=== PATIENT | female | born 1955 | race Caucasian/White ===

== ENCOUNTER → 2018-03-08 09:46 | Outpatient (CLI) | payer BC, SELFPAY ==
--- NOTE | 2018-03-08 09:50 | MM_ITS ---
MM Dig screening mamm BI w/CAD ORDERING PHYSICIAN : Heidi Rivers PATIENT AGE: 62 years GENDER: Female COMPARISON: October 2012, December 2014 INDICATION: ITS.REASON: SCREENING. 62-year-old. No hormones no new complaints noncontributory family history TECHNIQUE: Standard CC and MLO images were obtained. R2 CAD reviewed. FINDINGS: Fairly low-density breast bilaterally with no dominant mass nor suspicious calcifications in either breast. Mild asymmetry. Area of minimal fibroglandular density upper-outer quadrant left breast appear similar and stable. RIGHT BREAST: No new findings. Minimal density upper-outer quadrant right LEFT BREAST: Stable area upper outer quadrant left breast. No change since 2012 IMPRESSION: Stable bilateral mammogram. No significant new areas concern. Bilateral follow-up one year recommended BI-RADS Category: 2 Benign Finding(s) RECOMMENDED FOLLOW-UP: 1YR 1 YEAR FOLLOW-UP (A letter has been sent to the patient regarding results of the study.)
== END ==
PROVIDERS: PCP Nurse Practitioner Family; Visit Provider Nurse Practitioner Family
DX: Z12.31 Encounter for screening mammogram for malignant neoplasm of breast (principal)
CPT/HCPCS: 77067

== ENCOUNTER → 2019-05-08 11:20 | Outpatient (CLI) | payer BC, SELFPAY ==
[2019-05-08 12:40] VITALS: PULSE 82; PULSE 84
== END ==
PROVIDERS: PCP Internal Medicine Adolescent Medicine; Visit Provider Internal Medicine Adolescent Medicine
DX: J44.9 Chronic obstructive pulmonary disease, unspecified (principal)
CPT/HCPCS: 94060; 94640; 94726; 94729

== ENCOUNTER → 2019-06-19 14:03 | Outpatient (CLI) | payer BC, SELFPAY ==
--- NOTE | 2019-06-19 14:06 | CT_ITS ---
PROCEDURE: CT LUNG SCREENING CLINICAL INDICATION: CURRENT TOBACCO USE Forty pack-year smoking history, asymptomatic COMPARISON: CXR CHEST(2 VIEWS-NOT PORTABLE) from 10/31/2015 TECHNIQUE: The exam was performed on a GE Light Speed [address] scanner using for lung cancer mGy CTDI. A low dose helical CT CHEST was performed on a multi-detector scanner. All CT scans at the facility use one or more dose reduction, viz: automated exposure control, ma/kV adjustment per patient size (including targeted exams where dose is matched to indication, i.e. head), or iterative reconstruction technique. The LDCT was performed in a facility that meets the criteria for the screening program. Data regarding this exam was submitted to ACR which is an approved registry. The order for this exam indicates that it came as a result of a lung cancer screening counseling shard decision-making visit that included all the elements required of such a visit including smoking cessation. The radiologist interpreting this exam meets the CMS criteria for the LDCT lung cancer screening program. The exam is reported using the Lung-RADS classification scale and reported to the ACR registry. NOTE: This study was performed for the specific purposes of lung cancer screening and is not an alternative to diagnostic chest CT. RADIATION DOSE: CTDI vol(CT dose Index-volume) = 2.90mG DLP (Dose Length Product) = 107.33 mGcm FINDINGS: COPD. There is a 1.8 by 1.8 by 1.5 cm spiculated nodule within the peripheral aspect of the left upper lobe posterior laterally. There are few spiculations extending to the pleural surface. This is suspicious for neoplasm.. This is in the apical posterior segment of the left upper lobe. No other lesions are evident. Other findings include coronary artery calcifications. There are few small mediastinal lymph nodes. No dominant adenopathy in the mediastinum or hilum. No acute bony findings. Upper abdominal images are unremarkable. IMPRESSION: Lung rads category 4 X, suspicious for malignancy Suggest PET-CT or tissue sampling for further evaluation. A small bronchus is noted to lead to this lesion and may be accessible for biopsy by bronchoscopy. Coronary artery disease Dictated by: Giancarlo Sadler MD 06/26/2019 10:38 Electronically signed by Giancarlo Sadler MD in [place] 06/26/2019 10:38
== END ==
PROVIDERS: PCP Internal Medicine Adolescent Medicine; Visit Provider Internal Medicine Adolescent Medicine
DX: Z87.891 Personal history of nicotine dependence (principal); Z12.2 Encounter for screening for malignant neoplasm of respiratory organs

== ENCOUNTER → 2019-06-26 14:32 | Outpatient (POV) | payer BC, SELFPAY | PROVIDERS: Visit Provider Specialist | DX: R20.2 Paresthesia of skin (principal); R20.0 Anesthesia of skin; M79.641 Pain in right hand | CPT/HCPCS: 95886; 95908 ==

== ENCOUNTER → 2019-11-16 13:24 | Outpatient (POV) | payer BC, SELFPAY ==
[2019-11-16 13:36] VITALS: BP 155/80; PULSE 97; RESP 18; O2SAT 98; BMI 30.2
--- NOTE | 2019-11-16 14:39 | HMH.PMCON ---
Assessment and Plan (1) Low back pain Current visit: Yes Status: Chronic Category: Medical Code(s): M54.5 - Low back pain (2) Lumbar radiculopathy Current visit: Yes Status: Chronic Category: Medical Code(s): M54.16 - Radiculopathy, lumbar region - Assessment and plan all Dx Assessment and Plan for all problems:: The patient has had this pain for quite some time. She has tried conservative therapies and failed. She has undergone physical therapy for greater than 6 weeks most notably within the last month. She continues with home stretching and chiropractic therapy. She uses ice and heat therapies and wxro-mep-zyiijrv anti-inflammatories. At this point I do think the patient would benefit from an MRI patient would like to proceed with imaging of her lumbar spine before proceeding with any type of injective therapy. We will schedule her for an MRI of her lumbar spine and see her back in the clinic afterwards to reassess her symptoms. Patient does not want to proceed with any type of injective therapy until she undergoes an MRI to determine the cause of her pain. We will see her back in the clinic afterwards to reassess her symptoms. She has been instructed to contact the clinic if she has any concerns before her next appointment. The patient and I specifically discussed risk factors for COVID19. These risks include, but are not limited to age greater than 60, heart or lung disease, diabetes, immunosuppression, and travel. We also discussed NSAIDs may worsen COVID19 infection or symptoms. Patient should not use NSAIDs to treat COVID19 signs or symptoms. Patient was also informed that any type of corticosteroid of any form (oral or injection) will decrease the patient's immune system response and may increase the likelihood of COVID19 infection [address] symptoms[address] Mckinley has reviewed this note and agrees with this plan of care. This note was dictated using voice recognition software and make contain errors or omissions. HPI - Data of Consult Patient: new to practice Consult date: 11/16/19 Requesting Physician: Priyanka Tadeo APRN Primary Care Provider: Jordy Akers MD - Consult Narrative Reason for consult: Back pain, intermittent leg pain History of present illness: Ms. Yeh is a 63 year old female who presents today for consultation for bilateral low back pain with intermittent radiation into her left leg. Patient says she has had this pain for greater than 30 years. Her pain is worse with standing and walking and sitting and laying down. Patient says that she was told by her primary care provider that it is SI joint related. Patient says that she does not feel that that is contributing to her pain. She has had chronic low back pain that has progressively worsened. She was told in the past that she has degenerative disc disease of her lumbar spine, however, she has not had any recent imaging. She is tried to get an MRI in the past and has been denied by her insurance. She says that the pain does intermittently radiate into her left leg causing worsening pain. Patient has had physical therapy over the last 6 weeks and has not gotten relief. She does use ice and heat therapies. She is also tried anti-inflammatories with no relief. Patient is currently seeing a chiropractor and performs home stretching programs. She rates her pain a 7 out of 10 today. CC: Priyanka Tadeo APRN [facility] History I have reviewed the patient's past medical history: Yes Medical History: Reports:: Coronary Artery Disease, Diabetes Mellitus Type 2, Gastroesophageal Reflux Disease(GERD), Hyperlipidemia, Hypertension, Lung Disease, Myocardial Infarction, Transient Ischemic Attacks (TIA) Denies:: Cancer, Diabetes Mellitus Type 1, Internal Pacemaker, MRSA, Seizures *Have you ever received a pneumonia vaccine?: Yes *Have you received a flu vaccine this season?: Yes Other Medical History: Reports: Arthritis Other Surgeries: Yes: Angioplast
== END ==
PROVIDERS: PCP Internal Medicine Adolescent Medicine; Visit Provider Clinical Nurse Specialist Family Health
DX: M54.5 Low back pain (principal); M54.16 Radiculopathy, lumbar region
CPT/HCPCS: 99202

== ENCOUNTER → 2019-12-06 10:45 | Outpatient (CLI) | payer BC, SELFPAY ==
--- NOTE | 2019-12-06 10:59 | MR_ITS ---
PROCEDURE: MR LUMBAR SPINE WO CON CLINICAL INDICATION: BACK PAIN LBP XYRS. INTERMITTENT LT LEG PAIN, NUMBNESS, AND TINGLING. NO PRIOR. COMPARISON: No exams were available for comparison TECHNIQUE: Standard multiplanar multiecho sequences are performed without contrast. 3-D MIP and myelographic images are also rendered and reviewed FINDINGS: The spinal cord ends at the L1 level. L1-L2: Unremarkable. L2-L3: Unremarkable. L3-L4: Mild facet and ligamentum hypertrophy with mild bilateral lateral recess and foraminal narrowing. L4-5: Unremarkable. L5-S1: There is degenerative disc disease with grade 1 spondylolisthesis of L5 on S1 with anterior listhesis of L5 of 7 mm. There is prominent facet hypertrophic changes. There is moderate to severe bilateral foraminal narrowing from the spondylolisthesis and facet hypertrophy. No extruded herniated disc or bony canal stenosis. There are small right renal cortical cyst noted. IMPRESSION: 1. There is degenerative disc disease at L5-S1 with grade 1 spondylolisthesis of L5 on S1 with anterior listhesis of L5 of 7 mm. There is prominent facet hypertrophic changes with moderate to severe bilateral foraminal narrowing from the spondylolisthesis and facet hypertrophy. 2. No extruded herniated disc or canal stenosis Dictated by: Giancarlo Sadler MD 12/07/2019 11:34 Electronically signed by Giancarlo Sadler MD in [place] 12/07/2019 11:34
== END ==
PROVIDERS: PCP Internal Medicine Adolescent Medicine; Visit Provider Clinical Nurse Specialist Family Health
DX: M54.5 Low back pain (principal)
CPT/HCPCS: 72148; 76376

== ENCOUNTER → 2019-12-14 10:40 | Outpatient (POV) | payer BC, SELFPAY ==
[2019-12-14 11:26] VITALS: BP 138/75; PULSE 95; RESP 18; TEMP 36.8; O2SAT 98; BMI 30.2
--- NOTE | 2019-12-14 11:49 | HMH.PAINSOAP ---
[facility] Pain Management SOAP Note Subjective:: Patient is a pleasant 64-year-old white female who presents today for follow-up after an MRI of her lumbar spine. She has been treated for low back pain with lumbar radiculopathy symptoms. Patient says she is tried and failed conservative therapies of physical therapy greater than 6 weeks along with a continued home stretching program and currently chiropractic therapy. Patient's pain is primarily in her low back with intermittent radiation into her left leg. This pain has been going on for greater than 30 years. Her pain is worse with standing and walking and sitting and laying down. She does say that she was told by her primary care provider that it is SI joint related, however, the patient is unsure that this is what is going on. She did request an MRI. We did perform the MRI. Patient I had a long discussion reviewing the MRI, patient says the only time she gets relief is if she leans forward. She does have spondylolisthesis and facet issues noted in her MRI, however, the patient says that she gets relief rather than pain with flexion and extension at her waist. Patient also is noted to have some foraminal narrowing on her MRI at L5-S1. Patient would like to try an epidural to see if this gives her relief. She does report that she did see the information regarding a mild procedure and would like to discuss a possible epidurogram at that time as well for determination of any spinal stenosis that may be treated Dr. mack. Does rate her pain a 10 out of 10 today. Review of Systems General: No recent weight changes, no fever, no sleep disturbances Respiratory: No cough, no shortness of air, no recurring pulmonary infections Cardiovascular/peripheral vascular: No chest pain, no palpitations, no edema, no shortness of breath Gastrointestinal: No new onset incontinence, normal bowel movements reported Genitourinary: No new onset incontinence Musculoskeletal: Low back pain, intermittent left leg pain Psychiatric: Normal mood/affect Neurological: [Denies weakness in extremities], [denies balance issues] Objective:: Physical exam General: Alert and oriented x3, no acute distress, pleasant and cooperative, [on room air] Lungs: Respirations even and unlabored, symmetrical chest expansion Eyes: PERRL Musculoskeletal: Flexion and extension of bar spine somewhat guarded secondary to pain, deep tendon reflexes normal, strength in upper and lower extremities [5/5], [abnormal gait noted] Neurological: Speech clear, road tester equal, no gross sensory deficit Assessment:: Degenerative disc disease lumbar spine with lumbar radiculopathy symptoms, lumbar spondylolisthesis, facet arthropathy Plan:: We will schedule the patient for a lumbar epidural steroid injection at L5-S1 with an epidurogram. She does take an aspirin 325 mg tablet p.o. daily. Otherwise, she is not on any anticoagulation therapy. We will see her back in the clinic after her injection to reassess her symptoms. She has been instructed to contact clinic if she has any concerns for next appointment. The patient and I specifically discussed risk factors for COVID19. These risks include, but are not limited to age greater than 60, heart or lung disease, diabetes, immunosuppression, and travel. We also discussed NSAIDs may worsen COVID19 infection or symptoms. Patient should not use NSAIDs to treat COVID19 signs or symptoms. Patient was also informed that any type of corticosteroid of any form (oral or injection) will decrease the patient's immune system response and may increase the likelihood of COVID19 [address] symptoms[address] Mckinley has reviewed this note and agrees with this plan of care. This note was dictated using voice recognition software and make contain errors or omissions. [facility] History I have reviewed the patient's past medical history: Yes Medical History: Reports:: Coronary Artery Disease, Diabetes Mellitus Type 2, Gas
== END ==
PROVIDERS: PCP Family Medicine; Visit Provider Clinical Nurse Specialist Family Health
DX: M51.16 Intervertebral disc disorders with radiculopathy, lumbar region (principal); M47.896 Other spondylosis, lumbar region; M12.88 Other specific arthropathies, not elsewhere classified, other specified site
CPT/HCPCS: 99212

== ENCOUNTER 2019-12-22 13:50 | Day surgery (SDC) | payer BC, SELFPAY ==
[2019-12-22 14:13] VITALS: BP 127/76; PULSE 94; RESP 18; TEMP 36.1; O2SAT 96; BMI 30.2
[2019-12-22 14:33] VITALS: BP 142/87; PULSE 89; RESP 18
[2019-12-22 14:36] VITALS: BP 142/88; PULSE 85; RESP 18; O2SAT 98
--- NOTE | 2019-12-22 14:42 | HMH.PMPROC ---
- Procedure Date: 12/22/19 Time: 14:42 Anesthesiologist:: Serafin Mckinley MD Complications:: None Pre-procedure Diagnosis:: Degenerative disc disease of lumbar spine with lumbar radiculopathy symptoms and spinal stenosis with neurogenic claudication symptoms Post-procedure Diagnosis:: Same Indications for Procedure:: This patient is a pleasant 64-year-old white female who we are treating for low back pain with lumbar radiculopathy symptoms. Based on MRI she does have significant spinal stenosis with ligamentum flavum hypertrophy. We will do a lumbar pleural steroid injection with epidurogram to assess levels of stenosis and help her with her pain symptoms. Procedure Details:: Lumbar epidural steroid injection under fluoroscopy Informed consent was obtained and the risk and benefits of the procedure was explained to the patient. The patient was taken to the procedure room. The patient was placed prone on the procedure table. The patient was prepped and draped in sterile fashion. C-arm fluoroscopy was used to view the lumbar spine. Skin and subcutaneous tissues were anesthetized using lidocaine. I placed an 18-gauge epidural needle and advanced into the L4-L5 interspace using fluoroscopic guidance and [id number] to air. After confirmation of needle placement in the epidural space with dye I injected 2 mL of lidocaine 1.5% with Depo-Medrol 80 mg. Patient tolerated the procedure well with no complications. Plan and Disposition:: Based on epidurogram she does have significant stenosis at L3-L4 and L4-L5. It is worst at L3-L4. We will seek approval and plan on minimally invasive lumbar decompression of L3-L4 and L4-L5. We will give her information on this today.
[2019-12-22 14:56] VITALS: BP 136/73; PULSE 87; RESP 20; O2SAT 96
== END 2019-12-22 14:57 | disposition home or self-care (01) ==
LOC: SC.PAINP 13:50
PROVIDERS: PCP Family Medicine; Visit Provider Anesthesiology
DX: M51.16 Intervertebral disc disorders with radiculopathy, lumbar region (principal); M48.062 Spinal stenosis, lumbar region with neurogenic claudication; I10 Essential (primary) hypertension; J44.9 Chronic obstructive pulmonary disease, unspecified; G43.909 Migraine, unspecified, not intractable, without status migrainosus; Z90.49 Acquired absence of other specified parts of digestive tract; Z85.118 Personal history of other malignant neoplasm of bronchus and lung; Z90.2 Acquired absence of lung [part of]; Z86.79 Personal history of other diseases of the circulatory system; Z88.6 Allergy status to analgesic agent; Z88.1 Allergy status to other antibiotic agents; Z88.8 Allergy status to other drugs, medicaments and biological substances; Z88.5 Allergy status to narcotic agent
CPT/HCPCS: 62323; J1040; Q9966

== ENCOUNTER → 2020-02-02 16:34 | Outpatient (CLI) | payer BC, SELFPAY ==
--- NOTE | 2020-02-02 16:43 | CT_ITS ---
PROCEDURE: CT ABDOMEN PELVIS WO/W CON Referring Doctor: Jordy Akers Patient Age:64Y CLINICAL INDICATION: LLQ PAIN 1 week 1 History of lung cancer diagnosed on May [address] chest COMPARISON: CR CXR CHEST(2 VIEWS-NOT PORTABLE) from 10/31/[address] LUNG SCREENING from 06/19/2019 MR MR LUMBAR SPINE WO CON from 12/06/2019 TECHNIQUE: Pre and post IV contrast imaging performed IV Contrast: 75ML OPTIRAY 350 Oral Contrast 20ml Gastroview Helical axial images obtained with sagittal and coronal reformats. All CT scans at the facility use one or more dose reduction, viz: automated exposure control, ma/kV adjustment per patient size (including targeted exams where dose is matched to indication, i.e. head), or iterative reconstruction technique. FINDINGS: Lower thorax: Linear density at the medial left base which likely reflects a combination of pleural and parenchymal scarring with atelectasis. If the patient has had a lobectomy I suspect is related the postsurgical changes left chest Heart normal size ABDOMEN: Liver: No masses or biliary dilatation. Gallbladder: Nondistended. No radio opaque stones. Common duct unremarkable Pancreas: No masses or peripancreatic fluid collections. Spleen: unremarkable Adrenals: Suspect small subtle 14.5 x 9 mm left adrenal nodule appears to be developing at the superior medial limb of left adrenal. (Axial images 28 postcontrast, 24 pre contrast). Right adrenal unremarkable and stable Kidneys/ureters: . No renal calculi/no urinary tract obstruction. Small low-density areas at both kidneys are most compatible with small cysts: . Right kidney: Small cysts on right-most evident is a 11 mm cyst mid to lower right kidney; tiny less than 6 mm cyst posterior lower pole. Tiny 5 mm cyst anterior upper pole Left kidney. Small cysts, most notable 11 mm cyst posterior cortex upper portion but tiny less than 5 mm cyst posterior midportion. Generous extra renal pelvis bilaterally. Ureters unremarkable PELVIS:. Uterus normal size. No adnexal masses left ovary normal size in visualized 2.5 cm. Slightly generous pelvic veins but nonspecific. Bladder: Nondistended. No obvious stones or masses. . GI tract. ------- Fairly rapid passage of enteric contrast, to the level of the proximal sigmoid colon Stomach and small bowel unremarkable. Terminal ileum appears normal. Appendix is been removed Large bowel:. Colonic diverticulosis most evident at sigmoid colon followed by descending colon. No good acute diverticulitis. Of there are some large more prominent diverticulum along posterior aspect the descending colon with vessels and structures yielding appearance of upper normal stranding here posteriorly-of but favor normal with no good evidence of diverticulitis. -- Peritoneum: No abnormal fluid collections. No obvious inflammatory changes. No free air. Lymph nodes: No enlarged lymph nodes apparent.. Scattered tiny retroperitoneal and pelvic nodes but but no enlarged nodes Vasculature: No evidence of abdominal aortic aneurysm. Diffuse the atherosclerotic calcification aorta and iliac vessels;. Also notable atherosclerotic calcification at origin of left renal artery more so than right but a calcification throughout the splenic artery also noted. Coronary artery calcifications of also noted Bones: No acute fracture.. No osseous lesions identified bilateral spondylolysis with generous grade 1 spondylolisthesis L5 on S1. Degenerative disc and facet changes at this level SOFT TISSUES: Within the subcutaneous fat left lower quadrant, located just anterior to the left inguinal region is a nodule with associated surrounding stranding and inflammation. This u
[2020-02-02 16:52] LABS: Blood Urea Nitrogen 24 mg/dl (7-17); Estimated Glomerular Filt Rate 63 ml/min (>60); GFR (African American) 76 ML/MIN (>60)
== END ==
PROVIDERS: Visit Provider Internal Medicine Adolescent Medicine
DX: R10.32 Left lower quadrant pain (principal)
CPT/HCPCS: 36415; 74178; 82565; 84520; Q9967

== ENCOUNTER → 2020-02-07 13:23 | Outpatient (CLI) | payer BC, SELFPAY ==
[2020-02-07 13:52] LABS: Basophils # 0.1 K/mm3 (0-0.2); Basophils % 0.8 % (0.1-2.0); Eosinophils # 0.2 K/mm3 (0.0-0.4); Eosinophils % 1.8 % (0.1-12.0); Hematocrit 33.7 % (37.0-47.0); Lymphocytes # 2.4 K/mm3 (0.7-4.5); Lymphocytes % 23.8 % (10-50); Mean Corpuscular HGB Conc 32.8 g/dL (31.8-35.4); Mean Corpuscular Hemoglobin 26.8 pg (27.0-31.2); Mean Corpuscular Volume 81.8 fl (81-99); Mean Platelet Volume 8.1 fl (7.4-10.4); Monocytes # 0.6 K/mm3 (0.1-1.0); Monocytes % 5.6 % (1.7-9.3); Neutrophils # 6.8 K/mm3 (1.8-7.8); Neutrophils % 68.1 % (37.0-80.0); Platelet Count 297 K/mm3 (142-424); Red Blood Count 4.12 M/mm3 (4.20-5.40); Red Cell Distribution Width 16.2 % (11.5-17.5)
[2020-02-07 14:55] LABS: Chloride 103 mmol/L (98-107); Sodium 140 mmol/L (136-145)
[2020-02-07 14:59] LABS: Blood Urea Nitrogen 22 mg/dl (7-17); Calcium 9.6 mg/dl (8.4-10.2); Carbon Dioxide 28 mmol/L (22.0-30.0); Estimated Glomerular Filt Rate 56 ml/min (>60); GFR (African American) 68 ML/MIN (>60); Glucose 115 mg/dl (74-100)
[2020-02-07 17:44] LABS: Coronavirus 19 IgG Antibody Negative (Negative); Coronavirus 19 IgM Antibody Negative (Negative)
== END ==
PROVIDERS: Visit Provider Surgery
DX: R19.00 Intra-abdominal and pelvic swelling, mass and lump, unspecified site (principal); R22.2 Localized swelling, mass and lump, trunk
CPT/HCPCS: 36415; 80048; 85025; 86328

== ENCOUNTER 2020-02-09 09:41 | Day surgery (SDC) | payer BC, SELFPAY ==
[2020-02-08 13:08] VITALS: BMI 31.1
[2020-02-09] VITALS (12 sets, daily range): BP systolic 103–139; BP diastolic 52–78; PULSE 75–91; RESP 16–21; TEMP 36.4–36.8; O2SAT 92–96
[2020-02-09 10:19] LABS: POC Glucose,Bedside 118 (70-110)
--- NOTE | 2020-02-09 12:22 | P.OP_ITS ---
Date of procedure: 02/09/20 Pre-op Diagnosis:: Left lower abdominal wall mass (1.8 cm) Post-op Diagnosis:: Same Procedure performed:: Excision of 1.8 cm left lower abdominal wall mass Surgeon:: Bello Oseguera MD CERTIFIED DRIVER EXAMINER:: Robin Alexander Anesthesia: LMA Estimated blood loss (mL): 5 Operative findings:: Somewhat irregular firm mass in subcutaneous adipose tissue on the left lower abdominal wall Operative note:: After informed consent was obtained the patient was taken to the operating room and placed in the supine position. General anesthesia was induced and her abdomen was prepped and draped in a sterile fashion. After infiltration of local anesthetic an incision was made over the lesion. A combination of sharp dissection, electrocautery, and blunt dissection was utilized to dissect through the deeper subcutaneous adipose tissue. A somewhat irregular firm mass was excised from surrounding tissue and passed off for pathologic evaluation. Electrocautery was utilized to achieve hemostasis. The wound was thoroughly irrigated. The skin was then reapproximated utilizing 4-0 Monocryl in a running subcuticular fashion. Steri-Strips followed by a sterile compression dressing was applied. She was then transferred to recovery in stable condition after removal of her laryngeal mask airway. Condition: stable Disposition: PACU Specimens:: Left lower abdominal wall mass Complications:: No immediate
--- NOTE | 2020-02-09 12:28 | HMH.ANESCL ---
[facility] Anesthesia Checklist - Patient Identification Patient Identification: Arm Band, Verbal (Name & ) - Structural Data Admitted From: Home Planned Operative Procedure/s: ex ab wall mass Consent for Planned Operative Procedure(s) Verified: Yes Verified Documents: History and Physical - NPO Status Verified Time NPO: 00:00 - Chart Verification Results Verified: CBC, BMP - Additional verifications Patient : No Anesthesia Reactions: No Hx Blood Transfusions: No Blood Transfusion Reaction: No Cephalosporin Allergy: No Previous Colonoscopy: Yes - Cardiovascular Assessment Heart Sounds: S1 & S2 Pulse Strength: Baseline Pulse Rhythm: Regular Peripheral Edema: No - Airway Assessment C-Spine Mobility Assessed: Yes TMJ Mobility Assessed: Yes Dentition: Good Dentition - Neurological Assessment Level of Consciousness: Awake, Alert, Appropriate Hx Seizures: No Numbness or tingling in extremities: No - Anesthesia Plan Anesthesia Risk discussed: Yes Anesthesia Plan: Verified ASA Class: III Anesthesia Type: General [facility] History I have reviewed the patient's past medical history: Yes Medical History: Reports:: Cancer (adenocarcinoma lung), Coronary Artery Disease, Diabetes Mellitus Type 2, Gastroesophageal Reflux Disease(GERD), Hyperlipidemia, Hypertension, Lung Disease, Myocardial Infarction, Transient Ischemic Attacks (TIA) Denies:: Diabetes Mellitus Type 1, Internal Pacemaker, MRSA, Seizures *Have you ever received a pneumonia vaccine?: No *Have you received a flu vaccine this season?: No Other Medical History: Reports: Arthritis. Denies: Blood Transfusion Reaction Anesthesia experience/problems:: none Other Surgeries: Yes: Angioplasty, Appendectomy, Cardiac Catheterization, Colonoscopy. No: Pacemaker Amputation: No Fractures: No - *Social History Last grade of school completed: High school graduate Smoking Status: Former smoker Tobacco Type: cigarettes # Packs/Day (cigarettes): 1 Smoking End Date: 07/23/2019 Alcohol Intake: never Substance Use Type: other *Occupational Status:: retired Housing: house Household Members: spouse *Travel in the last 8 weeks: None Family Hx:: Unable to obtain
--- NOTE | 2020-02-09 12:29 | P.PN_ITS ---
[facility] Anesthesia Record Part I Intake, IV Amount: 400 Estimated blood loss (mL): 5 Urine output (mL): 0 Blood Products used (#): none Blood Pressure: 105/66 SaO2: 92 Pulse Rate: 83 Respiratory Rate: 20 Temperature: 97.8 F Patient is:: Drowsy, Nasal O2 Stable to PACU at:: 12:25
--- NOTE | 2020-02-09 13:24 | HMH.ANESII ---
[facility] Anesthesia Record Part II Discharge Time: 12:55 Destination: Surgical Day Care (OP Surgery) PACU nurse assessment reviewed?: Yes Patient Condition:: Good Anesthesia Complications:: None Swallowing reflex intact?: Yes Cyanosis?: No Blood Pressure: 113/68 Pulse Rate: 75 Temperature: 98.3 F Mental Status: Alert & Oriented Pain level:: 3 Nausea and/or vomitting:: None Intake, IV Amount: 25
== END 2020-02-09 13:45 | disposition home or self-care (01) ==
LOC: OR 09:43
PROVIDERS: PCP Internal Medicine Adolescent Medicine; Visit Provider Surgery
PROC: (CPT 22902; principal; 2020-02-09 11:00)
DX: C79.2 Secondary malignant neoplasm of skin (principal); C34.90 Malignant neoplasm of unspecified part of unspecified bronchus or lung; E11.9 Type 2 diabetes mellitus without complications; I25.10 Atherosclerotic heart disease of native coronary artery without angina pectoris; K21.9 Gastro-esophageal reflux disease without esophagitis; E78.5 Hyperlipidemia, unspecified; I10 Essential (primary) hypertension; I25.2 Old myocardial infarction; Z86.73 Personal history of transient ischemic attack (TIA), and cerebral infarction without residual deficits; M19.90 Unspecified osteoarthritis, unspecified site; Z90.49 Acquired absence of other specified parts of digestive tract; Z87.891 Personal history of nicotine dependence
CPT/HCPCS: 22902; 82962; 96374; J0131; J2405

== ENCOUNTER → 2020-06-26 09:10 | Outpatient (CLI) | payer BC, SELFPAY ==
[2020-06-26 10:14] LABS: Chloride 101 mmol/L (98-107); Sodium 139 mmol/L (136-145)
[2020-06-26 10:15] LABS: Potassium 4.4 mmoL/L (3.5-5.1)
[2020-06-26 10:17] LABS: Blood Urea Nitrogen 21 mg/dl (7-17); Estimated Glomerular Filt Rate 56 ml/min (>60); GFR (African American) 68 ML/MIN (>60)
[2020-06-26 10:18] LABS: Anion Gap 13.4 mEq/L (5-15); Calcium 10.2 mg/dl (8.4-10.2); Carbon Dioxide 29 mmol/L (22.0-30.0); Glucose 126 mg/dl (74-100)
[2020-06-26 10:35] LABS: Coronavirus 19 IgG Antibody Positive (Negative); Coronavirus 19 IgM Antibody Negative (Negative)
[2020-06-26 11:52] LABS: Basophils # 0.1 K/mm3 (0-0.2); Basophils % 0.8 % (0.1-2.0); Eosinophils # 0.2 K/mm3 (0.0-0.4); Eosinophils % 2.7 % (0.1-12.0); Hemoglobin 11.5 g/dL (12.2-16.2); Lymphocytes # 1.9 K/mm3 (0.7-4.5); Lymphocytes % 25.3 % (10-50); Mean Corpuscular HGB Conc 30.2 g/dL (31.8-35.4); Mean Corpuscular Hemoglobin 25.9 pg (27.0-31.2); Mean Corpuscular Volume 85.7 fl (81-99); Mean Platelet Volume 9.2 fl (7.4-10.4); Monocytes # 0.5 K/mm3 (0.1-1.0); Monocytes % 6.2 % (1.7-9.3); Neutrophils % 64.9 % (37.0-80.0); Platelet Count 344 K/mm3 (142-424); Red Blood Count 4.43 M/mm3 (4.20-5.40); Red Cell Distribution Width 16.1 % (11.5-17.5); White Blood Count 7.6 K/mm3 (4.8-10.8)
== END ==
PROVIDERS: Visit Provider Surgery
DX: Z01.812 Encounter for preprocedural laboratory examination (principal); C79.89 Secondary malignant neoplasm of other specified sites; Z20.822 Contact with and (suspected) exposure to COVID-19; Z86.16 Personal history of COVID-19
CPT/HCPCS: 36415; 80048; 85025; 86328

== ENCOUNTER 2020-06-28 10:32 | Day surgery (SDC) | payer BC, SELFPAY ==
[2020-06-25 09:49] VITALS: BMI 32.1
[2020-06-28] VITALS (11 sets, daily range): BP systolic 102–126; BP diastolic 67–75; PULSE 93–114; RESP 15–20; TEMP 36.6–37; O2SAT 92–98
[2020-06-28 11:12] LABS: POC Glucose,Bedside 110 (70-110)
--- NOTE | 2020-06-28 12:19 | HMH.OPNOTE ---
Date of procedure: 06/28/20 Pre-op Diagnosis:: Metastatic lung cancer Abdominal wall mass Post-op Diagnosis:: Same Procedure performed:: Excision of left lower abdominal wall mass (greater than 4 cm) Surgeon:: Bello Oseguera MD Anesthesia: LMA Estimated blood loss (mL): 10 Operative findings:: Lesion excised in toto Operative note:: After informed consent was obtained the patient was taken to the operating room and placed in the supine position. General anesthesia with laryngeal mask airway was achieved. Her lower abdomen was prepped and draped in a sterile fashion. After infiltration local anesthetic an elliptical incision was made around the palpable lesion. A combination of scalpel and electrocautery was utilized to transect around the lesion. It was excised in toto and passed off for pathologic evaluation. Electrocautery was utilized to achieve hemostasis. Skin was reapproximated with 4-0 nylon. Dressings were applied and the patient was transferred to recovery in stable condition. Condition: stable Disposition: PACU Specimens:: Left lower abdominal wall mass Complications:: No immediate
--- NOTE | 2020-06-28 12:25 | HMH.ANESCL ---
[facility] Anesthesia Checklist - Patient Identification Patient Identification: Arm Band - Structural Data Admitted From: Home Planned Operative Procedure/s: exc of abdominal lesion Consent for Planned Operative Procedure(s) Verified: Yes - Chart Verification Results Verified: None - Additional verifications Anesthesia Reactions: No Hx Blood Transfusions: No Blood Transfusion Reaction: No - Airway Assessment C-Spine Mobility Assessed: Yes - Anesthesia Plan Anesthesia Risk discussed: Yes Anesthesia Plan: Verified ASA Class: III Anesthesia Type: General [facility] History I have reviewed the patient's past medical history: Yes Medical History: Reports:: Cancer (LUNG), Coronary Artery Disease, Diabetes Mellitus Type 2, Gastroesophageal Reflux Disease(GERD), Hyperlipidemia, Hypertension, Lung Disease, Myocardial Infarction, Transient Ischemic Attacks (TIA) Denies:: Diabetes Mellitus Type 1, Internal Pacemaker, MRSA, Seizures *Have you ever received a pneumonia vaccine?: No *Have you received a flu vaccine this season?: Yes Other Medical History: Reports: Arthritis. Denies: Blood Transfusion Reaction Anesthesia experience/problems:: none Other Surgeries: Yes: Angioplasty, Appendectomy, Cardiac Catheterization, Colonoscopy. No: Pacemaker Amputation: No Fractures: No - *Social History Last grade of school completed: High school graduate Smoking Status: Former smoker Tobacco Type: cigarettes # Packs/Day (cigarettes): 1 Alcohol Intake: never Substance Use Type: denies use, other *Occupational Status:: retired Housing: house Household Members: spouse *Travel in the last 8 weeks: None Family Hx:: Unable to obtain
--- NOTE | 2020-06-28 12:27 | P.PN_ITS ---
[facility] Anesthesia Record Part I Intake, IV Amount: 750 Estimated blood loss (mL): 10 Urine output (mL): 0 Blood Products used (#): none Blood Pressure: 126/72 SaO2: 97 Pulse Rate: 100 Respiratory Rate: 20 Temperature: 98.5 F Patient is:: Drowsy Stable to PACU at:: 12:28
--- NOTE | 2020-06-28 13:14 | PC.NURSE ---
encouraged cough and deep breathe
--- NOTE | 2020-06-28 15:14 | P.PN_ITS ---
[facility] [place] Anesthesia Record Part II Discharge Time: 12:54 Destination: Surgical Day Care (OP Surgery) PACU nurse assessment reviewed?: Yes Patient Condition:: Good Anesthesia Complications:: None Swallowing reflex intact?: Yes Cyanosis?: No Blood Pressure: 113/70 Pulse Rate: 94 Temperature: 97.8 F Mental Status: Alert & Oriented Pain level:: 3 Nausea and/or vomitting:: None Intake, IV Amount: 0
== END 2020-06-28 13:40 | disposition home or self-care (01) ==
LOC: OR 10:33
PROVIDERS: PCP Internal Medicine Adolescent Medicine; Visit Provider Surgery
PROC: (CPT 11606; principal; 2020-06-28 12:00)
DX: C79.2 Secondary malignant neoplasm of skin (principal); C34.90 Malignant neoplasm of unspecified part of unspecified bronchus or lung; I25.10 Atherosclerotic heart disease of native coronary artery without angina pectoris; E11.9 Type 2 diabetes mellitus without complications; K21.9 Gastro-esophageal reflux disease without esophagitis; E78.5 Hyperlipidemia, unspecified; I10 Essential (primary) hypertension; I25.2 Old myocardial infarction; Z86.73 Personal history of transient ischemic attack (TIA), and cerebral infarction without residual deficits; Z87.891 Personal history of nicotine dependence; Z88.6 Allergy status to analgesic agent; Z88.1 Allergy status to other antibiotic agents; Z88.8 Allergy status to other drugs, medicaments and biological substances
CPT/HCPCS: 11606; 82962; 96374; J2405

== ENCOUNTER → 2020-07-31 11:05 | Outpatient (CLI) | payer BC, SELFPAY ==
[2020-07-31 11:31] LABS: Blood Urea Nitrogen 38 mg/dl (7-17); Estimated Glomerular Filt Rate 45 ml/min (>60); GFR (African American) 55 ML/MIN (>60)
== END ==
PROVIDERS: PCP Internal Medicine Adolescent Medicine; Visit Provider Internal Medicine Hematology & Oncology
DX: Z01.818 Encounter for other preprocedural examination (principal); C34.12 Malignant neoplasm of upper lobe, left bronchus or lung; C79.72 Secondary malignant neoplasm of left adrenal gland
CPT/HCPCS: 36415; 82565; 84520

== ENCOUNTER → 2020-08-01 09:39 | Outpatient (CLI) | payer BC, SELFPAY ==
--- NOTE | 2020-08-01 09:43 | MR_ITS ---
PROCEDURE: MR HEAD/BRAIN WO/W CON CLINICAL INDICATION: HX OF LUNG AND ADRENAL CA Evaluate for metastatic disease COMPARISON: CT CT ABDOMEN PELVIS WO/W CON from 02/02/2020 TECHNIQUE: Routine multiplanar multi echo sequences are performed without gadolinium enhancement. FINDINGS: No midline shift, mass effect, intracranial hemorrhage, or hydrocephalus is evident. There is a small enhancing nodule in the superior vermian region the cerebellum just to the left of midline which measures approximately 6 mm. There is some minimal edema at this area. Nonspecific periventricular and subcortical T2 white matter hyperintensities noted. The cerebellopontine angle, cerebellum, and brainstem have an unremarkable appearance. The pituitary, optic chiasm, corpus callosum, and craniocervical junction are unremarkable. There is a partial empty sella as a normal variant. There is a right mastoid effusion. Mild mucosal thickening involves the maxillary sinus on the right. IMPRESSION: 6 mm enhancing nodule within the left superior cerebellar vermis with a mild amount of edema but no midline shift. A metastatic focus would be included in the differential diagnosis. Dictated by: Giancarlo Sadler MD 08/02/2020 09:56 Giancarlo Sadler MD in [place] 08/02/2020 09:56
== END ==
PROVIDERS: PCP Internal Medicine Adolescent Medicine; Visit Provider Internal Medicine Hematology & Oncology
DX: C34.12 Malignant neoplasm of upper lobe, left bronchus or lung (principal); C79.72 Secondary malignant neoplasm of left adrenal gland
CPT/HCPCS: 70553; A9576

== ENCOUNTER 2020-12-01 11:34 | Inpatient (IN) | payer MEDICARE, SELFPAY ==
[2020-12-01] VITALS (29 sets, daily range): BP systolic 96–163; BP diastolic 60–98; PULSE 66–106; RESP 15–26; TEMP 36.9–37.7; O2SAT 40–100; BMI 32.1; BMI 34.4
--- NOTE | 2020-12-01 11:53 | CT_ITS ---
PROCEDURE INFORMATION: Exam: CT Head Without Contrast Exam date and time: 12/01/2020 11:53 AM Age: 64 years old Clinical indication: Pain; Altered mental status/memory loss; Headache; Additional info: Brain mets, AMS TECHNIQUE: Imaging protocol: Computed tomography of the head without contrast. 3D rendering (Not supervised by radiologist): MIP and/or 3D reconstructed images were created by the technologist. Radiation optimization: All CT scans at this facility use at least one of these dose optimization techniques: automated exposure control; mA and/or kV adjustment per patient size (includes targeted exams where dose is matched to clinical indication); or iterative reconstruction. COMPARISON: MR HEAD/BRAIN WO/W CON 08/01/2020 10:00 AM FINDINGS: Brain: No acute intracranial hemorrhage.. There is mild diffuse heterogeneity of the white matter attenuation, consistent with chronic white matter ischemic changes. Mild cerebral atrophy The nodule in the left superior cerebellar vermis is not demonstrated well on this noncontrast CT of the head Cerebral ventricles: No ventriculomegaly. Paranasal sinuses: Mucosal thickening in the right maxillary sinus may represent sinusitis Mastoid air cells: Visualized mastoid air cells are well aerated. Bones/joints: Unremarkable. No acute fracture. Soft tissues: Unremarkable. IMPRESSION: No acute intracranial hemorrhage.. The nodule in the left superior cerebellar vermis is not demonstrated well on this noncontrast CT of the head
--- NOTE | 2020-12-01 11:54 | HMH.EDGENADL ---
ED Disposition Clinical Impression: Hypercarbia, Difficult intubation Acute and chronic respiratory failure Qualifiers: Respiratory failure complication: hypercapnia Qualified Code(s): J96.22 - Acute and chronic respiratory failure with hypercapnia Disposition: Admitted As Inpatient Condition on Discharge: Serious Referrals: Jordy Akers MD [Primary Care Provider] - - Critical Care Critical Care Time: Yes Attestation: On , the high probability of a clinically significant, sudden or life threatening deterioration of the following system(s) required my full and direct attention, intervention and personal management. The time I documented below is in addition to time spent performing reported procedures but includes the following listed in this critical care notation. Total Critical Care Time: 45 Vital system(s) involved:: Respiratory Failure My critical care processes included: Assessment & monitoring of V/S, Initial and Re-exams, Data Review/Interpretation, Coordinating Care, Medication Orders and management, Documentation Comment: Patient was altered upon arrival, had an episode of hypoxia to 65%. Initial VBG demonstrated a PCO2 of 85 with a pH of 7.2. Patient was started on BiPAP. Repeat VBG 1 hour later did not demonstrate improvement. Discussed with the the importance of intubation as a method to remove CO2. Patient was intubated with vent settings of 6 mg/kg tidal volume, PEEP 5, FiO2 40%, RR 20. ABG after 1 hour of intubation demonstrated worsening PCO2 of 95 and pH of 7.1. At this time, vent settings were adjusted for a PEEP of 10, respiratory rate of 26. Using the settings, patient's end-tidal CO2 improved from 92 to 48. Patient remained sedated on propofol and Dilaudid. [facility] was called for transfer. Medical Decision Making - Medical Records Medical records reviewed: Yes: I reviewed the patient's medical records. - Adryan Inquiry Pt receiving controlled substance: Yes Adryan was queried for this patient: Yes Risks and benefits of using a controlled substance: were discussed with pt by me Vital Signs: 12/01/20 11:34 12/01/20 13:20 12/01/20 13:24 Temperature 98.4 F Temperature Source Oral Pulse Rate 87 106 H Pulse Rate [Right] 95 H Respiratory Rate 18 18 Blood Pressure 163/91 H 143/76 H Blood Pressure [Right Arm] 145/90 H Blood Pressure Mean Blood Pressure Mean [Right Arm] 108 Blood Pressure Source Automatic Cuff Blood Pressure Position Sitting 02 Sat by Pulse Oximetry 98 97 98 Oxygen Delivery Method Room Air BiPAP BiPAP 12/01/20 15:00 12/01/20 15:29 12/01/20 16:15 Temperature Temperature Source Pulse Rate 95 H 92 H Pulse Rate [Right] Respiratory Rate 18 18 Blood Pressure 153/81 H 153/79 H Blood Pressure [Right Arm] Blood Pressure Mean Blood Pressure Mean [Right Arm] Blood Pressure Source Blood Pressure Position 02 Sat by Pulse Oximetry 97 100 94 L Oxygen Delivery Method BiPAP 12/01/20 16:20 12/01/20 16:30 12/01/20 16:40 Temperature Temperature Source Pulse Rate 100 H 100 H Pulse Rate [Right] Respiratory Rate 18 15 18 Blood Pressure 131/75 133/79 122/74 Blood Pressure [Right Arm] Blood Pressure Mean Blood Pressure Mean [Right Arm] Blood Pressure Source Blood Pressure Position 02 Sat by Pulse Oximetry 94 L 94 L Oxygen Delivery Method Mechanical Ventilation 12/01/20 16:50 12/01/20 17:00 12/01/20 17:10 Temperature Temperature Source Pulse Rate 95 H 95 H 91 H Pulse Rate [Right] Respiratory Rate 18 18 19 Blood Pressure 118/69 112/72 107/64 L Blood Pressure [Right Arm] Blood Pressure Mean Blood Pressure Mean [Right Arm] Blood Pressure Source Blood Pressure Position 02 Sat by Pulse Oximetry 99 97 99 Oxygen Delivery Method 12/01/20 17:20 12/01/20 17:30 12/01/20 17:40 Temperature Temperature Source Pulse Rate 88 90 93 H Pulse Rate [Right]
[2020-12-01 11:59] LABS: Basophils % 0.3 % (0.1-2.0); Hematocrit 34.5 % (37.0-47.0); Hemoglobin 10.8 g/dL (12.2-16.2); Lymphocytes # 2.4 K/mm3 (0.7-4.5); Mean Corpuscular HGB Conc 31.4 g/dL (31.8-35.4); Mean Corpuscular Hemoglobin 25.5 pg (27.0-31.2); Mean Corpuscular Volume 81.3 fl (81-99); Mean Platelet Volume 7.8 fl (7.4-10.4); Monocytes # 0.3 K/mm3 (0.1-1.0); Monocytes % 2.7 % (1.7-9.3); Neutrophils # 6.9 K/mm3 (1.8-7.8); Neutrophils % 71.9 % (37.0-80.0); Platelet Count 427 K/mm3 (142-424); Red Blood Count 4.25 M/mm3 (4.20-5.40); Red Cell Distribution Width 22.2 % (11.5-17.5); White Blood Count 9.5 K/mm3 (4.8-10.8)
[2020-12-01 12:01] LABS: Chloride 94 mmol/L (98-107); Potassium 4.4 mmoL/L (3.5-5.1); Sodium 141 mmol/L (136-145)
[2020-12-01 12:04] LABS: Alanine Aminotransferase 87 U/L (12-78); Albumin Level 4.3 g/dl (3.5-5.0); Albumin/Globulin Ratio 1.4 (1.1-1.8); Alkaline Phosphatase 93 U/L (38-126); Aspartate Amino Transferase 49 U/L (14-36); Bilirubin,Total 0.4 mg/dl (0.2-1.3); Blood Urea Nitrogen 38 mg/dl (7-17); Calcium 8.8 mg/dl (8.4-10.2); Creatinine Clearance Estimated 69 mL/min (50-200); Estimated Glomerular Filt Rate 56 ml/min (>60); GFR (African American) 68 ML/MIN (>60); Globulin 3.1 g/dL (1.3-3.2); Glucose 103 mg/dl (74-100); Lipase 84 U/L (23-300); Total Protein,Serum 7.4 g/dl (6.3-8.2)
[2020-12-01 12:15] LABS: Anion Gap 9.4 mEq/L (5-15)
[2020-12-01 12:17] LABS: Carbon Dioxide 42 mmol/L (22.0-30.0)
--- NOTE | 2020-12-01 12:54 | XR_ITS ---
PROCEDURE INFORMATION: Exam: XR Chest Exam date and time: 12/01/2020 12:54 PM Age: 64 years old Clinical indication: Other: Hypercarbia; Patient HX: PT has lung adenocarcinoma with abdominal metastases as well as brain metastases; Additional info: AMS, hypercarbia TECHNIQUE: Imaging protocol: XR of the chest. Views: 1 view. COMPARISON: CT ANGIO CHEST PE PROTOCOL 12/01/2020 1:57 PM FINDINGS: Lungs: The lung cancer is not demonstrated well on the chest x-ray. It may contained within the mild opacity in the medial left base.. Pleural spaces: Unremarkable. No pleural effusion. No pneumothorax. Heart/Mediastinum: Unremarkable. No cardiomegaly. Bones/joints: Left rib fractures of unknown age IMPRESSION: The lung cancer is not demonstrated well on the chest x-ray. It may contained within the mild opacity in the medial left base..
--- NOTE | 2020-12-01 13:02 | CT_ITS ---
PROCEDURE INFORMATION: Exam: CTA Chest With Contrast Exam date and time: 12/01/2020 1:02 PM Age: 64 years old Clinical indication: Patient HX: Hypoxia, patients spouse stated patient has lung adenocarcinoma with abdominal metastases as well as brain metastases TECHNIQUE: Imaging protocol: Computed tomographic angiography of the chest with contrast. 3D rendering (Not supervised by radiologist): MIP and/or 3D reconstructed images were created by the technologist. Radiation optimization: All CT scans at this facility use at least one of these dose optimization techniques: automated exposure control; mA and/or kV adjustment per patient size (includes targeted exams where dose is matched to clinical indication); or iterative reconstruction. Contrast material: ISOVUE 370; Contrast volume: 70 ml; Contrast route: INTRAVENOUS (IV); COMPARISON: CT LUNG SCREENING 06/19/2019 2:09 PM FINDINGS: Pulmonary arteries: No evidence of pulmonary embolus to the segmental level. Aorta: No aneurysm of the aorta. No dissection of the aorta. Lungs: 8 x 3 x 5 cm mass in the medial aspect the lingula and left lower lobe measures 28 Hounsfield units. Twenty-eight Hounsfield units. Series 601, image 50. Series 602, image 57. This may reflect the lung cancer described in the history. Pleural spaces: Unremarkable. No pneumothorax. No pleural effusion. Heart: Unremarkable. No cardiomegaly. No pericardial effusion. Lymph nodes: Pathologic node anterior to the trachea 13 x 12 mm. Bones/joints: Healed left rib fractures Soft tissues: Unremarkable. IMPRESSION: 1. 8 x 3 x 5 cm mass in the medial aspect the lingula and left lower lobe measures 28 Hounsfield units. Twenty-eight Hounsfield units. Series 601, image 50. Series 602, image 57. This may reflect the lung cancer described in the history. 2. No evidence of pulmonary embolus to the segmental level. 3. No aneurysm of the aorta. 4. No dissection of the aorta.
[2020-12-01 13:11] LABS: VBG HCO3 36.4 mmol/L (23-30); VBG Oxygen Saturation 82.8 % (50-70); VBG PH 7.24 mmol/L (7.31-7.41); VBG PO2 52.9 mmol/L (28-40)
--- NOTE | 2020-12-01 13:20 | PC.NURSE ---
rt at bedside
[2020-12-01 13:29] LABS: Troponin I 0.12 ng/ml (0.00-0.034)
[2020-12-01 13:43] LABS: VBG PCO2 86.8 mmol/L (35-51)
[2020-12-01 14:58] LABS: Coronavirus 19, PCR Not Detected (NotDetected); Influenza A, PCR Not Detected (NotDetected); Influenza B, PCR Not Detected (NotDetected)
[2020-12-01 15:09] LABS: VBG PH 7.21 mmol/L (7.31-7.41); VBG PO2 58.4 mmol/L (28-40); VBG Total CO2 36.7 mmol/L (23-27)
[2020-12-01 15:10] LABS: VBG PCO2 87.7 mmol/L (35-51)
--- NOTE | 2020-12-01 15:33 | PC.NURSE ---
moving patient to ROOM 2 in ED to perforcm intubation. Patien'ts agreeable
--- NOTE | 2020-12-01 16:07 | XR_ITS ---
PROCEDURE INFORMATION: Exam: XR Chest Exam date and time: 12/01/2020 4:07 PM Age: 64 years old Clinical indication: Device placement; Ett placement (vent status); Additional info: S/P intubation TECHNIQUE: Imaging protocol: XR of the chest. Views: 1 view. COMPARISON: CR XR CHEST PORTABLE 12/01/2020 2:09 PM FINDINGS: Tubes, catheters and devices: Endotracheal tube terminates 2.5 cm above the leeann. Enteric tube is seen within the stomach.. Lungs: Mass in the medial lingula and left lower lobe not well demonstrated on this study.. Pleural spaces: Unremarkable. No pleural effusion. No pneumothorax. Heart/Mediastinum: Unremarkable. No cardiomegaly. Bones/joints: Unremarkable. IMPRESSION: 1. Endotracheal tube terminates 2.5 cm above the leeann. 2. Enteric tube is seen within the stomach.. 3. Mass in the medial lingula and left lower lobe not well demonstrated on this study..
--- NOTE | 2020-12-01 16:20 | PC.NURSE ---
Calling [facility] at this time
--- NOTE | 2020-12-01 16:30 | PC.NURSE ---
PROPOFOL TITRATED TO 20MCG/KG/MIN TO MAINTAIN A RASS SCORE OF -1
--- NOTE | 2020-12-01 16:43 | PC.NURSE ---
PROPOFOL TIRATED TO 15MCG/KG/MIN
[2020-12-01 16:53] LABS: Appearance,Urine CLEAR (Clear); Bilirubin,Urine Negative (Negative); Blood, Urine TRACE-L (Negative); Color,Urine YELLOW (Yellow); Glucose,Urine (UA) Negative (Negative); Ketones,Urine Negative (Negative); Leukocyte Esterase,Urine Negative (Negative); Microscopic, Urine URINE MICROSCOPIC (MICROSCOPIC); Nitrate,Urine Negative (Negative); Protein,Urine Negative (Negative); Specific Gravity, Urine 1.015 (1.005-1.030); Urobilinogen,Urine 0.2 EU/dl (0.2)
--- NOTE | 2020-12-01 17:04 | PC.NURSE ---
PROPOFOL TITRATED TO 25MCG/KG/MIN AT THIS TIME TO MAINTAIN A RASS OF -1
[2020-12-01 17:10] LABS: ABG Base Excess 7.8 mmol/L (-2.4-2.3); ABG Oxygen Saturation 93 % (90-100); ABG PO2 77.5 mmhg (80-100); ABG TCO2 38.9 mmhg (23-27)
--- NOTE | 2020-12-01 17:10 | PC.NURSE ---
ELAYNE ESCALANTE speaking with [facility] at this time, Dr. Sotelo
--- NOTE | 2020-12-01 17:20 | PC.NURSE ---
Dr Sotelo accepted pt, [facility] staff will call back when there is a bed assigned
--- NOTE | 2020-12-01 17:28 | PC.NURSE ---
PROPOFOL TITRATED TO 30MCG/KG/MIN TO MAINTAIN A RASS OF -1
[2020-12-01 17:39] LABS: Allen's Test Y; Oxygen 40 %; PEEP 5; Source R/R; Tidal Volume 330; Vent Rate 18
[2020-12-01 17:40] LABS: ABG PCO2 95.2 mmhg (35.0-45.0)
--- NOTE | 2020-12-01 17:41 | PC.NURSE ---
Titrated Propfolol to 25mcg/kg/min
--- NOTE | 2020-12-01 18:26 | PC.NURSE ---
TITRATED PROPOFOL TO 40MCG/KG/MIN AT THIS TIME TO MAINTAIN A RASS OF -1
--- NOTE | 2020-12-01 19:10 | PC.NURSE ---
Gave report to Cristian RAMIREZ at this time
--- NOTE | 2020-12-01 19:30 | PC.NURSE ---
Pt turned over to dc from AM shift, pt is intubated and sedated from respiratory failure. Pt sedated on 40 MCG/KG/MIN of Propofol. PERRL 2mm sluggish. Pt responds to stimulation, ut excepting the vent at this time. S1, S2 decreased Peripheral pulses palpable but weak. Cap refill WNL. 18 Osei PIV in left AC and 20 Osei PIV to right AC. Lungs are course throughout bilateral, 7.5 ETT 24 cm @ lip Vent is rate of 20 TV 330 PEEP 10 FIO2 40% ETCIO2@ 52. Bowel sounds Hypoactive in all 4 quads. 16 fr Scott with clear yellow urine out. ABD soft. no peripheral edema noted.
[2020-12-01 19:41] LABS: ABG Oxygen Saturation 98 % (90-100); ABG PH 7.38 mmol/L (7.35-7.45); ABG PO2 124.2 mmhg (80-100); ABG TCO2 34.8 mmhg (23-27)
[2020-12-01 19:42] LABS: ABG PCO2 56.6 mmhg (35.0-45.0); Allen's Test Y; Oxygen 40 %; PEEP 10; Source R/R; Tidal Volume 330; Vent Rate 20
--- NOTE | 2020-12-01 20:32 | PC.NURSE ---
AT THIS TIME CPOT SCORE 1 FENTANYL GTT 25 MCG/HR PROPOFOL GTT 40 MCG/HR
--- NOTE | 2020-12-01 20:35 | PC.NURSE ---
Bedside report given to Rosalinda RAMIREZ.
--- NOTE | 2020-12-01 20:57 | PC.NURSE ---
RHONCHI TO BILAT LUNG LOBES. SKIN C/D/I NO EDEMA NOTED TO BLE FC IN PLACE; DRAINING CLEAR, PALE URINE
--- NOTE | 2020-12-01 21:33 | PC.NURSE ---
patient up to floor at 21:22
[2020-12-01 23:01] LABS: POC Glucose,Bedside 102 (70-110)
[2020-12-02] VITALS (34 sets, daily range): BP systolic 95–155; BP diastolic 55–77; PULSE 50–73; RESP 20; TEMP 36.6–37.3; O2SAT 91–100; BMI 34.3
--- NOTE | 2020-12-02 01:21 | PC.NURSE ---
2340- FENTANYL INCREASED TO 37.5 AFTER BOLUSING PER PROTOCOL
--- NOTE | 2020-12-02 01:23 | PC.NURSE ---
0015- FENTANYL INCREASED TO 50 MCG/MIN AFTER RECEIVING BOLUSES PER PROTOCOL
--- NOTE | 2020-12-02 01:34 | PC.NURSE ---
TITRATED PROPOFOL GTT TO 30 MCG/KG/HR D/T PT. FLAILING IN BED, EYES OPENING, BITING TUBE, COUGHING AGAINST VENT AND PEAK PRESSURES SUSTAINING 60'S. ATTEMPTED REPOSITIONING UNSUCCESSFULLY.
--- NOTE | 2020-12-02 05:50 | PC.NURSE ---
TITRATED PROPOFOL GTT TO 40 MCG/KG/MIN D/T PT. FLAILING IN BED, EYES OPENING, BITING TUBE, COUGHING AGAINST VENT AND PEAK PRESSURES SUSTAINING 60'S.
[2020-12-02 06:22] LABS: ABG Base Excess 5.8 mmol/L (-2.4-2.3); ABG HCO3 29.1 mmhg (22.0-26.0); ABG Oxygen Saturation 95 % (90-100); ABG PCO2 38.8 mmhg (35.0-45.0); ABG PH 7.49 mmol/L (7.35-7.45); ABG TCO2 30.3 mmhg (23-27)
[2020-12-02 06:23] LABS: Oxygen 40 %; PEEP 5; Source Right Radial; Tidal Volume 400; Vent Rate 20
[2020-12-02 06:30] LABS: POC Glucose,Bedside 137 (70-110)
--- NOTE | 2020-12-02 07:00 | XR_ITS ---
PROCEDURE: XR CHEST PORTABLE CLINICAL HISTORY: mechanical ventilation Respiratory failure COMPARISON: CR CXR CHEST(2 VIEWS-NOT PORTABLE) from 10/31/[address] LUNG SCREENING from 06/19/2019 CR XR CHEST PORTABLE from 12/01/[address] ANGIO CHEST PE PROTOCOL from 12/01/2020 CR XR CHEST PORTABLE from 12/01/2020 FINDINGS: 7:13 a.m.. Endotracheal tube tip is 2.6 cm above the leeann. Nasogastric tube tip is in the region of the body of stomach. There is increased density in the retrocardiac region on the left. This may be due to loculated effusion versus pulmonary mass. No acute bony abnormalities. IMPRESSION: Endotracheal tube and nasogastric tube in good position. Opacity in the retrocardiac region which may be due to loculated effusion versus pulmonary mass. Dictated by: Giancarlo Sadler MD 12/02/2020 07:44 Giancarlo Sadler MD in [place] 12/02/2020 07:44
--- NOTE | 2020-12-02 08:39 | HMH.HP ---
*Admission Date: 12/01/20 *Chief complaint: Respiratory failure *History of present illness: Patient is a 64-year-old female with a history of lung adenocarcinoma with abdominal metastases as well as brain metastases. at bedside provides history. He states that the patient has been having intractable headache for several weeks, but today she became altered and more somnolent this morning. He states that the patient is only been taking ibuprofen for headache without relief in symptoms. He further states that she has been nausea without any episodes of emesis. Patient appears uncomfortable. states that the patient has had prior cerebral swelling and is currently on steroids. He states that she is currently on 30 mg of prednisone. Patient received chemotherapy 3 days prior to presentation. Otherwise not any fevers, chills, chest pain, but has some diffuse abdominal pain. Upon presentation, patient is hemodynamically stable and nontoxic, but uncomfortable appearing. Patient presents with headache and altered mental status in the setting of known brain metastases. Differential diagnosis includes but not limited to cerebral edema secondary to brain metastases, intracranial hemorrhage, Procardia, UTI leading to AMS and abdominal pain. Labs including CBC, CMP were obtained along with a CT head and a UA. Patient was given 1 mg IV Dilaudid and 12.5 mg IV Phenergan for symptomatic management along with a 1 L IV bolus. Reviewed patient's labs demonstrate normal white blood cell count, CMP demonstrate an elevated CO2. At this time, patient was found to be hypoxic with appropriate Plath. Patient was satting at approximately 65%. She was placed on 15 L nonrebreather. VBG and chest x-ray were obtained. After nonrebreather, patient's oxygen improved to 90. VBG demonstrated a pH of 7.2 with a PCO2 of 86.8. Patient was placed on BiPAP. Given patient's history of cancer, new hypoxia, tachycardia, concern for pulmonary embolus. As such, CT PE was also ordered. CT PE did not mention any signs of pulmonary embolus, but did demonstrate a left upper lobe mass. Patient's states that that worries where the cancer originated and that she should be status post left upper lobectomy. After 1 hour on BiPAP, repeat VBG was obtained which did not demonstrate significant improvement. As such, decision was made to intubate the patient. After intubation, [facility] was consulted for possible transfer given the patient's oncologist is at this outside hospital. However, unable to transfer at this time. Patient remained ventilated and sedated on propofol, however became more arousable and agitated, required Dilaudid. 2-hour ABG demonstrated improvement with a new pH of 7.3 and a PCO2 of 54. Given that the patient cannot be transferred at this time, she was admitted for further management. Above 2 paragraphs per ER physician. The patient did well after intubation from a respiratory standpoint. Has had some problems with breakthrough restlessness on sedation. Is resting comfortably at this point. is at bedside. Plan remains the same as noted above. [facility] History I have reviewed the patient's past medical history: Yes Medical History: Reports:: Cancer, Coronary Artery Disease, Diabetes Mellitus Type 2, Gastroesophageal Reflux Disease(GERD), Hyperlipidemia, Hypertension, Lung Disease, Myocardial Infarction, Transient Ischemic Attacks (TIA) Denies:: Diabetes Mellitus Type 1, Internal Pacemaker, MRSA, Seizures *Have you ever received a pneumonia vaccine?: Yes *Have you received a flu vaccine this season?: Yes Other Medical History: Reports: Arthritis. Denies: Blood Transfusion Reaction Other Surgeries: Yes: Angioplasty, Appendectomy, Cardiac Catheterization, Colonoscopy, Tubal Ligation, Other (BACK SX, ABD MASS). No: Pacemaker Amputation: No Fractures: No - *Social History Smoking Status: Former smoker Tobacco Type: cigarettes # Packs/Day (ciga
--- NOTE | 2020-12-02 08:59 | PC.NURSE ---
[facility] called at this time stating they currently did not have any beds, would call back later for another update on patient
--- NOTE | 2020-12-02 09:25 | HMH.PHAVTE ---
[facility] Pharmacy VTE Monitoring - Patient Demographics Admission date: 12/02/20 Report Date: 12/02/20 Time: 09:25 Allergies/Adverse Reactions: Patient Allergies diltiazem [DILTIAZEM] Allergy (Unknown, Verified 07/17/20 14:01) UNKNOWN levofloxacin [From LEVAQUIN] Allergy (Unknown, Verified 07/17/20 14:01) NA-NAUSEA/VOMITING nadolol [From CORGARD] Allergy (Unknown, Verified 07/17/20 14:01) UNKNOWN oxycodone [From ROXICET] Allergy (Unknown, Verified 07/17/20 14:01) UNKNOWN umeclidinium [From Anoro Ellipta] Adverse Reaction (Intermediate, Verified 07/17/20 14:01) Chest Pain vilanterol [From Anoro Ellipta] Adverse Reaction (Intermediate, Verified 07/17/20 14:01) Chest Pain olodaterol [From Stiolto Respimat] Adverse Reaction (Verified 12/01/20 21:46) tiotropium [From Stiolto Respimat] Adverse Reaction (Verified 12/01/20 21:46) Height: 1.55 m Weight: 82.5 kg Patient Problems: Current Active Problems Acute and chronic respiratory failure (Acute) Hypercarbia (Acute) Difficult intubation (Acute) Lung mass (Acute) - VTE Risk Labs: VTE Related Lab Results Hgb 10.8 g/dL (12.2-16.2) L 12/01/20 11:36 Hct 34.5 % (37.0-47.0) L 12/01/20 11:36 Plt Count 427 K/mm3 (142-424) H 12/01/20 11:36 BUN 38 mg/dl (7-17) H 12/01/20 11:36 Creatinine 1.00 mg/dl (0.52-1.04) 12/01/20 11:36 Estimated Creat Clear 69 mL/min (50-200) 12/01/20 11:36 Was VTE Risk Assessment Performed: Yes VTE Score: 6 VTE Risk Level: Moderate Risk Clinical Trial Participant: No - Prophylaxis VTE Prophylaxis Ordered?: Yes Types of VTE Prophylaxis: IPCS Knee High, Pharmacological Location of Applied Device: Bilateral Lower Extremeties Pharmacologic Type: Enoxaparin
[2020-12-02 10:23] LABS: Chloride 101 mmol/L (98-107)
[2020-12-02 10:24] LABS: Potassium 4.8 mmoL/L (3.5-5.1); Sodium 137 mmol/L (136-145)
[2020-12-02 10:26] LABS: Alanine Aminotransferase 62 U/L (12-78); Alkaline Phosphatase 81 U/L (38-126); Anion Gap 11.8 mEq/L (5-15); Aspartate Amino Transferase 49 U/L (14-36); Bilirubin,Total 0.6 mg/dl (0.2-1.3); Blood Urea Nitrogen 29 mg/dl (7-17); Carbon Dioxide 29 mmol/L (22.0-30.0); Creatinine Clearance Estimated 74 mL/min (50-200); Estimated Glomerular Filt Rate 84 ml/min (>60); GFR (African American) 102 ML/MIN (>60)
[2020-12-02 10:27] LABS: Albumin Level 3.5 g/dl (3.5-5.0); Albumin/Globulin Ratio 1.3 (1.1-1.8); Calcium 8.2 mg/dl (8.4-10.2); Globulin 2.8 g/dL (1.3-3.2); Glucose 115 mg/dl (74-100); Total Protein,Serum 6.3 g/dl (6.3-8.2)
[2020-12-02 11:20] LABS: Hemoglobin 9.3 g/dL (12.2-16.2); Red Blood Count 3.58 M/mm3 (4.20-5.40)
[2020-12-02 11:21] LABS: Hematocrit 28.4 % (37.0-47.0); Mean Corpuscular HGB Conc 32.7 g/dL (31.8-35.4); Mean Corpuscular Volume 79.5 fl (81-99); Mean Platelet Volume 9.5 fl (7.4-10.4); Platelet Count 279 K/mm3 (142-424); Red Cell Distribution Width 22.6 % (11.5-17.5)
[2020-12-02 11:22] LABS: Basophils % 0.2 % (0.1-2.0); Eosinophils % 0.3 % (0.1-12.0); Lymphocytes # 1.5 K/mm3 (0.7-4.5); Lymphocytes % 16.7 % (10-50); Monocytes # 0.3 K/mm3 (0.1-1.0); Neutrophils # 7.2 K/mm3 (1.8-7.8); Neutrophils % 79.8 % (37.0-80.0)
--- NOTE | 2020-12-02 14:41 | PC.NURSE ---
patient remains on ventilator and sedated. she has been provided oral care, suctioning and turning [id number] as tolerated. noted to get slightly agitated when staff is providing any physical care but quickly calms back down after. has not required any fentanyl pushes at this time. current propafol drip going at 45mcg.kg.min. with turns and care drip must be turned up to 50mcg.kg.min temporarily but is able to be turned back down. has remained harlan on the monitor. with a heart rate in the 50s. scant mucus with suctioning. lungs seem clear throughout. bp has maintained well. has been in and out of room and educated on care as needed. ng tube became dislodged and was placed back in, at 57 at the nostril, verified placement by listening. vitals stable. continues to not breathe over vent notified md that patient fsbs had dropped to 89. stated at home she has not used her metformin in about a year, but they still have it incase she is placed on steroids which raises her fsbs. md stated to order d5ns at 100ml/hr, and start sliding scale low intensity insulin. no changes to vent settings at this time.
--- NOTE | 2020-12-02 15:53 | PC.NURSE ---
[facility] called stating still no beds. possibly next shift, but they are not sure. our md stated if she does get a bed then she needs to go by air
[2020-12-02 16:03] LABS: POC Glucose,Bedside 89 (70-110)
[2020-12-02 16:45] LABS: POC Glucose,Bedside 97 (70-110)
--- NOTE | 2020-12-02 18:23 | PC.NURSE ---
[facility] called for update on pt and to let us know there is still no available beds.
--- NOTE | 2020-12-02 20:31 | PC.NURSE ---
1999- SPOKE WITH JAKY IN [facility]. NO AVAILABLE BEDS AT THIS TIME.
--- NOTE | 2020-12-02 20:57 | PC.NURSE ---
Pt turned and trash pulled at this time
[2020-12-02 21:03] LABS: POC Glucose,Bedside 137 (70-110)
[2020-12-03] VITALS (33 sets, daily range): BP systolic 90–150; BP diastolic 49–79; PULSE 50–105; RESP 20; TEMP 36.4–38.2; O2SAT 40–100; BMI 35.2
[2020-12-03 05:42] LABS: POC Glucose,Bedside 97 (70-110)
--- NOTE | 2020-12-03 05:49 | PC.NURSE ---
2121- [facility] SPOKE TO THIS RN STATING THEIR ARE NO BEDS AVAILABLE AT THIS TIME 2134- TITRATED PROPOFOL GTT TO 40 MCG/KG/MIN 138- [facility] SPOKE TO THIS RN STATING THEIR ARE NO BEDS AVAILABLE AND REQUESTING PT. UPDATE 0248- TITRATED PROPOFOL GTT TO 45 MCG/KG/MIN D/T PT. BITING TUBE, COUGHING, PEAK PRESSURES SUSTAINING MID 50S, FLAILING IN BED 0540- [facility] SPOKE TO THIS RN STATING THEIR ARE STILL NO BEDS AVAILABLE. POSSIBLE BED AVAILABLE IN LATE MORNING
[2020-12-03 06:11] LABS: ABG Base Excess 3.3 mmol/L (-2.4-2.3); ABG HCO3 27.6 mmhg (22.0-26.0); ABG Oxygen Saturation 97 % (90-100); ABG PCO2 42.7 mmhg (35.0-45.0); ABG PH 7.43 mmol/L (7.35-7.45); ABG PO2 119.8 mmhg (80-100)
[2020-12-03 06:16] LABS: Allen's Test Acceptable; Oxygen 40 %; PEEP 5; Source Right Radial; Tidal Volume 400; Vent Rate 20
--- NOTE | 2020-12-03 07:00 | XR_ITS ---
PROCEDURE INFORMATION: Exam: XR Chest Exam date and time: 12/03/2020 7:00 AM Age: 65 years old Clinical indication: Device placement; Ett placement (vent status); Patient HX: HX lung cancer PT ventilated; Additional info: Mechanically ventilated TECHNIQUE: Imaging protocol: XR of the chest. Views: 1 view. COMPARISON: CR XR CHEST PORTABLE 12/02/2020 7:13 AM FINDINGS: Tubes, catheters and devices: Endotracheal tube and nasogastric tube in appropriate position. Lungs: Stable retrocardiac consolidation. Pleural spaces: Unremarkable. No pleural effusion. No pneumothorax. Heart/Mediastinum: Multiple clips in the left-sided mediastinum. No cardiomegaly Bones/joints: Unremarkable. There is no acute fracture present. IMPRESSION: 1. Stable retrocardiac consolidation. 2. Endotracheal tube and nasogastric tube in appropriate position. 3. Multiple clips in the left-sided mediastinum.
--- NOTE | 2020-12-03 07:21 | PC.NURSE ---
0645- TITRATED PROPOFOL GTT TO 40 MCG/KG/MIN
--- NOTE | 2020-12-03 07:46 | PC.NURSE ---
0700 - Notified respiratory that Dr Akers would like patient switched to pressure support mode and to do a spontaneous breathing trial; possible extubation at 0900
--- NOTE | 2020-12-03 09:36 | PC.NURSE ---
Sedation weaned as follows: 0715: Fentanyl 40/mcg/hr, propofol 30/mcg/kg/min 0730: Fentanyl 30 mcg/hr, propofol 20 mcg/kg/min 0745: Fentanyl 20 mcg/hr, propofol 10 mcg/kg/min 0800: both off 0805: respiratory at bedside, vent switched to pressure support 0815: VS 169/96, hr 115, O2 97% 0830: VS 176/104, hr 146, O2 95% 0835: Pt HR sustaining 150's, BP elevated so patient placed back on assist control; Fentanyl started @ 10mcg/hr, propofol @ 5 mcg/kg/min 0840: VS 208/102, HR 123, O2 99% 0845: VS 203/88, hr 141, O2 98 0850: VS 183/86, HR 118 O2 99%
--- NOTE | 2020-12-03 11:03 | PC.NURSE ---
Received a call from Becki from [facility] stating they do not have a bed available as of yet but may have one later.
[2020-12-03 11:07] LABS: Basophils % 0.2 % (0.1-2.0); Eosinophils # 0.1 K/mm3 (0.0-0.4); Hemoglobin 8.9 g/dL (12.2-16.2); Lymphocytes # 1.4 K/mm3 (0.7-4.5); Monocytes # 0.1 K/mm3 (0.1-1.0)
[2020-12-03 11:12] LABS: Eosinophils % 0.8 % (0.1-12.0); Lymphocytes % 16.9 % (10-50); Mean Corpuscular HGB Conc 33.8 g/dL (31.8-35.4); Mean Corpuscular Hemoglobin 26.2 pg (27.0-31.2); Mean Corpuscular Volume 77.5 fl (81-99); Mean Platelet Volume 8.2 fl (7.4-10.4); Monocytes % 0.9 % (1.7-9.3); Neutrophils # 6.9 K/mm3 (1.8-7.8); Neutrophils % 81.3 % (37.0-80.0); Platelet Count 241 K/mm3 (142-424); Red Blood Count 3.41 M/mm3 (4.20-5.40); Red Cell Distribution Width 22.8 % (11.5-17.5); White Blood Count 8.5 K/mm3 (4.8-10.8)
[2020-12-03 11:14] LABS: Hematocrit 26.4 % (37.0-47.0)
[2020-12-03 11:32] LABS: POC Glucose,Bedside 97 (70-110)
--- NOTE | 2020-12-03 11:40 | PC.NURSE ---
Notified Dr Akers that patient has a new temp of 100.8 rectally and updated him on patients status.
[2020-12-03 11:47] LABS: Chloride 101 mmol/L (98-107); Potassium 3.3 mmoL/L (3.5-5.1); Sodium 137 mmol/L (136-145)
[2020-12-03 11:49] LABS: Alanine Aminotransferase 47 U/L (12-78); Aspartate Amino Transferase 30 U/L (14-36); Blood Urea Nitrogen 22 mg/dl (7-17); Creatinine Clearance Estimated 75 mL/min (50-200); Estimated Glomerular Filt Rate 84 ml/min (>60); GFR (African American) 102 ML/MIN (>60)
[2020-12-03 11:50] LABS: Albumin Level 3.2 g/dl (3.5-5.0); Albumin/Globulin Ratio 1.2 (1.1-1.8); Alkaline Phosphatase 80 U/L (38-126); Anion Gap 10.3 mEq/L (5-15); Bilirubin,Total 0.5 mg/dl (0.2-1.3); Calcium 8.1 mg/dl (8.4-10.2); Carbon Dioxide 29 mmol/L (22.0-30.0); Globulin 2.7 g/dL (1.3-3.2); Glucose 107 mg/dl (74-100); Total Protein,Serum 5.9 g/dl (6.3-8.2)
--- NOTE | 2020-12-03 13:45 | HMH.ACPN2 ---
Internal Medicine - PN: Subj *Date: 12/03/20 *Time: 20:49 Interval history: Ms. Yeh had some agitation overnight requiring increased sedation. As tolerated minimal vent settings on assist control with a rate of 20, PEEP of 5, volume 400, FiO2 40%. Blood gas obtained this morning showing normal pH, CO2 at an appropriate level, and oxygen greater than 100. at bedside this morning. Remained afebrile overnight. Overall stable at this time. Numerous communications with [facility] overnight, no bed available at this time Exam Vital signs and Labs for Last 24 Hours: Temp Pulse Resp BP Pulse Ox 100.8 F H 66 20 114/58 L 100 12/03/20 11:00 12/03/20 13:00 12/03/20 13:00 12/03/20 13:00 12/03/20 13:00 Laboratory Results - last 24 hr 12/02/20 12:16: POC Glucose 89 12/02/20 16:37: POC Glucose 97 12/02/20 20:56: POC Glucose 137 H 12/03/20 05:35: POC Glucose 97 12/03/20 07:00: Specimen Source Right radial, O2 % 40, ABG pH 7.43, ABG pCO2 42.7, ABG pO2 119.8 H, ABG HCO3 27.6 H, ABG Total CO2 29.0 H, ABG O2 Saturation 97, ABG Base Excess 3.3 H, Giancarlo Test Acceptable, Vent Rate 20, Tidal Volume 400, PEEP 5 12/03/20 11:00: WBC 8.5, RBC 3.41 L, Hgb 8.9 L, Hct 26.4 L, MCV 77.5 L, MCH 26.2 L, MCHC 33.8, RDW 22.8 H, Plt Count 241, MPV 8.2, Neut % (Auto) 81.3 H, Lymph % (Auto) 16.9, [place] % (Auto) 0.9 L, Eos % (Auto) 0.8, Baso % (Auto) 0.2, Neut # (Auto) 6.9, Lymph # (Auto) 1.4, [place] # (Auto) 0.1, Eos # (Auto) 0.1, Baso # (Auto) 0.0 12/03/20 11:00: Sodium 137, Potassium 3.3 L D, Chloride 101, Carbon Dioxide 29, Anion Gap 10.3, BUN 22 H, Creatinine 0.70, Estimated Creat Clear 75, Estimated GFR 84, Est GFR ( Amer) 102, Glucose 107 H, Calcium 8.1 L, Total Bilirubin 0.5, AST 30 D, ALT 47, Alkaline Phosphatase 80, Total Protein 5.9 L, Albumin 3.2 L, Globulin 2.7, Albumin/Globulin Ratio 1.2 12/03/20 11:01: POC Glucose 97 I & O for Last 24 hours: Intake & Output 11/30/20 12/01/20 12/02/20 12/03/20 23:59 23:59 23:59 23:59 Intake Total 3297 / 3417 2988 / 3104 1613 / 1613 Output Total 1250 / 1310 1824 / 1949 1540 / 1540 Balance 204 / 2107 1164 / 1155 73 / 73 Weight 82.696 kg 82.5 kg 84.453 kg Microbiology Reports for the Last 24 Hours: Microbiology 12/01/20 16:15 Sputum - Endotracheal Tube Aspirate Gram Stain - Final 12/01/20 16:15 Sputum - Endotracheal Tube Aspirate Sputum Culture - Preliminary Narrative: - Constitutional Comments: Intubated. Sedated. Opens eyes to physical stimuli - *Routine HEENT Exam Head: Present: normocephalic, cushingoid faces Eye: Present: PERRL ENT: Present: mucous membranes moist ET tube in place 24 cm, NG in right nare. - *Routine Neck Exam Present: supple. Absent: lymphadenopathy - *Routine Respiratory Exam Present: patient mechanically ventilated, good air movement bilaterally - *Routine Cardiovascular Exam Present: RRR - *Routine Abdominal Exam Present: soft, normoactive bowel sounds. Absent: tenderness - *Routine Extremities Exam Absent: cyanosis, clubbing, edema - *Routine Skin Exam Present: warm. Absent: rash - *Routine Neurological Exam Present: sedated Assessment and Plan (1) Acute and chronic respiratory failure Status: Acute Qualifiers: Respiratory failure complication: hypercapnia Qualified Code(s): J96.22 - Acute and chronic respiratory failure with hypercapnia Category: Medical Code(s): J96.20 - Acute and chronic respiratory failure, unspecified whether with hypoxia or hypercapnia (2) Hypercarbia Status: Acute Category: Medical Code(s): R06.89 - Other abnormalities of breathing (3) Lung mass Status: Acute Category: Medical Code(s): R91.8 - Other nonspecific abnormal finding of lung field (4) Metastatic lung cancer (metastasis from lung to other site) Status: Chronic Qualifiers: Laterality: left Qualified Code(s): C34.92 - Malignant neoplasm of unspecified part of left bronchus or lung
--- NOTE | 2020-12-03 14:41 | PC.NURSE ---
Pt failed spontaneous breathing trial this am due to elevated HR and BP. Pt also became very anxious and agitated and was unable to tolerate. She was placed back on assist control and sedation was turned back on. She has been turned and oral care provided q2hrs as tolerated. Her sargent is to bedside draining light colored urine. NG to right nare is at 57cm attached to continuous low wall suction. It is draining brownish/yellow fluid. Vent settings as documented in the intervention. Fentanyl is currently infusing @ 50 mcg/hr and propofol is infusing at 40 mcg/kg/min. She rests comfortably until you try to turn her, provide oral care, suction, or manipulate her in any way. She had a low grade of 100.8 rectally which has since decreased to 99.4 on the last check. Glucose has been WNL. has been at bedside and is supportive.
[2020-12-03 16:22] LABS: POC Glucose,Bedside 81 (70-110)
--- NOTE | 2020-12-03 17:22 | PC.NURSE ---
Per Dr Akers: Tomorrow morning (12/04) Start weaning sedation at 0600, give prn xanax through ng tube before weaning starts. Switch patient to pressure support @ 0700 in preparation to extubate patient when MD rounds in AM.
[2020-12-03 21:54] LABS: POC Glucose,Bedside 106 (70-110)
--- NOTE | 2020-12-03 22:54 | HMH.DCSUM ---
General - General Admission date:: 12/01/20 Discharge date: 12/03/20 HPI HPI: Patient is a 64-year-old female with a history of lung adenocarcinoma with abdominal metastases as well as brain metastases. at bedside provides history. He states that the patient has been having intractable headache for several weeks, but today she became altered and more somnolent this morning. He states that the patient is only been taking ibuprofen for headache without relief in symptoms. He further states that she has been nausea without any episodes of emesis. Patient appears uncomfortable. states that the patient has had prior cerebral swelling and is currently on steroids. He states that she is currently on 30 mg of prednisone. Patient received chemotherapy 3 days prior to presentation. Otherwise not any fevers, chills, chest pain, but has some diffuse abdominal pain. Upon presentation, patient is hemodynamically stable and nontoxic, but uncomfortable appearing. Patient presents with headache and altered mental status in the setting of known brain metastases. Differential diagnosis includes but not limited to cerebral edema secondary to brain metastases, intracranial hemorrhage, Procardia, UTI leading to AMS and abdominal pain. Labs including CBC, CMP were obtained along with a CT head and a UA. Patient was given 1 mg IV Dilaudid and 12.5 mg IV Phenergan for symptomatic management along with a 1 L IV bolus. Reviewed patient's labs demonstrate normal white blood cell count, CMP demonstrate an elevated CO2. At this time, patient was found to be hypoxic with appropriate Plath. Patient was satting at approximately 65%. She was placed on 15 L nonrebreather. VBG and chest x-ray were obtained. After nonrebreather, patient's oxygen improved to 90. VBG demonstrated a pH of 7.2 with a PCO2 of 86.8. Patient was placed on BiPAP. Given patient's history of cancer, new hypoxia, tachycardia, concern for pulmonary embolus. As such, CT PE was also ordered. CT PE did not mention any signs of pulmonary embolus, but did demonstrate a left upper lobe mass. Patient's states that that worries where the cancer originated and that she should be status post left upper lobectomy. After 1 hour on BiPAP, repeat VBG was obtained which did not demonstrate significant improvement. As such, decision was made to intubate the patient. After intubation, [facility] was consulted for possible transfer given the patient's oncologist is at this outside hospital. However, unable to transfer at this time. Patient remained ventilated and sedated on propofol, however became more arousable and agitated, required Dilaudid. 2-hour ABG demonstrated improvement with a new pH of 7.3 and a PCO2 of 54. Given that the patient cannot be transferred at this time, she was admitted for further management. Above 2 paragraphs per ER physician. The patient did well after intubation from a respiratory standpoint. Has had some problems with breakthrough restlessness on sedation. Is resting comfortably at this point. is at bedside. Plan remains the same as noted above. Hospital Course Hospital Course: pt is on vent with iv sedation atient is a 64-year-old female with a history of lung adenocarcinoma with abdominal metastases as well as brain metastases. at bedside provides history. He states that the patient has been having intractable headache for several weeks, but today she became altered and more somnolent this morning. He states that the patient is only been taking ibuprofen for headache without relief in symptoms. He further states that she has been nausea without any episodes of emesis. Patient appears uncomfortable. states that the patient has had prior cerebral swelling and is currently on steroids. He states that she is currently on 30 mg of prednisone. Patient received chemotherapy 3 days prior to presentation. Otherwise not any fev
--- NOTE | 2020-12-03 23:04 | PC.NURSE ---
s/w Ashley with [facility] and they did accept pt, they have a 12 min flight time and she will call back when they lift off. Kaylyn RAMIREZ notified of the update on [facility]
--- NOTE | 2020-12-03 23:58 | PC.NURSE ---
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 pt was arousable to light stimulation and opening eyes. vent settings transferred over to portable. vss. urine outpt for this shift was 700
--- NOTE | 2020-12-04 00:09 | PC.NURSE ---
wasted 70 ml fentanyl with kyra ramirez into appropriate receptacle extra bag of fentanyl placed in omni fridge
== END 2020-12-03 11:50 | disposition short-term general hospital (02) | DRG 208 ==
LOC: ER 20:46 → 2ND 20:50
PROVIDERS: Admitting Provider Internal Medicine Adolescent Medicine; Emergency Provider Emergency Medicine; PCP Internal Medicine Adolescent Medicine; Visit Provider Internal Medicine Adolescent Medicine
DX: J96.22 Acute and chronic respiratory failure with hypercapnia (principal); C79.31 Secondary malignant neoplasm of brain; C79.89 Secondary malignant neoplasm of other specified sites; C34.32 Malignant neoplasm of lower lobe, left bronchus or lung; Z87.891 Personal history of nicotine dependence; I25.10 Atherosclerotic heart disease of native coronary artery without angina pectoris; E11.9 Type 2 diabetes mellitus without complications; K21.9 Gastro-esophageal reflux disease without esophagitis; E78.5 Hyperlipidemia, unspecified; I10 Essential (primary) hypertension; Z86.73 Personal history of transient ischemic attack (TIA), and cerebral infarction without residual deficits; I25.2 Old myocardial infarction; M19.90 Unspecified osteoarthritis, unspecified site; D63.0 Anemia in neoplastic disease; E87.6 Hypokalemia; F41.9 Anxiety disorder, unspecified; Z79.84 Long term (current) use of oral hypoglycemic drugs
CPT/HCPCS: 31500; 94002; 36415; 70450; 71045; 71275; 80053; 81001; 82803; 82962; 83690; 84484; 85025; 87070; 87205; 94003; 96365; 96366; 96367; 96375; 96376; 99285; 99291; J0330; J2704; Q9967; U0003

== ENCOUNTER → 2021-01-13 12:52 | Outpatient (POV) | payer MEDICARE, SELFPAY ==
[2021-01-13 13:19] VITALS: BP 148/83; PULSE 84; RESP 18; O2SAT 93; BMI 32.3
--- NOTE | 2021-01-13 15:36 | HMH.PAINSOAP ---
[facility] Pain Management SOAP Note Subjective:: Patient is a very pleasant 65-year-old white female who presents today for follow-up. Patient has been seen in our clinic in the past for degenerative disc disease lumbar spine with lumbar radicular symptoms. Patient reports that she was hospitalized on December 01 for hypoxia. At that time, she was placed on a ventilator. While on the ventilator she did go an MRI and was noted to have a cerebellar lesion. Patient does have a history of lung cancer. Patient was seen Dr. Sharma, who did refer the patient to Dr. Bergman oncology. Following the MRI results, Dr. Bergman did send the patient to Dr. Mendez for evaluation. The patient was noted to have a 6 mm lesion in the left superior cerebellar vermis per her MRI report. Dr. Mendez did not recommend resection of the lesion given the size and location. Instead, CyberKnife treatment was performed at [facility]. 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 Patient started her first cycle of chemotherapy on 11/05/2020. Patient has been having significant nausea and vomiting following her chemotherapy treatments. She is now having worsening pain to her low back area. Dr. Mendez did discuss with the patient undergoing medial branch last facet joint injections. She does have a history of lumbar spondylosis and lumbar facet arthropathy. A long discussion was had with both Dr. Bergman and Dr. Mendez. They did recommend the patient undergo injective therapy a week before or the week immediately after chemotherapy treatment due to her platelet levels. Patient's pain is worse when she stands and walks and leans forward. She has had a spinal fusion at L5-S1 on May 22 2020. She has had a lumbar epidural steroid injection in our clinic with no significant relief. Patient's next chemotherapy treatment is scheduled for January 30. She has tried physical therapy in the past with no significant relief. She is also tried oral medications and home stretching with no relief. The lumbar epidural steroid injection did not give her relief. Dr. Mendez did discuss medial branch block/facet joint injections along with RFA treatment. She is here today to proceed with injective therapy. Patient is not on anticoagulation therapy. Review of Systems General: No recent weight changes, no fever, no sleep disturbances Respiratory: No cough, no shortness of air, no recurring pulmonary infections Cardiovascular/peripheral vascular: No chest pain, no palpitations, no edema, no shortness of breath Gastrointestinal: No new onset incontinence, normal bowel movements reported Genitourinary: No new onset incontinence Musculoskeletal: Low back pain worse with standing, walking, and bending forward Psychiatric: [Normal mood/affect] Neurological: [Denies weakness in extremities], [denies balance issues]. 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 Patient does not feel comfortable taking the medication. She does not feel it gives much relief. We discussed changing her medication regimen, as she does have an active cancer diagnosis. Patient does not want to proceed with oral or topical medications at this time. She feels more comfortable with injective therapy. Patient says that she feels the injections may give her more relief. She does have a positive Kemps test. We will schedule her for medial branch block/face
== END ==
PROVIDERS: Visit Provider Clinical Nurse Specialist Family Health
DX: M51.36 Other intervertebral disc degeneration, lumbar region (principal); M54.06 Panniculitis affecting regions of neck and back, lumbar region; M47.816 Spondylosis without myelopathy or radiculopathy, lumbar region
CPT/HCPCS: 99202; G0463

== ENCOUNTER 2021-01-31 08:22 | Day surgery (SDC) | payer MEDICARE, SELFPAY ==
[2021-01-31 08:35] VITALS: BP 133/64; PULSE 117; RESP 20; TEMP 36.6; O2SAT 93; BMI 32.5
[2021-01-31 09:12] VITALS: BP 140/77; PULSE 114; RESP 18; O2SAT 95
[2021-01-31 09:14] VITALS: BP 121/78; PULSE 112; RESP 18; O2SAT 92
[2021-01-31 09:27] VITALS: BP 125/66; PULSE 112; RESP 20; O2SAT 93
--- NOTE | 2021-01-31 09:46 | HMH.PMPROC ---
- Procedure Date: 01/31/21 Time: 09:47 Anesthesiologist:: Serafin Mckinley MD Complications:: None Pre-procedure Diagnosis:: Degenerative disc disease of lumbar spine with lumbar spondylosis and lumbar facet arthropathy Post-procedure Diagnosis:: Same Indications for Procedure:: This patient is a pleasant 65-year-old white female who we are treating for lumbar spondylosis and lumbar facet arthropathy. She is currently undergoing chemotherapy for her cancer treatment. She has had a previous fusion done by Dr. Mendez at L5-S1. We will plan on bilateral lumbar medial branch block/facet joint injections of L3-L4 L4-L5 today. Her platelet count is within normal limits. Procedure Details:: Lumbar medial branch block Informed consent was obtained and the risks and benefits of the procedure was explained to the patient. The back was prepped using ChloraPrep. The skin and subcutaneous tissues were anesthetized using lidocaine. I placed 22-gauge spinal needles into the facet joint/medial branches of L3-L4, L4-L5 bilaterally. Needle placement was confirmed with dye. After this we injected 3 mL bupivacaine 0.25% and Depo-Medrol 20 mg into each facet joint/medial branch of L3-L4,L4-L5 bilaterally. We used a total of 80 mg Depo-Medrol for both levels bilaterally. The patient tolerated the procedure well with no complications. Plan and Disposition:: We will follow-up with her in 2 weeks. Will reevaluate symptoms at that time. If these are successful we will plan on RF ablation to the facet joint/medial branches of L3-4 and L4-L5 bilaterally. We will also coordinate our schedule to check her platelet count and coags and plan on injections the week prior to her chemotherapy infusions.
== END 2021-01-31 09:28 | disposition home or self-care (01) ==
LOC: SC.PAINP 08:24
PROVIDERS: PCP Internal Medicine Adolescent Medicine; Visit Provider Anesthesiology
DX: M51.36 Other intervertebral disc degeneration, lumbar region (principal); M47.816 Spondylosis without myelopathy or radiculopathy, lumbar region; M54.06 Panniculitis affecting regions of neck and back, lumbar region; E78.5 Hyperlipidemia, unspecified; I10 Essential (primary) hypertension; I25.10 Atherosclerotic heart disease of native coronary artery without angina pectoris; K21.9 Gastro-esophageal reflux disease without esophagitis; M19.90 Unspecified osteoarthritis, unspecified site; E11.9 Type 2 diabetes mellitus without complications; I25.2 Old myocardial infarction; Z86.73 Personal history of transient ischemic attack (TIA), and cerebral infarction without residual deficits
CPT/HCPCS: 64493; 64494; J1030; Q9966

== ENCOUNTER 2021-02-18 14:57 | Emergency (ER) | payer MEDICARE, SELFPAY ==
[2021-02-18 15:11] VITALS: BP 126/89; PULSE 98; RESP 18; TEMP 36.6; O2SAT 98; BMI 13.6
[2021-02-18 15:30] LABS: UTC Strep Screen (Rapid) Negative (Negative)
--- NOTE | 2021-02-18 15:47 | HMH.EDUTC ---
[facility] Disposition Condition on Discharge: Fair Time of Disposition: 16:10 <Maddison Chambers - Last Filed: 02/18/21 18:09> Condition on Discharge: Good <Jessie Oliva - Last Filed: 02/18/21 23:01> Clinical Impression: Dysphagia Qualifiers: Dysphagia type: unspecified Qualified Code(s): R13.10 - Dysphagia, unspecified Disposition: Home, Self-Care Instructions: DI for Esophageal Dysphagia, DI for Oropharyngeal Dysphagia Additional Instructions: You have been evaluated for difficulty swallowing, dysphagia. Please thicken all liquids to avoid aspiration. Please follow-up with your oncology team as soon as available, within 24 to 48 hours. Return to the emergency department at once for any new or worsening symptoms Referrals: Jordy Akers MD [Primary Care Provider] - Medical Decision Making - Lab Data Result diagrams: 02/18/21 16:55 02/18/21 16:55 <Maddison Chambers - Last Filed: 02/18/21 18:09> - Adryan Inquiry Pt receiving controlled substance: No Adryan was queried for this patient: No - Lab Data Result diagrams: 02/18/21 16:55 02/18/21 16:55 <Jessie Oliva E - Last Filed: 02/18/21 23:01> Vital Signs: 02/18/21 15:11 02/18/21 16:09 02/18/21 19:42 Temperature 97.8 F 98 F 98 F Temperature Source Oral Oral Oral Pulse Rate 78 Pulse Rate [Left] 98 H 78 Respiratory Rate 18 20 20 Blood Pressure 120/74 Blood Pressure [Right Arm] 126/89 123/74 Blood Pressure Mean [Right Arm] 101 90 Blood Pressure Position [Right Arm] Sitting 02 Sat by Pulse Oximetry 98 98 Oxygen Delivery Method Room Air - Lab Data Lab Results 02/18/21 15:20: Strep Scn Rapid Clinic Negative 02/18/21 16:55: WBC 4.2 L, RBC 2.91 L, Hgb 9.4 L, Hct 31.4 L, MCV 107.8 H, MCH 32.1 H, MCHC 29.8 L, RDW 24.5 H, Plt Count 242, MPV 9.3, Neut % (Auto) 45.7, Lymph % (Auto) 38.9, [place] % (Auto) 14.4 H, Eos % (Auto) 0.3, Baso % (Auto) 0.7, Neut # (Auto) 1.9, Lymph # (Auto) 1.6, [place] # (Auto) 0.6, Eos # (Auto) 0.0, Baso # (Auto) 0.0 02/18/21 16:55: Sodium 145, Potassium 4.3, Chloride 104, Carbon Dioxide 30, Anion Gap 15.3 H, BUN 23 H, Creatinine 1.10 H, Estimated Creat Clear 63, Estimated GFR 50 L, Est GFR ( Amer) 60, Glucose 135 H, Calcium 9.9, Total Bilirubin 0.4, AST 38 H, ALT 41, Alkaline Phosphatase 110, Total Protein 8.2 D, Albumin 4.5, Globulin 3.7 H, Albumin/Globulin Ratio 1.2 Orders (Tests/Meds): ED MEDICATIONS Discontinued Medications Generic Name Dose Route Start Last Admin Trade Name Neilq PRN Reason Stop Dose Admin Dexamethasone Sodium Phosphate 10 mg 02/18/21 18:59 02/18/21 19:20 Dexamethasone 4mg/Ml 5ml Mdv PO 02/18/21 19:00 10 mg ONCE ONE Administration Iopamidol 75 ml 02/18/21 17:57 02/18/21 17:58 Iopamidol-370 (76%);100ml Bottle IV 02/18/21 17:58 75 ml ONCE ONE Administration Sodium Chloride 10 ml 02/18/21 17:57 02/18/21 17:59 Sodium Chloride 0.9% 10ml Syr (Rad Only) IV 02/18/21 17:58 10 ml ONCE ONE Administration ORDERS Category Date Time Status Strep Screen Confirmation Stat Micro 02/18/21 15:20 Received Medical Decision Narrative: Strep test neg disc (Jessie Oliva) [facility] HPI <Maddison Chambers - Last Filed: 02/18/21 18:09> - General Mode of Arrival: Ambulatory Source of Information: Patient Limitations: No Limitations Description of Symptoms (Recalled from Triage Doc. by RN): pt c/o difficulty swallowing and SOA. pt states whenever she tries to drink she is getting choked up. pt is able to eat. HEENT Symptoms (Recalled from RN notes): Yes (sore throat and difficulty swallowing) Resp Symptoms (Recalled from RN notes): No (soa) Skin Symptoms (Recalled from RN notes): No MS Symptoms (Recalled from RN notes): No Functional Status (Recalled from RN notes): na - History of Present Illness Provider Complaint: Patient state that yesterday she noticed she felt a little funny in her throat States that she was able to eat food but everytime she would try to drink so
--- NOTE | 2021-02-18 15:50 | CT_ITS ---
PROCEDURE INFORMATION: Exam: CT Neck With Contrast Exam date and time: 02/18/2021 3:50 PM Age: 65 years old Clinical indication: Dysphagia / difficulty swallowing; Patient HX: Patient was intubated in November of 2020. HX of stage 4 lung cancer. Dysphagia. ; Additional info: Dysphagia, cancer. History of brain Mets. TECHNIQUE: Imaging protocol: Computed tomography images of the neck with contrast. Radiation optimization: All CT scans at this facility use at least one of these dose optimization techniques: automated exposure control; mA and/or kV adjustment per patient size (includes targeted exams where dose is matched to clinical indication); or iterative reconstruction. 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 Mastoid air cells: Multiple right mastoid air cell opacities, possible mastoiditis. Left mastoid is unremarkable. Paranasal sinuses: Thick secretions pooling in the posterior right maxillary sinus suspicious for sinusitis. Minimal bilateral ethmoid mucosal thickening. No significant sinus opacification, as visualized. Nasopharynx: No acute findings in the nasopharynx. Dental: Chronic dental disease with missing teeth and metallic artifacts. Oropharynx: No acute findings in the oropharynx. No significant tonsillar enlargement. Minimal right tonsillar calcification series 3, image 33, likely sequela of old healed infection. Floor of mouth is unremarkable as visualized, but is partially obscured by metallic dental artifacts. Hypopharynx: Hypopharynx is unremarkable. Larynx: Larynx is unremarkable. Vocal cords and epiglottis appear normal. Retropharyngeal space: No retropharyngeal swelling, mass or fluid collection. Submandibular/Parotid glands: Parotid and submandibular glands are unremarkable. Thyroid: Slightly heterogeneous thyroid gland with tiny hypoattenuating nodules of up to 4 mm, coronal series 601, image 27. No significantly enlarged or calcified nodules requiring follow-up. Lymph nodes: No significantly enlarged lymph nodes by short axis criteria. Trachea: Trachea is unremarkable, with no significant stenosis or endotracheal mass. Lungs: Slight emphysematous changes in the visualized upper lungs. No consolidation or mass. Bones/joints: Spinal degenerative changes. No acute fracture or high-grade listhesis, as visualized. Vasculature: Atherosclerotic calcified plaques in the cervical carotid arteries. No acute findings. Soft tissues: There are no soft tissue masses or fluid collections. Other findings: Left hilar/mediastinal surgical clips noted in the chest. IMPRESSION: 1. No evidence of airway obstruction or tracheal stenosis. 2. Partial opacification of right mastoid, correlate for mastoiditis. 3. Thick secretions layering in the right maxillary sinus, possible acute sinusitis. 4. No acute findings in the soft tissues of the neck. 5. Tiny thyroid nodules up to 4 mm, no follow-up indicated per ACR guidelines. 6. Additional nonemergency and chronic findings as above. COMMENTS: Consistent with the [employer]'s Incidental Findings Committee white paper (J Am Chandni Radiol 2015): In patients aged 35 years and older with an incidental thyroid nodule equal to or greater than 1.[address], MRI or extrathyroidal US, further evaluation with dedicated thyroid US is recommended for patients with normal life expectancy and without comorbidities. For smaller nodules without suspicious features, no furth
--- NOTE | 2021-02-18 15:50 | HMH.EDGENADL ---
ED Disposition Clinical Impression: Dysphagia Qualifiers: Dysphagia type: unspecified Qualified Code(s): R13.10 - Dysphagia, unspecified Disposition: Home, Self-Care Condition on Discharge: Fair Instructions: DI for Esophageal Dysphagia, DI for Oropharyngeal Dysphagia Additional Instructions: You have been evaluated for difficulty swallowing, dysphagia. Please thicken all liquids to avoid aspiration. Please follow-up with your oncology team as soon as available, within 24 to 48 hours. Return to the emergency department at once for any new or worsening symptoms Referrals: Jordy Akers MD [Primary Care Provider] - Time of Disposition: 18:57 - Critical Care Critical Care Time: No Attestation: On 02/18/21, the high probability of a clinically significant, sudden or life threatening deterioration of the following system(s) required my full and direct attention, intervention and personal management. The time I documented below is in addition to time spent performing reported procedures but includes the following listed in this critical care notation. Medical Decision Making - Medical Records Medical records reviewed: Yes: I reviewed the patient's medical records. - Adryan Inquiry Pt receiving controlled substance: No Vital Signs: 02/18/21 15:11 02/18/21 16:09 Temperature 97.8 F 98 F Temperature Source Oral Oral Pulse Rate [Left] 98 H 78 Respiratory Rate 18 20 Blood Pressure [Right Arm] 126/89 123/74 Blood Pressure Mean [Right Arm] 101 90 Blood Pressure Position [Right Arm] Sitting 02 Sat by Pulse Oximetry 98 98 Oxygen Delivery Method Room Air - Lab Data Lab Results 02/18/21 15:20: Strep Scn Rapid Clinic Negative 02/18/21 16:55: WBC 4.2 L, RBC 2.91 L, Hgb 9.4 L, Hct 31.4 L, MCV 107.8 H, MCH 32.1 H, MCHC 29.8 L, RDW 24.5 H, Plt Count 242, MPV 9.3, Neut % (Auto) 45.7, Lymph % (Auto) 38.9, Arroyo % (Auto) 14.4 H, Eos % (Auto) 0.3, Baso % (Auto) 0.7, Neut # (Auto) 1.9, Lymph # (Auto) 1.6, Arroyo # (Auto) 0.6, Eos # (Auto) 0.0, Baso # (Auto) 0.0 02/18/21 16:55: Sodium 145, Potassium 4.3, Chloride 104, Carbon Dioxide 30, Anion Gap 15.3 H, BUN 23 H, Creatinine 1.10 H, Estimated Creat Clear 63, Estimated GFR 50 L, Est GFR ( Amer) 60, Glucose 135 H, Calcium 9.9, Total Bilirubin 0.4, AST 38 H, ALT 41, Alkaline Phosphatase 110, Total Protein 8.2 D, Albumin 4.5, Globulin 3.7 H, Albumin/Globulin Ratio 1.2 Result diagrams: 02/18/21 16:55 02/18/21 16:55 Orders (Tests/Meds): ED MEDICATIONS Discontinued Medications Generic Name Dose Route Start Last Admin Trade Name Freq PRN Reason Stop Dose Admin Dexamethasone Sodium Phosphate 10 mg 02/18/21 18:59 02/18/21 19:20 Dexamethasone 4mg/Ml 5ml Mdv PO 02/18/21 19:00 10 mg ONCE ONE Administration Iopamidol 75 ml 02/18/21 17:57 02/18/21 17:58 Iopamidol-370 (76%);100ml Bottle IV 02/18/21 17:58 75 ml ONCE ONE Administration Sodium Chloride 10 ml 02/18/21 17:57 02/18/21 17:59 Sodium Chloride 0.9% 10ml Syr (Rad Only) IV 02/18/21 17:58 10 ml ONCE ONE Administration ORDERS Category Date Time Status Strep Screen Confirmation Stat Micro 02/18/21 15:20 Received - CT Data CT Scan: Other Time Received: 18:[address] Reviewed: Yes: I have reviewed the patient's CT results, I have viewed the radiologist's interpretation Preliminary Findings: Normal/NAD Findings Narrative: IMPRESSION: 1. No evidence of airway obstruction or tracheal stenosis. 2. Partial opacification of right mastoid, correlate for mastoiditis. 3. Thick secretions layering in the right maxillary sinus, possible acute sinusitis. 4. No acute findings in the soft tissues of the neck. 5. Tiny thyroid nodules up to 4 mm, no follow-up indicated per ACR guidelines. 6. Additional nonemergency and chronic findings as above Medical Decision Narrative: In summary this is a 65-year-old female with history of stage IV lung cancer presenting to the emergency
--- NOTE | 2021-02-18 15:51 | XR_ITS ---
PROCEDURE: XR CHEST PORTABLE CLINICAL HISTORY: dysphagia COMPARISON: CT CT ANGIO CHEST PE PROTOCOL from 12/01/2020 CR XR CHEST PORTABLE from 12/01/2020 CR XR CHEST PORTABLE from 12/02/2020 CR XR CHEST PORTABLE from 12/03/2020 FINDINGS: The cardiomediastinal silhouette and pulmonary vascularity are within normal limits. There are surgical clips in the left hilum. Left hemidiaphragm is slightly elevated. Lungs are clear of acute infiltrate. Old left-sided rib fractures. IMPRESSION: No change with no acute finding Dictated by: Giancarlo Sadler MD 02/18/2021 16:27 Giancarlo Sadler MD in [place] 02/18/2021 16:27
[2021-02-18 16:09] VITALS: BP 123/74; PULSE 78; RESP 20; TEMP 36.6; O2SAT 98; BMI 32.5
[2021-02-18 17:20] LABS: Basophils % 0.7 % (0.1-2.0); Eosinophils % 0.3 % (0.1-12.0); Hematocrit 31.4 % (37.0-47.0); Hemoglobin 9.4 g/dL (12.2-16.2); Lymphocytes # 1.6 K/mm3 (0.7-4.5); Lymphocytes % 38.9 % (10-50); Mean Corpuscular HGB Conc 29.8 g/dL (31.8-35.4); Mean Corpuscular Hemoglobin 32.1 pg (27.0-31.2); Mean Corpuscular Volume 107.8 fl (81-99); Mean Platelet Volume 9.3 fl (7.4-10.4); Monocytes # 0.6 K/mm3 (0.1-1.0); Monocytes % 14.4 % (1.7-9.3); Neutrophils # 1.9 K/mm3 (1.8-7.8); Neutrophils % 45.7 % (37.0-80.0); Platelet Count 242 K/mm3 (142-424); Red Blood Count 2.91 M/mm3 (4.20-5.40); Red Cell Distribution Width 24.5 % (11.5-17.5); White Blood Count 4.2 K/mm3 (4.8-10.8)
[2021-02-18 17:29] LABS: Chloride 104 mmol/L (98-107); Sodium 145 mmol/L (136-145)
[2021-02-18 17:30] LABS: Potassium 4.3 mmoL/L (3.5-5.1)
[2021-02-18 17:32] LABS: Alanine Aminotransferase 41 U/L (12-78); Albumin Level 4.5 g/dl (3.5-5.0); Albumin/Globulin Ratio 1.2 (1.1-1.8); Alkaline Phosphatase 110 U/L (38-126); Anion Gap 15.3 mEq/L (5-15); Aspartate Amino Transferase 38 U/L (14-36); Bilirubin,Total 0.4 mg/dl (0.2-1.3); Blood Urea Nitrogen 23 mg/dl (7-17); Carbon Dioxide 30 mmol/L (22.0-30.0); Creatinine Clearance Estimated 63 mL/min (50-200); Estimated Glomerular Filt Rate 50 ml/min (>60); GFR (African American) 60 ML/MIN (>60); Globulin 3.7 g/dL (1.3-3.2); Total Protein,Serum 8.2 g/dl (6.3-8.2)
[2021-02-18 17:33] LABS: Calcium 9.9 mg/dl (8.4-10.2); Glucose 135 mg/dl (74-100)
--- NOTE | 2021-02-18 19:01 | PC.NURSE ---
pt and family update on plan of care
[2021-02-18 19:42] VITALS: BP 120/74; PULSE 78; RESP 20; TEMP 36.6; O2SAT 98
== END 2021-02-18 19:44 | disposition home or self-care (01) ==
LOC: UTC 15:00 → ER 15:46
PROVIDERS: Nurse Practitioner; Emergency Provider Emergency Medicine; PCP Internal Medicine Adolescent Medicine
DX: R13.10 Dysphagia, unspecified (principal); C34.90 Malignant neoplasm of unspecified part of unspecified bronchus or lung; I25.10 Atherosclerotic heart disease of native coronary artery without angina pectoris; I10 Essential (primary) hypertension; E78.5 Hyperlipidemia, unspecified; K21.9 Gastro-esophageal reflux disease without esophagitis; E11.9 Type 2 diabetes mellitus without complications
CPT/HCPCS: 70491; 71045; 80053; 85025; 87880; 96365; 99282; Q9967

== ENCOUNTER → 2021-02-24 10:39 | Outpatient (POV) | payer MEDICARE, SELFPAY ==
[2021-02-24 10:48] VITALS: BP 145/88; PULSE 107; RESP 18; O2SAT 94; BMI 32.8
--- NOTE | 2021-02-24 11:57 | HMH.PAINSOAP ---
[facility] Pain Management SOAP Note Subjective:: Patient is a pleasant 65-year-old white female who presents today for follow-up after medial branch block/facet joint injections at L3-L4 L4-L5. She reports to have not gotten any relief. Patient has pain in her low back area with standing. The pain is a 10 out of 10 with standing. She has had a lumbar epidural steroid injection as well as medial branch blocks with no significant relief. She is not tender to palpation to the area. She has had 6 rounds of chemotherapy since last week and says that she does have a follow-up with Dr. Bergman on the . The patient has not gotten any significant relief with injective therapy in our clinic. She is here today to discuss options. Review of Systems General: No recent weight changes, no fever, no sleep disturbances Respiratory: No cough, no shortness of air, no recurring pulmonary infections Cardiovascular/peripheral vascular: No chest pain, no palpitations, no edema, no shortness of breath Gastrointestinal: No new onset incontinence, normal bowel movements reported Genitourinary: No new onset incontinence Musculoskeletal: Low back pain with standing?nonradicular Psychiatric: [Normal mood/affect] Neurological: [Denies weakness in extremities], [denies balance issues] Objective:: Physical exam General: Alert and oriented x3, no acute distress, pleasant and cooperative, [on room air] Lungs: Respirations even and unlabored, symmetrical chest expansion Eyes: PERRL Musculoskeletal: Flexion and extension of lumbar [spine] somewhat guarded secondary to pain, strength in upper and lower extremities [5/5], [antalgic gait noted] Neurological: Speech clear, [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 Mckinley today. Patient is currently stage IV lung cancer. Patient symptoms are primarily in her low back with radicular pain into the left leg intermittently. Patient has not had a recent MRI since 12/11/2019. Given her history and current treatment, there is concern for metastasis versus fracture. She does take chronic steroids. We will schedule the patient for an MRI of her lumbar spine. She is not having any changes in bowel or bladder, but is having radicular pain into the left lower extremity. We will plan to follow-up with her after that MRI to discuss a further plan of care. She was given spinal cord stimulator information today and we did discuss the intrathecal pain pump as well. These may be options for her in the future, as injective therapy has not been beneficial for the patient at this point. The patient was referred to us by Dr. Mendez due to the patient having surgery in April 2020 and continued to have significant pain. He did not feel there was any other surgical options for the patient from a neurosurgical standpoint at that time. We will see the patient back in the clinic after her MRI for discussion. Patient has been instructed to contact the clinic with any concerns before the next appointment. Dr. Mckinley has reviewed this note and agrees with this plan of care. This note was dictated using voice recognition software and make contain errors or omissions. [facility] History I have reviewed the patient's past medical history: Yes Medical History: Reports:: Cancer, Coronary Artery Disease, Diabetes Mellitus Type 2, Gastroesophageal Reflux Disease(GERD), Hyperlipidemia, Hypertension, Lung Disease, Myocardial Infarction, Transient Ischemic Attacks (TIA) Denies:: Diabetes Mellitus Type 1, Internal Pacemaker, MRSA, Seizures *Have you ever received a pneumonia vaccine?: Yes *Have you received a flu vaccine this season?: No Other Medical History: Reports: Arthritis. Denies: Blood Transfusion Reaction Other Surgeries: Yes: Angioplasty, Appendectomy, Cardiac Catheterization, Colonoscopy, Tubal Ligation, Other (BA
== END ==
PROVIDERS: Visit Provider Clinical Nurse Specialist Family Health
DX: M51.16 Intervertebral disc disorders with radiculopathy, lumbar region (principal)
CPT/HCPCS: 99212; G0463

== ENCOUNTER → 2021-02-25 10:50 | Outpatient (CLI) | payer MEDICARE, SELFPAY ==
--- NOTE | 2021-02-25 10:53 | FL_ITS ---
PROCEDURE: FL BARIUM SWALLOW MODIFIED CLINICAL INDICATION: DYSPHAGIA COMPARISON: No exams were available for comparison TECHNIQUE: Patient administered varying consistencies of barium contrast, while viewed in lateral position under real-time fluoroscopy with cine recording. FLUOROSCOPY TIME:1.59 minutes The study was performed in conjunction with speech pathologist. Please see that report & recommendations. FINDINGS: Patient was given varying consistencies of barium. No aspiration or penetration. No impairment identify.. IMPRESSION: Unremarkable modified barium swallow. Please see speech pathologist report and recommendations. Dictated by: Giancarlo Sadler MD 03/10/2021 08:57 Giancarlo Sdaler MD in [place] 03/10/2021 08:57
--- NOTE | 2021-02-25 11:37 | HMH.SLMBS2 ---
Speech & Language Evaluation Speech/Language Mod Barium Swallow Start: 02/25/21 11:31 Freq: once Status: Complete Protocol: Document 02/25/21 11:31 SANDIP (Rec: 02/25/21 11:36 SANDIP [id number]) General Information General Current Food Consistancy Regular,Thin Liquids Dentition Good Dentition Oxygen Status Room Air Facial Symmetry Symmetrical Patient Orientation Person,Place,Time,Situation Ability to Follow Directions Excellent Communication Ability No Impairment MBS Recommendations Diet Dietary Recommendations Regular,Thin Liquids Treatment/Strategies Strategy/Precaution Recommend Sitting Upright (90 deg),Small Bites and Sips,Alternate Liquids/Solids Referrals/Other Recommended Referrals ENT Consult Other Recommendations Speech therapy evaluation for voice once cleared from ENT. Mod Barium Swallow Impressions Summary and Impressions Oral Phase Impression No Impairment (WFL) Oral Phase Summary Ms. Yeh was given the following consistencies: thins via straw and open cup, pudding, pureed, mechancial soft, regular, and pill with thin wash. No oral phase impairments were noted during evaluation. Pharyngeal Phase Impression No Impairment (WFL) Pharyngeal Phase Summary No signs or symptoms of aspiration or other pharyngeal phase impairments noted during evaluation. Speech/Language MBS Assessment/Goals/Plan Assessment Date of Evaluation: 02/25/21 Evaluation Type Initial Certification Assessment/Problems Dysphagia Does Patient Qualify for Service No Qualify/Failure Comment No signs of dysphagia were noted during the evaluation Plan Pt/Guardian verbally ack understanding Yes of dx/prognosis/goals G -code Required No Mod Barium Swallow Setup Exam Setup Radiologist Giancarlo Sadler Level of Consciousness Awake,Alert,Appropriate, Follows Commands Position (degrees) 90 Mod Barium Swallow-Lat View Textures Lateral View Food Presentation Thin Liquid via Cup,Thin Liquid via Straw,Pureed Food- Thick,Mech. Soft Food- Regular ,Barium Tablet,Regular Food, Pudding Oral Phase Labial Closure No Impairment (WFL)
== END ==
PROVIDERS: PCP Internal Medicine Adolescent Medicine; Visit Provider Nurse Practitioner Family
DX: R13.10 Dysphagia, unspecified (principal)
CPT/HCPCS: 70371; 92611

== ENCOUNTER → 2021-03-04 08:29 | Outpatient (CLI) | payer MEDICARE, SELFPAY ==
--- NOTE | 2021-03-04 08:36 | MR_ITS ---
PROCEDURE: MR LUMBAR SPINE WO CON CLINICAL INDICATION: BACK PAIN Low back pain COMPARISON: MR MR LUMBAR SPINE WO CON from 12/06/2019 MR MR HEAD/BRAIN WO/W CON from 08/01/2020 TECHNIQUE: Standard multiplanar multiecho sequences are performed without contrast. 3-D MIP and myelographic images are also rendered and reviewed FINDINGS: There has been interval lumbar surgery with inter pedicular screws at L5 and S1. Spinal cord ends at the L1 level. T11-T12, T12-L1, L1-L2, and L2-L3 have an unremarkable appearance. L3-L4: No change mild facet and ligamentum hypertrophy with mild bilateral lateral recess and foraminal narrowing. L4-5: Unremarkable. L5-S1: 8 mm anterolisthesis of L5 on S1 with degenerative disc disease at that level and postsurgical changes with inter pedicular screws. Mild bulging disc. There is mild facet hypertrophic change on the mild left-sided recess narrowing. The transverse narrowing of the canal may be slightly improved from the previous exam. There remains bilateral foraminal narrowing. No bony destructive process is evident with no evidence of metastatic disease. No extruded herniated disc is evident. IMPRESSION: 1. No evidence of metastatic disease. No extruded herniated disc. 2. L3-L4: No change mild facet and ligamentum hypertrophy with mild bilateral lateral recess and foraminal narrowing. 3. L5-S1: 8 mm anterolisthesis of L5 on S1 with degenerative disc disease at that level and postsurgical changes with inter pedicular screws. Mild bulging disc. There is mild facet hypertrophic change on the mild left-sided recess narrowing. The transverse narrowing of the canal may be slightly improved from the previous exam. There remains bilateral foraminal narrowing Dictated by: Giancarlo Sadler MD 03/05/2021 12:44 Giancarlo Sadler MD in [place] 03/05/2021 12:44
== END ==
PROVIDERS: PCP Internal Medicine Adolescent Medicine; Visit Provider Clinical Nurse Specialist Family Health
DX: M54.59 Other low back pain (principal); M54.16 Radiculopathy, lumbar region
CPT/HCPCS: 72148; 76376

== ENCOUNTER → 2021-03-06 09:24 | Outpatient (POV) | payer MEDICARE, SELFPAY ==
[2021-03-06 09:32] VITALS: BP 100/60; PULSE 110; RESP 18; O2SAT 95; BMI 32.8
--- NOTE | 2021-03-06 10:50 | HMH.PAINSOAP ---
[facility] Pain Management SOAP Note Subjective:: Patient is a 65-year-old white female who presents today for follow-up. The patient is being treated in the clinic for chronic low back pain with radiation into lower extremities. Patient is also being treated routinely for stage IV lung cancer. She does undergo chemotherapy treatments. She has had medial branch blocks at L3-L4 L4-L5 with minimal relief. She is also had lumbar epidural steroid injections. She got minimal relief from the epidural steroid injection. She is having pain in her low back area with radiation into bilateral buttock hips and legs. She says raising legs and sitting give her significant relief. She is tender to palpation to the area. She does rate her pain a 10 out of 10 with standing walking and with palpation to the area. The patient is scheduled to undergo a Port-A-Cath implant. She does not want to do any further injective therapy until insertion of the port. Patient I have discussed in the past possible spinal cord stimulation versus intrathecal therapy as long-term pain relief. At this time she does not want to proceed with any implanted devices while undergoing chemotherapy treatment. She is not interested in oral medication management at this time. Patient has taken tramadol in the past and says it does not help. She has taken [place] which she says caused her to feel oversedated. Review of Systems General: No recent weight changes, no fever, no sleep disturbances Respiratory: No cough, no shortness of air, no recurring pulmonary infections Cardiovascular/peripheral vascular: No chest pain, no palpitations, no edema, no shortness of breath Gastrointestinal: No new onset incontinence, normal bowel movements reported Genitourinary: No new onset incontinence Musculoskeletal: Low back pain with radiation into bilateral buttock, hips, and legs worse with standing and walking, improved with sitting and elevation of legs Psychiatric: [Normal mood/affect] Neurological: Weakness bilateral lower extremities Objective:: Physical exam General: Alert and oriented x3, no acute distress, pleasant and cooperative Lungs: Respirations even and unlabored, symmetrical chest expansion Eyes: PERRL Musculoskeletal: Flexion and extension of lumbar [spine] somewhat guarded secondary to pain, [antalgic gait noted], positive Jose Cruz's test, positive compression test, positive distraction test, positive Bhakti's test Neurological: Speech clear, no gross sensory deficit Assessment:: Sacroiliitis, low back pain Plan:: Patient I did review her CT scan which does not show any changes and was negative for metastasis cancer or herniated disc. We did discuss possible SI joint injections. She has tried lumbar epidural steroid injections as well as medial branch blocks with minimal relief. She has had physical therapy in the past with minimal relief. She is limited with mobility and limited with home stretching due to pain. She is continue with chemotherapy treatment. She is scheduled to undergo port implant for chemotherapy treatments. She would like to postpone further injective therapy until she is healed from her port implant. We will schedule the patient for bilateral SI joint injections following implant of Port-A-Cath. She will contact the clinic for scheduling of these injections. She does have a positive Jose Cruz's, compression, distraction test today. She is tender to palpation to bilateral SI joints. Patient has had to routinely undergo lab work prior to injections for platelet count due to chemotherapy treatment. She does report to be taking a chemotherapy medication that does increase her risk for bleeding. Possible side effects of corticosteroids have been discussed with the patient. Risks and benefits of the procedure have been explained to the patient. Patient would like to proceed with the procedure. Patient has been instructed to contact the clinic with any
== END ==
PROVIDERS: Visit Provider Clinical Nurse Specialist Family Health
DX: M46.1 Sacroiliitis, not elsewhere classified (principal); M54.50 Low back pain, unspecified
CPT/HCPCS: 99212; G0463

== ENCOUNTER → 2021-03-17 13:55 | Outpatient (CLI) | payer MEDICARE, SELFPAY | PROVIDERS: Visit Provider Internal Medicine Adolescent Medicine | DX: Z20.822 Contact with and (suspected) exposure to COVID-19 (principal) | CPT/HCPCS: C9803; U0003; U0005 ==

== ENCOUNTER → 2021-05-02 09:23 | Outpatient (POV) | payer MEDICARE, SELFPAY ==
[2021-05-02 09:29] VITALS: BP 144/119; PULSE 100; RESP 18; TEMP 36.2; O2SAT 96; BMI 32.8
--- NOTE | 2021-05-02 10:20 | HMH.PAINSOAP ---
[facility] Pain Management SOAP Note Subjective:: This patient is a pleasant 56-year-old white female who we are treating for low back pain and bilateral hip pain with lumbar radiculopathy symptoms. She is currently undergoing chemotherapy for stage IV lung cancer. She has had lumbar pleural steroid injections and medial branch blocks with minimal relief of her symptoms. She is tender over the SI joints. I do believe she would benefit from bilateral SI joint injections. She does have a positive Jose Cruz's test bilaterally. She is positive Charlee test bilaterally. She is positive SI joint compression test bilaterally. She is positive distraction test bilaterally. We will seek approval for bilateral SI joint injections under fluoroscopy to see if this helps with her pain symptoms. Objective:: Alert and oriented x3 no acute distress. Patient does have an antalgic gait. Motor strength of the lower extremities is 5/5. There is no gross sensory deficit. She is tender over both SI joints. Positive Jose Cruz's test bilaterally. Positive Charlee test bilaterally. Positive SI joint compression test bilaterally. Positive distraction test bilaterally. Assessment:: Sacroiliitis Plan:: We will seek approval for bilateral SI joint injections under fluoroscopy to see if this helps with her pain symptoms. [facility] History Medical History: Reports:: Cancer, Coronary Artery Disease, Diabetes Mellitus Type 2, Gastroesophageal Reflux Disease(GERD), Hyperlipidemia, Hypertension, Lung Disease, Myocardial Infarction, Transient Ischemic Attacks (TIA) Denies:: Diabetes Mellitus Type 1, Internal Pacemaker, MRSA, Seizures *Have you ever received a pneumonia vaccine?: Yes *Have you received a flu vaccine this season?: Yes Other Medical History: Reports: Arthritis. Denies: Blood Transfusion Reaction Other Surgeries: Yes: Angioplasty, Appendectomy, Cardiac Catheterization, Colonoscopy, Tubal Ligation, Other (BACK SX, ABD MASS). No: Pacemaker Amputation: No Fractures: No - *Social History Smoking Status: Former smoker Tobacco Type: cigarettes # Packs/Day (cigarettes): 1 Alcohol Intake: never Substance Use Type: denies use, other *Occupational Status:: disabled Housing: house Household Members: spouse *Travel in the last 8 weeks: None Family Hx:: Cancer, Heart Attack
== END ==
PROVIDERS: PCP Internal Medicine Adolescent Medicine; Visit Provider Anesthesiology
DX: M46.1 Sacroiliitis, not elsewhere classified (principal)
CPT/HCPCS: 99212; G0463

== ENCOUNTER 2021-05-14 10:45 | Day surgery (SDC) | payer MEDICARE, SELFPAY ==
[2021-05-14 10:56] VITALS: BP 132/77; PULSE 108; RESP 20; TEMP 35.9; O2SAT 95; BMI 32.8
[2021-05-14 11:17] VITALS: BP 144/86; PULSE 109; RESP 18; O2SAT 95
[2021-05-14 11:18] VITALS: PULSE 108; RESP 18; O2SAT 95
--- NOTE | 2021-05-14 11:19 | HMH.PMPROC ---
- Procedure Date: 05/14/21 Time: 11:19 Anesthesiologist:: Serafin Mckinley MD Complications:: None Pre-procedure Diagnosis:: Sacroiliitis Post-procedure Diagnosis:: Same Indications for Procedure:: This patient is a pleasant 65-year-old white female who we have been treating for low back pain, bilateral hip pain and lumbar radiculopathy symptoms. She does have a positive Jose Cruz's test bilaterally. She is positive Charlee test bilaterally. Is positive SI joint compression test bilaterally. She has a positive distraction test bilaterally. We will plan on bilateral SI joint injections under fluoroscopy today to see if this helps with her pain symptoms. Procedure Details:: B/L SI joint injection under fluoroscopy Informed consent was obtained and the risks and benefits of the procedure was explained to the patient. The patient was taken to the procedure room and placed prone on the procedure table. The patient was prepped using ChloraPrep. The skin and subcutaneous tissues overlying the SI joints were anesthetized using lidocaine. I placed a 22-gauge needle first in the left SI joint and second in the right SI joint. Needle placement was confirmed with dye. After this we injected 5 mL bupivacaine 0.25% and Depo-Medrol 40 mg into each SI joint. Patient tolerated the procedure well with no complication. Plan and Disposition:: We will follow-up with her in 2 weeks. Will reevaluate symptoms at that time.
[2021-05-14 11:27] VITALS: BP 132/86; PULSE 108; RESP 20; O2SAT 94
== END 2021-05-14 11:28 | disposition home or self-care (01) ==
LOC: SC.PAINP 10:47
PROVIDERS: PCP Internal Medicine Adolescent Medicine; Visit Provider Anesthesiology
DX: M46.1 Sacroiliitis, not elsewhere classified (principal); I10 Essential (primary) hypertension; K21.9 Gastro-esophageal reflux disease without esophagitis; F41.9 Anxiety disorder, unspecified; J44.9 Chronic obstructive pulmonary disease, unspecified; M19.90 Unspecified osteoarthritis, unspecified site; Z99.81 Dependence on supplemental oxygen; Z85.118 Personal history of other malignant neoplasm of bronchus and lung; Z88.1 Allergy status to other antibiotic agents; Z88.8 Allergy status to other drugs, medicaments and biological substances
CPT/HCPCS: 27096; G0260; J1040; Q9966

== ENCOUNTER → 2021-06-12 13:52 | Outpatient (POV) | payer MEDICARE, SELFPAY ==
[2021-06-12 14:16] VITALS: BP 128/77; PULSE 85; RESP 20; TEMP 36.3; O2SAT 94; BMI 32.8
--- NOTE | 2021-06-12 14:51 | P.CONS_ITS ---
[facility] Pain Management SOAP Note Subjective:: Patient is a 65-year-old white female who presents today for follow-up. She recently had an SI injection. Unfortunately, the patient got no relief. She continues to have significant pain in her low back and bilateral buttock area. We have tried multiple injections with minimal relief. She does have sensitivity to many oral medications. She currently has cancer and is undergoing treatment with Dr. Bergman at [facility] oncology. The patient and I have discussed intrathecal therapy on numerous occasions. She is interested in discussing the device once again. She does rate her pain a 9 out of 10 today. Review of Systems General: No recent weight changes, no fever, no sleep disturbances Respiratory: No cough, no shortness of air, no recurring pulmonary infections Cardiovascular/peripheral vascular: No chest pain, no palpitations, no edema, no shortness of breath Gastrointestinal: No new onset incontinence, normal bowel movements reported Genitourinary: No new onset incontinence Musculoskeletal: Low back pain bilateral with radiation into bilateral buttock Psychiatric: [Normal mood/affect] Neurological: [Denies weakness in extremities], [denies balance issues] Objective:: Physical exam General: Alert and oriented x3, no acute distress, pleasant and cooperative Lungs: Respirations even and unlabored, symmetrical chest expansion Eyes: PERRL Musculoskeletal: Flexion and extension of lumbar [spine] somewhat guarded secondary to pain, [antalgic gait noted] Neurological: Speech clear, no gross sensory deficit Assessment:: Degenerative disc disease lumbar spine with lumbar radiculopathy symptoms, stage IV lung cancer Plan:: Patient has had PET scans that are negative for any metastasis cancer. At this time. She has had multiple injections with minimal relief. She is sensitive to oral medications. She is in consideration of moving forward with intrathecal therapy. Patient does have concerns with opiates. She may benefit from bupivacaine trial. She will discuss the device with Dr. Bergman, her oncologist and return to the clinic in 3 weeks to discuss a further plan of care. She has been advised to contact the clinic if she has any concerns before that next appointment. ORT is minimal risk. Patient has signed and completed a pain management agreement/contract today. [facility] History I have reviewed the patient's past medical history: Yes Medical History: Reports:: Coronary Artery Disease, Diabetes Mellitus Type 2, Gastroesophageal Reflux Disease(GERD), Hyperlipidemia, Hypertension, Lung Disease, Myocardial Infarction, Transient Ischemic Attacks (TIA) Denies:: Cancer, Diabetes Mellitus Type 1, Internal Pacemaker, MRSA, Seizures *Have you ever received a pneumonia vaccine?: Yes *Have you received a flu vaccine this season?: Yes Other Medical History: Reports: Arthritis. Denies: Blood Transfusion Reaction Other Surgeries: Yes: Angioplasty, Appendectomy, Cardiac Catheterization, Colonoscopy, Tubal Ligation, Other (BACK SX, ABD MASS). No: Pacemaker Amputation: No Fractures: No - *Social History Smoking Status: Former smoker Tobacco Type: cigarettes # Packs/Day (cigarettes): 1 Alcohol Intake: never Substance Use Type: denies use, other *Occupational Status:: retired Housing: house Household Members: spouse *Travel in the last 8 weeks: None Family Hx:: Cancer, Heart Attack
== END ==
PROVIDERS: Visit Provider Clinical Nurse Specialist Family Health
DX: M51.16 Intervertebral disc disorders with radiculopathy, lumbar region (principal); C34.90 Malignant neoplasm of unspecified part of unspecified bronchus or lung
CPT/HCPCS: 99212; G0463

== ENCOUNTER → 2021-07-03 13:40 | Outpatient (POV) | payer MEDICARE, SELFPAY ==
[2021-07-03 13:53] VITALS: BP 147/66; PULSE 109; RESP 18; O2SAT 97; BMI 32.8
--- NOTE | 2021-07-07 15:33 | HMH.PAINSOAP ---
[facility] Pain Management SOAP Note Subjective:: Patient is a 65-year-old white female who presents today for follow-up. The patient has had injective therapy in our clinic in did not get much relief. She is here today to discuss her options. She does have cancer and is undergoing treatment with Dr. Bergman at [facility] oncology. She is accompanied by her today. The patient has had SI injections as well as other invasive injections with minimal relief. She is interested in intrathecal therapy bupivacaine only. She does not want opiates in an intrathecal pump. The patient says that she did discuss the device with Dr. Bergman and he has cleared the patient to proceed with implant. The patient does have a a specific window of time for which she can undergo implant, as she is currently undergoing chemotherapy treatment. The chemotherapy does affect her platelet count. She was advised in the past that she does not require a trial, but would prefer to undergo the trial to determine if the device would give her relief. Review of Systems General: No recent weight changes, no fever, no sleep disturbances Respiratory: No cough, no shortness of air, no recurring pulmonary infections Cardiovascular/peripheral vascular: No chest pain, no palpitations, no edema, no shortness of breath Gastrointestinal: No new onset incontinence, normal bowel movements reported Genitourinary: No new onset incontinence Musculoskeletal: Chronic low back pain with radiation into bilateral buttock Psychiatric: [Normal mood/affect] Neurological: [Denies weakness in extremities], [denies balance issues] Objective:: Physical exam General: Alert and oriented x3, no acute distress, pleasant and cooperative Lungs: Respirations even and unlabored, symmetrical chest expansion Eyes: PERRL Musculoskeletal: Flexion and extension of lumbar [spine] somewhat guarded secondary to pain, [antalgic gait noted] Neurological: Speech clear, no gross sensory deficit Assessment:: Degenerative disc disease lumbar spine with lumbar radiculopathy symptoms, stage IV lung cancer Plan:: Patient would like to proceed with an intrathecal pain pump trial with bupivacaine only. She does have sensitivity to oral medications. She has discussed the device with her oncologist Dr. Bergman who has cleared the patient to proceed with the implant. Patient does have specific timeframe for which she can undergo trial and implant due to chemotherapy treatment. We will schedule her for the trial and plan to see her back in the clinic afterwards for further evaluation. She is not on anticoagulation therapy, however, does receive chemotherapy treatment which does affect her platelets. Risks and benefits of the procedure have been explained to the patient. Patient would like to proceed with the procedure. Patient has been instructed to contact the clinic with any concerns before the next appointment. Dr. Mckinley has reviewed this note and agrees with this plan of care. This note was dictated using voice recognition software and make contain errors or omissions. [facility] History I have reviewed the patient's past medical history: Yes Medical History: Reports:: Coronary Artery Disease, Diabetes Mellitus Type 2, Gastroesophageal Reflux Disease(GERD), Hyperlipidemia, Hypertension, Lung Disease, Myocardial Infarction, Transient Ischemic Attacks (TIA) Denies:: Cancer, Diabetes Mellitus Type 1, Internal Pacemaker, MRSA, Seizures *Have you ever received a pneumonia vaccine?: Yes *Have you received a flu vaccine this season?: Yes Other Medical History: Reports: Arthritis. Denies: Blood Transfusion Reaction Other Surgeries: Yes: Angioplasty, Appendectomy, Cardiac Catheterization, Colonoscopy, Tubal Ligation, Other (BACK SX, ABD MASS). No: Pacemaker Amputation: No Fractures: No - *Social History Smoking Status: Former smoker Tobacco Type: cigarettes # Packs/Day (cigarettes): 1 Alcohol Intake
== END ==
PROVIDERS: Visit Provider Clinical Nurse Specialist Family Health
DX: M51.16 Intervertebral disc disorders with radiculopathy, lumbar region (principal)
CPT/HCPCS: 99212; G0463

== ENCOUNTER → 2021-10-23 14:09 | Outpatient (CLI) | payer MEDICARE, SELFPAY | PROVIDERS: PCP Nurse Practitioner Family; Visit Provider Internal Medicine Hematology & Oncology | DX: C34.90 Malignant neoplasm of unspecified part of unspecified bronchus or lung (principal); Z45.2 Encounter for adjustment and management of vascular access device | CPT/HCPCS: 96523; J1642 ==

== ENCOUNTER 2021-11-17 12:45 | Outpatient (CLI) | payer MEDICARE, SELFPAY | END 2021-11-17 13:29 | disposition home or self-care (01) | LOC: INF 12:46 | PROVIDERS: PCP Nurse Practitioner Family; Visit Provider Internal Medicine Hematology & Oncology | DX: C34.90 Malignant neoplasm of unspecified part of unspecified bronchus or lung (principal); Z45.2 Encounter for adjustment and management of vascular access device | CPT/HCPCS: 96523; J1642 ==

== ENCOUNTER 2021-12-11 12:23 | Outpatient (CLI) | payer MEDICARE, SELFPAY | END 2021-12-11 12:48 | disposition home or self-care (01) | LOC: INF 12:24 | PROVIDERS: PCP Nurse Practitioner Family; Visit Provider Internal Medicine Hematology & Oncology | DX: Z45.2 Encounter for adjustment and management of vascular access device (principal); C34.90 Malignant neoplasm of unspecified part of unspecified bronchus or lung | CPT/HCPCS: 96523; J1642 ==

== ENCOUNTER 2022-02-04 11:18 | Outpatient (CLI) | payer MEDICARE, SELFPAY | END 2022-02-04 11:40 | disposition home or self-care (01) | LOC: INF 11:20 | PROVIDERS: PCP Nurse Practitioner Family; Visit Provider Internal Medicine Hematology & Oncology | DX: C34.90 Malignant neoplasm of unspecified part of unspecified bronchus or lung (principal); Z45.2 Encounter for adjustment and management of vascular access device | CPT/HCPCS: 96523; J1642 ==

== ENCOUNTER 2022-03-13 12:12 | Outpatient (CLI) | payer MEDICARE, SELFPAY | END 2022-03-13 12:35 | disposition home or self-care (01) | LOC: INF 12:14 | PROVIDERS: PCP Nurse Practitioner Family; Visit Provider Internal Medicine Hematology & Oncology | DX: Z45.2 Encounter for adjustment and management of vascular access device (principal); C34.90 Malignant neoplasm of unspecified part of unspecified bronchus or lung | CPT/HCPCS: 96523; J1642 ==

== ENCOUNTER 2022-04-09 03:45 | Emergency (ER) | payer MEDICARE, SELFPAY ==
[2022-04-09] VITALS (8 sets, daily range): BP systolic 112–156; BP diastolic 63–80; PULSE 81–105; RESP 20; TEMP 37; O2SAT 84–97; BMI 28.3
--- NOTE | 2022-04-09 03:54 | ECG_ITS ---
APPROVED REPORT Exam: Resting ECG HR:98 bpm ECG Measurements Heart Rate 98 AXES WY 152 P 73 QRSd 154 QRS 122 QT 373 T 54 QTc 428 Conclusion SINUS RHYTHM INDETERMINATE AXIS RIGHT BUNDLE BRANCH BLOCK [120+ ms QRS DURATION, UPRIGHT V1, 40+ ms S IN I/aVL/V4/V5/V6] LEFT POSTERIOR FASCICULAR BLOCK [QRS AXIS > 109, INFERIOR Q] ABNORMAL ECG UNCONFIRMED REPORT Electronically signed by : Marcell Uriostegui MD 04/09/2022 21:15:52
--- NOTE | 2022-04-09 03:59 | XR_ITS ---
PROCEDURE INFORMATION: Exam: XR Chest Exam date and time: 04/09/2022 4:24 AM Age: 66 years old Clinical indication: Shortness of breath; Prior surgery; Surgery type: Port x1 year; Additional info: SOA TECHNIQUE: Imaging protocol: Radiologic exam of the chest. Views: 1 view. COMPARISON: CR XR CHEST PORTABLE 02/18/2021 4:16 PM FINDINGS: Tubes, catheters and devices: Right IJ Port-A-Cath terminates just above the cavoatrial junction. Lungs: Surgical changes left hilum again noted. Pleural spaces: Unremarkable. No pleural effusion. No pneumothorax. Heart/Mediastinum: Unremarkable. No cardiomegaly. Diaphragm: The left hemidiaphragm is elevated. Bones/joints: Chronic left rib deformities again noted. Degenerative changes of the spine. IMPRESSION: No acute findings.
[2022-04-09 04:07] LABS: Coronavirus 19, PCR Not Detected (NotDetected); Influenza A, PCR Not Detected (NotDetected); Influenza B, PCR Not Detected (NotDetected)
[2022-04-09 04:31] LABS: Basophils # 0.1 K/mm3 (0-0.2); Basophils % 1.6 % (0.1-2.0); Eosinophils # 0.1 K/mm3 (0.0-0.4); Eosinophils % 1.6 % (0.1-12.0); Hematocrit 38.2 % (37.0-47.0); Hemoglobin 11.8 g/dL (12.2-16.2); Lymphocytes # 2.2 K/mm3 (0.7-4.5); Mean Corpuscular HGB Conc 30.9 g/dL (31.8-35.4); Mean Corpuscular Hemoglobin 30.4 pg (27.0-31.2); Mean Corpuscular Volume 98.2 fl (81-99); Mean Platelet Volume 8.9 fl (7.4-10.4); Monocytes # 0.5 K/mm3 (0.1-1.0); Monocytes % 8.1 % (1.7-9.3); Neutrophils # 3.2 K/mm3 (1.8-7.8); Neutrophils % 52.8 % (37.0-80.0); Platelet Count 153 K/mm3 (142-424); Red Blood Count 3.89 M/mm3 (4.20-5.40); Red Cell Distribution Width 17.9 % (11.5-17.5); White Blood Count 6.1 K/mm3 (4.8-10.8)
[2022-04-09 04:38] LABS: Chloride 101 mmol/L (98-107); Potassium 3.6 mmoL/L (3.5-5.1); Sodium 142 mmol/L (136-145)
[2022-04-09 04:41] LABS: Alanine Aminotransferase 21 U/L (12-78); Albumin Level 4.3 g/dl (3.5-5.0); Albumin/Globulin Ratio 1.3 (1.1-1.8); Alkaline Phosphatase 117 U/L (38-126); Anion Gap 12.6 mEq/L (5-15); Aspartate Amino Transferase 25 U/L (14-36); Bilirubin,Total 0.2 mg/dl (0.2-1.3); Blood Urea Nitrogen 32 mg/dl (7-17); Carbon Dioxide 32 mmol/L (22.0-30.0); Creatinine Clearance Estimated 42 mL/min (50-200); Estimated Glomerular Filt Rate 38 ml/min (>60); GFR (African American) 46 ML/MIN (>60); Globulin 3.4 g/dL (1.3-3.2); Total Protein,Serum 7.7 g/dl (6.3-8.2)
[2022-04-09 04:42] LABS: Calcium 9.3 mg/dl (8.4-10.2); Glucose 93 mg/dl (74-100); Lactic Acid 0.9 mmol/L (0.7-2.1)
[2022-04-09 04:47] LABS: C-Reactive Protein 6.9 mg/L (0-4)
[2022-04-09 04:56] LABS: Troponin I < 0.01 ng/ml (0.00-0.034)
[2022-04-09 05:20] LABS: Erythrocyte Sedimentation Rate 47 mm/hr (0-30)
--- NOTE | 2022-04-09 05:45 | CT_ITS ---
PROCEDURE INFORMATION: Exam: CTA Chest With Contrast Exam date and time: 04/09/2022 6:49 AM Age: 66 years old Clinical indication: Shortness of breath; Prior surgery; Surgery type: Port; Additional info: SOA TECHNIQUE: Imaging protocol: Computed tomographic angiography of the chest with contrast. 3D rendering (Not supervised by radiologist): MIP and/or 3D reconstructed images were created by the technologist. Radiation optimization: All CT scans at this facility use at least one of these dose optimization techniques: automated exposure control; mA and/or kV adjustment per patient size (includes targeted exams where dose is matched to clinical indication); or iterative reconstruction. Contrast material: ISOVUE; Contrast volume: 70 ml; Contrast route: INTRAVENOUS (IV); COMPARISON: CT ANGIO CHEST PE PROTOCOL 12/01/2020 1:57 PM FINDINGS: Tubes, catheters and devices: Right Port-A-Cath terminates in the SVC. Pulmonary arteries: Normal. No pulmonary emboli. Aorta: Atherosclerotic changes of the aorta and branch vessels. Lungs: Scarring at the left lung base. Soft tissue mass medial aspect of the left lower lung is decreased in size, previously 8 x 3 x 5 cm, now measuring 6.5 x 4.8 x 2 cm. Pleural spaces: Unremarkable. No pneumothorax. No pleural effusion. Heart: Normal cardiac size, no pericardial effusion, coronary artery calcifications are present. Lymph nodes: Stable 1.6 cm right hilar node. Stable prominent mediastinal lymph nodes. Liver: Focal fatty infiltrate at the falciform ligament. Adrenal glands: The left adrenal gland is not identified, the right adrenal gland is mildly thickened. Kidneys and ureters: Stable simple cyst left kidney, no imaging follow up recommended. There is nonspecific bilateral perinephric stranding. Bones/joints: Unremarkable. No acute fracture. Soft tissues: Surgical changes left hilum. IMPRESSION: 1. No pulmonary emboli. 2. Soft tissue mass medial aspect of the left lower lung is decreased in size, previously 8 x 3 x 5 cm, now measuring 6.5 x 4.8 x 2 cm. Surgical changes left hilum. 3. Stable right hilar lymphadenopathy which may be metastatic.
--- NOTE | 2022-04-09 06:46 | HMH.EDSOB ---
Discharge Plan Disposition Patient Disposition: Home, Self-Care Prescriptions Prescriptions: New azithromycin [azithromycin] 250 mg tablet 250 mg PO DIRECTED Qty: 6 0RF Rx Instructions: Take two (2) tablets on day #1, then one (1) tablet day #2 thru #5 prednisone [prednisone] 20 mg tablet 20 mg PO BID Qty: 10 0RF No Action lisinopril-hydrochlorothiazide 20-25 mg tablet 1 tab PO DAILY Rx Instructions: 20/25MG omeprazole 20 mg capsule,delayed release(DR/EC) 20 mg PO DAILY Advair Diskus 250-50 mcg/dose blister with device 1 inh INHALATION BID atorvastatin 40 mg tablet 40 mg PO DAILY sodium,potassium,mag sulfates [Suprep Bowel Prep Kit] 17.5-3.13-1.6 gram recon soln See Rx Instructions PO .COMPLEX Qty: 354 0RF Rx Instructions: DILUTE; drink full amount early evening before AND next morning at least 2 hr before procedure; follow w 960 mL water PO alprazolam 0.25 MG tablet 0.5 mg PO BIDP PRN (Reason: sleep/anxiety) ondansetron HCl 8 MG tablet 8 mg PO Q8HP PRN (Reason: Nausea) tramadol 50 MG tablet 50 mg PO Q4HP PRN (Reason: Pain) promethazine 25 MG tablet 25 mg PO Q4HP PRN (Reason: Nausea And Vomiting) metformin 500 MG tablet 500 mg PO DAILY aspirin 325 MG tablet 325 mg PO DAILY Referrals Follow up/Referrals: Heidi Rivers APRN [Primary Care Provider] - See instructions Clinical Impressions Clinical Impression: Acute exacerbation of chronic obstructive airways disease Instructions Patient Instructions: DI for Chronic Obstructive Pulmonary Disease Discharge ED Provider: Mark Bran Resp/SOB HPI General Chief Complaint: Shortness of Breath/Dyspnea Stated Complaint: Difficulty breathing Time Seen by Provider: 04/09/22 05:30 Mode of Arrival: Wheelchair Source of Information: Patient and Spouse Limitations: No Limitations Description of Symptoms (Recalled from ER Triage Doc. by RN): pt c/o cough, congestion, body aches, fever, SOA since wednesday. History of Present Illness cough and sob with fever - hx of lung cancer Complaint: shortness of breath and cough Onset (ago): day(s) Severity: moderate Consistency/Duration: intermittent Known history of: other (hx of lung cancer ) Treatment prior to arrival: bronchodilator Related Data Home oxygen amount: 2 liters Home Medications Medication Instructions Recorded Confirmed atorvastatin 40 mg tablet 40 mg PO DAILY Cholesterol 09/21/18 03/24/21 fluticasone 250 mcg-salmeterol 50 1 inh inhalation BID Allergy 09/21/18 03/24/21 mcg/dose blistr powdr for symptoms inhalation (Advair Diskus) lisinopril 20 1 tab PO DAILY blood pressure 09/21/18 03/24/21 mg-hydrochlorothiazide 25 mg tablet omeprazole 20 mg capsule,delayed 20 mg PO DAILY acid reflux 09/21/18 03/24/21 release alprazolam 0.25 mg tablet 0.5 mg PO BIDP PRN sleep/anxiety 06/25/20 03/24/21 ondansetron HCl 8 mg tablet 8 mg PO Q8HP PRN Nausea 12/01/20 03/24/21 promethazine 25 mg tablet 25 mg PO Q4HP PRN Nausea And 12/01/20 03/24/21 Vomiting tramadol 50 mg tablet 50 mg PO Q4HP PRN Pain 12/01/20 03/24/21 aspirin 325 mg tablet,delayed 325 mg PO DAILY heart health 12/02/20 03/24/21 release metformin 500 mg tablet 500 mg PO DAILY Diabetes 12/02/20 03/24/21 Previous Rx's Medication Instructions Recorded sodium,potassium,mag sulfates 17.5 See Rx Instructions PO .COMPLEX 03/25/22 gram-3.13 gram-1.6 gram oral soln #354 mL (Suprep Bowel Prep Kit) azithromycin 250 mg tablet 250 mg PO DIRECTED #6 tabs 04/09/22 prednisone 20 mg tablet 20 mg PO BID #10 tabs 04/09/22 Allergies Allergy/AdvReac Type Severity Reaction Status Date / Time diltiazem [DILTIAZEM] Allergy Unknown UNKNOWN Verified 05/14/21 10:59 levofloxacin [From LEVAQUIN] Allergy Unknown NA-NAUSEA/V Verified 05/14/21 10:59 OMITING nadolol [From CORGARD] Allergy Unknown UNKNOWN Verified 05/14/21 10:59 oxycodone [From
== END 2022-04-09 07:50 | disposition home or self-care (01) ==
PROVIDERS: Emergency Provider Emergency Medicine; PCP Nurse Practitioner Family
DX: J44.1 Chronic obstructive pulmonary disease with (acute) exacerbation (principal); Z85.118 Personal history of other malignant neoplasm of bronchus and lung; Z79.85 Long-term (current) use of injectable non-insulin antidiabetic drugs; Z79.899 Other long term (current) drug therapy; Z88.1 Allergy status to other antibiotic agents; Z88.8 Allergy status to other drugs, medicaments and biological substances; Z87.891 Personal history of nicotine dependence; D64.9 Anemia, unspecified
CPT/HCPCS: 71045; 71275; 80053; 83605; 84484; 85025; 85651; 86140; 87040; 93005; 96365; 96375; 99285; C9803; J0696; Q9967; U0003; U0005

== ENCOUNTER 2022-04-28 08:26 | Day surgery (SDC) | payer MEDICARE, SELFPAY ==
[2022-04-24 13:26] VITALS: BMI 28.3
[2022-04-28] VITALS (7 sets, daily range): BP systolic 78–114; BP diastolic 47–77; PULSE 63–101; RESP 16–18; TEMP 36.2–36.4; O2SAT 92–99
--- NOTE | 2022-04-28 08:41 | P.PCN_ITS ---
Procedure: Date: 04/28/22 Patient Date of :: 1955 Procedure Performed:: Colonoscopy Indications:: History of colon polyps Note: The patient has a history of multiple adenomatous polyps noted on multiple occasions. Most recently, she underwent a colonoscopy in October 2018 at which time short-term repeat evaluation was recommended. Repeat colonoscopy was delayed secondary to her undergoing treatment for metastatic lung cancer. Performing Provider:: Bello Oseguera MD Referring Provider:: . Sedation:: Monitored anesthesia care Procedure:: After informed consent was obtained the patient was taken to the endoscopy suite. Sedation ensued after the patient was transferred to the left lateral decubitus position. Pulse, blood pressure, and oxygen saturation were monitored throughout the procedure. Digital rectal exam revealed no significant abnormality. The colonoscope was placed in position. The entire colon was evaluated. The colonoscope was carefully removed and the patient was transferr ed to recovery in stable condition. Please see findings and specimens below for detail. Findings:: Bowel preparation moderate Profound lack of relaxation Significant tortuosity Unchanged sigmoid diverticulosis Scattered hyperplastic-appearing polyps 7 mm sessile right colon polyp 8 mm sessile polyp at 7 cm Specimens:: Proximal right colon polyp (cold snare) Polyp at 7 cm (cold snare) Recommendations:: Timing of repeat colonoscopy is pending pathology but likely be between 2-3 years secondary to history of significant polyps and limitations in visualization Complications:: No immediate Estimated blood obtained (mL): 1
[2022-04-29 07:11] LABS: POC Glucose,Bedside 130 (70-110)
== END 2022-04-28 10:31 | disposition home or self-care (01) ==
PROVIDERS: PCP Nurse Practitioner Family; Visit Provider Surgery
PROC: 0DJD8ZZ Inspection of Lower Intestinal Tract, Via Natural or Artificial Opening Endoscopic (ICD-10-PCS; principal; 2022-04-28 09:30)
DX: Z12.11 Encounter for screening for malignant neoplasm of colon (principal); D12.6 Benign neoplasm of colon, unspecified; E11.9 Type 2 diabetes mellitus without complications; Z86.010 Personal history of colon polyps
CPT/HCPCS: 45385; 82962; 88305; J1642

== ENCOUNTER → 2022-05-20 12:47 | Outpatient (CLI) | payer MEDICARE, SELFPAY ==
--- NOTE | 2022-05-20 12:51 | MM_ITS ---
PROCEDURE INFORMATION: Exam: MG Bilateral Screening 3D Mammography Exam date and time: 05/20/2022 12:47 PM Age: 66 years old Clinical indication: Screening/high risk TECHNIQUE: Imaging protocol: Bilateral Screening tomosynthesis and 2D mammography including computer-aided detection (CAD) when performed. COMPARISON: 1. MG SCBI MM Dig screening mamm BI w/CAD 03/08/2018 10:01 AM 2. MG DMSB DIG MAMM-SCREEN YOSHI 01/21/2015 3:52 PM FINDINGS: MAMMOGRAPHY: Breast composition: There are scattered areas of fibroglandular density. Mass: None. Architectural distortion: None. Calcifications: No suspicious calcifications. Asymmetric density: None. Skin thickening: None. Axillary adenopathy: None. IMPRESSION: No mammographic evidence of malignancy. Annual screening is recommended unless otherwise clinically indicated. ASSESSMENT: BI-RADS Category 1: Negative
== END ==
PROVIDERS: PCP Nurse Practitioner Family; Visit Provider Nurse Practitioner Family
DX: Z12.31 Encounter for screening mammogram for malignant neoplasm of breast (principal)
CPT/HCPCS: 77063; 77067

== ENCOUNTER 2022-05-20 13:27 | Outpatient (CLI) | payer MEDICARE, SELFPAY | END 2022-05-20 13:53 | disposition home or self-care (01) | LOC: INF 13:28 | PROVIDERS: PCP Nurse Practitioner Family; Visit Provider Internal Medicine Hematology & Oncology | DX: Z45.2 Encounter for adjustment and management of vascular access device (principal); C34.90 Malignant neoplasm of unspecified part of unspecified bronchus or lung; Z12.31 Encounter for screening mammogram for malignant neoplasm of breast | CPT/HCPCS: 36591; 77063; 77067; J1642 ==

== ENCOUNTER 2022-07-01 12:53 | Outpatient (CLI) | payer MEDICARE, SELFPAY | END 2022-07-01 13:30 | disposition home or self-care (01) | LOC: INF 12:54 | PROVIDERS: PCP Nurse Practitioner Family; Visit Provider Internal Medicine Hematology & Oncology | DX: Z45.2 Encounter for adjustment and management of vascular access device (principal); C34.90 Malignant neoplasm of unspecified part of unspecified bronchus or lung | CPT/HCPCS: 96523; J1642 ==

== ENCOUNTER → 2022-07-23 14:34 | Outpatient (CLI) | payer MEDICARE, SELFPAY ==
[2022-07-23 15:40] LABS: Estimated Glomerular Filt Rate 41 ml/min (>60); GFR (African American) 50 ML/MIN (>60)
== END ==
PROVIDERS: PCP Nurse Practitioner Family; Visit Provider Internal Medicine Hematology & Oncology
DX: R79.89 Other specified abnormal findings of blood chemistry (principal)
CPT/HCPCS: 36415; 82565

== ENCOUNTER 2022-08-21 17:13 | Inpatient (IN) | payer MEDICARE, SELFPAY ==
[2022-08-21] VITALS (8 sets, daily range): BP systolic 100–150; BP diastolic 58–80; PULSE 61–111; RESP 21–30; TEMP 36.8–37.2; O2SAT 94–100; BMI 27.9
--- NOTE | 2022-08-21 17:20 | ECG_ITS ---
APPROVED REPORT Exam: Resting ECG HR:108 bpm ECG Measurements Heart Rate 108 AXES VT 154 P -88 QRSd 127 QRS 76 QT 342 T 15 QTc 405 Conclusion ECTOPIC ATRIAL TACHYCARDIA RIGHT BUNDLE BRANCH BLOCK [120+ ms QRS DURATION, UPRIGHT V1, 40+ ms S IN I/aVL/V4/V5/V6] ABNORMAL ECG UNCONFIRMED REPORT Electronically signed by : Marcell Uriostegui MD 08/24/2022 19:52:54
--- NOTE | 2022-08-21 17:35 | HMH.EDGENADL ---
Discharge Plan Disposition Patient Disposition: Admitted As Inpatient Prescriptions Prescriptions: No Action lisinopril-hydrochlorothiazide 20-25 mg tablet 1 tab PO DAILY Rx Instructions: 20/25MG omeprazole 20 mg capsule,delayed release(DR/EC) 20 mg PO DAILY atorvastatin 40 mg tablet 40 mg PO DAILY alprazolam 0.25 MG tablet 0.5 mg PO BIDP PRN (Reason: sleep/anxiety) prednisone 20 mg tablet 2.5 mg PO DAILY fluticasone propion-salmeterol 250-50 mcg/dose blister with device 1 inh INHALATION BID aspirin 325 MG tablet 325 mg PO DAILY Referrals Follow up/Referrals: Heidi Rivers APRN [Primary Care Provider] - See instructions Clinical Impressions Clinical Impression: Acute exacerbation of chronic obstructive pulmonary disease, Inspiratory stridor Discharge ED Provider: Alla Daigle General Adult HPI General Chief complaint: Shortness of Breath/Dyspnea Stated complaint: sob Time Seen by Provider: 08/21/22 17:35 Mode of Arrival: Wheelchair Limitations: No Limitations Description of Symptoms (Recalled from ER Triage Doc. by RN): PT REPORTS INCREASED SHORTNESS OF BREATH SINCE ABOUT 0400, WEARS HOME O2 AT NIGHT. HX OF STAGE 4 LUNG CANCER IN REMISSION. WEARING 02 AT 4L/NC History of Present Illness HPI narrative: Patient is a 66-year-old female with a history of known metastatic lung cancer who status post lobectomy, chemo, immunotherapy, in remission, who states that she has had several days of increasing shortness of breath wheezing and productive sputum. No history of heart failure however she does have a history of coronary artery disease, there is no chest pain associated with today's presentation. No fevers chills. She states she is never had an exacerbation of her COPD that is severe. She has tried some breathing treatments at home without significant improvement and states that she is having a difficult time taking a breath in. She did states she was intubated 1 year ago however for COPD exacerbation and states that she has had some difficulty with inspiration since that time but does not carry a diagnosis of subglottic stenosis or something similar. Related Data Home Medications Medication Instructions Recorded Confirmed atorvastatin 40 mg tablet 40 mg PO DAILY Cholesterol 09/21/18 08/21/22 lisinopril 20 1 tab PO DAILY blood pressure 09/21/18 08/21/22 mg-hydrochlorothiazide 25 mg tablet omeprazole 20 mg capsule,delayed 20 mg PO DAILY acid reflux 09/21/18 08/21/22 release alprazolam 0.25 mg tablet 0.5 mg PO BIDP PRN sleep/anxiety 06/25/20 08/21/22 aspirin 325 mg tablet,delayed 325 mg PO DAILY heart health 12/02/20 08/21/22 release prednisone 20 mg tablet 2.5 mg PO DAILY * 04/24/22 08/21/22 fluticasone 250 mcg-salmeterol 50 1 inh inhalation BID Breathing 08/21/22 08/21/22 mcg/dose blistr powdr for problems inhalation Allergies Allergy/AdvReac Type Severity Reaction Status Date / Time diltiazem [DILTIAZEM] Allergy Unknown UNKNOWN Verified 05/06/22 14:15 levofloxacin [From LEVAQUIN] Allergy Unknown NA-NAUSEA/V Verified 05/06/22 14:15 OMITING nadolol [From CORGARD] Allergy Unknown UNKNOWN Verified 05/06/22 14:15 oxycodone [From ROXICET] Allergy Unknown UNKNOWN Verified 05/06/22 14:15 umeclidinium AdvReac Intermediate Chest Pain Verified 05/06/22 14:15 [From Anoro Ellipta] vilanterol AdvReac Intermediate Chest Pain Verified 05/06/22 14:15 [From Anoro Ellipta] olodaterol AdvReac Verified 05/06/22 14:15 [From Stiolto Respimat] tiotropium AdvReac Verified 05/06/22 14:15 [From Stiolto Respimat] [facility] Disclaimer: The information contained in this section may have been updated after the patient was seen, as this information can be updated by other users. Medical History (Updated 08/21/22 @ 19:08 by Alla Daigle MD) History of heart attack History of transient ischemic attack (TIA) Lung cancer Surgical
--- NOTE | 2022-08-21 17:45 | PC.NURSE ---
DR GASPAR AT BEDSIDE
--- NOTE | 2022-08-21 17:54 | XR_ITS ---
PROCEDURE INFORMATION: Exam: XR Chest Exam date and time: 08/21/2022 6:17 PM Age: 66 years old Clinical indication: Dyspnea TECHNIQUE: Imaging protocol: Radiologic exam of the chest. Views: 1 view. COMPARISON: CR XR CHEST PORTABLE 04/09/2022 4:24 AM FINDINGS: Tubes, catheters and devices: Right IJ MediPort overlies the SVC. Lungs: No acute cardiopulmonary findings. Pleural spaces: Unremarkable. No pleural effusion. No pneumothorax. Heart/Mediastinum: Unremarkable. No cardiomegaly. Diaphragm: Elevated left hemidiaphragm. Bones/joints: Healed rib fractures left dorsal 5th and 6th ribs. IMPRESSION: No acute cardiopulmonary findings.
--- NOTE | 2022-08-21 18:04 | PC.NURSE ---
LAB AT BEDSIDE
--- NOTE | 2022-08-21 18:07 | PC.NURSE ---
XR AT BEDSIDE
[2022-08-21 18:23] LABS: Coronavirus 19, PCR Not Detected (NotDetected); Influenza A, PCR Not Detected (NotDetected); Influenza B, PCR Not Detected (NotDetected)
[2022-08-21 18:40] LABS: Basophils # 0.1 K/mm3 (0-0.2); Basophils % 0.5 % (0.1-2.0); Eosinophils # 0.2 K/mm3 (0.0-0.4); Hematocrit 40.9 % (37.0-47.0); Hemoglobin 12.4 g/dL (12.2-16.2); Lymphocytes # 2.9 K/mm3 (0.7-4.5); Lymphocytes % 15.8 % (10-50); Mean Corpuscular HGB Conc 30.3 g/dL (31.8-35.4); Mean Corpuscular Volume 95.8 fl (81-99); Mean Platelet Volume 8.5 fl (7.4-10.4); Monocytes # 1.3 K/mm3 (0.1-1.0); Monocytes % 6.8 % (1.7-9.3); Neutrophils % 75.9 % (37.0-80.0); Platelet Count 206 K/mm3 (142-424); Red Blood Count 4.27 M/mm3 (4.20-5.40); Red Cell Distribution Width 15.5 % (11.5-17.5); White Blood Count 18.5 K/mm3 (4.8-10.8)
--- NOTE | 2022-08-21 18:41 | PC.NURSE ---
ROUNDED ON PT, NO NEEDS AT THIS TIME. CALL LIGHT WITHIN REACH
[2022-08-21 18:47] LABS: VBG Base Excess 0.4 mmol/L (-2.4-2.3); VBG HCO3 26.4 mmol/L (23-30); VBG PH 7.33 mmol/L (7.31-7.41); VBG PO2 208.5 mmol/L (28-40)
[2022-08-21 18:49] LABS: VBG PCO2 51.8 mmol/L (35-51)
[2022-08-21 18:50] LABS: Alanine Aminotransferase 16 U/L (12-78); Albumin Level 4.6 g/dl (3.5-5.0); Albumin/Globulin Ratio 1.3 (1.1-1.8); Alkaline Phosphatase 128 U/L (38-126); Anion Gap 11.5 mEq/L (5-15); Aspartate Amino Transferase 24 U/L (14-36); Bilirubin,Total 0.7 mg/dl (0.2-1.3); Calcium 9.6 mg/dl (8.4-10.2); Carbon Dioxide 35 mmol/L (22.0-30.0); Chloride 97 mmol/L (98-107); Globulin 3.5 g/dL (1.3-3.2); Glucose 114 mg/dl (74-100); Potassium 4.5 mmoL/L (3.5-5.1); Sodium 139 mmol/L (136-145); Total Protein,Serum 8.1 g/dl (6.3-8.2)
[2022-08-21 18:50] LABS: MANUAL DIFFERENTIAL MANUAL DIFFERENTIAL (MANUAL DIFF)
--- NOTE | 2022-08-21 18:52 | PC.NURSE ---
critical vbg result given to ELAYNE ESCALANTE
--- NOTE | 2022-08-21 18:54 | PC.NURSE ---
notified RT of neb order per verbal order per ER MD
[2022-08-21 18:55] LABS: Blood Urea Nitrogen 25 mg/dl (7-17); Creatinine Clearance Estimated 49 mL/min (50-200); Estimated Glomerular Filt Rate 45 ml/min (>60); GFR (African American) 54 ML/MIN (>60)
--- NOTE | 2022-08-21 19:03 | PC.NURSE ---
RT at BS
--- NOTE | 2022-08-21 19:03 | PC.NURSE ---
ELAYNE ESCALANTE at discussing POC with pt and .
--- NOTE | 2022-08-21 19:06 | PC.NURSE ---
ELAYNE ESCALANTE speaking with Dr. Bradly Noonan
[2022-08-21 19:07] LABS: Lymphocytes % 20 % (10-50); Neutrophils % 80 % (42-76); Platelet Estimate Normal; Total Cells Counted 100
[2022-08-21 19:09] LABS: Stomatocytes 1+
[2022-08-21 19:11] LABS: Troponin I < 0.01 ng/ml (0.00-0.034)
--- NOTE | 2022-08-21 19:36 | PC.NURSE ---
House notified of need for bed
--- NOTE | 2022-08-21 19:36 | EXP.HP ---
History of Present Illness *Admission Date: 08/21/22 *Reason for visit:: Shortness of air, Wheezing *History of present illness: Ms. Yeh is a 66-year-old female with a history of Stage 4 Lung cancer, diagnosed in 2019 s/p Lobectomy, chemotherapy and immunotherapy, COPD oxygen dependent at 3L at nights and on chronic prednisone therapy, HTN, HL, Anxiety Disoder. She presents to [facility] through the ER due to shortness of air outside her normal with associated wheezing and slighly productive cough that has been going on for 4-days duration, but has worsened over the last day. In the ER she was noted to have some stridor on presentation. She received Racemic Epinephrine, Methylprednisolone, Magnesium and Doxycycline with improvement. Work-up in the ER included: Covid and Flu testing that were negative. Cxray shows no acute cardiopulmonary findings. CBC had an elevated WBC, but the patient is on chronic steroids. CMP showed a slightly elevated creatinine at 1.20, but appears better than patient's most recent baseline. The patient will be admitted with diagnosis of COPD exacerbation. She will be kept on Doxycycline, continued on steroids and given Duonebs overnight. The ER Physician spoke with the local Assistant Project Manager if she does well overnight she can be discharged to home with follow-up outpatient with pulmonary. The plan of care was discussed with the patient on admission. She verbalized understanding and agreement with the plan of care. [facility] Disclaimer: The information contained in this section may have been updated after the patient was seen, as this information can be updated by other users. Medical History History of heart attack History of transient ischemic attack (TIA) Lung cancer Surgical History History of abdominal surgery History of adrenal surgery History of appendectomy History of brain surgery History of colonoscopy History of lung surgery Family History Other Family history of cancer Family history of myocardial infarction Social History Smoking Status: Former smoker alcohol intake: current substance use type: denies use and other current occupational status: unemployed Travel in the last 8 weeks: None household members: spouse housing: house current occupational exposures/hazards: No caffeine: Yes Review of Systems Review of Systems Review of systems:: pertinent systems reviewed and negative unless documented below Constitutional Constitutional: Reports system reviewed and no additional complaints, except as documented Eyes Eyes: Reports system reviewed and no additional complaints, except as documented ENT Ears, Nose, Mouth, and Throat: Reports system reviewed and no additional complaints, except as documented *Cardiovascular Cardiovascular: Reports system reviewed and no additional complaints, except as documented and Reports dyspnea *Respiratory Respiratory: Reports cough, Reports dyspnea, Reports excessive phlegm production and Reports wheezing *Gastrointestinal Gastrointestinal: Reports system reviewed and no additional complaints, except as documented *Genitourinary Genitourinary: Reports system reviewed and no additional complaints, except as documented *Musculoskeletal Musculoskeletal: Reports system reviewed and no additional complaints, except as documented Integumentary/Breasts Skin/Breast: Reports system reviewed and no additional complaints, except as documented *Neurologic Neurologic: Reports system reviewed and no additional complaints, except as documented Psychiatric Psychiatric: Reports system reviewed and no additional complaints, except as documented Endocrine Endocrine: Reports system reviewed and no additional complaints, excep
[2022-08-21 19:40] LABS: Adenovirus,PCR Not Detected (NotDetected); Bordetella Pertussis Not Detected (NotDetected); Chlamydophila Pneumoniae, PCR Not Detected (NotDetected); Coronavirus 19, PCR Not Detected (NotDetected); Coronavirus 229E Not Detected (NotDetected); Coronavirus NL63 Not Detected (NotDetected); Coronavirus OC43 Not Detected (NotDetected); Coronovirus HKU1,PCR Not Detected (NotDetected); Human Metapneumovirus Not Detected (NotDetected); Influenza A, PCR Not Detected (NotDetected); Influenza AH1, 2009 Not Detected (NotDetected); Influenza AH1, PCR Not Detected (NotDetected); Influenza AH3,PCR Not Detected (NotDetected); Influenza B, PCR Not Detected (NotDetected); Mycoplasma Pneumoniae, PCR Not Detected (NotDetected); Parainfluenza 1, PCR Not Detected (NotDetected); Parainfluenza 2, PCR Not Detected (NotDetected); Parainfluenza 3, PCR Not Detected (NotDetected); Parainfluenza 4, PCR Not Detected (NotDetected); Respiratory Syncytial Virus Not Detected (NotDetected); Rhinovirus/Enterovirus Not Detected (NotDetected)
--- NOTE | 2022-08-21 20:46 | PC.NURSE ---
Pt arrived to floor via wheelchair @ 2044
[2022-08-21 22:06] LABS: Troponin I < 0.01 ng/ml (0.00-0.034)
[2022-08-22] VITALS (11 sets, daily range): BP systolic 94–108; BP diastolic 52–59; PULSE 81–95; RESP 18–22; TEMP 36.8–37.1; O2SAT 93–97; BMI 28.1
[2022-08-22 00:48] LABS: Troponin I < 0.01 ng/ml (0.00-0.034)
--- NOTE | 2022-08-22 01:00 | PC.NURSE ---
Patient received a breathing tx per rt
--- NOTE | 2022-08-22 06:22 | PC.NURSE ---
patient was new admit on the floor, a&ox4. 3LNC baseline. pt had audible stridor upon coming to the floor. received breathing tx and steroids. pt had complaints of headache, prn med gave for pain and sleep/anxiety.
--- NOTE | 2022-08-22 09:56 | PC.NURSE ---
courtesy tech note; Rounded on pt, pt denied the need to use the restroom and denied the need for a drink. no further requests at this time. call light within reach. WU Mack
--- NOTE | 2022-08-22 10:12 | CT_ITS ---
PROCEDURE INFORMATION: Exam: CT Neck Without Contrast Exam date and time: 08/22/2022 10:55 AM Age: 66 years old Clinical indication: Dysphagia / difficulty swallowing; Additional info: Stridor TECHNIQUE: Imaging protocol: Computed tomography of the neck without contrast. Radiation optimization: All CT scans at this facility use at least one of these dose optimization techniques: automated exposure control; mA and/or kV adjustment per patient size (includes targeted exams where dose is matched to clinical indication); or iterative reconstruction. REPORTING DATA: Count of CT and Cardiac NM exams in prior 12 months: This patient has received [address] and 0 known cardiac nuclear medicine studies in the 12 months prior to the current study. COMPARISON: CT SOFT TISSUE NECK W CON 02/18/2021 5:46 PM FINDINGS: Limitations: The absence of intravenous contrast limits the assessment of vascular structures, lesions and lymphadenopathy. Tubes, catheters and devices: There is a right tunneled catheter with its tip in the cavoatrial junction. Mastoid air cells: Trace opacification bilateral mastoid air cells Paranasal sinuses: Scattered mucosal thickening throughout the paranasal sinuses. Pharynx: Unremarkable. No significant tonsillar enlargement. Larynx: Unremarkable. Epiglottis is normal. Prevertebral and retropharyngeal spaces: Unremarkable. Salivary glands: Normal. Glands are normal in size. Thyroid: Normal. No enlarged or calcified nodules. Lymph nodes: Unremarkable. No lymphadenopathy. Trachea: Visualized trachea is unremarkable. Lungs: Unremarkable as visualized. Bones/joints: Congenital non-fusion of the posterior arch of C1. Soft tissues: Longus coli muscles are unremarkable. No prevertebral edema. IMPRESSION: No evidence of airway narrowing. No acute abnormality
[2022-08-22 11:26] LABS: Basophils % 0.2 % (0.1-2.0); Eosinophils # 0.2 K/mm3 (0.0-0.4); Eosinophils % 1.2 % (0.1-12.0); Hematocrit 36.8 % (37.0-47.0); Hemoglobin 11.2 g/dL (12.2-16.2); Lymphocytes # 0.8 K/mm3 (0.7-4.5); Lymphocytes % 4.5 % (10-50); Mean Corpuscular HGB Conc 30.3 g/dL (31.8-35.4); Mean Corpuscular Hemoglobin 29.4 pg (27.0-31.2); Mean Corpuscular Volume 96.9 fl (81-99); Mean Platelet Volume 8.8 fl (7.4-10.4); Monocytes # 0.4 K/mm3 (0.1-1.0); Monocytes % 2.4 % (1.7-9.3); Neutrophils # 15.4 K/mm3 (1.8-7.8); Neutrophils % 91.7 % (37.0-80.0); Platelet Count 199 K/mm3 (142-424); Red Cell Distribution Width 15.5 % (11.5-17.5); White Blood Count 16.8 K/mm3 (4.8-10.8)
[2022-08-22 11:29] LABS: MANUAL DIFFERENTIAL MANUAL DIFFERENTIAL (MANUAL DIFF)
[2022-08-22 11:48] LABS: Chloride 98 mmol/L (98-107); Potassium 4.4 mmoL/L (3.5-5.1); Sodium 138 mmol/L (136-145)
[2022-08-22 11:50] LABS: Alanine Aminotransferase 20 U/L (12-78); Blood Urea Nitrogen 35 mg/dl (7-17); Creatinine Clearance Estimated 42 mL/min (50-200); Estimated Glomerular Filt Rate 38 ml/min (>60); GFR (African American) 46 ML/MIN (>60)
[2022-08-22 11:51] LABS: Albumin Level 4.4 g/dl (3.5-5.0); Albumin/Globulin Ratio 1.3 (1.1-1.8); Alkaline Phosphatase 98 U/L (38-126); Anion Gap 12.4 mEq/L (5-15); Aspartate Amino Transferase 26 U/L (14-36); Bilirubin,Total 0.5 mg/dl (0.2-1.3); Calcium 9.4 mg/dl (8.4-10.2); Carbon Dioxide 32 mmol/L (22.0-30.0); Globulin 3.5 g/dL (1.3-3.2); Glucose 172 mg/dl (74-100); Total Protein,Serum 7.9 g/dl (6.3-8.2)
[2022-08-22 13:39] LABS: Lymphocytes % 8 % (10-50); Monocytes % 2 % (2-9); Neutrophils % 90 % (42-76); Platelet Estimate Normal; RBC Morphology Normal; Total Cells Counted 100
--- NOTE | 2022-08-22 14:17 | EXP.ACUTE.PN ---
Subjective *Date: 08/22/22 *Time: 14:18 Interval history: Minimal distress this morning. Tolerated weaning of oxygen to 2 L. Oxygen drops however when turned off. Room air sats were 86%. Has prominent stridor this morning. No adventitious lung sounds however. Denies any nausea, vomiting, chest pain. States her stridulous sounds have been present since she was intubated 2 years ago. Got worse over the past couple days to week. Medical Exam Vital signs and Labs for Last 24 Hours: Vital Signs Temp Pulse Pulse Resp BP BP Pulse Ox 08/22/22 12:11 84 08/22/22 12:11 94 H 08/22/22 12:11 96 08/22/22 10:24 95 H 08/22/22 10:24 95 H 08/22/22 10:24 93 L 08/22/22 07:49 98.7 F 81 18 101/56 L 94 L 08/22/22 06:40 84 08/22/22 06:40 84 08/22/22 06:40 96 08/22/22 04:35 98.2 F 88 20 104/59 L 97 08/21/22 19:31 98.9 F 90 21 127/67 94 L 08/21/22 20:07 98.3 F 61 22 100/80 L 08/21/22 19:11 93 H 08/21/22 19:11 100 H 08/21/22 19:00 98 H 105/59 L 100 08/21/22 18:31 100 H 22 122/59 L 100 08/21/22 18:00 94 H 22 121/62 100 08/21/22 17:31 107 H 24 117/58 L 100 08/21/22 17:21 98.3 F 111 H 30 H 150/76 H 100 Intake and Output 08/21/22 08/22/22 08/22/22 23:59 07:59 15:59 Intake Total 100 / 700 600 / 700 Output Total 200 / 200 200 / 200 0 / 200 Balance -200 / -100 -100 / 500 600 / 500 Intake: Intake, Oral Amount 100 / 700 600 / 700 Output: Output, Urine Amount 200 / 200 200 / 200 0 / 200 Other: Number of Unmeasured Voids 1 1 1 Weight 67.132 kg 67.631 kg Patient Weight 08/22/22 23:59 Weight 67.631 kg Laboratory Results - last 24 hr 08/21/22 17:56: VBG pH 7.33, VBG pCO2 51.8 H, VBG pO2 208.5 H, VBG HCO3 26.4, VBG Total CO2 28.0 H, VBG O2 Saturation 99.0 H, VBG Base Excess 0.4 08/21/22 18:18: WBC 18.5 H, RBC 4.27, Hgb 12.4, Hct 40.9, MCV 95.8, MCH 29.0, MCHC 30.3 L, RDW 15.5, Plt Count 206, MPV 8.5, Neut % (Auto) 75.9, Lymph % (Auto) 15.8, [place] % (Auto) 6.8, Eos % (Auto) 1.0, Baso % (Auto) 0.5, Neut # (Auto) 14.0 H, Lymph # (Auto) 2.9, [place] # (Auto) 1.3 H, Eos # (Auto) 0.2, Baso # (Auto) 0.1, Total Counted 100, Neutrophils % (Manual) 80 H, Lymphocytes % (Manual) 20, Platelet Estimate Normal, Stomatocytes 1+ 08/21/22 18:18: Lactate 2.0 08/21/22 18:20: SARS-CoV-2 (PCR) Not detected, Influenza A Untype (PCR) Not detected, Influenza Type B (PCR) Not detected 08/21/22 18:20: Chlamy pneumoniae PCR Not detected, Adenovirus (PCR) Not detected, B. pertussis DNA (PCR) Not detected, Coronavirus OC43 (PCR) Not detected, Coronavirus HKU1 (PCR) Not detected, Coronavirus 229E (PCR) Not detected, SARS-CoV-2 (PCR) Not detected, Coronavirus NL63 (PCR) Not detected, Human Metapneumovir PCR Not detected, Influenza A (H1) PCR Not detected, Influ A (H1N1/09) PCR Not detected, Influenza A (H3) PCR Not detected, Influenza Type A (PCR) Not detected, Influenza Type B (PCR) Not detected, M. pneumoniae (PCR) Not detected, Parainfluenza 1 (PCR) Not detected, Parainfluenza 2 (PCR) Not detected, Parainfluenza 3 (PCR) Not detected, Parainfluenza 4 (PCR) Not detected, RSV (PCR) Not detected, Entero/Rhino (PCR) Not detected 08/21/22 18:28: Sodium 139, Potassium 4.5, Chloride 97 L, Carbon Dioxide 35 H, Anion Gap 11.5, BUN 25 H, Creatinine 1.20 H, Estimated Creat Clear 49, Estimated GFR 45 L, Est GFR ( Amer) 54 L, Glucose 114 H, Calcium 9.6, Total Bilirubin 0.7, AST 24, ALT 16, Alkaline Phosphatase 128 H, Troponin I < 0.01, Total Protein 8.1, Albumin 4.6, Globulin 3.5 H, Albumin/Globulin Ratio 1.3 08/21/22 21:35: Troponin I < 0.01 08/22/22 00:10: Troponin I < 0.01 08/22/22 11:15: WBC 16.8 H, RBC 3.80 L, Hgb 11.2 L, Hct 36.8 L, MCV 96.9, MCH 29.4, MCHC 30.3 L, RDW 15.5, Plt Count 199, MPV 8.8, Neut % (Auto) 91.7 H, Lymph % (Auto) 4.5 L, [place] % (Auto) 2.4, Eos % (Auto) 1.2, Baso % (Auto) 0.2, Neut # (Auto) 15.4 H, Lymph #
--- NOTE | 2022-08-22 16:58 | PC.NURSE ---
PT IS RESTING IN BED WITH FAMILY AT BEDSIDE. ALERT AND ORIENTED X4. O2 SATURATION HAS MAINTAINED 92-96% ON 2 L NC. AMBULATES TO THE BATHROOM WITH ASSISTANCE. LUNG SOUNDS DIMINISHED. ABDOMEN SOFT/NON TENDER WITH ACTIVE BOWEL SOUNDS. NO SWELLING NOTED TO BLE. WILL CONTINUE TO MONITOR.
[2022-08-23] VITALS (9 sets, daily range): BP systolic 99–125; BP diastolic 62–72; PULSE 69–100; RESP 17–22; TEMP 36.6–37; O2SAT 93–98; BMI 28.5
--- NOTE | 2022-08-23 01:05 | PC.NURSE ---
C/O ACHING AND CRAMPING IN BLEs, REQUESTED AND RECEIVED MOTRIN 800 MG PO FOR PAIN AND ATIVAN 0.5MG PO FOR NERVES.
--- NOTE | 2022-08-23 04:48 | PC.NURSE ---
HAS RESTED WELL SINCE MEDICATED WITH MOTRIN and ativan at 0055. No further complaints voiced. 02 at 2lnc.sats 93-94 % on 02 2lnc. portacath to right upper chest wall accessed and saline locked at this time. Independent to bathroom.
[2022-08-23 08:23] LABS: Basophils # 0.1 K/mm3 (0-0.2); Basophils % 0.2 % (0.1-2.0); Eosinophils # 0.1 K/mm3 (0.0-0.4); Eosinophils % 0.4 % (0.1-12.0); Hematocrit 38.9 % (37.0-47.0); Hemoglobin 11.4 g/dL (12.2-16.2); Lymphocytes # 2.3 K/mm3 (0.7-4.5); Lymphocytes % 10.1 % (10-50); Mean Corpuscular HGB Conc 29.3 g/dL (31.8-35.4); Mean Corpuscular Volume 99.1 fl (81-99); Mean Platelet Volume 9.2 fl (7.4-10.4); Monocytes % 4.3 % (1.7-9.3); Neutrophils # 19.1 K/mm3 (1.8-7.8); Neutrophils % 84.9 % (37.0-80.0); Platelet Count 227 K/mm3 (142-424); Red Blood Count 3.93 M/mm3 (4.20-5.40); Red Cell Distribution Width 15.7 % (11.5-17.5); White Blood Count 22.4 K/mm3 (4.8-10.8)
[2022-08-23 08:55] LABS: MANUAL DIFFERENTIAL MANUAL DIFFERENTIAL (MANUAL DIFF)
[2022-08-23 08:56] LABS: Chloride 102 mmol/L (98-107); Potassium 4.6 mmoL/L (3.5-5.1); Sodium 142 mmol/L (136-145)
[2022-08-23 08:58] LABS: Alanine Aminotransferase 16 U/L (12-78); Aspartate Amino Transferase 25 U/L (14-36); Blood Urea Nitrogen 52 mg/dl (7-17); Creatinine Clearance Estimated 40 mL/min (50-200); Estimated Glomerular Filt Rate 35 ml/min (>60); GFR (African American) 42 ML/MIN (>60)
[2022-08-23 08:59] LABS: Albumin Level 4.3 g/dl (3.5-5.0); Albumin/Globulin Ratio 1.3 (1.1-1.8); Alkaline Phosphatase 99 U/L (38-126); Anion Gap 10.6 mEq/L (5-15); Bilirubin,Total 0.3 mg/dl (0.2-1.3); Calcium 9.9 mg/dl (8.4-10.2); Carbon Dioxide 34 mmol/L (22.0-30.0); Globulin 3.4 g/dL (1.3-3.2); Glucose 98 mg/dl (74-100); Magnesium 2.3 mg/dl (1.6-2.3); Total Protein,Serum 7.7 g/dl (6.3-8.2)
--- NOTE | 2022-08-23 10:46 | EXP.ACUTE.PN ---
Subjective *Date: 08/23/22 *Time: 11:51 Interval history: Patient doing better this morning. Decreased stridor on exam. Oxygen requirement 2 L. No chest pain, nausea, vomiting. Alert and oriented x3. Medical Exam Vital signs and Labs for Last 24 Hours: Vital Signs Temp Pulse Pulse Resp BP Pulse Ox FiO2 08/23/22 10:00 88 08/23/22 10:00 87 08/23/22 10:00 96 08/23/22 07:32 98.5 F 100 H 19 125/70 97 08/23/22 06:05 93 H 08/23/22 06:05 96 H 08/23/22 06:05 98 08/23/22 04:00 97.8 F 95 H 22 104/62 L 93 L 08/23/22 00:00 94 L 08/22/22 23:14 81 08/22/22 23:13 84 08/22/22 19:59 98.7 F 91 H 22 108/52 L 94 L 08/22/22 19:56 95 08/22/22 18:41 28 08/22/22 18:40 87 08/22/22 18:40 81 08/22/22 15:01 98.3 F 93 H 18 94/52 L 96 08/22/22 12:11 84 08/22/22 12:11 94 H 08/22/22 12:11 96 Intake and Output 08/22/22 08/23/22 08/23/22 23:59 07:59 15:59 Intake Total 490 / 1430 480 / 480 Output Total 0 / 200 0 / 0 Balance 490 / 1230 480 / 480 Intake: Intake, Oral Amount 240 / 1180 480 / 480 Intake, Total IV Amount 250 / 250 Doxycycline Hyclate 100 mg In 0 250 / 250 .9 % Sodium Chloride 250 ml @ 166.667 mls/hr IV Q12H [facility] Rx#: [id number] Output: Output, Urine Amount 0 / 200 0 / 0 Other: Weight 68.402 kg Patient Weight 08/23/22 23:59 Weight 68.402 kg Laboratory Results - last 24 hr 08/22/22 11:15: WBC 16.8 H, RBC 3.80 L, Hgb 11.2 L, Hct 36.8 L, MCV 96.9, MCH 29.4, MCHC 30.3 L, RDW 15.5, Plt Count 199, MPV 8.8, Neut % (Auto) 91.7 H, Lymph % (Auto) 4.5 L, [place] % (Auto) 2.4, Eos % (Auto) 1.2, Baso % (Auto) 0.2, Neut # (Auto) 15.4 H, Lymph # (Auto) 0.8, [place] # (Auto) 0.4, Eos # (Auto) 0.2, Baso # (Auto) 0.0, Total Counted 100, Neutrophils % (Manual) 90 H, Lymphocytes % (Manual) 8 L, Monocytes % (Manual) 2, Platelet Estimate Normal, RBC Morphology Normal 08/22/22 11:15: Sodium 138, Potassium 4.4, Chloride 98, Carbon Dioxide 32 H, Anion Gap 12.4, BUN 35 H D, Creatinine 1.40 H, Estimated Creat Clear 42, Estimated GFR 38 L, Est GFR ( Amer) 46 L, Glucose 172 H D, Calcium 9.4, Total Bilirubin 0.5, AST 26, ALT 20, Alkaline Phosphatase 98, Total Protein 7.9, Albumin 4.4, Globulin 3.5 H, Albumin/Globulin Ratio 1.3 08/23/22 07:30: WBC 22.4 H* D, RBC 3.93 L, Hgb 11.4 L, Hct 38.9, MCV 99.1 H, MCH 29.0, MCHC 29.3 L, RDW 15.7, Plt Count 227, MPV 9.2, Neut % (Auto) 84.9 H, Lymph % (Auto) 10.1, [place] % (Auto) 4.3, Eos % (Auto) 0.4, Baso % (Auto) 0.2, Neut # (Auto) 19.1 H, Lymph # (Auto) 2.3, [place] # (Auto) 1.0, Eos # (Auto) 0.1, Baso # (Auto) 0.1 08/23/22 07:30: Sodium 142, Potassium 4.6, Chloride 102, Carbon Dioxide 34 H, Anion Gap 10.6, BUN 52 H D, Creatinine 1.50 H, Estimated Creat Clear 40, Estimated GFR 35 L, Est GFR ( Amer) 42 L, Glucose 98 D, Calcium 9.9, Magnesium 2.3, Total Bilirubin 0.3, AST 25, ALT 16, Alkaline Phosphatase 99, Total Protein 7.7, Albumin 4.3, Globulin 3.4 H, Albumin/Globulin Ratio 1.3 I & O for Labs for Last 24 Hours: Intake & Output 08/20/22 08/21/22 08/22/22 08/23/22 23:59 23:59 23:59 23:59 Intake Total 1190 / 1430 480 / 480 Output Total 200 / 200 200 / 200 0 / 0 Balance -200 / -100 990 / 1230 480 / 480 Weight 67.132 kg 67.631 kg 68.402 kg Constitutional: Present no acute distress, average body habitus and chronically ill appearing Head: Present atraumatic and normocephalic ENT: Present normal exam Neck: Present normal inspection Respiratory: Present stridor (Interval improved) and normal respiratory effort; Absent accessory muscle use, rhonchi, wheezes or crackles Cardiac: Present Reg Rate and Rhythm GI: Present soft, distention and normal bowel sounds; Absent tenderness Extremities: Present normal inspection and full ROM Skin: Present intact; Absent erythema Neuro: Present Grossly Intact, alert, awake, orie
[2022-08-23 11:20] LABS: Lymphocytes % 21 % (10-50); Monocytes % 6 % (2-9); Neutrophils % 73 % (42-76); Platelet Estimate Normal; RBC Morphology Normal; Total Cells Counted 100
--- NOTE | 2022-08-23 17:30 | PC.NURSE ---
pt has done well this shift, pt states she feels better but voiced concerns of a yeast infection due to abx use, notified aura rhoades ordered. lungs cta, 2l o2 via nc, o2 drops down to 86% on RA. pt took a shower. no questions or concerns at this time. at bedside.
[2022-08-24] VITALS (7 sets, daily range): BP systolic 107–134; BP diastolic 60–73; PULSE 69–87; RESP 17–22; TEMP 36.7–37.3; O2SAT 89–100; BMI 28.6
--- NOTE | 2022-08-24 05:12 | PC.NURSE ---
Pt. on o2 2l nc, lung sounds clear, R access to chest flushes with no issues, pulmonary consult today and may be going home, up ad ernestina to the restroom, aox4, no issues noted.
[2022-08-24 07:05] LABS: Chloride 104 mmol/L (98-107)
[2022-08-24 07:06] LABS: Potassium 5.1 mmoL/L (3.5-5.1)
[2022-08-24 07:08] LABS: Alanine Aminotransferase 15 U/L (12-78); Aspartate Amino Transferase 19 U/L (14-36); Blood Urea Nitrogen 40 mg/dl (7-17); Creatinine Clearance Estimated 55 mL/min (50-200); Estimated Glomerular Filt Rate 50 ml/min (>60); GFR (African American) 60 ML/MIN (>60)
[2022-08-24 07:09] LABS: Albumin Level 3.7 g/dl (3.5-5.0); Albumin/Globulin Ratio 1.4 (1.1-1.8); Alkaline Phosphatase 71 U/L (38-126); Bilirubin,Total 0.3 mg/dl (0.2-1.3); Calcium 9.2 mg/dl (8.4-10.2); Carbon Dioxide 33 mmol/L (22.0-30.0); Globulin 2.7 g/dL (1.3-3.2); Glucose 93 mg/dl (74-100); Total Protein,Serum 6.4 g/dl (6.3-8.2)
[2022-08-24 07:14] LABS: Anion Gap 8.1 mEq/L (5-15); Sodium 140 mmol/L (136-145)
[2022-08-24 07:21] LABS: Basophils % 0.3 % (0.1-2.0); Eosinophils # 0.1 K/mm3 (0.0-0.4); Eosinophils % 0.8 % (0.1-12.0); Hematocrit 36.3 % (37.0-47.0); Hemoglobin 10.6 g/dL (12.2-16.2); Lymphocytes # 2.8 K/mm3 (0.7-4.5); Lymphocytes % 20.2 % (10-50); Mean Corpuscular HGB Conc 29.2 g/dL (31.8-35.4); Mean Corpuscular Hemoglobin 28.4 pg (27.0-31.2); Mean Corpuscular Volume 97.3 fl (81-99); Mean Platelet Volume 9.4 fl (7.4-10.4); Monocytes # 0.6 K/mm3 (0.1-1.0); Monocytes % 4.6 % (1.7-9.3); Neutrophils # 10.4 K/mm3 (1.8-7.8); Neutrophils % 74.2 % (37.0-80.0); Platelet Count 204 K/mm3 (142-424); Red Blood Count 3.73 M/mm3 (4.20-5.40); Red Cell Distribution Width 15.8 % (11.5-17.5)
--- NOTE | 2022-08-24 09:40 | EXP.PULM.CON ---
History of Present Illness History of present illness: Ms. Yeh is a 66-year-old female history of stage IV lung cancer with brain mets status post lobectomy chemoimmunotherapy,, hypertension to the brain, COPD on Advair discus at home, nocturnal oxygen therapy, presented to the hospital with worsening respiratory distress and also concerning for progressively worsening stridor and was eventually admitted to the hospital for observation and pulmonary was consulted for further evaluation. [facility] Disclaimer: The information contained in this section may have been updated after the patient was seen, as this information can be updated by other users. Medical History (Updated 08/24/22 @ 11:44 by Liya Moreira MD) Acute respiratory failure with hypoxia History of heart attack History of transient ischemic attack (TIA) Lung cancer Surgical History History of abdominal surgery History of adrenal surgery History of appendectomy History of brain surgery History of colonoscopy History of lung surgery Family History Other Family history of cancer Family history of myocardial infarction Social History Smoking Status: Former smoker alcohol intake: current substance use type: denies use and other current occupational status: unemployed Travel in the last 8 weeks: None household members: spouse housing: house current occupational exposures/hazards: No caffeine: Yes Review of Systems Constitutional Constitutional: Reports anorexia, Reports body ache(s) and Reports fatigue Eyes Eyes: Denies eye discharge, Denies dry eyes, Denies irritation and Denies itchy eyes ENT Ears, Nose, Mouth, and Throat: Denies epistaxis, Denies facial pain, Denies lip swelling, Reports sore throat and Reports throat swelling *Cardiovascular Cardiovascular: Reports dyspnea and Reports dyspnea on exertion *Respiratory Respiratory: Reports chest congestion, Reports cough, Reports dyspnea, Reports dyspnea on exertion, Reports excessive phlegm production, Denies hemoptysis, Denies pain on inspiration and Denies wheezing *Gastrointestinal Gastrointestinal: Denies abdominal pain, Denies belching and Denies cramping *Musculoskeletal Musculoskeletal: Reports back pain, Reports myalgias and Reports other (No small joint swelling or Pain) *Neurologic Neurologic: Reports system reviewed and no additional complaints, except as documented Psychiatric Psychiatric: Denies homicidal ideation and Denies suicidal ideation Endocrine Endocrine: Reports fatigue and Denies heat intolerance Hematologic/Lymphatic Hematologic/Lymphatic: Denies easy bleeding and Denies lymphadenopathy Allergic/Immunologic Allergic/Immunologic: Denies itchy eyes, Denies lip swelling, Reports throat swelling and Denies wheezing Pulmonology Exam Inpatient Vital signs and Labs for Last 24 Hours: Temp Pulse Resp BP Pulse Ox FiO2 98.5 F 69 18 127/67 94 L 28 08/24/22 07:26 08/24/22 07:26 08/24/22 07:26 08/24/22 07:26 08/24/22 07:26 08/22/22 18:41 Laboratory Results - last 24 hr 08/23/22 07:30: Total Counted 100, Neutrophils % (Manual) 73, Lymphocytes % (Manual) 21, Monocytes % (Manual) 6, Platelet Estimate Normal, RBC Morphology Normal 08/24/22 06:28: Sodium 140, Potassium 5.1, Chloride 104, Carbon Dioxide 33 H, Anion Gap 8.1, BUN 40 H, Creatinine 1.10 H D, Estimated Creat Clear 55, Estimated GFR 50 L, Est GFR ( Amer) 60 D, Glucose 93, Calcium 9.2, Total Bilirubin 0.3, AST 19, ALT 15, Alkaline Phosphatase 71, Total Protein 6.4, Albumin 3.7 D, Globulin 2.7, Albumin/Globulin Ratio 1.4 08/24/22 06:28: WBC 14.0 H D, RBC 3.73 L, Hgb 10.6 L, Hct 36.3 L, MCV 97.3, MCH 28.4, MCHC 29.2 L, RDW 15.8, Plt Count 204, MPV 9.4, Neut % (Auto) 74.2, Lymph % (Auto) 20.2, [place] % (Auto) 4.6, Eos % (Auto) 0.8, Baso % (A
--- NOTE | 2022-08-24 11:13 | EXP.ACUTE.PN ---
Subjective *Date: 08/24/22 *Time: 11:13 Interval history: Patient doing better this morning. Improvement in stridor. Pulmonology seeing patient this morning. Stable on 2 L nasal cannula oxygen. Tolerating p.o. intake. No acute events overnight. Medical Exam Vital signs and Labs for Last 24 Hours: Vital Signs Temp Pulse Pulse Resp BP Pulse Ox 08/24/22 10:42 89 L 08/24/22 07:26 98.5 F 69 18 127/67 94 L 08/24/22 06:15 85 08/24/22 06:15 87 08/24/22 04:00 98.1 F 72 17 110/71 100 08/23/22 20:00 97 08/23/22 20:00 97.9 F 69 18 114/72 97 08/23/22 19:42 79 08/23/22 19:42 88 08/23/22 19:42 98 08/23/22 15:30 98.6 F 84 17 99/64 L 96 08/23/22 14:03 95 H 08/23/22 14:03 98 H 08/23/22 14:03 93 L Intake and Output 08/23/22 08/24/22 08/24/22 23:59 07:59 15:59 Intake Total 360 / 360 Output Total 0 / 0 0 / 0 0 / 0 Balance 0 / 840 360 / 360 0 / 360 Intake: Intake, Oral Amount 360 / 360 Output: Output, Urine Amount 0 / 0 0 / 0 0 / 0 Other: Number of Unmeasured Voids 1 3 1 Weight 68.402 kg 68.855 kg Patient Weight 08/24/22 23:59 Weight 68.855 kg Laboratory Results - last 24 hr 08/23/22 07:30: Total Counted 100, Neutrophils % (Manual) 73, Lymphocytes % (Manual) 21, Monocytes % (Manual) 6, Platelet Estimate Normal, RBC Morphology Normal 08/24/22 06:28: Sodium 140, Potassium 5.1, Chloride 104, Carbon Dioxide 33 H, Anion Gap 8.1, BUN 40 H, Creatinine 1.10 H D, Estimated Creat Clear 55, Estimated GFR 50 L, Est GFR ( Amer) 60 D, Glucose 93, Calcium 9.2, Total Bilirubin 0.3, AST 19, ALT 15, Alkaline Phosphatase 71, Total Protein 6.4, Albumin 3.7 D, Globulin 2.7, Albumin/Globulin Ratio 1.4 08/24/22 06:28: WBC 14.0 H D, RBC 3.73 L, Hgb 10.6 L, Hct 36.3 L, MCV 97.3, MCH 28.4, MCHC 29.2 L, RDW 15.8, Plt Count 204, MPV 9.4, Neut % (Auto) 74.2, Lymph % (Auto) 20.2, [place] % (Auto) 4.6, Eos % (Auto) 0.8, Baso % (Auto) 0.3, Neut # (Auto) 10.4 H, Lymph # (Auto) 2.8, [place] # (Auto) 0.6, Eos # (Auto) 0.1, Baso # (Auto) 0.0 I & O for Labs for Last 24 Hours: Intake & Output 08/21/22 08/22/22 08/23/22 08/24/22 23:59 23:59 23:59 23:59 Intake Total 1190 / 1430 840 / 840 360 / 360 Output Total 200 / 200 200 / 200 0 / 0 0 / 0 Balance -200 / -100 990 / 1230 840 / 840 360 / 360 Weight 67.132 kg 67.631 kg 68.402 kg 68.855 kg Microbiology Reports for the Last 24 Hours: Microbiology 08/21/22 18:28 Blood Blood Culture - Preliminary NO GROWTH AFTER 48 HOURS 08/21/22 18:18 Blood Blood Culture - Preliminary NO GROWTH AFTER 48 HOURS 08/23/22 15:10 Sputum - Expectorated Sputum Gram Stain - Final Constitutional: Present no acute distress, average body habitus and chronically ill appearing Head: Present atraumatic and normocephalic ENT: Present normal exam Neck: Present normal inspection Respiratory: Present stridor (Interval improvement, minimal today) and normal respiratory effort; Absent accessory muscle use, rhonchi, wheezes or crackles Cardiac: Present Reg Rate and Rhythm GI: Present soft, distention and normal bowel sounds; Absent tenderness Extremities: Present normal inspection and full ROM Skin: Present intact; Absent erythema Neuro: Present Grossly Intact, alert, awake, oriented x 3 and moves all extremities Assessment and Plan *Assessment and plan (1) Stridor: Status: Acute Category: Medical Code(s): R06.1 - Stridor (2) COPD exacerbation: Status: Acute Category: Medical Code(s): J44.1 - Chronic obstructive pulmonary disease with (acute) exacerbation (3) Stage 4 lung cancer: Status: Acute Category: Medical Code(s): C34.90 - Malignant neoplasm of unspecified part of unspecified bronchus or lung (4) Anxiety disorder: Status: Acute Category: Medical Code(s): F41.9 - Anxie
[2022-08-24 11:34] LABS: Strep Scrn Group A (Rapid) Negative (Negative)
--- NOTE | 2022-08-24 11:49 | XR_ITS ---
FINAL REPORT CLINICAL HISTORY: PNM COMPARISON: 08/21/2022 FINDINGS: PORTABLE CHEST A right IJ chest port is present with its tip in the SVC. The heart is normal in size. The mediastinum is unremarkable. There is a little bit of scarring in the left lung base. The lungs are otherwise clear. There is no pneumothorax. IMPRESSION: No acute process. Reviewed, Interpreted and Dictated by Lorenzo Buck MD Transcribed by Adamaris Yeboah Authenticated and . [facility]
--- NOTE | 2022-08-24 16:10 | PC.NURSE ---
Addendum entered by Izzy Khan RN 08/24/22 16:10: Patient ambulated in room, to bathroom and back to bed without obvious issue. Original Note: Patient arrived to the floor.
--- NOTE | 2022-08-25 01:01 | P.PN_ITS ---
Subjective *Date: 08/25/22 *Time: 01:01 Exam Data for Last 24 hours Vital signs and Labs for Last 24 Hours: Temp Pulse Resp BP Pulse Ox FiO2 99.1 F 85 22 134/73 99 28 08/24/22 20:00 08/24/22 20:00 08/24/22 20:00 08/24/22 20:00 08/24/22 20:00 08/22/22 18:41 Laboratory Results - last 24 hr 08/24/22 06:28: Sodium 140, Potassium 5.1, Chloride 104, Carbon Dioxide 33 H, Anion Gap 8.1, BUN 40 H, Creatinine 1.10 H D, Estimated Creat Clear 55, Estimated GFR 50 L, Est GFR ( Amer) 60 D, Glucose 93, Calcium 9.2, Total Bilirubin 0.3, AST 19, ALT 15, Alkaline Phosphatase 71, Total Protein 6.4, Albumin 3.7 D, Globulin 2.7, Albumin/Globulin Ratio 1.4 08/24/22 06:28: WBC 14.0 H D, RBC 3.73 L, Hgb 10.6 L, Hct 36.3 L, MCV 97.3, MCH 28.4, MCHC 29.2 L, RDW 15.8, Plt Count 204, MPV 9.4, Neut % (Auto) 74.2, Lymph % (Auto) 20.2, [place] % (Auto) 4.6, Eos % (Auto) 0.8, Baso % (Auto) 0.3, Neut # (Auto) 10.4 H, Lymph # (Auto) 2.8, [place] # (Auto) 0.6, Eos # (Auto) 0.1, Baso # (Auto) 0.0 08/24/22 11:20: Group A Strep Rapid Negative I & O for Last 24 hours: Intake & Output 08/22/22 08/23/22 08/24/22 08/25/22 23:59 23:59 23:59 23:59 Intake Total 1190 / 1430 840 / 840 1450 / 1450 Output Total 200 / 200 0 / 0 0 / 0 Balance 990 / 1230 840 / 840 1450 / 1450 Weight 67.631 kg 68.402 kg 68.855 kg Assessment and Plan *Assessment and plan Plan Ms. Yeh is a 66 year old female with a past medical history of stage 4 lung cancer with metastasis to the brain (diagnosed in 2019 s/p lobectomy, chemotherapy and immunotherapy), COPD (oxygen dependent at 3L QH and chronic prednisone therapy), HTN, HLD and anxiety disorder. She presented on 08/21 with 4 days of stridor and worsening shortness of breath and was admitted with COPD exacerbation. COVID and flu tests were negative. CXR did not reveal any acute cardiopulmonary findings. CBC had an elevated WBC but the patient is on chronic steroids. CMP showed a slightly elevated creatinine level of 1.2 but appeared to be better than her recent baseline. She respondwas started on treatments of doxycycline, duonebs and steroids. She also received racemic epinephrine for stridor. CT neck with no evidence of tracheal stenosis. #acute on chronic hypoxic respiratory failure #COPD exacerbation #stridor Yesterday epinephrine, doxycycline and dexamethasone were discontinued. Rapid strep swab was recommended and the patient was started on prednisone, advair and cefdinir. sputum culture is pending. continuing duonebs q6h, supplemental oxygen with goal saturations greater than 90%. yesterday was on 2L. D/C with epipen? per pulm, if any signs of worsening stridor the plan for bronchoscopy DVT ppx: heparin subcu Regular diet Full diet
[2022-08-25 04:00] VITALS: BP 121/76; PULSE 71; RESP 20; TEMP 36.5; O2SAT 98; BMI 28.7
--- NOTE | 2022-08-25 04:24 | PC.NURSE ---
No issues noted throughout the night. Pt. to be discharged today.
[2022-08-25 05:44] VITALS: PULSE 72; PULSE 74; O2SAT 98
[2022-08-25 06:28] LABS: Basophils % 0.3 % (0.1-2.0); Eosinophils # 0.1 K/mm3 (0.0-0.4); Eosinophils % 0.6 % (0.1-12.0); Lymphocytes # 2.7 K/mm3 (0.7-4.5); Lymphocytes % 26.1 % (10-50); Mean Corpuscular Hemoglobin 28.3 pg (27.0-31.2); Mean Corpuscular Volume 97.6 fl (81-99); Mean Platelet Volume 7.8 fl (7.4-10.4); Monocytes # 0.6 K/mm3 (0.1-1.0); Monocytes % 5.5 % (1.7-9.3); Neutrophils % 67.4 % (37.0-80.0); Platelet Count 186 K/mm3 (142-424); Red Blood Count 3.89 M/mm3 (4.20-5.40); Red Cell Distribution Width 15.4 % (11.5-17.5); White Blood Count 10.3 K/mm3 (4.8-10.8)
[2022-08-25 06:39] LABS: Chloride 102 mmol/L (98-107); Potassium 4.7 mmoL/L (3.5-5.1); Sodium 140 mmol/L (136-145)
[2022-08-25 06:41] LABS: Alanine Aminotransferase 16 U/L (12-78); Aspartate Amino Transferase 23 U/L (14-36); Blood Urea Nitrogen 43 mg/dl (7-17); Creatinine Clearance Estimated 50 mL/min (50-200); Estimated Glomerular Filt Rate 45 ml/min (>60); GFR (African American) 54 ML/MIN (>60)
[2022-08-25 06:42] LABS: Albumin Level 3.8 g/dl (3.5-5.0); Albumin/Globulin Ratio 1.3 (1.1-1.8); Alkaline Phosphatase 78 U/L (38-126); Anion Gap 7.7 mEq/L (5-15); Bilirubin,Total 0.3 mg/dl (0.2-1.3); Calcium 9.3 mg/dl (8.4-10.2); Carbon Dioxide 35 mmol/L (22.0-30.0); Glucose 100 mg/dl (74-100); Total Protein,Serum 6.8 g/dl (6.3-8.2)
[2022-08-25 08:00] VITALS: BP 120/53; PULSE 69; RESP 19; TEMP 37.3; O2SAT 90; O2SAT 95
--- NOTE | 2022-08-25 09:37 | EXP.PULM.PN ---
Subjective *Date: 08/25/22 *Time: 10:06 Interval history: No acute respiratory vents overnight. Continue improvement in her respiratory symptoms Pulmonology Exam Inpatient Vital signs and Labs for Last 24 Hours: Temp Pulse Resp BP Pulse Ox FiO2 99.2 F 69 19 120/53 L 90 L 28 08/25/22 08:00 08/25/22 08:00 08/25/22 08:00 08/25/22 08:00 08/25/22 08:00 08/22/22 18:41 Laboratory Results - last 24 hr 08/24/22 11:20: Group A Strep Rapid Negative 08/25/22 06:05: Sodium 140, Potassium 4.7, Chloride 102, Carbon Dioxide 35 H, Anion Gap 7.7, BUN 43 H, Creatinine 1.20 H, Estimated Creat Clear 50, Estimated GFR 45 L, Est GFR ( Amer) 54 L, Glucose 100, Calcium 9.3, Total Bilirubin 0.3, AST 23, ALT 16, Alkaline Phosphatase 78, Total Protein 6.8, Albumin 3.8, Globulin 3.0, Albumin/Globulin Ratio 1.3 08/25/22 06:05: WBC 10.3 D, RBC 3.89 L, Hgb 11.0 L, Hct 38.0, MCV 97.6, MCH 28.3, MCHC 29.0 L, RDW 15.4, Plt Count 186, MPV 7.8, Neut % (Auto) 67.4, Lymph % (Auto) 26.1, [place] % (Auto) 5.5, Eos % (Auto) 0.6, Baso % (Auto) 0.3, Neut # (Auto) 7.0, Lymph # (Auto) 2.7, [place] # (Auto) 0.6, Eos # (Auto) 0.1, Baso # (Auto) 0.0 I & O for Labs for Last 24 Hours: Intake & Output 08/22/22 08/23/22 08/24/22 08/25/22 23:59 23:59 23:59 23:59 Intake Total 1190 / 1430 840 / 840 1450 / 1450 480 / 480 Output Total 200 / 200 0 / 0 0 / 0 0 / 0 Balance 990 / 1230 840 / 840 1450 / 1450 480 / 480 Weight 149 lb 1.6 oz 150 lb 12.809 oz 151 lb 12.8 oz 152 lb 1.6 oz Microbiology Reports for the Last 24 Hours: Microbiology 08/23/22 15:10 Sputum - Expectorated Sputum Gram Stain - Final 08/23/22 15:10 Sputum - Expectorated Sputum Sputum Culture - Preliminary Constitutional: Present moderate distress Head: Present normocephalic and atraumatic ENT: Present normal exam, normal oropharynx and mucous membranes moist Comment:: No stridor Neck: Present normal inspection and full ROM Respiratory: Present respiratory distress, diminished air movement and able to speak in complete sentences; Absent wheezes or crackles Cardiac: Present S1/S2, Tachycardia and radial pulses present GI: Present soft and distention; Absent tenderness or guarding Rectal (female): Present deferred (female): Present deferred Skin: Present intact; Absent cyanosis or jaundice Neuro: Present alert, awake and oriented x 3 Extremities: Present normal inspection; Absent clubbing or cyanosis Psychiatric: Present normal affect and cooperative Assessment and Plan *Assessment and plan (1) Stridor: Status: Acute Category: Medical Code(s): R06.1 - Stridor (2) Acute exacerbation of chronic obstructive pulmonary disease: Status: Acute Category: Medical Code(s): J44.1 - Chronic obstructive pulmonary disease with (acute) exacerbation (3) Acute respiratory failure with hypoxia: Status: Acute Category: Medical Code(s): J96.01 - Acute respiratory failure with hypoxia Plan Ms. Yeh is a 66-year-old female history of stage IV lung cancer with brain mets status post lobectomy chemoimmunotherapy,, hypertension to the brain, COPD on Advair discus at home, nocturnal oxygen therapy, presented to the hospital with worsening respiratory distress and also concerning for progressively worsening stridor and was eventually admitted to the hospital for observation and evaluation. Patient also had racemic epinephrine along with DuoNebs magnesium in the ER. Chest x-ray upon admission personally reviewed no dense consolidation. Labs on admission personally reviewed, Leukocytosis improving. Comprehensive respiratory viral PCR negative. ABG from admission no evidence of hypoxic respiratory failure, mild hypercarbic respiratory failure. Patient is eceiving doxycycline along with dexamethasone 6 mg IV daily along with scheduled racemic epinephrine. Patient admits difficulty breathing that has been significantly improved since admission but she has bee
--- NOTE | 2022-08-25 11:20 | EXP.DC.SUM ---
General Admission date:: 08/21/22 Discharge date: 08/25/22 Hospital Course Hospital Course Hospital Course: Ms. Yeh is a 66 year old female with a past medical history of stage 4 lung cancer with metastasis to the brain (diagnosed in 2019 s/p lobectomy, chemotherapy and immunotherapy), COPD (oxygen dependent at 3L QH and chronic prednisone therapy), HTN, HLD and anxiety disorder. She presented on 08/21 with 4 days of stridor and worsening shortness of breath and was admitted with COPD exacerbation. COVID and flu tests were negative. CXR did not reveal any acute cardiopulmonary findings. CBC had an elevated WBC but the patient is on chronic steroids. CMP showed a slightly elevated creatinine level of 1.2 but appeared to be better than her recent baseline. She was started on treatments of doxycycline, DuoNebs and dexamethasone. She also received racemic epinephrine for stridor. CT neck with no evidence of tracheal stenosis. Rapid strep test was negative. CXR was without acute airspace disease. Per Pulmonology, etiology of stridor is unclear; differential diagnosis includes vocal cord weakness/paralysis along with with airway edema. She had complained of muffled voice and hoarseness since completion of chemoimmunotherapy. She denies any prior choking episodes. She has a history of being intubated for 4-5 days in 2020 but no mention of a difficult airway during that hospitalization. #acute on chronic hypoxic respiratory failure #COPD exacerbation #stridor Exam Data for Last 24 hours Vital signs and Labs for Last 24 Hours: Temp Pulse Resp BP Pulse Ox FiO2 99.2 F 69 19 120/53 L 90 L 28 08/25/22 08:00 08/25/22 08:00 08/25/22 08:00 08/25/22 08:00 08/25/22 08:00 08/22/22 18:41 Laboratory Results - last 24 hr 08/24/22 11:20: Group A Strep Rapid Negative 08/25/22 06:05: Sodium 140, Potassium 4.7, Chloride 102, Carbon Dioxide 35 H, Anion Gap 7.7, BUN 43 H, Creatinine 1.20 H, Estimated Creat Clear 50, Estimated GFR 45 L, Est GFR ( Amer) 54 L, Glucose 100, Calcium 9.3, Total Bilirubin 0.3, AST 23, ALT 16, Alkaline Phosphatase 78, Total Protein 6.8, Albumin 3.8, Globulin 3.0, Albumin/Globulin Ratio 1.3 08/25/22 06:05: WBC 10.3 D, RBC 3.89 L, Hgb 11.0 L, Hct 38.0, MCV 97.6, MCH 28.3, MCHC 29.0 L, RDW 15.4, Plt Count 186, MPV 7.8, Neut % (Auto) 67.4, Lymph % (Auto) 26.1, [place] % (Auto) 5.5, Eos % (Auto) 0.6, Baso % (Auto) 0.3, Neut # (Auto) 7.0, Lymph # (Auto) 2.7, [place] # (Auto) 0.6, Eos # (Auto) 0.1, Baso # (Auto) 0.0 I & O for Last 24 hours: Intake & Output 08/22/22 08/23/22 08/24/22 08/25/22 23:59 23:59 23:59 23:59 Intake Total 1190 / 1430 840 / 840 1450 / 1450 480 / 480 Output Total 200 / 200 0 / 0 0 / 0 0 / 0 Balance 990 / 1230 840 / 840 1450 / 1450 480 / 480 Weight 67.631 kg 68.402 kg 68.855 kg 68.991 kg Microbiology Reports for the Last 24 Hours: Microbiology 08/23/22 15:10 Sputum - Expectorated Sputum Gram Stain - Final 08/23/22 15:10 Sputum - Expectorated Sputum Sputum Culture - Preliminary Constitutional Constitutional: no acute distress *Routine HEENT Exam Head: Present normocephalic Eye: Present EOMI and PERRL ENT: Present mucous membranes moist *Routine Neck Exam Neck: Present supple; Absent lymphadenopathy *Routine Respiratory Exam Respiratory: Present accessory muscle use, CTA bilaterally and able to speak in complete sentences *Routine Cardiovascular Exam Cardiovascular: Present RRR *Routine Abdominal Exam Abdominal: Present soft and normoactive bowel sounds; Absent tenderness *Routine Extremities Exam Extremities: Absent cyanosis, clubbing or edema *Routine Skin Exam Skin: Present warm; Absent rash *Routine Neurological Exam Neurological: Present alert and oriented X3 Results Data Completed and Pending Labs on day of discharge: Labs from last 24 hours 08/25/22 08/25/22 08/24/22 06:05 06:05 11:20 WBC 10.3 D RBC 3.89 L Hgb 11.0 L Hct 38.0 MCV 97.6
--- NOTE | 2022-08-25 11:45 | PC.NURSE ---
Patient asked to be sent home with a script for Fluconazole for yeast infection prevention. Called talia Collins to be sent to the pharmacy of choice.
--- NOTE | 2022-08-25 13:42 | HMH.PHAINT1 ---
Pharmacy Intervention Comments: Counseled patient on 5 new medications to START upon discharge. Patient expressed understanding of medications' dose, route, frequency, indication, and potential side effects.
--- NOTE | 2022-08-25 14:45 | PC.NURSE ---
Patient called back, the [facility] did not receive the prescriptions, spoke to a pharmacist, prescripts read/given over the telephone.
--- NOTE | 2022-08-26 14:49 | CARE MANAGER ---
Contacted patient related to hospital discharge. Patient states that she is doing better. She is aware of her follow up appointments and denies any questions or concerns. ASHLEY Lim
== END 2022-08-25 13:51 | disposition home or self-care (01) | DRG 189 ==
LOC: ER 19:08 → 2ND 19:59
PROVIDERS: Internal Medicine Adolescent Medicine; Nurse Practitioner Family; Admitting Provider Student in an Organized Health Care Education/Training Program; Emergency Provider Student in an Organized Health Care Education/Training Program; PCP Nurse Practitioner Family; Visit Provider Student in an Organized Health Care Education/Training Program
DX: J96.01 Acute respiratory failure with hypoxia (principal); J44.1 Chronic obstructive pulmonary disease with (acute) exacerbation; C34.92 Malignant neoplasm of unspecified part of left bronchus or lung; C79.31 Secondary malignant neoplasm of brain; Z99.81 Dependence on supplemental oxygen; I10 Essential (primary) hypertension; E78.5 Hyperlipidemia, unspecified; Z79.899 Other long term (current) drug therapy; F41.9 Anxiety disorder, unspecified; Z20.822 Contact with and (suspected) exposure to COVID-19; I25.10 Atherosclerotic heart disease of native coronary artery without angina pectoris; Z87.891 Personal history of nicotine dependence; Z85.118 Personal history of other malignant neoplasm of bronchus and lung; J38.00 Paralysis of vocal cords and larynx, unspecified; R60.9 Edema, unspecified
CPT/HCPCS: 36415; 70490; 71045; 80053; 82803; 83605; 83735; 84484; 85007; 85025; 87040; 87070; 87205; 87430; 87581; 87632; 87798; 93005; 94640; 94761; 99291; C9803; G0378; J1642; J3475; U0003; U0005

== ENCOUNTER 2022-10-08 12:51 | Outpatient (CLI) | payer MEDICARE, SELFPAY | END 2022-10-08 13:10 | disposition home or self-care (01) | LOC: INF 12:51 | PROVIDERS: PCP Nurse Practitioner Family; Visit Provider Internal Medicine Hematology & Oncology | DX: Z45.2 Encounter for adjustment and management of vascular access device (principal) | CPT/HCPCS: 96523; J1642 ==

== ENCOUNTER → 2022-11-03 09:51 | Outpatient (CLI) | payer MEDICARE, SELFPAY ==
[2022-11-03 10:40] VITALS: PULSE 83; PULSE 87
== END ==
PROVIDERS: PCP Nurse Practitioner Family; Visit Provider Internal Medicine Pulmonary Disease
DX: R06.02 Shortness of breath (principal)
CPT/HCPCS: 94060; 94640

== ENCOUNTER → 2022-11-06 13:52 | Outpatient (CLI) | payer MEDICARE, SELFPAY | PROVIDERS: PCP Nurse Practitioner Family; Visit Provider Internal Medicine Pulmonary Disease | DX: R06.02 Shortness of breath (principal) | CPT/HCPCS: 94762 ==

== ENCOUNTER 2022-12-02 13:19 | Outpatient (CLI) | payer MEDICARE, SELFPAY | END 2022-12-02 13:40 | disposition home or self-care (01) | LOC: INF 13:21 | PROVIDERS: PCP Nurse Practitioner Family; Visit Provider Internal Medicine Hematology & Oncology | DX: Z45.2 Encounter for adjustment and management of vascular access device (principal); C34.90 Malignant neoplasm of unspecified part of unspecified bronchus or lung | CPT/HCPCS: 96523; J1642 ==

== ENCOUNTER 2023-01-08 13:00 | Outpatient (CLI) | payer MEDICARE, SELFPAY | END 2023-01-08 13:16 | disposition home or self-care (01) | LOC: INF 13:01 | PROVIDERS: PCP Nurse Practitioner Family; Visit Provider Internal Medicine Hematology & Oncology | DX: Z45.2 Encounter for adjustment and management of vascular access device (principal) | CPT/HCPCS: 96523; J1642 ==

== ENCOUNTER 2023-02-18 13:15 | Outpatient (CLI) | payer MEDICARE, SELFPAY | END 2023-02-18 13:30 | disposition home or self-care (01) | LOC: INF 13:16 | PROVIDERS: PCP Nurse Practitioner Family; Visit Provider Internal Medicine Hematology & Oncology | DX: C34.90 Malignant neoplasm of unspecified part of unspecified bronchus or lung (principal); Z45.2 Encounter for adjustment and management of vascular access device | CPT/HCPCS: 96523; J1642 ==

== ENCOUNTER 2023-03-31 13:44 | Outpatient (CLI) | payer MEDICARE, SELFPAY | END 2023-03-31 14:17 | disposition home or self-care (01) | LOC: INF 13:45 | PROVIDERS: PCP Nurse Practitioner Family; Visit Provider Internal Medicine Hematology & Oncology | DX: Z45.2 Encounter for adjustment and management of vascular access device (principal); C34.90 Malignant neoplasm of unspecified part of unspecified bronchus or lung | CPT/HCPCS: 96523; J1642 ==

== ENCOUNTER 2023-05-13 13:54 | Outpatient (CLI) | payer MEDICARE, SELFPAY ==
[2023-05-13] MEDS: SODIUM CHLORIDE 0.9% 10ML FLUSH SYRINGE 20 ML IV (14:08)
== END 2023-05-13 14:10 | disposition home or self-care (01) ==
LOC: INF 13:55
PROVIDERS: PCP Nurse Practitioner Family; Visit Provider Nurse Practitioner Family
DX: C34.90 Malignant neoplasm of unspecified part of unspecified bronchus or lung (principal); Z45.2 Encounter for adjustment and management of vascular access device
CPT/HCPCS: 96523; J1642

== ENCOUNTER 2023-06-22 10:35 | Outpatient (CLI) | payer MEDICARE, SELFPAY ==
[2023-06-22] MEDS: SODIUM CHLORIDE 0.9% 10ML FLUSH SYRINGE 20 ML IV (11:05)
== END 2023-06-22 11:15 | disposition home or self-care (01) ==
LOC: INF 10:36
PROVIDERS: PCP Nurse Practitioner Family; Visit Provider Internal Medicine Hematology & Oncology
DX: Z45.2 Encounter for adjustment and management of vascular access device (principal); C34.90 Malignant neoplasm of unspecified part of unspecified bronchus or lung
CPT/HCPCS: 96523; J1642

== ENCOUNTER 2023-09-15 13:45 | Outpatient (CLI) | payer MEDICARE, SELFPAY ==
[2023-09-15] MEDS: SODIUM CHLORIDE 0.9% 10ML FLUSH SYRINGE 10 ML IV ×2 (14:19)
== END 2023-09-15 14:15 | disposition home or self-care (01) ==
LOC: INF 13:46
PROVIDERS: PCP Nurse Practitioner Family; Visit Provider Nurse Practitioner Family
DX: C34.90 Malignant neoplasm of unspecified part of unspecified bronchus or lung (principal); Z45.2 Encounter for adjustment and management of vascular access device
CPT/HCPCS: 96523; J1642

== ENCOUNTER 2023-10-22 13:08 | Outpatient (CLI) | payer MEDICARE, SELFPAY ==
[2023-10-22] MEDS: SODIUM CHLORIDE 0.9% 10ML FLUSH SYRINGE 10 ML IV ×2 (13:15)
== END 2023-10-22 13:15 | disposition home or self-care (01) ==
LOC: INF 13:08
PROVIDERS: PCP Nurse Practitioner Family; Visit Provider Internal Medicine Hematology & Oncology
DX: Z45.2 Encounter for adjustment and management of vascular access device (principal); C34.90 Malignant neoplasm of unspecified part of unspecified bronchus or lung
CPT/HCPCS: 96523; J1642

== ENCOUNTER 2024-03-14 13:29 | Outpatient (CLI) | payer MEDICARE, SELFPAY ==
[2024-03-14] MEDS: SODIUM CHLORIDE 0.9% 10ML FLUSH SYRINGE 20 ML IV (14:32)
== END 2024-03-14 13:45 | disposition home or self-care (01) ==
LOC: INF 13:29
PROVIDERS: PCP Nurse Practitioner Family; Visit Provider Internal Medicine Hematology & Oncology
DX: C34.90 Malignant neoplasm of unspecified part of unspecified bronchus or lung (principal)
CPT/HCPCS: 96523; J1642

== ENCOUNTER 2024-08-15 07:45 | Day surgery (SDC) | payer MEDICARE, SELFPAY ==
[2024-08-11 12:04] VITALS: BMI 28.3
[2024-08-15 08:02] VITALS: BP 150/74; PULSE 72; RESP 16; TEMP 36.6; O2SAT 91
[2024-08-15] MEDS: TETRACAINE 0.5% OPTH SOL 15ML OP ×3 (08:07)
[2024-08-15] MEDS: CYCLOPENTOLATE 2% OPHTH SOLN 2ML BOTTLE OP ×3 (08:08→08:09)
[2024-08-15] MEDS: PHENYLEPHRINE 2.5% OPHTH SOLN 2ML OP ×3 (08:08)
[2024-08-15 09:23] VITALS: BP 153/70; PULSE 81; RESP 18; TEMP 36.6; O2SAT 93
[2024-08-15] MEDS: SODIUM CHLORIDE 0.9% 10ML FLUSH SYRINGE 10 ML IV ×2 (09:23→10:35)
[2024-08-15] MEDS: MIDAZOLAM 2MG/2ML VIAL 1 MG IV (09:23)
[2024-08-15 09:28] VITALS: BP 131/68; PULSE 82; RESP 18; TEMP 36.6; O2SAT 92
[2024-08-15 09:33] VITALS: BP 131/68; PULSE 83; RESP 18; TEMP 36.6; O2SAT 94
[2024-08-15] MEDS: TIMOLOL 0.5% OPTH SOLN 5ML OP (09:33)
[2024-08-15] MEDS: TOBRAMYCIN/DEX OPTH SUSP 2.5ML OP (09:33)
[2024-08-15] MEDS: LIDOCAINE 1% PF 2ML AMPULE 2 ML IJ (09:34)
[2024-08-15 09:38] VITALS: BP 134/72; PULSE 79; RESP 18; TEMP 36.6; O2SAT 95
[2024-08-15 09:43] VITALS: BP 130/71; PULSE 90; RESP 17; TEMP 36.6; O2SAT 92
--- NOTE | 2024-08-15 11:39 | HMH.PROCNOTE ---
[facility] Procedure Note Date: 08/15/24 Time: 11:39 Procedure Note:: Preoperative Diagnosis: Cataract combined NS Cortical Complex [Right] Eye Postop diagnosis: same Operation: Microscopic phacoemulsification with intraocular lens implant [Right] Eye Specimen: None Blood Loss: None The patient was examined in the office with a complaint of poor vision in the [right] eye. The patient reports that this interferes with ADLs such as reading, watching TV and/or driving or the vision is like looking through a foggy haze and is very troubling. The patient was examined and found to have a visually significant cataract with best corrected vision of [20/400] by refraction and/or glare testing. Treatment options, risks and benefits were explained and the patient elected to have cataract surgery in an attempt to improve their vision. The patient had the eye anesthetized with topical tetracaine, the eye ways prepped and draped in the usual fashion for cataract surgery. A paracentesis and a temporal keratotomy were made. 0.2cc of 1% lidocaine PF was placed into the anterior chamber. And aqueous/viscoelastic exchange was done and a 360 degree capsulorexis was performed. Through hydrodissection and delineation with BSS on a cannula was done. The lens nucleus was phecoemulsified with CDE of [6.28]. Residual cortical material was removed using automated I&A The capsular bag was deepened with viscoelastica and a PCIOL was placed in the capsular bag with good centration and stability. Residual viscoelastic was removed using automated I&A. The keratotomy incision was hydrated with BSS on a cannula. The wound were checked and found to be water tight. IOP was checked digitally and adjusted as needed so as not to be too high. 1 drop of timolol 0.5%, ofloxacin, prednisolone acetate and ketorolac was instilled and eye shield taped over the eye. The patient was taken to recovery in good condition and will be seen postoperatively.
== END 2024-08-15 09:50 | disposition home or self-care (01) ==
PROVIDERS: PCP Nurse Practitioner Family; Visit Provider Ophthalmology
PROC: (CPT 66984; principal; 2024-08-15 09:30)
DX: H25.011 Cortical age-related cataract, right eye (principal)
CPT/HCPCS: 66984; 96523; J1642; J2250; V2632

== ENCOUNTER 2024-08-29 07:04 | Day surgery (SDC) | payer MEDICARE, SELFPAY ==
[2024-08-23 11:08] VITALS: BMI 27.0
[2024-08-29] VITALS (7 sets, daily range): BP systolic 113–128; BP diastolic 63–72; PULSE 79–89; RESP 16–20; TEMP 36.3–36.5; O2SAT 94–98
[2024-08-29] MEDS: TETRACAINE 0.5% OPTH SOL 15ML OP ×3 (07:22→07:32)
[2024-08-29] MEDS: PHENYLEPHRINE 2.5% OPHTH SOLN 2ML OP ×3 (07:22→07:32)
[2024-08-29] MEDS: CYCLOPENTOLATE 2% OPHTH SOLN 2ML BOTTLE OP ×3 (07:22→07:32)
[2024-08-29 07:35] LABS: POC Glucose,Bedside 103 (70-110)
[2024-08-29] MEDS: MIDAZOLAM 2MG/2ML VIAL 2 MG (08:05)
[2024-08-29] MEDS: SODIUM CHLORIDE 0.9% 10ML FLUSH SYRINGE 10 ML IV (08:12)
[2024-08-29] MEDS: TOBRAMYCIN/DEX OPTH SUSP 2.5ML OP (08:12)
[2024-08-29] MEDS: LIDOCAINE 1% PF 2ML AMPULE 2 ML IJ (08:13)
--- NOTE | 2024-08-29 09:18 | HMH.PROCNOTE ---
[facility] Procedure Note Date: 08/29/24 Time: 09:18 Procedure Note:: Preoperative Diagnosis: Cataract combined NS Cortical Complex [Left] Eye Postop diagnosis: same Operation: Microscopic phacoemulsification with intraocular lens implant [Left] Eye Specimen: None Blood Loss: None The patient was examined in the office with a complaint of poor vision in the [left] eye. The patient reports that this interferes with ADLs such as reading, watching TV and/or driving or the vision is like looking through a foggy haze and is very troubling. The patient was examined and found to have a visually significant cataract with best corrected vision of [20/400] by refraction and/or glare testing. Treatment options, risks and benefits were explained and the patient elected to have cataract surgery in an attempt to improve their vision. The patient had the eye anesthetized with topical tetracaine, the eye ways prepped and draped in the usual fashion for cataract surgery. A paracentesis and a temporal keratotomy were made. 0.2cc of 1% lidocaine PF was placed into the anterior chamber. And aqueous/viscoelastic exchange was done and a 360 degree capsulorexis was performed. Through hydrodissection and delineation with BSS on a cannula was done. The lens nucleus was phecoemulsified with CDE of [6.94]. Residual cortical material was removed using automated I&A The capsular bag was deepened with viscoelastica and a PCIOL was placed in the capsular bag with good centration and stability. Residual viscoelastic was removed using automated I&A. The keratotomy incision was hydrated with BSS on a cannula. The wound were checked and found to be water tight. IOP was checked digitally and adjusted as needed so as not to be too high. 1 drop of timolol 0.5%, ofloxacin, prednisolone acetate and ketorolac was instilled and eye shield taped over the eye. The patient was taken to recovery in good condition and will be seen postoperatively.
== END 2024-08-29 08:35 | disposition home or self-care (01) ==
PROVIDERS: PCP Nurse Practitioner Family; Visit Provider Ophthalmology
PROC: (CPT 66984; principal; 2024-08-29 08:00)
DX: H25.012 Cortical age-related cataract, left eye (principal)
CPT/HCPCS: 66984; 82962; J2250; V2632

== ENCOUNTER 2025-04-02 13:49 | Outpatient (CLI) | payer MEDICARE, SELFPAY ==
--- NOTE | 2025-04-02 13:51 | MM_ITS ---
PROCEDURE INFORMATION: Exam: MG Bilateral Screening 3D Mammography Exam date and time: 04/02/2025 2:02 PM Age: 69 years old Clinical indication: Screening examination TECHNIQUE: Imaging protocol: Bilateral Screening tomosynthesis and 2D mammography including computer-aided detection (CAD) when performed. COMPARISON: 1. MG MM DIG SCREENING MAMM BI W/CAD 05/20/2022 12:47 PM 2. MG SCBI MM Dig screening mamm BI w/CAD 03/08/2018 10:01 AM FINDINGS: MAMMOGRAPHY: Breast composition: There are scattered areas of fibroglandular density. Mass: No suspicious masses. Architectural distortion: None. Calcifications: No suspicious calcifications. Asymmetric density: None. Skin thickening: None. Axillary adenopathy: None. IMPRESSION: No mammographic evidence of malignancy. Annual screening is recommended unless otherwise clinically indicated. ASSESSMENT: BI-RADS Category 1: Negative.
--- OUTSIDE RECORDS SUMMARY | 2025-04-02 13:58 | XMS_ITS | Encounter Summary ---
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 Name Role Phone Jordy Akers MD Primary Care Provider [phone] Encounter Details Date Type Department Care Team (Late st Contact Info) Description 12/17/2020 Telephone [facility] [address] [place] [id number] Tonya Garcia RegSched Rep Social History Tobacco Use Types Packs/Day Years Used Date Smoking Tobacco: Former Cigarettes Smokeless Tobacco: Never Comments Unknown Sex and Gender Information Value Date Recorded Sex Assigned at Not on file Legal Sex Female 1:19 PM EDT Gender Identity Not on file Sexual Orientation Not on file documented as of this encounter Plan of Treatment Not on file documented as of this encounter Visit Diagnoses Not on filedocumented in this encounter Care Teams Portable Grinding Machine Operator Relationship Specialty Start Date End Date Jordy Akers MD [address] [place] [id number] PCP - General Internal Medicine 08/07/20 documented as of this encounter
--- OUTSIDE RECORDS SUMMARY | 2025-04-02 13:58 | XMS_ITS | Data Portability ---
Author Organization SHAI PATRIC [facility] Address [address] [place] [address] Care Team Providers Care Food Demonstrator Name Role Phone CARLITOS SOTO Primary Care Provider [phone] Assessment Encounter Date Assessment Date Assessment LastModified by Organization Details LastModified Time 12/16/2020 12/16/2020 Mrs. Yeh is a 65-year-old female with metastatic lung cancer. Her MRI brain with and without today looks stable. In fact the radiology report describes no findings, and I agree with this finding. I plan to see her back in 3-4 months with repeat x-rays of the brain with and without contrast. That will be performed at [facility]. I'm going to prescribe her some Fioricet for headaches, as she states it worked in the past. Not available 12/16/2020 15:12:15 03/31/2021 03/31/2021 65-year-old female with history of metastatic lung cancer treated area the left cerebellar vermis with CyberKnife and ongoing low back pain status post a L5-S1 fusion here for follow-up. Brain MRI reviewed with Dr. Mendez, there is no areas of abnormal enhancement. This is stable compared to previous exam. Lumbar MRI reviewed with Dr. Mendez shows postoperative changes from an L5-S1 fusion. There is no development of adjacent level stenosis, neural impingement, Malalignment,fra cture or abnormal enhancement. This time Dr. Aquino to recommending any surgical intervention for her low back pain. We do think his Percocet that we order a lumbar CT scan to rule out pseudoarthrosis. Should there be done in the distant pseudoarthrosis, we would recommend continuing to follow up with Dr. Mckinley for any needed and recommended interventions. I'll have patient follow-up in 6 months with another brain MRI with and without contrast for routine surveillance. pt seen by myself and dr jie miner Not available 03/31/2021 15:55:12 09/29/2021 09/29/2021 Mrs. Yeh is a 65-year-old female status post CyberKnife radio surgery to a small metastatic lesion at the midline near her vermis. I have reviewed her noncontrasted MRI and I have a low suspicion for any progression or new lesions. Specifically, on the FLAIR imaging there is no new signal change to suggest new lesions. The plan is to reimage her again in April with an MRI of the brain with and without contrast. She understands call us sooner if anything changes. We discussed her low back again. I'm comfortable with what ever Dr. Mckinley thinks can improve her quality of life. Not available 09/29/2021 15:58:25 Plan of Treatment Reminders Order Date Submit Date Provider Last Modified By Organization Details Last Modified Time Details Appointments None record ed. Lab None record ed. Referral None record ed. Procedures None record ed. Surgeries None record ed. Imaging None record ed. Medication Orders None record ed. Patient TargetsNo targets recorded. Patient Instructions Encounter Date Encounter Id Patient Instructions Last Modified By Organization Details Last Modified Time 09/05/2020 [id number] back care and preventing injuries: care instructions [email or web address] Not available 09/05/2020 12:44:19 getting back to normal after low back pain: care instructions remaons Not available 09/05/2020 12:44:20 learning about relief for back pain [email or web address] Not available 09/05/2020 12:44:20 Reason for Referral None Reported. Results Created Date Observation Date Name Description Value Unit Range Abnormal Flag Note LastModifiedBy Organization Detail LastModifiedTime 09/04/1909/03/2020 creat inine , serum or plasm a creatinine 0.96 mg/dL 0.50-0 .90 high Not Available [facility] [address], [place], [address], 09/03/2020 15:34:05 09/30/19 22 09/29/2021 CREAT ININE creatinine 1.56 mg/dL 0.50-0 .95 high Not Available [facility] [address] [facility], [place], [address], 09/29/2021 13:12:28 08/13/19 21 08/10/2020 MRI, brain , w/wo contr ast No observ ation record ed. [email or web address] [facility] [address] , [place], [address], 08/16/2020 11:24:09 09/04/19 21 09/03/2020 MRI, lumba r spine , w/wo contr ast [facility] [address] [place] [address] Edouard kruger Name: ALEJANDRINA kruger : [address] Orderi ng Provid er: MIGUEL MENDEZ EXAM DATE: 2020 EXAM: MR LUMBAR SPINE W/WO CONTRA ST HISTOR Y: 64-yea r-old female with low back pain. The patien t has had prior lumbar surger y. COMPAR PARRIS: Radiog raph of the same date The patien t did not requir e sedati on for this exam. FINDIN GS: The patien t is status post discec rajni, interb trung graft and nurse midwife/clinical instructor ior fusion at L5-S1. There is parama gnetic artifa ct from the pedicl e screws and nurse midwife/clinical instructor ior fusion hardwa re. There is grade 1 anteri or listhe sis of L5 on S1. There is no fractu re. There is mild anteri or margin al osteop hytic spurri ng. No pathol ogic lesion is identi fied in the lumbar spine. The conus medull luiz is normal in appear ance at the L1 level. T11-T1 2 and T12-L1 : These interv ertebr al discs are essent ially normal in appear ance. L1-L2: There is a minima l disc bulge. There is no centra l canal stenos is. There is no neural forami nal stenos is. L2-L3: There is a broad- based disc bulge/ protru ashlee with promin ence in the right neural forame n, mild endpla te spurri ng and mild facet arthro wiley. There is no centra l canal stenos is. There is mild bilate ral neural forami nal stenos is. L3-L4: There is a broad- based disc bulge/ protru ashlee, mild endpla te spurri ng and mild facet arthro wiley. There is no centra l canal stenos is. There is modera te bilate ral neural forami nal stenos is. L4-L5: There is a broad- based disc bulge, mild endpla te spurri ng and mild facet arthro wiley. There is no centra l canal stenos is. There is mild/m oderat e bilate ral neural forami nal stenos is. L5-S1: There is prior fusion at this level. There is soft tissue promin ence along the disc space and endpla te spurri ng. There is no centra l canal stenos is. There is severe bilate ral neural forami nal stenos is. After intrav enous admini strati on of 7.[address] ([facility] [id number] 1), there is no abnorm al enhanc ement in the lumbar spine. The parasp inous muscul ature is symmet jacob and mildly atroph ic. IMPRES ASHLEE: 1. The patien t is status post PLIF at L5-S1. There is severe bilate ral neural forami nal narrow ing at this level. 2. There is mild to modera te neural forami nal narrow ing from L2-L3 throug h L4-L5. Interp reted By: Anton funes MD Electr onical ly Signed By: Anton funes MD on 021 4:16 PM [facility] [address], [address], 09/05/2020 09:14:39 09/05/19 21 09/03/2020 XR, lumbo sacra l spine , 2 or [address] [address] Edouard kruger Name: ALEJANDRINA kruger : [address] k[address]ger 35 Orderi ng Provid er: MIGUEL MENDEZ EXAM DATE: 2020 EXAM: XR LUMBAR AP/LAT CLINIC AL INFORM ATION: Postop erativ e. IMAGES PROVID ED: AP, latera l, and coned- down views of the lumbar spine. COMPAR PARRIS: None. FINDIN GS AND IMPRES ASHLEE: Spinal fusion is noted at L5-S1 level with pedicu lar screws and connec ting rods. Surgic al hardwa re is satisf actori ly placed . No eviden ce of loosen ing or infect ion is seen. Tiny osteop hytes are seen at other levels . Interp reted By: Demetrio Lee MD Electr onical ly Signed By: Dmeetrio Lee MD on 021 9:35 AM [facility] [address], [address], 09/18/2020 15:44:42 12/17/19 21 12/16/2020 XR, lumbo sacra l spine , 2 or [address] [place] [address] Edouard kruger Name: ALEJANDRINA kruger : [address] k[address] 35 Orderi ng Provid er: MIGUEL Fox JIE EXAM DATE: 2020 EXAM: XR LUMBAR AP/LAT CLINIC AL INFORM ATION: Postop erativ e. IMAGES PROVID ED: AP, latera l, and coned- down views of the lumbar spine. COMPAR PARRSI: None. FINDIN GS AND IMPRES ASHLEE: Spinal fusion is noted at L5-S1 level with pedicu lar screws and connec ting rods. Surgic al hardwa re is satisf actori ly placed . No eviden ce of loosen ing or infect ion is seen. Other levels are normal . Interp reted By: Demetrio Lee MD Electr onical ly Signed By: Demetrio Lee MD on 7/26/2 021 3:00 PM [email or web address] [facility] [address] [facility], [place], [address], 12/30/2020 09:33:48 03/31/20 21 03/31/2021 MRI, brain , w/wo contr ast No observ ation record ed. [email or web address] Neurosurgery [facility] [address], [place], [address], 04/18/2021 09:31:41 04/01/20 21 03/04/2021 MRI, lumba r spine , w/o contr ast No observ ation record ed. BARCODE Not Available 2020 08:50:14 04/02/20 21 04/02/2021 CT, lumba r spine , w/o contr ast No observ ation record ed. [email or web address] [facility] Central Scheduling [address] [facility] [address] [facility] , [place], [address], 04/07/2021 06:29:09 09/30/19 22 09/29/2021 MRI, brain , w/o contr ast [facility] [address] [place] [address] Edouard slick Name: ALEJANDRINA kruger : [address] Orderi ng Provid er: FLORENCE Bobo EXAM DATE: 2021 EXAM: MR BRAIN W/O CONTRA ST HISTOR Y: 65-yea r-old female with possib le metast atic diseas e. COMPAR PARRIS: None. FINDIN GS: The ventri cles are symmet jacob, and mildly enlarg ed. There is no mass, mass effect , or midlin e shift. There is no abnorm al extra- axial fluid, intrac ranial hemorr sara, or infarc tion. The diffus ion weight ed sequen ishan are normal . There are modera te perive ntricu lar white matter change s. There are multip le perive ntricu lar white matter lesion s. The international account manager al caroti d and basila r flow-v oids are normal . There is modera te modera te mucosa l thicke olamide in the parana sylvain sinuse s. There is fluid throug hout the mastoi d air cells which is more promin ent on the right. IMPRES ASHLEE: 1. No mass is identi fied in the brain. 2. There is mild diffus e cerebr al atroph y and extens susan white matter change s in the brain. 3. There is fluid in the mastoi d air cells which is more severe on the right. 4. Intrav enous contra st was withhe ld becaus e of the patien t's renal functi on. Interp reted By: Anton funes MD Electr onical ly Signed By: Anton funes MD on 09/30/19 22 1:34 PM [email or web address] [facility] [address], [address], 10/06/2021 10:27:22 Result Notes Documentation Provider Name and Address Organization Details Recorded Time Mri, Lumbar Spine, W/wo Contrast : [address] [address] Patient Name: ALEJANDRINA YEH Patient : 1955 Patient Ordering Provider: HEIDY MENDEZ EXAM DATE: 09/03/2020 EXAM: MR LUMBAR SPINE W/WO CONTRAST HISTORY: 64-year-old female with low back pain. The patient has had prior lumbar surgery. COMPARISON: Radiograph of the same date The patient did not require sedation for this exam. FINDINGS: The patient is status post discectomy, interbody graft and posterior fusion at L5-S1. There is paramagnetic artifact from the pedicle screws and posterior fusion hardware. There is grade 1 anterior listhesis of L5 on S1. There is no fracture. There is mild anterior marginal osteophytic spurring. No pathologic lesion is identified in the lumbar spine. The conus medullaris is normal in appearance at the L1 level. T11-T12 and T12-L1: These intervertebral discs are essentially normal in appearance. L1-L2: There is a minimal disc bulge. There is no central canal stenosis. There is no neural foraminal stenosis. L2-L3: There is a broad-based disc bulge/protrusion with prominence in the right neural foramen, mild endplate spurring and mild facet arthropathy. There is no central canal stenosis. There is mild bilateral neural foraminal stenosis. L3-L4: There is a broad-based disc bulge/protrusion, mild endplate spurring and mild facet arthropathy. There is no central canal stenosis. There is moderate bilateral neural foraminal stenosis. L4-L5: There is a broad-based disc bulge, mild endplate spurring and mild facet arthropathy. There is no central canal stenosis. There is mild/moderate bilateral neural foraminal stenosis. L5-S1: There is prior fusion at this level. There is soft tissue prominence along the disc space and endplate spurring. There is no central canal stenosis. There is severe bilateral neural foraminal stenosis. After intravenous administration of 7.5 mL Gadavist ([facility] [address]-44), there is no abnormal enhancement in the lumbar spine. The paraspinous musculature is symmetric and mildly atrophic. IMPRESSION: 1. The patient is status post PLIF at L5-S1. There is severe bilateral neural foraminal narrowing at this level. 2. There is mild to moderate neural foraminal narrowing from L2-L3 through L4-L5. Interpreted By: Darryl Haley MD ENCE SHEPHERD PA-C [address] [place] [address], [address], [facility] 09/05/2020 09:14:39 Xr, Lumbosacral Spine, 2 Or 3 View : [place] [address] Patient Name: ALEJANDRINA YEH Patient : 1955 Patient Ordering Provider: HEIDY MENDEZ EXAM DATE: 09/03/2020 EXAM: XR LUMBAR AP/LAT CLINICAL INFORMATION: Postoperative. IMAGES PROVIDED: AP, lateral, and coned-down views of the lumbar spine. COMPARISON: None. FINDINGS AND IMPRESSION: Spinal fusion is noted at L5-S1 level with pedicular screws and connecting rods. Surgical hardware is satisfactorily placed. No evidence of loosening or infection is seen. Tiny osteophytes are seen at other levels. Interpreted By: Pedro Pablo Lee MD Brooke Alexander [facility] 09/18/2020 15:44:42 Xr, Lumbosacral Spine, 2 Or 3 View : [place] [address] Patient Name: ALEJANDRINA YEH Patient : 1955 Patient Ordering Provider: HEIDY MENDEZ EXAM DATE: 12/16/2020 EXAM: XR LUMBAR AP/LAT CLINICAL INFORMATION: Postoperative. IMAGES PROVIDED: AP, lateral, and coned-down views of the lumbar spine. COMPARISON: None. FINDINGS AND IMPRESSION: Spinal fusion is noted at L5-S1 level with pedicular screws and connecting rods. Surgical hardware is satisfactorily placed. No evidence of loosening or infection is seen. Other levels are normal. Interpreted By: Pedro Pablo Lee MD Jin Mccullough [facility] 12/30/2020 09:33:49 Mri, Brain, W/o Contrast : [place] [address] Patient Name: ALEJANDRINA YEH Patient : 1955 Patient Ordering Provider: FLORENCE SHEPHERD EXAM DATE: 09/29/2021 EXAM: MR BRAIN W/O CONTRAST HISTORY: 65-year-old female with possible metastatic disease. COMPARISON: None. FINDINGS: The ventricles are symmetric, and mildly enlarged. There is no mass, mass effect, or midline shift. There is no abnormal extra-axial fluid, intracranial hemorrhage, or infarction. The diffusion weighted sequences are normal. There are moderate periventricular white matter changes. There are multiple periventricular white matter lesions. The internal carotid and basilar flow-voids are normal. There is moderate moderate mucosal thickening in the paranasal sinuses. There is fluid throughout the mastoid air cells which is more prominent on the right. IMPRESSION: 1. No mass is identified in the brain. 2. There is mild diffuse cerebral atrophy and extensive white matter changes in the brain. 3. There is fluid in the mastoid air cells which is more severe on the right. 4. Intravenous contrast was withheld because of the patient's renal function. Interpreted By: Darryl Haley MD ENCE SHEPHERD PA-C [address] [place], [address], [facility] 10/06/2021 10:27:22 Problems Name Problem SNOMED Code Status Onset Date Resolution Date Notes Provider Name and Address Organization Details Recorded Time Metastatic malignant neoplasm to brain 19934028 Active 2020 FLORENCE SHEPHERD PA-C [address] [place], [address], [facility] 15:50:19 History of lumbar fusion 9842447929919 6 Active 2020 FLORENCE SHEPHERD PA-C [address] [place], [address], [facility] 14:57:58 Low back pain 155423545 Active 2020 FLORENCE SHEPHERD PA-C [address] [place], [address], [facility] 15:53:08 Problem Notes None recorded. Procedures Surgical History Date Name Laterality Status Provider Name and Address Organization Details Recorded Time 05/22/20 20 TRANSFORAMINAL INTERBODY LUMBAR FUSION, LEVEL SPECIFIED, WITH HARDWARE (SURG) completed Alexsandra Hernandez [facility] 05/23/2020 13:55:55 03/28/20 20 ADRENALECTOMY, LAPAROSCOPIC (SURG) completed Raymond Ellison [facility] 03/29/2020 14:24:58 Angioplasty completed [facility] 03/21/2020 09:50:08 colonoscopy completed Lidia Stallworth [facility] 03/21/2020 09:50:16 lobectomy of lung completed Lidiagail Stallworth [facility] 03/21/2020 09:50:25 Imaging Results None recorded. Procedure Notes None recorded. Medical Equipment None Reported. Allergies Allergen ID Allergen Name Allergen Category Reaction Reaction Severity Criticality Documentation Date Start Date Code Code System Note Provider Name and Address Organization Details Recorded Time 376680 Levaquin medicatio n Not available Not available Not available 03/06/2020 17326 2 RxNorm Renée Sanz [facility] 0 16:11:48 849364 Corgard medicatio n Not available Not available Not available 03/06/2020 25715 9 RxNorm Renée Sanz [facility] 0 16:11:55 147672 diltiazem Not available Not available Not available Not available 03/06/2020 3443 RxNorm Renée Sanz [facility] 0 16:12:06 113619 Anoro medicatio n Not available Not available Not available 03/06/2020 21942 20 RxNorm Renée Sanz [facility] 0 16:12:13 820529 Stiolto medicatio n Not available Not available Not available 03/06/2020 69639 67 RxNorm Renée Sanz [facility] 0 16:12:23 360820 Roxicet medicatio n Not available Not available Not available 03/06/2020 45534 9 RxNorm Renée Sanz [facility] 0 16:12:35 Medications Name Sig Start Date Stop Date Status Note LastModified by Organization Details LastModified Time cyclobenzapr ine 10 mg tablet Take 1 tablet 3 times a day by oral route as needed. active Not Available Not Available No t Available amoxicillin 500 mg capsule active Not Available Not Available Not Available fluconazole 100 mg tablet active Not Available Not Available Not Available atorvastatin 40 mg tablet Take 1 tablet every day by oral route. active Not Available Not Available No t Available metformin 500 mg tablet active Not Available Not Available Not Available promethazine -DM 6.25 mg-15 mg/5 mL oral syrup active Not Available Not Available Not Available fluticasone 250 mcg-salmeter ol 50 mcg/dose blistr powdr for inhalation Inhale 1 puff twice a day by inhalation route. active Not Available Not Available No t Available prednisone 10 mg tablet active Not Available Not Available Not Available ipratropium 0.5 mg-albuterol 3 mg (2.5 mg base)/3 mL nebulization soln active Not Available Not Available Not Available aspirin 325 mg tablet Take 1 tablet every day by oral route. active Not Available Not Available No t Available tizanidine 4 mg tablet active Not Available Not Available No t Available fluconazole 150 mg tablet active Not Available Not Available Not Available hydrocodone 5 mg-acetamino phen 325 mg tablet active Not Available Not Available Not Available ondansetron HCl 8 mg tablet active Not Available Not Available Not Available fluconazole 200 mg tablet TAKE ONE TABLET BY MOUTH ONCE DAILY active Not Available Not Available No t Available meloxicam 15 mg tablet active Not Available Not Available No t Available promethazine 12.5 mg tablet active Not Available Not Available Not Available prednisone 5 mg tablet take ONE-HALF tablet BY MOUTH DAILY active Not Available Not Available Not Available clindamycin HCl 150 mg capsule active Not Available Not Available Not Available Accu-Chek Softclix Lancets active Not Available Not Available Not Available sulfamethoxa zole 800 mg-trimethop rim 160 mg tablet TAKE ONE TABLET BY MOUTH TWICE DAILY BEGIN 11/12 active Not Available Not Available No t Available hydrocodone 10 mg-acetamino phen 325 mg tablet Take 1 tablet every 4 hours by oral route as needed. active Not Available Not Available N ot Available tramadol 50 mg tablet TAKE ONE TABLET BY MOUTH EVERY FOUR hours NEEDED FOR pain active Not Available Not Available No t Available butalbital-a cetaminophen -caffeine 50 mg-325 mg-40 mg tablet active Not Available Not Available No t Available ondansetron 8 mg disintegrati ng tablet Dissolve one tablet in mouth three times daily as needed for nausea active Not Available Not Available No t Available lidocaine-pr ilocaine 2.5 %-2.5 % topical cream active Not Available Not Available Not Available oxycodone-ac etaminophen 5 mg-325 mg tablet active Not Available Not Available Not Available alprazolam 0.5 mg tablet active Not Available Not Available Not Available alprazolam 0.25 mg tablet Take 1 tablet 3 times a day by oral route. active Not Available Not Available No t Available hydrocodone 7.5 mg-acetamino phen 325 mg tablet Take 1 tablet every 6 hours by oral route as needed. active Not Available Not Available N ot Available promethazine 25 mg tablet TAKE ONE TABLET BY MOUTH EVERY 4 HOURS NEEDED FOR NAUSEA AND VOMITING active Not Available Not Available No t Available nicotine 21 mg/24 hr daily transdermal patch active Not Available Not Available Not Available gabapentin 300 mg capsule Take 1 capsule 3 times a day by oral route. active Not Available Not Available No t Available omeprazole 20 mg capsule,luanne yed release Take 1 capsule every day by oral route. active Not Available Not Available No t Available lisinopril 20 mg-hydrochlo rothiazide 25 mg tablet Take 1 tablet every day by oral route. active Not Available Not Available No t Available diclofenac sodium 75 mg tablet,delay ed release Take 1 tablet twice a day by oral route as needed. active Not Available Not Available No t Available folic acid 1 mg tablet TAKE ONE TABLET BY MOUTH DAILY active Not Available Not Available Not Available methylpredni solone 4 mg tablets in a dose pack Take 1 dose pk by oral route as directed. active Not Available Not Available No t Available albuterol sulfate HFA 90 mcg/actuatio n aerosol inhaler active Not Available Not Available Not Available fluticasone propionate 50 mcg/actuatio n nasal spray,suspen ashlee [place] 1 spray every day by intranasal route. active Not Available Not Available No t Available amoxicillin 875 mg-potassium clavulanate 125 mg tablet active Not Available Not Available Not Available albuterol sulfate active Not Available Not Available Not Available Fioricet 50 mg-300 mg-40 mg capsule Take 1 capsule every 6 hours by oral route as needed for 30 days. 2021 active Not Available Not Available Not Avai lable Accu-Chek Guide test strips active Not Available Not Available Not Available Shingrix (PF) 50 mcg/0.5 mL intramuscula r suspension, kit active Not Available Not Available Not Available Afluria Qd 2019- (36 mos up)(PF)60 mcg (15 mcg x4)/0.5 mL IM syringe active Not Available Not Available N ot Available Vitals Date Recorded Body height Systolic And Diastolic Provider Name and Address Organization Details Last Updated DateTime 09/05/2020 157.48 cm 130/80 mm[Hg] [facility] 09/05/2020 12:08:51 Date Recorded Body height Systolic And Diastolic Provider Name and Address Organization Details Last Updated DateTime 09/29/2021 157.48 cm 130/82 mm[Hg] [facility] 09/29/2021 15:34:06 Date Recorded Body height Systolic And Diastolic Provider Name and Address Organization Details Last Updated DateTime 12/16/2020 157.48 cm 128/82 mm[Hg] Lidia Stallworth [facility] 12/16/2020 14:46:13 Date Recorded Body height Heart rate Systolic And Diastolic Provider Name and Address Organization Details Last Updated DateTime 03/31/2021 157.48 cm 106 /min 126/65 mm[Hg] Hazel Alexander [facility] 03/31/2021 14:27:34 Social History Question Answer Notes LastModified by Organizat ion Details LastModified Time Tobacco Smoking Status [facility]06/2020 16:19:52 How Much Tobacco Do You Chew? None Information not available 03/06/2020 Marital Status [email or web address] Informatio n not available 03/06/2020 Sex: Unknown Functional Status Question Answer Note LastModified by Organization D etails LastModified Time What is your level of alcohol consumption? None Information not available 03/06/2020 What is your occupation? retired Information not available 03/06/2020 Mental Status None recorded. Family History Relationship Description Onset Age of this Age Resolved Age Notes LastModified by Organization Details LastModified Time Mother Family history of malignant neoplasm Not available 2019 16:19:12 Brother Family history of malignant neoplasm [email or web address] Not available 2019 16:19:18 Unspecified Relation Hypertensive disorder [email or web address] Not available 03/21 09:49:42 Unspecified Relation Myocardial infarction [email or web address] Not available 02/22 09:49:48 Unspecified Relation Aneurysm [email or web address] Not available 03/21 09:49:55 Medical History Condition Response Diabetes Y Allergies/Hayfever Y Arthritis Y Chronic Obstructive Pulmonary Disease Y Sleep Apnea Y High Cholesterol Y Acid Reflux (GERD) Y Heart Attack (AK) Y Hypertension Y Asthma Y Gynecological HistoryNo gynecological history recorded. Obstetrics History GPAL:G 0 P 0 0 0 0 Past Encounters Encounter ID Performer Location Encounter Start Date Encounter Closed Date Diagnosis/Indication Diagnosis SNOMED-CT Code Diagnosis ICD10 Code Diagnosis IMO Codes Diagnosis Note [id number] DARRYL ROMANO MD [facility] [address] [place] [address] 03/06/2020 15:15:36 03/08/2020 13:17:24 Urinary tract infectious disease 18010929 N39.0 Mass of le ft adrenal gland [id number] 1021116 E27.8 we will arrange for robotic-as sisted laparoscop ic left adrenalect radha [facility] [id number] HEIDY MENDEZ MD [facility] [address] [place] [address] 03/21/2020 09:17:13 03/27/2020 09:36:37 Lumbar spondylolisthesis [id number] 73752 M43.16 Time spent reviewing images, discussing the diagnosis and coordinati ng care: 30min [id number] DARRYL ROMANO MD [facility] [address] [place] [address] 04/15/2020 14:04:04 04/15/2020 14:59:43 Mass of left adrenal gland [id number] 1625313 E27.8 Doing well status post left adrenalect radha follow-up 3 months [id number] HEIDY MENDEZ MD SURGERY SCHEDULE [address] [place] [address] 05/23/2020 12:52:13 05/23/2020 16:16:39 [id number] FLORENCE SHEPHERD PA-C [facility] [address] [place] [address] 06/10/2020 10:51:38 06/11/2020 11:24:06 [id number] HEIDY MENDEZ MD [facility] [address] [place] [address] 06/24/2020 10:33:39 06/24/2020 15:08:06 Postoperative care [id number] Z48.89 [id number] FLORENCE SHEPHERD PA-C [facility] [address] [place] [address] 08/05/2020 15:41:00 08/06/2020 14:38:56 Metastatic malignant neoplasm to brain [id number] C79.31 64-year-ol d female with history of lung cancer followed by Dr. Bergman who is also status post a L5-S1 decompress ion and fusion by Dr. Mendez April 2020 with no relief found cerebellar lesion. Rate and MRI reviewed with Dr. Mendez there is a 6 mm lesion in the left superior cerebellar vermis. There is small amount of surroundin g edema. There is no significan t mass effect. Dr. Mendez is not recommendi ng resection of this lesion given its size and location. We are recommendi ng CyberKnife treatment. We will make a referral for this to be arranged as soon as possible. We will also place the order for a brain MRI for CyberKnife protocol to be performed at [facility]. Right now we will focus our energy on her newly found brain lesion and will further discuss her lower back issues at her scheduled follow-up. The patient is happy with this plan. pt seen by myself and dr mendez who agrees with above [id number] FLORENCE SHEPHERD PA-C [facility] [address] [place] [address] 09/05/2020 10:45:23 09/06/2020 16:14:15 Low back pain [id number] M54.5 64-year-ol d female with history of metastatic lung cancer and L5-S1 minimally invasive TLIF performed May [address] mendez. MRI and x-rays reviewed show stable placement of the hardware without evidence of loosening. There does not appear to be any evidence of metastatic disease, acute fracture or acute neural impingemen t on the MRI. Dr. Mendez is not recommendi ng any surgery. Overall her imaging is stable. Suspect that her ongoing lower back pain is due to the chronic degenerati ve changes that are seen. We will prescribe diclofenac and Flexeril. We will also provide a prescripti on for a topical compounded pain gel. We'll provide a prescripti on for a transport wheelchair as this significan tly helps the patient navigate her multiple doctors appointmen ts given her significan t comorbidit ies. She does have a scheduled appointmen t in November for follow-up of her CyberKnife treatment. We will have her get lumbar x-rays at that appointmen t in November. Recommende d that she tried to mobilize as best she can. If she is still having significan t issues despite these medication s and self-guide d exercise we will refer her to physical therapy and also pain management for evaluation of facet injections . pt was seen by myself and dr mendez [id number] HEIDY MENDEZ MD SURGERY SCHEDULE [address] [place] [address] 09/13/2020 10:57:16 09/13/2020 11:36:41 [id number] HEIDY MENDEZ MD [facility] [address] [place] [address] 12/16/2020 14:14:03 12/17/2020 08:41:20 Metastatic malignant neoplasm to brain [id number] C79.31 [id number] FLORENCE SHEPHERD PA-C [facility] [address] [place] [address] 03/31/2021 14:15:35 04/01/2021 08:35:28 Metastatic malignant neoplasm to brain 20847405 C79.31 Low back pain 917954330 M54.50 History of lumbar fusion [id number] 9106 Z98.1 [id number] HEIDY MENDEZ MD [facility] [address] [place] [address] 09/29/2021 14:44:59 10/05/2021 09:02:44 Metastatic malignant neoplasm to brain 70614823 C79.31 Time spent reviewing images, discussing the diagnosis and coordinati ng care: 20min Health Concerns Section Related Observation LastModified by Organization Detai ls LastModified Time None Recorded Concern Status LastModified by Organization Details LastModified Time None Recorded Advance Directives Directive None Recorded Payers Insurance Date Sequence Insurance Name Policy Number Policy Brown Covered Member ID Brown Member ID Guarantor Name 12/16/2020 1 [place] [id number] Alejandrina Yeh [id number] Alejandrina Yeh 2022 1 [employer] (MEDICARE REPLACEMENT/A DVANTAGE - PPO) Alejandrina Yeh [id number] Alejandrina Yeh Notes Date Note Type Note Provider Name and Address Organization Details Recorded Time 09/05/2020 text/html ROS as noted in the HPI 64-year-old female with history of non-small cell lung cancer with a left superior cervical vermis lesion recently treated with CyberKnife also a minimally invasive L5-S1 T LIF on 05/22/[address] Monsalve here for postoperative follow-up of her lumbar surgery. Patient states that she's been having worsening lower back pain that radiates belt line. She feels that this is similar to her low back pain that she has dealt with for over 30 years. Her preoperative leg pain is significantly better. She had an MRI of the lumbar spine a few days ago. She had x-rays performed as well. She states that she's having significant difficulty walking and needs the use of a Transport wheelchair When going to her multiple appointments. The patient is currently taking Kaytruda. FLORENCE SHEPHERD PA-C [address] [place] [address], [phone], [facility] 09/05/2020 12:44:32 12/16/2020 text/html ROS as noted in the HPI Mrs. Yeh is a 65-year-old female status post CyberKnife radiosurgery to the superior aspect of the left vermis, I suspected metastatic lesion to the brain as she has a history of lung cancer. She continues to have significant back pain, despite an L5-S1 fusion. She also complains of headaches since being started on Keytruda. She denies any new neurologic symptoms. She presents today for 3 month follow-up with an MRI of the brain with and without contrast. The MRI was performed at [facility] on December 08, ordered by Dr. Neptali Bergman. HEIDY MENDEZ MD [address] [place] [address], [phone], [facility] 12/16/2020 16:04:40 03/31/2021 text/html ROS as noted in the HPI 65-year-old female with history of metastatic lung cancer With known metastasis to the left cerebellum status post CyberKnife, followed by Dr. Bergman, L5/S1 MIS tibial IF May 22, [address] Mendez Here for imaging follow-up. The patient is here for a 3 month routine follow-up brain MRI for surveillance. The patient states that she is still currently undergoing chemotherapy and radiation. She has a PET scan scheduled for tomorrow. She's also had ongoing lower back pain that has been persistent since her fusion last year. Patient denies having any ongoing headaches, vision issues, speech difficulties or weakness. She states that her preoperative leg symptoms from her lumbar surgery seemed to have resolved, however she still has significant lower back pain. She is unable to walk long distances without the help of a walker or wheelchair. She is able to walk short distances with a walker. I denies any numbness tingling lower me pain. Pain in low back is in the lower lumbar spine, it radiates L line. Pain can be quite severe at times. It is better if she sits down. She brings with her a updated lumbar [facility]. She is followed by Dr. mckinley. She has had 2 injections one was an epidural, the second she is unclear of that describes it as a series of 4 injections. She states that she has not had an injection in her facet joint to yet. She states that she has an appointment to have this performed. They had also discussed about a placement of a intrathecal pain pump, which she is less interested in. FLORENCE SHEPHERD PA-C [address] [place] [address], [phone], [facility] 03/31/2021 15:55:21 09/29/2021 text/html ROS as noted in the HPI Mrs. Yeh is a 65-year-old female that underwent a minimally invasive L5-S1 fusion by myself and later had a small lung cancer metastasis to the brain CyberKnife by myself. Unfortunately, she responded poorly to the lumbar surgery. We've worked this up a couple times without any obvious issues on multiple repeat lumbar MRIs. She is seen Dr. Mckinley with pain management, who has been quite helpful.She presents today with an updated MRI of the brain ordered with and without contrast. Unfortunately, they were unable to give her contrast due to her creatinine level this morning. She denies any new symptoms. HEIDY MENDEZ [place] [facility] [place], [phone], [facility] 09/29/2021 15:59:44 OBGyn Episode No OBEpisode recorded.
--- OUTSIDE RECORDS SUMMARY | 2025-04-02 13:58 | XMS_ITS | Clinical Summary ---
Author Organization [facility] Address [address] [place] [address] Care Team Providers Care Terrazzo Mechanic Helper Name Role Phone Jordy Akers MD Primary Care Provider [phone] Allergies Active Allergy Reactions Criticality Noted Date Comments Diltiazem Unknown - High Severity 08/07/2020 Levofloxacin GI Intolerance 08/07/2020 Nadolol Unknown - High Severity 08/07/2020 Sulfa Antibiotics Unknown - High Severity 08/07 Tiotropium Kasbeer-Olodaterol Unknown - High Severity 08/07/2020 Umeclidinium-Vilanterol Unknown - High Severity 08/07/2020 Medications lisinopril-hydr ochlorothiazide (PRINZIDE,ZESTO RETIC) 10-12.5 MG per tablet Take 1 tablet by mouth Daily. Active omeprazole (priLOSEC) 20 MG capsule Take 20 mg by mouth Daily. Active aspirin (ASPIR) 81 MG EC tablet Take 81 mg by mouth Daily. Active atorvastatin (LIPITOR) 10 MG tablet Take 10 mg by mouth Daily. Active fluticasone-sylvain meterol (ADVAIR) 100-50 MCG/DOSE DISKUS Inhale 2 (Two) Times a Day. Active fluticasone (VERAMYST) 27.5 MCG/SPRAY nasal spray 2 sprays into the nostril(s) as directed by provider Daily. Active ALPRAZolam (XANAX) 0.25 MG tablet Take 0.25 mg by mouth 2 (Two) Times a Day As Needed for Anxiety. Active Active Problems Problem Noted Date Diagnosed Date Brain metastasis 08/07/2020 Overview (08/24/2022): 08/22/2022 DX Regulatory Update Lung cancer 08/07/2020 Family History Medical History Relation Name Comments Melanoma Brother Heart attack Father Lung cancer Mother Relation Name Status Comments Brother Father Mother Social History Tobacco Use Types Packs/Day Years Used Date Smoking Tobacco: Former Cigarettes Smokeless Tobacco: Never Abuse Screen Answer Date Recorded Unsafe at Home or Work/School Not on file Feels Threatened by Someone? Not on file 01/2023 Does Anyone Keep You from Co ntacting Others or Doint Things Outside the Home? Not on file 03/01/2023 Physical Sign of Abuse Present Not on file 1 Housing Stability Answer Date Recorded Current Living Arrangements Not on file 01/2023 Potentially Unsafe Housing Conditions Not on misty e 03/01/2023 Family and Community Support Answer Archie e Recorded Help with Day-to-Day Activities Not on file 03/01/2023 Lonely or Isolated Not on file 03/01/2023 Employment Answer Date Recorded Do you want help finding or keeping work or a eugene b? Not on file 03/01/2023 Disabilities Answer Date Recorded Concentrating, Remembering, or Making Decisions Difficulty Not on file 03/01/2023 Doing Errands Independently Difficulty Not on fi le 03/01/2023 Education Answer Date Recorded Help with school or training? Not on file Preferred Language Not on file 03/01/2023 Comments Unknown Sex and Gender Information Value Date Recorded Sex Assigned at Not on file Legal Sex Female 1:19 PM EDT Gender Identity Not on file Sexual Orientation Not on file Last Filed Vital Signs Vital Sign Reading Time Taken Comments Blood Pressure 131/59 08/07/2020 2:13 PM EDT Pulse 110 08/07/2020 2:13 PM EDT Temperature 36.7 C (98 F) 08/07/2020 2:13 PM EDT Respiratory Rate 18 08/07/2020 2:13 PM EDT Oxygen Saturation 92% 08/07/2020 2:13 PM EDT RA Inhaled Oxygen Concentration - - Weight 76.3 kg (168 lb 4.8 oz) 08/07/2020 2:13 P M EDT Height 154.9 cm (5' 1 ) 08/07/2020 2:13 PM EDT Body Mass Index 31.8 08/07/2020 2:13 PM EDT Plan of Treatment Health Maintenance Due Date Last Done Comments DXA SCAN 1955 MAMMOGRAM 1995 COLOGUARD 12/03/2000 COLON CANCER SCREENING 5 YEA R SIGMOIDOSCOPY 12/03/2000 COLONOSCOPY 12/03/2000 COLORECTAL CANCER SCREENING 12/03/2000 CT COLONOGRAPHY 12/03/2000 FECAL OCCULT BLOOD TEST 12/03/2000 FIT Testing (1 year) 12/03/2000 Pneumococcal Vaccine 50+ (1 of 1 - PCV) 12/03/2005 TDAP/TD VACCINES (2 - Tdap) 08/01/2006 08/01/1996 ANNUAL PHYSICAL 08/07/2020 HEPATITIS C SCREENING 08/07/2020 INFLUENZA VACCINE 12/22/2024 COVID-19 Vaccine (2 - season) 01/22/202502/2021 ZOSTER VACCINE Completed 10/18/2019, 05/02/2019 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
--- OUTSIDE RECORDS SUMMARY | 2025-04-02 13:58 | XMS_ITS | Clinical Summary ---
Author Organization [facility] Address [address] [place] [address] Care Team Providers Care Director Of Graduate Medical Education Name Role Phone Heidi Rivers ROMERO Primary Care Provider [phone] Allergies Active Allergy Reactions Criticality Noted Date Comments Clindamycin Unknown - Patient states they do not know rxn details Low 02/03/2022 Diltiazem Unknown - Patient states they do not know rxn details Low 08/07/2020 Levofloxacin Diarrhea Low 08/07/2020 Morphine Other - please document in the comment field Low 12/09/2022 Goes crazy Nadolol Unknown - Patient states they do not know rxn details Low 08/07/2020 Sulfa Drugs Unknown - Patient states they do not know rxn details Low 08/07/2020 Tiotropium Hyrum-Olodaterol Unknown - Patient states they do not know rxn details Low 08/07/2020 Umeclidinium-Vilanterol Unknown - Patien t states they do not know rxn details Low 08/07/2020 Medications aspirin 325 MG tablet Take 1 tablet (325 mg) by mouth 1 (one) time. Active atorvastatin (Lipitor) 40 MG tablet Take 1 tablet every day by oral route. Active ALPRAZolam (Xanax) 0.5 MG tablet Take 1 tablet (0.5 mg) by mouth every night. 3 Active fluticasone (Flonase) 50 MCG/ACT nasal spray [place] 1 spray every day by intranasal route. 3 Active fluticasone-sylvain meterol (Advair Diskus) 250-50 MCG/ACT diskus inhaler Inhale 2 (two) times a day. Active lisinopril-hydr oCHLOROthiazide 20-25 MG tablet Take 1 tablet every day by oral route. Active omeprazole (PriLOSEC) [address] capsule Take 1 capsule every day by oral route. 2 Active predniSONE (Deltasone) 2.5 MG tablet Take 1 tablet (2.5 mg) by mouth 1 (one) time each day. 3 Active Active Problems Problem Noted Date Diagnosed Date Stenosis of larynx 12/09/2022 Dysphagia 12/09/2022 Family History Medical History Relation Name Comments Anesthesia problems Neg Hx Malig Hyperthermia Neg Hx Social History Tobacco Use Types Packs/Day Years Used Date Smoking Tobacco: Former Cigarettes 1 40 1 - 2020 Smokeless Tobacco: Never Tobacco Cessation:Counseling Given: Not Answered Alcohol Use Standard Drinks/Week Comments Never 0 (1 standard drink = 0.6 oz pur e alcohol) Comments No Sex and Gender Information Value Date Recorded Sex Assigned at Female 11/09/2022 10:59 PM EDT Legal Sex Female 2:32 PM EDT Gender Identity Female 11/09/2022 10:59 PM EDT Sexual Orientation Straight 11/09/2022 10 :59 PM EDT Last Filed Vital Signs Vital Sign Reading Time Taken Comments Blood Pressure 92/60 03/25/2023 2:13 PM EDT Pulse 96 03/25/2023 2:13 PM EDT Temperature 37 C (98.6 F) 12/16/2022 8:45 PM EDT Respiratory Rate 16 12/16/2022 8:45 PM EDT Oxygen Saturation 96% 12/16/2022 8:45 PM EDT Inhaled Oxygen Concentration - - Weight 65.8 kg (145 lb) 03/25/2023 2:13 PM EDT Height 154.9 cm (5' 1 ) 03/25/2023 2:13 PM EDT Body Mass Index 27.4 03/25/2023 2:13 PM EDT Plan of Treatment Health Maintenance Due Date Last Done Comments [facility]-Bone Density Scan 1955 [facility]-Depression Screening 1955 [facility]-Hepatitis C Screening 1955 [facility]-Medicare Annual Wellness (AWV) 1955 [facility]-Infant/Child/Adol SDOH Screenings 1955 [facility]- SDOH Screenings 12/03/1973 [facility]-Adult SDOH Screenings 12/03/1973 [facility]-DTaP,Tdap,and Td Vaccines (1 - Tdap) 08/02/1996 08/01/1996 CT Colonography 12/03/2000 Colonoscopy 12/03/2000 FIT-DNA 12/03/2000 FIT 12/03/2000 FOBT 12/03/2000 Sigmoidoscopy 12/03/2000 [facility]-Colorectal Cancer Screening 12/03/2000 [facility]-Breast Cancer Screening 12/03/2005 [facility]-Lung Cancer Screening 12/03/2005 [facility]-RSV Vaccine: 60+ Years or (1 - Risk 60-74 years 1-dose series) 2015 DPN-[id number]-13 Vaccine ( season) 2025 05/06/2022, 05/02/2021, 07/31/2020 [facility]-Influenza Vaccine (#1) 01/22/202503/22, 04/24/2022, 03/04/2021, Additional history exists [facility]-Zoster Vaccines Completed 10/18/2019, 9 [facility]-Pneumococcal Vaccine: 50+ Years Completed 04/24/2022, 03/04/2021 [facility]-Obesity Intervention Completed 023, 01/08/2023, 11/30/2022 HPV Vaccines Aged Out No longer eligi ble based on patient's age to complete this topic [facility]-HIB Vaccines Aged Out No longer e ligible based on patient's age to complete this topic [facility]-Hepatitis A Vaccines Aged Out No longer eligible based on patient's age to complete this topic [facility]-IPV Vaccines Aged Out No longer e ligible based on patient's age to complete this topic [facility]-Rotavirus Vaccines Aged Out No lo nger eligible based on patient's age to complete this topic Insurance [employer] MEDICARE Care Teams Director Of Graduate Medical Education Relationship Specialty Start Date End Date Heidi Rivers APRN [facility] [address] [place] [address] PCP - General 11/03/22
== END 2025-04-02 23:59 | disposition home or self-care (01) ==
LOC: RAD 13:49
PROVIDERS: PCP Nurse Practitioner Family; Visit Provider Nurse Practitioner Family
DX: Z12.31 Encounter for screening mammogram for malignant neoplasm of breast (principal); R92.323 Mammographic fibroglandular density, bilateral breasts
CPT/HCPCS: 77063; 77067

== ENCOUNTER 2025-04-10 06:25 | Day surgery (SDC) | payer MEDICARE, SELFPAY ==
[2025-04-06 13:47] VITALS: BMI 27.3
[2025-04-10] VITALS (8 sets, daily range): BP systolic 120–153; BP diastolic 58–85; PULSE 90–107; RESP 15–18; TEMP 36.2–36.6; O2SAT 90–99
--- NOTE | 2025-04-10 07:00 | P.PNANES_ITS ---
[facility] Disclaimer: The information contained in this section may have been updated after the patient was seen, as this information can be updated by other users. Medical History History of colon polyps Allergic rhinitis Laryngeal stenosis Vocal cord paralysis Dysphagia Dyspnea on exertion COPD mixed type History of lung or bronchial cancer Smoking greater than 30 pack years Hoarseness of voice Acute respiratory failure with hypoxia History of transient ischemic attack (TIA) History of heart attack Lung cancer Surgical History (Updated 04/06/25 @ 13:43 by Concha Chavez, RN) H/O cataract removal with insertion of prosthetic lens History of colonoscopy History of adrenal surgery History of brain surgery History of abdominal surgery History of appendectomy History of lung surgery Family History Other Family history of cancer Family history of myocardial infarction Social History Smoking Status: Current some day smoker tobacco type: cigarettes packs per day: 1 alcohol intake: current substance use type: denies use and other current occupational status: unemployed Travel in the last 8 weeks?: None household members: spouse housing: house current occupational exposures/hazards: No caffeine: Yes Have you lived/traveled outside US in past 30 days?: No Contact w/someone who lives/traveled outside US past 30 days?: No Exposure to someone with infectious disease in past 14 days?: No Do you have a fever (greater than 100.4 F or 38 C)?: No Have you tested positive for COVID-19?: No Exposed to someone with COVID-19 in past 14 days?: No Do you have a sore throat?: No Do you have a cough?: No Do you have any weakness?: No Do you have any diarrhea?: No Are you experiencing any unusual bleeding?: No Do you have any muscle aches/pain?: No Do you have any abdominal pain?: No Are you experiencing loss of taste or smell?: No [facility] Anesthesia Checklist Patient Identification Patient Identification: Arm Band and Verbal (Name & ) Structural Data Admitted From: Home Planned Operative Procedure/s: Colonoscopy Consent for Planned Operative Procedure(s) Verified: Yes Verified Documents: Surgical Consent NPO Status Verified Time NPO: 00:00 Chart Verification Results Verified: None Additional verifications Anesthesia Reactions: No Hx Blood Transfusions: No Blood Transfusion Reaction: No Airway Assessment Mallampati Score:: Class II C-Spine Mobility Assessed: Yes TMJ Mobility Assessed: Yes Dentition: Dentures-good fit Neurological Assessment Level of Consciousness: Awake, Alert and Appropriate Hx Seizures: No Numbness or tingling in extremities: No Anesthesia Plan Anesthesia Risk discussed: Yes Anesthesia Plan: Verified ASA Class: III Anesthesia Type: MAC
--- NOTE | 2025-04-10 07:07 | EXP.GEN.HP ---
HPI HPI HPI: This is a 69-year-old female who presents for colonoscopy. She has had multiple adenomatous polyps noted on multiple occasions. Her most recent colonoscopy April 2022 was somewhat complicated by moderate bowel preparation, fairly profound lack of relaxation, and significant tortuosity. Sigmoid diverticulosis (stable) confirmed. A tubular adenoma of the right colon was excised. [facility] Disclaimer: The information contained in this section may have been updated after the patient was seen, as this information can be updated by other users. Medical History (Updated 04/10/25 @ 07:09 by Bello Oseguera MD) History of colon polyps Allergic rhinitis Laryngeal stenosis Vocal cord paralysis Dysphagia Dyspnea on exertion COPD mixed type History of lung or bronchial cancer Smoking greater than 30 pack years Hoarseness of voice Acute respiratory failure with hypoxia History of transient ischemic attack (TIA) History of heart attack Lung cancer Surgical History (Updated 04/06/25 @ 13:43 by Concha Chavez, RN) H/O cataract removal with insertion of prosthetic lens History of colonoscopy History of adrenal surgery History of brain surgery History of abdominal surgery History of appendectomy History of lung surgery Family History Other Family history of cancer Family history of myocardial infarction Social History Smoking Status: Current some day smoker tobacco type: cigarettes packs per day: 1 alcohol intake: current substance use type: denies use and other current occupational status: unemployed Travel in the last 8 weeks?: None household members: spouse housing: house current occupational exposures/hazards: No caffeine: Yes Have you lived/traveled outside US in past 30 days?: No Contact w/someone who lives/traveled outside US past 30 days?: No Exposure to someone with infectious disease in past 14 days?: No Do you have a fever (greater than 100.4 F or 38 C)?: No Have you tested positive for COVID-19?: No Exposed to someone with COVID-19 in past 14 days?: No Do you have a sore throat?: No Do you have a cough?: No Do you have any weakness?: No Do you have any diarrhea?: No Are you experiencing any unusual bleeding?: No Do you have any muscle aches/pain?: No Do you have any abdominal pain?: No Are you experiencing loss of taste or smell?: No Other Medical History Have you received the Flu Vaccine for this season: No Have you received the Pneumonia Vaccine: Yes Review of Systems Review of Systems Review of systems:: pertinent systems reviewed and negative unless documented below Meds Home Medications and Allergies Home Medications ?Medication ?Instructions ?Recorded ?Confirmed ?Type atorvastatin 40 mg tablet 40 mg PO DAILY Cholesterol 09/21/18 04/06/25 History lisinopril 20 1 tab PO DAILY Hypertension 09/21/18 04/06/25 History mg-hydrochlorothiazide 25 mg tablet (Zestoretic) omeprazole 20 mg capsule,delayed 20 mg PO DAILY acid reflux 09/21/18 04/06/25 History release aspirin 325 mg tablet,delayed 325 mg PO DAILY heart health 12/02/20 04/06/25 History release alprazolam 0.5 mg tablet (Xanax) 0.5 mg PO HS PRN Sleep 09/22/22 04/06/25 History prednisone 20 mg tablet 2.5 mg PO DAILY 04/27/23 04/06/25 History azelastine 205.5 mcg (0.15 %) 2 spray intranasal HS 90 days #30 10/27/23 04/06/25 Rx nasal spray (Astepro Allergy) mL fluticasone propionate 50 2 spray intranasal DAILY 90 days 10/27/23 04/06/25 Rx mcg/actuation nasal #16 grams spray,suspension (Flonase Allergy Relief) fluticasone fur. 100 mcg-umeclid See Rx Instructions .Route 09/04/24 04/06/25 Rx 62.5 mcg-vilant 25 mcg .COMPLEX #180 blisters inhalat.powder (Trelegy Ellipta) montelukast 10 mg tablet See Rx Instructions .Route 01/12/25 04/06/25 Rx .COMPLEX #90 tabs sodium sul 1.479 gram-potas ch See Rx Instructions PO PER PKG DIR 03/29/25 Rx 0.188 gram-magnes sul 0.225 gram #24 tabs tablet (Sutab) albuterol sulfate 90 mcg/actuation 2 inh inhalation QID PRN shortness 04/06/25 04/06/25 History aerosol inhaler (Ventolin HFA) of breath or wheezing New Prescriptions to Start Prescriptions: Allergies Allergy/AdvReac Type Severity Reaction Status Date / Time pembrolizumab (From Keytruda) Allergy Severe Difficulty Verified 04/10/25 07:03 Breathing diltiazem (DILTIAZEM) Allergy Unknown UNKNOWN Verified 04/10/25 07:03 levofloxacin (From LEVAQUIN) Allergy Unknown NA-NAUSEA/V Verified 04/10/25 07:03 OMITING nadolol (From CORGARD) Allergy Unknown UNKNOWN Verified 04/10/25 07:03 oxycodone (From ROXICET) Allergy Unknown UNKNOWN Verified 04/10/25 07:03 umeclidinium (From Anoro AdvReac Intermediate Chest Pain Verified 04/10/25 07:03 Ellipta) vilanterol (From Anoro AdvReac Intermediate Chest Pain Verified 04/10/25 07:03 Ellipta) morphine AdvReac Hallucinati Verified 04/10/25 07:03 ng olodaterol (From Stiolto AdvReac Chest Pain Verified 04/10/25 07:03 Respimat) tiotropium (From Stiolto AdvReac Chest Pain Verified 04/10/25 07:03 Respimat) Exam Data for Last 24 hours I & O for Last 24 hours: Intake & Output 04/07/25 04/08/25 04/09/25 04/10/25 11:59 11:59 11:59 11:59 Weight 145 lb Constitutional Constitutional: no acute distress *Routine HEENT Exam Head: Present normocephalic Eye: Present EOMI ENT: Present mucous membranes moist *Routine Neck Exam Neck: Present full ROM *Routine Respiratory Exam Respiratory: Absent respiratory distress *Routine Cardiovascular Exam Cardiovascular: Absent tachycardia *Routine Abdominal Exam Abdominal: Present soft *Routine Rectal Exam Rectal:: deferred *Routine Genitalia Exam Genitalia:: deferred *Routine Extremities Exam Extremities: Present full ROM *Routine Skin Exam Skin: Absent erythema *Routine Neurological Exam Neurological: Present alert Assessment and Plan *Assessment and plan (1) History of colon polyps: Status: Acute Category: Medical Code(s): Z86.0100 - Personal history of colon polyps, unspecified Plan: Colonoscopy today I have discussed the risks and benefits including, but not limited to: Bleeding Infection Damage to surrounding tissue Inherent risks of sedation The patient agrees to proceed.
--- NOTE | 2025-04-10 07:09 | HMH.SCOPE ---
Procedure: Date: 04/10/25 Patient Date of :: 1955 Procedure Performed:: Colonoscopy with polypectomy Indications:: History of colon polyps Note: She has a history of multiple adenomatous polyps noted on multiple occasions. Her most recent colonoscopy in April 2022 was somewhat complicated by moderate bowel preparation, fairly profound lack of relaxation, and significant tortuosity. Sigmoid diverticulosis (stable) confirmed. A tubular adenoma of the right colon was excised. Performing Provider:: Bello Oseguera MD Referring Provider:: . Sedation:: Monitored anesthesia care Procedure:: After informed consent was obtained the patient was taken to the endoscopy suite. Sedation ensued after the patient was transferred to the left lateral decubitus position. Pulse, blood pressure, and oxygen saturation were monitored throughout the procedure. Digital rectal exam revealed no significant abnormality. The colonoscope was placed in position. The entire colon was evaluated. The colonoscope was carefully removed and the patient was transferred to recovery in stable condition. Please see findings and specimens below for detail. Findings:: Bowel preparation moderate Persistent severe lack of relaxation/spasticity Unchanged sigmoid diverticulosis Hemorrhoidal tag/cushions Multiple polyps (see specimens) Specimens:: Small proximal right colon polyp (cold biopsy forceps) Right colon polyp (cold snare) Adjacent polyps at 50 cm (cold snare) Cluster of polyps around 40 cm (cold snare and cold biopsy forceps) Polyp at 30 cm (cold snare) - Note: This polyp was not retrieved as it was lost in surrounding feculent material. Recommendations:: Follow-up pathology Repeat colonoscopy in 1-2 years with extended/alternate bowel preparation. Consider gastroenterology consultation secondary to persistent visualization difficulties on colonoscopy and possible chronic constipation. If gastroenterology consultation is completed, repeat colonoscopy deferred to their service. Complications:: No immediate Estimated blood obtained (mL): 1 Colonoscopy Component Colonoscopy Component Was a colonoscopy performed during today's procedure?: Yes Recommended follow up colonoscopy of at least 10 years?: No If no, follow up colonoscopy recommended in ___ years?: (See above) Reason for not recommending >/= 10 yr follow-up interval?: (See above)
[2025-04-10 07:21] LABS: POC Glucose,Bedside 132 gm/dL (70-110)
[2025-04-10] MEDS: LACTATED RINGERS 1000ML 1,000 ML 50 ML IV (07:21)
== END 2025-04-10 10:10 | disposition home or self-care (01) ==
PROVIDERS: PCP Nurse Practitioner Family; Visit Provider Surgery
PROC: 0DJD8ZZ Inspection of Lower Intestinal Tract, Via Natural or Artificial Opening Endoscopic (ICD-10-PCS; CPT 45385; principal; 2025-04-10 07:30)
DX: J44.9 Chronic obstructive pulmonary disease, unspecified; Z86.73 Personal history of transient ischemic attack (TIA), and cerebral infarction without residual deficits; F17.210 Nicotine dependence, cigarettes, uncomplicated; Z79.82 Long term (current) use of aspirin; Z86.0101 Personal history of adenomatous and serrated colon polyps; D12.2 Benign neoplasm of ascending colon
CPT/HCPCS: 45385; 82962; 88305; J2003; J2704; J7120

== ENCOUNTER 2025-04-30 09:04 | Outpatient (CLI) | payer MEDICARE, SELFPAY ==
--- NOTE | 2025-04-30 09:07 | XR_ITS ---
FINAL REPORT TECHNIQUE: Bone densitometry calculations of the lumbar spine and left hip were obtained. CLINICAL HISTORY: SCREENING FINDINGS: Using L1-4, the bone mineral density of the spine is 0.902 g/cm2, corresponding to T-score of neck of -1.3. Using the left hip, the bone mineral density of the femoral neck is 0.662 g/cm2, corresponding to a T-score of -1.7. Using the right hip, the bone mineral density of the femoral neck is 0.676 g/cm2, corresponding to a T-score of -1.6. NOTE: T-score: Standard deviation compared with peak bone mass of young adult mean. *Following the recommendations of the International Society of Bone densitometry, classification of hip BMD is based on the lower of two T-scores; total hip or femoral neck. IMPRESSION: Diminished bone mineral density of the lumbar spine and both hips consistent with osteopenia. FRAX data reports 10-year fracture risk of 10% for major osteoporotic fracture and 2.3% for hip fracture. Reviewed, Interpreted and Dictated by Lorenzo Buck MD Transcribed by Katrina Coello Authenticated and [facility]
--- OUTSIDE RECORDS SUMMARY | 2025-04-30 09:20 | XMS_ITS | Encounter Summary ---
Author Organization [email or web address] ([place], [place], [place], [place], [place]) Address [address] [place] [address] Care Team Providers Care Product Development Ecologist Name Role Phone Jonas Navas MD Primary Care Provider [phone] Marcell Uriostegui MD Primary Care Provider + [phone] Heidi Rivers APRN Primary Care Provider + [phone] Neptali Bergman MD Unavailable [phone] Encounter Details Date Type Department Care Team (Late st Contact Info) Description 08/01/2019 Transcribed Document [facility] [place] [address] [place] [address] ProviderJennifer MD [address] [place] [address] Social History Tobacco Use Types Packs/Day Years Used Date Smoking Tobacco: Never Assessed Comments Unknown Sex and Gender Information Value Date Recorded Sex Assigned at Not on file Legal Sex Female 1:09 PM CDT Gender Identity Not on file Sexual Orientation Not on file documented as of this encounter Miscellaneous Notes * Cerner Conversion Note - Jennifer ProviderMD - 08/01/2019 11:04 AM CDT Patient: ALEJANDRINA YEH Age: 63 years Sex: Female : 1955 Associated Diagnoses: None Author: ZENOBIA DE LEON PA Admission Date: Discharge Date: Attending: Dr. Jonas Navas, [place] Surgery PCP: Dr. Jordy Akers ( [facility], ) Consultants: Brief History:This 63-year-old female with chronic persistent ongoing tobacco abuse underwent CT lung screening because of her history of tobacco abuse, COPD, and age. She was found to have a 1.8 cm spiculated left upper lobe nodule and this was followed up with CT-directed needle biopsy. This was positive for adenocarcinoma, lung primary. PET scanning showed no evidence of mediastinal lymph node uptake, but very high uptake in the left upper lobe mass. No other abnormality in the body was found. PROCEDURE: 3\20>>1. Left minimally invasive muscle sparing thoracotomy. 2. Left upper lobectomy. 3. Mediastinal lymphadenectomy. DX(Present on admission): 1. Adenocarcinoma of the left upper lobe of lung. 2. Chronic persistent ongoing tobacco abuse with nicotine dependency \ withdrawal 3. Chronic obstructive pulmonary disease. 4. Coronary artery disease. 5. Type 2 diabetes mellitus >>non-insulin dependent 6. Chronic bronchitis. 7. Hyperlipidemia. 8. Some hoarseness POSTOP DX: Hyponatremia Atelectasis Subjective 07/26/19: POD#1 The pt is pleasant and having some incisional pain but controlled with pain medications. 07/27/19: POD#2 feels better than yesterday; very hoarse 07/28/19: POD#3 more comfortable today 07/29/19: POD #4 no new complaints 07/30/19: POD #5 no complaints 07/31/19: POD#6 08/01/19: POD #7 no complaints Health Status Allergies: Allergic Reactions (Selected) Severity Not Documented Anoro Ellipta- Chest pain. Corgard- Unknown. DilTIAZem- Unknown. Levaquin- Vomiting. Stiolto Respimat 10 ACT- Chest pain and muscle weakness (generalized). Current medications.Problem list. Objective VS/Measurements Vital Measurements 08/01/2019 8:10 EDT Oxygen Flow Rate 2 Liter/Min 08/01/2019 5:18 EDT Systolic Blood Pressure 102 mmHg Diastolic Blood Pressure 55 mmHg LOW Temperature, Fahrenheit 98 Deg F 07/31/2019 21:07 EDT Oxygen Saturation 96 % Oxygen Therapy Mode Nasal cannula Oxygen Flow Rate 4 Liter/Min General: Alert and oriented. Respiratory: Lungs are clear to auscultation, Respirations are non-labored. Cardiovascular: Normal rate, Regular rhythm. Lt Chest incision>> C\D\I Tolerates PO voiding Last BM>> 3\2 Ambulates Results Review General results Interpretation: Radiology Results (Last 48 hours) [id number] -- 07/25/2019 07:00 CR Chest 1 Vw Portable (07/31/2019 07:19) Result: PORTABLE CHEST; HISTORY: Pneumothorax.COMPARISON: July 30, 2019.FINDINGS: There has been no change in the left chest tube. The heart isnormal in size. The mediastinum is unremarkable. There are stableincreased interstitial markings. There is a small left pneumothorax withless than 1 cm of pleural separation. IMPRESSION: Small left pneumothorax.Stable increased interstitial markings.The patient's Terri was notified of these findings at the site ofdictation.Images reviewed, interpreted, and dictated by Dr. Vero Mracum.Transcribed by Aminah Yuen PA-C.I have personally viewed, interpreted and dictated the examination. Ihave read and agree with the above final transcribed report. CR Chest 1 Vw Portable (08/01/2019 06:41) Result: PORTABLE CHEST; HISTORY: Pneumothorax.COMPARISON: July 31, 2019.FINDINGS: There has been no change in the left chest tube. The heart isstable in size. The mediastinum is unremarkable. There are stable leftbasilar opacities. There is no pneumothorax. IMPRESSION: No pneumothorax. Otherwise stable exam.Images reviewed, interpreted, and dictated by Dr. Vero Marcum.Transcribed by Aminah Yuen PA-C.I have personally viewed, interpreted and dictated the examination. Ihave read and agree with the above final transcribed report. PATH: Impression and Plan VTE STATUS>>[facility]\ Admission 1. Left minimally invasive muscle sparing thoracotomy. 2. Left upper lobectomy. 3. Mediastinal lymphadenectomy. 07/26/19 POD#1 CT 335ml / 12 hours + air leak Get OOB up to a chair Encouraged IS Transfer to [facility] 07/27/19 POD#2 O2 92% on 4 liters Chest tube output: 940ml x 24hrs ( including 6p to 6a: 470ml); 6a to 12:30p: 200ml ( seosang.) Chest tube: small air bubble with cough\.brEH stable at 10.5 \33.8; WBC 19.9 ( suspect related to surgery, recheck in am) Final Path pending Request Percocet ( over lortab when epidural removed) Mucinex for thick secretions Oncology PT seen and evaluated by Dr. Navas>>continue chest tube to suction Outpt Oncology appt in about [address] Bergman or Dr. Robertson 3\06\20 POD#3 Telemetry>>sinus O2 sat>>95% on 4 liters Lt. Chest tube output: 760 ml x 24hrs ( including 6p to 6a: 270 ml); has UOP 3900 ml ( Scott secondary to epidural) Sodium 129 ( 131 yesterday) Fluid restriction: 1000ml\ 24hrs ( discussed with Pt and Not using incentive spirametry>> encouraged Final Path report above WBC 14.3 ( 19.9 yesterday) if no BM by tomorrow will need laxatives Pt seen and evaluated by Dr. Navas Pain Rx on chart for Dr. Navas to sign 3 POD #4: Left upper lobectomy Chest tube drainage: 830 mL past 24 hours. (Serosanguineous) Placed to waterseal Begun on Lasix 40 mg daily 3: POD #5: Upper lobectomy Chest tube drainage: 240 mL past 24 hours (830 mL prior 24 hours) On waterseal. Getting diuretics. Hopefully chest tube out tomorrow and home 3 POD#6 Telemetry>>sinus O2 sat>>99% 4liters CT output>>200 ml x 24hrs ( including 60 ml 6p to 6a); no air leak on waterseal Pt not using Incentive spirametry q1 hrs as directed>> encouraged use Requiring Percocet 5mg\325 x 2 mg q4hrs; ( secondary to chest tubes) concerned with high dose of tylenol>> change to oxycodone ( Percocet at discharge, after tubes removed) Pt complained to RN: burning with urination>> Urine specimen sent for U\A with culture if indicated CXR>>There has been no change in the left chest tube. The heart is normal in size. The mediastinum is unremarkable. There are stable increased interstitial markings. There is a small left pneumothorax with less than 1 cm of pleural separation. Last BM 3\2>> refusing laxatives ( said liquid laxatives makes her vomit; states she will try Dulcolax supp)>> had BM this afternoon Pt discussed with Dr. Navas ( Dr. Navas reviewed CXR)>> continue daily Lasix; re-enforce fluid restriction continue Chest tube to waterseal>> possible out tomorrow 08/01/19: POD #7: Left upper lobectomy Chest tube drainage: 240 mL past 24 hours. No air leak Atrium marked by me. Will check this afternoon. If minimal drainage will DC chest tube Addendum: Minimal chest tube drainage. Chest tube removed. Patient not up to going home this afternoon. Plan DC home in a.m. documented in this encounter Plan of Treatment Upcoming Encounters Date Type Department Care Team (Late st Contact Info) Description 05/14/2025 8:00 AM EST Lab Patient Walk-In [facility] - [address] [place] [address] 05/14/2025 8:30 AM EST Appointment [facility] - [facility] [address] [facility] [address] [place] [address] Neptali Bergman MD [address] [place] [address] [address] [place] [address] 05/14/2025 10:00 AM EST Appointment [facility] MRI - [facility] [address] [facility] [address] [place] [address] Neptali Bergman MD [address] [place] [address] [address] [place] [address] 05/14/2025 2:15 PM EST Office Visit [facility] - [address] [place] [address] Neptali Bergman MD [address] [place] [address] [address] [place] [address] documented as of this encounter Visit Diagnoses Not on filedocumented in this encounter Care Teams Product Development Ecologist Relationship Specialty Start Date End Date Jonas Navas MD [address] [facility] [address] [place] [address] PCP - General Cardiothoracic Surgery 04/15/22 07/23/22 Marcell Uriostegui MD [address] [facility] [address] [place] [address] PCP - General Adolescent Medicine 07/24/22 04/05/23 Heidi Rivers, ROMERO [address] [facility] [address] [place] [address] PCP - General Nurse Practitioner 04/06/23 Neptali Bergman MD [address] [facility] [address] [place] [address] Hematology and Oncology 10/31/24 documented as of this encounter
--- OUTSIDE RECORDS SUMMARY | 2025-04-30 09:20 | XMS_ITS | Encounter Summary ---
Author Organization [employer] ([place], [place], [place], [place], [place]) Address [address] [place] [address] Care Team Providers Care Soft Sugar Supervisor Name Role Phone Jonas Navas MD Primary Care Provider [phone] Marcell Uriostegui MD Primary Care Provider + [phone] Heidi Rivers APRN Primary Care Provider + [phone] Neptali Bergman MD Unavailable [phone] Encounter Details Date Type Department Care Team (Late st Contact Info) Description 08/01/2019 Transcribed Document [facility] [place] [facility] [place] [address] ProviderJennifer MD [address] [place] [address] Social History Tobacco Use Types Packs/Day Years Used Date Smoking Tobacco: Never Assessed Comments Unknown Sex and Gender Information Value Date Recorded Sex Assigned at Not on file Legal Sex Female 1:09 PM CDT Gender Identity Not on file Sexual Orientation Not on file documented as of this encounter Miscellaneous Notes * Cerner Conversion Note - Jennifer ProviderMD - 08/01/2019 2:00 AM CDT Keeler Polygraph Operator Details Entered On: 08/01/2019 4:35 EDT Performed On: 08/01/2019 2:00 EDT by Janis Pickens RN Order Details Transport Mode Order Detail : Wheelchair Isolation Precautions Order Detail : Standard Precautions Order Detail : 0 IV Order Detail : 1 Oxygen Order Detail : 0 Nurse Collect Order Detail : 0 Lift/Transfer : Independent Central Line Order Detail : No Room Service : Appropriate Arterial Line : No Celio, August, RN - 08/01/2019 4:35 EDT documented in this encounter Plan of Treatment Upcoming Encounters Date Type Department Care Team (Late st Contact Info) Description 05/14/2025 8:00 AM EST Lab Patient Walk-In [facility] - [address] [place] [address] 05/14/2025 8:30 AM EST Appointment [facility] CT - [facility] [address] [facility] [address] [place] [address] Neptali Bergman MD [facility] [address] [place] [address] 05/14/2025 10:00 AM EST Appointment [facility] MRI - [address] [facility] [address] [place] [address] Neptali Bergman MD [facility] [address] [place] [address] 05/14/2025 2:15 PM EST Office Visit [facility] - [address] [place] [address] Neptali Bergman MD [facility] [address] [place] [address] [place] [address] documented as of this encounter Visit Diagnoses Not on filedocumented in this encounter Care Teams Soft Sugar Supervisor Relationship Specialty Start Date End Date Jonas Navas MD [address] [facility] [address] [place] [address] PCP - General Cardiothoracic Surgery 04/15/22 07/23/22 Marcell Uriostegui MD [address] [facility] [address] [place] [address] PCP - General Adolescent Medicine 07/24/22 04/05/23 Heidi Rivers APRN [address] [facility] [address] [place] [address] PCP - General Nurse Practitioner 04/06/23 Neptali Bergman MD [address] [facility] [address] [place] [address] Hematology and Oncology 10/31/24 documented as of this encounter
--- OUTSIDE RECORDS SUMMARY | 2025-04-30 09:20 | XMS_ITS | Encounter Summary ---
Author Organization [employer] ([place], [place], [place], [place], [place]) Address [address] [place] [address] Care Team Providers Care Chief Executive Or Managing Director Name Role Phone Jonas Navas MD Primary Care Provider [phone] Marcell Uriostegui MD Primary Care Provider + [phone] Heidi Rivers APRN Primary Care Provider + [phone] Neptali Bergman MD Unavailable [phone] Encounter Details Date Type Department Care Team (Late st Contact Info) Description 08/02/2019 Transcribed Document [facility] [place] [facility] [place] [address] ProviderJennifer MD [address] [place] [address] Social History Tobacco Use Types Packs/Day Years Used Date Smoking Tobacco: Never Assessed Comments Unknown Sex and Gender Information Value Date Recorded Sex Assigned at Not on file Legal Sex Female 1:09 PM CDT Gender Identity Not on file Sexual Orientation Not on file documented as of this encounter Miscellaneous Notes * Cerner Conversion Note - Jennifer ProviderMD - 08/02/2019 8:33 AM CDT UM Authorization Entered On: 08/02/2019 8:33 EDT Performed On: 08/02/2019 8:33 EDT by SURENDRA FRANK Rn-Utilization Review Primary Insurance Authorization Authorization and Policy Numbers : Insurance 1 Health Plan: [employer] Policy Number: [id number] Authorization Number: [id number] [facility] Policy Number: [id number] Authorization Status-Primary : Awaiting callback Authorization Number-Primary : [id number] Number of Days Authorized-Primary : 3 Day(s) Authorized Service Begin Date-Primary : 07/25/2019 EST Authorized Service End Date-Primary : 07/28/2019 EST Historical Authorization Comments-Primary : Comment 1: [place] approved per availity for 4 days inpt (NORI VALVERDE, RN-Utilization Review 07/21/2019 13:39) SURENDRA FRANK Rn-Utilization Review - 08/02/2019 8:33 EDT Electronically signed by [facility] Conversion Manager [employer] at 09/10/2022 12:31 AM CDT documented in this encounter Plan of Treatment Upcoming Encounters Date Type Department Care Team (Late st Contact Info) Description 05/14/2025 8:00 AM EST Lab Patient Walk-In [facility] - [address] [place] [address] 05/14/2025 8:30 AM EST Appointment [facility] CT - [address] [facility] [address] [place] [address] Neptali Bergman MD [address] [place] [address] [address] [place] [address] 05/14/2025 10:00 AM EST Appointment [facility] MRI - [place] [facility] [address] [facility] [address] [place] [address] Neptali Bergman MD [facility] [address] [place] [address] 05/14/2025 2:15 PM EST Office Visit [facility] - [address] [place] [address] Neptali Bergman MD [address] [place] [address] [address] [place] [address] documented as of this encounter Visit Diagnoses Not on filedocumented in this encounter Care Teams Chief Executive Or Managing Director Relationship Specialty Start Date End Date Jonas Navas MD [address] [facility] [address] [place] [address] PCP - General Cardiothoracic Surgery 04/15/22 07/23/22 Marcell Uriostegui MD [address] [facility] [address] [place] [address] PCP - General Adolescent Medicine 07/24/22 04/05/23 Heidi Rivers APRN [address] [place] [address] PCP - General Nurse Practitioner 04/06/23 Neptali Bergman MD [address] [facility] [address] [place] [address] Hematology and Oncology 10/31/24 documented as of this encounter
--- OUTSIDE RECORDS SUMMARY | 2025-04-30 09:20 | XMS_ITS | Encounter Summary ---
Author Organization [employer] ([place], [place], [place], [place], [place]) Address [address] [place] [address] Care Team Providers Care Social Insurance Adviser Name Role Phone Jonas Navas MD Primary Care Provider [phone] Marcell Uriostegui MD Primary Care Provider + [phone] Heidi Rivers APRN Primary Care Provider + [phone] Neptali Bergman MD Unavailable [phone] Encounter Details Date Type Department Care Team (Late st Contact Info) Description 08/01/2019 Transcribed Document [facility] Family [place] [address] ProviderJennifer MD [address] [place] [address] Social History Tobacco Use Types Packs/Day Years Used Date Smoking Tobacco: Never Assessed Comments Unknown Sex and Gender Information Value Date Recorded Sex Assigned at Not on file Legal Sex Female 1:09 PM CDT Gender Identity Not on file Sexual Orientation Not on file documented as of this encounter Miscellaneous Notes * Cerner Conversion Note - Jennifer ProviderMD - 08/01/2019 3:48 PM CDT On Going Discharge Planning Entered On: 08/01/2019 15:50 EDT Performed On: 08/01/2019 15:48 EDT by ANASTASIA DA SILVA RN-Cemetery ManagerFinisher Map And Chart Progress Note Discharge Arrangements : Patient Post-Acute Information Patient Name: ALEJANDRINA YEH Gender: Female : 55 Age: 63 Years No Post-Acute Placement(s) Listed No Post-Acute Service(s) Listed No [place] Referral(s) Listed Discharge Options Discussed with Patient : DME Barriers to Discharge Identified : Clinical Condition of Patient Barriers to Discharge Unresolved : Clinical Condition of Patient Is the Patient Meeting Medical Necessity : Yes Did you Attend Multidisciplinary Rounds? : Yes ANASTASIA DA SILVA RN-Cemetery Manager - 08/01/2019 15:48 EDT Narrative Progress Note Narrative Progress Note : Patient is a low readmission risk. ELOS: 5 days HD#7 POD#7 Left thoracotomy, Left upper lobectomy; Telemetry NSR, O2 sat 94% on 2 liters, CT pulled today, last BM 3/2 to receive an enema. DCP: Home with tomorrow, and possibly home oxygen. If patient needs home O2 she would like to use [facility]. CM will continue to follow. Historical Progress Note : Patient is a low readmission risk. ELOS: 5 days HD#6 POD#6 Left thoracotomy, Left upper lobectomy; Telemetry NSR, O2 sat 99% on 4 liters, CT to water seal, last BM 3/2 refuses laxitives. DCP: Home with , and possibly home oxygen. If patient needs home O2 she would like to use [facility]. CM will continue to follow. ANASTASIA DA SILVA RN-Cemetery Manager - 07/31/19 17:48:18 Admission day 3, transfer from [facility], on 4 liters O2, CT remains in place (760ml/24hrs), epidural and sargent remain in place, BV=201' with rwx/O2/suction. DCP: to return home with family (watch for possible O2 needs). CM will continue to follow. STEWART AYALA, Sterile Processing Technician - 07/28/19 16:32:45 CTS encouraging pt to be up in chair OOB; anticipate possible transfer out of [facility] later today; anticipate home with spouse when stable; monitor for home oxygen need. ALEXUS LEON Rn-Cemetery Manager - 07/26/19 09:54:47 ANASTASIA DA SILVA RN-Cemetery Manager - 08/01/2019 15:48 EDT Electronically signed by Deric Catalan Conversion Quality Control Microbiologist Cerner at 09/10/2022 12:39 AM CDT documented in this encounter Plan of Treatment Upcoming Encounters Date Type Department Care Team (Late st Contact Info) Description 05/14/2025 8:00 AM EST Lab Patient Walk-In [facility] - [address] [place] [address] 05/14/2025 8:30 AM EST Appointment [facility] CT - [address] [place] [address] Neptali Bergman MD [address] [facility] [address] [place] [address] 05/14/2025 10:00 AM EST Appointment [facility] MRI - [address] [place] [address] Neptali Bergman MD [address] [place] [address] 05/14/2025 2:15 PM EST Office Visit [facility] - [address] [place] [address] Neptali Bergman MD [address] [place] [address] documented as of this encounter Visit Diagnoses Not on filedocumented in this encounter Care Teams Social Insurance Adviser Relationship Specialty Start Date End Date Jonas Navas MD [address] [facility] [address] [place] [address] PCP - General Cardiothoracic Surgery 04/15/22 07/23/22 Marcell Uriostegui MD [address] [place] [address] [place] [address] PCP - General Adolescent Medicine 07/24/22 04/05/23 Heidi Rivers, ROMERO [address] [facility] [address] [place] [address] PCP - General Nurse Practitioner 04/06/23 Neptali Bergman MD [address] [facility] [address] [place] [address] Hematology and Oncology 10/31/24 documented as of this encounter
--- OUTSIDE RECORDS SUMMARY | 2025-04-30 09:21 | XMS_ITS | Encounter Summary ---
Author Organization [employer] ([place], [place], [place], [place], [place]) Address [address] [place] [address] Care Team Providers Care Bottle Inspector Name Role Phone Jonas Navas MD Primary Care Provider [phone] Marcell Uriostegui MD Primary Care Provider + [phone] Heidi Rivers APRN Primary Care Provider + [phone] Neptali Bergman MD Unavailable [phone] Encounter Details Date Type Department Care Team (Late st Contact Info) Description 07/31/[address] [facility] [place] [facility] [place] [address] ProviderJennifer MD [address] [place] [address] Social History Tobacco Use Types Packs/Day Years Used Date Smoking Tobacco: Never Assessed Comments Unknown Sex and Gender Information Value Date Recorded Sex Assigned at Not on file Legal Sex Female 1:09 PM CDT Gender Identity Not on file Sexual Orientation Not on file documented as of this encounter Miscellaneous Notes * Cerner Conversion Note - Jennifer ProviderMD - 07/31/2019 3:09 AM CDT Rapid Response Team Documentation Entered On: 07/31/2019 3:12 EDT Performed On: 07/31/2019 3:09 EDT by OMAR RODRIGES RN Rapid Response Event Time Rapid Response Team Called : 07/30/2019 21:00 EDT Rapid Response Team Arrival Time : 07/31/2019 0:45 EDT Rapid Response Team Event End Time : 07/31/2019 1:00 EDT Rapid Response Event Intiated By : Other: MEWS report Rapid Response Team Initiation Reason : Change in MEWS score Rapid Response Event Location Type : Other: 3E Rapid Response Team Initiation Reason Details : patient with MEWS score of 4. Scoring reviewed and found to be inaccurate - recalculated using documented vs and score was 1. Rapid Response Admission Diagnosis : Atherosclerotic heart disease of [place] coronary artery without angina pectoris Chronic obstructive pulmonary disease, unspecified Essential (primary) hypertension Gastro-esophageal reflux disease without esophagitis Hyperlipidemia, unspecified Malignant neoplasm of unspecified part of left bronchus or lung Malignant neoplasm of unspecified part of left bronchus or lung Malignant neoplasm of upper lobe, left bronchus or lung Malignant neoplasm of upper lobe, left bronchus or lung Nicotine dependence unspecified, with withdrawal Sleep apnea, unspecified Transient cerebral ischemic attack, unspecified Type 2 diabetes mellitus without complications Unspecified chronic bronchitis Rapid Response Medical Background : Arthritis (Patient Stated) Back pain (Patient Stated) CA - Lung cancer adenocarcinoma (Medical) 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 (Patient Stated) Claustrophobia (Medical) Coronary artery disease s/p ID (Patient Stated) Current every day smoker (Medical) Diabetes mellitus type II (Medical) Diverticulosis (Medical) GERD - Gastro-esophageal reflux disease (Medical) H/O: TIA (Patient Stated) Hiatal hernia (Medical) High blood pressure (Patient Stated) History of obstructive sleep apnea (Medical) Hyperlipidemia (Patient Stated) Migraine (Patient Stated) Shortness of breath (Medical) Sinusitis (Patient Stated) Sleep apnea no c-pap (Patient Stated) Rapid Response Allergies : Substance Category Reactions Severity Anoro Ellipta Drug Chest pain Corgard Drug Unknown dilTIAZem Drug Unknown Levaquin Drug Vomiting Stiolto Respimat 10 ACT Drug Muscle weakness (generalized) Stiolto Respimat 10 ACT Drug Chest pain Rapid Response Recent Vital Signs : 07/30/2019 17:31 Systolic Blood Pressure 108 07/30/2019 17:31 Diastolic Blood Pressure 52 07/30/2019 17:31 Heart Rate Monitored 78 07/30/2019 17:31 Respiratory Rate 20 07/30/2019 17:31 Temperature, Fahrenheit 98 Rapid Response Recent Lab Results : 07/30/2019 05:47 Sodium Level LOW 134 (136-146) 07/30/2019 05:47 Potassium Level 3.5 (3.5-5.1) 07/30/2019 05:47 Calcium Level 9.0 (8.4-10.1) 07/20/2019 13:20 eAVG Glucose NA 143 07/30/2019 21:41 Glucose POC2 HI 119 (70-110) 07/30/2019 05:47 Chloride Level LOW 93 (102-112) 07/30/2019 05:47 Carbon Dioxide Level HI 39 (21-32) 07/30/2019 05:47 Blood Urea Nitrogen 19 (7-22) 07/30/2019 05:47 Creatinine Level 0.70 (0.55-1.02) 07/20/2019 13:20 PT 10.3 (9.6-12.0) 07/20/2019 13:20 INR 1.0 (0.9-1.1) 07/20/2019 13:20 PTT 27.2 (24.0-34.0) 07/20/2019 13:20 Hgb A1C NA 6.6 07/28/2019 03:13 Hgb LOW 9.9 (11.2-15.7) 07/28/2019 03:13 Hct LOW 31.4 (34.1-44.9) 07/28/2019 03:13 RBC LOW 3.72 (3.93-5.22) 07/28/2019 03:13 WBC HI 14.3 (4.5-10.5) 07/28/2019 03:13 Platelet Count 234 (163-369) Weight/BMI : Clinical Weight/BMI CLINICALWEIGHT: 72.39 kg (07/25/19 06:59:00) CLINICALWEIGHT: 72.39 kg (07/20/19 13:00:00) Body Mass Index: 29.2 kg/m2 High (07/25/19 06:59:00) Body Mass Index: 29.2 kg/m2 High (07/20/19 13:00:00) Chest X Ray Performed : N/A Code Status Pre Event : Full Code Code Status Post Event : Full Code Procedure w/Anesthesia 24 Hr Prior Event : No Rapid Response Team Event Interventions : No intervention Patient Condition at End of Event : No S/S of Acute Distress Patient Disposition Post Event : No change in location/level of care Rapid Response Bottle Inspector #1 : OMAR RODRIGES, RN OMAR RODRIGES, RN - 07/31/2019 3:09 EDT Electronically signed by Kolby Catalan Conversion Washer And Capper Machine Operator Cerner at 09/10/2022 12:46 AM CDT documented in this encounter Plan of Treatment Upcoming Encounters Date Type Department Care Team (Late st Contact Info) Description 05/14/2025 8:00 AM EST Lab Patient Walk-In [facility] - [address] [place] [address] 05/14/2025 8:30 AM EST Appointment [facility] CT - [address] [place] [address] Neptali Bergman MD [address] [place] [address] [address] [place] [address] 05/14/2025 10:00 AM EST Appointment [facility] MRI - [address] [facility] [address] [place] [address] Neptali Bergman MD [facility] [address] [place] [address] 05/14/2025 2:15 PM EST Office Visit [facility] - [address] [place] [address] Neptali Bergman MD [address] [place] [address] [address] [place] [address] documented as of this encounter Visit Diagnoses Not on filedocumented in this encounter Care Teams Bottle Inspector Relationship Specialty Start Date End Date Jonas Navas MD [address] [facility] [address] [place] [address] PCP - General Cardiothoracic Surgery 04/15/22 07/23/22 Marcell Uriostegui MD [address] [place] [address] PCP - General Adolescent Medicine 07/24/22 04/05/23 Heidi Rivers, RESAW CARRIAGE OPERATOR [address] [facility] [address] [place] [address] PCP - General Nurse Practitioner 04/06/23 Neptali Bergman MD [address] [facility] [address] [place] [address] Hematology and Oncology 10/31/24 documented as of this encounter
--- OUTSIDE RECORDS SUMMARY | 2025-04-30 09:21 | XMS_ITS | Encounter Summary ---
Author Organization [employer] ([place], [place], [place], [place], [place]) Address [address] [place] [address] Care Team Providers Care Agile Coach Name Role Phone Jonas Navas MD Primary Care Provider [phone] Marcell Uriostegui MD Primary Care Provider [phone] Heidi Rivers APRN Primary Care Provider [phone] Neptali Bergman MD Unavailable [phone] Encounter Details Date Type Department Care Team (Late st Contact Info) Description 08/02/2019 Transcribed Document [facility] [address] [place] [id number] ProviderJennifer MD [address] [place] [id number] Social History Tobacco Use Types Packs/Day Years Used Date Smoking Tobacco: Never Assessed Comments Unknown Sex and Gender Information Value Date Recorded Sex Assigned at Not on file Legal Sex Female 1:09 PM CDT Gender Identity Not on file Sexual Orientation Not on file documented as of this encounter Miscellaneous Notes * Cerner Conversion Note - Jennifer ProviderMD - 08/02/2019 12:55 PM CDT Patient Education Materials Follows: Thoracotomy Thoracotomy is surgery to open the chest. This is done to get to organs and tissue inside. This surgery is often done to repair or remove chest tissue that is diseased or damaged. What happens before the procedure? Medicines ??? Ask your doctor about: ? Changing or stopping your normal medicines. This is important if you take diabetes medicines or blood thinners. ? Taking medicines such as aspirin and ibuprofen. These medicines can thin your blood. Do not take these medicines before your procedure if your doctor tells you not to. ??? You may be given antibiotic medicine. Staying hydrated ??? Follow instructions from your doctor about drinking fluids. Instructions may include: ? Up to 2 hours before the procedure ? you may drink clear liquids. This includes water, clear fruit juice, black coffee, and plain tea. Eating and drinking restrictions ??? Follow instructions from your doctor about eating and drinking. Instructions may include: ? 8 hours before the procedure ? stop eating heavy meals or foods such as meat, fried foods, or fatty foods. ? 6 hours before the procedure ? stop eating light meals or foods, such as toast or cereal. ? 6 hours before the procedure ? stop drinking milk or drinks that contain milk. ? 2 hours before the procedure ? stop drinking clear liquids. General instructions ??? You may have tests, such as: ? X-rays. ? MRI. ? CT scan. ? Tests of lung mucus (sputum culture). ? Blood tests. ? Lung (pulmonary) tests. ? A test of heart function and rhythm (electrocardiogram, ECG). ? A test to check blood vessels in your lungs (pulmonary angiogram). ??? You may be asked to shower with a germ-killing soap. ??? Ask your doctor how your surgical site will be marked or identified. ??? Plan to have someone take you home from the hospital. ??? Do not use any products that contain nicotine or tobacco. These include cigarettes and e-cigarettes. If you need help quitting, ask your doctor. What happens during the procedure? To lower your risk of infection: ? Your health care team will wash or sanitize their hands. ? Your skin will be washed with soap. ??? An IV tube will be placed in one of your veins. ??? You will be given a medicine to make you fall asleep (general anesthetic). You may also be given a medicine to help you relax (sedative). ??? A thin tube (catheter) will be placed into your urethra and bladder. This tube drains your pee (urine). ??? A tube will be placed down your throat. This tube helps you breathe. ??? A 5?10 inch (13?25 cm) cut (incision) will be made in your chest. How big the cut is and where it is depends on the purpose of the surgery. ??? A tool (retractor) will be used to separate muscle and tissue. This helps your surgeon get to chest tissue. Your rib cage may also be . ??? Chest tissue will be taken out as needed. ??? A chest tube will be placed between your ribs. This drains fluid from your lungs. ??? Your cut will be closed with stitches (sutures) or cody. ??? A bandage (dressing) may be placed on the cut. The procedure may vary among doctors and hospitals. What happens after the procedure? Your blood pressure, heart rate, breathing rate, and blood oxygen level will be monitored. ??? You will be given pain medicine as needed. ??? You will have a chest tube. This may stay in place for 24?48 hours. You will be watched for fluid buildup in your lungs. ??? You may still: ? Have a breathing tube. ? Have an IV tube. ? Have a tube draining your pee. ??? You may have to wear stockings that reduce swelling and lower the risk of blood clots (compression stockings). ??? To help prevent lung infection (pneumonia): ? You may need to do breathing exercises. ? You may use a tool that measures how much your lungs fill up when you breathe. This is called an incentive spirometer. Summary ??? Thoracotomy is surgery to open the chest to get to the organs and tissue inside. ??? This surgery is often done to repair or remove diseased or damaged chest tissue. ??? During the procedure, a 5?10 inch (13?25 cm) cut will be made in your chest. ??? You may have a chest tube draining fluid from your lungs. This may stay in place for 24?28 hours. This information is not intended to replace advice given to you by your health care provider. Make sure you discuss any questions you have with your health care provider. Document Released: 11/08/2012 Document Revised: 02/01/2017 Document Reviewed: 02/01/2017 [employer] Patient Education ? 2019 [employer] Thoracotomy, Care After This sheet gives you information about how to care for yourself after your procedure. Your doctor may also give you more specific instructions. If you have problems or questions, contact your doctor. Follow these instructions at home: Preventing lung infection ( pneumonia)??? Take deep breaths or do breathing exercises as told by your doctor. ??? Cough often. Coughing is important to clear thick spit (phlegm) and open your lungs. If coughing hurts, hold a pillow against your chest or place both hands flat on top of your cut (splinting) when you cough. This may help with discomfort. ??? Use an incentive spirometer as told. This is a tool that measures how well you fill your lungs with each breath. ??? Do lung therapy (pulmonary rehabilitation) as told. Medicines ??? Take klss-pwo-kjgorrj or prescription medicines only as told by your doctor. ??? If you have pain, take pain-relieving medicine before your pain gets very bad. This will help you breathe and cough more comfortably. ??? If you were prescribed an antibiotic medicine, take it as told by your doctor. Do not stop taking the antibiotic even if you start to feel better. Activity ??? Ask your doctor what activities are safe for you. ??? Do not travel by airplane for 2 weeks after your chest tube is removed, or until your doctor says that this is safe. ??? Do not lift anything that is heavier than 10 lb (4.5 kg), or the limit that your doctor tells you, until he or she says that it is safe. ??? Do not drive until your doctor approves. ? Do not drive or use heavy machinery while taking prescription pain medicine. Incision care ??? Follow instructions from your doctor about how to take care of your cut from surgery (incision). Make sure you: ? Wash your hands with soap and water before you change your bandage (dressing). If you cannot use soap and water, use hand business analysis consultant. ? Change your bandage as told by your doctor. ? Leave stitches (sutures), skin glue, or skin tape (adhesive) strips in place. They may need to stay in place for 2 weeks or longer. If tape strips get loose and curl up, you may trim the loose edges. Do not remove tape strips completely unless your doctor says it is okay. ??? Keep your bandage dry. ??? Check your cut from surgery every day for signs of infection. Check for: ? More redness, swelling, or pain. ? More fluid or blood. ? Warmth. ? Pus or a bad smell. Bathing ??? Do not take baths, swim, or use a hot tub until your doctor approves. You may take showers. ??? After your bandage has been removed, use soap and water to gently wash your cut from surgery. Do not use anything else to clean your cut unless your doctor tells you to. Eating and drinking ??? Eat a healthy diet as told by your doctor. A healthy diet includes: ? Fresh fruits and vegetables. ? Whole grains. ? Low-fat (lean) proteins. ??? Drink enough fluid to keep your pee (urine) clear or pale yellow. General instructions ??? To prevent or treat trouble pooping (constipation) while you are taking prescription pain medicine, your doctor may recommend that you: ? Take cstg-ytt-syabgtq or prescription medicines. ? Eat foods that are high in fiber. These include fresh fruits and vegetables, whole grains, and beans. ? Limit foods that are high in fat and processed sugars, such as fried and sweet foods. ??? Do not use any products that contain nicotine or tobacco. These include cigarettes and e-cigarettes. If you need help quitting, ask your doctor. ??? Avoid secondhand smoke. ??? Wear compression stockings as told. These help to prevent blood clots and reduce swelling in your legs. ??? If you have a chest tube, care for it as told. ??? Keep all follow-up visits as told by your doctor. This is important. Contact a doctor if: ??? You have more redness, swelling, or pain around your cut from surgery. ??? You have more fluid or blood coming from your cut from surgery. ??? Your cut from surgery feels warm to the touch. ??? You have pus or a bad smell coming from your cut from surgery. ??? You have a fever or chills. ??? Your heartbeat seems uneven. ??? You feel sick to your stomach (nauseous). ??? You throw up (vomit). ??? You have muscle aches. ??? You have trouble pooping (having a bowel movement). This may mean that you: ? Poop fewer times in a week than normal. ? Have a hard time pooping. ? Have poop that is dry, hard, or bigger than normal. Get help right away if: ??? You get a rash. ??? You feel light-headed. ??? You feel like you might pass out (faint). ??? You are short of breath. ??? You have trouble breathing. ??? You are confused. ??? You have trouble talking. ??? You have problems with your seeing (vision). ??? You are not able to move. ??? You lose feeling (have numbness) in your: ? Face. ? Arms. ? Legs. ??? You pass out. ??? You have a sudden, bad headache. ??? You feel weak. ??? You have chest pain. ??? You have pain that: ? Is very bad. ? Gets worse, even with medicine. Summary ??? Take deep breaths, do breathing exercises, and cough often. This helps prevent lung infection (pneumonia). ??? Do not drive until your doctor approves. Do not travel by airplane for 2 weeks after your chest tube is removed, or until your doctor says that this is safe. ??? Check your cut from surgery every day for signs of infection. ??? Eat a healthy diet. This includes fresh fruits and vegetables, whole grains, and low-fat (lean) proteins. This information is not intended to replace advice given to you by your health care provider. Make sure you discuss any questions you have with your health care provider. Document Released: 11/08/2012 Document Revised: 02/01/2017 Document Reviewed: 02/01/2017 [employer] Patient Education ? 2019 [employer] Incentive Spirometer An incentive spirometer is a tool that measures how well you are filling your lungs with each breath. This tool can help keep your lungs clear and active. Taking long, deep breaths may help reverse or decrease the chance of developing breathing (pulmonary) problems, especially infection, following: ??? Surgery of the chest or abdomen. ??? Surgery if you have a history of smoking or a lung problem. ??? A long period of time when you are unable to move or be active. If the spirometer includes an indicator to show your best effort, your health care provider or respiratory therapist will help you set a goal. Keep a log of your progress if directed by your health care provider. What are the risks? Breathing too quickly may cause dizziness or cause you to pass out. Take your time so you do not get dizzy or lightheaded. ??? If you are in pain, you may need to take or ask for pain medicine before doing incentive spirometry. It is harder to take a deep breath if you are having pain. How to use your incentive spirometer 1. Sit on the edge of your bed if possible, or sit up as far as you can in bed or on a chair. 2. Hold the incentive spirometer in an upright position. 3. Breathe out normally. 4. Place the mouthpiece in your mouth and seal your lips tightly around it. 5. Breathe in slowly and as deeply as possible, raising the piston or the ball toward the top of the column. 6. Hold your breath for 3?5 seconds or for as long as possible. Allow the piston or ball to fall to the bottom of the column. 7. Remove the mouthpiece from your mouth and breathe out normally. 8. The spirometer may include an indicator to show your best effort. Use the indicator as a goal to work toward during each repetition. 9. Rest for a few seconds and repeat this at least 10 times, every 1?2 hours when you are awake. Take your time and take a few normal breaths between deep breaths. Breathing too quickly may cause dizziness or cause you to pass out. Take your time so you do not get dizzy or lightheaded. 10. After each set of 10 deep breaths, practice coughing to be sure your lungs are clear. If you had a surgical cut (incision) made during surgery, support your incision when coughing by placing a pillow or rolled-up towel firmly against it. Once you are able to get out of bed, walk around indoors and cough well. You may stop using the incentive spirometer when instructed by your health care provider. Contact a health care provider if: ??? You are having difficulty using the spirometer. ??? You have trouble using the spirometer as often as instructed. ??? Your pain medicine is not giving enough relief while using the spirometer. ??? You have a fever. ??? You develop shortness of breath. Get help right away if: ??? You develop a cough with bloody sputum. ??? You develop worsening pain, redness, or discharge at or near the incision site. This information is not intended to replace advice given to you by your health care provider. Make sure you discuss any questions you have with your health care provider. Document Released: 09/20/2007 Document Revised: 02/01/2017 Document Reviewed: 12/17/2014 [employer] Patient Education ? 2018 [employer]. Diabetes Mellitus and Sick Day Management Blood sugar (glucose) can be difficult to control when you are sick. Common illnesses that can cause problems for people with diabetes (diabetes mellitus) include colds, fever, flu (influenza), nausea, vomiting, and diarrhea. These illnesses can cause stress and loss of body fluids (dehydration), and those issues can cause blood glucose levels to increase. Because of this, it is very important to take your insulin and diabetes medicines and eat some form of carbohydrate when you are sick. You should make a plan for days when you are sick (sick day plan) as part of your diabetes management plan. You and your health care provider should make this plan in advance. The following guidelines are intended to help you manage an illness that lasts for about 24 hours or less. Your health care provider may also give you more specific instructions. What do I need to do to manage my blood glucose? Check your blood glucose every 2?4 hours, or as often as told by your health care provider. ??? Know your sick day treatment goals. Your target blood glucose levels may be different when you are sick. ??? If you use insulin, take your usual dose. ? If your blood glucose continues to be too high, you may need to take an additional insulin dose as told by your health care provider. ??? If you use oral diabetes medicine, you may need to stop taking it if you are not able to eat or drink normally. Ask your health care provider about whether you need to stop taking these medicines while you are sick. ??? If you use injectable hormone medicines other than insulin to control your diabetes, ask your health care provider about whether you need to stop taking these medicines while you are sick. What else can I do to manage my diabetes when I am sick? Check your ketones ??? If you have type 1 diabetes, check your urine ketones every 4 hours. ??? If you have type 2 diabetes, check your urine ketones as often as told by your health care provider. Drink fluids ??? Drink enough fluid to keep your urine clear or pale yellow. This is especially important if you have a fever, vomiting, or diarrhea. Those symptoms can lead to dehydration. ??? Follow any instructions from your health care provider about beverages to avoid. ? Do not drink alcohol, caffeine, or drinks that contain a lot of sugar. Take medicines as directed ??? Kmij-ioti-ter-counter and prescription medicines only as told by your health care provider. ??? Check medicine labels for added sugars. Some medicines may contain sugar or types of sugars that can raise your blood glucose level. What foods can I eat when I am sick? You need to eat some form of carbohydrates when you are sick. You should eat 45?50 grams (45?50 g) of carbohydrates every 3?4 hours until you feel better. All of the food choices below contain about 15 g of carbohydrates. Plan ahead and keep some of these foods around so you have them if you get sick. ??? 4?6 oz (120?177 mL) carbonated beverage that contains sugar, such as regular (not diet) soda. You may be able to drink carbonated beverages more easily if you open the beverage and let it sit at room temperature for a few minutes before drinking. ? of a twin frozen ice pop. ??? 4 oz (120 g) regular gelatin. ??? 4 oz (120 mL) fruit juice. ??? 4 oz (120 g) ice cream or frozen yogurt. ??? 2 oz (60 g) sherbet. ??? 8 oz (240 mL) clear broth or soup. ??? 4 oz (120 g) regular custard. ??? 4 oz (120 g) regular pudding. ??? 8 oz (240 g) plain yogurt. ??? 1 slice bread or toast. ??? 6 saltine crackers. ??? 5 vanilla wafers. Questions to ask your health care provider Consider asking the following questions so you know what to do on days when you are sick: ??? Should I adjust my diabetes medicines? How often do I need to check my blood glucose? What supplies do I need to manage my diabetes at home when I am sick? What number can I call if I have questions? What foods and drinks should I avoid? Contact a health care provider if: ??? You develop symptoms of diabetic ketoacidosis, such as: ? Fatigue. ? Weight loss. ? Excessive thirst. ? Light-headedness. ? Fruity or sweet-smelling breath. ? Excessive urination. ? Vision changes. ? Confusion or irritability. ? Nausea. ? Vomiting. ? Rapid breathing. ? Pain in the abdomen. ? Feeling flushed. ??? You are unable to drink fluids without vomiting. ??? You have any of the following for more than 6 hours: ? Nausea. ? Vomiting. ? Diarrhea. ??? Your blood glucose is at or above 240 mg/dL (13.3 mmol/L), even after you take an additional insulin dose. ??? You have a change in how you think, feel, or act (mental status). ??? You develop another serious illness. ??? You have been sick or have had a fever for 2 days or longer and you are not getting better. Get help right away if: ??? Your blood glucose is lower than 54 mg/dL (3.0 mmol/L). ??? You have difficulty breathing. ??? You have moderate or high ketone levels in your urine. ??? You used emergency glucagon to treat low blood glucose. Summary ??? Blood sugar (glucose) can be difficult to control when you are sick. Common illnesses that can cause problems for people with diabetes (diabetes mellitus) include colds, fever, flu (influenza), nausea, vomiting, and diarrhea. ??? Illnesses can cause stress and loss of body fluids (dehydration), and those issues can cause blood glucose levels to increase. ??? Make a plan for days when you are sick (sick day plan) as part of your diabetes management plan. You and your health care provider should make this plan in advance. ??? It is very important to take your insulin and diabetes medicines and to eat some form of carbohydrate when you are sick. ??? Contact your health care provider if have problems managing your blood glucose levels when you are sick, or if you have been sick or had a fever for 2 days or longer and are not getting better. This information is not intended to replace advice given to you by your health care provider. Make sure you discuss any questions you have with your health care provider. Document Released: 05/12/2004 Document Revised: 02/05/2017 Document Reviewed: 02/05/2017 [employer] Patient Education ? 2019 [employer] Steps to Quit Smoking Smoking tobacco can be bad for your health. It can also affect almost every organ in your body. Smoking puts you and people around you at risk for many serious long-lasting (chronic) diseases. Quitting smoking is hard, but it is one of the best things that you can do for your health. It is never too late to quit. What are the benefits of quitting smoking? When you quit smoking, you lower your risk for getting serious diseases and conditions. They can include: ??? Lung cancer or lung disease. ??? Heart disease. ??? Stroke. ??? Heart attack. ??? Not being able to have children (infertility). ??? Weak bones (osteoporosis) and broken bones (fractures). If you have coughing, wheezing, and shortness of breath, those symptoms may get better when you quit. You may also get sick less often. If you are , quitting smoking can help to lower your chances of having a baby of low weight. What can I do to help me quit smoking? Talk with your doctor about what can help you quit smoking. Some things you can do (strategies) include: ??? Quitting smoking totally, instead of slowly cutting back how much you smoke over a period of time. ??? Going to in-person counseling. You are more likely to quit if you go to many counseling sessions. ??? Using resources and support systems, such as: ? Online chats with a counselor. ? Phone quitlines. ? Printed self-help materials. ? Support groups or group counseling. ? Text messaging programs. ? Mobile phone apps or applications. ??? Taking medicines. Some of these medicines may have nicotine in them. If you are or , do not take any medicines to quit smoking unless your doctor says it is okay. Talk with your doctor about counseling or other things that can help you. Talk with your doctor about using more than one strategy at the same time, such as taking medicines while you are also going to in-person counseling. This can help make quitting easier. What things can I do to make it easier to quit? Quitting smoking might feel very hard at first, but there is a lot that you can do to make it easier. Take these steps: ??? Talk to your family and friends. Ask them to support and encourage you. ??? Call phone quitlines, reach out to support groups, or work with a counselor. ??? Ask people who smoke to not smoke around you. ??? Avoid places that make you want (trigger) to smoke, such as: ? Bars. ? Parties. ? Smoke-break areas at work. ??? Spend time with people who do not smoke. ??? Lower the stress in your life. Stress can make you want to smoke. Try these things to help your stress: ? Getting regular exercise. ? Deep-breathing exercises. ? Yoga. ? Meditating. ? Doing a body scan. To do this, close your eyes, focus on one area of your body at a time from head to toe, and notice which parts of your body are tense. Try to relax the muscles in those areas. ??? Download or buy apps on your mobile phone or tablet that can help you stick to your quit plan. There are many free apps, such as QuitGuide from the CDC (Centers for Disease Control and Prevention). You can find more support from smokefree.gov and other websites. This information is not intended to replace advice given to you by your health care provider. Make sure you discuss any questions you have with your health care provider. Document Released: 03/06/2010 Document Revised: 01/05/2017 Document Reviewed: 09/24/2015 [employer] Patient Education ? 2019 [employer] documented in this encounter Plan of Treatment Upcoming Encounters Date Type Department Care Team (Late st Contact Info) Description 05/14/2025 8:00 AM EST Lab Patient Walk[facility]In [facility] - [place] [place] [address] 05/14/2025 8:30 AM EST Appointment [facility] [address] [place] [address] Neptali Bergman MD [address] [facility] [address] [place] [address] 05/14/2025 10:00 AM EST Appointment [facility] MRI - [address] [place] [address] Neptali Bergman MD [address] [place] [address] 05/14/2025 2:15 PM EST Office Visit [facility] [place] [address] Neptali Bergman MD [address] [place] [address] [address] [place] [address] documented as of this encounter Visit Diagnoses Not on filedocumented in this encounter Care Teams Agile Coach Relationship Specialty Start Date End Date Jonas Navas MD [address] [facility] [address] [place] [address] PCP - General Cardiothoracic Surgery 04/15/22 07/23/22 Marcell Uriostegui MD [address] [facility] [address] [place] [address] PCP - General Adolescent Medicine 07/24/22 04/05/23 Heidi Rivers, ROMERO [address] [place] [address] PCP - General Nurse Practitioner 04/06/23 Neptali Bergman MD [address] [facility] [address] [place] [address] Hematology and Oncology 10/31/24 documented as of this encounter
--- OUTSIDE RECORDS SUMMARY | 2025-04-30 09:21 | XMS_ITS | Encounter Summary ---
Author Organization [employer] ([place], [place], [place], [place], [place]) Address [address] [place] [address] Care Team Providers Care Ship'S Captain Name Role Phone Jonas Navas MD Primary Care Provider [phone] Marcell Uriostegui MD Primary Care Provider + [phone] Heidi Rivers APRN Primary Care Provider + [phone] Neptali Bergman MD Unavailable [phone] Encounter Details Date Type Department Care Team (Late st Contact Info) Description 08/01/2019 Transcribed Document [facility] [address] ProviderJennifer MD [address] [place] [address] Social History Tobacco Use Types Packs/Day Years Used Date Smoking Tobacco: Never Assessed Comments Unknown Sex and Gender Information Value Date Recorded Sex Assigned at Not on file Legal Sex Female 1:09 PM CDT Gender Identity Not on file Sexual Orientation Not on file documented as of this encounter Miscellaneous Notes * Cerner Conversion Note - Jennifer ProviderMD - 08/01/2019 5:00 AM CDT Chart Check - Review Order Profile Entered On: 08/01/2019 4:35 EDT Performed On: 08/01/2019 5:00 EDT by Janis Pickens RN Chart Check All Active Orders Reviewed : Yes Janis Pickens RN - 08/01/2019 4:35 EDT Electronically signed by Hossein [facility] Conversion Occupational Health Nurse Supervisor Cerner at 09/10/2022 12:32 AM CDT documented in this encounter Plan of Treatment Upcoming Encounters Date Type Department Care Team (Late st Contact Info) Description 05/14/2025 8:00 AM EST Lab Patient Walk-In [facility] - [address] [address] 05/14/2025 8:30 AM EST Appointment [facility] - [address] [address] [place] [address] [place] [address] [address] [address] 05/14/2025 10:00 AM EST Appointment [facility] MRI - [address] [address] Neptali Bergman MD [address] [facility] [address] [address] 05/14/2025 2:15 PM EST Office Visit [facility] - [address] [address] Neptali Bergman MD [address] [facility] [address] [address] documented as of this encounter Visit Diagnoses Not on filedocumented in this encounter Care Teams Ship'S Captain Relationship Specialty Start Date End Date Jonas Navas MD 14[address] [facility] [address] [place] [address] PCP - General Cardiothoracic Surgery 04/15/22 07/23/22 Marcell Uriostegui MD [address] [place] [address] [place] [address] PCP - General Adolescent Medicine 07/24/22 04/05/23 Heidi Rivers, ROMERO [address] [facility] [address] [place] [address] PCP - General Nurse Practitioner 04/06/23 Neptali Bergman MD [address] [facility] [address] [address] Hematology and Oncology 10/31/24 documented as of this encounter
--- OUTSIDE RECORDS SUMMARY | 2025-04-30 09:21 | XMS_ITS | Encounter Summary ---
Author Organization [employer] ([place], [place], [place], [place], [place]) Address [address] [address] Care Team Providers Care Convertible Power Shovel Operator Name Role Phone Jonas Navas MD Primary Care Provider [phone] Marcell Uriostegui MD Primary Care Provider + [phone] Heidi Rivers APRN Primary Care Provider + [phone] Neptali Bergman MD Unavailable [phone] Encounter Details Date Type Department Care Team (Late st Contact Info) Description 07/31/[address] [facility] [place] [address] ProviderJennifer MD [address] [place] [address] Social History Tobacco Use Types Packs/Day Years Used Date Smoking Tobacco: Never Assessed Comments Unknown Sex and Gender Information Value Date Recorded Sex Assigned at Not on file Legal Sex Female 1:09 PM CDT Gender Identity Not on file Sexual Orientation Not on file documented as of this encounter Miscellaneous Notes * Cerner Conversion Note - Jennifer ProviderMD - 07/31/2019 5:00 PM CDT Chart Check - Review Order Profile Entered On: 07/31/2019 15:21 EDT Performed On: 07/31/2019 17:00 EDT by CHERI MUNIZ RN Chart Check Powerplans Initiated/Discontinued as Appropriate : Yes All Active Orders Reviewed : Yes CHERI MUNIZ RN - 07/31/2019 15:21 EDT documented in this encounter Plan of Treatment Upcoming Encounters Date Type Department Care Team (Late st Contact Info) Description 05/14/2025 8:00 AM EST Lab Patient Walk-In [facility] - [address] [place] [address] 05/14/2025 8:30 AM EST Appointment [facility] - [address] [place] [address] Neptali Bergman MD [address] [place] [address] 05/14/2025 10:00 AM EST Appointment [facility] MRI - [address] [place] [address] Neptali Bergman MD [address] [place] [address] 05/14/2025 2:15 PM EST Office Visit [facility] - [address] [place] [address] Neptali Bergman MD [address] [place] [address] documented as of this encounter Visit Diagnoses Not on filedocumented in this encounter Care Teams Convertible Power Shovel Operator Relationship Specialty Start Date End Date Jonas Navas MD [address] [facility] [address] [place] [address] PCP - General Cardiothoracic Surgery 04/15/22 07/23/22 Marcell Uriostegui MD [address] [place] [address] [place] [address] PCP - General Adolescent Medicine 07/24/22 04/05/23 Heidi Rivers, PIT BOSS 2017 [facility] [address] [place] [address] PCP - General Nurse Practitioner 04/06/23 Neptali Bergman MD [address] [facility] [address] [place] [address] Hematology and Oncology 10/31/24 documented as of this encounter
--- OUTSIDE RECORDS SUMMARY | 2025-04-30 09:21 | XMS_ITS | Encounter Summary ---
Author Organization [employer] ([place], [place], [place], [place], [place]) Address [address] [place] [address] Care Team Providers Care Aquatic Performer Name Role Phone Jonas Navas MD Primary Care Provider [phone] Marcell Uriostegui MD Primary Care Provider + [phone] Heidi Rivers APRN Primary Care Provider + [phone] Neptali Bergman MD Unavailable [phone] Encounter Details Date Type Department Care Team (Late st Contact Info) Description 08/02/2019 Transcribed Document [facility] [place] [facility] [place] [address] ProviderJennifer MD [address] [place] [address] Social History Tobacco Use Types Packs/Day Years Used Date Smoking Tobacco: Never Assessed Comments Unknown Sex and Gender Information Value Date Recorded Sex Assigned at Not on file Legal Sex Female 1:09 PM CDT Gender Identity Not on file Sexual Orientation Not on file documented as of this encounter Miscellaneous Notes * Cerner Conversion Note - Jennifer ProviderMD - 08/02/2019 5:00 AM CDT Chart Check - Review Order Profile Entered On: 08/02/2019 3:58 EDT Performed On: 08/02/2019 5:00 EDT by Janis Pickens RN Chart Check All Active Orders Reviewed : Yes Janis Pickens RN - 08/02/2019 3:58 EDT Electronically signed by Hossein [facility] Conversion Full Service Supervisor Cerner at 09/10/2022 12:36 AM CDT documented in this encounter Plan of Treatment Upcoming Encounters Date Type Department Care Team (Late st Contact Info) Description 05/14/2025 8:00 AM EST Lab Patient Walk[facility]In [facility] - [address] [place] [address] 05/14/2025 8:30 AM EST Appointment [facility] - [address] [place] [address] [place] [address] [place] [address] [address] [place] [address] 05/14/2025 10:00 AM EST Appointment [facility] MRI - [address] [place] [address] Neptali Bergman MD [address] [facility] [address] [place] [address] 05/14/2025 2:15 PM EST Office Visit [facility] - [address] [place] [address] [place] [address] [place] [address] [address] [place] [address] documented as of this encounter Visit Diagnoses Not on filedocumented in this encounter Care Teams Aquatic Performer Relationship Specialty Start Date End Date oJnas Navas MD 1401 [facility] [address] [place] [address] PCP - General Cardiothoracic Surgery 04/15/22 07/23/22 Marcell Uriostegui MD [address] [place] [address] PCP - General Adolescent Medicine 07/24/22 04/05/23 Heidi Rivers, ROMERO 2017 [facility] [address] [place] [address] PCP - General Nurse Practitioner 04/06/23 Neptali Bergman MD [address] [facility] [address] [place] [address] Hematology and Oncology 10/31/24 documented as of this encounter
--- NOTE | 2025-04-30 09:22 | CA_ITS ---
APPROVED REPORT EXAM: Comprehensive 2D, Doppler, and color-flow Echocardiogram Fluorescent Lighting Model Maker: Arlin Zaidi RT(R) Ht: 5 ft 1 in Wt: 145lbs BSA: 1.65 BP: 120/68 mmHg Indications: shortness of breath, hx [place], hx TIA, COPD, smoker 2D Dimensions LA Volume 27.60 mL LA Volume Index 16.73 mL/m2 (M/F) 16-34 EF AP4 72.90 % GL Strain -16.3 % M-Mode Dimensions RVDd 3.83 cm (0.9-2.6) LA Diam 3.35 cm (1.9-4.0) LVDd 4.51 cm (3.5-5.7) LVDs 3.22 cm (3.5-5.7) IVSd 0.87 cm (0.6-1.1) PWd 0.87 cm (0.6-1.1) EF (Teich) 55.20% FS 28.60% EDV (Teich) 92.90 mL ESV (Teich) 41.60 mL LV Diastology E Decel Time 177 (160-240 msec) E/A Ratio 0.4 Mitral Valve MV E Max Reggie. 54.0 (40-130 cm/s) MV A Velocity 125.0 (40-130 cm/s) E/A Ratio 0.43 MV PHT 52.0 ms Tricuspid Valve TR P. Velocity 451.00 cm/s RAP Estimate 10.00 mmHg RVSP 91.30 mmHg Left Ventricle The left ventricle is normal size. Left ventricular systolic function is normal. The left ventricular ejection fraction is within the normal range. There is increased left ventricular wall thickness. Septal flattening is present, consistent with right sided pressure/volume overload. The left ventricular diastolic function is normal. LVEF is 60% Right Ventricle The right ventricle is severely dilated. The right ventricular systolic is moderately to severely reduced. Atria Left atrium is mildly dilated. Right atrium is moderately dilated. There is no color Doppler evidence of interatrial shunt. Aortic Valve The aortic valve is mildly thickened. There is no hemodynamically significant aortic valvular stenosis. Trace aortic regurgitation is present. Mitral Valve The mitral valve is mildly thickened. No evidence of mitral valve stenosis. Mild mitral regurgitation is present. Tricuspid Valve The tricuspid valve leaflets are thin and pliable. Moderate tricuspid regurgitation. RVSP > 60 mmHg. Pulmonic Valve The pulmonary valve is grossly normal in structure. Trace pulmonic valve regurgitation is present. Great Vessels The aortic root is normal in size. IVC is normal in size and collapses >50% with inspiration. Pericardium There is no pericardial effusion. Other Information Study Quality: Fair Conclusion Normal LV systolic function. Septal flattening is present, consistent with right sided pressure/volume overload. Severe RV dilation with moderate to severe RV dilation. Moderate TR. Mild MR. Markedly elevated RVSP > 60 mmHg. Further evaluation for RV dysfunction is recommended. Electronically signed by : Eden Varghese MD 05/05/2025 16:31:50
--- OUTSIDE RECORDS SUMMARY | 2025-04-30 09:22 | XMS_ITS | Encounter Summary ---
Author Organization [employer] ([place], [place], [place], [place], [place]) Address [address] [place] [address] Care Team Providers Care Hardware Designer Name Role Phone Jonas Navas MD Primary Care Provider [phone] Marcell Uriostegui MD Primary Care Provider + [phone] Heidi Rivers APRN Primary Care Provider + [phone] Neptali Bergman MD Unavailable [phone] Encounter Details Date Type Department Care Team (Late st Contact Info) Description 08/02/2019 Transcribed Document [facility] [place] [address] ProviderJennifer MD [address] [place] [address] Social History Tobacco Use Types Packs/Day Years Used Date Smoking Tobacco: Never Assessed Comments Unknown Sex and Gender Information Value Date Recorded Sex Assigned at Not on file Legal Sex Female 1:09 PM CDT Gender Identity Not on file Sexual Orientation Not on file documented as of this encounter Miscellaneous Notes * Cerner Conversion Note - Jennifer ProviderMD - 08/02/2019 1:11 PM CDT UM Authorization Entered On: 08/02/2019 13:11 EDT Performed On: 08/02/2019 13:11 EDT by SURENDRA FRANK Rn-Utilization Review Primary Insurance Authorization Authorization and Policy Numbers : Insurance 1 Health Plan: [employer] Policy Number: [id number] Authorization Number: [id number] [facility] Policy Number: [id number] Authorization Status-Primary : Awaiting callback Authorization Number-Primary : [id number] Number of Days Authorized-Primary : 3 Day(s) Authorized Service Begin Date-Primary : 07/25/2019 EST Authorized Service End Date-Primary : 07/28/2019 EST Authorization Comments-Primary : Faxed clinicals via [employer] on 07/30 and 08/01. Historical Authorization Comments-Primary : Comment 1: [place] approved per availity for 4 days inpt (NORI VALVERDE, RN-Utilization Review 07/21/2019 13:39) SURENDRA FRANK Rn-Utilization Review - 08/02/2019 13:11 EDT Electronically signed by Hossein [facility] Conversion Sports Specialist Cerner at 09/10/2022 12:47 AM CDT documented in this encounter Plan of Treatment Upcoming Encounters Date Type Department Care Team (Late st Contact Info) Description 05/14/2025 8:00 AM EST Lab Patient Walk-In [place] [facility] - [address] [place] [address] 05/14/2025 8:30 AM EST Appointment [facility] CT - [facility] [address] [facility] [address] [place] [address] Neptali Bergman MD [address] [place] [address] [address] [place] [address] 05/14/2025 10:00 AM EST Appointment [facility] - [facility] [address] [facility] [address] [place] [address] Neptali Bergman MD [address] [place] [address] 05/14/2025 2:15 PM EST Office Visit [place] [facility] - [address] [place] [address] Neptali Bergman MD [facility] [address] [place] [address] [place] [address] documented as of this encounter Visit Diagnoses Not on filedocumented in this encounter Care Teams Hardware Designer Relationship Specialty Start Date End Date Jonas Navas MD 14[address] [facility] [address] [place] [address] PCP - General Cardiothoracic Surgery 04/15/22 07/23/22 Marcell Uriostegui MD 1210 [facility] [address] [place] [address] PCP - General Adolescent Medicine 07/24/22 04/05/23 Heidi Rivers APRN 2017 [facility] [address] [place] [address] PCP - General Nurse Practitioner 04/06/23 Neptali Bergman MD [address] [facility] [address] [place] [address] Hematology and Oncology 10/31/24 documented as of this encounter
--- OUTSIDE RECORDS SUMMARY | 2025-04-30 09:22 | XMS_ITS | Encounter Summary ---
Author Organization [employer] ([place], [place], [place], [place], [place]) Address [address] [place] [address] Care Team Providers Care Prototype Machine Operator Name Role Phone Jonas Navas MD Primary Care Provider [phone] Marcell Uriostegui MD Primary Care Provider + [phone] Heidi Rivers APRN Primary Care Provider + [phone] Neptali Bergman MD Unavailable Encounter Details Date Type Department Care Team (Late st Contact Info) Description 08/02/2019 Transcribed Document [facility] [place] [address] ProviderJennifer MD [address] [place] [address] Social History Tobacco Use Types Packs/Day [...] Jennifer ProviderMD - 08/02/2019 12:55 PM CDT Stroke/Warfarin Instructions Entered On: 08/02/2019 12:55 EDT Performed On: 08/02/2019 12:55 EDT by Heidi Matias RN Stroke/Warfarin Instructions Stroke/TIA Discharge Ins : N/A Warfarin Discharge Ins : N/A Heidi Matias RN - 08/02/2019 12:55 EDT documented in this encounter Plan of Treatment Upcoming Encounters Date Type Department Care Team (Late st Contact Info) Description 05/14/2025 8:00 AM EST Lab Patient Walk[facility]In [facility] - [address] [place] [address] 05/14/2025 8:30 AM EST Appointment [facility] CT - [address] [place] [address] Neptali Bergman MD [address] [facility] [address] [place] [address] 05/14/2025 10:00 AM EST Appointment [facility] MRI - [address] [place] [address] Neptail Bergman MD [address] [place] [address] [place] [address] 05/14/2025 2:15 PM EST Office Visit [facility] - [address] [place] [address] Neptali Bergman MD [address] [place] [address] documented as of this encounter Visit Diagnoses Not on filedocumented in this encounter Care Teams Prototype Machine Operator Relationship Specialty Start Date End Date Jonas Navas MD 1401 [facility] [address] [place] [address] PCP - General Cardiothoracic Surgery 04/15/22 07/23/22 Marcell Uriostegui MD [address] [place] [address] PCP - General Adolescent Medicine 07/24/22 04/05/23 Heidi Rivers, ROMERO 2017 [facility] [address] [place] [address] PCP - General Nurse Practitioner 04/06/23 Neptali Bergman MD [address] [facility] [address] [place] [address] Hematology and Oncology 10/31/24 documented as of this encounter
--- OUTSIDE RECORDS SUMMARY | 2025-04-30 09:22 | XMS_ITS | Encounter Summary ---
Author Organization [employer] ([place], [place], [place], [place], [place]) Address [address] [place] [address] Care Team Providers Care Orchestra Musician Name Role Phone Jonas Navas MD Primary Care Provider [phone] Marcell Uriostegui MD Primary Care Provider [phone] Heidi Rivers APRN Primary Care Provider [phone] Neptali Bergman MD Unavailable [phone] Encounter Details Date Type Department Care Team (Late st Contact Info) Description 12/08/2020 Transcribed Document [facility] [address] [place] [address] Clemente Currie MD [address] [place] [address] Social History Tobacco Use Types Packs/Day Years Used Date Smoking Tobacco: Never Assessed Comments Unknown Sex and Gender Information Value Date Recorded Sex Assigned at Not on file Legal Sex Female 1:09 PM CDT Gender Identity Not on file Sexual Orientation Not on file documented as of this encounter Miscellaneous Notes * Cerner Conversion Note - Clemente Currie MD - 12/08/2020 8:22 AM EDT Patient: ALEJANDRINA YEH Age: 65 years Sex: Female : 1955 Associated Diagnoses: None Author: CLEMENTE CURRIE MD-INT Subjective Chief complaint. Monday, December 07, 2020. No fevers or chills patient's Ti Yeh is at the bedside. Patient is able to state her full name date of 1955. She states that she is 65 that is November 2020 she knows she is at [facility] she does not remember the name of the current president. 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 She does complain of a headache. states that Dr. Dexter Mendez performed [employer] in August. He also states she gets confused when she has urinary tract infections. Patient denies any fevers or chills. No chest pain palpitations. No shortness of breath coughing wheezing. No nausea vomiting. Tuesday, December 08, 2020. No fevers or chills this morning. Patient's Ti Yeh is at the bedside he states that her mental status is much improved. She denies any fevers or chills. No chest pain palpitations. No shortness of breath coughing wheezing. No nausea vomiting. She states she still has a little bit of a headache But not severe. He states that her hallucinations have resolved. She states her hallucinations have resolved. She has not received the MRI that was ordered yesterday by Neptali Bergman with hematology oncology. Discussed with patient's nurse at the bedside asked her to call radiology make stat if necessary in order to get the MRI done sometime today. Review of Systems Constitutional: Decreased activity, No fever, No chills. Respiratory: No shortness of breath, No cough. Cardiovascular: No chest pain, No palpitations. Gastrointestinal: No nausea, No vomiting, No diarrhea, No constipation. Genitourinary: No dysuria. Neurologic: Alert and oriented X4, Confusion, Headache. Psychiatric: Hallucinations, No anxiety, No depression. Health Status Allergies: Allergic Reactions (Selected) Severity Not Documented Anoro Ellipta- Chest pain. Corgard- Unknown. DilTIAZem- Unknown. Levaquin- Vomiting. Roxicet- Unknown. Stiolto Respimat 10 ACT- Chest pain and muscle weakness (generalized)., Allergies (6) Active Reaction Anoro Ellipta Chest pain Corgard Unknown dilTIAZem Unknown Levaquin Vomiting Roxicet Unknown Stiolto Respimat 10 ACT Chest pain Problem list: Medical CA - Lung cancer adenocarcinoma / SNOMED CT 9986584616 / Confirmed Claustrophobia / SNOMED CT 43666500 / Confirmed Diabetes mellitus type II / SNOMED CT 09209843 / Confirmed Diverticulosis / SNOMED CT 6843526550 / Confirmed Shortness of breath / SNOMED CT 671856849 / Confirmed GERD - Gastro-esophageal reflux disease / SNOMED CT 7146772101 / Confirmed Hiatal hernia / SNOMED CT 938186818 / Confirmed History of obstructive sleep apnea / IMO 58013013 / Confirmed Inactive: Seasonal allergies / SNOMED CT 2132637617 Canceled: Chronic cough / SNOMED CT 492666077 Canceled: History of obstructive sleep apnea - no c-pap / IMO [id number] Canceled: History of obstructive sleep apnea / IMO [id number] Canceled: Current every day smoker / SNOMED CT 3674852015, Active Problems (18) Arthritis Back pain CA - Lung cancer adenocarcinoma 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 Claustrophobia Coronary artery disease s/p PR Diabetes mellitus type II Diverticulosis GERD - Gastro-esophageal reflux disease H/O: TIA Hiatal hernia High blood pressure History of obstructive sleep apnea Hyperlipidemia Migraine Shortness of breath Sinusitis Sleep apnea no c-pap Current medications: (Selected) Inpatient Medications Ordered Alimta + Sodium Chloride 0.9% intravenous solution 100 mL: 895 mg, 876 mL/Hr, IV Piggyback, 1-Time Alimta + Sodium Chloride 0.9% intravenous solution 100 mL: 895 mg, 876 mL/Hr, IV Piggyback, 1-Time CARBOplatin + Sodium Chloride 0.9% intravenous solution 250 mL: 480 mg, 48 mL, 666 mL/Hr, IV Piggyback, 1-Time CARBOplatin + Sodium Chloride 0.9% intravenous solution 250 mL: 480 mg, 48 mL, 666 mL/Hr, IV Piggyback, 1-Time Dilaudid: 1 mg, IV Push, Q6H, PRN: Pain (Severe 7-10) DuoNeb 0.5 mg-2.5 mg/3 mL inhalation solution: 3 mL, Nebulized Inhalation, Q6H, PRN: Shortness of Breath DuoNeb 0.5 mg-2.5 mg/3 mL inhalation solution: 3 mL, Nebulized Inhalation, RT_Q6H Emend for Injection + Sodium Chloride 0.9% intravenous solution 150 mL: 150 mg, 300 mL/Hr, IV Piggyback, 1-Time Emend for Injection + Sodium Chloride 0.9% intravenous solution 150 mL: 150 mg, 300 mL/Hr, IV Piggyback, 1-Time Keytruda + Sodium Chloride 0.9% intravenous solution 100 mL: 200 mg, 8 mL, 236 mL/Hr, IV Piggyback, 1-Time Keytruda + Sodium Chloride 0.9% intravenous solution 100 mL: 200 mg, 8 mL, 236 mL/Hr, IV Piggyback, 1-Time Pepcid + Sodium Chloride 0.9% intravenous solution 50 mL: 20 mg, 2 mL, 180 mL/Hr, IV Piggyback, 1-Time Pepcid + Sodium Chloride 0.9% intravenous solution 50 mL: 20 mg, 2 mL, 180 mL/Hr, IV Piggyback, 1-Time Pepcid + Sodium Chloride 0.9% intravenous solution 50 mL: 20 mg, 2 mL, 180 mL/Hr, IV Piggyback, 1-Time Pepcid + Sodium Chloride 0.9% intravenous solution 50 mL: 20 mg, 2 mL, 180 mL/Hr, IV Piggyback, 1-Time Pepcid: 20 mg, Oral, BID Phenergan: 6.25 mg, IntraVENous, Q6H, PRN: Nausea Pulmicort Respules: 0.5 mg, Nebulized Inhalation, RT_BID SEROquel: 25 mg, Oral, BID Sodium Chloride 0.9% intravenous solution: 250 mL, 50 mL/Hr, IntraVENous, 1-Time Sodium Chloride 0.9% intravenous solution: 250 mL, 50 mL/Hr, IntraVENous, 1-Time Sodium Chloride 0.9% intravenous solution: 250 mL, 50 mL/Hr, IntraVENous, 1-Time Sodium Chloride 0.9% intravenous solution: 250 mL, 50 mL/Hr, IntraVENous, 1-Time Vitamin B-12: 1,000 mcg, IntraMuscular, 1-Time Vitamin B-12: 1,000 mcg, IntraMuscular, 1-Time Xanax: 0.5 mg, Oral, BID, PRN: Anxiety Zofran: 4 mg, IV Push, Q4H, PRN: Nausea Zosyn + Sodium Chloride 0.9% intravenous solution 100 mL: 3.375 Gram, 33.33 mL/Hr, IV Piggyback, Q6HInt acetaminophen-HYDROcodone 325 mg-5 mg oral tablet: 1 Tab, Oral, Q12H, PRN: Pain (Moderate 4-6) bevacizumab: 316 mL/Hr, IV Piggyback, 1-Time bevacizumab: 316 mL/Hr, IV Piggyback, 1-Time calcium gluconate + Sodium Chloride 0.9% intravenous solution 50 mL: 2 Gram, 20 mL, 140 mL/Hr, IV Piggyback, Daily, PRN: Other (See Comment) calcium gluconate + Sodium Chloride 0.9% intravenous solution 50 mL: 2 Gram, 20 mL, 140 mL/Hr, IV Piggyback, Q12H, PRN: Other (See Comment) calcium gluconate: 1 Gram, 10 mL, 60 mL/Hr, IV Piggyback, Daily, PRN: Other (See Comment) cloNIDine: 0.1 mg, Oral, Q4H, PRN: Hypertension diphenhydrAMINE: 25 mg, IV Push, 1-Time diphenhydrAMINE: 25 mg, IV Push, 1-Time diphenhydrAMINE: 25 mg, IV Push, 1-Time diphenhydrAMINE: 25 mg, IV Push, 1-Time doxycycline + Sodium Chloride 0.9% intravenous solution 100 mL: 100 mg, 50 mL/Hr, IV Piggyback, [id number] granisetron: 1 mg, IV Push, 1-Time granisetron: 1 mg, IV Push, 1-Time granisetron: 1 mg, IV Push, 1-Time granisetron: 1 mg, IV Push, 1-Time heparin: 5,000 Units, SubCutaneous, Q8H hydrALAZINE: 10 mg, IV Push, Q3H, PRN: Hypertension ibuprofen: 200 mg, Oral, Q8H, PRN: Pain (Severe 7-10) insulin lispro sliding scale: Scale C:, SubCutaneous, AC and at Bedtime magnesium sulfate: 2 Gram, 50 mL, 25 mL/Hr, IV Piggyback, Daily, PRN: Other (See Comment) magnesium sulfate: 2 Gram, 50 mL, 25 mL/Hr, IV Piggyback, Q2H, PRN: Other (See Comment) potassium chloride 10 mEq/50 mL intravenous solution: 10 mEq, 50 mL, 50 mL/Hr, IV Piggyback, Q1H, PRN: Other (See Comment) potassium chloride 20 mEq oral tablet, extended release: 20 mEq, 1 Tab, Oral, Q2H, PRN: Other (See Comment) potassium chloride 20 mEq oral tablet, extended release: 60 mEq, 3 Tab, Oral, Q2H, PRN: Other (See Comment) predniSONE: 40 mg, Oral, Daily sodium phosphate: 15 mMole, 5 mL, 50 mL/Hr, IV Piggyback, Daily, PRN: Other (See Comment) sodium phosphate: 15 mMole, 5 mL, 50 mL/Hr, IV Piggyback, Q6H, PRN: Other (See Comment) Documented Medications Documented Albuterol (Eqv-ProAir HFA) 90 mcg/inh inhalation aerosol: 2 Puff, Inhalation, Q6H, PRN: Wheezing, 0 Refill(s) DuoNeb 0.5 mg-2.5 mg/3 mL inhalation solution: 3 mL, Nebulized Inhalation, Q6H, 0 Refill(s) Lipitor 40 mg oral tablet: 1 Tab, Oral, At Bedtime, 0 Refill(s) PriLOSEC 20 mg oral delayed release capsule: 1 Cap, Oral, Daily, 540 Cap, 0 Refill(s) Xanax 0.5 mg oral tablet: 1 Tab, Oral, BID, PRN: for anxiety, 0 Refill(s) aspirin 325 mg oral delayed release tablet: 1 Tab, Oral, Daily, 120 Tab, 0 Refill(s) fluticasone 50 mcg/inh nasal spray: 2 Senath, Nasal, Daily, PRN: Nasal Congestion, 0 Refill(s) folic acid 1 mg oral tablet: 1 Tab, Oral, Daily, 0 Refill(s) hydroCHLOROthiazide-lisinopril 25 mg-20 mg oral tablet: 1 Tab, Oral, Daily, 30 Tab, 0 Refill(s) ondansetron 8 mg oral tablet: 1 Tab, Oral, TID, PRN: Nausea/Vomiting, 9 Tab, 0 Refill(s) predniSONE 10 mg oral tablet: 2 Tab, Oral, Daily, 40 Tab, 0 Refill(s), Home Medications (11) Active Albuterol (Eqv-ProAir HFA) 90 mcg/inh inhalation aerosol 2 Puff, PRN, Inhalation, Q6H aspirin 325 mg oral delayed release tablet 325 mg = 1 Tab, Oral, Daily DuoNeb 0.5 mg-2.5 mg/3 mL inhalation solution 3 mL, Nebulized Inhalation, Q6H fluticasone 50 mcg/inh nasal spray 2 Senath, PRN, Nasal, Daily folic acid 1 mg oral tablet 1 mg = 1 Tab, Oral, Daily hydroCHLOROthiazide-lisinopril 25 mg-20 mg oral tablet 1 Tab, Oral, Daily Lipitor 40 mg oral tablet 40 mg = 1 Tab, Oral, At Bedtime ondansetron 8 mg oral tablet 8 mg = 1 Tab, PRN, Oral, TID predniSONE 10 mg oral tablet 20 mg = 2 Tab, Oral, Daily PriLOSEC 20 mg oral delayed release capsule 20 mg = 1 Cap, Oral, Daily Xanax 0.5 mg oral tablet 0.5 mg = 1 Tab, PRN, Oral, BID , Medications (28) Active Scheduled: (9) albuterol-ipratropium inh 3 mL 3 mL, Nebulized Inhalation, RT_Q6H budesonide 0.5 mg/2 mL inh susp 0.5 mg 2 mL, Nebulized Inhalation, RT_BID doxycycline hyclate + NaCl 0.9% 100 mL 100 mg, IV Piggyback, [id number] famotidine 20 mg tab 20 mg 1 Tab, Oral, BID heparin 5,000 units/1 mL inj 5,000 Units 1 mL, SubCutaneous, Q8H insulin lispro 1 unit/0.01 mL inj Scale C:, SubCutaneous, AC and at Bedtime piperacillin-tazobactam + NaCl 0.9% 100 mL 3.375 Gram, IV Piggyback, Q6HInt predniSONE 20 mg tab 40 mg 2 Tab, Oral, Daily QUEtiapine 25 mg tab 25 mg 1 Tab, Oral, BID Continuous: (0) PRN: (19) acetaminophen/HYDROcodone 325/5 mg tab 1 Tab, Oral, Q12H albuterol-ipratropium inh 3 mL 3 mL, Nebulized Inhalation, Q6H ALPRAZolam 0.5 mg tab 0.5 mg 1 Tab, Oral, BID calcium gluconate 1 Gram 10 mL, IV Piggyback, Daily calcium gluconate + NaCl 0.9% 50 mL 2 Gram 20 mL, IV Piggyback, Daily calcium gluconate + NaCl 0.9% 50 mL 2 Gram 20 mL, IV Piggyback, Q12H cloNIDine 0.1 mg tab 0.1 mg 1 Tab, Oral, Q4H hydrALAZINE 20 mg/1 mL inj 10 mg 0.5 mL, IV Push, Q3H HYDROmorphone 1 mg/1 mL inj 1 mg 1 mL, IV Push, Q6H ibuprofen 200 mg tab 200 mg 1 Tab, Oral, Q8H magnesium sulfate 2 Gram 50 mL, IV Piggyback, Daily magnesium sulfate 2 Gram 50 mL, IV Piggyback, Q2H ondansetron 4 mg/2 mL inj 4 mg 2 mL, IV Push, Q4H potassium chloride 10 mEq 50 mL, IV Piggyback, Q1H potassium chloride CR 20 mEq tab 20 mEq 1 Tab, Oral, Q2H potassium chloride CR 20 mEq tab 60 mEq 3 Tab, Oral, Q2H promethazine 25 mg/1 mL inj 6.25 mg 0.25 mL, IntraVENous, Q6H sodium phosphate 15 mMole 5 mL, IV Piggyback, Daily sodium phosphate 15 mMole 5 mL, IV Piggyback, Q6H Objective VS/Measurements Vitals Signs (last 24 hrs) Last Charted Minimum Maximum Temp 97.2 (DEC 08 05:33) 97.2 (DEC 08 05:33) 99.5 (DEC 07 20:00) Mon HR 88 (DEC 08 10:35) 51 (DEC 08 02:30) 114 (DEC 07 21:00) Resp Rate 16 (DEC 08 05:33) 16 (DEC 07 13:00) H 51 (DEC 07 11:56) SBP H 148 (DEC 08:33) 125 (DEC 08 02:30) H 154 (DEC 07 18:00) DBP 68 (DEC 08 05:33) 62 (DEC 07 18:00) 78 (DEC 07 20:00) MAP 120 (DEC 08 05:33) 89 (DEC 07 18:00) 120 (DEC 08 05:33) SpO2 96 (DEC 08 10:23) L 82 (DEC 07 14:00) 100 (DEC 07 12:00) Physical Examination VS/Measurements Vitals Signs (last 24 hrs) Last Charted Minimum Maximum Temp 97.2 (DEC 08 05:33) 97.2 (DEC 08 05:33) 99.5 (DEC 07 20:00) Mon HR 88 (DEC 08 10:35) 51 (DEC 08 02:30) 114 (DEC 07 21:00) Resp Rate 16 (DEC 08 05:33) 16 (DEC 07 13:00) H 51 (DEC 07 11:56) SBP H 148 (DEC 08 05:33) 125 (DEC 08 02:30) H 154 (DEC 07 18:00) DBP 68 (DEC 08 05:33) 62 (DEC 07 18:00) 78 (DEC 07 20:00) MAP 120 (DEC 08 05:33) 89 (DEC 07 18:00) 120 (DEC 08 05:33) SpO2 96 (DEC 08 10:23) L 82 (DEC 07 14:00) 100 (DEC 07 12:00) , Measurements from flowsheet : Measurements 12/08/2020 5:00 EDT Height Source Chart Height Entry Format [place] Height/Length, WALLISIAN (ft) 5 ft Height/Length WALLISIAN 2 Inch CLINICALHEIGHT 157.48 cm Routine Weight Source Bed scale Routine Weight Entry Format [place] Routine Weight, Pounds 177 lb Routine Weight, Ounces 8 oz Routine Weight Calculation 80.68 kg Body Mass Index (BMI), Routine 32.53 kg/m2 Body Surface Area (BSA), Routine 1.82 m2 General: Alert and oriented, No acute distress, Alert oriented to name, date of , age, November 2020, [place]. .. Eye: Pupils are equal, round and reactive to light, Extraocular movements are intact. HENT: Normocephalic, Normal hearing. Neck: Supple, No jugular venous distention. Respiratory: Lungs are clear to auscultation, Breath sounds are equal. Cardiovascular: Normal rate, Regular rhythm. Gastrointestinal: Soft, Non-tender, Normal bowel sounds. Genitourinary: No costovertebral angle tenderness. Lymphatics: No lymphadenopathy neck, axilla, groin. Musculoskeletal: Normal range of motion. Integumentary: Dry, Intact. Neurologic: Alert, Oriented. Psychiatric: Cooperative, Appropriate mood & affect, Confusion agitation hallucinations per the patient's patient oriented to name date of age November 2020 [facility].. Review / Management Results review: Labs (Last four charted values) WBC 5.5 (NOV 18) 8.2 (NOV 17) 8.7 (NOV 16) 5.9 (NOV 15) HB L 7.8 (NOV 18) L 9.3 (NOV 17) L 8.2 (NOV 16) L 8.6 (NOV 15) HCT L 26.1 (NOV 18) L 30.7 (NOV 17) L 25.9 (NOV 16) L 27.2 (NOV 15) Plt L 55 (NOV 18) L 103 (NOV 17) L 119 (NOV 16) 166 (NOV 15) Na H 147 (NOV 18) 145 (NOV 17) 142 (NOV 16) 136 (NOV 15) K 3.5 (NOV 18) 3.9 (NOV 17) 3.6 (NOV 16) 3.9 (NOV 15) Cl 112 (NOV 18) 111 (NOV 17) 109 (NOV 16) 103 (NOV 15) CO2 32 (NOV 18) 31 (NOV 17) 29 (NOV 16) 27 (NOV 15) BUN H 31 (NOV 18) H 31 (NOV 17) H 23 (NOV 16) 17 (NOV 15) Cr 0.80 (NOV 18) 0.80 (NOV 17) 0.80 (NOV 16) 0.80 (NOV 15) Glu R 106 (NOV 18) H 122 (NOV 17) H 128 (NOV 16) H 166 (NOV 15) Ca 9.2 (NOV 18) 9.7 (NOV 17) 8.9 (NOV 16) 8.6 (NOV 15) Lactic 1.6 (NOV 16) 1.7 (NOV 15) 1.2 (NOV 14) 0.6 (NOV 14) PT 10.7 (NOV 15) 10.3 (NOV 14) INR 1.0 (NOV 15) 1.0 (NOV 14) AST 19 (NOV 18) 28 (NOV 17) 23 (NOV 16) 19 (NOV 15) ALT 40 (NOV 18) 50 (NOV 17) 38 (NOV 16) 38 (NOV 15) ALK P 57 (NOV 18) 77 (NOV 17) 68 (NOV 16) 75 (NOV 15) T Bili 0.5 (NOV 18) 0.6 (NOV 17) 0.7 (ANTHONY 16) 0.8 (DEC 05) PTN 6.5 (DEC 08) 7.7 (DEC 07) 6.8 (DEC 06) 6.7 (DEC 05) ALB L 3.0 (DEC 08) 3.5 (DEC 07) L 2.8 (DEC 06) L 2.5 (DEC 05) Lipase 81 (DEC 04) Troponin H 0.070 (DEC 04) H 0.165 (DEC 04) . Impression and Plan Acute respiratory failure. history of adenocarcinoma of lung, history of chronic obstructive pulmonary disease. required mechanical ventilation extubated -duoneb pulmicort #. History of lung cancer with metastasis. Followed by oncology. mets to brain cyberknife august by jie per -neptali bergman consutled -check MRi head given CADET #. Hypertension. Stable. # bacterial Pneumonia. -Broad IV antibiotics. Cultures negative to date. duonebs pulmicort -zosyn doxycycline # klebsiella pna UTI -pansenisitive -zosyn doxy for pna covers it Acute metbolic encephaopathy -multifactorial -prednisone, uti, mets to brain, icu psycosis -improving -MRI brain 12-08 #. Diabetes mellitus. --Glucose is well controlled -ssi q ac . #thrombocytopenia -platelt 213 to 190 to 166 to 119 to 103 to 55 -consult hematology -hold heparin -check hit , and smear #. Anemia. Stable-follow. -hg 8.6 to 8.2 to 7.8 #. COPD-acute exacerbation- weaning IV steroids. Continue inhaled bronchodilators. -prednsione 40 qd #. Visual hallucinations-could be due to pain medications or medicine use for sedation however I am concerned with the visual hallucinations that this could be withdrawal from benzodiazepines. She takes alprazolam at home. Iresume her alprazolam twice a day scheduled and see if this helps her symptoms -check mri #gi pro- pepcid #dvt prop- heparin sq Monday, December 07, 2020. 35 minutes spent on critical care patient ICU still with hallucinations confusions. Discussed is most likely multifactorial the patient's including urinary tract infection, steroids, benzodiazepine withdrawal, history of lung cancer with metastases to the brain, ICU psychosis. That being said she is able to state her name date of age 60 [address] [facility]. Recheck a CBC CMP in the morning hopefully as steroids get tapered down and she gets reoriented that the symptoms wall start to improve. Recheck a CBC, CMP, ABG in the morning. Tuesday, December 08, 2020. 32-minute spent on follow-up nice 65-year-old lady definitely less confused compared to yesterday still with a headache. Hallucinations seem to have resolved. MRI has been ordered given history of metastases to the brain its definitely worth rechecking especially given this persistent headache I think it is required. Hallucinations seem to have resolved very encouraging. Hemoglobin dropped slightly is warranted recheck a CBC tomorrow make sure she does not need any transfusions. After I left the patient called me to say that she had explosive diarrhea and so I asked the nurse to check stool for C. difficile and GI PCR to make sure she does have infectious process even though I suspect is secondary to antibiotics 1 to make sure she does not have C. difficile before we give her an Imodium. She is not getting any stool softeners. Let level also seems to be dropping so I have ordered a HIT antibody, stopped heparin and also ordered a peripheral smear, and I reconsulted hematology for their recommendations regarding the patient's low platelet count. [facility] dictation system used. Computer program makes numerous spelling grammar mistakes. If you have any questions or concerns do not hesitate call Dr. Clemente Patel at cell phone number [phone]. documented in this encounter Plan of Treatment Upcoming Encounters Date Type Department Care Team (Late st Contact Info) Description 05/14/2025 8:00 AM EST Lab Patient Walk-In [facility] - [place] [id number] [facility] [address] [place] [address] 05/14/2025 8:30 AM EST Appointment [facility] Imaging [facility] - [facility] [address] [facility] [address] [place] [address] Neptali Bergman MD [address] [facility] [address] [place] [address] 05/14/2025 10:00 AM EST Appointment [facility] - [address] [place] [address] Neptali Bergman MD [address] [facility] [address] [place] [address] 05/14/2025 2:15 PM EST Office Visit [facility] - [address] [place] [address] Neptali Bergman MD [address] [facility] [address] [place] [address] documented as of this encounter Visit Diagnoses Not on filedocumented in this encounter Care Teams Orchestra Musician Relationship Specialty Start Date End Date Jonas Navas MD [address] [facility] [address] [place] [address] PCP - General Cardiothoracic Surgery 04/15/22 07/23/22 Marcell Uriostegui MD [address] [place] [address] [place] [address] PCP - General Adolescent Medicine 07/24/22 04/05/23 Heidi Rivers, GALLEY COOK [address] [facility] [address] [place] [address] PCP - General Nurse Practitioner 04/06/23 Neptali Bergman MD [address] [place] [address] [address] [place] [address] Hematology and Oncology 10/31/24 documented as of this encounter
--- OUTSIDE RECORDS SUMMARY | 2025-04-30 09:22 | XMS_ITS | Encounter Summary ---
Author Organization [employer] ([place], [place], [place], [place], [place]) Address [address] [place] [address] Care Team Providers Care Air Pollution Specialist Name Role Phone Jonas Navas MD Primary Care Provider [phone] Marcell Uriostegui MD Primary Care Provider + [phone] Heidi Rivers APRN Primary Care Provider + [phone] Neptali Bergman MD Unavailable [phone] Encounter Details Date Type Department Care Team (Late st Contact Info) Description 12/09/2020 Transcribed Document [facility] [facility] [place] [address] ProviderJennifer MD [address] [place] [address] Social History Tobacco Use Types Packs/Day Years Used Date Smoking Tobacco: Never Assessed Comments Unknown Sex and Gender Information Value Date Recorded Sex Assigned at Not on file Legal Sex Female 1:09 PM CDT Gender Identity Not on file Sexual Orientation Not on file documented as of this encounter Miscellaneous Notes * Cerner Conversion Note - Jennifer Arroyo MD - 12/09/2020 4:13 PM CDT Patient Resource Center Entered On: 12/09/2020 16:14 EDT Performed On: 12/09/2020 16:13 EDT by Divya Macias, Email Marketing Intern Patient Resource Center Provider Status : EST Other Established Provider Name : CARLITOS AKERS Patient Phone Number : [phone] Patient Insurance Type : Commercial (ex. [place] PPO, [employer] HMO), Medicare Source of Referral : Case management Location of Patient : Case management referral Primary Care Scheduled : Yes Primary Care Scheduled Type : Non [facility] Primary Care Provider Name : CARLITOS AKERS Primary Care Appointment Date/Time : 12/17/2020 9:00 EDT Specialty Care Scheduled : Yes Specialty Type Scheduled2 : [facility] Pulmonology [facility] Pulmonology Provider Name : MILTON DING [facility] Appointment Date/Time : 01/28/2021 9:45 EDT Qualify for Diabetes and/or Nutrition Referral : No Wound Care Appointment Made : No Why Patient Visited ED- Specialty spent : Other How Patient Arrived at ED : Other Primary Language : [place] Patient Resource Center Comment : Patient needs follow up appointments. Called offices and scheduled appointments with Dr. Ding and Dr. Akers Follow Up Needed : No Divya Macias, Email Marketing Intern - 12/09/2020 16:13 EDT Electronically signed by [facility] Conversion Ethylene Plant Helper Cerner at 09/10/2022 12:36 AM CDT documented in this encounter Plan of Treatment Upcoming Encounters Date Type Department Care Team (Late st Contact Info) Description 05/14/2025 8:00 AM EST Lab Patient Walk-In [facility] - [address] [place] [address] 05/14/2025 8:30 AM EST Appointment [facility] [address] [place] [address] Neptali Bergman MD [address] [place] [address] 05/14/2025 10:00 AM EST [facility]ointment [facility] MRI - [address] [place] [address] Neptali Bergman MD [address] [place] [address] 05/14/2025 2:15 PM EST Office Visit [facility] - [address] [place] [address] Neptali Bergman MD [address] [facility] [address] [place] [address] documented as of this encounter Visit Diagnoses Not on filedocumented in this encounter Care Teams Air Pollution Specialist Relationship Specialty Start Date End Date Jonas Navas MD [address] [facility] [address] [place], [place] [id number] PCP - General Cardiothoracic Surgery 04/15/22 07/23/22 Marcell Uriostegui MD [address] [facility] [address] [place] [address] PCP - General Adolescent Medicine 07/24/22 04/05/23 Heidi Rivers, GAGE DESIGNER 2017 [facility] [address] [place] [address] PCP - General Nurse Practitioner 04/06/23 Neptali Bergman MD [address] [facility] [address] [place] [address] Hematology and Oncology 10/31/24 documented as of this encounter
--- OUTSIDE RECORDS SUMMARY | 2025-04-30 09:22 | XMS_ITS | Encounter Summary ---
Author Organization [employer] ([place], [place], [place], [place], [place]) Address [address] [place] [address] Care Team Providers Care Airfield Defence Guard Name Role Phone Jonas Navas MD Primary Care Provider [phone] Marcell Uriostegui MD Primary Care Provider + [phone] Heidi Rivers APRN Primary Care Provider + [phone] Neptali Bergman MD Unavailable [phone] Encounter Details Date Type Department Care Team (Late st Contact Info) Description 12/09/2020 Transcribed Document [facility] [place] [address] ProviderJennifer MD [address] [place] [address] Social History Tobacco Use Types Packs/Day Years Used Date Smoking Tobacco: Never Assessed Comments Unknown Sex and Gender Information Value Date Recorded Sex Assigned at Not on file Legal Sex Female 1:09 PM CDT Gender Identity Not on file Sexual Orientation Not on file documented as of this encounter Miscellaneous Notes * Cerner Conversion Note - Historical ProviderMD - 12/09/2020 2:47 PM CDT Discharge Summary, PT Entered On: 12/09/2020 14:48 EDT Performed On: 12/09/2020 14:47 EDT by ISMAEL CARRERA PT Discharge Summary Discharge Summary Provider Notified : Nursing, Physical Therapy Reason for Discharge : Other: No need for inpatient PTx as pt is going home. Discharge Summary Comment, PT : RN, Renée, requested PT eval IRLANDA so pt could go home. Pt was ind with supine to sit to stand and amb 120' with Rwx, using 3L of 02, which she uses at home. Safe to go home today. ISMAEL CARRERA, PT - 12/09/2020 14:47 EDT Electronically signed by [facility] Conversion Dietary Cook Cerner at 09/10/2022 12:32 AM CDT documented in this encounter Plan of Treatment Upcoming Encounters Date Type Department Care Team (Late st Contact Info) Description 05/14/2025 8:00 AM EST Lab Patient Walk-In [place] - [address] [place] [address] 05/14/2025 8:30 AM EST Appointment [facility] CT - [address] [facility] [address] [place] [address] Neptali Bergman MD [address] [place] [address] [address] [place] [address] 05/14/2025 10:00 AM EST Appointment [facility] MRI - [address] [facility] [address] [place] [address] Neptali Bergman MD [address] [place] [address] [address] [place] [address] 05/14/2025 2:15 PM EST Office Visit [facility] - [address] [place] [address] Neptali Bergman MD [address] [place] [address] [address] [place] [address] documented as of this encounter Visit Diagnoses Not on filedocumented in this encounter Care Teams Airfield Defence Guard Relationship Specialty Start Date End Date Jonas Navas MD [address] [facility] [address] [place] [id number] PCP - General Cardiothoracic Surgery 04/15/22 07/23/22 Marcell Uriostegui MD [address] [place] [address] [place] [address] PCP - General Adolescent Medicine 07/24/22 04/05/23 Heidi Rivers APRN [address] [facility] [address] [place] [address] PCP - General Nurse Practitioner 04/06/23 Neptali Bergman MD [address] [facility] [address] [place] [address] Hematology and Oncology 10/31/24 documented as of this encounter
--- OUTSIDE RECORDS SUMMARY | 2025-04-30 09:22 | XMS_ITS | Encounter Summary ---
Author Organization [employer] ([place], [place], [place], [place], [place]) Address [address] [place] [address] Care Team Providers Care Roll Slicing Machine Tender Name Role Phone Jonas Navas MD Primary Care Provider [phone] Marcell Uriostegui MD Primary Care Provider + [phone] Heidi Rivers APRN Primary Care Provider + [phone] Lu Bergman MD Unavailable [phone] Encounter Details Date Type Department Care Team (Late st Contact Info) Description 12/08/2020 Transcribed Document [facility] [place] Family Medicine [address] [place] [address] ProviderJennifer MD [address] [place] [address] Social History Tobacco Use Types Packs/Day Years Used Date Smoking Tobacco: Never Assessed Comments Unknown Sex and Gender Information Value Date Recorded Sex Assigned at Not on file Legal Sex Female 1:09 PM CDT Gender Identity Not on file Sexual Orientation Not on file documented as of this encounter Miscellaneous Notes * Cerner Conversion Note - Jennifer ProviderMD - 12/08/2020 11:13 AM CDT Patient: ALEJANDRINA YEH Age: 65 years Sex: Female : 1955 Associated Diagnoses: None Author: LU BERGMAN MD-ONC Attachments: None Subjective Chief complaint Chief complaint Diarrhea is significantly worse. Less confusion Health Status Allergies Allergies (6) Active Reaction Anoro Ellipta Chest pain Corgard Unknown dilTIAZem Unknown Levaquin Vomiting Roxicet Unknown Stiolto Respimat 10 ACT Chest pain Current medications Medications (27) Active Scheduled: (8) albuterol-ipratropium inh 3 mL 3 mL, Nebulized Inhalation, RT_Q6H budesonide 0.5 mg/2 mL inh susp 0.5 mg 2 mL, Nebulized Inhalation, RT_BID doxycycline hyclate + NaCl 0.9% 100 mL 100 mg, IV Piggyback, [id number] famotidine 20 mg tab 20 mg 1 Tab, Oral, BID insulin lispro 1 unit/0.01 mL inj Scale [...] mMole 5 mL, IV Piggyback, Q6H Objective General Alert and oriented No acute distress Eye Pupils are equal, round and reactive to light HENT Normocephalic Neck Supple Respiratory Lungs are clear to auscultation Respirations are non-labored Cardiovascular Normal rate Regular rhythm Gastrointestinal Soft Non-tender Impression and Plan Assessment and Plan Diagnosis Adenocarcinoma of lung metastatic. RAecent chemotherapy. 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 Resp failure-better. Loculated effusion-chronic on left Course Progressing as expected Orders MR of brain to follow up brain met. C diff toxin assay Discussed with patient and spouse. documented in this encounter Plan of Treatment Upcoming Encounters Date Type Department Care Team (Late st Contact Info) Description 05/14/2025 8:00 AM EST Lab Patient Walk-In [facility] - [address] [place] [address] 05/14/2025 8:30 AM EST Appointment [facility] CT - [facility] [address] [facility] [address] [place] [address] Lu Bergman MD [address] [place] [address] [address] [place] [address] 05/14/2025 10:00 AM EST Appointment [facility] MRI - [facility] [address] [facility] [address] [place] [address] [place] [address] [place] [address] [address] [place] [address] 05/14/2025 2:15 PM EST Office Visit [facility] - [address] [place] [address] Lu Bergman MD [address] [place] [address] [address] [place] [address] documented as of this encounter Visit Diagnoses Not on filedocumented in this encounter Care Teams Roll Slicing Machine Tender Relationship Specialty Start Date End Date Jonas Navas MD [address] [facility] [address] [place] [address] PCP - General Cardiothoracic Surgery 04/15/22 07/23/22 Marcell Uriostegui MD [address] [facility] [address] [place] [address] PCP - General Adolescent Medicine 07/24/22 04/05/23 Heidi Rivers APRN [address] [facility] [address] [place] [address] PCP - General Nurse Practitioner 04/06/23 Lu Bergman MD [facility] [address] [place] [address] Hematology and Oncology 10/31/24 documented as of this encounter
--- OUTSIDE RECORDS SUMMARY | 2025-04-30 09:22 | XMS_ITS | Encounter Summary ---
Author Organization [employer] ([place], [place], [place], [place], [place]) Address [address] [place] [address] Care Team Providers Care Flame Hardener Name Role Phone Jonas Navas MD Primary Care Provider [phone] Marcell Uriostegui MD Primary Care Provider [phone] Heidi Rivers APRN Primary Care Provider [phone] Lu Bergman MD Unavailable [phone] Encounter Details Date Type Department Care Team (Late st Contact Info) Description 12/09/2020 Transcribed Document [facility] [place] Family Medicine [facility] [place] [address] ProviderJennifer MD [address] [place] [address] Social History Tobacco Use Types Packs/Day Years Used Date Smoking Tobacco: Never Assessed Comments Unknown Sex and Gender Information Value Date Recorded Sex Assigned at Not on file Legal Sex Female 1:09 PM CDT Gender Identity Not on file Sexual Orientation Not on file documented as of this encounter Miscellaneous Notes * Cerner Conversion Note - Jennifer ProviderMD - 12/09/2020 5:05 PM CDT [facility] [place] [address] ALEJANDRINA YEH :1955 Visit Time:2020 Your Visit Summary Your Care Team Admitting Physician - HAJA YUAN, DO-INT Attending Physician - ELLYN NEVAREZ MD Your Diagnosis Acute hypoxemic respiratory failure, Acute hypoxemic respiratory failure What to do next Instructions From Your Care Team STOP the following medications: STOP Lisinopril / HCTZ --- Follow up with pensionholder information clerk STOP Any Prednisone you have at home. You have been given a new prescription for prednisone. Discharge Activity: No strenuous activities Discharge Diet: Resume usual diet as tolerated Follow-Up Appointments Follow Up with MILTON OH MD When 01/28/2021 09:45 AM EDT Comments Pulmonology follow up Appointment has been made Bring discharge instructions with you Where: [address] [facility] [address] [place] [address]- Follow Up with CARLITOS SOTO When 12/17/2020 09:00 AM EDT Comments PCP follow up Appointment has been made Bring discharge instructions with you Where: [address] [facility] [address] [place] [address] Follow Up with LU BERGMAN MD-ONC When Within 2 to 4 weeks, only if needed [facility] [address] [facility] [employer] [facility] [address] [place] [address]- Medications What How Much When Instructions Next Dose sulfamethoxazole-trimethoprim (Bactrim DS 800 mg-160 mg oral tablet) 1 Tablet(s) Oral Wednesday, Wednesday, Wednesday while on steroids. Printed Prescription Wednesday predniSONE (predniSONE 10 mg oral tablet) See instructions Take 40 mg daily x 7 days, then 30 mg daily x 7 days, then 20 mg daily x 7 days, then 10 mg daily x 7 days, then stop. Printed Prescription follow package instructions tomorrow albuterol (Albuterol (Eqv-ProAir HFA) 90 mcg/ inh inhalation aerosol) 2 Puff(s) Inhalation Every 6 Hours as needed for Wheezing as needed albuterol-ipratropium (DuoNeb 0.5 mg-2.5 mg/ 3 mL inhalation solution) 3 Milliliter(s) Nebulized Inhalation Every 6 Hours as needed ALPRAZolam (Xanax 0.5 mg oral tablet) 1 Tablet(s) Oral Two Times A Day as needed for for anxiety tonight aspirin (aspirin 325 mg oral delayed release tablet) 1 Tablet(s) Oral Every Day tomorrow atorvastatin (Lipitor 40 mg oral tablet) 1 Tablet(s) Oral At Bedtime bedtime fluticasone nasal (fluticasone 50 mcg/ inh nasal spray) 2 Ganado(s) Nasal Every Day as needed for Nasal Congestion as needed folic acid (folic acid 1 mg oral tablet) 1 Tablet(s) Oral Every Day tomorrow omeprazole (PriLOSEC 20 mg oral delayed release capsule) 1 Capsule(s) Oral Every Day tomorrow ondansetron (ondansetron 8 mg oral tablet) 1 Tablet(s) Oral Three Times A Day as needed for Nausea/Vomiting as needed Take your medications faithfully. Do NOT skip medication. Do NOT stop taking medications without the direction of a physician. Carry a list of your medications with you at all times, and take this medication list with you to your first follow up visit. Report any side effects. Avoid herbal remedies unless discussed with your physician. As part of your treatment plan, your physician may have prescribed a limited course of a controlled substance. This medication may be given to help people with moderate or severe pain or for other medical conditions, but there are risks involved with treatment. Common side effects may include nausea, constipation, drowsiness, sweating, itching, dry mouth, and rash. More serious side effects may include cognitive and motor impairment, like problems with thinking, concentrating, alertness, and movement (e.g. slowed reflexes), and driving and operating heavy machinery can be dangerous. It is important for you to talk to your physician if you have these side effects or questions. These controlled substances can produce physical dependence and be habit-forming if taken for an extended period of time, which means that the body has gotten used to them and may experience withdrawal symptoms if they are abruptly stopped. Withdrawal symptoms can include runny nose, sweating, goose bumps, diarrhea, abdominal cramping, rapid heartbeat, difficulty sleeping, and nervousness. Please dispose of unused and medications per your retail pharmacy guidance. Allergies Anoro Ellipta (Chest pain) Corgard (Unknown) Levaquin (Vomiting) Roxicet (Unknown) Stiolto Respimat 10 ACT (Muscle weakness (generalized), Chest pain) dilTIAZem (Unknown) Immunizations This Visit No Immunizations Found Education Materials Confusion Confusion is the inability to think with the usual speed or clarity. People who are confused often describe their thinking as cloudy or unclear. Confusion can also include feeling disoriented. This means you are unaware of where you are or who you are. You may also not know the date or time. When confused, you may have difficulty remembering, paying attention, or making decisions. Some people also act aggressively when they are confused. In some cases, confusion may come on quickly. In other cases, it may develop slowly over time. How quickly confusion comes on depends on the cause. Confusion may be caused by: ??? Head injury (concussion). ??? Seizures. ??? Stroke. ??? Fever. ??? Brain tumor. ??? Decrease in brain function due to a vascular or neurologic condition (dementia). ??? Emotions, like rage or terror. ??? Inability to know what is real and what is not (hallucinations). ??? Infections, such as a urinary tract infection (UTI). ??? Using too much alcohol, drugs, or medicines. ??? Loss of fluid (dehydration) or an imbalance of salts in the body (electrolytes). ??? Lack of sleep. ??? Low blood sugar (diabetes). ??? Low levels of oxygen. This comes from conditions such as chronic lung disorders. ??? Side effects of medicines, or taking medicines that affect other medicines (drug interactions). ??? Lack of certain nutrients, especially niacin, thiamine, vitamin C, or vitamin B. ??? Sudden drop in body temperature (hypothermia). ??? Change in routine, such as traveling or being hospitalized. Follow these instructions at home: Pay attention to your symptoms. Tell your health care provider about any changes or if you develop new symptoms. Follow these instructions to control or treat symptoms. Ask a family member or friend for help if needed. Medicines ??? Take eyei-tkv-xiselya and prescription medicines only as told by your health care provider. ??? Ask your health care provider about changing or stopping any medicines that may be causing your confusion. ??? Avoid pain medicines or sleep medicines until you have fully recovered. ??? Use a pillbox or an alarm to help you take the right medicines at the right time. Lifestyle ??? Eat a balanced diet that includes fruits and vegetables. ??? Get enough sleep. For most adults, this is 7???9 hours each night. ??? Do not drink alcohol. ??? Do not become isolated. Spend time with other people and make plans for your days. ??? Do not drive until your health care provider says that it is safe to do so. ??? Do not use any products that contain nicotine or tobacco, such as cigarettes and e-cigarettes. If you need help quitting, ask your health care provider. ??? Stop other activities that may increase your chances of getting hurt. These may include some work duties, sports activities, swimming, or bike riding. Ask your health care provider what activities are safe for you. What caregivers can do ??? Find out if the person is confused. Ask the person to state his or her name, age, and the date. If the person is unsure or answers incorrectly, he or she may be confused. ??? Always introduce yourself, no matter how well the person knows you. ??? Remind the person of his or her location. Do this often. ??? Place a calendar and clock near the person who is confused. ??? Talk about current events and plans for the day. ??? Keep the environment calm, quiet, and peaceful. ??? Help the person do the things that he or she is unable to do. These include: ? Taking medicines. ? Keeping follow-up visits with his or her health care provider. ? Helping with household duties, including meal preparation. ? Running errands. ??? Get help if you need it. There are several support groups for caregivers. ??? If the person you are helping needs more support, consider day care, extended care programs, or a fci facility. The person's health care provider may be able to help evaluate these options. General instructions ??? Monitor yourself for any conditions you may have. These may include: ? Checking your blood glucose levels, if you have diabetes. ? Watching your weight, if you are overweight. ? Monitoring your blood pressure, if you have hypertension. ? Monitoring your body temperature, if you have a fever. ??? Keep all follow-up visits as told by your health care provider. This is important. Contact a health care provider if: ??? Your symptoms get worse. Get help right away if you: ??? Feel that you are not able to care for yourself. ??? Develop severe headaches, repeated vomiting, seizures, blackouts, or slurred speech. ??? Have increasing confusion, weakness, numbness, restlessness, or personality changes. ??? Develop a loss of balance, have marked dizziness, feel uncoordinated, or fall. ??? Develop severe anxiety, or you have delusions or hallucinations. These symptoms may represent a serious problem that is an emergency. Do not wait to see if the symptoms will go away. Get medical help right away. Call your local emergency services (911 in the [place] Do not drive yourself to the hospital. Summary ??? Confusion is the inability to think with the usual speed or clarity. People who are confused often describe their thinking as cloudy or unclear. ??? Confusion can also include having difficulty remembering, paying attention, or making decisions. ??? Confusion may come on quickly or develop slowly over time, depending on the cause. There are many different causes of confusion. ??? Ask for help from family members or friends if you are unable to take care of yourself. This information is not intended to replace advice given to you by your health care provider. Make sure you discuss any questions you have with your health care provider. Document Revised: 05/12/2018 Document Reviewed: 05/12/2018 [employer] Patient Education ?? 2020 [employer] Home Oxygen Use, Adult When a medical condition keeps you from getting enough oxygen, your health care provider may instruct you to take extra oxygen at home. Your health care provider will let you know: ??? When to take oxygen. ??? For how long to take oxygen. ??? How quickly oxygen should be delivered (flow rate), in liters per minute (LPM or L/M). Home oxygen can be given through: ??? A mask. ??? A nasal cannula. This is a device or tube that goes in the nostrils. ??? A transtracheal catheter. This is a small, flexible tube placed in the trachea. ??? A tracheostomy. This is a surgically made opening in the trachea. These devices are connected with tubing to an oxygen source, such as: ??? A tank. Tanks hold oxygen in gas form. They must be replaced when the oxygen is used up. ??? A liquid oxygen device. This holds oxygen in liquid form. It must be replaced when the oxygen is used up. ??? An oxygen concentrator machine. This filters oxygen in the room. It uses electricity, so you must have a backup cylinder of oxygen in case the power goes out. Supplies needed: To use oxygen, you will need: ??? A mask, nasal cannula, transtracheal catheter, or tracheostomy. ??? An oxygen tank, a liquid oxygen device, or an oxygen concentrator. ??? The tape that your health care provider recommends (optional). If you use a transtracheal catheter and your prescribed flow rate is 1 LPM or greater, you will also need a humidifier. Risks and complications ??? Fire. This can happen if the oxygen is exposed to a heat source, flame, or spark. ??? Injury to skin. This can happen if liquid oxygen touches your skin. ??? Organ damage. This can happen if you get too little oxygen. How to use oxygen Your health care provider or a route service representative from your medical billing associate company will show you how to use your oxygen device. Follow her or his instructions. The instructions may look something like this: 1. Wash your hands. 2. If you use an oxygen concentrator, make sure it is plugged in. 3. Place one end of the tube into the port on the tank, device, or machine. 4. Place the mask over your nose and mouth. Or, place the nasal cannula and secure it with tape if instructed. If you use a tracheostomy or transtracheal catheter, connect it to the oxygen source as directed. 5. Make sure the liter-flow setting on the machine is at the level prescribed by your health care provider. 6. Turn on the machine or adjust the knob on the tank or device to the correct liter-flow setting. 7. When you are done, turn off and unplug the machine, or turn the knob to OFF. How to clean and care for the oxygen supplies Nasal cannula ??? Clean it with a warm, wet cloth daily or as needed. ??? Wash it with a liquid soap once a week. ??? Rinse it thoroughly once or twice a week. ??? Replace it every 2???4 weeks. ??? If you have an infection, such as a cold or pneumonia, change the cannula when you get better. Mask ??? Replace it every 2???4 weeks. ??? If you have an infection, such as a cold or pneumonia, change the mask when you get better. Humidifier bottle ??? Wash the bottle between each refill: ? Wash it with soap and warm water. ? Rinse it thoroughly. ? Disinfect it and its top. ? Air-dry it. ??? Make sure it is dry before you refill it. Oxygen concentrator ??? Clean the air filter at least twice a week according to directions from your home medical equipment and service company. ??? Wipe down the cabinet every day. To do this: ? Unplug the unit. ? Wipe down the cabinet with a damp cloth. ? Dry the cabinet. Other equipment ??? Change any extra tubing every 1???3 months. ??? Follow instructions from your health care provider about taking care of any other equipment. Safety tips Fire safety tips ??? Keep your oxygen and oxygen supplies at least 5 ft away from sources of heat, flames, and son at all times. ??? Do not allow smoking near your oxygen. Put up no smoking signs in your home. Avoid smoking areas when in public. ??? Do not use materials that can burn (are flammable) while you use oxygen. ??? When you go to a restaurant with portable oxygen, ask to be seated in the nonsmoking section. ??? Keep a fire extinguisher close by. Let your fire department know that you have oxygen in your home. ??? Test your home smoke detectors regularly. Traveling ??? Secure your oxygen tank in the vehicle so that it does not move around. Follow instructions from your medical billing associate company about how to safely secure your tank. ??? Make sure you have enough oxygen for the amount of time you will be away from home. ??? If you are planning air travel, contact the airline to find out if they allow the use of an approved portable oxygen concentrator. You may also need documents from your health care provider and medical billing associate company before you travel. General safety tips ??? If you use an oxygen cylinder, make sure it is in a stand or secured to an object that will not move (fixed object). ??? If you use liquid oxygen, make sure its container is kept upright. ??? If you use an oxygen concentrator: ? Tell your electric company. Make sure you are given priority service in the event that your power goes out. ? Avoid using extension cords, if possible. Follow these instructions at home: ??? Use oxygen only as told by your health care provider. ??? Do not use alcohol or other drugs that make you relax (sedating drugs) unless instructed. They can slow down your breathing rate and make it hard to get in enough oxygen. ??? Know how and when to order a refill of oxygen. ??? Always keep a spare tank of oxygen. Plan ahead for holidays when you may not be able to get a prescription filled. ??? Use water-based lubricants on your lips or nostrils. Do not use oil-based products like petroleum jelly. ??? To prevent skin irritation on your cheeks or behind your ears, tuck some gauze under the tubing. Contact a health care provider if: ??? You get headaches often. ??? You have shortness of breath. ??? You have a lasting cough. ??? You have anxiety. ??? You are sleepy all the time. ??? You develop an illness that affects your breathing. ??? You cannot exercise at your regular level. ??? You are restless. ??? You have difficult or irregular breathing, and it is getting worse. ??? You have a fever. ??? You have persistent redness under your nose. Get help right away if: ??? You are confused. ??? You have blue lips or fingernails. ??? You are struggling to breathe. Summary ??? Your health care provider or a route service representative from your medical billing associate company will show you how to use your oxygen device. Follow her or his instructions. ??? If you use an oxygen concentrator, make sure it is plugged in. ??? Make sure the liter-flow setting on the machine is at the level prescribed by your health care provider. ??? Keep your oxygen and oxygen supplies at least 5 ft away from sources of heat, flames, and sno at all times. This information is not intended to replace advice given to you by your health care provider. Make sure you discuss any questions you have with your health care provider. Document Revised: 10/27/2018 Document Reviewed: 12/01/2016 [employer] Patient Education ?? 2020 [employer]. Urinary Tract Infection, Adult A urinary tract infection (UTI) is an infection of any part of the urinary tract. The urinary tract includes the kidneys, ureters, bladder, and urethra. These organs make, store, and get rid of urine in the body. Your health care provider may use other names to describe the infection. An upper UTI affects the ureters and kidneys (pyelonephritis). A lower UTI affects the bladder (cystitis) and urethra (urethritis). What are the causes? Most urinary tract infections are caused by bacteria in your genital area, around the entrance to your urinary tract (urethra). These bacteria grow and cause inflammation of your urinary tract. What increases the risk? You are more likely to develop this condition if: ??? You have a urinary catheter that stays in place (indwelling). ??? You are not able to control when you urinate or have a bowel movement (you have incontinence). ??? You are female and you: ? Use a spermicide or diaphragm for control. ? Have low estrogen levels. ? Are . ??? You have certain genes that increase your risk (genetics). ??? You are sexually active. ??? You take antibiotic medicines. ??? You have a condition that causes your flow of urine to slow down, such as: ? An enlarged prostate, if you are male. ? Blockage in your urethra (stricture). ? A kidney stone. ? A nerve condition that affects your bladder control (neurogenic bladder). ? Not getting enough to drink, or not urinating often. ??? You have certain medical conditions, such as: ? Diabetes. ? A weak disease-fighting system (immunesystem). ? Sickle cell disease. ? Gout. ? Spinal cord injury. What are the signs or symptoms? Symptoms of this condition include: ??? Needing to urinate right away (urgently). ??? Frequent urination or passing small amounts of urine frequently. ??? Pain or burning with urination. ??? Blood in the urine. ??? Urine that smells bad or unusual. ??? Trouble urinating. ??? Cloudy urine. ??? Vaginal discharge, if you are female. ??? Pain in the abdomen or the lower back. You may also have: ??? Vomiting or a decreased appetite. ??? Confusion. ??? Irritability or tiredness. ??? A fever. ??? Diarrhea. The first symptom in older adults may be confusion. In some cases, they may not have any symptoms until the infection has worsened. How is this diagnosed? This condition is diagnosed based on your medical history and a physical exam. You may also have other tests, including: ??? Urine tests. ??? Blood tests. ??? Tests for sexually transmitted infections (STIs). If you have had more than one UTI, a cystoscopy or imaging studies may be done to determine the cause of the infections. How is this treated? Treatment for this condition includes: ??? Antibiotic medicine. ??? Uvqz-war-gjmqzqx medicines to treat discomfort. ??? Drinking enough water to stay hydrated. If you have frequent infections or have other conditions such as a kidney stone, you may need to see a health care provider who specializes in the urinary tract (urologist). In rare cases, urinary tract infections can cause sepsis. Sepsis is a life-threatening condition that occurs when the body responds to an infection. Sepsis is treated in the hospital with IV antibiotics, fluids, and other medicines. Follow these instructions at home: Medicines ??? Take kndr-bjw-csyhrzt and prescription medicines only as told by your health care provider. ??? If you were prescribed an antibiotic medicine, take it as told by your health care provider. Do not stop using the antibiotic even if you start to feel better. General instructions ??? Make sure you: ? Empty your bladder often and completely. Do not hold urine for long periods of time. ? Empty your bladder after sex. ? Wipe from front to back after a bowel movement if you are female. Use each tissue one time when you wipe. ??? Drink enough fluid to keep your urine pale yellow. ??? Keep all follow-up visits as told by your health care provider. This is important. Contact a health care provider if: ??? Your symptoms do not get better after 1???2 days. ??? Your symptoms go away and then return. Get help right away if you have: ??? Severe pain in your back or your lower abdomen. ??? A fever. ??? Nausea or vomiting. Summary ??? A urinary tract infection (UTI) is an infection of any part of the urinary tract, which includes the kidneys, ureters, bladder, and urethra. ??? Most urinary tract infections are caused by bacteria in your genital area, around the entrance to your urinary tract (urethra). ??? Treatment for this condition often includes antibiotic medicines. ??? If you were prescribed an antibiotic medicine, take it as told by your health care provider. Do not stop using the antibiotic even if you start to feel better. ??? Keep all follow-up visits as told by your health care provider. This is important. This information is not intended to replace advice given to you by your health care provider. Make sure you discuss any questions you have with your health care provider. Document Revised: 04/27/2019 Document Reviewed: 11/17/2018 [employer] Patient Education ?? 2020 [employer]. Diabetes Mellitus and Nutrition, Adult When you have diabetes (diabetes mellitus), it is very important to have healthy eating habits because your blood sugar (glucose) levels are greatly affected by what you eat and drink. Eating healthy foods in the appropriate amounts, at about the same times every day, can help you: ??? Control your blood glucose. ??? Lower your risk of heart disease. ??? Improve your blood pressure. ??? Reach or maintain a healthy weight. Every person with diabetes is different, and each person has different needs for a meal plan. Your health care provider may recommend that you work with a diet and family specialist (dietitian) to make a meal plan that is best for you. Your meal plan may vary depending on factors such as: ??? The calories you need. ??? The medicines you take. ??? Your weight. ??? Your blood glucose, blood pressure, and cholesterol levels. ??? Your activity level. ??? Other health conditions you have, such as heart or kidney disease. How do carbohydrates affect me? Carbohydrates, also called carbs, affect your blood glucose level more than any other type of food. Eating carbs naturally raises the amount of glucose in your blood. Carb counting is a method for keeping track of how many carbs you eat. Counting carbs is important to keep your blood glucose at a healthy level, especially if you use insulin or take certain oral diabetes medicines. It is important to know how many carbs you can safely have in each meal. This is different for every person. Your dietitian can help you calculate how many carbs you should have at each meal and for each snack. Foods that contain carbs include: ??? Bread, cereal, rice, pasta, and crackers. ??? Potatoes and corn. ??? Peas, beans, and lentils. ??? Milk and yogurt. ??? Fruit and juice. ??? Desserts, such as cakes, cookies, ice cream, and candy. How does alcohol affect me? Alcohol can cause a sudden decrease in blood glucose (hypoglycemia), especially if you use insulin or take certain oral diabetes medicines. Hypoglycemia can be a life-threatening condition. Symptoms of hypoglycemia (sleepiness, dizziness, and confusion) are similar to symptoms of having too much alcohol. If your health care provider says that alcohol is safe for you, follow these guidelines: ??? Limit alcohol intake to no more than 1 drink per day for non women and 2 drinks per day for men. One drink equals 12 oz of beer, 5 oz of wine, or 1?? oz of hard liquor. ??? Do not drink on an empty stomach. ??? Keep yourself hydrated with water, diet soda, or unsweetened iced tea. ??? Keep in mind that regular soda, juice, and other mixers may contain a lot of sugar and must be counted as carbs. What are tips for following this plan? Reading food labels ??? Start by checking the serving size on the Nutrition Facts label of packaged foods and drinks. The amount of calories, carbs, fats, and other nutrients listed on the label is based on one serving of the item. Many items contain more than one serving per package. ??? Check the total grams (g) of carbs in one serving. You can calculate the number of servings of carbs in one serving by dividing the total carbs by 15. For example, if a food has 30 g of total carbs, it would be equal to 2 servings of carbs. ??? Check the number of grams (g) of saturated and trans fats in one serving. Choose foods that have low or no amount of these fats. ??? Check the number of milligrams (mg) of salt (sodium) in one serving. Most people should limit total sodium intake to less than 2,300 mg per day. ??? Always check the nutrition information of foods labeled as low-fat or nonfat . These foods may be higher in added sugar or refined carbs and should be avoided. ??? Talk to your dietitian to identify your daily goals for nutrients listed on the label. Shopping ??? Avoid buying canned, premade, or processed foods. These foods tend to be high in fat, sodium, and added sugar. ??? Shop around the outside edge of the grocery store. This includes fresh fruits and vegetables, bulk grains, fresh meats, and fresh dairy. Cooking ??? Use low-heat cooking methods, such as baking, instead of high-heat cooking methods like deep frying. ??? Cook using healthy oils, such as olive, canola, or sunflower oil. ??? Avoid cooking with butter, cream, or high-fat meats. Meal planning ??? Eat meals and snacks regularly, preferably at the same times every day. Avoid going long periods of time without eating. ??? Eat foods high in fiber, such as fresh fruits, vegetables, beans, and whole grains. Talk to your dietitian about how many servings of carbs you can eat at each meal. ??? Eat 4???6 ounces (oz) of lean protein each day, such as lean meat, chicken, fish, eggs, or tofu. One oz of lean protein is equal to: ? 1 oz of meat, chicken, or fish. ? 1 egg. ? ?? cup of tofu. ??? Eat some foods each day that contain healthy fats, such as avocado, nuts, seeds, and fish. Lifestyle ??? Check your blood glucose regularly. ??? Exercise regularly as told by your health care provider. This may include: ? 150 minutes of moderate-intensity or vigorous-intensity exercise each week. This could be brisk walking, biking, or water aerobics. ? Stretching and doing strength exercises, such as yoga or weightlifting, at least 2 times a week. ??? Take medicines as told by your health care provider. ??? Do not use any products that contain nicotine or tobacco, such as cigarettes and e-cigarettes. If you need help quitting, ask your health care provider. ??? Work with a counselor or clinical systems educator to identify strategies to manage stress and any emotional and social challenges. Questions to ask a health care provider ??? Do I need to meet with a clinical systems educator? Do I need to meet with a dietitian? What number can I call if I have questions? When are the best times to check my blood glucose? Where to find more information: ??? [place] Diabetes Association: diabetes.org ??? Academy of Nutrition and Dietetics: www.eatright.org ??? National [place] of Diabetes and Digestive and Kidney Diseases (NIH): www.niddk.nih.gov Summary ??? A healthy meal plan will help you control your blood glucose and maintain a healthy lifestyle. ??? Working with a diet and family specialist (dietitian) can help you make a meal plan that is best for you. ??? Keep in mind that carbohydrates (carbs) and alcohol have immediate effects on your blood glucose levels. It is important to count carbs and to use alcohol carefully. This information is not intended to replace advice given to you by your health care provider. Make sure you discuss any questions you have with your health care provider. Document Revised: 04/22/2018 Document Reviewed: 06/14/2017 [employer] Patient Education ?? 2020 [employer]. Emergency Awareness and Preventative Care STROKE is an EMERGENCY Every Minute Counts Act FAST and Check for these signs: FACE Does the face look uneven? ARM Does one arm drift down? SPEECH Does their speech sound strange? TIME Call at any sign of stroke Stroke Risk Factors Atrial Fibrillation (irregular heartbeat) Diabetes Family history of stroke Heart Disease Heavy alcohol use High Blood Pressure High Cholesterol Physical inactivity and obesity Smoking Cigarette Smoking The facts are clear, cigarette smoking will shorten your life. Smoking can cause many illnesses along the way. As a healthcare provider, we recommend that you stop smoking. Assistance with quitting is available by contacting 0-428-HJBE-NOW. This is a free resource providing counseling, support, and referral. Or you may contact your personal physician. National Suicide Prevention Lifeline: The National Suicide Prevention Lifeline is a national network of local crisis centers that provides free and confidential emotional support to people in suicidal crisis or emotional distress 24 hours a day, 7 days a week. Don't Wait! Stop a Heart Attack Before it Starts What is a heart attack? A heart attack is damage or to a part of the heart from severely decreased or lack of blood flow to the heart. Over time, arteries can become narrow from the buildup of fat and cholesterol, which is called plaque. The plaque can rupture causing a blood clot to form. When the blood clot forms, the artery can become severely narrowed or completely blocked, causing a heart attack. Heart attack is the leading cause of in the [place]. 85% of muscle damage occurs within the first 2 hours. Delay in the recognition of heart attack symptoms increases the chances of . Know the early symptoms of a heart attack: Nausea Feeling of fullness in chest Jaw Pain Pain that travels down one or both arms Fatigue/being tired Anxiety Back Pain Chest pressure, squeezing, or discomfort Shortness of breath Sweating, or a cold sweat Feeling of impending doom There are unusual signs of a heart attack, too! Women, the elderly, and diabetics may present with atypical symptoms: Fainting/dizziness Weakness Confusion Risk Factors for a Heart Attack Some heart disease risk factors, such as age and family history, cannot be changed. Others, like smoking and lack of exercise, can be changed. Smoking High Cholesterol High Blood Pressure Family History Obesity Age Gender (Males are at higher risk) Lack of Exercise Diabetes Diet Stress Excessive Alcohol Intake If you or someone you know is experiencing the signs and symptoms of a heart attack, DON???T DELAY. Call immediately and seek help. If someone collapses, perform CPR! Do not attempt to drive if you are having symptoms of heart attack. Hands-Only CPR Why Hands-Only CPR? Hands-Only CPR has been shown to be as effective as conventional CPR for cardiac arrests that occur outside of a hospital. Survival depends on immediately receiving CPR from someone nearby. How do you perform Hands-Only CPR? There are two easy steps: Call if you see a teen or adult collapse Push hard and fast in the center of the chest at a beat of 100 beats per minute. Save a life! 4 WAYS TO GET AHEAD OF SEPSIS SEPSIS is a MEDICAL EMERGENCY. Time matters! Infections put you and your family at risk for a life-threatening condition called sepsis. Sepsis is the body's extreme response to an infection. It is life-threatening, and without timely treatment, sepsis can rapidly lead to tissue damage, organ failure, and . Sepsis happens when an infection you already have-in your skin, lungs, urinary tract or somewhere else-triggers a chain reaction throughout your body. 1 PREVENT INFECTIONS Take good care of chronic conditions. Talk to your doctor about getting the recommended vaccines. 2 PRACTICE GOOD HYGIENE Wash your hands frequently. Keep cuts or open sores clean and covered until they are healed. 3 KNOW THE SYMPTOMS Confusion or disorientation Shortness of breath High heart rate Fever, shivering, or feeling very cold Extreme pain or discomfort Clammy or sweaty skin 4 ACT FAST Get medical care IMMEDIATELY if you suspect sepsis or if you have an infection that is not getting better or is getting worse. To learn more about sepsis and how to prevent infections, visit www.cdc.gov/sepsis. Test Results Laboratory or Other Results This Visit (last charted value for your 2020 visit) Blood Gases 12/06/2020 6:24 AM HCO3 Art: 29.8 mmol/L -- Normal range between ( 20.0 and 26.0 ) sO2 Art: 95.3 % -- Normal range between ( 95.0 and 100.0 ) pCO2 Art: 44.2 mmHg -- Normal range between ( 35.0 and 45.0 ) pH Art: 7.44 -- Normal range between ( 7.35 and 7.45 ) pO2 Art: 74.4 mmHg -- Normal range between ( 80.0 and 100.0 ) ABG Num of Draw Attempts: 1 Acceptable Giancarlo's Test Art: Acceptable BE Art: 5.1 mmol/L Comment Art: supine Oxygen Flow Rate Art: 2.0 Liter Delivery Device Type Art: Cannula tHb Art: 7.9 Gram/dL -- Normal range between ( 12.0 and 18.0 ) Ventilator Mode Art: N/A Temperature, F Art: 98.6 Deg F ctO2: 10.5 mmol/L FHHb: 4.6 % Art Blood Gas (ABG) Site: Right Radial 12/05/2020 1:35 PM FIO2 Art: 40 Pressure Support Art: 8.0 cmH2O Respiratory Rate Art: 16.0 CPAP/PEEP Art: 5.0 cmH2O PaO2/FiO2 calculated: 217 12/05/2020 6:11 AM Set Rate Art: 16.0 Tidal Volume Set Art: 400.0 mL Hematology 12/09/2020 6:37 AM WBC: 4.5 K/uL -- Normal range between ( 4.5 and 10.5 ) RBC: 3.10 Million/uL -- Normal range between ( 3.93 and 5.22 ) Hct: 26.1 % -- Normal range between ( 34.1 and 44.9 ) Hgb: 7.9 g/dL -- Normal range between ( 11.2 and 15.7 ) Platelet Count: 38 K/uL -- Normal range between ( 163 and 369 ) MCH: 25.5 pg -- Normal range between ( 25.6 and 32.2 ) MCHC: 30.3 Gram/dL -- Normal range between ( 32.2 and 36.5 ) MCV: 84.2 fL -- Normal range between ( 79.0 and 94.8 ) Hypochromia: 1+ RBC Morphology: Abnormal RDW: 23.2 % -- Normal range between ( 11.7 and 14.9 ) [place] Percent Man: 3 % -- Normal range between ( 4 and 5 ) Ovalocytes: 1+ Baso Percent Man: 0 % -- Normal range between ( 0 and 1 ) Neutrophil Percent Man: 18 % -- Normal range between ( 50 and 65 ) Eos Percent Man: 0 % -- Normal range between ( 0 and 3 ) Anisocytosis: 2+ Platelet Ct Estimate: Decreased MPV: 11.4 fL -- Normal range between ( 9.4 and 12.4 ) Poikilocytosis: 1+ Lymph Percent Man: 79 % -- Normal range between ( 24 and 44 ) nRBC: 0.030 -- Normal range between ( 0.000 and 0.012 ) 12/08/2020 9:18 AM Slide Review: Add Diff Man ALYC #: 3 K/uL ANC #: 3 K/uL 12/07/2020 8:13 AM Eos %: 0.0 % -- Normal range between ( 0.0 and 7.0 ) [place] #: 0.29 K/uL -- Normal range between ( 0.16 and 1.00 ) Eos #: 0.00 x10(3)/uL -- Normal range between ( 0.00 and 0.80 ) [place] %: 3.5 % -- Normal range between ( 3.0 and 9.0 ) Baso %: 0.1 % -- Normal range between ( 0.0 and 1.5 ) Baso #: 0.01 x10(3)/uL -- Normal range between ( 0.00 and 0.20 ) Neut %: 84.0 % -- Normal range between ( 34.0 and 71.0 ) Neut #: 6.86 K/uL -- Normal range between ( 1.56 and 6.13 ) Lymph %: 11.7 % -- Normal range between ( 19.3 and 53.1 ) Lymph #: 0.96 x10(3)/uL -- Normal range between ( 1.00 and 3.90 ) IG#: 0.06 x10(3)/uL -- Normal range between ( 0.00 and 0.05 ) IG%: 0.70 % -- Normal range between ( 0.00 and 0.60 ) 12/06/2020 7:37 AM Stomatocytes: 1+ Hypersegmented Neut: Present 12/05/2020 3:35 AM Band Percent Man: 1 % -- Normal range between ( 5 and 11 ) 2020 2:00 AM Sed Rate Auto: 51 mm/Hr -- Normal range between ( 0 and 30 ) Urinalysis 2020 1:32 AM Ur RBC: 10-20 /HPF Urine Nitrite: Negative Urine Leukocyte Esterase: Large Urine Appearance: Clear Urine Glucose Dipstick: Negative Urine Blood Dipstick: Large Urine Urobilinogen Dipstick: 1.0 EU/dL Urine Protein Dipstick: Negative Ur Amorph: 1+ Ur Bacteria: 2+ Ur WBC Clumps: Present Urine Color: Yellow Ur WBC: 10-20 /HPF Urine Ketones Dipstick: Negative Ur Mucous: 1+ Urine pH Dipstick: 5.5 -- Normal range between ( 6.0 and 8.0 ) Urine Bilirubin Dipstick: Negative Urine Specific [place]: 1.013 -- Normal range between ( 1.005 and 1.030 ) Urine Type.: U CleanCatch Urine Culture if Indicated: Culture Ordered Microbiology 2020 1:45 PM MRSA Surveillance: POS Influenza A: Not Detected Respiratory Syncytial Virus: Not Detected Legionella pneumophila: Not Detected Influenza B: Not Detected Rhinovirus/Enterovirus: Not Detected Human metapneumovirus: Not Detected Adenovirus: Not Detected Staphylococcus aureus: Not Detected Streptococcus agalactiae: Not Detected Streptococcus pyogenes: Not Detected Streptococcus pneumoniae: Not Detected Haemophilus influenzae: Not Detected Pseudomonas aeruginosa: Not Detected Enterobacter cloacae complex: Not Detected Escherichia coli: Not Detected Klebsiella oxytoca: Not Detected Proteus: Not Detected Serratia marcescens: Not Detected KPC (Carbapenemase): Not Applicable Mycoplasma pneumoniae: Not Detected Chlamydia pneumoniae: Not Detected Moraxella catarrhalis: Not Detected CTX-M (ESBL): Not Applicable mecA/C and MREJ (Methicillin resistance): Not Applicable VIM (Carbapenemase): Not Applicable Klebsiella pneumoniae group: Not Detected A. calco-baumannii complex: Not Detected IMP (Carbapenemase): Not Applicable NDM (Carbapenemase): Not Applicable Acceptable specimen: Yes,see culture OXA-48-like (Carbapenemase): Not Applicable Parainfluenza virus: Not Detected Klebsiella aerogenes: Not Detected Respiratory Culture and Stain: See Result Coronavirus (Not COVID-19): Not Detected 2020 3:21 AM Blood Culture: See Result 2020 1:32 AM Urine Culture: POS Influenza A H3: Not Detected Parainfluenza 3: Not Detected Influenza A H1: Not Detected Parainfluenza 1: Not Detected Parainfluenza 2: Not Detected Parainfluenza 4: Not Detected Bordatella pertussis: Not Detected Coronavirus HKU1: Not Detected Coronavirus NL63: Not Detected Coronavirus OC43: Not Detected Coronavirus 229E: Not Detected Influenza A 2008 H1N1: Not Detected SARS-CoV-2 (COVID19 PCR): Not Detected Bordatella parapertussis: Not Detected 2020 1:01 AM Sputum Culture: See Result General Chemistry 12/09/2020 11:14 AM Glucose POC2: 88 mg/dL -- Normal range between ( 70 and 110 ) Device Comment 1: Device Comment 1 12/09/2020 6:37 AM Creatinine Level: 0.70 mg/dL -- Normal range between ( 0.55 and 1.02 ) Sodium Level: 146 mmol/L -- Normal range between ( 136 and 146 ) Potassium Level: 3.2 mmol/L -- Normal range between ( 3.5 and 5.1 ) Chloride Level: 111 mmol/L -- Normal range between ( 102 and 112 ) Carbon Dioxide Level: 31 mmol/L -- Normal range between ( 21 and 32 ) Anion Gap: 7 -- Normal range between ( 9 and 20 ) Bilirubin Total: 0.7 mg/dL -- Normal range between ( 0.2 and 1.2 ) A/G Ratio: 0.8 -- Normal range between ( 1.1 and 2.5 ) ALT: 45 Units/Liter -- Normal range between ( 13 and 56 ) AST: 16 Units/Liter -- Normal range between ( 5 and 37 ) Globulin: 3.6 Gram/dL -- Normal range between ( 1.5 and 4.5 ) Alk Phos: 55 Units/Liter -- Normal range between ( 27 and 136 ) Bun/Creatinine: 37.1 -- Normal range between ( 8.0 and 20.0 ) Calcium Level: 9.1 mg/dL -- Normal range between ( 8.4 and 10.1 ) eGFR : >60 mL/min/1.73m2 eGFR NonAfrican: >60 mL/min/1.73m2 Glucose Level: 68 mg/dL -- Normal range between ( 74 and 106 ) Blood Urea Nitrogen: 26 mg/dL -- Normal range between ( 7 and 22 ) Protein Total: 6.6 Gram/dL -- Normal range between ( 6.4 and 8.2 ) Albumin Level: 3.0 Gram/dL -- Normal range between ( 3.4 and 5.0 ) 12/08/2020 9:18 AM Calcium Ionized: 1.31 mmol/L -- Normal range between ( 1.12 and 1.32 ) Magnesium Level: 2.1 mg/dL -- Normal range between ( 1.5 and 2.4 ) Phosphorus: 2.8 mg/dL -- Normal range between ( 2.5 and 4.9 ) 12/07/2020 8:13 AM CRP: 4.19 mg/dL -- Normal range between ( 0.00 and 0.30 ) 12/06/2020 7:37 AM Lactate Dehydrogenase: 271 Units/Liter -- Normal range between ( 84 and 246 ) Lactic Acid Level: 1.6 mmol/L -- Normal range between ( 0.4 and 2.0 ) 12/05/2020 3:35 AM Ammonia Level: 32.0 uMol/L -- Normal range between ( 11.0 and 32.0 ) 2020 1:32 AM Hgb A1C: 7.5 % eAVG Glucose: 169 mg/dL Lipase Level: 81 Units/Liter -- Normal range between ( 73 and 393 ) Cardiac Specific Markers 12/06/2020 7:37 AM ProBNP: 3989 pg/mL -- Normal range between ( 0 and 125 ) 12/05/2020 3:35 AM CK: 71 Units/Liter -- Normal range between ( 26 and 192 ) 2020 9:26 AM Troponin I Ultra: 0.070 ng/mL -- Normal range between ( 0.015 and 0.045 ) Coagulation 12/06/2020 7:37 AM Fibrinogen Level: 590 mg/dL -- Normal range between ( 220 and 420 ) 12/05/2020 3:35 AM INR: 1.0 -- Normal range between ( 0.9 and 1.2 ) PT: 10.7 Second(s) -- Normal range between ( 9.2 and 12.0 ) Endocrinology 12/07/2020 8:13 AM Procalcitonin: <0.25 ng/mL -- Normal range between ( 0.00 and 2.00 ) 2020 2:39 AM TSH: 3.370 mcInt Units/mL -- Normal range between ( 0.358 and 3.740 ) FT4: 1.28 ng/dL -- Normal range between ( 0.76 and 1.46 ) Iron Studies 2020 2:00 AM Ferritin Level: 532.5 ng/mL -- Normal range between ( 8.0 and 252.0 ) Infectious Disease 12/08/2020 11:12 AM C. Difficile Result: Negative Diagnostic Radiology 12/08/2020 7:39 AM CR Chest 1 Vw Portable: CR Chest 1 Vw Portable Magnetic Resonance Imaging 12/08/2020 12:35 PM MRI Brain WO W: MRI Brain WO W Echo 2020 2:15 PM EC Echo Complete: EC Echo Complete Patient Name:ALEJANDRINA YEH I have received and understand this information and was given the opportunity to ask questions. Patient/Wireless Sales Expert Name: Patient/Wireless Sales Expert Signature: Relationship to Patient: Clinician/Hospital Wireless Sales Expert Signature: Date: documented in this encounter Plan of Treatment Upcoming Encounters Date Type Department Care Team (Late st Contact Info) Description 05/14/2025 8:00 AM EST Lab [facility] [facility] [address] [place] [address] 05/14/2025 8:30 AM EST Appointment [facility] CT - [address] [place] [address] Lu Bergman MD [address] [place] [address] 05/14/2025 10:00 AM EST [facility]ment [facility] [address] [place] [address] Lu Bergman MD [address] [place] [address] 05/14/2025 2:15 PM EST Office Visit [facility] - [address] [place] [address] Lu Bergman MD [address] [facility] [address] [place] [address] documented as of this encounter Visit Diagnoses Not on filedocumented in this encounter Care Teams Flame Hardener Relationship Specialty Start Date End Date Jonas Navas MD [address] [facility] [address] [place], [place] [id number] PCP - General Cardiothoracic Surgery 04/15/22 07/23/22 Marcell Uriostegui MD [address] [facility] [address] [place] [address] PCP - General Adolescent Medicine 07/24/22 04/05/23 Heidi Rivers, FOOD MIXER [address] [place] [address] PCP - General Nurse Practitioner 04/06/23 Lu Bergman MD [address] [facility] [address] [place] [address] Hematology and Oncology 10/31/24 documented as of this encounter
--- OUTSIDE RECORDS SUMMARY | 2025-04-30 09:22 | XMS_ITS | Encounter Summary ---
[facility] [address] [place] [address] Care Team Providers Care [employer] Central Office Installer Name Role Phone Jordy Akers MD Primary Care Provider [phone] Encounter Details Date Type Department Care Team (Late st Contact Info) Description 12/17/2020 Telephone [facility] [address] [place] [address] Tonya Garcia RegSched Rep Social History Tobacco [...] on filedocumented in this encounter Care Teams [employer] Central Office Installer Relationship Specialty Start Date End Date Jordy Akers MD [address] [place] [id number] PCP - General Internal Medicine 08/07/20 documented as of this encounter
--- OUTSIDE RECORDS SUMMARY | 2025-04-30 09:22 | XMS_ITS | Encounter Summary ---
Author Organization [employer] ([place], [place], [place], [place], [place]) Address [address] [place] [address] Care Team Providers Care Floor Waxer Name Role Phone Jonas Navas MD Primary Care Provider [phone] Marcell Uriostegui MD Primary Care Provider + [phone] Heidi Rivers APRN Primary Care Provider + [phone] Neptali Bergman MD Unavailable [phone] Encounter Details Date Type Department Care Team (Late st Contact Info) Description 12/09/2020 Transcribed Document [facility] [facility] [place] [address] ProviderJennifer MD [address] [place] [address] Social History Tobacco Use Types Packs/Day Years Used Date Smoking Tobacco: Never Assessed Comments Unknown Sex and Gender Information Value Date Recorded Sex Assigned at Not on file Legal Sex Female 1:09 PM CDT Gender Identity Not on file Sexual Orientation Not on file documented as of this encounter Miscellaneous Notes * Cerner Conversion Note - Jennifer ProviderMD - 12/09/2020 5:25 PM CDT Stroke/Warfarin Instructions Entered On: 12/09/2020 17:25 EDT Performed On: 12/09/2020 17:25 EDT by Jailene Zeng RN Stroke/Warfarin Instructions Stroke/TIA Discharge Ins : N/A Warfarin Discharge Ins : N/A Jailene Zeng RN - 12/09/2020 17:25 EDT documented in this encounter Plan of Treatment Upcoming Encounters Date Type Department Care Team (Late st Contact Info) Description 05/14/2025 8:00 AM EST Lab Patient Walk-In [facility] - [address] [place] [address] 05/14/2025 8:30 AM EST Appointment [facility] Imaging [address] - [address] [place] [address] [place] [address] [place] [address] [address] [place] [address] 05/14/2025 10:00 AM EST Appointment [facility] MRI - [address] [place] [address] Neptali Bergman MD [facility] [address] [place] [address] 05/14/2025 2:15 PM EST Office Visit [facility] - [address] [place] [address] Neptali Bergman MD [address] [facility] [address] [place] [address] documented as of this encounter Visit Diagnoses Not on filedocumented in this encounter Care Teams Floor Waxer Relationship Specialty Start Date End Date Jonas Navas MD [address] [facility] [address] [place], [place] [id number] PCP - General Cardiothoracic Surgery 04/15/22 07/23/22 Marcell Uriostegui MD [address] [place] [address] PCP - General Adolescent Medicine 07/24/22 04/05/23 Heidi Rivers, PHYSICIAN PRACTICE ADMINISTRATOR [address] [facility] [address] [place] [address] PCP - General Nurse Practitioner 04/06/23 Neptali Bergman MD [address] [facility] [address] [place] [address] Hematology and Oncology 10/31/24 documented as of this encounter
--- OUTSIDE RECORDS SUMMARY | 2025-04-30 09:22 | XMS_ITS | Encounter Summary ---
Author Organization [employer] ([place], [place], [place], [place], [place]) Address [address] [place] [address] Care Team Providers Care Glass Presser Name Role Phone Jonas Navas MD Primary Care Provider [phone] Marcell Uriostegui MD Primary Care Provider + [phone] Heidi Rivers APRN Primary Care Provider + [phone] Neptali Bergman MD Unavailable [phone] Encounter Details Date Type Department Care Team (Late st Contact Info) Description 12/09/2020 Transcribed Document [facility] Radiology [address] [place] [address] Clemente Currie MD [address] [place] [address] Social History Tobacco Use Types Packs/Day Years Used Date Smoking Tobacco: Never Assessed Comments Unknown Sex and Gender Information Value Date Recorded Sex Assigned at Not on file Legal Sex Female 1:09 PM CDT Gender Identity Not on file Sexual Orientation Not on file documented as of this encounter Miscellaneous Notes * Cerner Conversion Note - Clemente Currie MD - 12/09/2020 8:33 AM EDT Patient: ALEJANDRINA YEH Age: 65 [...] 2020 she knows she is at [facility] she does not remember the name of [...] to get the MRI done sometime today. Wednesday, December 09, 2020. No fevers or chills this morning. Confusion seems to have resolved per the patient and the patient's at the bedside. No nausea vomiting. Shortness of breath improved. No chest pain palpitations. She has had some diarrhea over the past couple of days. The and the patient want to know when she is going to work with physical therapy, Occupational Therapy and speech therapy to assess her swallowing. I did call to the test deskman to make sure that at least physical therapy and speech see her today. They state that they live in [place] and their primary care provider is Jordy Akers who works in the office of Dr. Corrales and is a former partner of Dr. Jesse Rosario. Review of Systems Constitutional: Decreased activity, No [...] - Lung cancer adenocarcinoma / SNOMED CT 7339053514 / Confirmed Claustrophobia / SNOMED CT 03539467 / Confirmed Diabetes mellitus type II / SNOMED CT 58426356 / Confirmed Diverticulosis / SNOMED CT 6685939450 / Confirmed Shortness of breath / SNOMED CT 798717710 / Confirmed GERD - Gastro-esophageal reflux disease / SNOMED CT 0511930298 / Confirmed Hiatal hernia / SNOMED CT 789877868 / Confirmed History of obstructive sleep apnea / IMO [id number] / Confirmed Inactive: Seasonal allergies / SNOMED CT 6231858242 Canceled: Chronic cough / SNOMED CT 542047666 Canceled: History of obstructive sleep apnea - no c-pap / IMO [id number] Canceled: History of obstructive sleep apnea / IMO [id number] Canceled: Current every day smoker / SNOMED CT 8437247215, Active Problems (18) Arthritis Back pain CA - Lung cancer adenocarcinoma 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 Claustrophobia Coronary artery disease s/p VA Diabetes mellitus type II Diverticulosis GERD - [...] mL: 100 mg, 50 mL/Hr, IV Piggyback, [id number] granisetron: 1 mg, IV Push, 1-Time granisetron: 1 mg, IV Push, 1-Time granisetron: 1 mg, IV Push, 1-Time granisetron: 1 mg, IV Push, 1-Time hydrALAZINE: 10 mg, IV Push, Q3H, PRN: [...] Refill(s) fluticasone 50 mcg/inh nasal spray: 2 [place], Nasal, Daily, PRN: Nasal Congestion, 0 Refill(s) [...] Q6H fluticasone 50 mcg/inh nasal spray 2 [place], PRN, Nasal, Daily folic acid 1 mg [...] 1 Tab, PRN, Oral, BID , Medications (27) Active Scheduled: (8) albuterol-ipratropium inh 3 mL 3 mL, Nebulized Inhalation, RT_Q6H budesonide 0.5 mg/2 mL inh susp 0.5 mg 2 mL, Nebulized Inhalation, RT_BID doxycycline hyclate + NaCl 0.9% 100 mL 100 mg, IV Piggyback, [id number] famotidine 20 mg tab 20 mg 1 [...] 24 hrs) Last Charted Minimum Maximum Temp 98.2 (DEC 09 06:30) 97.6 (DEC 09 02:32) 99.3 (DEC 08 22:12) Mon HR 76 (DEC 09 10:54) 47 (DEC 09 02:32) 104 (DEC 08 15:08) Resp Rate 16 (DEC 09 06:30) 16 (DEC 08 15:08) 16 (DEC 08:08) SBP 109 (DEC 09 06:30) 109 (DEC 09 06:30) H 141 (DEC 08 18:00) DBP L 59 (DEC 09 06:30) L 54 (DEC 08 22:12) 71 (DEC 08 15:08) MAP 66 (DEC 09 06:30) 66 (DEC 09 06:30) 114 (DEC 08 18:00) SpO2 97 (DEC 09 10:42) L 93 (DEC 09 06:30) 99 (DEC 08 22:00) Physical Examination VS/Measurements Vitals Signs (last 24 hrs) Last Charted Minimum Maximum Temp 98.2 (DEC 09 06:30) 97.6 (DEC 09 02:32) 99.3 (DEC 08 22:12) Mon HR 76 (DEC 09 10:54) 47 (DEC 09 02:32) 104 (DEC 08 15:08) Resp Rate 16 (DEC 09:30) 16 (DEC 08:08) 16 (DEC 08 15:08) SBP 109 (DEC 09 06:30) 109 (DEC 09 06:30) H 141 (DEC 08 18:00) DBP L 59 (DEC 09 06:30) L 54 (DEC 08 22:12) 71 (DEC 08 15:08) MAP 66 (DEC 09 06:30) 66 (DEC 09 06:30) 114 (DEC 08 18:00) SpO2 97 (DEC 09 10:42) L 93 (DEC 09 06:30) 99 (DEC 08 22:00) , Measurements from flowsheet : Measurements 12/09/2020 5:00 EDT Height Source Chart Height Entry Format [place] Height/Length, UKRAINIAN (ft) 5 ft Height/Length UKRAINIAN 2 Inch CLINICALHEIGHT 157.48 cm Routine Weight Entry Format [place] Routine Weight, Pounds 176 lb Routine Weight, Oun[place] 1 oz Routine Weight Calculation 80.03 kg Body Mass Index (BMI), Routine 32.27 kg/m2 Body Surface Area (BSA), Routine 1.81 m2 12/08/2020 5:00 EDT Height Source Chart Height Entry Format [place] Height/Length, UKRAINIAN (ft) 5 ft Height/Length UKRAINIAN 2 Inch CLINICALHEIGHT 157.48 cm Routine Weight Source Bed scale Routine Weight Entry Format [place] Routine Weight, Pounds 177 lb Routine Weight, Oun[place] 8 oz Routine Weight Calculation 80.68 kg Body Mass Index (BMI), Routine 32.53 kg/m2 Body Surface Area (BSA), Routine 1.82 m2 General: Alert and oriented, No acute distress, Alert oriented to name, date of , age, November 2020, [facility]. .. Eye: Pupils are equal, round and [...] Oriented. Psychiatric: Cooperative, Appropriate mood & affect, oriented to name date of age November 2020 [facility].. Review / Management Results review: Labs (Last four charted values) WBC 4.5 (DEC 09) 5.5 (DEC 08) 8.2 (DEC 07) 8.7 (DEC 06) HB L 7.9 (DEC 09) L 7.8 (NOV 18) L 9.3 (NOV 17) L 8.2 (NOV 16) HCT L 26.1 (DEC 09) L 26.1 (NOV 18) L 30.7 (NOV 17) L 25.9 (NOV 16) Plt C 38 (DEC 09) L 55 (NOV 18) L 103 (NOV 17) L 119 (NOV 16) Na 146 (DEC 09) H 147 (NOV 18) 145 (NOV 17) 142 (NOV 16) K L 3.2 (DEC 09) 3.5 (NOV 18) 3.9 (NOV 17) 3.6 (NOV 16) Cl 111 (DEC 09) 112 (NOV 18) 111 (NOV 17) 109 (NOV 16) CO2 31 (DEC 09) 32 (NOV 18) 31 (NOV 17) 29 (NOV 16) BUN H 26 (DEC 09) H 31 (NOV 18) H 31 (NOV 17) H 23 (NOV 16) Cr 0.70 (DEC 09) 0.80 (ANTHONY 18) 0.80 (DEC 07) 0.80 (NOV 16) Glu R L 68 (DEC 09) 106 (NOV 18) H 122 (NOV 17) H 128 (NOV 16) Ca 9.1 (DEC 09) 9.2 (NOV 18) 9.7 (NOV 17) 8.9 (NOV 16) Lactic 1.6 (NOV 16) 1.7 (NOV 15) 1.2 (NOV 14) 0.6 (DEC 04) PT 10.7 (DEC 05) 10.3 (NOV 14) INR 1.0 (NOV 15) 1.0 (NOV 14) AST 16 (DEC 09) 19 (NOV 18) 28 (NOV 17) 23 (NOV 16) ALT 45 (DEC 09) 40 (NOV 18) 50 (NOV 17) 38 (NOV 16) ALK P 55 (DEC 09) 57 (NOV 18) 77 (NOV 17) 68 (NOV 16) T Bili 0.7 (DEC 09) 0.5 (NOV 18) 0.6 (DEC 07) 0.7 (NOV 16) PTN 6.6 (DEC 09) 6.5 (NOV 18) 7.7 (NOV 17) 6.8 (NOV 16) ALB L 3.0 (DEC 09) L 3.0 (NOV 18) 3.5 (NOV 17) L 2.8 (NOV 16) Lipase 81 (DEC 04) Troponin H 0.070 (DEC 04) H 0.165 (DEC 04) . Impression and Plan Acute respiratory failure. -history of adenocarcinoma of lung, history of chronic obstructive pulmonary disease. required mechanical ventilation extubated -duoneb pulmicort #. History of lung cancer with metastasis. Followed by oncology. mets to brain cyberknife august by jie per -neptali bergman consutled -check MRi head given CADET- no acute cva or met seen #. Hypertension. Stable. # bacterial Pneumonia. -Broad IV antibiotics. Cultures negative to date. duonebs pulmicort -zosyn doxycycline # klebsiella pna UTI -pansenisitive -zosyn doxy for pna covers it Acute metbolic encephaopathy -multifactorial -prednisone, uti, mets to brain, sundowning icu psycosis -improving -MRI brain 12-08 #. Diabetes mellitus. --Glucose is well controlled -ssi q ac . #thrombocytopenia -platelt 213 to 190 to 166 to 119 to 103 to 55 to 38 -consult hematology -hold heparin -check hit , and smear -secondary to chemo per bergman #. Anemia. Stable-follow. -hg 8.6 to 8.2 to 7.8 to 7.9 #. COPD-acute exacerbation- weaning IV steroids. Continue inhaled bronchodilators. -prednsione 40 qd -on chronic steroids per hemonc. #. Visual hallucinations-could be due to pain [...] of age 60 [address] [facility]. Recheck a CBC CMP in the morning [...] recommendations regarding the patient's low platelet count. Wednesday, December 09, 2020. 25 minutes spent on follow-up super nice lady mental status is improving is at the bedside as well. They are very nice family and they are from [place] where they see primary care provider Dr. Jordy Akers. These to see Dr. 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 Nonetheless the patient's is very pleased with her improvement. He feels that her hallucinations and confusion have resolved. She is on chronic steroids per heme-onc with her chemotherapy pneumonitis issues but she is back down to prednisone 40 mg daily. Platelets are decreasing slightly from 55 down to 38. We consulted hematology and he states his thrombocytopenia secondary to chemotherapy. I did order physical therapy outpatient therapy and speech see her. She is on a thickened diet but hopefully as her mental status gets better she will be able to go back to her regular diet. They want to know about discharge today. I told her that I want to see how she does with physical therapy. I told them if she does not amazing job and she is doing great and PT signs off her that I am okay however I did tell her we want to talk to pulmonary as well and make sure they are on board with this is patient's currently getting pretty broad antibiotics but I would suspect that there is a high likelihood should be able to go home this afternoon. I did discuss with Dr. Ding. [employer] dictation system used. Computer program makes numerous spelling grammar mistakes. If you have any questions or concerns do not hesitate call Dr. Clemente Patel at cell phone number [phone]. documented in this encounter Plan of Treatment Upcoming Encounters Date Type Department Care Team (Late st Contact Info) Description 05/14/2025 8:00 AM EST Lab Patient Walk-In [facility] - [address] [place] [address] 05/14/2025 8:30 AM EST Appointment [facility] CT - [facility] [address] [facility] [address] [place] [address] Neptali Bergman MD [address] [facility] [address] [place] [address] 05/14/2025 10:00 AM EST Appointment [facility] - [address] [place] [address] Neptali Bergman MD [address] [facility] [address] [place] [address] 05/14/2025 2:15 PM EST Office Visit [facility] - [facility] [address] [place] [address] Neptali Bergman MD [address] [facility] [address] [place] [address] documented as of this encounter Visit Diagnoses Not on filedocumented in this encounter Care Teams Glass Presser Relationship Specialty Start Date End Date Jonas Navas MD [address] [facility] [address] [place], [place] [id number] PCP - General Cardiothoracic Surgery 04/15/22 07/23/22 Marcell Uriostegui MD [address] [facility] [address] [place] [address] PCP - General Adolescent Medicine 07/24/22 04/05/23 Heidi Rivers, ROMERO [address] [facility] [address] [place] [address] PCP - General Nurse Practitioner 04/06/23 Neptali Bergman MD [address] [facility] [address] [place] [address] Hematology and Oncology 10/31/24 documented as of this encounter
--- OUTSIDE RECORDS SUMMARY | 2025-04-30 09:22 | XMS_ITS | Encounter Summary ---
Author Organization [employer] ([place], [place], [place], [place], [place]) Address [address] [place] [address] Care Team Providers Care Distributor Of Directories Name Role Phone Blaze Walden MD Primary Care Provider [phone] Marcell Uriostegui MD Primary Care Provider [phone] Haroldo Rivers APRN Primary Care Provider + [phone] Lu Bergman MD Unavailable [phone] Encounter Details Date Type Department Care Team (Late st Contact Info) Description 08/02/2019 Transcribed Document [facility] [place] [address] ProviderJennifer MD [address] [place] [id number] Social History Tobacco Use Types Packs/Day Years Used Date Smoking Tobacco: Never Assessed Comments Unknown Sex and Gender Information Value Date Recorded Sex Assigned at Not on file Legal Sex Female 1:09 PM CDT Gender Identity Not on file Sexual Orientation Not on file documented as of this encounter Miscellaneous Notes * Cerner Conversion Note - Jennifer ProviderMD - 08/02/2019 3:39 PM CDT [facility] SHAI Reyna [address] [address] YEH :1955 Visit Time:07/25/2019 Your Visit Summary Your Care Team Admitting Physician - BLAZE WALDEN MD-CAT Attending Physician - BLAZE WALDEN MD-CAT Primary Care Physician - HAROLDO RIVERS NP-RAYMON Referring Physician - SRINATH, NOT LISTED Your Diagnosis Adenocarcinoma of left upper lobe lung, Adenocarcinoma of left upper lobe of lung CAD (coronary artery disease) Chronic bronchitis COPD (chronic obstructive pulmonary disease) DM2 (diabetes mellitus, type 2) GERD (gastroesophageal reflux disease) History of TIA (transient ischemic attack) HLD (hyperlipidemia) HTN (hypertension) Malignant neoplasm of upper lobe, left bronchus or lung, Malignant neoplasm of upper lobe, left bronchus or lung Nicotine dependence with withdrawal Sleep apnea Discharge Vitals Temperature 37.1 ??C Heart Rate (Monitored) 79 Blood Pressure 113/66 What to do next Instructions From Your Care Team Medical Equipment for Home Use: [employer]/ Transportation: Follow-Up Appointments Follow Up with BLAZE WALDEN When 08/24/2019 09:30 AM EDT Comments f/u with surgeon Where: [address] [facility] [address] [place] [address]- Business (1) Follow Up with LU BERGMAN MD-ONC When 08/14/2019 12:45 PM EDT Comments f/u with oncologist for lung cancer Where: [address] [facility] [address] [place] [address]- Follow Up with F\U with Dr. Jordy Akers (PCP) [facility] Internal Medicine [phone] in 5-7days When Within 5 to 7 days Medications What How Much When Instructions Next Dose acetaminophen-oxyCODONE (Percocet 5/ 325 oral tablet) 1 Tablet(s) Oral Every 4 Hours as needed for for pain as needed nicotine (Habitrol 21 mg/ 24 hr transdermal film, extended release) 1 Patch(es) TransDermal Every Day Pickup at [facility] 08/02 albuterol 2 puffs Inhalation Every 6 Hours as needed for as needed for shortness of breath or wheezing as needed ALPRAZolam 0.25 Milligram(s) Oral At Bedtime as needed for Insomnia as needed aspirin 325 Milligram(s) Oral Every Day 08/02 atorvastatin 40 Milligram(s) Oral At Bedtime 08/01 cetirizine (ZyrTEC) 10 Milligram(s) Oral Every Day as needed for as needed for allergy symptoms as needed fluticasone nasal (fluticasone 50 mcg/ inh nasal spray) 2 Sidney(s) Nasal Every Day as needed for Congestion as needed fluticasone-salmeterol (Advair Diskus 250 mcg-50 mcg inhalation powder) 1 Puff(s) Inhalation Two Times A Day 08/01 hydrochlorothiazide-lisinopril (hydroCHLOROthiazide-lisinopril 25 mg-20 mg oral tablet) 1 Tablet(s) Oral Every Day 08/02 metFORMIN 500 Milligram(s) Oral At Bedtime 08/01 omeprazole 20 Milligram(s) Oral Every Day 08/02 Pharmacy Information [facility]: [address] [phone] Take your medications faithfully. Do NOT skip [...] Ellipta (Chest pain) Corgard (Unknown) Levaquin (Vomiting) Stiolto Respimat 10 ACT (Muscle weakness (generalized), Chest pain) dilTIAZem (Unknown) Immunizations This Visit No Immunizations Found Education Materials Thoracotomy Thoracotomy is surgery to open the [...] Up to 2 hours before the procedure ??? you may drink clear liquids. This includes water, clear fruit juice, black coffee, and plain tea. Eating and drinking restrictions ??? Follow instructions from your doctor about eating and drinking. Instructions may include: ? 8 hours before the procedure ??? stop eating heavy meals or foods such as meat, fried foods, or fatty foods. ? 6 hours before the procedure ??? stop eating light meals or foods, such as toast or cereal. ? 6 hours before the procedure ??? stop drinking milk or drinks that contain milk. ? 2 hours before the procedure ??? stop drinking clear liquids. General instructions ??? [...] This tube helps you breathe. ??? A 5???10 inch (13???25 cm) cut (incision) will be made in [...] tube. This may stay in place for 24???48 hours. You will be watched for fluid [...] chest tissue. ??? During the procedure, a 5???10 inch (13???25 cm) cut will be made in your chest. ??? You may have a chest tube draining fluid from your lungs. This may stay in place for 24???28 hours. This information is not intended to replace advice given to you by your health care provider. Make sure you discuss any questions you have with your health care provider. Document Released: 11/08/2012 Document Revised: 02/01/2017 Document Reviewed: 02/01/2017 [employer] Interactive Patient Education ?? 2019 [employer]a. Thoracotomy, Care After This sheet gives you information about how to care for yourself after your procedure. Your doctor may also give you more specific instructions. If you have problems or questions, contact your doctor. Follow these instructions at home: Preventing lung infection ( pneumonia) ??? Take deep breaths or do breathing exercises [...] (pulmonary rehabilitation) as told. Medicines ??? Take iumh-dgw-swwuzje or prescription medicines only as told by [...] cannot use soap and water, use hand food service specialist. ? Change your bandage as told by [...] doctor may recommend that you: ? Take eplu-hkd-nswbbed or prescription medicines. ? Eat foods that [...] 11/08/2012 Document Revised: 02/01/2017 Document Reviewed: 02/01/2017 [employer] Interactive Patient Education ?? 2019 Sofea. Incentive Spirometer An incentive spirometer is a [...] the column. 6. Hold your breath for 3???5 seconds or for as long as possible. [...] repeat this at least 10 times, every 1???2 hours when you are awake. Take your [...] 09/20/2007 Document Revised: 02/01/2017 Document Reviewed: 12/17/2014 [employer] Interactive Patient Education ?? 2018 So[employer]a. Diabetes Mellitus and Sick Day Management Blood [...] blood glucose? Check your blood glucose every 2???4 hours, or as often as told by [...] of sugar. Take medicines as directed ??? Lknm-xnvz-dct-counter and prescription medicines only as told by your health care provider. ??? Check medicine labels for added sugars. Some medicines may contain sugar or types of sugars that can raise your blood glucose level. What foods can I eat when I am sick? You need to eat some form of carbohydrates when you are sick. You should eat 45???50 grams (45???50 g) of carbohydrates every 3???4 hours until you feel better. All of the food choices below contain about 15 g of carbohydrates. Plan ahead and keep some of these foods around so you have them if you get sick. ??? 4???6 oz (120???177 mL) carbonated beverage that contains sugar, such [...] 05/12/2004 Document Revised: 02/05/2017 Document Reviewed: 02/05/2017 [employer] Interactive Patient Education ?? 2019 Sofea. Steps to Quit Smoking Smoking tobacco can [...] 03/06/2010 Document Revised: 01/05/2017 Document Reviewed: 09/24/2015 [employer] Interactive Patient Education ?? 2019 [employer] nicotine (transdermal) (ANGELO [place] teen) Habitrol, Nicoderm C-Q, Nicotine System Kit What is the most important information I should know about nicotine transdermal? Follow all directions on your medicine label and package. Tell each of your healthcare providers about all your medical conditions, allergies, and all medicines you use. What is nicotine? Nicotine is the primary ingredient in tobacco products. Nicotine transdermal (skin patch) is a medical product used to help you stop smoking and help reduce nicotine withdrawal symptoms as you quit smoking. Nicotine may also be used for purposes not listed in this medication guide. What should I discuss with my healthcare provider before using nicotine transdermal? Nicotine transdermal is not approved for use by anyone younger than 18 years old. Ask a doctor or pharmacist if this medicine is safe to use if you have ever had: ?? heart disease, irregular heartbeats; ?? a heart attack or stroke; ?? untreated or uncontrolled high blood pressure; ?? blood circulation problems; ?? pheochromocytoma (tumor of the adrenal gland); ?? diabetes; ?? a thyroid disorder; ?? a stomach ulcer; ?? liver disease; or ?? if your skin is sensitive to adhesive tape or bandages. Do not use nicotine transdermal without medical advice if you are . Use effective control, and tell your doctor if you become during treatment. Smoking cigarettes during can cause low weight, miscarriage, or stillbirth. Using a nicotine replacement product during or while breast-feeding may be safer than smoking. However, you should try to stop smoking without using a nicotine replacement product if you are or breast-feeding. Talk with your doctor about the best way for you to stop smoking. It may not be safe to breastfeed while using this medicine. Ask your doctor about any risk. The nicotine transdermal patch may burn your skin if you wear the patch during an MRI (magnetic resonance imaging). Remove the patch before undergoing such a test. How should I use nicotine transdermal? Nicotine transdermal is only part of a complete program of treatment that may also include counseling, group support, and behavior changes. Your success will depend on your participation in all aspects of your smoking cessation program. Use exactly as directed on the label, or as prescribed by your doctor. Start using the transdermal patch on the same day you stop (quit) smoking or using tobacco products. Your patch strength and number of weeks of treatment will depend on how many cigarettes you smoked daily before quitting. Read and carefully follow any Instructions for Use provided with your medicine. Ask your doctor or pharmacist if you do not understand these instructions. Wash your hands after applying or removing a nicotine skin patch. Apply the patch to clean, dry, and hairless skin on your chest or the outer part of your upper arm. Press the patch firmly into place for about 10 seconds to make sure it sticks. You may leave the patch on while bathing, showering, or swimming. Do not wear more than one nicotine patch at a time. Never cut a skin patch. Do not wear a nicotine patch at night if you have vivid dreams or trouble sleeping. If a patch falls off, try sticking it back into place. If it does not stick well, put on a new patch. You may wear a Habitrol patch for 24 hours. You may wear a Nicoderm CQ patch for 16 or 24 hours (wear for 24 hours if you crave cigarettes when you wake up in the morning). Remove the skin patch after 24 hours and replace it with a new one. Choose a different place on your body to wear the patch each time you put on a new one. Do not use the same skin area twice within 7 days. After removing a skin patch fold it in half, sticky side in, and put it back into its pouch. Do not use nicotine patches for longer than 8 weeks without the advice of your doctor. Store at room temperature away from moisture and heat. Keep each patch in its foil pouch until you are ready to use it. Save the pouch so you can use it to throw away any used patches. Keep both used and unused nicotine patches out of the reach of children or pets. The amount of nicotine in a used or unused skin patch can be fatal to a child who accidentally sucks or chews on the patch. Seek emergency medical attention if this happens. What happens if I miss a dose? Apply a skin patch as soon as you remember. Do not wear a patch for longer than 24 hours. Do not use extra patches to make up the missed dose. What happens if I overdose? Seek emergency medical attention or call the Poison Help line at . Overdose symptoms may include severe dizziness, nausea, vomiting, diarrhea, weakness, and fast heart rate. What should I avoid while using nicotine transdermal? Avoid using lotions, oils, or moisturizing soaps on the skin where you plan to wear a nicotine transdermal patch, or it may not stick well. What are the possible side effects of nicotine transdermal? Get emergency medical help if you have signs of an allergic reaction: hives; difficult breathing; swelling of your face, lips, tongue, or throat. Stop using nicotine transdermal and call your doctor at once if you have: ?? fast or pounding heartbeats, fluttering in your chest; ?? extreme weakness or dizziness; ?? severe nausea and vomiting; or ?? redness, swelling, or skin rash where a nicotine patch was worn (especially if these symptoms do not clear up within 4 days after the patch was removed). Common side effects may include: ?? dizziness; ?? sleep problems (insomnia), strange dreams; ?? dry mouth, upset stomach; ?? joint or muscle pain; ?? headache; or ?? mild skin irritation where the patch is worn. This is not a complete list of side effects and others may occur. Call your doctor for medical advice about side effects. You may report side effects to FDA at 7-266-WAQ-7178. What other drugs will affect nicotine? Other drugs may affect nicotine transdermal, including prescription and yiew-xlz-hlonkdm medicines, vitamins, and herbal products. Tell your doctor about all your current medicines and any medicine you start or stop using. Where can I get more information? Your pharmacist can provide more information about nicotine. Remember, keep this and all other medicines out of the reach of children, never share your medicines with others, and use this medication only for the indication prescribed. Every effort has been made to ensure that the information provided by [employer]') is accurate, up-to-date, and complete, but no guarantee is made to that effect. Drug information contained herein may be time sensitive. [employer] information has been compiled for use by healthcare practitioners and consumers in the [place] and therefore [employer] does not warrant that uses outside of the [place] are appropriate, unless specifically indicated otherwise. [employer]'s drug information does not endorse drugs, diagnose patients or recommend therapy. [employer] drug information is an informational resource designed to assist licensed healthcare practitioners in caring for their patients and/or to serve consumers viewing this service as a supplement to, and not a substitute for, the expertise, skill, knowledge and judgment of healthcare practitioners. The absence of a warning for a given drug or drug combination in no way should be construed to indicate that the drug or drug combination is safe, effective or appropriate for any given patient. [facility] does not assume any responsibility for any aspect of healthcare administered with the aid of information [facility] provides. The information contained herein is not intended to cover all possible uses, directions, precautions, warnings, drug interactions, allergic reactions, or adverse effects. If you have questions about the drugs you are taking, check with your doctor, nurse or pharmacist. Copyright 9433-1035 [employer]. Version: 3.01. Revision Date: 12/29/2018. acetaminophen and oxycodone (a SEET a MIN oh fen and OX i KOE done) Endocet 10/325, Endocet 2.5/325, Endocet 5/325, Endocet 7.5/325, Nalocet, Percocet 10/325, Percocet 2.5/325, Percocet 5/325, Percocet 7.5/325, Primalev, Primlev, Roxicet, Xartemis XR What is the most important information I should know about acetaminophen and oxycodone? MISUSE OF OPIOID MEDICINE CAN CAUSE ADDICTION, OVERDOSE, OR . Keep the medication in a place where others cannot get to it. An overdose of acetaminophen can damage your liver or cause . Call your doctor at once if you have pain in your upper stomach, loss of appetite, dark urine, or jaundice (yellowing of your skin or eyes). Taking opioid medicine during may cause life-threatening withdrawal symptoms in the . Fatal side effects can occur if you use opioid medicine with alcohol, or with other drugs that cause drowsiness or slow your breathing. Stop taking this medicine and call your doctor right away if you have skin redness or a rash that spreads and causes blistering and peeling. What is acetaminophen and oxycodone? Oxycodone is an opioid pain medication, sometimes called a narcotic. Acetaminophen is a less potent pain reliever that increases the effects of oxycodone. Acetaminophen and oxycodone is a combination medicine used to relieve moderate to severe pain. Acetaminophen and oxycodone may also be used for purposes not listed in this medication guide. What should I discuss with my healthcare provider before taking acetaminophen and oxycodone? You should not use this medicine if you are allergic to acetaminophen or oxycodone, or if you have: ?? severe asthma or breathing problems; or ?? a blockage in your stomach or intestines. Tell your doctor if you have ever had: ?? liver disease; ?? a drug or alcohol addiction; ?? kidney disease; ?? a head injury or seizures; ?? urination problems; or ?? problems with your thyroid, pancreas, or gallbladder. If you use opioid medicine while you are , your baby could become dependent on the drug. This can cause life-threatening withdrawal symptoms in the baby after it is born. Babies born dependent on opioids may need medical treatment for several weeks. Do not breast-feed. This medicine can pass into breast milk and cause drowsiness, breathing problems, or in a nursing baby. How should I take acetaminophen and oxycodone? Follow all directions on your prescription label. Never take this medicine in larger amounts, or for longer than prescribed. An overdose can damage your liver or cause . Tell your doctor if the medicine seems to stop working as well in relieving your pain. Never share this medicine with another person, especially someone with a history of drug abuse or addiction. MISUSE CAN CAUSE ADDICTION, OVERDOSE, OR . Keep the medicine in a place where others cannot get to it. Selling or giving away acetaminophen and oxycodone is against the law. Measure liquid medicine carefully. Use the dosing syringe provided, or use a medicine dose-measuring device (not a kitchen spoon). If you need surgery or medical tests, tell the doctor ahead of time that you are using this medicine. You should not stop using this medicine suddenly. Follow your doctor's instructions about tapering your dose. Store at room temperature away from moisture and heat. Keep track of your medicine. You should be aware if anyone is using it improperly or without a prescription. Do not keep leftover opioid medication. Just one dose can cause in someone using this medicine accidentally or improperly. Ask your pharmacist where to locate a drug take-back disposal program. If there is no take-back program, flush the unused medicine down the toilet. What happens if I miss a dose? Since this medicine is used for pain, you are not likely to miss a dose. Skip any missed dose if it is almost time for your next dose. Do not use two doses at one time. What happens if I overdose? Seek emergency medical attention or call the Poison Help line at . An overdose of acetaminophen and oxycodone can be fatal. The first signs of an acetaminophen overdose include loss of appetite, nausea, vomiting, stomach pain, sweating, and confusion or weakness. Later symptoms may include pain in your upper stomach, dark urine, and yellowing of your skin or the whites of your eyes. Overdose can also cause severe muscle weakness, pinpoint pupils, very slow breathing, extreme drowsiness, or coma. What should I avoid while taking acetaminophen and oxycodone? Avoid driving or operating machinery until you know how this medicine will affect you. Dizziness or drowsiness can cause falls, accidents, or severe injuries. Do not drink alcohol. Dangerous side effects or could occur. Ask a doctor or pharmacist before using any other medicine that may contain acetaminophen (sometimes abbreviated as APAP). Taking certain medications together can lead to a fatal overdose. What are the possible side effects of acetaminophen and oxycodone? Get emergency medical help if you have signs of an allergic reaction: hives; difficulty breathing; swelling of your face, lips, tongue, or throat. Opioid medicine can slow or stop your breathing, and may occur. A person caring for you should seek emergency medical attention if you have slow breathing with long pauses, blue colored lips, or if you are hard to wake up. In rare cases, acetaminophen may cause a severe skin reaction that can be fatal. This could occur even if you have taken acetaminophen in the past and had no reaction. Stop taking this medicine and call your doctor right away if you have skin redness or a rash that spreads and causes blistering and peeling. Call your doctor at once if you have: ?? noisy breathing, sighing, shallow breathing; ?? a light-headed feeling, like you might pass out; ?? weakness, tiredness, fever, unusual bruising or bleeding; ?? confusion, unusual thoughts or behavior; ?? problems with urination; ?? liver problems--nausea, upper stomach pain, tiredness, loss of appetite, dark urine, jose luis-colored stools, jaundice (yellowing of the skin or eyes); or ?? low cortisol levels-- nausea, vomiting, loss of appetite, dizziness, worsening tiredness or weakness. Seek medical attention right away if you have symptoms of serotonin syndrome, such as: agitation, hallucinations, fever, sweating, shivering, fast heart rate, muscle stiffness, twitching, loss of coordination, nausea, vomiting, or diarrhea. Serious side effects may be more likely in older adults and those who are overweight, malnourished, or debilitated. Long-term use of opioid medication may affect fertility (ability to have children) in men or women. It is not known whether opioid effects on fertility are permanent. Common side effects include: ?? dizziness, drowsiness, feeling tired; ?? feelings of extreme happiness or sadness; ?? nausea, vomiting, stomach pain; ?? constipation; or ?? headache. This is not a complete list of side effects and others may occur. Call your doctor for medical advice about side effects. You may report side effects to FDA at 4-048-PJT-1064. What other drugs will affect acetaminophen and oxycodone? You may have breathing problems or withdrawal symptoms if you start or stop taking certain other medicines. Tell your doctor if you also use an antibiotic, antifungal medication, heart or blood pressure medication, seizure medication, or medicine to treat HIV or hepatitis C. Opioid medication can interact with many other drugs and cause dangerous side effects or . Be sure your doctor knows if you also use: ?? cold or allergy medicines, bronchodilator asthma/COPD medication, or a diuretic ('water pill'); ?? medicines for motion sickness, irritable bowel syndrome, or overactive bladder; ?? other narcotic medications--opioid pain medicine or prescription cough medicine; ?? a sedative like Valium--diazepam, alprazolam, lorazepam, Xanax, Klonopin, Versed, and others; ?? drugs that make you sleepy or slow your breathing--a sleeping pill, muscle relaxer, medicine to treat mood disorders or mental illness; ?? drugs that affect serotonin levels in your body--a stimulant, or medicine for depression, Parkinson's disease, migraine headaches, serious infections, or nausea and vomiting. This list is not complete. Other drugs may affect acetaminophen and oxycodone, including prescription and oyxa-euc-nyqbctr medicines, vitamins, and herbal products. Not all possible interactions are listed here. Where can I get more information? Your doctor or pharmacist can provide more information about acetaminophen and oxycodone. Remember, keep this and all other medicines out of the reach of children, never share your medicines with others, and use this medication only for the indication prescribed. Every effort has been made to ensure that the information provided by [employer]') is accurate, up-to-date, and complete, but no guarantee is made to that effect. Drug information contained herein may be time sensitive. [employer] information has been compiled for use by healthcare practitioners and consumers in the [place] and therefore [employer] does not warrant that uses outside of the [place] are appropriate, unless specifically indicated otherwise. [employer] drug information does not endorse drugs, diagnose patients or recommend therapy. [employer] drug information is an informational resource designed to assist licensed healthcare practitioners in caring for their patients and/or to serve consumers viewing this service as a supplement to, and not a substitute for, the expertise, skill, knowledge and judgment of healthcare practitioners. The absence of a warning for a given drug or drug combination in no way should be construed to indicate that the drug or drug combination is safe, effective or appropriate for any given patient. [employer] does not assume any responsibility for any aspect of healthcare administered with the aid of information [employer] provides. The information contained herein is not intended to cover all possible uses, directions, precautions, warnings, drug interactions, allergic reactions, or adverse effects. If you have questions about the drugs you are taking, check with your doctor, nurse or pharmacist. Copyright 8940-9494 [employer]. Version: 18.02. Revision Date: 04/20/2018. Emergency Awareness and Preventative Care STROKE is [...] Assistance with quitting is available by contacting 6-827-IEWW-NOW. This is a free resource providing counseling, [...] This Visit (last charted value for your 07/25/2019 visit) Hematology 07/28/2019 3:13 AM WBC: 14.3 K/uL -- Normal range between ( 4.5 and 10.5 ) RBC: 3.72 Million/uL -- Normal range between ( 3.93 and 5.22 ) Hct: 31.4 % -- Normal range between ( 34.1 and 44.9 ) Hgb: 9.9 g/dL -- Normal range between ( 11.2 and 15.7 ) Platelet Count: 234 K/uL -- Normal range between ( 163 and 369 ) MCH: 26.6 pg -- Normal range between ( 25.6 and 32.2 ) MCHC: 31.5 Gram/dL -- Normal range between ( 32.2 and 36.5 ) MCV: 84.4 fL -- Normal range between ( 79.0 and 94.8 ) Slide Review: No Eos %: 0.4 % -- Normal range between ( 0.0 and 7.0 ) Bent #: 1.41 K/uL -- Normal range between ( 0.16 and 1.00 ) Eos #: 0.06 x10(3)/uL -- Normal range between ( 0.00 and 0.80 ) Bent %: 9.9 % -- Normal range between ( 3.0 and 9.0 ) Baso %: 0.3 % -- Normal range between ( 0.0 and 1.5 ) Baso #: 0.04 x10(3)/uL -- Normal range between ( 0.00 and 0.20 ) RDW: 16.4 % -- Normal range between ( 11.7 and 14.9 ) Neut %: 77.0 % -- Normal range between ( 34.0 and 71.0 ) Neut #: 11.01 K/uL -- Normal range between ( 1.56 and 6.13 ) Lymph %: 11.8 % -- Normal range between ( 19.3 and 53.1 ) Lymph #: 1.68 x10(3)/uL -- Normal range between ( 1.00 and 3.90 ) MPV: 10.7 fL -- Normal range between ( 9.4 and 12.4 ) IG#: 0.08 x10(3)/uL -- Normal range between ( 0.00 and 0.05 ) IG%: 0.60 % -- Normal range between ( 0.00 and 0.60 ) Urinalysis 07/31/2019 5:04 PM Ur RBC: 0-2 /HPF Urine Nitrite: Negative Urine Leukocyte Esterase: Negative Urine Appearance: Clear Urine Glucose Dipstick: Negative Urine Blood Dipstick: Negative Urine Urobilinogen Dipstick: 0.2 EU/dL Urine Protein Dipstick: Negative Ur Bacteria: Trace Ur Squamous Epithelial Cells: 2-5 /HPF Urine Color: Yellow Ur Transitional Epi Cells: 0-2 Ur WBC: 0-2 /HPF Urine Ketones Dipstick: Negative Urine pH Dipstick: 5.5 -- Normal range between ( 6.0 and 8.0 ) Ur Hyaline Casts: 5-10 /LPF Urine Bilirubin Dipstick: Negative Urine Specific [place]: 1.017 -- Normal range between ( 1.005 and 1.030 ) Urine Type.: U CleanCatch 07/20/2019 2:08 PM Urine Type: U CleanCatch Microbiology 07/20/2019 1:20 PM MRSA Surveillance: See Result Blood Bank 07/25/2019 6:40 AM ABO/Rh (ECHO): A POS Antibody Screen: Negative ABSC Crossmatch: Computer XM OK 07/25/2019 6:18 AM RBC Product Ready: RBC Ready # of Units: 2 07/20/2019 1:20 PM ABO/Rh Repeat: A POS General Chemistry 08/02/2019 11:19 AM Glucose POC2: 97 mg/dL -- Normal range between ( 70 and 110 ) Device Comment 1: Device Comment 1 08/02/2019 5:28 AM Creatinine Level: 0.80 mg/dL -- Normal range between ( 0.55 and 1.02 ) Sodium Level: 129 mmol/L -- Normal range between ( 136 and 146 ) Potassium Level: 4.2 mmol/L -- Normal range between ( 3.5 and 5.1 ) Chloride Level: 87 mmol/L -- Normal range between ( 102 and 112 ) Carbon Dioxide Level: 40 mmol/L -- Normal range between ( 21 and 32 ) Anion Gap: 6 -- Normal range between ( 9 and 20 ) Bun/Creatinine: 30.0 -- Normal range between ( 8.0 and 20.0 ) Calcium Level: 9.7 mg/dL -- Normal range between ( 8.4 and 10.1 ) eGFR : >60 mL/min/1.73m2 eGFR NonAfrican: >60 mL/min/1.73m2 Glucose Level: 111 mg/dL -- Normal range between ( 74 and 106 ) Blood Urea Nitrogen: 24 mg/dL -- Normal range between ( 7 and 22 ) 07/25/2019 11:02 AM Bilirubin Total: 0.6 mg/dL -- Normal range between ( 0.2 and 1.2 ) A/G Ratio: 1.0 -- Normal range between ( 1.1 and 2.5 ) ALT: 15 Units/Liter -- Normal range between ( 13 and 56 ) AST: 9 Units/Liter -- Normal range between ( 5 and 37 ) Globulin: 3.4 Gram/dL -- Normal range between ( 1.5 and 4.5 ) Alk Phos: 88 Units/Liter -- Normal range between ( 27 and 136 ) Protein Total: 6.9 Gram/dL -- Normal range between ( 6.4 and 8.2 ) Albumin Level: 3.5 Gram/dL -- Normal range between ( 3.4 and 5.0 ) 07/20/2019 1:20 PM Hgb A1C: 6.6 % eAVG Glucose: 143 mg/dL Coagulation 07/20/2019 1:20 PM INR: 1.0 -- Normal range between ( 0.9 and 1.1 ) PTT: 27.2 Second(s) -- Normal range between ( 24.0 and 34.0 ) PT: 10.3 Second(s) -- Normal range between ( 9.6 and 12.0 ) Lipid Studies 07/25/2019 6:40 AM Cholesterol Tot: 164 mg/dL -- Normal range between ( 0 and 199 ) Cholesterol HDL: 40.0 mg/dL Cholesterol LDL Calculation: 92.2 mg/dL -- Normal range between ( 0.0 and 99.0 ) Cholesterol VLDL Calculation: 31.8 mg/dL -- Normal range between ( 5.0 and 40.0 ) Cholesterol/HDL Ratio: 4.1 -- Normal range between ( 0.0 and 3.2 ) Triglyceride: 159 mg/dL -- Normal range between ( 0 and 249 ) LDL/HDL Ratio: 2.3 -- Normal range between ( 0.0 and 3.2 ) Diagnostic Radiology 08/02/2019 6:56 AM CR Chest 1 Vw Portable: CR Chest 1 Vw Portable Patient Name:DHAVAL YEHYCRonen Hardwick I have received and understand this information and was given the opportunity to ask questions. Patient/Geography Faculty Member Name: Patient/Geography Faculty Member Signature: Relationship to Patient: Clinician/Hospital Geography Faculty Member Signature: Date: Electronically signed by Kolby Catalan Conversion English Language Learner Tutor Cerner at 09/10/2022 12:44 AM CDT documented in this encounter Plan of Treatment Upcoming Encounters Date Type Department Care Team (Late st Contact Info) Description 05/14/2025 8:00 AM EST Lab Patient Walk-In [facility] - [address] [place] [id number] 05/14/2025 8:30 AM EST Appointment [facility] CT - [address] [facility] [address] [place] [address] Lu Bergman MD [address] [place] [address] [address] [place] [address] 05/14/2025 10:00 AM EST Appointment [facility] MRI - [address] [facility] [address] [place] [address] Lu Bergman MD [address] [place] [address] [address] [place] [address] 05/14/2025 2:15 PM EST Office Visit [facility] - [place] [place] [address] Lu Bergman MD [address] [place] [address] [address] [place] [address] documented as of this encounter Visit Diagnoses Not on filedocumented in this encounter Care Teams Distributor Of Directories Relationship Specialty Start Date End Date Blaze Walden MD [address] [facility] [address] [place] [address] PCP - General Cardiothoracic Surgery 04/15/22 07/23/22 Marcell Uriostegui MD [address] [place] [address] [place] [address] PCP - General Adolescent Medicine 07/24/22 04/05/23 Haroldo Rivers, [employer]PER[employer] SUPERINTENDENT [address] [facility] [address] [place] [address] PCP - General Nurse Practitioner 04/06/23 Lu Bergman MD [address] [facility] [address] [place] [address] Hematology and Oncology 10/31/24 documented as of this encounter
--- OUTSIDE RECORDS SUMMARY | 2025-04-30 09:22 | XMS_ITS | Encounter Summary ---
Author Organization [employer] ([place], [place], [place], [place], [place]) Address [address] [place] [address] Care Team Providers Care Plant Operator Control Room Operator Name Role Phone Jonas Navas MD Primary Care Provider [phone] Marcell Uriostegui MD Primary Care Provider + [phone] Heidi Rievrs APRN Primary Care Provider + [phone] Neptali Bergman MD Unavailable [phone] Encounter Details Date Type Department Care Team (Late st Contact Info) Description 12/09/2020 Transcribed Document [facility] [place] [facility] [place] [address] ProviderJennifer MD [address] [place] [address] Social History Tobacco Use Types Packs/Day Years Used Date Smoking Tobacco: Never Assessed Comments Unknown Sex and Gender Information Value Date Recorded Sex Assigned at Not on file Legal Sex Female 1:09 PM CDT Gender Identity Not on file Sexual Orientation Not on file documented as of this encounter Miscellaneous Notes * Cerner Conversion Note - Jennifer ProviderMD - 12/09/2020 5:24 PM CDT Nursing Discharge Summary Entered On: 12/09/2020 17:24 EDT Performed On: 12/09/2020 17:24 EDT by Jailene Zeng RN Discharge Documentation Patient Disposition, General : Discharge Discharge To : Home with ambulatory/outpatient follow-up Teaching Method : Explanation, Printed materials Teaching Evaluation : Patient/Caregiver decline education Education Comment : unable to educate, patient is intubated and on sedatives condition, medications, diet, activity and follow up appointments Jailene Zeng RN - 12/09/2020 17:24 EDT Electronically signed by Hossein [facility] Conversion Parts Lister Cerner at 09/10/2022 12:31 AM CDT documented in this encounter Plan of Treatment Upcoming Encounters Date Type Department Care Team (Late st Contact Info) Description 05/14/2025 8:00 AM EST Lab Patient Walk-In [facility] - [place] [address] [place] [address] 05/14/2025 8:30 AM EST Appointment [facility] CT - [address] [facility] [address] [place] [address] Neptali Bergman MD [address] [place] [address] [address] [place] [address] 05/14/2025 10:00 AM EST Appointment [facility] MRI - [address] [place] [address] Neptali Bergman MD [address] [place] [address] [address] [place] [address] 05/14/2025 2:15 PM EST Office Visit [facility] - [place] [address] [place] [address] Neptali Bergman MD [address] [place] [address] [address] [place] [address] documented as of this encounter Visit Diagnoses Not on filedocumented in this encounter Care Teams Plant Operator Control Room Operator Relationship Specialty Start Date End Date Jonas Navas MD [address] [facility] [address] [place] [address] PCP - General Cardiothoracic Surgery 04/15/22 07/23/22 Marcell Uriostegui MD [address] [facility] [address] [place] [address] PCP - General Adolescent Medicine 07/24/22 04/05/23 Heidi Rivers APRN [address] [facility] [address] [place] [address] PCP - General Nurse Practitioner 04/06/23 Neptali Bergman MD [address] [facility] [address] [place] [address] Hematology and Oncology 10/31/24 documented as of this encounter
--- OUTSIDE RECORDS SUMMARY | 2025-04-30 09:23 | XMS_ITS | Encounter Summary ---
Author Organization [employer] ([place], [place], [place], [place], [place]) Address [address] [place] [address] Care Team Providers Care Cutter Woodwind Reeds Name Role Phone Jonas Navas MD Primary Care Provider [phone] Marcell Uriostegui MD Primary Care Provider + [phone] Heidi Rivers APRN Primary Care Provider + [phone] Neptali Bergman MD Unavailable [phone] Encounter Details Date Type Department Care Team (Late st Contact Info) Description 03/22/2020 Transcribed Document [facility] [place] Family Medicine [facility] [place] [address] ProviderJennifer MD [address] [place] [address] Social History Tobacco Use Types Packs/Day Years Used Date Smoking Tobacco: Never Assessed Comments Unknown Sex and Gender Information Value Date Recorded Sex Assigned at Not on file Legal Sex Female 1:09 PM CDT Gender Identity Not on file Sexual Orientation Not on file documented as of this encounter Miscellaneous Notes * Cerner Conversion Note - Jennifer ProviderMD - 03/22/2020 2:19 PM CDT PAT Adult Entered On: 03/22/2020 14:22 EDT Performed On: 03/22/2020 14:19 EDT by Yessy Wilson, Nurse Public Health Staff Nurse Vital Measurements Temperature Source : Temporal artery scanning Temperature Mode : Fahrenheit Temperature, Fahrenheit : 98.1 Deg F Clinical Temperature, C : 36.7 Deg C Peripheral Pulse Rate : 88 bpm Respiratory Rate : 20 Breaths/Min Blood Pressure Location : Arm, left upper Systolic Blood Pressure : 134 mmHg Diastolic Blood Pressure : 76 mmHg Oxygen Saturation : 97 % Heidi Zamora Rn - 03/26/2020 10:05 EST Pain Assessment Pain Assessment : Initial assessment Pain Scale Goal : 4 Heidi Zamora Rn - 03/26/2020 10:05 EST Height and Weight, Clinical Dosing Height Source : Measured Height Entry Format : Dix Height, Feet : 0 ft(Converted to: 0 cm, 0 Inch) Height, Inches : 61 Inch(Converted to: 5 ft 1 Inch, 154.94 cm) Clinical Height : 154.94 cm Weight Source : Standing scale Weight Entry Format : Dix Clinical Dosing Weight : 77.91 kg Weight, Pounds : 171.4 lb Body Surface Area (BSA) : 1.77 m2 Body Mass Index : 32.5 kg/m2 (HI) Mission Body Weight : 47 kg Heidi Zamora Rn - 03/26/2020 10:05 EST Health Histories Smoking Status : Former smoker, quit more than 30 days ago Smokeless Tobacco Status : Never Implant/Device Type, Shipping Checker and Model : none Yessy Wilson, Nurse Public Health Staff Nurse - 03/22/2020 14:19 EDT Social History (As Of: 03/26/2020 10:15:58 EST) Tobacco: Former smoker, quit more than 30 days ago Smoking Status. Never Smokeless Tobacco Status. Last Used: 07-24-2019. (Last Updated: 03/26/2020 10:10:57 EST by Heidi Zamora Rn) Alcohol: Alcohol Use History No. (Last Updated: 07/20/2019 13:02:33 EST by STEWART WILD RN) Substance Abuse: Drug Use Hx: No. Use in Last 12 Months: No. (Last Updated: 07/20/2019 13:02:39 EST by STEWART WILD, RN) Home/Environment: Lives with Spouse. Living situation: Home/Independent. Home equipment: Glucose monitoring. (Last Updated: 07/20/2019 13:03:10 EST by STEWART WILD, RN) Employment/School: Retired (Last Updated: 07/20/2019 13:03:15 EST by STEWART WILD, RN) Infectious Disease History Date of COVID-19 Test : 03/26/2020 EST ALEXUS LINN RN - 03/28/2020 6:24 EST Has the patient ever been tested for COVID-19? : No, Screening today for COVID-19 Where was the COVID-19 Testing completed? : [facility] Date of COVID-19 test known? : Yes Does patient have symptoms of COVID-19? : No COVID19 Screening : No Experiencing Infectious Disease Symptoms : No symptoms Physical contact outside [place] in the last 30 days : No Heidi Zamora Rn - 03/26/2020 10:05 EST Infectious Disease History : Chicken pox/Shingles, Measles, Mumps, Pertussis (Whooping cough) Tuberculosis Symptoms : None Yessy Wilson Nurse Public Health Staff Nurse - 03/22/2020 14:19 EDT COVID19 PreProcedure Screening Date of COVID-19 test known? : Yes Date of COVID-19 Test : 03/26/2020 EST Exposed to COVID19 symptoms since test? : Yes ALEXUS LINN RN - 03/28/2020 6:24 EST Is this an Emergent or Add on Procedure? : No Yessy Wilson Nurse Public Health Staff Nurse - 03/22/2020 14:19 EDT Anesthesia/Transfusion History Family History of Anesthesia Reaction : No prior transfusion(s) Blood Transfusion Acceptable to Patient : Yes Transfusion History : Prior anesthesia without reaction Family History of Anesthesia Reaction : None Yessy Wilson Nurse Public Health Staff Nurse - 03/22/2020 14:19 EDT Functional Assessment Functional ADL Evaluation Index EBN Bathing : Independent (2) Dressing : Independent (2) Toileting : Independent (2) Transferring Bed or Chair : Independent (2) Continence : Independent (2) Feeding : Independent (2) Yessy Wilson Nurse Public Health Staff Nurse - 03/22/2020 14:19 EDT ADL Index Score : 12 Yessy Wilson Nurse Public Health Staff Nurse - 03/22/2020 14:19 EDT Advance Directive Patient has Advance Directive *Q : Yes, Advance Directive not with the patient Advance Directive Type : Living will, Medical durable power of state's attorney (proxy) Medical Durable Power of Heddler Name : Yayo Yeh Yessy Wilson Nurse Public Health Staff Nurse - 03/22/2020 14:19 EDT Spiritual/Cultural Needs Any Spiritual/Cultural Needs or Requests : Yes Spiritual/Cultural Needs Comment : morning of surgery Spiritual/Cultural Needs Comment : morning of surgery Yessy Wilson Nurse Public Health Staff Nurse - 03/22/2020 14:19 EDT [place] Suicide Severity Rating Scale (C-SSRS) CSSRS Past Month Wish to be : No CSSRS Past Month Suicidal Thoughts : No CSSRS Lifetime Suicide Behavior : No Suicide Severity Rating Score : 0 Suicide Severity Rating : No Additional Care Required at this time Yessy Wilson Nurse Public Health Staff Nurse - 03/22/2020 14:19 EDT Psychosocial History Currently in Unsafe Situation : No Yessy Wilson Nurse Public Health Staff Nurse - 03/22/2020 14:19 EDT General Info Legal Guardian : No Support Person/Patient Gum Cook : Yes Support Person/Pt Rep Name : Ti yeh - spouse Contact Password : [facility] Support Person/Pt Rep Contact Information : [phone] Want Family/Rep/Phys Notified of Admit : No Yessy Wilson Nurse Public Health Staff Nurse - 03/22/2020 14:19 EDT Emergency Contact #1 : `Ti Yeh Emergency Contact #1 ` Emergency Contact #1 Relationship : ` Heidi Zamora Rn - 03/26/2020 10:05 EST Emergency Contact #2 : ` Emergency Contact #2 Phone Number : ` Emergency Contact #2 Relationship : ` Primary Language : Paraguayan Communication Barrier : None Clay Modeler Needed : No Yessy Wilson Nurse Public Health Staff Nurse - 03/22/2020 14:19 EDT Quinten Scale Quinten Sensory Perception : No impairment Quinten Moisture : Rarely moist Quinten Activity : Walks occasionally Quinten Mobility : No limitation Quinten Nutrition : Adequate Quinten Friction and Shear : No apparent problem Quinten Score : 21 Yessy Wilson Nurse Public Health Staff Nurse - 03/22/2020 14:19 EDT Sleep Apnea Risk Assmt BiPAP/CPAP Used at Home : No Reason BiPAP/CPAP Not Used at Home : Claustrophobia BiPAP/CPAP Ordered for Home Use : Yes Heidi Zamora Rn - 03/26/2020 10:05 EST Hx of Obstructive Sleep Apnea Diagnosis : Yes Age over 50 Years Old : Yes Gender Male : No Yessy Wilson Nurse Public Health Staff Nurse - 03/22/2020 14:19 EDT documented in this encounter Plan of Treatment Upcoming Encounters Date Type Department Care Team (Late st Contact Info) Description 05/14/2025 8:00 AM EST Lab Patient Walk-In [facility] - [place] [address] [place] [address] 05/14/2025 8:30 AM EST Appointment [facility] [place] [address] [place] [address] Neptali Bergman MD [address] [place] [address] [address] [place] [address] 05/14/2025 10:00 AM EST Appointment [facility] MRI - [address] [facility] [address] [place] [address] Neptali Bergman MD [address] [place] [address] [address] [place] [address] 05/14/2025 2:15 PM EST Office Visit [facility] - [place] [address] [place] [address] Neptali Bergman MD [address] [place] [address] [address] [place] [address] documented as of this encounter Visit Diagnoses Not on filedocumented in this encounter Care Teams Cutter Woodwind Reeds Relationship Specialty Start Date End Date Jonas Navas MD [address] [facility] [address] [place] [address] PCP - General Cardiothoracic Surgery 04/15/22 07/23/22 Marcell Uriostegui MD [address] [place] [address] PCP - General Adolescent Medicine 07/24/22 04/05/23 Heidi Rivers, ROMERO [address] [place] [address] PCP - General Nurse Practitioner 04/06/23 Neptali Bergman MD [facility] [address] [address] Hematology and Oncology 10/31/24 documented as of this encounter
--- OUTSIDE RECORDS SUMMARY | 2025-04-30 09:23 | XMS_ITS | Encounter Summary ---
Author Organization [email or web address] ([place], [place], [place], [place], [place]) Address [address] [place] [address] Care Team Providers Care Lead Game Designer Name Role Phone Jonas Navas MD Primary Care Provider [phone] Marcell Uriostegui MD Primary Care Provider + [phone] Haroldo Rivers APRN Primary Care Provider + [phone] Lu Bergman MD Unavailable [phone] Encounter Details Date Type Department Care Team (Late st Contact Info) Description 03/20/2021 Transcribed Document [facility] Family Medicine [facility] [place] [address] ProviderJennifer MD [address] [place] [address] Social History Tobacco Use Types Packs/Day Years Used Date Smoking Tobacco: Never Assessed Comments Unknown Sex and Gender Information Value Date Recorded Sex Assigned at Not on file Legal Sex Female 1:09 PM CDT Gender Identity Not on file Sexual Orientation Not on file documented as of this encounter Miscellaneous Notes * Cerner Conversion Note - Jennifer ProviderMD - 03/20/2021 12:54 PM CDT [facility] [place] [address] ALEJANDRINA YEH :1955 Visit Time:03/20/2021 Your Visit Summary Your Care Team Admitting Physician - LU BERGMAN MD-ONC Attending Physician - LU BERGMAN MD-ONC Primary Care Physician - HAROLDO RIVERS NP-FAM Referring Physician - LU BERGMAN MD-ONC Your Diagnosis Malignant neoplasm of upper lobe, left bronchus or lung, Malignant neoplasm of upper lobe, left bronchus or lung These Are Your Goals No qualifying data available. Discharge Vitals Heart Rate (Monitored) 110 Respiratory Rate 39 Blood Pressure 111/61 What to do next Instructions From Your Care Team Diet after Discharge: Resume usual diet as tolerated Activity after Discharge: Rest and relax today, No strenuous activity, No lifting/pushing/pulling more than 10 pounds for 1 week., Minimize use to the affected arm for the first week and avoid lifting the arm above your head. Driving Restrictions: No driving for 24 hours. Showering/Bathing: May shower in 3 days., No tub bathing, soaking or swimming for 3-5 days until site is healed. Medications: No changes to your current home medications., Dressing Instructions: Remove the dressing in 72 hours. , You have Dermabond (skin glue) that will come off on its own over the next 2-4 weeks., cover your site with saran wrap or press and seal for 1 week when showering. Follow-Up Appointments Follow Up with LU BERGMAN MD-ONC When Comments Follow-up as instructed Where: [address] [place] [address]- Medications What How Much When Instructions Next Dose albuterol (Albuterol (Eqv-ProAir HFA) 90 mcg/ inh inhalation aerosol) 2 Puff(s) Inhalation Every 6 Hours as needed for Wheezing albuterol-ipratropium (DuoNeb 0.5 mg-2.5 mg/ 3 mL inhalation solution) 3 Milliliter(s) Nebulized Inhalation Every 6 Hours ALPRAZolam (Xanax 0.5 mg oral tablet) 1 Tablet(s) Oral Two Times A Day as needed for for anxiety aspirin (aspirin 325 mg oral delayed release tablet) 1 Tablet(s) Oral Every Day atorvastatin (Lipitor 40 mg oral tablet) 1 Tablet(s) Oral At Bedtime fluticasone nasal (fluticasone 50 mcg/ inh nasal spray) 2 [place](s) Nasal Every Day as needed for Nasal Congestion hydrochlorothiazide-lisinopril (hydroCHLOROthiazide-lisinopril 12.5 mg-20 mg oral tablet) 1 Tablet(s) Oral Every Day omeprazole (PriLOSEC 20 mg oral delayed release capsule) 1 Capsule(s) Oral Every Day ondansetron (ondansetron 8 mg oral tablet) 1 Tablet(s) Oral Three Times A Day as needed for Nausea/Vomiting Take your medications faithfully. Do NOT skip [...] This Visit No Immunizations Found Education Materials Implanted Port Insertion, Care After This sheet gives you information about how to care for yourself after your procedure. Your health care provider may also give you more specific instructions. If you have problems or questions, contact your health care provider. What can I expect after the procedure? After the procedure, it is common to have: ??? Discomfort at the port insertion site. ??? Bruising on the skin over the port. This should improve over 3???4 days. Follow these instructions at home: Port care ??? After your port is placed, you will get a patent legal assistant's information card. The card has information about your port. Keep this card with you at all times. ??? Take care of the port as told by your health care provider. Ask your health care provider if you or a family member can get training for taking care of the port at home. A home health care nurse may also take care of the port. ??? Make sure to remember what type of port you have. Incision care ??? Follow instructions from your health care provider about how to take care of your port insertion site. Make sure you: ? Wash your hands with soap and water before and after you change your bandage (dressing). If soap and water are not available, use hand bleacher operator. ? Change your dressing as told by your health care provider. ? Leave stitches (sutures), skin glue, or adhesive strips in place. These skin closures may need to stay in place for 2 weeks or longer. If adhesive strip edges start to loosen and curl up, you may trim the loose edges. Do not remove adhesive strips completely unless your health care provider tells you to do that. ??? Check your port insertion site every day for signs of infection. Check for: ? Redness, swelling, or pain. ? Fluid or blood. ? Warmth. ? Pus or a bad smell. Activity ??? Return to your normal activities as told by your health care provider. Ask your health care provider what activities are safe for you. ??? Do not lift anything that is heavier than 10 lb (4.5 kg), or the limit that you are told, until your health care provider says that it is safe. General instructions ??? Take wdyd-ffp-jyifklu and prescription medicines only as told by your health care provider. ??? Do not take baths, swim, or use a hot tub until your health care provider approves. Ask your health care provider if you may take showers. You may only be allowed to take sponge baths. ??? Do not drive for 24 hours if you were given a sedative during your procedure. ??? Wear a medical alert bracelet in case of an emergency. This will tell any health care providers that you have a port. ??? Keep all follow-up visits as told by your health care provider. This is important. Contact a health care provider if: ??? You cannot flush your port with saline as directed, or you cannot draw blood from the port. ??? You have a fever or chills. ??? You have redness, swelling, or pain around your port insertion site. ??? You have fluid or blood coming from your port insertion site. ??? Your port insertion site feels warm to the touch. ??? You have pus or a bad smell coming from the port insertion site. Get help right away if: ??? You have chest pain or shortness of breath. ??? You have bleeding from your port that you cannot control. Summary ??? Take care of the port as told by your health care provider. Keep the patent legal assistant's information card with you at all times. ??? Change your dressing as told by your health care provider. ??? Contact a health care provider if you have a fever or chills or if you have redness, swelling, or pain around your port insertion site. ??? Keep all follow-up visits as told by your health care provider. This information is not intended to replace advice given to you by your health care provider. Make sure you discuss any questions you have with your health care provider. Document Revised: 12/06/2018 Document Reviewed: 12/06/2018 [employer] Patient Education ?? 202 [employer] Moderate Conscious Sedation, Adult, Care After This sheet gives you information about how to care for yourself after your procedure. Your health care provider may also give you more specific instructions. If you have problems or questions, contact your health care provider. What can I expect after the procedure? After the procedure, it is common to have: ??? Sleepiness for several hours. ??? Impaired judgment for several hours. ??? Difficulty with balance. ??? Vomiting if you eat too soon. Follow these instructions at home: For at least 24 hours after the procedure: ??? Rest. ??? Do not: ? Participate in activities where you could fall or become injured. ? Drive. ? Use machinery. ? Drink alcohol. ? Take sleeping pills or medicines that cause drowsiness. ? Make important decisions or sign legal documents. ? Take care of children on your own. Eating and drinking ??? Follow the diet recommended by your health care provider. ??? Drink enough fluid to keep your urine pale yellow. ??? If you vomit: ? Drink water, juice, or soup when you can drink without vomiting. ? Make sure you have little or no nausea before eating solid foods. General instructions ??? Have a responsible adult stay with you until you are awake and alert. ??? Take ncxt-rfz-yedtort and prescription medicines only as told by your health care provider. ??? Do not smoke. ??? Keep all follow-up visits as told by your health care provider. This is important. Contact a health care provider if: ??? You are still sleepy or having trouble with balance after 24 hours. ??? You feel light-headed. ??? You keep feeling nauseous or you keep vomiting. ??? You develop a rash. ??? You have a fever. ??? You have redness or swelling around the IV site. Get help right away if: ??? You have trouble breathing. ??? You have new-onset confusion at home. Summary ??? After the procedure, it is common to feel sleepy, have impaired judgment, or feel nauseous if you eat too soon. ??? Rest after you get home. Know the things you should not do for at least 24 hours after the procedure. ??? Follow the diet recommended by your health care provider and drink enough fluid to keep your urine pale yellow. ??? Get help right away if you have trouble breathing or new-onset confusion at home. This information is not intended to replace advice given to you by your health care provider. Make sure you discuss any questions you have with your health care provider. Document Revised: 04/04/2020 Document Reviewed: 04/04/2020 Else[employer] Patient Education ?? 2020 [employer] Emergency Awareness and Preventative Care STROKE is [...] Assistance with quitting is available by contacting 5-967-XDID-NOW. This is a free resource providing counseling, support, and referral. Or you may contact your personal physician. [place] Suicide Prevention Lifeline: The National Suicide Prevention [...] CPR? There are two easy steps: Call 9-1-1 if you see a teen or adult [...] This Visit (last charted value for your 03/20/2021 visit) Coagulation 03/20/2021 9:51 AM INR: 1.0 -- Normal range between ( 0.9 and 1.2 ) PT: 10.3 Second(s) -- Normal range between ( 9.2 and 12.0 ) Patient Name:ALEJANDRINA YEH I have received and understand this information and was given the opportunity to ask questions. Patient/Architectural Inspector Name: Patient/Architectural Inspector Signature: Relationship to Patient: Clinician/Hospital Architectural Inspector Signature: Date: documented in this encounter Plan of Treatment Upcoming Encounters Date Type Department Care Team (Late st Contact Info) Description 05/14/2025 8:00 AM EST Lab Patient Walk-In [facility] - [address] [place] [address] 05/14/2025 8:30 AM EST [facility]ointment [facility] [address] [facility] [address] [place] [address] Lu Bergman MD [address] [place] [address] 05/14/2025 10:00 AM EST Appointment [facility] - [facility] [address] [facility] [address] [place] [address] Lu Bergman MD [address] [place] [address] 05/14/2025 2:15 PM EST Office Visit [facility] - [place] [address] [place] [id number] Lu Bergman MD [address] [facility] [address] [place] [address] documented as of this encounter Visit Diagnoses Not on filedocumented in this encounter Care Teams Lead Game Designer Relationship Specialty Start Date End Date Jonas Navas MD [address] [facility] [address] [place], [place] [id number] PCP - General Cardiothoracic Surgery 04/15/22 07/23/22 Marcell Uriostegui MD [address] [facility] [address] [place] [address] PCP - General Adolescent Medicine 07/24/22 04/05/23 Haroldo Rivers, ROMERO [address] [facility] [address] [place], [place] [id number] PCP - General Nurse Practitioner 04/06/23 Lu Bergman MD [address] [facility] [address] [place] [address] Hematology and Oncology 10/31/24 documented as of this encounter
--- OUTSIDE RECORDS SUMMARY | 2025-04-30 09:23 | XMS_ITS | Encounter Summary ---
Author Organization [employer] ([place], [place], [place], [place], [place]) Address [address] [place] [address] Care Team Providers Care Fabric Worker Foreman Name Role Phone Jonas Navas MD Primary Care Provider [phone] Marcell Uriostegui MD Primary Care Provider + [phone] Heidi Rivers APRN Primary Care Provider + [phone] Lu Hitchcock MD Unavailable [phone] Encounter Details Date Type Department Care Team (Late st Contact Info) Description 12/09/2020 Transcribed Document [facility] Radiology [address] [place] [address] Clemente Garcia MD [address] [place] [address] Social History Tobacco Use Types Packs/Day Years Used Date Smoking Tobacco: Never Assessed Comments Unknown Sex and Gender Information Value Date Recorded Sex Assigned at Not on file Legal Sex Female 1:09 PM CDT Gender Identity Not on file Sexual Orientation Not on file documented as of this encounter Miscellaneous Notes * Cerner Conversion Note - Clemente Garcia MD - 12/09/2020 4:35 PM EDT Patient: ALEJANDRINA YEH Age: 65 Years Sex: Female : 1955 Admit Date 2020 00:20 Discharge Date 12-09-2020 Primary Care Provider SRINATH, NOT LISTED Discharge Diagnosis Acute hypoxemic respiratory failure 12/09/2020 J96.01 ICD-10-CM anemia Non-ACS elevation of troponin in the context of acute respiratory failure *Acute resp failure -Lung CA with mets *ASCVD -hx PTCA 1993 *HTN *COPD Sfjqm-ur-ghrzlzr hypercapnic respiratory failure Intubated at OSH on 12/01/20 and extubated on 12/05/20 COPD, acute exacerbation, no PFTs for review pt with tobacco abuse history 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 MRSA screen positive. Immune suppressed host GERD Altered mental status - Acute confusion and hallucinations. Possible ICU delirium versus steroid-induced psychosis. 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 Also mediastinal and hilar adenopathy noted. Reason for Hospitalization 65-year-old female with history of lung cancer, multiple medical problems, hypertension, hyperlipidemia, history of coronary artery disease. The patient with lung adenocarcinoma with metastasis, admitted at outlying facility for respiratory failure. The patient was intubated on vent. Then, the patient transferred to [facility] for evaluation. The patient was brought in by ambulance. Blood work done when she came in shows hypokalemia with slightly elevated troponin and anemia. The patient on vent, sedated. No family at bedside. Hospital Course Acute respiratory failure. The patient intubated on vent. Pulmonary consulted. The patient with history of adenocarcinoma of lung, history of chronic obstructive pulmonary disease. We will monitor the patient closely. Further recommendation as per Pulmonary. 2. History of lung cancer with metastasis. We will consult heme/oncologist for evaluation. 3. Hypertension. Start hydralazine as needed. 4. Pneumonia. Culture was ordered. Start the patient on IV Zosyn doxycycline. 5. Diabetes mellitus. She will be on sliding scale. 6. Anemia. The patient's hemoglobin dropped from 11.7 to 8.4. We will start Protonix and we will consult Gastrointestinal. 7. Gastrointestinal prophylaxis, Protonix. 8. Deep venous prophylaxis, compression boot seen by sage lara on 12-04 who stated: Anemia Patient is currently critically ill, sedated, and intubated on a mechanical vent. Due to lack of overt blood loss, current chemotherapy treatment, and patient's clinical status, it is not felt that endoscopy would not be recommended at this time. Continue to monitor h/h and transfuse as needed per primary team. Would reconsider endoscopy if signs of overt bleeding. seen by rn vascular lori on 12-04 who stated: Non-ACS elevation of troponin in the context of acute respiratory failure *Acute resp failure -Lung CA with mets *ASCVD -hx PTCA 1993 *HTN *COPD PLAN; S/p mild cardiac biomarker elevation, Troponins are trending down. most likely secondary to mismatch oxygen demand prior to intubation. We'll get an echocardiogram to assess ejection fraction. It is unremarkable no further workup is indicated at this time. 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 MRSA screen positive. Immune suppressed host GI GERD Neuro Altered mental status - Acute confusion and hallucinations. Possible ICU delirium versus steroid-induced psychosis. 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 Also mediastinal and hilar adenopathy noted. Discussed with patient's at bedside about the CT scan findings noted on my review. Defer to oncologist to decide about further course of action. Patient is already on treatment for metastatic adenocarcinoma of the lung with Avastin, Alimta and carboplatin. Received second cycle few days ago. In spite of that patient is having progressive cancer. Poor prognosis from cancer point of view. Apparently PET CT scan from September 2020 did not show the left lingular mass and it has showed up on current CT scan done on December 01, 2020. This happened while she is getting her chemotherapy as mentioned above. PLAN: -Patient continues to improve, sat well on 2 L oxygen. Of note patient on 2 to 3 L oxygen at home. -DuoNebs Q6hH/ Pulmicort nebs BID -Currently on prednisone 40 mg daily today. 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 Recommend titrate steroids down to 30 in a week and cut down by 10 mg every week. Patient needs PCP prophylaxis before discharge given still be on steroids more than 20 days. Recommend Bactrim -Hallucinations-resolved, on Seroquel 25 mg twice daily. -Encourage IS. -Hemodynamics: Stable. -ID: Current antibiotics: Zosyn, Doxy, recommend total of 8 days. Blood cultures: NGTD. Sputum cultures: Negative. MRSA screen: POSITIVE Urine culture: Klebsiella pneumoniae Pneumonia PCR panel: Negative. Trend procalcitonin, CBC w/diff -Cleared by speech and swallow evaluation team for oral diet. -Glycemic control: SSIq6 -Prophylaxis: Pepcid/Heparin SQ Q8 -Keep HOB elevated, lights on during the day. -Oncology following. Dr. Hitchcock is well aware of the case. -Labs and images reviewed. -Spoke to the patient as well as the at the bedside patient continues to improve, chest x-ray reviewed showed improvement of the left lower lobe atelectasis opacity, patient will need to follow-up with senior sales assistant in 4 weeks. -I informed the patient that she will be scheduled to see me in 4 weeks, patient agreed seen by lu hitchcock [facility] 12-04 thru 12-09 he stated: Adenocarcinoma of lung, MR brain normal and chest without recurrence. Thrombocytopenia from chemotherapy-monitor, History of lung cancer with metastasis. Followed by oncology. mets to brain cyberknife august by jie per -lu hitchcock consutled -check MRi head given CADET- no [...] , and smear -secondary to chemo per noah #. Anemia. Stable-follow. -hg 8.6 to 8.2 to 7.8 to 7.9 #. COPD-acute exacerbation- weaning IV steroids. Continue inhaled bronchodilators. -prednsione 40 qd -on chronic steroids per [facility]. #. Visual hallucinations-could be due to pain [...] date of age 60 25 November 2020 [facility]. Recheck a CBC CMP in the morning [...] very nice family and they are from [place] where they see primary care provider Dr. Jordy Akers. These to see Dr. 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 Nonetheless the patient's is very pleased with [...] this afternoon. I did discuss with Dr. Ding Vital Signs T: 36.7 ??C TMIN: 36.4 ??C TMAX: 37.4 ??C HR: 76(Monitored) RR: 18 BP: 137/79 SpO2: 97% HT: 157.48 cm WT: 80.03 kg BMI: 32.27 Oxygen Settings (Last) Oxygen Therapy Mode: Nasal cannula (12/09/20 10:13:00) Oxygen Flow Rate: 2 Liter/Min (12/09/20 10:42:00) Discharge Disposition Home Discharge Follow Up MILTON DING MD - Within 6 weeks Discharge Medications (11) Active Albuterol (Eqv-ProAir HFA) 90 mcg/inh inhalation aerosol 2 Puff, PRN, Inhalation, Q6H aspirin 325 mg oral delayed release tablet 325 mg = 1 Tab, Oral, Daily Bactrim 400 mg-80 mg oral tablet 1 Tab, Oral, DS- 3 x a week per pulm DuoNeb 0.5 mg-2.5 mg/3 mL inhalation solution 3 mL, Nebulized Inhalation, Q6H fluticasone 50 mcg/inh nasal spray 2 [employer], PRN, Nasal, Daily folic acid 1 mg oral tablet 1 mg = 1 Tab, Oral, Daily Lipitor 40 mg oral tablet 40 mg = 1 Tab, Oral, At Bedtime ondansetron 8 mg oral tablet 8 mg = 1 Tab, PRN, Oral, TID predniSONE 10 mg oral tablet 20 mg = 2 Tab, Oral, Daily. 40mg po qd x 1 week then decrease by 10 mg every week PriLOSEC 20 mg oral delayed release capsule 20 mg = 1 Cap, Oral, Daily Xanax 0.5 mg oral tablet 0.5 mg = 1 Tab, PRN, Oral, BID Code Status Start: 12/04/20 0:45:00 EDT, Full Code, Continuous Order Condition on Discharge stable Consulting Physicians JAIME FARLEY MD (Pulmonary Services) - resp failure LU HITCHCOCK MD-ONC - thombocytopenia SERGE JARAMILLO MD-ONC MANNY LARA MD BOLLAVARAM, NAGABHUSHANAM, MD QUISENBERRY, CLEMENTE Hardwick MD-INT AL-DLIW, MD MILTON Current Diet Order Diet, Adult - Ordered -- Start: 12/09/20 10:04:00 EDT, Liquid Consistency: Thin Liquid, 60 gm carbs:[id number] toby, Isolation: Standard Precautions Patient Discharge Summary Orders Discharge Activity: Discharge Activity: No strenuous activities Diet: Discharge Diet: Resume usual diet as tolerated Pending Labs In Transit HIT Reflex-BCW Specimen Type: Blood, Routine collect, 12/08/20 11:00:00 EDT, 1-Time, Stop: 12/08/20 12:00:00 EDT, Lab Collect In-Lab Blood Smear Review For Pathologist Specimen Type: Blood, thrombocytopenia, Routine collect, 12/08/20 11:01:00 EDT, 1-Time, Stop: 12/08/20 12:00:00 EDT, Lab Collect Ordered BMP Basic Metabolic Panel Specimen Type: Blood, AM Draw collect, 12/05/20 4:00:00 EDT, Daily, Nurse Collect Time Spent on Discharge 35 mins spent on follow up and dc. greater than 50% time on counseling and coordination documented in this encounter Plan of Treatment Upcoming Encounters Date Type Department Care Team (Late st Contact Info) Description 05/14/2025 8:00 AM EST Lab Patient Walk-In [facility] - [address] [place] [address] 05/14/2025 8:30 AM EST Appointment [facility] - [facility] [address] [facility] [address] [place] [address] Lu Hitchcock MD [address] [place] [address] 05/14/2025 10:00 AM EST Appointment [facility] - [address] [place] [address] Lu Hitchcock MD [address] [facility] [address] [place] [address] 05/14/2025 2:15 PM EST Office Visit [facility] - [address] [place] [address] Lu Hitchcock MD [address] [facility] [address] [place] [address] documented as of this encounter Visit Diagnoses Not on filedocumented in this encounter Care Teams Fabric Worker Foreman Relationship Specialty Start Date End Date Jonas Navas MD [address] [facility] [address] [place], [place] [id number] PCP - General Cardiothoracic Surgery 04/15/22 07/23/22 Marcell Uriostegui MD [address] [place] [address] [place] [address] PCP - General Adolescent Medicine 07/24/22 04/05/23 Heidi Rivers, ROMERO [address] [facility] [address] [place] [address] PCP - General Nurse Practitioner 04/06/23 Lu Hitchcock MD [address] [facility] [address] [place] [address] Hematology and Oncology 10/31/24 documented as of this encounter
--- OUTSIDE RECORDS SUMMARY | 2025-04-30 09:23 | XMS_ITS | Encounter Summary ---
Author Organization [employer] ([place], [place], [place], [place], [place]) Address [address] [place] [address] Care Team Providers Care Buttonhole Facer Name Role Phone Jonas Navas MD Primary Care Provider [phone] Marcell Uriostegui MD Primary Care Provider + [phone] Heidi Rivers APRN Primary Care Provider + [phone] Neptali Bergman MD Unavailable [phone] Encounter Details Date Type Department Care Team (Late st Contact Info) Description 03/28/2020 Transcribed Document [facility] [place] Family Medicine [address] [place] [address] ProviderJennifer MD [address] [place] [address] Social History Tobacco Use Types Packs/Day Years Used Date Smoking Tobacco: Never Assessed Comments Unknown Sex and Gender Information Value Date Recorded Sex Assigned at Not on file Legal Sex Female 1:09 PM CDT Gender Identity Not on file Sexual Orientation Not on file documented as of this encounter Miscellaneous Notes * Cerner Conversion Note - Historical ProviderMD - 03/28/2020 3:37 PM HUMAN RELATIONS PROFESSOR Spiritual Care Short Form Entered On: 03/28/2020 16:26 EST Performed On: 03/28/2020 15:37 EST by LINSEY ROSALES General Information, Spiritual Care Spiritual Care Referred by : Patient Intervention/Comment/Summary Points : Responded to request for food voucher; Gave one food voucher; Provided pastoral prayer upon request; Ms. Yeh and expressed gratitude LINSEY ROSALES - 03/28/2020 16:25 EST documented in this encounter Plan of Treatment Upcoming Encounters Date Type Department Care Team (Late st Contact Info) Description 05/14/2025 8:00 AM EST Lab Patient Walk-In [facility] - [address] [place] [address] 05/14/2025 8:30 AM EST Appointment [facility] [address] [place] [address] Neptali Bergman MD [address] [facility] [address] [place] [address] 05/14/2025 10:00 AM EST Appointment [facility] - [address] [facility] [address] [place] [address] Neptali Bergman MD [facility] [address] [place] [address] 05/14/2025 2:15 PM EST Office Visit [facility] - [address] [place] [address] Neptali Bergman MD [address] [place] [address] [address] [place] [address] documented as of this encounter Visit Diagnoses Not on filedocumented in this encounter Care Teams Buttonhole Facer Relationship Specialty Start Date End Date Jonas Navas MD [address] [facility] [address] [place] [address] PCP - General Cardiothoracic Surgery 04/15/22 07/23/22 Marcell Uriostegui MD [address] [place] [address] PCP - General Adolescent Medicine 07/24/22 04/05/23 Heidi Rivers APRN [address] [facility] [address] [place] [address] PCP - General Nurse Practitioner 04/06/23 Neptali Bergman MD [address] [facility] [address] [place] [address] Hematology and Oncology 10/31/24 documented as of this encounter
--- OUTSIDE RECORDS SUMMARY | 2025-04-30 09:23 | XMS_ITS | Encounter Summary ---
Author Organization [employer] ([place], [place], [place], [place], [place]) Address [address] [place] [address] Care Team Providers Care Filling Mixer Name Role Phone Jonas Navas MD Primary Care Provider [phone] Marcell Uriostegui MD Primary Care Provider + [phone] Heidi Rivers APRN Primary Care Provider [phone] Neptali Bergman MD Unavailable [phone] Encounter Details Date Type Department Care Team (Late st Contact Info) Description 03/20/2021 Transcribed Document [facility] [place] [facility] [place] [address] ProviderJennifer MD [address] [place] [address] Social History Tobacco Use Types Packs/Day Years Used Date Smoking Tobacco: Never Assessed Comments Unknown Sex and Gender Information Value Date Recorded Sex Assigned at Not on file Legal Sex Female 1:09 PM CDT Gender Identity Not on file Sexual Orientation Not on file documented as of this encounter Miscellaneous Notes * Cerner Conversion Note - Jennifer ProviderMD - 03/20/2021 12:53 PM CDT Nursing Discharge Summary Entered On: 03/20/2021 12:53 EDT Performed On: 03/20/2021 12:53 EDT by YONG ALCAZAR RN Discharge Documentation Discharge Date/Time : 03/20/2021 13:20 EDT Transporter Signature : YONG ALCAZAR, RN YONG ALCAZAR RN - 03/20/2021 13:06 EDT Patient Disposition, General : Discharge Discharge To : Home with ambulatory/outpatient follow-up Mode Of Departure, General Discharge : Private vehicle Accompanied By, Discharge : Spouse IV Discontinued : Yes Personal Belongings With Patient : Yes Discharge Instructions Reviewed With, Opportunity For Questions Given : Patient, Spouse Patient Education Completed : Yes Teaching Method : Explanation, Printed materials Teaching Evaluation : Verbalizes understanding, Patient/Caregiver decline education YONG ALCAZAR RN - 03/20/2021 12:53 EDT Electronically signed by Hossein [facility] Conversion Hydraulic Chair Assembler Cerner at 09/10/2022 12:35 AM CDT documented in this encounter Plan of Treatment Upcoming Encounters Date Type Department Care Team (Late st Contact Info) Description 05/14/2025 8:00 AM EST Lab Patient Walk-In [facility] - [address] [place] [address] 05/14/2025 8:30 AM EST Appointment [facility] CT - [address] [place] [address] Neptali Bergman MD [address] [place] [address] [address] [place] [address] 05/14/2025 10:00 AM EST Appointment [facility] MRI - [address] [place] [address] Neptali Bergman MD [address] [place] [address] [address] [place] [address] 05/14/2025 2:15 PM EST Office Visit [facility] - [address] [place] [address] Neptali Bergman MD [address] [place] [address] [address] [place] [address] documented as of this encounter Visit Diagnoses Not on filedocumented in this encounter Care Teams Filling Mixer Relationship Specialty Start Date End Date Jonas Navas MD [address] [facility] [address] [place] [address] PCP - General Cardiothoracic Surgery 04/15/22 07/23/22 Marcell Uriostegui MD [address] [facility] [address] [place] [address] PCP - General Adolescent Medicine 07/24/22 04/05/23 Heidi Rivers APRN [address] [facility] [address] [place] [address] PCP - General Nurse Practitioner 04/06/23 Neptali Bergman MD [address] [facility] [address] [place] [address] Hematology and Oncology 10/31/24 documented as of this encounter
--- OUTSIDE RECORDS SUMMARY | 2025-04-30 09:23 | XMS_ITS | Encounter Summary ---
Author Organization [employer] ([place], [place], [place], [place], [place]) Address [address] [place] [address] Care Team Providers Care Strike Off Machine Operator Name Role Phone Jonas Navas MD Primary Care Provider [phone] Marcell Uriostegui MD Primary Care Provider + [phone] Heidi Rivers APRN Primary Care Provider + [phone] Neptali Bergman MD Unavailable [phone] Encounter Details Date Type Department Care Team (Late st Contact Info) Description 03/28/2020 Transcribed Document [facility] [address] [place] [address] ProviderJennifer MD [address] [place] [address] Social History Tobacco Use Types Packs/Day Years Used Date Smoking Tobacco: Never Assessed Comments Unknown Sex and Gender Information Value Date Recorded Sex Assigned at Not on file Legal Sex Female 1:09 PM CDT Gender Identity Not on file Sexual Orientation Not on file documented as of this encounter Miscellaneous Notes * Cerner Conversion Note - Jennifer ProviderMD - 03/28/2020 8:55 AM OCCUP THER [facility] Main OR IntraOp Summary Primary Physician: RICKY ROMANO MD-URO Finalized Date/Time: 03/30/20 16:44:05 Pt. Name: ALEJANDRINA YEH /Sex: 1955 Female Med Rec #: [id number] Physician: RICYK ROMANO MD-URO Financial #: [id number] Pt. Type: I Room/Bed: [facility] Admit/Disch: 03/28/20 06:42:00 - 03/30/20 13:18:00 Institution: [facility] IntraOp Case Attendance Entry 1 Entry 2 Entry 3 Case Attendee RICKY ROMANO, ANNI CHAPA, RESIDENT Liliya Watson RN MD-URO Role Performed Surgeon/Proceduralist, Resident Setter [employer] Machines, First First Time In 03/28/20 08:13:00 03/28/20 08:13:00 03/28/20 08:13:00 Time Out 03/28/20 10:34:00 03/28/20 10:34:00 03/28/20 10:34:00 Procedure Adrenalectomy Adrenalectomy Adrenalectomy Robotic(Left) Robotic(Left) Robotic(Left) Other Attendee Superficial Wound Closed By: Last Modified By: Liliya Watson RN Poff, Janie, RN Poff, Janie, RN 03/28/20 14:55:15 03/28/20 14:55:15 03/28/20 14:55:15 Entry 4 Entry 5 Entry 6 Case Attendee RORO MILLER SWINFORD, ASHLEE, CRNA SUGGS, ANTOINE A. MD-ANS Role Performed Anesthesiologist of SCRUB WOMAN/Nurse Imposer Infrastructure Consultant, First Record Time In 03/28/20 08:13:00 03/28/20 08:13:00 03/28/20 08:13:00 Time Out 03/28/20 10:34:00 03/28/20 10:34:00 03/28/20 09:21:00 Procedure Adrenalectomy Adrenalectomy Adrenalectomy Robotic(Left) Robotic(Left) Robotic(Left) Other Attendee Superficial Wound Closed By: Last Modified By: Liliya Watson RN Poff, Janie, RN Poff, Janie, RN 03/28/20 14:55:15 03/28/20 14:55:15 03/28/20 14:55:15 Entry 7 Entry 8 Entry 9 Case Attendee RANDY VASQUEZ, RN YANG CERDA Tracy R, Rn Role Performed Setter [employer], First Scrub, First Setter [employer], First Time In 03/28/20 08:00:00 03/28/20 08:13:00 03/28/20 09:24:00 Time Out 03/28/20 08:30:00 03/28/20 10:34:00 03/28/20 09:45:00 Procedure Adrenalectomy Adrenalectomy Adrenalectomy Robotic(Left) Robotic(Left) Robotic(Left) Other Attendee Break relief Superficial Wound Closed By: Last Modified By: Liliya Watson RN Poff, Janie, RN Poff, Janie, RN 03/28/20 14:55:15 03/28/20 14:55:15 03/28/20 14:55:15 Entry 10 Case Attendee OTHER, ATTENDEE #1 Role Performed Student Time In 03/28/20 08:13:00 Time Out 03/28/20 10:34:00 Procedure Adrenalectomy Robotic(Left) Other Attendee [facility] FELISA STUDENT Superficial Wound Closed By: Last Modified By: Liliya Watson RN 03/28/20 14:55:15 [facility] IntraOp Case Attendance Audit 03/28/20 14:55:15 Java Developer Analyst: RAFA Modifier: POJAY 1 <*> Procedure Adrenalectomy Robotic(Left) 2 <*> Procedure Adrenalectomy Robotic(Left) 3 <*> Procedure Adrenalectomy Robotic(Left) 4 <*> Procedure Adrenalectomy Robotic(Left) 5 <*> Procedure Adrenalectomy Robotic(Left) 6 <*> Procedure Adrenalectomy Robotic(Left) 7 <*> Procedure Adrenalectomy Robotic(Left) 8 <*> Procedure Adrenalectomy Robotic(Left) 9 <*> Procedure Adrenalectomy Robotic(Left) 10 <+> Time In 10 <+> Time Out 10 <*> Procedure Adrenalectomy Robotic(Left) 03/28/20 14:55:10 Java Developer Analyst: RAFA Modifier: POFFJAN 9 <*> Time Out 03/28/20 10:34:00 9 <*> Procedure Adrenalectomy Robotic(Left) <+> 10 Case Attendee <+> 10 Role Performed <+> 10 Procedure <+> 10 Other Attendee 03/28/20 10:39:05 Java Developer Analyst: RAFA Modifier: POBENNYJAN 1 <+> Time Out 1 <*> Procedure Adrenalectomy Robotic(Left) 2 <+> Time Out 2 <*> Procedure Adrenalectomy Robotic(Left) 3 <+> Time Out 3 <*> Procedure Adrenalectomy Robotic(Left) 4 <+> Time Out 4 <*> Procedure Adrenalectomy Robotic(Left) 5 <+> Time Out 5 <*> Procedure Adrenalectomy Robotic(Left) 6 <*> Procedure Adrenalectomy Robotic(Left) 7 <*> Procedure Adrenalectomy Robotic(Left) 8 <+> Time Out 8 <*> Procedure Adrenalectomy Robotic(Left) 9 <+> Time Out 9 <*> Procedure Adrenalectomy Robotic(Left) 03/28/20 10:04:52 Java Developer Analyst: CARMENFFSURAJ Modifier: POFFJAN <+> 1 Procedure <+> 2 Procedure <+> 3 Procedure <+> 4 Procedure <+> 5 Procedure <+> 6 Procedure <+> 7 Procedure <+> 8 Procedure <+> 9 Procedure 03/28/20 10:04:40 Java Developer Analyst: RAFA Modifier: POFFJAN 1 <-> Procedure Adrenalectomy Laparoscopic(Left) 2 <+> Time In 2 <-> Procedure Adrenalectomy Laparoscopic(Left) 3 <+> Time In 3 <-> Procedure Adrenalectomy Laparoscopic(Left) 4 <+> Time In 4 <-> Procedure Adrenalectomy Laparoscopic(Left) 5 <+> Time In 5 <-> Procedure Adrenalectomy Laparoscopic(Left) 6 <+> Time In 6 <-> Procedure Adrenalectomy Laparoscopic(Left) 7 <-> Procedure Adrenalectomy Laparoscopic(Left) 8 <+> Time In 8 <-> Procedure Adrenalectomy Laparoscopic(Left) 9 <-> Procedure Adrenalectomy Laparoscopic(Left) [facility] IntraOp Case Times Entry 1 Patient In Room Time 03/28/20 08:13:00 Out Room Time 03/28/20 10:34:00 Anesthesia Start Time 03/28/20 08:13:00 Stop Time 03/28/20 10:34:00 Surgery / Procedure Times Start Time 03/28/20 08:55:00 Stop Time 03/28/20 10:21:00 Last Modified By: Liliya Watson RN 03/28/20 10:39:00 [facility] IntraOp Case Times Audit 03/28/20 10:39:00 Java Developer Analyst: RAFA Modifier: POFFJAN <+> 1 Out Room Time <+> 1 Stop Time 03/28/20 10:21:57 Java Developer Analyst: RAFA Modifier: POFFJAN <+> 1 Stop Time [facility] IntraOp Cautery Entry 1 ESU Identification Cautery Type Monopolar ESU ID Number [id number] ID Type Hospital Number Cautery Settings Cut Setting 3 Coag Setting 3 Bipolar Setting 3 ESU Grounding Pad Ground Pad Type Adult Grounding Pad Site Left thigh Grounding Pad Liliya Watson RN Applied By Grounding Pad Site Dry, Intact, Warm Skin Condition Before Cautery Grounding Pad Site Unchanged Skin Condition After Cautery Last Modified By: Liliya Watson RN 03/28/20 10:13:07 [facility] IntraOp Communication Entry 1 Entry 2 Communication To Family/Significant other Family/Significant other Comment PROCEDURE START UPDATE/CLOSING Communication By Liliya Watson RN Poff, Janie, RN Date and Time 03/28/20 08:36:00 03/28/20 10:00:00 Last Modified By: Liliya Watson RN Poff, Janie, RN 03/28/20 10:15:41 03/28/20 10:15:41 [facility] IntraOp Counts Verification Entry 1 Procedure Adrenalectomy Robotic(Left) Count Info Count Type Sponge, Sharps, Instrument, Miscellaneous Counts Verification Baseline/pre-procedure Sequence Count Results Not Applicable Counts Performed By Count Performed By YANG CERDA (Scrub) Count Performed By RANDY VASQUEZ RN (RN) Last Modified By: Liliya Watson RN 03/28/20 10:11:32 [facility] IntraOp Counts Final Entry 1 Procedure Adrenalectomy Robotic(Left) Final Count Info Count Type Sponge, Sharps, Miscellaneous Counts Verification Skin Closure/end of Sequence procedure Count Results Correct, surgeon notified Counts Performed By Count Performed By ASHLYN HALE (Scrub) Count Performed By Liliya Watson RN (RN) Last Modified By: Liliya Watson RN 03/28/20 10:12:28 [facility] IntraOp Cultures and Spec Summary Entry 1 Cultrures and Specimens Specimen Ordered: Yes Test(s) Routine/Path-Lab Requested/Final Disposition Last Modified By: Liliya Watson RN 03/28/20 10:16:21 General Comments: A. LEFT ADRENAL GLAND [facility] IntraOp Delays Entry 1 Delay Reason Incorrect scheduling Duration 13 Minute(s) Last Modified By: Liliya Watson RN 03/28/20 10:18:09 [facility] IntraOp Departure from OR Entry 1 Integumentary Assessment Integumentary WDL with patient Assessment WDL specific variances Patient's Normal SURGICAL INCISIONS = Integumentary ABDOMEN Variance(s) Transfer/Handoff Transfer to PACU Phase I Handoff Method Phone call Handoff Reported to Omid Sanz RN Post-op Transport Stretcher/Gurney Via Patient Transport ANNI CHAPA RESIDENT, Accompanied by ESME DEL REAL CRNA Last Modified By: Liliya Watson RN 03/28/20 10:19:32 [facility] IntraOp Dressing and Packing Entry 1 Type Dressing Location Abdomen Wound Dressing Item Skin Closure Glue Applied By ANNI CHAPA RESIDENT Last Modified By: Liliya Watson RN 03/28/20 10:34:46 [facility] IntraOp Fire Risk Assessment Entry 1 Fire Info Surgical Site or 0- No Incision Above the Xyphoid Open O2 Source 0- No (Mask or Cannula) Available Ignition 1- Yes (ESU, Laser, Light Source) Fire Risk 1 Assessment Score Fire Score Fire Risk Yes Assessment Complete Fire Risk Liliya Watson RN Assessment Verified By Fire Risk 03/28/20 08:54:00 Assessment Verified Date/Time Fire Risk Standard Fire Yes Safety Precautions Followed Last Modified By: Liliya Watson RN 03/28/20 10:08:10 [facility] IntraOp Fire Risk Assessment Audit 03/28/20 10:08:10 Java Developer Analyst: RAFA Modifier: RAFA 1 <*> Open O2 Source (Mask or Cannula) 1- Yes 1 <*> Fire Risk Assessment Score 2 1 <+> Fire Risk Assessment Verified Date/Time [facility] IntraOp General Case Pattern Clerk 1 Case Information OR OR 03 [facility] Case Level 1 Room Verified Yes Wound Class II - Clean-Contaminated Specialty SN Urology Anesthesia Type General ASA Class 3 Diagnosis Preop Diagnosis LEFT RENAL MASS Postop Same As Preop Yes Postop Diagnosis LEFT RENAL MASS Last Modified By: Liliya Watson RN 03/28/20 10:19:59 [facility] IntraOp General Case Data Audit 03/28/20 10:19:59 Java Developer Analyst: RAFA Modifier: RAFA 1 <+> ASA Class 1 <*> Wound Class I - Clean 1 <+> Anesthesia Type 1 <+> Postop Same As Preop 1 <+> Preop Diagnosis 1 <+> Postop Diagnosis 1 <+> Room Verified [facility] IntraOp Intraoperative Assessment Entry 1 Handoff Method Online nursing summary Valid History / Yes Physical in Chart Preoperative Yes Checklist Reviewed/Evaluated Allergies Reviewed Yes Patient is Latex No Sensitive Isolation Not applicable Precautions Noted Level of WDL Consciousness (WDL = Alert, Oriented to Person, Place, and Time) Skin Assessment Yes Verified Present Upon IVs Arrival to OR Last Modified By: Liliya Watson RN 03/28/20 10:10:58 [facility] IntraOp Intraoperative Equipment Entry 1 Type Monitoring Equipment Equipment Pastora Suction System ID Number [id number] Intraop Monitoring Electrocardiogram Five lead placement (ECG) Electrode Placement Blood Pressure Arterial Pressure Line Source Blood Pressure Arterial Location Antiembolic Devices Antiembolic Devices Sequential compression device, knee high Antiembolic Device Bilateral Location Antiembolic Device [id number] ID Number Scopes Photo/Video Documentation Photo No Video No Intraop Equipment SEQUENTIAL COMPRESSION Comment DEVICE ON AND IN OPERATION PRIOR TO INDUCTION. Last Modified By: Liliya Watson RN 03/28/20 10:21:16 [facility] IntraOp Patient Positioning Entry 1 Procedure Adrenalectomy Robotic(Left) Body Position Lateral, left side up Left Arm Position Resting at side Right Arm Position Secured on padded arm board Left Leg Position Other Right Leg Position Other Position Comments Left leg extended, right leg flexed Feet Uncrossed Yes Pressure Points Yes Checked Positioning Devices Adhesive Tape, Arm Board, Head Rest, Pad, Elbow, Pillows, Roll, Axillary, Roll (Other), Roll (Other), Pad, Heel, Pad (Other), Safety Strap, Thighs Pad/Roll Location additional unp under right ankle and right knee Positioned By Liliya Watson RN, RICKY ROMANO MD-URO, ANNI CHAPA, RESIDENT, ESME DEL REAL, ALLAN, GEOFFREY, ASHLYN Mccurdy Position Verified Positioning Yes Verified by Anesthesia Positioning Yes Verified by Surgeon Last Modified By: Liliya Watson RN 03/28/20 10:04:53 [facility] IntraOp Patient Positioning Audit 03/28/20 10:04:53 Java Developer Analyst: RAFA Modifier: TINYJAN <+> 1 Procedure 03/28/20 10:04:41 Java Developer Analyst: RAFA Modifier: RAFA 1 <-> Procedure Adrenalectomy Laparoscopic(Left) [facility] IntraOp Sign In Entry 1 Patient, Site, Yes Procedure Identified Surgical Consent Yes Confirmed Relevant Surgical Yes Documents Available Surgical Site Yes Marked by person performing procedure Anesthesia Machine Yes Check Completed Medication Checks Yes Completed Allergies Yes Airway Difficult Yes Airway/Aspiration Risk Difficult Yes Airway/Aspiration Intervention Equipment Available Blood Loss Risk Yes Blood Loss Yes Intervention Equipment Prepared and Ready Blood Identifiers Yes Verified Per Policy Hypothermia Risk Yes Warming Measures Yes Taken Last Modified By: Liliya Watson RN 03/28/20 10:18:35 [facility] IntraOp Sign Out Entry 1 RN Confirmation Surgical Yes Procedure(s) Identified Instrument, Sponge Yes and Sharps Counts Correct/Documented Equipment Problems N/A Documented Specimen Labeled Yes Correctly Urinary Catheter Yes Documented in IView Ge Patient Yes Recovery Concerns Reviewed with Anesthesia Provider, Surgeon and RN Ge Patient Yes Management Concerns Reviewed with Anesthesia Provider, Surgeon and RN Safety Checklist Yes Elements Complete? RN Sign Out Liliya Watson RN Signature RN Sign Out 03/28/20 10:37:00 Signature Date/Time Plan of Care Outcome - Fire Risk OUTCOME STATEMENT: Goal met Patient is free from injury related to surgical fire Plan of Care Outcome - Pt Positioning OUTCOME STATEMENT: Goal met Absence of signs and symptoms of positioning injury. Plan of Care Outcome - Skin Prep OUTCOME STATEMENT: Goal met Intraoperative care is consistent with measures to prevent infection Plan of Care Outcome - Xray/Images OUTCOME STATEMENT: N/A Absence of observable signs or symptoms of radiation injury Plan of Care Outcome - Counts OUTCOME STATEMENT: Goal met Absence of signs and symptoms of injury related to extraneous objects Last Modified By: Liliya Watson RN 03/28/20 10:38:00 [facility] IntraOp Skin Prep Entry 1 Procedure Adrenalectomy Robotic(Left) Prescribed Yes Pre-Surgical Prep Completed Prep Area ABDOMEN Intraop Prep Integumentary WDL Assessment WDL Prep Agents Chloraprep Prep by Liliya Watson RN Hair Removal Methods No hair removal performed Last Modified By: Liliya Watson RN 03/28/20 10:38:50 [facility] IntraOp Surgical Procedures Entry 1 Procedure Adrenalectomy Robotic Modifiers Left Additional ROBOTIC ASSISTED Procedure LAPAROSCOPIC LEFT Description ADRENALECTOMY Primary Procedure Yes Primary Surgeon RICKY ROMANO MD-URO Start 03/28/20 08:55:00 Stop 03/28/20 10:21:00 Anesthesia Type General Specialty SN Urology Wound Class II - Clean-Contaminated Last Modified By: Liliya Watson RN 03/28/20 10:34:47 [facility] IntraOp Surgical Procedures Audit 03/28/20 10:34:47 Java Developer Analyst: RAFA Modifier: RAFA <+> 1 Stop 03/28/20 10:04:48 Java Developer Analyst: CARMENBENNYSURAJ Modifier: CARMENBENNYSURAJ 1 <*> Procedure Adrenalectomy Laparoscopic [facility] IntraOp Temp Regulation Devices Entry 1 Temp Regulation Temperature Warm blankets, Forced Regulation Device Air Warming device Temperature 80661 Regulation Device Serial/Unit Number Temperature Upper body Regulation Site Temperature NASIMA, ESME, SCRUB WOMAN Regulation Device Applied by Last Modified By: Liliya Watson RN 03/28/20 10:21:51 [facility] IntraOP Time Out Entry 1 Procedure to be Adrenalectomy Performed Robotic(Left) Time Out Time Out Pause Time 03/28/20 08:54:00 All activity Yes suspended (unless life threatening emergency) Team Verbally Correct patient Confirms Information identity, Correct side and site are marked, Consent form is present and accurate, Agreement on the procedure to be done, Correct patient position, Relevant images/results properly labeled/appropriately displayed, Confirm antibiotics have been administered, Confirm the skin prep has dried, Confirm prosthesis/implant/devic e is present, Performed in location of procedure after prepped/draped Antibiotic Yes Prophylaxis Administered Or In Progress Within the Last 60 Minutes Beta Fabrice N/A Administered Venous Yes Thromboembolism Prophylaxis Required Anticipated Critical Events Surgeon None expected Anesthesia Provider None expected Nursing Assures Sterility of instruments, Implant Availability Essential Imaging Yes Labeled and Displayed Last Modified By: Liliya Watson RN 03/28/20 10:10:49 Case Comments <None> Finalized By: CUONG BRAND Document Signatures Signed By: Liliya Watson RN 03/28/20 10:44 Liliya Watson RN 03/28/20 14:55 CUONG BRAND 03/30/20 16:44 Unfinalized History Date/Time Username Reason for Unfinalizing Freetext Reason for Unfinalizing 03/28/20 14:53 RAFA Correct Documentation 03/30/20 16:40 WATTSDR Correct Billing documented in this encounter Plan of Treatment Upcoming Encounters Date Type Department Care Team (Late st Contact Info) Description 05/14/2025 8:00 AM EST Lab Patient Walk-In [facility] - [address] [place] [address] 05/14/2025 8:30 AM EST Appointment [facility] [address] [place] [address] Neptali Bergman MD [address] [place] [address] [address] [place] [address] 05/14/2025 10:00 AM EST Appointment [facility] - [address] [facility] [address] [place] [address] Neptali Bergman MD [address] [place] [address] [address] [place] [address] 05/14/2025 2:15 PM EST Office Visit [facility] - [address] [place] [address] Neptali Bergman MD [address] [place] [address] [address] [place] [address] documented as of this encounter Visit Diagnoses Not on filedocumented in this encounter Care Teams Strike Off Machine Operator Relationship Specialty Start Date End Date Jonas Navas MD [address] [facility] [address] [place], [place] [id number] PCP - General Cardiothoracic Surgery 04/15/22 07/23/22 Marcell Uriostegui MD [address] [place] [address] [place] [address] PCP - General Adolescent Medicine 07/24/22 04/05/23 Heidi Rivers, WRAPPER STRIPPER [address] [place] [address] PCP - General Nurse Practitioner 04/06/23 Neptali Bergman MD [address] [address] Hematology and Oncology 10/31/24 documented as of this encounter
--- OUTSIDE RECORDS SUMMARY | 2025-04-30 09:23 | XMS_ITS | Encounter Summary ---
Author Organization [employer] ([place], [place], [place], [place], [place]) Address [address] [place] [address] Care Team Providers Care Laboratory Associate Name Role Phone Jonas Navas MD Primary Care Provider [phone] Marcell Uriostegui MD Primary Care Provider + [phone] Heidi Rivers APRN Primary Care Provider + [phone] Neptali Bergman MD Unavailable [phone] Encounter Details Date Type Department Care Team (Late st Contact Info) Description 08/07/2019 Transcribed Document [facility] [place] [address] ProviderJennifer MD [address] [place] [address] Social History Tobacco Use Types Packs/Day Years Used Date Smoking Tobacco: Never Assessed Comments Unknown Sex and Gender Information Value Date Recorded Sex Assigned at Not on file Legal Sex Female 1:09 PM CDT Gender Identity Not on file Sexual Orientation Not on file documented as of this encounter Miscellaneous Notes * Cerner Conversion Note - Jennifer Arroyo MD - 08/07/2019 11:25 AM CDT PLEASE MODIFY BEFORE SIGNING CLINICAL DOCUMENTATION CLARIFICATION FORM: Dear : Jonas Navas MD-CAT Date / Time: 08/07/2019 / 10:25 CT Please exercise your independent, professional judgment in responding to the clarification form. Clinical indicators are provided on the bottom of this form for your review Please check appropriate box(es): [ ] Left pneumothorax is a complication of current/recent surgery [ x ] Left pneumothorax is not a complication of current/recent surgery [ ] Other diagnosis [ ] Unable to determine Physician Signature: Date/Time: For continuity of documentation, please document condition throughout progress notes and discharge summary. Thank You. To be completed by CDI/Coding staff for physician review: Present Clinical Indicators - Signs / Symptoms / Labs Results and Location in Medical Record [ X ] CT / x-ray results 07/30 CR Chest Impression ??? small left pneumothorax [ X ] Documentation of pneumothorax 07/30 PN, Dr. Jonas Navas ??? small left pneumothorax with less than 1cm of pleural separation. Present Risk Factors Results and Location in Medical Record [ X ] Recent surgery 07/24 Op Report, Dr. Jonas Navas: Left upper lobectomy [ X ] Chronic Conditions 07/24 H&P: Lung cancer, COPD 07/25 PN, Dr. Jonas aNvas: Nicotine dependence with withdrawal Present Treatments Results and Location in Medical Record [ X ] Chest tube 07/24 Op Report, Dr. Jonas Navas: 32-Portuguese chest tube was placed through a separate anterior stab incision [ X ] Oxygen Therapy 07/24-08/01 Respiratory therapy results review: nasal cannula, 4L/min Bead Worker Sewing Signature: Ellen Xiong CCS Phone #: [phone] Date/Time: 08/07/2019 / 10:25 CT This is a permanent part of the Medical Record [id number] 2019 [facility] Updated: documented in this encounter Plan of Treatment Upcoming Encounters Date Type Department Care Team (Late st Contact Info) Description 05/14/2025 8:00 AM EST Lab Patient Walk-In [facility] - [address] [place] [address] 05/14/2025 8:30 AM EST Appointment [facility] - [address] [facility] [address] [place] [address] Neptali Bergman MD [address] [place] [address] 05/14/2025 10:00 AM EST Appointment [facility] - [address] [place] [address] Neptali Bergman MD [address] [facility] [address] [place] [address] 05/14/2025 2:15 PM EST Office Visit [facility] - [address] [place] [address] Neptali Bergman MD [address] [facility] [address] [place] [address] documented as of this encounter Visit Diagnoses Not on filedocumented in this encounter Care Teams Laboratory Associate Relationship Specialty Start Date End Date Jonas Navas MD [address] [facility] [address] [place], [place] [id number] PCP - General Cardiothoracic Surgery 04/15/22 07/23/22 Marcell Uriostegui MD [address] [place] [address] PCP - General Adolescent Medicine 07/24/22 04/05/23 Heidi Rivers, PROFILE GRINDER [address] [place] [address] PCP - General Nurse Practitioner 04/06/23 Neptali Bergman MD [address] [facility] [address] [place] [address] Hematology and Oncology 10/31/24 documented as of this encounter
--- OUTSIDE RECORDS SUMMARY | 2025-04-30 09:23 | XMS_ITS | Encounter Summary ---
Author Organization [employer] ([place], [place], [place], [place], [place]) Address [address] [place] [address] Care Team Providers Care Sales Service Technician Name Role Phone Jonas Navas MD Primary Care Provider [phone] Marcell Uriostegui MD Primary Care Provider + [phone] Heidi Rivers APRN Primary Care Provider + [phone] Nepatli Bergman MD Unavailable [phone] Encounter Details Date Type Department Care Team (Late st Contact Info) Description 03/28/2020 Transcribed Document [facility] [place] Family Medicine [address] [place] [address] ProviderJennifer MD [address] [place] [address] Social History Tobacco Use Types Packs/Day Years Used Date Smoking Tobacco: Never Assessed Comments Unknown Sex and Gender Information Value Date Recorded Sex Assigned at Not on file Legal Sex Female 1:09 PM CDT Gender Identity Not on file Sexual Orientation Not on file documented as of this encounter Miscellaneous Notes * Cerner Conversion Note - Jennifer Arroyo MD - 03/28/2020 10:49 AM CONTROL CENTER OPERATOR DATE OF PROCEDURE: 03/28/2020 SURGEON: Darryl Santamraia MD PREOPERATIVE DIAGNOSIS: History of lung cancer with left adrenal mass. POSTOPERATIVE DIAGNOSIS: History of lung cancer with left adrenal mass. PROCEDURE PERFORMED: Robotic-assisted laparoscopic left adrenalectomy. ANESTHESIA: General. ASBESTOS ABATEMENT WORKER: Rocio Burk MD DRAINS: None. SPECIMEN: Left adrenal gland. COMPLICATIONS: None. ESTIMATED BLOOD LOSS: Less than 50 mL. BRIEF HISTORY: The patient is a 64-year-old female diagnosed with lung carcinoma earlier this year. She had a wedge resection. Several months later, she developed a left abdominal wall nodule. This was excised and proved to be metastatic lung cancer. Followup PET scan showed a new hypermetabolic left adrenal nodule about a centimeter and half in size. After discussing this, this was concerning for metastatic disease and she presents today for left adrenalectomy. Risks were discussed including bleeding, infection, intraabdominal injury of associated organs. She understands and wished to proceed. DESCRIPTION OF PROCEDURE: General anesthesia was administered. Sequential compression garments were placed and functioned at the time of induction. A Scott catheter was placed and she was positioned in the standard right lateral decubitus position. She was secured to the table in standard fashion. The abdomen was prepped and draped in standard fashion. A time-out was called. Pneumoperitoneum was established in the left upper quadrant using the Veress needle. The robot port was placed just above and lateral to the left of the midline and the umbilicus. There were no significant intraabdominal adhesions. One lap into right standard format. The robotic ports were placed under visualization. The assistant prosecuting attorney port was placed in approximately mid epigastric area. The robot was docked without difficulty. The left colon was mobilized from the pelvic outlet to the level of the spleen and reflected off the splenic flexure to nicely expose the introitus fascia. This area was carefully exposed and small leaf of the adrenal gland identified. The kidney was mobilized no further. Very carefully, the adrenal gland was exposed and had obviously enlarged since her CT scan. Large adrenal vein was controlled with two Hem-o-loks, but the remainder was carefully controlled with bipolar electrocautery. The entire adrenal gland was mobilized nicely and intact. She was placed in an EndoCatch bag and extracted through the 12 mm assistant prosecuting attorney port. There was no significant bleeding. Pneumoperitoneum was released and the area inspected once again. All looked acceptable. The robot was undocked. The 12 mm assistant prosecuting attorney port was closed carefully with 0 PDS. The skin was reapproximated with a 4-0 Monocryl on all incisions. The patient was converted back to supine position, awakened, extubated, transferred to postop recovery room in stable condition. /[id number] Darryl Santamaria MD TDA/AQ / TDA / MODL /[id number] CC: MD Neptali Oseguera MD Electronically signed by [facility] Conversion Clarifier Operator Cerner at 09/10/2022 12:31 AM CDT documented in this encounter Plan of Treatment Upcoming Encounters Date Type Department Care Team (Late st Contact Info) Description 05/14/2025 8:00 AM EST Lab Patient Walk-In [facility] - [facility] [address] [place] [address] 05/14/2025 8:30 AM EST Appointment [facility] [address] [facility] [address] [place] [address] Neptali Bergman MD [address] [place] [address] [address] [place] [address] 05/14/2025 10:00 AM EST Appointment [facility] MRI - [facility] [address] [facility] [address] [place] [address] [place] [address] [place] [address] [address] [place] [address] 05/14/2025 2:15 PM EST Office Visit [facility] - [place] [address] [place] [address] [place] [address] [place] [address] [address] [place] [address] documented as of this encounter Visit Diagnoses Not on filedocumented in this encounter Care Teams Sales Service Technician Relationship Specialty Start Date End Date Jonas Navas MD [address] [facility] [address] [place] [address] PCP - General Cardiothoracic Surgery 04/15/22 07/23/22 Marcell Uriostegui MD [address] [facility] [address] [place] [address] PCP - General Adolescent Medicine 07/24/22 04/05/23 Heidi Rivers, ROMERO [address] [facility] [address] [place] [address] PCP - General Nurse Practitioner 04/06/23 Neptali Bergman MD [address] [facility] [address] [place] [address] Hematology and Oncology 10/31/24 documented as of this encounter
--- OUTSIDE RECORDS SUMMARY | 2025-04-30 09:23 | XMS_ITS | Encounter Summary ---
Author Organization [employer] ([place], [place], [place], [place], [place]) Address [address] [place] [address] Care Team Providers Care Vacuum Spindle Sander Name Role Phone Jonas Navas MD Primary Care Provider [phone] Marcell Uriostegui MD Primary Care Provider + [phone] Heidi Rivers APRN Primary Care Provider + [phone] Neptali Bergman MD Unavailable [phone] Encounter Details Date Type Department Care Team (Late st Contact Info) Description 08/03/2019 Transcribed Document [facility] [place] [address] [place] [address] ProviderJennifer MD [address] [place] [address] Social History Tobacco Use Types Packs/Day Years Used Date Smoking Tobacco: Never Assessed Comments Unknown Sex and Gender Information Value Date Recorded Sex Assigned at Not on file Legal Sex Female 1:09 PM CDT Gender Identity Not on file Sexual Orientation Not on file documented as of this encounter Miscellaneous Notes * Cerner Conversion Note - Jennifer ProviderMD - 08/03/2019 8:11 AM CDT Discharge Summary, PT Entered On: 08/03/2019 8:12 EDT Performed On: 08/03/2019 8:11 EDT by ADRIAN BROWN PTA Discharge Summary Discharge Summary Provider Notified : Nursing, Physical Therapy Reason for Discharge : Discharged from hospital Discharged to, Therapy : Home, with home health ADRIAN BROWN PTA - 08/03/2019 8:11 EDT Discharge Summary Comment, PT : pt discharged from hospital to home with home health, per last PTx - pt modified independent for sit <> stand, pt ambulated 450' with supervision and no AD Reviewed by and agreed to by PT MATTHEW BENSON, PT - 08/03/2019 13:10 EDT Short Term Goals Mobility/Bed Mobility STG PT Grid Goal #1 Activity : Supine to sit Assist : Independent, modified Equipment : Bed, hospital Date to Meet : 08/03/2019 EDT Goal Status : Goal met Date Met : 08/02/2019 EDT ADRIAN BROWN PTA - 08/03/2019 8:11 EDT Ambulation STG Grid Goal #1 Device : Walker, front wheel Distance : 150 ft w/O2 sats >87% Assist : Supervision or set-up Date to Meet : 08/03/2019 EDT Goal Status : Not met ADRIAN BROWN PTA - 08/03/2019 8:11 EDT Duralumin Metalworker Goals Mobility/Bed Mobility LTG PT Grid Goal #1 Activity : Sit to stand Assist : Independent, modified Equipment : Walker, front wheel Date to Meet : 08/10/2019 EDT Goal Status : Goal met ADRIAN BROWN PTA - 08/03/2019 8:11 EDT Ambulation LTG Grid Goal #1 Device : Walker, front wheel Distance : 375 ft w/O2 sats >87% Assist : Supervision or set-up Date to Meet : 08/10/2019 EDT Goal Status : Not met ADRIAN BROWN PTA - 08/03/2019 8:11 EDT documented in this encounter Plan of Treatment Upcoming Encounters Date Type Department Care Team (Late st Contact Info) Description 05/14/2025 8:00 AM EST Lab Patient Walk-In [facility] [facility] - [facility] [address] [place] [address] 05/14/2025 8:30 AM EST Appointment [facility] CT [address] [place] [address] Neptali Bergman MD [address] [facility] [address] [place] [address] 05/14/2025 10:00 AM EST Appointment [facility] MRI - [address] [place] [address] Neptali Bergman MD [address] [facility] [address] [place] [address] 05/14/2025 2:15 PM EST Office Visit [facility] - [place] [address] [place] [address] Neptali Bergman MD [address] [facility] [address] [place] [address] documented as of this encounter Visit Diagnoses Not on filedocumented in this encounter Care Teams Vacuum Spindle Sander Relationship Specialty Start Date End Date Jonas Navas MD [address] [facility] [address] [place], [place] [id number] PCP - General Cardiothoracic Surgery 04/15/22 07/23/22 Marcell Uriostegui MD [address] [place] [address] [place] [address] PCP - General Adolescent Medicine 07/24/22 04/05/23 Heidi Rivers, AUTOMOTIVE PARTS ADVISOR [address] [facility] [address] [place] [address] PCP - General Nurse Practitioner 04/06/23 Neptali Bergman MD [address] [facility] [address] [place] [address] Hematology and Oncology 10/31/24 documented as of this encounter
--- OUTSIDE RECORDS SUMMARY | 2025-04-30 09:23 | XMS_ITS | Encounter Summary ---
Author Organization [employer] ([place], [place], [place], [place], [place]) Address [address] [place] [address] Care Team Providers Care Sewing Machines Salesperson Name Role Phone Jonas Navas MD Primary Care Provider [phone] Marcell Uriostegui MD Primary Care Provider + [phone] Heidi Rivers APRN Primary Care Provider + [phone] Neptali Bergman MD Unavailable [phone] Encounter Details Date Type Department Care Team (Late st Contact Info) Description 08/03/2019 Transcribed Document [facility] [facility] [place] [address] ProviderJennifer MD [address] [place] [address] Social History Tobacco Use Types Packs/Day Years Used Date Smoking Tobacco: Never Assessed Comments Unknown Sex and Gender Information Value Date Recorded Sex Assigned at Not on file Legal Sex Female 1:09 PM CDT Gender Identity Not on file Sexual Orientation Not on file documented as of this encounter Miscellaneous Notes * Cerner Conversion Note - Jennifer ProviderMD - 08/03/2019 12:31 PM CDT UM Authorization Entered On: 08/03/2019 12:31 EDT Performed On: 08/03/2019 12:31 EDT by Macy Costello, Farmhand Primary Insurance Authorization Authorization and Policy Numbers : Insurance 1 Health Plan: [email or web address] Policy Number: [id number] Authorization Number: [id number] Insurance Primary Name : [facility] Policy Number: [id number] Authorization Status-Primary : Awaiting callback Auth/Referral Contact Name-Primary : DC Authorization Number-Primary : [id number] Number of Days Authorized-Primary : 3 Day(s) Authorized Service Begin Date-Primary : 07/25/2019 EST Authorized Service End Date-Primary : 07/28/2019 EST Authorization Comments-Primary : Discharge date and summary faxed. Historical Authorization Comments-Primary : Comment 1: Faxed clinicals via [employer] on 07/30 and 08/01. (SURENDRA FRANK, Rn-Utilization Review 08/02/2019 13:11) Comment 2: [place] approved per availity for 4 days inpt (NORI VALVERDE, ASLHEY-Utilization Review 07/21/2019 13:39) Macy Costello, Farmhand - 08/03/2019 12:31 EDT Electronically signed by [facility] Conversion Ssrs Developer Cerner at 09/10/2022 12:31 AM CDT documented in this encounter Plan of Treatment Upcoming Encounters Date Type Department Care Team (Late st Contact Info) Description 05/14/2025 8:00 AM EST Lab Patient Walk-In [place] [facility] - [place] [address] [place] [address] 05/14/2025 8:30 AM EST Appointment [facility] CT - [place] [address] [facility] [address] [place] [address] Neptali Bergman MD [address] [facility] [address] [place] [address] 05/14/2025 10:00 AM EST Appointment [facility] [place] [facility] [address] [facility] [address] [place] [address] Neptali Bergman MD [address] [place] [address] [place] [address] 05/14/2025 2:15 PM EST Office Visit [facility] - [place] [address] [place] [address] Neptali Bergman MD [address] [facility] [address] [place] [address] documented as of this encounter Visit Diagnoses Not on filedocumented in this encounter Care Teams Sewing Machines Salesperson Relationship Specialty Start Date End Date Jonas Navas MD [address] [facility] [address] [place] [address] PCP - General Cardiothoracic Surgery 04/15/22 07/23/22 Marcell Uriostegui MD [address] [facility] [address] [place] [address] PCP - General Adolescent Medicine 07/24/22 04/05/23 Heidi Rivers APRN [address] [facility] [address] [place], [place] [address] PCP - General Nurse Practitioner 04/06/23 Neptali Bergman MD [address] [facility] [address] [place] [address] Hematology and Oncology 10/31/24 documented as of this encounter
--- OUTSIDE RECORDS SUMMARY | 2025-04-30 09:23 | XMS_ITS | Encounter Summary ---
Author Organization [employer] ([place], [place], [place], [place], [place]) Address [address] [place] [address] Care Team Providers Care Drop Wire Hanger Name Role Phone Jonas Naavs MD Primary Care Provider [phone] Marcell Uriostegui MD Primary Care Provider + [phone] Heidi Rivers APRN Primary Care Provider + [phone] Neptali Bergman MD Unavailable [phone] Encounter Details Date Type Department Care Team (Late st Contact Info) Description 12/10/2020 Transcribed Document [facility] [place] [facility] [address] ProviderJennifer MD [address] [place] [address] Social History Tobacco Use Types Packs/Day Years Used Date Smoking Tobacco: Never Assessed Comments Unknown Sex and Gender Information Value Date Recorded Sex Assigned at Not on file Legal Sex Female 1:09 PM CDT Gender Identity Not on file Sexual Orientation Not on file documented as of this encounter Miscellaneous Notes * Cerner Conversion Note - Jennifer ProviderMD - 12/10/2020 9:55 AM CDT Final Discharge Planning Entered On: 12/10/2020 9:55 EDT Performed On: 12/10/2020 9:55 EDT by FRANDY LOONEY RN-Car Framer Final Discharge Planning Discharge Arrangements : Patient Post-Acute Information Patient Name: DHAVAL YEHYCRonen Hardwick Gender: Female : [birth year] Age: 65 Years No Post-Acute Placement(s) Listed No Post-Acute Service(s) Listed No [place] Referral(s) Listed Discharge To Care Management : Home/Residential/[facility] or Self Care -01 FRANDY LOONEY, RN-Car Framer - 12/10/2020 9:55 EDT Electronically signed by [facility] Conversion Range Rider Cerner at 09/10/2022 12:33 AM CDT documented in this encounter Plan of Treatment Upcoming Encounters Date Type Department Care Team (Late st Contact Info) Description 05/14/2025 8:00 AM EST Lab Patient Walk-In [place] [facility] - [place] [address] [place] [address] 05/14/2025 8:30 AM EST Appointment [facility] [address] [facility] [address] [place] [address] Neptali Bergman MD [address] [place] [address] [address] [place] [address] 05/14/2025 10:00 AM EST Appointment [facility] MRI - [address] [facility] [address] [place] [address] Neptali Bergman MD [address] [place] [address] [address] [place] [address] 05/14/2025 2:15 PM EST Office Visit [facility] [facility] - [place] [address] [place] [address] Neptali Bergman MD [address] [place] [address] [address] [place] [address] documented as of this encounter Visit Diagnoses Not on filedocumented in this encounter Care Teams Drop Wire Hanger Relationship Specialty Start Date End Date Jonas Navas MD [address] [facility] [address] [place] [address] PCP - General Cardiothoracic Surgery 04/15/22 07/23/22 Marcell Uriostegui MD [address] [place] [address] PCP - General Adolescent Medicine 07/24/22 04/05/23 Heidi Rivers APRN [address] [facility] [address] [place] [address] PCP - General Nurse Practitioner 04/06/23 Neptali Bergman MD [address] [facility] [address] [place] [address] Hematology and Oncology 10/31/24 documented as of this encounter
--- OUTSIDE RECORDS SUMMARY | 2025-04-30 09:23 | XMS_ITS | Encounter Summary ---
Author Organization [employer] ([place], [place], [place], [place], [place]) Address [address] [place] [address] Care Team Providers Care Macadam Raker Name Role Phone Jonas Navas MD Primary Care Provider [phone] Marcell Uriostegui MD Primary Care Provider + [phone] Heidi Rivers APRN Primary Care Provider + [phone] Lu Bergman MD Unavailable [phone] Encounter Details Date Type Department Care Team (Late st Contact Info) Description 12/09/2020 Transcribed Document [facility] Family Medicine [address] [place] [address] ProviderJennifer MD [address] [place] [address] Social History Tobacco Use Types Packs/Day Years Used Date Smoking Tobacco: Never Assessed Comments Unknown Sex and Gender Information Value Date Recorded Sex Assigned at Not on file Legal Sex Female 1:09 PM CDT Gender Identity Not on file Sexual Orientation Not on file documented as of this encounter Miscellaneous Notes * Cerner Conversion Note - Jennifer ProviderMD - 12/09/2020 8:19 AM CDT Patient: ALEJANDRINA YEH Age: 65 years Sex: Female : 1955 Associated Diagnoses: None Author: LU BERGMAN MD-ONC Attachments: None Subjective Chief complaint Chief complaint No new issues. Breathing stable. Diarrhea continues Health Status Allergies Allergies (6) Active Reaction [...] 0.9% 100 mL 100 mg, IV Piggyback, [id number] famotidine 20 mg tab 20 mg 1 [...] Cardiovascular Normal rate Regular rhythm Gastrointestinal Soft bowel sounds increased Impression and Plan Assessment and Plan Diagnosis Adenocarcinoma of lung, MR brain normal and chest without recurrence. Thrombocytopenia from chemotherapy-monitor, Diarrhea-waiting on C diff result Electronically signed by Hossein, [facility] Conversion Size Tester Cerner at 09/10/2022 12:43 AM CDT documented in this encounter Plan of Treatment Upcoming Encounters Date Type Department Care Team (Late st Contact Info) Description 05/14/2025 8:00 AM EST Lab Patient Walk-In [facility] - [address] [place] [address] 05/14/2025 8:30 AM EST Appointment [facility] CT - [place] [facility] [address] [place] [address] Lu Bergman MD [address] [place] [address] [address] [place] [address] 05/14/2025 10:00 AM EST Appointment [facility] MRI - [facility] [address] [facility] [address] [place] [address] Lu Bergman MD [address] [place] [address] [address] [place] [address] 05/14/2025 2:15 PM EST Office Visit [facility] - [address] [place] [address] Lu Bergman MD [address] [place] [address] [address] [place] [address] documented as of this encounter Visit Diagnoses Not on filedocumented in this encounter Care Teams Macadam Raker Relationship Specialty Start Date End Date Jonas Navas MD [address] [facility] [address] [place] [address] PCP - General Cardiothoracic Surgery 04/15/22 07/23/22 Marcell Uriostegui MD [address] [facility] [address] [place] [address] PCP - General Adolescent Medicine 07/24/22 04/05/23 Heidi Rivers, COMMUNITY INTEGRATION SPECIALIST [address] [place] [address] PCP - General Nurse Practitioner 04/06/23 Lu Bergman MD [address] [facility] [address] [place] [address] Hematology and Oncology 10/31/24 documented as of this encounter
--- OUTSIDE RECORDS SUMMARY | 2025-04-30 09:23 | XMS_ITS | Clinical Summary ---
Author Organization [facility] Address [address] [place] [address] Care Team Providers Care Wildlife Rehabilitator Name Role Phone Jordy Akers MD Primary Care Provider [phone] Allergies Active Allergy Reactions Criticality Noted Date Comments Diltiazem Unknown - High Severity 08/07/2020 Levofloxacin GI Intolerance 08/07/2020 Nadolol Unknown - High Severity 08/07/2020 Sulfa Antibiotics Unknown - High Severity 08/07 Tiotropium [place]-Olodaterol Unknown - High Severity 08/07/2020 Umeclidinium-Vilanterol Unknown [...] Done Comments DXA SCAN 1955 MAMMOGRAM 1995 TDAP/TD VACCINES (1 - Tdap) 08/02/1996 08/01/1996 COLOGUARD 12/03/2000 COLON CANCER SCREENING 5 YEA R SIGMOIDOSCOPY 12/03/2000 COLONOSCOPY 12/03/2000 COLORECTAL CANCER SCREENING 12/03/2000 CT COLONOGRAPHY 12/03/2000 FECAL OCCULT BLOOD TEST 12/03/2000 FIT Testing (1 year) 12/03/2000 Pneumococcal Vaccine 50+ (1 of 1 - PCV) 12/03/2005 ANNUAL PHYSICAL 08/07/2020 HEPATITIS C SCREENING 08/07/2020 INFLUENZA VACCINE 12/22/2024 COVID-19 Vaccine ( season) 01/22/202502/2021 ZOSTER VACCINE Completed 10/18/2019, 05/02/2019 Insurance EMPLOYEE Care Teams Wildlife Rehabilitator Relationship Specialty Start Date End Date Jordy Akers MD [address] [place] [address] PCP - General Internal Medicine 08/07/20
--- OUTSIDE RECORDS SUMMARY | 2025-04-30 09:23 | XMS_ITS | Encounter Summary ---
Author Organization [employer] ([place], [place], [place], [place], [place]) Address [address] [place] [address] Care Team Providers Care Tile Picker Name Role Phone Jonas Navas MD Primary Care Provider [phone] Marcell Uriostegui MD Primary Care Provider + [phone] Heidi Rivers APRN Primary Care Provider + [phone] Neptali Bergman MD Unavailable [phone] Encounter Details Date Type Department Care Team (Late st Contact Info) Description 12/09/2020 Transcribed Document [facility] [place] [facility] [place] [address] ProviderJennifer MD [address] [place] [address] Social History Tobacco Use Types Packs/Day Years Used Date Smoking Tobacco: Never Assessed Comments Unknown Sex and Gender Information Value Date Recorded Sex Assigned at Not on file Legal Sex Female 1:09 PM CDT Gender Identity Not on file Sexual Orientation Not on file documented as of this encounter Miscellaneous Notes * Cerner Conversion Note - Jennifer Arroyo MD - 12/09/2020 3:15 PM CDT Patient: ALEJANDRINA YEH Age: 65 years Sex: Female : 1955 Associated Diagnoses: None Author: MILTON OH MD Basic Information History of Present Illness: This is a 65-year-old female with a past medical history of 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 Patient is currently intubated, sedated, and on mechanical ventilation and no family members at present at bedside; therefore, medical history is primarily retrieved from accompanying chart. Per report, patient presented to outlying facility for altered mental status and worsening somnolence on 12/01/20. Notably, patient told her she has been having intractable headaches for about three weeks. Patient has had cerebral swelling in the past and is currently on steroids; additionally, patient is on chemotherapy treatment for lung cancer, last administration about 6 days ago. During initial evaluation, patient was noted to hemodynamically stable. Initial labs at OSH were reviewed, WBC was WNL. However, patient was noted to be hypoxic, with sats around 65%. She was changed to NRB, which improved her oxygen status to 90%. VBG at OSH showed elevated pCO2 of 86.8. Therefore, she was switched to BiPAP. Repeat VBG status post one hour of BiPAP did not demonstrate significant improvement, per report; therefore, the decision to intubate patient due to her complicated illness was made. Post-intubation ABG showed definite improvement. Per report, ventilator settings at OSH were 20/480/10.0/40%. Our facility was consulted and we accepted patient for transfer since she is known by oncology here. We were consulted for ventilator management in the setting of acute hypoxemic hypercapnic respiratory failure. Past Medical History Lung adenocarcinoma, with brain and abdominal metastases s/p ALINA lobectomy COPD NIDDM GERD HLD HTN OR TIA CAD Past Surgical History ALINA lobectomy Cardiac catheterization Colonoscopy Tubal ligation Appendectomy Angioplasty Social History Tobacco: Former smoker Alcohol: Negative Drugs: Denies Family History Noncontributory 12/05: Patient is intubated, sedated with Precedex and fentanyl, and on mechanical ventilation. She is awake, alert, and follows all commands. RASS -1. Hemodynamically stable. Afebrile, no leukocytosis. Good UOP, about 500 cc overnight. Stable renal function. RN has no acute events overnight to report. Will await for SBT today. On Protonix for prophylaxis. 12/06: Pt extubated yesterday, on 2L NC. Neg 1L/24 hours. No drips. Afebrile and no leukocytosis. RN reports hallucinations otherwise no new overnight events 12/07: Patient seen resting in bed, on room air. Good saturations. Hemodynamically stable. Afebrile. Urine positive for Klebsiella pneumoniae. Good UOP, about 1L overnight. Stable renal function. RN reports patient has A/V hallucinations. Patient is paranoid, states there are cameras watching her at the nursing station. Additionally, she sees bunnies on the ceiling and that Dr. Rosario is talking to her from the ceiling . Notably, patient with chronic thoracic pain use without receiving any inpatient. Resumed per primary, ordered consultation for psychiatric evaluation. Labs/images pending. 12/09: Patient was seen and examined today, no overnight issues, no complaints, currently on 2 L oxygen satting 97%. Patient stated that she is on 3 L oxygen at home. Patient on Zosyn and doxycycline started on the . Urine culture grew Klebsiella on 12/04. Chest x-ray reviewed showed left lower lobe atelectasis but overall improving. Currently patient on 40 mg prednisone daily recommend taper dose Vent Day: 5 (Intubated on 12/01 at OSH)- now extubated PIVL Review of Systems Constitutional: No fever. Eye: No recent visual problem. Ear/Nose/Mouth/Throat: No sore throat. Respiratory: No shortness of breath. Cardiovascular: No chest pain. Gastrointestinal: No nausea, No abdominal pain. Genitourinary: Negative. Musculoskeletal: No back pain. Integumentary: No rash. Neurologic: Confusion. Psychiatric: Hallucinations. Health Status Allergies: Allergic Reactions (All) Severity Not Documented Anoro Ellipta- Chest pain. Corgard- Unknown. DilTIAZem- Unknown. Levaquin- Vomiting. Roxicet- Unknown. Stiolto Respimat 10 ACT- Chest pain and muscle weakness (generalized)., Allergies (6) Active Reaction Anoro Ellipta Chest pain Corgard Unknown dilTIAZem Unknown Levaquin Vomiting Roxicet Unknown Stiolto Respimat 10 ACT Chest pain Current medications: (Selected) Inpatient Medications Ordered Alimta [...] mL: 100 mg, 50 mL/Hr, IV Piggyback, [id number] granisetron: 1 mg, IV Push, 1-Time granisetron: [...] Refill(s) fluticasone 50 mcg/inh nasal spray: 2 [place], Nasal, Daily, PRN: Nasal Congestion, 0 Refill(s) folic acid 1 mg oral tablet: 1 Tab, Oral, Daily, 0 Refill(s) hydroCHLOROthiazide-lisinopril 25 mg-20 mg oral tablet: 1 Tab, Oral, Daily, 30 Tab, 0 Refill(s) ondansetron 8 mg oral tablet: 1 Tab, Oral, TID, PRN: Nausea/Vomiting, 9 Tab, 0 Refill(s) predniSONE 10 mg oral tablet: 2 Tab, Oral, Daily, 40 Tab, 0 Refill(s), Medications (27) Active Scheduled: (8) albuterol-ipratropium inh 3 mL 3 mL, Nebulized Inhalation, RT_Q6H budesonide 0.5 mg/2 mL inh susp 0.5 mg 2 mL, Nebulized Inhalation, RT_BID doxycycline hyclate + NaCl 0.9% 100 mL 100 mg, IV Piggyback, [id number] famotidine 20 mg tab 20 mg 1 [...] 15 mMole 5 mL, IV Piggyback, Q6H Problem list: Medical Claustrophobia / SNOMED CT 14368740 / Confirmed Shortness of breath / SNOMED CT 907207472 / Confirmed GERD - Gastro-esophageal reflux disease / SNOMED CT 1380662692 / Confirmed Hiatal hernia / SNOMED CT 662918981 / Confirmed Diverticulosis / SNOMED CT 2082603171 / Confirmed Diabetes mellitus type II / SNOMED CT 03990227 / Confirmed CA - Lung cancer adenocarcinoma / SNOMED CT 2616467858 / Confirmed History of obstructive sleep apnea / IMO [id number] / Confirmed Inactive: Seasonal allergies / SNOMED CT 5338554128 Canceled: History of obstructive sleep apnea - no c-pap / IMO [id number] Canceled: Chronic cough / SNOMED CT 500197444 Canceled: History of obstructive sleep apnea / IMO [id number] Canceled: Current every day smoker / SNOMED CT 5325086199, Active Problems (18) Arthritis Back pain CA - Lung cancer adenocarcinoma 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 Claustrophobia Coronary artery disease s/p OR Diabetes mellitus type II Diverticulosis GERD - Gastro-esophageal reflux disease H/O: TIA Hiatal hernia High blood pressure History of obstructive sleep apnea Hyperlipidemia Migraine Shortness of breath Sinusitis Sleep apnea no c-pap Physical Examination VS/Measurements Vitals Signs (last 24 hrs) Last Charted Minimum Maximum Temp 98.1 (DEC 09 10:13) 97.6 (DEC 09 02:32) 99.3 (DEC 08 22:12) Mon HR 76 (DEC 09 10:54) 47 (DEC 09 02:32) 104 (DEC 08 16:37) Resp Rate 18 (DEC 09 10:13) 16 (DEC 08 18:00) 18 (DEC 09 09:20) SBP 137 (DEC 09 10:13) 109 (DEC 09 06:30) H 141 (DEC 08 18:00) DBP 79 (DEC 09 10:13) L 54 (DEC 08 22:12) 79 (DEC 09 10:13) MAP 99 (DEC 09 09:20) 66 (DEC 09 06:30) 114 (DEC 08 18:00) SpO2 97 (DEC 09 10:42) L 93 (DEC 09 06:30) 99 (DEC 08 22:00) 2LNC General: No acute distress, on 2L.. Eye: Pupils are equal, round and reactive to light, Normal conjunctiva. HENT: Normocephalic, Oral mucosa is moist. Neck: Supple, No lymphadenopathy. Respiratory: Breath sounds are equal, Respirations easy, nonlabored. No wheezing or rhonchi. Decreased bibasilarly.. Cardiovascular: Normal rate, No edema. Gastrointestinal: Soft, Non-tender, Non-distended, Normal bowel sounds. Integumentary: Warm, Dry, Muse. Neurologic: Alert, Oriented, No focal deficits. Psychiatric: Cooperative, Appropriate mood & affect. Abnormal / Psychotic thoughts: Hallucinations ( Auditory, Visual ). Review / Management Results review: Labs (Last four charted values) WBC 4.5 (DEC 09) 5.5 (DEC 08) 8.2 (DEC 07) 8.7 (DEC 06) HB L 7.9 (DEC 09) L 7.8 (DEC 08) L 9.3 (DEC 07) L 8.2 (DEC 06) HCT L 26.1 (DEC 09) L 26.1 [...] (NOV 16) CO2 31 (DEC 09) 32 (ANTHONY 18) 31 (NOV 17) 29 (NOV 16) BUN H 26 (NOV 19) H 31 (NOV 18) H 31 (NOV 17) H 23 (NOV 16) Cr 0.70 (NOV 19) 0.80 (NOV 18) 0.80 (NOV 17) 0.80 (NOV 16) Glu R L 68 (DEC 09) 106 (NOV 18) H 122 (NOV 17) H 128 (NOV 16) Ca 9.1 (DEC 09) 9.2 (NOV 18) 9.7 (NOV 17) 8.9 (NOV 16) Lactic 1.6 (NOV 16) 1.7 (NOV 15) 1.2 (DEC 04) 0.6 (DEC 04) PT 10.7 (DEC 05) 10.3 (DEC 04) INR 1.0 (DEC 05) 1.0 (DEC 04) AST 16 (DEC 09) 19 (NOV 18) 28 (NOV 17) 23 (NOV 16) ALT 45 (DEC 09) 40 (NOV 18) 50 (NOV 17) 38 (NOV 16) ALK P 55 (DEC 09) 57 (NOV 18) 77 (NOV 17) 68 (NOV 16) T Bili 0.7 (DEC 09) 0.5 (NOV 18) 0.6 (NOV 17) 0.7 (NOV 16) PTN 6.6 (DEC 09) 6.5 (NOV 18) 7.7 (NOV 17) 6.8 (NOV 16) ALB L 3.0 (DEC 09) L 3.0 (NOV 18) 3.5 (NOV 17) L 2.8 (NOV 16) Lipase 81 (DEC 04) Troponin H 0.070 (DEC 04) H 0.165 (DEC 04) . Blood Gases (Current Encounter/Past 24 Hours) No Blood Gas Results Found (Past 24 Hours) Radiology Results (Last 48 hours) [id number] -- 2020 00:20 CR Chest 1 Vw Portable (12/08/2020 07:39) Result: PORTABLE CHEST HISTORY: Dyspnea.COMPARISON: December 07, 2020.FINDINGS: The heart is mildly enlarged in size. The mediastinum isunremarkable. There is pleural parenchymal scarring in the medial lefthemithorax and left lung base. There are chronic changes on the right.Clips are noted in the left hilum. There is no pneumothorax. IMPRESSION: No significant interval change compared to prior.Images reviewed, interpreted, and dictated by Dr. Lorenzo Buck.Transcribed by Kelsey Espinal PA-C.I have personally viewed, interpreted and dictated the examination. Ihave read and agree with the above final transcribed report. MRI Brain WO W (12/08/2020 12:35) Result: PRE AND POST INFUSION BRAIN MRIHISTORY: Altered level of consciousnessFINDINGS: Midline structures appear intact.On the T2 and FLAIR axial images, moderate abnormal signal is identifiedthroughout the deep white matter bilaterally.On the diffusion-weighted images, there is no evidence of restricteddiffusion.On the pre and post-infusion images, no abnormal enhancement is seen.Mild mucoperiosteal thickening is noted within the ethmoid air cells,maxillary sinuses, and right mastoid air cells.IMPRESSION:1. No evidence of acute ischemia.2. Mild changes of chronic bilateral maxillary, ethmoid, and rightmastoid sinusitis.Images reviewed, interpreted, and dictated by Lorenzo Buck MD Impression and Plan Pulmonary Jqlad-[id number] hypercapnic respiratory failure Intubated at OSH on 12/01/20 and extubated on 12/05/20 COPD, acute exacerbation, no PFTs for review pt with tobacco abuse history Lung adenocarcinoma with brain and abdominal metastases s/p ALINA lobectomy, chemotherapy (last treatment 11/28) Cardiovascular CAD History of OR HTN ID Acute UTI with Klebsiella pneumonia [...] on during the day. -Oncology following. Dr. Bergman is well aware of the case. -Labs and images reviewed. -Spoke to the patient as well as the at the bedside patient continues to improve, chest x-ray reviewed showed improvement of the left lower lobe atelectasis opacity, patient will need to follow-up with gold frame assembler in 4 weeks. -I informed the patient that she will be scheduled to see me in 4 weeks, patient agreed. -Spoke with Dr. Garcia and plan of care was updated. CXR AM labs ordered. FULL CODE Prognosis: Guarded. Patient with acute confusion and hallucinations still ongoing. I have personally evaluated the patient; history and review of systems, physical examination, laboratory studies and radiology data. I have actively directed the medical care, formulated diagnosis and plan and discussed it with our team. Patient requires a high complexity of decision making for assessment. documented in this encounter Plan of Treatment Upcoming Encounters Date Type Department Care Team (Late st Contact Info) Description 05/14/2025 8:00 AM EST Lab Patient Walk-In [facility] - [address] [place] [address] 05/14/2025 8:30 AM EST Appointment [facility] [address] [facility] [address] [place] [address] Neptali Bergman MD [address] [facility] [address] [place] [address] 05/14/2025 10:00 AM EST Appointment [facility] MRI - [address] [facility] [address] [place] [address] [place] [address] [place] [address] [address] [place] [address] 05/14/2025 2:15 PM EST Office Visit [facility] - [address] [place] [address] Neptali Bergman MD [address] [facility] [address] [place] [address] documented as of this encounter Visit Diagnoses Not on filedocumented in this encounter Care Teams Tile Picker Relationship Specialty Start Date End Date Jonas Navas MD [address] [place] [facility] [address] [place], [place] [id number] PCP - General Cardiothoracic Surgery 04/15/22 07/23/22 Marcell Uriostegui MD [address] [place] [address] [place] [address] PCP - General Adolescent Medicine 07/24/22 04/05/23 Heidi Rivers, [address] [place] [address] PCP - General Nurse Practitioner 04/06/23 Neptali Bergman MD [facility] [address] [address] Hematology and Oncology 10/31/24 documented as of this encounter
--- OUTSIDE RECORDS SUMMARY | 2025-04-30 09:23 | XMS_ITS | Encounter Summary ---
Author Organization [employer] ([place], [place], [place], [place], [place]) Address [address] [place] [address] Care Team Providers Care Plaster Patternmaker Name Role Phone Jonas Navas MD Primary Care Provider [phone] Marcell Uriostegui MD Primary Care Provider + [phone] Heidi Rivers APRN Primary Care Provider [phone] Neptali Bergman MD Unavailable Encounter Details Date Type Department Care Team (Late st Contact Info) Description 03/28/2020 Transcribed Document [facility] [place] [address] [place] [address] ProviderJennifer MD [address] [place] [address] Social History Tobacco Use Types Packs/Day Years Used Date Smoking Tobacco: Never Assessed Comments Unknown Sex and Gender Information Value Date Recorded Sex Assigned at Not on file Legal Sex Female 1:09 PM CDT Gender Identity Not on file Sexual Orientation Not on file documented as of this encounter Miscellaneous Notes * Cerner Conversion Note - Jennifer ProviderMD - 03/28/2020 10:32 AM SENIOR SCIENCE CONSULTANT Pain Assessment Entered On: 03/29/2020 18:57 EST Performed On: 03/29/2020 16:25 EST by Raheem Baird, RN Intervention Information: acetaminophen Performed by Raheem Baird, RN on 03/29/2020 15:25:00 EST acetaminophen,1000mg Oral,Pain Pain Assessment Pain Assessment : Follow-up assessment Pain Scale Goal : 4 Raheem Baird RN - 03/29/2020 18:57 EST Electronically signed by [facility] Conversion Manager Drilling Cerner at 09/11/2022 11:53 AM CDT documented in this encounter Plan of Treatment Upcoming Encounters Date Type Department Care Team (Late st Contact Info) Description 05/14/2025 8:00 AM EST Lab Patient Walk-In [facility] - [address] [place] [address] 05/14/2025 8:30 AM EST Appointment [facility] CT - [address] [facility] [address] [place] [address] Neptali Bergman MD [address] [place] [address] 05/14/2025 10:00 AM EST Appointment [facility] MRI - [address] [facility] [address] [place] [address] Neptali Bergman MD [facility] [address] [place] [address] 05/14/2025 2:15 PM EST Office Visit [facility] - [address] [place] [address] Neptali Bergman MD [facility] [address] [place] [address] documented as of this encounter Visit Diagnoses Not on filedocumented in this encounter Care Teams Plaster Patternmaker Relationship Specialty Start Date End Date Jonas Navas MD [address] [facility] [address] [place] [address] PCP - General Cardiothoracic Surgery 04/15/22 07/23/22 Marcell Uriostegui MD [address] [place] [address] PCP - General Adolescent Medicine 07/24/22 04/05/23 Heidi Rivers APRN [address] [facility] [address] [place] [address] PCP - General Nurse Practitioner 04/06/23 Neptali Bergman MD [address] [facility] [address] [place] [address] Hematology and Oncology 10/31/24 documented as of this encounter
--- OUTSIDE RECORDS SUMMARY | 2025-04-30 09:23 | XMS_ITS | Encounter Summary ---
Author Organization [employer] ([place], [place], [place], [place], [place]) Address [address] [place] [address] Care Team Providers Care Head Packager Name Role Phone Jonas Navas MD Primary Care Provider [phone] Marcell Uriostegui MD Primary Care Provider + [phone] Heidi Rivers APRN Primary Care Provider + [phone] Neptali Bergman MD Unavailable [phone] Encounter Details Date Type Department Care Team (Late st Contact Info) Description 03/22/2020 Transcribed Document [facility] [place] [address] ProviderJennifer MD [address] [place] [address] Social History Tobacco Use Types Packs/Day Years Used Date Smoking Tobacco: Never Assessed Comments Unknown Sex and Gender Information Value Date Recorded Sex Assigned at Not on file Legal Sex Female 1:09 PM CDT Gender Identity Not on file Sexual Orientation Not on file documented as of this encounter Miscellaneous Notes * Cerner Conversion Note - Jennifer ProviderMD - 03/22/2020 2:22 PM CDT Spiritual Care Assessment Entered On: 03/28/2020 7:19 EST Performed On: 03/28/2020 7:18 EST by LINSEY ROSALES General Information Referred by : Patient Referral Reason Comment : PreSurgery prayer Ministry Provided to : Patient LINSEY ROSALES - 03/28/2020 7:19 EST Interventions Emotional Support : Empathic/Engaged listening, Feelings expressed Spiritual and Hinduism : Prayer shared, Spiritual/Hinduism support provided LINSEY ROSALES - 03/28/2020 7:19 EST Outcomes Affect/Behavior Changed : Comforted Appreciation Expressed : Yes Thoughts, Feelings and Emotions Exp. : Yes LINSEY ROSALES - 03/28/2020 7:19 EST Electronically signed by Deric Catalan Conversion Deputy Commonwealth'S Attorney Cerner at 09/10/2022 12:49 AM CDT documented in this encounter Plan of Treatment Upcoming Encounters Date Type Department Care Team (Late st Contact Info) Description 05/14/2025 8:00 AM EST Lab Patient Walk-In [facility] - [address] [place] [address] 05/14/2025 8:30 AM EST Appointment [facility] [address] [place] [address] [place] [address] [place] [address] [address] [place] [address] 05/14/2025 10:00 AM EST Appointment [facility] MRI - [address] [place] [address] Neptali Bergman MD [address] [place] [address] [address] [place] [address] 05/14/2025 2:15 PM EST Office Visit [facility] - [address] [place] [address] Neptali Bergman MD [address] [place] [address] [address] [place] [address] documented as of this encounter Visit Diagnoses Not on filedocumented in this encounter Care Teams Head Packager Relationship Specialty Start Date End Date Jonas Navas MD [address] [facility] [address] [place] [id number] PCP - General Cardiothoracic Surgery 04/15/22 07/23/22 Marcell Uriostegui MD [address] [place] [address] [place] [address] PCP - General Adolescent Medicine 07/24/22 04/05/23 Heidi Rivers APRN [address] [facility] [address] [place] [address] PCP - General Nurse Practitioner 04/06/23 Neptali Bergman MD [address] [facility] [address] [place] [address] Hematology and Oncology 10/31/24 documented as of this encounter
--- OUTSIDE RECORDS SUMMARY | 2025-04-30 09:23 | XMS_ITS | Encounter Summary ---
Author Organization [employer] ([place], [place], [place], [place], [place]) Address [address] [place] [address] Care Team Providers Care Rip Machine Operator Name Role Phone Jonas Navas MD Primary Care Provider [phone] Marcell Uriostegui MD Primary Care Provider + [phone] Heidi Rivers APRN Primary Care Provider + [phone] Neptali Bergman MD Unavailable [phone] Encounter Details Date Type Department Care Team (Late st Contact Info) Description 08/09/2019 Transcribed Document [facility] [place] Family Medicine [facility] [place] [address] ProviderJennifer MD [address] [place] [address] Social History Tobacco Use Types Packs/Day Years Used Date Smoking Tobacco: Never Assessed Comments Unknown Sex and Gender Information Value Date Recorded Sex Assigned at Not on file Legal Sex Female 1:09 PM CDT Gender Identity Not on file Sexual Orientation Not on file documented as of this encounter Miscellaneous Notes * Cerner Conversion Note - Jennifer ProviderMD - 08/09/2019 2:03 PM CDT UM Authorization Entered On: 08/09/2019 14:03 EDT Performed On: 08/09/2019 14:03 EDT by NORI VALVERDE RN-Utilization Review Primary Insurance Authorization Authorization and Policy Numbers : Insurance 1 Health Plan: [employer] Policy Number: [id number] Authorization Number: [id number] Insurance Primary Name [facility] Policy Number: [id number] Authorization Status-Primary : Admit approved Auth/Referral Contact Name-Primary : [place] Reference Number-Primary : [id number] Authorization Number-Primary : [id number] Number of Days Authorized-Primary : 7 Day(s) Authorized Service Begin Date-Primary : 07/25/2019 EST Authorized Service End Date-Primary : 08/01/2019 EDT Authorization Comments-Primary : [place] approved per availity for 8 days Historical Authorization Comments-Primary : Comment 1: Discharge date and summary faxed. (Macy Costello, Sanitary Engineering Teacher 08/03/2019 12:31) Comment 2: Faxed clinicals via [employer] on 07/30 and 08/01. (SURENDRA FRANK, Rn-Utilization Review 08/02/2019 13:11) Comment 3: [place] approved per availity for 4 days inpt (NORI VALVERDE, RN-Utilization Review 07/21/2019 13:39) NORI VALVERDE RN-Utilization Review - 08/09/2019 14:03 EDT Electronically signed by Kolby Catalan Conversion Plant Protection Superintendent Cerner at 09/10/2022 12:32 AM CDT documented in this encounter Plan of Treatment Upcoming Encounters Date Type Department Care Team (Late st Contact Info) Description 05/14/2025 8:00 AM EST Lab Patient Walk-In [facility] - [place] [address] [place] [address] 05/14/2025 8:30 AM EST Appointment [facility] CT - [facility] [address] [facility] [address] [place] [address] Neptali Bergman MD [address] [place] [address] [address] [place] [address] 05/14/2025 10:00 AM EST Appointment [facility] MRI - [facility] [address] [facility] [address] [place] [address] Neptali Bergman MD [address] [place] [address] [address] [place] [address] 05/14/2025 2:15 PM EST Office Visit [facility] - [place] [address] [place] [address] Neptali Bergman MD [address] [facility] [address] [place] [address] documented as of this encounter Visit Diagnoses Not on filedocumented in this encounter Care Teams Rip Machine Operator Relationship Specialty Start Date End Date Jonas Navas MD [address] [facility] [address] [place], [place] [id number] PCP - General Cardiothoracic Surgery 04/15/22 07/23/22 Marcell Uriostegui MD [address] [facility] [address] [place] [address] PCP - General Adolescent Medicine 07/24/22 04/05/23 Heidi Rivers, INSOLE CHANNELER [address] [facility] [address] [place] [address] PCP - General Nurse Practitioner 04/06/23 Neptali Bergman MD [address] [facility] [address] [place] [address] Hematology and Oncology 10/31/24 documented as of this encounter
--- OUTSIDE RECORDS SUMMARY | 2025-04-30 09:23 | XMS_ITS | Encounter Summary ---
Author Organization [employer] ([place], [place], [place], [place], [place]) Address [address] [place] [address] Care Team Providers Care Diesel Tractor Engine Mechanic Name Role Phone Jonas Navas MD Primary Care Provider [phone] Marcell Uriostegui MD Primary Care Provider + [phone] Heidi Rivers APRN Primary Care Provider + [phone] Neptali Bergman MD Unavailable [phone] Encounter Details Date Type Department Care Team (Late st Contact Info) Description 03/28/2020 Transcribed Document [facility] [place] Family Medicine [address] [place] [address] ProviderJennifer MD [address] [place] [address] Social History Tobacco Use Types Packs/Day Years Used Date Smoking Tobacco: Never Assessed Comments Unknown Sex and Gender Information Value Date Recorded Sex Assigned at Not on file Legal Sex Female 1:09 PM CDT Gender Identity Not on file Sexual Orientation Not on file documented as of this encounter Miscellaneous Notes * Cerner Conversion Note - Jennifer ProviderMD - 03/28/2020 9:22 AM ASSAYER HELPER Pain Assessment Entered On: 03/28/2020 15:04 EST Performed On: 03/28/2020 11:28 EST by LAURENCE CHANEY, RN Intervention Information: fentaNYL Performed by LAURENCE CHANEY, RN on 03/28/2020 10:58:00 EST fentaNYL,25mcg IV Push,Right Mid Forearm,Pain (Severe 7-10) Pain Assessment Pain Assessment : Follow-up assessment Pain Scale Goal : 4 Pain Scale Used : FACES Location : Abdominal LAURENCE CHANEY RN - 03/28/2020 15:04 EST Pain Scale Intensity : 8 LAURENCE CHANEY RN - 03/28/2020 15:04 EST Image 4 - Images currently included in the form version of this document have not been included in the text rendition version of the form. documented in this encounter Plan of Treatment Upcoming Encounters Date Type Department Care Team (Late st Contact Info) Description 05/14/2025 8:00 AM EST Lab Patient Walk-In [facility] - [place] [address] [place] [address] 05/14/2025 8:30 AM EST [facility]ment [facility] [address] [facility] [address] [place] [address] [place] [address] [place] [address] [address] [place] [address] 05/14/2025 10:00 AM EST Appointment [facility] MRI - [address] [facility] [address] [place] [address] Neptali Bergman MD [address] [place] [address] [address] [place] [address] 05/14/2025 2:15 PM EST Office Visit [facility] - [place] [address] [place] [address] Neptali Bergman MD [address] [place] [address] [address] [place] [address] documented as of this encounter Visit Diagnoses Not on filedocumented in this encounter Care Teams Diesel Tractor Engine Mechanic Relationship Specialty Start Date End Date Jonas Navas MD [address] [facility] [address] [place] [address] PCP - General Cardiothoracic Surgery 04/15/22 07/23/22 Marcell Uriostegui MD [address] [place] [address] [place] [address] PCP - General Adolescent Medicine 07/24/22 04/05/23 Heidi Rivers APRN [address] [place] [address] PCP - General Nurse Practitioner 04/06/23 Neptali Bergman MD [address] [facility] [address] [place] [address] Hematology and Oncology 10/31/24 documented as of this encounter
--- OUTSIDE RECORDS SUMMARY | 2025-04-30 09:23 | XMS_ITS | Encounter Summary ---
Author Organization [employer] ([place], [place], [place], [place], [place]) Address [address] [place] [address] Care Team Providers Care Pearl Digger Name Role Phone Jonas Navas MD Primary Care Provider [phone] Marcell Uriostegui MD Primary Care Provider + [phone] Heidi Rivers APRN Primary Care Provider + [phone] Neptali Bergman MD Unavailable [phone] Encounter Details Date Type Department Care Team (Late st Contact Info) Description 03/20/2021 Transcribed Document [facility] [place] [address] ProviderJennifer MD [address] [place] [address] Social History Tobacco Use Types Packs/Day Years Used Date Smoking Tobacco: Never Assessed Comments Unknown Sex and Gender Information Value Date Recorded Sex Assigned at Not on file Legal Sex Female 1:09 PM CDT Gender Identity Not on file Sexual Orientation Not on file documented as of this encounter Miscellaneous Notes * Cerner Conversion Note - Jennifer ProviderMD - 03/20/2021 9:51 AM CDT Pre Procedure Adult Entered On: 03/20/2021 9:58 EDT Performed On: 03/20/2021 9:51 EDT by YONG ALCAZAR RN Height and Weight, Clinical Dosing Height Source : Stated Height Entry Format : [place] Height, Feet : 5 ft(Converted to: 152 cm, 60 Inch) Height, Inches : 1 Inch(Converted to: 0 ft 1 Inch, 2.54 cm) Clinical Height : 154.94 cm Weight Source : Standing scale Weight Entry Format : [place] Clinical [facility] Weight : 79.09 kg Weight, Pounds : 174 lb Body Surface Area (BSA) : 1.78 m2 Body Mass Index : 32.9 kg/m2 (HI) [place] Body Weight : 47 kg YONG ALCAZAR RN - 03/20/2021 9:51 EDT Health Histories Smoking Status : Former smoker, quit more than 30 days ago Smokeless Tobacco Status : Never Implant/Device Type, Donor Support Technician and Model : none YONG ALCAZAR RN - 03/20/2021 9:51 EDT Social History (As Of: 03/20/2021 09:58:41 EDT) Tobacco: Former smoker, quit more than 30 days ago Smoking Status. Never Smokeless Tobacco Status. Last Used: 07-24-2019. (Last Updated: 03/26/2020 10:10:57 EST by Heidi Zamora Rn) Former smoker, quit more than 30 days ago Smoking Status. Never Smokeless Tobacco Status. None Smokeless Tobacco Use History. Last Used: quit in July of this year when I had my lung cancer surgery. . Second Hand Smoke Exposure: No. (Last Updated: 05/15/2020 10:48:03 EST by Olvin Leach Rn) Alcohol: Alcohol Use History No. (Last Updated: 07/20/2019 13:02:33 EST by STEWART WILD RN) Alcohol Use History Yes. Use in Last 12 Months: Yes. Alcohol Use Frequency Monthly. Alcohol Use Comment probably once a month . (Last Updated: 05/15/2020 10:48:03 EST by Olvin Leach Rn) Substance Abuse: Drug Use Hx: No. Use in Last 12 Months: No. (Last Updated: 07/20/2019 13:02:39 EST by STEWART WILD RN) Drug Use Hx: No. Use in Last 12 Months: No. (Last Updated: 05/15/2020 10:48:03 EST by Olvin Leach Rn) Home/Environment: Lives with Spouse. Living situation: Home/Independent. Home equipment: Glucose monitoring. (Last Updated: 07/20/2019 13:03:10 EST by STEWART WILD RN) Employment/School: Retired (Last Updated: 07/20/2019 13:03:15 EST by STEWART WILD RN) Infectious Disease History Does patient have symptoms of COVID-19? : No Has the Patient Been Tested for COVID-19 in the last 14 days? : Yes, Patient stated results Negative Does the Patient state known exposure to a COVID-19 positive case in the last 14 days? : No Patient Vaccinated for COVID-19 : Fully vaccinated YONG ALCAZAR RN - 03/20/2021 9:51 EDT Infectious Disease Risk Screening Grid Cough < 2 wks of unknown origin : NO Cough > 2 weeks : NO Blood in Sputum : NO Fever or self-reported Fever : NO Rash of unknown origin : NO Headache : NO Stiff neck : NO Night Sweats : NO Unexplained Weight Loss : NO Diarrhea (3 episode per day) : NO YONG ALCAZAR RN - 03/20/2021 9:51 EDT Physical contact outside [place] in the last 30 days : No Hospitalized in Foreign Country : No Infectious Disease History : Chicken pox/Shingles, Measles, Mumps, Pertussis (Whooping cough) INF Disease TB Screening Calc : 0 INF Disease Recent Travel Calc : 0 YONG ALCAZAR RN - 03/20/2021 9:51 EDT COVID19 PreProcedure Screening Is this an Emergent or Add on Procedure? : No Date PreProcedure COVID-19 test known? : Yes Date of PreProcedure COVID-19 : 03/17/2021 EDT Has patient been isolated since the test : No Exposed to COVID19 symptoms since test? : No YONG ALCAZAR RN - 03/20/2021 9:51 EDT Anesthesia/Transfusion History Family History of Anesthesia Reaction : No prior transfusion(s) Transfusion History : Prior anesthesia without reaction Family History of Anesthesia Reaction : None YONG ALCAZAR RN - 03/20/2021 9:51 EDT Functional Assessment Living Situation : Home Current Home Treatments : None YONG ALCAZAR RN - 03/20/2021 9:51 EDT [place] Suicide Severity Rating Scale (C-SSRS) CSSRS Past Month Wish to be : No CSSRS Past Month Suicidal Thoughts : No CSSRS Lifetime Suicide Behavior : No Suicide Severity Rating Score : 0 Suicide Severity Rating : No Additional Care Required at this time YONG ALCAZAR RN - 03/20/2021 9:51 EDT Psychosocial History Currently in Unsafe Situation : No YONG ALCAZAR RN - 03/20/2021 9:51 EDT Advance Directive Patient has Advance Directive *Q : No, patient refuses Advance Directive information YONG ALCAZAR RN - 03/20/2021 9:51 EDT Education Topics, Periop Preadmission Perioperative Education Grid Arrival Time/Place : Verbalizes understanding Falls : Verbalizes understanding Incentive Spirometry : Verbalizes understanding Infection Control : Verbalizes understanding IV's : Verbalizes understanding NPO Status/Directions : Verbalizes understanding Pain Management : Verbalizes understanding Postoperative Care Preparations : Verbalizes understanding Preprocedure Preparations : Verbalizes understanding Preprocedure Tests/Labs : Verbalizes understanding Responsible Adult : Verbalizes understanding YONG ALCAZAR RN - 03/20/2021 9:51 EDT General Info Preferred Name : Alejandrina Legal Guardian : No Support Person/Patient J2Ee Application Developer : Yes Support Person/Pt Rep Name : Ti Yeh - spouse Contact Password : [email or web address] Support Person/Pt Rep Contact Information : [phone] Want Family/Rep/Phys Notified of Admit : No Emergency Contact #1 : . Emergency Contact #1 Phone Number : . Emergency Contact #1 Relationship : . Emergency Contact #2 : . Emergency Contact #2 Phone Number : . Emergency Contact #2 Relationship : . Primary Language : Burkinan Communication Barrier : None Ammonia Technician Needed : No YONG ALCAZAR RN - 03/20/2021 9:51 EDT Sleep Apnea Risk Assmt Hx of Obstructive Sleep Apnea Diagnosis : No Snore Loudly : No Tired, Fatigued, or Sleepy During Day : No Observed Stopping Breathing During Sleep : No Have/Are Being Treated for Hypertension : No BMI Greater Than 35 kg/m2 : Yes Age over 50 Years Old : Yes Neck Circumference Greater Than 40 cm : No Gender Male : No STOP-BANG Sleep Apnea Risk Level Score : 2 YONG ALCAZAR RN - 03/20/2021 9:51 EDT Quinten Scale Quinten Sensory Perception : No impairment Quinten Moisture : Rarely moist Quinten Activity : Walks frequently Quinten Mobility : Slightly limited Quinten Nutrition : Adequate Quinten Friction and Shear : Potential problem Quinten Score : 20 YONG ALCAZAR RN - 03/20/2021 9:51 EDT Pain Assessment Pain Assessment : Initial assessment Pain Scale Used : 0-10 Scale YONG ALCAZAR RN - 03/20/2021 9:51 EDT Fall Risk Scales ABCs Fall Injury Risk Identification : None MUNOZ Hx Falls Immediate/Within 3 Months : No Munoz Secondary Diagnosis : Yes MUNOZ Use of Ambulatory Aid : None MUNOZ IV Therapy or IV Access : Yes Munoz Gait/Transferring : Normal, bedrest, immobile Munoz Mental Status : Oriented to own ability Munoz Fall Risk Score : 35 MUNOZ Fall Scale Risk Level : 25-45 Medium Risk [place]xton Fall Interventions : Adequate lighting, Assistive devices within reach, Bed in low position, Personal items within reach, Reinforced to call for assistance before getting out of bed YONG ALCAZAR RN - 03/20/2021 9:51 EDT Valuables and Belongings Valuables and Belongings : Clothing Clothing : Common streetwear Clothing Disposition : Bedside, With family YONG ALCAZAR RN - 03/20/2021 9:51 EDT Pain Scale Intensity : 0 YONG ALCAZAR RN - 03/20/2021 9:51 EDT Image 4 - Images currently included in the form version of this document have not been included in the text rendition version of the form. documented in this encounter Plan of Treatment Upcoming Encounters Date Type Department Care Team (Late st Contact Info) Description 05/14/2025 8:00 AM EST Lab Patient Walk-In [place] [facility] On[facility] - [address] [place] [address] 05/14/2025 8:30 AM EST Appointment [facility] CT - [facility] [address] [facility] [address] [place] [address] Neptali Bergman MD [address] [facility] [address] [place] [address] 05/14/2025 10:00 AM EST Appointment [facility] MRI - [address] [place] [address] Neptali Bergman MD [address] [facility] [address] [place] [address] 05/14/2025 2:15 PM EST Office Visit [place] [facility] - [place] [facility] [address] [place] [address] Neptali Bergman MD [facility] [address] [place] [address] documented as of this encounter Visit Diagnoses Not on filedocumented in this encounter Care Teams Pearl Digger Relationship Specialty Start Date End Date Jonas Navas MD [address] [facility] [address] [place] [address] PCP - General Cardiothoracic Surgery 04/15/22 07/23/22 Marcell Uriostegui MD [address] [place] [address] PCP - General Adolescent Medicine 07/24/22 04/05/23 Heidi Rivers, FAMILY COURT REGISTRAR [address] [facility] [address] [place] [address] PCP - General Nurse Practitioner 04/06/23 [place] [address] [place] [address] [address] [place] [address] Hematology and Oncology 10/31/24 documented as of this encounter
--- OUTSIDE RECORDS SUMMARY | 2025-04-30 09:24 | XMS_ITS | Encounter Summary ---
Author Organization [employer] ([place], [place], [place], [place], [place]) Address [address] [place] [address] Care Team Providers Care Barrel Filler Head Name Role Phone Jonas Navas MD Primary Care Provider [phone] Marcell Uriostegui MD Primary Care Provider + [phone] Heidi Rivers APRN Primary Care Provider + [phone] Neptali Bergman MD Unavailable Encounter Details Date Type Department Care Team (Late st Contact Info) Description 03/28/2020 Transcribed Document [facility] [place] Family Medicine [address] [place] [address] ProviderJennifer MD [address] [place] [address] Social History Tobacco Use Types Packs/Day Years Used Date Smoking Tobacco: Never Assessed Comments Unknown Sex and Gender Information Value Date Recorded Sex Assigned at Not on file Legal Sex Female 1:09 PM CDT Gender Identity Not on file Sexual Orientation Not on file documented as of this encounter Miscellaneous Notes * Cerner Conversion Note - Jennifer ProviderMD - 03/28/2020 8:55 AM LIME SPREADER [facility] Main OR Preop Summary Primary Physician: RICKY ROMANO MD-URO Finalized Date/Time: 03/28/20 13:55:53 Pt. Name: ALEJANDRINA YEH /Sex: 1955 Female Med Rec #: [id number] Physician: RICKY ROMANO MD-URO Financial #: [id number] Pt. Type: I Room/Bed: ASA/1 Admit/Disch: 03/28/20 06:42:00 - Institution: [facility] PreOp Case Times Entry 1 In Preop 03/28/20 06:05:00 Ready for Holding n/a Room Patient Ready for 03/28/20 07:30:00 Surgery Patient Out of Preop 03/28/20 08:10:00 Patient Out of n/a Holding Room Last Modified By: ALEXUS LINN RN 03/28/20 13:55:51 [facility] PreOp Case Times Audit 03/28/20 13:55:51 Multimedia Instructional Designer: MCGRANM Modifier: MCGRANM <+> 1 Patient Out of Preop 03/28/20 09:27:42 Multimedia Instructional Designer: MCGRANM Modifier: MCGRANM <+> 1 Patient Ready for Surgery Finalized By: ALEXUS LINN RN Document Signatures Signed By: ALEXUS LINN RN 03/28/20 13:55 Electronically signed by [facility] Conversion Air Commodore Cerner at 09/10/2022 12:50 AM CDT documented in this encounter Plan of Treatment Upcoming Encounters Date Type Department Care Team (Late st Contact Info) Description 05/14/2025 8:00 AM EST Lab Patient Walk-In [facility] - [place] [id number] [place] [address] 05/14/2025 8:30 AM EST Appointment [facility] CT - [facility] [address] [facility] [address] [place] [address] Neptali Bergman MD [address] [place] [address] [address] [place] [address] 05/14/2025 10:00 AM EST Appointment [facility] MRI - [facility] [address] [facility] [address] [place] [address] Neptali Bergman MD [address] [place] [address] [address] [place] [address] 05/14/2025 2:15 PM EST Office Visit [facility] - [place] [address] [place] [address] Neptali Bergman MD [address] [facility] [address] [place] [address] documented as of this encounter Visit Diagnoses Not on filedocumented in this encounter Care Teams Barrel Filler Head Relationship Specialty Start Date End Date Jonas Navas MD [address] [facility] [address] [place], [place] [address] PCP - General Cardiothoracic Surgery 04/15/22 07/23/22 Marcell Uriostegui MD [address] [facility] [address] [place] [address] PCP - General Adolescent Medicine 07/24/22 04/05/23 Heidi Rivers, IRRIGATING PUMP OPERATOR [address] [facility] [address] [place] [address] PCP - General Nurse Practitioner 04/06/23 Neptali Bergman MD [address] [facility] [address] [place] [address] Hematology and Oncology 10/31/24 documented as of this encounter
--- OUTSIDE RECORDS SUMMARY | 2025-04-30 09:24 | XMS_ITS | Encounter Summary ---
Author Organization [employer] ([place], [place], [place], [place], [place]) Address [address] [place] [address] Care Team Providers Care Shactor Helper Name Role Phone Jonas Navas MD Primary Care Provider [phone] Marcell Uriostegui MD Primary Care Provider + [phone] Heidi Rivers APRN Primary Care Provider + [phone] Neptali Bergman MD Unavailable [phone] Encounter Details Date Type Department Care Team (Late st Contact Info) Description 03/28/2020 Transcribed Document [facility] [place] [facility] [place] [address] ProviderJennifer MD [address] [place] [address] Social History Tobacco Use Types Packs/Day Years Used Date Smoking Tobacco: Never Assessed Comments Unknown Sex and Gender Information Value Date Recorded Sex Assigned at Not on file Legal Sex Female 1:09 PM CDT Gender Identity Not on file Sexual Orientation Not on file documented as of this encounter Miscellaneous Notes * Cerner Conversion Note - Jennifer Arroyo MD - 03/28/2020 7:30 AM FLIGHT AGENT Procedural Documentation Entered On: 03/28/2020 8:05 EST Performed On: 03/28/2020 7:30 EST by ALEXUS LINN, plating equipment tender Documentation All Activity Suspended : Yes Team Verbally Confirms Information : Correct patient identity, Correct side and site are marked, Consent form is present and accurate, Agreement on the procedure to be done, Correct patient position, Confirm the skin prep has dried, Performed in location of procedure after prepped/draped Proper Use of Sterile Apparel per Policy : Yes Procedure Case Attendee : MARGIE KING MD-ANS Procedure Case Attendee Role : Anesthesiologist Procedure Case Attendee Role 2 : plating equipment tender Case Attendee 2 : ALEXUS LINN RN MCGRANNAHAN, MARY, RN - 03/28/2020 9:24 EST Procedure to be Performed : bilateral TAP block injections Time Out Pause Time : 03/28/2020 7:20 EST Procedure Performed : bilateral TAP block injection ALEXUS LINN RN - 03/28/2020 8:04 EST Postprocedure Documentation Current Time : 9:24 EST ALEXUS LINN RN - 03/28/2020 9:24 EST Ruben Level I Post Anesthesia Assessment Ruben I Activity Status : Moves 4 extremities voluntarily or on command Ruben l Respiratory Component : Able to deep breathe and cough freely Ruben I Circulation Component : BP 20% of preanesthetic level Ruben I Consciousness : Fully awake Ruben l Oxygen Saturation : Needs oxygen to maintain > 92% Ruben l Score : 9 ALEXUS LINN RN - 03/28/2020 9:24 EST Ruben Level II Assessment Ruben ll Pain : Pain free ALEXUS LINN RN - 03/28/2020 9:24 EST Vital Measurements Heart Rate, Apical : 72 bpm Pulse Rhythm : Regular Respiratory Rate : 16 Breaths/Min Blood Pressure Location : Arm, left upper Blood Pressure Source : Non-Invasive BP Device Blood Pressure Position : Supine Systolic Blood Pressure : 116 mmHg Diastolic Blood Pressure : 55 mmHg (LOW) ALEXUS LINN RN - 03/28/2020 9:24 EST Oxygen Therapy Oxygen Titrated : No Oxygen Therapy Mode : Nasal cannula Oxygen Flow Rate : 2 Liter/Min Pulse Oximeter Probe Site : Hand, right O2 Saturation Monitoring Frequency : Continuous Oxygen Saturation : 98 % ALEXUS LINN RN - 03/28/2020 9:24 EST documented in this encounter Plan of Treatment Upcoming Encounters Date Type Department Care Team (Late st Contact Info) Description 05/14/2025 8:00 AM EST Lab Patient Walk-In [facility] - [place] [address] [place] [address] 05/14/2025 8:30 AM EST Appointment [facility] [address] [place] [address] Neptali Bergman MD [address] [place] [address] [address] [place] [address] 05/14/2025 10:00 AM EST Appointment [facility] - [address] [place] [address] Neptali Bergman MD [address] [place] [address] [address] [place] [address] 05/14/2025 2:15 PM EST Office Visit [facility] - [address] [place] [address] Neptali Bergman MD [address] [place] [address] [address] [place] [address] documented as of this encounter Visit Diagnoses Not on filedocumented in this encounter Care Teams Shactor Helper Relationship Specialty Start Date End Date Jonas Navas MD [address] [facility] [address] [place], [place] [id number] PCP - General Cardiothoracic Surgery 04/15/22 07/23/22 Marcell Uriostegui MD [address] [place] [address] PCP - General Adolescent Medicine 07/24/22 04/05/23 Heidi Rivers, ROMERO [address] [facility] [address] [place] [address] PCP - General Nurse Practitioner 04/06/23 Neptali Bergman MD [address] [place] [address] [address] [place] [address] Hematology and Oncology 10/31/24 documented as of this encounter
--- OUTSIDE RECORDS SUMMARY | 2025-04-30 09:24 | XMS_ITS | Encounter Summary ---
Author Organization [employer] ([place], [place], [place], [place], [place]) Address [address] [place] [address] Care Team Providers Care Ecologist Technician Name Role Phone Jonas Navas MD Primary Care Provider [phone] Marcell Uriostegui MD Primary Care Provider + [phone] Heidi Rivers APRN Primary Care Provider + [phone] Neptali Bergman MD Unavailable [phone] Encounter Details Date Type Department Care Team (Late st Contact Info) Description 03/28/2020 Transcribed Document [facility] [place] [address] [place] [address] ProviderJennifer MD [address] [place] [address] Social History Tobacco Use Types Packs/Day Years Used Date Smoking Tobacco: Never Assessed Comments Unknown Sex and Gender Information Value Date Recorded Sex Assigned at Not on file Legal Sex Female 1:09 PM CDT Gender Identity Not on file Sexual Orientation Not on file documented as of this encounter Miscellaneous Notes * Cerner Conversion Note - Jennifer Arroyo MD - 03/28/2020 10:30 AM CRITICAL CARE NURSE PRACTITIONER Pain Assessment Entered On: 03/28/2020 15:04 EST Performed On: 03/28/2020 14:37 EST by LAURENCE CHANEY, RN Intervention Information: acetaminophen-HYDROcodone Performed by LAURENCE CHANEY, RN on 03/28/2020 13:37:00 EST acetaminophen-HYDROcodone,1Tab Oral,Pain Pain Assessment Pain Assessment : Follow-up assessment Pain Scale Goal : 4 Pain Scale Used : FACES Location : Abdominal LAURENCE CHANEY RN - 03/28/2020 15:03 EST Pain Scale Intensity : 4 LAURENCE CHANEY RN - 03/28/2020 15:03 EST Image 4 - Images currently included in the form version of this document have not been included in the text rendition version of the form. documented in this encounter Plan of Treatment Upcoming Encounters Date Type Department Care Team (Late st Contact Info) Description 05/14/2025 8:00 AM EST Lab Patient Walk-In [facility] - [place] [address] [place] [address] 05/14/2025 8:30 AM EST Appointment [facility] CT - [facility] [address] [facility] [address] [place] [address] Neptali Bergman MD [address] [place] [address] [address] [place] [address] 05/14/2025 10:00 AM EST Appointment [facility] MRI - [facility] [address] [facility] [address] [place] [address] Neptali Bergman MD [address] [place] [address] [address] [place] [address] 05/14/2025 2:15 PM EST Office Visit [facility] - [place] [address] [place] [address] Neptali Bergman MD [address] [place] [address] [address] [place] [address] documented as of this encounter Visit Diagnoses Not on filedocumented in this encounter Care Teams Ecologist Technician Relationship Specialty Start Date End Date Jonas Navas MD [address] [facility] [address] [place] [id number] PCP - General Cardiothoracic Surgery 04/15/22 07/23/22 Marcell Uriostegui MD [address] [place] [address] [place] [address] PCP - General Adolescent Medicine 07/24/22 04/05/23 Heidi Rivers, ROMERO [address] [facility] [address] [place] [address] PCP - General Nurse Practitioner 04/06/23 Neptali Bergman MD [address] [facility] [address] [place] [address] Hematology and Oncology 10/31/24 documented as of this encounter
--- OUTSIDE RECORDS SUMMARY | 2025-04-30 09:24 | XMS_ITS | Encounter Summary ---
Author Organization [employer] ([place], [place], [place], [place], [place]) Address [address] [place] [address] Care Team Providers Care Piece Dyer Name Role Phone Jonas Navas MD Primary Care Provider [phone] Marcell Uriostegui MD Primary Care Provider + [phone] Heidi Rivers APRN Primary Care Provider + [phone] Neptali Bergman MD Unavailable [phone] Encounter Details Date Type Department Care Team (Late st Contact Info) Description 03/28/2020 Transcribed Document [facility] [place] Family Medicine [address] [place] [address] ProviderJennifer MD [address] [place] [address] Social History Tobacco Use Types Packs/Day Years Used Date Smoking Tobacco: Never Assessed Comments Unknown Sex and Gender Information Value Date Recorded Sex Assigned at Not on file Legal Sex Female 1:09 PM CDT Gender Identity Not on file Sexual Orientation Not on file documented as of this encounter Miscellaneous Notes * Cerner Conversion Note - Jennifer ProviderMD - 03/28/2020 8:55 AM APPRAISAL ANALYST [facility] Main OR PACU Summary Primary Physician: RICKY ROMANO MD-URO Finalized Date/Time: 03/28/20 15:57:38 Pt. Name: ALEJANDRINA YEH /Sex: 1955 Female Med Rec #: [id number] Physician: RICKY ROMANO MD-URO Financial #: [id number] Pt. Type: I Room/Bed: 4/1 Admit/Disch: 03/28/20 06:42:00 - Institution: [facility] Main OR PACU I Case Times Entry 1 In PACU I 03/28/20 10:36:00 Ready for PACU 03/28/20 12:00:00 Discharge Discharge from PACU 03/28/20 14:52:00 I Last Modified By: LAURENCE CHANEY RN 03/28/20 15:06:05 [facility] Main OR PACU Acuity Entry 1 Start Time 03/28/20 12:00:00 Stop Time 03/28/20 14:52:00 Acuity Level [facility] PACU Acuity I Last Modified By: LAURENCE CHANEY RN 03/28/20 15:06:22 Finalized By: LAURENCE CHANEY RN Document Signatures Signed By: LAURENCE CHANEY RN 03/28/20 15:06 LAURENCE CHANEY RN 03/28/20 15:57 Unfinalized History Date/Time Username Reason for Unfinalizing Freetext Reason for Unfinalizing 03/28/20 15:57 ANDREW [place] Documentation Electronically signed by Hossein [facility] Conversion Sticker Operator Cerner at 09/10/2022 12:39 AM CDT documented in this encounter Plan of Treatment Upcoming Encounters Date Type Department Care Team (Late st Contact Info) Description 05/14/2025 8:00 AM EST Lab Patient Walk-In [place] [facility] - [place] [address] [place] [address] 05/14/2025 8:30 AM EST Appointment Count Includes [facility] [address] [facility] [address] [place] [address] [place] [address] [place] [address] [address] [place] [address] 05/14/2025 10:00 AM EST Appointment [facility] MRI - [address] [facility] [address] [place] [address] [place] [address] [place] [address] [address] [place] [address] 05/14/2025 2:15 PM EST Office Visit [facility] - [address] [place] [address] Neptali Bergman MD [address] [facility] [address] [place] [address] documented as of this encounter Visit Diagnoses Not on filedocumented in this encounter Care Teams Piece Dyer Relationship Specialty Start Date End Date Jonas Navas MD [address] [facility] [address] [place] [address] PCP - General Cardiothoracic Surgery 04/15/22 07/23/22 Marcell Uriostegui MD [address] [facility] [address] [place] [address] PCP - General Adolescent Medicine 07/24/22 04/05/23 Heidi Rivers, DROSS PULLER [address] [place] [address] PCP - General Nurse Practitioner 04/06/23 Neptali Bergman MD [address] [facility] [address] [place] [address] Hematology and Oncology 10/31/24 documented as of this encounter
--- OUTSIDE RECORDS SUMMARY | 2025-04-30 09:24 | XMS_ITS | Encounter Summary ---
Author Organization [employer] ([place], [place], [place], [place], [place]) Address [address] [place] [address] Care Team Providers Care Retail Planning Manager Name Role Phone Jonas Navas MD Primary Care Provider [phone] Marcell Uriostegui MD Primary Care Provider + [phone] Heidi Rivers APRN Primary Care Provider + [phone] Lu Bergman MD Unavailable [phone] Encounter Details Date Type Department Care Team (Late st Contact Info) Description 03/28/2020 Transcribed Document [facility] [place] Family Medicine [address] [place] [address] ProviderJennifer MD [address] [place] [address] Social History Tobacco Use Types Packs/Day [...] Jennifer Arroyo MD - 03/28/2020 10:30 AM GRAIN MILLER HELPER Consult Phone Call Documentation Entered On: 03/28/2020 16:29 EST Performed On: 03/28/2020 16:27 EST by Dilia Combs RN Phone Call for Consults Consult Phone Call/Page Attempt : First call Consult Reason : lung cancer Physician Requesting Consult : RICKY ROMANO MD-URO Physician Requested for Consult : BERGMAN, LU T, MD-ONC Provider Service Notified Name : Medical oncology Physician Covering for Consult : LU BERGMAN MD-ONC Date and Time Call Returned : 03/28/2020 16:27 EST Dilia Combs RN - 03/28/2020 16:29 EST Electronically signed by Hossein [facility] Conversion Section Leader And Machine Setter Cerner at 09/10/2022 12:40 AM CDT documented in this encounter Plan of Treatment Upcoming Encounters Date Type Department Care Team (Late st Contact Info) Description 05/14/2025 8:00 AM EST Lab Patient Walk-In [place] [facility] - [place] [address] [place] [address] 05/14/2025 8:30 AM EST Appointment [facility] [address] [place] [address] Lu Bergman MD [address] [place] [address] [address] [place] [address] 05/14/2025 10:00 AM EST Appointment [facility] MRI - [address] [facility] [address] [place] [address] Lu Bergman MD [address] [place] [address] [address] [place] [address] 05/14/2025 2:15 PM EST Office Visit [facility] - [place] [address] [place] [address] Lu Bergman MD [address] [place] [address] [address] [place] [address] documented as of this encounter Visit Diagnoses Not on filedocumented in this encounter Care Teams Retail Planning Manager Relationship Specialty Start Date End Date Jonas Navas MD [address] [facility] [address] [place] [address] PCP - General Cardiothoracic Surgery 04/15/22 07/23/22 Marcell Uriostegui MD [address] [place] [address] [place] [address] PCP - General Adolescent Medicine 07/24/22 04/05/23 Heidi Rivers, INFO SPECIALIST [address] [facility] [address] [place] [address] PCP - General Nurse Practitioner 04/06/23 Lu Bergman MD [address] [facility] [address] [place] [address] Hematology and Oncology 10/31/24 documented as of this encounter
--- OUTSIDE RECORDS SUMMARY | 2025-04-30 09:24 | XMS_ITS | Encounter Summary ---
Author Organization [employer] ([place], [place], [place], [place], [place]) Address [address] [place] [address] Care Team Providers Care Lockstitch Lining Setter Name Role Phone Jonas Navas MD Primary Care Provider [phone] Marcell Uriostegui MD Primary Care Provider + [phone] Heidi Rivers APRN Primary Care Provider + [phone] Neptali Bergman MD Unavailable [phone] Encounter Details Date Type Department Care Team (Late st Contact Info) Description 03/28/2020 Transcribed Document [facility] Family Medicine [facility] [place] [address] ProviderJennifer MD [address] [place] [address] Social History Tobacco Use Types Packs/Day Years Used Date Smoking Tobacco: Never Assessed Comments Unknown Sex and Gender Information Value Date Recorded Sex Assigned at Not on file Legal Sex Female 1:09 PM CDT Gender Identity Not on file Sexual Orientation Not on file documented as of this encounter Miscellaneous Notes * Cerner Conversion Note - Jennifer ProviderMD - 03/28/2020 3:23 PM PLUNGER SHOVEL OPERATOR Admission History, Adult Entered On: 03/28/2020 15:25 EST Performed On: 03/28/2020 15:23 EST by ARIEL LARA LPN Advance Directive Patient has Advance Directive *Q : Yes, Advance Directive not with the patient Advance Directive Type : Living will, Medical durable power of peanut separator (proxy) Medical Durable Power of Railroad Accountant Name : Yayo Yeh Copy Advance Directive Verified/on Chart : No ARIEL LARACAROLYN 03/28/2020 15:23 EST Anesthesia/Transfusion History Family History of Anesthesia Reaction : No prior transfusion(s) Blood Transfusion Acceptable to Patient : Yes Transfusion History : Prior anesthesia without reaction Family History of Anesthesia Reaction : None ARIEL LARACAROLYN 03/28/2020 15:23 EST Functional Assessment Living Situation : Home Patient Lives With : Spouse Current Home Treatments : None JANE CAROLYN GEORGE 03/28/2020 15:23 EST General Info Legal Guardian : No Support Person/Patient Client Support Administrator : Yes Support Person/Pt Rep Name : Ti yeh - spouse Contact Password : [facility] Support Person/Pt Rep Contact Information : [phone] Want Family/Rep/Phys Notified of Admit : No Emergency Contact #1 : `Ti Yeh Emergency Contact #1 ` Emergency Contact #1 Relationship : ` Emergency Contact #2 : ` Emergency Contact #2 Phone Number : ` Emergency Contact #2 Relationship : ` Primary Language : Malian Communication Barrier : None Resource Room Special Education Teacher Needed : No MARK LARACAROLYN WYLIE 03/28/2020 15:23 EST Fall Risk Scales ABCs Fall Injury Risk Identification : Surgery ABC Fall Injury Risk : Moderate to high injury risk MUNOZ Hx Falls Immediate/Within 3 Months : No Munoz Secondary Diagnosis : Yes MUNOZ Use of Ambulatory Aid : None MUNOZ IV Therapy or IV Access : Yes Munoz Gait/Transferring : Normal, bedrest, immobile Munoz Mental Status : Oriented to own ability Munoz Fall Risk Score : 35 MUNOZ Fall Scale Risk Level : 25-45 Medium Risk [place] Fall Interventions : Adequate lighting, Assistive devices within reach, Bed in low position, Call device within reach, Hourly comfort/safety rounds, Non-slip footwear, Personal items within reach, Reinforced to call for assistance before getting out of bed, Room free of clutter/spills, Upper side-rails up, Wheels locked, Wires/Cords secured ARIEL LARA LPN 03/28/2020 15:23 EST Health Histories Smoking Status : Former smoker, quit more than 30 days ago Smokeless Tobacco Status : Never Implant/Device Type, Odd Job Laborer and Model : none ARIEL LARA LPN 03/28/2020 15:23 EST Social History (As Of: 03/28/2020 15:25:05 EST) Tobacco: Former smoker, quit more than 30 days ago Smoking Status. Never Smokeless Tobacco Status. Last Used: 07-24-2019. (Last Updated: 03/26/2020 10:10:57 EST by Heidi Zamora Rn) Alcohol: Alcohol Use History No. (Last Updated: 07/20/2019 13:02:33 EST by STEWART WILD RN) Substance Abuse: Drug Use Hx: No. Use in Last 12 Months: No. (Last Updated: 07/20/2019 13:02:39 EST by STEWART WILD RN) Home/Environment: Lives with Spouse. Living situation: Home/Independent. Home equipment: Glucose monitoring. (Last Updated: 07/20/2019 13:03:10 EST by STEWART WILD RN) Employment/School: Retired (Last Updated: 07/20/2019 13:03:15 EST by STEWART WILD RN) Height and Weight, Clinical Dosing Height Source : Measured Height Entry Format : [employer] Height, Feet : 0 ft(Converted to: 0 cm, 0 Inch) Height, Inches : 61 Inch(Converted to: 5 ft 1 Inch, 154.94 cm) Clinical Height : 154.94 cm Weight Source : Standing scale Weight Entry Format : [place] Clinical Dosing Weight : 77.91 kg Weight, Pounds : 171.4 lb Body Surface Area (BSA) : 1.77 m2 Body Mass Index : 32.5 kg/m2 (HI) [place] Body Weight : 47 kg ARIEL LARA LPN - 03/28/2020 15:23 EST Infectious Disease History Has the patient ever been tested for COVID-19? : No, Screening today for COVID-19 Where was the COVID-19 Testing completed? : [facility] Date of COVID-19 test known? : Yes Date of COVID-19 Test : 03/26/2020 EST Does patient have symptoms of COVID-19? : No COVID19 Screening : No Experiencing Infectious Disease Symptoms : No symptoms Physical contact outside [place] in the last 30 days : No Infectious Disease History : Chicken pox/Shingles, Measles, Mumps, Pertussis (Whooping cough) Tuberculosis Symptoms : None ARIEL LARA LPN - 03/28/2020 15:23 EST Influenza Vaccine Asmt, Adult Previous Vaccines from Immunization Schedule : No qualifying data available. ARIEL LARA LPN 03/28/2020 15:23 EST Pneumococcal Vaccine Previous Vaccines from Immunization Schedule : No qualifying data available. ARIEL LARA LPN 03/28/2020 15:23 EST Order Details Transport Mode Order Detail : Stretcher/Gurney IV Order Detail : 1 Oxygen Order Detail : 0 Lift/Transfer : Independent Room Service : Appropriate Patient Needs Meds Crushed/Liquid : No ARIEL LARA LPN 03/28/2020 15:23 EST Nutrition History Eating Poorly Due to Decreased Appetite : No Unplanned Weight Loss in Past 3-6 Months : No Malnutrition Screening Tool Total(mal) : 0 Malnutrition Screening Tool Risk Level : Patient not at risk ARIEL LARA LPN 03/28/2020 15:23 EST [place] Suicide Severity Rating Scale (C-SSRS) CSSRS Past Month Wish to be : No CSSRS Past Month Suicidal Thoughts : No CSSRS Lifetime Suicide Behavior : No Suicide Severity Rating Score : 0 Suicide Severity Rating : No Additional Care Required at this time ARIEL LARA LPN 03/28/2020 15:23 EST Psychosocial History Currently in Unsafe Situation : No ARIEL LARA LPN 03/28/2020 15:23 EST Sleep Apnea Risk Assmt BiPAP/CPAP Ordered for Home Use : Yes Hx of Obstructive Sleep Apnea Diagnosis : Yes BiPAP/CPAP Used at Home : No Reason BiPAP/CPAP Not Used at Home : Claustrophobia Age over 50 Years Old : Yes Gender Male : No ARIEL LARA LPN - 03/28/2020 15:23 EST Valuables and Belongings Valuables and Belongings : Clothing, No comfort items, No jewelry, No assistive devices, No respiratory devices, No medications Clothing : Common streetwear Clothing Disposition : With patient ARIEL LARA LPN 03/28/2020 15:23 EST documented in this encounter Plan of Treatment Upcoming Encounters Date Type Department Care Team (Late st Contact Info) Description 05/14/2025 8:00 AM EST Lab Patient Walk-In [place] [facility] - [place] [address] [place] [address] 05/14/2025 8:30 AM EST Appointment [facility] CT [address] [place] [address] Neptali Bergman MD [address] [place] [address] [address] [place] [address] 05/14/2025 10:00 AM EST Appointment [facility] - [address] [place] [address] [place] [address] [place] [address] [address] [place] [address] 05/14/2025 2:15 PM EST Office Visit [facility] - [place] [address] [place] [address] Neptali Bergman MD [address] [place] [address] [address] [place] [address] documented as of this encounter Visit Diagnoses Not on filedocumented in this encounter Care Teams Lockstitch Lining Setter Relationship Specialty Start Date End Date Jonas Navas MD [address] [facility] [address] [place] [address] PCP - General Cardiothoracic Surgery 04/15/22 07/23/22 Marcell Uriostegui MD [address] [place] [address] [place] [address] PCP - General Adolescent Medicine 07/24/22 04/05/23 Heidi Rivers, MINE PATROL [address] [place] [address] PCP - General Nurse Practitioner 04/06/23 Neptali Bergman MD [address] [address] Hematology and Oncology 10/31/24 documented as of this encounter
--- OUTSIDE RECORDS SUMMARY | 2025-04-30 09:24 | XMS_ITS | Encounter Summary ---
Author Organization [employer] ([place], [place], [place], [place], [place]) Address [address] [place] [address] Care Team Providers Care Marble Mechanic Helper Name Role Phone Jonas Navas MD Primary Care Provider [phone] Marcell Uriostegui MD Primary Care Provider + [phone] Heidi Rivers APRN Primary Care Provider + [phone] Neptali Bergman MD Unavailable [phone] Encounter Details Date Type Department Care Team (Late st Contact Info) Description 03/28/2020 Transcribed Document [facility] Family Medicine [facility] [place] [address] ProviderJennifer MD [address] [place] [address] Social History Tobacco Use Types Packs/Day Years Used Date Smoking Tobacco: Never Assessed Comments Unknown Sex and Gender Information Value Date Recorded Sex Assigned at Not on file Legal Sex Female 1:09 PM CDT Gender Identity Not on file Sexual Orientation Not on file documented as of this encounter Miscellaneous Notes * Cerner Conversion Note - Jennifer ProviderMD - 03/28/2020 9:22 AM JOURNEYMAN POWERHOUSE OPERATOR Pain Assessment Entered On: 03/28/2020 15:05 EST Performed On: 03/28/2020 11:52 EST by LAURENCE CHANEY, RN Intervention Information: HYDROmorphone Performed by LAUERNCE CHANEY, RN on 03/28/2020 11:22:00 EST HYDROmorphone,0.5mg IV Push,Right Mid Forearm,Pain (Severe 7-10) Pain Assessment Pain Assessment : Follow-up assessment Pain Scale Goal : 4 Pain Scale Used : FACES Location : Abdominal LAURENCE CHANEY RN - 03/28/2020 15:04 EST Pain Scale Intensity : 6 LAURENCE CHANEY RN - 03/28/2020 15:04 EST Image 4 - Images currently included in the form version of this document have not been included in the text rendition version of the form. documented in this encounter Plan of Treatment Upcoming Encounters Date Type Department Care Team (Late st Contact Info) Description 05/14/2025 8:00 AM EST Lab Patient Walk-In [place] [facility] - [place] [address] [place] [address] 05/14/2025 8:30 AM EST Appointment [facility] [address] [facility] [address] [place] [address] [place] [address] [place] [address] [address] [place] [address] 05/14/2025 10:00 AM EST Appointment [facility] MRI - [facility] [address] [facility] [address] [place] [address] [place] [address] [place] [address] [address] [place] [address] 05/14/2025 2:15 PM EST Office Visit [facility] - [place] [address] [place] [address] Neptali Bergman MD [address] [place] [address] [address] [place] [address] documented as of this encounter Visit Diagnoses Not on filedocumented in this encounter Care Teams Marble Mechanic Helper Relationship Specialty Start Date End Date Jonas Navas MD [address] [facility] [address] [place] [id number] PCP - General Cardiothoracic Surgery 04/15/22 07/23/22 Marcell Uriostegui MD [address] [facility] [address] [place] [address] PCP - General Adolescent Medicine 07/24/22 04/05/23 Heidi Rivers APRN [address] [place] [address] PCP - General Nurse Practitioner 04/06/23 Neptali Bergman MD [address] [facility] [address] [place] [address] Hematology and Oncology 10/31/24 documented as of this encounter
--- OUTSIDE RECORDS SUMMARY | 2025-04-30 09:24 | XMS_ITS | Encounter Summary ---
Author Organization [employer] ([place], [place], [place], [place], [place]) Address [address] [place] [address] Care Team Providers Care Horse Racer Name Role Phone Jonas Navas MD Primary Care Provider [phone] Marcell Uriostegui MD Primary Care Provider + [phone] Heidi Rivers APRN Primary Care Provider + [phone] Neptali Bergman MD Unavailable [phone] Encounter Details Date Type Department Care Team (Late st Contact Info) Description 03/29/2020 Transcribed Document [facility] Family [facility] [place] [address] ProviderJennifer MD [address] [place] [address] Social History Tobacco Use Types Packs/Day Years Used Date Smoking Tobacco: Never Assessed Comments Unknown Sex and Gender Information Value Date Recorded Sex Assigned at Not on file Legal Sex Female 1:09 PM CDT Gender Identity Not on file Sexual Orientation Not on file documented as of this encounter Miscellaneous Notes * Cerner Conversion Note - Jennfier ProviderMD - 03/29/2020 5:00 PM JOB COACH/JOB DEVELOPER Chart Check - Review Order Profile Entered On: 03/29/2020 18:57 EST Performed On: 03/29/2020 17:00 EST by Raheem Baird, RN Chart Check All Active Orders Reviewed : Yes Raheem Baird, RN - 03/29/2020 18:57 EST Electronically signed by Hossein [facility] Conversion Full Time Paramedic Cerner at 09/10/2022 12:32 AM CDT documented in this encounter Plan of Treatment Upcoming Encounters Date Type Department Care Team (Late st Contact Info) Description 05/14/2025 8:00 AM EST Lab Patient Walk-In [facility] - [address] [place] [address] 05/14/2025 8:30 AM EST Appointment [facility] [address] [place] [address] [place] [address] [place] [address] [address] [place] [address] 05/14/2025 10:00 AM EST Appointment [facility] MRI - [address] [place] [address] Neptali Bergman MD [address] [facility] [address] [place] [address] 05/14/2025 2:15 PM EST Office Visit [place] [facility] - [address] [place] [address] Neptali Bergman MD [address] [facility] [address] [place] [address] documented as of this encounter Visit Diagnoses Not on filedocumented in this encounter Care Teams Horse Racer Relationship Specialty Start Date End Date Jonas Navas MD [address] [facility] [address] [place] [address] PCP - General Cardiothoracic Surgery 04/15/22 07/23/22 Marcell Uriostegui MD [address] [place] [address] PCP - General Adolescent Medicine 07/24/22 04/05/23 Heidi Rivers, ROMERO [address] [facility] [address] [place] [address] PCP - General Nurse Practitioner 04/06/23 Neptali Bergman MD [address] [facility] [address] [place] [address] Hematology and Oncology 10/31/24 documented as of this encounter
--- OUTSIDE RECORDS SUMMARY | 2025-04-30 09:24 | XMS_ITS | Encounter Summary ---
Author Organization [employer] ([place], [place], [place], [place], [place]) Address [address] [place] [address] Care Team Providers Care Reverse Unit Operator Name Role Phone Jonas Navas MD Primary Care Provider [phone] Marcell Uriostegui MD Primary Care Provider + [phone] Heidi Rivers APRN Primary Care Provider + [phone] Neptali Bergman MD Unavailable [phone] Encounter Details Date Type Department Care Team (Late st Contact Info) Description 03/28/2020 Transcribed Document [facility] [place] Family Medicine [address] [place] [address] ProviderJennifer MD [address] [place] [address] Social History Tobacco Use Types Packs/Day Years Used Date Smoking Tobacco: Never Assessed Comments Unknown Sex and Gender Information Value Date Recorded Sex Assigned at Not on file Legal Sex Female 1:09 PM CDT Gender Identity Not on file Sexual Orientation Not on file documented as of this encounter Miscellaneous Notes * Cerner Conversion Note - Jennifer ProviderMD - 03/28/2020 6:20 AM FILM PROCESSING SHIFT SUPERVISOR Patient: ALEJANDRINA YEH Age: 64 years Sex: Female : 1955 Associated Diagnoses: None Author: YA DENNEY APRN Chief Complaint L adrenal mass Review of Systems ROS reviewed as documented in chart no change since last seen by surgeon Health Status Allergies: Allergic Reactions (Selected) Severity Not Documented Anoro Ellipta- Chest pain. Corgard- Unknown. DilTIAZem- Unknown. Levaquin- Vomiting. Roxicet- No reactions were documented. Stiolto Respimat 10 ACT- Chest pain and muscle weakness (generalized)., Allergies (6) Active Reaction Anoro Ellipta Chest pain Corgard Unknown dilTIAZem Unknown Levaquin Vomiting Roxicet None Documented Stiolto Respimat 10 ACT Muscle weakness (generalized) Current medications: (Selected) Inpatient Medications Ordered Lactated Ringers Injection intravenous solution 1,000 mL: 20 mL/Hr, IntraVENous Rocephin: 1 Gram, 100 mL/Hr, IV Piggyback, 1-Time lidocaine 1% preservative-free injectable solution: 0.5 mL, IntraDermal, 1-Time Documented Medications Documented ALPRAZolam: 0.25 mg, Oral, At Bedtime, PRN: Insomnia, 0 Refill(s) Advair Diskus 250 mcg-50 mcg inhalation powder: 1 Puff, Inhalation, BID, 180 Each, 0 Refill(s) Tylenol: 1,000 mg, Oral, Q6H, PRN: as needed for pain, 0 Refill(s) albuterol: 2 puffs, Inhalation, Q6H, PRN: as needed for shortness of breath or wheezing, 0 Refill(s) amoxicillin 500 mg oral capsule: 1 Cap, Oral, TID, for 7 Day(s), 21 Cap, 0 Refill(s) aspirin: 325 mg, Oral, Daily, 0 Refill(s) atorvastatin: 40 mg, Oral, At Bedtime, 0 Refill(s) fluticasone 50 mcg/inh nasal spray: 2 [place], Nasal, Daily, PRN: Congestion, 0 Refill(s) hydroCHLOROthiazide-lisinopril 25 mg-20 mg oral tablet: 1 Tab, Oral, Daily, 30 Tab, 0 Refill(s) omeprazole: 20 mg, Oral, Daily, 0 Refill(s), Home Medications (10) Active Advair Diskus 250 mcg-50 mcg inhalation powder 1 Puff, Inhalation, BID albuterol 2 puffs, PRN, Inhalation, Q6H ALPRAZolam 0.25 mg, PRN, Oral, At Bedtime amoxicillin 500 mg oral capsule 500 mg = 1 Cap, Oral, TID aspirin 325 mg, Oral, Daily atorvastatin 40 mg, Oral, At Bedtime fluticasone 50 mcg/inh nasal spray 2 [place], PRN, Nasal, Daily hydroCHLOROthiazide-lisinopril 25 mg-20 mg oral tablet 1 Tab, Oral, Daily omeprazole 20 mg, Oral, Daily Tylenol 1,000 mg, PRN, Oral, Q6H , Medications (3) Active Scheduled: (2) cefTRIAXone 1 Gram, IV Piggyback, 1-Time lidocaine 1% *PF* inj 2 mL 0.5 mL, IntraDermal, 1-Time Continuous: (1) lactated ringers 1,000 mL 1,000 mL, IntraVENous, 20 mL/Hr PRN: (0) Problem list: All Problems (Selected) Sleep apnea no c-pap / SNOMED CT 021350642 / Confirmed Sinusitis / SNOMED CT 97027487 / Confirmed Migraine / SNOMED CT 61183371 / Confirmed Hyperlipidemia / SNOMED CT 96608506 / Confirmed History of obstructive sleep apnea / IMO 10176933 / Confirmed High blood pressure / SNOMED CT 01036563 / Confirmed Hiatal hernia / SNOMED CT 772397992 / Confirmed H/O: TIA / SNOMED CT 216481806 / Confirmed GERD - Gastro-esophageal reflux disease / SNOMED CT 4436707669 / Confirmed Shortness of breath / SNOMED CT 735966747 / Confirmed Diverticulosis / SNOMED CT 2323318410 / Confirmed Diabetes mellitus type II / SNOMED CT 83610284 / Confirmed Coronary artery disease s/p RI / SNOMED CT 3239021013 / Confirmed Claustrophobia / SNOMED CT 48051827 / Confirmed 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 / SNOMED CT 67566023 / Confirmed CA - Lung cancer adenocarcinoma / SNOMED CT 7937609450 / Confirmed Back pain / SNOMED CT 8789377923 / Confirmed Arthritis / SNOMED CT 0706861 / Confirmed, Active Problems (18) Arthritis Back pain CA - Lung cancer adenocarcinoma 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 Claustrophobia Coronary artery disease s/p RI Diabetes mellitus type II Diverticulosis GERD - Gastro-esophageal reflux disease H/O: TIA Hiatal hernia High blood pressure History of obstructive sleep apnea Hyperlipidemia Migraine Shortness of breath Sinusitis Sleep apnea no c-pap L adrenal mass Histories Past Medical History: No active or resolved past medical history items have been selected or recorded. Family History: No family history items have been selected or recorded. Procedure history: abdominal wall mass in the month of 01/2020 at 64 Years. Lobectomy of upper lobe of left lung ([id number]) on 07/25/2019 at 63 Years. lung biopsy on 07/10/2019 at 63 Years. Colonoscopy ([id number]) in the month of 10/2018 at 62 Years. Appendectomy ([id number]). cardiac cath with angioplasty. Social History Social & Psychosocial Habits Alcohol 07/20/2019 Alcohol Use History, Social Habits No Employment/School 07/20/2019 Status: Retired Home/Environment 07/20/2019 Lives with: Spouse Living situation: Home/Independent Home equipment: Glucose monitoring Substance Abuse 07/20/2019 Recreational Drug Use History No Recreational Drug Use Last 12 Months No Tobacco 03/26/2020 Smoking Status Former smoker, quit more Smokeless Tobacco Status Never Month Tobacco Last Used 07-24-2019 . Physical Examination VS/Measurements Vital Signs/Vital Measures 03/28/2020 6:40 EST Systolic Blood Pressure 122 mmHg Diastolic Blood Pressure 54 mmHg LOW Temperature Source Temporal artery scanning Temperature Mode Fahrenheit Temperature, Fahrenheit 97.1 Deg F Heart Rate Monitored 78 bpm Respiratory Rate 20 Breaths/Min Oxygen Saturation 97 % Oxygen Therapy Mode Room air , Vitals Signs (last 24 hrs) Last Charted Minimum Maximum Temp 97.1 (MAR 28:40) 97.1 (MAR 28:40) 97.1 (MAR 28:40) Mon HR 78 (MAR 28:40) 78 (MAR 28:40) 78 (MAR 28:40) Resp Rate 20 (MAR 28:40) 20 (MAR 28 06:40) 20 (MAR 28:40) SBP 122 (MAR 28:40) 122 (MAR 28:40) 122 (MAR 28:40) DBP L 54 (MAR 28:40) L 54 (MAR 28 06:40) L 54 (MAR 28:40) SpO2 97 (MAR 28:40) 97 (MAR 28 06:40) 97 (MAR 28:40) General: Alert and oriented, No acute distress, obese. Eye: Pupils are equal, round and reactive to light, Extraocular movements are intact, glasses. HENT: Normocephalic, Normal hearing. Neck: Supple, Non-tender. Respiratory: Lungs are clear to auscultation, Respirations are non-labored. Cardiovascular: Normal rate, Regular rhythm, No murmur, No gallop, No edema. Gastrointestinal: Soft, Non-tender. Genitourinary: No costovertebral angle tenderness. Lymphatics: No lymphadenopathy neck, axilla, groin. Musculoskeletal: painful ROM of back, LLE weakness. Integumentary: Warm, Dry, [place]. Neurologic: Alert, Oriented. Psychiatric: Cooperative, Appropriate mood & affect. Review / Management Results review: Labs (Last four charted values) K 3.8 (MAR 26) , Lab results 03/28/2020 6:57 EST Potassium POC 3.6 mmol/L Glucose POC 128 mg/dL HI Hematocrit POC 36.0 % LOW Hemoglobin POC 12.2 Gram/dL . Impression and Plan Condition: Stable. documented in this encounter Plan of Treatment Upcoming Encounters Date Type Department Care Team (Late st Contact Info) Description 05/14/2025 8:00 AM EST Lab Patient Walk-In [facility] - [address] [place] [address] 05/14/2025 8:30 AM EST Appointment [facility] CT - [facility] [address] [facility] [address] [place] [address] Neptali Bergman MD [address] [place] [address] [address] [place] [address] 05/14/2025 10:00 AM EST Appointment [facility] - [facility] [address] [facility] [address] [place] [address] Neptali Bergman MD [address] [place] [address] [address] [place] [address] 05/14/2025 2:15 PM EST Office Visit [facility] - [address] [place] [address] Neptali Bergman MD [address] [facility] [address] [place] [address] documented as of this encounter Visit Diagnoses Not on filedocumented in this encounter Care Teams Reverse Unit Operator Relationship Specialty Start Date End Date Jonas Navas MD [address] [facility] [address] [place] [address] PCP - General Cardiothoracic Surgery 04/15/22 07/23/22 Marcell Uriostegui MD [address] [place] [address] PCP - General Adolescent Medicine 07/24/22 04/05/23 Heidi Rivers, MANAGER ADMINISTRATIVE [address] [place] [address] PCP - General Nurse Practitioner 04/06/23 Neptali Bergman MD [address] [facility] [address] [place] [address] Hematology and Oncology 10/31/24 documented as of this encounter
--- OUTSIDE RECORDS SUMMARY | 2025-04-30 09:24 | XMS_ITS | Encounter Summary ---
Author Organization [employer] ([place], [place], [place], [place], [place]) Address [address] [place] [address] Care Team Providers Care Tempering Oven Operator Name Role Phone Jonas Navas MD Primary Care Provider [phone] Marcell Uriostegui MD Primary Care Provider + [phone] Heidi Rivers APRN Primary Care Provider + [phone] Lu Bergman MD Unavailable Encounter Details Date Type Department Care Team (Late st Contact Info) Description 03/29/2020 Transcribed Document [facility] [place] [address] [place] [address] ProviderJennifer MD [address] [place] [address] Social History Tobacco Use Types Packs/Day Years Used Date Smoking Tobacco: Never Assessed Comments Unknown Sex and Gender Information Value Date Recorded Sex Assigned at Not on file Legal Sex Female 1:09 PM CDT Gender Identity Not on file Sexual Orientation Not on file documented as of this encounter Miscellaneous Notes * Cerner Conversion Note - Jennifer ProviderMD - 03/29/2020 7:18 AM STEAM SERVICE INSPECTOR Patient: ALEJANDRINA YEH Age: 64 years Sex: Female : 1955 Associated Diagnoses: None Author: LU BERGMAN MD-ONC Attachments: None Subjective Chief complaint Chief complaint No new issues this AM after adrenalectomy from yesterday. Health Status Allergies Allergies (6) Active Reaction Anoro Ellipta Chest pain Corgard Unknown dilTIAZem Unknown Levaquin Vomiting Roxicet None Documented Stiolto Respimat 10 ACT Muscle weakness (generalized) Current medications Medications (17) Active Scheduled: (9) #NaCl 0.9% *FLUSH* inj 10 mL 10 mL, IV Push, Q8H aspirin EC 325 mg tab 325 mg 1 Tab, Oral, Daily atorvastatin 40 mg tab 40 mg 1 Tab, Oral, At Bedtime cefTRIAXone 1 Gram, IV Piggyback, B90VHnu docusate sodium 100 mg cap 100 mg 1 Cap, Oral, Daily hydrochlorothiazide 25 mg tab 25 mg 1 Tab, Oral, Daily lisinopril 20 mg tab 20 mg 1 Tab, Oral, Daily mometasone/formoterol 200/5 mcg inh 2 Puff, Inhalation, BID pantoprazole EC 40 mg tab 40 mg 1 Tab, Oral, Daily Continuous: (1) NaCl 0.9% 1,000 mL 1,000 mL, IntraVENous, 150 mL/Hr PRN: (7) acetaminophen 500 mg tab 1,000 mg 2 Tab, Oral, Q6H acetaminophen/HYDROcodone 325/7.5 mg tab 1 Tab, Oral, Q4H albuterol 90 mcg/1 puff inh 6.7 g 2 Puff, Inhalation, Q6H ALPRAZolam 0.25 mg tab 0.25 mg 1 Tab, Oral, At Bedtime fluticasone 0.05% nasal spray 2 [place], Nasal, Daily HYDROmorphone 1 mg/1 mL inj 0.2 mg 0.2 mL, IV Push, Q1H promethazine 25 mg/1 mL inj 12.5 mg 0.5 mL, IV Push, Q4H Objective General Alert and oriented No acute distress Eye Pupils are equal, round and reactive to light HENT Normocephalic Neck Supple Respiratory Lungs are clear to auscultation Respirations are non-labored Cardiovascular Normal rate Regular rhythm Gastrointestinal Some mild discomfort Impression and Plan Assessment and Plan Diagnosis 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 Course Progressing as expected Orders Will see in 2 weeks. Have performed molecular test on prior resected tissue and if there is an actionable mutatuion or high PD-1 result will plan on prophylactic thrapy to prevent further recurrence. I have discussed this with patient and spouse. Will restage in 2months or sooner if additional problems come up. Appreciate Dr. Santamaria help. . documented in this encounter Plan of Treatment Upcoming Encounters Date Type Department Care Team (Late st Contact Info) Description 05/14/2025 8:00 AM EST Lab Patient Walk-In [facility] - [address] [place] [address] 05/14/2025 8:30 AM EST Appointment [facility] [address] [place] [address] [place] [address] [place] [address] [address] [place] [address] 05/14/2025 10:00 AM EST Appointment [facility] MRI - [address] [facility] [address] [place] [address] Lu Bergman MD [facility] [address] [place] [address] 05/14/2025 2:15 PM EST Office Visit [facility] - [address] [place] [address] Lu Bergman MD [address] [place] [address] [address] [place] [address] documented as of this encounter Visit Diagnoses Not on filedocumented in this encounter Care Teams Tempering Oven Operator Relationship Specialty Start Date End Date Jonas Navas MD [address] [facility] [address] [place], [place] [address] PCP - General Cardiothoracic Surgery 04/15/22 07/23/22 Marcell Uriostegui MD [address] [place] [address] [place] [address] PCP - General Adolescent Medicine 07/24/22 04/05/23 Heidi Rivers APRN [address] [facility] [address] [place] [address] PCP - General Nurse Practitioner 04/06/23 Lu Bergman MD [address] [facility] [address] [place] [address] Hematology and Oncology 10/31/24 documented as of this encounter
--- OUTSIDE RECORDS SUMMARY | 2025-04-30 09:25 | XMS_ITS ---
Author Organization [employer] ([place], [place], [place], [place], [place]) Address [address] [place] [address] Care Team Providers Care Mechanical Adjuster Name Role Phone Heidi Rivers ROMERO Primary Care Provider [phone] Neptali Bergman MD Unavailable [phone] Active Problems Problem Noted Date Diagnosed Date Malignant neoplasm of upper lobe bronchus, left 02/03/2022 Cancer Staging:Clinical stage from 07/25/2019:Stage IA2(cT1b, cN0, cM0) - Unsigned Pathologic stage from 07/02/2020:Stage IV(pT0, pN0, pM1) - Unsigned Current Treatment and Therapy Plans [facility] LINE CARE - USE WITH INFUSIONS* Plan Start Date:10/31/2024 Linked Problems Malignant neoplasm of upper lobe bronchus, left (HCC) Treatment Medications alteplase (CATHFLO) 2 mg in SW 2 mL syringe Past Treatment and Therapy Plans ONCOLOGY TREATMENT Plan Name Start Date Discontinue Date Treatment Medications Discontinue Reason Plan Provider Cycles [facility] Lung - bevacizumab (Avastin) + PEMEtrexed (Alimta) + CISplatin fb bevacizumab every 21 days 10/30/19 21 04/06/2023 bevacizumab-awwb (MVASI) chemo infusion InjCARBOplatin (PARAPLATIN)CARBOplatin (PARAPLATIN) chemo infusion (by AUC) Injcyanocobalamindexamet hasone (DECADRON) IVPBfosaprepitant (EMEND) IVPB 150 mg in NSgranisetron (KYTRIL)pemetrexed (ALIMTA) chemo infusionsodium chloride 0.9 % (NS) Therapy Complete Neptali Bergman MD 16 (17 of 19 cycles) completed VAD Line Care Plan Name Start Date Discontinue Date Treatment Medications Discontinue Reason Plan Provider [facility] LINE CARE - USE FOR SCHEDULED MAINTENANCE 08/03/2023 07/20/2024 alteplase (CATHFLO) 2 mg in SW 2 mL syringe Therapy Complete -
--- OUTSIDE RECORDS SUMMARY | 2025-04-30 09:25 | XMS_ITS | Encounter Summary ---
Author Organization [employer] ([place], [place], [place], [place], [place]) Address [address] [place] [address] Care Team Providers Care Email Campaign Specialist Name Role Phone Jonas Navas MD Primary Care Provider [phone] Marcell Uriostegui MD Primary Care Provider + [phone] Heidi Rivers APRN Primary Care Provider [phone] Neptali Bergman MD Unavailable [phone] Encounter Details Date Type Department Care Team (Late st Contact Info) Description 03/30/2020 Transcribed Document [facility] [place] [facility] [place] [address] ProviderJennifer MD [address] [place] [address] Social History Tobacco Use Types Packs/Day Years Used Date Smoking Tobacco: Never Assessed Comments Unknown Sex and Gender Information Value Date Recorded Sex Assigned at Not on file Legal Sex Female 1:09 PM CDT Gender Identity Not on file Sexual Orientation Not on file documented as of this encounter Miscellaneous Notes * Cerner Conversion Note - Jennifer ProviderMD - 03/30/2020 5:[address] TECHNICIAN Chart Check - Review Order Profile Entered On: 03/30/2020 3:23 EST Performed On: 03/30/2020 5:00 EST by LINDSAY WHITE LPN Chart Check Powerplans Initiated/Discontinued as Appropriate : Yes All Active Orders Reviewed : Yes LINDSAY WHITE LPN - 03/30/2020 3:23 EST Electronically signed by [facility] Conversion Tobacco Feeder Catcher Cerner at 09/10/2022 12:37 AM CDT documented in this encounter Plan of Treatment Upcoming Encounters Date Type Department Care Team (Late st Contact Info) Description 05/14/2025 8:00 AM EST Lab Patient Walk-In [facility] - [address] [place] [address] 05/14/2025 8:30 AM EST Appointment [facility] Imaging CT - [address] [place] [address] Neptali Bergman MD [address] [place] [address] 05/14/2025 10:00 AM EST Appointment [facility] MRI - [address] [place] [address] Neptali Bergman MD [address] [place] [address] 05/14/2025 2:15 PM EST Office Visit [facility] - [address] [place] [address] Neptali Bergman MD [facility] [address] [place] [address] documented as of this encounter Visit Diagnoses Not on filedocumented in this encounter Care Teams Email Campaign Specialist Relationship Specialty Start Date End Date Jonas Navas MD [address] [facility] [address] [place] [address] PCP - General Cardiothoracic Surgery 04/15/22 07/23/22 Marcell Uriostegui MD [address] [place] [address] PCP - General Adolescent Medicine 07/24/22 04/05/23 Heidi Rivers RIGGER THIRD [address] [facility] [address] [place] [address] PCP - General Nurse Practitioner 04/06/23 Neptali Bergman MD [address] [facility] [address] [place] [address] Hematology and Oncology 10/31/24 documented as of this encounter
--- OUTSIDE RECORDS SUMMARY | 2025-04-30 09:25 | XMS_ITS | Encounter Summary ---
Author Organization [employer] ([place], [place], [place], [place], [place]) Address [address] [place] [address] Care Team Providers Care Customer Solutions Supervisor Name Role Phone Jonas Navas MD Primary Care Provider [phone] Marcell Uriostegui MD Primary Care Provider + [phone] Heidi Rivers APRN Primary Care Provider + [phone] Neptali Bergman MD Unavailable [phone] Encounter Details Date Type Department Care Team (Late st Contact Info) Description 05/22/2020 Transcribed Document [facility] [place] Family Medicine [address] [place] [address] ProviderJennifer MD [address] [place] [address] Social History Tobacco Use Types Packs/Day Years Used Date Smoking Tobacco: Never Assessed Comments Unknown Sex and Gender Information Value Date Recorded Sex Assigned at Not on file Legal Sex Female 1:09 PM CDT Gender Identity Not on file Sexual Orientation Not on file documented as of this encounter Miscellaneous Notes * Cerner Conversion Note - Jennifer ProviderMD - 05/22/2020 1:59 PM ESCORT VEHICLE DRIVER [facility] Main OR PACU Summary Primary Physician: HEIDY GAYTAN MD-SNU Finalized Date/Time: 05/22/20 16:56:44 Pt. Name: ALEJANDRINA YEH /Sex: 1955 Female Med Rec #: [id number] Physician: HEIDY GAYTAN MD-[facility] Financial #: [id number] Pt. Type: I Room/Bed: 641/1 Admit/Disch: 05/22/20 15:58:00 - Institution: [facility] Main OR PACU I Case Times Entry 1 In PACU I 05/22/20 15:35:00 Ready for PACU 05/22/20 16:33:00 Discharge Discharge from PACU 05/22/20 16:55:00 I Last Modified By: Elza Cedeno Rn 05/22/20 16:56:34 [facility] Main OR PACU I Case Times Audit 05/22/20 16:56:34 Maintenance And Engineering Manager: [id number] Modifier: [id number] <+> 1 Discharge from PACU I Finalized By: Elza Cedeno, Rn Document Signatures Signed By: Elza Cedeno Rn 05/22/20 16:56 Electronically signed by [facility] Conversion Grading Clerk Cerner at 09/10/2022 12:47 AM CDT documented in this encounter Plan of Treatment Upcoming Encounters Date Type Department Care Team (Late st Contact Info) Description 05/14/2025 8:00 AM EST Lab Patient Walk-In [facility] - [address] [place] [address] 05/14/2025 8:30 AM EST Appointment [facility] CT - [address] [facility] [address] [place] [address] Neptali Bergman MD [address] [facility] [address] [place] [address] 05/14/2025 10:00 AM EST Appointment [facility] MRI - [address] [facility] [address] [place] [address] Neptali Bergman MD [address] [place] [address] [place] [address] 05/14/2025 2:15 PM EST Office Visit [facility] - [address] [place] [address] Neptali Bergman MD [address] [facility] [address] [place] [address] documented as of this encounter Visit Diagnoses Not on filedocumented in this encounter Care Teams Customer Solutions Supervisor Relationship Specialty Start Date End Date Jonas Navas MD [address] [facility] [address] [place] [address] PCP - General Cardiothoracic Surgery 04/15/22 07/23/22 Marcell Uriostegui MD [address] [facility] [address] [place] [address] PCP - General Adolescent Medicine 07/24/22 04/05/23 Heidi Rivers APRN [address] [facility] [address] [place] [address] PCP - General Nurse Practitioner 04/06/23 Neptali Bergman MD [address] [facility] [address] [place] [address] Hematology and Oncology 10/31/24 documented as of this encounter
--- OUTSIDE RECORDS SUMMARY | 2025-04-30 09:25 | XMS_ITS | Encounter Summary ---
Author Organization [employer] ([place], [place], [place], [place], [place]) Address [address] [place] [address] Care Team Providers Care Residential Assistant Name Role Phone Jonas Navas MD Primary Care Provider [phone] Marcell Uriostegui MD Primary Care Provider + [phone] Heidi Rivers APRN Primary Care Provider + [phone] Neptali Bergman MD Unavailable [phone] Encounter Details Date Type Department Care Team (Late st Contact Info) Description 03/30/2020 Transcribed Document [facility] Family Medicine [address] [place] [address] ProviderJennifer MD [address] [place] [address] Social History Tobacco Use Types Packs/Day Years Used Date Smoking Tobacco: Never Assessed Comments Unknown Sex and Gender Information Value Date Recorded Sex Assigned at Not on file Legal Sex Female 1:09 PM CDT Gender Identity Not on file Sexual Orientation Not on file documented as of this encounter Miscellaneous Notes * Cerner Conversion Note - Jennifer ProviderMD - 03/30/2020 10:56 AM [employer] C[employer] SLABS Final Discharge Planning Entered On: 03/30/2020 10:56 EST Performed On: 03/30/2020 10:56 EST by FRANDY LOONEY RN-Pulp House Supervisor Final Discharge Planning Discharge Arrangements : Patient Post-Acute Information Patient Name: ALEJANDRINA YEH Gender: Female : 55 Age: 64 Years No Post-Acute Placement(s) Listed No Post-Acute Service(s) Listed No Curaspan Referral(s) Listed Follow Up Appointment Scheduled : Yes Discharge To Care Management : Home/Residential/Retirement or Self Care -01 FRANDY LOONEY RN-Pulp House Supervisor - 03/30/2020 10:56 EST Final Narrative Note Final Narrative Note : Discharged to home, agreeable. No needs verbalized at this time. FRANDY LOONEY RN-Pulp House Supervisor - 03/30/2020 10:56 EST Electronically signed by [facility] Conversion Cryptozoologist Cerner at 09/10/2022 12:40 AM CDT documented in this encounter Plan of Treatment Upcoming Encounters Date Type Department Care Team (Late st Contact Info) Description 05/14/2025 8:00 AM EST Lab Patient Walk-In [facility] - [address] [place] [address] 05/14/2025 8:30 AM EST Appointment [facility] [address] [place] [address] Neptali Bergman MD [address] [place] [address] [address] [place] [address] 05/14/2025 10:00 AM EST Appointment [facility] MRI - [address] [facility] [address] [place] [address] Neptali Bergman MD [facility] [address] [place] [address] 05/14/2025 2:15 PM EST Office Visit [facility] - [address] [place] [address] Neptali Bergman MD [facility] [address] [place] [address] documented as of this encounter Visit Diagnoses Not on filedocumented in this encounter Care Teams Residential Assistant Relationship Specialty Start Date End Date Jonas Navas MD [address] [facility] [address] [place] [address] PCP - General Cardiothoracic Surgery 04/15/22 07/23/22 Marcell Uriostegui MD [address] [facility] [address] [place] [address] PCP - General Adolescent Medicine 07/24/22 04/05/23 Heidi Rivers APRN [address] [facility] [address] [place] [address] PCP - General Nurse Practitioner 04/06/23 Neptali Bergman MD [address] [facility] [address] [place] [address] Hematology and Oncology 10/31/24 documented as of this encounter
--- OUTSIDE RECORDS SUMMARY | 2025-04-30 09:25 | XMS_ITS | Encounter Summary ---
Author Organization [employer] ([place], [place], [place], [place], [place]) Address [address] [place] [address] Care Team Providers Care Forensic Photographer Name Role Phone Jonas Navas MD Primary Care Provider [phone] Marcell Uriostegui MD Primary Care Provider + [phone] Heidi Rivers APRN Primary Care Provider + [phone] Neptali Bergman MD Unavailable [phone] Encounter Details Date Type Department Care Team (Late st Contact Info) Description 04/12/2020 Transcribed Document [facility] [place] [address] ProviderJennifer MD [address] [place] [address] Social History Tobacco Use Types Packs/Day Years Used Date Smoking Tobacco: Never Assessed Comments Unknown Sex and Gender Information Value Date Recorded Sex Assigned at Not on file Legal Sex Female 1:09 PM CDT Gender Identity Not on file Sexual Orientation Not on file documented as of this encounter Miscellaneous Notes * Cerner Conversion Note - Jennifer ProviderMD - 04/12/2020 1:42 PM MIDDLE SCHOOL TEACHER UM Authorization Entered On: 04/12/2020 13:42 EST Performed On: 04/12/2020 13:42 EST by ROSA MARIA JONES RN Primary Insurance Authorization Authorization and Policy Numbers : Insurance 1 Health Plan: [employer] Policy Number: [id number] Authorization Number: Insurance [facility] Policy Number: [id number] Authorization Status-Primary : Denial - admission Auth/Referral Contact Name-Primary : DC + Reference Number-Primary : [id number] Authorized Service Begin Date-Primary : 03/28/2020 EST Authorization Comments-Primary : Per VM From [facility] upheld. Sent to Appeals. Historical Authorization Comments-Primary : Comment 1: Left VM for Raymond at Dr. Santamaria office inquiring if p2p was completed. (ROSA MARIA JONES RN 04/03/2020 15:19) Comment 2: Discharge date and summary faxed. (Macy Costello, Stove Refinisher 04/02/2020 14:28) Comment 3: Call back from Raymond with Dr Santamaria office stating she is going to setup P2P for Dr. Santamaria to complete. (ROSA MARIA JONES RN 04/01/2020 14:32) Comment 4: Per VM from [facility] denied IP admission. Called MD office and left VM for Raymond inquiring if they had attempted IP auth and if Dr. Santamaria would complete a P2P. Awaiting callback. Emailed to [facility]. (ROSA MARIA JONES RN 04/01/2020 13:25) Comment 5: [facility] (CICI DIAZ RN 03/29/2020 11:18) ROSA MARIA JONES RN - 04/12/2020 13:42 EST documented in this encounter Plan of Treatment Upcoming Encounters Date Type Department Care Team (Late st Contact Info) Description 05/14/2025 8:00 AM EST Lab Patient Walk-In [place] [facility] - [place] [place] [address] 05/14/2025 8:30 AM EST [facility] [address] [place] [address] Neptali Bergman MD [address] [place] [address] 05/14/2025 10:00 AM EST Appointment [facility] MRI - [address] [place] [address] Neptali Bergman MD [address] [facility] [address] [place] [address] 05/14/2025 2:15 PM EST Office Visit [facility] - [address] [place] [address] Neptali Bergman MD [address] [facility] [address] [place] [address] documented as of this encounter Visit Diagnoses Not on filedocumented in this encounter Care Teams Forensic Photographer Relationship Specialty Start Date End Date Jonas Navas MD [address] [facility] [address] [place] [address] PCP - General Cardiothoracic Surgery 04/15/22 07/23/22 Marcell Uriostegui MD [address] [place] [address] [place] [address] PCP - General Adolescent Medicine 07/24/22 04/05/23 Heidi Rivers, MILKING MACHINE TECHNICIAN [address] [place] [address] PCP - General Nurse Practitioner 04/06/23 Neptali Bergman MD [address] [facility] [address] [place] [address] Hematology and Oncology 10/31/24 documented as of this encounter
--- OUTSIDE RECORDS SUMMARY | 2025-04-30 09:25 | XMS_ITS | Encounter Summary ---
Author Organization [employer] ([place], [place], [place], [place], [place]) Address [address] [place] [address] Care Team Providers Care Fork Assembler Name Role Phone Jonas Navas MD Primary Care Provider [phone] Marcell Uriostegui MD Primary Care Provider + [phone] Heidi Rivers APRN Primary Care Provider + [phone] Neptali Bergman MD Unavailable [phone] Encounter Details Date Type Department Care Team (Late st Contact Info) Description 04/02/2020 Transcribed Document [facility] [place] [facility] [place] [address] ProviderJennifer MD [address] [place] [address] Social History Tobacco Use Types Packs/Day Years Used Date Smoking Tobacco: Never Assessed Comments Unknown Sex and Gender Information Value Date Recorded Sex Assigned at Not on file Legal Sex Female 1:09 PM CDT Gender Identity Not on file Sexual Orientation Not on file documented as of this encounter Miscellaneous Notes * Cerner Conversion Note - Jennifer ProviderMD - 04/02/2020 2:28 PM MEDICAL TECHNICAL WRITER UM Authorization Entered On: 04/02/2020 14:28 EST Performed On: 04/02/2020 14:28 EST by Macy Costello, Internet Sales Associate Primary Insurance Authorization Authorization and Policy Numbers : Insurance 1 Health Plan: [employer] Policy Number: [id number] Authorization Number: Insurance Primary Name : [facility] Policy Number: [id number] Authorization Status-Primary : Denial - admission Auth/Referral Contact Name-Primary : DC + Reference Number-Primary : [id number] Authorized Service Begin Date-Primary : 03/28/2020 EST Authorization Comments-Primary : Discharge date and summary faxed. Historical Authorization Comments-Primary : Comment 1: Call back from Raymond with Dr Santamaria office stating she is going to setup P2P for Dr. Santamaria to complete. (ROSA MARIA JONES RN 04/01/2020 14:32) Comment 2: Per VM from [facility] denied IP admission. Called MD office and left VM for Raymond inquiring if they had attempted IP auth and if Dr. Santamaria would complete a P2P. Awaiting callback. Emailed to [facility]. (ROSA MARIA JONES RN 04/01/2020 13:25) Comment 3: [facility] for IP approval (CICI DIAZ RN 03/29/2020 11:18) Macy Costello, Internet Sales Associate - 04/02/2020 14:28 EST Electronically signed by Kolby Catalan Conversion Furnace And Wash Equipment Operator Cerner at 09/10/2022 12:31 AM CDT documented in this encounter Plan of Treatment Upcoming Encounters Date Type Department Care Team (Late st Contact Info) Description 05/14/2025 8:00 AM EST Lab Patient Walk-In [place] [facility] [place] [address] [place] [address] 05/14/2025 8:30 AM EST Appointment [facility] CT - [facility] [address] [facility] [address] [place] [address] Neptali Bergman MD [address] [place] [address] [address] [place] [address] 05/14/2025 10:00 AM EST Appointment [facility] MRI - [facility] [address] [facility] [address] [place] [address] Neptali Bergman MD [address] [place] [address] [address] [place] [address] 05/14/2025 2:15 PM EST Office Visit [facility] - [address] [facility] [address] [place] [address] Neptali Bergman MD [address] [facility] [address] [place] [address] documented as of this encounter Visit Diagnoses Not on filedocumented in this encounter Care Teams Fork Assembler Relationship Specialty Start Date End Date Jonas Navas MD [address] [facility] [address] [place], [place] [address] PCP - General Cardiothoracic Surgery 04/15/22 07/23/22 Marcell Uriostegui MD [address] [place] [address] [place] [address] PCP - General Adolescent Medicine 07/24/22 04/05/23 Heidi Rivers, BUSINESS ANALYTICS FACULTY MEMBER [address] [facility] [address] [place] [address] PCP - General Nurse Practitioner 04/06/23 Neptali Bergman MD [address] [facility] [address] [place] [address] Hematology and Oncology 10/31/24 documented as of this encounter
--- OUTSIDE RECORDS SUMMARY | 2025-04-30 09:25 | XMS_ITS | Encounter Summary ---
Author Organization [email or web address] ([place], [place], [place], [place], [place]) Address [address] [place] [address] Care Team Providers Care Longwall Headgate Operator Name Role Phone Jonas Navas MD Primary Care Provider [phone] Marcell Uriostegui MD Primary Care Provider + [phone] Heidi Rivers APRN Primary Care Provider + [phone] Neptali Bergman MD Unavailable [phone] Encounter Details Date Type Department Care Team (Late st Contact Info) Description 05/22/2020 Transcribed Document [facility] [place] [address] [place] [address] ProviderJennifer MD [address] [place] [address] Social History Tobacco Use Types Packs/Day Years Used Date Smoking Tobacco: Never Assessed Comments Unknown Sex and Gender Information Value Date Recorded Sex Assigned at Not on file Legal Sex Female 1:09 PM CDT Gender Identity Not on file Sexual Orientation Not on file documented as of this encounter Miscellaneous Notes * Cerner Conversion Note - Jennifer ProviderMD - 05/22/2020 3:21 PM RN ACUTE DIALYSIS Evaluation, Occupational Therapy Entered On: 05/23/2020 12:29 EST Performed On: 05/23/2020 10:22 EST by BELL SOARES, OTR/L General Information, OT Visit Type, OT : Initial evaluation Patient Orders : Order Date Order Ordering 05/22/2020 15:22 Occupational Therapy Evaluation and Treatme Ordered By: HEIDY GAYTAN MD-SNU Active Diagnoses : 05/23/2020 12:00 Spondylolisthesis, site unspecified Admission Date : 05/22/2020 15:58 Co-treated by, OT : Physical Therapist Personal Devices : Personal Devices No Devices Recorded Assistive Devices : Assistive Devices No Devices Recorded General Information Comment, OT : 64 yo female who was admitted to [facility] on 05/22 for spondylosis with myelopathy, s/p L5-S1 TLIF. PMHx: lung cancer, CAD, DM, GERD, HLD, and HTN. BELL SOARES OTR/Kayode - 05/23/2020 12:12 EST General Status Patient Received Status : Supine in bed Treatment Start Time : 05/23/2020 9:45 EST Patient Left Status : Up in chair, RN/PCT informed, Family/Visitors at bedside, All needs met and within reach RN/PCT Informed Comment : ASHLEY Gary Treatment End Time : 05/23/2020 10:24 EST Treatment Time : 39 Minute(s) BELL SOARES OTR/Kayode - 05/23/2020 12:12 EST History and Environment, OT Living Situation, Therapy : Home Patient Lives With : Spouse Persons Assisting Patient at Home : Spouse Professional Skilled Services : None Persons Providing Information : Patient Home Equipment, Therapy : Shower Equipment, Walker Shower Equipment : Shower Chair, with back Walker : Walker, four wheel Home Setup : One story Stairs : Yes Stair Location(s) : Outside Outside Stairs, Number of Steps : 1 Railing Outside : No Ramp : No BELL SOARES OTR/Kayode - 05/23/2020 12:12 EST Prior LOF Bathing, OT : Independent Prior LOF Bed Mobility : Independent Prior LOF Upper Body Dressing, OT : Independent Prior LOF Lower Body Dressing, OT : Independent Prior LOF Toileting : Independent Prior LOF Transfer : Independent Prior LOF Grooming, OT : Independent Prior LOF for IADLs, OT : Independent BELL SOARES OTR/Kayode - 05/23/2020 12:12 EST Upper Extremity Right UE Active ROM : WFL Right UE Strength : WFL Left UE Active ROM : WFL Left UE Strength : WFL Upper Extremity Strength Impaired : No Right UE Strength : WFL Left UE Strength : WFL Upper Extremity Comment : BUE ROM and MMT WFL BELL SOARES OTR/L - 05/23/2020 12:12 EST Self Care/Home Management, OT Self Feeding Assist Level, OT : Independent, complete Grooming Assist Level, OT : Independent, modified Bathing Assist Level, OT : Supervision or set-up Upper Body Dressing Assist Level, OT : Independent, complete Lower Body Dressing Assist Level, OT : Independent, modified Toileting Assist Level : Independent, complete Toilet Transfer Assist Level : Supervision or set-up BELL SOARES OTR/L - 05/23/2020 12:12 EST Mobility Device/Prosthesis/Wt Bearing Weight Bearing Order Status : No brace orders Weight Bearing Status Maintained : Yes Weight Bearing Status : As tolerated BELL SOARES OTR/L - 05/23/2020 12:12 EST Functional Mobility Mobility Grid Supine to Sit : Rehab Moderate assistance Sit to Stand : Supervision/set-up Stand to Sit : Supervision/set-up BELL SOARES OTR/L - 05/23/2020 12:12 EST Sit to Stand Device : Belt, gait, Walker, front wheel Stand to Sit Device : Belt, gait, Walker, front wheel BELL SOARES OTR/L - 05/23/2020 12:12 EST Cognition Assessment, OT Orientation : Oriented x 4 Cognition Assessment, OT : Intact Comprehension Assessment, OT : Intact BELL SOARES OTR/L - 05/23/2020 12:12 EST Education OT Occupational Therapy Education Grid Activity of Daily Living Training : Returns demonstration Functional Mobility Training : Returns demonstration Role of Occupational Therapy : Verbalizes understanding BELL SOARESNOLVIAR/Kayode - 05/23/2020 12:12 EST Teaching/Learning Assessment Barriers To Learning : None evident Individuals Taught : Patient Readiness to Learn : Cooperative Readiness to Learn : Explanation Learning Style Preferences Patient : Verbal explanation BELL SOARESNOLVIAR/Kayode - 05/23/2020 12:12 EST Indication Assessment, OT Occupational Therapy Indicated : No Occupational Therapy Not Indicated : No skilled services indicated BELL SOARESNOLVIAR/Kayode - 05/23/2020 12:12 EST Plan of Care, OT OT Tx Plan/Goals Established w Patient : No Reason OT Treatment/Plan Not Established : Pt independent to modified independent with ADLs BELL SOARES OTR/L - 05/23/2020 12:12 EST Treatment Note Subjective Comment : Pt and RN okay'd OT eval at this time Patient's Response to Treatment : Pt tolerated OT eval well Additional Objective Information : Pt supine in bed upon OT arrival. Pt to EOB with Mod A. Pt stood with RWx and supervision. Pt walked 10ft to restroom with RWx and supervision. Pt completed toilet transfer with left grab bar and supervision. Pt independent with hygiene/lidya care. Pt stood from toilet with left grab bar and supervision. Pt stood at sink x2 mins with supervision for hand hygiene. Pt proceeded to walk 360ft with RWx and supervision. Pt returned to room and sat in chair with supervision. Pt provided and educated on AE and completed lower body dressing with appropriate AE. Pt left sitting up in chair with call light/phone within reach adn O2 at 87%, RN placed pt back on 1L O2 via nasal canula. Assessment : No OT concerns at this time. Plan for Treatment : Defer OT BELL SOARESNOLVIAR/Kayode - 05/23/2020 12:12 EST Pain Assessment Pain Scaled Used : 0-10 Pain scale Pain Score Pre-Intervention : 6 Location : Back BELL SOARESNOLVIAR/Kayode - 05/23/2020 12:12 EST Image 1 - Images currently included in the form version of this document have not been included in the text rendition version of the form. Anticipated Discharge Needs, OT/PT Anticipated Discharge to : Home, with family care Anticipated Home Equipment : Walker Recommend Continued Therapy at Discharge : No Walker : Walker, front wheel BELL SOARESNOLVIAR/Kayode - 05/23/2020 12:12 EST Point OT Charges OT Selfcare/Hm Mgmt Ea 15 Min : 1 OT Ther Activities Ea 15 Min : 1 OT Eval Low Complexity : 1 BELL SOARESNOLVIAR/Kayode - 05/23/2020 12:12 EST Electronically signed by [facility] Conversion Public Events Facilities Rental Manager Cerner at 09/10/2022 12:30 AM CDT documented in this encounter Plan of Treatment Upcoming Encounters Date Type Department Care Team (Late st Contact Info) Description 05/14/2025 8:00 AM EST Lab Patient Walk-In [facility] - [place] [place] [address] 05/14/2025 8:30 AM EST [facility]ment [facility] [address] [place] [address] Neptali Bergman MD [address] [place] [address] [address] [place] [address] 05/14/2025 10:00 AM EST Appointment [facility] - [address] [facility] [address] [place] [address] Neptali Bergman MD [address] [place] [address] [address] [place] [address] 05/14/2025 2:15 PM EST Office Visit [facility] - [address] [place] [address] Neptali Bergman MD [address] [place] [address] [address] [place] [address] documented as of this encounter Visit Diagnoses Not on filedocumented in this encounter Care Teams Longwall Headgate Operator Relationship Specialty Start Date End Date Jonas Navas MD [address] [facility] [address] [place] [address] PCP - General Cardiothoracic Surgery 04/15/22 07/23/22 Marcell Uriostegui MD [address] [place] [address] [place] [address] PCP - General Adolescent Medicine 07/24/22 04/05/23 Heidi Rivers, VETERINARY EPIDEMIOLOGIST [address] [place] [address] PCP - General Nurse Practitioner 04/06/23 Neptali Bergman MD [address] [address] Hematology and Oncology 10/31/24 documented as of this encounter
--- OUTSIDE RECORDS SUMMARY | 2025-04-30 09:25 | XMS_ITS | Encounter Summary ---
Author Organization [employer] ([place], [place], [place], [place], [place]) Address [address] [place] [address] Care Team Providers Care Janitorial Account Manager Name Role Phone Jonas Navas MD Primary Care Provider [phone] Marcell Uriostegui MD Primary Care Provider + [phone] Heidi Rivers APRN Primary Care Provider + [phone] Neptali Bergman MD Unavailable [phone] Encounter Details Date Type Department Care Team (Late st Contact Info) Description 04/03/2020 Transcribed Document [facility] [place] [facility] [place] [address] ProviderJennifer MD [address] [place] [address] Social History Tobacco Use Types Packs/Day Years Used Date Smoking Tobacco: Never Assessed Comments Unknown Sex and Gender Information Value Date Recorded Sex Assigned at Not on file Legal Sex Female 1:09 PM CDT Gender Identity Not on file Sexual Orientation Not on file documented as of this encounter Miscellaneous Notes * Cerner Conversion Note - Jennifer Arroyo MD - 04/03/2020 3:19 PM SALESFORCE TRAINER UM Authorization Entered On: 04/03/2020 15:20 EST Performed On: 04/03/2020 15:19 EST by ROSA MARIA JONES RN Primary Insurance Authorization Authorization and Policy Numbers : Insurance 1 Health Plan: [employer] Policy Number: [id number] Authorization Number: Insurance Primary [facility] Policy Number: [id number] Authorization Status-Primary : Denial - admission Auth/Referral Contact Name-Primary : DC + Reference Number-Primary : [id number] Authorized Service Begin Date-Primary : 03/28/2020 EST Authorization Comments-Primary : Left VM for Raymond at Dr. Santamaria office inquiring if p2p was completed. Historical Authorization Comments-Primary : Comment 1: Discharge date and summary faxed. (Macy Costello, Elevator Constructor Supervisor 04/02/2020 14:28) Comment 2: Call back from Raymond with Dr Santamaria office stating she is going to setup P2P for Dr. Santamaria to complete. (ROSA MARIA JONES RN 04/01/2020 14:32) Comment 3: Per VM from [facility] denied IP admission. Called MD office and left VM for Raymond inquiring if they had attempted IP auth and if Dr. Santamaria would complete a P2P. Awaiting callback. Emailed to [facility]. (ROSA MARIA JONES RN 04/01/2020 13:25) Comment 4: Clinicals submitted via [facility] for IP approval (CICI DIAZ RN 03/29/2020 11:18) ROSA MARIA JONES RN - 04/03/2020 15:19 EST documented in this encounter Plan of Treatment Upcoming Encounters Date Type Department Care Team (Late st Contact Info) Description 05/14/2025 8:00 AM EST Lab Patient [facility]-In [facility] On[facility] - [address] [place] [address] 05/14/2025 8:30 AM EST Appointment [facility] CT - [address] [facility] [address] [place] [address] Neptali Bergman MD [address] [facility] [address] [place] [address] 05/14/2025 10:00 AM EST Appointment [facility] MRI - [facility] [address] [facility] [address] [place] [address] Neptali Bergman MD [address] [facility] [address] [place] [address] 05/14/2025 2:15 PM EST Office Visit [facility] - [address] [place] [address] [place] [address] [place] [address] [address] [place] [address] documented as of this encounter Visit Diagnoses Not on filedocumented in this encounter Care Teams Janitorial Account Manager Relationship Specialty Start Date End Date Jonas Navas MD [address] [facility] [address] [place] [address] PCP - General Cardiothoracic Surgery 04/15/22 07/23/22 Marcell Uriostegui MD [address] [facility] [address] [place] [address] PCP - General Adolescent Medicine 07/24/22 04/05/23 Heidi Rivers, ROMERO [address] [facility] [address] [place] [address] PCP - General Nurse Practitioner 04/06/23 Neptali Bergman MD [address] [facility] [address] [place] [address] Hematology and Oncology 10/31/24 documented as of this encounter
--- OUTSIDE RECORDS SUMMARY | 2025-04-30 09:25 | XMS_ITS | Encounter Summary ---
Author Organization [employer] ([place], [place], [place], [place], [place]) Address [address] [place] [address] Care Team Providers Care Second Cook And Baker Name Role Phone Jonas Navas MD Primary Care Provider [phone] Marcell Uriostegui MD Primary Care Provider + [phone] Heidi Rivers APRN Primary Care Provider [phone] Neptali Bergman MD Unavailable [phone] Encounter Details Date Type Department Care Team (Late st Contact Info) Description 03/30/2020 Transcribed Document [facility] [place] [address] ProviderJennifer MD [address] [place] [address] Social History Tobacco Use Types Packs/Day Years Used Date Smoking Tobacco: Never Assessed Comments Unknown Sex and Gender Information Value Date Recorded Sex Assigned at Not on file Legal Sex Female 1:09 PM CDT Gender Identity Not on file Sexual Orientation Not on file documented as of this encounter Miscellaneous Notes * Cerner Conversion Note - Jennifer Arroyo MD - 03/30/2020 11:55 AM 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 [address] ALEJANDRINA YEH :1955 Visit Time:03/28/2020 Your Visit Summary Your Care Team Admitting Physician - RICKY ROMANO MD-URO Attending Physician - RICKY ROMANO MD-URO Referring Physician - RICKY ROMAON MD-URO Your Diagnosis Coronary artery disease s/p SD Adrenal mass, Other specified disorders of adrenal gland, Other specified disorders of adrenal gland Discharge Vitals Temperature 36.6 ??C Heart Rate (Monitored) 71 Respiratory Rate 18 Blood Pressure 126/65 What to do next Follow-Up Appointments Follow Up with RICKY ROMANO MD-URO When 04/15/2020 02:15 PM EST Comments postop f/u; Appointment has been made Bring discharge instructions with you Bring Ins Card, Photo ID, Ins Co-pay Where: [address] [place] [address] [place] [address]- Medications What How Much When Instructions Next Dose acetaminophen-hydrocodone ([place] 7.5 mg-325 mg oral tablet) 1 Tablet(s) Oral Every 4 Hours as needed for Pain Printed Prescription docusate (Colace 100 mg oral capsule) 1 Capsule(s) Oral Every Day Printed Prescription acetaminophen (Tylenol) 1,000 Milligram(s) Oral Every 6 Hours as needed for as needed for pain albuterol 2 puffs Inhalation Every 6 Hours as needed for as needed for shortness of breath or wheezing ALPRAZolam 0.25 Milligram(s) Oral At Bedtime as needed for Insomnia amoxicillin (amoxicillin 500 mg oral capsule) 1 Capsule(s) Oral Three Times A Day Duration: 7 Day(s) aspirin 325 Milligram(s) Oral Every Day atorvastatin 40 Milligram(s) Oral At Bedtime fluticasone nasal (fluticasone 50 mcg/ inh nasal spray) 2 [place](s) Nasal Every Day as needed for Congestion fluticasone-salmeterol (Advair Diskus 250 mcg-50 mcg inhalation powder) 1 Puff(s) Inhalation Two Times A Day hydrochlorothiazide-lisinopril (hydroCHLOROthiazide-lisinopril 25 mg-20 mg oral tablet) 1 Tablet(s) Oral Every Day omeprazole 20 Milligram(s) Oral Every Day Take your medications faithfully. Do NOT skip [...] (Chest pain) Corgard (Unknown) Levaquin (Vomiting) Roxicet Stiolto Respimat 10 ACT (Muscle weakness (generalized), Chest pain) dilTIAZem (Unknown) Immunizations This Visit No Immunizations Found Stroke/TIA Instructions Individualized Stroke Risk Factors Individualized Stroke Risk Factors *Q: Hypertension/High blood pressure Stroke/TIA Signs/Symptoms to Report Immediately: Sudden onset difficulty speaking, Sudden onset difficulty understanding speech, Sudden onset change in vision, Sudden onset weakness particulary on one side of the body, Sudden onset numbness/tingling, Sudden severe headache, Sudden dizziness or trouble with gait, Call : EMS activation is crucial Mutually Agreed Upon Goals My LDL Level: My LDL Level: Education Materials Adrenalectomy, Care After This sheet gives you information about how to care for yourself after your procedure. Your health care provider may also give you more specific instructions. If you have problems or questions, contact your health care provider. What can I expect after the procedure? After the procedure, it is common to have: ??? A sore throat. This may occur if you had a breathing tube inserted down your throat. ??? Soreness and mild pain in the abdomen where the incisions were made. Follow these instructions at home: Incision care ??? Follow instructions from your health care provider about how to take care of your incision(s). Make sure you: ? Wash your hands with soap and water before and after you change your bandage (dressing). If soap and water are not available, use hand team supervisor. ? Change your dressing as told by [...] you to do that. ??? Check your incision area(s) every day for signs of infection. Check for: ? Redness, swelling, or increasing pain. ? Fluid or blood. ? Warmth. ? Pus or a bad smell. ??? Do not take baths, swim, or use a hot tub until your health care provider approves. Ask your health care provider if you may take showers. You may only be allowed to take sponge baths. Medicines ??? Take xypx-vvw-xqbnatl and prescription medicines only as told by your health care provider. ??? Do not drive or use heavy machinery while taking prescription pain medicine or medicine for nausea. ??? Ask your health care provider about the need for new medicine or changes in existing medicines if the removed adrenal gland was making too much of a hormone, usually cortisol, aldosterone, or adrenaline. ??? If both of your adrenal glands were removed, you may need to: ? Take certain hormone replacement medicines for life. ? Wear a medical alert bracelet that states your adrenal glands have been removed. ? Ask your health care provider what to do if you get sick and are not able to take your medicines. This is called a sick day plan. Activity ??? Do not lift anything that is heavier than 10 lb (4.5 kg), or the limit that you are told, until your health care provider says that it is safe. ??? Return to your normal activities as told by your health care provider. Ask your health care provider what activities are safe for you. General instructions ??? Follow the diet that your health care provider prescribed for you. ??? Wear compression stockings as told by your health care provider. These stockings help to prevent blood clots and reduce swelling in your legs. ??? Do not use any products that contain nicotine or tobacco, such as cigarettes, e-cigarettes, and chewing tobacco. These can delay healing after surgery. If you need help quitting, ask your health care provider. ??? Weigh yourself and take your blood pressure every day if told by your health care provider. Your health care provider will tell you what results should be reported right away. ??? Keep all follow-up visits as told by your health care provider. This is important. Contact a health care provider if: ??? You have redness, swelling, or increasing pain around an incision. ??? You have fluid or blood coming from an incision. ??? Your incision feels warm to the touch. ??? You have pus or a bad smell coming from an incision or a dressing. ??? You have a fever or chills. ??? Your pain does not improve with the pain medicines you have been given. ??? You cannot take your medicines for any reason. ??? You feel nauseous or you vomit. ??? You are constipated or you have diarrhea. ??? You develop a rash. ??? You develop a new cough. ??? Your blood pressure is too high or too low. ??? You have problems with your urine, such as: ? Pain or burning with urination. ? A need to urinate more often than usual. ? Blood in your urine. Get help right away if: ??? You have chest pain. ??? You have shortness of breath. ??? You suddenly feel too weak or dizzy to stand or walk. ??? You have a severe increase in pain. ??? You have pain, tenderness, or redness in your calf. ??? You have an incision that opens up. The dressing on an incision may become soaked with blood. Summary ??? After an adrenalectomy, it is common to have a sore throat and mild pain in the abdomen. ??? Follow your health care provider's instructions for caring for your incision(s). ??? You may be given medicines to treat pain and to regulate certain hormone levels. Take them exactly as told. ??? Contact a health care provider if you have nausea, rash, fever or chills, or other signs of infection. Also, report if you have problems with urination or are constipated or have diarrhea. ??? Get help right away if you have chest pain, shortness of breath, pain or tenderness in your calf, or an incision that opens up. This information is not intended to replace advice given to you by your health care provider. Make sure you discuss any questions you have with your health care provider. Document Released: 08/25/2011 Document Revised: 01/31/2019 Document Reviewed: 01/31/2019 [employer] Patient Education ?? 2020 [employer]. Adrenalectomy Adrenal glands are organs that make several hormones that your body needs in order to function. You have two adrenal glands, one above each kidney. An adrenalectomy is a surgery to remove an adrenal gland. You may need this surgery if an adrenal gland is making too much hormone or if you have a tumor on your adrenal gland. One healthy adrenal gland can produce enough adrenal hormones to live a normal life. So, after one adrenal gland is removed, hormone replacement is not needed. There are two kinds of adrenalectomy: ??? Laparoscopic. This kind is done through small cuts (incisions) with the help of a lighted, pencil-sized instrument (laparoscope). ??? Open. This kind is done through a larger incision. Tell a health care provider about: ??? Any allergies you have. ??? All medicines you are taking, including vitamins, herbs, eye drops, creams, and ytut-mke-yvepuuk medicines. ??? Any problems you or family members have had with anesthetic medicines. ??? Any blood disorders you have. ??? Any surgeries you have had. ??? Any medical conditions you have. ??? Whether you are or may be . What are the risks? Generally, this is a safe procedure. However, problems may occur, including: ??? Infection. ??? Bleeding. ??? Allergic reactions to medicines. ??? Injury to other organs. ??? High blood pressure (hypertension) or low blood pressure (hypotension). What happens before the procedure? Staying hydrated Follow instructions from your health care provider about hydration, which may include: ??? Up to 2 hours before the procedure ??? you may continue to drink clear liquids, such as water, clear fruit juice, black coffee, and plain tea. Eating and drinking restrictions Follow instructions from your health care provider about eating and drinking, which may include: ??? 8 hours before the procedure ??? stop eating heavy meals or foods, such as meat, fried foods, or fatty foods. ??? 6 hours before the procedure ??? stop eating light meals or foods, such as toast or cereal. ??? 6 hours before the procedure ??? stop drinking milk or drinks that contain milk. ??? 2 hours before the procedure ??? stop drinking clear liquids. Medicines Ask your health care provider about: ??? Changing or stopping your regular medicines. This is especially important if you are taking diabetes medicines or blood thinners. ??? Taking medicines such as aspirin and ibuprofen. These medicines can thin your blood. Do not take these medicines unless your health care provider tells you to take them. ??? Taking prescription medicines to lower the levels of hormones if the glands are producing too much of them. These hormones are cortisol, aldosterone, or adrenaline. ??? Taking lfre-awt-synpwyo medicines, vitamins, herbs, and supplements. General instructions ??? Do not use any products that contain nicotine or tobacco for at least 4 weeks before the procedure. These products include cigarettes, e-cigarettes, and chewing tobacco. If you need help quitting, ask your health care provider. ??? Your health care provider may do blood tests and imaging tests. ??? Ask your health care provider: ? How your surgical site will be marked or identified. ? What steps will be taken to help prevent infection. These may include: ? Removing hair at the surgery site. ? Washing skin with a germ-killing soap. ? Taking antibiotic medicine. What happens during the procedure? An IV will be inserted into one of your veins. ??? You will be given one or both of the following: ? A medicine to help you relax (sedative). ? A medicine to make you fall asleep (general anesthetic). ??? A thin, flexible tube (catheter) may be put into your bladder to drain urine. ??? A tube may be passed through your nose or mouth and into your stomach (NG tube or nasogastric tube). This tube removes fluid from your stomach to keep you from feeling nauseous and vomiting. ??? Your surgeon will choose one of the following methods for your surgery. ? For laparoscopic adrenalectomy: ? 3???4 small incisions will be made in your abdomen. ? Carbon dioxide will be pumped into your abdomen to make it easy for your surgeon to see internal organs. ? A laparoscope and other small surgical instruments will be put through the incisions. ? For open adrenalectomy: ? A large incision will be made under your rib cage, in the middle of your abdomen, or along your side. ??? The blood vessels that lead to the adrenal gland will be tied off or clipped to prevent bleeding. ??? The adrenal gland will be removed. ??? Nearby organs will be checked. ??? Your abdomen will be rinsed with sterile saline solution. ??? Your muscles will be stitched (sutured) back together. ??? Your incisions will be closed. This may be done using stitches (sutures), cody, skin glue, or adhesive strips. ??? A bandage (dressing) will be used to cover the incisions. The procedure may vary among health care providers and hospitals. What happens after the procedure? Your blood pressure, heart rate, breathing rate, and blood oxygen level will be monitored until you leave the hospital or clinic. ??? If a tube was inserted into your bladder or stomach, it will be removed as soon as possible. ??? You may have to wear compression stockings. These stockings help to prevent blood clots and reduce swelling in your legs. ??? You will be given medicines: ? To treat pain. ? To regulate certain hormone levels. ? To control blood pressure. Summary ??? An adrenalectomy is a surgery to remove an adrenal gland. ??? This is a safe procedure. However, problems may occur, such as infection, bleeding, allergic reactions to medicines, high or low blood pressure, or injury to other organs. ??? Follow your health care provider's instructions about eating and drinking, quitting smoking, and taking medicines before the procedure. ??? Your surgery will be done in one of two ways: minimally invasive surgery or open surgery. ??? You will be monitored closely after the surgery. You will also be given medicines to treat pain, regulate certain hormone levels, and control blood pressure. This information is not intended to replace advice given to you by your health care provider. Make sure you discuss any questions you have with your health care provider. Document Released: 08/25/2011 Document Revised: 01/31/2019 Document Reviewed: 01/31/2019 Elsevier Patient Education ?? 2020 [employer] Emergency Awareness and Preventative Care STROKE [...] Assistance with quitting is available by contacting 2-217-[employer]NOW. This is a free resource providing counseling, support, and referral. Or you may contact your personal physician. [employer] Suicide Prevention Lifeline: The National Suicide Prevention [...] This Visit (last charted value for your 03/28/2020 visit) Hematology 03/29/2020 6:02 AM WBC: 13.6 K/uL -- Normal range between ( 4.5 and 10.5 ) RBC: 3.36 Million/uL -- Normal range between ( 3.93 and 5.22 ) Hct: 29.1 % -- Normal range between ( 34.1 and 44.9 ) Hgb: 8.9 g/dL -- Normal range between ( 11.2 and 15.7 ) Platelet Count: 251 K/uL -- Normal range between ( 163 and 369 ) MCH: 26.5 pg -- Normal range between ( 25.6 and 32.2 ) MCHC: 30.6 Gram/dL -- Normal range between ( 32.2 and 36.5 ) MCV: 86.6 fL -- Normal range between ( 79.0 and 94.8 ) Slide Review: No RDW: 17.1 % -- Normal range between ( 11.7 and 14.9 ) MPV: 10.7 fL -- Normal range between ( 9.4 and 12.4 ) 03/28/2020 6:57 AM Hemoglobin POC: 12.2 Gram/dL -- Normal range between ( 12.0 and 17.0 ) Hematocrit POC: 36.0 % -- Normal range between ( 38.0 and 51.0 ) Blood Bank 03/28/2020 6:51 AM ABO/Rh (ECHO): A POS Antibody Screen: Negative ABSC General Chemistry 03/29/2020 6:02 AM Creatinine Level: 1.00 mg/dL -- Normal range between ( 0.55 and 1.02 ) Sodium Level: 138 mmol/L -- Normal range between ( 136 and 146 ) Potassium Level: 3.9 mmol/L -- Normal range between ( 3.5 and 5.1 ) Chloride Level: 104 mmol/L -- Normal range between ( 102 and 112 ) Carbon Dioxide Level: 28 mmol/L -- Normal range between ( 21 and 32 ) Anion Gap: 10 -- Normal range between ( 9 and 20 ) Bun/Creatinine: 15.0 -- Normal range between ( 8.0 and 20.0 ) Calcium Level: 8.7 mg/dL -- Normal range between ( 8.4 and 10.1 ) eGFR : >60 mL/min/1.73m2 eGFR NonAfrican: 56 mL/min/1.73m2 Glucose Level: 128 mg/dL -- Normal range between ( 74 and 106 ) Blood Urea Nitrogen: 15 mg/dL -- Normal range between ( 7 and 22 ) 03/28/2020 9:17 PM Glucose POC2: 138 mg/dL -- Normal range between ( 70 and 110 ) Device Comment 1: Device Comment 1 03/28/2020 6:57 AM Potassium POC: 3.6 mmol/L -- Normal range between ( 3.5 and 4.9 ) Glucose POC: 128 mg/dL -- Normal range between ( 70 and 105 ) Endocrinology 03/26/2020 1:16 PM Cortisol Level: 6.2 mcg/dL Dopamine, Plasma: <30 pg/mL Epinephrine, Plasma: <15 pg/mL Norepinephrine, Plasma: 832 pg/mL Patient Name:ALEJANDRINA YEH I have received and understand this information and was given the opportunity to ask questions. Patient/Caltrans Equipment Operator Name: Patient/Caltrans Equipment Operator Signature: Relationship to Patient: Clinician/Hospital Caltrans Equipment Operator Signature: Date: documented in this encounter Plan of Treatment Upcoming Encounters Date Type Department Care Team (Late st Contact Info) Description 05/14/2025 8:00 AM EST Lab Patient Walk-In [facility] - [address] [place] [address] 05/14/2025 8:30 AM EST Appointment [facility] Regional Imaging [address] [place] [address] [place] [address] [place] [address] [address] [place] [address] 05/14/2025 10:00 AM EST Appointment [facility] - [address] [place] [address] Neptali Bergman MD [address] [place] [address] [address] [place] [address] 05/14/2025 2:15 PM EST Office Visit [facility] - [address] [place] [address] Neptali Bergman MD [address] [place] [address] [address] [place] [address] documented as of this encounter Visit Diagnoses Not on filedocumented in this encounter Care Teams Second Cook And Baker Relationship Specialty Start Date End Date Jonas Navas MD [address] [facility] [address] [place] [address] PCP - General Cardiothoracic Surgery 04/15/22 07/23/22 Marcell Uriostegui MD [address] [place] [address] PCP - General Adolescent Medicine 07/24/22 04/05/23 Heidi Rivers, ROMERO 2017 [facility] [address] [place] [address] PCP - General Nurse Practitioner 04/06/23 Neptali Bergman MD [address] [place] [address] [address] [place] [address] Hematology and Oncology 10/31/24 documented as of this encounter
--- OUTSIDE RECORDS SUMMARY | 2025-04-30 09:25 | XMS_ITS | Encounter Summary ---
Author Organization [employer] ([place], [place], [place], [place], [place]) Address [address] [place] [address] Care Team Providers Care Revenue Cycle Analyst Name Role Phone Jonas Navas MD Primary Care Provider [phone] Marcell Uriostegui MD Primary Care Provider + [phone] Heidi Rivers APRN Primary Care Provider + [phone] Neptali Bergman MD Unavailable [phone] Encounter Details Date Type Department Care Team (Late st Contact Info) Description 05/15/2020 Transcribed Document [facility] [place] [address] ProviderJennifer MD [address] [place] [address] Social History Tobacco Use Types Packs/Day Years Used Date Smoking Tobacco: Never Assessed Comments Unknown Sex and Gender Information Value Date Recorded Sex Assigned at Not on file Legal Sex Female 1:09 PM CDT Gender Identity Not on file Sexual Orientation Not on file documented as of this encounter Miscellaneous Notes * Cerner Conversion Note - Jennifer ProviderMD - 05/15/2020 10:48 AM DESIGN SUPERVISOR PAT Adult Entered On: 05/15/2020 10:51 EST Performed On: 05/15/2020 10:48 EST by Olvin Leach, Rn Vital Measurements Temperature Source : Temporal artery scanning Temperature Mode : Fahrenheit Temperature, Fahrenheit : 97.9 Deg F Clinical Temperature, C : 36.6 Deg C Pulse Method : Pulse Oximetry Peripheral Pulse Rate : 101 bpm (HI) Respiratory Rate : 18 Breaths/Min Blood Pressure Location : Arm, left upper Blood Pressure Source : Non-Invasive BP Device Blood Pressure Position : Sitting Systolic Blood Pressure : 131 mmHg Diastolic Blood Pressure : 76 mmHg Oxygen Saturation : 97 % Oxygen Therapy Mode : Room air Radha Rizvi RN - 05/20/2020 11:45 EST Pain Assessment Pain Assessment : Initial assessment Pain Scale Goal : 3 Radha Rizvi RN - 05/20/2020 11:45 EST Height and Weight, Clinical Dosing Height Source : Measured Height Entry Format : [employer] Height, Feet : 0 ft(Converted to: 0 cm, 0 Inch) Height, Inches : 61 Inch(Converted to: 5 ft 1 Inch, 154.94 cm) Clinical Height : 154.94 cm Weight Source : Standing scale Weight Entry Format : [place] Clinical Dosing Weight : 79.09 kg Weight, Pounds : 174 lb Body Surface Area (BSA) : 1.78 m2 Body Mass Index : 32.9 kg/m2 (HI) [place] Body Weight : 47 kg Radha Rizvi RN - 05/20/2020 11:45 EST Health Histories Smoking Status : Former smoker, quit more than 30 days ago Smokeless Tobacco Status : Never Implant/Device Type, Computer Systems Designer and Model : none Olvin Leach Rn - 05/15/2020 10:48 EST Social History (As Of: 05/20/2020 11:47:53 EST) Tobacco: Former smoker, quit more than 30 days ago Smoking Status. Never Smokeless Tobacco Status. Last Used: 07-24-2019. (Last Updated: 03/26/2020 10:10:57 EST by Heidi Zamora, Rn) Former smoker, quit more than 30 days ago Smoking Status. Never Smokeless Tobacco Status. None Smokeless Tobacco Use History. Last Used: quit in July of this year when I had my lung cancer surgery. . Second Hand Smoke Exposure: No. (Last Updated: 05/15/2020 10:48:03 EST by Olvin Leach, Rn) Alcohol: Alcohol Use History No. (Last [...] by STEWART WILD RN) Infectious Disease History Where are the test results? : In EMR Results Has the patient ever been tested for COVID-19? : Yes, Patient stated results Negative Cesario Arteaga Rn - 05/22/2020 10:08 EST Where was the COVID-19 Testing completed? : [facility] Date of COVID-19 test known? : Yes Date of COVID-19 Test : 05/20/2020 EST Does patient have symptoms of COVID-19? : No COVID19 Screening : No Experiencing Infectious Disease Symptoms : No symptoms Physical contact outside [place] in the last 30 days : No Infectious Disease History : Chicken pox/Shingles, Measles, Mumps, Pertussis (Whooping cough) Tuberculosis Symptoms : None Radha Rizvi RN - 05/20/2020 11:45 EST COVID19 PreProcedure Screening Has patient been isolated since the test : Yes Exposed to COVID19 symptoms since test? : No Cesario Arteaga Rn - 05/22/2020 10:08 EST Is this an Emergent or Add on Procedure? : No Date PreProcedure COVID-19 test known? : Yes Date of PreProcedure COVID-19 : 05/20/2020 EST Radha Rizvi RN - 05/20/2020 11:45 EST Anesthesia/Transfusion History Blood Transfusion Acceptable to Patient : Yes Cesario Arteaga Rn - 05/22/2020 10:08 EST Family History of Anesthesia Reaction : No prior transfusion(s) Transfusion History : Prior anesthesia without reaction Family History of Anesthesia Reaction : None Olvin Leach Rn - 05/15/2020 10:48 EST Functional Assessment Functional ADL Evaluation Index EBN Bathing : Independent (2) Dressing : Independent (2) Toileting : Independent (2) Transferring Bed or Chair : Independent (2) Continence : Independent (2) Feeding : Independent (2) Olvin Leach Rn - 05/15/2020 10:48 EST ADL Index Score : 12 Olvin Leach Rn - 05/15/2020 10:48 EST Advance Directive Copy Advance Directive Verified/on Chart : Yes Radha Rizvi RN - 05/20/2020 11:45 EST Patient has Advance Directive *Q : Yes, Advance Directive on file Advance Directive Type : Living will, Medical durable power of prosecuting attorney (proxy) Medical Durable Power of Petroleum Engineer Name : Yayo Olvin Lynn Rn - 05/15/2020 10:48 EST Spiritual/Cultural Needs Any Spiritual/Cultural Needs or Requests : Yes Spiritual/Cultural Needs Comment : 05/22/2020 Pentecostal Preference : Mormon ([employer]) Spiritual/Cultural Needs Comment : 05/22/2020 Olvin Leach Rn - 05/15/2020 10:48 EST [place] Suicide Severity Rating Scale (C-SSRS) CSSRS Past Month Wish to be : No CSSRS Past Month Suicidal Thoughts : No CSSRS Lifetime Suicide Behavior : No Suicide Severity Rating Score : 0 Suicide Severity Rating : No Additional Care Required at this time Olvin Leach Rn - 05/15/2020 10:48 EST Psychosocial History Currently in Unsafe Situation : No Olvin Leach Rn - 05/15/2020 10:48 EST General Info Preferred Name : Alejandrina Arrived From : Home Mode of Arrival on Unit : Ambulatory Legal Guardian : Spouse Legal Guardian : No Support 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/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 : 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 Support Person/Pt Rep Name : Ti Garcíason - spouse Support Person/Pt Rep Contact Information : [phone] Want Family/Rep/Phys Notified of Admit : No Olvin Leach Rn - 05/15/2020 10:48 EST Emergency Contact #1 : Ti Yeh Emergency Contact #1 ` Emergency Contact #1 Relationship : spouse` Emergency Contact #2 : none` Emergency Contact #2 Phone Number : none` Emergency Contact #2 Relationship : none` Radha Rizvi RN - 05/20/2020 11:45 EST Information Obtained From : Patient Primary Language : Salvadorean Communication Barrier : None Draft Roller Picker Needed : No Olvin Leach Rn - 05/15/2020 10:48 EST Quinten Scale Quinten Sensory Perception : No impairment Quinten Moisture : Rarely moist Quinten Activity : Walks occasionally Quinten Mobility : Slightly limited Quinten Nutrition : Adequate Quinten Friction and Shear : No apparent problem Quinten Score : 20 Olvin Leach Rn - 05/15/2020 10:48 EST Sleep Apnea Risk Assmt BiPAP/CPAP Ordered for Home Use : Yes Hx of Obstructive Sleep Apnea Diagnosis : Yes BiPAP/CPAP Used at Home : No Reason BiPAP/CPAP Not Used at Home : I'm claustrophobic and that thing drives me crazy. Age over 50 Years Old : Yes Gender Male : No Olvin Leach Rn - 05/15/2020 10:48 EST Electronically signed by [facility] Conversion Pension Manager Cerner at 09/10/2022 12:43 AM CDT documented in this encounter Plan of Treatment Upcoming Encounters Date Type Department Care Team (Late st Contact Info) Description 05/14/2025 8:00 AM EST Lab Patient Walk-In [facility] [address] [place] [address] 05/14/2025 8:30 AM EST Appointment [facility] [place] [facility] [place] [facility] [address] [facility] [address] [place] [address] Neptali Bergman MD [facility] [address] [place] [address] 05/14/2025 10:00 AM EST Appointment [facility] MRI - [facility] [address] [facility] [address] [place] [address] Neptali Bergman MD [address] [facility] [address] [place] [address] 05/14/2025 2:15 PM EST Office Visit [facility] [place] [address] [place] [address] Neptali Bergman MD [address] [facility] [address] [place] [address] documented as of this encounter Visit Diagnoses Not on filedocumented in this encounter Care Teams Revenue Cycle Analyst Relationship Specialty Start Date End Date Jonas Navas MD [address] [facility] [address] [place] [address] PCP - General Cardiothoracic Surgery 04/15/22 07/23/22 Marcell Uriostegui MD [address] [facility] [address] [place] [address] PCP - General Adolescent Medicine 07/24/22 04/05/23 Heidi Rivers, ROMERO [address] [facility] [address] [place] [address] PCP - General Nurse Practitioner 04/06/23 Neptali Bergman MD [address] [facility] [address] [place] [address] Hematology and Oncology 10/31/24 documented as of this encounter
--- OUTSIDE RECORDS SUMMARY | 2025-04-30 09:25 | XMS_ITS | Encounter Summary ---
Author Organization [employer] ([place], [place], [place], [place], [place]) Address [address] [place] [address] Care Team Providers Care Spot Welder Name Role Phone Jonas Navas MD Primary Care Provider [phone] Marcell Uriostegui MD Primary Care Provider + [phone] Heidi Rivers APRN Primary Care Provider + [phone] Neptali Bergman MD Unavailable [phone] Encounter Details Date Type Department Care Team (Late st Contact Info) Description 03/29/2020 Transcribed Document [facility] [place] [address] [place] [address] ProviderJennifer MD [address] [place] [address] Social History Tobacco Use Types Packs/Day Years Used Date Smoking Tobacco: Never Assessed Comments Unknown Sex and Gender Information Value Date Recorded Sex Assigned at Not on file Legal Sex Female 1:09 PM CDT Gender Identity Not on file Sexual Orientation Not on file documented as of this encounter Miscellaneous Notes * Cerner Conversion Note - Jennifer Arroyo MD - 03/29/2020 7:52 AM INSTRUMENTATION AND CONTROLS DESIGNER Patient Education Materials Follows: Adrenalectomy, Care After This sheet gives you [...] and water are not available, use hand mold design engineer. ? Change your dressing as told by [...] to take sponge baths. Medicines ??? Take sdng-kfp-kqeixbe and prescription medicines only as told by [...] 08/25/2011 Document Revised: 01/31/2019 Document Reviewed: 01/31/2019 [employer] Patient Education ? 2020 [employer]. Adrenalectomy Adrenal glands are organs that make [...] including vitamins, herbs, eye drops, creams, and woqj-ddl-xmkbyzq medicines. ??? Any problems you or family [...] hours before the procedure ? you may continue to drink clear liquids, such as water, clear fruit juice, black coffee, and plain tea. Eating and drinking restrictions Follow instructions from your health care provider about eating and drinking, which may include: ??? 8 hours before the procedure ? stop eating heavy meals or foods, such as meat, fried foods, or fatty foods. ??? 6 hours before the procedure ? stop eating light meals or foods, such as toast or cereal. ??? 6 hours before the procedure ? stop drinking milk or drinks that contain milk. ??? 2 hours before the procedure ? stop drinking clear liquids. Medicines Ask your [...] are cortisol, aldosterone, or adrenaline. ??? Taking skpu-ami-vvzbktn medicines, vitamins, herbs, and supplements. General instructions [...] your surgery. ? For laparoscopic adrenalectomy: ? 3?4 small incisions will be made in your [...] 01/31/2019 Document Reviewed: 01/31/2019 Elsevier Patient Education ? 2020 [employer]. Electronically signed by Kolby Catalan Conversion Human Resources Operations Manager Cerner at 09/10/2022 12:37 AM CDT documented in this encounter Plan of Treatment Upcoming Encounters Date Type Department Care Team (Late st Contact Info) Description 05/14/2025 8:00 AM EST Lab Patient Walk-In [facility] - [place] [address] [place] [address] 05/14/2025 8:30 AM EST [facility]ment [facility] [address] [facility] [address] [place] [address] Neptali Bergman MD [address] [place] [address] [address] [place] [address] 05/14/2025 10:00 AM EST Appointment [facility] - [facility] [address] [facility] [address] [place] [address] Neptali Bergman MD [address] [place] [address] [address] [place] [address] 05/14/2025 2:15 PM EST Office Visit [facility] - [place] [address] [place] [address] Neptali Bergman MD [address] [place] [address] [address] [place] [address] documented as of this encounter Visit Diagnoses Not on filedocumented in this encounter Care Teams Spot Welder Relationship Specialty Start Date End Date Jonas Navas MD [address] [facility] [address] [place] [id number] PCP - General Cardiothoracic Surgery 04/15/22 07/23/22 Marcell Uriostegui MD [address] [place] [address] [place] [address] PCP - General Adolescent Medicine 07/24/22 04/05/23 Heidi Rivers APRN [address] [facility] [address] [place] [address] PCP - General Nurse Practitioner 04/06/23 Neptali Bergman MD [address] [facility] [address] [place] [address] Hematology and Oncology 10/31/24 documented as of this encounter
--- OUTSIDE RECORDS SUMMARY | 2025-04-30 09:25 | XMS_ITS | Encounter Summary ---
Author Organization [employer] ([place], [place], [place], [place], [place]) Address [address] [place] [address] Care Team Providers Care Extractor Loader And Unloader Name Role Phone Jonas Navas MD Primary Care Provider [phone] Marcell Uriostegui MD Primary Care Provider + [phone] Heidi Rivers APRN Primary Care Provider + [phone] Neptali Bergman MD Unavailable [phone] Encounter Details Date Type Department Care Team (Late st Contact Info) Description 03/30/2020 Transcribed Document [facility] [place] [address] [place] [address] ProviderJennifer MD [address] [place] [address] Social History Tobacco Use Types Packs/Day Years Used Date Smoking Tobacco: Never Assessed Comments Unknown Sex and Gender Information Value Date Recorded Sex Assigned at Not on file Legal Sex Female 1:09 PM CDT Gender Identity Not on file Sexual Orientation Not on file documented as of this encounter Miscellaneous Notes * Cerner Conversion Note - Jennifer ProviderMD - 03/30/2020 11:51 AM EMAIL CAMPAIGN MANAGER Nursing Discharge Summary Entered On: 03/30/2020 11:55 EST Performed On: 03/30/2020 11:51 EST by Raheem Baird superintendent terminal Documentation Discharge Date/Time : 03/30/2020 12:15 EST Patient Disposition, General : Discharge Discharge To : Home with ambulatory/outpatient follow-up Mode Of Departure, General Discharge : Private vehicle Personal Belongings With Patient : Yes Prescriptions Given to Patient : Yes Number of Prescriptions Given : 2 Raheem Baird RN - 03/30/2020 11:51 EST Electronically signed by Hossein [facility] Conversion Rn Relief Charge Cerner at 09/10/2022 12:48 AM CDT documented in this encounter Plan of Treatment Upcoming Encounters Date Type Department Care Team (Late st Contact Info) Description 05/14/2025 8:00 AM EST Lab Patient Walk-In [facility] - [place] [address] [place] [address] 05/14/2025 8:30 AM EST Appointment [facility] CT - [facility] [address] [facility] [address] [place] [address] Neptali Bergman MD [address] [facility] [address] [place] [address] 05/14/2025 10:00 AM EST Appointment [facility] MRI - [facility] [address] [facility] [address] [place] [address] Neptali Bergman MD [address] [facility] [address] [place] [address] 05/14/2025 2:15 PM EST Office Visit [facility] [place] [address] [place] [address] Neptali Bergman MD [address] [facility] [address] [place] [address] documented as of this encounter Visit Diagnoses Not on filedocumented in this encounter Care Teams Extractor Loader And Unloader Relationship Specialty Start Date End Date Jonas Navas MD [address] [facility] [address] [place], [place] [id number] PCP - General Cardiothoracic Surgery 04/15/22 07/23/22 Marcell Uriostegui MD [address] [facility] [address] [place] [address] PCP - General Adolescent Medicine 07/24/22 04/05/23 Heidi Rivers APRN [address] [facility] [address] [place] [address] PCP - General Nurse Practitioner 04/06/23 Neptali Bergman MD [address] [facility] [address] [place] [address] Hematology and Oncology 10/31/24 documented as of this encounter
--- OUTSIDE RECORDS SUMMARY | 2025-04-30 09:25 | XMS_ITS | Clinical Summary ---
Author Organization [employer] ([place], [place], [place], [place], [place]) Address [address] [place] [address] Care Team Providers Care Visiting Professor Name Role Phone Heidi Rivers APRN Primary Care Provider [phone] Neptali Bergman MD Unavailable [phone] Allergies Active Allergy Reactions Criticality Noted Date Comments Umeclidinium-Vilanterol 02/03/2022 Clindamycin 02/03/2022 Diltiazem 02/03/2022 Pembrolizumab High 05/02/2024 Patient reports severe lung issues. Levofloxacin Nausea And Vomiting,Other (See Comments) 02/03/2022 Chest pain also Morphine 12/08/2022 Nadolol 02/03/2022 Also called Katie. Pt states it gives her chest pains Oxycodone-Acetaminophen 12/08/2022 Tiotropium-Olodaterol 02/03/2022 Sulfa (Sulfonamide Antibiotics) Low 08/07/2020 Other reaction(s): Unknown Medications atorvastatin (LIPITOR) 40 MG tablet atorvastatin 40 mg tablet Active lisinopril-hydroCH LOROthiazide (PRINZIDE,ZESTORET IC) 10-12.5 mg per tablet Take 1 tablet by mouth daily. Active promethazine-dextr omethorphan (PROMETHAZINE-DM) 6.25-15 mg/5 mL syrup promethazine-DM 6.25 mg-15 mg/5 mL oral syrup Active promethazine (PHENERGAN) 25 MG tablet as needed. Active ondansetron (ZOFRAN-ODT) 8 MG disintegrating tablet as needed . Active lisinopril-hydroCH LOROthiazide (PRINZIDE,ZESTORET IC) 20-25 mg per tablet lisinopril 20 mg-hydrochloroth iazide 25 mg tablet Active albuterol HFA (VENTOLIN HFA) 90 mcg/actuation inhaler albuterol sulfate HFA 90 mcg/actuation aerosol inhaler Active fluticasone propionate (FLONASE) 50 mcg/actuation nasal spray SMARTSIG:Both Nares 06/29/19 23 Active omeprazole (PriLOSEC) 20 MG capsule Take by mouth. 04/27/20 22 Active aspirin 325 MG tablet Take 1 tablet (325 mg total) by mouth daily. Active fluticasone/umecli din/vilanter (TRELEGY ELLIPTA INHL) Inhale 1 puff by mouth via inhaler daily. Active montelukast (SINGULAIR) 10 mg tablet SMARTSI.0 Tablet(s) By Mouth Daily 04/24/20 24 Active predniSONE (DELTASONE) 2.5 MG tabletIndications: Malignant neoplasm of upper lobe bronchus, left (HCC) Take 1 tablet (2.5 mg total) by mouth daily with breakfast Look-alike/Lupe nd-alike medication. 90 tablet 3 11/01/19 25 Active ALPRAZolam (XANAX) 0.5 MG tablet TAKE 1 TABLET BY MOUTH EVERY NIGHT NEEDED FOR ANXIETY 90 tablet 1 02/27/20 25 Active Active Problems Problem Noted Date Diagnosed Date Malignant neoplasm of upper lobe bronchus, left 02/03/2022 Cancer Staging:Clinical stage from 07/25/2019:Stage IA2(cT1b, cN0, cM0) - Unsigned Pathologic stage from 07/02/2020:Stage IV(pT0, pN0, pM1) - Unsigned Family History Medical History Relation Name Comments Melanoma Brother 1 35 Cerebral aneurysm Brother 2 55 Heart attack Father 41 No Known Problem Maternal Aunt No Known Problem Maternal Grandfather No Known Problem Maternal Grandmother No Known Problem Maternal Uncle Lung cancer Mother 80 No Known Problem Paternal Aunt No Known Problem Paternal Grandfather No Known Problem Paternal Grandmother No Known Problem Paternal Uncle No Known Problem Sister Relation Name Status Comments Brother 1 Brother 2 Father Maternal Aunt Maternal Grandfather Maternal Grandmother Maternal Uncle Mother Paternal Aunt Paternal Grandfather Paternal Grandmother Paternal Uncle Sister Social History Tobacco Use Types Packs/Day Years Used Date Smoking Tobacco: Every Day Cigarettes Smokeless Tobacco: Never Tobacco Cessation:Ready to Q uit: Not Asked; Counseling Given: Not Answered Alcohol Use Standard Drinks/Week Comments Never 0 (1 standard drink = 0.6 oz pur e alcohol) Family and Community Support Answer Archie e Recorded Help with Day to Day Activities Not on file 06/04/2023 Feeling Lonely or Isolated Not on file 06/04 Educational Attainment Answer Date Jeff rded Speak language other than Algerian at home Not on file 06/04/2023 Want help with school or training Not on file 06/04/2023 Substance Use Answer Date Recorded Used prescription meds for non-medical reasons N ot on file 06/04/2023 Used illegal drugs past 12 months Not on file 06/04/2023 Comments No Sex and Gender Information Value Date Recorded Sex Assigned at Not on file Legal Sex Female 1:09 PM CDT Gender Identity Not on file Sexual Orientation Not on file Last Filed Vital Signs Vital Sign Reading Time Taken Comments Blood Pressure 108/60 10/31/2024 2:31 PM EDT Pulse 92 10/31/2024 2:31 PM EDT Temperature 35.2 C (95.3 F) 10/31/2024 2:31 PM EDT Respiratory Rate 18 10/31/2024 2:31 PM EDT Oxygen Saturation 95% 10/31/2024 2:31 PM EDT Inhaled Oxygen Concentration - - Weight 65.9 kg (145 lb 3.2 oz) 10/31/2024 2:31 P M EDT Height 154.9 cm (5' 1 ) 10/31/2024 2:31 PM EDT Body Mass Index 27.44 10/31/2024 2:31 PM EDT Plan of Treatment Upcoming Encounters Date Type Department Care Team (Late st Contact Info) Description 05/14/2025 8:00 AM EST Lab Patient Walk-In [facility] - [place] [address] [place] [address] 05/14/2025 8:30 AM EST Appointment [facility] [address] [place] [address] Neptali Bergman MD [address] [facility] [address] [place] [address] 05/14/2025 10:00 AM EST Appointment [facility] - [address] [place] [address] Neptali Bergman MD [address] [facility] [address] [place] [address] 05/14/2025 2:15 PM EST Office Visit [facility] - [place] [address] [place] [address] Neptali Bergman MD [address] [facility] [address] [place] [address] Health Maintenance Due Date Last Done Comments Medicare Initial AWV G0438 CT Colonography 1955 Colonoscopy 1955 Colorectal Cancer Screening 1955 DXA SCAN 1955 FOBT/FIT 1955 Fit-DNA (Cologuard) 1955 Sigmoidoscopy 1955 Depression Screening (12+) 1967 Tobacco Cessation Counseling and Screening (12+) 1967 Hepatitis C Screening 12/03/1973 Breast Cancer Screening 1995 DTAP/TDAP/TD VACCINES (2 - Td or Tdap) 08/01/2006 Respiratory Syncytial Virus (RSV) Adult or (1 - Risk 60-74 years 1-dose series) 2015 Pneumococcal 50+ years (2 of 2 - PCV) 03/04/202204/2021 Falls Risk Screening 05/24/2024 COVID-19 VACCINE (3 - season) 01/22/202502/2021, 07/31/2020 Influenza Vaccine (#1) 2025 03/04/2021, 2019 Shingles Vaccine (Zoster) Completed 10/18/2019, 02/2019 Insurance [employer] MEDICARE PPO [employer] MEDICARE PPO Advance Directives For more information, please contact: [phone] Documents on File Type Date Recorded Patient Ball Mill Operator Expl anation Advance Directives and Livin g Will 12/08/2022 8:51 AM Care Teams Visiting Professor Relationship Specialty Start Date End Date Heidi Rivers, SPRING MACHINE OPERATOR [address] [place] [address] PCP - General Nurse Practitioner 04/06/23 Neptali Bergman MD [address] [facility] [address] [place] [address] Hematology and Oncology 10/31/24
--- OUTSIDE RECORDS SUMMARY | 2025-04-30 09:25 | XMS_ITS | Encounter Summary ---
Author Organization [employer] ([place], [place], [place], [place], [place]) Address [address] [place] [address] Care Team Providers Care Parachute Repairer Name Role Phone Jonas Navas MD Primary Care Provider [phone] Marcell Uriostegui MD Primary Care Provider + [phone] Heidi Rivers APRN Primary Care Provider + [phone] Neptali Bergman MD Unavailable [phone] Encounter Details Date Type Department Care Team (Late st Contact Info) Description 04/01/2020 Transcribed Document [facility] Family Medicine [facility] [place] [address] ProviderJennifer MD [address] [place] [address] Social History Tobacco Use Types Packs/Day Years Used Date Smoking Tobacco: Never Assessed Comments Unknown Sex and Gender Information Value Date Recorded Sex Assigned at Not on file Legal Sex Female 1:09 PM CDT Gender Identity Not on file Sexual Orientation Not on file documented as of this encounter Miscellaneous Notes * Cerner Conversion Note - Jennifer ProviderMD - 04/01/2020 1:25 PM HEAD TRIMMER UM Authorization Entered On: 04/01/2020 13:26 EST Performed On: 04/01/2020 13:25 EST by ROSA MARIA JONES RN Primary Insurance Authorization Authorization and Policy Numbers : Insurance 1 Health Plan: ANTHEM [employer] Policy Number: [id number] Authorization Number: Insurance Primary Name : [facility] Policy Number: [id number] Authorization Status-Primary : Denial - admission Reference Number-Primary : pend ref #[id number] Authorized Service Begin Date-Primary : 03/28/2020 EST Authorization Comments-Primary : Per VM from [facility] denied IP admission. Called MD office and left VM for Raymond inquiring if they had attempted IP auth and if Dr. Santamaria would complete a P2P. Awaiting callback. Emailed to [facility]. Historical Authorization Comments-Primary : Comment 1: Clinicals submitted via [employer] for IP approval (CICI DIAZ RN 03/29/2020 11:18) ROSA MARIA JONES RN - 04/01/2020 13:25 EST Electronically signed by Hossein [facility] Conversion Paintings Conservator Cerner at 09/10/2022 12:47 AM CDT documented in this encounter Plan of Treatment Upcoming Encounters Date Type Department Care Team (Late st Contact Info) Description 05/14/2025 8:00 AM EST Lab Patient Walk-In [facility] - [address] [place] [address] 05/14/2025 8:30 AM EST Appointment [facility] [address] [facility] [address] [place] [address] Neptali Bergman MD [facility] [address] [place] [address] 05/14/2025 10:00 AM EST Appointment [facility] MRI - [facility] [address] [facility] [address] [place] [address] Neptali Bergman MD [address] [place] [address] 05/14/2025 2:15 PM EST Office Visit [facility] - [address] [place] [address] Neptali Bergman MD [facility] [address] [place] [address] documented as of this encounter Visit Diagnoses Not on filedocumented in this encounter Care Teams Parachute Repairer Relationship Specialty Start Date End Date Jonas Navas MD [address] [facility] [address] [address] PCP - General Cardiothoracic Surgery 04/15/22 07/23/22 Marcell Uriostegui MD [address] [facility] [address] [place] [address] PCP - General Adolescent Medicine 07/24/22 04/05/23 Heidi Rivers, ROMERO [address] [facility] [address] [place] [address] PCP - General Nurse Practitioner 04/06/23 Neptali Bergman MD [address] [facility] [address] [place] [address] Hematology and Oncology 10/31/24 documented as of this encounter
--- OUTSIDE RECORDS SUMMARY | 2025-04-30 09:25 | XMS_ITS | Encounter Summary ---
Author Organization [employer] ([place], [place], [place], [place], [place]) Address [address] [place] [address] Care Team Providers Care Surgery Aide Name Role Phone Jonas Navas MD Primary Care Provider [phone] Marcell Uriostegui MD Primary Care Provider + [phone] Heidi Rivers APRN Primary Care Provider + [phone] Neptali Bergman MD Unavailable [phone] Encounter Details Date Type Department Care Team (Late st Contact Info) Description 03/29/2020 Transcribed Document [facility] Family [facility] [place] [address] ProviderJennifer MD [address] [place] [address] Social History Tobacco Use Types Packs/Day Years Used Date Smoking Tobacco: Never Assessed Comments Unknown Sex and Gender Information Value Date Recorded Sex Assigned at Not on file Legal Sex Female 1:09 PM CDT Gender Identity Not on file Sexual Orientation Not on file documented as of this encounter Miscellaneous Notes * Cerner Conversion Note - Jennifer ProviderMD - 03/29/2020 11:[address] JUDGE UM Authorization Entered On: 03/29/2020 11:30 EST Performed On: 03/29/2020 11:29 EST by CICI DIAZ RN Primary Insurance Authorization Authorization and Policy Numbers : Insurance 1 Health Plan: ANTHEM [employer] Policy Number: [id number] Authorization Number: Insurance Primary Name : [facility] Policy Number: [id number] Authorization Status-Primary : Awaiting callback Reference Number-Primary : pend ref #[id number] Authorized Service Begin Date-Primary : 03/28/2020 EST Historical Authorization Comments-Primary : Comment 1: Clinicals submitted via [facility] for IP approval (CICI DIAZ RN 03/29/2020 11:18) CICI DIAZ RN - 03/29/2020 11:29 EST Electronically signed by [facility] Conversion Reflesher Cerner at 09/10/2022 12:49 AM CDT documented in this encounter Plan of Treatment Upcoming Encounters Date Type Department Care Team (Late st Contact Info) Description 05/14/2025 8:00 AM EST Lab Patient Walk-In [place] [facility] - [address] [place] [address] 05/14/2025 8:30 AM EST Appointment Counts Include [facility] - [facility] [address] [facility] [address] [place] [address] Neptali Bergman MD [address] [place] [address] [address] [place] [address] 05/14/2025 10:00 AM EST Appointment [facility] MRI - [facility] [address] [facility] [address] [place] [address] Neptali Bergman MD [address] [place] [address] [address] [place] [address] 05/14/2025 2:15 PM EST Office Visit [facility] - [address] [place] [address] Neptali Bergman MD [address] [place] [address] [address] [place] [address] documented as of this encounter Visit Diagnoses Not on filedocumented in this encounter Care Teams Surgery Aide Relationship Specialty Start Date End Date Jonas Navas MD [address] [facility] [address] [place] [address] PCP - General Cardiothoracic Surgery 04/15/22 07/23/22 Marcell Uriostegui MD [facility] [facility] [address] [place] [address] PCP - General Adolescent Medicine 07/24/22 04/05/23 Heidi Rivers, ORMERO [address] [facility] [address] [place] [address] PCP - General Nurse Practitioner 04/06/23 Neptali Bergman MD [address] [facility] [address] [place] [address] Hematology and Oncology 10/31/24 documented as of this encounter
--- OUTSIDE RECORDS SUMMARY | 2025-04-30 09:25 | XMS_ITS | Encounter Summary ---
Author Organization [employer] ([place], [place], [place], [place], [place]) Address [address] [place] [address] Care Team Providers Care Yarn Hauler Name Role Phone Jonas Navas MD Primary Care Provider [phone] Marcell Uriostegui MD Primary Care Provider + [phone] Heidi Rivers APRN Primary Care Provider + [phone] Neptali Bergman MD Unavailable [phone] Encounter Details Date Type Department Care Team (Late st Contact Info) Description 03/29/2020 Transcribed Document [facility] Family Medicine [address] [place] [address] ProviderJennifer MD [address] [place] [address] Social History Tobacco Use Types Packs/Day Years Used Date Smoking Tobacco: Never Assessed Comments Unknown Sex and Gender Information Value Date Recorded Sex Assigned at Not on file Legal Sex Female 1:09 PM CDT Gender Identity Not on file Sexual Orientation Not on file documented as of this encounter Miscellaneous Notes * Cerner Conversion Note - Jennifer ProviderMD - 03/29/2020 11:59 AM MALT [employer] SALES SUPERVISOR On Going Discharge Planning Entered On: 03/29/2020 12:02 EST Performed On: 03/29/2020 11:59 EST by LORE TRONCOSO, ASHLEY-Sculpture ConservatorManager Cable Progress Note Discharge Arrangements : Patient Post-Acute Information Patient Name: ALEJANDRINA YEH Gender: Female : 55 Age: 64 Years No Post-Acute Placement(s) Listed No Post-Acute Service(s) Listed No Curaspan Referral(s) Listed Is the Patient Meeting Medical Necessity : Yes LORE TRONCOSO, RN-Sculpture Conservator - 03/29/2020 11:59 EST Narrative Progress Note Narrative Progress Note : rrs high cm spoke to patient . patient is independent and denied need for hh and dme. family will transport LORE TRONCOSO RN-Sculpture Conservator - 03/29/2020 11:59 EST documented in this encounter Plan of Treatment Upcoming Encounters Date Type Department Care Team (Late st Contact Info) Description 05/14/2025 8:00 AM EST Lab Patient Walk-In [place] [facility] - [address] [place] [address] 05/14/2025 8:30 AM EST Appointment [facility] [address] [facility] [address] [place] [address] Neptali Bergman MD [address] [place] [address] [address] [place] [address] 05/14/2025 10:00 AM EST Appointment [facility] - [facility] [address] [facility] [address] [place] [address] Neptali Bergman MD [address] [place] [address] [address] [place] [address] 05/14/2025 2:15 PM EST Office Visit [facility] - [address] [place] [address] Neptali Bergman MD [address] [place] [address] [address] [place] [address] documented as of this encounter Visit Diagnoses Not on filedocumented in this encounter Care Teams Yarn Hauler Relationship Specialty Start Date End Date Jonas Navas MD [address] [facility] [address] [place] [address] PCP - General Cardiothoracic Surgery 04/15/22 07/23/22 Marcell Uriostegui MD [address] [facility] [address] [place] [address] PCP - General Adolescent Medicine 07/24/22 04/05/23 Heidi Rivers, WHEELCHAIR VAN DRIVER [address] [place] [address] PCP - General Nurse Practitioner 04/06/23 Neptali Bergman MD [address] [facility] [address] [place] [address] Hematology and Oncology 10/31/24 documented as of this encounter
--- OUTSIDE RECORDS SUMMARY | 2025-04-30 09:25 | XMS_ITS | Encounter Summary ---
Author Organization [employer] ([place], [place], [place], [place], [place]) Address [address] [place] [address] Care Team Providers Care Website Admin Name Role Phone Jonas Navas MD Primary Care Provider [phone] Marcell Uriostegui MD Primary Care Provider + [phone] Heidi Rivers APRN Primary Care Provider + [phone] Neptali Bergman MD Unavailable [phone] Encounter Details Date Type Department Care Team (Late st Contact Info) Description 03/29/2020 Transcribed Document [facility] [place] [facility] [place] [address] ProviderJennifer MD [address] [place] [address] Social History Tobacco Use Types Packs/Day Years Used Date Smoking Tobacco: Never Assessed Comments Unknown Sex and Gender Information Value Date Recorded Sex Assigned at Not on file Legal Sex Female 1:09 PM CDT Gender Identity Not on file Sexual Orientation Not on file documented as of this encounter Miscellaneous Notes * Cerner Conversion Note - Jennifer ProviderMD - 03/29/2020 11:18 AM WOOD PATTERN MAKER UM Authorization Entered On: 03/29/2020 11:23 EST Performed On: 03/29/2020 11:18 EST by CICI DIAZ RN Primary Insurance Authorization Authorization and Policy Numbers : Insurance 1 Health Plan: ANTHEM [employer] Policy Number: [id number] Authorization Number: Insurance [facility] Policy Number: [id number] Authorization Status-Primary : Awaiting callback Authorized Service Begin Date-Primary : 03/28/2020 EST Authorization Comments-Primary : Clinicals submitted via [employer] for IP approval Historical Authorization Comments-Primary : No Authorization Comments Found CICI DIAZ, ASHLEY - 03/29/2020 11:18 EST Electronically signed by Hossein [facility] Conversion Hyster Machine Operator Cerner at 09/10/2022 12:42 AM CDT documented in this encounter Plan of Treatment Upcoming Encounters Date Type Department Care Team (Late st Contact Info) Description 05/14/2025 8:00 AM EST Lab Patient Walk-In [place] [facility] - [address] [place] [address] 05/14/2025 8:30 AM EST Appointment [facility] - [address] [facility] [address] [place] [address] Neptali Bergman MD [address] [place] [address] [address] [place] [address] 05/14/2025 10:00 AM EST Appointment [facility] MRI - [address] [facility] [address] [place] [address] Neptali Bergman MD [address] [place] [address] [address] [place] [address] 05/14/2025 2:15 PM EST Office Visit [place] [facility] - [address] [place] [address] Neptali Bergman MD [address] [place] [address] [address] [place] [address] documented as of this encounter Visit Diagnoses Not on filedocumented in this encounter Care Teams Website Admin Relationship Specialty Start Date End Date Jonas Navas MD [address] [facility] [address] [place] [id number] PCP - General Cardiothoracic Surgery 04/15/22 07/23/22 Marcell Uriostegui MD [address] [place] [address] [place] [address] PCP - General Adolescent Medicine 07/24/22 04/05/23 Heidi Rivers, RING STAMPER [address] [place] [address] PCP - General Nurse Practitioner 04/06/23 Neptali Bergman MD [address] [facility] [address] [place] [address] Hematology and Oncology 10/31/24 documented as of this encounter
--- OUTSIDE RECORDS SUMMARY | 2025-04-30 09:25 | XMS_ITS | Encounter Summary ---
Author Organization [employer] ([place], [place], [place], [place], [place]) Address [address] [place] [address] Care Team Providers Care Park Maintenance Technician Name Role Phone Jonas Navas MD Primary Care Provider [phone] Marcell Uriostegui MD Primary Care Provider + [phone] Heidi Rivers APRN Primary Care Provider + [phone] Neptali Bergman MD Unavailable [phone] Encounter Details Date Type Department Care Team (Late st Contact Info) Description 03/30/2020 Transcribed Document [facility] Family Medicine [address] [place] [address] ProviderJennifer MD [address] [place] [address] Social History Tobacco Use Types Packs/Day Years Used Date Smoking Tobacco: Never Assessed Comments Unknown Sex and Gender Information Value Date Recorded Sex Assigned at Not on file Legal Sex Female 1:09 PM CDT Gender Identity Not on file Sexual Orientation Not on file documented as of this encounter Miscellaneous Notes * Cerner Conversion Note - Jennifer ProviderMD - 03/30/2020 2:00 AM DECKHAND SHRIMP BOAT Pharmacy Coordinator Details Entered On: 03/30/2020 3:22 EST Performed On: 03/30/2020 2:00 EST by LINDSAY WHITE LPN Order Details Transport Mode Order Detail : Stretcher/Gurney Order Detail : 0 IV Order Detail : 1 Oxygen Order Detail : 0 Nurse Collect Order Detail : 0 Lift/Transfer : Independent Central Line Order Detail : No Room Service : Appropriate Arterial Line : No Patient Needs Meds Crushed/Liquid : No LINDSAY WHITE, PRINT PRESS OPERATOR - 03/30/2020 3:22 EST Electronically signed by Hossein [facility] Conversion Contract Analyst Cerner at 09/10/2022 12:36 AM CDT documented in this encounter Plan of Treatment Upcoming Encounters Date Type Department Care Team (Late st Contact Info) Description 05/14/2025 8:00 AM EST Lab Patient Walk-In [place] [facility] - [address] [place] [address] 05/14/2025 8:30 AM EST Appointment [facility] CT - [facility] [address] [facility] [address] [place] [address] Neptali Bergman MD [address] [facility] [address] [place] [address] 05/14/2025 10:00 AM EST Appointment [facility] MRI - [facility] [address] [facility] [address] [place] [address] Neptali Bergman MD [address] [facility] [address] [place] [address] 05/14/2025 2:15 PM EST Office Visit [place] [facility] - [address] [place] [address] Neptali Bergman MD [address] [place] [address] [place] [address] documented as of this encounter Visit Diagnoses Not on filedocumented in this encounter Care Teams Park Maintenance Technician Relationship Specialty Start Date End Date Jonas Navas MD [address] [facility] [address] [place], [place] [id number] PCP - General Cardiothoracic Surgery 04/15/22 07/23/22 Marcell Uriostegui MD 12[address] [facility] [address] [place] [address] PCP - General Adolescent Medicine 07/24/22 04/05/23 Heidi Rivers [address]N [address] [facility] [address] [place] [address] PCP - General Nurse Practitioner 04/06/23 Neptali Bergman MD [address] [facility] [address] [place] [address] Hematology and Oncology 10/31/24 documented as of this encounter
--- OUTSIDE RECORDS SUMMARY | 2025-04-30 09:26 | XMS_ITS | Encounter Summary ---
Author Organization [employer] ([place], [place], [place], [place], [place]) Address [address] [place] [address] Care Team Providers Care Hot Box Spotter Name Role Phone Jonas Navas MD Primary Care Provider [phone] Marcell Uriostegui MD Primary Care Provider + [phone] Heidi Rivers APRN Primary Care Provider + [phone] Neptali Bergman MD Unavailable [phone] Encounter Details Date Type Department Care Team (Late st Contact Info) Description 05/22/2020 Transcribed Document [facility] Family Medicine [address] [place] [address] Provider, MD Jennifer [address] [place] [address] Social History Tobacco Use Types Packs/Day Years Used Date Smoking Tobacco: Never Assessed Comments Unknown Sex and Gender Information Value Date Recorded Sex Assigned at Not on file Legal Sex Female 1:09 PM CDT Gender Identity Not on file Sexual Orientation Not on file documented as of this encounter Miscellaneous Notes * Cerner Conversion Note - Jennifer ProviderMD - 05/22/2020 1:59 PM MODEL TECHNICIAN [facility] Main OR IntraOp Summary Primary Physician: HEIDY GAYTAN MD-SNU Finalized Date/Time: 05/23/20 12:10:35 Pt. Name: ALEJANDRINA YEH /Sex: 1955 Female Med Rec #: [id number] Physician: HEIDY GAYTAN MD-SNU Financial #: [id number] Pt. Type: I Room/Bed: [facility] Admit/Disch: 05/22/20 15:58:00 - Institution: [facility] IntraOp Case Attendance Entry 1 Entry 2 Entry 3 Case Attendee HEIDY GAYTAN Byrd, Charlie D, RN Azul Daigle Rn MD-SNU Role Performed Surgeon/Proceduralist, Chrome Worker, First Chrome Worker, Second First Time In 05/22/20 13:27:00 05/22/20 13:27:00 05/22/20 13:27:00 Time Out 05/22/20 15:34:00 05/22/20 15:15:00 05/22/20 15:00:00 Procedure MIS Posterior Fusion CT MIS Posterior Fusion CT MIS Posterior Fusion CT Guided Guided Guided Other Attendee Superficial Wound Closed By: Last Modified By: Kiah Lima RN Hinton, Kisha, Kiah Kinsey RN 05/22/20 15:34:23 05/22/20 15:34:23 05/22/20 15:34:23 Entry 4 Entry 5 Entry 6 Case Attendee SHARON BENITEZ, FLORENCE CHAPA CASSIE, APRN TECH Role Performed Scrub, First Physician assistant professor of sociology COOK MESS/Nurse Hazmat Tanker Driver Time In 05/22/20 13:27:00 05/22/20 13:27:00 05/22/20 13:27:00 Time Out 05/22/20 15:34:00 05/22/20 15:34:00 05/22/20 15:34:00 Procedure MIS Posterior Fusion CT MIS Posterior Fusion CT MIS Posterior Fusion CT Guided Guided Guided Other Attendee Superficial Wound Closed By: Last Modified By: Kiah Lima RN Hinton, Kisha, Kiah Kinsey RN 05/22/20 15:34:23 05/22/20 15:34:23 05/22/20 15:34:23 Entry 7 Entry 8 Entry 9 Case Attendee HAILEY GRACIA MD-ANS SHELTON, CLARA S OTHER, ATTENDEE #1 Role Performed Anesthesiologist of Plant Utilities Engineer Vendor Record Time In 05/22/20 13:27:00 05/22/20 13:27:00 05/22/20 13:27:00 Time Out 05/22/20 15:34:00 05/22/20 15:34:00 05/22/20 15:34:00 Procedure MIS Posterior Fusion CT MIS Posterior Fusion CT MIS Posterior Fusion CT Guided Guided Guided Other Attendee MATEO MARISCAL Superficial Wound Closed By: Last Modified By: Kiah Lima RN Hinton, Kisha, RN Hinton, Kisha, RN 05/22/20 15:34:23 05/22/20 15:34:23 05/22/20 15:34:23 Entry 10 Case Attendee Kiah Lima RN Role Performed Chrome Worker, Third Time In 05/22/20 14:00:00 Time Out 05/22/20 15:34:00 Procedure MIS Posterior Fusion CT Guided Other Attendee Superficial Wound Closed By: Last Modified By: Kiah Lima RN 05/22/20 15:34:23 [facility] IntraOp Case Attendance Audit 05/22/20 15:34:23 Hand Engraver: [email or web address] Modifier: [email or web address] 1 <+> Time Out 1 <*> Procedure MIS Posterior Fusion CT Guided 2 <*> Procedure MIS Posterior Fusion CT Guided 3 <*> Procedure MIS Posterior Fusion CT Guided 4 <+> Time Out 4 <*> Procedure MIS Posterior Fusion CT Guided 5 <+> Time Out 5 <*> Procedure MIS Posterior Fusion CT Guided 6 <+> Time Out 6 <*> Procedure MIS Posterior Fusion CT Guided 7 <+> Time Out 7 <*> Procedure MIS Posterior Fusion CT Guided 8 <+> Time Out 8 <*> Procedure MIS Posterior Fusion CT Guided 9 <+> Time Out 9 <*> Procedure MIS Posterior Fusion CT Guided 10 <+> Time Out 10 <*> Procedure MIS Posterior Fusion CT Guided 05/22/20 15:22:13 Hand Engraver: [email or web address] Modifier: [email or web address] 2 <+> Time Out 2 <*> Procedure MIS Posterior Fusion CT Guided 3 <+> Time Out 3 <*> Procedure MIS Posterior Fusion CT Guided 10 <*> Procedure MIS Posterior Fusion CT Guided 05/22/20 14:51:48 Hand Engraver: [email or web address] Modifier: [email or web address] 9 <*> Procedure MIS Posterior Fusion CT Guided 9 <*> Other Attendee OMER KENYON 05/22/20 14:19:12 Hand Engraver: [email or web address] Modifier: [email or web address] 8 <*> Case Attendee Mag Zamora, Diagnostic Automobile Body Repairer 8 <*> Procedure MIS Posterior Fusion CT Guided 05/22/20 14:02:07 Hand Engraver: [id number] Modifier: [email or web address] <+> 10 Case Attendee <+> 10 Role Performed <+> 10 Time In <+> 10 Procedure 05/22/20 13:27:51 Hand Engraver: [id number] Modifier: [id number] <+> Time In 1 <*> Procedure MIS Posterior Fusion CT Guided 2 <+> Time In 2 <*> Procedure MIS Posterior Fusion CT Guided 3 <+> Time In 3 <*> Procedure MIS Posterior Fusion CT Guided 4 <+> Time In 4 <*> Procedure MIS Posterior Fusion CT Guided 5 <+> Time In 5 <*> Procedure MIS Posterior Fusion CT Guided 6 <+> Time In 6 <*> Procedure MIS Posterior Fusion CT Guided 7 <+> Time In 7 <*> Procedure MIS Posterior Fusion CT Guided 8 <+> Time In 8 <*> Procedure MIS Posterior Fusion CT Guided 9 <+> Time In 9 <*> Procedure MIS Posterior Fusion CT Guided [facility] IntraOp Case Times Entry 1 Patient In Room Time 05/22/20 13:27:00 Out Room Time 05/22/20 15:34:00 Anesthesia Start Time 05/22/20 13:27:00 Stop Time 05/22/20 15:34:00 Surgery / Procedure Times Start Time 05/22/20 13:59:00 Stop Time 05/22/20 15:28:00 Last Modified By: Kiah Lima RN 05/22/20 15:34:16 [facility] IntraOp Case Times Audit 05/22/20 15:34:16 Hand Engraver: [email or web address] Modifier: STANTON <+> 1 Out Room Time <+> 1 Stop Time 05/22/20 15:26:27 Hand Engraver: [email or web address] Modifier: STANTON <+> 1 Stop Time 05/22/20 13:59:15 Hand Engraver: [id number] Modifier: CHAPARRO <+> 1 Start Time [facility] IntraOp Cautery Entry 1 ESU Identification Cautery Type Monopolar ESU ID Number [id number] ID Type Hospital Number Cautery Settings Cut Setting 50 Coag Setting 50 ESU Grounding Pad Ground Pad Type Adult Grounding Pad Site Right thigh Grounding Pad Navid Anand RN Applied By Grounding Pad Site Warm, dry and intact Skin Condition Before Cautery Grounding Pad Site Warm, dry and intact Skin Condition After Cautery Last Modified By: Navid Anand RN 05/22/20 14:06:37 [facility] IntraOp Communication Entry 1 Communication To Family/Significant other Comment START Communication By Kiah Lima RN Date and Time 05/22/20 14:01:00 Last Modified By: Navid Anand RN 05/22/20 14:02:14 [facility] IntraOp Communication Audit 05/22/20 14:02:14 Hand Engraver: [email or web address] Modifier: [email or web address] <+> 1 Communication By [facility] IntraOp Counts Verification Entry 1 Procedure MIS Posterior Fusion CT Guided Count Info Count Type Sponge, Sharps, Miscellaneous Counts Verification Baseline/pre-procedure Sequence Count Results Not Applicable Counts Performed By Count Performed By SHARON BENITEZ SCRUB (Scrub) TECH Count Performed By Azul Daigle Rn (RN) Last Modified By: Azul Daigle Rn 05/22/20 13:28:28 [facility] IntraOp Counts Final Entry 1 Procedure MIS Posterior Fusion CT Guided Final Count Info Count Type Sponge, Sharps, Miscellaneous Counts Verification Skin Closure/end of Sequence procedure Count Results Correct, surgeon notified Counts Performed By Count Performed By SHARON BENITEZ SCRUB (Scrub) TECH Count Performed By Navid Anand, RN (RN) Last Modified By: Navid Anand RN 05/22/20 15:04:34 [facility] IntraOp Departure from OR Entry 1 Integumentary Assessment Integumentary WDL Assessment WDL Transfer/Handoff Transfer to PACU Phase I Handoff Method Bedside/Face to face, Phone call Post-op Transport Stretcher/Wil Via Patient Transport FLORENCE SHEPHERD, Accompanied by JENNIE ABERNATHY APRN Last Modified By: Navid Anand RN 05/22/20 14:19:34 [facility] IntraOp Dressing and Packing Entry 1 Type Dressing Location OP SITE Wound Dressing Item Occlusive dressing, Other Applied By FLORENCE SHEPHERD Last Modified By: Navid Anand RN 05/22/20 14:50:42 [facility] IntraOp Fire Risk Assessment Entry 1 Fire Info Surgical Site or 0- No Incision Above the Xyphoid Open O2 Source 0- No (Mask or Cannula) Available Ignition 1- Yes (ESU, Laser, Light Source) Fire Risk 1 Assessment Score Fire Score Fire Risk Yes Assessment Complete Fire Risk Navid Anand RN Assessment Verified By Fire Risk 05/22/20 13:26:00 Assessment Verified Date/Time Fire Risk Standard Fire Yes Safety Precautions Followed Last Modified By: Azul Daigle Rn 05/22/20 13:28:54 [facility] IntraOp Fire Risk Assessment Audit 05/22/20 13:28:54 Hand Engraver: [id number] Modifier: [id number] <+> 1 Fire Risk Assessment Complete <+> 1 Fire Risk Assessment Verified By <+> 1 Fire Risk Assessment Verified Date/Time <+> 1 Standard Fire Safety Precautions Followed [facility] Intra General Case Car Detailer 1 Case Information OR OR 09 [facility] Case Level 1 Room Verified Yes Wound Class I - Clean Specialty SN Neurosurgery Anesthesia Type General ASA Class 3 Diagnosis Preop Diagnosis LUMBAR SPONDYLOLISTHESIS Postop Same As Preop No Postop Diagnosis SEE MD POST OP NOTE Last Modified By: Azul Daigle Rn 05/22/20 13:32:05 [facility] IntraOp General Case Data Audit 05/22/20 13:32:05 Hand Engraver: [id number] Modifier: [id number] <+> 1 ASA Class [facility] IntraOp Implant Log Entry 1 Entry 2 Entry 3 Type Implant (Synthetic) Implant (Synthetic) Implant (Synthetic) Implant Log Implant Type Other Hardware Hardware Tissue Implant Type Implant BONE VIVIGEN FORMABLE CONCORDE BUL YAO MIS ELENI PLY SCRW SET Identification CELL [id number] Description Implant Quantity 1 1 4 Implant Site OPERATIVE SITE L5-S1 OP SITE OP SITE Implant Identification Model Number Implant ID [id number] Identification Serial Number Implant Identification Lot Number Implant Lifenet:Lifenet J&J:Depuy:Depuy Spine J&J:Depuy:Depuy Spine Identification Transplant Srv Bevel Mill Operator Name: Implant [id number] Identification Catalog Number Implant Size Implant Has an Yes Expiration Date Implant Expiration 03/08/21 Date Wasted Radioactive Material Time Implanted Tissue Implant Continue for Tissue Implant Documentation Tissue Identification Number Graft Prep Per Bevel Mill Operator Instructions: Tissue Preparation Method: Reconstitution Solution: Reconstitution Solution Lot Number Reconstitution Solution Expiration Date: Thawing Solution Thawing Solution Lot Number Thawing Solution Expiration Date Preparation Materials, Other Preparation Materials, Other Lot Number Preparation Materials, Other Expiration Date Tissue Prepared/Processed By Bevel Mill Operator Paperwork Completed Implant Type Comment Last Modified By: Navid Anadn RN Byrd, Charlie D, RN Byrd, Charlie D, RN 05/22/20 14:09:38 05/22/20 14:42:22 05/22/20 14:42:22 Entry 4 Entry 5 Type Implant (Synthetic) Implant (Synthetic) Implant Log Implant Type Hardware Hardware Tissue Implant Type Implant PRM-SCREW 6X45MM VIPER NATTY SPINE VIPER Identification PRIM POLYAX EXTEND TAB [id number] Description FEN DAVID TI F/[id number] Implant Quantity 4 2 Implant Site OP SITE OP SITE Implant Identification Model Number Implant Identification Serial Number Implant Identification Lot Number Implant DEPUY SPINE J&J:Depuy:Depuy Spine Identification Bevel Mill Operator Name: Implant [id number] Identification Catalog Number Implant Size Implant Has an Expiration Date Implant Expiration Date Wasted Radioactive Material Time Implanted Tissue Implant Continue for Tissue Implant Documentation Tissue Identification Number Graft Prep Per Bevel Mill Operator Instructions: Tissue Preparation Method: Reconstitution Solution: Reconstitution Solution Lot Number Reconstitution Solution Expiration Date: Thawing Solution Thawing Solution Lot Number Thawing Solution Expiration Date Preparation Materials, Other Preparation Materials, Other Lot Number Preparation Materials, Other Expiration Date Tissue Prepared/Processed By Bevel Mill Operator Paperwork Completed Implant Type Comment Last Modified By: Navid Anand RN Byrd, Charlie D, RN 05/22/20 14:42:22 05/22/20 14:51:22 [facility] IntraOp Implant Log Audit 05/22/20 14:51:22 Hand Engraver: [email or web address] Modifier: CHAPARRO <+> 5 Implant Identification Description <+> 5 Implant Identification Bevel Mill Operator Name: <+> 5 Implant Site <+> 5 Implant Quantity <+> 5 Implant Identification Catalog Number <+> 5 Implant Type <+> 5 Type 05/22/20 14:42:22 Hand Engraver: CHAPARRO Modifier: CHAPARRO <+> 2 Implant Identification Description <+> 2 Implant Identification Bevel Mill Operator Name: <+> 2 Implant Site <+> 2 Implant Quantity <+> 2 Implant Identification Catalog Number <+> 2 Implant Type <+> 2 Type <+> 3 Implant Identification Description <+> 3 Implant Identification Bevel Mill Operator Name: <+> 3 Implant Site <+> 3 Implant Quantity <+> 3 Implant Identification Catalog Number <+> 3 Implant Type <+> 3 Type <+> 4 Implant Identification Description <+> 4 Implant Identification Bevel Mill Operator Name: <+> 4 Implant Site <+> 4 Implant Quantity <+> 4 Implant Identification Catalog Number <+> 4 Implant Type <+> 4 Type [facility] IntraOp Intraoperative Assessment Entry 1 Handoff Method Online nursing summary Valid History / Yes Physical in Chart Preoperative Yes Checklist Reviewed/Evaluated Allergies Reviewed Yes Patient is Latex No Sensitive Isolation Not applicable Precautions Noted Level of WDL Consciousness (WDL = Alert, Oriented to Person, Place, and Time) Skin Assessment No Verified Present Upon IVs Arrival to OR Last Modified By: Azul Daigle Rn 05/22/20 13:33:15 [facility] IntraOp Intraoperative Equipment Entry 1 Type Equipment Equipment Equipment Pastora Suction System ID Number [id number] Setting 200 MM HG Intraop Monitoring Electrocardiogram Five lead placement (ECG) Electrode Placement Blood Pressure Non-Invasive BP Device Source Blood Pressure Arm, right upper Location Pulse Oximeter Hand, left Probe Site Antiembolic Devices Antiembolic Devices Sequential compression device, knee high Antiembolic Device Bilateral Location Antiembolic Device [id number] ID Number Scopes Photo/Video Documentation Photo No Video No Last Modified By: Azul Daigle Rn 05/22/20 13:35:25 [facility] IntraOp Medication Admin Entry 1 Entry 2 Entry 3 Medication/Irrigant Bacitracin 50,00units lidocaine 1% w/ SPNG SURGFOAM powder vial epinephrine 1:100,000 [id number] 30ml vial - [id number] Combo Med List Time Administered Route of ADDED TO NS IRRIGATION LOCAL TOPICAL Administration Dose Dose 67906 10 1 Unit of Measure units ml pkt Volume Administered By LUKAS, HEIDY HAJA, LUKASHEIDY TUTT, MATTHEW PAIGE, MD-SNU MD-SNU MD-SNU Procedure Irrigation Irrigant Volume In Irrigant Volume Out Last Modified By: Navid Anand RN Byrd, Charlie D, RN Byrd, Charlie D, RN 05/22/20 14:18:31 05/22/20 14:18:31 05/22/20 14:18:31 Entry 4 Medication/Irrigant thrombin 5000units topical powder - [id number] Combo Med List Time Administered Route of TOPICAL Administration Dose Dose 5000 Unit of Measure units Volume Administered By HEIDY GAYTAN MD-SNU Procedure Irrigation Irrigant Volume In Irrigant Volume Out Last Modified By: Navid Anand RN 05/22/20 14:18:31 General Comments: LUKAS LOCAL COMBO KENALOG 40MG, TORADOL 15MG, MARCAINE 0.25% PLAIN 30ML [facility] IntraOp Patient Positioning Entry 1 Procedure MIS Posterior Fusion CT Guided Body Position Prone Left Arm Position Secured on padded arm board Right Arm Position Secured on padded arm board Left Leg Position Uncrossed, parallel Right Leg Position Uncrossed, parallel Feet Uncrossed Yes Pressure Points Yes Checked Positioning Devices Pillows, Pad, Arm, Pad, Elbow, Safety Strap, Thighs Positioned By HEIDY GAYTAN MD-SNU, Navid Anand, ASHLEY, Azul Daigle Rn, EMMANUEL, SHARON, BOX NAILER, MICHELA, JENNIE, ROMERO Position Verified Positioning Yes Verified by Anesthesia Positioning Yes Verified by Surgeon Last Modified By: Navid Anand RN 05/22/20 14:04:12 [facility] IntraOp Sign In Entry 1 Patient, Site, Yes Procedure Identified Surgical Consent Yes Confirmed Relevant Surgical Yes Documents Available Surgical Site N/A Marked by person performing procedure Anesthesia Machine Yes Check Completed Medication Checks Yes Completed Allergies Yes Airway Difficult No Airway/Aspiration Risk Difficult Yes Airway/Aspiration Intervention Equipment Available Blood Loss Risk Yes Blood Loss Yes Intervention Equipment Prepared and Ready Blood Identifiers Not applicable Verified Per Policy Hypothermia Risk Yes Warming Measures Yes Taken Last Modified By: Azul Daigle Rn 05/22/20 13:36:02 [facility] IntraOp Sign Out Entry 1 RN Confirmation Surgical Yes Procedure(s) Identified Instrument, Sponge Yes and Sharps Counts Correct/Documented Equipment Problems Yes Documented Specimen Labeled N/A Correctly Urinary Catheter N/A Documented in IView Ge Patient Yes Recovery Concerns Reviewed with Anesthesia Provider, Surgeon and RN Ge Patient Yes Management Concerns Reviewed with Anesthesia Provider, Surgeon and RN Safety Checklist Yes Elements Complete? RN Sign Out Navid Anand, RN Signature RN Sign Out 05/22/20 15:34:00 Signature Date/Time Plan of Care Outcome - [...] of Care Outcome - Xray/Images OUTCOME STATEMENT: Goal met Absence of observable signs or symptoms of radiation injury Plan of Care Outcome - Counts OUTCOME STATEMENT: Goal met Absence of signs and symptoms of injury related to extraneous objects Last Modified By: Kiah Lima RN 05/22/20 15:34:20 [facility] IntraOp Sign Out Audit 05/22/20 15:34:20 Hand Engraver: [email or web address] Modifier: [email or web address] <+> 1 RN Sign Out Signature Date/Time [facility] IntraOp Skin Prep Entry 1 Procedure MIS Posterior Fusion CT Guided Prescribed N/A Pre-Surgical Prep Completed Intraop Prep Prep Agents Chloraprep Prep by Azul Daigle, Rn Hair Removal Last Modified By: Navid Anand RN 05/22/20 14:02:37 [facility] IntraOp Surgical Procedures Entry 1 Procedure MIS Posterior Fusion CT Guided Additional (L5-S1 MIS TLIF USING Procedure DALILA) Description Primary Procedure Yes Primary Surgeon HEIDY GAYTAN MD-SNU Start 05/22/20 13:59:00 Stop 05/22/20 15:28:00 Anesthesia Type General Specialty SN Neurosurgery Wound Class I - Clean Last Modified By: Kiah Lima RN 05/22/20 15:26:31 [facility] IntraOp Surgical Procedures Audit 05/22/20 15:26:31 Hand Engraver: [email or web address] Modifier: KIELY 1 <*> Procedure MIS Posterior Fusion CT Guided 1 <+> Stop 05/22/20 14:14:06 Hand Engraver: [id number] Modifier: [email or web address] <+> 1 Start [facility] IntraOp Temp Regulation Devices Entry 1 Temp Regulation Temperature Forced Air Warming Regulation Device device, Warm blankets Temperature 89112 Regulation Device Serial/Unit Number Temperature Upper body Regulation Site Temperature Device 43 C Setting Temperature JENNIE ABERNATHY APRN Regulation Device Applied by Last Modified By: Navid Anand RN 05/22/20 14:18:52 [facility] IntraOP Time Out Entry 1 Procedure to be MIS Posterior Fusion CT Performed Guided Time Out Time Out Pause Time 05/22/20 13:58:00 All activity Yes suspended (unless life threatening [...] None expected Nursing Assures Sterility of instruments, Equipment concerns or issues, Implant Availability Essential Imaging Yes Labeled and Displayed Last Modified By: Navid Anand RN 05/22/20 13:58:47 [facility] IntraOp X-Ray and Images Entry 1 X-Ray/Imaging Type Fluoroscopy Fluoroscopy Type C-Arm Site OP SITE Cma Or Lpn Name YOLY ADKINS Last Modified By: Navid Anand RN 05/22/20 14:19:18 [facility] IntraOp X-Ray and Images Audit 05/22/20 14:19:18 Hand Engraver: [email or web address] Modifier: [email or web address] <+> 1 Cma Or Lpn Name 05/22/20 14:19:02 Hand Engraver: [id number] Modifier: [email or web address] 1 <-> Cma Or Lpn Name Mag Zamora Diagnostic Automobile Body Repairer Case Comments <None> Finalized By: CUONG BRAND Document Signatures Signed By: Kiah Lima RN 05/22/20 15:34 CUONG BRAND 05/23/20 12:10 Unfinalized History Date/Time Username Reason for Unfinalizing Freetext Reason for Unfinalizing 05/23/20 12:08 WATTS Correct Billing documented in this encounter Plan of Treatment Upcoming Encounters Date Type Department Care Team (Late st Contact Info) Description 05/14/2025 8:00 AM EST Lab Patient Walk-In [facility] - [place] [address] [place] [address] 05/14/2025 8:30 AM EST Appointment [facility] [address] [place] [address] Neptali Bergman MD [address] [place] [address] 05/14/2025 10:00 AM EST Appointment [facility] - [address] [place] [address] Neptali Bergman MD [facility] [address] [place] [address] 05/14/2025 2:15 PM EST Office Visit [facility] - [place] [address] [place] [address] Neptali Bergman MD [address] [place] [address] [address] [place] [address] documented as of this encounter Visit Diagnoses Not on filedocumented in this encounter Care Teams Hot Box Spotter Relationship Specialty Start Date End Date Jonas Navas MD [address] [facility] [address] [place] [address] PCP - General Cardiothoracic Surgery 04/15/22 07/23/22 Marcell Uriostegui MD [address] [place] [address] PCP - General Adolescent Medicine 07/24/22 04/05/23 Heidi Rivers APRN [address] [facility] [address] [place] [address] PCP - General Nurse Practitioner 04/06/23 Neptali Bergman MD [address] [facility] [address] [place] [address] Hematology and Oncology 10/31/24 documented as of this encounter
--- OUTSIDE RECORDS SUMMARY | 2025-04-30 09:26 | XMS_ITS | Encounter Summary ---
Author Organization [employer] ([place], [place], [place], [place], [place]) Address [address] [place] [address] Care Team Providers Care Index Editor Name Role Phone Jonas Navas MD Primary Care Provider [phone] Marcell Uriostegui MD Primary Care Provider + [phone] Heidi Rivers APRN Primary Care Provider + [phone] Neptali Bergman MD Unavailable [phone] Encounter Details Date Type Department Care Team (Late st Contact Info) Description 05/22/2020 Transcribed Document [facility] [place] Family [place] [facility] [place] [address] ProviderJennifer MD [address] [place] [address] Social History Tobacco Use Types Packs/Day Years Used Date Smoking Tobacco: Never Assessed Comments Unknown Sex and Gender Information Value Date Recorded Sex Assigned at Not on file Legal Sex Female 1:09 PM CDT Gender Identity Not on file Sexual Orientation Not on file documented as of this encounter Miscellaneous Notes * Cerner Conversion Note - Jennifer ProviderMD - 05/22/2020 3:21 PM HYDRAULIC JACK MECHANIC Pain Assessment Entered On: 05/22/2020 21:44 EST Performed On: 05/22/2020 22:00 EST by Reji Graves, Rn Intervention Information: HYDROmorphone Performed by Reji Graves, Rn on 05/22/2020 21:30:00 EST HYDROmorphone,0.5mg IV Push,Peripheral Line 1,Pain (Moderate 4-6) Pain Assessment Pain Assessment : Follow-up assessment Pain Scale Goal : 3 Pain Scale Used : 0-10 Scale Pain Improved by Intervention : Yes Reji Graves Rn - 05/22/2020 21:44 EST Pain Scale Intensity : 3 Reji Graves Rn - 05/22/2020 21:44 EST Image 4 - Images currently included in the form version of this document have not been included in the text rendition version of the form. documented in this encounter Plan of Treatment Upcoming Encounters Date Type Department Care Team (Late st Contact Info) Description 05/14/2025 8:00 AM EST Lab Patient [facility] [place] [address] [place] [address] 05/14/2025 8:30 AM EST Appointment [facility] [address] [facility] [address] [place] [address] Neptali Bergman MD [address] [place] [address] [address] [place] [address] 05/14/2025 10:00 AM EST Appointment MRI - [facility] [address] [facility] [address] [place] [address] Neptali Bergman MD [address] [place] [address] [address] [place] [address] 05/14/2025 2:15 PM EST Office Visit [facility] [place] [address] [place] [address] Neptali Bergman MD [address] [place] [address] [address] [place] [address] documented as of this encounter Visit Diagnoses Not on filedocumented in this encounter Care Teams Index Editor Relationship Specialty Start Date End Date Jonas Navas MD [address] [facility] [address] [place] [address] PCP - General Cardiothoracic Surgery 04/15/22 07/23/22 Marcell Uriostegui MD [address] [facility] [address] [place] [address] PCP - General Adolescent Medicine 07/24/22 04/05/23 Heidi Rivers, ROMERO [address] [facility] [address] [place] [address] PCP - General Nurse Practitioner 04/06/23 Neptali Bergman MD [address] [facility] [address] [place] [address] Hematology and Oncology 10/31/24 documented as of this encounter
--- OUTSIDE RECORDS SUMMARY | 2025-04-30 09:26 | XMS_ITS | Encounter Summary ---
Author Organization [employer] ([place], [place], [place], [place], [place]) Address [address] [place] [address] Care Team Providers Care Medical Anthropology Director Name Role Phone Jonas Navas MD Primary Care Provider [phone] Marcell Uriostegui MD Primary Care Provider + [phone] Heidi Rivers APRN Primary Care Provider + [phone] Neptali Bergman MD Unavailable [phone] Encounter Details Date Type Department Care Team (Late st Contact Info) Description 05/22/2020 Transcribed Document [facility] [place] [facility] [place] [address] ProviderJennifer MD [address] [place] [address] Social History Tobacco Use Types Packs/Day Years Used Date Smoking Tobacco: Never Assessed Comments Unknown Sex and Gender Information Value Date Recorded Sex Assigned at Not on file Legal Sex Female 1:09 PM CDT Gender Identity Not on file Sexual Orientation Not on file documented as of this encounter Miscellaneous Notes * Cerner Conversion Note - Jennifer ProviderMD - 05/22/2020 3:21 PM CYTOLOGY LABORATORY MANAGER Evaluation, Physical Therapy Entered On: 05/23/2020 12:51 EST Performed On: 05/23/2020 12:27 EST by Tanesha Mcmahan PHYSICAL THERAPIST General Information, PT Visit Type, PT : Initial evaluation Patient Orders : Order Date Order Ordering 05/22/2020 15:22 Physical Therapy Eval and Treat Ordered By: HEIDY GAYTAN MD-SNU Active Diagnoses : 05/23/2020 12:00 Spondylolisthesis, site unspecified Therapy Diagnosis, PT : Pt presents with decreased safety awareness and functional mobility Onset of Problem, PT : 05/23/2020 EST Admission Date : 05/22/2020 15:58 Co-treated by, PT : Occupational Therapist Personal Devices : Personal Devices No Devices Recorded Assistive Devices : Assistive Devices No Devices Recorded Precautions in Place : Fall prevention measures, Log roll precautions, Spinal Precautions General Information Comment, PT : Admission: L5-S1 spondylolisthesis Sx (05/22): L5-S1 min invasive TLIF No brace H: past TIA, COPD- not on O2, DMII, Lung cancer Tanesha Mcmahan PHYSICAL THERAPIST - 05/23/2020 12:27 EST General Status Patient Received Status : Long sitting in bed, HOB elevated Treatment Start Time : 05/23/2020 9:45 EST Patient Left Status : Up in chair, RN/PCT informed, Family/Visitors at bedside, Communication board completed, All needs met and within reach RN/PCT Informed Comment : Pt's O2 drop post ambulation Treatment End Time : 05/23/2020 10:26 EST Treatment Time : 41 Minute(s) Tanesha Mcmahan PHYSICAL THERAPIST - 05/23/2020 12:27 EST History and Environment Living Situation, Therapy : Home Patient Lives With : Spouse Persons Assisting Patient at Home : Alone Professional Skilled Services : None Persons Providing Information : Patient, Spouse Home Equipment Therapy, PT : Shower Equipment, Walker Shower Equipment : Shower Chair, with back Walker Comment : Rollator Home Setup : One story Stairs : Yes Stair Location(s) : Outside Outside Stairs, Number of Steps : 1 Railing Outside : No Tanesha Mcmahan PHYSICAL THERAPIST - 05/23/2020 12:27 EST Prior Level of Function PT GRID Prior LOF Ambulation, Household : Independent Prior LOF Ambulation, Community : Independent Prior LOF Bed Mobility : Independent Prior LOF Toileting : Independent Prior LOF Transfer : Independent Prior LOF Wheel Chair Mobility : Independent Tanesha Mcmahan PHYSICAL THERAPIST - 05/23/2020 12:27 EST Prior LOF Assist with ADL Comment : Pt was not using rollator prior to admission Tanesha Mcmahan PHYSICAL THERAPIST - 05/23/2020 12:27 EST Intervention Summary Heart Rate/Pulse Pre-intervention : 78 bpm BP Systolic Pre-intervention : 118 mmHg BP Diastolic Pre-intervention : 72 mmHg O2 Pre-Intervention : 1L NC SpO2 Pre-Intervention : 97 % Pain Score Pre-intervention : 6 - Heart Rate/Pulse During Intervention : 79 bpm BP Systolic During Intervention : 113 mmHg BP Diastolic During Intervention : 52 mmHg O2 During Intervention : Room air SpO2 During Intervention : 84 % Pain Score During Intervention : 5 Therapist Assessment During Intervention : Post ambulation up in chair talking (pt unaware of drop)- took grossly 2 min with PLB technique to return to 90% O2 Post-Intervention : Room air SpO2 Post-Intervention : 97 % Therapist Assessment Post-intervention : Grossly 10 min post ambulation Tanesha Mcmahan PHYSICAL THERAPIST - 05/23/2020 12:27 EST Upper Extremity Right UE Active ROM : WFL Right UE Strength : WFL Left UE Active ROM : WFL Left UE Strength : WFL Tanesha Mcmahan PHYSICAL THERAPIST - 05/23/2020 12:27 EST Lower Extremity RLE Active ROM : WFL Right LE Strength : WFL LLE Active ROM : WFL Left LE Strength : WFL Tanesha Mcmahan PHYSICAL THERAPIST - 05/23/2020 12:27 EST Functional Mobility Mobility Grid Supine to Sit : Rehab Moderate assistance Sit to Stand : Rehab Minimal assistance Stand to Sit : Rehab Minimal assistance Tanesha Mcmahan PHYSICAL THERAPIST - 05/23/2020 12:27 EST Supine to Sit Device : Rails Sit to Stand Device : Belt, gait, Walker, front wheel Stand to Sit Device : Belt, gait, Walker, front wheel Tanesha Mcmahan PHYSICAL THERAPIST - 05/23/2020 12:27 EST Gait Training/Assessment, PT Weight Bearing Status Maintained : Yes Weight Bearing Status : Full Gait Assistance Level : Supervision Walking Distance : 360 ft Ambulatory Devices : Gait belt, Walker, front wheel Gait Deviations : Yes Gait Training Comment : Heavy BUE use on RWX Tanesha Mcmahan PHYSICAL THERAPIST - 05/23/2020 12:27 EST Edu Topics Physical Therapy Education Grid Bed Mobility Training : Verbalizes understanding, Returns demonstration, Needs further teaching, Needs reinforcement Precaution/Contraindication : Verbalizes understanding, Returns demonstration, Needs further teaching, Needs reinforcement Role of Physical Therapy : Verbalizes understanding, Returns demonstration, Needs further teaching, Needs reinforcement Transfer Training : Verbalizes understanding, Needs further teaching, Needs reinforcement Use of Assistive Device : Verbalizes understanding, Needs further teaching, Needs reinforcement Physical Therapy, Other : Verbalizes understanding, Returns demonstration, Needs further teaching, Needs reinforcement (Comment: PLB technique [Tanesha Mcmahan PHYSICAL THERAPIST - 05/23/2020 12:27 EST] ) Tanesha Mcmahan PHYSICAL THERAPIST - 05/23/2020 12:27 EST Indication Assesessment, PT Physical Therapy Indicated : Yes PT Problem List : Impaired, activities daily living, Impaired, bed mobility, Impaired, endurance tolerance, Impaired, gait, Impaired, stair mobility, Impaired, strength, Impaired, transfers Potential Barriers To Therapy : None evident Rehabilitation Potential : Good Tanesha Mcmahan PHYSICAL THERAPIST - 05/23/2020 12:27 EST Plan of Care, PT PT Tx Plan/Goals Established w Patient : Yes PT Frequency Rehab : Daily, twice (bid) PT Duration Rehab : Fourteen days PT Treatments Planned : Balance training, Bed mobility training, Caregiver training, Gait training, Safety education, Stair training, Therapeutic exercises, Transfer training Tanesha Mcmahan PHYSICAL THERAPIST - 05/23/2020 12:27 EST Short Term Goals Mobility/Bed Mobility STG PT Grid Goal #1 Goal #2 Activity : Supine to sit Sit to stand Assist : Assist, minimal Supervision or set-up Equipment : Walker, four wheel Date to Meet : 05/30/2020 EST 05/30/2020 EST Goal Status : Initial goal Initial goal Comment : BLT precautions with bed flat Tanesha Mcmahan PHYSICAL THERAPIST - 05/23/2020 12:27 EST Tanesha Mcmahan PHYSICAL THERAPIST - 05/23/2020 12:27 EST Ambulation STG Grid Goal #1 Device : Walker, front wheel Distance : 200 ft Assist : Supervision or set-up Date to Meet : 05/30/2020 EST Goal Status : Intial Goal Comment : O2 sat >90% on room air Tanesha Mcmahan PHYSICAL THERAPIST - 05/23/2020 12:27 EST Stairs STG Grid Goal #1 Device : Walker, front wheel Number of Steps : 1 Handrail(s) : No handrails Assist : Assist, minimal Date to Meet : 05/30/2020 EST Goal Status : Initial goal Tanesha Mcmahan PHYSICAL THERAPIST - 05/23/2020 12:27 EST Privacy Analyst Goals Mobility/Bed Mobility LTG PT Grid Goal #1 Goal #2 Activity : Supine to sit Sit to stand Assist : Supervision or set-up Independent, modified Date to Meet : 06/06/2020 EST 06/06/2020 EST Goal Status : Intial Goal Intial Goal Comment : BLT precautions with bed flat Tanesha Mcmahan PHYSICAL THERAPIST - 05/23/2020 12:27 EST Tanesha Mcmahan PHYSICAL THERAPIST - 05/23/2020 12:27 EST Ambulation LTG Grid Goal #1 Device : Walker, front wheel Distance : 300 ft Assist : Independent, modified Date to Meet : 06/06/2020 EST Goal Status : Intial Goal Comment : O2 sat >90% on room air Tanesha Mcmahan PHYSICAL THERAPIST - 05/23/2020 12:27 EST Stairs LTG Grid Goal #1 Device : Walker, front wheel Number of Steps : 1 Handrail(s) : No handrails Assist : Supervision or set-up Date to Meet : 06/06/2020 EST Goal Status : Intial Goal Tanesha Mcmahan PHYSICAL THERAPIST - 05/23/2020 12:27 EST Treatment Note Subjective Comment : Pt agreed to PT eval. RN gave okay Additional Objective Information : Pt completed coached log roll and sidelying to sit with ModA. Pt then completed sit to stand and the reverse with BUE left on RWx despite VC for hand placement. Pt was able to ambulate 360 ft with no LOB or safety concerns. Once up in chair O2 was retaken and O2 dropped to 84% and coached PLB technique was utilized and took grossly 2 minutes to return into >90% O2 sat. Pt's O2 fluctuated while talking up in chair down to 86% and needed cues to utilize PLB due to pt not feeling the oxygen drop. O2 sat would return every time focused breathing was utilized. Education was given to pt verbally and visually (demo, written on board, HEP packet) on BLT precautions with pt verbally giving understanding but struggled to execute it correctly (tactile cues needed to complete safely). HEP exercises still need to completed with pt for return to home. Assessment : Pt presents with decreased safety awareness and functional mobility. This limits the pt from independently completing ADLs (bed mobility, transfers), ambulation at community distances, and stair mobility safely. Pt needs skilled PT to return to PLOF. Plan for Treatment : Skilled PTx x2 daily for 2 weeks Tanesha Mcmahan PHYSICAL THERAPIST - 05/23/2020 12:27 EST Pain Assessment Pain Score Pre-Intervention : 6 Pain Score During-Intervention : 5 Pain Score Post-Intervention. : 5 Pain Comment : Pt's pain was all across the back improved with ambulation Tanesha Mcmahan PHYSICAL THERAPIST - 05/23/2020 12:27 EST Image 1 - Images currently included in the form version of this document have not been included in the text rendition version of the form. Anticipated Discharge Needs, OT/PT Anticipated Discharge to : Home, with home health Recommend Continued Therapy at Discharge : Yes Tanesha Mcmahan PHYSICAL THERAPIST - 05/23/2020 12:27 EST [place] [facility] PT Ther Activities Ea 15 Min : 2 PT Eval Low Complexity : 1 Tanesha Mcmahan PHYSICAL THERAPIST - 05/23/2020 12:27 EST Electronically signed by Hossein [facility] Conversion Truck Jumper Cerner at 09/10/2022 12:47 AM CDT documented in this encounter Plan of Treatment Upcoming Encounters Date Type Department Care Team (Late st Contact Info) Description 05/14/2025 8:00 AM EST Lab Patient Walk-In [facility] [address] [place] [address] 05/14/2025 8:30 AM EST Appointment [facility] Imaging CT - [place] [facility] [address] [facility] [address] [place] [address] [place] [address] [place] [address] [address] [place] [address] 05/14/2025 10:00 AM EST Appointment [facility] MRI - [facility] [address] [facility] [address] [place] [id number] [place] [address] [place] [address] [address] [place] [address] 05/14/2025 2:15 PM EST Office Visit [facility] [place] [address] [place] [address] Neptali Bergman MD [address] [place] [address] [address] [place] [address] documented as of this encounter Visit Diagnoses Not on filedocumented in this encounter Care Teams Medical Anthropology Director Relationship Specialty Start Date End Date Jonas Navas MD [address] [facility] [address] [place] [address] PCP - General Cardiothoracic Surgery 04/15/22 07/23/22 Marcell Uriostegui MD [address] [facility] [address] [place] [address] PCP - General Adolescent Medicine 07/24/22 04/05/23 Heidi Rivers, ACCOUNT SERVICES ANALYST [address] [facility] [address] [place] [address] PCP - General Nurse Practitioner 04/06/23 Neptali Bergman MD [address] [facility] [address] [place] [address] Hematology and Oncology 10/31/24 documented as of this encounter
--- OUTSIDE RECORDS SUMMARY | 2025-04-30 09:26 | XMS_ITS | Encounter Summary ---
Author Organization [employer] ([place], [place], [place], [place], [place]) Address [address] [place] [address] Care Team Providers Care System Validation Engineer Name Role Phone oJnas Navas MD Primary Care Provider [phone] Marcell Uriostegui MD Primary Care Provider + [phone] Heidi Rivers APRN Primary Care Provider + [phone] Neptali Bergman MD Unavailable [phone] Encounter Details Date Type Department Care Team (Late st Contact Info) Description 07/10/2019 Transcribed Document [facility] [place] Family Medicine [address] [place] [address] ProviderJennifer MD [address] [place] [address] Social History Tobacco Use Types Packs/Day Years Used Date Smoking Tobacco: Never Assessed Comments Unknown Sex and Gender Information Value Date Recorded Sex Assigned at Not on file Legal Sex Female 1:09 PM CDT Gender Identity Not on file Sexual Orientation Not on file documented as of this encounter Miscellaneous Notes * Cerner Conversion Note - Jennifer Arroyo MD - 07/10/2019 8:54 AM DIABETES TRAINER Patient Education Materials Follows: Needle Biopsy of the Lung, Care After This sheet gives you information about how to care for yourself after your procedure. Your health care provider may also give you more specific instructions. If you have problems or questions, contact your health care provider. What can I expect after the procedure? After the procedure, it is common to have: ??? Soreness, pain, and tenderness where a tissue sample was taken (biopsy site). ??? A cough. ??? A sore throat. Follow these instructions at home: Biopsy site care ??? Follow instructions from your health care provider about when to remove the bandage that was placed on the biopsy site. ??? Keep the bandage dry until it has been removed. ??? Check your biopsy site every day for signs of infection. Check for: ? More redness, swelling, or pain. ? More fluid or blood. ? Warmth to the touch. ? Pus or a bad smell. General instructions ??? Rest as directed by your health care provider. Ask your health care provider what activities are safe for you. ??? Do not take baths, swim, or use a hot tub until your health care provider approves. ??? Take ydrq-bku-jnevehu and prescription medicines only as told by your health care provider. ??? If you have airplane travel scheduled, talk with your health care provider about when it is safe for you to travel by airplane. ??? It is up to you to get the results of your procedure. Ask your health care provider, or the department that is doing the procedure, when your results will be ready. ??? Keep all follow-up visits as told by your health care provider. This is important. Contact a health care provider if: ??? You have more redness, swelling, or pain around your biopsy site. ??? You have more fluid or blood coming from your biopsy site. ??? Your biopsy site feels warm to the touch. ??? You have pus or a bad smell coming from your biopsy site. ??? You have a fever. ??? You have pain that does not get better with medicine. Get help right away if: ??? You have problems breathing. ??? You have chest pain. ??? You cough up blood. ??? You faint. ??? You have a fast heart rate. Summary ??? After a needle biopsy of the lung, it is common to have a cough, a sore throat, or soreness, pain, and tenderness where a tissue sample was taken (biopsy site). ??? You should check your biopsy area every day for signs of infection, including pus or a bad smell, warmth, more fluid or blood, or more redness, swelling, or pain. ??? You should not take baths, swim, or use a hot tub until your health care provider approves. ??? It is up to you to get the results of your procedure. Ask your health care provider, or the department that is doing the procedure, when your results will be ready. This information is not intended to replace advice given to you by your health care provider. Make sure you discuss any questions you have with your health care provider. Document Released: 03/06/2008 Document Revised: 03/31/2017 Document Reviewed: 03/31/2017 [employer] Interactive Patient Education ? 2019 [employer] Moderate Conscious Sedation, Adult, Care After These instructions provide you with information about caring for yourself after your procedure. Your health care provider may also give you more specific instructions. Your treatment has been planned according to current medical practices, but problems sometimes occur. Call your health care provider if you have any problems or questions after your procedure. What can I expect after the procedure? After your procedure, it is common: ??? To feel sleepy for several hours. ??? To feel clumsy and have poor balance for several hours. ??? To have poor judgment for several hours. ??? To vomit if you eat too soon. Follow these instructions at home: For at least 24 hours after the procedure: ??? Do not: ? Participate in activities where you could fall or become injured. ? Drive. ? Use heavy machinery. ? Drink alcohol. ? Take sleeping pills or medicines that cause drowsiness. ? Make important decisions or sign legal documents. ? Take care of children on your own. ??? Rest. Eating and drinking ??? Follow the diet recommended by your health care provider. ??? If you vomit: ? Drink water, juice, or soup when you can drink without vomiting. ? Make sure you have little or no nausea before eating solid foods. General instructions ??? Have a responsible adult stay with you until you are awake and alert. ??? Take hglw-vro-givbndb and prescription medicines only as told by your health care provider. ??? If you smoke, do not smoke without supervision. ??? Keep all follow-up visits as told by your health care provider. This is important. Contact a health care provider if: ??? You keep feeling nauseous or you keep vomiting. ??? You feel light-headed. ??? You develop a rash. ??? You have a fever. Get help right away if: ??? You have trouble breathing. This information is not intended to replace advice given to you by your health care provider. Make sure you discuss any questions you have with your health care provider. Document Released: 02/28/2014 Document Revised: 10/12/2016 Document Reviewed: 08/29/2016 [employer] Interactive Patient Education ? 2019 [employer]. documented in this encounter Plan of Treatment Upcoming Encounters Date Type Department Care Team (Late st Contact Info) Description 05/14/2025 8:00 AM EST Lab Patient Walk-In [facility] - [address] [place] [address] 05/14/2025 8:30 AM EST Appointment [facility] CT [address] [place] [address] Neptali Bergman MD [address] [place] [address] [address] [place] [address] 05/14/2025 10:00 AM EST [facility]ointment [facility] MRI - [address] [facility] [address] [place] [address] Neptali Bergman MD [address] [place] [address] 05/14/2025 2:15 PM EST Office Visit [facility] - [address] [place] [address] Neptali Bergman MD [facility] [address] [place] [address] documented as of this encounter Visit Diagnoses Not on filedocumented in this encounter Care Teams System Validation Engineer Relationship Specialty Start Date End Date Jonas Navas MD [address] [facility] [address] [place] [address] PCP - General Cardiothoracic Surgery 04/15/22 07/23/22 Marcell Uriostegui MD [address] [place] [facility] [address] [place] [address] PCP - General Adolescent Medicine 07/24/22 04/05/23 Heidi Rivers APRN [address] [place], [place] [id number] PCP - General Nurse Practitioner 04/06/23 Neptali Bergman MD [address] [facility] [address] [place] [address] Hematology and Oncology 10/31/24 documented as of this encounter
--- OUTSIDE RECORDS SUMMARY | 2025-04-30 09:26 | XMS_ITS | Encounter Summary ---
Author Organization [employer] ([place], [place], [place], [place], [place]) Address [address] [place] [address] Care Team Providers Care Casket Inspector Name Role Phone Jonas Navas MD Primary Care Provider [phone] Marcell Uriostegui MD Primary Care Provider + [phone] Heidi Rivers APRN Primary Care Provider + [phone] Neptali Bergman MD Unavailable [phone] Encounter Details Date Type Department Care Team (Late st Contact Info) Description 07/10/2019 Transcribed Document [facility] [place] [address] [place] [address] ProviderJennifer MD [address] [place] [address] Social History Tobacco Use Types Packs/Day Years Used Date Smoking Tobacco: Never Assessed Comments Unknown Sex and Gender Information Value Date Recorded Sex Assigned at Not on file Legal Sex Female 1:09 PM CDT Gender Identity Not on file Sexual Orientation Not on file documented as of this encounter Miscellaneous Notes * Cerner Conversion Note - Jennifer ProviderMD - 07/10/2019 12:44 PM FREIGHT TRUCKER Nursing Discharge Summary Entered On: 07/10/2019 12:44 EST Performed On: 07/10/2019 12:44 EST by AMARILYS DIAZ, hem marker Documentation Discharge Date/Time : 07/10/2019 13:20 EST AMARILYS DIAZ, RN - 07/10/2019 13:20 EST Patient Disposition, General : Discharge Discharge To : Home with ambulatory/outpatient follow-up Mode Of Departure, General Discharge : Ambulatory Accompanied By, Discharge : Spouse IV Discontinued : Yes Personal Belongings With Patient : Yes Discharge Instructions Reviewed With, Opportunity For Questions Given : Patient Patient Education Completed : Yes Teaching Method : Explanation Teaching Evaluation : Verbalizes understanding AMARILYS DIAZ, RN - 07/10/2019 12:44 EST Electronically signed by [facility] Conversion Residential Roofer Cerner at 09/10/2022 12:45 AM CDT documented in this encounter Plan of Treatment Upcoming Encounters Date Type Department Care Team (Late st Contact Info) Description 05/14/2025 8:00 AM EST Lab Patient Walk-In [facility] - [address] [place] [address] 05/14/2025 8:30 AM EST Appointment [facility] CT - [address] [facility] [address] [place] [address] Neptali Bergman MD [address] [place] [address] [address] [place] [address] 05/14/2025 10:00 AM EST Appointment [facility] MRI - [address] [facility] [address] [place] [address] Neptali Bergman MD [address] [place] [address] [address] [place] [address] 05/14/2025 2:15 PM EST Office Visit [facility] - [address] [place] [address] Neptali Bergman MD [address] [place] [address] [address] [place] [address] documented as of this encounter Visit Diagnoses Not on filedocumented in this encounter Care Teams Casket Inspector Relationship Specialty Start Date End Date Jonas Navas MD [address] [facility] [address] [place] [id number] PCP - General Cardiothoracic Surgery 04/15/22 07/23/22 Marcell Uriostegui MD [address] [place] [address] [place] [address] PCP - General Adolescent Medicine 07/24/22 04/05/23 Heidi Rivers APRN [address] [facility] [address] [place] [address] PCP - General Nurse Practitioner 04/06/23 Neptali Bergman MD [address] [facility] [address] [place] [address] Hematology and Oncology 10/31/24 documented as of this encounter
--- OUTSIDE RECORDS SUMMARY | 2025-04-30 09:26 | XMS_ITS | Encounter Summary ---
Author Organization [employer] ([place], [place], [place], [place], [place]) Address [address] [place] [address] Care Team Providers Care Legal Services Professional Name Role Phone Jonas Navas MD Primary Care Provider [phone] Marcell Uriostegui MD Primary Care Provider + [phone] Heidi Rivers APRN Primary Care Provider + [phone] Neptali Bergman MD Unavailable [phone] Encounter Details Date Type Department Care Team (Late st Contact Info) Description 05/23/2020 Transcribed Document [facility] [address] [place] [address] Dolores Batista MD [address] [place] [address] Social History Tobacco Use Types Packs/Day Years Used Date Smoking Tobacco: Never Assessed Comments Unknown Sex and Gender Information Value Date Recorded Sex Assigned at Not on file Legal Sex Female 1:09 PM CDT Gender Identity Not on file Sexual Orientation Not on file documented as of this encounter Miscellaneous Notes * Cerner Conversion Note - Dolores Batista MD - 05/23/2020 10:00 AM EST Patient: ALEJANDRINA YEH Age: 64 years Sex: Female : 1955 Associated Diagnoses: None Author: BRI MACEDO PA-RAYMON 05/23/2020 cc: medical management s/p L5-S1 TLIF per Dr. Mendez S: Pt is doing ok. No f'/c/s. No n/v/d. (-) gas, (-) BM. +belching. No CP, SOA, palpitations. No cough or sputum. Urinating well. +post op pain. Using incentive spirometer. HPI: Patient is a 64 yo female admitted to [facility] per Dr. Mendez for an L5-S1 TLIF. Preoperatively patient was found to have advanced spondylolisthesis of the lumbar spine and elected surgical intervention after failing conservative treatment. Patient is followed perioperatively while hospitalized for medical management. Patient seen post-op and still under effects of anesthesia - poor historian at the time. at bedside. Patient denies dyspnea, chest pain pressure. 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, now present in left lower abd by PET scan Past Med Hx: Active Problems (18) Arthritis Back pain CA - Lung cancer adenocarcinoma 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 Claustrophobia Coronary artery disease s/p NH Diabetes mellitus type II Diverticulosis GERD - Gastro-esophageal reflux disease H/O: TIA Hiatal hernia High blood pressure History of obstructive sleep apnea Hyperlipidemia Migraine Shortness of breath Sinusitis Sleep apnea no c-pap Active Procedures (1) Laparoscopy, surgical, with adrenalectomy, partial or complete, or exploration of adrenal gland with Family Hx: Social & Psychosocial Habits Alcohol 07/20/2019 Alcohol Use History, Social Habits No 05/15/2020 Alcohol Use History, Social Habits Yes Alcohol Use in Last Twelve Months Yes Alcohol Use Frequency Monthly Alcohol Use Comment probably once a month Employment/School 07/20/2019 Status: Retired Home/Environment 07/20/2019 Lives with: Spouse Living situation: Home/Independent Home equipment: Glucose monitoring Substance Abuse 07/20/2019 Recreational Drug Use History No Recreational Drug Use Last 12 Months No 05/15/2020 Recreational Drug Use History No Recreational Drug Use Last 12 Months No Tobacco 03/26/2020 Smoking Status Former smoker, quit more Smokeless Tobacco Status Never Month Tobacco Last Used 305/15/2020 Smoking Status Former smoker, quit more Smokeless Tobacco Status Never Smokeless Tobacco Use History None Month Tobacco Last Used quit in July of this year when I had my lung cancer surgery. Second Hand Smoke Exposure No Allergies (6) Active Reaction Anoro Ellipta Chest pain Corgard Unknown dilTIAZem Unknown Levaquin Vomiting Roxicet Unknown Stiolto Respimat 10 ACT Chest pain Home Medications (8) Active Advair Diskus 250 mcg-50 mcg inhalation powder 1 Puff, Inhalation, BID albuterol 2 puffs, PRN, Inhalation, Q6H ALPRAZolam 0.25 mg, PRN, Oral, At Bedtime aspirin 325 mg, Oral, Daily atorvastatin 40 mg, Oral, At Bedtime fluticasone 50 mcg/inh nasal spray 2 [place], PRN, Nasal, Daily hydroCHLOROthiazide-lisinopril 25 mg-20 mg oral tablet 1 Tab, Oral, Daily omeprazole 20 mg, Oral, Daily Exam: Vitals Signs (last 24 hrs) Last Charted Minimum Maximum Temp 98 (MAY 23 06:) 97.7 (MAY 23:45) 99.4 (MAY 22 15:35) Mon HR 74 (MAY 23 06:00) 60 (MAY 22 17:56) 100 (MAY 22 15:50) Resp Rate 16 (MAY 23 06:00) 14 (MAY 22 15:55) 18 (MAY 22 10:00) SBP 100 (MAY 23 06:00) 96 (MAY 22 16:15) 134 (MAY 22 16:30) DBP L 49 (MAY 23 06:) L 44 (MAY 23:45) 74 (MAY 22 15:45) MAP 64 (MAY 23 06:00) 64 (MAY 23 06:00) 93 (MAY 22 15:45) SpO2 98 (MAY 23 06:00) 94 (MAY 22 15:55) 100 (MAY 22 20:16) GEN: Alert, awake, NAD; sitting up in chair. CV: S1S2, no murmur. No LE edema Resp: CTAB, NL; no wheezes or rhonchi. Abd: Soft, LLQ ttp secondary to mass; ND +BS diminished. Skin: no rashes on inspection and palpation. Ext: No LE edema. No joint edema, erythema. Neuro: A&O x 3 Data: Blood Gases (Current Encounter/Past 24 Hours) No Blood Gas Results Found (Past 24 Hours) Electrolytes(BMP) Results (Current Encounter/Past 24 Hours) Sodium Level 136 mmol/L 05/23/2020 04:17 Potassium Level 4.2 mmol/L 05/23/2020 04:17 Chloride Level 103 mmol/L 05/23/2020 04:17 Carbon Dioxide Level 27 mmol/L 05/23/2020 04:17 Anion Gap 10 05/23/2020 04:17 Blood Urea Nitrogen 23 mg/dL IA 05/23/2020 04:24 Glucose Level 154 mg/dL [place] 05/23/2020 04:24 Calcium Level 8.9 mg/dL 05/23/2020 04:17 Creatinine Level 1.10 mg/dL HI 05/23/2020 04:24 Cardiac Markers (Current Encounter/Past 24 Hours) No Cardiac Marker Results Found (Past 24 Hours) CBC Results (Current Encounter/Past 24 Hours) WBC 13.9 K/uL IA 05/23/2020 04:02 Hct 30.3 % LOW 05/23/2020 04:02 Hgb 9.4 g/dL LOW 05/23/2020 04:02 Platelet Count 263 K/uL 05/23/2020 03:53 CMP Results (Current Encounter/Past 24 Hours) eGFR NonAfrican 50 mL/min/1.73m2 LOW 05/23/2020 04:17 Bun/Creatinine 20.9 IA 05/23/2020 04:24 Creatinine Level 1.10 mg/dL IA 05/23/2020 04:24 eGFR NonAfrican 50 mL/min/1.73m2 LOW 05/23/2020 04:24 Creatinine Level 1.10 mg/dL IA 05/23/2020 04:17 Bun/Creatinine 20.9 IA 05/23/2020 04:17 eGFR >60 mL/min/1.73m2 05/23/2020 04:17 Sodium Level 136 mmol/L 05/23/2020 04:17 Potassium Level 4.2 mmol/L 05/23/2020 04:17 Chloride Level 103 mmol/L 05/23/2020 04:17 Carbon Dioxide Level 27 mmol/L 05/23/2020 04:17 Anion Gap 10 05/23/2020 04:17 Blood Urea Nitrogen 23 mg/dL IA 05/23/2020 04:24 Glucose Level 154 mg/dL IA 05/23/2020 04:24 Calcium Level 8.9 mg/dL 05/23/2020 04:17 Coagulation Results (Current Encounter/Past 24 Hours) No Coagulation Results Found (Past 24 Hours) Creatinine Clearance (Current Encounter/Past 24 Hours) Creatinine Level 1.10 mg/dL HI 05/23/2020 04:24 Bun/Creatinine 20.9 HI 05/23/2020 04:24 Estimated Creatinine Clearance 38.99 mL/Min 05/23/2020 04:17 Radiology Results (Last 48 hours) [id number] -- 05/22/2020 15:58 CR Fluoro in OR (05/22/2020 15:00) Result: INTRAOPERATIVE FLUOROSCOPY HISTORY: Intraoperative evaluation/fluoroscopic guidanceFINDINGS: C-arm fluoroscopy was provided intraoperatively for thereferring service. The amount of fluoroscopy time was 2.1 minutes. The3 submitted image(s) demonstrate spot C-arm films centered about thelumbosacral spine during fusion.Please refer to the operative report for detailed findings and anyfollow-up suggestions per the referring service.IMPRESSION:Intraoperative fluoroscopy as above. Impression: spondylolisthesis Lspine -s/p L5-S1 TLIF per Dr[address] Mendez metastatic AdenoCa (mets to low abd / tender) mild postop leukocytosis. hx COPD Hx HTN Hx DM - diet controlled Plan: recommend trying to pass gas prior to discharge. If able Anticipate DC home later today if pain controlled and tolerating therapy; otherwise home tomorrow DVT prophylaxis noted - hypercoaguable Monitor HTN; add PRN's, hold parameters; hold diuretics bowel regimen incentive spirometer PT/OT Pain management deferred to surgeon will monitor hb/hct daily for signs of ongoing acute blood loss will monitor bun/cr daily for signs of dehydration, prerenal azotemia will monitor for signs/symptoms of post-op wound infection or hospital acquired infectious process resume outpatient medication regimen for comorbidities Assessment and treatment plan made in conjunction with Roderick Batista MD Scribed by Anat Driscoll documented in this encounter Plan of Treatment Upcoming Encounters Date Type Department Care Team (Late st Contact Info) Description 05/14/2025 8:00 AM EST Lab Patient Walk-In [facility] - [address] [place] [address] 05/14/2025 8:30 AM EST Appointment [facility] CT [address] [place] [address] Neptali Bergman MD [address] [facility] [address] [place] [address] 05/14/2025 10:00 AM EST Appointment [facility] MRI - [address] [place] [address] [place] [address] [place] [address] [address] [place] [address] 05/14/2025 2:15 PM EST Office Visit [facility] - [address] [place] [address] Neptali Bergman MD [address] [place] [address] [address] [place] [address] documented as of this encounter Visit Diagnoses Not on filedocumented in this encounter Care Teams Legal Services Professional Relationship Specialty Start Date End Date Jonas Navas MD [address] [facility] [address] [place] [address] PCP - General Cardiothoracic Surgery 04/15/22 07/23/22 Marcell Uriostegiu MD [facility] [facility] [address] [place] [address] PCP - General Adolescent Medicine 07/24/22 04/05/23 Heidi Rivers APRN [address] [facility] [address] [place] [address] PCP - General Nurse Practitioner 04/06/23 [place] [address] [place] [address] [address] [place] [address] Hematology and Oncology 10/31/24 documented as of this encounter
--- OUTSIDE RECORDS SUMMARY | 2025-04-30 09:26 | XMS_ITS | Encounter Summary ---
Author Organization [employer] ([place], [place], [place], [place], [place]) Address [address] [place] [address] Care Team Providers Care Burrer Marker Axle Name Role Phone Jonas Navas MD Primary Care Provider [phone] Marcell Uriostegui MD Primary Care Provider + [phone] Heidi Rivers APRN Primary Care Provider + [phone] Neptali Bergman MD Unavailable Encounter Details Date Type Department Care Team (Late st Contact Info) Description 05/22/2020 Transcribed Document [facility] Family Medicine [address] [place] [address] ProviderJennifer MD [address] [place] [address] Social History Tobacco Use Types Packs/Day Years Used Date Smoking Tobacco: Never Assessed Comments Unknown Sex and Gender Information Value Date Recorded Sex Assigned at Not on file Legal Sex Female 1:09 PM CDT Gender Identity Not on file Sexual Orientation Not on file documented as of this encounter Miscellaneous Notes * Cerner Conversion Note - Jennifer ProviderMD - 05/22/2020 6:00 PM WASH PLANT OPERATOR Pain Assessment Entered On: 05/22/2020 20:11 EST Performed On: 05/22/2020 18:36 EST by LATESHA KIM Intervention Information: acetaminophen Performed by LATESHA KIM on 05/22/2020 17:36:00 EST acetaminophen,650mg Oral Pain Assessment Pain Scale Goal : 3 Pain Comment : scheduled tylenol no change in pain level from previous assesmnebt LATESHA KIM - 05/22/2020 20:10 EST Electronically signed by [facility], [facility] Conversion [employer] Cerner at 09/10/2022 12:34 AM CDT documented in this encounter Plan of Treatment Upcoming Encounters Date Type Department Care Team (Late st Contact Info) Description 05/14/2025 8:00 AM EST Lab Patient Walk-In [facility] - [address] [place] [address] 05/14/2025 8:30 AM EST Appointment [facility] [address] - [address] [facility] [address] [place] [address] Neptali Bergman MD [address] [place] [address] 05/14/2025 10:00 AM EST Appointment [facility] - [address] [facility] [address] [place] [address] Neptali Bergman MD [address] [place] [address] 05/14/2025 2:15 PM EST Office Visit [facility] - [address] [place] [address] Neptali Bergman MD [address] [place] [address] documented as of this encounter Visit Diagnoses Not on filedocumented in this encounter Care Teams Burrer Marker Axle Relationship Specialty Start Date End Date Jonas Navas MD [address] [facility] [address] [place] [address] PCP - General Cardiothoracic Surgery 04/15/22 07/23/22 Marcell Uriostegui MD [address] [place] [address] PCP - General Adolescent Medicine 07/24/22 04/05/23 Heidi Rivers APRN 2017 [facility] [address] [place] [address] PCP - General Nurse Practitioner 04/06/23 Neptali Bergman MD [address] [facility] [address] [place] [address] Hematology and Oncology 10/31/24 documented as of this encounter
--- OUTSIDE RECORDS SUMMARY | 2025-04-30 09:26 | XMS_ITS | Encounter Summary ---
Author Organization [employer] ([place], [place], [place], [place], [place]) Address [address] [place] [address] Care Team Providers Care Vocational School Teacher Name Role Phone Jonas Navas MD Primary Care Provider [phone] Marcell Uriostegui MD Primary Care Provider + [phone] Heidi Rivers APRN Primary Care Provider + [phone] Neptali Bergman MD Unavailable [phone] Encounter Details Date Type Department Care Team (Late st Contact Info) Description 05/22/2020 Transcribed Document [facility] Family Medicine [facility] [place] [address] ProviderJennifer MD [address] [place] [address] Social History Tobacco Use Types Packs/Day Years Used Date Smoking Tobacco: Never Assessed Comments Unknown Sex and Gender Information Value Date Recorded Sex Assigned at Not on file Legal Sex Female 1:09 PM CDT Gender Identity Not on file Sexual Orientation Not on file documented as of this encounter Miscellaneous Notes * Cerner Conversion Note - Jennifer Arroyo MD - 05/22/2020 3:21 PM TOOL WORKER Pain Assessment Entered On: 05/22/2020 21:19 EST Performed On: 05/22/2020 21:38 EST by Reji Graves, Rn Intervention Information: oxyCODONE Performed by Reji Graves Rn on 05/22/2020 20:38:00 EST oxyCODONE,5mg Oral,Pain (Mild 1-3) Pain Assessment Pain Assessment : Follow-up assessment Pain Scale Goal : 3 Pain Scale Used : 0-10 Scale Pain Improved by Intervention : No Reji Graves Rn - 05/22/2020 21:19 EST Pain Scale Intensity : 7 Reji Graves Rn - 05/22/2020 21:19 EST Image 4 - Images currently included in the form version of this document have not been included in the text rendition version of the form. Electronically signed by [facility] Conversion [employer] Cerner at 09/10/2022 12:32 AM CDT documented in this encounter Plan of Treatment Upcoming Encounters Date Type Department Care Team (Late st Contact Info) Description 05/14/2025 8:00 AM EST Lab Patient Walk-In [facility] - [address] [place] [address] 05/14/2025 8:30 AM EST Appointment [facility] - [address] [facility] [address] [place] [address] [place] [address] [place] [address] [address] [place] [address] 05/14/2025 10:00 AM EST Appointment [facility] MRI - [facility] [address] [facility] [address] [place] [address] Neptali Bergman MD [address] [place] [address] [address] [place] [address] 05/14/2025 2:15 PM EST Office Visit [facility] - [address] [place] [address] Neptali Bergman MD [address] [place] [address] [address] [place] [address] documented as of this encounter Visit Diagnoses Not on filedocumented in this encounter Care Teams Vocational School Teacher Relationship Specialty Start Date End Date Jonas Navas MD [address] [facility] [address] [place], [place] [id number] PCP - General Cardiothoracic Surgery 04/15/22 07/23/22 Marcell Uriostegui MD [address] [place] [address] [place] [address] PCP - General Adolescent Medicine 07/24/22 04/05/23 Heidi Rivers APRN [address] [place] [address] PCP - General Nurse Practitioner 04/06/23 Neptali Bergman MD [address] [facility] [address] [place] [address] Hematology and Oncology 10/31/24 documented as of this encounter
--- OUTSIDE RECORDS SUMMARY | 2025-04-30 09:26 | XMS_ITS | Encounter Summary ---
Author Organization [employer] ([place], [place], [place], [place], [place]) Address [address] [place] [address] Care Team Providers Care Fulfillment Coordinator Name Role Phone Jonas Navas MD Primary Care Provider [phone] Marcell Uriostegui MD Primary Care Provider + [phone] Heidi Rivesr APRN Primary Care Provider + [phone] Neptali Bergman MD Unavailable [phone] Encounter Details Date Type Department Care Team (Late st Contact Info) Description 05/22/2020 Transcribed Document [facility] [place] Family Medicine [address] [place] [address] ProviderJennifer MD [address] [place] [address] Social History Tobacco Use Types Packs/Day [...] Jennifer Arroyo MD - 05/22/2020 3:21 PM EMT I/99 Pain Assessment Entered On: 05/23/2020 6:15 EST Performed On: 05/23/2020 6:57 EST by Reji Graves, Rn Intervention Information: oxyCODONE Performed by Reji Graves Rn on 05/23/2020 05:57:00 EST oxyCODONE,10mg Oral,Pain (Moderate 4-6) Pain Assessment Pain Assessment : Follow-up assessment Pain Scale Goal : 3 Pain Scale Used : 0-10 Scale Pain Improved by Intervention : Yes Reji Graves Rn - 05/23/2020 6:15 EST Pain Scale Intensity : 4 Reji Graves Rn - 05/23/2020 6:15 EST Image 4 - Images currently included in the form version of this document have not been included in the text rendition version of the form. documented in this encounter Plan of Treatment Upcoming Encounters Date Type Department Care Team (Late st Contact Info) Description 05/14/2025 8:00 AM EST Lab Patient Walk-In [facility] - [address] [place] [address] 05/14/2025 8:30 AM EST Appointment [facility] CT - [facility] [address] [facility] [address] [place] [address] [place] [address] [place] [address] [address] [place] [address] 05/14/2025 10:00 AM EST Appointment [facility] MRI - [facility] [address] [facility] [address] [place] [address] Neptali Bergman MD [address] [place] [address] [address] [place] [address] 05/14/2025 2:15 PM EST Office Visit [facility] - [address] [place] [address] Neptali Bergman MD [address] [place] [address] [address] [place] [address] documented as of this encounter Visit Diagnoses Not on filedocumented in this encounter Care Teams Fulfillment Coordinator Relationship Specialty Start Date End Date Jonas Navas MD [address] [facility] [address] [place], [place] [id number] PCP - General Cardiothoracic Surgery 04/15/22 07/23/22 Marcell Uriostegui MD [address] [place] [address] [place] [address] PCP - General Adolescent Medicine 07/24/22 04/05/23 Heidi Rivers APRN [address] [place] [address] PCP - General Nurse Practitioner 04/06/23 Neptali Bergman MD [address] [facility] [address] [place] [address] Hematology and Oncology 10/31/24 documented as of this encounter
--- OUTSIDE RECORDS SUMMARY | 2025-04-30 09:26 | XMS_ITS | Encounter Summary ---
Author Organization [employer] ([place], [place], [place], [place], [place]) Address [address] [place] [address] Care Team Providers Care Technology Project Manager Name Role Phone Jonas Navas MD Primary Care Provider [phone] Marcell Uriostegui MD Primary Care Provider + [phone] Heidi Rivers APRN Primary Care Provider + [phone] Neptali Bergman MD Unavailable [phone] Encounter Details Date Type Department Care Team (Late st Contact Info) Description 07/21/2019 Transcribed Document [facility] [place] [place] [facility] [address] ProviderJennifer MD [address] [place] [address] Social History Tobacco Use Types Packs/Day Years Used Date Smoking Tobacco: Never Assessed Comments Unknown Sex and Gender Information Value Date Recorded Sex Assigned at Not on file Legal Sex Female 1:09 PM CDT Gender Identity Not on file Sexual Orientation Not on file documented as of this encounter Miscellaneous Notes * Cerner Conversion Note - Jennifer ProviderMD - 07/21/2019 1:39 PM ETCHER APPRENTICE PHOTOENGRAVING UM Authorization Entered On: 07/21/2019 13:51 EST Performed On: 07/21/2019 13:39 EST by NORI VALVERDE RN-Utilization Review Primary Insurance Authorization Authorization and Policy Numbers : Insurance 1 Health Plan: [employer] Policy Number: [id number] Authorization Number: [id number] Insurance Primary Name : [facility] Policy Number: [id number] Authorization Status-Primary : Admit approved Authorization Number-Primary : [id number] Number of Days Authorized-Primary : 3 Day(s) Authorized Service Begin Date-Primary : 07/25/2019 EST Authorized Service End Date-Primary : 07/28/2019 EST Authorization Comments-Primary : [place] approved per availity for 4 days inpt Historical Authorization Comments-Primary : No Authorization Comments Found NORI VALVERDE RN-Utilization Review - 07/21/2019 13:39 EST documented in this encounter Plan of Treatment Upcoming Encounters Date Type Department Care Team (Late st Contact Info) Description 05/14/2025 8:00 AM EST Lab Patient Walk-In [facility] - [address] [place] [address] 05/14/2025 8:30 AM EST Appointment [facility] - [address] [facility] [address] [place] [address] Neptali Bergman MD [facility] [address] [place] [address] 05/14/2025 10:00 AM EST Appointment [facility] MRI - [address] [facility] [address] [place] [address] Neptali Bergman MD [facility] [address] [place] [address] 05/14/2025 2:15 PM EST Office Visit [facility] - [address] [place] [address] Neptali Bergman MD [facility] [address] [place] [address] documented as of this encounter Visit Diagnoses Not on filedocumented in this encounter Care Teams Technology Project Manager Relationship Specialty Start Date End Date Jonas Navas MD [address] [facility] [address] [place] [address] PCP - General Cardiothoracic Surgery 04/15/22 07/23/22 Marcell Uriostegui MD [address] [facility] [address] [place] [address] PCP - General Adolescent Medicine 07/24/22 04/05/23 Heidi Rivers APRN [address] [facility] [address] [place], [place] [id number] PCP - General Nurse Practitioner 04/06/23 Neptali Bergman MD [address] [facility] [address] [place] [address] Hematology and Oncology 10/31/24 documented as of this encounter
--- OUTSIDE RECORDS SUMMARY | 2025-04-30 09:26 | XMS_ITS | Encounter Summary ---
Author Organization [employer] ([place], [place], [place], [place], [place]) Address [address] [place] [address] Care Team Providers Care Process Controller Name Role Phone Jonas Navas MD Primary Care Provider [phone] Marcell Uriostegui MD Primary Care Provider + [phone] Heidi Rivers APRN Primary Care Provider + [phone] Neptali Bergman MD Unavailable [phone] Encounter Details Date Type Department Care Team (Late st Contact Info) Description 07/20/2019 Transcribed Document [facility] Family Medicine [facility] [place] [address] ProviderJennifer MD [address] [place] [address] Social History Tobacco Use Types Packs/Day Years Used Date Smoking Tobacco: Never Assessed Comments Unknown Sex and Gender Information Value Date Recorded Sex Assigned at Not on file Legal Sex Female 1:09 PM CDT Gender Identity Not on file Sexual Orientation Not on file documented as of this encounter Miscellaneous Notes * Cerner Conversion Note - Jennifer ProviderMD - 07/20/2019 1:00 PM ECHOCARDIOGRAPHY TECH PAT Adult Entered On: 07/20/2019 13:08 EST Performed On: 07/20/2019 13:00 EST by STEWART WILD RN Vital Measurements Temperature Source : Temporal artery scanning Temperature Mode : Fahrenheit Temperature, Fahrenheit : 98.2 Deg F Clinical Temperature, C : 36.8 Deg C Pulse Method : Pulse Oximetry Peripheral Pulse Rate : 80 bpm Respiratory Rate : 20 Breaths/Min Blood Pressure Location : Arm, right upper Blood Pressure Source : Non-Invasive BP Device Blood Pressure Position : Sitting Systolic Blood Pressure : 112 mmHg Diastolic Blood Pressure : 67 mmHg Oxygen Saturation : 92 % (LOW) Oxygen Therapy Mode : Room air STEWART WILD RN - 07/20/2019 17:18 EST Height and Weight, Clinical Dosing Height, Feet : 5 ft(Converted to: 152 cm, 60 Inch) Height, Inches : 2 Inch(Converted to: 0 ft 2 Inch, 5.08 cm) Clinical Height : 157.48 cm Weight Source : Standing scale Weight Entry Format : Strawberry Clinical Dosing Weight : 72.39 kg Weight, Pounds : 159 lb Weight, Ounces : 4 oz Body Surface Area (BSA) : 1.74 m2 Body Mass Index : 29.2 kg/m2 (HI) [place] Body Weight : 50 kg STEWART WILD RN - 07/20/2019 17:18 EST Height Source : Measured Height Entry Format : Strawberry STEWART WILD RN - 07/20/2019 13:00 EST Health Histories Smoking Status : 5-9 cigarettes (between 1/4 to 1/2 pack)/day in last 30 days Smokeless Tobacco Status : Never Desires Tobacco Cessation Medication : Yes STEWART WILD RN - 07/20/2019 13:00 EST Social History (As Of: 07/25/2019 06:50:41 EST) Tobacco: 10 or more cigarettes (1/2 pack or more)/day in last 30 days Smoking Status. Never Smokeless Tobacco Status. Years of Use: 42. Packs/Tins Daily: 1. Last Used: 07/10/19. (Last Updated: 07/10/2019 08:50:14 EST by AMARILYS DIAZ RN) 5-9 cigarettes (between 1/4 to 1/2 pack)/day in last 30 days Smoking Status. Never Smokeless Tobacco Status. (Last Updated: 07/20/2019 13:01:44 EST by STEWART WILD RN) Alcohol: Alcohol Use History No. (Last Updated: [...] by STEWART WILD, RN) Infectious Disease History Physical contact outside [place] in the last 30 days : No Infectious Disease History : Chicken pox/Shingles, Measles, Mumps, Pertussis (Whooping cough) Active Surveillance Screen Assessment : Patient does not meet any of above criteria Active Surveillance Screen Negative : Yes Exposure to Contagious Illness : No Tuberculosis Symptoms : None STEWART WILD RN - 07/20/2019 13:00 EST Anesthesia/Transfusion History Family History of Anesthesia Reaction : No prior transfusion(s) Blood Transfusion Acceptable to Patient : Yes Transfusion History : Prior anesthesia without reaction Family History of Anesthesia Reaction : None STEWART WILD RN - 07/20/2019 13:00 EST Functional Assessment Functional ADL Evaluation Index EBN Bathing : Independent (2) Dressing : Independent (2) Toileting : Independent (2) Transferring Bed or Chair : Independent (2) Continence : Independent (2) Feeding : Independent (2) STEWART WILD RN - 07/20/2019 13:00 EST ADL Index Score : 12 STEWART WILD RN - 07/20/2019 13:00 EST Advance Directive Copy Advance Directive Verified/on Chart : Yes Date Hospital Obtained Advance Directive : 07/25/2019 EST BRINA CACERES - 07/25/2019 6:50 EST Patient has Advance Directive *Q : Yes, Advance Directive not with the patient Request Family/Rep to Provide Copy of AD : Yes Advance Directive Type : Living will, Medical durable power of consumer attorney (proxy) STEWART WILD RN - 07/20/2019 13:00 EST Spiritual/Cultural Needs Any Spiritual/Cultural Needs or Requests : Yes Spiritual/Cultural Needs Comment : surgery on WedJuly 24 in at 0530 am Spiritual/Cult Concerns/Desires/Needs : Prayer Spiritual/Cultural Needs Comment : surgery on Tue March 3rd in at 0530 am STEWART WILD RN - 07/20/2019 13:00 EST [place] Suicide Severity Rating Scale (C-SSRS) CSSRS Past Month Wish to be : No CSSRS Past Month Suicidal Thoughts : No CSSRS Lifetime Suicide Behavior : No Suicide Severity Rating Score : 0 Suicide Severity Rating : No Additional Care Required at this time STEWART WILD RN - 07/20/2019 13:00 EST Psychosocial History Currently in Unsafe Situation : No STEWART WILD RN - 07/20/2019 13:00 EST Education Topics, Periop Preadmission Perioperative Education Grid Arrival Time/Place : Verbalizes understanding Central Lines : Verbalizes understanding CHG Preoperative Bathing/Cloths : Verbalizes understanding Falls : Verbalizes understanding Incentive Spirometry : Verbalizes understanding Infection Control : Verbalizes understanding IV's : Verbalizes understanding NPO Status/Directions : Verbalizes understanding Pain Management : Verbalizes understanding Preprocedure Preparations : Verbalizes understanding Preprocedure Tests/Labs : Verbalizes understanding Remove Body Piercings : Verbalizes understanding Take/Hold Medications Pre-Procedure : Verbalizes understanding STEWART WILD RN - 07/20/2019 13:00 EST General Info Arrived From : Home Mode of Arrival on Unit : Ambulatory Legal Guardian : Spouse Support Person/Patient Polymer Materials Consultant : Yes Support Person/Pt Rep Name : Ti yeh - spouse Support Person/Pt Rep Contact Information : [phone] Want Family/Rep/Phys Notified of Admit : No Emergency Contact #1 : Ti Yeh Emergency Contact #1 Emergency Contact #1 Relationship : spouse Emergency Contact #2 : na Emergency Contact #2 Phone Number : na Emergency Contact #2 Relationship : na Information Obtained From : Patient Primary Language : Uzbek Communication Barrier : None Objects to Sharing Info w Family : No Clinical Trials Participant *Q : None CTP, None *Q : Yes STEWART WILD RN - 07/20/2019 13:00 EST Quinten Scale Quinten Sensory Perception : No impairment Quinten Moisture : Rarely moist Quinten Activity : Walks frequently Quinten Mobility : No limitation Quinten Nutrition : Adequate Quinten Friction and Shear : No apparent problem Quinten Score : 22 STEWART WILD RN - 07/20/2019 13:00 EST Sleep Apnea Risk Assmt BiPAP/CPAP Ordered for Home Use : Yes Hx of Obstructive Sleep Apnea Diagnosis : Yes BiPAP/CPAP Used at Home : No Reason BiPAP/CPAP Not Used at Home : can't tolerate Age over 50 Years Old : Yes Gender Male : No STEWART WILD, RN - 07/20/2019 13:00 EST Electronically signed by [facility], [facility] Conversion Safety Instruction Police Officer Cerner at 09/10/2022 12:44 AM CDT documented in this encounter Plan of Treatment Upcoming Encounters Date Type Department Care Team (Late st Contact Info) Description 05/14/2025 8:00 AM EST Lab Patient Walk-In [facility] - [address] [place] [address] 05/14/2025 8:30 AM EST Appointment [facility] CT - [address] [facility] [address] [place] [address] Neptali Bergman MD [address] [place] [address] [address] [place] [address] 05/14/2025 10:00 AM EST Appointment [facility] MRI - [address] [facility] [address] [place] [address] Neptali Bergman MD [address] [place] [address] [address] [place] [address] 05/14/2025 2:15 PM EST Office Visit [facility] - [address] [place] [address] Neptali Bergman MD [address] [place] [address] [address] [place] [address] documented as of this encounter Visit Diagnoses Not on filedocumented in this encounter Care Teams Process Controller Relationship Specialty Start Date End Date Jonas Navas MD [address] [facility] [address] [place] [id number] PCP - General Cardiothoracic Surgery 04/15/22 07/23/22 Marcell Uriostegui MD [address] [place] [address] PCP - General Adolescent Medicine 07/24/22 04/05/23 Heidi Rivers, RIM TURNING MACHINE OPERATOR [address] [place] [address] PCP - General Nurse Practitioner 04/06/23 Neptali Bergman MD [address] [facility] [address] [place] [address] Hematology and Oncology 10/31/24 documented as of this encounter
--- OUTSIDE RECORDS SUMMARY | 2025-04-30 09:26 | XMS_ITS | Encounter Summary ---
Author Organization [employer] ([place], [place], [place], [place], [place]) Address [address] [place] [address] Care Team Providers Care Air Cargo Specialist Name Role Phone Jonas Navas MD Primary Care Provider [phone] Marcell Uriostegui MD Primary Care Provider + [phone] Heidi Rivers APRN Primary Care Provider + [phone] Neptali Bergman MD Unavailable [phone] Encounter Details Date Type Department Care Team (Late st Contact Info) Description 05/22/2020 Transcribed Document [facility] [place] Family Medicine [address] [place] [address] ProviderJennifer MD [address] [place] [address] Social History Tobacco Use Types Packs/Day Years Used Date Smoking Tobacco: Never Assessed Comments Unknown Sex and Gender Information Value Date Recorded Sex Assigned at Not on file Legal Sex Female 1:09 PM CDT Gender Identity Not on file Sexual Orientation Not on file documented as of this encounter Miscellaneous Notes * Cerner Conversion Note - Jennifer ProviderMD - 05/22/2020 2:00 AM EYE GLASS FRAME POLISHER Spiritual Care Assessment Entered On: 05/22/2020 11:34 EST Performed On: 05/22/2020 11:28 EST by LINSEY ROSALES General Information Referred by : Patient Referral Reason Comment : PreSurgery prayer Ministry Provided to : Patient Sabianism Preference : [facility] ([employer]) LINSEY ROSALES - 05/22/2020 11:33 EST Interventions Emotional Support : Empathic/Engaged listening, Feelings expressed Spiritual and Sabianism : Prayer shared, Spiritual/Sabianism support provided LISNEY ROSALES - 05/22/2020 11:33 EST Outcomes Affect/Behavior Changed : Encouraged Appreciation Expressed : Yes Thoughts, Feelings and Emotions Exp. : Yes LINSEY ROSALES - 05/22/2020 11:33 EST documented in this encounter Plan of Treatment Upcoming Encounters Date Type Department Care Team (Late st Contact Info) Description 05/14/2025 8:00 AM EST Lab Patient Walk-In [place] [facility] - [place] [place] [address] 05/14/2025 8:30 AM EST Appointment [facility] [address] [place] [address] Neptali Bergman MD [address] [place] [address] [address] [place] [address] 05/14/2025 10:00 AM EST Appointment [facility] MRI - [address] [place] [address] Neptali Bergman MD [address] [place] [address] [address] [place] [address] 05/14/2025 2:15 PM EST Office Visit [place] [facility] - [place] [address] [place] [address] Neptali Bergman MD [address] [place] [address] [address] [place] [address] documented as of this encounter Visit Diagnoses Not on filedocumented in this encounter Care Teams Air Cargo Specialist Relationship Specialty Start Date End Date Jonas Navas MD [address] [facility] [address] [place] [id number] PCP - General Cardiothoracic Surgery 04/15/22 07/23/22 Marcell Uriostegui MD [address] [place] [address] [place] [address] PCP - General Adolescent Medicine 07/24/22 04/05/23 Heidi Rivers APRN [address] [place] [address] PCP - General Nurse Practitioner 04/06/23 Neptali Bergman MD [address] [facility] [address] [place] [address] Hematology and Oncology 10/31/24 documented as of this encounter
--- OUTSIDE RECORDS SUMMARY | 2025-04-30 09:26 | XMS_ITS | Encounter Summary ---
Author Organization [employer] ([place], [place], [place], [place], [place]) Address [address] [place] [address] Care Team Providers Care Guard Chief Name Role Phone Jonas Navas MD Primary Care Provider [phone] Marcell Uriostegui MD Primary Care Provider + [phone] Heidi Rivers APRN Primary Care Provider + [phone] Neptali Bergman MD Unavailable [phone] Encounter Details Date Type Department Care Team (Late st Contact Info) Description 07/10/2019 Transcribed Document [facility] [place] [address] [place] [address] ProviderJennifer MD [address] [place] [address] Social History Tobacco Use Types Packs/Day Years Used Date Smoking Tobacco: Never Assessed Comments Unknown Sex and Gender Information Value Date Recorded Sex Assigned at Not on file Legal Sex Female 1:09 PM CDT Gender Identity Not on file Sexual Orientation Not on file documented as of this encounter Miscellaneous Notes * Cerner Conversion Note - Jennifer ProviderMD - 07/10/2019 10:36 AM SUB 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 Will obtain f/u CXR EBL: Minimal Specimen(s) Removed: FNAs and cores. Pathology is pending. Full report to follow. documented in this encounter Plan of Treatment Upcoming Encounters Date Type Department Care Team (Late st Contact Info) Description 05/14/2025 8:00 AM EST Lab Patient Walk-In [place] [facility] - [place] [address] [place] [address] 05/14/2025 8:30 AM EST Appointment [facility] [address] - [address] [facility] [address] [place] [address] Neptali Bergman MD [address] [place] [address] [address] [place] [address] 05/14/2025 10:00 AM EST Appointment [facility] MRI - [address] [facility] [address] [place] [address] Neptali Bergman MD [address] [place] [address] [address] [place] [address] 05/14/2025 2:15 PM EST Office Visit [place] [facility] - [place] [place] [address] Neptali Bergman MD [address] [place] [address] [address] [place] [address] documented as of this encounter Visit Diagnoses Not on filedocumented in this encounter Care Teams Guard Chief Relationship Specialty Start Date End Date Jonas Navas MD [address] [facility] [address] [place] [address] PCP - General Cardiothoracic Surgery 04/15/22 07/23/22 Marcell Uriostegui MD [address] [place] [address] PCP - General Adolescent Medicine 07/24/22 04/05/23 Heidi Rivers APRN [address] [facility] [address] [place] [address] PCP - General Nurse Practitioner 04/06/23 Neptali Bergman MD [address] [facility] [address] [place] [address] Hematology and Oncology 10/31/24 documented as of this encounter
--- OUTSIDE RECORDS SUMMARY | 2025-04-30 09:26 | XMS_ITS | Encounter Summary ---
Author Organization [employer] ([place], [place], [place], [place], [place]) Address [address] [place] [address] Care Team Providers Care Telecommunications Field Technician Name Role Phone Jonas Navas MD Primary Care Provider [phone] Marcell Uriostegui MD Primary Care Provider + [phone] Heidi Rivers APRN Primary Care Provider + [phone] Neptali Bergman MD Unavailable [phone] Encounter Details Date Type Department Care Team (Late st Contact Info) Description 05/22/2020 Transcribed Document [facility] [place] [facility] [place] [address] ProviderJennifer MD [address] [place] [address] Social History Tobacco Use Types Packs/Day Years Used Date Smoking Tobacco: Never Assessed Comments Unknown Sex and Gender Information Value Date Recorded Sex Assigned at Not on file Legal Sex Female 1:09 PM CDT Gender Identity Not on file Sexual Orientation Not on file documented as of this encounter Miscellaneous Notes * Cerner Conversion Note - Historical ProviderMD - 05/22/2020 3:57 PM IMPORT DISPATCHER Admission History, Adult Entered On: 05/22/2020 18:03 EST Performed On: 05/22/2020 18:00 EST by LATESHA KIM Advance Directive Patient has Advance Directive *Q : Yes, Advance Directive on file Advance Directive Type : Living will, Medical durable power of contracts attorney (proxy) Medical Durable Power of Human Resources Designate Name : Yayo Yeh Copy Advance Directive Verified/on Chart : Yes LATESHA KIM 05/22/2020 18:01 EST Anesthesia/Transfusion History Family History of Anesthesia Reaction : No prior transfusion(s) Blood Transfusion Acceptable to Patient : Yes Transfusion History : Prior anesthesia without reaction Family History of Anesthesia Reaction : None LATESHA KIM - 05/22/2020 18:01 EST Anticipated Discharge Needs Discharge To, Anticipated : Home JAMAR KIMANDRA 05/22/2020 18:01 EST Education Topics, Admission Orientation DCP GENERIC CODE Advance Directives : Verbalizes understanding Allergy Band Applied : Verbalizes understanding Bed Control : Verbalizes understanding Call Light : Verbalizes understanding Diet/Room Service : Verbalizes understanding Fall Prevention : Verbalizes understanding Hand Hygiene : Verbalizes understanding Healthcare Provider Visit : Verbalizes understanding Isolation Precautions : Verbalizes understanding Orientation to Room/Bathroom : Verbalizes understanding Patient Bill of Rights : Verbalizes understanding Patient Safety : Verbalizes understanding Personal Privacy Code : Verbalizes understanding Rapid Response Initiated by Patient/Family : Verbalizes understanding Rounding : Verbalizes understanding Skin Precautions : Verbalizes understanding Smoking Policy : Verbalizes understanding Visiting Policy : Verbalizes understanding JULIO LATESHA - 05/22/2020 18:01 EST Functional Assessment Living Situation : Home Patient Lives With : Spouse Current Home Treatments : Blood glucose monitoring JAMAR KIMANDRA 05/22/2020 18:01 EST General Info Preferred Name : Alejandrina Arrived From : Home Mode of Arrival on Unit : Ambulatory Legal Guardian : Spouse Legal Guardian : No Support Person/Patient Senior Accounts Payable Specialist : Yes Support Person/Pt Rep Name : Ti Yeh - spouse Contact Password : [facility] Support Person/Pt Rep Contact Information : [phone] Want Family/Rep/Phys Notified of Admit : No Emergency Contact #1 : Ti Yeh Emergency Contact #1 ` Emergency Contact #1 Relationship : spouse` Emergency Contact #2 : none` Emergency Contact #2 Phone Number : none` Emergency Contact #2 Relationship : none` Information Obtained From : Patient Primary Language : Comoran Communication Barrier : None Arboriculture Instructor Needed : No JAMAR KIMANA LAURA Blake 05/22/2020 18:01 EST Fall Risk Scales ABCs Fall Injury Risk Identification : Bones, Surgery ABC Fall Injury Risk : Moderate to high injury risk MUNOZ Hx Falls Immediate/Within 3 Months : No Munoz Secondary Diagnosis : Yes MUNOZ Use of Ambulatory Aid : Bed rest/Nurse assist MUNOZ IV Therapy or IV Access : Yes Munoz Gait/Transferring : Normal, bedrest, immobile Munoz Mental Status : Oriented to own ability Munoz Fall Risk Score : 35 MUNOZ Fall Scale Risk Level : 25-45 Medium Risk [place] Fall Interventions : Adequate lighting, Assistive devices within reach, Bed in low position, Call device within reach, Fall prevention handout/education per facility policy, Frequent orientation to call device, Frequent orientation to surroundings, Hourly comfort/safety rounds, Non-slip footwear, Personal items within reach, Reinforced to call for assistance before getting out of bed, Room free of clutter/spills, Upper side-rails up, Wheels locked, Wires/Cords secured Fall Moderate to High Risk Interventions : Other: bed alarm set at family request, they state she can be impulsive at times KIM LATESHA - 05/22/2020 20:11 EST Health Histories Smoking Status : Former smoker, quit more than 30 days ago Smokeless Tobacco Status : Never Implant/Device Type, Staff Development Educator and Model : none LATESHA KIM - 05/22/2020 20:11 EST Social History (As Of: 05/22/2020 20:14:56 EST) Tobacco: Former smoker, quit more than 30 days ago Smoking Status. Never Smokeless Tobacco Status. Last Used: 07-24-2019. (Last Updated: 03/26/2020 10:10:57 EST by Heidi Zamora, Ashley) Former smoker, quit more than 30 days ago Smoking Status. Never Smokeless Tobacco Status. None Smokeless Tobacco Use History. Last Used: quit in July of this year when I had my lung cancer surgery. . Second Hand Smoke Exposure: No. (Last Updated: 05/15/2020 10:48:03 EST by Olvin Leach, Rn) Alcohol: Alcohol Use History No. (Last Updated: 07/20/2019 13:02:33 EST by STEWART WILD, ASHLEY) Alcohol Use History Yes. Use in Last 12 Months: Yes. Alcohol Use Frequency Monthly. Alcohol Use Comment probably once a month . (Last Updated: 05/15/2020 10:48:03 EST by Olvin Leach, Rn) Substance Abuse: Drug Use Hx: No. Use in Last 12 Months: No. (Last Updated: 07/20/2019 13:02:39 EST by STEWART WILD RN) Drug Use Hx: No. Use in Last 12 Months: No. (Last Updated: 05/15/2020 10:48:03 EST by Olvin Leach, Rn) Home/Environment: Lives with Spouse. Living situation: Home/Independent. Home equipment: Glucose monitoring. (Last Updated: 07/20/2019 13:03:10 EST by STEWART WILD RN) Employment/School: Retired (Last Updated: 07/20/2019 13:03:15 EST by STEWART WILD RN) Height and Weight, Clinical Dosing Height Source : Measured Height Entry Format : [place] Height, Feet : 0 ft(Converted to: 0 cm, 0 Inch) Height, Inches : 61 Inch(Converted to: 5 ft 1 Inch, 154.94 cm) Clinical Height : 154.94 cm Weight Source : Standing scale Weight Entry Format : [place] Clinical Dosing Weight : 79.09 kg Weight, Pounds : 174 lb Body Surface Area (BSA) : 1.78 m2 Body Mass Index : 32.9 kg/m2 (HI) [place] Body Weight : 47 kg LATESHA KIM - 05/22/2020 20:11 EST Infectious Disease History Has the patient ever been tested for COVID-19? : Yes, Patient stated results Negative Where was the COVID-19 Testing completed? : [facility] Where are the test results? : In EMR Results Date of COVID-19 test known? : Yes Date of COVID-19 Test : 05/20/2020 EST Does patient have symptoms of COVID-19? : No COVID19 Screening : No Experiencing Infectious Disease Symptoms : No symptoms Physical contact outside [place] in the last 30 days : No Infectious Disease History : Chicken pox/Shingles, Measles, Mumps, Pertussis (Whooping cough) Tuberculosis Symptoms : None LATESHA KIM - 05/22/2020 20:11 EST Tetanus Immunization Status Previous Tetanus Immunizations : No qualifying data available. Tetanus Immunization : Unknown LATESHA KIM - 05/22/2020 20:11 EST Influenza Vaccine Asmt, Adult Previous Vaccines from Immunization Schedule : No qualifying data available. Influenza Immunization, Current Season : Yes Influenza Immunization Date : 03/22/2020 EDT LATESHA KIM - 05/22/2020 20:11 EST Pneumococcal Vaccine Previous Vaccines from Immunization Schedule : No qualifying data available. Pneumonia Immunization Received : No Pneumococcal Risk Assessment < Age 65 : Chronic pulmonary disease (e.g., COPD, emphysema, asthma) Pneumococcal Vaccine Contraindications : Currently receiving chemotherapy/radiation or less than 2 weeks prior JAMAR KIMANDRA - 05/22/2020 20:11 EST Order Details Patient Needs Meds Crushed/Liquid : No LATESHA KIM 05/22/2020 20:11 EST Nutrition History Eating Poorly Due to Decreased Appetite : No Unplanned Weight Loss in Past 3-6 Months : No Malnutrition Screening Tool Total(mal) : 0 Malnutrition Screening Tool Risk Level : Patient not at risk KIM LATESHA 05/22/2020 20:11 EST [place] Suicide Severity Rating Scale (C-SSRS) CSSRS Past Month Wish to be : No CSSRS Past Month Suicidal Thoughts : No CSSRS Lifetime Suicide Behavior : No Suicide Severity Rating Score : 0 Suicide Severity Rating : No Additional Care Required at this time KIM LATESHA 05/22/2020 20:11 EST Psychosocial History Currently in Unsafe Situation : No KIMLATESHA DOMINGO 05/22/2020 20:11 EST Sleep Apnea Risk Assmt BiPAP/CPAP Ordered for Home Use : Yes Hx of Obstructive Sleep Apnea Diagnosis : Yes BiPAP/CPAP Used at Home : No Reason BiPAP/CPAP Not Used at Home : I'm claustrophobic and that thing drives me crazy. Age over 50 Years Old : Yes Gender Male : No LATESHA KIM - 05/22/2020 20:11 EST Valuables and Belongings Valuables and Belongings : Clothing, Jewelry Clothing : Common streetwear Clothing Disposition : Bedside Jewelry : Ring Jewelry Disposition : Other: took home with him JULIO LATESHA - 05/22/2020 20:11 EST Electronically signed by Kolby Catalan Conversion Pockets And Pieces Necktie Operator Cerner at 09/10/2022 12:40 AM CDT documented in this encounter Plan of Treatment Upcoming Encounters Date Type Department Care Team (Late st Contact Info) Description 05/14/2025 8:00 AM EST Lab Patient Walk-In [facility] - [place] [address] [place] [address] 05/14/2025 8:30 AM EST Appointment [facility] CT [address] [place] [address] Neptali Bergman MD [address] [facility] [address] [place] [address] 05/14/2025 10:00 AM EST Appointment [facility] - [address] [place] [address] [place] [address] [place] [address] [address] [place] [address] 05/14/2025 2:15 PM EST Office Visit [facility] - [address] [place] [address] Neptali Bergman MD [address] [place] [address] [address] [place] [address] documented as of this encounter Visit Diagnoses Not on filedocumented in this encounter Care Teams Telecommunications Field Technician Relationship Specialty Start Date End Date Jonas Navas MD [address] [facility] [address] [place], [place] [id number] PCP - General Cardiothoracic Surgery 04/15/22 07/23/22 Marcell Uriostegui MD [address] [facility] [address] [place] [address] PCP - General Adolescent Medicine 07/24/22 04/05/23 Heidi Rivers APRN [address] [facility] [address] [place] [address] PCP - General Nurse Practitioner 04/06/23 Neptali Bergman MD [address] [place] [address] [address] [place] [address] Hematology and Oncology 10/31/24 documented as of this encounter
--- OUTSIDE RECORDS SUMMARY | 2025-04-30 09:26 | XMS_ITS | Encounter Summary ---
Author Organization [employer] ([place], [place], [place], [place], [place]) Address [address] [place] [address] Care Team Providers Care Steel Welder Name Role Phone Jonas Navas MD Primary Care Provider [phone] Marcell Uriostegui MD Primary Care Provider + [phone] Heidi Rivers APRN Primary Care Provider + [phone] Neptali Bergman MD Unavailable [phone] Encounter Details Date Type Department Care Team (Late st Contact Info) Description 05/23/2020 Transcribed Document [facility] [place] [address] [place] [address] ProviderJennifer MD [address] [place] [address] Social History Tobacco Use Types Packs/Day Years Used Date Smoking Tobacco: Never Assessed Comments Unknown Sex and Gender Information Value Date Recorded Sex Assigned at Not on file Legal Sex Female 1:09 PM CDT Gender Identity Not on file Sexual Orientation Not on file documented as of this encounter Miscellaneous Notes * Cerner Conversion Note - Jennifer Arroyo MD - 05/23/2020 12:51 PM FINAL RAIL CUTTER Patient Education Materials Follows: Spinal Fusion, Adult, Care After This sheet gives you information about how to care for yourself after your procedure. Your doctor may also give you more specific instructions. If you have problems or questions, contact your doctor. Follow these instructions at home: Medicines ??? Take uauw-wnc-ufurttr and prescription medicines only as told by your doctor. These include any medicines for pain or blood-thinning medicines (anticoagulants). ??? If you were prescribed an antibiotic medicine, take it as told by your doctor. Do not stop taking the antibiotic even if you start to feel better. ??? Do not drive for 24 hours if you were given a medicine to help you relax (sedative) during your procedure. ??? Do not drive or use heavy machinery while taking prescription pain medicine. If you have a brace: ??? Wear the brace as told by your doctor. Take it off only as told by your doctor. ??? Keep the brace clean. Managing pain, stiffness, and swelling ??? If directed, put ice on the surgery area: ? If you have a removable brace, take it off as told by your doctor. ? Put ice in a plastic bag. ? Place a towel between your skin and the bag. ? Leave the ice on for 20 minutes, 2?3 times a day. Surgery cut care ??? Follow instructions from your doctor about how to take care of your cut from surgery (incision). Make sure you: ? Wash your hands with soap and water before you change your bandage (dressing). If you cannot use soap and water, use hand certified master locksmith. ? Change your bandage as told by [...] says it is okay. ??? Keep your cut from surgery clean and dry. ? Do not take baths, swim, or use a hot tub until your doctor says it is okay. ? Ask your doctor if you can take showers. You may only be allowed to take sponge baths. ??? Every day, check your cut from surgery and the area around it for: ? More redness, swelling, or pain. ? Fluid or blood. ? Warmth. ? Pus or a bad smell. ??? If you have a drain tube, follow instructions from your doctor about caring for it. Do not take out the drain tube or any bandages unless your doctor says it is okay. Physical activity ??? Rest and protect your back as much as possible. ??? Follow instructions from your doctor about how to move. Use good posture to help your spine heal. ??? Do not lift anything that is heavier than 8 lb (3.6 kg), or the limit that you are told, until your doctor says that it is safe. ??? Do not twist or bend at the waist until your doctor says it is okay. ??? It is best if you: ? Do not make pushing and pulling motions. ? Do not sit or lie down in the same position for a long time. ? Do not raise your hands or arms above your head. ??? Return to your normal activities as told by your doctor. Ask your doctor what activities are safe for you. Rest and protect your back as much as you can. ??? Do not start to exercise until your doctor says it is okay. Ask your doctor what kinds of exercise you can do to make your back stronger. General instructions ??? To prevent blood clots and lessen swelling in your legs: ? Wear compression stockings as told. ? Walk one or more times every few hours as told by your doctor. ??? Do not use any products that contain nicotine or tobacco, such as cigarettes and e-cigarettes. These can delay bone healing. If you need help quitting, ask your doctor. ??? To prevent or treat constipation while you are taking prescription pain medicine, your doctor may suggest that you: ? Drink enough fluid to keep your pee (urine) pale yellow. ? Take lypy-iyp-afxibvr or prescription medicines. ? Eat foods that are high in fiber. These include fresh fruits and vegetables, whole grains, and beans. ? Limit foods that are high in fat and processed sugars, such as fried and sweet foods. ??? Keep all follow-up visits as told by your doctor. This is important. Contact a doctor if: ??? Your pain gets worse. ??? Your medicine does not help your pain. ??? Your legs or feet get painful or swollen. ??? Your cut from surgery is more red, swollen, or painful. ??? Your cut from surgery feels warm to the touch. ??? You have: ? Fluid or blood coming from your cut from surgery. ? Pus or a bad smell coming from your cut from surgery. ? A fever. ? Weakness or loss of feeling (numbness) in your legs that is new or getting worse. ? Trouble controlling when you pee (urinate) or poop (have a bowel movement). ??? You feel sick to your stomach (nauseous). ??? You throw up (vomit). Get help right away if: ??? Your pain is very bad. ??? You have chest pain. ??? You have trouble breathing. ??? You start to have a cough. These symptoms may be an emergency. Do not wait to see if the symptoms will go away. Get medical help right away. Call your local emergency services (911 in the [place] Do not drive yourself to the hospital. Summary ??? After the procedure, it is common to have pain in your back and pain by your surgery cut(s). ??? Icing and pain medicines may help to control the pain. Follow directions from your doctor. ??? Rest and protect your back as much as possible. Do not twist or bend at the waist. ??? Get up and walk one or more times every few hours as told by your doctor. This information is not intended to replace advice given to you by your health care provider. Make sure you discuss any questions you have with your health care provider. Document Released: 09/03/2011 Document Revised: 08/31/2019 Document Reviewed: 08/24/2017 [employer] Patient Education ? 2019 [employer] documented in this encounter Plan of Treatment Upcoming Encounters Date Type Department Care Team (Late st Contact Info) Description 05/14/2025 8:00 AM EST Lab [facility] [address] [place] [address] 05/14/2025 8:30 AM EST Appointment [facility] [address] [place] [address] Neptali Bergman MD [address] [place] [address] 05/14/2025 10:00 AM EST Appointment [facility] - [address] [place] [address] Neptali Bergman MD [address] [facility] [address] [place] [address] 05/14/2025 2:15 PM EST Office Visit [facility] - [place] [address] [place] [address] [address] [place] [address] Neptali Bergman MD [address] [facility] [address] [place] [address] documented as of this encounter Visit Diagnoses Not on filedocumented in this encounter Care Teams Steel Welder Relationship Specialty Start Date End Date Jonas Navas MD [address] [facility] [address] [place] [address] PCP - General Cardiothoracic Surgery 04/15/22 07/23/22 Marcell Uriostegui MD [address] [place] [address] [place] [address] PCP - General Adolescent Medicine 07/24/22 04/05/23 Heidi Rivers, HEADRIG SAWYER [address] [place] [address] PCP - General Nurse Practitioner 04/06/23 Neptali Bergman MD [address] [facility] [address] [place] [address] Hematology and Oncology 10/31/24 documented as of this encounter
--- OUTSIDE RECORDS SUMMARY | 2025-04-30 09:26 | XMS_ITS | Encounter Summary ---
Author Organization [employer] ([place], [place], [place], [place], [place]) Address [address] [place] [address] Care Team Providers Care Rn Complex Care Name Role Phone Jonas Navas MD Primary Care Provider [phone] Marcell Uriostegui MD Primary Care Provider + [phone] Heidi Rivers APRN Primary Care Provider + [phone] Neptali Bergman MD Unavailable [phone] Encounter Details Date Type Department Care Team (Late st Contact Info) Description 05/23/2020 Transcribed Document [facility] Neurology - [facility] [address] [address] Dexter Mendez MD [address] [place] [address] [address] [place] [address] Social History Tobacco Use Types Packs/Day Years Used Date Smoking Tobacco: Never Assessed Comments Unknown Sex and Gender Information Value Date Recorded Sex Assigned at Not on file Legal Sex Female 1:09 PM CDT Gender Identity Not on file Sexual Orientation Not on file documented as of this encounter Miscellaneous Notes * Cerner Conversion Note - Dexter Mendez MD - 05/23/2020 9:30 AM EST Patient: ALEJANDRINA YEH Age: 64 Years Sex: Female : 1955 Assessment/Plan POD 1 L5-S1 MIS TLIF, h/o metastatic lung ca -pt/ot eval -start sqh for dvt ppx -encouarge is use -medicine following -anticipate dc home this afternoon if doing well, if not then tomorrow. Subjective c/o incisional pain, controlled with meds preop leg pain better has been ambulatory to bathroom +voiding denies cp soa abd pain nv nt Vital Signs T: 36.7 ??C TMIN: 36.4 ??C TMAX: 37.4 ??C HR: 74(Monitored) RR: 16 BP: 100/49 SpO2: 98% HT: 154.94 cm WT: 79.09 kg BMI: 32.9 Physical Exam A&O incision cdi genesisew ayanna nonlabored breathing appropriate documented in this encounter Plan of Treatment Upcoming Encounters Date Type Department Care Team (Late st Contact Info) Description 05/14/2025 8:00 AM EST Lab Patient Walk-In [facility] - [address] [place] [address] 05/14/2025 8:30 AM EST Appointment [facility] - [facility] [address] [facility] [address] [place] [address] Neptali Bergman MD [address] [place] [address] [address] [place] [address] 05/14/2025 10:00 AM EST Appointment [facility] MRI - [facility] [address] [facility] [address] [place] [address] [place] [address] [place] [address] [address] [place] [address] 05/14/2025 2:15 PM EST Office Visit [facility] - [address] [place] [address] Neptali Bergman MD [address] [place] [address] [address] [place] [address] documented as of this encounter Visit Diagnoses Not on filedocumented in this encounter Care Teams Rn Complex Care Relationship Specialty Start Date End Date Jonas Navas MD [address] [facility] [address] [place] [address] PCP - General Cardiothoracic Surgery 04/15/22 07/23/22 Marcell Uriostegui MD [address] [facility] [address] [place] [address] PCP - General Adolescent Medicine 07/24/22 04/05/23 Heidi Rivers APRN [address] [facility] [address] [place] [address] PCP - General Nurse Practitioner 04/06/23 Neptali Bergman MD [address] [facility] [address] [place] [address] Hematology and Oncology 10/31/24 documented as of this encounter
--- OUTSIDE RECORDS SUMMARY | 2025-04-30 09:26 | XMS_ITS | Encounter Summary ---
Author Organization [employer] ([place], [place], [place], [place], [place]) Address [address] [place] [address] Care Team Providers Care Optical Laboratory Mechanic Name Role Phone Jonas Navas MD Primary Care Provider [phone] Marcell Uriostegui MD Primary Care Provider + [phone] Heidi Rivers APRN Primary Care Provider + [phone] Neptali Bergman MD Unavailable [phone] Encounter Details Date Type Department Care Team (Late st Contact Info) Description 05/22/2020 Transcribed Document [facility] Neu[facility] - [facility] [address] [address] Dexter Mendez MD [address] [place] [address] [address] [place] [address] Social History Tobacco Use Types Packs/Day Years Used Date Smoking Tobacco: Never Assessed Comments Unknown Sex and Gender Information Value Date Recorded Sex Assigned at Not on file Legal Sex Female 1:09 PM CDT Gender Identity Not on file Sexual Orientation Not on file documented as of this encounter Miscellaneous Notes * Cerner Conversion Note - Dexter Mendez MD - 05/22/2020 1:45 PM EST Patient: ALEJANDRINA YEH Age: 64 Years Sex: Female : 1955 Chief Complaint low back and left leg pain Primary Care Provider History of Present Illness 64F initially evaluated in the office on 03/21/2020, was found to have L5-S1 spondylolisthesis compressing the exiting nerve roots and subsequent radiculopathy refractory to conservative management. She is here today to have a L5-S1 MIS TLIF as recommended by Dr Mendez. No significant changes in her symptoms since her last office visit. Review of Systems Constitutional: [No fevers, chills, sweats] Eye: [No recent visual problems, eye discharge, eye pain, redness] HEENT: [No ear pain, nasal congestion, sore throat, voice changes] Respiratory: [No shortness of breath, cough, pain on breathing, sputum production] Cardiovascular: [No Chest pain, palpitations, syncope, shortness of breath while laying flat] Gastrointestinal: [No nausea, vomiting, diarrhea, constipation] Genitourinary: [No hematuria, dysuria, incontinence, lesions on genitalia] Yuan/Lymph: [Negative for bruising tendency, swollen lymph glands, nosebleeds, history of anticoagulation] Endocrine: [Negative for excessive thirst, excessive hunger, excessive urination, heat or cold intolerance] Musculoskeletal: [No back pain, neck pain, joint pain, muscle pain, decreased range of motion] Integumentary: [No rash, pruritus, abrasions, lesions] Neurologic: [No weakness, numbness, frequent headaches, tremors, blackouts] Psychiatric: [No anxiety, depression, mood changes, hallucinations] Vital Signs HR: 86(Monitored) RR: 18 BP: 115/62 SpO2: 99% Oxygen Settings (Last) Oxygen Therapy Mode: Room air (05/22/20 10:00:00) Physical Exam nad A&O pupils equal trachea midline mmm nonlabored breathing no edema skin without obvious lesion 5/5 ble silt gi gu deferred appropriate Assessment/Plan 64F with refractory left lumbar radiculopathy and L5-S1 spondylolisthesis Keep npo verfiy consent OR today for L5-S1 MIS TLIF by Dr Mendez Other spondylosis with myelopathy, lumbar region, Other spondylosis with myelopathy, lumbar region VTE Prophylaxis - Medical No VTE Prophylaxis Orders. Problem List/Past Medical History Ongoing Arthritis Back pain CA - Lung cancer adenocarcinoma 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 Claustrophobia Coronary artery disease s/p NM Diabetes mellitus type II Diverticulosis GERD - Gastro-esophageal reflux disease H/O: TIA Hiatal hernia High blood pressure History of obstructive sleep apnea Hyperlipidemia Migraine Seasonal allergies Shortness of breath Sinusitis Sleep apnea no c-pap Historical Pneumonia Procedure/Surgical History EXCISION OF LEFT ADRENAL GLAND, PERC ENDO APPROACH (03/28/2020), LAPAROSCOPY ADRENALECTOMY PRTL/COMPL TABDL (03/28/2020), ROBOTIC ASSISTED PROCEDURE OF TRUNK, PERC ENDO APPROACH (03/28/2020), abdominal wall mass (01/2020), EXCISION OF THORAX LYMPHATIC, OPEN APPROACH (07/25/2019), Lobectomy of upper lobe of left lung (07/25/2019), RESECTION OF LEFT UPPER LUNG LOBE, OPEN APPROACH (07/25/2019), lung biopsy (07/10/2019), Colonoscopy (10/2018), Appendectomy, cardiac cath with angioplasty. Home Medications (8) Active Advair Diskus 250 mcg-50 mcg inhalation powder 1 Puff, Inhalation, BID albuterol 2 puffs, PRN, Inhalation, Q6H ALPRAZolam 0.25 mg, PRN, Oral, At Bedtime aspirin 325 mg, Oral, Daily atorvastatin 40 mg, Oral, At Bedtime fluticasone 50 mcg/inh nasal spray 2 [place], PRN, Nasal, Daily hydroCHLOROthiazide-lisinopril 25 mg-20 mg oral tablet 1 Tab, Oral, Daily omeprazole 20 mg, Oral, Daily Allergies Anoro Ellipta (Chest pain) Corgard (Unknown) Levaquin (Vomiting) Roxicet (Unknown) Stiolto Respimat 10 ACT (Muscle weakness (generalized), Chest pain) dilTIAZem (Unknown) Social History Alcohol Alcohol Use History Yes. Use in Last 12 Months: Yes. Alcohol Use Frequency Monthly. Alcohol Use Comment probably once a month . Alcohol Use History No. Employment/School Retired Home/Environment Lives with Spouse. Living situation: Home/Independent. Home equipment: Glucose monitoring. Substance Abuse Drug Use Hx: No. Use in Last 12 Months: No. Drug Use Hx: No. Use in Last 12 Months: No. Tobacco Former smoker, quit more than 30 days ago Smoking Status. Never Smokeless Tobacco Status. None Smokeless Tobacco Use History. Last Used: quit in July of this year when I had my lung cancer surgery. . Second Hand Smoke Exposure: No. Former smoker, quit more than 30 days ago Smoking Status. Never Smokeless Tobacco Status. Last Used: 07-24-2019. Lab Results Test Name Test Result Date/Time Potassium POC 4.0 mmol/L 05/22/2020 10:50 EST Potassium POC >9.0 mmol/L (Critical) 05/22/2020 10:40 EST Potassium POC >9.0 mmol/L (Critical) 05/22/2020 10:33 EST Glucose POC 126 mg/dL (High) 05/22/2020 10:50 EST Glucose POC 125 mg/dL (High) 05/22/2020 10:40 EST Glucose POC 125 mg/dL (High) 05/22/2020 10:33 EST Additional Documentation Code Status No Code Status Order on Record documented in this encounter Plan of Treatment Upcoming Encounters Date Type Department Care Team (Late st Contact Info) Description 05/14/2025 8:00 AM EST Lab Patient Walk-In [facility] - [address] [place] [address] 05/14/2025 8:30 AM EST Appointment [facility] CT - [address] [facility] [address] [place] [address] Neptali Bergman MD [address] [facility] [address] [place] [address] 05/14/2025 10:00 AM EST Appointment [facility] MRI - [facility] [address] [facility] [address] [place] [address] Neptali Bergman MD [address] [place] [address] 05/14/2025 2:15 PM EST Office Visit [facility] - [address] [place] [address] Neptali Bergman MD [address] [place] [address] documented as of this encounter Visit Diagnoses Not on filedocumented in this encounter Care Teams Optical Laboratory Mechanic Relationship Specialty Start Date End Date Jonas Navas MD [address] [facility] [address] [place] [address] PCP - General Cardiothoracic Surgery 04/15/22 07/23/22 Marcell Uriostegui MD [address] [facility] [address] [place] [address] PCP - General Adolescent Medicine 07/24/22 04/05/23 Heidi Rivers APRN [address] [facility] [address] [place] [address] PCP - General Nurse Practitioner 04/06/23 Neptali Bergman MD [address] [facility] [address] [place] [address] Hematology and Oncology 10/31/24 documented as of this encounter
--- OUTSIDE RECORDS SUMMARY | 2025-04-30 09:26 | XMS_ITS | Encounter Summary ---
Author Organization [employer] ([place], [place], [place], [place], [place]) Address [address] [place] [address] Care Team Providers Care Rotary Cutter Operator Name Role Phone Jonas Navas MD Primary Care Provider [phone] Marcell Uriostegui MD Primary Care Provider [phone] Heidi Rivers APRN Primary Care Provider [phone] Neptali Bergman MD Unavailable [phone] Encounter Details Date Type Department Care Team (Late st Contact Info) Description 05/22/2020 Transcribed Document [facility] [place] [address] [place] [address] ProviderJennifer MD [address] [place] [address] Social History Tobacco Use Types Packs/Day Years Used Date Smoking Tobacco: Never Assessed Comments Unknown Sex and Gender Information Value Date Recorded Sex Assigned at Not on file Legal Sex Female 1:09 PM CDT Gender Identity Not on file Sexual Orientation Not on file documented as of this encounter Miscellaneous Notes * Cerner Conversion Note - Jennifer ProviderMD - 05/22/2020 1:59 PM [facility] Main OR Preop Summary Primary Physician: HEIDY GAYTAN MD-[facility] Finalized Date/Time: 05/22/20 14:46:18 Pt. Name: ALEJANDRINA YEH /Sex: 1955 Female Med Rec #: [id number] Physician: HEIDY GAYTAN MD-[facility] Financial #: [id number] Pt. Type: P Room/Bed: / Admit/Disch: 03/21/20 10:45:00 - Institution: [facility] PreOp Case Times Entry 1 In Preop 05/22/20 09:59:00 Ready for Holding n/a Room Patient Ready for 05/22/20 10:51:00 Surgery Patient Out of Preop 05/22/20 13:25:00 Patient Out of n/a Holding Room Last Modified By: Cesario Arteaga Rn 05/22/20 14:46:15 [facility] PreOp Case Times Audit 05/22/20 14:46:15 Plastic Outfitter: [id number] Modifier: [id number] <+> 1 Patient Out of Preop 05/22/20 10:54:31 Plastic Outfitter: [id number] Modifier: [id number] <+> 1 Patient Ready for Surgery Finalized By: Cesario Arteaga Rn Document Signatures Signed By: Cesario Arteaga Rn 05/22/20 14:46 documented in this encounter Plan of Treatment Upcoming Encounters Date Type Department Care Team (Late st Contact Info) Description 05/14/2025 8:00 AM EST Lab Patient Walk-In [place] [facility] [place] [address] [place] [address] 05/14/2025 8:30 AM EST Appointment [facility] CT - [address] [facility] [address] [place] [address] Neptali Bergman MD [address] [place] [address] [address] [place] [address] 05/14/2025 10:00 AM EST Appointment [facility] [address] [facility] [address] [place] [address] [place] [address] [place] [address] [address] [place] [address] 05/14/2025 2:15 PM EST Office Visit [facility] - [address] [place] [address] [address] [place] [address] Neptali Bergman MD [address] [facility] [address] [place] [address] documented as of this encounter Visit Diagnoses Not on filedocumented in this encounter Care Teams Rotary Cutter Operator Relationship Specialty Start Date End Date Jonas Navas MD [address] [facility] [address] [place] [address] PCP - General Cardiothoracic Surgery 04/15/22 07/23/22 Marcell Uriostegui MD [address] [place], [place] [address] PCP - General Adolescent Medicine 07/24/22 04/05/23 Heidi Rivers, [address] STRE[address] [place] [address] PCP - General Nurse Practitioner 04/06/23 Neptali Bergman MD [address] [facility] [address] [place] [address] Hematology and Oncology 10/31/24 documented as of this encounter
--- OUTSIDE RECORDS SUMMARY | 2025-04-30 09:26 | XMS_ITS | Encounter Summary ---
Author Organization [employer] ([place], [place], [place], [place], [place]) Address [address] [place] [address] Care Team Providers Care Fur Grader Name Role Phone Jonas Navas MD Primary Care Provider [phone] Marcell Uriostegui MD Primary Care Provider + [phone] Heidi Rivers APRN Primary Care Provider + [phone] Lu Bergman MD Unavailable [phone] Encounter Details Date Type Department Care Team (Late st Contact Info) Description 07/25/2019 Transcribed Document [facility] Family Medicine [address] [place] [address] ProviderJennifer MD [address] [place] [address] Social History Tobacco Use Types Packs/Day Years Used Date Smoking Tobacco: Never Assessed Comments Unknown Sex and Gender Information Value Date Recorded Sex Assigned at Not on file Legal Sex Female 1:09 PM CDT Gender Identity Not on file Sexual Orientation Not on file documented as of this encounter Miscellaneous Notes * Cerner Conversion Note - Historical ProviderMD - 07/25/2019 2:00 AM ACOUSTICAL CARPENTER Spiritual Care Assessment Entered On: 07/25/2019 7:16 EST Performed On: 07/25/2019 6:53 EST by LU GARNER General Information Initial Visit : Yes Referred by : Patient Referral Reason Comment : Pre-surgery visit Ministry Provided to : Patient, Family/Significant other LU GARNER - 07/25/2019 7:15 EST Spiritual Assessment Spiritual Assessment Comment/Summary Points : Pre-surgery visit with patient and family. Spirital Assessment Comment/Summary Report : SPIRITUAL ASSESSMENT COMMENT/SUMMARY No qualifying data available. LU GARNER P - 07/25/2019 7:15 EST Interventions Emotional Support : Family/Significant other supported Spiritual and Anabaptist : Spiritual/Anabaptist support provided LU GARNER P - 07/25/2019 7:15 EST Electronically signed by Hossein, [facility] Conversion Audio Visual Equipment Rental Clerk Cerner at 09/10/2022 12:45 AM CDT documented in this encounter Plan of Treatment Upcoming Encounters Date Type Department Care Team (Late st Contact Info) Description 05/14/2025 8:00 AM EST Lab Patient Walk-In [place] [facility] - [place] [place] [address] 05/14/2025 8:30 AM EST Appointment [facility] [address] [facility] [address] [place] [address] Lu Bergman MD [address] [place] [address] [address] [place] [address] 05/14/2025 10:00 AM EST Appointment [facility] MRI - [address] [place] [address] Lu Bergman MD [address] [place] [address] [address] [place] [address] 05/14/2025 2:15 PM EST Office Visit [place] [facility] - [address] [place] [address] Lu Bergman MD [address] [place] [address] [address] [place] [address] documented as of this encounter Visit Diagnoses Not on filedocumented in this encounter Care Teams Fur Grader Relationship Specialty Start Date End Date Jonas Navas MD [address] [facility] [address] [place] [id number] PCP - General Cardiothoracic Surgery 04/15/22 07/23/22 Marcell Uriostegui MD [address] [place] [address] [place] [address] PCP - General Adolescent Medicine 07/24/22 04/05/23 Heidi Rivers, ROMERO [address] [facility] [address] [place] [address] PCP - General Nurse Practitioner 04/06/23 Lu Bergman MD [address] [facility] [address] [place] [address] Hematology and Oncology 10/31/24 documented as of this encounter
--- OUTSIDE RECORDS SUMMARY | 2025-04-30 09:26 | XMS_ITS | Encounter Summary ---
Author Organization [employer] ([place], [place], [place], [place], [place]) Address [address] [place] [address] Care Team Providers Care Salvage Supervisor Name Role Phone Jonas Navas MD Primary Care Provider [phone] Marcell Uriostegui MD Primary Care Provider + [phone] Heidi Rivers APRN Primary Care Provider + [phone] Neptali Bergman MD Unavailable [phone] Encounter Details Date Type Department Care Team (Late st Contact Info) Description 05/22/2020 Transcribed Document [facility] [place] [facility] [place] [address] ProviderJennifer MD [address] [place] [address] Social History Tobacco Use Types Packs/Day Years Used Date Smoking Tobacco: Never Assessed Comments Unknown Sex and Gender Information Value Date Recorded Sex Assigned at Not on file Legal Sex Female 1:09 PM CDT Gender Identity Not on file Sexual Orientation Not on file documented as of this encounter Miscellaneous Notes * Cerner Conversion Note - Jennifer ProviderMD - 05/22/2020 4:51 PM FOOD SERVICE WORKER Family/Agency/Support Person Communication Entered On: 05/22/2020 16:52 EST Performed On: 05/22/2020 16:51 EST by Elza Cedeno, Strapper And Buffer/Agency/Support Person Communication Date/Time of Communication : 05/22/2020 16:51 EST Communicated with : Spouse Communication Details : debi abel, patients the new location of [facility]. Elza Cedeno Rn - 05/22/2020 16:51 EST Electronically signed by [facility] Conversion Slip Mixer Cerner at 09/10/2022 12:39 AM CDT documented in this encounter Plan of Treatment Upcoming Encounters Date Type Department Care Team (Late st Contact Info) Description 05/14/2025 8:00 AM EST Lab Patient Walk-In [place] [facility] - [address] [place] [address] 05/14/2025 8:30 AM EST Appointment [facility] [address] [place] [address] Neptali Bergman MD [address] [facility] [address] [place] [address] 05/14/2025 10:00 AM EST Appointment [facility] MRI - [address] [facility] [address] [place] [address] Neptali Bergman MD [facility] [address] [place] [address] [place] [address] 05/14/2025 2:15 PM EST Office Visit [place] [facility] - [address] [place] [address] Neptali Bergman MD [facility] [address] [place] [address] documented as of this encounter Visit Diagnoses Not on filedocumented in this encounter Care Teams Salvage Supervisor Relationship Specialty Start Date End Date Jonas Navas MD [address] [facility] [address] [place] [address] PCP - General Cardiothoracic Surgery 04/15/22 07/23/22 Marcell Uriostegui MD [address] [place] [address] PCP - General Adolescent Medicine 07/24/22 04/05/23 Heidi Rivers APRN [address] [facility] [address] [place] [address] PCP - General Nurse Practitioner 04/06/23 Neptali Bergman MD [address] [facility] [address] [place] [address] Hematology and Oncology 10/31/24 documented as of this encounter
--- OUTSIDE RECORDS SUMMARY | 2025-04-30 09:26 | XMS_ITS | Encounter Summary ---
Author Organization [employer] ([place], [place], [place], [place], [place]) Address [address] [place] [address] Care Team Providers Care Air Quality Specialist Name Role Phone Blaze Walden MD Primary Care Provider [phone] Marcell Uriostegui MD Primary Care Provider + [phone] Haroldo Rivers APRN Primary Care Provider + [phone] Neptali Bergman MD Unavailable [phone] Encounter Details Date Type Department Care Team (Late st Contact Info) Description 07/10/2019 Transcribed Document [facility] [place] [facility] [place] [address] ProviderJennifer MD [address] [place] [address] Social History Tobacco Use Types Packs/Day Years Used Date Smoking Tobacco: Never Assessed Comments Unknown Sex and Gender Information Value Date Recorded Sex Assigned at Not on file Legal Sex Female 1:09 PM CDT Gender Identity Not on file Sexual Orientation Not on file documented as of this encounter Miscellaneous Notes * Cerner Conversion Note - Jennifer ProviderMD - 07/10/2019 12:45 PM FRUIT CHECKER [facility] [place] [address] ALEJANDRINA YEH :1955 Visit Time:07/10/2019 Your Visit Summary Your Care Team Admitting Physician - BLAZE WALDEN MD-CAT Attending Physician - BLAZE WALDEN MD-CAT Primary Care Physician - HAROLDO RIVERS NP-RAYMON Referring Physician - BLAZE WALDEN MD-CAT Your Diagnosis Solitary pulmonary nodule, Solitary pulmonary nodule Discharge Vitals Temperature 36.4 ??C Heart Rate (Monitored) 76 Respiratory Rate 20 Blood Pressure 118/61 What to do next Instructions From Your Care Team no driving today. no aspirin or blood thinners 2 days. may shower tomorrow Follow-Up Appointments Follow Up with BLAZE WALDEN MD-CAT When Within 2 to 3 days Comments for results Where: [address] [facility] [address] [place] [address]- Medications What How Much When Instructions Next Dose albuterol 2 puffs Every 6 Hours as needed for as needed for shortness of breath or wheezing prn ALPRAZolam 0.25 Milligram(s) Oral At Bedtime today aspirin 325 Milligram(s) Every Day 07/12 atorvastatin 40 Milligram(s) Oral Every Day today cetirizine (ZyrTEC) 10 Milligram(s) Oral Every Day today fluticasone nasal (fluticasone 50 mcg/ inh nasal spray) 2 Swisher(s) Nasal Every Day today fluticasone-salmeterol (Advair Diskus 250 mcg-50 mcg inhalation powder) 1 Puff(s) Inhalation Two Times A Day 07/11 hydrochlorothiazide-lisinopril (hydroCHLOROthiazide-lisinopril 25 mg-20 mg oral tablet) 1 Tablet(s) Oral Every Day today metFORMIN 500 Milligram(s) Oral Every Day today omeprazole 20 Milligram(s) Oral Every Day today Take your medications faithfully. Do NOT skip [...] your retail pharmacy guidance. Allergies Anoro Ellipta Corgard Levaquin Stiolto Respimat 10 ACT dilTIAZem Immunizations This Visit No Immunizations Found Education Materials Needle Biopsy of the Lung, Care After [...] your health care provider approves. ??? Take ppas-eeh-wofwtil and prescription medicines only as told by [...] 03/06/2008 Document Revised: 03/31/2017 Document Reviewed: 03/31/2017 [employer] Interactive Patient Education ?? 2019 [employer]vier Inc[employer] Moderate Conscious Sedation, Adult, Care After [...] you are awake and alert. ??? Take jjru-qix-fgujcov and prescription medicines only as told by [...] 02/28/2014 Document Revised: 10/12/2016 Document Reviewed: 08/29/2016 [employer] Interactive Patient Education ?? 2019 [employer] Emergency Awareness and Preventative Care STROKE [...] Assistance with quitting is available by contacting 9-800-LKGKNOW. This is a free resource providing counseling, [...] This Visit (last charted value for your 07/10/2019 visit) Hematology 07/10/2019 8:20 AM Hct: 40.8 % -- Normal range between ( 34.1 and 44.9 ) Hgb: 13.4 g/dL -- Normal range between ( 11.2 and 15.7 ) General Chemistry 07/10/2019 8:20 AM Creatinine Level: 0.90 mg/dL -- Normal range between ( 0.55 and 1.02 ) eGFR : >60 mL/min/1.73m2 eGFR NonAfrican: >60 mL/min/1.73m2 Coagulation 07/10/2019 8:20 AM INR: 1.0 -- Normal range between ( 0.9 and 1.1 ) PTT: 26.9 Second(s) -- Normal range between ( 24.0 and 34.0 ) PT: 10.0 Second(s) -- Normal range between ( 9.6 and 12.0 ) Computed Tomography 07/10/2019 10:[address] Bx Lung Mediastinum LT: CT Bx Lung Mediastinum LT Diagnostic Radiology 07/10/2019 10:45 AM CR Chest 2 Vws: CR Chest 2 Vws Patient Name:ALEJANDRINA YEH I have received and understand this information and was given the opportunity to ask questions. Patient/Mission Systems Engineer Name: Patient/Mission Systems Engineer Signature: Relationship to Patient: Clinician/Hospital Mission Systems Engineer Signature: Date: Electronically signed by Hossein [facility] Conversion Bridal Stylist Sales Consultant Shiraner at 09/10/2022 12:31 AM CDT documented in this encounter Plan of Treatment Upcoming Encounters Date Type Department Care Team (Late st Contact Info) Description 05/14/2025 8:00 AM EST Lab Patient Walk-In [place] [facility] - [address] [place] [address] 05/14/2025 8:30 AM EST Appointment [facility] [address] [place] [address] Neptali Bergman MD [address] [place] [address] [place] [address] 05/14/2025 10:00 AM EST Appointment [facility] MRI - [address] [place] [address] Neptali Bergman MD [address] [facility] [address] [place] [address] 05/14/2025 2:15 PM EST Office Visit [facility] - [address] [place] [address] Neptali Bergman MD [address] [facility] [address] [place] [address] documented as of this encounter Visit Diagnoses Not on filedocumented in this encounter Care Teams Air Quality Specialist Relationship Specialty Start Date End Date Blaze Walden MD [address] [facility] [address] [place] [address] PCP - General Cardiothoracic Surgery 04/15/22 07/23/22 Marcell Uriostegui MD [address] [place] [address] PCP - General Adolescent Medicine 07/24/22 04/05/23 Haroldo Rivers, OUTSOLE ROUNDER [address] [facility] [address] [place] [address] PCP - General Nurse Practitioner 04/06/23 Neptali Bergman MD [address] [facility] [address] [place] [address] Hematology and Oncology 10/31/24 documented as of this encounter
--- OUTSIDE RECORDS SUMMARY | 2025-04-30 09:27 | XMS_ITS | Encounter Summary ---
Author Organization [employer] ([place], [place], [place], [place], [place]) Address [address] [place] [address] Care Team Providers Care Cable Hooker Name Role Phone Jonas Navas MD Primary Care Provider [phone] Marcell Uriostegui MD Primary Care Provider + [phone] Heidi Rivers APRN Primary Care Provider + [phone] Neptali Bergman MD Unavailable [phone] Encounter Details Date Type Department Care Team (Late st Contact Info) Description 07/26/2019 Transcribed Document [facility] [place] [address] ProviderJennifer MD [address] [place] [address] Social History Tobacco Use Types Packs/Day Years Used Date Smoking Tobacco: Never Assessed Comments Unknown Sex and Gender Information Value Date Recorded Sex Assigned at Not on file Legal Sex Female 1:09 PM CDT Gender Identity Not on file Sexual Orientation Not on file documented as of this encounter Miscellaneous Notes * Cerner Conversion Note - Jennifer ProviderMD - 07/26/2019 2:00 AM 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 WIRE 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 Auditor Details Entered On: 07/26/2019 4:53 EST Performed On: 07/26/2019 2:00 EST by Vero Reveles, ASHLEY Order Details Transport Mode Order Detail : Bed (including specialty) Isolation Precautions Order Detail : Droplet precautions Order Detail : 0 IV Order Detail : 1 Oxygen Order Detail : 1 Nurse Collect Order Detail : 1 Lift/Transfer : Moderate assist Central Line Order Detail : Yes Room Service : Appropriate Arterial Line : Yes Vero Reveles, RN - 07/26/2019 4:52 EST documented in this encounter Plan of Treatment Upcoming Encounters Date Type Department Care Team (Late st Contact Info) Description 05/14/2025 8:00 AM EST Lab Patient Walk-In [place] [facility] - [address] [place] [address] 05/14/2025 8:30 AM EST Appointment [facility] CT - [facility] [address] [facility] [address] [place] [address] Neptali Bergman MD [facility] [address] [place] [address] 05/14/2025 10:00 AM EST Appointment [facility] MRI - [address] [facility] [address] [place] [address] Neptali Bergman MD [facility] [address] [place] [address] 05/14/2025 2:15 PM EST Office Visit [place] [facility] - [address] [place] [address] Neptali Bergman MD [facility] [address] [place] [address] documented as of this encounter Visit Diagnoses Not on filedocumented in this encounter Care Teams Cable Hooker Relationship Specialty Start Date End Date Jonas Navas MD [address] [facility] [address] [place] [address] PCP - General Cardiothoracic Surgery 04/15/22 07/23/22 Marcell Uriostegui MD [address] [facility] [address] [place] [address] PCP - General Adolescent Medicine 07/24/22 04/05/23 Heidi Rivers APRN [address] [facility] [address] [place] [address] PCP - General Nurse Practitioner 04/06/23 Neptali Bergman MD [address] [facility] [address] [place] [address] Hematology and Oncology 10/31/24 documented as of this encounter
--- OUTSIDE RECORDS SUMMARY | 2025-04-30 09:27 | XMS_ITS | Encounter Summary ---
Author Organization [employer] ([place], [place], [place], [place], [place]) Address [address] [place] [address] Care Team Providers Care Web Manager Name Role Phone Jonas Navas MD Primary Care Provider [phone] Marcell Uriostegui MD Primary Care Provider + [phone] Heidi Rivers APRN Primary Care Provider + [phone] Neptali Bergman MD Unavailable [phone] Encounter Details Date Type Department Care Team (Late st Contact Info) Description 07/25/2019 Transcribed Document [facility] [place] [facility] [place] [address] ProviderJennifer MD [address] [place] [address] Social History Tobacco Use Types Packs/Day Years Used Date Smoking Tobacco: Never Assessed Comments Unknown Sex and Gender Information Value Date Recorded Sex Assigned at Not on file Legal Sex Female 1:09 PM CDT Gender Identity Not on file Sexual Orientation Not on file documented as of this encounter Miscellaneous Notes * Cerner Conversion Note - Historical ProviderMD - 07/25/2019 6:59 AM DRAGLINE ENGINEER Admission History, Adult Entered On: 07/25/2019 15:46 EST Performed On: 07/25/2019 6:59 EST by Lorenzo Rowland, ASHLEY Advance Directive Patient has Advance Directive *Q : Yes, Advance Directive not with the patient Request Family/Rep to Provide Copy of AD : Yes Advance Directive Type : Living will, Medical durable power of associate attorney (proxy) Copy Advance Directive Verified/on Chart : Yes Date Hospital Obtained Advance Directive : 07/25/2019 EST Lorenzo Rowland RN - 07/25/2019 15:42 EST Anesthesia/Transfusion History Family History of Anesthesia Reaction : No prior transfusion(s) Blood Transfusion Acceptable to Patient : Yes Transfusion History : Prior anesthesia without reaction Family History of Anesthesia Reaction : None Lorenzo Rowland RN - 07/25/2019 15:42 EST Functional Assessment Living Situation : Home Current Home Treatments : Blood glucose monitoring Lorenzo Rowland RN - 07/25/2019 15:42 EST General Info Arrived From : Home Mode of Arrival on Unit : Ambulatory Legal Guardian : Spouse 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 Submerged Arc : Yes Support Person/Pt Rep Name : Ti yeh - spouse Support Person/Pt Rep Contact Information : [phone] Want Family/Rep/Phys Notified of Admit : No Emergency Contact #1 : Ti Yeh Emergency Contact #1 Emergency Contact #1 Relationship : spouse Emergency Contact #2 : na Emergency Contact #2 Phone Number : na Emergency Contact #2 Relationship : na Information Obtained From : Patient Primary Language : Panamanian Communication Barrier : None Objects to Sharing Info w Family : No Lorenzo Rowland RN - 07/25/2019 15:42 EST Fall Risk Scales ABCs Fall Injury [...] Scale Risk Level : 25-45 Medium Risk [facility] Fall Interventions : Adequate lighting, Assistive devices within reach, Bed in low position, Call device within reach, Fall prevention handout/education per facility policy, Frequent orientation to call device, Frequent orientation to surroundings, Hourly comfort/safety rounds, Non-slip footwear, Personal items within reach, Reinforced to call for assistance before getting out of bed, Room free of clutter/spills, Upper side-rails up, Wheels locked, Wires/Cords secured Lorenzo Rowland RN - 07/25/2019 15:42 EST Health Histories Smoking Status : 5-9 cigarettes (between 1/4 to 1/2 pack)/day in last 30 days Smokeless Tobacco Status : Never Desires Tobacco Cessation Medication : Yes Lorenzo Rowland RN - 07/25/2019 15:42 EST Social History (As Of: 07/25/2019 15:46:51 EST) Tobacco: 10 or more cigarettes (1/2 [...] Source : Measured Height Entry Format : [place] Height, Feet : 5 ft(Converted to: 152 cm, 60 Inch) Height, Inches : 2 Inch(Converted to: 0 ft 2 Inch, 5.08 cm) Clinical Height : 157.48 cm Weight Source : Standing scale Weight Entry Format : [place] Clinical Dosing Weight : 72.39 kg Weight, Pounds : 159 lb Weight, Ounces : 4 oz Body Surface Area (BSA) : 1.74 m2 Body Mass Index : 29.2 kg/m2 (HI) [facility] Body Weight : 50 kg Lorenzo Rowland RN - 07/25/2019 15:42 EST Infectious Disease History Physical contact outside [place] in the last 30 days : No Infectious Disease History : Chicken pox/Shingles, Measles, Mumps, Pertussis (Whooping cough) Exposure to Contagious Illness : No Tuberculosis Symptoms : None Lorenzo Rowland RN - 07/25/2019 15:42 EST Influenza Vaccine Asmt, Adult Previous Vaccines from Immunization Schedule : No qualifying data available. Influenza Immunization, Current Season : Yes Influenza Immunization Date : 02/21/2019 EDT Lorenzo Rowland RN - 07/25/2019 15:42 EST Pneumococcal Vaccine Previous Vaccines from Immunization Schedule : No qualifying data available. Pneumonia Immunization Received : Yes Pneumonia Immunization Date : 05/24/2011 EST Lorenzo Rowland RN - 07/25/2019 15:42 EST Nutrition History Eating Poorly Due to Decreased Appetite : No Unplanned Weight Loss in Past 3-6 Months : No Malnutrition Screening Tool Total(mal) : 0 Malnutrition Screening Tool Risk Level : Patient not at risk Lorenzo Rowland RN - 07/25/2019 15:42 EST [place] Suicide Severity Rating Scale (C-SSRS) CSSRS Past Month Wish to be : No CSSRS Past Month Suicidal Thoughts : No CSSRS Lifetime Suicide Behavior : No Suicide Severity Rating Score : 0 Suicide Severity Rating : No Additional Care Required at this time Lorenzo Rowland RN - 07/25/2019 15:42 EST Psychosocial History Currently in Unsafe Situation : No Lorenzo Rowland RN - 07/25/2019 15:42 EST Sleep Apnea Risk Assmt BiPAP/CPAP Ordered for Home Use : Yes Hx of Obstructive Sleep Apnea Diagnosis : Yes BiPAP/CPAP Used at Home : No Reason BiPAP/CPAP Not Used at Home : can't tolerate Age over 50 Years Old : Yes Gender Male : No Lorenzo Rowland RN - 07/25/2019 15:42 EST Valuables and Belongings Valuables and Belongings : No clothing, No comfort items, No jewelry, No personal devices, No personal items, No assistive devices, No respiratory devices, No medications Lorenzo Rowland RN - 07/25/2019 15:42 EST documented in this encounter Plan of Treatment Upcoming Encounters Date Type Department Care Team (Late st Contact Info) Description 05/14/2025 8:00 AM EST Lab Patient Walk-In [place] [facility] - [address] [place] [address] 05/14/2025 8:30 AM EST Appointment [facility] [address] [place] [address] Neptali Bergman MD [address] [place] [address] [address] [place] [address] 05/14/2025 10:00 AM EST Appointment [facility] [address] [facility] [address] [place] [address] Neptali Bergman MD [facility] [address] [place] [address] 05/14/2025 2:15 PM EST Office Visit [place] [facility] - [address] [place] [address] Neptali Bergamn MD [address] [place] [address] [address] [place] [address] documented as of this encounter Visit Diagnoses Not on filedocumented in this encounter Care Teams Web Manager Relationship Specialty Start Date End Date Jonas Navas MD [address] [facility] [address] [place] [address] PCP - General Cardiothoracic Surgery 04/15/22 07/23/22 Marcell Uriostegui MD [address] [place] [address] [place] [address] PCP - General Adolescent Medicine 07/24/22 04/05/23 Heidi Rivers, CENTRIFUGAL DRIER OPERATOR [address] [place] [address] PCP - General Nurse Practitioner 04/06/23 Neptali Bergman MD [address] [address] Hematology and Oncology 10/31/24 documented as of this encounter
--- OUTSIDE RECORDS SUMMARY | 2025-04-30 09:27 | XMS_ITS | Encounter Summary ---
Author Organization [employer] ([place], [place], [place], [place], [place]) Address [address] [place] [address] Care Team Providers Care Bathroom Tiling Professional Name Role Phone Jonas Navas MD Primary Care Provider [phone] Marcell Uriostegui MD Primary Care Provider + [phone] Heidi Rivers APRN Primary Care Provider + [phone] Neptali Bergman MD Unavailable [phone] Encounter Details Date Type Department Care Team (Late st Contact Info) Description 05/23/2020 Transcribed Document [facility] [place] [address] [place] [address] ProviderJennifer MD [address] [place] [address] Social History Tobacco Use Types Packs/Day Years Used Date Smoking Tobacco: Never Assessed Comments Unknown Sex and Gender Information Value Date Recorded Sex Assigned at Not on file Legal Sex Female 1:09 PM CDT Gender Identity Not on file Sexual Orientation Not on file documented as of this encounter Miscellaneous Notes * Cerner Conversion Note - Jennifer ProviderMD - 05/23/2020 12:53 PM 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 STOCK GRADER On Going Discharge Planning Entered On: 05/23/2020 12:53 EST Performed On: 05/23/2020 12:53 EST by SUNG OWENS RN-Enrollment Eligibility RepresentativeVessel Liner Progress Note Discharge Arrangements : Patient Post-Acute Information Patient Name: ALEJANDRINA YEH Gender: Female : 55 Age: 64 Years No Post-Acute Placement(s) Listed No Post-Acute Service(s) Listed No [place] Referral(s) Listed Discharge Options Discussed with Patient : DME, Home Health Barriers to Discharge Unresolved : All resolved Designation of Choice Signed : Yes Patient Offered Choice/Affiliations Explained : Yes List/Info Provided Pt/Fam/Support Person : Durable medical equipment Were Referrals Sent to Post Acute Providers : Yes Does the Patient have a Floor to SNF Benefit? : No Physician Agreeable to Move Forward with D/C Plan? : Yes Did you Attend Multidisciplinary Rounds? : Yes SUNG OWENS RN-Enrollment Eligibility Representative - 05/23/2020 12:53 EST documented in this encounter Plan of Treatment Upcoming Encounters Date Type Department Care Team (Late st Contact Info) Description 05/14/2025 8:00 AM EST Lab Patient Walk-In [place] - [address] [place] [address] 05/14/2025 8:30 AM EST Appointment [facility] [address] [facility] [address] [place] [address] Neptali Bergman MD [address] [place] [address] [address] [place] [address] 05/14/2025 10:00 AM EST Appointment [facility] - [address] [facility] [address] [facility] [address] [place] [address] [place] [address] [place] [address] [address] [place] [address] 05/14/2025 2:15 PM EST Office Visit [facility] - [address] [place] [address] [facility] [address] [place] [address] documented as of this encounter Visit Diagnoses Not on filedocumented in this encounter Care Teams Bathroom Tiling Professional Relationship Specialty Start Date End Date Jonas Navas MD [address] [facility] [address] [place] [address] PCP - General Cardiothoracic Surgery 04/15/22 07/23/22 Marcell Uriostegui MD [address] [facility] [address] [place] [address] PCP - General Adolescent Medicine 07/24/22 04/05/23 Heidi Rivers APRN [address] [facility] [address] [place] [address] PCP - General Nurse Practitioner 04/06/23 Neptali Bergman MD [address] [facility] [address] [place] [address] Hematology and Oncology 10/31/24 documented as of this encounter
--- OUTSIDE RECORDS SUMMARY | 2025-04-30 09:27 | XMS_ITS | Encounter Summary ---
Author Organization [employer] ([place], [place], [place], [place], [place]) Address [address] [place] [address] Care Team Providers Care Salesperson Hosiery Name Role Phone Blaze Navas MD Primary Care Provider [phone] Marcell Uriostegui MD Primary Care Provider + [phone] Heidi Rivers APRN Primary Care Provider + [phone] Neptali Bergman MD Unavailable [phone] Encounter Details Date Type Department Care Team (Late st Contact Info) Description 07/25/2019 Transcribed Document [facility] [place] [address] ProviderJennifer MD [address] [place] [address] Social History Tobacco Use Types Packs/Day Years Used Date Smoking Tobacco: Never Assessed Comments Unknown Sex and Gender Information Value Date Recorded Sex Assigned at Not on file Legal Sex Female 1:09 PM CDT Gender Identity Not on file Sexual Orientation Not on file documented as of this encounter Miscellaneous Notes * Cerner Conversion Note - Jennifer ProviderMD - 07/25/2019 8:34 AM 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 Name: ALEJANDRINA YEH /Sex: 1955 Female Med Rec #: [id number] Physician: BLAZE NAVAS MD-CAT Financial #: [id number] Pt. Type: I Room/Bed: [facility] Admit/Disch: 07/25/19 07:00:00 - Institution: [facility] IntraOp Case Attendance Entry 1 Entry 2 Entry 3 Case Attendee BLAZE NAVAS MD-CAT GHANSAH, NANA DADZIE, Proffitt, Debbie, RN MD-ANS Role Performed Surgeon/Proceduralist, Anesthesiologist Bed Machine Operator, First First Time In 07/25/19 07:20:00 07/25/19 07:20:00 07/25/19 07:20:00 Time Out 07/25/19 10:53:00 07/25/19 09:05:00 07/25/19 10:53:00 Procedure Thoracotomy/Lobectomy, Thoracotomy/Lobectomy, Thoracotomy/Lobectomy, Lymphadenectomy Lymphadenectomy Lymphadenectomy Other Attendee Superficial Wound Closed By: Last Modified By: Rxoy Gunter RN Proffitt, Debbie, RN Proffitt, Debbie, RN 07/25/19 10:54:03 07/25/19 09:17:45 07/25/19 10:54:03 Entry 4 Entry 5 Entry 6 Case Attendee NILSON PEREZ, DIXIE BALDERAS PAUL, PA Role Performed Bed Machine Operator, Second Scrub, First Physician 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 assistant 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 Time In 07/25/19 07:20:00 07/25/19 07:20:00 07/25/19 07:41:00 Time Out 07/25/19 09:35:00 07/25/19 09:22:00 07/25/19 10:53:00 Procedure Thoracotomy/Lobectomy, Thoracotomy/Lobectomy, Thoracotomy/Lobectomy, Lymphadenectomy Lymphadenectomy Lymphadenectomy Other Attendee Superficial Wound Closed By: Last Modified By: Roxy Gunter RN Proffitt, Debbie, Roxy Amador RN 07/25/19 09:51:45 07/25/19 09:23:40 07/25/19 10:54:03 Entry 7 Entry 8 Entry 9 Case Attendee LAURA WEST GHANSAH, JILLIAN DADZIE, JACKIE, REYNALDO, ST MD-ANS MD-ANS Role Performed Anesthesiologist Anesthesiologist Scrub, First Time In 07/25/19 09:04:00 07/25/19 09:15:00 07/25/19 09:22:00 Time Out 07/25/19 09:16:00 07/25/19 10:53:00 07/25/19 09:53:00 Procedure Thoracotomy/Lobectomy, Thoracotomy/Lobectomy, Thoracotomy/Lobectomy, Lymphadenectomy Lymphadenectomy Lymphadenectomy Other Attendee Superficial Wound Closed By: Last Modified By: Roxy Gunter, Roxy Amador, Roxy Amador, ASHLEY 07/25/19 09:23:40 07/25/19 10:54:03 07/25/19 09:53:07 Entry 10 Entry 11 Entry 12 Case Attendee Roxy Gunter, DIXIE BALDERAS LISA E, RN Role Performed Bed Machine Operator, First Scrub, First Bed Machine Operator, Second Time In 07/25/19 09:22:00 07/25/19 09:51:00 07/25/19 09:51:00 Time Out 07/25/19 10:53:00 07/25/19 10:53:00 07/25/19 10:53:00 Procedure Thoracotomy/Lobectomy, Thoracotomy/Lobectomy, Thoracotomy/Lobectomy, Lymphadenectomy Lymphadenectomy Lymphadenectomy Other Attendee Superficial Wound Closed By: Last Modified By: Roxy Gunter, Roxy Amador, Roxy Amador, ASHLEY 07/25/19 10:54:03 07/25/19 10:54:03 07/25/19 10:54:03 [facility] IntraOp Case Attendance Audit 07/25/19 10:54:03 Jammer Operator: PROFITDE Modifier: PROFITDE 1 <+> Time Out 1 <*> Procedure Thoracotomy/Lobectomy, Lymphadenectomy 2 <*> Procedure Thoracotomy/Lobectomy, Lymphadenectomy 3 <+> Time Out 3 <*> Procedure Thoracotomy/Lobectomy, Lymphadenectomy 4 <*> Procedure Thoracotomy/Lobectomy, Lymphadenectomy 5 <*> Procedure Thoracotomy/Lobectomy, Lymphadenectomy 6 <+> Time Out 6 <*> Procedure Thoracotomy/Lobectomy, Lymphadenectomy 7 <*> Procedure Thoracotomy/Lobectomy, Lymphadenectomy 8 <+> Time Out 8 <*> Procedure Thoracotomy/Lobectomy, Lymphadenectomy 9 <*> Procedure Thoracotomy/Lobectomy, Lymphadenectomy 10 <+> Time Out 10 <*> Procedure Thoracotomy/Lobectomy, Lymphadenectomy 11 <+> Time Out 11 <*> Procedure Thoracotomy/Lobectomy, Lymphadenectomy 12 <+> Time Out 12 <*> Procedure Thoracotomy/Lobectomy, Lymphadenectomy 07/25/19 10:20:12 Jammer Operator: PROFITDE Modifier: PROFITDE 1 <*> Procedure Thoracotomy/Lobectomy 2 <*> Procedure Thoracotomy/Lobectomy 3 <*> Procedure Thoracotomy/Lobectomy 4 <*> Procedure Thoracotomy/Lobectomy 5 <*> Procedure Thoracotomy/Lobectomy 6 <*> Procedure Thoracotomy/Lobectomy 7 <*> Procedure Thoracotomy/Lobectomy 8 <*> Procedure Thoracotomy/Lobectomy 9 <*> Procedure Thoracotomy/Lobectomy 10 <*> Procedure Thoracotomy/Lobectomy 11 <*> Procedure Thoracotomy/Lobectomy 12 <*> Procedure Thoracotomy/Lobectomy 07/25/19 09:53:07 Jammer Operator: PROFITDE Modifier: PROFITDE 9 <+> Time Out 9 <*> Procedure Thoracotomy/Lobectomy 07/25/19 09:51:45 Jammer Operator: PROFITDE Modifier: PROFITDE 4 <+> Time Out 4 <*> Procedure Thoracotomy/Lobectomy <+> 11 Case Attendee <+> 11 Role Performed <+> 11 Time In <+> 11 Procedure <+> 12 Case Attendee <+> 12 Role Performed <+> 12 Time In <+> 12 Procedure 07/25/19 09:23:40 Jammer Operator: PROFITDE Modifier: PROFITDE 3 <*> Procedure Thoracotomy/Lobectomy 5 <+> Time Out 5 <*> Procedure Thoracotomy/Lobectomy 7 <+> Time Out 7 <*> Procedure Thoracotomy/Lobectomy <+> 8 Case Attendee <+> 8 Role Performed <+> 8 Time In <+> 8 Procedure <+> 9 Case Attendee <+> 9 Role Performed <+> 9 Time In <+> 9 Procedure <+> 10 Case Attendee <+> 10 Role Performed <+> 10 Time In <+> 10 Procedure 07/25/19 09:17:45 Jammer Operator: PROFITDE Modifier: PROFITDE 2 <+> Time Out 2 <*> Procedure Thoracotomy/Lobectomy <+> 7 Case Attendee <+> 7 Role Performed <+> 7 Time In <+> 7 Procedure 07/25/19 07:46:41 Jammer Operator: PROFITDE Modifier: PROFITDE <+> 1 Procedure 2 <*> Procedure Thoracotomy/Lobectomy 3 <*> Procedure Thoracotomy/Lobectomy 4 <*> Procedure Thoracotomy/Lobectomy 5 <*> Procedure Thoracotomy/Lobectomy 6 <*> Procedure Thoracotomy/Lobectomy 07/25/19 07:41:41 Jammer Operator: PROFITDE Modifier: PROFITDE <+> 5 Procedure <+> 6 Case Attendee <+> 6 Role Performed <+> 6 Time In <+> 6 Procedure [facility] IntraOp Case Times Entry 1 Patient In Room Time 07/25/19 07:20:00 Out Room Time 07/25/19 10:53:00 Anesthesia Start Time 07/25/19 07:20:00 Stop Time 07/25/19 10:53:00 Anesthesia Ready 07/25/19 07:20:00 Surgery / Procedure Times Start Time 07/25/19 08:34:00 Stop Time 07/25/19 10:31:00 Last Modified By: Roxy Gunter RN 07/25/19 07:40:18 [facility] IntraOp Case Times Audit 07/25/19 10:53:59 Jammer Operator: PROFITDE Modifier: PROFITDE <+> 1 Out Room Time <+> 1 Stop Time 07/25/19 10:30:38 Jammer Operator: PROFITDE Modifier: PROFITDE <+> 1 Stop Time 07/25/19 08:35:00 Jammer Operator: PROFITDE Modifier: PROFITDE <+> 1 Start Time [facility] IntraOp Cautery Entry 1 ESU Identification Cautery Type Monopolar ESU Cautery Type SURGEON OPERATES Comments SETTINGS ID Number [id number] ID Type Hospital Number Cautery Settings ESU Grounding Pad Ground Pad Type Adult Grounding Pad Site Left thigh Grounding Pad Roxy Gunter RN Applied By Grounding Pad Site Warm, Dry, Intact Skin Condition Before Cautery Site Skin Condition WDL Before Comment Grounding Pad Site Unchanged Skin Condition After Cautery Site Skin Condition WDL After Comment Last Modified By: Roxy Gunter RN 07/25/19 07:43:24 [facility] IntraOp Communication Entry 1 Entry 2 Entry 3 Communication To Family/Significant other Other Family/Significant other Comment INCISION CTVU BED REQUESTED UPDATED Communication By Roxy Gunter RN Proffitt, Debbie, RN Proffitt, Debbie, RN Date and Time 07/25/19 08:34:00 07/25/19 08:34:00 07/25/19 09:28:00 Last Modified By: Roxy Gunter RN Proffitt, Debbie, RN Proffitt, Debbie, RN 07/25/19 08:34:16 07/25/19 08:34:35 07/25/19 09:28:10 Entry 4 Communication To Family/Significant other Comment CLOSING Communication By Roxy Gunter RN Date and Time 07/25/19 10:20:00 Last Modified By: Roxy Gunter RN 07/25/19 10:20:30 [facility] IntraOp Communication Audit 07/25/19 10:20:30 Jammer Operator: PROFITDE Modifier: PROFITDE <+> 4 Communication By <+> 4 Date and Time <+> 4 Communication To <+> 4 Comment 07/25/19 09:28:10 Jammer Operator: PROFITDE Modifier: PROFITDE <+> 3 Communication By <+> 3 Date and Time <+> 3 Communication To <+> 3 Comment 07/25/19 08:34:35 Jammer Operator: PROFITDE Modifier: PROFITDE <+> 2 Communication By <+> 2 Date and Time <+> 2 Communication To <+> 2 Comment [facility] IntraOp Counts Verification Entry 1 Entry 2 Entry 3 Procedure Thoracotomy/Lobectomy Thoracotomy/Lobectomy Thoracotomy/Lobectomy Count Info Count Type Sponge, Sharps, Instrument Sponge, Sharps, Miscellaneous Instrument, Miscellaneous Counts Verification Baseline/pre-procedure Baseline/pre-procedure Before wound closure Sequence Count Results Not Applicable Not Applicable Correct, surgeon notified If Incorrect or Waived complete the Counts Action Taken form: If Intentional Retention, complete the Intential Retention form: Counts Performed By Count Performed By DIXIE MARKS ROY SKIDMORE, ROY (Scrub) Count Performed By NILSON PEREZ RN Proffitt, Debbie, RN Proffitt, Debbie, RN (RN) Last Modified By: Roxy Gunter RN Proffitt, Debbie, RN Proffitt, Roxy, RN 07/25/19 07:42:29 07/25/19 07:42:29 07/25/19 10:08:36 [facility] IntraOp Counts Verification Audit 07/25/19 10:20:16 Jammer Operator: PROFITDE Modifier: PROFITDE 1 <*> Procedure Thoracotomy/Lobectomy 2 <*> Procedure Thoracotomy/Lobectomy 3 <*> Procedure Thoracotomy/Lobectomy 07/25/19 10:08:36 Jammer Operator: PROFITDE Modifier: PROFITDE <+> 3 Procedure <+> 3 Count Type <+> 3 Counts Verification Sequence <+> 3 Count Results <+> 3 Count Performed By (Scrub) <+> 3 Count Performed By (RN) [facility] IntraOp Counts Final Entry 1 Procedure Thoracotomy/Lobectomy, Lymphadenectomy Final Count Info Count Type Sponge, Sharps, Miscellaneous Counts Verification Skin Closure/end of Sequence procedure Count Results Correct, surgeon notified Counts Performed By Count Performed By DIXIE MARKS (Scrub) Count Performed By Roxy Gunter RN (RN) Last Modified By: Roxy Gunter RN 07/25/19 10:26:26 [facility] IntraOp Cultures and Spec Summary Entry 1 Cultrures and Specimens Specimen Ordered: Yes Test(s) Routine/Path-Lab Requested/Final Disposition Last Modified By: Roxy Gunter RN 07/25/19 08:36:13 [facility] IntraOp Departure from OR Entry 1 Integumentary Assessment Integumentary WDL with patient Assessment WDL specific variances Patient's Normal INCISIONS Integumentary Variance(s) Transfer/Handoff Transfer to PACU Phase I Handoff Method Bedside/Face to face Handoff Reported to NORI AKERS RN Post-op Transport Bed (including Via specialty) Patient Transport JILLIAN DIAZ, Accompanied by NOELLE BABCOCK PAUL PA Last Modified By: Roxy Gunter RN 07/25/19 10:18:35 [facility] IntraOp Departure from OR Audit 07/25/19 10:18:35 Jammer Operator: PROFITDE Modifier: PROFITDE 1 <*> Handoff Reported to LINETTE GENTILE RN [facility] IntraOp Drains and Tubes Entry 1 Device Type Chest Tube Size 32 FR Drain/Tube Activity Tube secured/stabilized, Inserted Device Location chest, operative side Method of Drainage Continuous suction Chest Tubes Water-Seal 20 cm suction Connectivity Tube Dressing Dry, Intact Condition Last Modified By: Roxy Gunter RN 07/25/19 08:40:07 [facility] IntraOp Drains and Tubes Audit 07/25/19 10:30:57 Jammer Operator: PROFITDE Modifier: PROFITDE <+> 1 Size [facility] IntraOp Dressing and Packing Entry 1 Type Dressing Wound Dressing Item Occlusive dressing Applied By ANGELIQUE DRAKE PA Other Comments AQUACEL, TEGADERM Last Modified By: Roxy Gunter RN 07/25/19 10:19:17 [facility] IntraOp Dressing and Packing Audit 07/25/19 10:31:06 Jammer Operator: PROFITDE Modifier: PROFITDE 1 <*> Wound Dressing Item 4x4's, Occlusive dressing 07/25/19 10:19:17 Jammer Operator: PROFITDE Modifier: PROFITDE 1 <*> Other Comments TEGADERM [facility] IntraOp Fire Risk Assessment Entry 1 Fire Info Surgical Site or 1- Yes Incision Above the Xyphoid Open O2 Source 0- No (Mask or Cannula) Available Ignition 1- Yes (ESU, Laser, Light Source) Fire Risk 2 Assessment Score Fire Score Fire Risk Yes Assessment Complete Fire Risk Roxy Gunter RN Assessment Verified By Fire Risk 07/25/19 07:41:00 Assessment Verified Date/Time Fire Risk Standard Fire Yes Safety Precautions Followed Last Modified By: Roxy Gunter RN 07/25/19 07:41:55 [facility] IntraOp General Case Luggage Liner 1 Case Information OR OR 14 [facility] Case Level 1 Room Verified Yes Wound Class II - Clean-Contaminated Specialty SN Cardio Thoracic ASA Class 3 Diagnosis Preop Diagnosis LUNG CANCER Postop Same As Preop Yes Postop Diagnosis LUNG CANCER Last Modified By: Roxy Gunter RN 07/25/19 07:42:49 [facility] IntraOp General Case Data Audit 07/25/19 07:42:49 Jammer Operator: PROFITDE Modifier: PROFITDE <+> 1 Specialty <+> 1 ASA Class <+> 1 Case Level <+> 1 Wound Class <+> 1 Postop Same As Preop <+> 1 Preop Diagnosis <+> 1 Postop Diagnosis <+> 1 Room Verified [facility] IntraOp Intraoperative Assessment Entry 1 Handoff Report BRINA CACERES Received from Handoff Reported to Roxy Gunter RN Handoff Method Online nursing summary, Other Valid History / Yes Physical in Chart Preoperative Yes Checklist Reviewed/Evaluated Allergies Reviewed Yes Patient is Latex No Sensitive Isolation Not applicable Precautions Noted Level of WDL Consciousness (WDL = Alert, Oriented to Person, Place, and Time) Skin Assessment Yes Verified Present Upon IVs Arrival to OR Last Modified By: Roxy Gunter RN 07/25/19 07:43:52 [facility] IntraOp Intraoperative Equipment Entry 1 Equipment Intraop Monitoring Electrocardiogram Five lead placement (ECG) Electrode Placement Blood Pressure Arterial Pressure Line Source Blood Pressure Arterial Location Pulse Oximeter Hand, right Probe Site Antiembolic Devices Antiembolic Devices Sequential compression device, knee high Antiembolic Device Bilateral Location Antiembolic Device [id number] ID Number Antiembolic Device LEGS Setting Scopes Photo/Video Documentation Intraop Equipment SCD'S ON AND Comment FUNCTIONING PRIOR INDUCTION OF ANESTHESIA Last Modified By: Roxy Gunter RN 07/25/19 07:52:51 [facility] IntraOp Intraoperative Equipment Audit 07/25/19 07:53:20 Jammer Operator: PROFITDE Modifier: PROFITDE <+> 1 Intraop Equipment Comment [facility] IntraOp Medication Admin Entry 1 Medication/Irrigant NICK IRR STRL H2O 1500ML [id number] Dose Dose 1000 Unit of Measure ml Administered By BLAZE NAVAS MD-CAT Procedure Irrigation Last Modified By: Roxy Gunter RN 07/25/19 07:44:24 [facility] IntraOp Patient Positioning Entry 1 Procedure Thoracotomy/Lobectomy Left Leg Position Other Right Leg Position Other Feet Uncrossed Yes Pressure Points Yes Checked Positioning Devices Arm Board, Safety Strap, Thighs, Pad, Elbow, Arm Board Device Position Operative side elevated, huerta foam headrest, lower leg flexed, and upper extended, axillary roll, pillows between arms and legs, ulnar nerve protector, foam UNDER RIGHT ANKLE Positioned By Roxy Gunter RN, JILLIAN DIAZ MD-ANS, NILSON PEREZ RN, BLAZE NAVAS MD-CAT Position Verified Positioning Yes Verified by Anesthesia Positioning Yes Verified by Surgeon Last Modified By: Roxy Guntre RN 07/25/19 07:45:26 [facility] IntraOp Patient Positioning Audit 07/25/19 10:20:16 Jammer Operator: PROFITDE Modifier: PROFITDE 1 <*> Procedure Thoracotomy/Lobectomy [facility] IntraOp Sign In Entry 1 Patient, [...] Warming Measures Yes Taken Last Modified By: Roxy Gunter RN 07/25/19 07:41:51 [facility] IntraOp Sign Out Entry 1 RN Confirmation Surgical Yes Procedure(s) Identified Instrument, Sponge Yes and Sharps Counts Correct/Documented Equipment Problems Yes Documented Specimen Labeled Yes Correctly Urinary Catheter Yes Documented in IView Ge Patient Yes Recovery Concerns Reviewed with Anesthesia Provider, Surgeon and RN Ge Patient Yes Management Concerns Reviewed with Anesthesia Provider, Surgeon and RN Safety Checklist Yes Elements Complete? RN Sign Out Roxy Gunter RN Signature RN Sign Out 07/25/19 10:54:00 Signature Date/Time Plan of Care Outcome - [...] related to extraneous objects Last Modified By: Roxy Gunter RN 07/25/19 08:40:46 [facility] IntraOp Sign Out Audit 07/25/19 10:54:12 Jammer Operator: PROFITDE Modifier: PROFITDE <+> 1 RN Sign Out Signature Date/Time [facility] IntraOp Skin Prep Entry 1 Procedure Thoracotomy/Lobectomy Prescribed Yes Pre-Surgical Prep Completed Prep Area Operative side, chest laterally, anterior & posterior, shoulder to waist Intraop Prep Integumentary WDL Assessment WDL Prep Agents Iodine Prep by NILSON PEREZ RN Hair Removal Last Modified By: Roxy Gunter RN 07/25/19 08:35:29 [facility] IntraOp Skin Prep Audit 07/25/19 10:20:17 Jammer Operator: PROFITDE Modifier: PROFITDE 1 <*> Procedure Thoracotomy/Lobectomy [facility] IntraOp Surgical Procedures Entry 1 Entry 2 Procedure Thoracotomy/Lobectomy Lymphadenectomy Modifiers Additional LEFT THORACOTOMY, LEFT Procedure UPPER LOBECTOMY, Description LYMPHADENECTOMY Primary Procedure Yes No Primary Surgeon BLAZE NAVAS MD-CAT SALLEY, ROBERT K, MD-CAT Start 07/25/19 08:34:00 07/25/19 08:34:00 Stop 07/25/19 10:31:00 07/25/19 10:31:00 Physician States Cecum Reached Anesthesia Type General General Specialty SN Cardio Thoracic SN Cardio Thoracic Wound Class II - Clean-Contaminated II - Clean-Contaminated Last Modified By: Roxy Gunter RN Proffitt, Debbie, RN 07/25/19 10:26:40 07/25/19 10:20:06 [facility] IntraOp Surgical Procedures Audit 07/25/19 10:54:15 Jammer Operator: PROFITDE Modifier: PROFITDE <+> 1 Stop <+> 2 Stop 07/25/19 10:26:40 Jammer Operator: PROFITDE Modifier: PROFITDE 1 <*> Procedure Thoracotomy/Lobectomy 1 <*> Additional Procedure Description LEFT THORACOTOMY, LEFT UPPER LOBECTOMY,THORACIC LYMPHADENECTOMY 07/25/19 10:25:58 Jammer Operator: PROFITDE Modifier: PROFITDE 1 <*> Procedure Thoracotomy/Lobectomy 1 <*> Additional Procedure Description (LT THORACOTOMY, LT UPPER LOBECTOMY) 07/25/19 10:20:06 Jammer Operator: PROFITDE Modifier: PROFITDE <+> 2 Procedure <+> 2 Primary Procedure <+> 2 Primary Surgeon <+> 2 Specialty <+> 2 Start <+> 2 Wound Class <+> 2 Anesthesia Type 07/25/19 08:41:00 Jammer Operator: PROFITDE Modifier: PROFITDE <+> 1 Start [facility] IntraOp Temp Regulation Devices Entry 1 Entry 2 Temp Regulation Temperature Warm blankets Forced Air Warming Regulation Device device Temperature 72862 Regulation Device Serial/Unit Number Temperature Full body Lower body Regulation Site Temperature Device 43 DEGREES C Setting Temperature Roxy Gunter RN Proffitt, Debbie, RN Regulation Device Applied by Temperature ON ARRIVAOL AND Regulation Comment DEPARTURE FROM THE O.R. Last Modified By: Roxy Gunter RN Proffitt, Debbie, RN 07/25/19 08:42:40 07/25/19 08:42:40 [facility] IntraOP Time Out Entry 1 Procedure to be Thoracotomy/Lobectomy Performed Time Out Time Out Pause Time 07/25/19 08:32:00 All activity Yes suspended (unless life threatening emergency) Team Verbally Correct patient Confirms Information identity, Correct side and site are marked, Consent form is present and accurate, Agreement on the procedure to be done, Correct patient position, Relevant images/results properly labeled/appropriately displayed, Confirm antibiotics have been administered, Confirm the skin prep has dried, Performed in location of procedure after prepped/draped, Performed before each procedure if multiple procedures, Reconcile problems if responses among team members differ Antibiotic Yes Prophylaxis Administered Or In Progress Within the Last 60 Minutes Beta Fabrice N/A Administered Venous Yes Thromboembolism Prophylaxis Required Anticipated Critical Events Surgeon None expected Anesthesia Provider Patient specific concerns Nursing Assures Sterility of instruments Essential Imaging Yes Labeled and Displayed Last Modified By: Roxy Gunter RN 07/25/19 10:20:17 [facility] IntraOP Time Out Audit 07/25/19 10:20:17 Jammer Operator: PROFITDE Modifier: PROFITDE 1 <*> Procedure to be Performed Thoracotomy/Lobectomy 07/25/19 08:34:01 Jammer Operator: PROFITDE Modifier: PROFITDE 1 <+> Time Out Pause Time 1 <*> Procedure to be Performed Thoracotomy/Lobectomy Case Comments <None> Finalized By: CUONG BRAND Document Signatures Signed By: Roxy Gunter RN 07/25/19 10:54 CUONG BRAND 07/26/19 11:44 Unfinalized History Date/Time Username Reason for Unfinalizing Freetext Reason for Unfinalizing 07/26/19 11:42 WATTSDR Correct Billing documented in this encounter Plan of Treatment Upcoming Encounters Date Type Department Care Team (Late st Contact Info) Description 05/14/2025 8:00 AM EST Lab Patient Walk-In [facility] - [place] [address] [place] [id number] 05/14/2025 8:30 AM EST Appointment [facility] [address] [place] [address] [place] [address] [place] [address] [address] [place] [address] 05/14/2025 10:00 AM EST Appointment [facility] - [address] [place] [address] [place] [address] [place] [address] [address] [place] [address] 05/14/2025 2:15 PM EST Office Visit [facility] - [address] [place] [address] Neptali Bergman MD [address] [place] [address] [address] [place] [address] documented as of this encounter Visit Diagnoses Not on filedocumented in this encounter Care Teams Salesperson Hosiery Relationship Specialty Start Date End Date Blaze Navas MD [address] [facility] [address] [place], [place] [id number] PCP - General Cardiothoracic Surgery 04/15/22 07/23/22 Marcell Uriostegui MD [address] [place] [address] [place] [address] PCP - General Adolescent Medicine 07/24/22 04/05/23 Heidi Rivers, MICROFILM CLERK [address] [facility] [address] [place] [address] PCP - General Nurse Practitioner 04/06/23 [place] [address] [place] [address] [address] [place] [address] Hematology and Oncology 10/31/24 documented as of this encounter
--- OUTSIDE RECORDS SUMMARY | 2025-04-30 09:27 | XMS_ITS | Encounter Summary ---
Author Organization [employer] ([place], [place], [place], [place], [place]) Address [address] [place] [address] Care Team Providers Care Analyst Microbiology Lab Name Role Phone Jonas Navas MD Primary Care Provider [phone] Marcell Uriostegui MD Primary Care Provider + [phone] Heidi Rivers APRN Primary Care Provider + [phone] Neptali Bergman MD Unavailable [phone] Encounter Details Date Type Department Care Team (Late st Contact Info) Description 05/23/2020 Transcribed Document [facility] [place] Medicine [facility] [place] [address] ProviderJennifer MD [address] [place] [address] Social History Tobacco Use Types Packs/Day Years Used Date Smoking Tobacco: Never Assessed Comments Unknown Sex and Gender Information Value Date Recorded Sex Assigned at Not on file Legal Sex Female 1:09 PM CDT Gender Identity Not on file Sexual Orientation Not on file documented as of this encounter Miscellaneous Notes * Cerner Conversion Note - Jennifer ProviderMD - 05/23/2020 12:55 PM GUARD RANGE Stroke/Warfarin Instructions Entered On: 05/23/2020 12:55 EST Performed On: 05/23/2020 12:55 EST by MEENAKSHI GONZALEZ, RN Stroke/Warfarin Instructions Stroke/TIA Discharge Ins : N/A Warfarin Discharge Ins : N/A MEENAKSHI GONZALEZ RN - 05/23/2020 12:55 EST Electronically signed by [facility] Conversion Transmission Superintendent Cerner at 09/10/2022 12:39 AM CDT documented in this encounter Plan of Treatment Upcoming Encounters Date Type Department Care Team (Late st Contact Info) Description 05/14/2025 8:00 AM EST Lab Patient Walk-In [facility] - [address] [place] [address] 05/14/2025 8:30 AM EST Appointment [facility] [address] [place] [address] Neptali Bergman MD [address] [place] [address] 05/14/2025 10:00 AM EST Appointment [facility] MRI - [address] [place] [address] Neptali Bergman MD [address] [place] [address] 05/14/2025 2:15 PM EST Office Visit [facility] - [address] [place] [address] Neptali Bergman MD [facility] [address] [place] [address] documented as of this encounter Visit Diagnoses Not on filedocumented in this encounter Care Teams Analyst Microbiology Lab Relationship Specialty Start Date End Date Jonas Navas MD [address] [facility] [address] [place] [address] PCP - General Cardiothoracic Surgery 04/15/22 07/23/22 Marcell Uriostegui MD [address] [place] [address] PCP - General Adolescent Medicine 07/24/22 04/05/23 Hedii Rivers HANDLE TURNER [address] [facility] [address] [place] [address] PCP - General Nurse Practitioner 04/06/23 Neptali Bergman MD [address] [facility] [address] [place] [address] Hematology and Oncology 10/31/24 documented as of this encounter
--- OUTSIDE RECORDS SUMMARY | 2025-04-30 09:27 | XMS_ITS | Encounter Summary ---
Author Organization [employer] ([place], [place], [place], [place], [place]) Address [address] [place] [address] Care Team Providers Care [employer] Professional Name Role Phone Jonas Navas MD Primary Care Provider [phone] Marcell Uriostegui MD Primary Care Provider + [phone] Heidi Rivers APRN Primary Care Provider + [phone] Neptali Bergman MD Unavailable [phone] Encounter Details Date Type Department Care Team (Late st Contact Info) Description 07/26/2019 Transcribed Document [facility] [place] [address] [place] [address] ProviderJennifer MD [address] [place] [address] Social History Tobacco Use Types Packs/Day Years Used Date Smoking Tobacco: Never Assessed Comments Unknown Sex and Gender Information Value Date Recorded Sex Assigned at Not on file Legal Sex Female 1:09 PM CDT Gender Identity Not on file Sexual Orientation Not on file documented as of this encounter Miscellaneous Notes * Cerner Conversion Note - Historical ProviderMD - 07/26/2019 4:55 PM TALENT ACQUISITION ASSISTANT Event Note Entered On: 07/26/2019 16:56 EST Performed On: 07/26/2019 16:55 EST by Ya Gonzalez RN Event Note Description of Event : Spoke with Dr. Albarran with anesthesia due to patient in significant pain. Order to give 6cc clinician bolus, increase rate to 10 and decrease Narcan rate to 12.5 Ya Gonzalez RN - 07/26/2019 16:55 EST Electronically signed by [facility] Conversion Physical Scientist Cerner at 09/10/2022 12:40 AM CDT documented in this encounter Plan of Treatment Upcoming Encounters Date Type Department Care Team (Late st Contact Info) Description 05/14/2025 8:00 AM EST Lab Patient Walk-In [facility] - [address] [place] [address] 05/14/2025 8:30 AM EST Appointment [facility] [address] [place] [address] Neptali Bergman MD [address] [facility] [address] [place] [address] 05/14/2025 10:00 AM EST Appointment [facility] MRI - [address] [place] [address] Neptali Bergman MD [facility] [address] [place] [address] 05/14/2025 2:15 PM EST Office Visit [facility] - [address] [place] [address] Neptali Bergman MD [facility] [address] [place] [address] documented as of this encounter Visit Diagnoses Not on filedocumented in this encounter Care Teams [employer] Professional Relationship Specialty Start Date End Date Jonas Navas MD [address] [facility] [address] [place] [address] PCP - General Cardiothoracic Surgery 04/15/22 07/23/22 Marcell Uriostegui MD [address] [place] [address] [place] [address] PCP - General Adolescent Medicine 07/24/22 04/05/23 Heidi Rivers APRN [address] [facility] [address] [place] [address] PCP - General Nurse Practitioner 04/06/23 Neptali Bergman MD [address] [facility] [address] [place] [address] Hematology and Oncology 10/31/24 documented as of this encounter
--- OUTSIDE RECORDS SUMMARY | 2025-04-30 09:27 | XMS_ITS | Encounter Summary ---
Author Organization [employer] ([place], [place], [place], [place], [place]) Address [address] [place] [address] Care Team Providers Care Cardiovascular Rn Name Role Phone Jonas Navas MD Primary Care Provider [phone] Marcell Uriostegui MD Primary Care Provider + [phone] Heidi Rivers APRN Primary Care Provider + [phone] Neptali Bergman MD Unavailable [phone] Encounter Details Date Type Department Care Team (Late st Contact Info) Description 05/23/2020 Transcribed Document [facility] [place] [facility] [place] [address] ProviderJennifer MD [address] [place] [address] Social History Tobacco Use Types Packs/Day Years Used Date Smoking Tobacco: Never Assessed Comments Unknown Sex and Gender Information Value Date Recorded Sex Assigned at Not on file Legal Sex Female 1:09 PM CDT Gender Identity Not on file Sexual Orientation Not on file documented as of this encounter Miscellaneous Notes * Cerner Conversion Note - Jennifer ProviderMD - 05/23/2020 12:55 PM EMAIL ADMINISTRATOR UM Authorization Entered On: 05/23/2020 12:57 EST Performed On: 05/23/2020 12:55 EST by Georgina Draper Rn-Utilization Review Primary Insurance Authorization Authorization and Policy Numbers : Insurance 1 Health Plan: [employer] Policy Number: [id number] Authorization Number: [id number] Insurance Primary Name : [facility] Policy Number: [id number] Authorization Status-Primary : Awaiting callback Reference Number-Primary : [id number] Authorization Number-Primary : [id number] Number of Days Authorized-Primary : 0 Day(s) Authorized Service Begin Date-Primary : 05/22/2020 EST Authorized Service End Date-Primary : 05/22/2020 EST Authorization Comments-Primary : CLINICAL FAXED FOR JUSTIN/LOS Historical Authorization Comments-Primary : Comment 1: Ester approved per availity for 1 day inpt (NORI VALVERDE, RN-Utilization Review 05/21/2020 11:15) Georgina Draper Rn-Utilization Review - 05/23/2020 12:55 EST Electronically signed by [facility] Conversion Cripple Chaser Cerner at 09/10/2022 12:31 AM CDT documented in this encounter Plan of Treatment Upcoming Encounters Date Type Department Care Team (Late st Contact Info) Description 05/14/2025 8:00 AM EST Lab Patient Walk-In [facility] - [address] [place] [address] 05/14/2025 8:30 AM EST Appointment [facility] [place] [facility] [address] [facility] [address] [place] [address] [place] [address] [place] [address] [address] [place] [address] 05/14/2025 10:00 AM EST Appointment [facility] [address] [facility] [address] [place] [address] Neptali Bergman MD [address] [place] [address] 05/14/2025 2:15 PM EST Office Visit [facility] - [address] [place] [address] Neptali Bergman MD [address] [place] [address] documented as of this encounter Visit Diagnoses Not on filedocumented in this encounter Care Teams Cardiovascular Rn Relationship Specialty Start Date End Date Jonas Navas MD [address] [facility] [address] [place] [address] PCP - General Cardiothoracic Surgery 04/15/22 07/23/22 Marcell Uriostegui MD [address] [facility] [address] [place] [address] PCP - General Adolescent Medicine 07/24/22 04/05/23 Heidi Rivers APRN [address] [facility] [address] [place] [address] PCP - General Nurse Practitioner 04/06/23 Neptlai Bergman MD [address] [facility] [address] [place] [address] Hematology and Oncology 10/31/24 documented as of this encounter
--- OUTSIDE RECORDS SUMMARY | 2025-04-30 09:27 | XMS_ITS | Encounter Summary ---
Author Organization [employer] ([place], [place], [place], [place], [place]) Address [address] [place] [address] Care Team Providers Care Licensing Court Magistrate Name Role Phone Jonas Navas MD Primary Care Provider [phone] Marcell Uriostegui MD Primary Care Provider [phone] Heidi Rivers APRN Primary Care Provider + [phone] Neptali Bergman MD Unavailable [phone] Encounter Details Date Type Department Care Team (Late st Contact Info) Description 05/23/2020 Transcribed Document [facility] [place] Medicine [place] [address] ProviderJennifer MD [address] [place] [address] Social History Tobacco Use Types Packs/Day Years Used Date Smoking Tobacco: Never Assessed Comments Unknown Sex and Gender Information Value Date Recorded Sex Assigned at Not on file Legal Sex Female 1:09 PM CDT Gender Identity Not on file Sexual Orientation Not on file documented as of this encounter Miscellaneous Notes * Cerner Conversion Note - Jennifer ProviderMD - 05/23/2020 12:55 PM AREA SUPERVISOR [place] [address] ALEJANDRINA YEH :1955 Visit Time:05/22/2020 Your Visit Summary Your Care Team Admitting Physician - HEIDY GAYTAN MD-SNU Attending Physician - HEIDY GAYTAN, MD-SNU Your Diagnosis Other spondylosis with myelopathy, lumbar region, Other spondylosis with myelopathy, lumbar region Spondylolisthesis Discharge Vitals Heart Rate (Monitored) 81 Blood Pressure 113/52 What to do next Instructions From Your Care Team Diet after Discharge: Resume usual diet as tolerated, _, _ Fluid Restriction after Discharge: _ Activity after Discharge: no bending. lifting, or twisting, _, No strenuous activity Lifting Restrictions: No heavy lifting over 10 pounds Weight Bearing: _ Bedrest: _ Driving after Discharge: Do not drive May Return to Work/School: Showering/Bathing: May shower, No tub bathing, soaking or swimming Notify Provider of: temp>101, increased redness, foul smelling drainage Wound/Incision Care after Discharge: Keep operative site/wound site clean and dry, Change dressing with dry dressing daily and as needed Medical Equipment for Home Use: Home Health Services: Community Services: Discharge Activity: Discharge Activity: No heavy lifting over 10 lbs Diet: Discharge Diet: Resume usual diet as tolerated Follow-Up Appointments Follow Up with HEIDY GAYTAN When 06/27/2020 01:45 PM EST Comments xrays at [facility] on [facility] at 1:45 PM prior to appointment at 2:30 PM Where: [facility] (WEDNESDAY ONLY) [place] [address]- Business (1) Follow Up with HEIDY GAYTAN When 06/06/2020 03:45 PM EST Comments staple removal Where: [address] (WEDNESDAY ONLY) [place] [address]- Business (1) Medications What How Much When Instructions Next Dose acetaminophen-hydrocodone ([place] 10 mg-325 mg oral tablet) 1 Tablet(s) Oral Every 4 Hours as needed for for pain as needed cyclobenzaprine (cyclobenzaprine 10 mg oral tablet) 1 Tablet(s) Oral Three Times A Day as needed for as needed for spasm Refills: 1 as needed albuterol 2 puffs Inhalation Every 6 Hours as needed for as needed for shortness of breath or wheezing as needed ALPRAZolam 0.25 Milligram(s) Oral At Bedtime as needed for Insomnia as needed aspirin 325 Milligram(s) Oral Every Day restart on pod 3 (on ) 05/25/20 atorvastatin 40 Milligram(s) Oral At Bedtime tonight fluticasone nasal (fluticasone 50 mcg/ inh nasal spray) 2 Jefferson(s) Nasal Every Day as needed for Congestion as needed fluticasone-salmeterol (Advair Diskus 250 mcg-50 mcg inhalation powder) 1 Puff(s) Inhalation Two Times A Day tonight hydrochlorothiazide-lisinopril (hydroCHLOROthiazide-lisinopril 25 mg-20 mg oral tablet) 1 Tablet(s) Oral Every Day tomorrow omeprazole 20 Milligram(s) Oral Every Day tomorrow Take your medications faithfully. Do NOT skip [...] This Visit No Immunizations Found Education Materials Spinal Fusion, Adult, Care After This sheet gives you information about how to care for yourself after your procedure. Your doctor may also give you more specific instructions. If you have problems or questions, contact your doctor. Follow these instructions at home: Medicines ??? Take qzco-loa-ejsmdzy and prescription medicines only as told by [...] Leave the ice on for 20 minutes, 2???3 times a day. Surgery cut care ??? Follow instructions from your doctor about how to take care of your cut from surgery (incision). Make sure you: ? Wash your hands with soap and water before you change your bandage (dressing). If you cannot use soap and water, use hand labor relations supervisor. ? Change your bandage as told by [...] your pee (urine) pale yellow. ? Take ttod-dia-gccpcaz or prescription medicines. ? Eat foods that [...] 09/03/2011 Document Revised: 08/31/2019 Document Reviewed: 08/24/2017 [employer] Patient Education ?? 2020 [employer]. acetaminophen and hydrocodone (a SEET a MIN oh fen and kendrick droe KOE done) Hycet, Lorcet, [place], Verdrocet, Vicodin, Xodol, Zamicet What is the most important information I should know about acetaminophen and hydrocodone? MISUSE OF OPIOID MEDICINE CAN CAUSE ADDICTION, OVERDOSE, OR . Keep the medication in a place where others cannot get to it. Taking opioid medicine during may cause life-threatening [...] blistering and peeling. What is acetaminophen and hydrocodone? Acetaminophen and hydrocodone is a combination medicine used to relieve moderate to severe pain. Acetaminophen and hydrocodone may also be used for purposes not listed in this medication guide. What should I discuss with my healthcare provider before taking acetaminophen and hydrocodone? You should not use this medicine if you are allergic to acetaminophen or hydrocodone, or if you have: ?? severe asthma or breathing problems; or ?? a blockage in your stomach or intestines. Tell your doctor if you have ever had: ?? breathing problems, sleep apnea; ?? liver disease; ?? a drug or [...] medical treatment for several weeks. Do not breastfeed. This medicine can pass into breast milk and cause drowsiness, breathing problems, or in a nursing baby. How should I take acetaminophen and hydrocodone? Follow all directions on your prescription label. Never take this medicine in larger amounts, or for longer than prescribed. An overdose can damage your liver or cause . Tell your doctor if you feel an increased urge to use more of this medicine. Never share this medicine with another person, especially someone with a history of drug abuse or addiction. MISUSE CAN CAUSE ADDICTION, OVERDOSE, OR . Keep the medicine in a place where others cannot get to it. Selling or giving away acetaminophen and hydrocodone is against the law. Measure liquid medicine [...] at . An overdose of acetaminophen and hydrocodone can be fatal. The first signs of [...] should I avoid while taking acetaminophen and hydrocodone? Avoid driving or operating machinery until you [...] the possible side effects of acetaminophen and hydrocodone? Get emergency medical help if you have [...] you have: ?? noisy breathing, sighing, shallow breathing, breathing that stops during sleep; ?? a light-headed feeling, like you might pass out; ?? liver problems--nausea, upper stomach pain, tiredness, [...] include: ?? dizziness, drowsiness, feeling tired; ?? nausea, vomiting, stomach pain; ?? constipation; or ?? headache. This is not a complete list of side effects and others may occur. Call your doctor for medical advice about side effects. You may report side effects to FDA at 9-167-ISU-0478. What other drugs will affect acetaminophen and hydrocodone? You may have breathing problems or withdrawal [...] complete. Other drugs may affect acetaminophen and hydrocodone, including prescription and unuu-lsd-lizcali medicines, vitamins, and herbal products. Not all possible interactions are listed here. Where can I get more information? Your doctor or pharmacist can provide more information about acetaminophen and hydrocodone. Remember, keep this and all other medicines out of the reach of children, never share your medicines with others, and use this medication only for the indication prescribed. Every effort has been made to ensure that the information provided by [employer]') is accurate, up-to-date, and complete, but no guarantee is made to that effect. Drug information contained herein may be time sensitive. [employer] information has been compiled for use by healthcare practitioners and consumers in the [place] and therefore [employer] does not warrant that uses outside of the [place] are appropriate, unless specifically indicated otherwise. [employer] drug information does not endorse drugs, diagnose patients or recommend therapy. [employer] drug information is an informational resource designed [...] effective or appropriate for any given patient. [employer] does not assume any responsibility for any aspect of healthcare administered with the aid of information [employer] provides. The information contained herein is not intended to cover all possible uses, directions, precautions, warnings, drug interactions, allergic reactions, or adverse effects. If you have questions about the drugs you are taking, check with your doctor, nurse or pharmacist. Copyright 2696-4777 [employer] Version: 16.01. Revision Date: 06/14/2019. cyclobenzaprine (yoly naik) Mayitoix, Sayra Pac with Cyclobenzaprine, Fexmid What is the most important information I should know about cyclobenzaprine? You should not use cyclobenzaprine if you have a thyroid disorder, heart block, congestive heart failure, a heart rhythm disorder, or you have recently had a heart attack. Do not use cyclobenzaprine if you have taken an MAO inhibitor in the past 14 days, such as isocarboxazid, linezolid, phenelzine, rasagiline, selegiline, or tranylcypromine. What is cyclobenzaprine? Cyclobenzaprine is a muscle relaxant. It works by blocking nerve impulses (or pain sensations) that are sent to your brain. Cyclobenzaprine is used together with rest and physical therapy to relieve muscle spasms caused by painful conditions such as an injury. Cyclobenzaprine may also be used for purposes not listed in this medication guide. What should I discuss with my healthcare provider before taking cyclobenzaprine? You should not use cyclobenzaprine if you are allergic to it, or if you have: ?? a thyroid disorder; ?? heart block, heart rhythm disorder, congestive heart failure; or ?? if you have recently had a heart attack. Cyclobenzaprine is not approved for use by anyone younger than 15 years old. Do not use cyclobenzaprine if you have taken an MAO inhibitor in the past 14 days. A dangerous drug interaction could occur. MAO inhibitors include isocarboxazid, linezolid, phenelzine, rasagiline, selegiline, and tranylcypromine. Some medicines can interact with cyclobenzaprine and cause a serious condition called serotonin syndrome. Be sure your doctor knows if you also take stimulant medicine, opioid medicine, herbal products, or medicine for depression, mental illness, Parkinson's disease, migraine headaches, serious infections, or prevention of nausea and vomiting. Ask your doctor before making any changes in how or when you take your medications. Tell your doctor if you have ever had: ?? liver disease; ?? glaucoma; ?? enlarged prostate; or ?? problems with urination. It is not known whether this medicine will harm an unborn baby. Tell your doctor if you are or plan to become . It may not be safe to breast-feed while using this medicine. Ask your doctor about any risk. Older adults may be more sensitive to the effects of this medicine. How should I take cyclobenzaprine? Follow all directions on your prescription label and read all medication guides or instruction sheets. Your doctor may occasionally change your dose. Use the medicine exactly as directed. Cyclobenzaprine is usually taken once daily for only 2 or 3 weeks. Follow your doctor's dosing instructions very carefully. Swallow the capsule whole and do not crush, chew, break, or open it. Take the medicine at the same time each day. Call your doctor if your symptoms do not improve after 3 weeks, or if they get worse. Store at room temperature away from moisture, heat, and light. What happens if I miss a dose? Take the medicine as soon as you can, but skip the missed dose if it is almost time for your next dose. Do not take two doses at one time. What happens if I overdose? Seek emergency medical attention or call the Poison Help line at . An overdose of cyclobenzaprine can be fatal. Overdose symptoms may include severe drowsiness, vomiting, fast heartbeats, tremors, agitation, or hallucinations. What should I avoid while taking cyclobenzaprine? Avoid driving or hazardous activity until you know how this medicine will affect you. Your reactions could be impaired. Avoid drinking alcohol. Dangerous side effects could occur. What are the possible side effects of cyclobenzaprine? Get emergency medical help if you have signs of an allergic reaction: hives; difficult breathing; swelling of your face, lips, tongue, or throat. Stop using cyclobenzaprine and call your doctor at once if you have: ?? fast or irregular heartbeats; ?? chest pain or pressure, pain spreading to your jaw or shoulder; or ?? sudden numbness or weakness (especially on one side of the body), slurred speech, balance problems. Seek medical attention right away if you have symptoms of serotonin syndrome, such as: agitation, hallucinations, fever, sweating, shivering, fast heart rate, muscle stiffness, twitching, loss of coordination, nausea, vomiting, or diarrhea. Serious side effects may be more likely in older adults. Common side effects may include: ?? drowsiness, tiredness; ?? headache, dizziness; ?? dry mouth; or ?? upset stomach, nausea, constipation. This is not a complete list of side effects and others may occur. Call your doctor for medical advice about side effects. You may report side effects to FDA at 4-084-EVJ-9390. What other drugs will affect cyclobenzaprine? Using cyclobenzaprine with other drugs that make you drowsy can worsen this effect. Ask your doctor before using opioid medication, a sleeping pill, a muscle relaxer, or medicine for anxiety or seizures. Tell your doctor about all your other medicines, especially: ?? bupropion (Zyban, for smoking cessation); ?? meperidine; ?? tramadol; ?? verapamil; ?? cold or allergy medicine that contains an antihistamine (Benadryl and others); ?? medicine to treat Parkinson's disease; ?? medicine to treat excess stomach acid, stomach ulcer, motion sickness, or irritable bowel syndrome; ?? medicine to treat overactive bladder; or ?? bronchodilator asthma medication. This list is not complete. Other drugs may affect cyclobenzaprine, including prescription and hhva-rfz-dpiqhje medicines, vitamins, and herbal products. Not all possible drug interactions are listed here. Where can I get more information? Your pharmacist can provide more information about cyclobenzaprine. Remember, keep this and all other medicines out of the reach of children, never share your medicines with others, and use this medication only for the indication prescribed. Every effort has been made to ensure that the information provided by [employer]') is accurate, up-to-date, and complete, but no guarantee is made to that effect. Drug information contained herein may be time sensitive. [employer] information has been compiled for use by healthcare practitioners and consumers in the [place] and therefore [employer] does not warrant that uses outside of the [place] are appropriate, unless specifically indicated otherwise. [employer] drug information does not endorse drugs, diagnose patients or recommend therapy. [employer] drug information is an informational resource designed [...] effective or appropriate for any given patient. [employer] does not assume any responsibility for any aspect of healthcare administered with the aid of information [employer] provides. The information contained herein is not intended to cover all possible uses, directions, precautions, warnings, drug interactions, allergic reactions, or adverse effects. If you have questions about the drugs you are taking, check with your doctor, nurse or pharmacist. Copyright 5995-0562 [employer] Version: 5.01. Revision Date: 02/16/2018. Emergency Awareness and Preventative Care STROKE is [...] Assistance with quitting is available by contacting 4-081-GWOENOW. This is a free resource providing counseling, support, and referral. Or you may contact your personal physician. [employer] Suicide Prevention Lifeline: The National Suicide Prevention [...] This Visit (last charted value for your 05/22/2020 visit) Hematology 05/23/2020 3:40 AM WBC: 13.9 K/uL -- Normal range between ( 4.5 and 10.5 ) RBC: 3.50 Million/uL -- Normal range between ( 3.93 and 5.22 ) Hct: 30.3 % -- Normal range between ( 34.1 and 44.9 ) Hgb: 9.4 g/dL -- Normal range between ( 11.2 and 15.7 ) Platelet Count: 263 K/uL -- Normal range between ( 163 and 369 ) MCH: 26.9 pg -- Normal range between ( 25.6 and 32.2 ) MCHC: 31.0 Gram/dL -- Normal range between ( 32.2 and 36.5 ) MCV: 86.6 fL -- Normal range between ( 79.0 and 94.8 ) Slide Review: No Eos %: 0.0 % -- Normal range between ( 0.0 and 7.0 ) Foster #: 0.62 K/uL -- Normal range between ( 0.16 and 1.00 ) Eos #: 0.00 x10(3)/uL -- Normal range between ( 0.00 and 0.80 ) Foster %: 4.5 % -- Normal range between ( 3.0 and 9.0 ) Baso %: 0.1 % -- Normal range between ( 0.0 and 1.5 ) Baso #: 0.02 x10(3)/uL -- Normal range between ( 0.00 and 0.20 ) RDW: 16.1 % -- Normal range between ( 11.7 and 14.9 ) Neut %: 86.9 % -- Normal range between ( 34.0 and 71.0 ) Neut #: 12.10 K/uL -- Normal range between ( 1.56 and 6.13 ) Lymph %: 7.9 % -- Normal range between ( 19.3 and 53.1 ) Lymph #: 1.10 x10(3)/uL -- Normal range between ( 1.00 and 3.90 ) MPV: 9.9 fL -- Normal range between ( 9.4 and 12.4 ) IG#: 0.08 x10(3)/uL -- Normal range between ( 0.00 and 0.05 ) IG%: 0.60 % -- Normal range between ( 0.00 and 0.60 ) Urinalysis 05/20/2020 11:55 AM Urine Nitrite: Negative Urine Leukocyte Esterase: Moderate Ur Epithelial Cells: 2-5 /HPF Urine Appearance: Clear Urine Glucose Dipstick: Negative Urine Blood Dipstick: Negative Urine Urobilinogen Dipstick: 0.2 EU/dL Urine Protein Dipstick: Negative Ur Bacteria: 2+ Urine Color: Yellow Ur WBC: 2-5 /HPF Urine Ketones Dipstick: Negative Urine pH Dipstick: *5.0 -- Normal range between ( 6.0 and 8.0 ) Urine Bilirubin Dipstick: Negative Urine Specific [place]: 1.014 -- Normal range between ( 1.005 and 1.030 ) Urine Type.: U CleanCatch Microbiology 05/20/2020 12:45 PM Novel Coronavirus 2019: Negative 05/20/2020 11:55 AM Urine Culture: See Result General Chemistry 05/23/2020 11:03 AM Glucose POC2: 165 mg/dL -- Normal range between ( 70 and 110 ) Device Comment 1: Device Comment 1 05/23/2020 3:40 AM Creatinine Level: 1.10 mg/dL -- Normal range between ( 0.55 and 1.02 ) Sodium Level: 136 mmol/L -- Normal range between ( 136 and 146 ) Potassium Level: 4.2 mmol/L -- Normal range between ( 3.5 and 5.1 ) Chloride Level: 103 mmol/L -- Normal range between ( 102 and 112 ) Carbon Dioxide Level: 27 mmol/L -- Normal range between ( 21 and 32 ) Anion Gap: 10 -- Normal range between ( 9 and 20 ) Bun/Creatinine: 20.9 -- Normal range between ( 8.0 and 20.0 ) Calcium Level: 8.9 mg/dL -- Normal range between ( 8.4 and 10.1 ) eGFR : >60 mL/min/1.73m2 eGFR NonAfrican: 50 mL/min/1.73m2 Glucose Level: 154 mg/dL -- Normal range between ( 74 and 106 ) Blood Urea Nitrogen: 23 mg/dL -- Normal range between ( 7 and 22 ) 05/22/2020 10:50 AM Potassium POC: 4.0 mmol/L -- Normal range between ( 3.5 and 4.9 ) Glucose POC: 126 mg/dL -- Normal range between ( 70 and 105 ) Patient Name:ALEJANDRINA YEH I have received and understand this information and was given the opportunity to ask questions. 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 Chainstitch Name: 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 Chainstitch Signature: Relationship to Patient: Clinician/Hospital Tunnel Elastic Operator Chainstitch Signature: Date: documented in this encounter Plan of Treatment Upcoming Encounters Date Type Department Care Team (Late st Contact Info) Description 05/14/2025 8:00 AM EST Lab Patient [facility] - [address] [place] [id number] 05/14/2025 8:30 AM EST Appointment [facility] [address] [place] [address] Neptali Bergman MD [address] [place] [address] 05/14/2025 10:00 AM EST Appointment [facility] [address] [place] [address] Neptali Bergman MD [address] [place] [address] 05/14/2025 2:15 PM EST Office Visit [facility] - [address] [facility] [address] [place] [address] Neptali Bergman MD [address] [place] [address] documented as of this encounter Visit Diagnoses Not on filedocumented in this encounter Care Teams Licensing Court Magistrate Relationship Specialty Start Date End Date Jonas Navas MD [address] [facility] [address] [place], [place] [id number] PCP - General Cardiothoracic Surgery 04/15/22 07/23/22 Marcell Uriostegui MD [address] [place] [address] PCP - General Adolescent Medicine 07/24/22 04/05/23 Heidi Rivers, PROJECT ADMINISTRATOR [address] [facility] [address] [place] [address] PCP - General Nurse Practitioner 04/06/23 Neptali Bergman MD [address] [place] [address] Hematology and Oncology 10/31/24 documented as of this encounter
--- OUTSIDE RECORDS SUMMARY | 2025-04-30 09:27 | XMS_ITS | Encounter Summary ---
Author Organization [employer] ([place], [place], [place], [place], [place]) Address [address] [place] [address] Care Team Providers Care Retail Loan Originator Assistant Name Role Phone Blaze Walden MD Primary Care Provider [phone] Marcell Uriostegui MD Primary Care Provider + [phone] Heidi Rivers APRN Primary Care Provider + [phone] Neptali Bergman MD Unavailable [phone] Encounter Details Date Type Department Care Team (Late st Contact Info) Description 07/25/2019 Transcribed Document [facility] [place] [facility] [place] [address] ProviderJennifer MD [address] [place] [address] Social History Tobacco Use Types Packs/Day Years Used Date Smoking Tobacco: Never Assessed Comments Unknown Sex and Gender Information Value Date Recorded Sex Assigned at Not on file Legal Sex Female 1:09 PM CDT Gender Identity Not on file Sexual Orientation Not on file documented as of this encounter Miscellaneous Notes * Cerner Conversion Note - Jennifer ProviderMD - 07/25/2019 8:34 AM 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 Name: ALEJANDRINA YEH /Sex: 1955 Female Med Rec #: [id number] Physician: BLAZE WALDEN MD-[facility] Financial #: [id number] Pt. Type: I Room/Bed: ASA/7 Admit/Disch: 07/25/19 07:00:00 - Institution: [facility] PreOp Case Times Entry 1 In Preop 07/25/19 05:30:00 Ready for Holding n/a Room Patient Ready for 07/25/19 06:47:00 Surgery Patient Out of Preop 07/25/19 07:13:00 Patient Out of n/a Holding Room Last Modified By: BRINA CACERES 07/25/19 13:44:46 [facility] PreOp Case Times Audit 07/25/19 13:44:46 Latex Caster: [email or web address] Modifier: [email or web address] <+> 1 Patient Out of Preop Finalized By: BRINA CACERES Document Signatures Signed By: BRINA CACERES 07/25/19 13:44 Electronically signed by Hossein [facility] Conversion Patternmaker Bench Cerner at 09/10/2022 12:40 AM CDT documented in this encounter Plan of Treatment Upcoming Encounters Date Type Department Care Team (Late st Contact Info) Description 05/14/2025 8:00 AM EST Lab Patient Walk-In [place] [facility] - [address] [place] [address] 05/14/2025 8:30 AM EST Appointment [facility] [place] [address] [facility] [address] [place] [address] [facility] [address] [place] [address] 05/14/2025 10:00 AM EST Appointment [place] [facility] - [address] [facility] [address] [place] [address] Neptali Bergman MD [address] [place] [address] 05/14/2025 2:15 PM EST Office Visit [place] [facility] - [place] [address] [place] [address] Neptali Bergman MD [address] [facility] [address] [place] [address] documented as of this encounter Visit Diagnoses Not on filedocumented in this encounter Care Teams Retail Loan Originator Assistant Relationship Specialty Start Date End Date Blaze Walden MD [address] [facility] [address] [place], [place] [address] PCP - General Cardiothoracic Surgery 04/15/22 07/23/22 Marcell Uriostegui MD [address] [place] [facility] [address] [place] [address] PCP - General Adolescent Medicine 07/24/22 04/05/23 Heidi Rivers, EDUCATIONAL RECRUITER [address] [facility] [address] [place] [address] PCP - General Nurse Practitioner 04/06/23 Neptali Bergman MD [address] [facility] [address] [place] [address] Hematology and Oncology 10/31/24 documented as of this encounter
--- OUTSIDE RECORDS SUMMARY | 2025-04-30 09:27 | XMS_ITS | Encounter Summary ---
Author Organization [employer] ([place], [place], [place], [place], [place]) Address [address] [place] [address] Care Team Providers Care Sap Technical Developer Name Role Phone Jonas Navas MD Primary Care Provider [phone] Marcell Uriostegui MD Primary Care Provider + [phone] Heidi Rivers APRN Primary Care Provider + [phone] Lu Bergman MD Unavailable [phone] Encounter Details Date Type Department Care Team (Late st Contact Info) Description 2020 Transcribed Document [facility] [place] [facility] [address] ProviderJennifer MD [address] [place] [address] Social History Tobacco Use Types Packs/Day Years Used Date Smoking Tobacco: Never Assessed Comments Unknown Sex and Gender Information Value Date Recorded Sex Assigned at Not on file Legal Sex Female 1:09 PM CDT Gender Identity Not on file Sexual Orientation Not on file documented as of this encounter Miscellaneous Notes * Cerner Conversion Note - Jennifer ProviderMD - 2020 9:00 AM CDT Consult Phone Call Documentation Entered On: 2020 9:27 EDT Performed On: 2020 9:00 EDT by Natalia Russ Care Asst-Health Unit Coord Phone Call for Consults Consult Phone Call/Page Attempt : First call Consult Reason : lung cancer Physician Requesting Consult : HAJA YUAN, DO-INT Physician Requested for Consult : LU BERGMAN MD-ONC Provider Service Notified Name : Medical oncology Physician Covering for Consult : LU BERGMAN MD-ONC Consult, Additional Information : patient already being seen by Natalia Plata, [facility] Coord - 2020 9:10 EDT documented in this encounter Plan of Treatment Upcoming Encounters Date Type Department Care Team (Late st Contact Info) Description 05/14/2025 8:00 AM EST Lab Patient Walk-In [place] [facility] - [place] [address] [place] [address] 05/14/2025 8:30 AM EST Appointment [facility] [place] [address] [facility] [address] [place] [address] Lu Bergman MD [address] [place] [address] [address] [place] [address] 05/14/2025 10:00 AM EST Appointment [facility] - [address] [facility] [address] [place] [address] Lu Bergman MD [address] [place] [address] [address] [place] [address] 05/14/2025 2:15 PM EST Office Visit [facility] - [place] [address] [place] [address] Lu Bergman MD [address] [place] [address] [address] [place] [address] documented as of this encounter Visit Diagnoses Not on filedocumented in this encounter Care Teams Sap Technical Developer Relationship Specialty Start Date End Date Jonas Navas MD [address] [facility] [address] [place] [id number] PCP - General Cardiothoracic Surgery 04/15/22 07/23/22 Marcell Uriostegui MD [address] [place] [address] [place] [address] PCP - General Adolescent Medicine 07/24/22 04/05/23 Heidi Rivers APRN [address] [facility] [address] [place] [address] PCP - General Nurse Practitioner 04/06/23 Lu Bergman MD [address] [facility] [address] [place] [address] Hematology and Oncology 10/31/24 documented as of this encounter
--- OUTSIDE RECORDS SUMMARY | 2025-04-30 09:27 | XMS_ITS | Encounter Summary ---
Author Organization [employer] ([place], [place], [place], [place], [place]) Address [address] [place] [address] Care Team Providers Care Digital Librarian Name Role Phone Jonas Navas MD Primary Care Provider [phone] Marcell Uriostegui MD Primary Care Provider + [phone] Heidi Rivers APRN Primary Care Provider + [phone] Neptali Bergman MD Unavailable [phone] Encounter Details Date Type Department Care Team (Late st Contact Info) Description 05/23/2020 Transcribed Document [facility] [place] [address] [place] [address] ProviderJennifer MD [address] [place] [address] Social History Tobacco Use Types Packs/Day Years Used Date Smoking Tobacco: Never Assessed Comments Unknown Sex and Gender Information Value Date Recorded Sex Assigned at Not on file Legal Sex Female 1:09 PM CDT Gender Identity Not on file Sexual Orientation Not on file documented as of this encounter Miscellaneous Notes * Cerner Conversion Note - Jennifer ProviderMD - 05/23/2020 12:54 PM ASSIGNMENT EDITOR Final Discharge Planning Entered On: 05/23/2020 12:54 EST Performed On: 05/23/2020 12:54 EST by SUNG OWENS RN-Domestic Violence Advocate Final Discharge Planning Discharge Arrangements : Patient Post-Acute Information Patient Name: ALEJANDRINA YEH Gender: Female : [birth year] Age: 64 Years No Post-Acute Placement(s) Listed No Post-Acute Service(s) Listed No [place] Referral(s) Listed Patient Offered Choice/Affiliations Explained : Yes Designation of Choice Signed : Yes Important Medicare Message Reviewed With : Other: Commercial Transportation Needs : Family/Friend Follow Up Appointment Scheduled : Yes Is Patient High/Moderate Readmission Risk? : No Patient/Family Notified of Plan : Yes Support Person/Pt Rep Notified of Plan : Yes Patient/Family Notified : Spouse Is Patient Ready for Discharge? : Yes Physician Notified Patient is Ready for Discharge? : Yes Discharge To Care Management : Home/Residential/Detention or Self Care - SUNG OWENS RN-Domestic Violence Advocate - 05/23/2020 12:54 EST Electronically signed by Hossein [facility] Conversion Java Technical Architect Cerner at 09/10/2022 12:38 AM CDT documented in this encounter Plan of Treatment Upcoming Encounters Date Type Department Care Team (Late st Contact Info) Description 05/14/2025 8:00 AM EST Lab Patient Walk-In [place] [facility] - [place] [address] [place] [address] 05/14/2025 8:30 AM EST [facility]ment [facility] [address] [place] [address] [place] [address] [place] [address] [address] [place] [address] 05/14/2025 10:00 AM EST Appointment [facility] MRI - [address] [place] [address] [place] [address] [place] [address] [address] [place] [address] 05/14/2025 2:15 PM EST Office Visit [place] [facility] - [place] [address] [place] [address] Neptali Bergman MD [address] [facility] [address] [place] [address] documented as of this encounter Visit Diagnoses Not on filedocumented in this encounter Care Teams Digital Librarian Relationship Specialty Start Date End Date Jonas Navas MD [address] [facility] [address] [place] [address] PCP - General Cardiothoracic Surgery 04/15/22 07/23/22 Marcell Uriostegui MD [address] [place] [address] [place] [address] PCP - General Adolescent Medicine 07/24/22 04/05/23 Heidi Rivers APRN [address] [facility] [address] [place] [address] PCP - General Nurse Practitioner 04/06/23 Neptali Bergman MD [address] [facility] [address] [place] [address] Hematology and Oncology 10/31/24 documented as of this encounter
--- OUTSIDE RECORDS SUMMARY | 2025-04-30 09:27 | XMS_ITS | Encounter Summary ---
Author Organization [employer] ([place], [place], [place], [place], [place]) Address [address] [place] [address] Care Team Providers Care Sieve Maker Name Role Phone Jonas Navas MD Primary Care Provider [phone] Marcell Uriostegui MD Primary Care Provider + [phone] Heidi Rivers APRN Primary Care Provider [phone] Neptali Bergman MD Unavailable [phone] Encounter Details Date Type Department Care Team (Late st Contact Info) Description 2020 Transcribed Document [facility] Pulm & Critical Care Medicine [address] [place] [address] [address] [place] [address] [place] [address] [address] [place] [id number] Social History Tobacco Use Types Packs/Day Years Used Date Smoking Tobacco: Never Assessed Comments Unknown Sex and Gender Information Value Date Recorded Sex Assigned at Not on file Legal Sex Female 1:09 PM CDT Gender Identity Not on file Sexual Orientation Not on file documented as of this encounter Miscellaneous Notes * Cerner Conversion Note - Linda Gaytan MD - 2020 2:17 AM EDT Patient: ALEJANDRINA ELMORE Age: 65 years Sex: Female : 1955 Associated Diagnoses: None Author: LINDA GAYTAN MD Basic Information CONSULTATION IN PROGRESS Pulmonary/CCM Consultation Note Date of Admission: 2020 Date of Consultation: 2020 Referring Provider: Renata Sotelo DO Reason for Consultation: Vent Management CC: Unobtainable History of Present Illness: This is a 65-year-old female with a past medical history of 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 Patient is currently intubated, sedated, and on [...] ALINA lobectomy COPD NIDDM GERD HLD HTN IA TIA CAD Past Surgical History ALINA lobectomy Cardiac catheterization Colonoscopy Tubal ligation Appendectomy Angioplasty Social History Tobacco: Former smoker Alcohol: Negative Drugs: Denies Family History Noncontributory ICU Day: 1 Vent Day: 4 (Intubated on 12/01 at OSH) Review of Systems Unable to obtain: Due to clinical condition. Health Status Allergies: Allergic Reactions (All) Severity [...] 48 mL, 666 mL/Hr, IV Piggyback, 1-Time DuoNeb 0.5 mg-2.5 mg/3 mL inhalation solution: 3 mL, Nebulized Inhalation, Q6H, PRN: Shortness of Breath Emend for Injection + Sodium Chloride 0.9% [...] IV Piggyback, 1-Time Pepcid: 20 mg, Oral, Daily Phenergan: 6.25 mg, IntraVENous, Q6H, PRN: Nausea Sodium Chloride 0.9% intravenous solution: 250 mL, 50 mL/Hr, IntraVENous, 1-Time Sodium Chloride 0.9% intravenous solution: 250 mL, 50 mL/Hr, IntraVENous, 1-Time Sodium Chloride 0.9% intravenous solution: 250 mL, 50 mL/Hr, IntraVENous, 1-Time Sodium Chloride 0.9% intravenous solution: 250 mL, 50 mL/Hr, IntraVENous, 1-Time Tylenol: 650 mg, Oral, Q4H, PRN: Other (See Comment) Vitamin B-12: 1,000 mcg, IntraMuscular, 1-Time Vitamin B-12: 1,000 mcg, IntraMuscular, 1-Time Zofran: 4 mg, IV Push, Q4H, PRN: Nausea Zosyn + Sodium Chloride 0.9% intravenous solution 100 mL: 4.5 Gram, 200 mL/Hr, IV Piggyback, 1-Time Zosyn: 3.375 Gram, IV Piggyback, Q6H bevacizumab: 316 mL/Hr, IV Piggyback, 1-Time bevacizumab: 316 mL/Hr, IV Piggyback, 1-Time cloNIDine: 0.1 mg, Oral, Q4H, PRN: Hypertension dexAMETHasone + Sodium Chloride 0.9% intravenous solution 50 mL: 20 mg, 5 mL, 189 mL/Hr, IV Piggyback, 1-Time dexAMETHasone + Sodium Chloride 0.9% intravenous solution 50 mL: 20 mg, 5 mL, 189 mL/Hr, IV Piggyback, 1-Time dexmedeTOMIDine injection 400 mcg + NaCl 0.9% for drip 100 mL: Titrate, IntraVENous diphenhydrAMINE: 25 mg, IV Push, 1-Time diphenhydrAMINE: 25 mg, IV Push, 1-Time diphenhydrAMINE: 25 mg, IV Push, 1-Time diphenhydrAMINE: 25 mg, IV Push, 1-Time doxycycline + Sodium Chloride 0.9% intravenous solution 100 mL: 100 mg, 50 mL/Hr, IV Piggyback, [id number] fentaNYL injection 1,000 mcg + Premix Diluent NaCl 0.9% for Drip 100 mL: Titrate, IntraVENous granisetron: 1 mg, IV Push, 1-Time granisetron: 1 mg, IV Push, 1-Time granisetron: 1 mg, IV Push, 1-Time granisetron: 1 mg, IV Push, 1-Time hydrALAZINE: 10 mg, IV Push, Q6H, PRN: Hypertension morphine: 2 mg, IV Push, Q2H, PRN: Pain (Severe 7-10) Prescriptions Prescribed Butler 10 mg-325 mg oral tablet: 1 Tab, Oral, Q4H, PRN: for pain, 50 Tab, 0 Refill(s) cyclobenzaprine 10 mg oral tablet: 1 Tab, Oral, TID, PRN: as needed for spasm, 30 Tab, 1 Refill(s) Documented Medications Documented ALPRAZolam: 0.25 mg, Oral, At Bedtime, PRN: Insomnia, 0 Refill(s) Advair Diskus 250 mcg-50 mcg inhalation powder: 1 Puff, Inhalation, BID, 180 Each, 0 Refill(s) albuterol: 2 puffs, Inhalation, Q6H, PRN: as needed for shortness of breath or wheezing, 0 Refill(s) aspirin: 325 mg, Oral, Daily, 0 Refill(s) atorvastatin: 40 mg, Oral, At Bedtime, 0 Refill(s) fluticasone 50 mcg/inh nasal spray: 2 [place], Nasal, Daily, PRN: Congestion, 0 Refill(s) hydroCHLOROthiazide-lisinopril 25 mg-20 mg oral tablet: 1 Tab, Oral, Daily, 30 Tab, 0 Refill(s) omeprazole: 20 mg, Oral, Daily, 0 Refill(s), Medications (13) Active Scheduled: (4) doxycycline hyclate + NaCl 0.9% 100 mL 100 mg, IV Piggyback, [id number] famotidine 20 mg tab 20 mg 1 Tab, Oral, Daily piperacillin-tazobactam 3.375 Gram, IV Piggyback, Q6H piperacillin-tazobactam + NaCl 0.9% 100 mL 4.5 Gram, IV Piggyback, 1-Time Continuous: (2) dexmedeTOMIDine 400 mcg + NaCl 0.9% TITRATE 100 mL 100 mL, IntraVENous fentaNYL 1,000 mcg + Premix Diluent NaCl 0.9% TITRATE 100 mL 100 mL, IntraVENous PRN: (7) acetaminophen 325 mg tab 650 mg 2 Tab, Oral, Q4H albuterol-ipratropium inh 3 mL 3 mL, Nebulized Inhalation, Q6H cloNIDine 0.1 mg tab 0.1 mg 1 Tab, Oral, Q4H hydrALAZINE 20 mg/1 mL inj 10 mg 0.5 mL, IV Push, Q6H morphine 2 mg/1 ml inj 2 mg 1 mL, IV Push, Q2H ondansetron 4 mg/2 mL inj 4 mg 2 mL, IV Push, Q4H promethazine 25 mg/1 mL inj 6.25 mg 0.25 mL, IntraVENous, Q6H Problem list: All Problems (Selected) Claustrophobia / SNOMED CT 74852700 / Confirmed Shortness of breath / SNOMED CT 652993716 / Confirmed GERD - Gastro-esophageal reflux disease / SNOMED CT 6722601584 / Confirmed Hiatal hernia / SNOMED CT 125908278 / Confirmed Diverticulosis / SNOMED CT 9750486840 / Confirmed Diabetes mellitus type II / SNOMED CT 62779930 / Confirmed CA - Lung cancer adenocarcinoma / SNOMED CT 8387536333 / Confirmed History of obstructive sleep apnea / IMO 83613635 / Confirmed High blood pressure / SNOMED CT 29235392 / Confirmed Hyperlipidemia / SNOMED CT 52914291 / Confirmed Coronary artery disease s/p IA / SNOMED CT 0715003700 / Confirmed 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 / SNOMED CT 20972128 / Confirmed Sinusitis / SNOMED CT 00808117 / Confirmed Sleep apnea no c-pap / SNOMED CT 691274832 / Confirmed Arthritis / SNOMED CT 9230076 / Confirmed Back pain / SNOMED CT 2895411132 / Confirmed Migraine / SNOMED CT 54053732 / Confirmed H/O: TIA / SNOMED CT 979716906 / Confirmed, Active Problems (18) Arthritis Back pain CA - Lung cancer adenocarcinoma 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 Claustrophobia Coronary artery disease s/p IA Diabetes mellitus type II Diverticulosis GERD - Gastro-esophageal reflux disease H/O: TIA Hiatal hernia High blood pressure History of obstructive sleep apnea Hyperlipidemia Migraine Shortness of breath Sinusitis Sleep apnea no c-pap Physical Examination VS/Measurements Vitals Signs (last 24 hrs) Last Charted Minimum Maximum Mon HR 79 (DEC 04:46) 79 (DEC 04:) 79 (DEC 04:) Resp Rate 20 (DEC 04) 20 (DEC 04) 20 (DEC 04) SpO2 100 (DEC 04) 100 (DEC 04) 100 (DEC 04) General: Intubated, on mechanical vent. Arouses to voice, follows commands. RASS -1/-2.. Eye: Normal conjunctiva, Sluggish, equally reactive to light.. HENT: Normocephalic. Neck: Supple. Respiratory: Respirations are non-labored, Breath sounds are equal, No wheezing. Decreased bibasilarly.. Cardiovascular: Normal rate, Regular rhythm, S1, S2, No edema. Gastrointestinal: Soft, Normal bowel sounds, Distended., Obese abdomen.. Musculoskeletal: No deformity, Unable to fully assess.. Integumentary: Warm, Dry. Neurologic: Positive gag, good cough. Arouses to voice, follows commands. RASS -1/-2.. Psychiatric: Unable to assess.. Review / Management Results review: No qualifying data available. No Radiology Results Found Impression and Plan Impression: Pulmonary Ymvwz-gd-stiqkta hypercapnic respiratory failure Intubated at OSH on 12/01 COPD, acute exacerbation Ventilator management encounter Smoking history No known chronic lung diseases No PFTs for review Cardiovascular CAD History of IA HTN ID Possible PNA? Negative procalcitonin, no leukocytosis GI GERD Neuro Altered mental status History of TIA Renal Electrolyte disturbances Hypokalemia Endocrine Glycemic control Hematology/Oncology Lung adenocarcinoma with brain and abdominal metastases s/p ALINA lobectomy, chemotherapy (last treatment 11/28) PLAN: -Vent bundle. Wean FiO2, for goal saturation >89%. -Sedation: On Precedex, Fentanyl. Titrate to RASS goal -1/-2. -Ventilator settings: 20 VR, 400 TV, 5.0 PEEP, FiO2 40%. ABG now. -Daily SBTs/SATs, as able. -Daily ABG. -DuoNebs Q6h. -Encourage IS/FVD, when extubated. -Hemodynamics: Stable. -Echocardiogram ordered. -ID: Current antibiotics: Zosyn, Doxy -- consider deescalation if patient shows no signs of active infection Blood cultures ordered. Sputum cultures ordered. Pneumonia PCR panel ordered. Trend procalcitonin, CBC w/diff -Monitor hydration status. -Evaluate daily for diuresis. -Trend SCr/BUN. -Consult Speech for Swallow evaluation, once extubated. -Glycemic control: per primary. -Nutrition: NPO. -GI prophylaxis: Pepcid QD -VTE prophylaxis: Heparin SQ Q8 documented in this encounter Plan of Treatment Upcoming Encounters Date Type Department Care Team (Late st Contact Info) Description 05/14/2025 8:00 AM EST Lab Patient Walk-In [place] [facility] - [address] [place] [address] 05/14/2025 8:30 AM EST Appointment [facility] [address] [facility] [address] [place] [address] Neptali Bergman MD [address] [place] [address] [address] [place] [address] 05/14/2025 10:00 AM EST Appointment [facility] MRI - [facility] [address] [facility] [address] [place] [address] [place] [address] [place] [address] [address] [place] [address] 05/14/2025 2:15 PM EST Office Visit [facility] - [place] [place] [address] Neptali Bergman MD [address] [place] [address] [address] [place] [address] documented as of this encounter Visit Diagnoses Not on filedocumented in this encounter Care Teams Sieve Maker Relationship Specialty Start Date End Date Jonas Navas MD [address] [facility] [address] [place] [address] PCP - General Cardiothoracic Surgery 04/15/22 07/23/22 Marcell Uriostegui MD [address] [facility] [address] [place] [address] PCP - General Adolescent Medicine 07/24/22 04/05/23 Heidi Rivers, HAND CANDY CUTTER [address] [facility] [address] [place] [address] PCP - General Nurse Practitioner 04/06/23 Neptali Bergman MD [address] [facility] [address] [place] [address] Hematology and Oncology 10/31/24 documented as of this encounter
--- OUTSIDE RECORDS SUMMARY | 2025-04-30 09:27 | XMS_ITS | Encounter Summary ---
Author Organization [employer] ([place], [place], [place], [place], [place]) Address [address] [place] [address] Care Team Providers Care Relish Maker Name Role Phone Jonas Navas MD Primary Care Provider [phone] Marcell Uriostegui MD Primary Care Provider + [phone] Heidi Rivers APRN Primary Care Provider + [phone] Lu Bergman MD Unavailable [phone] Encounter Details Date Type Department Care Team (Late st Contact Info) Description 2020 Transcribed Document [facility] Family [facility] [place] [address] ProviderJennifer MD [address] [place] [address] Social History Tobacco Use Types Packs/Day Years Used Date Smoking Tobacco: Never Assessed Comments Unknown Sex and Gender Information Value Date Recorded Sex Assigned at Not on file Legal Sex Female 1:09 PM CDT Gender Identity Not on file Sexual Orientation Not on file documented as of this encounter Miscellaneous Notes * Cerner Conversion Note - Jennifer ProviderMD - 2020 7:34 AM CDT Patient: ALEJANDRINA ELMORE Age: 65 years Sex: Female : 1955 Associated Diagnoses: None Author: LU BERGMAN MD-ONC Attachments: None Subjective Chief complaint Chief complaint Patient well known to me with H/O adenocarcinoma from lung primary. 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 Has had keytruda but stopped due to pneumonitis, now on avastin/alimta/carbo with last rtreament one week ago. Became dyspneic last week-placed on O2, but became much worse 4 days ago and presented to [facility] and intubated for resp failure. Health Status Allergies Allergies (6) Active Reaction Anoro Ellipta Chest pain Corgard Unknown dilTIAZem Unknown Levaquin Vomiting Roxicet Unknown Stiolto Respimat 10 ACT Chest pain Current medications Medications (23) Active Scheduled: (4) doxycycline hyclate + NaCl 0.9% 100 mL 100 mg, IV Piggyback, U43IEne insulin lispro 1 unit/0.01 mL inj 76 kg - 100 kg scale, SubCutaneous, AC and at Bedtime pantoprazole 40 mg inj 40 mg, IV Piggyback, BID piperacillin-tazobactam + NaCl 0.9% 100 mL 3.375 Gram, IV Piggyback, Q6HInt Continuous: (2) dexmedeTOMIDine 400 mcg + NaCl 0.9% TITRATE 100 mL 100 mL, IntraVENous fentaNYL 1,000 mcg + Premix Diluent NaCl 0.9% TITRATE 100 mL 100 mL, IntraVENous PRN: (17) acetaminophen 325 mg tab 650 mg 2 Tab, Oral, Q4H albuterol-ipratropium inh 3 mL 3 mL, Nebulized Inhalation, Q6H calcium gluconate 1 Gram 10 mL, IV Piggyback, Daily calcium gluconate + NaCl 0.9% 50 mL 2 Gram 20 mL, IV Piggyback, Daily calcium gluconate + NaCl 0.9% 50 mL 2 Gram 20 mL, IV Piggyback, Q12H cloNIDine 0.1 mg tab 0.1 mg 1 Tab, Oral, Q4H hydrALAZINE 20 mg/1 mL inj 10 mg 0.5 mL, IV Push, Q3H magnesium sulfate 2 Gram 50 mL, IV Piggyback, Daily magnesium sulfate 2 Gram 50 mL, IV Piggyback, Q2H morphine 2 mg/1 ml inj 2 mg [...] 5 mL, IV Piggyback, Q6H Objective General vented and sedated Eye Pupils are equal, round and reactive to light HENT Normocephalic cushingnoid Neck Supple Respiratory Lungs are clear to auscultation Cardiovascular Normal rate Regular rhythm Gastrointestinal Soft Non-tender tender left upper quadrant Impression and Plan Assessment and Plan Diagnosis Adenocarcinoma of lung with new lung mass and resp distress. Course Worsening Orders Shabnam yconcerning and potential failure of treatment. Will need to talk about level of agression re: life support. I have talked to spouse already who is very realistic about her prognosis. . documented in this encounter Plan of Treatment Upcoming Encounters Date Type Department Care Team (Late st Contact Info) Description 05/14/2025 8:00 AM EST Lab Patient Walk-In [facility] - [place] [address] [place] [address] 05/14/2025 8:30 AM EST Appointment [facility] CT - [address] [place] [address] Lu Bergman MD [address] [place] [address] [address] [place] [address] 05/14/2025 10:00 AM EST Appointment [facility] MRI - [place] [facility] [address] [facility] [address] [place] [address] Lu Bergman MD [address] [place] [address] [address] [place] [address] 05/14/2025 2:15 PM EST Office Visit [facility] - [place] [address] [place] [address] Lu Bergman MD [address] [facility] [address] [place] [address] documented as of this encounter Visit Diagnoses Not on filedocumented in this encounter Care Teams Relish Maker Relationship Specialty Start Date End Date Jonas Navas MD [address] [facility] [address] [place] [address] PCP - General Cardiothoracic Surgery 04/15/22 07/23/22 Marcell Uriostegui MD [address] [place] [facility] [address] [place] [address] PCP - General Adolescent Medicine 07/24/22 04/05/23 Heidi Rivers APRN 2017 [facility] [address] [place] [address] PCP - General Nurse Practitioner 04/06/23 Lu Bergman MD [address] [facility] [address] [place] [address] Hematology and Oncology 10/31/24 documented as of this encounter
--- OUTSIDE RECORDS SUMMARY | 2025-04-30 09:27 | XMS_ITS | Encounter Summary ---
Author Organization [employer] ([place], [place], [place], [place], [place]) Address [address] [place] [address] Care Team Providers Care Moth Exterminator Name Role Phone Jonas Navas MD Primary Care Provider [phone] Marcell Uriostegui MD Primary Care Provider + [phone] Heidi Rivers APRN Primary Care Provider + [phone] Neptali Bergman MD Unavailable [phone] Encounter Details Date Type Department Care Team (Late st Contact Info) Description 05/23/2020 Transcribed Document [facility] Family Medicine Replaced by [facility] [place] [address] ProviderJennifer MD [address] [place] [address] Social History Tobacco Use Types Packs/Day Years Used Date Smoking Tobacco: Never Assessed Comments Unknown Sex and Gender Information Value Date Recorded Sex Assigned at Not on file Legal Sex Female 1:09 PM CDT Gender Identity Not on file Sexual Orientation Not on file documented as of this encounter Miscellaneous Notes * Cerner Conversion Note - Jennifre ProviderMD - 05/23/2020 12:54 PM CAMERA REPAIRMAN Treatment Intervention, PT Entered On: 05/23/2020 15:33 EST Performed On: 05/23/2020 14:46 EST by ADRIAN BROWN PTA General Information, PT Visit Type, PT : Treatment Note Patient Orders : Order Date Order Ordering 05/22/2020 15:22 Physical Therapy Eval and Treat Ordered By: HEIDY GAYTAN MD-SNU 05/23/2020 12:54 PT Additional Treatment Ordered By: Tanesha Mcmahan, PHYSICAL THERAPIST Active Diagnoses : 05/23/2020 12:00 Spondylolisthesis, site unspecified Therapy Diagnosis, PT : Pt presents with decreased safety awareness and functional mobility Admission Date : 05/22/2020 15:58 Personal Devices : Personal Devices No Devices Recorded Assistive Devices : Assistive Devices No Devices Recorded Precautions in Place : Fall prevention measures, Log roll precautions, Spinal Precautions ADRIAN BROWN [facility] 05/23/2020 15:28 EST General Status Patient Received Status : Other: sitting on couch Treatment Start Time : 05/23/2020 14:36 EST Patient Left Status : RN/PCT informed, Family/Visitors at bedside, All needs met and within reach, Other: sitting on couch RN/PCT Informed Comment : oneil Gary Treatment End Time : 05/23/2020 14:46 EST Treatment Time : 10 Minute(s) ADRIAN BROWN [facility] 05/23/2020 15:28 EST Cognitive Treatment, PT Orientation : Oriented x 4 ADRIAN BROWN [facility] 05/23/2020 15:28 EST Indication Assesessment, PT Physical Therapy Indicated : No ADRIAN BROWN [facility] 05/23/2020 15:28 EST Plan of Care, PT PT Tx Plan/Goals Established w Patient : Yes KEVIN ADRIAN [facility] 05/23/2020 15:28 EST Short Term Goals Mobility/Bed Mobility STG PT Grid Goal #1 Goal #2 Activity : Supine to sit Sit to stand Assist : Assist, minimal Supervision or set-up Equipment : Walker, four wheel Date to Meet : 05/30/2020 EST 05/30/2020 EST Goal Status : Initial goal Initial goal Comment : BLT precautions with bed flat ADRIAN BROWN [facility] 05/23/2020 15:28 EST ADRIAN BROWN [facility] 05/23/2020 15:28 EST Ambulation STG Grid Goal #1 Device : Walker, front wheel Distance : 200 ft Assist : Supervision or set-up Date to Meet : 05/30/2020 EST Goal Status : Intial Goal Comment : O2 sat >90% on room air ADRIAN BROWN [facility] 05/23/2020 15:28 EST Stairs STG Grid Goal #1 Device : Walker, front wheel Number of Steps : 1 Handrail(s) : No handrails Assist : Assist, minimal Date to Meet : 05/30/2020 EST Goal Status : Initial goal BROWNADRIAN CASPERLALA - 05/23/2020 15:28 EST Housekeeping/Laundry Goals Mobility/Bed Mobility LTG PT Grid Goal #1 Goal #2 Activity : Supine to sit Sit to stand Assist : Supervision or set-up Independent, modified Date to Meet : 06/06/2020 EST 06/06/2020 EST Goal Status : Intial Goal Intial Goal Comment : BLT precautions with bed flat ADRIAN BROWN [facility] 05/23/2020 15:28 EST KEVIN ADRIAN, [facility] 05/23/2020 15:28 EST Ambulation LTG Grid Goal #1 Device : Walker, front wheel Distance : 300 ft Assist : Independent, modified Date to Meet : 06/06/2020 EST Goal Status : Intial Goal Comment : O2 sat >90% on room air ADRIAN BROWN [facility] 05/23/2020 15:28 EST Stairs LTG Grid Goal #1 Device : Walker, front wheel Number of Steps : 1 Handrail(s) : No handrails Assist : Supervision or set-up Date to Meet : 06/06/2020 EST Goal Status : Intial Goal BROWNBECCACLARISSE [facility] 05/23/2020 15:28 EST Treatment Note Subjective Comment : pt agreeable to PT, nsg cleared pt for PTx Additional Objective Information : pt sitting on couch throughout session, pt educated on BLT precautions and proper form for HEP, pt also educated on pursed lip breathing due to O2 sat dropping without pt noticing, pt doffed non-skid socks and donned home socks and shoes with supervision without breaking precautions, pt and reported having no questions at this time Assessment : pt able to perform functional activities without breaking precautions at this time Plan for Treatment : pt discharging home today ADRIAN BROWN PTA 05/23/2020 15:28 EST Pain Assessment Pain Score During-Intervention : 6 Location : Incisional Pain Improved by : Medication, Relaxation, Repositioning Pain Comment : nsg gave pt pain meds right before session ADRIAN BROWN PTA 05/23/2020 15:28 EST Image 1 - Images currently included in the form version of this document have not been included in the text rendition version of the form. Anticipated Discharge Needs, OT/PT Anticipated Discharge to : Home, with family care Recommend Continued Therapy at Discharge : Yes ADRIAN BROWN, COORDINATOR OF PLACEMENT - 05/23/2020 15:[address] [facility] PT Charges COORDINATOR OF PLACEMENT PT Ther Activities Ea 15 Min-COORDINATOR OF PLACEMENT : 1 ADRIAN BROWN, COORDINATOR OF PLACEMENT - 05/23/2020 15:28 EST Electronically signed by [facility] Conversion Milk And Cream Grader Cerner at 09/10/2022 12:50 AM CDT documented in this encounter Plan of Treatment Upcoming Encounters Date Type Department Care Team (Late st Contact Info) Description 05/14/2025 8:00 AM EST Lab Patient Walk-In [facility] - [place] [address] [place] [address] 05/14/2025 8:30 AM EST Appointment [facility] CT - [address] [facility] [address] [place] [address] Neptali Bergman MD [address] [place] [address] [address] [place] [address] 05/14/2025 10:00 AM EST Appointment [facility] MRI - [address] [facility] [address] [place] [address] Neptali Bergman MD [address] [place] [address] [address] [place] [address] 05/14/2025 2:15 PM EST Office Visit [facility] - [place] [address] [place] [address] Neptali Bergman MD [address] [place] [address] [address] [place] [address] documented as of this encounter Visit Diagnoses Not on filedocumented in this encounter Care Teams Moth Exterminator Relationship Specialty Start Date End Date Jonas Navas MD [address] [facility] [address] [place] [id number] PCP - General Cardiothoracic Surgery 04/15/22 07/23/22 Marcell Uriostegui MD [address] [place] [address] [place] [address] PCP - General Adolescent Medicine 07/24/22 04/05/23 eHidi Rivers APRN 2017 [facility] [address] [place] [address] PCP - General Nurse Practitioner 04/06/23 Neptali Bergman MD [address] [facility] [address] [place] [address] Hematology and Oncology 10/31/24 documented as of this encounter
--- OUTSIDE RECORDS SUMMARY | 2025-04-30 09:28 | XMS_ITS | Encounter Summary ---
Author Organization [employer] ([place], [place], [place], [place], [place]) Address [address] [place] [address] Care Team Providers Care Cat Breeder Name Role Phone Jonas Navas MD Primary Care Provider [phone] Marcell Uriostegui MD Primary Care Provider + [phone] Heidi Rivers APRN Primary Care Provider + [phone] Neptali Bergman MD Unavailable [phone] Encounter Details Date Type Department Care Team (Late st Contact Info) Description 07/26/2019 Transcribed Document [facility] [place] [facility] [address] ProviderJennifer MD [address] [place] [address] Social History Tobacco Use Types Packs/Day Years Used Date Smoking Tobacco: Never Assessed Comments Unknown Sex and Gender Information Value Date Recorded Sex Assigned at Not on file Legal Sex Female 1:09 PM CDT Gender Identity Not on file Sexual Orientation Not on file documented as of this encounter Miscellaneous Notes * Cerner Conversion Note - Jennifer ProviderMD - 07/26/2019 5:00 AM OPTICAL FABRICATOR Chart Check - Review Order Profile Entered On: 07/26/2019 4:53 EST Performed On: 07/26/2019 5:00 EST by Vero Reveles RN Chart Check Powerplans Initiated/Discontinued as Appropriate : Yes All Active Orders Reviewed : Yes Vero Reveles RN - 07/26/2019 4:53 EST Electronically signed by [facility] Conversion Software Design Manager Cerner at 09/10/2022 12:39 AM CDT documented in this encounter Plan of Treatment Upcoming Encounters Date Type Department Care Team (Late st Contact Info) Description 05/14/2025 8:00 AM EST Lab Patient Walk-In [facility] - [address] [place] [address] 05/14/2025 8:30 AM EST Appointment [facility] [place] [facility] CT - [address] [place] [address] Neptali Bergman MD [address] [facility] [address] [place] [address] 05/14/2025 10:00 AM EST Appointment [facility] MRI - [address] [place] [address] Neptali Bergman MD [address] [place] [address] 05/14/2025 2:15 PM EST Office Visit [facility] - [address] [place] [address] Neptali Bergman MD [facility] [address] [place] [address] documented as of this encounter Visit Diagnoses Not on filedocumented in this encounter Care Teams Cat Breeder Relationship Specialty Start Date End Date Jonas Navas MD [address] [facility] [address] [place] [address] PCP - General Cardiothoracic Surgery 04/15/22 07/23/22 Marcell Uriostegui MD [address] [place] [address] [place] [address] PCP - General Adolescent Medicine 07/24/22 04/05/23 Heidi Rivers APRN 2017 [facility] [address] [place] [address] PCP - General Nurse Practitioner 04/06/23 Neptali Bergman MD [address] [facility] [address] [place] [address] Hematology and Oncology 10/31/24 documented as of this encounter
--- OUTSIDE RECORDS SUMMARY | 2025-04-30 09:28 | XMS_ITS | Encounter Summary ---
Author Organization [employer] ([place], [place], [place], [place], [place]) Address [address] [place] [address] Care Team Providers Care Global Consumer Sector Vice President Name Role Phone Jonas Navas MD Primary Care Provider [phone] Marcell Uriostegui MD Primary Care Provider + [phone] Heidi Rivers APRN Primary Care Provider + [phone] Neptali Bergman MD Unavailable [phone] Encounter Details Date Type Department Care Team (Late st Contact Info) Description 07/25/2019 Transcribed Document [facility] [place] [facility] [place] [address] ProviderJennifer MD [address] [place] [address] Social History Tobacco Use Types Packs/Day Years Used Date Smoking Tobacco: Never Assessed Comments Unknown Sex and Gender Information Value Date Recorded Sex Assigned at Not on file Legal Sex Female 1:09 PM CDT Gender Identity Not on file Sexual Orientation Not on file documented as of this encounter Miscellaneous Notes * Cerner Conversion Note - Jennifer ProviderMD - 07/25/2019 10:23 AM COMMUNITY PLANNING TECHNICIAN Pain Assessment Entered On: 07/25/2019 13:44 EST Performed On: 07/25/2019 12:05 EST by Omid Sanz, RN Intervention Information: HYDROmorphone Performed by Omid Sanz, RN on 07/25/2019 11:35:00 EST HYDROmorphone,0.5mg IV Push,Right Hand,Pain (Severe 7-10) Pain Assessment Pain Assessment : Follow-up assessment Pain Scale Goal : 5 Pain Location Comment : pt asleep Omid Sanz RN - 07/25/2019 13:44 EST documented in this encounter Plan of Treatment Upcoming Encounters Date Type Department Care Team (Late st Contact Info) Description 05/14/2025 8:00 AM EST Lab Patient Walk-In [place] [facility] - [place] [address] [place] [address] 05/14/2025 8:30 AM EST Appointment [facility] CT - [address] [place] [address] Neptali Bergman MD [address] [place] [address] [address] [place] [address] 05/14/2025 10:00 AM EST Appointment [facility] MRI - [address] [place] [address] Neptali Bergman MD [address] [place] [address] [address] [place] [address] 05/14/2025 2:15 PM EST Office Visit [place] [facility] - [place] [address] [place] [address] Neptali Bergman MD [address] [place] [address] [address] [place] [address] documented as of this encounter Visit Diagnoses Not on filedocumented in this encounter Care Teams Global Consumer Sector Vice President Relationship Specialty Start Date End Date Jonas Navas MD [address] [facility] [address] [place] [address] PCP - General Cardiothoracic Surgery 04/15/22 07/23/22 Marcell Uriostegui MD [address] [place] [address] PCP - General Adolescent Medicine 07/24/22 04/05/23 Heidi Rivers, PROCESS EXCELLENCE MANAGER [address] [facility] [address] [place] [address] PCP - General Nurse Practitioner 04/06/23 Neptali Bergman MD [address] [facility] [address] [place] [address] Hematology and Oncology 10/31/24 documented as of this encounter
--- OUTSIDE RECORDS SUMMARY | 2025-04-30 09:28 | XMS_ITS | Encounter Summary ---
Author Organization [employer] ([place], [place], [place], [place], [place]) Address [address] [place] [address] Care Team Providers Care Cruller Maker Machine Name Role Phone Jonas Navas MD Primary Care Provider [phone] Marcell Uriostegui MD Primary Care Provider + [phone] Heidi Rivers APRN Primary Care Provider + [phone] Lu Bergman MD Unavailable [phone] Encounter Details Date Type Department Care Team (Late st Contact Info) Description 07/26/2019 Transcribed Document [facility] Family Medicine [address] [place] [address] ProviderJennifer MD [address] [place] [address] Social History Tobacco Use Types Packs/Day Years Used Date Smoking Tobacco: Never Assessed Comments Unknown Sex and Gender Information Value Date Recorded Sex Assigned at Not on file Legal Sex Female 1:09 PM CDT Gender Identity Not on file Sexual Orientation Not on file documented as of this encounter Miscellaneous Notes * Cerner Conversion Note - Historical ProviderMD - 07/26/2019 10:43 AM CORK TILE FLOOR LAYER Spiritual Care Assessment Entered On: 07/26/2019 11:43 EST Performed On: 07/26/2019 10:43 EST by LU GARNER General Information Initial Visit : No Referred by : Insurance Examining Clerk follow-up Referral Reason Comment : Post-op visit Ministry Provided to : Patient, Family/Significant other LU GARNER - 07/26/2019 11:42 EST Spiritual Assessment Spiritual Assessment Comment/Summary Points : Post-op visit with patient and . Tolerating recovery bravely; waiting on results. Provided spiritual support and prayer. Spirital Assessment Comment/Summary Report : SPIRITUAL ASSESSMENT COMMENT/SUMMARY Spiritual Assessment Comment/Summary 07/25/19 06:53:00 Pre-surgery visit with patient and family. Signed By: LU GARNER SCOTT P - 07/26/2019 11:42 EST Interventions Emotional Support : Empathic/Engaged listening, Family/Significant other supported, Hope strengths identified Spiritual and Baptist : Prayer shared, Spiritual/Baptist support provided LU GARNER 07/26/2019 11:42 EST Electronically signed by Hossein [facility] Conversion Social Work Manager Cerner at 09/10/2022 12:38 AM CDT documented in this encounter Plan of Treatment Upcoming Encounters Date Type Department Care Team (Late st Contact Info) Description 05/14/2025 8:00 AM EST Lab Patient Walk-In [facility] - [place] [address] [place] [address] 05/14/2025 8:30 AM EST Appointment [facility] [address] [place] [address] Lu Bergman MD [address] [place] [address] [address] [place] [address] 05/14/2025 10:00 AM EST Appointment [facility] MRI - [address] [facility] [address] [place] [address] Lu Bergman MD [address] [place] [address] [address] [place] [address] 05/14/2025 2:15 PM EST Office Visit [facility] - [place] [address] [place] [address] Lu Bergman MD [address] [place] [address] [address] [place] [address] documented as of this encounter Visit Diagnoses Not on filedocumented in this encounter Care Teams Cruller Maker Machine Relationship Specialty Start Date End Date Jonas Navas MD [address] [facility] [address] [place] [address] PCP - General Cardiothoracic Surgery 04/15/22 07/23/22 Marcell Uriostegui MD [address] [facility] [address] [place] [address] PCP - General Adolescent Medicine 07/24/22 04/05/23 Heidi Rivers, HYDROPULPER [address] [place] [address] PCP - General Nurse Practitioner 04/06/23 Lu Bergman MD [address] [facility] [address] [place] [address] Hematology and Oncology 10/31/24 documented as of this encounter
--- OUTSIDE RECORDS SUMMARY | 2025-04-30 09:28 | XMS_ITS | Encounter Summary ---
Author Organization [employer] ([place], [place], [place], [place], [place]) Address [address] [place] [address] Care Team Providers Care Sccm Administrator Name Role Phone Jonas Navas MD Primary Care Provider [phone] Marcell Uriostegui MD Primary Care Provider + [phone] Heidi Rivers APRN Primary Care Provider + [phone] Neptali Bergman MD Unavailable [phone] Encounter Details Date Type Department Care Team (Late st Contact Info) Description 07/26/2019 Transcribed Document [facility] Family Medicine [address] [place] [address] ProviderJennifer MD [address] [place] [address] Social History Tobacco Use Types Packs/Day Years Used Date Smoking Tobacco: Never Assessed Comments Unknown Sex and Gender Information Value Date Recorded Sex Assigned at Not on file Legal Sex Female 1:09 PM CDT Gender Identity Not on file Sexual Orientation Not on file documented as of this encounter Miscellaneous Notes * Cerner Conversion Note - Jennifer ProviderMD - 07/26/2019 9:53 AM YOUTH CARE WORKER On Going Discharge Planning Entered On: 07/26/2019 9:54 EST Performed On: 07/26/2019 9:53 EST by ALEXUS LEON, Edgardo-Industrial Design EngineerElectrical Lineworker Progress Note Discharge Arrangements : Patient Post-Acute Information Patient Name: ALEJANDRINA YEH Gender: Female : [birth year] Age: 63 Years No Post-Acute Placement(s) Listed No Post-Acute Service(s) Listed No Curaspan Referral(s) Listed Discharge Options Discussed with Patient : Discharge transportation, DME, Home Health, Short term rehabilitation Barriers to Discharge Identified : Clinical Condition of Patient Barriers to Discharge Unresolved : Clinical Condition of Patient Is the Patient Meeting Medical Necessity : Yes ALEXUS LEON Rn-Industrial Design Engineer - 07/26/2019 9:53 EST Narrative Progress Note Narrative Progress Note : CTS encouraging pt to be up in chair OOB; anticipate possible transfer out of [facility] later today; anticipate home with spouse when stable; monitor for home oxygen need. ALEXUS LEON Rn-Industrial Design Engineer - 07/26/2019 9:53 EST documented in this encounter Plan of Treatment Upcoming Encounters Date Type Department Care Team (Late st Contact Info) Description 05/14/2025 8:00 AM EST Lab Patient Walk-In [facility] - [place] [address] [place] [address] 05/14/2025 8:30 AM EST Appointment [facility] CT - [address] [facility] [address] [place] [address] Neptali Bergman MD [address] [facility] [address] [place] [address] 05/14/2025 10:00 AM EST Appointment [facility] - [address] [facility] [address] [place] [address] Neptali Bergman MD [address] [place] [address] 05/14/2025 2:15 PM EST Office Visit [facility] - [address] [place] [address] Neptali Bergman MD [address] [facility] [address] [place] [address] documented as of this encounter Visit Diagnoses Not on filedocumented in this encounter Care Teams Sccm Administrator Relationship Specialty Start Date End Date Jonas Navas MD [address] [facility] [address] [place] [address] PCP - General Cardiothoracic Surgery 04/15/22 07/23/22 Marcell Uriostegui MD [address] [facility] [address] [place] [address] PCP - General Adolescent Medicine 07/24/22 04/05/23 Heidi Rivers APRN [address] [facility] [address] [place] [address] PCP - General Nurse Practitioner 04/06/23 Neptali Bergman MD [address] [facility] [address] [place] [address] Hematology and Oncology 10/31/24 documented as of this encounter
--- OUTSIDE RECORDS SUMMARY | 2025-04-30 09:28 | XMS_ITS | Encounter Summary ---
Author Organization [employer] ([place], [place], [place], [place], [place]) Address [address] [place] [address] Care Team Providers Care Tool Machinist Name Role Phone Jonas Navas MD Primary Care Provider [phone] Marcell Uriostegui MD Primary Care Provider + [phone] Heidi Rivers APRN Primary Care Provider + [phone] Neptali Bergman MD Unavailable [phone] Encounter Details Date Type Department Care Team (Late st Contact Info) Description 12/05/2020 Transcribed Document [facility] [place] [place] [address] ProviderJennifer MD [address] [place] [address] Social History Tobacco Use Types Packs/Day Years Used Date Smoking Tobacco: Never Assessed Comments Unknown Sex and Gender Information Value Date Recorded Sex Assigned at Not on file Legal Sex Female 1:09 PM CDT Gender Identity Not on file Sexual Orientation Not on file documented as of this encounter Miscellaneous Notes * Cerner Conversion Note - Historical ProviderMD - 12/05/2020 9:28 PM CDT Patient: ALEJANDRINA YEH Age: 65 Years Sex: Female : 1955 Subjective 12/05/20 Sedated on ventilator Vital Signs T: 37.1 ??C TMIN: 36.5 ??C TMAX: 37.2 ??C HR: 116(Monitored) RR: 19 BP: 139/60 SpO2: 97% HT: 157.48 cm WT: 83.2 kg BMI: 33.55 Oxygen Settings (Last) Oxygen Therapy Mode: Nasal cannula (12/06/20 00:02:00) Oxygen Flow Rate: 3 Liter/Min (12/06/20 00:02:00) Intake & Output Totals Last 24 Hours (7a-7a) Input Total: 563.2997 mL Output Total: 1200 mL Balance: -636.7003 mL Physical Exam General: no acute distress Neurologic: Sedated on ventilator Eye: Pupils reactive and equal bilaterally. Neck: No carotid bruits, no JVD, no lymphadenopathy Lungs: Clear to auscultation bilaterally. No wheezes. Heart: Regular rate and rhythm. No murmurs. Abdomen: Soft, non-tender, non-distended, normal bowel sounds, no masses Extremities: No edema. Full range of motion where tested. Skin: No rashes or lesions Assessment/Plan 1. Acute respiratory failure. history of adenocarcinoma of lung, history of chronic obstructive pulmonary disease. Continues to require mechanical ventilation Pulmonary managing ventilator 2. History of lung cancer with metastasis. Followed by oncology.. 3. Hypertension. Stable. 4. Pneumonia. Broad IV antibiotics. Cultures negative to date. 5. Diabetes mellitus. -Glucose is well controlled today. Monitor and adjust meds as needed for control. 6. Anemia. Stable-follow. VTE Prophylaxis - Medical Heparin 5,000 Units, SubCutaneous, Inj, Q8H, Routine, Start 12/05/20 7:05:00 EDT, 12/05/20 7:05:00 EDT (GABY SARMIENTO) Sequential Compression Device Start: 12/04/20 0:45:00 EDT, Bilateral, Length: Knee High, While patient is in bed, Continuous Order (DAI HAMMOND) Medications Alimta + Sodium Chloride 0.9% intravenous solution 100 mL Alimta + Sodium Chloride 0.9% intravenous solution 100 mL bevacizumab bevacizumab calcium gluconate calcium gluconate + Sodium Chloride 0.9% intravenous solution 50 mL calcium gluconate + Sodium Chloride 0.9% intravenous solution 50 mL CARBOplatin + Sodium Chloride 0.9% intravenous solution 250 mL CARBOplatin + Sodium Chloride 0.9% intravenous solution 250 mL cloNIDine, 0.1 mg= 1 Tab, Oral, Q4H, PRN dexmedeTOMIDine injection 400 mcg + NaCl 0.9% for drip 100 mL diphenhydrAMINE, 25 mg= 0.5 mL, IV Push, 1-Time diphenhydrAMINE, 25 mg= 0.5 mL, IV Push, 1-Time diphenhydrAMINE, 25 mg= 0.5 mL, IV Push, 1-Time diphenhydrAMINE, 25 mg= 0.5 mL, IV Push, 1-Time doxycycline + Sodium Chloride 0.9% intravenous solution 100 mL DuoNeb 0.5 mg-2.5 mg/3 mL inhalation solution, 3 mL, Nebulized Inhalation , RT_Q6H DuoNeb 0.5 mg-2.5 mg/3 mL inhalation solution, 3 mL, Nebulized Inhalation , Q6H, PRN Emend for Injection + Sodium Chloride 0.9% intravenous solution 150 mL Emend for Injection + Sodium Chloride 0.9% intravenous solution 150 mL fentaNYL injection 1,000 mcg + Premix Diluent NaCl 0.9% for Drip 100 mL granisetron, 1 mg= 1 mL, IV Push, 1-Time granisetron, 1 mg= 1 mL, IV Push, 1-Time granisetron, 1 mg= 1 mL, IV Push, 1-Time granisetron, 1 mg= 1 mL, IV Push, 1-Time heparin, 5000 Units= 1 mL, SubCutaneous, Q8H hydrALAZINE, 10 mg= 0.5 mL, IV Push, Q3H, PRN insulin lispro 76 kg - 100 kg, 76 kg - 100 kg scale, SubCutaneous, Q6H Keytruda + Sodium Chloride 0.9% intravenous solution 100 mL Keytruda + Sodium Chloride 0.9% intravenous solution 100 mL magnesium sulfate, 2 Gram= 50 mL, IV Piggyback, Daily, PRN magnesium sulfate, 2 Gram= 50 mL, IV Piggyback, Q2H, PRN morphine, 2 mg= 1 mL, IV Push, Q2H, PRN Pepcid + Sodium Chloride 0.9% intravenous solution 50 mL Pepcid + Sodium Chloride 0.9% intravenous solution 50 mL Pepcid + Sodium Chloride 0.9% intravenous solution 50 mL Pepcid + Sodium Chloride 0.9% intravenous solution 50 mL Phenergan, 6.25 mg= 0.25 mL, IntraVENous, Q6H, PRN potassium chloride 10 mEq/50 mL intravenous solution, 10 mEq= 50 mL, IV Piggyback, Q1H, PRN potassium chloride 20 mEq oral tablet, extended release, 20 mEq= 1 Tab, Oral, Q2H, PRN potassium chloride 20 mEq oral tablet, extended release, 60 mEq= 3 Tab, Oral, Q2H, PRN Protonix, 40 mg, IV Piggyback, BID Pulmicort Respules, 0.5 mg= 2 mL, Nebulized Inhalation , RT_BID Sodium Chloride 0.9% intravenous solution, 250 mL, IntraVENous, 1-Time Sodium Chloride 0.9% intravenous solution, 250 mL, IntraVENous, 1-Time Sodium Chloride 0.9% intravenous solution, 250 mL, IntraVENous, 1-Time Sodium Chloride 0.9% intravenous solution, 250 mL, IntraVENous, 1-Time sodium phosphate sodium phosphate SOLU-Medrol, 40 mg= 1 mL, IV Push, Q6H Tylenol, 650 mg= 2 Tab, Oral, Q4H, PRN Vitamin B-12, 1000 mcg= 1 mL, IntraMuscular, 1-Time Vitamin B-12, 1000 mcg= 1 mL, IntraMuscular, 1-Time Zofran, 4 mg= 2 mL, IV Push, Q4H, PRN Zosyn + Sodium Chloride 0.9% intravenous solution 100 mL Lab Results Test Name Test Result Date/Time pH Art 7.39 12/05/2020 13:35 EDT pH Art 7.46 (High) 12/05/2020 06:11 EDT pCO2 Art 45.0 mmHg 12/05/2020 13:35 EDT pCO2 Art 39.2 mmHg 12/05/2020 06:11 EDT pO2 Art 86.7 mmHg 12/05/2020 13:35 EDT pO2 Art 129.0 mmHg (High) 12/05/2020 06:11 EDT HCO3 Art 27.0 mmol/L (High) 12/05/2020 13:35 EDT HCO3 Art 28.1 mmol/L (High) 12/05/2020 06:11 EDT BE Art 1.6 mmol/L 12/05/2020 13:35 EDT BE Art 4.0 mmol/L (High) 12/05/2020 06:11 EDT sO2 Art 95.6 % 12/05/2020 13:35 EDT sO2 Art 98.9 % 12/05/2020 06:11 EDT tHb Art 9.2 Gram/dL (Low) 12/05/2020 13:35 EDT tHb Art 8.8 Gram/dL (Low) 12/05/2020 06:11 EDT FHHb 4.3 % 12/05/2020 13:35 EDT FHHb <2.4 % 12/05/2020 06:11 EDT ctO2 12.3 mmol/L 12/05/2020 13:35 EDT ctO2 12.3 mmol/L 12/05/2020 06:11 EDT FIO2 Art 40 12/05/2020 13:35 EDT FIO2 Art 40 12/05/2020 06:11 EDT Delivery Device Type Art Ventilator 12/05/2020 13:35 EDT Delivery Device Type Art Ventilator 12/05/2020 06:11 EDT Temperature, F Art 98.6 Deg F 12/05/2020 13:35 EDT Temperature, F Art 98.6 Deg F 12/05/2020 06:11 EDT Art Blood Gas (ABG) Site Right Radial 12/05/2020 13:35 EDT Art Blood Gas (ABG) Site Right Radial 12/05/2020 06:11 EDT Acceptable Giancarlo's Test Art Acceptable 12/05/2020 13:35 EDT Acceptable Giancarlo's Test Art Acceptable 12/05/2020 06:11 EDT Ventilator Mode Art Spontaneous 12/05/2020 13:35 EDT Ventilator Mode Art Assist Control Ventilation 12/05/2020 06:11 EDT Tidal Volume Set Art 400.0 mL 12/05/2020 06:11 EDT Set Rate Art 16.0 12/05/2020 06:11 EDT Respiratory Rate Art 16.0 12/05/2020 13:35 EDT Respiratory Rate Art 16.0 12/05/2020 06:11 EDT CPAP/PEEP Art 5.0 cmH2O 12/05/2020 13:35 EDT CPAP/PEEP Art 5.0 cmH2O 12/05/2020 06:11 EDT Pressure Support Art 8.0 cmH2O 12/05/2020 13:35 EDT Comment Art supine 12/05/2020 13:35 EDT Comment Art supine 12/05/2020 06:11 EDT ABG Num of Draw Attempts 1 12/05/2020 13:35 EDT ABG Num of Draw Attempts 1 12/05/2020 06:11 EDT PaO2/FiO2 calculated 217 12/05/2020 13:35 EDT PaO2/FiO2 calculated 322 12/05/2020 06:11 EDT Sodium Level 139 mmol/L 12/05/2020 03:35 EDT Sodium Level 136 mmol/L 12/05/2020 03:35 EDT Potassium Level 4.0 mmol/L 12/05/2020 03:35 EDT Potassium Level 3.9 mmol/L 12/05/2020 03:35 EDT Chloride Level 104 mmol/L 12/05/2020 03:35 EDT Chloride Level 103 mmol/L 12/05/2020 03:35 EDT Carbon Dioxide Level 27 mmol/L 12/05/2020 03:35 EDT Carbon Dioxide Level 28 mmol/L 12/05/2020 03:35 EDT Anion Gap 12 12/05/2020 03:35 EDT Anion Gap 9 12/05/2020 03:35 EDT Glucose Level 165 mg/dL (High) 12/05/2020 03:35 EDT Glucose Level 166 mg/dL (High) 12/05/2020 03:35 EDT Blood Urea Nitrogen 17 mg/dL 12/05/2020 03:35 EDT Blood Urea Nitrogen 18 mg/dL 12/05/2020 03:35 EDT Creatinine Level 0.80 mg/dL 12/05/2020 03:35 EDT Creatinine Level 0.80 mg/dL 12/05/2020 03:35 EDT eGFR >60 mL/min/1.73m2 12/05/2020 03:35 EDT eGFR >60 mL/min/1.73m2 12/05/2020 03:35 EDT eGFR NonAfrican >60 mL/min/1.73m2 12/05/2020 03:35 EDT eGFR NonAfrican >60 mL/min/1.73m2 12/05/2020 03:35 EDT Bun/Creatinine 21.2 (High) 12/05/2020 03:35 EDT Bun/Creatinine 22.5 (High) 12/05/2020 03:35 EDT Calcium Level 8.6 mg/dL 12/05/2020 03:35 EDT Calcium Level 8.8 mg/dL 12/05/2020 03:35 EDT Protein Total 6.7 Gram/dL 12/05/2020 03:35 EDT Albumin Level 2.5 Gram/dL (Low) 12/05/2020 03:35 EDT Globulin 4.2 Gram/dL 12/05/2020 03:35 EDT A/G Ratio 0.6 (Low) 12/05/2020 03:35 EDT Bilirubin Total 0.8 mg/dL 12/05/2020 03:35 EDT Alk Phos 75 Units/Liter 12/05/2020 03:35 EDT AST 19 Units/Liter 12/05/2020 03:35 EDT ALT 38 Units/Liter 12/05/2020 03:35 EDT Magnesium Level 2.3 mg/dL 12/05/2020 03:35 EDT Ammonia Level 32.0 uMol/L 12/05/2020 03:35 EDT Phosphorus 4.2 mg/dL 12/05/2020 03:35 EDT Device Comment 1 Notified Nurse RBV 12/05/2020 23:36 EDT Device Comment 1 No action Require 12/05/2020 18:09 EDT Device Comment 1 Received Meds 12/05/2020 12:34 EDT Device Comment 1 Notified Nurse RBV 12/05/2020 05:39 EDT Glucose POC2 134 mg/dL (High) 12/05/2020 23:36 EDT Glucose POC2 137 mg/dL (High) 12/05/2020 18:09 EDT Glucose POC2 161 mg/dL (High) 12/05/2020 12:34 EDT Glucose POC2 173 mg/dL (High) 12/05/2020 05:39 EDT Lactate Dehydrogenase 283 Units/Liter (High) 12/05/2020 03:35 EDT Lactic Acid Level 1.7 mmol/L 12/05/2020 03:35 EDT Calcium Ionized 1.17 mmol/L 12/05/2020 03:35 EDT CK 71 Units/Liter 12/05/2020 03:35 EDT ProBNP 668 pg/mL (High) 12/05/2020 03:35 EDT WBC 5.9 K/uL 12/05/2020 03:35 EDT RBC 3.36 Million/uL (Low) 12/05/2020 03:35 EDT Hgb 8.6 g/dL (Low) 12/05/2020 03:35 EDT Hct 27.2 % (Low) 12/05/2020 03:35 EDT MCV 81.0 fL 12/05/2020 03:35 EDT MCH 25.6 pg 12/05/2020 03:35 EDT MCHC 31.6 Gram/dL (Low) 12/05/2020 03:35 EDT Platelet Count 166 K/uL 12/05/2020 03:35 EDT MPV 11.0 fL 12/05/2020 03:35 EDT RDW 22.5 % (High) 12/05/2020 03:35 EDT Neutrophil Percent Man 91 % (High) 12/05/2020 03:35 EDT Band Percent Man 1 % (Low) 12/05/2020 03:35 EDT Lymph Percent Man 8 % (Low) 12/05/2020 03:35 EDT Hall Percent Man 0 % (Low) 12/05/2020 03:35 EDT Eos Percent Man 0 % 12/05/2020 03:35 EDT Baso Percent Man 0 % 12/05/2020 03:35 EDT RBC Morphology Abnormal 12/05/2020 03:35 EDT Anisocytosis 2+ (Abnormal) 12/05/2020 03:35 EDT Hypochromia 1+ (Abnormal) 12/05/2020 03:[address] Estimate Adequate 12/05/2020 03:35 EDT PT 10.7 Second(s) 12/05/2020 03:35 EDT INR 1.0 12/05/2020 03:35 EDT Fibrinogen Level 692 mg/dL (Critical) 12/05/2020 03:35 EDT Procalcitonin <0.25 ng/mL 12/05/2020 03:35 EDT Electronically signed by [facility], [facility] Conversion Street Cleaner Cerner at 09/10/2022 12:44 AM CDT documented in this encounter Plan of Treatment Upcoming Encounters Date Type Department Care Team (Late st Contact Info) Description 05/14/2025 8:00 AM EST Lab Patient Walk-In [facility] - [place] [address] [place] [address] 05/14/2025 8:30 AM EST Appointment [facility] CT [address] [place] [address] [place] [address] [place] [address] [address] [place] [address] 05/14/2025 10:00 AM EST Appointment [facility] - [address] [place] [address] Neptali Bergman MD [address] [place] [address] [address] [place] [address] 05/14/2025 2:15 PM EST Office Visit [facility] - [address] [place] [address] Neptali Bergman MD [address] [place] [address] [address] [place] [address] documented as of this encounter Visit Diagnoses Not on filedocumented in this encounter Care Teams Tool Machinist Relationship Specialty Start Date End Date Jonas Navas MD [address] [facility] [address] [place], [place] [id number] PCP - General Cardiothoracic Surgery 04/15/22 07/23/22 Marcell Uriostegui MD [address] [place] [address] PCP - General Adolescent Medicine 07/24/22 04/05/23 Heidi Rivers, ROMERO [address] [facility] [address] [place] [address] PCP - General Nurse Practitioner 04/06/23 Neptali Bergman MD [address] [place] [address] [address] [place] [address] Hematology and Oncology 10/31/24 documented as of this encounter
--- OUTSIDE RECORDS SUMMARY | 2025-04-30 09:28 | XMS_ITS | Encounter Summary ---
Author Organization [employer] ([place], [place], [place], [place], [place]) Address [address] [place] [address] Care Team Providers Care Fitness Manager Name Role Phone Jonas Navas MD Primary Care Provider [phone] Marcell Uriostegui MD Primary Care Provider + [phone] Heidi Rivers APRN Primary Care Provider + [phone] Neptali Bergman MD Unavailable [phone] Encounter Details Date Type Department Care Team (Late st Contact Info) Description 12/05/2020 Transcribed Document [facility] Family Medicine [facility] [place] [address] ProviderJennifer MD [address] [place] [address] Social History Tobacco Use Types Packs/Day Years Used Date Smoking Tobacco: Never Assessed Comments Unknown Sex and Gender Information Value Date Recorded Sex Assigned at Not on file Legal Sex Female 1:09 PM CDT Gender Identity Not on file Sexual Orientation Not on file documented as of this encounter Miscellaneous Notes * Cerner Conversion Note - Jennifer ProviderMD - 12/05/2020 6:01 AM CDT Height and Weight, Routine Entered On: 12/05/2020 6:02 EDT Performed On: 12/05/2020 6:01 EDT by Yeni Lenz, PATIENT EMBEDDED SOFTWARE ENGINEER I Height and Weight, Routine Routine Weight Source : Bed scale Routine Weight Entry Format : Metric Routine Weight, Kilograms : 83.2 kg(Converted to: 183 lb 7 oz) Routine Weight Calculation : 83.2 kg Height Source : Chart Height Entry Format : Traverse Height, Feet : 5 ft Height, Inches : 2 Inch Clinical Height : 157.48 cm Body Surface Area (BSA), Routine : 1.84 m2 Body Mass Index (BMI), Routine : 33.55 kg/m2 Yeni Lenz, PATIENT EMBEDDED SOFTWARE ENGINEER I - 12/05/2020 6:01 EDT Electronically signed by [facility], [facility] Conversion Electronics Specialist Cerner at 09/10/2022 12:44 AM CDT documented in this encounter Plan of Treatment Upcoming Encounters Date Type Department Care Team (Late st Contact Info) Description 05/14/2025 8:00 AM EST Lab Patient Walk-In [facility] - [address] [place] [address] 05/14/2025 8:30 AM EST Appointment [facility] CT - [facility] [address] [facility] [address] [place] [address] Neptali Bergman MD [address] [place] [address] [address] [place] [address] 05/14/2025 10:00 AM EST Appointment [facility] MRI - [facility] [address] [facility] [address] [place] [address] Neptali Bergman MD [address] [place] [address] [address] [place] [address] 05/14/2025 2:15 PM EST Office Visit [facility] - [address] [place] [address] Neptali Bergman MD [address] [place] [address] [address] [place] [address] documented as of this encounter Visit Diagnoses Not on filedocumented in this encounter Care Teams Fitness Manager Relationship Specialty Start Date End Date Jonas Navas MD [address] [facility] [address] [place] [id number] PCP - General Cardiothoracic Surgery 04/15/22 07/23/22 Marcell Uriostegui MD [address] [place] [address] [place] [address] PCP - General Adolescent Medicine 07/24/22 04/05/23 Heidi Rivers APRN 2017 [facility] [address] [place] [address] PCP - General Nurse Practitioner 04/06/23 Neptali Bergman MD [address] [facility] [address] [place] [address] Hematology and Oncology 10/31/24 documented as of this encounter
--- OUTSIDE RECORDS SUMMARY | 2025-04-30 09:28 | XMS_ITS | Encounter Summary ---
Author Organization [employer] ([place], [place], [place], [place], [place]) Address [address] [place] [address] Care Team Providers Care Regulatory Process Manager Name Role Phone Jonas Navas MD Primary Care Provider [phone] Marcell Uriostegui MD Primary Care Provider + [phone] Heidi Rivers APRN Primary Care Provider + [phone] Neptali Bergman MD Unavailable [phone] Encounter Details Date Type Department Care Team (Late st Contact Info) Description 07/27/2019 Transcribed Document [facility] Family Medicine [facility] [place] [address] ProviderJennifer MD [address] [place] [address] Social History Tobacco Use Types Packs/Day Years Used Date Smoking Tobacco: Never Assessed Comments Unknown Sex and Gender Information Value Date Recorded Sex Assigned at Not on file Legal Sex Female 1:09 PM CDT Gender Identity Not on file Sexual Orientation Not on file documented as of this encounter Miscellaneous Notes * Cerner Conversion Note - Jennifer ProviderMD - 07/27/2019 12:58 PM OFFICE SYSTEMS TECHNOLOGY INSTRUCTOR RX Interventions Entered On: 07/27/2019 13:06 EST Performed On: 07/27/2019 13:05 EST by Salome Eldridge, Pharmacist Clinical Interventions Clarify Drug Order : Yes Salome Eldridge, Pharmacist - 07/27/2019 13:05 EST Clarify Drug Order Clarify Drug Order, Order : Order comments state not to give until epidural is removed and patient still has epidural Clarify Drug Order, Value : 0 Dollar Clarify Drug Order, Time : 10 Minute(s) Salome Eldridge, Pharmacist - 07/27/2019 13:05 EST Electronically signed by [facility] Conversion Software Test And Validation Engineer Cerner at 09/10/2022 12:42 AM CDT documented in this encounter Plan of Treatment Upcoming Encounters Date Type Department Care Team (Late st Contact Info) Description 05/14/2025 8:00 AM EST Lab Patient Walk-In [facility] - [address] [place] [address] 05/14/2025 8:30 AM EST Appointment [facility] CT - [address] [facility] [address] [place] [address] [place] [address] [place] [address] [address] [place] [address] 05/14/2025 10:00 AM EST Appointment [facility] MRI - [address] [facility] [address] [place] [address] Neptali Bergman MD [address] [facility] [address] [place] [address] 05/14/2025 2:15 PM EST Office Visit [facility] - [address] [place] [address] Neptali Bergman MD [facility] [address] [place] [address] documented as of this encounter Visit Diagnoses Not on filedocumented in this encounter Care Teams Regulatory Process Manager Relationship Specialty Start Date End Date Jonas Navas MD [address] [facility] [address] [place], [place] [id number] PCP - General Cardiothoracic Surgery 04/15/22 07/23/22 Marcell Uriostegui MD [address] [place] [address] [place] [address] PCP - General Adolescent Medicine 07/24/22 04/05/23 Heidi Rivers APRN [address] [facility] [address] [place] [address] PCP - General Nurse Practitioner 04/06/23 Neptali Bergman MD [address] [facility] [address] [place] [address] Hematology and Oncology 10/31/24 documented as of this encounter
--- OUTSIDE RECORDS SUMMARY | 2025-04-30 09:28 | XMS_ITS | Clinical Summary ---
Author Organization [facility] Address [address] [place] [address] Care Team Providers Care Self Propelled Mining Machine Operator Name Role Phone Heidi Rivers ROMERO Primary Care Provider [phone] Allergies Active Allergy Reactions Criticality Noted Date [...] not know rxn details Low 08/07/2020 Tiotropium [place]-Olodaterol Unknown - Patient states they do not [...] Active fluticasone (Flonase) 50 MCG/ACT nasal spray [place] 1 spray every day by intranasal route. [...] Screening 1955 [facility]-Medicare Annual Wellness (AWV) 1955 [facility]-/Child/Adol SDOH Screenings 1955 [facility]- SDOH Screenings 12/03/1973 [facility]-Adult SDOH Screenings 12/03/1973 [facility]-DTaP,Tdap,and Td Vaccines (1 - Tdap) 08/02/1996 08/01/1996 CT Colonography 12/03/2000 Colonoscopy 12/03/2000 FIT-DNA 12/03/2000 FIT 12/03/2000 FOBT 12/03/2000 Sigmoidoscopy 12/03/2000 [facility]-Colorectal Cancer Screening 12/03/2000 [facility]-Breast Cancer Screening 12/03/2005 [facility]-Lung Cancer Screening 12/03/2005 [facility]-RSV Vaccine: 60+ Years or (1 - Risk 60-74 years 1-dose series) 2015 [facility]-FCAIY-05 Vaccine ( season) 2025 05/06/2022, 05/02/2021, 07/31/2020 [...] this topic Insurance [employer] MEDICARE Care Teams Self Propelled Mining Machine Operator Relationship Specialty Start Date End Date Heidi Rivers APRN [facility] [address] [place] [address] PCP - General 11/03/22
--- OUTSIDE RECORDS SUMMARY | 2025-04-30 09:28 | XMS_ITS | Encounter Summary ---
Author Organization [employer] ([place], [place], [place], [place], [place]) Address [address] [place] [address] Care Team Providers Care Nuclear Powerplant Supervisor Name Role Phone Jonas Navas MD Primary Care Provider [phone] Marcell Uriostegui MD Primary Care Provider + [phone] Heidi Rivers APRN Primary Care Provider + [phone] Neptali Bergman MD Unavailable [phone] Encounter Details Date Type Department Care Team (Late st Contact Info) Description 07/26/2019 Transcribed Document [facility] [place] [address] ProviderJennifer MD [address] [place] [address] Social History Tobacco Use Types Packs/Day Years Used Date Smoking Tobacco: Never Assessed Comments Unknown Sex and Gender Information Value Date Recorded Sex Assigned at Not on file Legal Sex Female 1:09 PM CDT Gender Identity Not on file Sexual Orientation Not on file documented as of this encounter Miscellaneous Notes * Cerner Conversion Note - Jennifer ProviderMD - 07/26/2019 5:00 PM DIRECTOR OF OFFICIATING Chart Check - Review Order Profile Entered On: 07/26/2019 16:27 EST Performed On: 07/26/2019 17:00 EST by Ya Gonzalez RN Chart Check Powerplans Initiated/Discontinued as Appropriate : Yes All Active Orders Reviewed : Yes Ya Gonzalez RN - 07/26/2019 16:27 EST Electronically signed by Hossein [facility] Conversion Rug Setter Velvet Cerner at 09/10/2022 12:31 AM CDT documented in this encounter Plan of Treatment Upcoming Encounters Date Type Department Care Team (Late st Contact Info) Description 05/14/2025 8:00 AM EST Lab Patient Walk[facility] - [address] [place] [address] 05/14/2025 8:30 AM EST Appointment [facility] [address] [place] [address] Neptali Bergman MD [address] [place] [address] 05/14/2025 10:00 AM EST Appointment [facility] MRI - [address] [place] [address] Neptali Bergman MD [address] [place] [address] 05/14/2025 2:15 PM EST Office Visit [facility] - [address] [place] [address] Neptali Bergman MD [address] [place] [address] documented as of this encounter Visit Diagnoses Not on filedocumented in this encounter Care Teams Nuclear Powerplant Supervisor Relationship Specialty Start Date End Date Jonas Navas MD [address] [facility] [address] [place] [address] PCP - General Cardiothoracic Surgery 04/15/22 07/23/22 Marcell Uriostegui MD [address] [place] [address] PCP - General Adolescent Medicine 07/24/22 04/05/23 Heidi Rivers, TON CONTAINER SHIPPER [address] [place] [address] PCP - General Nurse Practitioner 04/06/23 Neptali Bergman MD [address] [facility] [address] [place] [address] Hematology and Oncology 10/31/24 documented as of this encounter
--- OUTSIDE RECORDS SUMMARY | 2025-04-30 09:28 | XMS_ITS | Encounter Summary ---
Author Organization [employer] ([place], [place], [place], [place], [place]) Address [address] [place] [address] Care Team Providers Care Timber Management Assistant Name Role Phone Jonas Navas MD Primary Care Provider [phone] Marcell Uriostegui MD Primary Care Provider + [phone] Heidi Rivers APRN Primary Care Provider + [phone] Neptali Bergman MD Unavailable [phone] Encounter Details Date Type Department Care Team (Late st Contact Info) Description 2020 Transcribed Document [facility] [place] [address] ProviderJennifer MD [address] [place] [address] Social History Tobacco Use Types Packs/Day Years Used Date Smoking Tobacco: Never Assessed Comments Unknown Sex and Gender Information Value Date Recorded Sex Assigned at Not on file Legal Sex Female 1:09 PM CDT Gender Identity Not on file Sexual Orientation Not on file documented as of this encounter Miscellaneous Notes * Cerner Conversion Note - Jennifer ProviderMD - 2020 12:58 PM CDT Initial Discharge Planning Entered On: 2020 13:04 EDT Performed On: 2020 12:58 EDT by JOSE AWAD, RN-Nanny Caregiver Initial Assessment I Previously Documented Living Environment : No qualifying data available. Living Situation : Home Patient Lives With : Spouse Emergency Contact #1 : Colten Yeh Emergency Contact #1 Phone Number : [phone] Emergency Contact #1 Relationship : Emergency Contact #2 : Colten Yeh Emergency Contact #2 Phone Number : [phone] cell# Emergency Contact #2 Relationship : Enter Doctors Name : Jordy Akers MD Does Patient have PCP Listed? : Yes Medical Durable Power of Signing Agent Name : colten Yeh Legal Guardian : No Is Guardianship Needed : No JOSE AWAD, RN-Nanny Caregiver - 2020 12:58 EDT Initial Assessment II Sensory and Motor Deficits : None Current Home Treatments and Equipment : Blood glucose monitor, Oxygen therapy, Shower chair, Walker, Wheelchair Home Equipment Contact Information : [facility] [phone] Does the Patient have a Floor to SNF Benefit? 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 Post Acute/Home Treatments : Blood glucose monitor, Oxygen therapy, Shower chair, Walker, Wheelchair Documentation Status Complete : Yes JOSE AWAD, RN-Nanny Caregiver - 2020 12:58 EDT Discharge Needs II Professional Skilled Services : Professional Skilled Services No qualifying data available. Needs Assistance with Transportation : Maybe Discharge Options Discussed with Patient : Acute rehabilitation, Home Health, [facility], [facility] JOSE AWAD, RN-Nanny Caregiver - 2020 12:58 EDT Narrative Note Narrative Note : admit today. elos: not recorded. RAR: low 37. BOOST: 3 from [facility]. acute resp failure. copd. lung ca-mets. pneumonia. htn. diabetes. anemia. hx: cad-[place] covid 19: negative -. mechancial ventilation. fentanyl gtt. precedex gtt. doxycycline/zosyn iv. solu medrol iv spoke with pt's spouse, Colten. [place] [facility]. pt is adl independent. has mentioned equipment provided by [facility]. no hh or rehab stays. dcp: rehab vs home health. Colten, spouse, is legal next of kin: [phone] spoke with bedside RN, Breonna. JOSE AWAD, RN-Nanny Caregiver - 2020 12:58 EDT Electronically signed by Hossein [facility] Conversion E M Assembler Cerner at 09/10/2022 12:41 AM CDT documented in this encounter Plan of Treatment Upcoming Encounters Date Type Department Care Team (Late st Contact Info) Description 05/14/2025 8:00 AM EST Lab Patient Walk-In [facility] - [address] [place] [address] 05/14/2025 8:30 AM EST Appointment [facility] - [address] [place] [address] Neptali Bergman MD [address] [place] [address] [address] [place] [address] 05/14/2025 10:00 AM EST Appointment [facility] - [address] [place] [address] Neptali Bergman MD [address] [place] [address] [address] [place] [address] 05/14/2025 2:15 PM EST Office Visit [facility] - [address] [place] [address] Neptali Bergman MD [address] [place] [address] [address] [place] [address] documented as of this encounter Visit Diagnoses Not on filedocumented in this encounter Care Teams Timber Management Assistant Relationship Specialty Start Date End Date Jonas Navas MD [address] [facility] [address] [place], [place] [address] PCP - General Cardiothoracic Surgery 04/15/22 07/23/22 Marcell Uriostegui MD [address] [facility] [address] [place] [address] PCP - General Adolescent Medicine 07/24/22 04/05/23 Heidi Rivers APRN [address] [facility] [address] [place] [address] PCP - General Nurse Practitioner 04/06/23 Neptali Bergman MD [address] [facility] [address] [place] [address] Hematology and Oncology 10/31/24 documented as of this encounter
--- OUTSIDE RECORDS SUMMARY | 2025-04-30 09:28 | XMS_ITS | Encounter Summary ---
Author Organization [employer] ([place], [place], [place], [place], [place]) Address [address] [place] [address] Care Team Providers Care Corporate Officer Name Role Phone Jonas Navas MD Primary Care Provider [phone] Marcell Uriostegui MD Primary Care Provider + [phone] Heidi Rivers APRN Primary Care Provider [phone] Neptali Bergman MD Unavailable [phone] Encounter Details Date Type Department Care Team (Late st Contact Info) Description 07/25/2019 Transcribed Document [facility] [place] Medicine [address] [place] [address] ProviderJennifer MD [address] [place] [address] Social History Tobacco Use Types Packs/Day Years Used Date Smoking Tobacco: Never Assessed Comments Unknown Sex and Gender Information Value Date Recorded Sex Assigned at Not on file Legal Sex Female 1:09 PM CDT Gender Identity Not on file Sexual Orientation Not on file documented as of this encounter Miscellaneous Notes * Cerner Conversion Note - Jennifer ProviderMD - 07/25/2019 6:05 AM CAMPER ASSEMBLER Patient: ALEJANDRINA YEH Age: 63 years Sex: Female : 1955 Associated Diagnoses: None Author: YA DENNEY APRN Chief Complaint L lung mass Review of Systems ROS reviewed as documented in chart no change since last seen by surgeon Health Status Allergies: Allergic Reactions (Selected) Severity Not Documented Anoro Ellipta- Chest pain. Corgard- Unknown. DilTIAZem- Unknown. Levaquin- Vomiting. Stiolto Respimat 10 ACT- Chest pain and muscle weakness (generalized)., Allergies (5) Active Reaction Anoro Ellipta Chest pain Corgard Unknown dilTIAZem Unknown Levaquin Vomiting Stiolto Respimat 10 ACT Muscle weakness (generalized) Current medications: (Selected) Inpatient Medications Ordered Ancef: 2 Gram, 50 mL, 100 mL/Hr, IV Piggyback, PREOP Duramorph *PF*-bupiv 10-62.5 mg/NaCl 0.9% 100 mL *Epidural* 100 mL: 6 mL/Hr, Epidural Lactated Ringers Injection intravenous solution 1,000 mL: 20 mL/Hr, IntraVENous Lactated Ringers Injection intravenous solution 1,000 mL: 30 mL/Hr, IntraVENous midazolam: 2 mg, IV Push, Q10Min, PRN: Anxiety Pending Complete Bactroban 2% nasal ointment: 1 Application, Nostrils Both, BID Documented Medications Documented ALPRAZolam: 0.25 mg, Oral, At Bedtime, PRN: Insomnia, 0 Refill(s) Advair Diskus 250 mcg-50 mcg inhalation powder: 1 Puff, Inhalation, BID, 180 Each, 0 Refill(s) ZyrTEC: 10 mg, Oral, Daily, PRN: as needed for allergy symptoms, 0 Refill(s) albuterol: 2 puffs, Inhalation, Q6H, PRN: as needed for shortness of breath or wheezing, 0 Refill(s) aspirin: 325 mg, Oral, Daily, 0 Refill(s) atorvastatin: 40 mg, Oral, At Bedtime, 0 Refill(s) fluticasone 50 mcg/inh nasal spray: 2 [place], Nasal, Daily, PRN: Congestion, 0 Refill(s) hydroCHLOROthiazide-lisinopril 25 mg-20 mg oral tablet: 1 Tab, Oral, Daily, 30 Tab, 0 Refill(s) metFORMIN: 500 mg, Oral, At Bedtime, 0 Refill(s) omeprazole: 20 mg, Oral, Daily, 0 Refill(s), Home Medications (10) Active Advair Diskus 250 mcg-50 mcg inhalation powder 1 Puff, Inhalation, BID albuterol 2 puffs, PRN, Inhalation, Q6H ALPRAZolam 0.25 mg, PRN, Oral, At Bedtime aspirin 325 mg, Oral, Daily atorvastatin 40 mg, Oral, At Bedtime fluticasone 50 mcg/inh nasal spray 2 [place], PRN, Nasal, Daily hydroCHLOROthiazide-lisinopril 25 mg-20 mg oral tablet 1 Tab, Oral, Daily metFORMIN 500 mg, Oral, At Bedtime omeprazole 20 mg, Oral, Daily ZyrTEC 10 mg, PRN, Oral, Daily , Medications (5) Active Scheduled: (1) ceFAZolin/D5w 2 Gram 50 mL, IV Piggyback, PREOP Continuous: (3) lactated ringers 1,000 mL 1,000 mL, IntraVENous, 30 mL/Hr lactated ringers 1,000 mL 1,000 mL, IntraVENous, 20 mL/Hr yy morphine/bupiv 10/62.5 mg 100 mL 100 mL, Epidural, 6 mL/Hr PRN: (1) midazolam 1 mg/1 mL inj 2 mL 2 mg 2 mL, IV Push, Q10Min Problem list: All Problems (Selected) Current every day smoker / SNOMED CT 1362796611 / Confirmed Sleep apnea no c-pap / SNOMED CT 076526969 / Confirmed Sinusitis / SNOMED CT 99041161 / Confirmed Migraine / SNOMED CT 11366701 / Confirmed Hyperlipidemia / SNOMED CT 02672936 / Confirmed High blood pressure / SNOMED CT 65208895 / Confirmed Hiatal hernia / SNOMED CT 210843297 / Confirmed H/O: TIA / SNOMED CT 884176236 / Confirmed GERD - Gastro-esophageal reflux disease / SNOMED CT 0229713652 / Confirmed Shortness of breath / SNOMED CT 504216427 / Confirmed Diverticulosis / SNOMED CT 8660586173 / Confirmed Diabetes mellitus type II / SNOMED CT 30853865 / Confirmed Coronary artery disease s/p CA / SNOMED CT 4329931435 / Confirmed Claustrophobia / SNOMED CT 00492747 / Confirmed 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 / SNOMED CT 47671663 / Confirmed CA - Lung cancer adenocarcinoma / SNOMED CT 3428055046 / Confirmed Back pain / SNOMED CT 8456771450 / Confirmed Arthritis / SNOMED CT 0039233 / Confirmed, Active Problems (18) Arthritis Back pain CA - Lung cancer adenocarcinoma 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 Claustrophobia Coronary artery disease s/p CA Current every day smoker Diabetes mellitus type II Diverticulosis GERD - Gastro-esophageal reflux disease H/O: TIA Hiatal hernia High blood pressure Hyperlipidemia Migraine Shortness of breath Sinusitis Sleep apnea no c-pap Histories Past Medical History: No active or resolved past medical history items have been selected or recorded. Family History: No family history items have been selected or recorded. Procedure history: lung biopsy on 07/10/2019 at 63 Years. Appendectomy ([id number]). cardiac cath with angioplasty. Colonoscopy ([id number]). Social History Social & Psychosocial Habits Alcohol 07/20/2019 Alcohol Use History, Social Habits No Employment/School 07/20/2019 Status: Retired Home/Environment 07/20/2019 Lives with: Spouse Living situation: Home/Independent Home equipment: Glucose monitoring Substance Abuse 07/20/2019 Recreational Drug Use History No Recreational Drug Use Last 12 Months No Tobacco 07/10/2019 Smoking Status 10 or more cigarettes (1/ Smokeless Tobacco Status Never Years of Tobacco Use 42 Packs/Tins Daily 1 Month Tobacco Last Used 07/10/19 07/20/2019 Smoking Status 5-9 cigarettes (between 1 Smokeless Tobacco Status Never . Physical Examination VS/Measurements Vital Signs/Vital Measures 07/25/2019 7:00 EST Systolic Blood Pressure 140 mmHg Diastolic Blood Pressure 79 mmHg Temperature Source Temporal artery scanning Temperature Mode Fahrenheit Temperature, Fahrenheit 97.1 Deg F Clinical Temperature, C 36.2 Deg C Heart Rate Monitored 85 bpm Respiratory Rate 20 Breaths/Min Oxygen Saturation 91 % LOW Oxygen Therapy Mode Room air , Vitals Signs (last 24 hrs) Last Charted Minimum Maximum Temp 97.1 (JUL 24 07:00) 97.1 (JUL 24 07:00) 97.1 (JUL 24 07:00) Mon HR 85 (JUL 24 07:00) 85 (JUL 24 07:00) 85 (JUL 24 07:00) Resp Rate 20 (JUL 24 07:00) 20 (JUL 24 07:00) 20 (JUL 24 07:00) SBP 140 (JUL 24 07:00) 140 (JUL 24 07:00) 140 (JUL 24:) DBP 79 (JUL 24:) 79 (JUL 24:00) 79 (JUL 24:) SpO2 L 91 (JUL 24:) L 91 (JUL 24:) L 91 (JUL 24:) General: Alert and oriented, No acute distress. Eye: Pupils are equal, round and reactive to light, Extraocular movements are intact, glasses. HENT: Normocephalic, Normal hearing. Neck: Supple, Non-tender. Respiratory: Lungs are clear to auscultation, Respirations are non-labored. Cardiovascular: Normal rate, Regular rhythm, No murmur, No gallop, No edema. Gastrointestinal: Soft, Non-tender. Genitourinary: No costovertebral angle tenderness. Lymphatics: No lymphadenopathy neck, axilla, groin. Musculoskeletal: Normal range of motion, Normal strength. Integumentary: Warm, Dry, [place]. Neurologic: Alert, Oriented. Psychiatric: Cooperative, Appropriate mood & affect. Review / Management Results review: Labs (Last four charted values) WBC H 11.5 (JUL 20) HB 13.3 (JUL 20) HCT 41.2 (JUL 20) Plt 297 (JUL 20) Na L 134 (JUL 20) K 3.6 (JUL 20) Cl L 100 (JUL 20) CO2 30 (JUL 20) BUN 21 (JUL 20) Cr 0.70 (JUL 20) Glu R 79 (JUL 20) Ca 9.5 (JUL 20) PT 10.3 (JUL 20) INR 1.0 (JUL 20) PTT 27.2 (JUL 20) AST 10 (JUL 20) ALT 19 (JUL 20) ALK P 106 (JUL 20) T Bili 0.6 (JUL 20) PTN H 8.4 (JUL 20) ALB 3.9 (JUL 20) , Lab results 07/25/2019 6:36 EST Device Comment 1 Device Comment 1 Glucose POC2 131 mg/dL HI . Impression and Plan Condition: Stable. documented in this encounter Plan of Treatment Upcoming Encounters Date Type Department Care Team (Late st Contact Info) Description 05/14/2025 8:00 AM EST Lab Patient Walk-In [facility] - [address] [place] [address] 05/14/2025 8:30 AM EST Appointment [facility] [address] [place] [address] Neptali Bergman MD [address] [place] [address] [address] [place] [address] 05/14/2025 10:00 AM EST Appointment [facility] - [address] [facility] [address] [place] [address] Neptali Bergman MD [address] [place] [address] [address] [place] [address] 05/14/2025 2:15 PM EST Office Visit [facility] - [address] [place] [address] Neptali Bergman MD [address] [place] [address] [address] [place] [address] documented as of this encounter Visit Diagnoses Not on filedocumented in this encounter Care Teams Corporate Officer Relationship Specialty Start Date End Date Jonas Navas MD [address] [facility] [address] [place], [place] [address] PCP - General Cardiothoracic Surgery 04/15/22 07/23/22 Marcell Uriostegui MD [address] [place] [address] [place] [address] PCP - General Adolescent Medicine 07/24/22 04/05/23 Heidi Rivers, SMELLER [address] [place] [address] PCP - General Nurse Practitioner 04/06/23 Neptali Bergman MD [address] [address] Hematology and Oncology 10/31/24 documented as of this encounter
--- OUTSIDE RECORDS SUMMARY | 2025-04-30 09:28 | XMS_ITS | Encounter Summary ---
Author Organization [employer] ([place], [place], [place], [place], [place]) Address [address] [place] [address] Care Team Providers Care High Density Talc Coater Operator Name Role Phone Blaze Walden MD Primary Care Provider [phone] Marcell Uriostegui MD Primary Care Provider + [phone] Heidi Rivers APRN Primary Care Provider + [phone] Neptali Bergman MD Unavailable [phone] Encounter Details Date Type Department Care Team (Late st Contact Info) Description 07/25/2019 Transcribed Document [facility] [place] [address] ProviderJennifer MD [address] [place] [address] Social History Tobacco Use Types Packs/Day Years Used Date Smoking Tobacco: Never Assessed Comments Unknown Sex and Gender Information Value Date Recorded Sex Assigned at Not on file Legal Sex Female 1:09 PM CDT Gender Identity Not on file Sexual Orientation Not on file documented as of this encounter Miscellaneous Notes * Cerner Conversion Note - Jennifer ProviderMD - 07/25/2019 8:34 AM SENIOR CAPITAL MARKETS SPECIALIST [facility] Main OR PACU Summary Primary Physician: BLAZE WALDEN MD-CAT Finalized Date/Time: 07/25/19 13:51:20 Pt. Name: ALEJANDRINA YEH /Sex: 1955 Female Med Rec #: [id number] Physician: BLAZE WALDEN MD-CAT Financial #: [id number] Pt. Type: I Room/Bed: ASA/7 Admit/Disch: 07/25/19 07:00:00 - Institution: [facility] Main OR PACU I Case Times Entry 1 In PACU I 07/25/19 10:58:00 Ready for PACU 07/25/19 11:50:00 Discharge Discharge from PACU 07/25/19 13:35:00 I Last Modified By: Omid Sanz RN 07/25/19 13:50:47 Finalized By: Omid Sanz RN Document Signatures Signed By: Omid Sanz RN 07/25/19 13:51 Electronically signed by Hossein [facility] Conversion [employer] Representative Cerner at 09/10/2022 12:50 AM CDT documented in this encounter Plan of Treatment Upcoming Encounters Date Type Department Care Team (Late st Contact Info) Description 05/14/2025 8:00 AM EST Lab Patient Walk-In [facility] - [address] [place] [address] 05/14/2025 8:30 AM EST Appointment [facility] - [address] [facility] [address] [place] [address] Neptali Bergman MD [address] [place] [address] [address] [place] [address] 05/14/2025 10:00 AM EST Appointment [facility] MRI - [address] [facility] [address] [place] [address] Neptali Bergman MD [address] [place] [address] 05/14/2025 2:15 PM EST Office Visit [facility] - [address] [place] [address] Neptali Bergman MD [facility] [address] [place] [address] documented as of this encounter Visit Diagnoses Not on filedocumented in this encounter Care Teams High Density Talc Coater Operator Relationship Specialty Start Date End Date Blaze Walden MD [address] [facility] [address] [place] [address] PCP - General Cardiothoracic Surgery 04/15/22 07/23/22 Marcell Uriostegui MD [address] [facility] [address] [place] [address] PCP - General Adolescent Medicine 07/24/22 04/05/23 Heidi Rivers APRN [address] [facility] [address] [place] [address] PCP - General Nurse Practitioner 04/06/23 Neptali Bergman MD [address] [facility] [address] [place] [address] Hematology and Oncology 10/31/24 documented as of this encounter
--- OUTSIDE RECORDS SUMMARY | 2025-04-30 09:28 | XMS_ITS | Encounter Summary ---
Author Organization [employer] ([place], [place], [place], [place], [place]) Address [address] [place] [address] Care Team Providers Care Meat Puller Name Role Phone Jonas Navas MD Primary Care Provider [phone] Marcell Uriostegui MD Primary Care Provider + [phone] Heidi Rivers APRN Primary Care Provider + [phone] Neptali Bergman MD Unavailable [phone] Encounter Details Date Type Department Care Team (Late st Contact Info) Description 2020 Transcribed Document [facility] [place] [facility] [place] [address] ProviderJennifer MD [address] [place] [address] Social History Tobacco Use Types Packs/Day Years Used Date Smoking Tobacco: Never Assessed Comments Unknown Sex and Gender Information Value Date Recorded Sex Assigned at Not on file Legal Sex Female 1:09 PM CDT Gender Identity Not on file Sexual Orientation Not on file documented as of this encounter Miscellaneous Notes * Shiraner Conversion Note - Jennifer ProviderMD - 2020 5:00 PM CDT Chart Check - Review Order Profile Entered On: 2020 16:56 EDT Performed On: 2020 17:00 EDT by Breonna Mcgovern RN Chart Check Powerplans Initiated/Discontinued as Appropriate : Yes Breonna Mcgovern RN - 2020 16:56 EDT documented in this encounter Plan of Treatment Upcoming Encounters Date Type Department Care Team (Late st Contact Info) Description 05/14/2025 8:00 AM EST Lab Patient Walk-[facility] - [address] [place] [address] 05/14/2025 8:30 AM EST Appointment [facility] [address] [place] [address] Neptali Bergman MD [address] [facility] [address] [place] [address] 05/14/2025 10:00 AM EST Appointment [facility] MRI - [address] [place] [address] Neptali Bergman MD [address] [place] [address] 05/14/2025 2:15 PM EST Office Visit [facility] - [address] [place] [address] Neptali Bergman MD [address] [place] [address] documented as of this encounter Visit Diagnoses Not on filedocumented in this encounter Care Teams Meat Puller Relationship Specialty Start Date End Date Jonas Navas MD [address] [facility] [address] [place] [address] PCP - General Cardiothoracic Surgery 04/15/22 07/23/22 Marcell Uriostegui MD [address] [place] [address] PCP - General Adolescent Medicine 07/24/22 04/05/23 Heidi Rivers APRN [address] [facility] [address] [place] [address] PCP - General Nurse Practitioner 04/06/23 Neptali Bergman MD [address] [facility] [address] [place] [address] Hematology and Oncology 10/31/24 documented as of this encounter
--- OUTSIDE RECORDS SUMMARY | 2025-04-30 09:28 | XMS_ITS | Encounter Summary ---
Author Organization [facility] ([place], [place], [place], [place], [place]) Address [address] [place] [address] Care Team Providers Care Field Support Representative Name Role Phone Jonas Navas MD Primary Care Provider [phone] Marcell Uriostegui MD Primary Care Provider + [phone] Heidi Rivers APRN Primary Care Provider + [phone] Neptali Bergman MD Unavailable [phone] Encounter Details Date Type Department Care Team (Late st Contact Info) Description 07/27/2019 Transcribed Document [facility] [place] [facility] [place] [address] ProviderJennifer MD [address] [place] [address] Social History Tobacco Use Types Packs/Day Years Used Date Smoking Tobacco: Never Assessed Comments Unknown Sex and Gender Information Value Date Recorded Sex Assigned at Not on file Legal Sex Female 1:09 PM CDT Gender Identity Not on file Sexual Orientation Not on file documented as of this encounter Miscellaneous Notes * Cerner Conversion Note - Jennifer ProviderMD - 07/27/2019 5:00 AM TUBE DRAW HELPER Chart Check - Review Order Profile Entered On: 07/27/2019 3:24 EST Performed On: 07/27/2019 5:00 EST by Aga Huber, RN Chart Check All Active Orders Reviewed : Yes Aga Huber RN - 07/27/2019 3:24 EST Electronically signed by Hossein [facility] Conversion Wellness Assistant Cerner at 09/10/2022 12:41 AM CDT documented in this encounter Plan of Treatment Upcoming Encounters Date Type Department Care Team (Late st Contact Info) Description 05/14/2025 8:00 AM EST Lab Patient [facility] - [address] [place] [address] 05/14/2025 8:30 AM EST Appointment [facility] Imaging CT - [address] [place] [address] [place] [address] [place] [address] [address] [place] [address] 05/14/2025 10:00 AM EST Appointment [facility] MRI - [address] [place] [address] Neptali Bergman MD [address] [facility] [address] [place] [address] 05/14/2025 2:15 PM EST Office Visit [facility] - [address] [place] [address] Neptali Bergman MD [address] [place] [address] [address] [place] [address] documented as of this encounter Visit Diagnoses Not on filedocumented in this encounter Care Teams Field Support Representative Relationship Specialty Start Date End Date Jonas Navas MD [address] [facility] [address] [place] [address] PCP - General Cardiothoracic Surgery 04/15/22 07/23/22 Marcell Uriostegui MD [address] [place] [address] PCP - General Adolescent Medicine 07/24/22 04/05/23 Heidi Rivers, CLINICAL STUDIES SPECIALIST 2017 [facility] [address] [place] [address] PCP - General Nurse Practitioner 04/06/23 Neptali Bergman MD [address] [facility] [address] [place] [address] Hematology and Oncology 10/31/24 documented as of this encounter
--- OUTSIDE RECORDS SUMMARY | 2025-04-30 09:28 | XMS_ITS | Encounter Summary ---
Author Organization [employer] ([place], [place], [place], [place], [place]) Address [address] [place] [address] Care Team Providers Care Product Line Manager Name Role Phone Jonas Navas MD Primary Care Provider [phone] Marcell Uriostegui MD Primary Care Provider + [phone] Heidi Rivers APRN Primary Care Provider + [phone] Neptali Bergman MD Unavailable [phone] Encounter Details Date Type Department Care Team (Late st Contact Info) Description 07/26/2019 Transcribed Document [facility] [place] [facility] [address] ProviderJennifer MD [address] [place] [address] Social History Tobacco Use Types Packs/Day Years Used Date Smoking Tobacco: Never Assessed Comments Unknown Sex and Gender Information Value Date Recorded Sex Assigned at Not on file Legal Sex Female 1:09 PM CDT Gender Identity Not on file Sexual Orientation Not on file documented as of this encounter Miscellaneous Notes * Cerner Conversion Note - Jennifer ProviderMD - 07/26/2019 12:20 PM GROCERY STOCK CLERK UM Authorization Entered On: 07/26/2019 12:20 EST Performed On: 07/26/2019 12:20 EST by SURENDRA FRANK Rn-Utilization Review Primary Insurance Authorization Authorization and Policy Numbers : Insurance 1 Health Plan: [employer] Policy Number: [id number] Authorization Number: [id number] Insurance Primary Name : HEALTH SYSTEM Policy Number: [id number] Authorization Status-Primary : Admit approved Authorization Number-Primary : [id number] Number of Days Authorized-Primary : 3 Day(s) Authorized Service Begin Date-Primary : 07/25/2019 EST Authorized Service End Date-Primary : 07/28/2019 EST Historical Authorization Comments-Primary : Comment 1: [place] approved per availity for 4 days inpt (NORI VALVERDE, RN-Utilization Review 07/21/2019 13:39) SURENDRA FRANK Rn-Utilization Review - 07/26/2019 12:20 EST Electronically signed by Hossein [facility] Conversion Program Lead Cerner at 09/10/2022 12:45 AM CDT documented in this encounter Plan of Treatment Upcoming Encounters Date Type Department Care Team (Late st Contact Info) Description 05/14/2025 8:00 AM EST Lab Patient Walk-In [facility] - [address] [place] [address] 05/14/2025 8:30 AM EST Appointment [facility] [address] [place] [address] Neptali Bergman MD [address] [place] [address] 05/14/2025 10:00 AM EST Appointment [facility] MRI - [address] [facility] [address] [place] [address] Neptali Bergman MD [address] [place] [address] 05/14/2025 2:15 PM EST Office Visit [facility] - [address] [place] [address] Neptali Bergman MD [address] [place] [address] documented as of this encounter Visit Diagnoses Not on filedocumented in this encounter Care Teams Product Line Manager Relationship Specialty Start Date End Date Jonas Navas MD [address] [facility] [address] [place], [place] [address] PCP - General Cardiothoracic Surgery 04/15/22 07/23/22 Marcell Uriostegui MD [address] [facility] [address] [place] [address] PCP - General Adolescent Medicine 07/24/22 04/05/23 Heidi Rivers, ROMERO [address] [place] [address] PCP - General Nurse Practitioner 04/06/23 Neptali Bergman MD [address] [facility] [address] [place] [address] Hematology and Oncology 10/31/24 documented as of this encounter
--- OUTSIDE RECORDS SUMMARY | 2025-04-30 09:28 | XMS_ITS | Encounter Summary ---
Author Organization [employer] ([place], [place], [place], [place], [place]) Address [address] [place] [address] Care Team Providers Care Alarm Service Technician Name Role Phone Jonas Navas MD Primary Care Provider [phone] Marcell Uriostegui MD Primary Care Provider + [phone] Heidi Rivers APRN Primary Care Provider + [phone] Lu Bergman MD Unavailable [phone] Encounter Details Date Type Department Care Team (Late st Contact Info) Description 12/05/2020 Transcribed Document [facility] [place] [address] [place] [address] ProviderJennifer MD [address] [place] [address] Social History Tobacco Use Types Packs/Day Years Used Date Smoking Tobacco: Never Assessed Comments Unknown Sex and Gender Information Value Date Recorded Sex Assigned at Not on file Legal Sex Female 1:09 PM CDT Gender Identity Not on file Sexual Orientation Not on file documented as of this encounter Miscellaneous Notes * Cerner Conversion Note - Jennifer ProviderMD - 12/05/2020 9:52 AM CDT Patient: ALEJANDRINA ELMORE Age: 65 years Sex: Female : 1955 Associated Diagnoses: None Author: LU BERGMAN MD-ONC Attachments: None Subjective Chief complaint Chief complaint Awake but on vent. No changes since yesterday Health Status Allergies Allergies (6) Active Reaction [...] 0.9% 100 mL 100 mg, IV Piggyback, [id number] heparin 5,000 units/1 mL inj 5,000 Units 1 mL, SubCutaneous, Q8H insulin lispro 1 unit/0.01 mL inj 76 kg - 100 kg scale, SubCutaneous, Q6H methylPREDNISolone SUCCinate 40 mg/1 mL inj PF 40 mg 1 mL, IV Push, Q6H pantoprazole 40 mg inj 40 mg, IV [...] Piggyback, Q6H Objective General Alert and oriented Moderate distress Eye Pupils are equal, round and reactive to light HENT Normocephalic Neck Supple Respiratory Lungs are clear to auscultation Cardiovascular Normal rate Regular rhythm Gastrointestinal Soft Non-tender Impression and Plan Assessment and Plan Diagnosis Adenocarcinoma of lung with diffuse mets that have been resected, on chemotherapy. Resp failure Course Progressing as expected Orders Expect WBC to worsen since chemo given last week. I need to look at chest scan. Worried about new lung mass and if present would be sign of progeression and poor outcome. Electronically signed by Kolby Catalan Conversion Photographic Press Screwmaker Cerner at 09/10/2022 12:50 AM CDT documented in this encounter Plan of Treatment Upcoming Encounters Date Type Department Care Team (Late st Contact Info) Description 05/14/2025 8:00 AM EST Lab Patient Walk-In [place] [facility] - [address] [place] [address] 05/14/2025 8:30 AM EST Appointment [facility] [address] [place] [address] [facility] [address] [place] [address] Lu Bergman MD [address] [place] [address] [address] [place] [address] 05/14/2025 10:00 AM EST Appointment [facility] MRI - [place] [facility] [address] [facility] [address] [place] [address] [place] [address] [place] [address] [address] [place] [address] 05/14/2025 2:15 PM EST Office Visit [place] [facility] - [address] [place] [address] Lu Bergman MD [address] [facility] [address] [place] [address] documented as of this encounter Visit Diagnoses Not on filedocumented in this encounter Care Teams Alarm Service Technician Relationship Specialty Start Date End Date Jonas Navas MD [address] [facility] [address] [place] [address] PCP - General Cardiothoracic Surgery 04/15/22 07/23/22 Marcell Uriostegui MD [address] [place] [address] PCP - General Adolescent Medicine 07/24/22 04/05/23 Heidi Rivers APRN [address] [place] [address] PCP - General Nurse Practitioner 04/06/23 Lu Bergman MD [address] [facility] [address] [place] [address] Hematology and Oncology 10/31/24 documented as of this encounter
--- OUTSIDE RECORDS SUMMARY | 2025-04-30 09:28 | XMS_ITS | Encounter Summary ---
Author Organization [employer] ([place], [place], [place], [place], [place]) Address [address] [place] [address] Care Team Providers Care Housekeeper And Laundry Assistant Name Role Phone Jonas Navas MD Primary Care Provider [phone] Marcell Uriostegui MD Primary Care Provider + [phone] Heidi Rivers APRN Primary Care Provider + [phone] Neptali Bergman MD Unavailable [phone] Encounter Details Date Type Department Care Team (Late st Contact Info) Description 07/25/2019 Transcribed Document [facility] [place] [address] [place] [address] ProviderJennifer MD [address] [place] [address] Social History Tobacco Use Types Packs/Day Years Used Date Smoking Tobacco: Never Assessed Comments Unknown Sex and Gender Information Value Date Recorded Sex Assigned at Not on file Legal Sex Female 1:09 PM CDT Gender Identity Not on file Sexual Orientation Not on file documented as of this encounter Miscellaneous Notes * Cerner Conversion Note - Jennifer Arroyo MD - 07/25/2019 10:43 AM HEALTH SERVICES MANAGER DATE OF PROCEDURE: 07/25/2019 SURGEON: Jonas Navas MD PREOPERATIVE DIAGNOSES: 1. Adenocarcinoma of the left upper lobe of lung. 2. Chronic persistent ongoing tobacco abuse. 3. Chronic obstructive pulmonary disease. 4. Coronary artery disease. 5. Type 2 diabetes mellitus. 6. Chronic bronchitis. 7. Hyperlipidemia. POSTOPERATIVE DIAGNOSES: 1. Adenocarcinoma of the left upper lobe of lung. 2. Chronic persistent ongoing tobacco abuse. 3. Chronic obstructive pulmonary disease. 4. Coronary artery disease. 5. Type 2 diabetes mellitus. 6. Chronic bronchitis. 7. Hyperlipidemia. PROCEDURES: 1. Left minimally invasive muscle sparing thoracotomy. 2. Left upper lobectomy. 3. Mediastinal lymphadenectomy. QA REVIEWER: KARL Singh. HISTORICAL NOTE: This 63-year-old female with chronic persistent ongoing tobacco [...] other abnormality in the body was found. OPERATIVE FINDINGS: With the patient under general anesthesia with double-lumen endotracheal tube, she was positioned in a right lateral decubitus position and sterile field was applied. Time-out was called and left side was confirmed by all in the room as well as left side for the lung lesion by CT scan on the room monitor. The patient underwent a minimally invasive muscle sparing left posterolateral thoracotomy with the incision at the medial aspect of the left scapula. The latissimus and trapezius muscles were mobilized but not divided. The fifth intercostal interspace was entered, and the pleural space had no adhesions whatsoever. The major fissure was well developed. Hemostasis was acquired as necessary with electrocautery. The dissection in the hilum was initiated and 2 major branches from the pulmonary artery to the upper lobe were divided between clips. At this point, along the cephalad aspect of the left hilum, the branches to the upper lobe from the pulmonary artery were also divided between clips. The superior pulmonary veins were then mobilized, and these were also divided between clips. At this point, major lymph nodes were harvested as necessary and submitted for separate pathologic inspection. The bronchus to the left upper lobe and lingula were identified, and the proximal portion at the mainstem bronchus on the left was identified and then the TA 30 stapler was placed. The lung was allowed to expand and air flow into the lower lobe was confirmed. The stapler was fired, and the bronchus was divided and the specimen delivered into the wound. The bronchus was then tested to 25 cm of water pressure, and no air leaks were identified. The inferior pulmonary ligament was then divided, and the inferior pulmonary lymph node was obtained and submitted separately. AP window was then opened, and large lymph nodes in that area were harvested and submitted for permanent inspection. The preparations for wound closure were made, and a 32-Chinese chest tube was placed through a separate anterior stab incision and secured with silk suture. The intercostal interspace was closed with the use of #1 looped PDS with the inferior rib drilled to avoid the neurovascular bundle. The fascia was then closed with a running #1 PDS. The skin was closed with a subcuticular 3-0 Monocryl. Sponge and needle counts correct. The technical aspects of the procedure were satisfactory and it is hoped the patient will have a good operative result. /[id number] MD SHAQ Rhodes/LOUNAN / SHAQ / MODL /[id number] CC: Jonas Navas MD Electronically signed by Hossein [facility] Conversion Seamer Elastic Band Cerner at 09/10/2022 12:48 AM CDT documented in this encounter Plan of Treatment Upcoming Encounters Date Type Department Care Team (Late st Contact Info) Description 05/14/2025 8:00 AM EST Lab Patient Walk-In [place] [facility] - [place] [address] [email or web address] [address] [place] [address] 05/14/2025 8:30 AM EST Appointment [facility] - [address] [facility] [address] [place] [address] [place] [address] [place] [address] [address] [place] [address] 05/14/2025 10:00 AM EST Appointment [facility] MRI - [facility] [address] [facility] [address] [place] [address] [place] [address] [place] [address] [address] [place] [address] 05/14/2025 2:15 PM EST Office Visit [facility] - [address] [facility] [address] [place] [address] Neptali Bergman MD [address] [facility] [address] [place] [address] documented as of this encounter Visit Diagnoses Not on filedocumented in this encounter Care Teams Housekeeper And Laundry Assistant Relationship Specialty Start Date End Date Jonas Navas MD [address] [facility] [address] [place] [address] PCP - General Cardiothoracic Surgery 04/15/22 07/23/22 Marcell Uriostegui MD [address] [place] [address] PCP - General Adolescent Medicine 07/24/22 04/05/23 Heidi Rivers, ROMERO [address] [facility] [address] [place] [address] PCP - General Nurse Practitioner 04/06/23 Neptali Bergman MD [address] [facility] [address] [place] [address] Hematology and Oncology 10/31/24 documented as of this encounter
--- OUTSIDE RECORDS SUMMARY | 2025-04-30 09:28 | XMS_ITS | Encounter Summary ---
Author Organization [email or web address] ([place], [place], [place], [place], [place]) Address [address] [place] [address] Care Team Providers Care Baggage Porter Name Role Phone Jonas Navas MD Primary Care Provider [phone] Marcell Uriostegui MD Primary Care Provider + [phone] Heidi Rivers APRN Primary Care Provider + [phone] Neptali Bergman MD Unavailable [phone] Encounter Details Date Type Department Care Team (Late st Contact Info) Description 07/26/2019 Transcribed Document [facility] Family Medicine [place] [address] ProviderJennifer MD [address] [place] [address] Social History Tobacco Use Types Packs/Day Years Used Date Smoking Tobacco: Never Assessed Comments Unknown Sex and Gender Information Value Date Recorded Sex Assigned at Not on file Legal Sex Female 1:09 PM CDT Gender Identity Not on file Sexual Orientation Not on file documented as of this encounter Miscellaneous Notes * Cerner Conversion Note - Historical ProviderMD - 07/26/2019 9:49 AM WASTEWATER MANAGER Initial Discharge Planning Entered On: 07/26/2019 9:53 EST Performed On: 07/26/2019 9:49 EST by ALEXUS LEON, Rn-Safety Advisor Initial Assessment I Previously Documented Living Environment : No qualifying data available. Living Situation : Home Patient Lives With : Spouse Is the Patient a Caregiver at Home? : No Emergency Contact #1 : Ti Yeh Emergency Contact #1 Emergency Contact #1 Relationship : spouse Emergency Contact #2 : na Emergency Contact #2 Phone Number : na Emergency Contact #2 Relationship : na Enter Doctors Name : Heidi Rivers Does Patient have PCP Listed? : Yes Medical Durable Power of Casino Cage Cashier Name : Yayo Yeh Legal Guardian : No Date Hospital Obtained Advance Directive : 07/25/2019 EST Is Guardianship Needed : No ALEXUS LEON Rn-Safety Advisor - 07/26/2019 9:49 EST Initial Assessment II Sensory and Motor Deficits : None Current Home Treatments and Equipment : Blood glucose monitor, CPAP ALEXUS LEON Rn-Safety Advisor - 07/26/2019 9:49 EST Discharge Needs I Anticipated Discharge Date : 07/28/2019 EST Anticipated Discharge To, CM : Home with family care Current Home Treatment/Equipment : Current Home Treatment/Equipment No qualifying data available. Post Acute/Home Treatments : Blood glucose monitor, CPAP Documentation Status Complete : Yes ALEXUS LEON Rn-Safety Advisor - 07/26/2019 9:49 EST Discharge Needs II Professional Skilled Services : Professional Skilled Services No qualifying data available. Needs Assistance with Transportation : No Discharge Options Discussed with Patient : Discharge transportation, DME, Home Health, Short term rehabilitation ALEXUS LEON Rn-Safety Advisor - 07/26/2019 9:49 EST Narrative Note Narrative Note : Day 1/POD 1 L Muscle Sparing Thoracotomy/LULectomy/Medial Lymphadenectomy Hx Adenocarcinoma; COPD; CAD; [place]; DM; Smoker; Htn; TIA CTS/PT 02=4L/97%; WBC 18.6 increased from 14.0; L CT; Epidural Met pt/spouse Yayo at bedside; pt with c/o of pain; lives with spouse; PLOF independent, drives, no hx of hhc or STR; has CPAP she does not wear; AD on file in chart - spouse Yayo is HCS. Anticipate pt will d/c home without needs. ALEXUS LEON Rn-Safety Advisor - 07/26/2019 9:49 EST documented in this encounter Plan of Treatment Upcoming Encounters Date Type Department Care Team (Late st Contact Info) Description 05/14/2025 8:00 AM EST Lab Patient Walk-In [facility] - [address] [place] [address] 05/14/2025 8:30 AM EST Appointment [facility] [address] [place] [address] [place] [address] [place] [address] [address] [place] [address] 05/14/2025 10:00 AM EST Appointment [facility] [address] [place] [address] Neptali Bergman MD [address] [place] [address] [address] [place] [address] 05/14/2025 2:15 PM EST Office Visit [facility] - [address] [place] [address] Neptali Bergman MD [address] [place] [address] [address] [place] [address] documented as of this encounter Visit Diagnoses Not on filedocumented in this encounter Care Teams Baggage Porter Relationship Specialty Start Date End Date Jonas Navas MD [address] [facility] [address] [place], [place] [id number] PCP - General Cardiothoracic Surgery 04/15/22 07/23/22 Marcell Uriostegui MD [address] [place] [address] PCP - General Adolescent Medicine 07/24/22 04/05/23 Heidi Rivers, ROMERO [address] [facility] [address] [place] [address] PCP - General Nurse Practitioner 04/06/23 Neptali Bergman MD [address] [place] [address] [address] [place] [address] Hematology and Oncology 10/31/24 documented as of this encounter
--- OUTSIDE RECORDS SUMMARY | 2025-04-30 09:28 | XMS_ITS | Encounter Summary ---
Author Organization [employer] ([place], [place], [place], [place], [place]) Address [address] [place] [address] Care Team Providers Care Processing Tech Name Role Phone Jonas Navas MD Primary Care Provider [phone] Marcell Uriostegui MD Primary Care Provider + [phone] Heidi Rivers APRN Primary Care Provider + [phone] Neptali Bergman MD Unavailable [phone] Encounter Details Date Type Department Care Team (Late st Contact Info) Description 2020 Transcribed Document [facility] [place] [facility] [place] [address] ProviderJennifer MD [address] [place] [address] Social History Tobacco Use Types Packs/Day [...] Consult Phone Call Documentation Entered On: 2020 9:10 EDT Performed On: 2020 9:00 EDT by Natalia Russ Care Asst-Health Unit Coord Phone Call for Consults Consult Phone Call/Page Attempt : First call Consult Reason : anemia Physician Requesting Consult : HAJA YUAN, DO-INT Physician Requested for Consult : JIM DOYLE MD Provider Service Notified Name : Gastroenterology Consult, Additional Information : consulted GI office Ken Russmichelle Diallo, [facility] Unit Coord - 2020 9:08 EDT Electronically signed by Hossein [facility] Conversion Scoop Driver Cerner at 09/10/2022 12:47 AM CDT documented in this encounter Plan of Treatment Upcoming Encounters Date Type Department Care Team (Late st Contact Info) Description 05/14/2025 8:00 AM EST Lab Patient Walk-In [facility] - [place] [place] [address] 05/14/2025 8:30 AM EST Appointment [facility] CT [address] [place] [address] Neptali Bergman MD [address] [place] [address] [address] [place] [address] 05/14/2025 10:00 AM EST Appointment [facility] MRI - [address] [facility] [address] [place] [address] Neptali Bergman MD [address] [place] [address] [address] [place] [address] 05/14/2025 2:15 PM EST Office Visit [facility] - [address] [place] [address] Neptali Bergman MD [address] [place] [address] [address] [place] [address] documented as of this encounter Visit Diagnoses Not on filedocumented in this encounter Care Teams Processing Tech Relationship Specialty Start Date End Date Jonas Navas MD [address] [facility] [address] [place] [address] PCP - General Cardiothoracic Surgery 04/15/22 07/23/22 Marcell Uriostegui MD [address] [place] [address] [place] [address] PCP - General Adolescent Medicine 07/24/22 04/05/23 Heidi Rivers APRN [address] [facility] [address] [place] [address] PCP - General Nurse Practitioner 04/06/23 Neptali Bergman MD [address] [facility] [address] [place] [address] Hematology and Oncology 10/31/24 documented as of this encounter
--- OUTSIDE RECORDS SUMMARY | 2025-04-30 09:28 | XMS_ITS | Encounter Summary ---
Author Organization [employer] ([place], [place], [place], [place], [place]) Address [address] [place] [address] Care Team Providers Care Marionette Performer Name Role Phone Jonas Navas MD Primary Care Provider [phone] Marcell Uriostegui MD Primary Care Provider + [phone] Heidi Rivers APRN Primary Care Provider + [phone] Neptali Bergman MD Unavailable [phone] Encounter Details Date Type Department Care Team (Late st Contact Info) Description 05/23/2020 Transcribed Document [facility] [place] [facility] [place] [address] ProviderJennifer MD [address] [place] [address] Social History Tobacco Use Types Packs/Day Years Used Date Smoking Tobacco: Never Assessed Comments Unknown Sex and Gender Information Value Date Recorded Sex Assigned at Not on file Legal Sex Female 1:09 PM CDT Gender Identity Not on file Sexual Orientation Not on file documented as of this encounter Miscellaneous Notes * Cerner Conversion Note - Jennifer ProviderMD - 05/23/2020 12:51 PM HEALTH ECONOMIST Initial Discharge Planning Entered On: 05/23/2020 12:53 EST Performed On: 05/23/2020 12:51 EST by SUNG OWENS RN-Nutrition Associate Initial Assessment I Previously Documented Living Environment [...] none` Emergency Contact #2 Relationship : none` Medical Durable Power of Elevator Constructor Hydraulic Name : Yayo Yeh Legal Guardian : No SUNG OWENS RN-Nutrition Associate - 05/23/2020 12:51 EST Initial Assessment II Sensory and Motor Deficits : None Current Home Treatments and Equipment : Blood glucose monitor, CPAP, Shower chair, Walker Does the Patient have a Floor to SNF Benefit? : No SUNG OWENS RN-Nutrition Associate - 05/23/2020 12:51 EST Discharge Needs I Anticipated Discharge Date : 05/23/2020 EST Anticipated Discharge To, CM : Home with family care Current Home Treatment/Equipment : Current Home Treatment/Equipment No qualifying data available. Post Acute/Home Treatments : Walker Documentation Status Complete : Yes SUNG OWENS RN-Nutrition Associate - 05/23/2020 12:51 EST Discharge Needs II Professional Skilled Services : Professional Skilled Services No qualifying data available. Needs Assistance with Transportation : No Discharge Options Discussed with Patient : DME, Home Health SUNG OWENS RN-Nutrition Associate - 05/23/2020 12:51 EST Narrative Note Narrative Note : 64yo female pt s/p L5-S1 TLIF. Pt ambulated 360ft with PT this am. Met with pt and spouse at bedside to discuss DCP. Pt has DME at home including a rollator. PT recs FRW as it is safer. Pt has no DME provider pref. Obtained one from [facility] and it has been delivered. Pt declines HH services. Pt dc'd home with spouse assistance. SUNG OWENS RN-Nutrition Associate - 05/23/2020 12:51 EST Electronically signed by Kolby Catalan Conversion Roll Forming Machine Set Up Operator Cerner at 09/10/2022 12:51 AM CDT documented in this encounter Plan of Treatment Upcoming Encounters Date Type Department Care Team (Late st Contact Info) Description 05/14/2025 8:00 AM EST Lab Patient Walk-In [facility] - [place] [address] [place] [address] 05/14/2025 8:30 AM EST Appointment [facility] [address] [place] [address] Neptali Bergman MD [address] [place] [address] 05/14/2025 10:00 AM EST Appointment [facility] - [address] [place] [address] Neptali Bergman MD [address] [place] [address] 05/14/2025 2:15 PM EST Office Visit [facility] - [address] [place] [address] Neptali Bergman MD [address] [facility] [address] [place] [address] documented as of this encounter Visit Diagnoses Not on filedocumented in this encounter Care Teams Marionette Performer Relationship Specialty Start Date End Date Jonas Navas MD [address] [facility] [address] [place] [address] PCP - General Cardiothoracic Surgery 04/15/22 07/23/22 Marcell Uriostegui MD [address] [place] [address] [place] [address] PCP - General Adolescent Medicine 07/24/22 04/05/23 Heidi Rivers APRN [address] [facility] [address] [place] [address] PCP - General Nurse Practitioner 04/06/23 Neptali Bergman MD [address] [facility] [address] [place] [address] Hematology and Oncology 10/31/24 documented as of this encounter
--- OUTSIDE RECORDS SUMMARY | 2025-04-30 09:28 | XMS_ITS | Encounter Summary ---
Author Organization [employer] ([place], [place], [place], [place], [place]) Address [address] [place] [address] Care Team Providers Care Director Of Payroll Name Role Phone Jonas Navas MD Primary Care Provider [phone] Marcell Uriostegui MD Primary Care Provider + [phone] Heidi Rivers APRN Primary Care Provider + [phone] Lu Bergman MD Unavailable [phone] Encounter Details Date Type Department Care Team (Late st Contact Info) Description 2020 Transcribed Document [facility] [place] [facility] [place] [address] ProviderJennifer MD [address] [place] [id number] Social History Tobacco Use Types Packs/Day Years Used Date Smoking Tobacco: Never Assessed Comments Unknown Sex and Gender Information Value Date Recorded Sex Assigned at Not on file Legal Sex Female 1:09 PM CDT Gender Identity Not on file Sexual Orientation Not on file documented as of this encounter Miscellaneous Notes * Cerner Conversion Note - Jennifer ProviderMD - 2020 10:12 AM CDT Patient: ALEJANDRINA YEH Age: 65 Years Sex: Female : 1955 Reason for Consultation anemia History of Present Illness This is a 65-year-old female with a past medical history of 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 Patient is currently intubated, sedated, and on mechanical ventilation and no family members at present at bedside; therefore, medical history is primarily retrieved from chart. Per report, patient presented to outlying facility for altered mental status on 12/01/20. Ms Yeh apparently was worsening headaches for the past 3 weeks. Patient has had cerebral swelling in the past and is currently on steroids. She is also taking chemotherapy treatment for lung cancer, last administration about 6 days ago. There has been no reports of yash blood loss, melena, hematochezia, hematemesis, or abdominal pain. It does not appear she is on anticoagulation therapy at home. Ms Yeh does respond to commands and questions upon examination. Hgb from 11/28 was 11.7 and it is currently 8.4, plt 207. Review of Systems cannot obtain due to patient's clinical status Vital Signs T: 37.9 ??C TMIN: 37.4 ??C TMAX: 37.9 ??C HR: 54(Monitored) RR: 16 BP: 126/61 SpO2: 98% WT: 81 kg Oxygen Settings (Last) Oxygen Therapy Mode: Mechanical ventilation (12/04/20 08:14:00) Physical Exam General: Critically ill, intubated, sedated Neurologic: sedated but arousable Eye: PERRL, EOMI, normal conjunctiva, no scleral icterus HENT: Normocephalic, normal hearing, moist oral mucosa. Neck: Supple, non-tender, no lymphadenopathy. Lungs: intubated on mechanical vent Heart: Normal rate, regular rhythm, no murmur, or edema. Abdomen: Soft, non-tender, non-distended, normal bowel sounds, no masses.No high pitched or tinkling sounds. No guarding or rebound. Patient shakes head when asked if she has abdominal pain. Musculoskeletal: intubated/sedated Skin: Skin is warm, dry and pink Psychiatric: cannot assess Assessment/Plan Anemia Patient is currently critically ill, sedated, and intubated on a mechanical vent. Due to lack of overt blood loss, current chemotherapy treatment, and patient's clinical status, it is not felt that endoscopy would not be recommended at this time. Continue to monitor h/h and transfuse as needed per primary team. Would reconsider endoscopy if signs of overt bleeding. H&P above was performed by Humaira Jenkins PA-C and discussed with Dr. Cabrera. Thank you for this consultation! I, Roro Cabrera, have personally interviewed the patient, reviewed the chart, performed the physical exam and formulated the treatment plan (12/04). Limited history and OSH at time of consultation. Spoke with at bedside and patient was without any complaints of GIB and noted to have recent chemotherapy. Continue supportive care. Happy to assist if signs of overt bleeding. VTE Prophylaxis - Medical Sequential Compression Device Start: 12/04/20 0:45:00 EDT, Bilateral, Length: Knee High, While patient is in bed, Continuous Order (DAI HAMMOND) Provider Information Primary Care Physician - PHOusmane, NOT LISTED Attending Physician - HAJA YUAN DO-INT Admitting Physician - HAJA YUAN DO-INT Consulting Physician - JAIME FARLEY MD (Pulmonary Services)- resp failure Consulting Physician - NIDIA SOLOMON MD-CAR (Cardiology)- elevted troponin Consulting Physician - JIM DOYLE MD (GI consult)- Anemia Consulting Physician - LU BERGMAN MD-ONC - lung cancer Consulting Physician - SERGE JARAMILLO MD-ONC Consulting Physician - RORO CABRERA MD Problem List/Past Medical History Ongoing Arthritis Back pain CA - Lung cancer adenocarcinoma 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 Claustrophobia Coronary artery disease s/p ND Diabetes mellitus type II Diverticulosis GERD - Gastro-esophageal reflux disease H/O: TIA Hiatal hernia High blood pressure History of obstructive sleep apnea Hyperlipidemia Migraine Seasonal allergies Shortness of breath Sinusitis Sleep apnea no c-pap Historical Pneumonia Procedure/Surgical History FUSION LUMSAC JT W INTBD FUS DEV, POST APPR A COL, OPEN (05/22/2020), MONITOR PERIPHERAL NERVOUS ELECTR ACTIVITY, INTRAOP, ENGINEER AUTOMATED EQUIPMENT (05/22/2020), RESECTION OF LUMBOSACRAL DISC, OPEN APPROACH (05/22/2020), EXCISION OF LEFT ADRENAL GLAND, PERC ENDO APPROACH (03/28/2020), LAPAROSCOPY ADRENALECTOMY PRTL/COMPL TABDL (03/28/2020), ROBOTIC ASSISTED PROCEDURE OF TRUNK, PERC ENDO APPROACH (03/28/2020), abdominal wall mass (01/2020), EXCISION OF THORAX LYMPHATIC, OPEN APPROACH (07/25/2019), Lobectomy of upper lobe of left lung (07/25/2019), RESECTION OF LEFT UPPER LUNG LOBE, OPEN APPROACH (07/25/2019), lung biopsy (07/10/2019), Colonoscopy (10/2018), Appendectomy, cardiac cath with angioplasty. Medications Inpatient Alimta + Sodium Chloride 0.9% intravenous solution [...] 0.1 mg= 1 Tab, Oral, Q4H, PRN dexAMETHasone + Sodium Chloride 0.9% intravenous solution 50 mL dexAMETHasone + Sodium Chloride 0.9% intravenous solution 50 mL dexmedeTOMIDine injection 400 mcg + NaCl 0.9% [...] 1 mg= 1 mL, IV Push, 1-Time hydrALAZINE, 10 mg= 0.5 mL, IV Push, Q3H, PRN insulin lispro 76 kg - 100 kg, 76 kg - 100 kg scale, SubCutaneous, AC and at Bedtime Keytruda + Sodium Chloride 0.9% intravenous solution 100 mL Keytruda + Sodium Chloride 0.9% intravenous solution 100 mL magnesium sulfate, 2 Gram= 50 mL, IV Piggyback, 1-Time magnesium sulfate, 2 Gram= 50 mL, IV [...] mg= 0.25 mL, IntraVENous, Q6H, PRN potassium bicarbonate 20 mEq oral tablet, effervescent, 60 mEq= 3 Tab, Oral, 1-Time potassium chloride 10 mEq/50 mL intravenous solution, 10 mEq= 50 mL, IV Piggyback, Q1H, PRN potassium chloride 20 mEq oral tablet, extended release, 20 mEq= 1 Tab, Oral, Q2H, PRN potassium chloride 20 mEq oral tablet, extended release, 60 mEq= 3 Tab, Oral, Q2H, PRN Protonix, 40 mg, IV Piggyback, BID Sodium Chloride 0.9% intravenous solution, 250 mL, IntraVENous, 1-Time Sodium Chloride 0.9% intravenous solution, 250 mL, IntraVENous, 1-Time Sodium Chloride 0.9% intravenous solution, 250 mL, IntraVENous, 1-Time Sodium Chloride 0.9% intravenous solution, 250 mL, IntraVENous, 1-Time sodium phosphate sodium phosphate Tylenol, 650 mg= 2 Tab, Oral, Q4H, PRN Vitamin B-12, 1000 mcg= 1 mL, IntraMuscular, 1-Time Vitamin B-12, 1000 mcg= 1 mL, IntraMuscular, 1-Time Zofran, 4 mg= 2 mL, IV Push, Q4H, PRN Zosyn + Sodium Chloride 0.9% intravenous solution 100 mL Home Advair Diskus 250 mcg-50 mcg inhalation powder, 1 Puff, Inhalation, BID albuterol, 2 puffs, Inhalation, Q6H, PRN ALPRAZolam, 0.25 mg, Oral, At Bedtime, PRN aspirin, 325 mg, Oral, Daily atorvastatin, 40 mg, Oral, At Bedtime cyclobenzaprine 10 mg oral tablet, 10 mg= 1 Tab, Oral, TID, PRN, 1 refills fluticasone 50 mcg/inh nasal spray, 2 [place], Nasal, Daily, PRN hydroCHLOROthiazide-lisinopril 25 mg-20 mg oral tablet, 1 Tab, Oral, Daily [place] 10 mg-325 mg oral tablet, 1 Tab, Oral, Q4H, PRN omeprazole, 20 mg, Oral, Daily Allergies Anoro Ellipta [...] Test Name Test Result Date/Time pH Art 7.54 (High) 2020 06:05 EDT pH Art 7.52 (High) 2020 01:55 EDT pCO2 Art 35.5 mmHg 2020 06:05 EDT pCO2 Art 37.2 mmHg 2020 01:55 EDT pO2 Art 97.7 mmHg 2020 06:05 EDT pO2 Art 97.2 mmHg 2020 01:55 EDT HCO3 Art 30.3 mmol/L (High) 2020 06:05 EDT HCO3 Art 30.7 mmol/L (High) 2020 01:55 EDT BE Art 7.2 mmol/L (High) 2020 06:05 EDT BE Art 7.4 mmol/L (High) 2020 01:55 EDT sO2 Art 98.4 % 2020 06:05 EDT sO2 Art 98.2 % 2020 01:55 EDT tHb Art 8.3 Gram/dL (Low) 2020 06:05 EDT tHb Art 8.8 Gram/dL (Low) 2020 01:55 EDT FHHb <2.4 % 2020 06:05 EDT FHHb <2.4 % 2020 01:55 EDT ctO2 11.4 mmol/L 2020 06:05 EDT ctO2 12.1 mmol/L 2020 01:55 EDT FIO2 Art 40 2020 06:05 EDT FIO2 Art 40 2020 01:55 EDT Delivery Device Type Art Ventilator 2020 06:05 EDT Delivery Device Type Art Ventilator 2020 01:55 EDT Temperature, F Art 98.6 Deg F 2020 06:05 EDT Temperature, F Art 98.6 Deg F 2020 01:55 EDT Art Blood Gas (ABG) Site Right Radial 2020 06:05 EDT Art Blood Gas (ABG) Site Left Radial 2020 01:55 EDT Acceptable Giancarlo's Test Art Acceptable 2020 06:05 EDT Acceptable Giancarlo's Test Art Acceptable 2020 01:55 EDT Ventilator Mode Art Assist Control Ventilation 2020 06:05 EDT Ventilator Mode Art AC 2020 01:55 EDT Tidal Volume Set Art 400.0 mL 2020 06:05 EDT Tidal Volume Set Art 400.0 mL 2020 01:55 EDT Set Rate Art 20.0 2020 06:05 EDT Set Rate Art 20.0 2020 01:55 EDT Respiratory Rate Art 20.0 2020 06:05 EDT Respiratory Rate Art 20.0 2020 01:55 EDT CPAP/PEEP Art 5.0 cmH2O 2020 06:05 EDT CPAP/PEEP Art 5.0 cmH2O 2020 01:55 EDT Comment Art supine 2020 06:05 EDT ABG Num of Draw Attempts 1 2020 06:05 EDT ABG Num of Draw Attempts 1 2020 01:55 EDT PaO2/FiO2 calculated 244 2020 06:05 EDT PaO2/FiO2 calculated 243 2020 01:55 EDT Sodium Level 138 mmol/L 2020 03:21 EDT Sodium Level 138 mmol/L 2020 01:32 EDT Potassium Level 3.0 mmol/L (Low) 2020 03:21 EDT Potassium Level 3.1 mmol/L (Low) 2020 01:32 EDT Chloride Level 102 mmol/L 2020 03:21 EDT Chloride Level 102 mmol/L 2020 01:32 EDT Carbon Dioxide Level 28 mmol/L 2020 03:21 EDT Carbon Dioxide Level 30 mmol/L 2020 01:32 EDT Anion Gap 11 2020 03:21 EDT Anion Gap 9 2020 01:32 EDT Glucose Level 105 mg/dL 2020 03:21 EDT Glucose Level 97 mg/dL 2020 01:32 EDT Blood Urea Nitrogen 14 mg/dL 2020 03:21 EDT Blood Urea Nitrogen 13 mg/dL 2020 01:32 EDT Creatinine Level 0.70 mg/dL 2020 03:21 EDT Creatinine Level 0.60 mg/dL 2020 01:32 EDT eGFR >60 mL/min/1.73m2 2020 03:21 EDT eGFR >60 mL/min/1.73m2 2020 01:32 EDT eGFR NonAfrican >60 mL/min/1.73m2 2020 03:21 EDT eGFR NonAfrican >60 mL/min/1.73m2 2020 01:32 EDT Bun/Creatinine 20.0 2020 03:21 EDT Bun/Creatinine 18.6 2020 01:32 EDT Calcium Level 8.3 mg/dL (Low) 2020 03:21 EDT Calcium Level 8.3 mg/dL (Low) 2020 01:32 EDT Protein Total 6.2 Gram/dL (Low) 2020 01:32 EDT Albumin Level 2.7 Gram/dL (Low) 2020 01:32 EDT Globulin 3.5 Gram/dL 2020 01:32 EDT A/G Ratio 0.8 (Low) 2020 01:32 EDT Bilirubin Total 0.6 mg/dL 2020 01:32 EDT Alk Phos 72 Units/Liter 2020 01:32 EDT AST 23 Units/Liter 2020 01:32 EDT ALT 46 Units/Liter 2020 01:32 EDT Magnesium Level 1.7 mg/dL 2020 03:21 EDT Magnesium Level 1.8 mg/dL 2020 01:32 EDT Ammonia Level 26.0 uMol/L 2020 03:21 EDT Ammonia Level 23.0 uMol/L 2020 01:32 EDT Phosphorus 3.5 mg/dL 2020 03:21 EDT Phosphorus 3.7 mg/dL 2020 02:00 EDT Lipase Level 81 Units/Liter 2020 01:32 EDT CRP 10.90 mg/dL (High) 2020 02:00 EDT Lactate Dehydrogenase 294 Units/Liter (High) 2020 02:00 EDT Lactic Acid Level 1.2 mmol/L 2020 03:21 EDT Lactic Acid Level 0.6 mmol/L 2020 01:32 EDT Calcium Ionized 1.07 mmol/L (Low) 2020 03:21 EDT Calcium Ionized 1.12 mmol/L 2020 01:32 EDT Troponin I Ultra 0.070 ng/mL (High) 2020 09:26 EDT Troponin I Ultra 0.165 ng/mL (High) 2020 01:32 EDT ProBNP 476 pg/mL (High) 2020 03:21 EDT ProBNP 454 pg/mL (High) 2020 01:32 EDT WBC 7.2 K/uL 2020 03:21 EDT WBC 6.3 K/uL 2020 02:00 EDT WBC 6.2 K/uL 2020 01:32 EDT RBC 3.37 Million/uL (Low) 2020 03:21 EDT RBC 3.37 Million/uL (Low) 2020 02:00 EDT RBC 3.38 Million/uL (Low) 2020 01:32 EDT Hgb 8.5 g/dL (Low) 2020 03:21 EDT Hgb 8.4 g/dL (Low) 2020 02:00 EDT Hgb 8.4 g/dL (Low) 2020 01:32 EDT Hct 27.4 % (Low) 2020 03:21 EDT Hct 27.3 % (Low) 2020 02:00 EDT Hct 27.2 % (Low) 2020 01:32 EDT MCV 81.3 fL 2020 03:21 EDT MCV 81.0 fL 2020 02:00 EDT MCV 80.5 fL 2020 01:32 EDT MCH 25.2 pg (Low) 2020 03:21 EDT MCH 24.9 pg (Low) 2020 02:00 EDT MCH 24.9 pg (Low) 2020 01:32 EDT MCHC 31.0 Gram/dL (Low) 2020 03:21 EDT MCHC 30.8 Gram/dL (Low) 2020 02:00 EDT MCHC 30.9 Gram/dL (Low) 2020 01:32 EDT Platelet Count 190 K/uL 2020 03:21 EDT Platelet Count 213 K/uL 2020 02:00 EDT Platelet Count 207 K/uL 2020 01:32 EDT MPV 10.4 fL 2020 03:21 EDT MPV 11.3 fL 2020 02:00 EDT MPV 10.2 fL 2020 01:32 EDT RDW 23.9 % (High) 2020 03:21 EDT RDW 23.8 % (High) 2020 02:00 EDT RDW 23.7 % (High) 2020 01:32 EDT Neutrophil Percent Man 83 % (High) 2020 03:21 EDT Neutrophil Percent Man 70 % (High) 2020 02:00 EDT ANC # 4 K/uL 2020 02:00 EDT Lymph Percent Man 17 % (Low) 2020 03:21 EDT Lymph Percent Man 28 % 2020 02:00 EDT ALYC # 2 K/uL 2020 02:00 EDT [place] Percent Man 0 % (Low) 2020 03:21 EDT [place] Percent Man 2 % (Low) 2020 02:00 EDT Eos Percent Man 0 % 2020 03:21 EDT Baso Percent Man 0 % 2020 03:21 EDT RBC Morphology Abnormal 2020 03:21 EDT RBC Morphology Abnormal 2020 02:00 EDT Anisocytosis 1+ (Abnormal) 2020 03:21 EDT Anisocytosis 1+ (Abnormal) 2020 02:00 EDT Hypochromia 1+ (Abnormal) 2020 03:21 EDT Hypochromia 1+ (Abnormal) 2020 02:[address] Estimate Adequate 2020 03[address] Estimate Adequate 2020 02:00 EDT Sed Rate Auto 51 mm/Hr (High) 2020 02:00 EDT Slide Review Add Diff 2020 02:00 EDT Slide Review No 2020 01:32 EDT PT 10.3 Second(s) 2020 01:32 EDT INR 1.0 2020 01:32 EDT Urine Type. U CleanCatch 2020 01:32 EDT Urine Color YELLOW2 2020 01:32 EDT Urine Appearance CLEAR2 2020 01:32 EDT Urine Specific [place] 1.013 2020 01:32 EDT Urine pH Dipstick 5.5 (Low) 2020 01:32 EDT Urine Leukocyte Esterase LARGE2 (Abnormal) 2020 01:32 EDT Urine Nitrite NEGATIVE2 2020 01:32 EDT Urine Protein Dipstick NEGATIVE2 2020 01:32 EDT Urine Glucose Dipstick NEGATIVE2 2020 01:32 EDT Urine Ketones Dipstick NEGATIVE2 2020 01:32 EDT Urine Urobilinogen Dipstick 1.0 2020 01:32 EDT Urine Bilirubin Dipstick NEGATIVE2 2020 01:32 EDT Urine Blood Dipstick LARGE2 (Abnormal) 2020 01:32 EDT Ur RBC 10-20 (Abnormal) 2020 01:32 EDT Ur WBC 10-20 (Abnormal) 2020 01:32 EDT Ur WBC Clumps Present (Abnormal) 2020 01:32 EDT Ur Bacteria 2+ (Abnormal) 2020 01:32 EDT Ur Mucous 1+ (Abnormal) 2020 01:32 EDT Ur Amorph 1+ (Abnormal) 2020 01:32 EDT Urine Culture if Indicated Culture Ordered 2020 01:32 EDT Procalcitonin <0.25 ng/mL 2020 03:21 EDT Procalcitonin <0.25 ng/mL 2020 01:32 EDT TSH 3.370 mcInt Units/mL 2020 02:39 EDT FT4 1.28 ng/dL 2020 02:39 EDT Ferritin Level 532.5 ng/mL (High) 2020 02:00 EDT Bordatella pertussis Not Detected 2020 01:32 EDT Chlamydia pneumoniae Not Detected2 2020 01:32 EDT Mycoplasma pneumoniae Not Detected 2020 01:32 EDT Bordatella parapertussis Not Detected 2020 01:32 EDT Adenovirus Not Detected 2020 01:32 EDT Coronavirus 229E Not Detected 2020 01:32 EDT Coronavirus HKU1 Not Detected 2020 01:32 EDT Coronavirus NL63 Not Detected 2020 01:32 EDT Coronavirus OC43 Not Detected 2020 01:32 EDT Human metapneumovirus Not Detected 2020 01:32 EDT Influenza A Not Detected 2020 01:32 EDT Influenza A H3 Not Detected 2020 01:32 EDT Influenza A 2009 H1N1 Not Detected 2020 01:32 EDT Influenza A H1 Not Detected 2020 01:32 EDT Influenza B Not Detected 2020 01:32 EDT Parainfluenza 1 Not Detected 2020 01:32 EDT Parainfluenza 2 Not Detected 2020 01:32 EDT Parainfluenza 3 Not Detected 2020 01:32 EDT Parainfluenza 4 Not Detected 2020 01:32 EDT Respiratory Syncytial Virus Not Detected 2020 01:32 EDT Rhinovirus/Enterovirus Not Detected 2020 01:32 EDT SARS-CoV-2 (COVID19 PCR) Not Detected 2020 01:32 EDT Electronically signed by Hossein [facility] Conversion [employer] Supervisor [employer]ner at 09/10/2022 12:47 AM CDT documented in this encounter Plan of Treatment Upcoming Encounters Date Type Department Care Team (Late st Contact Info) Description 05/14/2025 8:00 AM EST Lab Patient Walk-In [facility] - [place] [address] [place] [address] 05/14/2025 8:30 AM EST Appointment [facility] [address] [place] [address] Lu Bergman MD [address] [place] [address] [address] [place] [address] 05/14/2025 10:00 AM EST Appointment [facility] - [address] [place] [address] Lu Bergman MD [address] [place] [address] [address] [place] [address] 05/14/2025 2:15 PM EST Office Visit [facility] - [address] [place] [address] Lu eBrgman MD [address] [place] [address] [address] [place] [address] documented as of this encounter Visit Diagnoses Not on filedocumented in this encounter Care Teams Director Of Payroll Relationship Specialty Start Date End Date Jonas Navas MD [address] [facility] [address] [place] [address] PCP - General Cardiothoracic Surgery 04/15/22 07/23/22 Marcell Uriostegui MD [address] [facility] [address] [place] [address] PCP - General Adolescent Medicine 07/24/22 04/05/23 Heidi Rivers APRN [address] [place] [address] PCP - General Nurse Practitioner 04/06/23 Lu Bergman MD [address] [place] [address] [address] [place] [address] Hematology and Oncology 10/31/24 documented as of this encounter
--- OUTSIDE RECORDS SUMMARY | 2025-04-30 09:28 | XMS_ITS | Encounter Summary ---
Author Organization [employer] ([place], [place], [place], [place], [place]) Address [address] [place] [address] Care Team Providers Care Railroad Car Letterer Name Role Phone Jonas Navas MD Primary Care Provider [phone] Marcell Uriostegui MD Primary Care Provider + [phone] Heidi Rivers APRN Primary Care Provider + [phone] Neptali Bergman MD Unavailable [phone] Encounter Details Date Type Department Care Team (Late st Contact Info) Description 12/05/2020 Transcribed Document [facility] Pulm & Critical Care Medicine [address] [place] [address] [address] [place] [address] [place] [address] [address] [place] [id number] Social History Tobacco Use Types Packs/Day Years Used Date Smoking Tobacco: Never Assessed Comments Unknown Sex and Gender Information Value Date Recorded Sex Assigned at Not on file Legal Sex Female 1:09 PM CDT Gender Identity Not on file Sexual Orientation Not on file documented as of this encounter Miscellaneous Notes * Cerner Conversion Note - Princess Gaytan MD - 12/05/2020 11:09 AM EDT Patient: ALEJANDRINA YEH Age: 65 years Sex: Female : 1955 Associated Diagnoses: None Author: PRINCESS GAYTAN MD Basic Information Pulmonary/CCM Consultation Note Date of Admission: 2020 Date of Consultation: 2020 Referring Provider: Renata Sotelo DO Reason for Consultation: Vent Management CC: Unobtainable History of Present Illness: This is a 65-year-old female with a past medical history of 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 Patient is currently intubated, sedated, and [...] ALINA lobectomy COPD NIDDM GERD HLD HTN DC TIA CAD Past Surgical History ALINA lobectomy Cardiac catheterization Colonoscopy Tubal ligation Appendectomy Angioplasty Social History Tobacco: Former smoker Alcohol: Negative Drugs: Denies Family History Noncontributory PROGRESS NOTES 7/15: Patient is intubated, sedated with Precedex and fentanyl, and on mechanical ventilation. She is awake, alert, and follows all commands. RASS -1. Hemodynamically stable. Afebrile, no leukocytosis. Good UOP, about 500 cc overnight. Stable renal function. RN has no acute events overnight to report. Will await for SBT today. On Protonix for prophylaxis. ICU Day: 2 Vent Day: 5 (Intubated on 12/01 at OSH) Review of [...] 2 mL, 180 mL/Hr, IV Piggyback, 1-Time Phenergan: 6.25 mg, IntraVENous, Q6H, PRN: Nausea Protonix: 40 mg, IV Piggyback, BID Pulmicort Respules: 0.5 mg, Nebulized Inhalation, RT_BID SOLU-Medrol: 40 mg, IV Push, Q6H Sodium Chloride 0.9% intravenous solution: 250 mL, [...] 3.375 Gram, 33.33 mL/Hr, IV Piggyback, Q6HInt bevacizumab: 316 mL/Hr, IV Piggyback, 1-Time bevacizumab: [...] cloNIDine: 0.1 mg, Oral, Q4H, PRN: Hypertension dexmedeTOMIDine injection 400 mcg + NaCl 0.9% for drip 100 mL: Titrate, IntraVENous diphenhydrAMINE: 25 mg, IV Push, 1-Time diphenhydrAMINE: 25 mg, IV Push, 1-Time diphenhydrAMINE: 25 mg, IV Push, 1-Time diphenhydrAMINE: 25 mg, IV Push, 1-Time doxycycline + Sodium Chloride 0.9% intravenous solution 100 mL: 100 mg, 50 mL/Hr, IV Piggyback, [id number] fentaNYL injection 1,000 mcg + Premix Diluent NaCl 0.9% for Drip 100 mL: Titrate, IntraVENous granisetron: 1 mg, IV Push, 1-Time granisetron: 1 mg, IV Push, 1-Time granisetron: 1 mg, IV Push, 1-Time granisetron: 1 mg, IV Push, 1-Time heparin: 5,000 Units, SubCutaneous, Q8H hydrALAZINE: 10 mg, IV Push, Q3H, PRN: Hypertension insulin lispro 76 kg - 100 k kg - 100 kg scale, SubCutaneous, Q6H magnesium sulfate: 2 Gram, 50 mL, 25 mL/Hr, IV Piggyback, Daily, PRN: Other (See Comment) magnesium sulfate: 2 Gram, 50 mL, 25 mL/Hr, IV Piggyback, Q2H, PRN: Other (See Comment) morphine: 2 mg, IV Push, Q2H, PRN: Pain (Severe 7-10) potassium chloride 10 mEq/50 mL intravenous solution: 10 mEq, 50 mL, 50 mL/Hr, IV Piggyback, Q1H, PRN: Other (See Comment) potassium chloride 20 mEq oral tablet, extended release: 20 mEq, 1 Tab, Oral, Q2H, PRN: Other (See Comment) potassium chloride 20 mEq oral tablet, extended release: 60 mEq, 3 Tab, Oral, Q2H, PRN: Other (See Comment) sodium phosphate: 15 [...] Refill(s) fluticasone 50 mcg/inh nasal spray: 2 Somers, Nasal, Daily, PRN: Nasal Congestion, 0 Refill(s) [...] 0.9% 100 mL 100 mg, IV Piggyback, [id number] heparin 5,000 units/1 mL inj 5,000 Units [...] mL, IV Piggyback, Q6H Problem list: Medical CA - Lung cancer adenocarcinoma / SNOMED CT 6086589637 / Confirmed Claustrophobia / SNOMED CT 71923916 / Confirmed Diabetes mellitus type II / SNOMED CT 94682312 / Confirmed Diverticulosis / SNOMED CT 3319843705 / Confirmed Shortness of breath / SNOMED CT 588441731 / Confirmed GERD - Gastro-esophageal reflux disease / SNOMED CT 4304557585 / Confirmed Hiatal hernia / SNOMED CT 823160326 / Confirmed History of obstructive sleep apnea / IMO [id number] / Confirmed Inactive: Seasonal allergies / SNOMED CT 3188407723 Canceled: Chronic cough / SNOMED CT 118952858 Canceled: History of obstructive sleep apnea - no c-pap / IMO [id number] Canceled: History of obstructive sleep apnea / IMO [id number] Canceled: Current every day smoker / SNOMED CT 3986772159, Active Problems (18) Arthritis Back pain CA - Lung cancer adenocarcinoma 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 Claustrophobia Coronary artery disease s/p DC Diabetes mellitus type II Diverticulosis GERD - Gastro-esophageal reflux disease H/O: TIA Hiatal hernia High blood pressure History of obstructive sleep apnea Hyperlipidemia Migraine Shortness of breath Sinusitis Sleep apnea no c-pap Physical Examination VS/Measurements Vitals Signs (last 24 hrs) Last Charted Minimum Maximum Temp 97.7 (DEC 05 08:00) 97.7 (DEC 05 08:00) 99.4 (DEC 04 16:) Mon HR 87 (DEC 05 11:24) 50 (DEC 05 11:00) 88 (DEC 05:23) Resp Rate 19 (DEC 05:24) 16 (DEC 04 13:00) 19 (DEC 05:23) SBP 118 (DEC 05 11:00) 104 (DEC 04 21:) H 159 (DEC 04 18:) DBP 65 (DEC 05 11:00) L 54 (DEC 04:00) 77 (DEC 04 18:00) MAP 87 (DEC 05 11:00) 76 (DEC 04 21:00) 110 (DEC 04 18:00) SpO2 98 (DEC 05:24) L 92 (DEC 04 21:00) 98 (DEC 05 07:51) General: Intubated, sedated, on mechanical vent. Arouses to voice, follows commands. RASS -1.. Eye: Pupils are equal, round and reactive to light, Normal conjunctiva. HENT: Normocephalic. Neck: Supple, Non-tender. Respiratory: Respirations are non-labored, Breath sounds are equal, No wheezing. Decreased bibasilarly.. Cardiovascular: Normal rate, Regular rhythm, S1, S2, No edema. Gastrointestinal: Soft, Normal bowel sounds, Distended., Obese abdomen.. Musculoskeletal: No deformity, Unable to fully assess.. Integumentary: Warm, Dry. Neurologic: Positive gag, good cough. Arouses to voice, follows commands. RASS -1.. Psychiatric: Unable to assess.. Review / Management Results review: Labs (Last four charted values) WBC 5.9 (DEC 05) 7.2 (DEC 04) 6.3 (DEC 04) 6.2 (DEC 04) HB L 8.6 (DEC 05) L 8.5 (DEC 04) L 8.4 (DEC 04) L 8.4 (DEC 04) HCT L 27.2 (DEC 05) L 27.4 (DEC 04) L 27.3 (DEC 04) L 27.2 (DEC 04) Plt 166 (DEC 05) 190 (NOV 14) 213 (NOV 14) 207 (DEC 04) Na 139 (NOV 15) 136 (NOV 15) 138 (NOV 14) 138 (NOV 14) K 4.0 (NOV 15) 3.9 (NOV 15) 4.1 (DEC 04) L 3.0 (DEC 04) Cl 103 (NOV 15) 104 (NOV 15) 102 (NOV 14) 102 (NOV 14) CO2 28 (NOV 15) 27 (NOV 15) 28 (NOV 14) 30 (DEC 04) BUN 18 (DEC 05) 17 (DEC 05) 14 (DEC 04) 13 (DEC 04) Cr 0.80 (NOV 15) 0.80 (NOV 15) 0.70 (NOV 14) 0.60 (NOV 14) Glu R H 165 (DEC 05) H 166 (NOV 15) 105 (NOV 14) 97 (NOV 14) Ca 8.6 (DEC 05) 8.8 (NOV 15) L 8.3 (DEC 04) L 8.3 (DEC 04) Lactic 1.7 (NOV 15) 1.2 (NOV 14) 0.6 (DEC 04) PT 10.7 (DEC 05) 10.3 (DEC 04) INR 1.0 (DEC 05) 1.0 (DEC 04) AST 19 (DEC 05) 23 (DEC 04) ALT 38 (DEC 05) 46 (DEC 04) ALK P 75 (DEC 05) 72 (DEC 04) T Bili 0.8 (DEC 05) 0.6 (DEC 04) PTN 6.7 (DEC 05) L 6.2 (DEC 04) ALB L 2.5 (DEC 05) L 2.7 (DEC 04) Lipase 81 (DEC 04) Troponin H 0.070 (DEC 04) H 0.165 (DEC 04) . Blood Gases (Current Encounter/Past 24 Hours) pH Art 7.46 [place] 12/05/2020 06:22 pCO2 Art 39.2 12/05/2020 06:22 pO2 Art 129.0 [place] 12/05/2020 06:22 HCO3 Art 28.1 [place] 12/05/2020 06:22 BE Art 4.0 [place] 12/05/2020 06:22 sO2 Art 98.9 12/05/2020 06:22 tHb Art 8.8 LOW 12/05/2020 06:22 FHHb <2.4 NA 12/05/2020 06:22 ctO2 12.3 NA 12/05/2020 06:22 FIO2 Art 40 NA 12/05/2020 06:22 Delivery Device Type Art Ventilator 12/05/2020 06:12 Temperature, F Art 98.6 NA 12/05/2020 06:22 Art Blood Gas (ABG) Site Right Radial 12/05/2020 06:12 Acceptable Giancarlo's Test Art Acceptable 12/05/2020 06:12 Ventilator Mode Art Assist Control Ventilation 12/05/2020 06:12 Tidal Volume Set Art 400.0 NA 12/05/2020 06:12 Set Rate Art 16.0 NA 12/05/2020 06:12 Respiratory Rate Art 16.0 NA 12/05/2020 06:12 CPAP/PEEP Art 5.0 NA 12/05/2020 06:12 Comment Art supine NA 12/05/2020 06:12 ABG Num of Draw Attempts 1 NA 12/05/2020 06:12 PaO2/FiO2 calculated 322 NA 12/05/2020 06:22 Radiology Results (Last 48 hours) [id number] -- 2020 00:20 CR Chest 1 Vw Portable (2020 01:11) Result: PORTABLE CHEST 2020 1:05 AMHISTORY: Hypoxia.COMPARISON: 08/24/2019.FINDINGS: The heart is stable in size. There are surgical clips in theleft hilum. There is linear scarring in both lung bases. There is nopneumothorax. An endotracheal tube has been placed in the interim and isin good position with the tip 3 cm above the level of the leeann. IMPRESSION: Endotracheal tube in good position . PORTABLE CHEST 2020 4:54 AMHISTORY: Dyspnea.COMPARISON: 3 hours prior.FINDINGS: The heart is stable in size. There is linear scarring at theleft base. There is no pneumothorax. The support devices are in goodposition. IMPRESSION: Stable exam. Images reviewed, interpreted, and dictated by Dr. Lorenzo Buck.Transcribed by Robin Birmingham PA-C.I have personally viewed, interpreted and dictated the examination. Ihave read and agree with the above final transcribed report. CR Chest 1 Vw Portable (2020 05:02) Result: PORTABLE CHEST 2020 1:05 AMHISTORY: Hypoxia.COMPARISON: 08/24/2019.FINDINGS: The heart is stable in size. There are surgical clips in theleft hilum. There is linear scarring in both lung bases. There is nopneumothorax. An endotracheal tube has been placed in the interim and isin good position with the tip 3 cm above the level of the leeann. IMPRESSION: Endotracheal tube in good position . PORTABLE CHEST 2020 4:54 AMHISTORY: Dyspnea.COMPARISON: 3 hours prior.FINDINGS: The heart is stable in size. There is linear scarring at theleft base. There is no pneumothorax. The support devices are in goodposition. IMPRESSION: Stable exam. Images reviewed, interpreted, and dictated by Dr. Lorenzo Buck.Transcribed by Robin Birmingham PA-C.I have personally viewed, interpreted and dictated the examination. Ihave read and agree with the above final transcribed report. CR Chest 1 Vw Portable (12/05/2020 04:51) Result: PORTABLE CHEST HISTORY: Pneumonia.COMPARISON: PCXR from the previous day.FINDINGS: The heart is mildly enlarged. There are left hilar surgicalclips. There is scarring at the left lung base. There is nopneumothorax. The support devices are in good position. IMPRESSION: There has been no significant interval change. Images reviewed, interpreted, and dictated by Dr. Lorenzo Buck.Transcribed by Robin Birmingham PA-C.I have personally viewed, interpreted and dictated the examination. Bhavnacarito read and agree with the above final transcribed report. Impression and Plan Pulmonary Ogbfp-wf-bftccyq hypercapnic respiratory failure Intubated at OSH on 12/01 COPD, acute exacerbation Ventilator management encounter Smoking history No known chronic lung diseases No PFTs for review Cardiovascular CAD History of DC HTN ID Possible PNA? Negative procalcitonin, no leukocytosis GI GERD Neuro Altered mental status History of TIA Renal Electrolyte disturbances Hypokalemia Endocrine Glycemic control Hematology/Oncology Lung adenocarcinoma with brain and abdominal metastases s/p ALINA lobectomy, chemotherapy (last treatment 11/28) PLAN: -Plan for SBT today. -Vent bundle. Wean FiO2, for goal saturation >89%. -Sedation: On Precedex, Fentanyl. Titrate to RASS goal -1. -Ventilator settings: 20 VR, 400 TV, 5.0 PEEP, FiO2 40%. -Daily SBTs/SATs, as able. -Daily ABG. -DuoNebs Q6hH -Pulmicort nebs BID -IV solumedrol 40mg Q6H -Encourage IS/FVD, when extubated. -Hemodynamics: Stable. -Echocardiogram noted. See above. -ID: Current antibiotics: Zosyn, Doxy Blood cultures: NGTD. Sputum cultures: NGTD.. Pneumonia PCR panel: Negative. Trend procalcitonin, CBC w/diff -Monitor hydration status. -Evaluate daily for diuresis. -Trend SCr/BUN. -Consult Speech for Swallow evaluation, once extubated. -Glycemic control: SSIq6 -Nutrition: NPO. If unable to extubate, may consider starting TF after dietary consult. -GI prophylaxis: Pepcid QD -VTE prophylaxis: Heparin SQ Q8 CXR AM labs ordered. FULL CODE Prognosis: Guarded. Disposition: ICU ADDENDUM: 1400 hours Patient was placed on spontaneous breathing trial after sedation vacation and observe for 1 hour on pressure support with settings of 8/5 and FiO2 of 40%. ABG obtained on spontaneous breathing trial is appropriate. Patient is tolerating well with good blood pressure and heart rate and mental status redman she is following commands. Blood Gases (Current Encounter/Past 24 Hours) pH Art 7.39 12/05/2020 13:41 pCO2 Art 45.0 12/05/2020 13:41 pO2 Art 86.7 12/05/2020 13:41 HCO3 Art 27.0 HI 12/05/2020 13:41 BE Art 1.6 12/05/2020 13:41 sO2 Art 95.6 12/05/2020 13:41 tHb Art 9.2 LOW 12/05/2020 13:41 FHHb 4.3 NA 12/05/2020 13:41 ctO2 12.3 NA 12/05/2020 13:41 FIO2 Art 40 NA 12/05/2020 13:41 Delivery Device Type Art Ventilator 12/05/2020 13:36 Temperature, F Art 98.6 NA 12/05/2020 13:41 Art Blood Gas (ABG) Site Right Radial 12/05/2020 13:36 Acceptable Giancarlo's Test Art Acceptable 12/05/2020 13:36 Ventilator Mode Art Spontaneous 12/05/2020 13:36 Tidal Volume Set Art 400.0 NA 12/05/2020 06:12 Set Rate Art 16.0 NA 12/05/2020 06:12 Respiratory Rate Art 16.0 NA 12/05/2020 13:36 CPAP/PEEP Art 5.0 NA 12/05/2020 13:36 Pressure Support Art 8.0 NA 12/05/2020 13:36 Comment Art supine NA 12/05/2020 13:36 ABG Num of Draw Attempts 1 NA 12/05/2020 13:36 PaO2/FiO2 calculated 217 NA 12/05/2020 13:41 Proceeded with extubation and placed on supplemental oxygen by nasal cannula at 4 L/min. Post extubation I evaluated the patient again and she was back to her baseline mental status. Reported some throat pain and hoarseness of voice. Likely resulting from endotracheal tube. We will obtain speech and swallow evaluation tomorrow before clearing her poor oral diet. Okay with ice chips today. Dr. Bergman, oncologist for the patient was informed about CT scan findings and his good review and decide about next course of action. Discussed with patient's at bedside about the [...] is getting her chemotherapy as mentioned above. I saw and examined the patient at bedside, obtained medical history, reviewed labs, diagnostics and chest imaging data. I personally and independently visualized and interpreted chest imaging data on PACS. I formulated diagnosis and treatment plans. I made all medical decisions as above. Complex case and critically ill. Need high level of decision making. Cumulative Critical care time spent on the patient excluding procedures - 76 min. documented in this encounter Plan of Treatment Upcoming Encounters Date Type Department Care Team (Late st Contact Info) Description 05/14/2025 8:00 AM EST Lab Patient Walk-In [facility] - [place] [address] [place] [id number] 05/14/2025 8:30 AM EST Appointment [facility] CT - [facility] [address] [place] [address] Neptali Bergman MD [address] [place] [address] [address] [place] [address] 05/14/2025 10:00 AM EST Appointment [facility] MRI - [facility] [address] [place] [address] Neptali Bergman MD [address] [place] [address] 05/14/2025 2:15 PM EST Office Visit [facility] - [facility] [address] [place] [address] [address] [place] [address] Neptali Bergman MD [address] [facility] [address] [place] [address] documented as of this encounter Visit Diagnoses Not on filedocumented in this encounter Care Teams Railroad Car Letterer Relationship Specialty Start Date End Date Jonas Navas MD [address] [facility] [address] [place] [address] PCP - General Cardiothoracic Surgery 04/15/22 07/23/22 Marcell Uriostegui MD [address] [place] [address] PCP - General Adolescent Medicine 07/24/22 04/05/23 Heidi Rivers, BUSINESS ANALYST PROJECT MANAGER [address] [place] [address] PCP - General Nurse Practitioner 04/06/23 Neptali Bergman MD [address] [facility] [address] [place] [address] Hematology and Oncology 10/31/24 documented as of this encounter
--- OUTSIDE RECORDS SUMMARY | 2025-04-30 09:28 | XMS_ITS | Encounter Summary ---
Author Organization [employer] ([place], [place], [place], [place], [place]) Address [address] [place] [address] Care Team Providers Care Rig Superintendent Name Role Phone Jonas Navas MD Primary Care Provider [phone] Marcell Uriostegui MD Primary Care Provider + [phone] Heidi Rivers APRN Primary Care Provider [phone] Neptali Bergman MD Unavailable [phone] Encounter Details Date Type Department Care Team (Late st Contact Info) Description 2020 Transcribed Document [facility] Family [facility] [place] [address] ProviderJennifer MD [address] [place] [address] Social History Tobacco Use Types Packs/Day Years Used Date Smoking Tobacco: Never Assessed Comments Unknown Sex and Gender Information Value Date Recorded Sex Assigned at Not on file Legal Sex Female 1:09 PM CDT Gender Identity Not on file Sexual Orientation Not on file documented as of this encounter Miscellaneous Notes * Cerner Conversion Note - Jennifer ProviderMD - 2020 11:20 AM CDT UM Authorization Entered On: 2020 11:21 EDT Performed On: 2020 11:20 EDT by CICI DIAZ RN Primary Insurance Authorization Authorization and Policy Numbers : Insurance 1 Health Plan: [employer] Policy Number: [id number] Authorization Number: Insurance Primary Name : ANTH HMOPPO Policy Number: [id number] Authorization Status-Primary : Awaiting callback Reference Number-Primary : Insurance inactive Authorized Service Begin Date-Primary : 12/03/2020 EDT Authorization Comments-Primary : Insurance inactive per Availity, em to [place] to verify Historical Authorization Comments-Primary : No Authorization Comments Found CICI DIAZ RN - 2020 11:20 EDT Electronically signed by [facility] Conversion Warehouse Shipping Associate Cerner at 09/10/2022 12:48 AM CDT documented in this encounter Plan of Treatment Upcoming Encounters Date Type Department Care Team (Late st Contact Info) Description 05/14/2025 8:00 AM EST Lab Patient Walk-In [facility] - [place] [address] [place] [address] 05/14/2025 8:30 AM EST Appointment [facility] CT - [facility] [address] [facility] [facility] [address] [place] [address] Neptali Bergman MD [address] [place] [address] [address] [place] [address] 05/14/2025 10:00 AM EST Appointment [facility] MRI - [facility] [address] [facility] [address] [place] [address] Neptali Bergman MD [address] [place] [address] [address] [place] [address] 05/14/2025 2:15 PM EST Office Visit [facility] - [place] [address] [place] [address] Neptali Bergman MD [address] [place] [address] [address] [place] [address] documented as of this encounter Visit Diagnoses Not on filedocumented in this encounter Care Teams Rig Superintendent Relationship Specialty Start Date End Date Jonas Navas MD [address] [facility] [address] [place] [id number] PCP - General Cardiothoracic Surgery 04/15/22 07/23/22 Marcell Uriostegui MD [address] [facility] [address] [place] [address] PCP - General Adolescent Medicine 07/24/22 04/05/23 Heidi Rivers APRN [address] [facility] [address] [place] [address] PCP - General Nurse Practitioner 04/06/23 Neptali Bergman MD [address] [facility] [address] [place] [address] Hematology and Oncology 10/31/24 documented as of this encounter
--- OUTSIDE RECORDS SUMMARY | 2025-04-30 09:28 | XMS_ITS | Encounter Summary ---
Author Organization [employer] ([place], [place], [place], [place], [place]) Address [address] [place] [address] Care Team Providers Care Family Psychologist Name Role Phone Jonas Navas MD Primary Care Provider [phone] Marcell Uriostegui MD Primary Care Provider + [phone] Heidi Rivers APRN Primary Care Provider + [phone] Neptali Bergman MD Unavailable [phone] Encounter Details Date Type Department Care Team (Late st Contact Info) Description 07/27/2019 Transcribed Document [facility] [place] [facility] [place] [address] ProviderJennifer MD [address] [place] [address] Social History Tobacco Use Types Packs/Day Years Used Date Smoking Tobacco: Never Assessed Comments Unknown Sex and Gender Information Value Date Recorded Sex Assigned at Not on file Legal Sex Female 1:09 PM CDT Gender Identity Not on file Sexual Orientation Not on file documented as of this encounter Miscellaneous Notes * Cerner Conversion Note - Jennifer ProviderMD - 07/27/2019 1:01 PM [facility] Pain Assessment Entered On: 07/31/2019 7:06 EDT Performed On: 07/30/2019 22:45 EDT by Janis Pickens RN Intervention Information: acetaminophen-oxyCODONE Performed by Janis Pickens RN on 07/30/2019 21:45:00 EDT acetaminophen-oxyCODONE,2Tab Oral,Pain (Severe 7-10) Pain Assessment Pain Assessment : Follow-up assessment Pain Scale Goal : 3 Pain Scale Used : 0-10 Scale Janis Pickens RN - 07/31/2019 7:06 EDT Pain Scale Intensity : 0 Celio JanisASHLEY - 07/31/2019 7:06 EDT Image 4 - Images currently included in the form version of this document have not been included in the text rendition version of the form. documented in this encounter Plan of Treatment Upcoming Encounters Date Type Department Care Team (Late st Contact Info) Description 05/14/2025 8:00 AM EST Lab Patient Walk-[facility] - [place] [address] [place] [address] 05/14/2025 8:30 AM EST Appointment [facility] [address] [facility] [address] [place] [address] [place] [address] [place] [address] [address] [place] [address] 05/14/2025 10:00 AM EST Appointment [facility] MRI - [facility] [address] [facility] [address] [place] [address] Neptali Bergman MD [address] [place] [address] [address] [place] [address] 05/14/2025 2:15 PM EST Office Visit [facility] - [place] [address] [place] [address] [place] [address] [place] [address] [address] [place] [address] documented as of this encounter Visit Diagnoses Not on filedocumented in this encounter Care Teams Family Psychologist Relationship Specialty Start Date End Date Jonas Navas MD [address] [facility] [address] [place] [address] PCP - General Cardiothoracic Surgery 04/15/22 07/23/22 Marcell Uriostegui MD [address] [facility] [address] [place] [address] PCP - General Adolescent Medicine 07/24/22 04/05/23 eHidi Rivers APRN [address] [facility] [address] [place] [address] PCP - General Nurse Practitioner 04/06/23 Neptali Bergman MD [address] [facility] [address] [place] [address] Hematology and Oncology 10/31/24 documented as of this encounter
--- OUTSIDE RECORDS SUMMARY | 2025-04-30 09:28 | XMS_ITS | Encounter Summary ---
Author Organization [employer] ([place], [place], [place], [place], [place]) Address [address] [place] [address] Care Team Providers Care Land Title Examiner Name Role Phone Jonas Navas MD Primary Care Provider [phone] Marcell Uriostegui MD Primary Care Provider + [phone] Heidi Rivers APRN Primary Care Provider + [phone] Neptali Bergman MD Unavailable [phone] Encounter Details Date Type Department Care Team (Late st Contact Info) Description 2020 Transcribed Document [facility] [place] [address] [place] [address] ProviderJennifer MD [address] [place] [address] Social History Tobacco Use Types Packs/Day Years Used Date Smoking Tobacco: Never Assessed Comments Unknown Sex and Gender Information Value Date Recorded Sex Assigned at Not on file Legal Sex Female 1:09 PM CDT Gender Identity Not on file Sexual Orientation Not on file documented as of this encounter Miscellaneous Notes * Cerner Conversion Note - Jennifer ProviderMD - 2020 2:43 AM CDT DATE OF ADMISSION: 2020 ADMITTING PHYSICIAN: HAJA YUAN DO PRIMARY CARE PHYSICIAN: Not listed. CHIEF COMPLAINT: Respiratory failure. HISTORY OF PRESENT ILLNESS: This is a 65-year-old female with history of lung cancer, multiple medical problems, hypertension, hyperlipidemia, history of coronary artery disease. The patient with lung adenocarcinoma with metastasis, [facility]. The patient was intubated on vent. Then, the patient transferred to [facility] for evaluation. The patient was brought in by ambulance. Blood work done when she came in shows hypokalemia with slightly elevated troponin and anemia. The patient on vent, sedated. No family at bedside. SYSTEMIC REVIEW: Unobtainable. The patient is sedated on vent. No family at bedside. PAST MEDICAL HISTORY: 1. History of lung cancer with metastasis. 2. Arthritis. 3. Chronic back pain. 4. COPD. 5. Diabetes mellitus type 2. 6. GERD. 7. History of TIA. 8. Hypertension. 9. Hyperlipidemia. 10. Migraine headache. 11. Obstructive sleep apnea. PAST SURGICAL HISTORY: 1. Laparoscopy. 2. Adrenal gland removal. 3. Appendectomy. 4. History of heart catheterization. 5. Colonoscopy. 6. Lung biopsy. SOCIAL HISTORY: The patient with history of tobacco use, quit; drinks alcohol occasionally. No drug abuse. FAMILY HISTORY: Unobtainable because of the patient's condition. ALLERGIES: Diltiazem, Levaquin. HOME MEDICATIONS: 1. Chataignier as needed. 2. Albuterol as needed. 3. Xanax 0.25 mg as needed. 4. Aspirin 325 mg daily. 5. Lipitor 40 mg daily. 6. Cyclobenzaprine 10 mg as needed. 7. Flonase daily. 8. Advair 250/50 twice daily. 9. Hydrochlorothiazide/lisinopril 25/20 once daily. 10. Prilosec 20 mg daily. PHYSICAL EXAMINATION: VITAL SIGNS: Blood pressure 168/70, heart rate 78, respiratory rate 20. HEENT: Head atraumatic, normocephalic. Pupils are round and reactive. Eyes, no conjunctival injection or discharge. Ears, no discharge. Nose, no bleeding or discharge. Mouth dry. NECK: Supple. Full range of motion. CHEST: The patient on vent. Mild expiratory wheeze. No respiratory muscle retraction. HEART: S1 and S2 heard. Regular rate and rhythm. ABDOMEN: Soft, obese. Audible bowel sounds. No tenderness. No guarding. No rebound tenderness. EXTREMITIES: No edema, erythema, or tenderness. NEUROLOGIC: The patient is sedated on vent. PSYCHIATRIC: The patient on vent. SKIN: No apparent rashes or induration. ENDOCRINE: No thyromegaly or tenderness. GI: The patient lying in bed, not in distress. No family at bedside. LABORATORY DATA AND STUDIES: ABG; pH 7.52, CO2 of 37.2, O2 of 97.2, bicarb 38.7. Sodium 138, potassium 3.1, chloride 102, CO2 of 30, glucose 97, BUN 13, creatinine 0.6, , protein 6.2, albumin 2.7, globulin 3.5, bilirubin 0.6, alkaline phosphatase 72, AST 23, ALT 46, magnesium 1.8, ammonia level 23, lipase 81, . Troponin 0.165. BNP 454. White blood cells 6.2, hemoglobin 8.4, hematocrit 27.2, platelets 207. ASSESSMENT AND PLAN: 1. Acute respiratory failure. The patient intubated on [...] prophylaxis, Protonix. 8. Deep venous prophylaxis, compression boot. Plan discussed with the RN at bedside, chart was reviewed. Critical time spent, 55 minutes. /[id number] MD ARACELY Flaherty/LOUANN / ARACELY / MODL documented in this encounter Plan of Treatment Upcoming Encounters Date Type Department Care Team (Late st Contact Info) Description 05/14/2025 8:00 AM EST Lab Patient Walk-In [facility] - [place] [address] [place] [address] 05/14/2025 8:30 AM EST Appointment [facility] Imaging [facility] [address] [place] [address] Neptali Bergman MD [address] [facility] [address] [place] [address] 05/14/2025 10:00 AM EST Appointment [facility] - [address] [place] [address] Neptali Bergman MD [address] [place] [address] [address] [place] [address] 05/14/2025 2:15 PM EST Office Visit [facility] - [place] [address] [place] [address] Neptali Bergman MD [address] [place] [address] [address] [place] [address] documented as of this encounter Visit Diagnoses Not on filedocumented in this encounter Care Teams Land Title Examiner Relationship Specialty Start Date End Date Jonas Navas MD [address] [facility] [address] [place], [place] [id number] PCP - General Cardiothoracic Surgery 04/15/22 07/23/22 Marcell Uriostegui MD [address] [place] [address] [place] [address] PCP - General Adolescent Medicine 07/24/22 04/05/23 eHidi Rivers, ROMERO [address] [facility] [address] [place] [address] PCP - General Nurse Practitioner 04/06/23 Neptali Bergman MD [address] [address] Hematology and Oncology 10/31/24 documented as of this encounter
--- OUTSIDE RECORDS SUMMARY | 2025-04-30 09:28 | XMS_ITS | Encounter Summary ---
Author Organization [employer] ([place], [place], [place], [place], [place]) Address [address] [place] [address] Care Team Providers Care Junior Paralegal Name Role Phone Jonas Navas MD Primary Care Provider [phone] Marcell Uriostegui MD Primary Care Provider + [phone] Heidi Rivers APRN Primary Care Provider + [phone] Neptali Bergman MD Unavailable [phone] Encounter Details Date Type Department Care Team (Late st Contact Info) Description 07/26/2019 Transcribed Document [facility] [place] [facility] [place] [address] ProviderJennifer MD [address] [place] [address] Social History Tobacco Use Types Packs/Day Years Used Date Smoking Tobacco: Never Assessed Comments Unknown Sex and Gender Information Value Date Recorded Sex Assigned at Not on file Legal Sex Female 1:09 PM CDT Gender Identity Not on file Sexual Orientation Not on file documented as of this encounter Miscellaneous Notes * Cerner Conversion Note - Jennifer ProviderMD - 07/26/2019 11:26 AM FAN RUNNER Patient: ALEJANDRINA YEH Age: 63 years Sex: Female : 1955 Associated Diagnoses: None Author: ALINA DOMINGUEZ MD-ANS Labs: Labs (Last four charted values) WBC H 18.6 (JUL 25) H 14.0 (JUL 24) H 11.5 (JUL 20) HB L 10.6 (JUL 25) L 10.9 (JUL 24) 13.3 (JUL 20) HCT 34.8 (JUL 25) L 33.7 (JUL 24) 41.2 (JUL 20) Plt 240 (JUL 25) 260 (JUL 24) 297 (JUL 20) Na 136 (JUL 25) 140 (JUL 24) L 134 (JUL 20) K 4.6 (JUL 25) 4.0 (JUL 24) 3.6 (JUL 20) Cl 104 (JUL 25) 108 (JUL 24) L 100 (JUL 20) CO2 31 (JUL 25) 28 (JUL 24) 30 (JUL 20) BUN 17 (JUL 25) 19 (JUL 24) 21 (JUL 20) Cr 0.70 (JUL 25) 0.80 (JUL 24) 0.70 (JUL 20) Glu R H 121 (JUL 25) H 143 (JUL 24) 79 (JUL 20) Ca L 8.3 (JUL 25) L 8.3 (JUL 24) 9.5 (JUL 20) PT 10.3 (JUL 20) INR 1.0 (JUL 20) PTT 27.2 (JUL 20) AST 9 (JUL 24) 10 (JUL 20) ALT 15 (JUL 24) 19 (JUL 20) ALK P 88 (JUL 24) 106 (JUL 20) T Bili 0.6 (JUL 24) 0.6 (JUL 20) PTN 6.9 (JUL 24) H 8.4 (JUL 20) ALB 3.5 (JUL 24) 3.9 (JUL 20) Medications: Medications () Active Scheduled: (11) #NaCl 0.9% *FLUSH* inj 10 mL 10 mL, IV Push, Q8H Advair 250/50 1 Puff, Inhalation, BID aspirin 325 mg tab 325 mg 1 Tab, Oral, Daily atorvastatin 40 mg tab 40 mg 1 Tab, Oral, At Bedtime docusate sodium 100 mg cap 100 mg 1 Cap, Oral, BID hydrochlorothiazide 25 mg tab 25 mg 1 Tab, Oral, Daily insulin lispro 1 unit/0.01 mL inj Scale B:, SubCutaneous, AC and at Bedtime lisinopril 20 mg tab 20 mg 1 Tab, Oral, Daily metFORMIN 500 mg tab 500 mg 1 Tab, Oral, At Bedtime nicotine 21 mg/24 hr patch 1 Patch, TransDermal, Daily pantoprazole EC 40 mg tab 40 mg 1 Tab, Oral, Daily Continuous: (2) bupivacaine 0.75% 8.3 mL + morphine *PF* 10 mg + NaCl 0.9% 81.7 mL 81.7 mL, Epidural, 8 mL/Hr naloxone 2 mg + lactated ringers 250 mL 250 mL, IntraVENous, 25 mL/Hr PRN: (15) #NaCl 0.9% *FLUSH* inj 10 mL 10 mL, IV Push, See Comment acetaminophen/HYDROcodone 325/10 mg tab 1 Tab, Oral, Q4H al hydrox/mag hydrox/simeth 30 mL liq 30 mL, Oral, AC and at Bedtime albuterol 90 mcg/1 puff inh 6.7 g 2 Puff, Inhalation, Q6H bisacodyl 10 mg supp 10 mg 1 Supp, Rectal, 1-Time bisacodyl EC 5 mg tab 5 mg 1 Tab, Oral, Daily diphenhydrAMINE 50 mg/1 mL inj 12.5 mg 0.25 mL, IV Push, Q6H fluticasone 0.05% nasal spray 2 [place], Nasal, Daily magnesium hydroxide 8% liq 30 mL 30 mL, Oral, Daily metoclopramide 10 mg/2 mL inj 10 mg 2 mL, IV Push, Q4H naloxone 0.4 mg/1 mL inj 0.2 mg 0.5 mL, IV Push, Q4H ondansetron 4 mg/2 mL inj 4 mg 2 mL, IV Push, Q4H oxyCODONE 5 mg tab 5 mg 1 Tab, Oral, Q4H promethazine 25 mg tab 12.5 mg 0.5 Tab, Oral, Q6H zolpidem 5 mg tab 5 mg 1 Tab, Oral, At Bedtime Vitals: Vitals Signs (last 24 hrs) Last Charted Minimum Maximum Temp 98.7 (JUL 25 08:00) 97.2 (JUL 24 13:00) 98 (JUL 24 16:00) Mon HR 66 (JUL 25 09:15) 51 (JUL 24 16:30) 79 (JUL 24 12:50) Resp Rate H 27 (JUL 25 09:15) 14 (JUL 24 19:00) H 43 (JUL 24 23:00) SBP 94 (JUL 25 09:15) L 88 (JUL 24 20:00) H 150 (JUL 24 16:45) DBP L 55 (JUL 25 09:15) L 46 (JUL 24 18:30) 66 (JUL 24 18:00) MAP 69 (JUL 25 09:15) 45 (JUL 24 18:15) 113 (JUL 24 17:45) SpO2 97 (JUL 25 09:15) L 86 (JUL 25 00:00) 100 (JUL 24 11:50) Afebrile, WBC increasing, will follow closely. Pain Scale:(1-10)/10:_4-5 Pruritis:_yes--initially, resolved with benadryl Nausea:_no Weakness:_no Plan:_Patient POD1 with CT in place, Epidural not covering superior aspect of chest. Discussed with RN to give 4mL clinician bolus and increase rate by 2mL/hr. WBCs are climbing, will watch for fever. May need to d/c epidural if she spikes a fever. Electronically signed by Kolby Catalan Conversion Process Engineering Technician Cerner at 09/10/2022 12:45 AM CDT documented in this encounter Plan of Treatment Upcoming Encounters Date Type Department Care Team (Late st Contact Info) Description 05/14/2025 8:00 AM EST Lab Patient [facility] [place] [facility] [address] [facility] [address] [place] [address] 05/14/2025 8:30 AM EST Appointment [facility] CT - [facility] [address] [facility] [address] [place] [address] Neptali Bergman MD [address] [place] [address] [address] [place] [address] 05/14/2025 10:00 AM EST [facility]ointment [facility] MRI - [facility] [address] [facility] [address] [place] [address] Neptali Bergman MD [address] [place] [address] [address] [place] [address] 05/14/2025 2:15 PM EST Office Visit [facility] - [address] [place] [address] Neptali Bergman MD [address] [facility] [address] [place] [address] documented as of this encounter Visit Diagnoses Not on filedocumented in this encounter Care Teams Junior Paralegal Relationship Specialty Start Date End Date Jonas Navas MD [address] [facility] [address] [place], [place] [id number] PCP - General Cardiothoracic Surgery 04/15/22 07/23/22 Marcell Uriostegui MD [address] [facility] [address] [place] [address] PCP - General Adolescent Medicine 07/24/22 04/05/23 Heidi Rivers, FERRYBOAT TICKET TAKER [address] [facility] [address] [place] [address] PCP - General Nurse Practitioner 04/06/23 Neptali Bergman MD [address] [facility] [address] [place] [address] Hematology and Oncology 10/31/24 documented as of this encounter
--- OUTSIDE RECORDS SUMMARY | 2025-04-30 09:29 | XMS_ITS | Encounter Summary ---
Author Organization [employer] ([place], [place], [place], [place], [place]) Address [address] [place] [address] Care Team Providers Care Youth Agent Name Role Phone Jonas Navas MD Primary Care Provider [phone] Marcell Uriostegui MD Primary Care Provider + [phone] Heidi Rivers APRN Primary Care Provider + [phone] Neptali Bergman MD Unavailable [phone] Encounter Details Date Type Department Care Team (Late st Contact Info) Description 07/28/2019 Transcribed Document [facility] [place] [facility] [place] [address] ProviderJennifer MD [address] [place] [address] Social History Tobacco Use Types Packs/Day Years Used Date Smoking Tobacco: Never Assessed Comments Unknown Sex and Gender Information Value Date Recorded Sex Assigned at Not on file Legal Sex Female 1:09 PM CDT Gender Identity Not on file Sexual Orientation Not on file documented as of this encounter Miscellaneous Notes * [employer]ner Conversion Note - Jennifer ProviderMD - 07/28/2019 5:00 PM CARD CLOTHIER Chart Check - Review Order Profile Entered On: 07/28/2019 17:33 EST Performed On: 07/28/2019 17:00 EST by CHERI MUNIZ, RN Chart Check Powerplans Initiated/Discontinued as Appropriate : Yes All Active Orders Reviewed : Yes CHERI MUNIZ RN - 07/28/2019 17:33 EST Electronically signed by Hossein [facility] Conversion Bar Examiner Cerner at 09/10/2022 12:34 AM CDT documented in this encounter Plan of Treatment Upcoming Encounters Date Type Department Care Team (Late st Contact Info) Description 05/14/2025 8:00 AM EST Lab Patient Walk-In [facility] - [address] [place] [address] 05/14/2025 8:30 AM EST Appointment [facility] Imaging CT - [address] [place] [address] Neptali Bergman MD [address] [place] [address] [place] [address] 05/14/2025 10:00 AM EST Appointment [facility] MRI - [address] [place] [address] Neptali Bergman MD [address] [place] [address] [place] [address] 05/14/2025 2:15 PM EST Office Visit [facility] - [place] [place] [address] Neptali Bergman MD [facility] [address] [place] [address] [place] [address] documented as of this encounter Visit Diagnoses Not on filedocumented in this encounter Care Teams Youth Agent Relationship Specialty Start Date End Date Jonas Navas MD [address] [facility] [address] [place] [address] PCP - General Cardiothoracic Surgery 04/15/22 07/23/22 Marcell Uriostegui MD [address] [place] [address] [place] [address] PCP - General Adolescent Medicine 07/24/22 04/05/23 Heidi Rivers JEWEL HOLE FINISH OPENER [address] [facility] [address] [place] [address] PCP - General Nurse Practitioner 04/06/23 Neptali Bergman MD [address] [facility] [address] [place] [address] Hematology and Oncology 10/31/24 documented as of this encounter
--- OUTSIDE RECORDS SUMMARY | 2025-04-30 09:29 | XMS_ITS | Encounter Summary ---
Author Organization [employer] ([place], [place], [place], [place], [place]) Address [address] [place] [address] Care Team Providers Care Retail Account Representative Name Role Phone Jonas Navas MD Primary Care Provider [phone] Marcell Uriostegui MD Primary Care Provider + [phone] Heidi Rivers APRN Primary Care Provider + [phone] Lu Bergman MD Unavailable Encounter Details Date Type Department Care Team (Late st Contact Info) Description 07/27/2019 Transcribed Document [facility] [place] [address] [place] [address] ProviderJennifer MD [address] [place] [address] Social History Tobacco Use Types Packs/Day Years Used Date Smoking Tobacco: Never Assessed Comments Unknown Sex and Gender Information Value Date Recorded Sex Assigned at Not on file Legal Sex Female 1:09 PM CDT Gender Identity Not on file Sexual Orientation Not on file documented as of this encounter Miscellaneous Notes * [employer]ner Conversion Note - Historical ProviderMD - 07/27/2019 11:55 AM FRACTIONATION SUPERVISOR Spiritual Care Short Form Entered On: 07/27/2019 13:09 EST Performed On: 07/27/2019 11:55 EST by LU GARNER General Information, Spiritual Care Spiritual Care Referred by : Family Reason for Visit : Referral/Consult Ministry Provided to : Patient, Family/Significant other Intervention/Comment/Summary Points : Provided supportive presence to patient and guest tray voucher for . LU GARNER - 07/27/2019 13:08 EST Electronically signed by Hossein, [facility] Conversion Recorder Of Deeds Cerner at 09/10/2022 12:49 AM CDT documented in this encounter Plan of Treatment Upcoming Encounters Date Type Department Care Team (Late st Contact Info) Description 05/14/2025 8:00 AM EST Lab Patient Walk-In [facility] - [place] [place] [address] 05/14/2025 8:30 AM EST Appointment [facility] CT [address] [place] [address] Lu Bermgan MD [address] [facility] [address] [place] [address] 05/14/2025 10:00 AM EST Appointment [facility] MRI - [address] [place] [address] Lu Bergman MD [address] [place] [address] [place] [address] 05/14/2025 2:15 PM EST Office Visit [facility] - [place] [address] [place] [address] Lu Bergman MD [address] [place] [address] [address] [place] [address] documented as of this encounter Visit Diagnoses Not on filedocumented in this encounter Care Teams Retail Account Representative Relationship Specialty Start Date End Date Jonas Navas MD [address] [facility] [address] [place] [address] PCP - General Cardiothoracic Surgery 04/15/22 07/23/22 Marcell Uriostegui MD [address] [place] [address] PCP - General Adolescent Medicine 07/24/22 04/05/23 Heidi Rivers APRN 2017 [facility] [address] [place] [address] PCP - General Nurse Practitioner 04/06/23 Lu Bergman MD [address] [facility] [address] [place] [address] Hematology and Oncology 10/31/24 documented as of this encounter
--- OUTSIDE RECORDS SUMMARY | 2025-04-30 09:29 | XMS_ITS | Encounter Summary ---
Author Organization [employer] ([place], [place], [place], [place], [place]) Address [address] [place] [address] Care Team Providers Care Mutuel Cashier Name Role Phone Jonas Navas MD Primary Care Provider [phone] Marcell Uriostegui MD Primary Care Provider + [phone] Heidi Rivers APRN Primary Care Provider + [phone] Neptali Bergman MD Unavailable [phone] Encounter Details Date Type Department Care Team (Late st Contact Info) Description 12/06/2020 Transcribed Document [facility] Pulm & Critical Care Medicine [address] [place] [address] [address] [place] [address] [place] [address] [address] [place] [id number] Social History Tobacco Use Types Packs/Day Years Used Date Smoking Tobacco: Never Assessed Comments Unknown Sex and Gender Information Value Date Recorded Sex Assigned at Not on file Legal Sex Female 1:09 PM CDT Gender Identity Not on file Sexual Orientation Not on file documented as of this encounter Miscellaneous Notes * Cerner Conversion Note - Princess Gaytan MD - 12/06/2020 2:09 PM EDT Patient: ALEJANDRINA YEH Age: 65 years Sex: Female : 1955 Associated Diagnoses: None Author: PRINCESS GAYTAN MD Basic Information History of Present Illness: This is a 65-year-old female with a past medical history of 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 Patient is currently intubated, sedated, and on [...] ALINA lobectomy COPD NIDDM GERD HLD HTN [place] TIA CAD Past Surgical History ALINA lobectomy [...] reports hallucinations otherwise no new overnight events ICU Day: 3 Vent Day: 5 (Intubated on 12/01 at OSH)- now extubated PIVL Review of Systems Constitutional: No fever. Eye: Negative. Ear/Nose/Mouth/Throat: Negative. Respiratory: No shortness of breath. Cardiovascular: No chest pain. Gastrointestinal: No abdominal pain. Genitourinary: Negative. Musculoskeletal: No back pain. Integumentary: No rash. Neurologic: Confusion. Psychiatric: Negative. Health Status Allergies: Allergic Reactions (All) Severity [...] Inhalation, RT_BID SOLU-Medrol: 40 mg, IV Push, Q12H Sodium Chloride 0.9% intravenous solution: 250 mL, [...] mL: 100 mg, 50 mL/Hr, IV Piggyback, [id number] fentaNYL injection 1,000 mcg + Premix Diluent [...] Refill(s) fluticasone 50 mcg/inh nasal spray: 2 [place], Nasal, Daily, PRN: Nasal Congestion, 0 Refill(s) [...] 0.9% 100 mL 100 mg, IV Piggyback, [id number] famotidine 20 mg tab 20 mg 1 Tab, Oral, BID heparin 5,000 units/1 mL inj 5,000 Units 1 mL, SubCutaneous, Q8H insulin lispro 1 unit/0.01 mL inj 76 kg - 100 kg scale, SubCutaneous, Q6H methylPREDNISolone SUCCinate 40 mg/1 mL inj PF 40 mg 1 mL, IV Push, Q12H piperacillin-tazobactam + NaCl 0.9% 100 mL 3.375 [...] - Lung cancer adenocarcinoma / SNOMED CT 9317622730 / Confirmed Claustrophobia / SNOMED CT 24033962 / Confirmed Diabetes mellitus type II / SNOMED CT 20288901 / Confirmed Diverticulosis / SNOMED CT 7511935830 / Confirmed Shortness of breath / SNOMED CT 340341024 / Confirmed GERD - Gastro-esophageal reflux disease / SNOMED CT 2523975987 / Confirmed Hiatal hernia / SNOMED CT 155069206 / Confirmed History of obstructive sleep apnea / IMO [id number] / Confirmed Inactive: Seasonal allergies / SNOMED CT 8540427426 Canceled: Chronic cough / SNOMED CT 826851630 Canceled: History of obstructive sleep apnea - no c-pap / IMO [id number] Canceled: History of obstructive sleep apnea / IMO [id number] Canceled: Current every day smoker / SNOMED CT 1979515022, Active Problems (18) Arthritis Back pain CA - Lung cancer adenocarcinoma 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 Claustrophobia Coronary artery disease s/p WV Diabetes mellitus type II Diverticulosis GERD - Gastro-esophageal reflux disease H/O: TIA Hiatal hernia High blood pressure History of obstructive sleep apnea Hyperlipidemia Migraine Shortness of breath Sinusitis Sleep apnea no c-pap Physical Examination VS/Measurements Vitals Signs (last 24 hrs) Last Charted Minimum Maximum Temp 99.5 (DEC 06 11:30) 98.7 (DEC 06 08:00) 99.5 (DEC 06 11:30) Apical HR 100 (DEC 05 23:42) 100 (DEC 05 23:42) 100 (DEC 05 23:42) Mon HR 100 (DEC 06 11:30) 84 (DEC 05 22:00) 120 (DEC 06 10:00) Resp Rate H 23 (DEC 06 11:30) 14 (DEC 06 00:02) H 45 (DEC 06 10:00) SBP H 158 (DEC 06 11:30) 124 (DEC 06 06:00) H 185 (DEC 06 11:00) DBP 70 (DEC 06 11:30) 60 (DEC 06 01:00) H 93 (DEC 06 11:00) MAP 100 (DEC 06 11:30) 86 (DEC 06 06:00) 119 (DEC 06 11:00) SpO2 96 (DEC 06 11:30) L 92 (DEC 05 17:00) 100 (DEC 05 23:00) 2LNC General: No acute distress. Eye: Pupils are equal, round and reactive to light, Normal conjunctiva. HENT: Normocephalic, Oral mucosa is moist. Neck: Supple, No lymphadenopathy. Respiratory: dec bilateral bases, no wheeze or rhonchi noted today respiratons easy and nonlabored. Cardiovascular: Normal rate, No edema. Gastrointestinal: Soft, Non-tender, Non-distended, Normal bowel sounds. Integumentary: Warm, Dry, [place]. Neurologic: Alert, Oriented, No focal deficits, however some hallucination noted pt reports they think Im losing my mind and then tries to convince me there is a man up in the mirror. . Psychiatric: Cooperative, Appropriate mood & affect. Review / Management Results review: Labs (Last four charted values) WBC 8.7 (DEC 06) 5.9 (DEC 05) 7.2 (DEC 04) 6.3 (DEC 04) HB L 8.2 (DEC 06) L 8.6 (DEC 05) L 8.5 (DEC 04) L 8.4 (DEC 04) HCT L 25.9 (DEC 06) L 27.2 (NOV 15) L 27.4 (DEC 04) L 27.3 (DEC 04) Plt L 119 (NOV 16) 166 (NOV 15) 190 (NOV 14) 213 (NOV 14) Na 142 (NOV 16) 139 (NOV 15) 136 (NOV 15) 138 (NOV 14) K 3.6 (NOV 16) 3.9 (NOV 15) 4.0 (DEC 05) 4.1 (DEC 04) Cl 109 (NOV 16) 104 (NOV 15) 103 (NOV 15) 102 (NOV 14) CO2 29 (NOV 16) 28 (NOV 15) 27 (NOV 15) 28 (NOV 14) BUN H 23 (NOV 16) 17 (NOV 15) 18 (NOV 15) 14 (NOV 14) Cr 0.80 (NOV 16) 0.80 (NOV 15) 0.80 (NOV 15) 0.70 (DEC 04) Glu R H 128 (NOV 16) H 166 (NOV 15) H 165 (NOV 15) 105 (NOV 14) Ca 8.9 (NOV 16) 8.8 (DEC 05) 8.6 (DEC 05) L 8.3 (DEC 04) Lactic 1.6 (DEC 06) 1.7 (NOV 15) 1.2 (DEC 04) 0.6 (DEC 04) PT 10.7 (DEC 05) 10.3 (DEC 04) INR 1.0 (DEC 05) 1.0 (DEC 04) AST 23 (DEC 06) 19 (NOV 15) 23 (NOV 14) ALT 38 (DEC 06) 38 (NOV 15) 46 (DEC 04) ALK P 68 (DEC 06) 75 (NOV 15) 72 (DEC 04) T Bili 0.7 (DEC 06) 0.8 (DEC 05) 0.6 (DEC 04) PTN 6.8 (DEC 06) 6.7 (DEC 05) L 6.2 (DEC 04) ALB L 2.8 (DEC 06) L 2.5 (DEC 05) L 2.7 (DEC 04) Lipase 81 (DEC 04) Troponin H 0.070 (DEC 04) H 0.165 (DEC 04) . Blood Gases (Current Encounter/Past 24 Hours) pH Art 7.44 12/06/2020 06:49 pCO2 Art 44.2 12/06/2020 06:49 pO2 Art 74.4 LOW 12/06/2020 06:49 HCO3 Art 29.8 HI 12/06/2020 06:49 BE Art 5.1 HI 12/06/2020 06:49 sO2 Art 95.3 12/06/2020 06:49 tHb Art 7.9 LOW 12/06/2020 06:49 FHHb 4.6 NA 12/06/2020 06:49 ctO2 10.5 NA 12/06/2020 06:49 FIO2 Art 40 NA 12/05/2020 13:41 Delivery Device Type Art Cannula NA 12/06/2020 06:49 Temperature, F Art 98.6 NA 12/06/2020 06:49 Art Blood Gas (ABG) Site Right Radial NA 12/06/2020 06:49 Acceptable Giancarlo's Test Art Acceptable NA 12/06/2020 06:49 Ventilator Mode Art N/A NA 12/06/2020 06:49 Oxygen Flow Rate Art 2.0 NA 12/06/2020 06:49 Respiratory Rate Art 16.0 NA 12/05/2020 13:36 CPAP/PEEP Art 5.0 NA 12/05/2020 13:36 Pressure Support Art 8.0 NA 12/05/2020 13:36 Comment Art supine NA 12/06/2020 06:49 ABG Num of Draw Attempts 1 NA 12/06/2020 06:49 PaO2/FiO2 calculated 217 NA 12/05/2020 13:41 Radiology Results (Last 48 hours) [id number] -- 2020 00:20 CR Chest 1 Vw Portable (12/05/2020 04:51) [...] transcribed report. CR Chest 1 Vw Portable (12/06/2020 04:25) Result: PORTABLE CHESTHISTORY: Pneumonia.COMPARISON: PCXR from the previous day.FINDINGS: The heart is stable in size. There is mild bibasilaratelectasis. There is no pneumothorax. The endotracheal tube has beenremoved in the interim . IMPRESSION: Interval extubation with mild bibasilar atelectasis . Images reviewed, interpreted, and dictated by Dr. Lorenzo Buck.Transcribed by Robin Birmingham PA-C.I have personally viewed, interpreted and dictated the examination. Shi read and agree with the above final transcribed report. Impression and Plan Pulmonary Tqlhp-bm-dsewxyc hypercapnic respiratory failure Intubated at OSH on 12/01 and now extubated COPD, acute exacerbation, no PFTs for review pt with tobacco abuse history Lung adenocarcinoma with brain and abdominal metastases s/p ALINA lobectomy, chemotherapy (last treatment 11/28) Cardiovascular CAD History of [place] HTN ID Possible PNA? Negative procalcitonin, no leukocytosis GI GERD Neuro Altered mental status History of TIA Renal Electrolyte disturbances Hypokalemia Endocrine Glycemic control Hematology/Oncology Lung adenocarcinoma with brain and abdominal metastases s/p ALINA lobectomy, chemotherapy (last treatment 11/28) Prophylaxis PLAN: Wean FiO2, for goal saturation >89%. -DuoNebs Q6hH/ Pulmicort nebs BID -IV Solumedrol 40mg Q6H change to Q 12 hour for today and wean further as indicated -Encourage IS discussed with pt and -Hemodynamics: Stable. -ID: Current antibiotics: Zosyn, Doxy Blood cultures: NGTD. Sputum cultures: NGTD.. Pneumonia PCR panel: Negative. Trend procalcitonin, CBC w/diff MRSA + swab- not detected in PCR- pt afebrile, neg procal, no leukocytosis will monitor clinically and add coverage if needed -Consult Speech for Swallow evaluation, need to start TF if not cleared for PO -Glycemic control: SSIq6 Prophylaxis: protonix change to pepcid/ Heparin SQ Q8 Keep hob elevated, lights on day discussed with pt and family upon rounding CXR AM labs ordered. FULL CODE Prognosis: Guarded. Disposition: ICU now due to ongoing mental status issues especially with hallucinations. Discussed with patient's at bedside about the [...] spent on the patient excluding procedures - 31 min. documented in this encounter Plan of Treatment Upcoming Encounters Date Type Department Care Team (Late st Contact Info) Description 05/14/2025 8:00 AM EST Lab Patient Walk-In [facility] - [address] [place] [address] 05/14/2025 8:30 AM EST Appointment [facility] Imaging CT - [address] [place] [address] Neptali Bergman MD [address] [facility] [address] [place] [address] 05/14/2025 10:00 AM EST Appointment [facility] - [address] [place] [address] [place] [address] [place] [address] [address] [place] [address] 05/14/2025 2:15 PM EST Office Visit [facility] - [address] [place] [address] Neptali Bergman MD [address] [place] [address] [address] [place] [address] documented as of this encounter Visit Diagnoses Not on filedocumented in this encounter Care Teams Mutuel Cashier Relationship Specialty Start Date End Date Jonas Navas MD [address] [facility] [address] [place], [place] [id number] PCP - General Cardiothoracic Surgery 04/15/22 07/23/22 Marcell Uriostegui MD [address] [place] [address] PCP - General Adolescent Medicine 07/24/22 04/05/23 Heidi Rivers APRN [address] [facility] [address] [place] [address] PCP - General Nurse Practitioner 04/06/23 Neptali Bergman MD [address] [place] [address] [address] [place] [address] Hematology and Oncology 10/31/24 documented as of this encounter
--- OUTSIDE RECORDS SUMMARY | 2025-04-30 09:29 | XMS_ITS | Encounter Summary ---
Author Organization [employer] ([place], [place], [place], [place], [place]) Address [address] [place] [address] Care Team Providers Care Knot Cutter Name Role Phone Jonas Navas MD Primary Care Provider [phone] Marcell Uriostegui MD Primary Care Provider + [phone] Heidi Rivers APRN Primary Care Provider + [phone] Neptali Bergman MD Unavailable [phone] Encounter Details Date Type Department Care Team (Late st Contact Info) Description 07/29/[address] [facility] Family Medicine [address] [place] [address] ProviderJennifer MD [address] [place] [address] Social History Tobacco Use Types Packs/Day Years Used Date Smoking Tobacco: Never Assessed Comments Unknown Sex and Gender Information Value Date Recorded Sex Assigned at Not on file Legal Sex Female 1:09 PM CDT Gender Identity Not on file Sexual Orientation Not on file documented as of this encounter Miscellaneous Notes * Cerner Conversion Note - Jennifer ProviderMD - 07/29/2019 10:36 AM MARKETING REPRESENTATIVE Patient: ALEJANDRINA YEH Age: 63 years Sex: Female : 1955 Associated Diagnoses: None Author: ZENOBIA DE LEON PA Admission Date: \20 Discharge Date: Attending: Dr. Jonas Navas, [place] Surgery PCP: Dr. Jordy Akers ( [place] [...] abnormality in the body was found. PROCEDURE: >>1. Left minimally invasive muscle sparing thoracotomy. 2. [...] today 07/29/19: POD #4 no new complaints Health Status Allergies: Allergic Reactions (Selected) Severity Not Documented Anoro Ellipta- Chest pain. Corgard- Unknown. DilTIAZem- Unknown. Levaquin- Vomiting. Stiolto Respimat 10 ACT- Chest pain and muscle weakness (generalized). Current medications.Problem list. Objective VS/Measurements Vital Measurements 07/29/2019 8:37 EST Oxygen Saturation 98 % Oxygen Flow Rate 3 Liter/Min 07/29/2019 6:51 EST Systolic Blood Pressure 107 mmHg Diastolic Blood Pressure 54 mmHg LOW Temperature, Fahrenheit 98.4 Deg F Heart Rate Monitored 72 bpm General: No acute distress. Respiratory: Lungs are clear to auscultation, anteriorly. Cardiovascular: Normal rate, Regular rhythm. Lt Chest incision>> aquacell dressing Tolerates PO Scott secondary to epidural Last BM>> 3\2 Neurologic: Alert, Oriented. Results Review General results Interpretation: Radiology Results (Last 48 hours) [id number] -- 07/25/2019 07:00 CR Chest 1 Vw Portable (07/28/2019 06:48) Result: PORTABLE CHEST 07/28/2019 4:00 AM HISTORY: Pneumothorax.COMPARISON: July 27, 2019.FINDINGS: The heart is enlarged. The mediastinum is unremarkable . Aleft chest tube is present. There is persistent left chest wall air. Aleft posterior fifth rib fracture is seen. There is worsening rightbasilar atelectasis or pneumonia. There is a small right pleuraleffusion. There is no pneumothorax identified . IMPRESSION: 1. Worsening right basilar atelectasis or pneumonia with small rightpleural effusion.2. Left chest tube present with persistent left chest wall air. Leftposterior fifth rib fracture is seen. No pneumothorax identified.Images reviewed, interpreted, and dictated by Dr. Gautam Nieves.Transcribed by Roxy Ballard PA-C.I have personally viewed, interpreted and dictated the examination. Ihcarito read and agree with the above final transcribed report. CR Chest 1 Vw Portable (07/29/2019 07:42) Result: PORTABLE CHEST 07/29/2019 4:00 AM HISTORY: Pneumothorax.COMPARISON: Previous day .FINDINGS: The heart is stable in size. The lung murcia demonstrate nosignificant change in the bibasilar opacities. There are left hilarsurgical clips noted. There is no pneumothorax . The support devicesare in good position . IMPRESSION: There has been no significant interval change . Continued follow-up recommended .Images reviewed, interpreted, and dictated by Dr. Kaz Whyte.Transcribed by Mark Costello PA-C.I have personally viewed, interpreted and dictated the examination. Ihave read and agree with the above final transcribed report. PATH: Impression and Plan VTE STATUS>>[facility] 3\ Admission 1. Left minimally invasive muscle sparing thoracotomy. 2. Left upper lobectomy. 3. Mediastinal lymphadenectomy. 07/26/19 POD#1 CT 335ml / 12 hours + air leak Get OOB up to a chair Encouraged IS Transfer to [facility] 07/27/19 POD#2 O2 92% on 4 [...] on chart for Dr. Navas to sign 07/29/19 POD #4: Left upper lobectomy Chest tube drainage: 830 mL past 24 hours. (Serosanguineous) Placed to waterseal Begun on Lasix 40 mg daily documented in this encounter Plan of Treatment Upcoming Encounters Date Type Department Care Team (Late st Contact Info) Description 05/14/2025 8:00 AM EST Lab Patient Walk-In [facility] - [place] [address] [facility] [address] [place] [address] 05/14/2025 8:30 AM EST Appointment [facility] Imaging CT - [address] [facility] [address] [place] [address] [place] [address] [place] [address] [address] [place] [address] 05/14/2025 10:00 AM EST Appointment [facility] [address] [facility] [address] [place] [address] Neptali Bergman MD [address] [facility] [address] [place] [address] 05/14/2025 2:15 PM EST Office Visit [facility] - [address] [place] [address] Neptali Bergman MD [address] [facility] [address] [place] [address] documented as of this encounter Visit Diagnoses Not on filedocumented in this encounter Care Teams Knot Cutter Relationship Specialty Start Date End Date Jonas Navas MD [address] [facility] [address] [place] [address] PCP - General Cardiothoracic Surgery 04/15/22 07/23/22 Marcell Uriostegui MD [address] [facility] [address] [place] [address] PCP - General Adolescent Medicine 07/24/22 04/05/23 Heidi Rivers, [address] [place] [address] PCP - General Nurse Practitioner 04/06/23 Neptali Bergman MD [address] [facility] [address] [place] [address] Hematology and Oncology 10/31/24 documented as of this encounter
--- OUTSIDE RECORDS SUMMARY | 2025-04-30 09:29 | XMS_ITS | Encounter Summary ---
Author Organization [employer] ([place], [place], [place], [place], [place]) Address [address] [place] [address] Care Team Providers Care Photography Instructor Name Role Phone Jonas Navas MD Primary Care Provider [phone] Marcell Uriostegui MD Primary Care Provider + [phone] Heidi Rivers APRN Primary Care Provider + [phone] Neptali Bergman MD Unavailable [phone] Encounter Details Date Type Department Care Team (Late st Contact Info) Description 07/28/2019 Transcribed Document [facility] [place] [facility] [place] [address] ProviderJennifer MD [address] [place] [address] Social History Tobacco Use Types Packs/Day Years Used Date Smoking Tobacco: Never Assessed Comments Unknown Sex and Gender Information Value Date Recorded Sex Assigned at Not on file Legal Sex Female 1:09 PM CDT Gender Identity Not on file Sexual Orientation Not on file documented as of this encounter Miscellaneous Notes * Cerner Conversion Note - Jennifer ProviderMD - 07/28/2019 5:00 AM DRESS DESIGNER Chart Check - Review Order Profile Entered On: 07/28/2019 5:22 EST Performed On: 07/28/2019 5:00 EST by Ishaan Gonzales RN Chart Check Powerplans Initiated/Discontinued as Appropriate : Yes All Active Orders Reviewed : Yes Ishaan Gonzales RN - 07/28/2019 5:22 EST Electronically signed by [facility] Conversion Editing Internship Cerner at 09/10/2022 12:48 AM CDT documented in this encounter Plan of Treatment Upcoming Encounters Date Type Department Care Team (Late st Contact Info) Description 05/14/2025 8:00 AM EST Lab Patient Walk-In [facility] - [address] [place] [address] 05/14/2025 8:30 AM EST Appointment [facility] Imaging CT - [address] [place] [address] Neptali Bergman MD [address] [place] [address] 05/14/2025 10:00 AM EST Appointment [facility] MRI - [address] [place] [address] Neptali Bergman MD [address] [place] [address] 05/14/2025 2:15 PM EST Office Visit [facility] - [address] [place] [address] Neptali Bergman MD [facility] [address] [place] [address] documented as of this encounter Visit Diagnoses Not on filedocumented in this encounter Care Teams Photography Instructor Relationship Specialty Start Date End Date Jonas Navas MD [address] [facility] [address] [place] [address] PCP - General Cardiothoracic Surgery 04/15/22 07/23/22 Marcell Uriostegui MD [address] [place] [address] [place] [address] PCP - General Adolescent Medicine 07/24/22 04/05/23 Heidi Rivers PILOT STEAM YACHT [address] [facility] [address] [place] [address] PCP - General Nurse Practitioner 04/06/23 Neptali Bergman MD [address] [facility] [address] [place] [address] Hematology and Oncology 10/31/24 documented as of this encounter
--- OUTSIDE RECORDS SUMMARY | 2025-04-30 09:29 | XMS_ITS | Encounter Summary ---
Author Organization [employer] ([place], [place], [place], [place], [place]) Address [address] [place] [address] Care Team Providers Care Mixer Runner Name Role Phone Jonas Navas MD Primary Care Provider [phone] Marcell Uriostegui MD Primary Care Provider + [phone] Heidi Rivers APRN Primary Care Provider + [phone] Neptali Bergman MD Unavailable [phone] Encounter Details Date Type Department Care Team (Late st Contact Info) Description 12/06/2020 Transcribed Document [facility] [place] [address] [place] [address] ProviderJennifer MD [address] [place] [address] Social History Tobacco Use Types Packs/Day Years Used Date Smoking Tobacco: Never Assessed Comments Unknown Sex and Gender Information Value Date Recorded Sex Assigned at Not on file Legal Sex Female 1:09 PM CDT Gender Identity Not on file Sexual Orientation Not on file documented as of this encounter Miscellaneous Notes * Cerner Conversion Note - Historical ProviderMD - 12/06/2020 8:49 PM CDT Patient: ALEJANDRINA YEH Age: 65 Years Sex: Female : 1955 Subjective DOS: 12/06/20 she was extubated yesterday and is breathing easily today. Her main concern today is visual hallucinations. She is continue to do this through the afternoon. Family present and questions addressed. Vital Signs T: 37.6 ??C HR: 108(Monitored) RR: 26 BP: 152/73 SpO2: 96% HT: 157.48 cm WT: 84.09 kg BMI: 33.91 Oxygen Settings (Last) Oxygen Therapy Mode: Nasal cannula (12/06/20 21:22:00) Oxygen Flow Rate: 2 Liter/Min (12/06/20 21:22:00) Intake & Output Totals Last 24 Hours (7a-7a) Input Total: 401.98 mL Output Total: 550 mL Balance: -148.02 mL Physical Exam General: no acute distress Neurologic: Awake, alert, and oriented X3, Moves all extremities. Visual hallucinations persist. Eye: Pupils reactive and equal bilaterally. OP clear. Neck: No carotid bruits, no JVD, no [...] chronic obstructive pulmonary disease. required mechanical ventilation Activity today and tolerating nasal cannula oxygen supplementation today 2. History of lung cancer with metastasis. Followed by oncology. 3. Hypertension. Stable. 4. Pneumonia. Broad IV antibiotics. Cultures negative to date. 5. Diabetes mellitus. -Glucose is well controlled today. Monitor and adjust meds as needed for control. 6. Anemia. Stable-follow. 7. COPD-acute exacerbation-weaning IV steroids. Continue inhaled bronchodilators. 8. Visual hallucinations-could be due to pain medications or medicine use for sedation however I am concerned with the visual hallucinations that this could be withdrawal from benzodiazepines. She takes alprazolam at home. I will resume her alprazolam twice a day scheduled and see if this helps her symptoms. Hopefully out of the ICU tomorrow VTE Prophylaxis - Medical Heparin 5,000 Units, [...] + NaCl 0.9% for drip 100 mL Dilaudid, 1 mg= 1 mL, IV Push, Q6H, PRN diphenhydrAMINE, 25 mg= 0.5 mL, IV Push, [...] Sodium Chloride 0.9% intravenous solution 150 mL granisetron, 1 mg= 1 mL, IV Push, 1-Time granisetron, 1 mg= 1 mL, IV Push, 1-Time granisetron, 1 mg= 1 mL, IV Push, 1-Time granisetron, 1 mg= 1 mL, IV Push, 1-Time heparin, 5000 Units= 1 mL, SubCutaneous, Q8H hydrALAZINE, 10 mg= 0.5 mL, IV Push, Q3H, PRN insulin lispro sliding scale, Scale C:, SubCutaneous, AC and at Bedtime Keytruda + Sodium Chloride 0.9% intravenous solution 100 mL Keytruda + Sodium Chloride 0.9% intravenous solution 100 mL magnesium sulfate, 2 Gram= 50 mL, IV Piggyback, Daily, PRN magnesium sulfate, 2 Gram= 50 mL, IV Piggyback, Q2H, PRN Pepcid, 20 mg= 1 Tab, Oral, BID Pepcid + Sodium Chloride 0.9% intravenous solution [...] 60 mEq= 3 Tab, Oral, Q2H, PRN Pulmicort Respules, 0.5 mg= 2 mL, Nebulized Inhalation , RT_BID Sodium Chloride 0.9% intravenous solution, 250 mL, IntraVENous, 1-Time Sodium Chloride 0.9% intravenous solution, 250 mL, IntraVENous, 1-Time Sodium Chloride 0.9% intravenous solution, 250 mL, IntraVENous, 1-Time Sodium Chloride 0.9% intravenous solution, 250 mL, IntraVENous, 1-Time sodium phosphate sodium phosphate SOLU-Medrol, 40 mg= 1 mL, IV Push, Q12H Tylenol, 650 mg= 2 Tab, Oral, Q4H, PRN Vitamin B-12, 1000 mcg= 1 mL, IntraMuscular, 1-Time Vitamin B-12, 1000 mcg= 1 mL, IntraMuscular, 1-Time Xanax, 0.5 mg= 1 Tab, Oral, BID, PRN Zofran, 4 mg= 2 mL, IV Push, Q4H, PRN Zosyn + Sodium Chloride 0.9% intravenous solution 100 mL Lab Results Test Name Test Result Date/Time pH Art 7.44 12/06/2020 06:24 EDT pCO2 Art 44.2 mmHg 12/06/2020 06:24 EDT pO2 Art 74.4 mmHg (Low) 12/06/2020 06:24 EDT HCO3 Art 29.8 mmol/L (High) 12/06/2020 06:24 EDT BE Art 5.1 mmol/L (High) 12/06/2020 06:24 EDT sO2 Art 95.3 % 12/06/2020 06:24 EDT tHb Art 7.9 Gram/dL (Low) 12/06/2020 06:24 EDT FHHb 4.6 % 12/06/2020 06:24 EDT ctO2 10.5 mmol/L 12/06/2020 06:24 EDT Delivery Device Type Art Cannula 12/06/2020 06:24 EDT Temperature, F Art 98.6 Deg F 12/06/2020 06:24 EDT Art Blood Gas (ABG) Site Right Radial 12/06/2020 06:24 EDT Acceptable Giancarlo's Test Art Acceptable 12/06/2020 06:24 EDT Ventilator Mode Art N/A 12/06/2020 06:24 EDT Oxygen Flow Rate Art 2.0 Liter 12/06/2020 06:24 EDT Comment Art supine 12/06/2020 06:24 EDT ABG Num of Draw Attempts 1 12/06/2020 06:24 EDT Sodium Level 142 mmol/L 12/06/2020 07:37 EDT Potassium Level 3.6 mmol/L 12/06/2020 07:37 EDT Chloride Level 109 mmol/L 12/06/2020 07:37 EDT Carbon Dioxide Level 29 mmol/L 12/06/2020 07:37 EDT Anion Gap 8 (Low) 12/06/2020 07:37 EDT Glucose Level 128 mg/dL (High) 12/06/2020 07:37 EDT Blood Urea Nitrogen 23 mg/dL (High) 12/06/2020 07:37 EDT Creatinine Level 0.80 mg/dL 12/06/2020 07:37 EDT eGFR >60 mL/min/1.73m2 12/06/2020 07:37 EDT eGFR NonAfrican >60 mL/min/1.73m2 12/06/2020 07:37 EDT Bun/Creatinine 28.8 (High) 12/06/2020 07:37 EDT Calcium Level 8.9 mg/dL 12/06/2020 07:37 EDT Protein Total 6.8 Gram/dL 12/06/2020 07:37 EDT Albumin Level 2.8 Gram/dL (Low) 12/06/2020 07:37 EDT Globulin 4.0 Gram/dL 12/06/2020 07:37 EDT A/G Ratio 0.7 (Low) 12/06/2020 07:37 EDT Bilirubin Total 0.7 mg/dL 12/06/2020 07:37 EDT Alk Phos 68 Units/Liter 12/06/2020 07:37 EDT AST 23 Units/Liter 12/06/2020 07:37 EDT ALT 38 Units/Liter 12/06/2020 07:37 EDT Magnesium Level 2.4 mg/dL 12/06/2020 07:37 EDT Phosphorus 2.6 mg/dL 12/06/2020 07:37 EDT Device Comment 1 Protocols Followed 12/06/2020 21:30 EDT Device Comment 1 Notified Nurse RBV 12/06/2020 05:37 EDT Glucose POC2 138 mg/dL (High) 12/06/2020 21:30 EDT Glucose POC2 113 mg/dL (High) 12/06/2020 15:53 EDT Glucose POC2 129 mg/dL (High) 12/06/2020 10:36 EDT Glucose POC2 140 mg/dL (High) 12/06/2020 05:37 EDT CRP 6.25 mg/dL (High) 12/06/2020 07:37 EDT Lactate Dehydrogenase 271 Units/Liter (High) 12/06/2020 07:37 EDT Lactic Acid Level 1.6 mmol/L 12/06/2020 07:37 EDT Calcium Ionized 1.24 mmol/L 12/06/2020 07:37 EDT ProBNP 3989 pg/mL (High) 12/06/2020 07:37 EDT WBC 8.7 K/uL 12/06/2020 07:37 EDT RBC 3.18 Million/uL (Low) 12/06/2020 07:37 EDT Hgb 8.2 g/dL (Low) 12/06/2020 07:37 EDT Hct 25.9 % (Low) 12/06/2020 07:37 EDT MCV 81.4 fL 12/06/2020 07:37 EDT MCH 25.8 pg 12/06/2020 07:37 EDT MCHC 31.7 Gram/dL (Low) 12/06/2020 07:37 EDT Platelet Count 119 K/uL (Low) 12/06/2020 07:37 EDT MPV 10.1 fL 12/06/2020 07:37 EDT RDW 23.4 % (High) 12/06/2020 07:37 EDT Neutrophil Percent Man 93 % (High) 12/06/2020 07:37 EDT Lymph Percent Man 5 % (Low) 12/06/2020 07:37 EDT Holt Percent Man 2 % (Low) 12/06/2020 07:37 EDT Eos Percent Man 0 % 12/06/2020 07:37 EDT Baso Percent Man 0 % 12/06/2020 07:37 EDT RBC Morphology Abnormal 12/06/2020 07:37 EDT Anisocytosis 2+ (Abnormal) 12/06/2020 07:37 EDT Poikilocytosis 1+ (Abnormal) 12/06/2020 07:37 EDT Hypochromia 1+ (Abnormal) 12/06/2020 07:37 EDT Ovalocytes 1+ (Abnormal) 12/06/2020 07:37 EDT Stomatocytes 1+ (Abnormal) 12/06/2020 07:37 EDT Hypersegmented Neut Present (Abnormal) 12/06/2020 07:[address] Estimate Decreased (Abnormal) 12/06/2020 07:37 EDT Slide Review Add Diff 12/06/2020 07:37 EDT Fibrinogen Level 590 mg/dL (High) 12/06/2020 07:37 EDT Procalcitonin <0.25 ng/mL 12/06/2020 07:37 EDT Electronically signed by [facility], [facility] Conversion Automatic Furnace Operator Cerner at 09/10/2022 12:36 AM CDT documented in this encounter Plan of Treatment Upcoming Encounters Date Type Department Care Team (Late st Contact Info) Description 05/14/2025 8:00 AM EST Lab Patient Walk-In [facility] - [address] [place] [address] 05/14/2025 8:30 AM EST Appointment On License [facility] [address] [facility] [address] [place] [address] Neptali Bergman MD [address] [place] [address] 05/14/2025 10:00 AM EST Appointment [facility] - [address] [place] [address] Neptali Bergman MD [address] [facility] [address] [place] [address] 05/14/2025 2:15 PM EST Office Visit [facility] - [place] [address] [place] [address] Neptali Bergman MD [address] [facility] [address] [place] [address] documented as of this encounter Visit Diagnoses Not on filedocumented in this encounter Care Teams Mixer Runner Relationship Specialty Start Date End Date Jonas Navas MD [address] [facility] [address] [place], [place] [id number] PCP - General Cardiothoracic Surgery 04/15/22 07/23/22 Marcell Uriostegui MD [address] [place] [address] [place] [address] PCP - General Adolescent Medicine 07/24/22 04/05/23 Hiedi Rivers, ROMERO [address] [facility] [address] [place] [address] PCP - General Nurse Practitioner 04/06/23 Neptali Bergman MD [address] [facility] [address] [place] [address] Hematology and Oncology 10/31/24 documented as of this encounter
--- OUTSIDE RECORDS SUMMARY | 2025-04-30 09:29 | XMS_ITS | Encounter Summary ---
Author Organization [employer] ([place], [place], [place], [place], [place]) Address [address] [place] [address] Care Team Providers Care Casting Coordinator Name Role Phone Jonas Navas MD Primary Care Provider [phone] Marcell Uriostegui MD Primary Care Provider + [phone] Heidi Rivers APRN Primary Care Provider + [phone] Npetali Bergman MD Unavailable [phone] Encounter Details Date Type Department Care Team (Late st Contact Info) Description 07/28/2019 Transcribed Document [facility] [place] [address] [place] [address] ProviderJennifer MD [address] [place] [address] Social History Tobacco Use Types Packs/Day Years Used Date Smoking Tobacco: Never Assessed Comments Unknown Sex and Gender Information Value Date Recorded Sex Assigned at Not on file Legal Sex Female 1:09 PM CDT Gender Identity Not on file Sexual Orientation Not on file documented as of this encounter Miscellaneous Notes * Cerner Conversion Note - Jennifer ProviderMD - 07/28/2019 9:14 AM OUTSIDE SOLAR SALES CONSULTANT Patient: ALEJANDRINA YEH Age: 63 years Sex: Female : 1955 Associated Diagnoses: None Author: GALDINO GHOTRA APRN-CTS Admission Date: Discharge Date: Attending: Dr. Jonas Navas, CT Surgery PCP: Dr. Jordy Akers ( [facility] Internal Medicine, ) Consultants: Brief History:This [...] very hoarse 07/28/19: POD#3 more comfortable today Health Status Allergies: Allergic Reactions (Selected) Severity Not Documented Anoro Ellipta- Chest pain. Corgard- Unknown. DilTIAZem- Unknown. Levaquin- Vomiting. Stiolto Respimat 10 ACT- Chest pain and muscle weakness (generalized). Current medications.Problem list. Objective VS/Measurements Vital Measurements 07/28/2019 8:44 EST Oxygen Flow Rate 3 Liter/Min 07/28/2019 6:00 EST Systolic Blood Pressure 127 mmHg Diastolic Blood Pressure 56 mmHg LOW Temperature, Fahrenheit 98.3 Deg F Heart Rate Monitored 90 bpm Oxygen Saturation 95 % General: Alert and oriented. Respiratory: Lungs are clear to auscultation, anteriorly. Cardiovascular: Normal rate, Regular rhythm. Gastrointestinal: Soft, Non-tender, Non-distended. Lt Chest incision>> aquacell dressing Tolerates PO Scott secondary to epidural Last BM>> 3\2 Results Review General results Today's results 07/28/2019 3:13 EST Sodium Level 129 mmol/L LOW Potassium Level 3.9 mmol/L Chloride Level 95 mmol/L LOW Carbon Dioxide Level 32 mmol/L Anion Gap 6 LOW Glucose Level 103 mg/dL Blood Urea Nitrogen 14 mg/dL Creatinine Level 0.50 mg/dL LOW eGFR >60 mL/min/1.73m2 eGFR NonAfrican >60 mL/min/1.73m2 Bun/Creatinine 28.0 HI Calcium Level 8.8 mg/dL WBC 14.3 K/uL HI RBC 3.72 Million/uL LOW Hgb 9.9 g/dL LOW Hct 31.4 % LOW MCV 84.4 fL MCH 26.6 pg MCHC 31.5 Gram/dL LOW Platelet Count 234 K/uL Interpretation: Radiology Results (Last 48 hours) [id number] -- 07/25/2019 07:00 CR Chest 1 Vw Portable (07/27/2019 06:43) Result: PORTABLE CHEST 07/27/2019 4:00 AM HISTORY: Pneumothorax.COMPARISON: July 25, 2019.FINDINGS: The heart is normal in size . The mediastinum isunremarkable . A left chest tube is present. There is no pneumothorax .There is a small right pleural effusion. There is worsening soft tissueair at the base of the left neck. IMPRESSION: 1. No pneumothorax identified. Worsening soft tissue area seen at thebase of the left neck.2. Small right pleural effusion.Images reviewed, interpreted, and dictated by Dr. Gautam [...] to a chair Encouraged IS Transfer to [facility] 07/27/19 POD#2 O2 92% on 4 [...] on chart for Dr. Navas to sign Electronically signed by [facility], [facility] Conversion Mosaic Worker Cerner at 09/10/2022 12:35 AM CDT documented in this encounter Plan of Treatment Upcoming Encounters Date Type Department Care Team (Late st Contact Info) Description 05/14/2025 8:00 AM EST Lab Patient Walk-In [place] [facility] - [place] [address] [place] [address] 05/14/2025 8:30 AM EST Appointment [facility] [address] [facility] [address] [place] [address] Neptali Bergman MD [facility] [address] [place] [address] 05/14/2025 10:00 AM EST Appointment [facility] - [place] [facility] [address] [facility] [address] [place] [address] Neptali Bergman MD [address] [place] [address] 05/14/2025 2:15 PM EST Office Visit [place] [facility] - [place] [address] [place] [address] Neptali Bergman MD [address] [facility] [address] [place] [address] documented as of this encounter Visit Diagnoses Not on filedocumented in this encounter Care Teams Casting Coordinator Relationship Specialty Start Date End Date Jonas Navas MD [address] [facility] [address] [place] [address] PCP - General Cardiothoracic Surgery 04/15/22 07/23/22 Marcell Uriostegui MD [address] [facility] [address] [place] [address] PCP - General Adolescent Medicine 07/24/22 04/05/23 Heidi Rivers APRN [address] [facility] [address] [place] [address] PCP - General Nurse Practitioner 04/06/23 Neptali Bergman MD [address] [facility] [address] [place] [address] Hematology and Oncology 10/31/24 documented as of this encounter
--- OUTSIDE RECORDS SUMMARY | 2025-04-30 09:29 | XMS_ITS | Encounter Summary ---
Author Organization [employer] ([place], [place], [place], [place], [place]) Address [address] [place] [address] Care Team Providers Care Registration Clerk Name Role Phone Jonas Navas MD Primary Care Provider [phone] Marcell Uriostegui MD Primary Care Provider + [phone] Heidi Rivers APRN Primary Care Provider + [phone] Neptali Bergman MD Unavailable [phone] Encounter Details Date Type Department Care Team (Late st Contact Info) Description 12/07/2020 Transcribed Document [facility] Pulm & Critical Care Medicine [address] [place] [address] [address] [place] [address] [place] [address] [address] [place] [id number] Social History Tobacco Use Types Packs/Day Years Used Date Smoking Tobacco: Never Assessed Comments Unknown Sex and Gender Information Value Date Recorded Sex Assigned at Not on file Legal Sex Female 1:09 PM CDT Gender Identity Not on file Sexual Orientation Not on file documented as of this encounter Miscellaneous Notes * Cerner Conversion Note - Princess Gaytan MD - 12/07/2020 10:39 AM EDT Patient: ALEJANDRINA YEH Age: 65 years Sex: Female : 1955 Associated Diagnoses: None Author: PRINCESS GAYTAN MD Basic Information History of Present Illness: This is a 65-year-old female with a past medical history of 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 Patient is currently intubated, sedated, and [...] ALINA lobectomy COPD NIDDM GERD HLD HTN OK TIA CAD Past Surgical History ALINA lobectomy [...] ordered consultation for psychiatric evaluation. Labs/images pending. ICU Day: 4 Vent Day: 5 (Intubated on 12/01 at [...] mL: 100 mg, 50 mL/Hr, IV Piggyback, [id number] granisetron: 1 mg, IV Push, 1-Time granisetron: 1 mg, IV Push, 1-Time granisetron: 1 mg, IV Push, 1-Time granisetron: 1 mg, IV Push, 1-Time heparin: 5,000 Units, SubCutaneous, Q8H hydrALAZINE: 10 mg, IV Push, Q3H, PRN: Hypertension insulin lispro sliding scale: Scale C:, SubCutaneous, [...] Refill(s) fluticasone 50 mcg/inh nasal spray: 2 Sebastian, Nasal, Daily, PRN: Nasal Congestion, 0 Refill(s) folic acid 1 mg oral tablet: 1 Tab, Oral, Daily, 0 Refill(s) hydroCHLOROthiazide-lisinopril 25 mg-20 mg oral tablet: 1 Tab, Oral, Daily, 30 Tab, 0 Refill(s) ondansetron 8 mg oral tablet: 1 Tab, Oral, TID, PRN: Nausea/Vomiting, 9 Tab, 0 Refill(s) predniSONE 10 mg oral tablet: 2 Tab, Oral, Daily, 40 Tab, 0 Refill(s), Medications (26) Active Scheduled: (8) albuterol-ipratropium inh 3 mL 3 mL, Nebulized Inhalation, RT_Q6H budesonide 0.5 mg/2 mL inh susp 0.5 mg 2 mL, Nebulized Inhalation, RT_BID doxycycline hyclate + NaCl 0.9% 100 mL 100 mg, IV Piggyback, [id number] famotidine 20 mg tab 20 mg 1 Tab, Oral, BID heparin 5,000 units/1 mL inj 5,000 Units 1 mL, SubCutaneous, Q8H insulin lispro 1 unit/0.01 mL inj Scale C:, SubCutaneous, AC and at Bedtime methylPREDNISolone SUCCinate 40 mg/1 mL inj PF 40 mg 1 mL, IV Push, Q12H piperacillin-tazobactam + NaCl 0.9% 100 mL 3.375 Gram, IV Piggyback, Q6HInt Continuous: (0) PRN: (18) acetaminophen 325 mg tab 650 mg 2 [...] 1 mg 1 mL, IV Push, Q6H magnesium sulfate 2 Gram 50 mL, IV [...] - Lung cancer adenocarcinoma / SNOMED CT 3611080442 / Confirmed Claustrophobia / SNOMED CT 34023016 / Confirmed Diabetes mellitus type II / SNOMED CT 94661760 / Confirmed Diverticulosis / SNOMED CT 1713418497 / Confirmed Shortness of breath / SNOMED CT 619476387 / Confirmed GERD - Gastro-esophageal reflux disease / SNOMED CT 6821430535 / Confirmed Hiatal hernia / SNOMED CT 263075526 / Confirmed History of obstructive sleep apnea / IMO 52888781 / Confirmed Inactive: Seasonal allergies / SNOMED CT 2347254008 Canceled: Chronic cough / SNOMED CT 482925032 Canceled: History of obstructive sleep apnea - no c-pap / IMO [id number] Canceled: History of obstructive sleep apnea / IMO 25975990 Canceled: Current every day smoker / SNOMED CT 1282385075, Active Problems (18) Arthritis Back pain CA - Lung cancer adenocarcinoma 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 Claustrophobia Coronary artery disease s/p OK Diabetes mellitus type II Diverticulosis GERD - Gastro-esophageal reflux disease H/O: TIA Hiatal hernia High blood pressure History of obstructive sleep apnea Hyperlipidemia Migraine Shortness of breath Sinusitis Sleep apnea no c-pap Physical Examination VS/Measurements Vitals Signs (last 24 hrs) Last Charted Minimum Maximum Temp 98.8 (DEC 07 04:00) 98.8 (DEC 07 04:00) 99.5 (DEC 06 11:30) Mon HR 88 (DEC 07 09:00) 66 (DEC 07 03:00) 129 (DEC 06 20:00) Resp Rate H 25 (DEC 07 09:00) H 21 (DEC 06 14:00) H 45 (DEC 06 20:00) SBP H 164 (DEC 07 08:00) 123 (DEC 06 17:00) H 185 (DEC 06 11:00) DBP 77 (DEC 07 08:00) L 56 (DEC 06 17:00) H 121 (DEC 06 21:00) MAP 111 (DEC 07 08:00) 81 (DEC 06 17:00) 132 (DEC 06 21:00) SpO2 98 (DEC 07 09:00) L 90 (DEC 06 20:00) 99 (DEC 07 08:09) 2LNC General: No acute distress, On room air. Eye: Pupils are equal, round and reactive to light, Normal conjunctiva. HENT: Normocephalic, Oral mucosa is moist. Neck: Supple, No lymphadenopathy. Respiratory: Breath sounds are equal, Respirations easy, nonlabored. No wheezing or rhonchi. Decreased bibasilarly.. Cardiovascular: Normal rate, No edema. Gastrointestinal: Soft, Non-tender, Non-distended, Normal bowel sounds. Integumentary: Warm, Dry, [place]. Neurologic: Alert, Oriented, No focal deficits. Psychiatric: Cooperative, Appropriate mood & affect. Abnormal / Psychotic thoughts: Hallucinations ( Auditory, Visual ). Review / Management Results review: Labs (Last four charted values) WBC 8.2 (DEC 07) 8.7 (NOV 16) 5.9 (NOV 15) 7.2 (DEC 04) HB L 9.3 (NOV 17) L 8.2 (NOV 16) L 8.6 (NOV 15) L 8.5 (NOV 14) HCT L 30.7 (NOV 17) L 25.9 (NOV 16) L 27.2 (NOV 15) L 27.4 (NOV 14) Plt L 103 (NOV 17) L 119 (NOV 16) 166 (NOV 15) 190 (NOV 14) Na 145 (NOV 17) 142 (NOV 16) 136 (NOV 15) 139 (NOV 15) K 3.9 (NOV 17) 3.6 (NOV 16) 4.0 (NOV 15) 3.9 (NOV 15) Cl 111 (NOV 17) 109 (NOV 16) 104 (NOV 15) 103 (NOV 15) CO2 31 (NOV 17) 29 (NOV 16) 27 (NOV 15) 28 (NOV 15) BUN H 31 (NOV 17) H 23 (NOV 16) 18 (NOV 15) 17 (NOV 15) Cr 0.80 (NOV 17) 0.80 (NOV 16) 0.80 (ANTHONY 15) 0.80 (NOV 15) Glu R H 122 (NOV 17) H 128 (NOV 16) H 166 (NOV 15) H 165 (NOV 15) Ca 9.7 (NOV 17) 8.9 (NOV 16) 8.6 (NOV 15) 8.8 (NOV 15) Lactic 1.6 (NOV 16) 1.7 (NOV 15) 1.2 (NOV 14) 0.6 (DEC 04) PT 10.7 (NOV 15) 10.3 (NOV 14) INR 1.0 (NOV 15) 1.0 (NOV 14) AST 28 (NOV 17) 23 (NOV 16) 19 (NOV 15) 23 (NOV 14) ALT 50 (NOV 17) 38 (NOV 16) 38 (NOV 15) 46 (DEC 04) ALK P 77 (NOV 17) 68 (NOV 16) 75 (NOV 15) 72 (DEC 04) T Bili 0.6 (NOV 17) 0.7 (NOV 16) 0.8 (NOV 15) 0.6 (DEC 04) PTN 7.7 (DEC 07) 6.8 (NOV 16) 6.7 (NOV 15) L 6.2 (DEC 04) ALB 3.5 (NOV 17) L 2.8 (NOV 16) L 2.5 (NOV 15) L 2.7 (DEC 04) Lipase 81 (DEC 04) Troponin H 0.070 (DEC 04) H 0.165 (DEC 04) . Blood Gases (Current Encounter/Past 24 Hours) No Blood Gas Results Found (Past 24 Hours) Radiology Results (Last 48 hours) [id number] -- 2020 00:20 CR Chest 1 Vw Portable (12/06/2020 04:25) [...] transcribed report. CR Chest 1 Vw Portable (12/07/2020 07:30) Result: CHEST SINGLE VIEWHISTORY: Shortness of breath.COMPARISON: Chest from 06 December 2020FINDINGS: Cardiac silhouette is of normal size. Surgical clips areidentified in the region of the AP window.Lungs are underinflated. Mild chronic changes are seen in both lungs. Mild scarring is noted at the lung bases.IMPRESSION:1. Mild bibasilar pulmonary scarring.Images reviewed, interpreted, and dictated by Lorenzo Buck MD Impression and Plan Pulmonary Nirra-ui-padsmst hypercapnic respiratory failure Intubated at OSH on 12/01/20 and extubated on 12/05/20 COPD, acute exacerbation, no PFTs for review pt with tobacco abuse history Lung adenocarcinoma with brain and abdominal metastases s/p ALINA lobectomy, chemotherapy (last treatment 11/28) Cardiovascular CAD History of OK HTN ID Acute UTI with Klebsiella pneumonia [...] getting her chemotherapy as mentioned above. PLAN: -Wean oxygen. Wean FiO2, for goal saturation >89%. On room air. -DuoNebs Q6hH/ Pulmicort nebs BID -IV Solu-Medrol 40mg Q12 -- changed to prednisone 40 mg daily today. 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 -Patient continues to have hallucinations and still persistent. We will start patient on Seroquel 25 mg twice daily for now awaiting psych evaluation. -Encourage IS. -Hemodynamics: Stable. -ID: Current antibiotics: Zosyn, Doxy Blood cultures: NGTD. Sputum cultures: Negative. MRSA screen: POSITIVE Urine culture: Klebsiella pneumoniae Pneumonia PCR panel: Negative. Trend procalcitonin, CBC w/diff -Cleared by speech and swallow evaluation team for oral diet. -Glycemic control: SSIq6 -Prophylaxis: Pepcid/Heparin SQ Q8 -Consult to psych place for evaluation. -Keep HOB elevated, lights on during the day. -Oncology following. Dr. Bergman is well aware of the case. CXR AM labs ordered. FULL CODE Prognosis: Guarded. Patient with acute confusion and hallucinations still ongoing. I saw and examined the patient at [...] spent on the patient excluding procedures - 32 min. documented in this encounter Plan of Treatment Upcoming Encounters Date Type Department Care Team (Late st Contact Info) Description 05/14/2025 8:00 AM EST Lab Patient Walk-In [facility] - [address] [facility] [address] [place] [address] 05/14/2025 8:30 AM EST Appointment [facility] [address] [place] [address] Neptali Bergman MD [address] [facility] [address] [place] [address] 05/14/2025 10:00 AM EST Appointment [facility] MRI - [address] [place] [address] Neptali Bergman MD [address] [facility] [address] [place] [address] 05/14/2025 2:15 PM EST Office Visit [facility] - [address] [place] [address] Neptali Bergman MD [address] [facility] [address] [place] [address] documented as of this encounter Visit Diagnoses Not on filedocumented in this encounter Care Teams Registration Clerk Relationship Specialty Start Date End Date Jonas Navas MD [address] [facility] [address] [place] [address] PCP - General Cardiothoracic Surgery 04/15/22 07/23/22 Marcell Uriostegui MD [address] [facility] [address] [place] [address] PCP - General Adolescent Medicine 07/24/22 04/05/23 Heidi Rivers, REVENUE LIAISON [address] [place] [address] PCP - General Nurse Practitioner 04/06/23 Neptali Bergman MD [address] [facility] [address] [place] [address] Hematology and Oncology 10/31/24 documented as of this encounter
--- OUTSIDE RECORDS SUMMARY | 2025-04-30 09:29 | XMS_ITS | Encounter Summary ---
Author Organization [employer] ([place], [place], [place], [place], [place]) Address [address] [place] [address] Care Team Providers Care Professor Of Music Name Role Phone Jonas Navas MD Primary Care Provider [phone] Marcell Uriostegui MD Primary Care Provider + [phone] Heidi Rivers APRN Primary Care Provider + [phone] Neptali Bergman MD Unavailable [phone] Encounter Details Date Type Department Care Team (Late st Contact Info) Description 12/06/[address] [facility] [place] [facility] [place] [address] ProviderJennifer MD [address] [place] [address] Social History Tobacco Use Types Packs/Day Years Used Date Smoking Tobacco: Never Assessed Comments Unknown Sex and Gender Information Value Date Recorded Sex Assigned at Not on file Legal Sex Female 1:09 PM CDT Gender Identity Not on file Sexual Orientation Not on file documented as of this encounter Miscellaneous Notes * Cerner Conversion Note - Jennifer ProviderMD - 12/06/2020 2:24 PM CDT On Going Discharge Planning Entered On: 12/06/2020 14:24 EDT Performed On: 12/06/2020 14:24 EDT by KISHORE MCKEON, RN-Staff PharmacistManager Social Services Progress Note Discharge Arrangements : Patient Post-Acute Information Patient Name: DHAVAL YEHYCRonen Hardwick Gender: Female : [birth year] Age: 65 Years No Post-Acute Placement(s) Listed No Post-Acute Service(s) Listed No Cur[place] Referral(s) Listed Discharge Options Discussed with Patient : Acute rehabilitation, Home Health, 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 : Yes KISHORE MCKEON, RN-Staff Pharmacist - 12/06/2020 14:24 EDT Narrative Progress Note Narrative Progress Note : RRS LOW, BOOST 4, LOS 2, ELOS 5 Acute resp failure/sats in mid 90s w/O2@2l/nc Diet upgraded to mech soft DCP: Home with HH, PLOF was independent with use of dme from [facility]. Inpt rehab may not be an option as Patient is on treatment for metastatic adenocarcinoma of the lung with Avastin, Alimta and carboplatin. Historical Progress Note : RRS LOW, BOOST 4, LOS 1, ELOS 5 Acute resp failure For possible extubation this 12/05 Tube feedings DCP: TBD, PLOF was independent with use of dme from [facility]. Will need pt/ot evals to assist with DCP. KISHORE MCKEON RN-Staff Pharmacist - 12/05/20 15:13:54 KISHORE MCKEON RN-Staff Pharmacist - 12/06/2020 14:24 EDT documented in this encounter Plan of Treatment Upcoming Encounters Date Type Department Care Team (Late st Contact Info) Description 05/14/2025 8:00 AM EST Lab Patient Walk-In [facility] - [address] [place] [address] 05/14/2025 8:30 AM EST Appointment [facility] CT - [address] [place] [address] Neptali Bergman MD [address] [place] [address] 05/14/2025 10:00 AM EST Appointment [facility] MRI - [address] [place] [address] Neptali Bergman MD [address] [facility] [address] [place] [address] 05/14/2025 2:15 PM EST Office Visit [facility] - [place] [address] [place] [address] Neptali Bergman MD [address] [facility] [address] [place] [address] documented as of this encounter Visit Diagnoses Not on filedocumented in this encounter Care Teams Professor Of Music Relationship Specialty Start Date End Date Jonas Navas MD [address] [facility] [address] [place] [address] PCP - General Cardiothoracic Surgery 04/15/22 07/23/22 Marcell Uriostegui MD [address] [place] [address] [place] [address] PCP - General Adolescent Medicine 07/24/22 04/05/23 Heidi Rivers, GRAPHIC DESIGN SPECIALIST [address] [facility] [address] [place] [address] PCP - General Nurse Practitioner 04/06/23 Neptali Bergman MD [address] [facility] [address] [place] [address] Hematology and Oncology 10/31/24 documented as of this encounter
--- OUTSIDE RECORDS SUMMARY | 2025-04-30 09:29 | XMS_ITS | Encounter Summary ---
Author Organization [employer] ([place], [place], [place], [place], [place]) Address [address] [place] [address] Care Team Providers Care Vice President Consulting Services Name Role Phone Jonas Navas MD Primary Care Provider [phone] Marcell Uriostegui MD Primary Care Provider + [phone] Heidi Rivers APRN Primary Care Provider [phone] Neptali Bergman MD Unavailable [phone] Encounter Details Date Type Department Care Team (Late st Contact Info) Description 2020 Transcribed Document [facility] [place] [facility] [place] [address] ProviderJennifer MD [address] [place] [address] Social History Tobacco Use Types Packs/Day Years Used Date Smoking Tobacco: Never Assessed Comments Unknown Sex and Gender Information Value Date Recorded Sex Assigned at Not on file Legal Sex Female 1:09 PM CDT Gender Identity Not on file Sexual Orientation Not on file documented as of this encounter Miscellaneous Notes * Cerner Conversion Note - Jennifer ProviderMD - 2020 1:15 AM CDT Pain Assessment Entered On: 12/06/2020 5:47 EDT Performed On: 12/05/2020 22:22 EDT by Chato Cedeno, Rn Intervention Information: morphine Performed by Chato Cedeno, Rn on 12/05/2020 21:52:00 EDT morphine,2mg IV Push,Right Hand,Pain (Severe 7-10) Pain Assessment Pain Assessment : Follow-up assessment Pain Scale Goal : 2 Pain Scale Used : 0-10 Scale Chato Cedeno Rn - 12/06/2020 5:47 EDT Pain Scale Intensity : 5 Chato Cedeno Rn - 12/06/2020 5:47 EDT Image 4 - Images currently included in the form version of this document have not been included in the text rendition version of the form. documented in this encounter Plan of Treatment Upcoming Encounters Date Type Department Care Team (Late st Contact Info) Description 05/14/2025 8:00 AM EST Lab Patient Walk-In [facility] - [place] [address] [place] [address] 05/14/2025 8:30 AM EST Appointment [facility] CT - [facility] [address] [facility] [address] [place] [address] Neptali Bergman MD [address] [place] [address] [address] [place] [address] 05/14/2025 10:00 AM EST Appointment [facility] MRI - [facility] [address] [facility] [address] [place] [address] Neptali Bergman MD [address] [place] [address] [address] [place] [address] 05/14/2025 2:15 PM EST Office Visit [facility] - [place] [address] [place] [address] Neptali Bergman MD [address] [place] [address] [address] [place] [address] documented as of this encounter Visit Diagnoses Not on filedocumented in this encounter Care Teams Vice President Consulting Services Relationship Specialty Start Date End Date Jonas Navas MD [address] [facility] [address] [place] [id number] PCP - General Cardiothoracic Surgery 04/15/22 07/23/22 Marcell Uriostegui MD [address] [place] [address] [place] [address] PCP - General Adolescent Medicine 07/24/22 04/05/23 Heidi Rivers APRN [address] [facility] [address] [place] [address] PCP - General Nurse Practitioner 04/06/23 Neptali Bergman MD [address] [facility] [address] [place] [address] Hematology and Oncology 10/31/24 documented as of this encounter
--- OUTSIDE RECORDS SUMMARY | 2025-04-30 09:29 | XMS_ITS | Encounter Summary ---
Author Organization [employer] ([place], [place], [place], [place], [place]) Address [address] [place] [address] Care Team Providers Care Sugar Laboratory Assistant Name Role Phone Jonas Navas MD Primary Care Provider [phone] Marcell Uriostegui MD Primary Care Provider + [phone] Heidi Rivers APRN Primary Care Provider + [phone] Neptali Bergman MD Unavailable [phone] Encounter Details Date Type Department Care Team (Late st Contact Info) Description 12/05/2020 Transcribed Document [facility] [place] [facility] [place] [address] ProviderJennifer MD [address] [place] [address] Social History Tobacco Use Types Packs/Day Years Used Date Smoking Tobacco: Never Assessed Comments Unknown Sex and Gender Information Value Date Recorded Sex Assigned at Not on file Legal Sex Female 1:09 PM CDT Gender Identity Not on file Sexual Orientation Not on file documented as of this encounter Miscellaneous Notes * Cerner Conversion Note - Jennifer ProviderMD - 12/05/2020 7:00 AM CDT UM Authorization Entered On: 12/05/2020 7:02 EDT Performed On: 12/05/2020 7:00 EDT by Macy Costello, Criminology Professor Primary Insurance Authorization Authorization and Policy Numbers : Insurance 1 Health Plan: [employer] PPO Policy Number: [id number] Authorization Number: Insurance 2 Health Plan: ANTHEM HMOPPO Policy Number: [id number] Authorization Number: Insurance Primary Name : [employer] PPO - [id number] Authorization Status-Primary : Notification only Auth/Referral Contact Name-Primary : Reference Number-Primary : [id number] Authorization Number-Primary : [id number] Authorized Service Begin Date-Primary : 12/03/2020 EDT Authorization Comments-Primary : Authorized per email from Juan Leonard RN. Historical Authorization Comments-Primary : Comment 1: Pending ref no per [employer]. Clinicals faxed via [employer] for IP approval (CICI DIAZ RN 2020 14:08) Comment 2: Insurance inactive per [employer], em to [place] to verify (CICI DIAZ RN 2020 11:20) Macy Costello, Criminology Professor - 12/05/2020 7:00 EDT Secondary Insurance Authorization Authorization and Policy Numbers : Insurance 1 Health Plan: [employer] PPO Policy Number: [id number] Authorization Number: Insurance 2 Health Plan: ANTHEM HMOPPO Policy Number: [id number] Authorization Number: Insurance Secondary Name : ANTHKEEGAN HMOPPO - [id number] Historical Authorization Comments-Secondary : No Authorization Comments Found Macy Costello, Criminology Professor - 12/05/2020 7:00 EDT Electronically signed by Kolby Catalan Conversion Electrical Accessories Assembler Cerner at 09/10/2022 12:30 AM CDT documented in this encounter Plan of Treatment Upcoming Encounters Date Type Department Care Team (Late st Contact Info) Description 05/14/2025 8:00 AM EST Lab Patient Walk-In [facility] - [place] [address] [facility] [address] [place] [address] 05/14/2025 8:30 AM EST [facility]ment [facility] [address] [facility] [address] [place] [address] Neptali Bergman MD [address] [facility] [address] [place] [address] 05/14/2025 10:00 AM EST Appointment [facility] MRI - [address] [place] [address] Neptali Bergman MD [address] [facility] [address] [place] [address] 05/14/2025 2:15 PM EST Office Visit [facility] - [address] [facility] [address] [place] [address] Neptali Bergman MD [address] [facility] [address] [place] [address] documented as of this encounter Visit Diagnoses Not on filedocumented in this encounter Care Teams Sugar Laboratory Assistant Relationship Specialty Start Date End Date Jonas Navas MD [address] [facility] [address] [place] [address] PCP - General Cardiothoracic Surgery 04/15/22 07/23/22 Marcell Uriostegui MD [address] [place] [address] [place] [address] PCP - General Adolescent Medicine 07/24/22 04/05/23 Heidi Rivers, HEEL CEMENTER MACHINE [address] [facility] [address] [place] [address] PCP - General Nurse Practitioner 04/06/23 Neptali Bergman MD [address] [place] [address] [address] [place] [address] Hematology and Oncology 10/31/24 documented as of this encounter
--- OUTSIDE RECORDS SUMMARY | 2025-04-30 09:29 | XMS_ITS | Encounter Summary ---
Author Organization [employer] ([place], [place], [place], [place], [place]) Address [address] [place] [address] Care Team Providers Care Floor Space Allocator Name Role Phone Jonas Navas MD Primary Care Provider [phone] Marcell Uriostegui MD Primary Care Provider + [phone] Heidi Rivers APRN Primary Care Provider + [phone] Neptali Bergman MD Unavailable [phone] Encounter Details Date Type Department Care Team (Late st Contact Info) Description 07/27/2019 Transcribed Document [facility] Family Medicine [facility] [place] [address] ProviderJennifer MD [address] [place] [address] Social History Tobacco Use Types Packs/Day Years Used Date Smoking Tobacco: Never Assessed Comments Unknown Sex and Gender Information Value Date Recorded Sex Assigned at Not on file Legal Sex Female 1:09 PM CDT Gender Identity Not on file Sexual Orientation Not on file documented as of this encounter Miscellaneous Notes * Cerner Conversion Note - Jennifer ProviderMD - 07/27/2019 5:00 PM SUPERINTENDENT POWER Chart Check - Review Order Profile Entered On: 07/27/2019 16:51 EST Performed On: 07/27/2019 17:00 EST by CHERI MUNIZ RN Chart Check Powerplans Initiated/Discontinued as Appropriate : Yes All Active Orders Reviewed : Yes CHERI MUNIZ RN - 07/27/2019 16:51 EST Electronically signed by [facility]sein [facility] Conversion Chamber Walker Cerner at 09/10/2022 12:44 AM CDT documented in this encounter Plan of Treatment Upcoming Encounters Date Type Department Care Team (Late st Contact Info) Description 05/14/2025 8:00 AM EST Lab Patient Walk-In [facility] - [address] [place] [address] 05/14/2025 8:30 AM EST Appointment [facility] [address] [place] [address] Neptali Bergman MD [address] [place] [address] 05/14/2025 10:00 AM EST Appointment [facility] MRI - [address] [place] [address] Neptali Bergman MD [address] [place] [address] 05/14/2025 2:15 PM EST Office Visit [facility] - [address] [place] [address] Neptali Bergman MD [facility] [address] [place] [address] documented as of this encounter Visit Diagnoses Not on filedocumented in this encounter Care Teams Floor Space Allocator Relationship Specialty Start Date End Date Jonas Navas MD [address] [facility] [address] [place] [address] PCP - General Cardiothoracic Surgery 04/15/22 07/23/22 Marcell Uriostegui MD [address] [place] [address] [place] [address] PCP - General Adolescent Medicine 07/24/22 04/05/23 Heidi Rivers CUSTOMS AGENT 2017 [facility] [address] [place] [address] PCP - General Nurse Practitioner 04/06/23 Neptali Bergman MD [address] [facility] [address] [place] [address] Hematology and Oncology 10/31/24 documented as of this encounter
--- OUTSIDE RECORDS SUMMARY | 2025-04-30 09:29 | XMS_ITS | Encounter Summary ---
Author Organization [employer] ([place], [place], [place], [place], [place]) Address [address] [place] [address] Care Team Providers Care Bill Cutter Name Role Phone Jonas Navas MD Primary Care Provider [phone] Marcell Uriostegui MD Primary Care Provider + [phone] Heidi Rivers APRN Primary Care Provider + [phone] Neptali Bergman MD Unavailable [phone] Encounter Details Date Type Department Care Team (Late st Contact Info) Description 12/07/2020 Transcribed Document [facility] [place] [facility] [place] [address] ProviderJennifer MD [address] [place] [address] Social History Tobacco Use Types Packs/Day Years Used Date Smoking Tobacco: Never Assessed Comments Unknown Sex and Gender Information Value Date Recorded Sex Assigned at Not on file Legal Sex Female 1:09 PM CDT Gender Identity Not on file Sexual Orientation Not on file documented as of this encounter Miscellaneous Notes * Cerner Conversion Note - Jennifer ProviderMD - 12/07/2020 5:59 AM CDT Consult Phone Call Documentation Entered On: 12/07/2020 17:54 EDT Performed On: 12/07/2020 5:59 EDT by Riddhi English Care Asst-Health Unit Coord Phone Call for Consults Consult Phone Call/Page Attempt : First call Consult Reason : hallucinations/delirium Physician Requesting Consult : ELLYN NEVAREZ MD Physician Requested for Consult : RICKY MONDRAGON MD-PSY Provider Team Notified Name : Psychiatry Consult, Additional Information : Dr. Mondragon was not available to take the consult due to being a weekend and being away on vacation per Karma our manager case for the day. She told me there was nothing else to do about the consult which was passed on to the pt's nurse Shalini. Riddhi English, Medication Specialist-Health Unit Coord - 12/07/2020 17:52 EDT Electronically signed by [facility] Conversion Dungeon Master Cerner at 09/10/2022 12:34 AM CDT documented in this encounter Plan of Treatment Upcoming Encounters Date Type Department Care Team (Late st Contact Info) Description 05/14/2025 8:00 AM EST Lab Patient Walk-In [facility] - [address] [place] [address] 05/14/2025 8:30 AM EST Appointment [facility] [address] [facility] [address] [place] [address] Neptali Bergman MD [address] [place] [address] [address] [place] [address] 05/14/2025 10:00 AM EST Appointment [facility] MRI - [address] [facility] [address] [place] [address] Neptali Bergman MD [facility] [address] [place] [address] 05/14/2025 2:15 PM EST Office Visit [facility] - [address] [place] [address] Neptali Bergman MD [facility] [address] [place] [address] documented as of this encounter Visit Diagnoses Not on filedocumented in this encounter Care Teams Bill Cutter Relationship Specialty Start Date End Date Jonas Navas MD [address] [facility] [address] [place], [place] [id number] PCP - General Cardiothoracic Surgery 04/15/22 07/23/22 Marcell Uriostegui MD [address] [facility] [address] [place] [address] PCP - General Adolescent Medicine 07/24/22 04/05/23 Heidi Rivers APRN [address] [facility] [address] [place] [address] PCP - General Nurse Practitioner 04/06/23 Neptali Bergman MD [address] [facility] [address] [place] [address] Hematology and Oncology 10/31/24 documented as of this encounter
--- OUTSIDE RECORDS SUMMARY | 2025-04-30 09:29 | XMS_ITS | Encounter Summary ---
Author Organization [employer] ([place], [place], [place], [place], [place]) Address [address] [place] [address] Care Team Providers Care Ski Molder Name Role Phone Jonas Navas MD Primary Care Provider [phone] Marcell Uriostegui MD Primary Care Provider + [phone] Heidi Rivers APRN Primary Care Provider + [phone] Neptail Bergman MD Unavailable [phone] Encounter Details Date Type Department Care Team (Late st Contact Info) Description 07/29/2019 Transcribed Document [facility] [place] [address] ProviderJennifer MD [address] [place] [address] Social History Tobacco Use Types Packs/Day Years Used Date Smoking Tobacco: Never Assessed Comments Unknown Sex and Gender Information Value Date Recorded Sex Assigned at Not on file Legal Sex Female 1:09 PM CDT Gender Identity Not on file Sexual Orientation Not on file documented as of this encounter Miscellaneous Notes * Cerner Conversion Note - Jennifer ProviderMD - 07/29/2019 5:00 PM LAWNMOWER MECHANIC Chart Check - Review Order Profile Entered On: 07/29/2019 18:56 EST Performed On: 07/29/2019 17:00 EST by Lynette Malloy, RN Chart Check All Active Orders Reviewed : Yes Lynette Malloy RN - 07/29/2019 18:56 EST Electronically signed by [facility] Conversion Edi Developer Cerner at 09/10/2022 12:36 AM CDT documented in this encounter Plan of Treatment Upcoming Encounters Date Type Department Care Team (Late st Contact Info) Description 05/14/2025 8:00 AM EST Lab Patient Walk-In [facility] - [address] [place] [address] 05/14/2025 8:30 AM EST Appointment [facility] Imaging CT - [address] [place] [address] [place] [address] [place] [address] [address] [place] [address] 05/14/2025 10:00 AM EST Appointment [facility] MRI - [address] [place] [address] Neptali Bergman MD [address] [facility] [address] [place] [address] 05/14/2025 2:15 PM EST Office Visit [facility] - [address] [place] [address] [place] [address] [place] [address] [address] [place] [address] documented as of this encounter Visit Diagnoses Not on filedocumented in this encounter Care Teams Ski Molder Relationship Specialty Start Date End Date Jonas Navas MD [address] [facility] [address] [place] [address] PCP - General Cardiothoracic Surgery 04/15/22 07/23/22 Marcell Uriostegui MD [address] [place] [address] PCP - General Adolescent Medicine 07/24/22 04/05/23 Heidi Rivers, ROMERO [address] [facility] [address] [place] [address] PCP - General Nurse Practitioner 04/06/23 Neptali Bergman MD [address] [facility] [address] [place] [address] Hematology and Oncology 10/31/24 documented as of this encounter
--- OUTSIDE RECORDS SUMMARY | 2025-04-30 09:29 | XMS_ITS | Encounter Summary ---
Author Organization [employer] ([place], [place], [place], [place], [place]) Address [address] [place] [address] Care Team Providers Care Fitter Helper Name Role Phone Jonas Navas MD Primary Care Provider [phone] Marcell Uriostegui MD Primary Care Provider + [phone] Heidi Rivers APRN Primary Care Provider + [phone] Neptali Bergman MD Unavailable [phone] Encounter Details Date Type Department Care Team (Late st Contact Info) Description 12/07/2020 Transcribed Document [facility] [place] [facility] [place] [address] ProviderJennifer MD [address] [place] [address] Social History Tobacco Use Types Packs/Day Years Used Date Smoking Tobacco: Never Assessed Comments Unknown Sex and Gender Information Value Date Recorded Sex Assigned at Not on file Legal Sex Female 1:09 PM CDT Gender Identity Not on file Sexual Orientation Not on file documented as of this encounter Miscellaneous Notes * Cerner Conversion Note - Jennifer ProviderMD - 12/07/2020 1:00 AM CDT Spiritual Care Assessment Entered On: 12/07/2020 5:53 EDT Performed On: 12/07/2020 1:00 EDT by Lucius Soliz Chaplain-Non Cert General Information Initial Visit : Yes Referred by : Nurse Ministry Provided to : Patient Spiritual Framework : Somewhat integrated, provides some strength/resource Active in a Adventist/Myrtle Group : Yes Catholic Preference : Presbyterian Lucius Soliz Chaplain-Non Cert - 12/07/2020 5:47 EDT Spiritual Assessment Spiritual Assessment Comment/Summary Points : Pt struggling with hallucinations and difficulty trusting staff. Public Accountant prayed with patient for her health, emotional distress and for the hallucinations to stop. PT stated that she has not slept in two days. Public Accountant prayed for Pt to be able to sleep. Pt was receptive of pastoral care but appeared dispondant and emotionally overwhelmed by her situation. Public Accountant offered future support as needed. Spirital Assessment Comment/Summary Report : SPIRITUAL ASSESSMENT COMMENT/SUMMARY No qualifying data available. Lucius Soliz Chaplain-Non Cert - 12/07/2020 5:47 EDT Interventions Emotional Support : Empathic/Engaged listening, Established trust Spiritual and Catholic : Verify myrtle group connection, [place]/Ritual provided, Prayer shared Lucius Soliz Chaplain-Non Cert - 12/07/2020 5:47 EDT documented in this encounter Plan of Treatment Upcoming Encounters Date Type Department Care Team (Late st Contact Info) Description 05/14/2025 8:00 AM EST Lab Patient Walk-In [facility] [address] [facility] [address] [place] [address] 05/14/2025 8:30 AM EST Appointment [facility] CT - [address] [facility] [address] [place] [address] Neptali Bergman MD [address] [place] [address] [address] [place] [address] 05/14/2025 10:00 AM EST Appointment [facility] MRI - [facility] [address] [facility] [address] [place] [address] Neptali Bergman MD [address] [place] [address] [address] [place] [address] 05/14/2025 2:15 PM EST Office Visit [facility] - [address] [place] [address] Neptali Bergman MD [address] [facility] [address] [place] [address] documented as of this encounter Visit Diagnoses Not on filedocumented in this encounter Care Teams Fitter Helper Relationship Specialty Start Date End Date Jonas Navas MD [address] [facility] [address] [place], [place] [id number] PCP - General Cardiothoracic Surgery 04/15/22 07/23/22 Marcell Uriostegui MD [address] [facility] [address] [place] [address] PCP - General Adolescent Medicine 07/24/22 04/05/23 Heidi Rivers, REHAB SPEC 2017 [facility] [address] [place] [address] PCP - General Nurse Practitioner 04/06/23 Neptali Bergman MD [address] [facility] [address] [place] [address] Hematology and Oncology 10/31/24 documented as of this encounter
--- OUTSIDE RECORDS SUMMARY | 2025-04-30 09:29 | XMS_ITS | Encounter Summary ---
Author Organization [employer] ([place], [place], [place], [place], [place]) Address [address] [place] [address] Care Team Providers Care Pattern Hanger Name Role Phone Jonas Navas MD Primary Care Provider [phone] Marcell Uriostegui MD Primary Care Provider + [phone] Heidi Rivers APRN Primary Care Provider + [phone] Neptali Bergman MD Unavailable [phone] Encounter Details Date Type Department Care Team (Late st Contact Info) Description 07/27/2019 Transcribed Document [facility] [place] [facility] [place] [address] ProviderJennifer MD [address] [place] [address] Social History Tobacco Use Types Packs/Day Years Used Date Smoking Tobacco: Never Assessed Comments Unknown Sex and Gender Information Value Date Recorded Sex Assigned at Not on file Legal Sex Female 1:09 PM CDT Gender Identity Not on file Sexual Orientation Not on file documented as of this encounter Miscellaneous Notes * Cerner Conversion Note - Jennifer ProviderMD - 07/27/2019 4:59 PM PROPERTY UTILIZATION MANAGER Treatment Intervention, PT Entered On: 08/02/2019 10:02 EDT Performed On: 08/02/2019 9:30 EDT by Cristal Medina, PT Student General Information, PT Visit Type, PT : Treatment Note Cristal Medina, PT Student - 08/02/2019 10:02 EDT Patient Orders : Order Date Order Ordering 07/26/2019 09:57 Consult to Physical Therapy Ordered By: TIERRA VASQUEZ PA 07/27/2019 16:59 Physical Therapy Additional Tx Ordered By: TAMMY BELLE PT Active Diagnoses : 07/26/2019 12:00 Atherosclerotic heart disease of [place] coronary artery without angina pectoris 07/26/2019 12:00 Chronic obstructive pulmonary disease, unspecified 07/26/2019 12:00 Essential (primary) hypertension 07/26/2019 12:00 Gastro-esophageal reflux disease without esophagitis 07/26/2019 12:00 Hyperlipidemia, unspecified 07/26/2019 12:00 Malignant neoplasm of unspecified part of left bronchus or lung 07/26/2019 12:00 Nicotine dependence unspecified, with withdrawal 07/26/2019 12:00 Sleep apnea, unspecified 07/26/2019 12:00 Transient cerebral ischemic attack, unspecified 07/26/2019 12:00 Type 2 diabetes mellitus without complications 07/26/2019 12:00 Unspecified chronic bronchitis CURT MAN, PT - 08/02/2019 11:06 EDT Therapy Diagnosis, PT : functional decline after thoracic surgery Onset of Problem, PT : 07/25/2019 EST Cristal Medina, PT Student - 08/02/2019 10:02 EDT Admission Date : 07/25/2019 07:00 Personal Devices : Personal Devices No Devices Recorded Assistive Devices : Assistive Devices No Devices Recorded CURT MAN, PT - 08/02/2019 11:06 EDT General Status Patient Received Status : Sitting edge of bed Treatment Start Time : 08/02/2019 9:17 EDT Patient Left Status : Sitting edge of bed, All needs met and within reach Treatment End Time : 08/02/2019 9:30 EDT Treatment Time : 13 Minute(s) Cristal Medina, PT Student - 08/02/2019 10:02 EDT Functional Mobility Sit to Stand Device : None, Belt, gait Stand to Sit Device : None, Belt, gait Cristal Medina, PT Student - 08/02/2019 10:03 EDT Cristal Medina, PT Student - 08/02/2019 10:03 EDT Mobility Grid Sit to Stand : Rehab Modified independence Stand to Sit : Rehab Modified independence Cristal Medina, PT Student - 08/02/2019 10:02 EDT Gait Training/Assessment, PT Weight Bearing Status : Full Gait Assistance Level : Supervision Walking Distance : 500' Ambulatory Devices : None, Gait belt Gait Deviations : Yes Left Lower Gait Deviation : Sushma, decreased Right Lower Gait Deviation : Sushma, decreased Cristal Medina, PT Student - 08/02/2019 10:03 EDT Cognitive Treatment, PT Safety/Judgment Findings, PT : Intact Follows Basic Command Findings, PT : Intact Attention Findings, PT : Alert Cristal Medina, PT Student - 08/02/2019 10:03 EDT Edu Topics Physical Therapy Education Grid Bed Mobility Training : Verbalizes understanding, Returns demonstration Gait Training : Verbalizes understanding, Returns demonstration, Needs further teaching Role of Physical Therapy : Verbalizes understanding Safety : Verbalizes understanding, Returns demonstration Transfer Training : Verbalizes understanding, Returns demonstration, Needs further teaching Cristal Medina PT Student - 08/02/2019 10:03 EDT Indication Assesessment, PT Physical Therapy Indicated : Yes Cristal Medina PT Student - 08/02/2019 10:03 EDT Plan of Care, PT PT Tx Plan/Goals Established w Patient : Yes Cristal Medina PT Student - 08/02/2019 10:03 EDT Short Term Goals Mobility/Bed Mobility STG PT Grid Goal #1 Activity : Supine to sit Assist : Independent, modified Equipment : Bed, hospital Date to Meet : 08/03/2019 EDT Goal Status : Goal met Date Met : 08/02/2019 EDT Cristal Medina PT Student - 08/02/2019 10:05 EDT Ambulation STG Grid Goal #1 Device : Walker, front wheel Distance : 150 ft w/O2 sats >87% Assist : Supervision or set-up Date to Meet : 08/03/2019 EDT Goal Status : Progressing, continue Cristal Medina, PT Student - 08/02/2019 10:03 EDT Fdc Goals Mobility/Bed Mobility LTG PT Grid Goal #1 Activity : Sit to stand Assist : Independent, modified Equipment : Walker, front wheel Date to Meet : 08/10/2019 EDT Goal Status : Goal met Cristal Medina PT Student - 08/02/2019 10:05 EDT Ambulation LTG Grid Goal #1 Device : Walker, front wheel Distance : 375 ft w/O2 sats >87% Assist : Supervision or set-up Date to Meet : 08/10/2019 EDT Goal Status : Progressing, continue Cristal Medina, PT Student - 08/02/2019 10:05 EDT Treatment Note Subjective Comment : Patient agreed to PTx. RN Heidi victoria PTx. Discussed with immigration case worker Mi: during ambulation, patient's SpO2 ranged from 86-90% while on 2L of O2. Discussed potential need for supplemental O2 following discharge to home. When in sitting in room still on 2L of O2, patient was at 90-91%. Discussed with patient and : use of caution with mobility at home. Patient is cautious with ambulation during therapy, and needs to carry this over to home. Patient's Response to Treatment : Very agreeable/motivated for mobility. Assessment : Patient completed 1 short-term goal and 1 long-term goal related to bed mobility. Patient maintained ability to ambulate appropriately without assistive device, but is still cautious. Patient still shows deficits in gait and endurance. Patient will continue to benefit from skilled therapy services. Cristal Medina PT Student - 08/02/2019 10:05 EDT Plan for Treatment : Continue on current POC. PT has reviewed and agrees with note. CURT MAN, PT - 08/02/2019 11:06 EDT Pain Assessment Pain Scaled Used : 0-10 Pain scale Pain Score Pre-Intervention : 0 Cristal Medina PT Student - 08/02/2019 10:03 EDT Image 1 - Images currently included in the form version of this document have not been included in the text rendition version of the form. Anticipated Discharge Needs, OT/PT Anticipated Discharge to : Home, with family care, Home, with home health (Comment: level 1 [Cristal Medina PT Student - 08/02/2019 11:06 EDT] ) Anticipated Home Equipment : None Recommend Continued Therapy at Discharge : Yes Cristal Medina PT Student - 08/02/2019 10:[address] [facility] PT Charges PT Ther Activities Ea 15 Min : 1 Cristal Medina PT Student - 08/02/2019 10:03 EDT documented in this encounter Plan of Treatment Upcoming Encounters Date Type Department Care Team (Late st Contact Info) Description 05/14/2025 8:00 AM EST Lab Patient Walk-In [facility] - [address] [place] [address] 05/14/2025 8:30 AM EST Appointment [facility] Regional Imaging CT - [address] [place] [address] Neptali Bergman MD [address] [place] [address] [address] [place] [address] 05/14/2025 10:00 AM EST Appointment [facility] MRI - [address] [place] [address] Neptali Bergman MD [address] [place] [address] [address] [place] [address] 05/14/2025 2:15 PM EST Office Visit [facility] - [address] [place] [address] Neptali Bergman MD [address] [place] [address] [address] [place] [address] documented as of this encounter Visit Diagnoses Not on filedocumented in this encounter Care Teams Pattern Hanger Relationship Specialty Start Date End Date Jonas Navas MD [address] [facility] [address] [place] [address] PCP - General Cardiothoracic Surgery 04/15/22 07/23/22 Marcell Uriostegui MD [address] [facility] [address] [place] [address] PCP - General Adolescent Medicine 07/24/22 04/05/23 Heidi Rivers, BALANCER SCALE [address] [facility] [address] [place] [address] PCP - General Nurse Practitioner 04/06/23 [place] [address] [place] [address] [address] [place] [address] Hematology and Oncology 10/31/24 documented as of this encounter
--- OUTSIDE RECORDS SUMMARY | 2025-04-30 09:29 | XMS_ITS | Encounter Summary ---
Author Organization [employer] ([place], [place], [place], [place], [place]) Address [address] [place] [address] Care Team Providers Care Integration Director Name Role Phone Jonas Navas MD Primary Care Provider [phone] Marcell Uriostegui MD Primary Care Provider + [phone] Heidi Rivers APRN Primary Care Provider + [phone] Neptali Bergman MD Unavailable [phone] Encounter Details Date Type Department Care Team (Late st Contact Info) Description 12/06/2020 Transcribed Document [facility] [place] Family Medicine [facility] [place] [address] ProviderJennifer MD [address] [place] [address] Social History Tobacco Use Types Packs/Day Years Used Date Smoking Tobacco: Never Assessed Comments Unknown Sex and Gender Information Value Date Recorded Sex Assigned at Not on file Legal Sex Female 1:09 PM CDT Gender Identity Not on file Sexual Orientation Not on file documented as of this encounter Miscellaneous Notes * Cerner Conversion Note - Historical ProviderMD - 12/06/2020 3:00 AM CDT Nutrition Assessment Entered On: 12/06/2020 8:15 EDT Performed On: 12/06/2020 11:47 EDT by ELDON KRISHNAMURTHY RD, LD Nutrition Assessment Current Nutrition Regimen Comment : 12/06: TF f/u. Pt was extubated yesterday and passed swallow eval today. TF was not started yesterday d/t extubation. 12/04: RD screen. Pt with h/o lung CA, intubated d/t resp failure. Noted pt currently with NG to LWS. 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, HTN, HL, CAD, COPD, DM, GERD, ALINA lobectomy GI: (+) BS, LBM lighter captain Skin: WNLs Labs:Gluc 128, Alb 2.8, LAC 1.6, FSB, 134, 137, A1c 7.5% Meds: abx, ssi, solu-medrol, ppi Diet: Regular, NT liqs PO intake: establishing Ht: 154.9 cm (obtained from previous admission) Wt: 81 kgm 84 kg (12/06) IBW: 47.7 kg (170%) BMI: 33.6 Est Energy Needs: 9750-3125 kcal/day (11-14 kcal/kg ABW) and 95+ g protein/day (2.0+ g/kg IBW) ELDON KRISHNAMURTHY RD, BEATRIS - 12/06/2020 11:51 EDT Nutrition Assessment Reason : Follow Up, Nutrition support ELDON KRISHNAMURTHY RD, BEATRIS - 12/06/2020 8:15 EDT Nutrition Diagnoses Oral or Nutrition Support Intake : Inadequate oral intake Oral or Nutr Support Intake Related To : intubation s/p extubated Oral or Nutr Support Intake Evidenced by : pt started po diet (establishing intake) Oral or Nutrition Support Intake Status : Active ELDON KRISHNAMURTHY RD, BEATRIS - 12/06/2020 11:43 EDT Nutrition Interventions Meals and Snacks : General/Healthful diet, Liquid consistency-nectar thick liquids Nutrition Supplement Therapy : Commercial beverage ELDON KRISHNAMURTHY RD, BEATRIS - 12/06/2020 11:43 EDT Monitoring/Evaluation Energy Intake : Total energy intake Food Intake : Amount of food Protein Intake : Total protein Weight Status : Weight Maintanence Gastrointestinal Function : Bowel Function ELDON KRISHNAMURTHY RD, BEATRIS - 12/06/2020 11:43 EDT Nutrition Recommendations Dietitian Recommendations : 1. Continue regular, NT liqs diet per DOT ETCHER. RD to add 60 gram consistent carb. THONY to send CUONG GILMANIsai. Goal: >50% meals/ONS 2. Monitor weight 1x/week Goal: no significant wt loss Risk- High ELDON KRISHNAMURTHY, RD, LD - 12/06/2020 11:50 EDT Electronically signed by Hossein, [facility] Conversion Hairpiece Stylist Cerner at 09/10/2022 12:32 AM CDT documented in this encounter Plan of Treatment Upcoming Encounters Date Type Department Care Team (Late st Contact Info) Description 05/14/2025 8:00 AM EST Lab Patient Walk-In [facility] - [place] [address] [place] [address] 05/14/2025 8:30 AM EST Appointment [facility] [address] [place] [address] Neptali Bergman MD [address] [place] [address] [address] [place] [address] 05/14/2025 10:00 AM EST Appointment [facility] MRI - [address] [facility] [address] [place] [address] Neptali Bergman MD [address] [place] [address] [address] [place] [address] 05/14/2025 2:15 PM EST Office Visit [facility] - [place] [address] [place] [address] Neptali Bergman MD [address] [place] [address] [address] [place] [address] documented as of this encounter Visit Diagnoses Not on filedocumented in this encounter Care Teams Integration Director Relationship Specialty Start Date End Date Jonas Navas MD [address] [facility] [address] [place] [address] PCP - General Cardiothoracic Surgery 04/15/22 07/23/22 Marcell Uriostegui MD [address] [place] [address] [place] [address] PCP - General Adolescent Medicine 07/24/22 04/05/23 Heidi Rivers, INSURANCE COMPLIANCE ANALYST [address] [facility] [address] [place] [address] PCP - General Nurse Practitioner 04/06/23 Neptali Bergman MD [address] [facility] [address] [place] [address] Hematology and Oncology 10/31/24 documented as of this encounter
--- OUTSIDE RECORDS SUMMARY | 2025-04-30 09:29 | XMS_ITS | Encounter Summary ---
Author Organization [employer] ([place], [place], [place], [place], [place]) Address [address] [place] [address] Care Team Providers Care Contracting Support Specialist Name Role Phone Jonas Navas MD Primary Care Provider [phone] Marcell Uriostegui MD Primary Care Provider + [phone] Heidi Rivers APRN Primary Care Provider + [phone] Neptali Bergman MD Unavailable [phone] Encounter Details Date Type Department Care Team (Late st Contact Info) Description 12/07/2020 Transcribed Document [facility] [place] Family Medicine [facility] [place] [address] ProviderJennifer MD [address] [place] [address] Social History Tobacco Use Types Packs/Day Years Used Date Smoking Tobacco: Never Assessed Comments Unknown Sex and Gender Information Value Date Recorded Sex Assigned at Not on file Legal Sex Female 1:09 PM CDT Gender Identity Not on file Sexual Orientation Not on file documented as of this encounter Miscellaneous Notes * Cerner Conversion Note - Jennifer ProviderMD - 12/07/2020 1:36 PM CDT On Going Discharge Planning Entered On: 12/07/2020 13:38 EDT Performed On: 12/07/2020 13:36 EDT by ADRIAN VALLES, Product Marketer Care Management Progress Note Discharge Arrangements : Patient Post-Acute Information Patient Name: ALEJANDRINA YEH Gender: Female : [birth year] Age: 65 Years No Post-Acute Placement(s) Listed No Post-Acute Service(s) Listed No Curaspan Referral(s) Listed Discharge Options Discussed with Patient : Acute rehabilitation, Home Health, half-way rehabilitation, alf Barriers to Discharge Identified : Clinical Condition of Patient Barriers to Discharge Unresolved : Clinical Condition of Patient ADRIAN VALLES, Product Marketer - 12/07/2020 13:36 EDT Narrative Progress Note Narrative Progress Note : Received call from the unit that there is an order for psych to see due to hallucinations and delirium. Dr Darryl Mondragon is the only psychiatrist we have available to us. He is not available on the weekends and he is off all next week from December 09-. He will return on December 16. This service is not available currently. Historical Progress Note : RRS LOW, BOOST 4, LOS 2, ELOS 5 Acute resp failure/sats in mid 90s w/O2@2l/nc Diet upgraded to mech soft DCP: Home with HH, PLOF was independent with use of dme from [facility]. Inpt rehab may not be an option as Patient is on treatment for metastatic adenocarcinoma of the lung with Avastin, Alimta and carboplatin. KISHORE MCKEON RN-Production Pattern Maker - 12/06/20 14:24:20 RRS LOW, BOOST 4, LOS 1, ELOS 5 Acute resp failure For possible extubation this 12/05 Tube feedings DCP: TBD, PLOF was independent with use of dme from [facility]. Will need pt/ot evals to assist with DCP. KISHORE MCKEON RN-Production Pattern Maker - 12/05/20 15:13:54 ADRIAN VALLES Product Marketer - 12/07/2020 13:36 EDT documented in this encounter Plan of Treatment Upcoming Encounters Date Type Department Care Team (Late st Contact Info) Description 05/14/2025 8:00 AM EST Lab Patient Walk-In [facility] - [place] [place] [address] 05/14/2025 8:30 AM EST Appointment [facility] CT - [address] [place] [address] Neptali Bergman MD [address] [place] [address] [address] [place] [address] 05/14/2025 10:00 AM EST Appointment [facility] MRI - [address] [place] [address] Neptali Bergman MD [address] [place] [address] [address] [place] [address] 05/14/2025 2:15 PM EST Office Visit [facility] - [address] [place] [address] Neptali Bergman MD [address] [place] [address] [address] [place] [address] documented as of this encounter Visit Diagnoses Not on filedocumented in this encounter Care Teams Contracting Support Specialist Relationship Specialty Start Date End Date Jonas Navas MD [address] [facility] [address] [place] [address] PCP - General Cardiothoracic Surgery 04/15/22 07/23/22 Marcell Uriostegui MD [address] [facility] [address] [place] [address] PCP - General Adolescent Medicine 07/24/22 04/05/23 Heidi Rivers, LIBRARY CIRCULATION DEPARTMENT CHIEF [address] [facility] [address] [place] [address] PCP - General Nurse Practitioner 04/06/23 [place] [address] [place] [address] [address] [place] [address] Hematology and Oncology 10/31/24 documented as of this encounter
--- OUTSIDE RECORDS SUMMARY | 2025-04-30 09:29 | XMS_ITS | Encounter Summary ---
Author Organization [email or web address] ([place], [place], [place], [place], [place]) Address [address] [place] [address] Care Team Providers Care Regional Marketing Director Name Role Phone Jonas Navas MD Primary Care Provider [phone] Marcell Uriostegui MD Primary Care Provider + [phone] Heidi Rivers APRN Primary Care Provider + [phone] Neptali Bergman MD Unavailable [phone] Encounter Details Date Type Department Care Team (Late st Contact Info) Description 07/27/2019 Transcribed Document [facility] [place] [place] Family Medicine [address] [place] [address] ProviderJennifer MD [address] [place] [address] Social History Tobacco Use Types Packs/Day Years Used Date Smoking Tobacco: Never Assessed Comments Unknown Sex and Gender Information Value Date Recorded Sex Assigned at Not on file Legal Sex Female 1:09 PM CDT Gender Identity Not on file Sexual Orientation Not on file documented as of this encounter Miscellaneous Notes * Cerner Conversion Note - Jennifer ProviderMD - 07/27/2019 10:56 AM NETWORK/TELECOM ENGINEER Patient: ALEJANDRINA YEH Age: 63 years Sex: Female : 1955 Associated Diagnoses: None Author: GALDINO GHOTRA APRN-CTS Admission Date: \ Discharge Date: Attending: Dr. Jonas Navas, CT Surgery PCP: Dr. Jordy Akers ( [facility], ) Consultants: Brief History:This [...] >>non-insulin dependent 6. Chronic bronchitis. 7. Hyperlipidemia. POSTOP DX: Subjective 07/26/19: POD#1 The pt is pleasant and having some incisional pain but controlled with pain medications. 07/27/19: POD#2 feels better than yesterday; very hoarse Health Status Allergies: Allergic Reactions (Selected) Severity Not Documented Anoro Ellipta- Chest pain. Corgard- Unknown. DilTIAZem- Unknown. Levaquin- Vomiting. Stiolto Respimat 10 ACT- Chest pain and muscle weakness (generalized). Current medications.Problem list. Objective VS/Measurements Vital Measurements 07/27/2019 9:30 EST Systolic Blood Pressure 117 mmHg Diastolic Blood Pressure 56 mmHg LOW Temperature, Fahrenheit 98.3 Deg F Oxygen Saturation 94 % 07/27/2019 8:50 EST Oxygen Saturation 97 % Oxygen Therapy Mode Nasal cannula Oxygen Flow Rate 4 Liter/Min General: Alert and oriented. Respiratory: Lungs are clear to auscultation, anteriorly. Cardiovascular: Normal rate, Regular rhythm. Gastrointestinal: Soft, Non-tender, Non-distended. Lt Chest incision>> aquacell dressing Results Review General results Today's results 07/27/2019 6:38 EST Sodium Level 131 mmol/L LOW Potassium Level 4.3 mmol/L Chloride Level 100 mmol/L LOW Carbon Dioxide Level 28 mmol/L Anion Gap 7 LOW Glucose Level 119 mg/dL HI Blood Urea Nitrogen 18 mg/dL Creatinine Level 0.70 mg/dL eGFR >60 mL/min/1.73m2 eGFR NonAfrican >60 mL/min/1.73m2 Bun/Creatinine 25.7 HI Calcium Level 9.0 mg/dL WBC 19.9 K/uL HI RBC 3.91 Million/uL LOW Hgb 10.5 g/dL LOW Hct 33.8 % LOW MCV 86.4 fL MCH 26.9 pg MCHC 31.1 Gram/dL LOW Platelet Count 251 K/uL Interpretation: Radiology Results (Last 48 hours) [id number] -- 07/25/2019 07:00 CR Chest 1 Vw Portable (07/25/2019 11:11) Result: PORTABLE CHEST 07/25/2019 10:30 AM HISTORY: Pneumothorax.COMPARISON: 07/10/2019.FINDINGS: The heart is borderline in size . There are postoperativechanges of left partial pneumonectomy with left-sided chest tube inplace. There is mild vascular congestion and minimal right lungatelectasis. There is no pneumothorax . The osseous structures areunremarkable . IMPRESSION: Postoperative changes without pneumothorax.Images reviewed, interpreted, and dictated by Dr. Robert German.Transcribed by Robin Birmingham PA-C.I have personally viewed, interpreted and dictated the examination. Ihave read and agree with the above final transcribed report. CR Chest 1 Vw Portable (07/27/2019 06:43) [...] by Dr. Gautam Nieves.Transcribed by Roxy Ballard PA-C. Impression and Plan VTE STATUS>>[facility] 3\ Admission 1. Left minimally invasive muscle sparing thoracotomy. 2. Left upper lobectomy. 3. Mediastinal lymphadenectomy. 07/26/19 POD#1 CT 335ml / 12 hours + air leak Get OOB up to a chair Encouraged IS Transfer to [facility] 07/27/19 POD#2 O2 92% on 4 liters [...] weeks with Dr Bergman or Dr. Robertson Electronically signed by [facility] Conversion Courtesy Bus Driver Cerner at 09/10/2022 12:43 AM CDT documented in this encounter Plan of Treatment Upcoming Encounters Date Type Department Care Team (Late st Contact Info) Description 05/14/2025 8:00 AM EST Lab Patient Walk-In [place] [facility] - [address] [place] [address] 05/14/2025 8:30 AM EST Appointment [facility] CT - [facility] [address] [facility] [address] [place] [address] Neptali Bergman MD [address] [place] [address] [address] [place] [address] 05/14/2025 10:00 AM EST Appointment [facility] MRI - [facility] [address] [facility] [address] [place] [address] Neptali Bergman MD [facility] [address] [place] [address] 05/14/2025 2:15 PM EST Office Visit [place] [facility] - [address] [place] [address] Neptali Bergman MD [facility] [address] [place] [address] documented as of this encounter Visit Diagnoses Not on filedocumented in this encounter Care Teams Regional Marketing Director Relationship Specialty Start Date End Date Jonas Navas MD [address] [facility] [address] [place] [address] PCP - General Cardiothoracic Surgery 04/15/22 07/23/22 Marcell Uriostegui MD [address] [facility] [address] [place] [address] PCP - General Adolescent Medicine 07/24/22 04/05/23 Heidi Rivers, ROMERO [address] [facility] [address] [place] [address] PCP - General Nurse Practitioner 04/06/23 Neptali Bergman MD [address] [facility] [address] [place] [address] Hematology and Oncology 10/31/24 documented as of this encounter
--- OUTSIDE RECORDS SUMMARY | 2025-04-30 09:29 | XMS_ITS | Encounter Summary ---
Author Organization [employer] ([place], [place], [place], [place], [place]) Address [address] [place] [address] Care Team Providers Care Welder Boilermaker Name Role Phone Jonas Navas MD Primary Care Provider [phone] Marcell Uriostegui MD Primary Care Provider + [phone] Heidi Rivers APRN Primary Care Provider + [phone] Neptali Bergman MD Unavailable [phone] Encounter Details Date Type Department Care Team (Late st Contact Info) Description 2020 Transcribed Document [facility] [place] Family Medicine [facility] [place] [address] ProviderJennifer MD [address] [place] [address] Social History Tobacco Use Types Packs/Day Years Used Date Smoking Tobacco: Never Assessed Comments Unknown Sex and Gender Information Value Date Recorded Sex Assigned at Not on file Legal Sex Female 1:09 PM CDT Gender Identity Not on file Sexual Orientation Not on file documented as of this encounter Miscellaneous Notes * Cerner Conversion Note - Jennifer ProviderMD - 2020 2:08 PM CDT UM Authorization Entered On: 2020 14:09 EDT Performed On: 2020 14:08 EDT by CICI DIAZ RN Primary Insurance Authorization Authorization and Policy Numbers : Insurance 1 Health Plan: [employer] PPO Policy Number: [id number] Authorization Number: Insurance 2 Health Plan: [employer] HMOPPO Policy Number: [id number] Authorization Number: Authorization Status-Primary : Awaiting callback Auth/Referral Contact Name-Primary : [employer] P[employer] Policy Number: [id number] Reference Number-Primary : Pend ref #[id number] Authorized Service Begin Date-Primary : 12/03/2020 EDT Authorization Comments-Primary : Pending ref no per [employer]. Clinicals faxed via [employer] for IP approval Historical Authorization Comments-Primary : Comment 1: Insurance inactive per [employer], em to [place] to verify (CICI DIAZ RN 2020 11:20) CICI DIAZ RN - 2020 14:08 EDT Electronically signed by Hossein [facility] Conversion Machinist Job Setter Cerner at 09/10/2022 12:48 AM CDT documented in this encounter Plan of Treatment Upcoming Encounters Date Type Department Care Team (Late st Contact Info) Description 05/14/2025 8:00 AM EST Lab Patient Walk-In [place] [facility] - [address] [place] [address] 05/14/2025 8:30 AM EST Appointment [facility] [address] [facility] [address] [place] [address] Neptali Bergman MD [address] [place] [address] [address] [place] [address] 05/14/2025 10:00 AM EST Appointment [facility] [address] [facility] [address] [place] [address] Neptali Bergman MD [address] [place] [address] [address] [place] [address] 05/14/2025 2:15 PM EST Office Visit [facility] - [address] [place] [address] Neptali Bergman MD [address] [place] [address] [address] [place] [address] documented as of this encounter Visit Diagnoses Not on filedocumented in this encounter Care Teams Welder Boilermaker Relationship Specialty Start Date End Date Jonas Navas MD [address] [facility] [address] [place] [address] PCP - General Cardiothoracic Surgery 04/15/22 07/23/22 Marcell Uriostegui MD [address] [facility] [address] [place] [address] PCP - General Adolescent Medicine 07/24/22 04/05/23 Heidi Rivers APRN [address] [facility] [address] [place] [address] PCP - General Nurse Practitioner 04/06/23 Neptali Bergman MD [address] [facility] [address] [place] [address] Hematology and Oncology 10/31/24 documented as of this encounter
--- OUTSIDE RECORDS SUMMARY | 2025-04-30 09:29 | XMS_ITS | Encounter Summary ---
Author Organization [employer] ([place], [place], [place], [place], [place]) Address [address] [place] [address] Care Team Providers Care Wedding Planning Internship Name Role Phone Jonas Navas MD Primary Care Provider [phone] Marcell Uriostegui MD Primary Care Provider + [phone] Heidi Rivers APRN Primary Care Provider + [phone] Neptali Bergman MD Unavailable [phone] Encounter Details Date Type Department Care Team (Late st Contact Info) Description 07/26/2019 Transcribed Document [facility] [place] [address] [place] [address] ProviderJennifer MD [address] [place] [address] Social History Tobacco Use Types Packs/Day Years Used Date Smoking Tobacco: Never Assessed Comments Unknown Sex and Gender Information Value Date Recorded Sex Assigned at Not on file Legal Sex Female 1:09 PM CDT Gender Identity Not on file Sexual Orientation Not on file documented as of this encounter Miscellaneous Notes * Cerner Conversion Note - Jennifer ProviderMD - 07/26/2019 9:57 AM STEEL DETAILER Evaluation, Physical Therapy Entered On: 07/27/2019 16:59 EST Performed On: 07/27/2019 16:05 EST by TAMMY BELLE, PT General Information, PT Visit Type, PT : Initial evaluation TAMMY BELLE, PT - 07/27/2019 16:25 EST Patient Orders : Order Date Order Ordering 07/26/2019 09:57 Consult to Physical Therapy Ordered By: TIERRA VASQUEZ PA Active Diagnoses : 07/26/2019 12:00 Atherosclerotic heart disease of [place] coronary artery without angina pectoris 07/26/2019 12:00 [...] without complications 07/26/2019 12:00 Unspecified chronic bronchitis TAMMY BELLE, PT - 07/31/2019 15:46 EDT Therapy Diagnosis, PT : functional decline after thoracic surgery Onset of Problem, PT : 07/25/2019 EST TAMMY BELLE, PT - 07/27/2019 16:25 EST Admission Date : 07/25/2019 07:00 TAMMY BELLE, PT - 07/31/2019 15:46 EDT Assisted by, PT : Family TAMMY BELLE, PT - 07/27/2019 16:25 EST Personal Devices : Personal Devices No Devices Recorded Assistive Devices : Assistive Devices No Devices Recorded TAMMY BELLE, PT - 07/31/2019 15:46 EDT General Information Comment, PT : 63 yo female adm to [facility] for SURGERY for Adenocarcinoma L UL and HAD A L Minimal Invasive THORACOTOMY with L UL LOBECTOMY PMHx significant for COPD, CAD, DM, Hyperlipedemia TAMMY BELLE, PT - 07/27/2019 16:25 EST General Status Patient Received Status : Supine in bed, Other: spouse present Treatment Start Time : 07/27/2019 15:35 EST Patient Left Status : Up in chair, RN/PCT informed, Family/Visitors at bedside, Communication board completed, All needs met and within reach RN/PCT Informed Comment : yes per ASHLEY Chapman covering for Terri I don't know IF she is OK off wall suction Treatment End Time : 07/27/2019 16:05 EST Treatment Time : 30 Minute(s) Actual Treatment Time : 30 Minute(s) TAMMY BELLE, PT - 07/27/2019 16:25 EST History and Environment Living Situation, Therapy : Home Patient Lives With : Spouse Persons Assisting Patient at Home : Spouse Professional Skilled Services : None Persons Providing Information : Patient, Spouse Home Equipment Therapy, PT : Walker Walker : Walker, four wheel Walker Comment : rollator which belonged to pt's mother Home Setup : One story Bedroom Location : Main level Bathroom #1 Location : Main level Bathroom #1 Features : Toilet, Tub/Shower Stairs : Yes Stair Location(s) : Outside Outside Stairs, Number of Steps : 1 Railing Outside : No Ramp : No TAMMY BELLE, PT - 07/27/2019 16:25 EST Prior Level of Function PT GRID Prior LOF Ambulation, Household : Independent Prior LOF Ambulation, Community : Independent Prior LOF Bed Mobility : Independent Prior LOF Toileting : Independent Prior LOF Transfer : Independent TAMMY BELLE PT - 07/27/2019 16:25 EST Upper Extremity Right UE Active ROM : WFL Right UE Strength : WFL Left UE Active ROM : Impaired Left UE Strength : Impaired Right UE Strength : WFL Left UE Strength : Impaired Upper Extremity Comment : L UE ROM /MMT limited by pain from chest tube TAMMY BELLE, PT - 07/27/2019 16:25 EST Lower Extremity RLE Active ROM : WFL Right LE Strength : WFL LLE Active ROM : WFL Left LE Strength : WFL TAMMY BELLE, PT - 07/27/2019 16:25 EST Functional Mobility Mobility Grid Bed Roll Right : Rehab Minimal assistance Bed Scooting : Supervision/set-up Supine to Sit : Rehab Minimal assistance Sit to Stand : Rehab Minimal assistance Bed to Chair : Rehab Minimal assistance Stand to Sit : Rehab Minimal assistance TAMMY BELLE PT - 07/27/2019 16:25 EST Sit to Stand Device : Belt, gait, Walker, front wheel Bed to Chair Device : Belt, gait, Walker, front wheel Stand to Sit Device : Belt, gait, Rails, Walker, front wheel Functional MobilityComment : pt with chest tube on wall suction, O2 at 4 L, IV, CHANNEL INSTALLER TAMMY BELLE, PT - 07/27/2019 16:25 EST Gait Training/Assessment, PT Weight Bearing Status : Full Gait Assistance Level : Supervision Walking Distance : approx 15 ft around bed Ambulatory Devices : Gait belt, Walker, front wheel, Other: IV, Scott Cath, Chest Tube, O2 at 4 L, CHANNEL INSTALLER Gait Deviations : Yes Left Lower Gait Deviation : Sushma, decreased Right Lower Gait Deviation : Sushma, decreased Gait Training Comment : cues for turn at chair due to lines TAMMY BELLE, PT - 07/27/2019 16:25 EST Cognition Assessment, PT Orientation : Oriented x 4 Safety/Judgment Comment : fairly good Follows Basic Command Assessment : yes Attention Assessment : Present TAMMY BELLE, PT - 07/27/2019 16:25 EST Edu Topics Physical Therapy Education Grid Balance Training : Returns demonstration Bed Mobility Training : Returns demonstration, Needs reinforcement Gait Training : Returns demonstration, Needs reinforcement Precaution/Contraindication : Verbalizes understanding, Needs reinforcement Role of Physical Therapy : Verbalizes understanding, Needs reinforcement Safety : Returns demonstration, Needs reinforcement Therapeutic Exercises : Needs further teaching Transfer Training : Returns demonstration, Needs reinforcement Use of Assistive Device : Returns demonstration, Needs reinforcement TAMMY BELLE, PT - 07/27/2019 16:25 EST Indication Assesessment, PT Physical Therapy Indicated : Yes PT Problem List : Impaired, endurance tolerance, Impaired, gait, Impaired, transfers, Pain limiting function Potential Barriers To Therapy : Acuity of Illness, Pain Rehabilitation Potential : Good TAMMY BELLE, PT - 07/27/2019 16:25 EST Plan of Care, PT PT Tx Plan/Goals Established w Patient : Yes PT Frequency Rehab : Five days per week Other PT Treatment Provided This Date : strong ed for importance of mobility and spending more time OOB to prevent complications like PU, Clots, PNA spouse supportive of increased mobility ed also on ther ex and deep breathing, use of incentive spirometer PT Duration Rehab : Fourteen days PT Treatments Planned : Bed mobility training, Gait training, Pain management, Safety education, Therapeutic exercises, Transfer training TAMMY BELLE, PT - 07/27/2019 16:25 EST Short Term Goals Mobility/Bed Mobility STG PT Grid Goal #1 Activity : Supine to sit Assist : Independent, modified Equipment : Bed, hospital Date to Meet : 08/03/2019 EDT Goal Status : Initial goal TAMMY BELLE PT - 07/27/2019 16:25 EST Ambulation STG Grid Goal #1 Device : Walker, front wheel Distance : 150 ft w/O2 sats >87% Assist : Supervision or set-up Date to Meet : 08/03/2019 EDT Goal Status : Intial Goal TAMMY BELLE PT - 07/27/2019 16:25 EST [place] Block Setter Goals Mobility/Bed Mobility LTG PT Grid Goal #1 Activity : Sit to stand Assist : Independent, modified Equipment : Walker, front wheel Date to Meet : 08/10/2019 EDT Goal Status : Intial Goal TAMMY BELLE PT - 07/27/2019 16:25 EST Ambulation LTG Grid Goal #1 Device : Walker, front wheel Distance : 375 ft w/O2 sats >87% Assist : Supervision or set-up Date to Meet : 08/10/2019 EDT Goal Status : Intial Goal TAMMY BELLE PT - 07/27/2019 16:25 EST Treatment Note Subjective Comment : agreed to PTx and getting OOB Patient's Response to Treatment : fairly good Additional Objective Information : pt lethargic Assessment : fairly good effort , a bit impulsive especially with multiple lines needs encouragement to move more and get OOB more of the day appropriate for skilled PTx to encourage and assist pt with increasing her mobility to restore Independent mobility Plan for Treatment : initate POC for mobility TAMMY BELLE PT - 07/27/2019 16:25 EST Pain Assessment Pain Scaled Used : 0-10 Pain scale Pain Score Pre-Intervention : 6 Location : Incisional Onset : Constant Pain Comment : RN replacing CHANNEL INSTALLER meds TAMMY BELLE PT - 07/27/2019 16:25 EST Image 1 - Images currently included in the form version of this document have not been included in the text rendition version of the form. Anticipated Discharge Needs, OT/PT Anticipated Discharge to : Home, with family care Recommend Continued Therapy at Discharge : No TAMMY BELLE PT - 07/27/2019 16:25 EST [place] PT Charges PT Eval Low Complexity : 1 TAMMY BELLE PT - 07/31/2019 15:46 EDT PT Ther Activities Ea 15 Min : 1 TAMMY BELLE PT - 07/27/2019 16:25 EST documented in this encounter Plan of Treatment Upcoming Encounters Date Type Department Care Team (Late st Contact Info) Description 05/14/2025 8:00 AM EST Lab Patient Walk-In [facility] - [address] [place] [address] 05/14/2025 8:30 AM EST Appointment [facility] CT - [address] [place] [address] [place] [address] [place] [address] [address] [place] [address] 05/14/2025 10:00 AM EST Appointment [facility] - [address] [place] [address] [place] [address] [place] [address] [address] [place] [address] 05/14/2025 2:15 PM EST Office Visit [facility] - [address] [place] [address] Neptali Bergman MD [address] [place] [address] [address] [place] [address] documented as of this encounter Visit Diagnoses Not on filedocumented in this encounter Care Teams Wedding Planning Internship Relationship Specialty Start Date End Date Jonas Navas MD [address] [facility] [address] [place], [place] [id number] PCP - General Cardiothoracic Surgery 04/15/22 07/23/22 Marcell Uriostegui MD [address] [place] [address] PCP - General Adolescent Medicine 07/24/22 04/05/23 Heidi Rivers, DIRECTOR OF SEARCH ENGINE MARKETING [address] [facility] [address] [place] [address] PCP - General Nurse Practitioner 04/06/23 Neptali Bergman MD [address] [place] [address] [address] [place] [address] Hematology and Oncology 10/31/24 documented as of this encounter
--- OUTSIDE RECORDS SUMMARY | 2025-04-30 09:30 | XMS_ITS | Encounter Summary ---
Author Organization [employer] ([place], [place], [place], [place], [place]) Address [address] [place] [address] Care Team Providers Care Electrotyper Apprentice Name Role Phone Jonas Navas MD Primary Care Provider [phone] Marcell Uriostegui MD Primary Care Provider + [phone] Heidi Rivers APRN Primary Care Provider + [phone] Neptali Bergman MD Unavailable [phone] Encounter Details Date Type Department Care Team (Late st Contact Info) Description 07/31/2019 Transcribed Document [facility] [place] [facility] [place] [address] ProviderJennifer MD [address] [place] [address] Social History Tobacco Use Types Packs/Day Years Used Date Smoking Tobacco: Never Assessed Comments Unknown Sex and Gender Information Value Date Recorded Sex Assigned at Not on file Legal Sex Female 1:09 PM CDT Gender Identity Not on file Sexual Orientation Not on file documented as of this encounter Miscellaneous Notes * Cerner Conversion Note - Historical ProviderMD - 07/31/2019 4:00 AM CDT Height and Weight, Routine Entered On: 07/31/2019 5:05 EDT Performed On: 07/31/2019 4:00 EDT by Cady Merlos Care Asst-Health Unit Coord Height and Weight, Routine Routine Weight Source : Bed scale Routine Weight Entry Format : Edmunds Routine Weight, Pounds : 162 lb Routine Weight Calculation : 73.64 kg Height Source : Measured Height Entry Format : [place]munds Height, Feet : 5 ft Height, Inches : 2 Inch Clinical Height : 157.48 cm Body Surface Area (BSA), Routine : 1.75 m2 Body Mass Index (BMI), Routine : 29.69 kg/m2 Cady Merlos Care [facility] - 07/31/2019 5:05 EDT Electronically signed by Hossein, [facility] Conversion Rigging Slinger Cerner at 09/10/2022 12:36 AM CDT documented in this encounter Plan of Treatment Upcoming Encounters Date Type Department Care Team (Late st Contact Info) Description 05/14/2025 8:00 AM EST Lab Patient Walk-In [place] [facility] - [place] [address] [place] [address] 05/14/2025 8:30 AM EST Appointment [facility] - [address] [facility] [address] [place] [address] [place] [address] [place] [address] [address] [place] [address] 05/14/2025 10:00 AM EST Appointment [facility] MRI - [address] [facility] [address] [place] [address] Neptali Bergman MD [address] [place] [address] [address] [place] [address] 05/14/2025 2:15 PM EST Office Visit [place] [facility] - [address] [place] [address] Neptali Bergman MD [address] [place] [address] [address] [place] [address] documented as of this encounter Visit Diagnoses Not on filedocumented in this encounter Care Teams Electrotyper Apprentice Relationship Specialty [place] [address] [place] [address] [address] [place], [place] [id number] PCP - General Cardiothoracic Surgery 04/15/22 07/23/22 Marcell Uriostegui MD [address] [place] [address] [place] [address] PCP - General Adolescent Medicine 07/24/22 04/05/23 Heidi Rivers APRN [address] [facility] [address] [place] [address] PCP - General Nurse Practitioner 04/06/23 Neptali Bergman MD [address] [facility] [address] [place] [address] Hematology and Oncology 10/31/24 documented as of this encounter
--- OUTSIDE RECORDS SUMMARY | 2025-04-30 09:30 | XMS_ITS | Encounter Summary ---
Author Organization [employer] ([place], [place], [place], [place], [place]) Address [address] [place] [address] Care Team Providers Care Rubber Tester Name Role Phone Jonas Navas MD Primary Care Provider [phone] Marcell Uriostegui MD Primary Care Provider + [phone] Heidi Rivers APRN Primary Care Provider + [phone] Neptali Bergman MD Unavailable [phone] Encounter Details Date Type Department Care Team (Late st Contact Info) Description 07/30/2019 Transcribed Document [facility] [place] [facility] [place] [address] ProviderJennifer MD [address] [place] [address] Social History Tobacco Use Types Packs/Day Years Used Date Smoking Tobacco: Never Assessed Comments Unknown Sex and Gender Information Value Date Recorded Sex Assigned at Not on file Legal Sex Female 1:09 PM CDT Gender Identity Not on file Sexual Orientation Not on file documented as of this encounter Miscellaneous Notes * Cerner Conversion Note - Jennifer ProviderMD - 07/30/2019 5:00 AM CDT Chart Check - Review Order Profile Entered On: 07/30/2019 4:36 EDT Performed On: 07/30/2019 5:00 EDT by Janis Pickens RN Chart Check All Active Orders Reviewed : Yes Janis Pickens RN - 07/30/2019 4:36 EDT Electronically signed by Hossein [facility] Conversion Shank Stitcher Cerner at 09/10/2022 12:47 AM CDT documented in this encounter Plan of Treatment Upcoming Encounters Date Type Department Care Team (Late st Contact Info) Description 05/14/2025 8:00 AM EST Lab Patient Walk-In [facility] - [address] [place] [address] 05/14/2025 8:30 AM EST Appointment [facility] CT - [address] [place] [address] [place] [address] [place] [address] [address] [place] [address] 05/14/2025 10:00 AM EST Appointment [facility] MRI - [address] [place] [address] Neptali Bergman MD [address] [facility] [address] [place] [address] 05/14/2025 2:15 PM EST Office Visit [facility] - [address] [place] [address] Neptali Bergman MD [address] [facility] [address] [place] [address] documented as of this encounter Visit Diagnoses Not on filedocumented in this encounter Care Teams Rubber Tester Relationship Specialty Start Date End Date Jonas Navas MD [address] [facility] [address] [place] [address] PCP - General Cardiothoracic Surgery 04/15/22 07/23/22 Marcell Uriostegui MD [address] [place] [address] [place] [address] PCP - General Adolescent Medicine 07/24/22 04/05/23 Heidi Rivers, ROMERO [address] [facility] [address] [place] [address] PCP - General Nurse Practitioner 04/06/23 Neptali Bergman MD [address] [facility] [address] [place] [address] Hematology and Oncology 10/31/24 documented as of this encounter
--- OUTSIDE RECORDS SUMMARY | 2025-04-30 09:30 | XMS_ITS | Encounter Summary ---
Author Organization [employer] ([place], [place], [place], [place], [place]) Address [address] [place] [address] Care Team Providers Care Company Manager Name Role Phone Jonas Navas MD Primary Care Provider [phone] Marcell Uriostegui MD Primary Care Provider + [phone] Heidi Rivers APRN Primary Care Provider + [phone] Neptali Bergman MD Unavailable [phone] Encounter Details Date Type Department Care Team (Late st Contact Info) Description 07/28/2019 Transcribed Document [facility] [place] [address] [place] [address] ProviderJennifer MD [address] [place] [address] Social History Tobacco Use Types Packs/Day Years Used Date Smoking Tobacco: Never Assessed Comments Unknown Sex and Gender Information Value Date Recorded Sex Assigned at Not on file Legal Sex Female 1:09 PM CDT Gender Identity Not on file Sexual Orientation Not on file documented as of this encounter Miscellaneous Notes * [employer]ner Conversion Note - Jennifer ProviderMD - 07/28/2019 4:29 PM FIREMAN HELPER On Going Discharge Planning Entered On: 07/28/2019 16:32 EST Performed On: 07/28/2019 16:29 EST by STEWART AYALA Buffet Runner Care Management Progress Note Discharge Arrangements : [...] the Patient Meeting Medical Necessity : Yes STEWART AYALA Buffet Runner - 07/28/2019 16:29 EST Narrative Progress Note Narrative Progress Note : Admission day 3, transfer from [facility], on 4 liters O2, CT remains in place (760ml/24hrs), epidural and sargent remain in place, OZ=512' with rwx/O2/suction. DCP: to return home with family (watch for possible O2 needs). CM will continue to follow. Historical Progress Note : CTS encouraging pt to be up in chair OOB; anticipate possible transfer out of [facility] later today; anticipate home with spouse when stable; monitor for home oxygen need. ALEXUS LEON, Rn-Chemical Engineering Technician - 07/26/19 09:54:47 STEWART AYALA Buffet Runner - 07/28/2019 16:29 EST Electronically signed by Deric Catalan Conversion Employment Specialist/Program Manager Cerner at 09/10/2022 12:36 AM CDT documented in this encounter Plan of Treatment Upcoming Encounters Date Type Department Care Team (Late st Contact Info) Description 05/14/2025 8:00 AM EST Lab Patient Walk-In [facility] - [place] [address] [place] [address] 05/14/2025 8:30 AM EST Appointment [facility] CT - [address] [place] [address] [place] [address] [place] [address] [address] [place] [address] 05/14/2025 10:00 AM EST Appointment [facility] MRI - [address] [facility] [address] [place] [address] [place] [address] [place] [address] [address] [place] [address] 05/14/2025 2:15 PM EST Office Visit [facility] - [address] [place] [address] Neptali Bergman MD [address] [facility] [address] [place] [address] documented as of this encounter Visit Diagnoses Not on filedocumented in this encounter Care Teams Company Manager Relationship Specialty Start Date End Date Jonas Navas MD [address] [facility] [address] [place] [address] PCP - General Cardiothoracic Surgery 04/15/22 07/23/22 Marcell Uriostegui MD [address] [facility] [address] [place] [address] PCP - General Adolescent Medicine 07/24/22 04/05/23 Heidi Rivers, PICKER AND PACKER [address] [place] [address] PCP - General Nurse Practitioner 04/06/23 Neptali Bergman MD [address] [facility] [address] [place] [address] Hematology and Oncology 10/31/24 documented as of this encounter
--- OUTSIDE RECORDS SUMMARY | 2025-04-30 09:30 | XMS_ITS | Encounter Summary ---
Author Organization [employer] ([place], [place], [place], [place], [place]) Address [address] [place] [address] Care Team Providers Care Commercial Solar Sales Consultant Name Role Phone Jonas Navas MD Primary Care Provider [phone] Marcell Uriostegui MD Primary Care Provider + [phone] Heidi Rivers APRN Primary Care Provider + [phone] Neptali Bergman MD Unavailable [phone] Encounter Details Date Type Department Care Team (Late st Contact Info) Description 07/31/2019 Transcribed Document [facility] [place] Family [facility] [place] [address] ProviderJennifer MD [address] [place] [address] Social History Tobacco Use Types Packs/Day Years Used Date Smoking Tobacco: Never Assessed Comments Unknown Sex and Gender Information Value Date Recorded Sex Assigned at Not on file Legal Sex Female 1:09 PM CDT Gender Identity Not on file Sexual Orientation Not on file documented as of this encounter Miscellaneous Notes * Cerner Conversion Note - Jennifer ProviderMD - 07/31/2019 2:00 AM CDT Electronics System Mechanic Details Entered On: 07/31/2019 7:07 EDT Performed On: 07/31/2019 2:00 EDT by Janis Pickens RN Order Details Transport Mode Order Detail : Wheelchair Isolation Precautions Order Detail : Standard Precautions Order Detail : 0 IV Order Detail : 1 Oxygen Order Detail : 1 Nurse Collect Order Detail : 0 Lift/Transfer : Independent Central Line Order Detail : No Room Service : Appropriate Arterial Line : No Celio, August, RN - 07/31/2019 7:07 EDT documented in this encounter Plan of Treatment Upcoming Encounters Date Type Department Care Team (Late st Contact Info) Description 05/14/2025 8:00 AM EST Lab Patient Walk-In [facility] Oncology - [place] [address] [place] [address] 05/14/2025 8:30 AM EST Appointment [facility] [address] [facility] [address] [place] [address] [facility] [address] [place] [address] 05/14/2025 10:00 AM EST Appointment [facility] - [address] [facility] [address] [place] [address] [facility] [address] [place] [address] 05/14/2025 2:15 PM EST Office Visit [facility] On[facility] - [place] [address] [place] [address] [facility] [address] [place] [address] documented as of this encounter Visit Diagnoses Not on filedocumented in this encounter Care Teams Commercial Solar Sales Consultant Relationship Specialty Start Date End Date Jonas Navas MD [address] [facility] [address] [place] [address] PCP - General Cardiothoracic Surgery 04/15/22 07/23/22 Marcell Uriostegui MD 1210 [facility] [address] [place] [address] PCP - General Adolescent Medicine 07/24/22 04/05/23 Heidi Rivers APRN [address] [facility] [address] [place] [address] PCP - General Nurse Practitioner 04/06/23 Neptali Bergman MD [address] [facility] [address] [place] [address] Hematology and Oncology 10/31/24 documented as of this encounter
--- OUTSIDE RECORDS SUMMARY | 2025-04-30 09:30 | XMS_ITS | Encounter Summary ---
Author Organization [employer] ([place], [place], [place], [place], [place]) Address [address] [place] [address] Care Team Providers Care Medical Field Representative Name Role Phone Jonas Navas MD Primary Care Provider [phone] Marcell Uriostegui MD Primary Care Provider + [phone] Heidi Rivers APRN Primary Care Provider + [phone] Neptali Bergman MD Unavailable [phone] Encounter Details Date Type Department Care Team (Late st Contact Info) Description 07/31/2019 Transcribed Document [facility] [place] [address] [place] [address] ProviderJennifer MD [address] [place] [address] Social History Tobacco Use Types Packs/Day Years Used Date Smoking Tobacco: Never Assessed Comments Unknown Sex and Gender Information Value Date Recorded Sex Assigned at Not on file Legal Sex Female 1:09 PM CDT Gender Identity Not on file Sexual Orientation Not on file documented as of this encounter Miscellaneous Notes * Cerner Conversion Note - Jennifer ProviderMD - 07/31/2019 5:45 PM CDT On Going Discharge Planning Entered On: 07/31/2019 17:48 EDT Performed On: 07/31/2019 17:45 EDT by ANASTASIA DA SILVA RN-Testing ConsultantInstrument Technician Helper Progress Note Discharge Arrangements : Patient Post-Acute Information Patient Name: ALEJANDRINA YEH Gender: Female : 55 Age: 63 Years No Post-Acute Placement(s) Listed No Post-Acute Service(s) Listed No [place] Referral(s) Listed Discharge Options Discussed with Patient : DME, Home Health Barriers to Discharge Identified : Clinical Condition of Patient Barriers to Discharge Unresolved : Clinical Condition of Patient Is the Patient Meeting Medical Necessity : Yes Did you Attend Multidisciplinary Rounds? : Yes ANASTASIA DA SILVA RN-Testing Consultant - 07/31/2019 17:45 EDT Narrative Progress Note Narrative Progress Note : Patient is a low readmission risk. ELOS: 5 days HD#6 POD#6 Left thoracotomy, Left upper lobectomy; Telemetry NSR, O2 sat 99% on 4 liters, CT to water seal, last BM 3/ refuses laxitives. DCP: Home with , and possibly home oxygen. If patient needs home O2 she would like to use [facility]. CM will continue to follow. Historical Progress Note : Admission day 3, transfer from [facility], on 4 liters O2, CT remains in place (760ml/24hrs), epidural and sargent remain in place, IL=311' with rwx/O2/suction. DCP: to return home with family (watch for possible O2 needs). CM will continue to follow. STEWART AYALA, Prenatal Genetic Counselor - 07/28/19 16:32:45 CTS encouraging pt to be up in chair OOB; anticipate possible transfer out of [facility] later today; anticipate home with spouse when stable; monitor for home oxygen need. ALEXUS LEON Rn-Testing Consultant - 07/26/19 09:54:47 ANASTASIA DA SILVA RN-Testing Consultant - 07/31/2019 17:45 EDT documented in this encounter Plan of Treatment Upcoming Encounters Date Type Department Care Team (Late st Contact Info) Description 05/14/2025 8:00 AM EST Lab Patient Walk-In [place] Oncology - [place] [address] [place] [address] 05/14/2025 8:30 AM EST Appointment [facility] - [address] [place] [address] Neptali Bergman MD [address] [facility] [address] [place] [address] 05/14/2025 10:00 AM EST Appointment [facility] MRI - [address] [place] [address] Neptali Bergman MD [address] [place] [address] [place] [address] 05/14/2025 2:15 PM EST Office Visit [facility] - [place] [address] [place] [address] Neptali Bergman MD [address] [place] [address] [address] [place] [address] documented as of this encounter Visit Diagnoses Not on filedocumented in this encounter Care Teams Medical Field Representative Relationship Specialty Start Date End Date Jonas Navas MD [address] [facility] [address] [place] [address] PCP - General Cardiothoracic Surgery 04/15/22 07/23/22 Marcell Uriostegui MD [address] [place] [address] PCP - General Adolescent Medicine 07/24/22 04/05/23 Heidi Rivers APRN [address] [place] [address] PCP - General Nurse Practitioner 04/06/23 Neptali Bergman MD [address] [facility] [address] [place] [address] Hematology and Oncology 10/31/24 documented as of this encounter
--- OUTSIDE RECORDS SUMMARY | 2025-04-30 09:30 | XMS_ITS | Encounter Summary ---
Author Organization [employer] ([place], [place], [place], [place], [place]) Address [address] [place] [address] Care Team Providers Care Director Of Entertainment Name Role Phone Jonas Navas MD Primary Care Provider [phone] Marcell Uriostegui MD Primary Care Provider + [phone] Heidi Rivers APRN Primary Care Provider + [phone] Neptali Bergman MD Unavailable [phone] Encounter Details Date Type Department Care Team (Late st Contact Info) Description 12/07/2020 Transcribed Document [facility] [place] [address] ProviderJennifer MD [address] [place] [address] Social History Tobacco Use Types Packs/Day Years Used Date Smoking Tobacco: Never Assessed Comments Unknown Sex and Gender Information Value Date Recorded Sex Assigned at Not on file Legal Sex Female 1:09 PM CDT Gender Identity Not on file Sexual Orientation Not on file documented as of this encounter Miscellaneous Notes * Cerner Conversion Note - Jennifer ProviderMD - 12/07/2020 4:14 PM CDT Evaluation, Physical Therapy Entered On: 12/09/2020 14:47 EDT Performed On: 12/09/2020 14:41 EDT by ISMAEL CARRERA, SUDHEER General Information, PT Visit Type, PT : Initial evaluation Patient Orders : Order Date Order Ordering 12/07/2020 16:14 PT Evaluation and Treatment Ordered By: HAJA YUAN, DO-INT Active Diagnoses : 12/06/2020 12:00 Acute respiratory failure with hypoxia Therapy Diagnosis, PT : Decreased mobility due to Acute Resp Failure Onset of Problem, PT : 2020 EDT Admission Date : 2020 00:20 Personal Devices : Personal Devices No Devices Recorded Assistive Devices : Assistive Devices No Devices Recorded Precautions in Place : Fall prevention measures General Information Comment, PT : Pt admitted with acute respiratory failure and has a history of back pain, back surgery, lung cancer, COPD, DM, CAD with ND. RN asks for eval immediately due to pt being allowed to go home once meds run through IV and PT eval is done. is present. ISMAEL CARRERA, PT - 12/09/2020 14:41 EDT General Status Patient Received Status : Supine in bed Treatment Start Time : 12/09/2020 14:25 EDT Patient Left Status : Sitting edge of bed, RN/PCT informed, Family/Visitors at bedside, All needs met and within reach (Comment: present [ISMAEL CARRERA PT - 12/09/2020 14:41 EDT] ) Treatment End Time : 12/09/2020 14:41 EDT Treatment Time : 16 Minute(s) Actual Treatment Time : 16 Minute(s) ISMAEL CARRERA PT - 12/09/2020 14:41 EDT History and Environment Living Situation, Therapy : Home Patient Lives With : Spouse Persons Assisting Patient at Home : Spouse Professional Skilled Services : None Persons Providing Information : Patient, Spouse Home Equipment Therapy, PT : Walker Stairs : Yes Stair Location(s) : Outside Outside Stairs, Number of Steps : 1 Railing Outside : No ISMAEL CARRERA, SUDHEER - 12/09/2020 14:41 EDT Prior Level of Function PT GRID Prior LOF Ambulation, Household : Independent Prior LOF Ambulation, Community : Independent Prior LOF Bed Mobility : Independent Prior LOF Toileting : Independent Prior LOF Transfer : Independent ISMAEL CARRERA PT - 12/09/2020 14:41 EDT Prior LOF Assist with ADL Comment : Pt has walker but does note use. She uses 3L 02 at home. ISMAEL CARRERA PT - 12/09/2020 14:41 EDT Upper Extremity Upper Extremity Dominance : Right Right UE Active ROM : WFL Right UE Strength : WFL Left UE Active ROM : WFL Left UE Strength : WFL ISMAEL CARRERA, PT - 12/09/2020 14:41 EDT Lower Extremity RLE Active ROM : WFL Right LE Strength : WFL LLE Active ROM : WFL Left LE Strength : WFL ISMAEL CARRERA, PT - 12/09/2020 14:41 EDT Functional Mobility Mobility Grid Supine to Sit : Rehab Complete independence Sit to Stand : Rehab Complete independence Stand to Sit : Rehab Complete independence Sit to Supine : Rehab Complete independence ISMAEL CARRERA, PT - 12/09/2020 14:41 EDT Gait Training/Assessment, PT Weight Bearing Status Maintained : Yes Weight Bearing Status : Full Gait Assistance Level : Independent, modified Walking Distance : 120' Ambulatory Devices : Gait belt, Walker, front wheel Gait Deviations : No Gait Training Comment : Using 3L 02 ISMAEL CARRERA, PT - 12/09/2020 14:41 EDT Activity Tolerance, PT Activity Comment : Good for eval purposes. ISMAEL CARRERA, PT - 12/09/2020 14:41 EDT Cognition Assessment, PT Orientation : Oriented x 4 Safety/Judgment Comment : Good Follows Basic Command Assessment : Yes ISMAEL CARRERA PT - 12/09/2020 14:41 EDT Edu Topics Physical Therapy Education Grid Balance Training : Returns demonstration Bed Mobility Training : Returns demonstration Gait Training : Returns demonstration Role of Physical Therapy : Verbalizes understanding Transfer Training : Returns demonstration ISMAEL CARRERA, PT - 12/09/2020 14:41 EDT Indication Assesessment, PT Physical Therapy Indicated : No Physical Therapy Not Indicated : Other: Pt going home. ISMAEL CARRERA, PT - 12/09/2020 14:41 EDT Plan of Care, PT PT Tx Plan/Goals Established w Patient : Yes Reason Tx/Plan Not Established W/ Pt PT : No need for inpatient PTx. PT Frequency Rehab : Discontinue ISMAEL CARRERA, PT - 12/09/2020 14:41 EDT Treatment Note Subjective Comment : RNRenée,asks PT to do eval IRLANDA because pt can go home once meds done through IV and pt has PT eval. Pt has a walker at home and can assist as needed. Assessment : Good mobility. Functional for home. Plan for Treatment : DC PTx RAMÓN CARRERAEN, PT - 12/09/2020 14:41 EDT Pain Assessment Pain Scaled Used : 0-10 Pain scale Pain Score During-Intervention : 0 ISMAEL CARRERA, PT - 12/09/2020 14:41 EDT Image 1 - Images currently included in the form version of this document have not been included in the text rendition version of the form. Anticipated Discharge Needs, OT/PT Anticipated Discharge to : Home, with family care DEANDRERAMÓNEN, PT - 12/09/2020 14:[address] [facility] Charges PT Eval Low Complexity : 1 DEANDREISMAEL, PT - 12/09/2020 14:41 EDT Electronically signed by Hossein [facility] Conversion Lubricator Granulator Cerner at 09/10/2022 12:47 AM CDT documented in this encounter Plan of Treatment Upcoming Encounters Date Type Department Care Team (Late st Contact Info) Description 05/14/2025 8:00 AM EST Lab Patient Walk-In [facility] Oncology - [place] [address] [place] [address] 05/14/2025 8:30 AM EST Appointment [facility] - [facility] [address] [facility] [address] [place] [address] Neptali Bergman MD [address] [place] [address] [address] [place] [address] 05/14/2025 10:00 AM EST [facility]ointment [facility] - [facility] [address] [facility] [address] [place] [address] [place] [address] [place] [address] [address] [place] [address] 05/14/2025 2:15 PM EST Office Visit [facility] - [place] [address] [place] [address] Neptali Bergman MD [facility] [address] [place] [address] documented as of this encounter Visit Diagnoses Not on filedocumented in this encounter Care Teams Director Of Entertainment Relationship Specialty Start Date End Date Jonas Navas MD [address] [facility] [address] [place] [address] PCP - General Cardiothoracic Surgery 04/15/22 07/23/22 Marcell Uriostegui MD 1210 [facility] [address] [place] [address] PCP - General Adolescent Medicine 07/24/22 04/05/23 Heidi Rivers APRN 2017 [facility] [address] [place] [address] PCP - General Nurse Practitioner 04/06/23 Neptali Bergman MD [address] [facility] [address] [place] [address] Hematology and Oncology 10/31/24 documented as of this encounter
--- OUTSIDE RECORDS SUMMARY | 2025-04-30 09:30 | XMS_ITS | Referral Summary ---
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) - Unsigned Social History Tobacco Use Types Packs/Day Years [...] Date Jeff rded Speak language other than Citizen Of [place] at home Not on file 06/04/2023 Want [...] 05/14/2025 8:00 AM EST Lab Patient Walk-In [place] [facility] Oncology - [place] [address] [place] [address] 05/14/2025 8:30 AM EST Appointment [facility] CT - [address] [place] [address] Neptali Bergman MD [address] [facility] [address] [place] [address] 05/14/2025 10:00 AM EST Appointment [facility] MRI - [address] [facility] [address] [place] [address] Neptali Bergman MD [address] [facility] [address] [place] [address] 05/14/2025 2:15 PM EST Office Visit [place] [facility] Oncology - [address] [facility] [address] [place] [address] Neptali Bergman MD [address] [facility] [address] [place] [address] Insurance [employer] MEDICARE PPO [employer] MEDICARE PPO Advance Directives For more information, please contact: [phone] Documents on File Type Date Recorded Patient Dog Or Horse Racing Official Expl anation Advance Directives and Livin g Will 12/08/2022 8:51 AM Care Teams Sales Service Professional Relationship Specialty Start Date End Date Heidi Rivers APRN 2017 [facility] [address] [place] [address] PCP - General Nurse Practitioner 04/06/23 Neptali Bergman MD [address] [place] [address] Hematology and Oncology 10/31/24
--- OUTSIDE RECORDS SUMMARY | 2025-04-30 09:30 | XMS_ITS | Encounter Summary ---
Author Organization [employer] ([place], [place], [place], [place], [place]) Address [address] [place] [address] Care Team Providers Care Heading And Priming Operator Name Role Phone Jonas Navas MD Primary Care Provider [phone] Marcell Uriostegui MD Primary Care Provider + [phone] Heidi Rivers APRN Primary Care Provider + [phone] Neptali Bergman MD Unavailable [phone] Encounter Details Date Type Department Care Team (Late st Contact Info) Description 07/31/2019 Transcribed Document [facility] [place] [address] ProviderJennifer MD [address] [place] [address] Social History Tobacco Use Types Packs/Day Years Used Date Smoking Tobacco: Never Assessed Comments Unknown Sex and Gender Information Value Date Recorded Sex Assigned at Not on file Legal Sex Female 1:09 PM CDT Gender Identity Not on file Sexual Orientation Not on file documented as of this encounter Miscellaneous Notes * Cerner Conversion Note - Jennifer ProviderMD - 07/31/2019 5:00 AM CDT Chart Check - Review Order Profile Entered On: 07/31/2019 7:07 EDT Performed On: 07/31/2019 5:00 EDT by Janis Pickens RN Chart Check All Active Orders Reviewed : Yes Janis Pickens RN - 07/31/2019 7:07 EDT Electronically signed by Hossein [facility] Conversion Staff Nurse [employer] Resource Team Cerner at 09/10/2022 12:46 AM CDT documented in this encounter Plan of Treatment Upcoming Encounters Date Type Department Care Team (Late st Contact Info) Description 05/14/2025 8:00 AM EST Lab Patient Walk-In [place] [facility] Oncology - [address] [place] [address] 05/14/2025 8:30 AM EST Appointment [facility] [address] - [address] [place] [address] [place] [address] [place] [address] [address] [place] [address] 05/14/2025 10:00 AM EST Appointment [facility] MRI - [address] [place] [address] Neptali Bergman MD [address] [facility] [address] [place] [address] 05/14/2025 2:15 PM EST Office Visit [facility] Oncology - [address] [place] [address] Neptali Bergman MD [address] [facility] [address] [place] [address] documented as of this encounter Visit Diagnoses Not on filedocumented in this encounter Care Teams Heading And Priming Operator Relationship Specialty Start Date End Date Jonas Navas MD 1401 [facility] [address] [place] [address] PCP - General Cardiothoracic Surgery 04/15/22 07/23/22 Marcell Uriostegui MD [address] [place] [address] PCP - General Adolescent Medicine 07/24/22 04/05/23 Heidi Rivers, ROMERO 2017 [facility] [address] [place] [address] PCP - General Nurse Practitioner 04/06/23 Neptali Bergman MD [address] [facility] [address] [place] [address] Hematology and Oncology 10/31/24 documented as of this encounter
--- OUTSIDE RECORDS SUMMARY | 2025-04-30 09:30 | XMS_ITS | Encounter Summary ---
Author Organization [id number] ([place], [place], [place], [place], [place]) Address [address] [place] [address] Care Team Providers Care Threader Name Role Phone Jonas Navas MD Primary Care Provider [phone] Marcell Uriostegui MD Primary Care Provider + [phone] Heidi Rivers APRN Primary Care Provider + [phone] Neptali Bergman MD Unavailable [phone] Encounter Details Date Type Department Care Team (Late st Contact Info) Description 07/30/2019 Transcribed Document [facility] [place] [facility] [place] [address] ProviderJennifer MD [address] [place] [address] Social History Tobacco Use Types Packs/Day Years Used Date Smoking Tobacco: Never Assessed Comments Unknown Sex and Gender Information Value Date Recorded Sex Assigned at Not on file Legal Sex Female 1:09 PM CDT Gender Identity Not on file Sexual Orientation Not on file documented as of this encounter Miscellaneous Notes * Cerner Conversion Note - Jennifer ProviderMD - 07/30/2019 3:00 AM CDT Merchandise Marker Details Entered On: 07/30/2019 4:36 EDT Performed On: 07/30/2019 3:00 EDT by Janis Pickens RN Order Details Transport Mode Order Detail : Wheelchair Isolation Precautions Order Detail : Standard Precautions Order Detail : 0 IV Order Detail : 1 Oxygen Order Detail : 1 Nurse Collect Order Detail : 0 Lift/Transfer : Minimal Central Line Order Detail : No Room Service : Appropriate Arterial Line : No Celio, August, RN - 07/30/2019 4:35 EDT documented in this encounter Plan of Treatment Upcoming Encounters Date Type Department Care Team (Late st Contact Info) Description 05/14/2025 8:00 AM EST Lab Patient Walk-In [facility] - [place] [place] [address] 05/14/2025 8:30 AM EST Appointment [facility] [address] [facility] [address] [place] [address] Neptali Bergman MD [facility] [address] [place] [address] 05/14/2025 10:00 AM EST Appointment [facility] MRI - [address] [facility] [address] [place] [address] Neptali Bergman MD [facility] [address] [place] [address] 05/14/2025 2:15 PM EST Office Visit [facility] - [place] [address] [place] [address] Neptali Bergman MD [facility] [address] [place] [address] [place] [address] documented as of this encounter Visit Diagnoses Not on filedocumented in this encounter Care Teams Threader Relationship Specialty Start Date End Date Jonas Navas MD [address] [facility] [address] [place] [address] PCP - General Cardiothoracic Surgery 04/15/22 07/23/22 Marcell Uriostegui MD [address] [facility] [address] [place] [address] PCP - General Adolescent Medicine 07/24/22 04/05/23 Heidi Rivers APRN [address] [facility] [address] [place] [address] PCP - General Nurse Practitioner 04/06/23 Neptali Bergman MD [address] [facility] [address] [place] [address] Hematology and Oncology 10/31/24 documented as of this encounter
--- OUTSIDE RECORDS SUMMARY | 2025-04-30 09:30 | XMS_ITS | Encounter Summary ---
Author Organization [employer] ([place], [place], [place], [place], [place]) Address [address] [place] [address] Care Team Providers Care Dressmaker Garment Fitter Name Role Phone Jonas Navas MD Primary Care Provider [phone] Marcell Uriostegui MD Primary Care Provider + [phone] Heidi Rivers APRN Primary Care Provider + [phone] Neptali Bergman MD Unavailable Encounter Details Date Type Department Care Team (Late st Contact Info) Description 12/07/2020 Transcribed Document [facility] [place] [facility] [place] [address] ProviderJennifer MD [address] [place] [address] Social History Tobacco Use Types Packs/Day Years Used Date Smoking Tobacco: Never Assessed Comments Unknown Sex and Gender Information Value Date Recorded Sex Assigned at Not on file Legal Sex Female 1:09 PM CDT Gender Identity Not on file Sexual Orientation Not on file documented as of this encounter Miscellaneous Notes * Cerner Conversion Note - Jennifer ProviderMD - 12/07/2020 3:57 PM CDT Pain Assessment Entered On: 12/07/2020 16:59 EDT Performed On: 12/07/2020 17:07 EDT by Dalila Collier RN-PATIENT CARE BEDSIDE NON-EXEMPT Intervention Information: ibuprofen Performed by Dalila Collier RN-PATIENT CARE BEDSIDE NON-EXEMPT on 12/07/2020 16:07:00 EDT ibuprofen,200mg Oral Pain Assessment Pain Assessment : Follow-up assessment Pain Scale Goal : 2 Pain Scale Used : 0-10 Scale Dalila Collier RN-PATIENT CARE BEDSIDE NON-EXEMPT - 12/07/2020 16:58 EDT Pain Scale Intensity : 3 Dalila Collier RN-PATIENT CARE BEDSIDE NON-EXEMPT - 12/07/2020 16:58 EDT Image 4 - Images currently included in the form version of this document have not been included in the text rendition version of the form. documented in this encounter Plan of Treatment Upcoming Encounters Date Type Department Care Team (Late st Contact Info) Description 05/14/2025 8:00 AM EST Lab Patient Walk-In [facility] - [place] [address] [place] [address] 05/14/2025 8:30 AM EST Appointment [facility] CT - [address] [facility] [address] [place] [address] [facility] [address] [place] [address] 05/14/2025 10:00 AM EST Appointment [facility] MRI - [address] [facility] [address] [place] [address] Neptali Bergman MD [facility] [address] [place] [address] [place] [address] 05/14/2025 2:15 PM EST Office Visit [facility] - [address] [place] [address] [facility] [address] [place] [address] [place] [address] documented as of this encounter Visit Diagnoses Not on filedocumented in this encounter Care Teams Dressmaker Garment Fitter Relationship Specialty Start Date End Date Jonas Navas MD [address] [facility] [address] [place] [address] PCP - General Cardiothoracic Surgery 04/15/22 07/23/22 Marcell Uriostegui MD [address] [facility] [address] [place] [address] PCP - General Adolescent Medicine 07/24/22 04/05/23 Heidi Rivers APRN 2017 [facility] [address] [place], [place] [id number] PCP - General Nurse Practitioner 04/06/23 Neptali Bergman MD [address] [facility] [address] [place] [address] Hematology and Oncology 10/31/24 documented as of this encounter
--- OUTSIDE RECORDS SUMMARY | 2025-04-30 09:30 | XMS_ITS | Encounter Summary ---
Author Organization [employer] ([place], [place], [place], [place], [place]) Address [address] [place] [address] Care Team Providers Care Papier Mache' Molder Name Role Phone Jonas Navas MD Primary Care Provider [phone] Marcell Uriostegui MD Primary Care Provider + [phone] Heidi Rivers APRN Primary Care Provider + [phone] Neptali Bergman MD Unavailable Encounter Details Date Type Department Care Team (Late st Contact Info) Description 07/29/2019 Transcribed Document [facility] [place] [facility] [place] [address] ProviderJennifer MD [address] [place] [address] Social History Tobacco Use Types Packs/Day Years Used Date Smoking Tobacco: Never Assessed Comments Unknown Sex and Gender Information Value Date Recorded Sex Assigned at Not on file Legal Sex Female 1:09 PM CDT Gender Identity Not on file Sexual Orientation Not on file documented as of this encounter Miscellaneous Notes * Cerner Conversion Note - Jennifer ProviderMD - 07/29/2019 2:00 AM CAR LUBRICATOR Lath Tier Details Entered On: 07/29/2019 5:09 EST Performed On: 07/29/2019 2:00 EST by Janis Pickens RN Order Details Transport Mode Order Detail : Stretcher/Gurney Isolation Precautions Order Detail : Standard Precautions Order Detail : 0 IV Order Detail : 1 Oxygen Order Detail : 1 Nurse Collect Order Detail : 0 Lift/Transfer : Minimal Central Line Order Detail : No Room Service : Appropriate Arterial Line : No Celio, August, RN - 07/29/2019 5:09 EST Electronically signed by [facility] Conversion Gutter Mouth Cutter Cerner at 09/10/2022 12:47 AM CDT documented in this encounter Plan of Treatment Upcoming Encounters Date Type Department Care Team (Late st Contact Info) Description 05/14/2025 8:00 AM EST Lab Patient Walk-In [facility] - [place] [address] [place] [address] 05/14/2025 8:30 AM EST Appointment [facility] CT - [facility] [address] [facility] [address] [place] [address] Neptali Bergman MD [facility] [address] [place] [address] 05/14/2025 10:00 AM EST Appointment [facility] MRI - [address] [facility] [address] [place] [address] Neptali Bergman MD [facility] [address] [place] [address] 05/14/2025 2:15 PM EST Office Visit [facility] - [place] [address] [place] [address] Neptali Bergman MD [facility] [address] [place] [address] documented as of this encounter Visit Diagnoses Not on filedocumented in this encounter Care Teams Papier Mache' Molder Relationship Specialty Start Date End Date Jonas Navas MD [address] [facility] [address] [place] [address] PCP - General Cardiothoracic Surgery 04/15/22 07/23/22 Marcell Uriostegui MD [address] [facility] [address] [place] [address] PCP - General Adolescent Medicine 07/24/22 04/05/23 Heidi Rivers APRN 2017 [facility] [address] [place] [address] PCP - General Nurse Practitioner 04/06/23 Neptali Bergman MD [address] [facility] [address] [place] [address] Hematology and Oncology 10/31/24 documented as of this encounter
--- OUTSIDE RECORDS SUMMARY | 2025-04-30 09:30 | XMS_ITS | Encounter Summary ---
Author Organization [employer] ([place], [place], [place], [place], [place]) Address [address] [place] [address] Care Team Providers Care Clinical Dental Technician Name Role Phone Jonas Navas MD Primary Care Provider [phone] Marcell Uriostegui MD Primary Care Provider + [phone] Heidi Rivers APRN Primary Care Provider + [phone] Neptali Bergman MD Unavailable [phone] Encounter Details Date Type Department Care Team (Late st Contact Info) Description 07/31/2019 Transcribed Document [facility] [place] [facility] [place] [address] ProviderJennifer MD [address] [place] [address] Social History Tobacco Use Types Packs/Day Years Used Date Smoking Tobacco: Never Assessed Comments Unknown Sex and Gender Information Value Date Recorded Sex Assigned at Not on file Legal Sex Female 1:09 PM CDT Gender Identity Not on file Sexual Orientation Not on file documented as of this encounter Miscellaneous Notes * Cerner Conversion Note - Jennifer ProviderMD - 07/31/2019 3:20 PM CDT Pain Assessment Entered On: 08/02/2019 3:48 EDT Performed On: 08/01/2019 19:20 EDT by Janis Pickens RN Intervention Information: oxyCODONE Performed by YUNI GHOTRA RN on 08/01/2019 18:20:00 EDT oxyCODONE,10mg Oral,Pain (Severe 7-10) Pain Assessment Pain Assessment : Follow-up assessment Pain Scale Goal : 3 Pain Scale Used : 0-10 Scale Janis Pickens RN - 08/02/2019 3:48 EDT Pain Scale Intensity : 0 Janis Pickens RN - 08/02/2019 3:48 EDT Image 4 - Images currently included in the form version of this document have not been included in the text rendition version of the form. documented in this encounter Plan of Treatment Upcoming Encounters Date Type Department Care Team (Late st Contact Info) Description 05/14/2025 8:00 AM EST Lab Patient Walk-In [facility] - [place] [place] [address] 05/14/2025 8:30 AM EST Appointment [facility] Imaging CT - [facility] [address] [facility] [address] [place] [address] Neptali Bergman MD [address] [place] [address] [address] [place] [address] 05/14/2025 10:00 AM EST Appointment [facility] MRI - [facility] [address] [facility] [address] [place] [address] Neptali Bergmna MD [address] [place] [address] [address] [place] [address] 05/14/2025 2:15 PM EST Office Visit [facility] - [address] [place] [address] Neptali Bergman MD [address] [place] [address] [address] [place] [address] documented as of this encounter Visit Diagnoses Not on filedocumented in this encounter Care Teams Clinical Dental Technician Relationship Specialty Start Date End Date Jonas Navas MD [address] [facility] [address] [place] [id number] PCP - General Cardiothoracic Surgery 04/15/22 07/23/22 Marcell Uriostegui MD [address] [place] [address] [place] [address] PCP - General Adolescent Medicine 07/24/22 04/05/23 Heidi Rivers APRN 2017 [facility] [address] [place] [address] PCP - General Nurse Practitioner 04/06/23 Neptali Bergman MD [address] [facility] [address] [place] [address] Hematology and Oncology 10/31/24 documented as of this encounter
--- OUTSIDE RECORDS SUMMARY | 2025-04-30 09:30 | XMS_ITS | Encounter Summary ---
Author Organization [employer] ([place], [place], [place], [place], [place]) Address [address] [place] [address] Care Team Providers Care Issuing Operator Name Role Phone Jonas Navas MD Primary Care Provider [phone] Marcell Uriostegui MD Primary Care Provider + [phone] Heidi Rivers APRN Primary Care Provider + [phone] Neptali Bergman MD Unavailable Encounter Details Date Type Department Care Team (Late st Contact Info) Description 12/07/2020 Transcribed Document [facility] [place] [facility] [place] [address] ProviderJennifer MD [address] [place] [address] Social History Tobacco Use Types Packs/Day Years Used Date Smoking Tobacco: Never Assessed Comments Unknown Sex and Gender Information Value Date Recorded Sex Assigned at Not on file Legal Sex Female 1:09 PM CDT Gender Identity Not on file Sexual Orientation Not on file documented as of this encounter Miscellaneous Notes * Cerner Conversion Note - Jennifer Arroyo MD - 12/07/2020 3:29 PM CDT Pain Assessment Entered On: 12/07/2020 19:25 EDT Performed On: 12/07/2020 18:23 EDT by Dalila Collier RN-PATIENT CARE BEDSIDE NON-EXEMPT Intervention Information: acetaminophen-HYDROcodone Performed by Dalila Collier RN-PATIENT CARE BEDSIDE NON-EXEMPT on 12/07/2020 17:23:00 EDT acetaminophen-HYDROcodone,1Tab Oral,Pain (Moderate 4-6) Pain Assessment Pain Assessment : Follow-up assessment Pain Scale Goal : 2 Pain Scale Used : 0-10 Scale Dalila Collier RN-PATIENT CARE BEDSIDE NON-EXEMPT - 12/07/2020 19:24 EDT Pain Scale Intensity : 4 Dalila Collier RN-PATIENT CARE BEDSIDE NON-EXEMPT - 12/07/2020 19:24 EDT Image 4 - Images currently included in the form version of this document have not been included in the text rendition version of the form. documented in this encounter Plan of Treatment Upcoming Encounters Date Type Department Care Team (Late st Contact Info) Description 05/14/2025 8:00 AM EST Lab Patient Walk-In [place] [facility] - [address] [place] [address] 05/14/2025 8:30 AM EST Appointment [facility] CT - [address] [facility] [address] [place] [address] Neptali Bergman MD [address] [facility] [address] [place] [address] 05/14/2025 10:00 AM EST Appointment [facility] MRI - [facility] [address] [facility] [address] [place] [address] Neptali Bergman MD [address] [place] [address] 05/14/2025 2:15 PM EST Office Visit [facility] - [address] [place] [address] Neptali Bergman MD [address] [place] [address] documented as of this encounter Visit Diagnoses Not on filedocumented in this encounter Care Teams Issuing Operator Relationship Specialty Start Date End Date Jonas Navas MD [address] [facility] [address] [place], [place] [id number] PCP - General Cardiothoracic Surgery 04/15/22 07/23/22 Marcell Uriostegui MD [address] [facility] [address] [place] [address] PCP - General Adolescent Medicine 07/24/22 04/05/23 Heidi Rivers, ROMERO [address] [place] [address] PCP - General Nurse Practitioner 04/06/23 Neptali Bergman MD [address] [facility] [address] [place] [address] Hematology and Oncology 10/31/24 documented as of this encounter
== END 2025-04-30 23:59 | disposition home or self-care (01) ==
LOC: RAD 09:04
PROVIDERS: PCP Nurse Practitioner Family; Visit Provider Nurse Practitioner Family
DX: I08.1 Rheumatic disorders of both mitral and tricuspid valves (principal); I25.2 Old myocardial infarction; J44.9 Chronic obstructive pulmonary disease, unspecified; F17.200 Nicotine dependence, unspecified, uncomplicated; R93.1 Abnormal findings on diagnostic imaging of heart and coronary circulation; R93.7 Abnormal findings on diagnostic imaging of other parts of musculoskeletal system; Z78.0 Asymptomatic menopausal state
CPT/HCPCS: 77080; 93306

== ENCOUNTER 2025-05-21 09:24 | Inpatient (IN) | payer MEDICARE, SELFPAY ==
--- OUTSIDE RECORDS SUMMARY | 2025-05-14 08:29 | XMS_ITS | Encounter Summary ---
Author Organization [employer] ([place], [place], [place], [place], [place]) Address [address] [place] [address] Care Team Providers Care Resourcing Consultant Name Role Phone Tita Heidi ROMERO Primary Care Provider [phone] Neptali Bergman MD Unavailable [phone] Reason for Referral * CAT Scan (Routine) - Closed Specialty Diagnoses / Procedures Referred By Paige kruger Referred To Contact Radiology Diagnoses Malignant neoplasm of upper lobe bronchus, left (HCC) Procedures CT CAP w Neptali Bergman MD [address] [place] [address] Phone: tel: fax: [facility] CT - [facility] [address] [place] [address] Phone: tel: fax: Referral ID Status Reason Start Date Expiration Date Visits Re quested Visits Authorized [id number] Closed 05/01/2025 05/01/2026 1 1 Reason for Visit * CAT Scan (Routine) - Closed Specialty Diagnoses / Procedures Referred By Paige kruger Referred To Contact Radiology Diagnoses Malignant neoplasm of upper lobe bronchus, left (HCC) Procedures CT CAP w Neptali Bergman MD [address] [place] [address] Phone: tel: fax: [facility] CT - [address] [place] [address] Phone: tel: fax: Referral ID Status Reason Start Date Expiration Date Visits Re quested Visits Authorized [id number] Closed 05/01/2025 05/01/2026 1 1 Encounter Details Date Type Department Care Team (Latest Contact Info) Description 05/14/2025 8:29 AM EST - 05/14/2025 9:16 AM [facility] [place] Hospital Encounter [facility] CT - [address] [place] [address] Neptali Bergman MD [address] [place] [address] Malignant neoplasm of upper lobe bronchus, left (HCC) Discharge Disposition: Home or Self Care Social History Tobacco Use Types Packs/Day Years Used Date Smoking Tobacco: Every Day Cigarettes Smokeless Tobacco: Never Alcohol Use Standard Drinks/Week Comments Never 0 (1 standard drink = 0.6 oz pur e alcohol) Family and Community Support Answer Archie e Recorded Help with Day to Day Activities Not on file 06/04/2023 Feeling Lonely or Isolated Not on file 06/04 Educational Attainment Answer Date Jeff rded Speak language other than Romanian at home Not on file 06/04/2023 Want [...] on file documented as of this encounter Medications at Time of Discharge albuterol HFA (VENTOLIN HFA) 90 mcg/actuation inhaler albuterol sulfate HFA 90 mcg/actuation aerosol inhaler aspirin 325 MG tablet Take 1 tablet (325 mg total) by mouth daily. atorvastatin (LIPITOR) 40 MG tablet atorvastatin 40 mg tablet fluticasone propionate (FLONASE) 50 mcg/actuation nasal spray SMARTSIG:Both Nares 3 fluticasone/umeclid in/vilanter (TRELEGY ELLIPTA INHL) Inhale 1 puff by mouth via inhaler daily. lisinopril-hydroCHL OROthiazide (PRINZIDE,ZESTORETI C) 20-25 mg per tablet lisinopril 20 mg-hydrochlorothi azide 25 mg tablet montelukast (SINGULAIR) 10 mg tablet SMARTSI.0 Tablet(s) By Mouth Daily 4 omeprazole (PriLOSEC) 20 MG capsule Take by mouth. 2 ondansetron (ZOFRAN-ODT) 8 MG disintegrating tablet as needed . promethazine (PHENERGAN) 25 MG tablet as needed. promethazine-dextro methorphan (PROMETHAZINE-DM) 6.25-15 mg/5 mL syrup promethazine-DM 6.25 mg-15 mg/5 mL oral syrup documented as of this encounter Plan of Treatment Upcoming Encounters Date Type Department Care Team (Late st Contact Info) Description 11/12/2025 3:30 PM EDT Office Visit [facility] - [facility] [address] [place] [address] Neptali Bergman MD [address] [place] [address] documented as of this encounter Procedures Procedure Name Priority Date/Time Associated Diagnosis Comments CT CHEST ABDOMEN PELVIS W CONTRAST Routine 05/14/2025 9:06 AM EST Malignant neoplasm of upper lobe bronchus, left (HCC) documented in this encounter Results * CT CAP w (05/14/2025 9:06 AM EST) Anatomical Region Laterality Modality Abdomen, Chest, Pelvis, Hip Comp uted Tomography (CT) 05/14/2025 9:17 AM EST Impressions 05/14/2025 9:23 AM EST Chronic findings. No significant change. No findings suspicious for recurrent or metastatic disease in the chest, abdomen, or pelvis. Narrative 05/14/2025 9:[address] chest, abdomen, and pelvis with IV contrast HISTORY: Lung cancer FINDINGS: Postcontrast imaging. Comparison date 10/31/2024. This study was performed with techniques to keep radiation doses as low as reasonably achievable (ALARA). Individualized dose reduction techniques using automated exposure control or adjustment of mA and/or kV according to the patient's size were employed. CT CHEST: A port overlies the right chest. There is no axillary, mediastinal, or hilar adenopathy. There are coronary calcifications. There are surgical clips the left hilum. There is no pericardial or pleural effusion. There is volume loss on the left compatible with partial left lung resection. There is a 31 mm small fluid collection in the posterior left infrahilar region which is stable. CT abdomen and pelvis: There are no liver lesions. There is no gallbladder or bile duct dilatation. The pancreas, spleen, and adrenal glands appear normal. There is artifact from spinal hardware. There is no hydronephrosis. There are small renal cysts. The bladder is incompletely distended. There is no pelvic mass or free fluid. There is diverticulosis without acute diverticulitis. There are no inflammatory changes. There is no large or small bowel dilatation. There is posterior fusion hardware at L5-S1. There is grade 1 spondylolisthesis of L5 on S1. There are no suspicious bone lesions. Procedure Note Brittni Pham MD - 05/14/2025 CT chest, abdomen, and pelvis with IV contrast HISTORY: Lung cancer FINDINGS: Postcontrast imaging. Comparison date 10/31/2024. This study was performed with techniques to keep radiation doses as low as reasonably achievable (ALARA). Individualized dose reduction techniques using automated exposure control or adjustment of mA and/or kV according to the patient's size were employed. CT CHEST: A port overlies the right chest. There is no axillary, mediastinal, or hilar adenopathy. There are coronary calcifications. There are surgical clips the left hilum. There is no pericardial or pleural effusion. There is volume loss on the left compatible with partial left lung resection. There is a 31 mm small fluid collection in the posterior left infrahilar region which is stable. CT abdomen and pelvis: There are no liver lesions. There is no gallbladder or bile duct dilatation. The pancreas, spleen, and adrenal glands appear normal. There is artifact from spinal hardware. There is no hydronephrosis. There are small renal cysts. The bladder is incompletely distended. There is no pelvic mass or free fluid. There is diverticulosis without acute diverticulitis. There are no inflammatory changes. There is no large or small bowel dilatation. There is posterior fusion hardware at L5-S1. There is grade 1 spondylolisthesis of L5 on S1. There are no suspicious bone lesions. IMPRESSION: Chronic findings. No significant change. No findings suspicious for recurrent or metastatic disease in the chest, abdomen, or pelvis. us Neptali Bergman MD IMG CT ORDERABLES Final Result documented in this encounter Visit Diagnoses Diagnosis Malignant neoplasm of upper lobe bronchus, left (HCC) documented in this encounter Administered Medications Inactive Administered Medications - up to 3 most recent administrations Medication Order MAR Action Action Date Dose Rate Site barium (READI-CAT 2) suspension 2% 450 mL Once, oral, On Wed05/14/25 at 0930, For 1 dose, Intra-op Given 05/14/2025 7:30 AM EST 450 mLs iopamidoL (ISOVUE-370) 370 mg iodine /mL (76 %) injection 75 mL 75 mL IMG once as needed, intravenous, contrast, Starting on Wed05/14/25 at 0854, For 1 dose, Intra-op Given 05/14/2025 8:55 AM EST [address] documented in this encounter Care Teams Resourcing Consultant Relationship Specialty Start Date End Date Heidi Rivers, ELECTROPHYSIOLOGY TECH [address] [place] [address] PCP - General Nurse Practitioner 04/06/23 Neptali Bergman MD [address] [place] [address] Hematology and Oncology 10/31/24 documented as of this encounter
--- OUTSIDE RECORDS SUMMARY | 2025-05-14 09:17 | XMS_ITS | Encounter Summary ---
Author Organization [employer] ([place], [place], [place], [place], [place]) Address [address] [place] [address] Care Team Providers Care Credit Associate Name Role Phone Heidi Rivers ROMERO Primary Care Provider [phone] Neptali Bergman MD Unavailable [phone] Reason for Visit * MRI (Routine) - Closed Specialty Diagnoses / Procedures Referred By Paige kruger Referred To Contact Radiology Diagnoses Malignant neoplasm of upper lobe bronchus, left (HCC) Procedures MRI BRAIN STEALTH W WO CONTRAST MR Brain Without & With IV Contrast Neptali Bergman MD [address] [place] [address] Phone: tel: fax: [facility] - [address] [place] [address] Phone: tel: fax: Referral ID Status Reason Start Date Expiration Date Visits Re quested Visits Authorized [id number] Closed 05/01/2025 05/01/2026 1 1 Encounter Details Date Type Department Care Team (Latest Contact Info) Description 05/14/2025 9:17 AM EST - 05/14/2025 11:59 PM EST Hospital Encounter [facility] MRI - [address] [place] [address] Neptali Bergman MD [address] [place] [address] Malignant neoplasm of upper lobe [...] Date Jeff rded Speak language other than Bahraini at home Not on file 06/04/2023 Want [...] promethazine-DM 6.25 mg-15 mg/5 mL oral syrup ALPRAZolam (XANAX) 0.5 MG tabletIndications:M alignant neoplasm of upper lobe bronchus, left (HCC) Take 1 tablet (0.5 mg total) by mouth every night as needed FOR ANXIETY. 90 tablet 3 5 predniSONE (DELTASONE) 2.5 MG tabletIndications:M alignant neoplasm of upper lobe bronchus, left (HCC) Take 1 tablet (2.5 mg total) by mouth daily with breakfast Look-alike/Soun d-alike medication. 90 tablet 3 5 documented as of this encounter Plan of Treatment Upcoming Encounters Date Type Department Care Team (Late st Contact Info) Description 11/12/2025 3:30 PM EDT Office Visit [facility] - [facility] [address] [facility] [address] [place] [address] Neptali Bergman MD [address] [facility] [address] [address] [place] [address] documented as of this encounter Procedures Procedure Name Priority Date/Time Associated Diagnosis Comments MRI BRAIN STEALTH WITH WITHOUT CONTRAST Routine 05/14/2025 10:26 AM EST Malignant neoplasm of upper lobe bronchus, left (HCC) documented in this encounter Results * MRI BRAIN STEALTH W WO CONTRAST (05/14/2025 10:26 AM EST) Anatomical Region Laterality Modality Magnetic Resonan ce (MRI) 05/14/2025 11:3 4 AM EST Impressions 05/14/2025 12:00 PM EST 1. No evidence of intra-axial metastases. 2. Mild changes of chronic right maxillary and bilateral mastoid sinusitis. Images reviewed, interpreted, and dictated by Lorenzo Buck MD Narrative 05/14/2025 12:00 PM EST Name: ALEJANDRINA YEH : 1955 PRE AND POST-INFUSION BRAIN MRI HISTORY: Non-small cell lung cancer with brain metastases. COMPARISON: Brain MRI from 31 October 2024 FINDINGS: On the sagittal images, midline structures appear intact. On the T2 and FLAIR axial images, there is moderate abnormal signal identified within the periventricular and subcortical white matter bilaterally. On the pre and post-infusion images, there is no evidence of localized intra-axial lesion. No specific findings to suggest presence of metastasis. Mild lobular mucoperiosteal thickening is seen in the right maxillary sinus. No air-fluid levels are seen. In addition, there are some patchy abnormal signal in the mastoid air cells bilaterally, right greater than left. Procedure Note Lorenzo Buck MD - 05/14/2025 Name: ALEJANDRINA YEH : 1955 PRE AND POST-INFUSION BRAIN MRI HISTORY: Non-small cell lung cancer with brain metastases. COMPARISON: Brain MRI from 31 October 2024 FINDINGS: On the sagittal images, midline structures appear intact. On the T2 and FLAIR axial images, there is moderate abnormal signal identified within the periventricular and subcortical white matter bilaterally. On the pre and post-infusion images, there is no evidence of localized intra-axial lesion. No specific findings to suggest presence of metastasis. Mild lobular mucoperiosteal thickening is seen in the right maxillary sinus. No air-fluid levels are seen. In addition, there are some patchy abnormal signal in the mastoid air cells bilaterally, right greater than left. IMPRESSION: 1. No evidence of intra-axial metastases. 2. Mild changes of chronic right maxillary and bilateral mastoid sinusitis. Images reviewed, interpreted, and dictated by Lorenzo Buck MD us Neptali Bergman MD IMG MRI ORDERABLES Final Resul t documented in this encounter Visit Diagnoses Diagnosis Malignant neoplasm of upper lobe bronchus, left (HCC) documented in this encounter Administered Medications Inactive Administered Medications - up to 3 most recent administrations Medication Order MAR Action Action Date Dose Rate Site gadopiclenol (VUEWAY) 0.5 mmol/mL injection 7.5 mL 7.5 mL IMG once as needed, intravenous, contrast, Starting on 05/14/25 at 1007, Intra-op Given 05/14/2025 10:18 AM EST 7.5 mLs Port documented in this encounter Care Teams Credit Associate Relationship Specialty Start Date End Date Heidi Rivers, OFFICE TECHNOLOGY INSTRUCTOR [address] [place] [address] PCP - General Nurse Practitioner 04/06/23 Neptali Bergman MD [address] [facility] [address] [place] [address] Hematology and Oncology 10/31/24 documented as of this encounter
--- OUTSIDE RECORDS SUMMARY | 2025-05-14 14:15 | XMS_ITS | Encounter Summary ---
Author Organization [employer] ([place], [place], [place], [place], [place]) Address [address] [place] [address] Care Team Providers Care Transformer Stock Clerk Name Role Phone Haroldo Rivers ROMERO Primary Care Provider [phone] Neptali Bergman MD Unavailable [phone] Reason for Visit * Reason Comments Follow-up HX lUNG CANCER Encounter Details Date Type Department Care Team (Late st Contact Info) Description 05/14/2025 2:15 PM EST Office Visit [facility] [address] [place] [address] [address] [place] [address] Neptali Bergman MD [address] [place] [address] Malignant neoplasm of upper lobe bronchus, left (HCC) (Primary Dx) Social History Tobacco Use Types Packs/Day Years [...] Date Jeff rded Speak language other than Bermudian at home Not on file 06/04/2023 Want [...] on file documented as of this encounter Last Filed Vital Signs Vital Sign Reading Time Taken Comments Blood Pressure 133/71 05/14/2025 2:34 PM EST Pulse 98 05/14/2025 2:34 PM EST Temperature 36.5 C (97.7 F) 05/14/2025 2:34 PM EST Respiratory Rate 18 05/14/2025 2:34 PM EST Oxygen Saturation 94% 05/14/2025 2:34 PM EST 3 liters Inhaled Oxygen Concentration - - Weight 64.9 kg (143 lb) 05/14/2025 2:34 PM EST Height 154.9 cm (5' 1 ) 05/14/2025 2:34 PM EST Body Mass Index 27.02 05/14/2025 2:34 PM EST documented in this encounter Functional Status * BP Answer Date of Assessment Author 133/71 05/14/2025 2:34 PM AUDIO VISUAL COLLECTIONS COORDINATOR Elizabeth, Bet h A, WINDOWS LAPTOP TECHNICIAN * Temp Answer Date of Assessment Author 97.7 05/14/2025 2:34 PM AUDIO VISUAL COLLECTIONS COORDINATOR Elizabeth, Bet h A, WINDOWS LAPTOP TECHNICIAN * Pulse Answer Date of Assessment Author 98 05/14/2025 2:34 PM AUDIO VISUAL COLLECTIONS COORDINATOR Elizabeth, Bet h A, WINDOWS LAPTOP TECHNICIAN * Resp Answer Date of Assessment Author 18 05/14/2025 2:34 PM AUDIO VISUAL COLLECTIONS COORDINATOR Elizabeth, Bet h A, WINDOWS LAPTOP TECHNICIAN * SpO2 Answer Date of Assessment Author 94 05/14/2025 2:34 PM AUDIO VISUAL COLLECTIONS COORDINATOR Elizabeth, Bet h A, WINDOWS LAPTOP TECHNICIAN * Height Answer Date of Assessment Author 61 05/14/2025 2:34 PM AUDIO VISUAL COLLECTIONS COORDINATOR Elizabeth, Bet h A, WINDOWS LAPTOP TECHNICIAN * Weight Answer Date of Assessment Author 2288 05/14/2025 2:34 PM AUDIO VISUAL COLLECTIONS COORDINATOR Elizabeth, Bet h A, WINDOWS LAPTOP TECHNICIAN * Pain Score Answer Date of Assessment Author 0-No pain 05/14/2025 2:34 PM AUDIO VISUAL COLLECTIONS COORDINATOR Elizabeth, Bet h A, WINDOWS LAPTOP TECHNICIAN * Tidal Volume Answer Date of Assessment Author 280 05/14/2025 2:34 PM AUDIO VISUAL COLLECTIONS COORDINATOR Elizabeth, Bet h A, WINDOWS LAPTOP TECHNICIAN * Shock Index Answer Date of Assessment Author 0.74 05/14/2025 2:34 PM AUDIO VISUAL COLLECTIONS COORDINATOR Elizabeth, Be th A, WINDOWS LAPTOP TECHNICIAN * Pain Assessment Timer Question Answer Date of Assessment Author Restart Pain Assessment Timer Yes 05/14/2025 2:34 PM AUDIO VISUAL COLLECTIONS COORDINATOR Elizabeth, Susan A, WINDOWS LAPTOP TECHNICIAN * BMI (Calculated) Answer Date of Assessment Author 27 05/14/2025 2:34 PM AUDIO VISUAL COLLECTIONS COORDINATOR Elizabeth, Bet h A, WINDOWS LAPTOP TECHNICIAN * BP Location Answer Date of Assessment Author Left arm 05/14/2025 2:34 PM AUDIO VISUAL COLLECTIONS COORDINATOR Elizabeth, Bet h A, WINDOWS LAPTOP TECHNICIAN * Restart Vitals Timer Answer Date of Assessment Author Yes 05/14/2025 2:34 PM AUDIO VISUAL COLLECTIONS COORDINATOR Elizabeth, Bet h A, WINDOWS LAPTOP TECHNICIAN * Patient Position Answer Date of Assessment Author Sitting 05/14/2025 2:34 PM AUDIO VISUAL COLLECTIONS COORDINATOR Elizabeth, Bet h A, WINDOWS LAPTOP TECHNICIAN * BP Answer Date of Assessment Author 133/71 05/14/2025 2:34 PM AUDIO VISUAL COLLECTIONS COORDINATOR Elizabeth, Bet h A, WINDOWS LAPTOP TECHNICIAN * Pulse Answer Date of Assessment Author 98 05/14/2025 2:34 PM AUDIO VISUAL COLLECTIONS COORDINATOR Elizabeth, Bet h A, WINDOWS LAPTOP TECHNICIAN * Resp Answer Date of Assessment Author 18 05/14/2025 2:34 PM AUDIO VISUAL COLLECTIONS COORDINATOR Elizabeth, Bet h A, WINDOWS LAPTOP TECHNICIAN * SpO2 Answer Date of Assessment Author 94 05/14/2025 2:34 PM AUDIO VISUAL COLLECTIONS COORDINATOR Elizabeth, Bet h A, WINDOWS LAPTOP TECHNICIAN * BMI (Calculated) Answer Date of Assessment Author 27 05/14/2025 2:34 PM AUDIO VISUAL COLLECTIONS COORDINATOR Elizabeth, Bet h A, WINDOWS LAPTOP TECHNICIAN documented as of this encounter Mental Status * BP Answer Entry Date Author 133/71 05/14/2025 2:34 PM AUDIO VISUAL COLLECTIONS COORDINATOR Elizabeth, Bet h A, WINDOWS LAPTOP TECHNICIAN * Temp Answer Entry Date Author 97.7 05/14/2025 2:34 PM AUDIO VISUAL COLLECTIONS COORDINATOR Elizabeth, Bet h A, WINDOWS LAPTOP TECHNICIAN * Pulse Answer Entry Date Author 98 05/14/2025 2:34 PM AUDIO VISUAL COLLECTIONS COORDINATOR Elizabeth, Bet h A, WINDOWS LAPTOP TECHNICIAN * Resp Answer Entry Date Author 18 05/14/2025 2:34 PM AUDIO VISUAL COLLECTIONS COORDINATOR Elizabeth, Bet h A, WINDOWS LAPTOP TECHNICIAN * SpO2 Answer Entry Date Author 94 05/14/2025 2:34 PM AUDIO VISUAL COLLECTIONS COORDINATOR Elizabeth, Bet h A, WINDOWS LAPTOP TECHNICIAN * Height Answer Entry Date Author 61 05/14/2025 2:34 PM AUDIO VISUAL COLLECTIONS COORDINATOR Elizabeth, Bet h A, WINDOWS LAPTOP TECHNICIAN * Weight Answer Entry Date Author 2288 05/14/2025 2:34 PM AUDIO VISUAL COLLECTIONS COORDINATOR Elizabeth, Bet h A, WINDOWS LAPTOP TECHNICIAN * Pain Score Answer Entry Date Author 0-No pain 05/14/2025 2:34 PM AUDIO VISUAL COLLECTIONS COORDINATOR Elizabeth, Bet h A, WINDOWS LAPTOP TECHNICIAN * Tidal Volume Answer Entry Date Author 280 05/14/2025 2:34 PM AUDIO VISUAL COLLECTIONS COORDINATOR Elizabeth, Bet h A, WINDOWS LAPTOP TECHNICIAN * Shock Index Answer Entry Date Author 0.74 05/14/2025 2:34 PM AUDIO VISUAL COLLECTIONS COORDINATOR Elizabeth, Bet h A, WINDOWS LAPTOP TECHNICIAN * BMI (Calculated) Answer Entry Date Author 27 05/14/2025 2:34 PM AUDIO VISUAL COLLECTIONS COORDINATOR Elziabeth, Bet h A, WINDOWS LAPTOP TECHNICIAN * BP Location Answer Entry Date Author Left arm 05/14/2025 2:34 PM AUDIO VISUAL COLLECTIONS COORDINATOR Elizabeth, Bet h A, WINDOWS LAPTOP TECHNICIAN * Patient Position Answer Entry Date Author Sitting 05/14/2025 2:34 PM AUDIO VISUAL COLLECTIONS COORDINATOR Elizabeth, Bet h A, WINDOWS LAPTOP TECHNICIAN documented in this encounter Progress Notes * Neptali Bergman MD - 05/14/2025 2:15 PM EST Chief Complaint: History of Present Illness: Alejandrina Yeh is a 69 y.o. female who presents today for follow up of lung cancer. She is many years out from her diagnosis of disease that was oligometastatic. She has had no headaches weight loss.She states that she is more short of breath and uses her oxygen much more. She is on a minimal doseof steroids. She has not any new bone pain. Past Medical History: Diagnosis Date COPD (chronic obstructive pulmonary disease) (HCC) Diabetes (HCC) Dyslipidemia GERD (gastroesophageal reflux disease) Hypertension Hyperthyroidism 07/2020 Metastatic lung cancer (metastasis from lung to other site) (HCC) Myocardial infarction (HCC) 1992 TIA (transient ischemic attack) Past Surgical History: Procedure Laterality Date ANGIOPLASTY 1992 APPENDECTOMY 2006 COLONOSCOPY W/ POLYPECTOMY 2018 INSERTION,PORT lumbar back surgery 04/2020 Cancer History: Oncology History Overview Note Diagnosis of left lung cancer 07/13. A. Left lung tumor with 2.6 cm poorly differentiated adenocarcinoma with negative margins and no involvement of lymph nodes. B. Resected subcutaneous lesion with negative surgical margins from the left lower abdominal wall 02/10. C. Left adrenalectomy 04/12. D. Initiation of Keytruda 07/14. E. Resection of recurrent lesion of the left lower abdomen 06/13. F. Patient with molecular study demonstrating elevated tumor mutation burden of 11 with negative PD-1 and no other mutations such as ALK, EGFR, MET, RET, and BRAF. G. 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 H. Possible pneumonitis from Keytruda with discontinuation of immune therapy 09/27/2020. I. Alimta, Avastin, and carboplatin x7 cycles from 11/05/2020 through 03/13/2021. J. Maintenance Avastin and Alimta from 04/03/2021, discontinued 09/30/2021 with no evidence of disease. Malignant neoplasm of upper lobe bronchus, left (HCC) 10/29/2020 - 09/18/2021 Chemotherapy Treatment Summary Treatment goal Palliative Plan Name [facility] Lung - bevacizumab (Avastin) + PEMEtrexed (Alimta) + CISplatin fb bevacizumab every 21 days Status Inactive Start Date 10/29/2020 End Date 09/18/2021 Provider Neptali Bergman MD Chemotherapy CARBOplatin (PARAPLATIN) chemo injection 480 mg, 480 mg (original dose ), Intravenous,Once, 4 of 4 cycles Dose modification: 480 mg (Cycle 1) CARBOplatin (PARAPLATIN) 480 mg in sodium chloride 0.9% (NS) 250 mL chemo infusion, 480 mg (original dose ), Intravenous, Once, 3 of 3 cycles Dose modification: 480 mg (Cycle 5) PEMEtrexed disodium (ALIMTA) 895 mg in sodium chloride 0.9% (NS) 100 mL chemo infusion, 895 mg (original dose ), Intravenous, Once, 16 of 18 cycles Dose modification: 497.2 mg/m2 (Cycle 1, Reason: Other (See Comments), Comment: matched mosaiq), 895 mg (Cycle 1, Reason: Other (See Comments), Comment: Matched Mosaiq), 895 mg (Cycle 7, Reason: Other (See Comments), Comment: Matched Mosaiq) bevacizumab-awwb (MVASI) 1,200 mg in sodium chloride 0.9% (NS) 100 mL chemo infusion, 1,200 mg (original dose ), Intravenous, Once, 17 of 19 cycles Dose modification: 1,185 mg (Cycle 0) 02/03/2022 Initial Diagnosis Malignant neoplasm of upper lobe bronchus, left (HCC) Allergies: Keytruda [Pembrolizumab], Anoro Ellipta [Umeclidinium-Vilanterol], Clindamycin, Diltiazem, Levaquin[Levofloxacin], Morphine, Nadolol, Roxicet [Oxycodone- Acetaminophen], Stiolto Respimat [Tiotropium-Olodaterol], and Sulfa (Sulfonamide Antibiotics) Medications: Current Outpatient Medications on File Prior to Visit Medication Sig Dispense Refill albuterol HFA (VENTOLIN HFA) 90 mcg/actuation inhaler albuterol sulfate HFA 90 mcg/actuation aerosol inhaler ALPRAZolam (XANAX) 0.5 MG tablet TAKE 1 TABLET BY MOUTH EVERY NIGHT NEEDED FOR ANXIETY 90 tablet1 aspirin 325 MG tablet Take 1 tablet (325 mg total) by mouth daily. atorvastatin (LIPITOR) 40 MG tablet atorvastatin 40 mg tablet fluticasone propionate (FLONASE) 50 mcg/actuation nasal spray SMARTSIG:Both Nares fluticasone/umeclidin/vilanter (TRELEGY ELLIPTA INHL) Inhale 1 puff by mouth via inhaler daily. lisinopril-hydroCHLOROthiazide (PRINZIDE,ZESTORETIC) 20-25 mg per tablet lisinopril 20 mg-hydrochlorothiazide 25 mg tablet montelukast (SINGULAIR) 10 mg tablet SMARTSI.0 Tablet(s) By Mouth Daily omeprazole (PriLOSEC) 20 MG capsule Take by mouth. ondansetron (ZOFRAN-ODT) 8 MG disintegrating tablet as needed . predniSONE (DELTASONE) 2.5 MG tablet Take 1 tablet (2.5 mg total) by mouth daily with breakfast Look-alike/Sound-alike medication. 90 tablet 3 promethazine (PHENERGAN) 25 MG tablet as needed. promethazine-dextromethorphan (PROMETHAZINE-DM) 6.25-15 mg/5 mL syrup promethazine-DM 6.25 mg-15 mg/5 mL oral syrup [DISCONTINUED] lisinopril-hydroCHLOROthiazide (PRINZIDE,ZESTORETIC) 10-12.5 mg per tablet Take 1 tablet by mouth daily. No current facility-administered medications on file prior to visit. Review of Systems: Review of Systems Respiratory: Positive for shortness of breath. All other systems reviewed and are negative. Vitals: Vitals: 05/14/25 1434 BP: 133/71 Pulse: 98 Resp: 18 Temp: 97.7 ??F (36.5 ??C) SpO2: 94% Weight: 64.9 kg (143 lb) Height: 1.549 m (5' 1 ) Physical Exam: Physical Exam Vitals reviewed. Constitutional: Appearance: Normal appearance. HENT: Head: Normocephalic and atraumatic. Mouth/Throat: Mouth: Mucous membranes are moist. Pharynx: Oropharynx is clear. Eyes: Extraocular Movements: Extraocular movements intact. Conjunctiva/sclera: Conjunctivae normal. Pupils: Pupils are equal, round, and reactive to light. Neck: Comments: No cervical supraclavicular or axillary adenopathy Cardiovascular: Rate and Rhythm: Normal rate and regular rhythm. Pulses: Normal pulses. Heart sounds: Normal heart sounds. Pulmonary: Effort: Pulmonary effort is normal. Breath sounds: Normal breath sounds. Comments: No dullness to percussion in the lung bases bilaterally Abdominal: General: Abdomen is flat. Bowel sounds are normal. Palpations: Abdomen is soft. Comments: No hepatomegaly below the right costal margin Musculoskeletal: General: Normal range of motion. Cervical back: Normal range of motion and neck supple. Comments: No new areas of bone pain Neurological: General: No focal deficit present. Mental Status: She is alert. Mental status is at baseline. Comments: No deficits Relevant Results: Lab Patient Walk-In on 05/14/2025 Component Date Value Ref Range Status Protein, Total 05/14/2025 8.6 (H) 6.4 - 8.2 gm/dL Final Albumin 05/14/2025 3.9 3.4 - 5.0 g/dL Final Total Bilirubin 05/14/2025 0.7 0.2 - 1.3 mg/dL Final Bilirubin, Direct 05/14/2025 0.1 0.0 - 0.2 mg/dL Final Alkaline Phosphatase 05/14/2025 121 27 - 136 U/L Final Globulin 05/14/2025 4.7 (H) 1.5 - 4.5 g/dL Final A/G Ratio 05/14/2025 0.8 (L) 1.1 - 2.5 Final AST 05/14/2025 24 5 - 37 U/L Final [employer] has become aware of sulfasalazine and sulfapyridine drug interference in the assays ALT, AST, T4, CKMB, glucose, and ammonia. The probability of misinterpretation of results for the assays is remote and would be limited to scenarios where a patient has taken the drug and had a blood sample drawn before clearance of the drug to a level that does not interfere with laboratory testing. Venipuncture should occur prior to administration of the drug. ALT 05/14/2025 23 12 - 78 U/L Final [employer] has become aware of sulfasalazine and sulfapyridine drug interference in the assays ALT, AST, T4, CKMB, glucose, and ammonia. The probability of misinterpretation of results for the assays is remote and would be limited to scenarios where a patient has taken the drug and had a blood sample drawn before clearance of the drug to a level that does not interfere with laboratory testing. Venipuncture should occur prior to administration of the drug. Sodium 05/14/2025 137 136 - 146 meq/L Final Potassium 05/14/2025 4.1 3.5 - 5.1 meq/L Final Chloride 05/14/2025 98 98 - 108 meq/L Final CO2 05/14/2025 34 (H) 22 - 29 meq/L Final Anion Gap 05/14/2025 9 9 - 20 Final BUN 05/14/2025 24 (H) 7 - 18 mg/dL Final Creatinine 05/14/2025 0.80 0.60 - 1.10 mg/dL Final BUN/Creatinine 05/14/2025 30 (H) 8 - 20 Final Glucose 05/14/2025 103 70 - 105 mg/dL Final Calcium Ionized (mg/dL) 05/14/2025 4.56 4.36 - 5.20 mg/dL Final WBC 05/14/2025 13.7 (H) 4.5 - 12.5 K/??L Final RBC 05/14/2025 4.39 4.00 - 5.25 M/??L Final Hemoglobin 05/14/2025 12.8 12.0 - 16.0 GM/DL Final Hematocrit 05/14/2025 41.5 36.0 - 46.0 % Final MCV 05/14/2025 95 80 - 100 fL Final MCH 05/14/2025 29.2 26.0 - 34.0 pg Final MCHC 05/14/2025 30.8 (L) 31.0 - 37.0 GM/DL Final RDW 05/14/2025 15.6 12.0 - 16.8 % Final Platelets 05/14/2025 184 140 - 440 K/CU MM Final MPV 05/14/2025 10.6 (H) 7.4 - 10.4 fL Final % Neutros 05/14/2025 79 45 - 80 % Final % Lymphs 05/14/2025 12 (L) 15 - 45 % Final % Monos 05/14/2025 8 0 - 10 % Final % Eos 05/14/2025 0.8 0.0 - 5.0 % Final % Baso 05/14/2025 0 0 - 3 % Final # Neutros 05/14/2025 10.80 (H) 2.00 - 8.80 K/??L Final # Lymphs 05/14/2025 1.68 0.70 - 5.50 K/??L Final # Monos 05/14/2025 1.08 0.00 - 1.70 K/??L Final # Eos 05/14/2025 0.11 0.00 - 0.80 K/??L Final # Baso 05/14/2025 0.02 0.00 - 0.20 K/??L Final MRI BRAIN STEALTH W WO CONTRAST Result Date: 05/14/2025 Name: ALEJANDRINA YEH : 1955 PRE [...] mucoperiosteal thickening is seen in the right maxillarysinus. No air-fluid levels are seen. In addition, there are some patchy abnormal signal in the masto id air cells bilaterally, right greater than left. 1. No evidence of intra-axial metastases. 2. Mild changes of chronic right maxillary and bilateral mastoid sinusitis. Images reviewed, interpreted, and dictated by Lorenzo Buck MD CT CAP w Result Date: 05/14/2025 CT chest, abdomen, and pelvis with IV contrast HISTORY: Lung cancer FINDINGS: Postcontrast imaging.Comparison date 10/31/2024. This study was performed with [...] lung resection. There is a 31 mm s mall fluid collection in the posterior left infrahilar [...] S1. There are no suspicious bone lesions. Chronic findings. No significant change. No findings suspicious for recurrent or metastatic diseasein the chest, abdomen, or pelvis. Cancer Staging Malignant neoplasm of upper lobe bronchus, left (HCC) Staging form: Lung, AJCC 8th Edition - Clinical stage from 07/25/2019: Stage IA2 (cT1b, cN0, cM0) - Unsigned - Pathologic stage from 07/02/2020: Stage IV (pT0, pN0, pM1) - Unsigned Plan: The MRI of the brain and the CT scan were both great. I Marysol sent in prescriptions for potassium and her anxiolytic. I will see her in 6 months we will do an MRI of the brain and a CT then. I have answered her questions. Although she is more short of breath her hemoglobin and liver function tests are all normal HAROLDO RIVERS APRN O VISUAL COLLECTIONS COORDINATOR documented in this encounter Plan of Treatment Upcoming Encounters Date Type Department Care Team (Late st Contact Info) Description 11/12/2025 3:30 PM EDT Office Visit [facility] [address] [place] [address] Neptali Bergman MD [address] [place] [address] documented as of this encounter Procedures Procedure Name Priority Date/Time Associated Diagnosis Comments PROTEIN ELECTROPHORESIS W RFLX TO DE(SENDOUT) Routine 05/14/2025 8:14 AM EST Malignant neoplasm of upper lobe bronchus, left (HCC) KAPPA-LAMBDA QUANT FLC WITH RATIO(SENDOUT) Routine 05/14/2025 8:14 AM EST Malignant neoplasm of upper lobe bronchus, left (HCC) TSH Routine 05/14/2025 8:14 AM EST Malignant neoplasm of upper lobe bronchus, left (HCC) documented in this encounter Results * (ABNORMAL) [place]-Lambda Quant FLC with Ratio(SENDOUT) (05/14/2025 8:14 AM EST) [place] Qnt Free Light Chains 28.53(H) 3.30 - 19.40 mg/L 05/17/2025 9:28 AM EST [facility] Comment: INTERPRETIVE INFORMATION: [place] Qnt Free Light Chains Undetected antigen excess is a rare event but cannot be excluded. Free light chain results should always be interpreted in conjunction with other clinical and laboratory findings. Lambda Qnt Free Light Chains 23.95 5.71 - 26.30 mg/L 05/17/2025 9:28 AM EST [facility] Comment: INTERPRETIVE INFORMATION: Lambda Qnt Free Light Chains Undetected antigen excess is a rare event but cannot be excluded. Free light chain results should always be interpreted in conjunction with other clinical and laboratory findings. [place]/Lambda Free Light Chain Ratio 1.19 0.26 - 1.65 05/17/2025 9:28 AM EST [facility] Comment: Performed By: [facility] [address] [place] [address] Incident Analyst: Jony Boogie MD, PhD CLIA Number: [id number] Blood Venipuncture / Unknown 05/14/2025 8:14 AM EST 05/15/2025 8:54 AM EST us Neptali Bergman MD LAB BLOOD ORDERABLES Final Res ult [facility] [address] [place] [address], [facility] [phone] * (ABNORMAL) Protein Electrophoresis w Rflx to DE (SENDOUT) (05/14/2025 8:14 AM EST) Total Protein, Serum 8.2 6.3 - 8.2 g/dL 05/18/2025 9:02 PM EST [facility] Albumin 4.26 3.75 - 5.01 g/dL 05/18/2025 9:02 PM [facility] Alpha 1 Globulin 0.43 0.19 - 0.46 g/dL 05/18/2025 9:02 PM [facility] Alpha 2 Globulin 1.05 0.48 - 1.05 g/dL 05/18/2025 9:02 PM [facility] Beta Globulin 1.13(H) 0.48 - 1.10 g/dL 05/18/2025 9:02 PM [facility] Gamma 1.33 0.62 - 1.51 g/dL 05/18/2025 9:02 PM [facility] Immunofixation Reflex Not Done 05/18/2025 9:02 PM [facility] Comment: Caution: Reflex to Immunofixation electrophoresis (DE)is not indicated per results of protein electrophoresis. Immunofixation electrophoresis is a more sensitive technique than serum protein electrophoresis for the identification of small M-proteins found in patients with amyloidosis, early or treated myeloma and macroglobulinemia, MGUS, solitary plasmacytoma,and extramedullary plasmacytoma. Monoclonal Protein Not Applicable <=0.00 g/dL 05/18/2025 9:02 PM [facility] SPEP/DE Interpretation See Note 05/18/2025 9:02 PM [facility] Comment:Serum protein electr ophoresis is negative for monoclonal protein. EER Serum Protein Electrophoresis Reflex See Note 05/18/2025 9:02 PM EST [facility] Comment: Authorized individuals can access the [employer] Enhanced Report with an [employer] Connect account using the following link. Your local lab can assist you in obtaining the patient report if you don't have a Connect account. [email or web address] Performed By: [facility] [address] [place] [address] Incident Analyst: Jony Boogie MD, PhD CLIA Number: [id number] Blood Venipuncture / Unknown 05/14/2025 8:14 AM EST 05/15/2025 8:54 AM EST Neptali Bergman MD LAB BLOOD ORDERABLES Final Res ult Performing Organization Address [facility]/ZIP Co de Phone Number [facility] [address] [place] [id number], [facility] [phone] * TSH (05/14/2025 8:14 AM EST) [facility] TSH 2.300 0.358 - 3.740 uIU/mL 05/15/2025 10:17 AM EST [facility] Blood Venipuncture / Unknown 05/14/2025 8:14 AM EST 05/15/2025 8:54 AM EST Narrative [facility] - 05/15/2025 10:17 AM EST Biotin supplements can cause clinically significant incorrect lab test results. The FDA has seen an increase in the number of reported adverse events related to biotin interference with lab tests. Neptali Bergman MD LAB BLOOD ORDERABLES Final Res ult [facility] [address] [place] [address], [facility] [phone] * (ABNORMAL) Hepatic function panel (05/14/2025 8:14 AM EST) Pathologist [facility] Protein, Total 8.6(H) 6.4 - 8.2 gm/dL 05/14/2025 9:16 AM EST [facility] Albumin 3.9 3.4 - 5.0 g/dL 05/14/2025 9:16 AM [facility] Total Bilirubin 0.7 0.2 - 1.3 mg/dL 05/14/2025 9:16 AM [facility] Bilirubin, Direct 0.1 0.0 - 0.2 mg/dL 05/14/2025 9:16 AM [facility] Alkaline Phosphatase 121 27 - 136 U/L 05/14/2025 9:16 AM [facility] Globulin 4.7(H) 1.5 - 4.5 g/dL 05/14/2025 9:16 AM [facility] A/G Ratio 0.8(L) 1.1 - 2.5 05/14/2025 9:16 AM [facility] AST 24 5 - 37 U/L 05/14/2025 9:16 AM [facility] Comment:[employer] has become aware of sulfasalazine and sulfapyridine drug interference in the assays ALT, AST, T4, CKMB, glucose, and ammonia. The probability of misinterpretation of results for the assays is remote and would be limited to scenarios where a patient has taken the drug and had a blood sample drawn before clearance of the drug to a level that does not interfere with laboratory testing. Venipuncture should occur prior to administration of the drug. ALT 23 12 - 78 U/L 05/14/2025 9:16 AM [facility] Comment:[employer] has become aware of sulfasalazine and sulfapyridine drug interference in the assays ALT, AST, T4, CKMB, glucose, and ammonia. The probability of misinterpretation of results for the assays is remote and would be limited to scenarios where a patient has taken the drug and had a blood sample drawn before clearance of the drug to a level that does not interfere with laboratory testing. Venipuncture should occur prior to administration of the drug. Blood Venipuncture / Unknown 05/14/2025 8:14 AM EST 05/14/2025 8:23 AM EST us Neptali Bergman MD LAB BLOOD ORDERABLES Final Res ult [facility] LABORATORY [address] [phone] * (ABNORMAL) Oncology Basic Metabolic Panel (05/14/2025 8:14 AM EST) Sodium 137 136 - 146 meq/L 05/14/2025 8:30 AM EST [facility] Potassium 4.1 3.5 - 5.1 meq/L 05/14/2025 8:30 AM EST [facility] Chloride 98 98 - 108 meq/L 05/14/2025 8:30 AM EST [facility] CO2 34(H) 22 - 29 meq/L 05/14/2025 8:30 AM EST [facility] Anion Gap 9 9 - 05/14/2025 8:30 AM EST [facility] BUN 24(H) 7 - 18 mg/dL 05/14/2025 8:30 AM EST [facility] Creatinine 0.80 0.60 - 1.10 mg/dL 05/14/2025 8:30 AM EST [facility] BUN/Creatinine 30(H) 8 - 20 05/14/2025 8:30 AM EST [facility] Glucose 103 70 - 105 mg/dL 05/14/2025 8:30 AM EST [facility] Calcium Ionized (mg/dL) 4.56 4.36 - 5.20 mg/dL 05/14/2025 8:30 AM EST [facility] Blood Venipuncture / Unknown 05/14/2025 8:14 AM EST 05/14/2025 8:23 AM EST us Neptali Bergman MD LAB BLOOD ORDERABLES Final Res ult [facility] [address] [place] [address], [facility] [phone] * (ABNORMAL) CBC with automated diff (05/14/2025 8:14 AM EST) WBC 13.7(H) 4.5 - 12.5 K/ L 05/14/2025 8:27 AM EST [facility] RBC 4.39 4.00 - 5.25 M/ L 05/14/2025 8:27 AM EST [facility] Hemoglobin 12.8 12.0 - 16.0 GM/DL 05/14/2025 8:27 AM EST [facility] Hematocrit 41.5 36.0 - 46.0 % 05/14/2025 8:27 AM EST [facility] MCV 95 80 - 100 fL 05/14/2025 8:27 AM EST [facility] MCH 29.2 26.0 - 34.0 pg 05/14/2025 8:27 AM EST [facility] MCHC 30.8(L) 31.0 - 37.0 GM/DL 05/14/2025 8:27 AM EST [facility] RDW 15.6 12.0 - 16.8 % 05/14/2025 8:27 AM EST [facility] Platelets 184 140 - 440 K/CU MM 05/14/2025 8:27 AM EST [facility] MPV 10.6(H) 7.4 - 10.4 fL 05/14/2025 8:27 AM EST [facility] % Neutros 79 45 - 80 % 05/14/2025 8:27 AM EST [facility] % Lymphs 12(L) 15 - 45 % 05/14/2025 8:27 AM EST [facility] % Monos 8 0 - 10 % 05/14/2025 8:27 AM EST [facility] % Eos 0.8 0.0 - 5.0 % 05/14/2025 8:27 AM EST [facility] % Baso 0 0 - 3 % 05/14/2025 8:27 AM EST [facility] # Neutros 10.80(H) 2.00 - 8.80 K/ L 05/14/2025 8:27 AM EST [facility] # Lymphs 1.68 0.70 - 5.50 K/ L 05/14/2025 8:27 AM EST [facility] # Monos 1.08 0.00 - 1.70 K/ L 05/14/2025 8:27 AM EST [facility] # Eos 0.11 0.00 - 0.80 K/ L 05/14/2025 8:27 AM EST [facility] # Baso 0.02 0.00 - 0.20 K/ L 05/14/2025 8:27 AM EST [facility] Blood Venipuncture / Unknown 05/14/2025 8:14 AM EST 05/14/2025 8:23 AM EST Narrative [facility] - 05/14/2025 8:27 AM EST When CBC w/ Auto Diff is ordered the lab will add a Manual Differential as a quality check at no additional charge if: Lymphocytes greater than seventy five percent with normal or increased WBC Monocytes greater than Fifteen percent Basophil greater than four percent Bands >10% or several immature myeloids are seen on scan Blast? Flag noted Atypical Lymph flag noted us Neptali Bergman MD LAB BLOOD ORDERABLES Final Res ult [facility] [address] [phone] documented in this encounter Visit Diagnoses Diagnosis Malignant neoplasm of upper lobe bronchus, left (HCC)- Primary documented in this encounter Care Teams Transformer Stock Clerk Relationship Specialty Start Date End Date Haroldo Rivers, CURING ROOM WORKER [address] [place] [address] PCP - General Nurse Practitioner 04/06/23 Neptali Bergman MD [facility] [address] [place] [address] Hematology and Oncology 10/31/24 documented as of this encounter
--- OUTSIDE RECORDS SUMMARY | 2025-05-14 15:45 | XMS_ITS | Encounter Summary ---
Author Organization [employer] ([place], [place], [place], [place], [place]) Address [address] [place] [address] Care Team Providers Care Contact Acid Plant Operator Helper Name Role Phone Heidi Rivers ROMERO Primary Care Provider [phone] Neptali Bergman MD Unavailable [phone] Reason for Visit * Reason Comments Port Flush Encounter Details Date Type Department Care Team (Late st Contact Info) Description 05/14/2025 3:45 PM EST Infusion [facility] [address] [facility] [address] [place] [address] Neptali Bergman MD [address] [facility] [address] [place] [address] Malignant neoplasm of upper lobe [...] Date Jeff rded Speak language other than [place] at home Not on file 06/04/2023 Want [...] on file documented as of this encounter Progress Notes * Nadege Miller RN - 05/14/2025 3:45 PM EST Right port a cath remained accessed with negative blood return. Port flushed then cath david used. Allowed to dewll for 30 min followed by another 30 min. Continues with no blood return. Informed not to wait 6m prior to next port flush; to notify day prior or day of next scheduled peculiar appointment and we would work her in for port maintenance. VU. Port de-accessed. Band aid applied. Patient tolerated the procedure well. AVS given to the patient and the patient was discharged. Electronically signed by Nadege Miller RN - 05/14/2025 - 4:24 PM EST OR LINUX ADMINISTRATOR documented in this encounter Plan of Treatment Upcoming Encounters Date Type Department Care Team (Late st Contact Info) Description 11/12/2025 3:30 PM EDT Office Visit [facility] - [address] [facility] [address] [place] [address] Neptali Bergman MD [address] [place] [place] [address] documented as of this encounter Visit Diagnoses Diagnosis Malignant neoplasm of upper lobe bronchus, left (HCC)- Primary documented in this encounter Administered Medications Inactive Administered Medications - up to 3 most recent administrations Medication Order MAR Action Action Date Dose Rate Site alteplase (CATHFLO ACTIVASE) 2 mg in sterile water for injection (PF) 2 mL syringe 2 mg As needed, intra-catheter, Line care, declot, Starting on Wed05/14/25 at 1600, First Dose: 2 mg, dwell for 30 minutes; if ineffective, wait an additional 30 minutes. If ineffective after 60 minutes, move to second dose. Second Dose: 2 mg, dwell for 30 minutes; if ineffective, wait an additional 30 minutes. If ineffective after 60 minutes, notify provider. Reconstitute 2 mg vial with 2.2 mL sterile water for injection, final concentration = 1 mg/mL.Indications:Malignant neoplasm of upper lobe bronchus, left (HCC) Given 05/14/2025 3:34 PM EST 2 mg sodium chloride flush 10 mL 10 mL As needed, intravenous, line care, Starting on 05/14/25 at 1600, Per [facility] Policy.Indications:Malignant neoplasm of upper lobe bronchus, left (HCC) Given 05/14/2025 3:25 PM EST 50 mLs documented in this encounter Care Teams Contact Acid Plant Operator Helper Relationship Specialty Start Date End Date Heidi Rivers, WILDLIFE SCIENCE PROFESSOR [address] [facility] [address] [place] [address] PCP - General Nurse Practitioner 04/06/23 Neptali Bergman MD [address] [facility] [address] [place] [address] Hematology and Oncology 10/31/24 documented as of this encounter
[2025-05-21] VITALS (23 sets, daily range): BP systolic 110–141; BP diastolic 50–87; PULSE 59–87; RESP 8–24; TEMP 36.1–36.8; O2SAT 92–99; BMI 27.0; BMI 26.9
--- NOTE | 2025-05-21 09:30 | CT_ITS ---
FINAL REPORT TECHNIQUE: Axial imaging of the chest is obtained after the administration of contrast. 3-D MIP reformatted images were also obtained and reviewed per PE protocol. This study was performed with techniques to keep radiation doses as low as reasonably achievable (ALARA). Individualized dose reduction techniques using automated exposure control or adjustment of mA and/or kV according to the patient's size were employed. CLINICAL HISTORY: CP rad to back COMPARISON: 04/09/2022 FINDINGS: The pulmonary arteries are well filled. There is no evidence of pulmonary embolus. There is no aortic dissection. Heart size is mildly enlarged but stable. A right Port-A-Cath is present. There is no mediastinal, hilar, or axillary lymphadenopathy. Postoperative changes of a left lobectomy are once again noted. The previously described soft tissue mass in the left hemithorax is fluid density, likely representing a chronic left effusion. There is no right pleural effusion or pericardial effusion. There is a right subpleural nodule in the right middle lobe which is calcified on coronal imaging. No new nodules or masses are identified. Changes of emphysema are once again noted. Limited evaluation of the upper abdomen is without acute abnormality. No acute osseous abnormality. IMPRESSION: 1. No evidence of pulmonary embolism or aortic dissection. 2. The heart is enlarged but stable. 3. Postoperative changes of left lobectomy. Previously described soft tissue mass in the left hemithorax is fluid density, and likely represents a chronic left pleural effusion. Reviewed, Interpreted and Dictated by Vero Marcum MD Transcribed by Joan Yeh Authenticated and [facility]
--- NOTE | 2025-05-21 09:31 | ECG_ITS ---
APPROVED REPORT Exam: Resting ECG HR:83 bpm ECG Measurements Heart Rate 83 AXES RI 172 P 69 QRSd 166 QRS -77 QT 397 T 35 QTc 437 Conclusion SINUS RHYTHM LEFT AXIS DEVIATION [QRS AXIS < -30] RIGHT BUNDLE BRANCH BLOCK [120+ ms QRS DURATION, UPRIGHT V1, 40+ ms S IN I/aVL/V4/V5/V6] ABNORMAL ECG UNCONFIRMED REPORT Electronically signed by : Jordy Daigle, 05/21/2025 15:01:05
--- NOTE | 2025-05-21 09:33 | PC.NURSE ---
RT notified of VBG
[2025-05-21 09:37] LABS: Hematocrit 40.8 % (37.0-47.0); Hemoglobin 12.6 g/dL (12.2-16.2); Immature Granulocytes % 0.3 %; Mean Corpuscular HGB Conc 30.9 g/dL (31.8-35.4); Mean Corpuscular Hemoglobin 29.5 pg (27.0-31.2); Mean Corpuscular Volume 95.6 fl (81-99); Nucleated Red Blood Cells % 0 %; Platelet Count 192 K/mm3 (142-424); Red Blood Count 4.27 M/mm3 (4.20-5.40); Red Cell Distribution Width-SD 57.0 fL; White Blood Count 10.7 K/mm3 (4.8-10.8)
[2025-05-21 09:41] LABS: Lactate Venous 1.8 mmol/L (0.4-2.0); VBG HCO3 35.2 mmol/L (23-30); VBG PH 7.21 mmol/L (7.31-7.41); VBG PO2 40.1 mmol/L (28-40)
--- OUTSIDE RECORDS SUMMARY | 2025-05-21 09:42 | XMS_ITS | Encounter Summary ---
Author Organization [employer] ([place], [place], [place], [place], [place]) Address [address] [place] [address] Care Team Providers Care Offset Lithographic Press Setter Name Role Phone Jonas Navas MD Primary Care Provider [phone] Marcell Uriostegui MD Primary Care Provider + [phone] Heidi Rivers APRN Primary Care Provider + [phone] Neptali Bergman MD Unavailable [phone] Encounter Details Date Type Department Care Team (Late st Contact Info) Description 08/02/2019 Transcribed Document [facility] Family Medicine [facility], [facility] [place] [address] ProviderJennifer MD [address] [place] [address] Social History Tobacco Use Types Packs/Day [...] 08/02/2019 3:58 EDT Electronically signed by Hossein [facility] Conversion Content Manager Cerner at 09/10/2022 12:36 AM CDT documented in this encounter Plan of Treatment Upcoming Encounters Date Type Department Care Team (Late st Contact Info) Description 11/12/2025 3:30 PM EDT Office Visit [facility] - [address] [facility] [address] [place] [address] Neptali Bergman MD [address] [facility] [address] [place] [address] documented as of this encounter Visit Diagnoses Not on filedocumented in this encounter Care Teams Offset Lithographic Press Setter Relationship Specialty Start Date End Date Jonas Navas MD [address] [facility] [address] [place] [address] PCP - General Cardiothoracic Surgery 04/15/22 07/23/22 Marcell Uriostegui MD [address] [place] [address] [place] [address] PCP - General Adolescent Medicine 07/24/22 04/05/23 Heidi Rivers, ROMERO [address] [place] [address] PCP - General Nurse Practitioner 04/06/23 Neptali Bergman MD [address] [facility] [address] [place] [address] Hematology and Oncology 10/31/24 documented as of this encounter
--- OUTSIDE RECORDS SUMMARY | 2025-05-21 09:42 | XMS_ITS | Encounter Summary ---
Author Organization [employer] ([place], [place], [place], [place], [place]) Address [address] [place] [address] Care Team Providers Care Word Processor Name Role Phone Jonas Navas MD Primary Care Provider [phone] Marcell Uriostegui MD Primary Care Provider + [phone] Heidi Rivers APRN Primary Care Provider + [phone] Lu Bergman MD Unavailable Encounter Details Date Type Department Care Team (Late st Contact Info) Description 12/09/2020 Transcribed Document [facility] Family Medicine [address] [place] [address] ProviderJennifer MD [address] [place] [address] Social History Tobacco Use Types Packs/Day [...] 0.9% 100 mL 100 mg, IV Piggyback, [id number] famotidine 20 mg tab 20 mg 1 [...] on C diff result Electronically signed by [facility] Conversion Maintenance Superintendent Cerner at 09/10/2022 12:43 AM CDT documented in this encounter Plan of Treatment Upcoming Encounters Date Type Department Care Team ([facility] st Contact Info) Description 11/12/2025 3:30 PM EDT Office Visit [facility] - [address] [place] [address] Lu Bergman MD [address] [place] [address] [address] [place] [address] documented as of this encounter Visit Diagnoses Not on filedocumented in this encounter Care Teams Word Processor Relationship Specialty Start Date End Date Jonas Navas MD [address] [facility] [address] [place], [place] [address] PCP - General Cardiothoracic Surgery 04/15/22 07/23/22 Marcell Uriostegui MD [address] [place] [address] [place] [address] PCP - General Adolescent Medicine 07/24/22 04/05/23 Heidi Rivers, BANQUET ATTENDANT 2017 [facility] [address] [place] [address] PCP - General Nurse Practitioner 04/06/23 [place] [address] [place] [address] [address] [place] [address] Hematology and Oncology 10/31/24 documented as of this encounter
--- OUTSIDE RECORDS SUMMARY | 2025-05-21 09:42 | XMS_ITS | Encounter Summary ---
Author Organization [employer] ([place], [place], [place], [place], [place]) Address [address] [place] [address] Care Team Providers Care Courtesy Booth Cashier Name Role Phone Jonas Navas MD Primary Care Provider [phone] Marcell Uriostegui MD Primary Care Provider + [phone] Heidi Rivers APRN Primary Care Provider + [phone] Neptali Bergman MD Unavailable [phone] Encounter Details Date Type Department Care Team (Late st Contact Info) Description 08/01/[address] [facility] Family Medicine [facility] [place] [address] ProviderJennifer MD [address] [place] [address] Social History Tobacco Use Types Packs/Day [...] 08/01/2019 15:48 EDT by ANASTASIA DA SILVA RN-Booth SupervisorFarm Crew Leader Progress Note Discharge Arrangements : Patient Post-Acute [...] Multidisciplinary Rounds? : Yes ANASTASIA DA SILVA RN-Booth Supervisor - 08/01/2019 15:48 EDT Narrative Progress Note [...] will continue to follow. ANASTASIA DA SILVA RN-Booth Supervisor - 07/31/19 17:48:18 Admission day 3, transfer from [facility], on 4 liters O2, CT remains in place (760ml/24hrs), epidural and sargent remain in place, KD=409' with rwx/O2/suction. DCP: to return home with family (watch for possible O2 needs). CM will continue to follow. STEWART AYALA, Air Motor Repairer - 07/28/19 16:32:45 CTS encouraging pt to be up in chair OOB; anticipate possible transfer out of [facility] later today; anticipate home with spouse when stable; monitor for home oxygen need. ALEXUS LEON Rn-Booth Supervisor - 07/26/19 09:54:47 ANASTASIA DA SILVA RN-Booth Supervisor - 08/01/2019 15:48 EDT documented in this encounter Plan of Treatment Upcoming Encounters Date Type Department Care Team (Late st Contact Info) Description 11/12/2025 3:30 PM EDT Office Visit [facility] - [address] [place] [address] Neptali Bergman MD [address] [facility] [address] [place] [address] documented as of this encounter Visit Diagnoses Not on filedocumented in this encounter Care Teams Courtesy Booth Cashier Relationship Specialty Start Date End Date Jonas Navas MD [address] [facility] [address] [place] [address] PCP - General Cardiothoracic Surgery 04/15/22 07/23/22 Marcell Uriostegui MD [address] [facility] [address] [place] [address] PCP - General Adolescent Medicine 07/24/22 04/05/23 Heidi Rivers, AUDIO VISUAL DIRECTOR 2017 [facility] [address] [place] [address] PCP - General Nurse Practitioner 04/06/23 Neptali Bergman MD [address] [facility] [address] [place] [address] Hematology and Oncology 10/31/24 documented as of this encounter
--- OUTSIDE RECORDS SUMMARY | 2025-05-21 09:42 | XMS_ITS | Encounter Summary ---
Author Organization [employer] ([place], [place], [place], [place], [place]) Address [address] [place] [address] Care Team Providers Care Deputy County Counsel Name Role Phone Jonas Navas MD Primary Care Provider [phone] Marcell Uriostegui MD Primary Care Provider + [phone] Heidi Rivers APRN Primary Care Provider + [phone] Neptali Bergman MD Unavailable [phone] Encounter Details Date Type Department Care Team (Late st Contact Info) Description 08/02/2019 Transcribed Document [facility] Family [place] [address] ProviderJennfier MD [address] [place] [address] Social History Tobacco Use Types Packs/Day [...] Heidi Matias RN - 08/02/2019 12:55 EDT Electronically signed by Kolby Catalan Conversion International Operations Manager Cerner at 09/10/2022 12:41 AM CDT documented in this encounter Plan of Treatment Upcoming Encounters Date Type Department Care Team (Late st Contact Info) Description 11/12/2025 3:30 PM EDT Office Visit [facility] - [address] [place] [address] Neptali Bergman MD [address] [facility] [address] [place] [address] documented as of this encounter Visit Diagnoses Not on filedocumented in this encounter Care Teams Deputy County Counsel Relationship Specialty Start Date End Date Jonas Navas MD [address] [facility] [address] [place] [address] PCP - General Cardiothoracic Surgery 04/15/22 07/23/22 Marcell Uriostegui MD [address] [place] [address] PCP - General Adolescent Medicine 07/24/22 04/05/23 Heidi Rivers, PHARMACOLOGIST 2017 [facility] [address] [place] [address] PCP - General Nurse Practitioner 04/06/23 Neptali Bergman MD [address] [facility] [address] [place] [address] Hematology and Oncology 10/31/24 documented as of this encounter
--- OUTSIDE RECORDS SUMMARY | 2025-05-21 09:42 | XMS_ITS | Encounter Summary ---
Author Organization [employer] ([place], [place], [place], [place], [place]) Address [address] [place] [address] Care Team Providers Care Remote Sensing Research Scientist Name Role Phone Jonas Navas MD Primary Care Provider [phone] Marcell Uriostegui MD Primary Care Provider + [phone] Heidi Rivers APRN Primary Care Provider + [phone] Neptali Bergman MD Unavailable Encounter Details Date Type Department Care Team (Late st Contact Info) Description 08/02/2019 Transcribed Document [facility] [place] [facility] [place] [address] ProviderJennifer MD [address] [place] [address] Social History Tobacco Use Types Packs/Day [...] Policy Numbers : Insurance 1 Health Plan: [employer] Policy Number: [id number] Authorization Number: [id number] [facility] Policy Number: [id number] Authorization Status-Primary : Awaiting callback Authorization Number-Primary : [id number] Number of Days Authorized-Primary : 3 Day(s) Authorized Service Begin Date-Primary : 07/25/2019 EST Authorized Service End Date-Primary : 07/28/2019 EST Historical Authorization Comments-Primary : Comment 1: [place] approved per availity for 4 days inpt (NORI VALVERDE, RN-Utilization Review 07/21/2019 13:39) SURENDRA FRANK Rn-Utilization Review - 08/02/2019 8:33 EDT Electronically signed by Hossein [facility] Conversion Social Media Marketing Manager Cerner at 09/10/2022 12:31 AM CDT documented in this encounter Plan of Treatment Upcoming Encounters Date Type Department Care Team (Late st Contact Info) Description 11/12/2025 3:30 PM EDT Office Visit [facility] - [address] [place] [address] Neptali Bergman MD [address] [place] [address] [address] [place] [address] documented as of this encounter Visit Diagnoses Not on filedocumented in this encounter Care Teams Remote Sensing Research Scientist Relationship Specialty Start Date End Date Jonas Navas MD [address] [facility] [address] [place], [place] [address] PCP - General Cardiothoracic Surgery 04/15/22 07/23/22 Marcell Uriostegui MD [address] [place] [address] [place] [address] PCP - General Adolescent Medicine 07/24/22 04/05/23 Heidi Rivers, ROMERO 2017 [facility] [address] [place] [address] PCP - General Nurse Practitioner 04/06/23 [place] [address] [place] [address] [address] [place] [address] Hematology and Oncology 10/31/24 documented as of this encounter
--- OUTSIDE RECORDS SUMMARY | 2025-05-21 09:42 | XMS_ITS | Encounter Summary ---
Author Organization [employer] ([place], [place], [place], [place], [place]) Address [address] [place] [address] Care Team Providers Care Tamping Machine Operator Road Forms Name Role Phone Jonas Navas MD Primary Care Provider [phone] Marcell Uriostegui MD Primary Care Provider + [phone] Heidi Rivers APRN Primary Care Provider + [phone] Neptali Bergman MD Unavailable [phone] Encounter Details Date Type Department Care Team (Late st Contact Info) Description 08/01/2019 Transcribed Document [facility] Family Medicine [facility] [place] [address] ProviderJennifer MD [address] [place] [address] Social History Tobacco Use Types Packs/Day [...] Jennifer ProviderMD - 08/01/2019 2:00 AM CDT Qa Software Test Engineer Details Entered On: 08/01/2019 4:35 EDT Performed [...] Description 11/12/2025 3:30 PM EDT Office Visit [facility] - [address] [facility] [address] [place] [address] Neptali Bergman MD [address] [place] [address] [address] [place] [address] documented as of this encounter Visit Diagnoses Not on filedocumented in this encounter Care Teams Tamping Machine Operator Road Forms Relationship Specialty Start Date End Date Jonas Navas MD [address] [facility] [address] [place] [address] PCP - General Cardiothoracic Surgery 04/15/22 07/23/22 Marcell Uriostegui MD [address] [place] [address] PCP - General Adolescent Medicine 07/24/22 04/05/23 Heidi Rivers, JV BASEBALL COACH [address] [place] [address] PCP - General Nurse Practitioner 04/06/23 Neptali Bergman MD [address] [facility] [address] [place] [address] Hematology and Oncology 10/31/24 documented as of this encounter
--- OUTSIDE RECORDS SUMMARY | 2025-05-21 09:42 | XMS_ITS | Encounter Summary ---
Author Organization [employer] ([place], [place], [place], [place], [place]) Address [address] [place] [address] Care Team Providers Care Director Of Brand Marketing Name Role Phone Jonas Navas MD Primary Care Provider [phone] Marcell Uriostegui MD Primary Care Provider + [phone] Heidi Rivers APRN Primary Care Provider + [phone] Neptali Bergman MD Unavailable [phone] Encounter Details Date Type Department Care Team (Late st Contact Info) Description 03/20/2021 Transcribed Document [facility] Family Medicine [facility] [place] [address] ProviderJennifer MD [address] [place] [address] Social History Tobacco Use Types [...] 03/20/2021 12:53 EDT Electronically signed by [facility] Conversion Hr Assistant Cerner at 09/10/2022 12:35 AM CDT documented in this encounter Plan of Treatment Upcoming Encounters Date Type Department Care Team (Late st Contact Info) Description 11/12/2025 3:30 PM EDT Office Visit [facility] - [address] [place] [address] [place] [address] [place] [address] [address] [place] [address] documented as of this encounter Visit Diagnoses Not on filedocumented in this encounter Care Teams Director Of Brand Marketing Relationship Specialty Start Date End Date Jonas Navas MD [address] [facility] [address] [place] [address] PCP - General Cardiothoracic Surgery 04/15/22 07/23/22 Marcell Uriostegui MD [address] [place] [address] [place] [address] PCP - General Adolescent Medicine 07/24/22 04/05/23 Heidi Rivers, ROMERO [address] [place] [address] PCP - General Nurse Practitioner 04/06/23 [place] [address] [place] [address] [address] [place] [address] Hematology and Oncology 10/31/24 documented as of this encounter
--- OUTSIDE RECORDS SUMMARY | 2025-05-21 09:42 | XMS_ITS | Encounter Summary ---
Author Organization [employer] ([place], [place], [place], [place], [place]) Address [address] [place] [address] Care Team Providers Care Java Sdet Name Role Phone Jonas Navas MD Primary Care Provider [phone] Marcell Uriostegui MD Primary Care Provider + [phone] Heidi Rivers APRN Primary Care Provider + [phone] Neptali Bergman MD Unavailable [phone] Encounter Details Date Type Department Care Team (Late st Contact Info) Description 12/09/2020 Transcribed Document [facility] [place] [address] ProviderJennifer MD [address] [place] [address] Social History Tobacco Use Types [...] - Chloé [address] [place] [address] Neptali Bergman MD [address] [facility] [address] [place] [address] documented as of this encounter Visit Diagnoses Not on filedocumented in this encounter Care Teams Java Sdet Relationship Specialty Start Date End Date Jonas Navas MD [address] [facility] [address] [place] [address] PCP - General Cardiothoracic Surgery 04/15/22 07/23/22 Marcell Uriostegui MD [address] [facility] [address] [place] [address] PCP - General Adolescent Medicine 07/24/22 04/05/23 Heidi Rivers, HEALTH CLUB MANAGER [address] [facility] [address] [place] [address] PCP - General Nurse Practitioner 04/06/23 Neptali Bergman MD [address] [facility] [address] [place] [address] Hematology and Oncology 10/31/24 documented as of this encounter
--- OUTSIDE RECORDS SUMMARY | 2025-05-21 09:42 | XMS_ITS | Encounter Summary ---
Author Organization [employer] ([place], [place], [place], [place], [place]) Address [address] [place] [address] Care Team Providers Care Corporate Statistical Financial Analyst Name Role Phone Jonas Navas MD Primary Care Provider [phone] Marcell Uriostegui MD Primary Care Provider + [phone] Heidi Rivers APRN Primary Care Provider + [phone] Neptali Bergman MD Unavailable [phone] Encounter Details Date Type Department Care Team (Late st Contact Info) Description 12/09/2020 Transcribed Document [facility] Radiology [address] [place] [address] Clemente Currie MD [address] [place] [address] Social History Tobacco Use Types Packs/Day Years [...] November 2020 she knows she is at [facility] she does not remember the name [...] her swallowing. I did call to the commercial front load operator to make sure that at least physical therapy and speech see her today. They state that they live in [place] and their primary care provider is Jordy [...] - Lung cancer adenocarcinoma / SNOMED CT 8585299086 / Confirmed Claustrophobia / SNOMED CT 38198589 / Confirmed Diabetes mellitus type II / SNOMED CT 80405379 / Confirmed Diverticulosis / SNOMED CT 7933835727 / Confirmed Shortness of breath / SNOMED CT 163985634 / Confirmed GERD - Gastro-esophageal reflux disease / SNOMED CT 8311256199 / Confirmed Hiatal hernia / SNOMED CT 413726377 / Confirmed History of obstructive sleep apnea / IMO 39700597 / Confirmed Inactive: Seasonal allergies / SNOMED CT 9234346841 Canceled: Chronic cough / SNOMED CT 825582701 Canceled: History of obstructive sleep apnea - no c-pap / IMO 11077606 Canceled: History of obstructive sleep apnea / IMO 63595828 Canceled: Current every day smoker / SNOMED CT 2661081026, Active Problems (18) Arthritis Back pain CA - Lung cancer adenocarcinoma 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 Claustrophobia Coronary artery disease s/p MD Diabetes mellitus type II Diverticulosis GERD - [...] mL: 100 mg, 50 mL/Hr, IV Piggyback, [id number] granisetron: 1 mg, IV Push, 1-Time granisetron: [...] Refill(s) fluticasone 50 mcg/inh nasal spray: 2 [place], Nasal, Daily, PRN: Nasal Congestion, 0 Refill(s) [...] Q6H fluticasone 50 mcg/inh nasal spray 2 [place], PRN, Nasal, Daily folic acid 1 mg [...] 0.9% 100 mL 100 mg, IV Piggyback, [id number] famotidine 20 mg tab 20 mg 1 [...] EDT Height Source Chart Height Entry Format Whit[place]orn Height/Length, KUWAITI (ft) 5 ft Height/Length KUWAITI 2 Inch CLINICALHEIGHT 157.48 cm Routine Weight Entry Format [place]orn Routine Weight, Pounds 176 lb Routine Weight, Ounces 1 oz Routine Weight Calculation 80.03 kg Body Mass Index (BMI), Routine 32.27 kg/m2 Body Surface Area (BSA), Routine 1.81 m2 12/08/2020 5:00 EDT Height Source Chart Height Entry Format [place]orn Height/Length, KUWAITI (ft) 5 ft Height/Length [place]I 2 Inch CLINICALHEIGHT 157.48 cm Routine Weight Source Bed scale Routine Weight Entry Format [place]orn Routine Weight, Pounds 177 lb Routine Weight, Ounces 8 oz Routine Weight Calculation 80.68 kg Body Mass Index (BMI), Routine 32.53 kg/m2 Body Surface Area (BSA), Routine 1.82 m2 General: Alert and oriented, No acute distress, Alert oriented to name, date of , age, November 2020, [facility]. .. Eye: Pupils are equal, round and [...] to name date of age November 2020 [facility].. Review / Management Results review: Labs (Last [...] date of age 60 25 November 2020 [facility]. Recheck a CBC CMP in the [...] very nice family and they are from [place] where they see primary care provider Dr. Jordy Akers. These to see Dr. Jesse Rosario who I had worked with as a student many years ago who has since moved to [place]. Nonetheless the patient's is very pleased with [...] afternoon. I did discuss with Dr. Ding. World [employer] dictation system used. Computer program makes numerous spelling grammar mistakes. If you have any questions or concerns do not hesitate call Dr. Clemente Patel at cell phone number [phone]. documented in this encounter Plan of Treatment Upcoming Encounters Date Type Department Care Team (Late st Contact Info) Description 11/12/2025 3:30 PM EDT Office Visit [facility] - Chloé [facility] [address] [facility] [address] [place] [address] Neptali Bergman MD [address] [facility] [address] [place] [address] documented as of this encounter Visit Diagnoses Not on filedocumented in this encounter Care Teams Corporate Statistical Financial Analyst Relationship Specialty Start Date End Date Jonas Navas MD [address] [facility] [address] [place], [place] [address] PCP - General Cardiothoracic Surgery 04/15/22 07/23/22 Marcell Uriostegui MD 1210 [facility] [address] [place] [address] PCP - General Adolescent Medicine 07/24/22 04/05/23 Heidi Rivers APRN [address] [place] [address] PCP - General Nurse Practitioner 04/06/23 Neptali Bergman MD [address] [facility] [address] [place] [address] Hematology and Oncology 10/31/24 documented as of this encounter
--- OUTSIDE RECORDS SUMMARY | 2025-05-21 09:42 | XMS_ITS | Encounter Summary ---
Author Organization [facility] Address [address] [place] [address] Care Team Providers Care Security Services Specialist Name Role Phone Joryd Akers MD Primary Care Provider [phone] Encounter Details Date Type Department Care Team (Late st Contact Info) Description 12/17/2020 Telephone [facility] [address] [place] [address] Tonya Garcia RegSched Rep Social History Tobacco [...] on filedocumented in this encounter Care Teams Security Services Specialist Relationship Specialty Start Date End Date Jordy Akers MD [address] [place] [address] PCP - General Internal Medicine 08/07/20 documented as of this encounter
--- OUTSIDE RECORDS SUMMARY | 2025-05-21 09:42 | XMS_ITS | Encounter Summary ---
Author Organization [employer] ([place], [place], [place], [place], [place]) Address [address] [place] [address] Care Team Providers Care Basket Weaver Name Role Phone Jonas Navas MD Primary Care Provider [phone] Marcell Uriostegui MD Primary Care Provider + [phone] Heidi Rivers APRN Primary Care Provider + [phone] Lu Hitchcock MD Unavailable [phone] Encounter Details Date Type Department Care Team (Late st Contact Info) Description 12/09/2020 Transcribed Document [facility] Radiology [address] [place] [address] Adam Garcia MD [address] [place] [address] Social History Tobacco Use Types Packs/Day Years Used Date Smoking Tobacco: Never Assessed Comments Unknown Sex and Gender Information Value Date Recorded Sex Assigned at Not on file Legal Sex Female 1:09 PM CDT Gender Identity Not on file Sexual Orientation Not on file documented as of this encounter Miscellaneous Notes * Cerner Conversion Note - Adam Garcia MD - 12/09/2020 4:35 PM EDT [...] mets *ASCVD -hx PTCA 1993 *HTN *COPD Yaluc-vh-orcowlb hypercapnic respiratory failure Intubated at OSH on 12/01/20 and extubated on 12/05/20 COPD, acute exacerbation, no PFTs for review pt with tobacco abuse history 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 Then, the patient transferred to [place] for evaluation. The patient was brought in [...] if signs of overt bleeding. seen by school laboratory technician lori on 12-04 who stated: Non-ACS elevation [...] time. [facility]'ll 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 -I informed the patient that she will be scheduled to see me in 4 weeks, patient agreed seen by lu hitchcock [facility] 12-04 thru 12-09 he stated: Adenocarcinoma of lung, MR brain normal and chest without recurrence. Thrombocytopenia from chemotherapy-monitor, History of lung cancer with metastasis. Followed by oncology. mets to brain cyberknife august by jie per -lu hitchocck consutled -check MRi head given CADET- no [...] -prednsione 40 qd -on chronic steroids [facility]. #. Visual hallucinations-could be due to [...] date of age 60 25 November 2020 [facility]. Recheck a CBC CMP in [...] very nice family and they are from [place] where they see primary care provider Dr. Jordy Akers. These to see Dr. 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 Nonetheless the patient's is very pleased with [...] Q6H fluticasone 50 mcg/inh nasal spray 2 [place], PRN, Nasal, Daily folic acid 1 mg [...] MANNY LARA MD BOLLAVARAM, NAGABHUSHANAM, MD QUISENBERRY, THOMAS E, MD-INT AL-DLIW, MD MILTON Current Diet Order Diet, Adult - Ordered -- Start: 12/09/20 10:04:00 EDT, Liquid Consistency: Thin Liquid, 60 gm carbs:[id number] toby, Isolation: Standard Precautions Patient Discharge Summary [...] Description 11/12/2025 3:30 PM EDT Office Visit [facility] [address] [place] [address] Lu Hitchcock MD [address] [place] [address] documented as of this encounter Visit Diagnoses Not on filedocumented in this encounter Care Teams Basket Weaver Relationship Specialty Start Date End Date Jonas Navas MD [address] [facility] [address] [place], [place] [id number] PCP - General Cardiothoracic Surgery 04/15/22 07/23/22 Marcell Uriostegui MD [address] [facility] [address] [place] [address] PCP - General Adolescent Medicine 07/24/22 04/05/23 Heidi Rivers, PAPERBOARD BOX MAKER [address] [place] [address] PCP - General Nurse Practitioner 04/06/23 Lu Hitchcock MD [address] [facility] [address] [place] [address] Hematology and Oncology 10/31/24 documented as of this encounter
--- OUTSIDE RECORDS SUMMARY | 2025-05-21 09:42 | XMS_ITS | Clinical Summary ---
Author Organization [facility] Address [address] [place] [address] Care Team Providers Care Sonography Technician Name Role Phone Jordy Akers MD Primary Care Provider [phone] Allergies Active Allergy Reactions Criticality Noted Date Comments Diltiazem Unknown - High Severity 08/07/2020 Levofloxacin GI Intolerance 08/07/2020 Nadolol Unknown - High Severity 08/07/2020 Sulfa Antibiotics Unknown - High Severity 08/07 Tiotropium [place]-Olodaterol Unknown - High Severity 08/07/2020 Umeclidinium-Vilanterol Unknown [...] Completed 10/18/2019, 05/02/2019 Insurance EMPLOYEE Care Teams Sonography Technician Relationship Specialty Start Date End Date Jordy Akers MD [address] [place] [address] PCP - General Internal Medicine 08/07/20
--- OUTSIDE RECORDS SUMMARY | 2025-05-21 09:42 | XMS_ITS | Encounter Summary ---
Author Organization [employer] ([place], [place], [place], [place], [place]) Address [address] [place] [address] Care Team Providers Care Transport Rn Name Role Phone Jonas Navas MD Primary Care Provider [phone] Marcell Uriostegui MD Primary Care Provider + [phone] Heidi Rivers APRN Primary Care Provider + [phone] Neptali Bergman MD Unavailable [phone] Encounter Details Date Type Department Care Team (Late st Contact Info) Description 12/09/2020 Transcribed Document [facility] Family Medicine [place] [address] ProviderJennifer MD [address] [place] [address] Social History Tobacco Use Types Packs/Day [...] - 12/09/2020 14:47 EDT Electronically signed by [facility] Conversion Sack Cleaner Cerner at 09/10/2022 12:32 AM CDT documented in this encounter Plan of Treatment Upcoming Encounters Date Type Department Care Team (Late st Contact Info) Description 11/12/2025 3:30 PM EDT Office Visit [place] [facility] - [place] [address] [place] [address] Neptali Bergman MD [address] [facility] [address] [place] [address] documented as of this encounter Visit Diagnoses Not on filedocumented in this encounter Care Teams Transport Rn Relationship Specialty Start Date End Date Jonas Navas MD 14[address] [facility] [address] [place], [place] [address] PCP - General Cardiothoracic Surgery 04/15/22 07/23/22 Marcell Uriostegui MD [address] [place] [address] PCP - General Adolescent Medicine 07/24/22 04/05/23 Heidi Rivers, GLOBAL PRESIDENT 2017 [facility] [address] [place] [address] PCP - General Nurse Practitioner 04/06/23 Neptali Bergman MD [address] [facility] [address] [place] [address] Hematology and Oncology 10/31/24 documented as of this encounter
--- OUTSIDE RECORDS SUMMARY | 2025-05-21 09:42 | XMS_ITS | Encounter Summary ---
Author Organization [employer] ([place], [place], [place], [place], [place]) Address [address] [place] [address] Care Team Providers Care Cereal Maker Name Role Phone Jonas Navas MD Primary Care Provider [phone] Marcell Uriostegui MD Primary Care Provider + [phone] Heidi [place] APRN Primary Care Provider + [phone] Lu Bergman MD Unavailable [phone] Encounter Details Date Type Department Care Team (Late st Contact Info) Description 12/09/2020 Transcribed Document [facility] [place] [address] ProviderJennifer MD [address] [place] [address] Social History Tobacco Use [...] Jennifer ProviderMD - 12/09/2020 5:05 PM CDT [facility] [place] [address] ALEJANDRINA YEH :1955 Visit Time:2020 Your Visit Summary Your Care Team Admitting Physician - HAJA YUAN, DO-INT Attending Physician - ELLYN NEVAREZ MD Your Diagnosis Acute hypoxemic respiratory failure, Acute hypoxemic respiratory failure What to do next Instructions From Your Care Team STOP the following medications: STOP Lisinopril / HCTZ --- Follow up with engineering surveyor STOP Any Prednisone you have at home. You have been given a new prescription for prednisone. Discharge Activity: No strenuous activities Discharge Diet: Resume usual diet as tolerated Follow-Up Appointments Follow Up with MILTON OH MD When 01/28/2021 09:45 AM EDT Comments Pulmonology follow up Appointment has been made Bring discharge instructions with you Where: [address] [facility] [address] [place] [address]- Follow Up with CARLITOS SOTO When 12/17/2020 09:00 AM EDT Comments PCP follow up Appointment has been made Bring discharge instructions with you Where: [address] [facility] [address] [facility] [address] [place] [address] Follow Up with LU BERGMAN MD-ONC When Within 2 to 4 weeks, only if needed Where: [address] [facility] [employer] [facility] [address] [place] [address]- Medications What How Much When Instructions Next [...] (fluticasone 50 mcg/ inh nasal spray) 2 [place](s) Nasal Every Day as needed for Nasal [...] for help if needed. Medicines ??? Take brwd-yxc-dxydjkx and prescription medicines only as told by [...] day care, extended care programs, or a detention facility. The person's health care provider may [...] provider. Document Revised: 05/12/2018 Document Reviewed: 05/12/2018 Oh[employer] Patient Education ?? 2020 [employer] Home Oxygen Use, Adult When a [...] oxygen Your health care provider or a new accounts representative from your medical records analyst company will show you how to use [...] move around. Follow instructions from your medical records analyst company about how to safely secure your tank. ??? Make sure you have enough oxygen for the amount of time you will be away from home. ??? If you are planning air travel, contact the airline to find out if they allow the use of an approved portable oxygen concentrator. You may also need documents from your health care provider and medical records analyst company before you travel. General safety tips [...] ??? Your health care provider or a new accounts representative from your medical records analyst company will show you how to use [...] heat, flames, and son at all times. This information is not intended to replace advice given to you by your health care provider. Make sure you discuss any questions you have with your health care provider. Document Revised: 10/27/2018 Document Reviewed: 12/01/2016 Oh[employer] Patient Education ?? 2020 [employer]. Urinary Tract Infection, Adult A urinary tract [...] this condition includes: ??? Antibiotic medicine. ??? Mzev-alb-ahhafcc medicines to treat discomfort. ??? Drinking enough [...] these instructions at home: Medicines ??? Take xlij-zeo-xpuiptp and prescription medicines only as told by [...] provider. Document Revised: 04/27/2019 Document Reviewed: 11/17/2018 Oh[employer] Patient Education ?? 2020 [employer]. Diabetes Mellitus and Nutrition, Adult When you [...] that you work with a diet and animal nutrition teacher (dietitian) to make a meal plan that [...] provider. ??? Work with a counselor or certified diabetes educator to identify strategies to manage stress and any emotional and social challenges. Questions to ask a health care provider ??? Do I need to meet with a certified diabetes educator? Do I need to meet with a dietitian? What number can I call if I have questions? When are the best times to check my blood glucose? Where to find more information: ??? [place] Diabetes Association: diabetes.org ??? Academy of Nutrition and Dietetics: www.eatright.org ??? National [place] of Diabetes and Digestive and Kidney Diseases (NIH): www.niddk.nih.gov Summary ??? A healthy meal plan will help you control your blood glucose and maintain a healthy lifestyle. ??? Working with a diet and animal nutrition teacher (dietitian) can help you make a meal [...] provider. Document Revised: 04/22/2018 Document Reviewed: 06/14/2017 Ohana Patient Education ?? 2020 [employer]. Emergency Awareness and Preventative Care STROKE is [...] Assistance with quitting is available by contacting 8-658-WGNR-NOW. This is a free resource providing counseling, [...] range between ( 11.7 and 14.9 ) [place] Percent Man: 3 % -- Normal range [...] range between ( 0.0 and 7.0 ) [place] #: 0.29 K/uL -- Normal range between ( 0.16 and 1.00 ) Eos #: 0.00 x10(3)/uL -- Normal range between ( 0.00 and 0.80 ) [place] %: 3.5 % -- Normal range between [...] ) Urine Bilirubin Dipstick: Negative Urine Specific Erin: 1.013 -- Normal range between ( 1.005 [...] was given the opportunity to ask questions. Patient/Shipping Supervisor Name: Patient/Shipping Supervisor Signature: Relationship to Patient: Clinician/Hospital Shipping Supervisor Signature: Date: Electronically signed by Kolby Catalan Conversion Environmental Health Inspector Shiraner at 09/10/2022 12:37 AM CDT documented in this encounter Plan of Treatment Upcoming Encounters Date Type Department Care Team (Late st Contact Info) Description 11/12/2025 3:30 PM EDT Office Visit [facility] - Chlo[address] [facility] [address] [facility] [address] [place] [phone] Lu Bergman MD [address] [facility] [address] [place] [address] documented as of this encounter Visit Diagnoses Not on filedocumented in this encounter Care Teams Cereal Maker Relationship Specialty Start Date End Date Jonas Navas MD [address] [facility] [address] [place] [address] PCP - General Cardiothoracic Surgery 04/15/22 07/23/22 Marcell Uriostegui MD [address] [place] [address] [place] [address] PCP - General Adolescent Medicine 07/24/22 04/05/23 Heidi [place], WAREHOUSE PACKER [address] [facility] [address] [place] [address] PCP - General Nurse Practitioner 04/06/23 Lu Bergman MD [address] [facility] [address] [place] [address] Hematology and Oncology 10/31/24 documented as of this encounter
--- OUTSIDE RECORDS SUMMARY | 2025-05-21 09:42 | XMS_ITS | Encounter Summary ---
Author Organization [employer] ([place], [place], [place], [place], [place]) Address [address] [place] [address] Care Team Providers Care Returned Goods Receiving Clerk Name Role Phone Jonas Navas MD Primary Care Provider [phone] Marcell Uriostegui MD Primary Care Provider + [phone] Heidi [place] APRN Primary Care Provider + [phone] Lu Bergman MD Unavailable Encounter Details Date Type Department Care Team (Late st Contact Info) Description 12/08/2020 Transcribed Document [facility] [place] [address] [place] [address] ProviderJennifer MD [address] [place] [address] Social History Tobacco Use Types Packs/Day [...] 0.9% 100 mL 100 mg, IV Piggyback, [id number] famotidine 20 mg tab 20 mg 1 [...] toxin assay Discussed with patient and spouse. Electronically signed by Hossein, Kolby Conversion Radar Air Traffic Controller Cerner at 09/10/2022 12:47 AM CDT documented in this encounter Plan of Treatment Upcoming Encounters Date Type Department Care Team (Late st Contact Info) Description 11/12/2025 3:30 PM EDT Office Visit [facility] - [address] [place] [address] Lu Bergman MD [address] [place] [address] [address] [place] [address] documented as of this encounter Visit Diagnoses Not on filedocumented in this encounter Care Teams Returned Goods Receiving Clerk Relationship Specialty Start Date End Date Jonas Navas MD [address] [facility] [address] [place], [place] [address] PCP - General Cardiothoracic Surgery 04/15/22 07/23/22 Marcell Uriostegui MD [address] [place] [address] PCP - General Adolescent Medicine 07/24/22 04/05/23 Heidi [place], NET DEVELOPMENT MANAGER [address] [facility] [address] [place] [address] PCP - General Nurse Practitioner 04/06/23 Lu Bergman MD [address] [facility] [address] [place] [address] Hematology and Oncology 10/31/24 documented as of this encounter
--- OUTSIDE RECORDS SUMMARY | 2025-05-21 09:42 | XMS_ITS | Encounter Summary ---
Author Organization [employer] ([place], [place], [place], [place], [place]) Address [address] [place] [address] Care Team Providers Care Outdoor Power Equipment Mechanic Name Role Phone Jonas Navas MD Primary Care Provider [phone] Marcell Uriostegui MD Primary Care Provider + [phone] Heidi [place] APRN Primary Care Provider + [phone] Neptali Bergman MD Unavailable [phone] Encounter Details Date Type Department Care Team (Late st Contact Info) Description 12/09/2020 Transcribed Document [facility] [place] [address] ProviderJennifer MD [address] [place] [address] Social History Tobacco Use Types Packs/Day [...] On: 12/09/2020 16:13 EDT by Divya Macias, Oracle Agile Plm Consultant Patient Resource Center Provider Status : EST Other Established Provider Name : CARLITOS AKERS Patient Phone Number : [phone] Patient Insurance Type : Commercial (ex. [place] PPO, Cigna HMO), Medicare Source of Referral [...] at ED : Other Primary Language : Gabonese Patient Resource Center Comment : Patient needs follow up appointments. Called offices and scheduled appointments with Dr. Ding and Dr. Akers Follow Up Needed : No Divya Macias, Oracle Agile Plm Consultant - 12/09/2020 16:13 EDT Electronically signed by Hossein [facility] Conversion Stem Shaper Cerner at 09/10/2022 12:36 AM CDT documented in this encounter Plan of Treatment Upcoming Encounters Date Type Department Care Team (Late st Contact Info) Description 11/12/2025 3:30 PM EDT Office Visit [place] [facility] - [address] [place] [address] Neptali Bergman MD [address] [facility] [address] [place] [address] documented as of this encounter Visit Diagnoses Not on filedocumented in this encounter Care Teams Outdoor Power Equipment Mechanic Relationship Specialty Start Date End Date Jonas Navas MD [address] [facility] [address] [place] [address] PCP - General Cardiothoracic Surgery 04/15/22 07/23/22 Marcell Uriostegui MD [address] [place] [address] PCP - General Adolescent Medicine 07/24/22 04/05/23 Heidi [place], ROMERO [address] [facility] [address] [place] [address] PCP - General Nurse Practitioner 04/06/23 Neptali Bergman MD [address] [facility] [address] [place] [address] Hematology and Oncology 10/31/24 documented as of this encounter
--- OUTSIDE RECORDS SUMMARY | 2025-05-21 09:42 | XMS_ITS | Encounter Summary ---
Author Organization [employer] ([place], [place], [place], [place], [place]) Address [address] [place] [address] Care Team Providers Care Vegetables Cook Name Role Phone Jonas Navas MD Primary Care Provider [phone] Marcell Uriostegui MD Primary Care Provider + [phone] Heidi [place] APRN Primary Care Provider + [phone] Neptali Bergman MD Unavailable [phone] Encounter Details Date Type Department Care Team (Late st Contact Info) Description 07/31/2019 Transcribed Document [facility] [place] [facility] [place] [address] ProviderJennifer MD [address] [place] [address] Social History Tobacco Use Types Packs/Day [...] CHERI MUNIZ RN - 07/31/2019 15:21 EDT Electronically signed by Kolby Catalan Conversion Workers Compensation Claims Specialist Cerner at 09/10/2022 12:47 AM CDT documented in this encounter Plan of Treatment Upcoming Encounters Date Type Department Care Team (Late st Contact Info) Description 11/12/2025 3:30 PM EDT Office Visit [facility] - [place] [address] [place] [address] Neptali Bergman MD [address] [facility] [address] [place] [address] documented as of this encounter Visit Diagnoses Not on filedocumented in this encounter Care Teams Vegetables Cook Relationship Specialty Start Date End Date Jonas Navas MD [address] [facility] [address] [place] [address] PCP - General Cardiothoracic Surgery 04/15/22 07/23/22 Marcell Uriostegui MD [address] [facility] [address] [place] [address] PCP - General Adolescent Medicine 07/24/22 04/05/23 Heidi [place], MACHINE MAINTENANCE REPAIRER [address] [place], [place] [address] PCP - General Nurse Practitioner 04/06/23 Neptali Bergman MD [address] [facility] [address] [place] [address] Hematology and Oncology 10/31/24 documented as of this encounter
--- OUTSIDE RECORDS SUMMARY | 2025-05-21 09:42 | XMS_ITS | Encounter Summary ---
Author Organization [employer] ([place], [place], [place], [place], [place]) Address [address] [place] [address] Care Team Providers Care Waiter/Waitress Head Name Role Phone Jonas Navas MD Primary Care Provider [phone] Marcell Uriostegui MD Primary Care Provider + [phone] Heidi [place] APRN Primary Care Provider + [phone] Neptali Bergman MD Unavailable [phone] Encounter Details Date Type Department Care Team (Late st Contact Info) Description 12/09/2020 Transcribed Document [facility] [place] [facility] [address] ProviderJennifer MD [address] [place] [address] Social History Tobacco Use Types Packs/Day [...] abdominal metastases, COPD, NIDDM, GERD, HLD, HTN, ME, TIA, and CAD who presents to our facility from [facility]. Patient is currently intubated, sedated, [...] ALINA lobectomy COPD NIDDM GERD HLD HTN ME TIA CAD Past Surgical History ALINA lobectomy [...] mL: 100 mg, 50 mL/Hr, IV Piggyback, [id number] granisetron: 1 mg, IV Push, 1-Time granisetron: [...] Refill(s) fluticasone 50 mcg/inh nasal spray: 2 [place], Nasal, Daily, PRN: Nasal Congestion, 0 Refill(s) [...] 0.9% 100 mL 100 mg, IV Piggyback, [id number] famotidine 20 mg tab 20 mg 1 [...] Problem list: Medical Claustrophobia / SNOMED CT 87520815 / Confirmed Shortness of breath / SNOMED CT 547201867 / Confirmed GERD - Gastro-esophageal reflux disease / SNOMED CT 5692822497 / Confirmed Hiatal hernia / SNOMED CT 057491672 / Confirmed Diverticulosis / SNOMED CT 6478143874 / Confirmed Diabetes mellitus type II / SNOMED CT 49948774 / Confirmed CA - Lung cancer adenocarcinoma / SNOMED CT 3566154175 / Confirmed History of obstructive sleep apnea / IMO [id number] / Confirmed Inactive: Seasonal allergies / SNOMED CT 4752510151 Canceled: History of obstructive sleep apnea - no c-pap / IMO [id number] Canceled: Chronic cough / SNOMED CT 363040927 Canceled: History of obstructive sleep apnea / IMO [id number] Canceled: Current every day smoker / SNOMED CT 1385955655, Active Problems (18) Arthritis Back pain CA - Lung cancer adenocarcinoma 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 Claustrophobia Coronary artery disease s/p ME Diabetes mellitus type II Diverticulosis GERD - [...] Non-distended, Normal bowel sounds. Integumentary: Warm, Dry, [place]. Neurologic: Alert, Oriented, No focal deficits. 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 -I informed the patient [...] high complexity of decision making for assessment. Electronically signed by Deric Catalan Conversion Aboriginal Education Worker Coordinator Cerner at 09/10/2022 12:45 AM CDT documented in this encounter Plan of Treatment Upcoming Encounters Date Type Department Care Team (Late st Contact Info) Description 11/12/2025 3:30 PM EDT Office Visit [facility] - [address] [place] [address] Neptali Bergman MD [address] [facility] [address] [place] [address] documented as of this encounter Visit Diagnoses Not on filedocumented in this encounter Care Teams Waiter/Waitress Head Relationship Specialty Start Date End Date Jonas Navas MD [address] [facility] [address] [place] [address] PCP - General Cardiothoracic Surgery 04/15/22 07/23/22 Marcell Uriostegui MD [address] [place] [address] PCP - General Adolescent Medicine 07/24/22 04/05/23 Heidi [place] APRN [address] [place] [address] PCP - General Nurse Practitioner 04/06/23 Neptali Bergman MD [address] [facility] [address] [place] [address] Hematology and Oncology 10/31/24 documented as of this encounter
--- OUTSIDE RECORDS SUMMARY | 2025-05-21 09:42 | XMS_ITS | Encounter Summary ---
Author Organization [employer] ([place], [place], [place], [place], [place]) Address [address] [place] [address] Care Team Providers Care Childcare Worker Name Role Phone Jonas Navas MD Primary Care Provider [phone] Marcell Uriostegui MD Primary Care Provider + [phone] Heidi [place] APRN Primary Care Provider + [phone] Neptali Bergman MD Unavailable [phone] Encounter Details Date Type Department Care Team (Late st Contact Info) Description 12/08/2020 Transcribed Document [facility] [address] [place] [address] Clemente Currie MD [address] [place] [address] Social History Tobacco Use Types Packs/Day Years [...] November 2020 she knows she is at [facility] she does not remember the [...] - Lung cancer adenocarcinoma / SNOMED CT 4290506487 / Confirmed Claustrophobia / SNOMED CT 50183592 / Confirmed Diabetes mellitus type II / SNOMED CT 21144794 / Confirmed Diverticulosis / SNOMED CT 8335560148 / Confirmed Shortness of breath / SNOMED CT 302125321 / Confirmed GERD - Gastro-esophageal reflux disease / SNOMED CT 3874695533 / Confirmed Hiatal hernia / SNOMED CT 555121462 / Confirmed History of obstructive sleep apnea / IMO [id number] / Confirmed Inactive: Seasonal allergies / SNOMED CT 8848797402 Canceled: Chronic cough / SNOMED CT 744569441 Canceled: History of obstructive sleep apnea - no c-pap / IMO 58279384 Canceled: History of obstructive sleep apnea / IMO 19165404 Canceled: Current every day smoker / SNOMED CT 4245164839, Active Problems (18) Arthritis Back pain CA [...] mL: 100 mg, 50 mL/Hr, IV Piggyback, [id number] granisetron: 1 mg, IV Push, 1-Time granisetron: [...] Refill(s) fluticasone 50 mcg/inh nasal spray: 2 [place], Nasal, Daily, PRN: Nasal Congestion, 0 Refill(s) [...] Q6H fluticasone 50 mcg/inh nasal spray 2 [place], PRN, Nasal, Daily folic acid 1 mg [...] 0.9% 100 mL 100 mg, IV Piggyback, [id number] famotidine 20 mg tab 20 mg 1 [...] EDT Height Source Chart Height Entry Format [place] Height/Length, DUTCH (ft) 5 ft Height/Length DUTCH 2 Inch CLINICALHEIGHT 157.48 cm Routine Weight Source Bed scale Routine Weight Entry Format [place] Routine Weight, Pounds 177 lb Routine Weight, Ounces 8 oz Routine Weight Calculation 80.68 kg Body Mass Index (BMI), Routine 32.53 kg/m2 Body Surface Area (BSA), Routine 1.82 m2 General: Alert and oriented, No acute distress, Alert oriented to name, date of , age, November 2020, [facility]. .. Eye: Pupils are equal, round [...] to name date of age November 2020 [facility].. Review / Management Results review: Labs (Last [...] date of age 60 25 November 2020 [facility]. Recheck a CBC CMP in [...] recommendations regarding the patient's low platelet count. Newman Infinite dictation system used. Computer program makes numerous spelling grammar mistakes. If you have any questions or concerns do not hesitate call Dr. Clemente Patel at cell phone number [phone]. documented in this encounter Plan of Treatment Upcoming Encounters Date Type Department Care Team (Late st Contact Info) Description 11/12/2025 3:30 PM EDT Office Visit [place] [facility] - [address]lo[address] [facility] [address] [facility] [address] [place] [address] Neptali Bergman MD [address] [place] [address] documented as of this encounter Visit Diagnoses Not on filedocumented in this encounter Care Teams Childcare Worker Relationship Specialty Start Date End Date Jonas Navas MD [address] [facility] [address] [place] [address] PCP - General Cardiothoracic Surgery 04/15/22 07/23/22 Marcell Uriostegui MD [address] [place] [address] PCP - General Adolescent Medicine 07/24/22 04/05/23 Heidi Rivers, ROMERO 2017 [facility] [address] [place] [address] PCP - General Nurse Practitioner 04/06/23 Neptali Bergman MD [address] [facility] [address] [place] [address] Hematology and Oncology 10/31/24 documented as of this encounter
--- OUTSIDE RECORDS SUMMARY | 2025-05-21 09:42 | XMS_ITS | Encounter Summary ---
Author Organization [employer] ([place], [place], [place], [place], [place]) Address [address] [place] [address] Care Team Providers Care Sales Representative Meats Name Role Phone Jonas Navas MD Primary Care Provider [phone] Marcell Uriostegui MD Primary Care Provider + [phone] Heidi Rivers APRN Primary Care Provider + [phone] Neptali Bergman MD Unavailable [phone] Encounter Details Date Type Department Care Team (Late st Contact Info) Description 08/01/2019 Transcribed Document [facility] Family Medicine [facility] [place] [address] ProviderJennifer MD [address] [place] [address] Social History Tobacco Use Types [...] 08/01/2019 4:35 EDT Electronically signed by Hossein [facility] Conversion Boring Machine Operator Horizontal Cerner at 09/10/2022 12:32 AM CDT documented in this encounter Plan of Treatment Upcoming Encounters Date Type Department Care Team (Late st Contact Info) Description 11/12/2025 3:30 PM EDT Office Visit [place] [facility] - [address] [facility] [address] [place] [phone] Neptali Bergman MD [address] [facility] [address] [place] [address] documented as of this encounter Visit Diagnoses Not on filedocumented in this encounter Care Teams Sales Representative Meats Relationship Specialty Start Date End Date Jonas Navas MD [address] [facility] [address] [place] [address] PCP - General Cardiothoracic Surgery 04/15/22 07/23/22 Marcell Uriostegui MD [address] [place] [address] PCP - General Adolescent Medicine 07/24/22 04/05/23 Heidi Rivers, ROMERO [address] [place] [address] PCP - General Nurse Practitioner 04/06/23 Neptali Bergman MD [address] [facility] [address] [place] [address] Hematology and Oncology 10/31/24 documented as of this encounter
--- OUTSIDE RECORDS SUMMARY | 2025-05-21 09:42 | XMS_ITS | Encounter Summary ---
Author Organization [employer] ([place], [place], [place], [place], [place]) Address [address] [place] [address] Care Team Providers Care Cuff Matcher Name Role Phone Jonas Navas MD Primary Care Provider [phone] Marcell Uriostegui MD Primary Care Provider + [phone] Heidi Rivers APRN Primary Care Provider + [phone] Neptali Bergman MD Unavailable [phone] Encounter Details Date Type Department Care Team (Late st Contact Info) Description 08/02/2019 Transcribed Document [facility] [place] Family Medicine [facility] [place] [address] ProviderJennifer MD [address] [place] [address] Social History Tobacco Use Types Packs/Day [...] Policy Numbers : Insurance 1 Health Plan: [employer] Policy Number: [id number] Authorization Number: [id number] [facility] Policy Number: [id number] Authorization Status-Primary : Awaiting callback Authorization Number-Primary : [id number] Number of Days Authorized-Primary : 3 Day(s) Authorized Service Begin Date-Primary : 07/25/2019 EST Authorized Service End Date-Primary : 07/28/2019 EST Authorization Comments-Primary : Faxed clinicals via [employer] on 07/30 and 08/01. Historical Authorization Comments-Primary : Comment 1: [place] approved per availity for 4 days inpt (NORI VALVERDE, RN-Utilization Review 07/21/2019 13:39) SURENDRA FRANK Rn-Utilization Review - 08/02/2019 13:11 EDT Electronically signed by [facility] Conversion Thread Separator Cerner at 09/10/2022 12:47 AM CDT documented in this encounter Plan of Treatment Upcoming Encounters Date Type Department Care Team (Late st Contact Info) Description 11/12/2025 3:30 PM EDT Office Visit [place] [facility] - [address] [place] [id number] Neptali Bergman MD [address] [place] [address] [address] [place] [address] documented as of this encounter Visit Diagnoses Not on filedocumented in this encounter Care Teams Cuff Matcher Relationship Specialty Start Date End Date Jonas Navas MD [address] [facility] [address] [place], [place] [id number] PCP - General Cardiothoracic Surgery 04/15/22 07/23/22 Marcell Uriostegui MD [address] [place] [address] PCP - General Adolescent Medicine 07/24/22 04/05/23 Heidi Rivers, CHEF BROILER OR FRY [address] [facility] [address] [place] [address] PCP - General Nurse Practitioner 04/06/23 Neptali Bergman MD [address] [address] Hematology and Oncology 10/31/24 documented as of this encounter
--- OUTSIDE RECORDS SUMMARY | 2025-05-21 09:42 | XMS_ITS | Encounter Summary ---
Author Organization [employer] ([place], [place], [place], [place], [place]) Address [address] [place] [address] Care Team Providers Care Glass Etcher Name Role Phone Jonas Navas MD Primary Care Provider [phone] Marcell Uriostegui MD Primary Care Provider + [phone] Heidi Rivers APRN Primary Care Provider + [phone] Neptali Bergman MD Unavailable [phone] Encounter Details Date Type Department Care Team (Late st Contact Info) Description 08/03/2019 Transcribed Document [facility] Family Medicine [address] [place] [address] ProviderJennifer MD [address] [place] [address] Social History Tobacco Use Types Packs/Day [...] ADRIAN BROWN PTA - 08/03/2019 8:11 EDT Metal Filer Goals Mobility/Bed Mobility LTG PT Grid Goal [...] Description 11/12/2025 3:30 PM EDT Office Visit [place] [facility] - [facility] [address] [facility] [address] [place] [address] Neptali Bergman MD [address] [facility] [address] [place] [address] documented as of this encounter Visit Diagnoses Not on filedocumented in this encounter Care Teams Glass Etcher Relationship Specialty Start Date End Date Jonas Navas MD [address] [facility] [address] [place], [place] [address] PCP - General Cardiothoracic Surgery 04/15/22 07/23/22 Marcell Uriostegui MD [address] [facility] [address] [place] [address] PCP - General Adolescent Medicine 07/24/22 04/05/23 Heidi Rivers, RESTAURANT AREA MANAGER [address] [place] [address] PCP - General Nurse Practitioner 04/06/23 Neptali Bergman MD [address] [facility] [address] [place] [address] Hematology and Oncology 10/31/24 documented as of this encounter
--- OUTSIDE RECORDS SUMMARY | 2025-05-21 09:42 | XMS_ITS | Encounter Summary ---
Author Organization [email or web address] ([place], [place], [place], [place], [place]) Address [address] [place] [address] Care Team Providers Care Rigger Helper Name Role Phone Jonas Navas MD Primary Care Provider [phone] Marcell Uriostegui MD Primary Care Provider + [phone] Heidi Rivers APRN Primary Care Provider + [phone] Lu Bergman MD Unavailable [phone] Encounter Details Date Type Department Care Team (Late st Contact Info) Description 03/20/2021 Transcribed Document [facility] [place] [facility] [place] [address] ProviderJennifer MD [address] [place] [address] Social History Tobacco Use Types [...] Jennifer ProviderMD - 03/20/2021 12:54 PM CDT [facility] [place] [address] ALEJANDRINA YEH :1955 Visit Time:03/20/2021 Your Visit Summary Your Care Team Admitting Physician - LU BERGMAN MD-ONC Attending Physician - LU BERGMAN MD-ONC Primary Care Physician - HEIDI RIVERS NP-FAM Referring Physician - LU BERGMAN [...] MD-ONC When Comments Follow-up as instructed Where: [address] [place] [address]- Medications What How Much When Instructions Next [...] (fluticasone 50 mcg/ inh nasal spray) 2 Marathon(s) Nasal Every Day as needed for Nasal [...] port is placed, you will get a space studies faculty member's information card. The card has information about [...] and water are not available, use hand corporate receptionist. ? Change your dressing as told by [...] it is safe. General instructions ??? Take msrj-iar-byddzmp and prescription medicines only as told by [...] by your health care provider. Keep the space studies faculty member's information card with you at all times. [...] provider. Document Revised: 12/06/2018 Document Reviewed: 12/06/2018 [facility] Patient Education ?? 202 [employer] Moderate [...] you are awake and alert. ??? Take fmrh-hws-dboaorg and prescription medicines only as told by [...] Reviewed: 04/04/2020 [employer] Patient Education ?? 2020 [employer] Emergency Awareness and Preventative Care STROKE [...] Assistance with quitting is available by contacting 4-872-ZRQC-NOW. This is a free resource providing counseling, support, and referral. Or you may contact your personal physician. [place] Suicide Prevention Lifeline: The National Suicide Prevention [...] was given the opportunity to ask questions. Patient/Director Operating Room Name: Patient/Director Operating Room Signature: Relationship to Patient: Clinician/Hospital Director Operating Room Signature: Date: documented in this encounter Plan of Treatment Upcoming Encounters Date Type Department Care Team (Late st Contact Info) Description 11/12/2025 3:30 PM EDT Office Visit [place] [facility] - [address] [place] [address] Lu Bergman MD [address] [facility] [address] [place] [address] documented as of this encounter Visit Diagnoses Not on filedocumented in this encounter Care Teams Rigger Helper Relationship Specialty Start Date End Date Jonas Navas MD [address] [facility] [address] [place] [address] PCP - General Cardiothoracic Surgery 04/15/22 07/23/22 Marcell Uriostegui MD [address] [place] [address] PCP - General Adolescent Medicine 07/24/22 04/05/23 Heidi Rivers APRN [address] [facility] [address] [place] [address] PCP - General Nurse Practitioner 04/06/23 Lu Bergman MD [address] [facility] [address] [place] [address] Hematology and Oncology 10/31/24 documented as of this encounter
--- OUTSIDE RECORDS SUMMARY | 2025-05-21 09:42 | XMS_ITS | Encounter Summary ---
Author Organization [employer] ([place], [place], [place], [place], [place]) Address [address] [place] [address] Care Team Providers Care Gas Turbine Mechanic Name Role Phone Jonas Navas MD Primary Care Provider [phone] Marcell Uriostegui MD Primary Care Provider + [phone] Heidi Rivers APRN Primary Care Provider + [phone] Neptali Bergman MD Unavailable [phone] Encounter Details Date Type Department Care Team (Late st Contact Info) Description 03/20/2021 Transcribed Document [facility] Family [place] [facility] [place] [address] ProviderJennifer MD [address] [place] [address] Social History Tobacco Use Types [...] Source : Stated Height Entry Format : Stearns Height, Feet : 5 ft(Converted to: 152 cm, 60 Inch) Height, Inches : 1 Inch(Converted to: 0 ft 1 Inch, 2.54 cm) Clinical Height : 154.94 cm Weight Source : Standing scale Weight Entry Format : [employer]s Clinical [facility] Weight : 79.09 kg Weight, Pounds : 174 lb Body Surface Area (BSA) : 1.78 m2 Body Mass Index : 32.9 kg/m2 (HI) [place] Body Weight : 47 kg YONG ALCAZAR RN - 03/20/2021 9:51 EDT Health Histories Smoking Status : Former smoker, quit more than 30 days ago Smokeless Tobacco Status : Never Implant/Device Type, Spike Machine Operator and Model : none YONG ALCAZAR RN [...] YONG ALCAZAR RN - 03/20/2021 9:51 EDT [place] Suicide Severity Rating Scale (C-SSRS) CSSRS Past [...] Alejandrina Legal Guardian : No Support Person/Patient Wheel Alignment Technician : Yes Support Person/Pt Rep Name : Ti Yeh - spouse Contact Password : [facility] Support Person/Pt Rep Contact Information : [phone] Want Family/Rep/Phys Notified of Admit : No Emergency Contact #1 : . Emergency Contact #1 Phone Number : . Emergency Contact #1 Relationship : . Emergency Contact #2 : . Emergency Contact #2 Phone Number : . Emergency Contact #2 Relationship : . Primary Language : Z[place]ian Communication Barrier : None Chemical Manager Needed : No YONG ALCAZAR RN - [...] Scale Risk Level : 25-45 Medium Risk [place] Fall Interventions : Adequate lighting, Assistive devices [...] Description 11/12/2025 3:30 PM EDT Office Visit [place] [facility] [place] [address] [facility] [address] [place] [address] Neptali Bergman MD [address] [facility] [address] [place] [address] documented as of this encounter Visit Diagnoses Not on filedocumented in this encounter Care Teams Gas Turbine Mechanic Relationship Specialty Start Date End Date Jonas Navas MD [address] [facility] [address] [place], [place] [address] PCP - General Cardiothoracic Surgery 04/15/22 07/23/22 Marcell Uriostegui MD [address] [place] [address] PCP - General Adolescent Medicine 07/24/22 04/05/23 Heidi Rivers APRN [address] [facility] [address] [place] [address] PCP - General Nurse Practitioner 04/06/23 Neptali Bergman MD [address] [facility] [address] [place] [address] Hematology and Oncology 10/31/24 documented as of this encounter
--- OUTSIDE RECORDS SUMMARY | 2025-05-21 09:42 | XMS_ITS | Encounter Summary ---
Author Organization [employer] ([place], [place], [place], [place], [place]) Address [address] [place] [address] Care Team Providers Care Molding Machine Setter Name Role Phone Jonas Navas MD Primary Care Provider [phone] Marcell Uriostegui MD Primary Care Provider + [phone] Heidi Rivers APRN Primary Care Provider + [phone] Neptali Bergman MD Unavailable [phone] Encounter Details Date Type Department Care Team (Late st Contact Info) Description 08/02/2019 Transcribed Document [facility] Family Medicine [address] [place] [address] ProviderJennifer MD [address] [place] [address] Social History Tobacco Use Types Packs/Day Years Used Date Smoking Tobacco: Never Assessed Comments Unknown Sex and Gender Information Value Date Recorded Sex Assigned at Not on file Legal Sex Female 1:09 PM CDT Gender Identity Not on file Sexual Orientation Not on file documented as of this encounter Miscellaneous Notes * Cerner Conversion Note - eJnnifer ProviderMD - 08/02/2019 12:55 PM CDT Patient [...] 11/08/2012 Document Revised: 02/01/2017 Document Reviewed: 02/01/2017 [employer] Interactive Patient Education ? 2019 [employer] Thoracotomy, Care After This sheet gives [...] (pulmonary rehabilitation) as told. Medicines ??? Take byyq-rwv-ryqpmla or prescription medicines only as told by [...] cannot use soap and water, use hand dial equipment engineer. ? Change your bandage as told by [...] doctor may recommend that you: ? Take bhcp-nid-duleznb or prescription medicines. ? Eat foods that [...] 11/08/2012 Document Revised: 02/01/2017 Document Reviewed: 02/01/2017 [employer] Interactive Patient Education ? 2019 [employer] Incentive Spirometer An incentive spirometer is [...] 09/20/2007 Document Revised: 02/01/2017 Document Reviewed: 12/17/2014 [employer] Interactive Patient Education ? 2018 [employer]. Diabetes Mellitus and Sick Day Management Blood [...] of sugar. Take medicines as directed ??? Anne-kcff-ibp-counter and prescription medicines only as told by [...] 05/12/2004 Document Revised: 02/05/2017 Document Reviewed: 02/05/2017 [employer] Interactive Patient Education ? 2019 [employer] Steps to Quit Smoking Smoking tobacco [...] 03/06/2010 Document Revised: 01/05/2017 Document Reviewed: 09/24/2015 [employer] Interactive Patient Education ? 2019 [employer] Electronically signed by Kolby Catalan Conversion Swine Extension Field Specialist Cerner at 09/10/2022 12:32 AM CDT documented in this encounter Plan of Treatment Upcoming Encounters Date Type Department Care Team (Late st Contact Info) Description 11/12/2025 3:30 PM EDT Office Visit [place] [facility] - [place] [facility] [address] [place] [address] Neptali Bergman MD [address] [place] [address] documented as of this encounter Visit Diagnoses Not on filedocumented in this encounter Care Teams Molding Machine Setter Relationship Specialty Start Date End Date Jonas Navas MD [address] [facility] [address] [place] [address] PCP - General Cardiothoracic Surgery 04/15/22 07/23/22 Marcell Uriostegui MD [address] [facility] [address] [place] [address] PCP - General Adolescent Medicine 07/24/22 04/05/23 Heidi Rivers, ROMERO [address] [facility] [address] [place] [address] PCP - General Nurse Practitioner 04/06/23 Neptali Bergman MD [address] [facility] [address] [place] [address] Hematology and Oncology 10/31/24 documented as of this encounter
--- OUTSIDE RECORDS SUMMARY | 2025-05-21 09:42 | XMS_ITS | Encounter Summary ---
Author Organization [employer] ([place], [place], [place], [place], [place]) Address [address] [place] [address] Care Team Providers Care Operating Room Technologist Name Role Phone Blaze Walden MD Primary Care Provider [phone] Marcell Uriostegui MD Primary Care Provider + [phone] Haroldo Rivers APRN Primary Care Provider + [phone] Lu Bergman MD Unavailable [phone] Encounter Details Date Type Department Care Team (Late st Contact Info) Description 08/02/2019 Transcribed Document [facility] [place] Medicine [facility] [place] [address] ProviderJennifer MD [address] [place] [address] Social History [...] Jennifer ProviderMD - 08/02/2019 3:39 PM CDT [facility] SHAI Reyna [address] [address] [...] Care Team Medical Equipment for Home Use: [employer]Medics/ Transportation: Follow-Up Appointments Follow Up with BLAZE WALDEN When 08/24/2019 09:30 AM EDT Comments f/u with surgeon Where: [address] [facility] [address] [place] [address]- Business (1) Follow Up with LU BERGMAN MD-ONC When 08/14/2019 12:45 PM EDT Comments f/u with oncologist for lung cancer Where: [address] [facility] [address] [place] [address]- Follow Up with F\U with Dr. Jordy Akers (PCP) [facility] Internal Medicine [phone] in 5-7days When Within 5 to 7 days Medications What How Much When Instructions Next Dose acetaminophen-oxyCODONE (Percocet 5/ 325 oral tablet) 1 Tablet(s) Oral Every 4 Hours as needed for for pain as needed nicotine (Habitrol 21 mg/ 24 hr transdermal film, extended release) 1 Patch(es) TransDermal Every Day Pickup at [facility] 08/02 albuterol 2 puffs Inhalation Every [...] (fluticasone 50 mcg/ inh nasal spray) 2 [place](s) Nasal Every Day as needed for Congestion as needed fluticasone-salmeterol (Advair Diskus 250 mcg-50 mcg inhalation powder) 1 Puff(s) Inhalation Two Times A Day 08/01 hydrochlorothiazide-lisinopril (hydroCHLOROthiazide-lisinopril 25 mg-20 mg oral tablet) 1 Tablet(s) Oral Every Day 08/02 metFORMIN 500 Milligram(s) Oral At Bedtime 08/01 omeprazole 20 Milligram(s) Oral Every Day 08/02 Pharmacy Information [facility]: [address] [phone] Take your medications faithfully. Do NOT skip [...] 11/08/2012 Document Revised: 02/01/2017 Document Reviewed: 02/01/2017 Ideagen Interactive Patient Education ?? 2019 [employer]. Thoracotomy, Care After This sheet gives you [...] (pulmonary rehabilitation) as told. Medicines ??? Take tqpk-dkd-wljkrrf or prescription medicines only as told by [...] cannot use soap and water, use hand hospice fellow. ? Change your bandage as told by [...] doctor may recommend that you: ? Take zmtl-euq-dgtkpgg or prescription medicines. ? Eat foods that [...] 11/08/2012 Document Revised: 02/01/2017 Document Reviewed: 02/01/2017 [employer]agen Interactive Patient Education ?? 2019 [employer]. Incentive Spirometer An incentive spirometer is a [...] 09/20/2007 Document Revised: 02/01/2017 Document Reviewed: 12/17/2014 [employer]agen Interactive Patient Education ?? 2018 [employer]. Diabetes Mellitus and Sick Day Management Blood [...] of sugar. Take medicines as directed ??? Jwhg-axxs-spy-counter and prescription medicines only as told by [...] 05/12/2004 Document Revised: 02/05/2017 Document Reviewed: 02/05/2017 [employer]agen Interactive Patient Education ?? 2019 [employer]. Steps to Quit Smoking Smoking tobacco can [...] 03/06/2010 Document Revised: 01/05/2017 Document Reviewed: 09/24/2015 ElseCnekt Interactive Patient Education ?? 2019 Elsevier Inc. [...] may report side effects to FDA at 5-415-HFM-4472. What other drugs will affect nicotine? Other drugs may affect nicotine transdermal, including prescription and yeet-soy-olpngmh medicines, vitamins, and herbal products. Tell your [...] to ensure that the information provided by [employer]. ('Mult[employer]') is accurate, up-to-date, and complete, but no guarantee is made to that effect. Drug information contained herein may be time sensitive. [employer] information has been compiled for use by healthcare practitioners and consumers in the [place] and therefore [employer] does not warrant that uses outside of the [place] are appropriate, unless specifically indicated otherwise. [employer]'s drug information does not endorse drugs, diagnose patients or recommend therapy. [employer]s drug information is an informational resource designed [...] effective or appropriate for any given patient. [facility] [place] does not assume any responsibility for any aspect of healthcare administered with the aid of information [facility] [place] provides. The information contained herein is not intended to cover all possible uses, directions, precautions, warnings, drug interactions, allergic reactions, or adverse effects. If you have questions about the drugs you are taking, check with your doctor, nurse or pharmacist. Copyright 5381-2547 [employer]. Version: 3.01. Revision Date: 12/29/2018. acetaminophen and [...] may report side effects to FDA at 3-055-NTN-0740. What other drugs will affect acetaminophen and [...] affect acetaminophen and oxycodone, including prescription and acud-izr-zbkkysq medicines, vitamins, and herbal products. Not all [...] to ensure that the information provided by [employer]. ('Multum') is accurate, up-to-date, and complete, but no guarantee is made to that effect. Drug information contained herein may be time sensitive. [employer] information has been compiled for use by healthcare practitioners and consumers in the [place] and therefore [employer] does not warrant that uses outside of the [place] are appropriate, unless specifically indicated otherwise. [employer] drug information does not endorse drugs, diagnose patients or recommend therapy. [employer] drug information is an informational resource designed [...] effective or appropriate for any given patient. [employer] does not assume any responsibility for any aspect of healthcare administered with the aid of information [employer] provides. The information contained herein is not intended to cover all possible uses, directions, precautions, warnings, drug interactions, allergic reactions, or adverse effects. If you have questions about the drugs you are taking, check with your doctor, nurse or pharmacist. Copyright 6789-7207 [employer]. Version: 18.02. Revision Date: 04/20/2018. Emergency Awareness [...] Assistance with quitting is available by contacting 3-554-TDVR-NOW. This is a free resource providing counseling, [...] range between ( 0.0 and 7.0 ) [place] #: 1.41 K/uL -- Normal range between ( 0.16 and 1.00 ) [place] #: 0.06 x10(3)/uL -- Normal range between ( 0.00 and 0.80 ) [place] %: 9.9 % -- Normal range between [...] /LPF Urine Bilirubin Dipstick: Negative Urine Specific [place]: 1.017 -- Normal range between ( 1.005 [...] was given the opportunity to ask questions. Patient/Greeter Guest Services Name: Patient/Greeter Guest Services Signature: Relationship to Patient: Clinician/Hospital Greeter Guest Services Signature: Date: Electronically signed by Kolby Catalan Conversion Casting And Pasting Supervisor Cerner at 09/10/2022 12:44 AM CDT documented in this encounter Plan of Treatment Upcoming Encounters Date Type Department Care Team (Late st Contact Info) Description 11/12/2025 3:30 PM EDT Office Visit [facility] - [place] [address] [place] [phone] Lu Bergman MD [address] [facility] [address] [place] [address] documented as of this encounter Visit Diagnoses Not on filedocumented in this encounter Care Teams Operating Room Technologist Relationship Specialty Start Date End Date Blaze Walden MD [address] [facility] [address] [place] [address] PCP - General Cardiothoracic Surgery 04/15/22 07/23/22 Marcell Uriostegui MD [address] [place] [address] [place] [address] PCP - General Adolescent Medicine 07/24/22 04/05/23 Haroldo Rivers APRN [address] [place] [address] PCP - General Nurse Practitioner 04/06/23 Lu Bermgan MD [address] [facility] [address] [place] [address] Hematology and Oncology 10/31/24 documented as of this encounter
--- OUTSIDE RECORDS SUMMARY | 2025-05-21 09:42 | XMS_ITS | Encounter Summary ---
Author Organization [employer] ([place], [place], [place], [place], [place]) Address [address] [place] [address] Care Team Providers Care Electric Spot Welder Name Role Phone Jnoas Navas MD Primary Care Provider [phone] Marcell Uriostegui MD Primary Care Provider + [phone] Heidi Rivers APRN Primary Care Provider + [phone] Neptali Bergman MD Unavailable [phone] Encounter Details Date Type Department Care Team (Late st Contact Info) Description 07/31/2019 Transcribed Document [facility] [facility] [place] [address] ProviderJennifer MD [address] [place] [address] Social History Tobacco Use Types Packs/Day [...] Admission Diagnosis : Atherosclerotic heart disease of [place] coronary artery without angina pectoris Chronic obstructive [...] Stated) Claustrophobia (Medical) Coronary artery disease s/p CA (Patient Stated) Current every day smoker (Medical) [...] change in location/level of care Rapid Response Electric Spot Welder #1 : OMAR RODRIGES, RN OMAR RODRIGES, RN - 07/31/2019 3:09 EDT Electronically signed by Kolby Catalan Conversion Three Dimensional Art Instructor Cerner at 09/10/2022 12:46 AM CDT documented in this encounter Plan of Treatment Upcoming Encounters Date Type Department Care Team (Late st Contact Info) Description 11/12/2025 3:30 PM EDT Office Visit [facility] - [place] [address] [place] [address] Neptali Bergman MD [address] [place] [address] [address] [place] [address] documented as of this encounter Visit Diagnoses Not on filedocumented in this encounter Care Teams Electric Spot Welder Relationship Specialty Start Date End Date Jonas Navas MD [address] [facility] [address] [place] [address] PCP - General Cardiothoracic Surgery 04/15/22 07/23/22 Marcell Uriostegui MD [address] [place] [address] PCP - General Adolescent Medicine 07/24/22 04/05/23 Heidi Rivers, ROMERO [address] [facility] [address] [place] [address] PCP - General Nurse Practitioner 04/06/23 Neptali Bergman MD [address] [facility] [address] [place] [address] Hematology and Oncology 10/31/24 documented as of this encounter
--- OUTSIDE RECORDS SUMMARY | 2025-05-21 09:42 | XMS_ITS | Encounter Summary ---
Author Organization [employer] ([place], [place], [place], [place], [place]) Address [address] [place] [address] Care Team Providers Care Printed Circuit Boards Contact Printer Name Role Phone Jonas Navas MD Primary Care Provider [phone] Marcell Uriostegui MD Primary Care Provider + [phone] Heidi Rivers APRN Primary Care Provider + [phone] Neptali Bergman MD Unavailable [phone] Encounter Details Date Type Department Care Team (Late st Contact Info) Description 08/01/[address] [facility] [place] Medicine [address] [place] [address] ProviderJennifer MD [address] [place] [address] Social History Tobacco Use Types Packs/Day [...] Date: Discharge Date: Attending: Dr. Jonas Navas, [place] Surgery PCP: Dr. Jordy Akers ( [facility] Internal Medicine, ) Consultants: Brief History:This 63-year-old [...] results Interpretation: Radiology Results (Last 48 hours) [id number] -- 07/25/2019 07:00 CR Chest 1 Vw [...] chair Encouraged IS Transfer to [facility] 07/27/19 POD#2 O2 92% on 4 [...] Description 11/12/2025 3:30 PM EDT Office Visit [facility] - [address] [address] Neptali Bergman MD [address] [place] [address] [address] [place] [address] documented as of this encounter Visit Diagnoses Not on filedocumented in this encounter Care Teams Printed Circuit Boards Contact Printer Relationship Specialty Start Date End Date Jonas Navas MD [address] [facility] [address] [place], [place] [id number] PCP - General Cardiothoracic Surgery 04/15/22 07/23/22 Marcell Uriostegui MD [address] [facility] [address] [place] [address] PCP - General Adolescent Medicine 07/24/22 04/05/23 Heidi Rivers, ROMERO [address] [facility] [address] [place] [address] PCP - General Nurse Practitioner 04/06/23 Neptali Bergman MD [address] [place] [address] [address] [place] [address] Hematology and Oncology 10/31/24 documented as of this encounter
--- OUTSIDE RECORDS SUMMARY | 2025-05-21 09:42 | XMS_ITS | Encounter Summary ---
Author Organization [employer] ([place], [place], [place], [place], [place]) Address [address] [place] [address] Care Team Providers Care Transportation Lead Name Role Phone Jonas Navas MD Primary Care Provider [phone] Marcell Uriostegui MD Primary Care Provider + [phone] Heidi Rivers APRN Primary Care Provider + [phone] Neptali Bergman MD Unavailable [phone] Encounter Details Date Type Department Care Team (Late st Contact Info) Description 12/09/2020 Transcribed Document [facility] [place] [address] ProviderJennifer MD [address] [place] [address] Social History Tobacco Use Types Packs/Day [...] Jailene Zeng RN - 12/09/2020 17:24 EDT documented in this encounter Plan of Treatment Upcoming Encounters Date Type Department Care Team (Late st Contact Info) Description 11/12/2025 3:30 PM EDT Office Visit [facility] - [place] [address] [facility] [address] [place] [address] Neptali Bergman MD [address] [facility] [address] [place] [address] documented as of this encounter Visit Diagnoses Not on filedocumented in this encounter Care Teams Transportation Lead Relationship Specialty Start Date End Date Jonas Navas MD [address] [facility] [address] [place] [address] PCP - General Cardiothoracic Surgery 04/15/22 07/23/22 Marcell Uriostegui MD [address] [place] [address] [place], [place] [address] PCP - General Adolescent Medicine 07/24/22 04/05/23 Heidi Rivers, ROMERO [address] [place] [address] PCP - General Nurse Practitioner 04/06/23 Neptali Bergman MD [address] [facility] [address] [place] [address] Hematology and Oncology 10/31/24 documented as of this encounter
--- OUTSIDE RECORDS SUMMARY | 2025-05-21 09:42 | XMS_ITS | Encounter Summary ---
Author Organization [employer] ([place], [place], [place], [place], [place]) Address [address] [place] [address] Care Team Providers Care Surg Tech Name Role Phone Jonas Navas MD Primary Care Provider [phone] Marcell Uriostegui MD Primary Care Provider + [phone] Heidi Rivers APRN Primary Care Provider + [phone] Neptali Bergman MD Unavailable [phone] Encounter Details Date Type Department Care Team (Late st Contact Info) Description 12/10/2020 Transcribed Document [facility] [place] [facility] [place] [address] ProviderJennifer MD [address] [place] [address] Social History Tobacco Use Types Packs/Day [...] On: 12/10/2020 9:55 EDT by FRANDY LOONEY RN-Wrapping Machine Operator Final Discharge Planning Discharge Arrangements : Patient Post-Acute Information Patient Name: DHAVAL YEHYCRonen Hardwick Gender: Female : 55 Age: 65 Years No Post-Acute Placement(s) Listed No Post-Acute Service(s) Listed No [place] Referral(s) Listed Discharge To Care Management : Home/Residential/Usp or Self Care -01 FRANYD LOONEY, RN-Wrapping Machine Operator - 12/10/2020 9:55 EDT Electronically signed by Hossein [facility] Conversion Integrity Assessor Cerner at 09/10/2022 12:33 AM CDT documented in this encounter Plan of Treatment Upcoming Encounters Date Type Department Care Team (Late st Contact Info) Description 11/12/2025 3:30 PM EDT Office Visit [facility] - [address] [place] [address] Neptali Bergman MD [address] [place] [address] [address] [place] [address] documented as of this encounter Visit Diagnoses Not on filedocumented in this encounter Care Teams Surg Tech Relationship Specialty Start Date End Date Jonas Navas MD [address] [facility] [address] [place], [place] [id number] PCP - General Cardiothoracic Surgery 04/15/22 07/23/22 Marcell Uriostegui MD [address] [place] [address] [place] [address] PCP - General Adolescent Medicine 07/24/22 04/05/23 Heidi Rivers, DRAPERY HEMMER AUTOMATIC [address] [place] [address] PCP - General Nurse Practitioner 04/06/23 Neptali Bergman MD [address] [facility] [address] [place] [address] Hematology and Oncology 10/31/24 documented as of this encounter
--- OUTSIDE RECORDS SUMMARY | 2025-05-21 09:43 | XMS_ITS | Encounter Summary ---
Author Organization [employer] ([place], [place], [place], [place], [place]) Address [address] [place] [address] Care Team Providers Care General Production Laborer Name Role Phone Jonas Navas MD Primary Care Provider [phone] Marcell Uriostegui MD Primary Care Provider + [phone] Heidi Rivers APRN Primary Care Provider + [phone] Neptali Bergman MD Unavailable [phone] Encounter Details Date Type Department Care Team (Late st Contact Info) Description 05/22/2020 Transcribed Document [facility] [place] Family Medicine [address] [place] [address] ProviderJennifer MD [address] [place] [address] Social History Tobacco Use Types Packs/Day Years Used Date Smoking Tobacco: Never Assessed Comments Unknown Sex and Gender Information Value Date Recorded Sex Assigned at Not on file Legal Sex Female 1:09 PM CDT Gender Identity Not on file Sexual Orientation Not on file documented as of this encounter Miscellaneous Notes * Cerner Conversion Note - Jennifer ProviderMD - 05/22/2020 3:21 PM LACTATION COORDINATOR Evaluation, Occupational Therapy Entered On: 05/23/2020 12:29 [...] 64 yo female who was admitted to [facility] on 05/22 for spondylosis with myelopathy, s/p [...] wheel BELL SOARESNOLVIAR/Kayode - 05/23/2020 12:12 EST [place] OT Charges OT Selfcare/Hm Mgmt Ea 15 Min : 1 OT Ther Activities Ea 15 Min : 1 OT Eval Low Complexity : 1 BELL SOARESNOLVIAR/Kayode - 05/23/2020 12:12 EST Electronically signed by Hossein [facility] Conversion Corporate Counsel Cerner at 09/10/2022 12:30 AM CDT documented in this encounter Plan of Treatment Upcoming Encounters Date Type Department Care Team (Late st Contact Info) Description 11/12/2025 3:30 PM EDT Office Visit [facility] - [place] [address] [place] [address] Neptali Bergman MD [address] [facility] [address] [place] [address] documented as of this encounter Visit Diagnoses Not on filedocumented in this encounter Care Teams General Production Laborer Relationship Specialty Start Date End Date Jonas Navas MD [address] [facility] [address] [place], [place] [address] PCP - General Cardiothoracic Surgery 04/15/22 07/23/22 Marcell Uriostegui MD [address] [facility] [address] [place] [address] PCP - General Adolescent Medicine 07/24/22 04/05/23 Heidi Rivers, ASSOCIATE PROFESSOR OF ENGLISH [address] [place] [address] PCP - General Nurse Practitioner 04/06/23 Neptali Bergman MD [address] [facility] [address] [place] [address] Hematology and Oncology 10/31/24 documented as of this encounter
--- OUTSIDE RECORDS SUMMARY | 2025-05-21 09:43 | XMS_ITS | Encounter Summary ---
Author Organization [employer] ([place], [place], [place], [place], [place]) Address [address] [place] [address] Care Team Providers Care Industrial Paramedic Name Role Phone Jonas Navas MD Primary Care Provider [phone] Marcell Uriostegui MD Primary Care Provider + [phone] Heidi Rivers APRN Primary Care Provider + [phone] Neptali Bergman MD Unavailable [phone] Encounter Details Date Type Department Care Team (Late st Contact Info) Description 03/28/2020 Transcribed Document [facility] [place] [facility] [place] [address] ProviderJennifer MD [address] [place] [address] Social History Tobacco Use Types Packs/Day Years Used Date Smoking Tobacco: Never Assessed Comments Unknown Sex and Gender Information Value Date Recorded Sex Assigned at Not on file Legal Sex Female 1:09 PM CDT Gender Identity Not on file Sexual Orientation Not on file documented as of this encounter Miscellaneous Notes * Cerner Conversion Note - Jennifer ProviderMD - 03/28/2020 9:22 AM FILM PAINTER Pain Assessment Entered On: 03/28/2020 15:05 EST Performed On: 03/28/2020 11:52 EST by LAURENCE CHANEY, RN Intervention Information: HYDROmorphone Performed by LAURENCE CHANEY, RN on 03/28/2020 11:22:00 EST HYDROmorphone,0.5mg [...] Description 11/12/2025 3:30 PM EDT Office Visit [facility] - [facility] [address] [place] [address] [address] [place] [address] Neptali Bergman MD [address] [facility] [address] [place] [address] documented as of this encounter Visit Diagnoses Not on filedocumented in this encounter Care Teams Industrial Paramedic Relationship Specialty Start Date End Date Jonas Navas MD [address] [facility] [address] [place], [place] [address] PCP - General Cardiothoracic Surgery 04/15/22 07/23/22 Marcell Uriostegui MD [address] [place] [address] PCP - General Adolescent Medicine 07/24/22 04/05/23 Heidi Rivers APRN [address] [place] [address] PCP - General Nurse Practitioner 04/06/23 Neptali Bergman MD [address] [facility] [address] [place] [address] Hematology and Oncology 10/31/24 documented as of this encounter
--- OUTSIDE RECORDS SUMMARY | 2025-05-21 09:43 | XMS_ITS | Encounter Summary ---
Author Organization [employer] ([place], [place], [place], [place], [place]) Address [address] [place] [address] Care Team Providers Care Packer Operator Automatic Name Role Phone Jonas Navas MD Primary Care Provider [phone] Marcell Uriostegui MD Primary Care Provider + [phone] Heidi Rivers APRN Primary Care Provider + [phone] Neptali Bergman MD Unavailable [phone] Encounter Details Date Type Department Care Team (Late st Contact Info) Description 03/22/2020 Transcribed Document [facility] [place] [facility] [place] [address] ProviderJennifer MD [address] [place] [address] Social History Tobacco Use Types [...] : Empathic/Engaged listening, Feelings expressed Spiritual and Denominational : Prayer shared, Spiritual/Denominational support provided LINSEY ROSALES - 03/28/2020 7:19 EST Outcomes Affect/Behavior Changed : Comforted Appreciation Expressed : Yes Thoughts, Feelings and Emotions Exp. : Yes LINSEY ROSALES - 03/28/2020 7:19 EST Electronically signed by Kolby Catalan Conversion Corncob Pipe Manufacturing Supervisor Cerner at 09/10/2022 12:49 AM CDT documented in this encounter Plan of Treatment Upcoming Encounters Date Type Department Care Team (Late st Contact Info) Description 11/12/2025 3:30 PM EDT Office Visit [facility] - [place] [address] [place] [address] Neptali Bergman MD [address] [facility] [address] [place] [address] documented as of this encounter Visit Diagnoses Not on filedocumented in this encounter Care Teams Packer Operator Automatic Relationship Specialty Start Date End Date Jonas Navas MD [address] [facility] [address] [place], [place] [id number] PCP - General Cardiothoracic Surgery 04/15/22 07/23/22 Marcell Uriostegui MD [address] [place] [address] PCP - General Adolescent Medicine 07/24/22 04/05/23 Heidi Rivers, ROMERO [address] [place] [address] PCP - General Nurse Practitioner 04/06/23 Neptali Bergman MD [address] [facility] [address] [place] [address] Hematology and Oncology 10/31/24 documented as of this encounter
--- OUTSIDE RECORDS SUMMARY | 2025-05-21 09:43 | XMS_ITS | Encounter Summary ---
Author Organization [employer] ([place], [place], [place], [place], [place]) Address [address] [place] [address] Care Team Providers Care Veneer Drier Tailer Name Role Phone Heidi Rivers APRN Primary Care Provider [phone] Neptali Bergman MD Unavailable [phone] Encounter Details Date Type Department Care Team (Latest Contact Info) Description 05/14/2025 Travel Social History Tobacco Use Types Packs/Day Years [...] Date Jeff rded Speak language other than Sudanese at home Not on file 06/04/2023 Want [...] on file documented as of this encounter Functional Status * Communicable Disease Screening Question Answer Date of Assessment Author Have you been in contact with someone who was sick? No / Unsure 05/14/2025 7:29 AM Rashmi Barber Do you have any of the following new or worsening symptoms? None of these 05/14/2025 7:29 AM ELECTRICAL CAD DESIGNER Chema Rose documented as of this encounter Plan of Treatment Upcoming Encounters Date Type Department Care Team (Late st Contact Info) Description 11/12/2025 3:30 PM EDT Office Visit [facility] - [place] [address] [place] [address] Neptali Bergman MD [address] [facility] [address] [place] [address] documented as of this encounter Visit Diagnoses Not on filedocumented in this encounter Care Teams Veneer Drier Tailer Relationship Specialty Start Date End Date Heidi Rivers, FLYER BUILDER [address] [place] [address] PCP - General Nurse Practitioner 04/06/23 Neptali Bergman MD [address] [facility] [address] [place] [address] Hematology and Oncology 10/31/24 documented as of this encounter
--- OUTSIDE RECORDS SUMMARY | 2025-05-21 09:43 | XMS_ITS | Encounter Summary ---
Author Organization [employer] ([place], [place], [place], [place], [place]) Address [address] [place] [address] Care Team Providers Care Hot Tar Roofer Name Role Phone Jonas Navas MD Primary Care Provider [phone] Marcell Uriostegui MD Primary Care Provider + [phone] Heidi Rivers APRN Primary Care Provider + [phone] Neptali Bergman MD Unavailable [phone] Encounter Details Date Type Department Care Team (Late st Contact Info) Description 03/28/2020 Transcribed Document [facility] [place] [address] [place] [address] ProviderJennifer MD [address] [place] [address] Social History Tobacco Use Types Packs/Day Years Used Date Smoking Tobacco: Never Assessed Comments Unknown Sex and Gender Information Value Date Recorded Sex Assigned at Not on file Legal Sex Female 1:09 PM CDT Gender Identity Not on file Sexual Orientation Not on file documented as of this encounter Miscellaneous Notes * Cerner Conversion Note - Jennifer ProviderMD - 03/28/2020 9:22 AM PARTS WASHER Pain Assessment Entered On: 03/28/2020 15:04 EST [...] Description 11/12/2025 3:30 PM EDT Office Visit [facility] [address] [place] [address] [address] [place] [address] [place] [address] [place] [address] [address] [place] [address] documented as of this encounter Visit Diagnoses Not on filedocumented in this encounter Care Teams Hot Tar Roofer Relationship Specialty Start Date End Date Jonas Navas MD [address] [facility] [address] [place], [place] [id number] PCP - General Cardiothoracic Surgery 04/15/22 07/23/22 Marcell Uriostegui MD [address] [place] [address] PCP - General Adolescent Medicine 07/24/22 04/05/23 Heidi Rivers APRN [address] [place] [address] PCP - General Nurse Practitioner 04/06/23 Neptali Bergman MD [address] [facility] [address] [place] [address] Hematology and Oncology 10/31/24 documented as of this encounter
--- OUTSIDE RECORDS SUMMARY | 2025-05-21 09:43 | XMS_ITS | Encounter Summary ---
Author Organization [employer] ([place], [place], [place], [place], [place]) Address [address] [place] [address] Care Team Providers Care Clinical Data Assistant Name Role Phone Jonas Navas MD Primary Care Provider [phone] Marcell Uriostegui MD Primary Care Provider + [phone] Heidi Rivers APRN Primary Care Provider + [phone] Neptali Bergman MD Unavailable [phone] Encounter Details Date Type Department Care Team (Late st Contact Info) Description 03/28/2020 Transcribed Document [facility] [place] [facility] [place] [address] ProviderJennifer MD [address] [place] [address] Social History Tobacco Use Types Packs/Day Years Used Date Smoking Tobacco: Never Assessed Comments Unknown Sex and Gender Information Value Date Recorded Sex Assigned at Not on file Legal Sex Female 1:09 PM CDT Gender Identity Not on file Sexual Orientation Not on file documented as of this encounter Miscellaneous Notes * Cerner Conversion Note - Jennifer ProviderMD - 03/28/2020 3:23 PM PROCESS CONTROL SUPERVISOR Admission History, Adult Entered On: 03/28/2020 15:25 EST Performed On: 03/28/2020 15:23 EST by ARIEL LARA LPN Advance Directive Patient has Advance Directive *Q : Yes, Advance Directive not with the patient Advance Directive Type : Living will, Medical durable power of consumer attorney (proxy) Medical Durable Power of Director Search Name : Yayo Yeh Copy Advance Directive [...] Info Legal Guardian : No Support Person/Patient Store Warehouse Associate : Yes Support Person/Pt Rep Name : Ti yeh - spouse Contact Password : [facility] Support Person/Pt Rep Contact Information : [phone] Want Family/Rep/Phys Notified of Admit : No Emergency Contact #1 : `Ti Yeh Emergency Contact #1 ` Emergency Contact #1 Relationship : ` Emergency Contact #2 : ` Emergency Contact #2 Phone Number : ` Emergency Contact #2 Relationship : ` Primary Language : Filipino Communication Barrier : None Drum Sander Setter Needed : No MARK LARACAROLYN WYLIE 03/28/2020 [...] Scale Risk Level : 25-45 Medium Risk Avalon Fall Interventions : Adequate lighting, Assistive devices [...] Smokeless Tobacco Status : Never Implant/Device Type, Superintendent Mechanical and Model : none ARIEL LARA LPN [...] Source : Measured Height Entry Format : [employer] Height, Feet : 0 ft(Converted to: 0 cm, 0 Inch) Height, Inches : 61 Inch(Converted to: 5 ft 1 Inch, 154.94 cm) Clinical Height : 154.94 cm Weight Source : Standing scale Weight Entry Format : [place] [facility] Dosing Weight : 77.91 kg Weight, Pounds : 171.4 lb Body Surface Area (BSA) : 1.77 m2 Body Mass Index : 32.5 kg/m2 (HI) [place] Body Weight : 47 kg ARIEL LARA [...] risk ARIEL LARA LPN 03/28/2020 15:23 EST [place] Suicide Severity Rating Scale (C-SSRS) CSSRS Past [...] Description 11/12/2025 3:30 PM EDT Office Visit [facility] - [place] [address] [place] [address] Neptali Bergman MD [address] [facility] [address] [place] [address] documented as of this encounter Visit Diagnoses Not on filedocumented in this encounter Care Teams Clinical Data Assistant Relationship Specialty Start Date End Date Jonas Navas MD [address] [facility] [address] [place], [place] [id number] PCP - General Cardiothoracic Surgery 04/15/22 07/23/22 Marcell Uriostegui MD [address] [place] [address] [place] [address] PCP - General Adolescent Medicine 07/24/22 04/05/23 Heidi Rivers, ROMERO [address] [place] [address] PCP - General Nurse Practitioner 04/06/23 Neptali Bergman MD [address] [facility] [address] [place] [address] Hematology and Oncology 10/31/24 documented as of this encounter
--- OUTSIDE RECORDS SUMMARY | 2025-05-21 09:43 | XMS_ITS | Encounter Summary ---
Author Organization [employer] ([place], [place], [place], [place], [place]) Address [address] [place] [address] Care Team Providers Care Manager Fleet Name Role Phone Jonas Navas MD Primary Care Provider [phone] Marcell Uriostegui MD Primary Care Provider + [phone] Heidi Rivers APRN Primary Care Provider + [phone] Neptali Bergman MD Unavailable [phone] Encounter Details Date Type Department Care Team (Late st Contact Info) Description 03/28/2020 Transcribed Document [facility] [place] [address] [place] [address] ProviderJennifer MD [address] [place] [address] Social History Tobacco Use Types Packs/Day Years Used Date Smoking Tobacco: Never Assessed Comments Unknown Sex and Gender Information Value Date Recorded Sex Assigned at Not on file Legal Sex Female 1:09 PM CDT Gender Identity Not on file Sexual Orientation Not on file documented as of this encounter Miscellaneous Notes * Cerner Conversion Note - Jennifer ProviderMD - 03/28/2020 10:32 AM DRAFTING TECHNICIAN Pain Assessment Entered On: 03/29/2020 18:57 EST Performed On: 03/29/2020 16:25 EST by Raheem Baird, RN Intervention Information: acetaminophen Performed by Raheem Baird, RN on 03/29/2020 15:25:00 EST acetaminophen,1000mg Oral,Pain Pain Assessment Pain Assessment : Follow-up assessment Pain Scale Goal : 4 Raheem Baird RN - 03/29/2020 18:57 EST documented in this encounter Plan of Treatment Upcoming Encounters Date Type Department Care Team (Late st Contact Info) Description 11/12/2025 3:30 PM EDT Office Visit [facility] - [address] [facility] [address] [place] [address] Neptali Bergman MD [address] [place] [address] [address] [place] [address] documented as of this encounter Visit Diagnoses Not on filedocumented in this encounter Care Teams Manager Fleet Relationship Specialty Start Date End Date Jonas Navas MD [address] [facility] [address] [place] [address] PCP - General Cardiothoracic Surgery 04/15/22 07/23/22 Marcell Uriostegui MD [address] [place] [address] PCP - General Adolescent Medicine 07/24/22 04/05/23 Heidi Rivers, MUNICIPAL [address] MAGISTRATE [address] [place] [address] PCP - General Nurse Practitioner 04/06/23 Neptali Bergman MD [address] [facility] [address] [place] [address] Hematology and Oncology 10/31/24 documented as of this encounter
--- OUTSIDE RECORDS SUMMARY | 2025-05-21 09:43 | XMS_ITS | Encounter Summary ---
Author Organization [employer] ([place], [place], [place], [place], [place]) Address [address] [place] [address] Care Team Providers Care Letterpress Printing Machinist Name Role Phone Jonas Navas MD Primary Care Provider [phone] Marcell Uriostegui MD Primary Care Provider + [phone] Heidi Rivers APRN Primary Care Provider + [phone] Neptali Bergman MD Unavailable [phone] Encounter Details Date Type Department Care Team (Late st Contact Info) Description 03/30/2020 Transcribed Document [facility] [place] Family Medicine [address] [place] [address] ProviderJennifer MD [address] [place] [address] Social History Tobacco Use Types Packs/Day Years Used Date Smoking Tobacco: Never Assessed Comments Unknown Sex and Gender Information Value Date Recorded Sex Assigned at Not on file Legal Sex Female 1:09 PM CDT Gender Identity Not on file Sexual Orientation Not on file documented as of this encounter Miscellaneous Notes * Cerner Conversion Note - Jennifer ProviderMD - 03/30/2020 10:56 AM CLIENT SUPPORT COORDINATOR Final Discharge Planning Entered On: 03/30/2020 10:56 EST Performed On: 03/30/2020 10:56 EST by FRANDY LOONEY RN-Property Portfolio Officer Final Discharge Planning Discharge Arrangements : Patient Post-Acute Information Patient Name: ALEJANDRINA YEH Gender: Female : 55 Age: 64 Years No Post-Acute Placement(s) Listed No Post-Acute Service(s) Listed No [place] Referral(s) Listed Follow Up Appointment Scheduled : Yes Discharge To Care Management : Home/Residential/[facility] or Self Care -01 FRANDY LOONEY RN-Property Portfolio Officer - 03/30/2020 10:56 EST Final Narrative Note Final Narrative Note : Discharged to home, agreeable. No needs verbalized at this time. FRANDY LOONEY RN-Property Portfolio Officer - 03/30/2020 10:56 EST Electronically signed by [facility] Conversion Fire Inspector Cerner at 09/10/2022 12:40 AM CDT documented in this encounter Plan of Treatment Upcoming Encounters Date Type Department Care Team (Late st Contact Info) Description 11/12/2025 3:30 PM EDT Office Visit [facility] - [place] [phone] Neptali Bergman MD [address] [place] [address] documented as of this encounter Visit Diagnoses Not on filedocumented in this encounter Care Teams Letterpress Printing Machinist Relationship Specialty Start Date End Date Jonas Navas MD [address] [facility] [address] [place], [place] [address] PCP - General Cardiothoracic Surgery 04/15/22 07/23/22 Marcell Uriostegui MD [address] [place] [address] PCP - General Adolescent Medicine 07/24/22 04/05/23 Heidi Rivers, ROMERO [address] [facility] [address] [place] [address] PCP - General Nurse Practitioner 04/06/23 Neptali Bergman MD [address] [place] [address] [address] [place] [address] Hematology and Oncology 10/31/24 documented as of this encounter
--- OUTSIDE RECORDS SUMMARY | 2025-05-21 09:43 | XMS_ITS | Encounter Summary ---
Author Organization [employer] ([place], [place], [place], [place], [place]) Address [address] [place] [address] Care Team Providers Care Correctional Food Service Supervisor Name Role Phone Jonas Navas MD Primary Care Provider [phone] Marcell Uriostegui MD Primary Care Provider + [phone] Heidi Rivers APRN Primary Care Provider + [phone] Neptali Bergman MD Unavailable [phone] Encounter Details Date Type Department Care Team (Late st Contact Info) Description 04/01/2020 Transcribed Document [facility] [place] [facility] [place] [address] ProviderJennifer MD [address] [place] [address] Social History Tobacco Use Types Packs/Day Years Used Date Smoking Tobacco: Never Assessed Comments Unknown Sex and Gender Information Value Date Recorded Sex Assigned at Not on file Legal Sex Female 1:09 PM CDT Gender Identity Not on file Sexual Orientation Not on file documented as of this encounter Miscellaneous Notes * Cerner Conversion Note - Jennifer ProviderMD - 04/01/2020 1:25 PM FOOD SERVICE COUNTER CLERK UM Authorization Entered On: 04/01/2020 13:26 EST Performed On: 04/01/2020 13:25 EST by ROSA MARIA JONES RN Primary Insurance Authorization Authorization and Policy Numbers : Insurance 1 Health Plan: [employer] Policy Number: [id number] Authorization Number: Insurance Primary Name : [facility] Policy Number: [id number] Authorization Status-Primary : Denial - admission Reference Number-Primary : pend ref #[id number] Authorized Service Begin Date-Primary : 03/28/2020 EST Authorization Comments-Primary : Per VM from [facility] denied IP admission. Called MD office and left VM for Raymond inquiring if they had attempted IP auth and if Dr. Santamaria would complete a P2P. Awaiting callback. [place] [facility] [place] Historical Authorization Comments-Primary : Comment 1: Clinical[facility] for [facility] approval (CICI DIAZ RN 03/29/2020 11:18) ROSA MARIA JONES RN - 04/01/2020 13:25 EST Electronically signed by [facility] Conversion Sales Promotion Manager Cerner at 09/10/2022 12:47 AM CDT documented in this encounter Plan of Treatment Upcoming Encounters Date Type Department Care Team (Late st Contact Info) Description 11/12/2025 3:30 PM EDT Office Visit [facility] - [address] [place] [phone] Neptali Bergman MD [address] [place] [address] [address] [place] [address] documented as of this encounter Visit Diagnoses Not on filedocumented in this encounter Care Teams Correctional Food Service Supervisor Relationship Specialty Start Date End Date Jonas Navas MD [address] [facility] [address] [place], [place] [address] PCP - General Cardiothoracic Surgery 04/15/22 07/23/22 Marcell Uriostegui MD [address] [place] [address] PCP - General Adolescent Medicine 07/24/22 04/05/23 Heidi Rivers, WHITE SOURER [address] [facility] [address] [place] [address] PCP - General Nurse Practitioner 04/06/23 Neptali Bergman MD [address] [place] [address] [address] [place] [address] Hematology and Oncology 10/31/24 documented as of this encounter
--- OUTSIDE RECORDS SUMMARY | 2025-05-21 09:43 | XMS_ITS | Encounter Summary ---
Author Organization [employer] ([place], [place], [place], [place], [place]) Address [address] [place] [address] Care Team Providers Care Manager Market Research Name Role Phone Jonas Navas MD Primary Care Provider [phone] Marcell Uriostegui MD Primary Care Provider + [phone] Heidi Rivers APRN Primary Care Provider + [phone] Neptali Bergman MD Unavailable [phone] Encounter Details Date Type Department Care Team (Late st Contact Info) Description 03/30/2020 Transcribed Document [facility] [place] [address] [place] [address] ProviderJennifer MD [address] [place] [address] Social History Tobacco Use Types Packs/Day Years Used Date Smoking Tobacco: Never Assessed Comments Unknown Sex and Gender Information Value Date Recorded Sex Assigned at Not on file Legal Sex Female 1:09 PM CDT Gender Identity Not on file Sexual Orientation Not on file documented as of this encounter Miscellaneous Notes * Cerner Conversion Note - Jennifer ProviderMD - 03/30/2020 2:00 AM PROGRESSIVE ASSEMBLER AND FITTER Service Attendant Cafeteria Details Entered On: 03/30/2020 3:22 EST Performed [...] Needs Meds Crushed/Liquid : No LINDSAY WHITE, SPIN TABLE OPERATOR - 03/30/2020 3:22 EST Electronically signed by Kolby Catalan Conversion Aeronautical Engineering Technologist Cerner at 09/10/2022 12:36 AM CDT documented in this encounter Plan of Treatment Upcoming Encounters Date Type Department Care Team (Late st Contact Info) Description 11/12/2025 3:30 PM EDT Office Visit [facility] - [facility] [address] [facility] [address] [place] [address] Neptali Bergman MD [facility] [address] [place] [address] documented as of this encounter Visit Diagnoses Not on filedocumented in this encounter Care Teams Manager Market Research Relationship Specialty Start Date End Date Jonas Navas MD [address] [facility] [address] [place] [address] PCP - General Cardiothoracic Surgery 04/15/22 07/23/22 Marcell Uriostegui MD [address] [place] [address] PCP - General Adolescent Medicine 07/24/22 04/05/23 Heidi Rivers, HAND HIDE STRETCHER [address] [place] [address] PCP - General Nurse Practitioner 04/06/23 Netpali Bergman MD [facility] [facility] [address] [place] [address] Hematology and Oncology 10/31/24 documented as of this encounter
--- OUTSIDE RECORDS SUMMARY | 2025-05-21 09:43 | XMS_ITS | Encounter Summary ---
Author Organization [employer] ([place], [place], [place], [place], [place]) Address [address] [place] [address] Care Team Providers Care Registered Nurse Maternal Child Name Role Phone Jonas Navas MD Primary Care Provider [phone] Marcell Uriostegui MD Primary Care Provider + [phone] Heidi Rivers APRN Primary Care Provider + [phone] Neptali Bergman MD Unavailable [phone] Encounter Details Date Type Department Care Team (Late st Contact Info) Description 08/09/2019 Transcribed Document [facility] [place] [facility] [place] [address] ProviderJennifer MD [address] [place] [address] Social History Tobacco Use Types Packs/Day [...] Policy Numbers : Insurance 1 Health Plan: [employer] Policy Number: [id number] Authorization Number: [id number] Insurance Primary Name : [facility] Policy Number: [id number] Authorization Status-Primary : Admit approved Auth/Referral Contact Name-Primary : [place] Reference Number-Primary : [id number] Authorization Number-Primary : [id number] Number of Days Authorized-Primary : 7 Day(s) Authorized Service Begin Date-Primary : 07/25/2019 EST Authorized Service End Date-Primary : 08/01/2019 EDT Authorization Comments-Primary : [place] approved per availity for 8 days Historical Authorization Comments-Primary : Comment 1: Discharge date and summary faxed. (Macy Costello, Systems Integration Analyst 08/03/2019 12:31) Comment 2: Faxed clinicals via [employer] on 07/30 and 08/01. (SURENDRA FRANK, Rn-Utilization Review 08/02/2019 13:11) Comment 3: [place] approved per avail[place] for 4 days inpt (NORI VALVERDE, RN-Utilization Review 07/21/2019 13:39) NORI VALVERDE RN-Utilization Review - 08/09/2019 14:03 EDT documented in this encounter Plan of Treatment Upcoming Encounters Date Type Department Care Team (Late st Contact Info) Description 11/12/2025 3:30 PM EDT Office Visit [facility] [facility] - [address] [place] [address] Neptali Bergman MD [address] [facility] [address] [place] [address] documented as of this encounter Visit Diagnoses Not on filedocumented in this encounter Care Teams Registered Nurse Maternal Child Relationship Specialty Start Date End Date Jonas Navas MD [address] [facility] [address] [place] [address] PCP - General Cardiothoracic Surgery 04/15/22 07/23/22 Marcell Uriostegui MD [address] [place] [address] PCP - General Adolescent Medicine 07/24/22 04/05/23 Heidi Rivers APRN 2017 [facility] [address] [place] [address] PCP - General Nurse Practitioner 04/06/23 Neptali Bergman MD [address] [facility] [address] [place] [address] Hematology and Oncology 10/31/24 documented as of this encounter
--- OUTSIDE RECORDS SUMMARY | 2025-05-21 09:43 | XMS_ITS | Encounter Summary ---
Author Organization [employer] ([place], [place], [place], [place], [place]) Address [address] [place] [address] Care Team Providers Care Routing Equipment Tender Name Role Phone Jonas Navas MD Primary Care Provider [phone] Marcell Uriostegui MD Primary Care Provider + [phone] Heidi Rivers APRN Primary Care Provider + [phone] Neptali Bergman MD Unavailable [phone] Encounter Details Date Type Department Care Team (Late st Contact Info) Description 03/28/2020 Transcribed Document [facility] [place] [address] [place] [address] ProviderJennifer MD [address] [place] [address] Social History Tobacco Use Types Packs/Day Years Used Date Smoking Tobacco: Never Assessed Comments Unknown Sex and Gender Information Value Date Recorded Sex Assigned at Not on file Legal Sex Female 1:09 PM CDT Gender Identity Not on file Sexual Orientation Not on file documented as of this encounter Miscellaneous Notes * Cerner Conversion Note - Jennifer ProviderMD - 03/28/2020 8:55 AM BOTTLING ATTENDANT [facility] Main OR PACU Summary Primary Physician: RICKY ROMANO MD-URO Finalized Date/Time: 03/28/20 15:57:38 Pt. Name: ALEJANDRINA YEH /Sex: 1955 Female Med Rec #: [id number] Physician: RICKY ROMANO MD-URO Financial #: [id number] Pt. Type: I Room/Bed: 4/ Admit/Disch: 03/28/20 06:42:00 - Institution: [facility] Main OR PACU I Case Times Entry 1 In PACU I 03/28/20 10:36:00 Ready for PACU 03/28/20 12:00:00 Discharge Discharge from PACU 03/28/20 14:52:00 I Last Modified By: LAURENCE CHANEY RN 03/28/20 15:06:05 [facility] Main OR PACU Acuity Entry 1 Start Time 03/28/20 12:00:00 Stop Time 03/28/20 14:52:00 Acuity Level [facility] PACU Acuity I Last Modified By: LAURENCE CHANEY RN 03/28/20 15:06:22 Finalized By: LAURENCE CHANEY RN Document Signatures Signed By: LAURENCE CHANEY RN 03/28/20 15:06 LAURENCE CHANEY RN 03/28/20 15:57 Unfinalized History Date/Time Username Reason for Unfinalizing Freetext Reason for Unfinalizing 03/28/20 15:57 ANDREW [place] Documentation Electronically signed by Hossein [facility] Conversion Senior Engineering Specialist Cerner at 09/10/2022 12:39 AM CDT documented in this encounter Plan of Treatment Upcoming Encounters Date Type Department Care Team (Late st Contact Info) Description 11/12/2025 3:30 PM EDT Office Visit [facility] - [address] [place] [address] Neptali Bergman MD [address] [facility] [address] [place] [address] documented as of this encounter Visit Diagnoses Not on filedocumented in this encounter Care Teams Routing Equipment Tender Relationship Specialty Start Date End Date Jonas Navas MD [address] [facility] [address] [place] [address] PCP - General Cardiothoracic Surgery 04/15/22 07/23/22 Marcell Uriostegui MD [address] [place] [address] PCP - General Adolescent Medicine 07/24/22 04/05/23 Heidi Rivers APRN 2017 [facility] [address] [place] [address] PCP - General Nurse Practitioner 04/06/23 Neptali Bergman MD [address] [facility] [address] [place] [address] Hematology and Oncology 10/31/24 documented as of this encounter
--- OUTSIDE RECORDS SUMMARY | 2025-05-21 09:43 | XMS_ITS | Encounter Summary ---
Author Organization [employer] ([place], [place], [place], [place], [place]) Address [address] [place] [address] Care Team Providers Care Insulator Helper Name Role Phone Jonas Navas MD Primary Care Provider [phone] Marcell Uriostegui MD Primary Care Provider + [phone] Heidi Rivers APRN Primary Care Provider + [phone] Neptali Bergman MD Unavailable [phone] Encounter Details Date Type Department Care Team (Late st Contact Info) Description 04/12/2020 Transcribed Document [facility] Family Medicine [facility] [place] [address] ProviderJennifer MD [address] [place] [address] Social History Tobacco Use Types Packs/Day Years Used Date Smoking Tobacco: Never Assessed Comments Unknown Sex and Gender Information Value Date Recorded Sex Assigned at Not on file Legal Sex Female 1:09 PM CDT Gender Identity Not on file Sexual Orientation Not on file documented as of this encounter Miscellaneous Notes * Cerner Conversion Note - Jennifer ProviderMD - 04/12/2020 1:42 PM SERVICE WORKER UM Authorization Entered On: 04/12/2020 13:42 EST Performed On: 04/12/2020 13:42 EST by ROSA MARIA JONES RN Primary Insurance Authorization Authorization and Policy Numbers : Insurance 1 Health Plan: [employer] Policy Number: [id number] Authorization Number: Insurance [facility] Policy Number: [id number] Authorization Status-Primary : Denial - admission Auth/Referral Contact Name-Primary : DC + Reference Number-Primary : [id number] Authorized Service Begin Date-Primary : 03/28/2020 EST Authorization Comments-Primary : Per VM From [facility] upheld. Sent to Appeals. Historical Authorization Comments-Primary : Comment 1: Left VM for Raymond at Dr. Santamaria office inquiring if p2p was completed. (ROSA MARIA JONES RN 04/03/2020 15:19) Comment 2: Discharge date and summary faxed. (Macy Costello, Programmable Logic Controller Assembler 04/02/2020 14:28) Comment 3: Call back from [place] with Dr Santamaria office stating she is going to setup P2P for Dr. Santamaria to complete. (ROSA MARIA JONES RN 04/01/2020 14:32) Comment 4: Per VM from [facility] denied IP admission. Called MD office and left VM for Raymond inquiring if they had attempted IP auth and if Dr. Santamaria would complete a P2P. Awaiting callback. [place] [facility] (ROSA MARIA JONES RN 04/01/2020 13:25) Comment 5: [facility] (CICI DIAZ RN 03/29/2020 11:18) ROSA MARIA JONES RN - 04/12/2020 13:42 EST documented in this encounter Plan of Treatment Upcoming Encounters Date Type Department Care Team (Late st Contact Info) Description 11/12/2025 3:30 PM EDT Office Visit [place] [facility] [address] [place] [address] Neptali Bergman MD [address] [place] [address] [place] [address] documented as of this encounter Visit Diagnoses Not on filedocumented in this encounter Care Teams Insulator Helper Relationship Specialty Start Date End Date Jonas Navas MD [address] [facility] [address] [place] [id number] PCP - General Cardiothoracic Surgery 04/15/22 07/23/22 Marcell Uriostegui MD [address] [place] [address] PCP - General Adolescent Medicine 07/24/22 04/05/23 Heidi Rivers APRN 2017 [facility] [address] [place] [address] PCP - General Nurse Practitioner 04/06/23 Neptali Bergman MD [address] [facility] [address] [place] [address] Hematology and Oncology 10/31/24 documented as of this encounter
--- OUTSIDE RECORDS SUMMARY | 2025-05-21 09:43 | XMS_ITS | Encounter Summary ---
Author Organization [employer] ([place], [place], [place], [place], [place]) Address [address] [place] [address] Care Team Providers Care Commercial Leasing Agent Name Role Phone Jonas Navas MD Primary Care Provider [phone] Marcell Uriostegui MD Primary Care Provider + [phone] Heidi Rivers APRN Primary Care Provider + [phone] Lu Bergman MD Unavailable [phone] Encounter Details Date Type Department Care Team (Late st Contact Info) Description 03/28/2020 Transcribed Document [facility] [place] [address] [place] [address] ProviderJennifer MD [address] [place] [address] Social History Tobacco Use Types Packs/Day [...] Jennifer Arroyo MD - 03/28/2020 10:30 AM RECONCILIATION MACHINE OPERATOR Consult Phone Call Documentation Entered On: 03/28/2020 16:29 EST Performed On: 03/28/2020 16:27 EST by Dilia Combs RN Phone Call for Consults Consult Phone Call/Page Attempt : First call Consult Reason : lung cancer Physician Requesting Consult : IRCKY ROMANO MD-URO Physician Requested for Consult : BERGMAN, LU T, MD-ONC Provider Service Notified Name : Medical oncology Physician Covering for Consult : LU BERGMAN MD-ONC Date and Time Call Returned : 03/28/2020 16:27 EST Dilia Combs RN - 03/28/2020 16:29 EST Electronically signed by Hossein [facility] Conversion Dock Manager Cerner at 09/10/2022 12:40 AM CDT documented in this encounter Plan of Treatment Upcoming Encounters Date Type Department Care Team (Late st Contact Info) Description 11/12/2025 3:30 PM EDT Office Visit [place] [facility] - [place] [address] [place] [address] Lu Bergman MD [address] [facility] [address] [place] [address] documented as of this encounter Visit Diagnoses Not on filedocumented in this encounter Care Teams Commercial Leasing Agent Relationship Specialty Start Date End Date Jonas Navas MD [address] [facility] [address] [place], [place] [address] PCP - General Cardiothoracic Surgery 04/15/22 07/23/22 Marcell Uriostegui MD [address] [place] [address] PCP - General Adolescent Medicine 07/24/22 04/05/23 Heidi Rivers, SPEECH AND HEARING DIRECTOR [address] [place] [address] PCP - General Nurse Practitioner 04/06/23 Lu Bergman MD [address] [facility] [address] [place] [address] Hematology and Oncology 10/31/24 documented as of this encounter
--- OUTSIDE RECORDS SUMMARY | 2025-05-21 09:43 | XMS_ITS | Encounter Summary ---
Author Organization [employer] ([place], [place], [place], [place], [place]) Address [address] [place] [address] Care Team Providers Care Central Supply Aide Name Role Phone Jonas Navas MD Primary Care Provider [phone] Marcell Uriostegui MD Primary Care Provider + [phone] Heidi Rivers APRN Primary Care Provider + [phone] Neptali Bergman MD Unavailable [phone] Encounter Details Date Type Department Care Team (Late st Contact Info) Description 03/29/2020 Transcribed Document [facility] [place] [address] [place] [address] ProviderJennifer MD [address] [place] [address] Social History Tobacco Use Types Packs/Day [...] Jennifer Arroyo MD - 03/29/2020 7:52 AM DIE FILER Patient Education Materials Follows: Adrenalectomy, Care After [...] and water are not available, use hand crane hoist or lift operator. ? Change your dressing as told [...] to take sponge baths. Medicines ??? Take egdd-cjt-gxdjerz and prescription medicines only as told by [...] 08/25/2011 Document Revised: 01/31/2019 Document Reviewed: 01/31/2019 [email or web address] Patient Education ? 2020 [facility]. Adrenalectomy Adrenal glands are organs that make [...] including vitamins, herbs, eye drops, creams, and nprl-jxh-qehklzo medicines. ??? Any problems you or family [...] are cortisol, aldosterone, or adrenaline. ??? Taking nogl-jbo-aksseba medicines, vitamins, herbs, and supplements. General instructions [...] Reviewed: 01/31/2019 Elsevier Patient Education ? 2020 [facility]. documented in this encounter Plan of Treatment Upcoming Encounters Date Type Department Care Team (Late st Contact Info) Description 11/12/2025 3:30 PM EDT Office Visit [place] [facility] - [address] [place] [address] Neptali Bergman MD [address] [place] [address] [address] [place] [address] documented as of this encounter Visit Diagnoses Not on filedocumented in this encounter Care Teams Central Supply Aide Relationship Specialty Start Date End Date Jonas Navas MD [address] [facility] [address] [place], [place] [address] PCP - General Cardiothoracic Surgery 04/15/22 07/23/22 Marcell Uriostegui MD [address] [place] [address] PCP - General Adolescent Medicine 07/24/22 04/05/23 Heidi Rivers APRN [address] [facility] [address] [place] [address] PCP - General Nurse Practitioner 04/06/23 Neptali Bergman MD [address] [facility] [address] [place] [address] Hematology and Oncology 10/31/24 documented as of this encounter
--- OUTSIDE RECORDS SUMMARY | 2025-05-21 09:43 | XMS_ITS | Encounter Summary ---
Author Organization [employer] ([place], [place], [place], [place], [place]) Address [address] [place] [address] Care Team Providers Care Tank Furnace Operator Name Role Phone Jonas Navas MD Primary Care Provider [phone] Marcell Uriostegui MD Primary Care Provider + [phone] Heidi Rivers APRN Primary Care Provider + [phone] Neptali Bergman MD Unavailable [phone] Encounter Details Date Type Department Care Team (Late st Contact Info) Description 03/28/2020 Transcribed Document [facility] [place] [address] [place] [address] ProviderJennifer MD [address] [place] [address] Social History Tobacco Use Types Packs/Day Years Used Date Smoking Tobacco: Never Assessed Comments Unknown Sex and Gender Information Value Date Recorded Sex Assigned at Not on file Legal Sex Female 1:09 PM CDT Gender Identity Not on file Sexual Orientation Not on file documented as of this encounter Miscellaneous Notes * [employer]ner Conversion Note - Jennifer ProviderMD - 03/28/2020 6:20 AM WELFARE INVESTIGATOR Patient: ALEJANDRINA YEH Age: 64 years Sex: [...] Refill(s) fluticasone 50 mcg/inh nasal spray: 2 [place], Nasal, Daily, PRN: Congestion, 0 Refill(s) hydroCHLOROthiazide-lisinopril [...] Bedtime fluticasone 50 mcg/inh nasal spray 2 [place], PRN, Nasal, Daily hydroCHLOROthiazide-lisinopril 25 mg-20 mg [...] Sleep apnea no c-pap / SNOMED CT 620249531 / Confirmed Sinusitis / SNOMED CT 36171999 / Confirmed Migraine / SNOMED CT 33657546 / Confirmed Hyperlipidemia / SNOMED CT 23270001 / Confirmed History of obstructive sleep apnea / IMO 57493536 / Confirmed High blood pressure / SNOMED CT 31173842 / Confirmed Hiatal hernia / SNOMED CT 528366469 / Confirmed H/O: TIA / SNOMED CT 734615892 / Confirmed GERD - Gastro-esophageal reflux disease / SNOMED CT 8654074664 / Confirmed Shortness of breath / SNOMED CT 463552304 / Confirmed Diverticulosis / SNOMED CT 1566613085 / Confirmed Diabetes mellitus type II / SNOMED CT 52291665 / Confirmed Coronary artery disease s/p ME / SNOMED CT 5854116553 / Confirmed Claustrophobia / SNOMED CT 49116459 / Confirmed 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 / SNOMED CT 98790249 / Confirmed CA - Lung cancer adenocarcinoma / SNOMED CT 6134958981 / Confirmed Back pain / SNOMED CT 2551165104 / Confirmed Arthritis / SNOMED CT 0159215 / Confirmed, Active Problems (18) Arthritis Back [...] Lobectomy of upper lobe of left lung ([id number]) on 07/25/2019 at 63 Years. lung biopsy on 07/10/2019 at 63 Years. Colonoscopy ([id number]) in the month of 10/2018 at 62 Years. Appendectomy ([id number]). cardiac cath with angioplasty. Social History Social [...] of back, LLE weakness. Integumentary: Warm, Dry, [place]. Neurologic: Alert, Oriented. Psychiatric: Cooperative, Appropriate mood [...] Description 11/12/2025 3:30 PM EDT Office Visit [facility] - [address] [place] [address] Neptali Bergman MD [address] [facility] [address] [place] [address] documented as of this encounter Visit Diagnoses Not on filedocumented in this encounter Care Teams Tank Furnace Operator Relationship Specialty Start Date End Date Jonas Navas MD 1401 [facility] [address] [place], [place] [address] PCP - General Cardiothoracic Surgery 04/15/22 07/23/22 Marcell Uriostegui MD [address] [place] [address] [place] [address] PCP - General Adolescent Medicine 07/24/22 04/05/23 Heidi Rivers, MANAGER BEHAVIORAL 2017 [facility] [address] [place] [address] PCP - General Nurse Practitioner 04/06/23 Neptali Bergman MD [address] [facility] [address] [place] [address] Hematology and Oncology 10/31/24 documented as of this encounter
--- OUTSIDE RECORDS SUMMARY | 2025-05-21 09:43 | XMS_ITS | Encounter Summary ---
Author Organization [employer] ([place], [place], [place], [place], [place]) Address [address] [place] [address] Care Team Providers Care Fish Egg Packer Name Role Phone Jonas Navas MD Primary Care Provider [phone] Marcell Uriostegui MD Primary Care Provider + [phone] Heidi Rivers APRN Primary Care Provider + [phone] Neptali Bergman MD Unavailable [phone] Encounter Details Date Type Department Care Team (Late st Contact Info) Description 03/30/2020 Transcribed Document [facility] [place] Medicine [address] [place] [address] ProviderJennifer MD [address] [place] [address] Social History Tobacco Use Types Packs/Day Years Used Date Smoking Tobacco: Never Assessed Comments Unknown Sex and Gender Information Value Date Recorded Sex Assigned at Not on file Legal Sex Female 1:09 PM CDT Gender Identity Not on file Sexual Orientation Not on file documented as of this encounter Miscellaneous Notes * Cerner Conversion Note - Jennifer ProviderMD - 03/30/2020 11:51 AM DRAG DOWN Nursing Discharge Summary Entered On: 03/30/2020 11:55 EST Performed On: 03/30/2020 11:51 EST by Raheem Baird manager internship Documentation Discharge Date/Time : 03/30/2020 12:15 EST Patient Disposition, General : Discharge Discharge To : Home with ambulatory/outpatient follow-up Mode Of Departure, General Discharge : Private vehicle Personal Belongings With Patient : Yes Prescriptions Given to Patient : Yes Number of Prescriptions Given : 2 Raheem Baird RN - 03/30/2020 11:51 EST documented in this encounter Plan of Treatment Upcoming Encounters Date Type Department Care Team (Late st Contact Info) Description 11/12/2025 3:30 PM EDT Office Visit [place] [facility] - [facility] [address] [place] [address] Neptali Bergman MD [facility] [address] [place] [address] documented as of this encounter Visit Diagnoses Not on filedocumented in this encounter Care Teams Fish Egg Packer Relationship Specialty Start Date End Date Jonas Navas MD [address] [facility] [address] [place] [address] PCP - General Cardiothoracic Surgery 04/15/22 07/23/22 Marcell Uriostegui MD [address] [place] [address] [place] [address] PCP - General Adolescent Medicine 07/24/22 04/05/23 Heidi Rivers, LINE PRODUCER [address] [place] [address] PCP - General Nurse Practitioner 04/06/23 Neptali Bergman MD [facility] [address] [place] [address] Hematology and Oncology 10/31/24 documented as of this encounter
--- OUTSIDE RECORDS SUMMARY | 2025-05-21 09:43 | XMS_ITS | Encounter Summary ---
Author Organization [employer] ([place], [place], [place], [place], [place]) Address [address] [place] [address] Care Team Providers Care Neonatal Pediatric Nurse Name Role Phone Jonas Navas MD Primary Care Provider [phone] Marcell Uriostegui MD Primary Care Provider + [phone] Heidi Rivers APRN Primary Care Provider + [phone] Neptali Bergman MD Unavailable [phone] Encounter Details Date Type Department Care Team (Late st Contact Info) Description 08/03/2019 Transcribed Document [facility] [place] Family Medicine [facility] [place] [address] ProviderJennifer MD [address] [place] [address] Social History Tobacco Use Types Packs/Day [...] On: 08/03/2019 12:31 EDT by Macy Costello, Streetcar Conductor Primary Insurance Authorization Authorization and Policy Numbers : Insurance 1 Health Plan: ANTH[employer]PO Policy Number: [id number] Authorization Number: [id number] Insurance [facility] : [facility] Policy Number: [id number] Authorization Status-Primary : Awaiting callback Auth/Referral Contact Name-Primary : DC Authorization Number-Primary : [id number] Number of Days Authorized-Primary : 3 Day(s) Authorized Service Begin Date-Primary : 07/25/2019 EST Authorized Service End Date-Primary : 07/28/2019 EST Authorization Comments-Primary : Discharge date and summary faxed. Historical Authorization Comments-Primary : Comment 1: Faxed clinicals via [employer] on 07/30 and 08/01. (USRENDRA FRANK, Rn-Utilization Review 08/02/2019 13:11) Comment 2: [employer] approved per availity for 4 days inpt (NORI VALVERDE, RN-Utilization Review 07/21/2019 13:39) Macy Costello, Streetcar Conductor - 08/03/2019 12:31 EDT Electronically signed by Hossein [facility] Conversion Conference Center Manager Cerner at 09/10/2022 12:31 AM CDT documented in this encounter Plan of Treatment Upcoming Encounters Date Type Department Care Team (Late st Contact Info) Description 11/12/2025 3:30 PM EDT Office Visit [place] [facility] - [facility] [address] [facility] [address] [place] [phone] Neptali Bergman MD [address] [facility] [address] [place] [address] documented as of this encounter Visit Diagnoses Not on filedocumented in this encounter Care Teams Neonatal Pediatric Nurse Relationship Specialty Start Date End Date Jonas Navas MD [address] [facility] [address] [place], [place] [id number] PCP - General Cardiothoracic Surgery 04/15/22 07/23/22 Marcell Uriostegui MD [address] [place] [address] [place] [address] PCP - General Adolescent Medicine 07/24/22 04/05/23 Heidi Rivers, ROMERO [address] [facility] [address] [place] [address] PCP - General Nurse Practitioner 04/06/23 Neptali Bergman MD [address] [address] Hematology and Oncology 10/31/24 documented as of this encounter
--- OUTSIDE RECORDS SUMMARY | 2025-05-21 09:43 | XMS_ITS | Encounter Summary ---
Author Organization [employer] ([place], [place], [place], [place], [place]) Address [address] [place] [address] Care Team Providers Care Harvest Worker Field Crop Name Role Phone Jonas Navas MD Primary Care Provider [phone] Marcell Uriostegui MD Primary Care Provider + [phone] Heidi Rivers APRN Primary Care Provider + [phone] Neptali Bergman MD Unavailable [phone] Encounter Details Date Type Department Care Team (Late st Contact Info) Description 03/30/2020 Transcribed Document [facility] [facility] [place] [address] ProviderJennifer MD [address] [place] [address] Social History Tobacco Use Types Packs/Day [...] Jennifer Arroyo MD - 03/30/2020 11:55 AM SAND TECHNICIAN [facility] [place] [address] ALEJANDRINA YEH :1955 Visit Time:03/28/2020 Your Visit Summary Your Care Team Admitting Physician - RICKY ROMANO MD-URO Attending Physician - RICKY ROMANO MD-URO Referring Physician - RICKY ROMANO MD-URO Your Diagnosis Coronary artery disease s/p CO Adrenal mass, Other specified disorders of adrenal [...] Ins Card, Photo ID, Ins Co-pay Where: [address] [place] [address] [place] [address]- Medications What How Much When Instructions Next Dose acetaminophen-hydrocodone ([place] 7.5 mg-325 mg oral tablet) 1 Tablet(s) [...] (fluticasone 50 mcg/ inh nasal spray) 2 [place](s) Nasal Every Day as needed for Congestion [...] and water are not available, use hand university lecturer. ? Change your dressing as told by [...] to take sponge baths. Medicines ??? Take bmmp-ans-uqchswq and prescription medicines only as told by [...] 08/25/2011 Document Revised: 01/31/2019 Document Reviewed: 01/31/2019 [employer] Patient Education ?? 2020 [employer]. Adrenalectomy Adrenal glands are organs that make [...] including vitamins, herbs, eye drops, creams, and jjps-htw-krwfijh medicines. ??? Any problems you or family [...] are cortisol, aldosterone, or adrenaline. ??? Taking nezl-eiy-rgkpanp medicines, vitamins, herbs, and supplements. General instructions [...] Reviewed: 01/31/2019 Elsevier Patient Education ?? 2020 [employer] Emergency Awareness and Preventative Care STROKE [...] Assistance with quitting is available by contacting 8-017-QSBPTradeoNOW. This is a free resource providing counseling, support, and referral. Or you may contact your personal physician. [place] Suicide Prevention Lifeline: The National Suicide Prevention [...] was given the opportunity to ask questions. Patient/Special Forces Communications Sergeant Name: Patient/Special Forces Communications Sergeant Signature: Relationship to Patient: Clinician/Hospital Special Forces Communications Sergeant Signature: Date: documented in this encounter Plan of Treatment Upcoming Encounters Date Type Department Care Team (Late st Contact Info) Description 11/12/2025 3:30 PM EDT Office Visit [place] [facility] - [place] [address] [place] [phone] Neptali Bergman MD [address] [facility] [address] [place] [address] documented as of this encounter Visit Diagnoses Not on filedocumented in this encounter Care Teams Harvest Worker Field Crop Relationship Specialty Start Date End Date Jonas Navas MD [address] [facility] [address] [place] [address] PCP - General Cardiothoracic Surgery 04/15/22 07/23/22 Marcell Uriostegui MD [address] [facility] [address] [place] [address] PCP - General Adolescent Medicine 07/24/22 04/05/23 Heidi Rivers APRN [address] [facility] [address] [place] [address] PCP - General Nurse Practitioner 04/06/23 Neptali Bergman MD [address] [facility] [address] [place] [address] Hematology and Oncology 10/31/24 documented as of this encounter
--- OUTSIDE RECORDS SUMMARY | 2025-05-21 09:43 | XMS_ITS | Encounter Summary ---
Author Organization [employer] ([place], [place], [place], [place], [place]) Address [address] [place] [address] Care Team Providers Care Button Maker Name Role Phone Jonas Navas MD Primary Care Provider [phone] Marcell Uriostegui MD Primary Care Provider + [phone] Heidi Rivers APRN Primary Care Provider + [phone] Neptali Bergman MD Unavailable Encounter Details Date Type Department Care Team (Late st Contact Info) Description 03/29/2020 Transcribed Document [facility] [place] [address] ProviderJennifer MD [address] [place] [address] Social History Tobacco Use Types Packs/Day Years Used Date Smoking Tobacco: Never Assessed Comments Unknown Sex and Gender Information Value Date Recorded Sex Assigned at Not on file Legal Sex Female 1:09 PM CDT Gender Identity Not on file Sexual Orientation Not on file documented as of this encounter Miscellaneous Notes * Cerner Conversion Note - Jennifer ProviderMD - 03/29/2020 11:18 AM BLENDING SUPERVISOR UM Authorization Entered On: 03/29/2020 11:23 EST Performed On: 03/29/2020 11:18 EST by CICI DIAZ RN Primary Insurance Authorization Authorization and Policy Numbers : Insurance 1 Health Plan: ANTHEM [employer]PO Policy Number: [id number] Authorization Number: Insurance Primary Name : [facility] Policy Number: [id number] Authorization Status-Primary : Awaiting callback Authorized Service Begin Date-Primary : 03/28/2020 EST Authorization Comments-Primary : Clinicals submitted via [employer] for IP approval Historical Authorization Comments-Primary : No Authorization Comments Found CICI DIAZ, RN - 03/29/2020 11:18 EST documented in this encounter Plan of Treatment Upcoming Encounters Date Type Department Care Team (Late st Contact Info) Description 11/12/2025 3:30 PM EDT Office Visit [place] [facility] - [place] [address] [facility] [address] [place] [address] Neptali Bergman MD [address] [facility] [address] [place] [address] documented as of this encounter Visit Diagnoses Not on filedocumented in this encounter Care Teams Button Maker Relationship Specialty Start Date End Date Jonas Navas MD [address] [facility] [address] [place], [place] [id number] PCP - General Cardiothoracic Surgery 04/15/22 07/23/22 Marcell Uriostegui MD [address] [place] [address] [place] [address] PCP - General Adolescent Medicine 07/24/22 04/05/23 Heidi Rivers, NE[facility]HB[facility]HOOD [facility] DIRECTOR [address] [place] [address] PCP - General Nurse Practitioner 04/06/23 Neptali Bergman MD [address] [facility] [address] [place] [address] Hematology and Oncology 10/31/24 documented as of this encounter
--- OUTSIDE RECORDS SUMMARY | 2025-05-21 09:43 | XMS_ITS | Encounter Summary ---
Author Organization [employer] ([place], [place], [place], [place], [place]) Address [address] [place] [address] Care Team Providers Care Experimental Box Tester Name Role Phone Jonas Navas MD Primary Care Provider [phone] Marcell Uriostegui MD Primary Care Provider + [phone] Heidi Rivers APRN Primary Care Provider + [phone] Neptali Bergman MD Unavailable [phone] Encounter Details Date Type Department Care Team (Late st Contact Info) Description 03/28/2020 Transcribed Document [facility] [place] Family Medicine [address] [place] [address] ProviderJennifer MD [address] [place] [address] Social History Tobacco Use Types Packs/Day Years Used Date Smoking Tobacco: Never Assessed Comments Unknown Sex and Gender Information Value Date Recorded Sex Assigned at Not on file Legal Sex Female 1:09 PM CDT Gender Identity Not on file Sexual Orientation Not on file documented as of this encounter Miscellaneous Notes * Cerner Conversion Note - Historical ProviderMD - 03/28/2020 3:37 PM SPORTS FITNESS AND WELLNESS DIRECTOR Spiritual Care Short Form Entered On: 03/28/2020 16:26 EST Performed On: 03/28/2020 15:37 EST by LINSEY ROSALES General Information, Spiritual Care Spiritual Care Referred by : Patient Intervention/Comment/Summary Points : Responded to request for food voucher; Gave one food voucher; Provided pastoral prayer upon request; Ms. Yeh and expressed gratitude LINSEY ROSALES - 03/28/2020 16:25 EST Electronically signed by Hossein, [facility] Conversion Insulation Machine Operator Cerner at 09/10/2022 12:33 AM CDT documented in this encounter Plan of Treatment Upcoming Encounters Date Type Department Care Team (Late st Contact Info) Description 11/12/2025 3:30 PM EDT Office Visit [place] [facility] - [facility] [address] [place] [address] Neptali Bergman MD [address] [place] [address] [address] [place] [address] documented as of this encounter Visit Diagnoses Not on filedocumented in this encounter Care Teams Experimental Box Tester Relationship Specialty Start Date End Date Jonas Navas MD [address] [facility] [address] [place] [address] PCP - General Cardiothoracic Surgery 04/15/22 07/23/22 Marcell Uriostegui MD [address] [place] [address] [place] [address] PCP - General Adolescent Medicine 07/24/22 04/05/23 Heidi Rivers, BOLT MAN [address] [place] [address] PCP - General Nurse Practitioner 04/06/23 Neptali Bergman MD [address] [facility] [address] [place] [address] Hematology and Oncology 10/31/24 documented as of this encounter
--- OUTSIDE RECORDS SUMMARY | 2025-05-21 09:43 | XMS_ITS | Encounter Summary ---
Author Organization [employer] ([place], [place], [place], [place], [place]) Address [address] [place] [address] Care Team Providers Care Securities Trader Name Role Phone Jonas Navas MD Primary Care Provider [phone] Marcell Uriostegui MD Primary Care Provider + [phone] Heidi Rivers APRN Primary Care Provider + [phone] Neptali Bergman MD Unavailable [phone] Encounter Details Date Type Department Care Team (Late st Contact Info) Description 04/03/2020 Transcribed Document [facility] [place] [facility] [place] [address] ProviderJennifer MD [address] [place] [address] Social History Tobacco Use Types Packs/Day Years Used Date Smoking Tobacco: Never Assessed Comments Unknown Sex and Gender Information Value Date Recorded Sex Assigned at Not on file Legal Sex Female 1:09 PM CDT Gender Identity Not on file Sexual Orientation Not on file documented as of this encounter Miscellaneous Notes * Cerner Conversion Note - Jennifer ProviderMD - 04/03/2020 3:19 PM SENIOR NET ARCHITECT UM Authorization Entered On: 04/03/2020 15:20 EST Performed On: 04/03/2020 15:19 EST by ROSA MARIA JONES RN Primary Insurance Authorization Authorization and Policy Numbers : Insurance 1 Health Plan: ANTHEM [employer]PO Policy Number: [id number] Authorization Number: Insurance Primary [facility] : [facility] Policy Number: [id number] Authorization Status-Primary : Denial - admission Auth/Referral Contact Name-Primary : DC + Reference Number-Primary : [id number] Authorized Service Begin Date-Primary : 03/28/2020 EST Authorization Comments-Primary : Left VM for Raymond at Dr. Santamaria office inquiring if p2p was completed. Historical Authorization Comments-Primary : Comment 1: Discharge date and summary faxed. (Macy Costello, Maintenance Apprentice 04/02/2020 14:28) Comment 2: Call back from [...] complete a P2P. Awaiting callback. Emailed to [facility]. (ROSA MARIA JONES RN 04/01/2020 13:25) Comment 4: Clinicals submitted via [facility] for IP approval (CICI DIAZ RN 03/29/2020 11:18) ROSA MARIA JONES RN - 04/03/2020 15:19 EST Electronically signed by Hossein [facility] Conversion Customs Entry Clerk Cerner at 09/10/2022 12:41 AM CDT documented in this encounter Plan of Treatment Upcoming Encounters Date Type Department Care Team (Late st Contact Info) Description 11/12/2025 3:30 PM EDT Office Visit [place] [facility] - [address] [address] Neptali Bergman MD [address] [place] [address] [address] [place] [address] documented as of this encounter Visit Diagnoses Not on filedocumented in this encounter Care Teams Securities Trader Relationship Specialty Start Date End Date Jonas Navas MD [address] [facility] [address] [place] [address] PCP - General Cardiothoracic Surgery 04/15/22 07/23/22 Marcell Uriostegui MD [address] [place] [address] [place] [address] PCP - General Adolescent Medicine 07/24/22 04/05/23 Heidi Rivers, WHITE SUGAR PAN TANK OPERATOR [address] [facility] [address] [place] [address] PCP - General Nurse Practitioner 04/06/23 Neptali Bergman MD [address] [facility] [address] [place] [address] Hematology and Oncology 10/31/24 documented as of this encounter
--- OUTSIDE RECORDS SUMMARY | 2025-05-21 09:43 | XMS_ITS | Encounter Summary ---
Author Organization [employer] ([place], [place], [place], [place], [place]) Address [address] [place] [address] Care Team Providers Care Two Way Radio Technician Name Role Phone Jonas Navas MD Primary Care Provider [phone] Marcell Uriostegui MD Primary Care Provider + [phone] Heidi Rivers APRN Primary Care Provider + [phone] Neptali Bergman MD Unavailable [phone] Encounter Details Date Type Department Care Team (Late st Contact Info) Description 03/22/2020 Transcribed Document [facility] Family Medicine [facility] [place] [address] ProviderJennifer MD [address] [place] [address] Social History Tobacco Use Types Packs/Day [...] 03/22/2020 14:19 EDT by Yessy Wilson, Nurse Flare Maker Vital Measurements Temperature Source : Temporal artery [...] Source : Measured Height Entry Format : Mcgrath Height, Feet : 0 ft(Converted to: 0 cm, 0 Inch) Height, Inches : 61 Inch(Converted to: 5 ft 1 Inch, 154.94 cm) Clinical Height : 154.94 cm Weight Source : Standing scale Weight Entry Format : Mcgrath Clinical Dosing Weight : 77.91 kg Weight, Pounds : 171.4 lb Body Surface Area (BSA) : 1.77 m2 Body Mass Index : 32.5 kg/m2 (HI) [place] Body Weight : 47 kg Heidi Zamora Rn - 03/26/2020 10:05 EST Health Histories Smoking Status : Former smoker, quit more than 30 days ago Smokeless Tobacco Status : Never Implant/Device Type, Hotel Housekeeper and Model : none Yessy Wilson, Nurse Flare Maker - 03/22/2020 14:19 EDT Social History (As [...] Tuberculosis Symptoms : None Yessy Wilson Nurse Flare Maker - 03/22/2020 14:19 EDT COVID19 PreProcedure Screening Date of COVID-19 test known? : Yes Date of COVID-19 Test : 03/26/2020 EST Exposed to COVID19 symptoms since test? : Yes ALXEUS LINN RN - 03/28/2020 6:24 EST Is this an Emergent or Add on Procedure? : No Yessy Wilson Nurse Flare Maker - 03/22/2020 14:19 EDT Anesthesia/Transfusion History Family History of Anesthesia Reaction : No prior transfusion(s) Blood Transfusion Acceptable to Patient : Yes Transfusion History : Prior anesthesia without reaction Family History of Anesthesia Reaction : None Yessy Wilson Nurse Flare Maker - 03/22/2020 14:19 EDT Functional Assessment Functional ADL Evaluation Index EBN Bathing : Independent (2) Dressing : Independent (2) Toileting : Independent (2) Transferring Bed or Chair : Independent (2) Continence : Independent (2) Feeding : Independent (2) Yessy Wilson Nurse Flare Maker - 03/22/2020 14:19 EDT ADL Index Score : 12 Yessy Wilson Nurse Flare Maker - 03/22/2020 14:19 EDT Advance Directive Patient has Advance Directive *Q : Yes, Advance Directive not with the patient Advance Directive Type : Living will, Medical durable power of assistant county attorney (proxy) Medical Durable Power of Editor At Large Name : Yayo Yeh Yessy Wilson Nurse Flare Maker - 03/22/2020 14:19 EDT Spiritual/Cultural Needs Any Spiritual/Cultural Needs or Requests : Yes Spiritual/Cultural Needs Comment : morning of surgery Spiritual/Cultural Needs Comment : morning of surgery Yessy Wilson Nurse Flare Maker - 03/22/2020 14:19 EDT [place] Suicide Severity Rating Scale (C-SSRS) CSSRS Past Month Wish to be : No CSSRS Past Month Suicidal Thoughts : No CSSRS Lifetime Suicide Behavior : No Suicide Severity Rating Score : 0 Suicide Severity Rating : No Additional Care Required at this time Yessy Wilson Nurse Flare Maker - 03/22/2020 14:19 EDT Psychosocial History Currently in Unsafe Situation : No Yessy Wilson Nurse Flare Maker - 03/22/2020 14:19 EDT General Info Legal Guardian : No Support Person/Patient Hose Mender : Yes Support Person/Pt Rep Name : Ti yeh - spouse Contact Password : [facility] Support Person/Pt Rep Contact Information : [phone] Want Family/Rep/Phys Notified of Admit : No Yessy Wilson Nurse Flare Maker - 03/22/2020 14:19 EDT Emergency Contact #1 : `Ti Yeh Emergency Contact #1 ` Emergency Contact #1 Relationship : ` Heidi Zamora Rn - 03/26/2020 10:05 EST Emergency Contact #2 : ` Emergency Contact #2 Phone Number : ` Emergency Contact #2 Relationship : ` Primary Language : Guyanese Communication Barrier : None Valet Attendant Needed : No Yessy Wilson Nurse Flare Maker - 03/22/2020 14:19 EDT Quinten Scale Quinten Sensory Perception : No impairment Quinten Moisture : Rarely moist Quinten Activity : Walks occasionally Quinten Mobility : No limitation Quinten Nutrition : Adequate Quinten Friction and Shear : No apparent problem Quinten Score : 21 Yessy Wilson Nurse Flare Maker - 03/22/2020 14:19 EDT Sleep Apnea Risk Assmt BiPAP/CPAP Used at Home : No Reason BiPAP/CPAP Not Used at Home : Claustrophobia BiPAP/CPAP Ordered for Home Use : Yes Heidi Zamora Rn - 03/26/2020 10:05 EST Hx of Obstructive Sleep Apnea Diagnosis : Yes Age over 50 Years Old : Yes Gender Male : No Yessy Wilson Nurse Flare Maker - 03/22/2020 14:19 EDT documented in this encounter Plan of Treatment Upcoming Encounters Date Type Department Care Team (Late st Contact Info) Description 11/12/2025 3:30 PM EDT Office Visit [place] [facility] - [place] [address] [facility] [address] [place] [address] Neptali Bergman MD [address] [facility] [address] [place] [address] documented as of this encounter Visit Diagnoses Not on filedocumented in this encounter Care Teams Two Way Radio Technician Relationship Specialty Start Date End Date Jonas Navas MD [address] [facility] [address] [place] [address] PCP - General Cardiothoracic Surgery 04/15/22 07/23/22 Marcell Uriostegui MD [address] [facility] [address] [place] [address] PCP - General Adolescent Medicine 07/24/22 04/05/23 Heidi Rivers, BANK OFFICER [address] [place] [address] PCP - General Nurse Practitioner 04/06/23 Neptali Bergman MD [address] [facility] [address] [place] [address] Hematology and Oncology 10/31/24 documented as of this encounter
--- OUTSIDE RECORDS SUMMARY | 2025-05-21 09:43 | XMS_ITS | Encounter Summary ---
Author Organization [employer] ([place], [place], [place], [place], [place]) Address [address] [place] [address] Care Team Providers Care Temple Meat Cutter Name Role Phone Jonas Navas MD Primary Care Provider [phone] Marcell Uriostegui MD Primary Care Provider + [phone] Heidi Rivers APRN Primary Care Provider + [phone] Neptali Bergman MD Unavailable [phone] Encounter Details Date Type Department Care Team (Late st Contact Info) Description 03/30/2020 Transcribed Document [facility] [place] Medicine [facility] [place] [address] ProviderJennifer MD [address] [place] [address] Social History Tobacco Use Types Packs/Day Years Used Date Smoking Tobacco: Never Assessed Comments Unknown Sex and Gender Information Value Date Recorded Sex Assigned at Not on file Legal Sex Female 1:09 PM CDT Gender Identity Not on file Sexual Orientation Not on file documented as of this encounter Miscellaneous Notes * Cerner Conversion Note - Jennifer ProviderMD - 03/30/2020 5:00 AM SALVAGE DIVER Chart Check - Review Order Profile Entered On: 03/30/2020 3:23 EST Performed On: 03/30/2020 5:00 EST by LINDSAY WHITE LPN Chart Check Powerplans Initiated/Discontinued as Appropriate : Yes All Active Orders Reviewed : Yes LINDSAY WHITE LPN - 03/30/2020 3:23 EST Electronically signed by Hossein [facility] Conversion Infantry Indirect Fire Crewmember Cerner at 09/10/2022 12:37 AM CDT documented in this encounter Plan of Treatment Upcoming Encounters Date Type Department Care Team (Late st Contact Info) Description 11/12/2025 3:30 PM EDT Office Visit [facility] - [place] [address] [place] [phone] Neptali Bergman MD [address] [facility] [address] [place] [address] documented as of this encounter Visit Diagnoses Not on filedocumented in this encounter Care Teams Temple Meat Cutter Relationship Specialty Start Date End Date Jonas Navas MD [address] [facility] [address] [place] [address] PCP - General Cardiothoracic Surgery 04/15/22 07/23/22 Marcell Uriostegui MD [address] [facility] [address] [place] [address] PCP - General Adolescent Medicine 07/24/22 04/05/23 Heidi Rivers, ROMERO [address] [place], [place] [id number] PCP - General Nurse Practitioner 04/06/23 Neptali Bergman MD [address] [facility] [address] [place] [address] Hematology and Oncology 10/31/24 documented as of this encounter
--- OUTSIDE RECORDS SUMMARY | 2025-05-21 09:43 | XMS_ITS | Encounter Summary ---
Author Organization [employer] ([place], [place], [place], [place], [place]) Address [address] [place] [address] Care Team Providers Care Business Transformation Manager Name Role Phone Jonas Navas MD Primary Care Provider [phone] Marcell Uriostegui MD Primary Care Provider + [phone] Heidi Rivers APRN Primary Care Provider + [phone] Neptali Bergman MD Unavailable [phone] Encounter Details Date Type Department Care Team (Late st Contact Info) Description 04/02/2020 Transcribed Document [facility] [place] Family Medicine [facility] [address] ProviderJennifer MD [address] [place] [address] Social History Tobacco Use Types Packs/Day Years Used Date Smoking Tobacco: Never Assessed Comments Unknown Sex and Gender Information Value Date Recorded Sex Assigned at Not on file Legal Sex Female 1:09 PM CDT Gender Identity Not on file Sexual Orientation Not on file documented as of this encounter Miscellaneous Notes * Cerner Conversion Note - Jennifer ProviderMD - 04/02/2020 2:28 PM MINE FOREMAN UM Authorization Entered On: 04/02/2020 14:28 EST Performed On: 04/02/2020 14:28 EST by Macy Costello, Facility Operations Manager Primary Insurance Authorization Authorization and Policy Numbers : Insurance 1 Health Plan: [employer] Policy Number: [id number] Authorization Number: Insurance Primary Name : [facility] Policy Number: [id number] Authorization Status-Primary : Denial - admission Auth/Referral Contact Name-Primary : DC + Reference Number-Primary : [id number] Authorized Service Begin Date-Primary : 03/28/2020 EST [...] complete a P2P. Awaiting callback. Emailed to [facility]. (ROSA MARIA JONES RN 04/01/2020 13:25) Comment 3: Clinicals submitted via [facility] for IP approval (CICI DIAZ RN 03/29/2020 11:18) Macy Costello, Facility Operations Manager - 04/02/2020 14:28 EST documented in this encounter Plan of Treatment Upcoming Encounters Date Type Department Care Team (Late st Contact Info) Description 11/12/2025 3:30 PM EDT Office Visit [facility] - [place] [address] [place] [address] [address] [place] [address] Neptali Bergman MD [address] [facility] [address] [place] [address] documented as of this encounter Visit Diagnoses Not on filedocumented in this encounter Care Teams Business Transformation Manager Relationship Specialty Start Date End Date Jonas Navas MD [address] [facility] [address] [place] [address] PCP - General Cardiothoracic Surgery 04/15/22 07/23/22 Marcell Uriostegui MD [address] [place] [address] [place] [address] PCP - General Adolescent Medicine 07/24/22 04/05/23 Heidi Rivers, ROMERO [address] [facility] [address] [place], [place] [id number] PCP - General Nurse Practitioner 04/06/23 Neptali Bergman MD [address] [facility] [address] [place] [address] Hematology and Oncology 10/31/24 documented as of this encounter
--- OUTSIDE RECORDS SUMMARY | 2025-05-21 09:43 | XMS_ITS | Encounter Summary ---
Author Organization [employer] ([place], [place], [place], [place], [place]) Address [address] [place] [address] Care Team Providers Care Scanning Manager Name Role Phone Jonas Navas MD Primary Care Provider [phone] Marcell Uriostegui MD Primary Care Provider + [phone] Heidi Rivers APRN Primary Care Provider + [phone] Neptali Bergman MD Unavailable [phone] Encounter Details Date Type Department Care Team (Late st Contact Info) Description 03/28/2020 Transcribed Document [facility] [place] [facility] [place] [address] ProviderJennifer MD [address] [place] [address] Social History Tobacco Use Types Packs/Day Years Used Date Smoking Tobacco: Never Assessed Comments Unknown Sex and Gender Information Value Date Recorded Sex Assigned at Not on file Legal Sex Female 1:09 PM CDT Gender Identity Not on file Sexual Orientation Not on file documented as of this encounter Miscellaneous Notes * Cerner Conversion Note - Jennifer ProviderMD - 03/28/2020 8:55 AM REMEDIATION TECHNICIAN [facility] Main OR Preop Summary Primary Physician: RICKY ROMANO MD-URO Finalized Date/Time: 03/28/20 13:55:53 Pt. Name: ALEJANDRINA YEH /Sex: 1955 Female Med Rec #: [id number] Physician: RICKY ROMANO MD-URO Financial #: [id number] Pt. Type: I Room/Bed: ASA/1 Admit/Disch: 03/28/20 06:42:00 - Institution: [facility] PreOp Case Times Entry 1 In Preop 03/28/20 06:05:00 Ready for Holding n/a Room Patient Ready for 03/28/20 07:30:00 Surgery Patient Out of Preop 03/28/20 08:10:00 Patient Out of n/a Holding Room Last Modified By: ALEXUS LINN RN 03/28/20 13:55:51 [facility] PreOp Case Times Audit 03/28/20 13:55:51 Warp Hauler: MCGRANM Modifier: MCGRANM <+> 1 Patient Out of Preop 03/28/20 09:27:42 Warp Hauler: MCGRANM Modifier: MCGRANM <+> 1 Patient Ready for Surgery Finalized By: ALEXUS LINN RN Document Signatures Signed By: ALEXUS LINN RN 03/28/20 13:55 Electronically signed by Hossein [facility] Conversion [employer] Pilot Cerner at 09/10/2022 12:50 AM CDT documented in this encounter Plan of Treatment Upcoming Encounters Date Type Department Care Team (Late st Contact Info) Description 11/12/2025 3:30 PM EDT Office Visit [facility] - [address] [place] [address] Neptali Bergman MD [address] [facility] [address] [place] [address] documented as of this encounter Visit Diagnoses Not on filedocumented in this encounter Care Teams Scanning Manager Relationship Specialty Start Date End Date Jonas Navas MD [address] [facility] [address] [place], [place] [id number] PCP - General Cardiothoracic Surgery 04/15/22 07/23/22 Marcell Uriostegui MD [address] [place] [address] [place] [address] PCP - General Adolescent Medicine 3/3/23 11/13/23 Heidi Rivers APRN [address] [facility] [address] [place] [address] PCP - General Nurse Practitioner 04/06/23 Neptali Bergman MD [address] [facility] [address] [place] [address] Hematology and Oncology 10/31/24 documented as of this encounter
--- OUTSIDE RECORDS SUMMARY | 2025-05-21 09:43 | XMS_ITS | Encounter Summary ---
Author Organization [employer] ([place], [place], [place], [place], [place]) Address [address] [place] [address] Care Team Providers Care Market Superintendent Name Role Phone Jonas Navas MD Primary Care Provider [phone] Marcell Uriostegui MD Primary Care Provider + [phone] Heidi Rivers APRN Primary Care Provider + [phone] Lu Bergman MD Unavailable [phone] Encounter Details Date Type Department Care Team (Late st Contact Info) Description 03/29/2020 Transcribed Document [facility] [place] Family Medicine [address] [place] [address] ProviderJennifer MD [address] [place] [address] Social History Tobacco Use Types Packs/Day Years Used Date Smoking Tobacco: Never Assessed Comments Unknown Sex and Gender Information Value Date Recorded Sex Assigned at Not on file Legal Sex Female 1:09 PM CDT Gender Identity Not on file Sexual Orientation Not on file documented as of this encounter Miscellaneous Notes * Cerner Conversion Note - Jennifer ProviderMD - 03/29/2020 7:18 AM BUCKLE ATTACHING MACHINE OPERATOR Patient: ALEJANDRINA YEH Age: 64 years Sex: [...] At Bedtime cefTRIAXone 1 Gram, IV Piggyback, [id number] docusate sodium 100 mg cap 100 mg [...] At Bedtime fluticasone 0.05% nasal spray 2 Wood, Nasal, Daily HYDROmorphone 1 mg/1 mL inj [...] Hematology Oncology - [place] [address] [facility] [address] [place] [phone] Lu Bergman MD [address] [place] [address] [address] [place] [address] documented as of this encounter Visit Diagnoses Not on filedocumented in this encounter Care Teams Market Superintendent Relationship Specialty Start Date End Date Jonas Navas MD [address] [facility] [address] [place], [place] [phone] PCP - General Cardiothoracic Surgery 04/15/22 07/23/22 Marcell Uriostegui MD [address] [place] [address] [place] [address] PCP - General Adolescent Medicine 07/24/22 04/05/23 Heidi Rivers, RESTAURANT CREW PERSON [address] [facility] [address] [place] [address] PCP - General Nurse Practitioner 04/06/23 Lu Bergman MD [address] [facility] [address] [place] [address] Hematology and Oncology 10/31/24 documented as of this encounter
--- OUTSIDE RECORDS SUMMARY | 2025-05-21 09:43 | XMS_ITS | Clinical Summary ---
Author Organization [employer] ([place], [place], [place], [place], [place]) Address [address] [place] [address] Care Team Providers Care Digital Content Producer Name Role Phone Heidi Rivers APRN Primary Care Provider [phone] Neptali Bergman MD Unavailable [phone] Allergies Active Allergy Reactions Criticality Noted [...] MG tablet atorvastatin 40 mg tablet Active promethazine-dext romethorphan (PROMETHAZINE-DM) 6.25-15 mg/5 mL syrup promethazine-DM 6.25 mg-15 mg/5 mL oral syrup Active promethazine (PHENERGAN) 25 MG tablet as needed. Active ondansetron (ZOFRAN-ODT) 8 MG disintegrating tablet as needed . Active lisinopril-hydroC HLOROthiazide (PRINZIDE,ZESTORE TIC) 20-25 mg per tablet lisinopril 20 mg-hydrochlorot hiazide 25 mg tablet Active albuterol HFA (VENTOLIN HFA) 90 mcg/actuation inhaler albuterol sulfate HFA 90 mcg/actuation aerosol inhaler Active fluticasone propionate (FLONASE) 50 mcg/actuation nasal spray SMARTSIG:Both Nares 023 Active omeprazole (PriLOSEC) 20 MG capsule Take by mouth. 022 Active aspirin 325 MG tablet Take 1 tablet (325 mg total) by mouth daily. Active fluticasone/umecl idin/vilanter (TRELEGY ELLIPTA INHL) Inhale 1 puff by mouth via inhaler daily. Active montelukast (SINGULAIR) 10 mg tablet SMARTSI.0 Tablet(s) By Mouth Daily 024 Active ALPRAZolam (XANAX) 0.5 MG tabletIndications :Malignant neoplasm of upper lobe bronchus, left (HCC) Take 1 tablet (0.5 mg total) by mouth every night as needed FOR ANXIETY. 90 tablet 3 025 Active predniSONE (DELTASONE) 2.5 MG tabletIndications :Malignant neoplasm of upper lobe bronchus, left (HCC) Take 1 tablet (2.5 mg total) by mouth daily with breakfast Look-alike/So und-alike medication. 90 tablet 3 025 Active lisinopril-hydroC HLOROthiazide (PRINZIDE,ZESTORE TIC) 10-12.5 mg per tablet Take 1 tablet by mouth daily. 2024 Discontinued predniSONE (DELTASONE) 2.5 MG tabletIndications :Malignant neoplasm of upper lobe bronchus, left (HCC) Take 1 tablet (2.5 mg total) by mouth daily with breakfast Look-alike/So und-alike medication. 90 tablet 3 025 2024 Discontinued(R eorder) ALPRAZolam (XANAX) 0.5 MG tablet TAKE 1 TABLET BY MOUTH EVERY NIGHT NEEDED FOR ANXIETY 90 tablet 1 025 2024 Discontinued(R eorder) Active Problems Problem Noted Date Diagnosed Date Malignant neoplasm of upper lobe bronchus, left 02/03/2022 Cancer Staging:Clinical stage from 07/25/2019:Stage IA2(cT1b, cN0, cM0) - Unsigned Pathologic stage from 07/02/2020:Stage IV(pT0, pN0, pM1) - Unsigned Encounters Date Type Department Care Team Description 05/14/2025 3:45 PM EST Infusion [facility] - [address] [place] [address] Neptali Bergman MD Malignant neoplasm of upper lobe bronchus, left (HCC) (Primary Dx) 05/14/2025 2:15 PM EST Office Visit [facility] - [place] [address] [place] [address] Neptali Bergman MD Malignant neoplasm of upper lobe bronchus, left (HCC) (Primary Dx) 05/14/2025 9:17 AM EST - 05/14/2025 11:59 PM EST Hospital En[facility] [address] [place] [address] Neptali Bergman MD Malignant neoplasm of upper lobe bronchus, left (HCC) Discharge Disposition: Home or Self Care 05/14/2025 8:29 AM EST - 05/14/2025 9:16 AM EST Hospital Encounter [facility] CT - [address] [facility] [address] [place] [address] Neptali Bergman MD Malignant neoplasm of upper lobe bronchus, left (HCC) Discharge Disposition: Home or Self Care 05/14/2025 Travel from Last 3 Months Family History Medical History Relation Name Comments [...] Date Jeff rded Speak language other than Israeli at home Not on file 06/04/2023 Want [...] Mass Index 27.02 05/14/2025 2:34 PM EST Plan of Treatment Upcoming Encounters Date Type Department Care Team (Late st Contact Info) Description 11/12/2025 3:30 PM EDT Office Visit [facility] - [address] [facility] [address] [place] [address] Neptali Bergman MD [address] [place] [address] [place] [address] Health Maintenance Due Date Last Done Comments Medicare Initial AWV G0438 CT Colonography 1955 Colonoscopy 1955 Colorectal Cancer Screening 1955 DXA SCAN 1955 FOBT/FIT 1955 Fit-DNA (Cologuard) 1955 Sigmoidoscopy 1955 Depression Screening (12+) 1967 Tobacco Cessation Counseling and Screening (12+) 1967 Hepatitis C Screening 12/03/1973 Breast Cancer Screening 1995 DTAP/TDAP/TD VACCINES (2 - T d or Tdap) 08/01/2006 08/01/1996 Respiratory Syncytial Virus (RSV) Adult or (1 - Risk 60-74 years 1-dose series) 2015 Falls Risk Screening 05/24/2024 COVID-19 VACCINE (2024- season) 2025 05/06/2022, 05/02/2021, 07/31/2020 Influenza Vaccine (#1) 2025 03/04/2021, 2019 Shingles Vaccine (Zoster) Completed 10/18/2019, 02/2019 Pneumococcal 50+ years Completed 04/24/2022, 2020 Procedures Procedure Name Priority Date/Time Associated Diagnosis Comments MRI BRAIN STEALTH WITH WITHOUT CONTRAST Routine 05/14/2025 10:26 AM EST Malignant neoplasm of upper lobe bronchus, left (HCC) CT CHEST ABDOMEN PELVIS W CONTRAST Routine 05/14/2025 9:06 AM EST Malignant neoplasm of upper lobe bronchus, left (HCC) KAPPA-LAMBDA QUANT FLC WITH RATIO(SENDOUT) Routine 05/14/2025 8:14 AM EST Malignant neoplasm of upper lobe bronchus, left (HCC) PROTEIN ELECTROPHORESIS W RFLX TO DE(SENDOUT) Routine 05/14/2025 8:14 AM EST Malignant neoplasm of upper lobe bronchus, left (HCC) TSH Routine 05/14/2025 8:14 AM EST Malignant neoplasm of upper lobe bronchus, left (HCC) CBC W/ AUTO DIFF Routine 05/14/2025 8:14 AM EST Malignant neoplasm of upper lobe bronchus, left (HCC) ONOCOLOGY CHEMISTRY PANEL Routine 05/14/2025 8:14 AM EST Malignant neoplasm of upper lobe bronchus, left (HCC) HEPATIC FUNCTION PANEL Routine 8:14 AM EST Malignant neoplasm of upper lobe bronchus, left (HCC) EXTERNAL CARDIOLOGY - MISC Routine 04/30/2025 8:14 AM EST from Last 3 Months Results * MRI BRAIN STEALTH W WO CONTRAST (05/14/2025 10:26 AM EST) Anatomical Region Laterality Modality Magnetic Resonan ce (MRI) 05/14/2025 11:3 4 AM EST Impressions 05/14/2025 12:00 PM EST 1. No evidence of intra-axial metastases. 2. Mild changes of chronic right maxillary and bilateral mastoid sinusitis. Images reviewed, interpreted, and dictated by Lorenzo Buck MD Narrative 05/14/2025 12:00 PM EST Name: ALEJANDRINA E MYLES : 1955 PRE AND POST-INFUSION BRAIN MRI [...] Lorenzo Buck MD - 05/14/2025 Name: ALEJANDRINA Hardwick MYLES : 1955 PRE AND POST-INFUSION BRAIN MRI [...] MD IMG MRI ORDERABLES Final Resul t * CT CAP w (05/14/2025 9:06 AM [...] disease in the chest, abdomen, or pelvis. Neptali Bergman MD [facility] CT ORDERABLES Final Result * (ABNORMAL) CBC with automated diff (05/14/2025 [...] Res ult ONCOLOGY LABORATORY - [address] [place] [address], [facility] [phone] * (ABNORMAL) Oncology Basic Metabolic Panel (05/14/2025 [...] - [address] Anion Gap 9 9 - 20 05/14/2025 8:30 AM EST ONCOLOGY [...] 05/14/2025 8:30 AM EST [facility] - [place] Blood Venipuncture / Unknown 05/14/2025 8:14 AM EST 05/14/2025 8:23 AM EST us Neptali Bergman MD LAB BLOOD ORDERABLES Final Res ult [facility] - [place] [address] [place] [address], [facility] [phone] * (ABNORMAL) Protein Electrophoresis w Rflx to DE (SENDOUT) (05/14/2025 8:14 AM EST) Total Protein, Serum 8.2 6.3 - 8.2 g/dL 05/18/2025 9:02 PM EST [facility] Albumin 4.26 3.75 - 5.01 g/dL 05/18/2025 9:02 PM EST [facility] Alpha 1 Globulin 0.43 0.19 - 0.46 g/dL 05/18/2025 9:02 PM EST [facility] Alpha 2 Globulin 1.05 0.48 - 1.05 g/dL 05/18/2025 9:02 PM EST [facility] Beta Globulin 1.13(H) 0.48 - 1.10 g/dL 05/18/2025 9:02 PM EST [facility] Gamma 1.33 0.62 - 1.51 g/dL 05/18/2025 9:02 PM EST [facility] Immunofixation Reflex Not Done 05/18/2025 9:02 PM [facility] Comment: Caution: Reflex to Immunofixation electrophoresis (DE)is not indicated per results of protein electrophoresis. Immunofixation electrophoresis is a more sensitive technique than serum protein electrophoresis for the identification of small M-proteins found in patients with amyloidosis, early or treated myeloma and macroglobulinemia, MGUS, solitary plasmacytoma,and extramedullary plasmacytoma. Monoclonal Protein Not Applicable <=0.00 g/dL 05/18/2025 9:02 PM EST [facility] SPEP/DE Interpretation See Note 05/18/2025 9:02 PM EST [facility] Comment:Serum protein electr ophoresis is negative for monoclonal protein. EER Serum Protein Electrophoresis Reflex See Note 05/18/2025 9:02 PM EST [facility] Comment: Authorized individuals can access the [facility] Enhanced Report with an [facility] Connect account using the following link. Your local lab can assist you in obtaining the patient report if you don't have a Connect account. [email or web address] Performed By: [facility] [address] [place] [address] Line Closer: Jony Boogie MD, PhD CLIA Number: [id number] Blood Venipuncture / Unknown 05/14/2025 8:14 AM EST 05/15/2025 8:54 AM EST us Neptali Bergman MD LAB BLOOD ORDERABLES Final Res ult [facility] [address] [place] [address], [facility] [phone] * (ABNORMAL) [place]-Lambda Quant FLC with Ratio(SENDOUT) (05/14/2025 8:14 AM EST) [place] Qnt Free Light Chains 28.53(H) 3.30 - 19.40 mg/L 05/17/2025 9:28 AM EST [facility] Comment: INTERPRETIVE INFORMATION: [place] Qnt Free Light Chains Undetected antigen excess is a rare event but cannot be excluded. Free light chain results should always be interpreted in conjunction with other clinical and laboratory findings. [place] Qnt Free Light Chains 23.95 5.71 - 26.30 mg/L 05/17/2025 9:28 AM EST [facility] Comment: INTERPRETIVE INFORMATION: [place] Qnt Free Light Chains Undetected antigen excess is a rare event but cannot be excluded. Free light chain results should always be interpreted in conjunction with other clinical and laboratory findings. [place]/Lambda Free Light Chain Ratio 1.19 0.26 - 1.65 05/17/2025 9:28 AM EST [facility] Comment: Performed By: [facility] [address] [place] [address] Line Closer: Jony Boogie MD, PhD CLIA Number: [id number] Blood Venipuncture / Unknown 05/14/2025 8:14 AM EST 05/15/2025 8:54 AM EST Neptali Bergman MD LAB BLOOD ORDERABLES Final Res ult [facility] [address] [phone] * TSH (05/14/2025 8:14 AM EST) Pathologist [facility] TSH 2.300 0.358 - 3.740 uIU/mL 05/15/2025 10:17 AM EST [facility] Blood Venipuncture / Unknown 05/14/2025 8:14 AM EST 05/15/2025 8:54 AM EST Narrative [facility] - 05/15/2025 10:17 AM EST Biotin supplements can cause clinically significant incorrect lab test results. The FDA has seen an increase in the number of reported adverse events related to biotin interference with lab tests. Neptali Bergman MD LAB BLOOD ORDERABLES Final Res ult Performing Organization Address [facility]/ZIP Co de Phone Number [facility] [address] [phone] * (ABNORMAL) Hepatic function panel (05/14/2025 8:14 AM EST) Protein, Total 8.6(H) 6.4 - 8.2 gm/dL 05/14/2025 9:16 AM EST [facility] Albumin 3.9 3.4 - 5.0 g/dL 05/14/2025 9:16 AM EST [facility] Total Bilirubin 0.7 0.2 - 1.3 mg/dL 05/14/2025 9:16 AM EST [facility] Bilirubin, Direct 0.1 0.0 - 0.2 mg/dL 05/14/2025 9:16 AM EST [facility] Alkaline Phosphatase 121 27 - 136 U/L 05/14/2025 9:16 AM EST [facility] Globulin 4.7(H) 1.5 - 4.5 g/dL 05/14/2025 9:16 AM EST [facility] A/G Ratio 0.8(L) 1.1 - 2.5 05/14/2025 9:16 AM EST [facility] AST 24 5 - 37 U/L 05/14/2025 9:16 AM EST [facility] Comment:S-cubism has become aware of sulfasalazine and sulfapyridine [...] 12 - 78 U/L 05/14/2025 9:16 AM [facility] Comment:S-cubism has become aware of sulfasalazine and sulfapyridine [...] 8:14 AM EST 05/14/2025 8:23 AM EST Neptali Bergman MD LAB BLOOD ORDERABLES Final Res ult [facility] [address] [phone] * EXTERNAL CARDIOLOGY - MISC (04/30/2025 8:14 AM EST) Anatomical Region Laterality Modality Other Historical Provider CV CARDIAC SERVICES ORDER EDUIN Final Result from Last 3 Months Insurance [facility] MEDICARE PPO [employer] MEDICARE PPO Advance Directives For more information, please contact: [phone] Documents on File Type Date Recorded Patient Criminology Professor Expl anation Advance Directives and Livin g Will 12/08/2022 8:51 AM Care Teams Digital Content Producer Relationship Specialty Start Date End Date Heidi Rivers, LEAF BINNER [address] [facility] [address] [place] [address] PCP - General Nurse Practitioner 04/06/23 Neptali Bergman MD [address] [place] [address] [address] [place] [address] Hematology and Oncology 10/31/24
--- OUTSIDE RECORDS SUMMARY | 2025-05-21 09:43 | XMS_ITS | Encounter Summary ---
Author Organization [employer] ([place], [place], [place], [place], [place]) Address [address] [place] [address] Care Team Providers Care Trust And Estates Paralegal Name Role Phone Jonas Navas MD Primary Care Provider [phone] Marcell Uriostegui MD Primary Care Provider + [phone] Heidi Rivers APRN Primary Care Provider + [phone] Neptali Bergman MD Unavailable [phone] Encounter Details Date Type Department Care Team (Late st Contact Info) Description 03/29/2020 Transcribed Document [facility] Family Medicine [facility] [place] [address] ProviderJennifer MD [address] [place] [address] Social History Tobacco Use Types Packs/Day Years Used Date Smoking Tobacco: Never Assessed Comments Unknown Sex and Gender Information Value Date Recorded Sex Assigned at Not on file Legal Sex Female 1:09 PM CDT Gender Identity Not on file Sexual Orientation Not on file documented as of this encounter Miscellaneous Notes * Cerner Conversion Note - Jennifer ProviderMD - 03/29/2020 11:29 AM PRODUCTION MATERIAL COORDINATOR UM Authorization Entered On: 03/29/2020 11:30 EST Performed On: 03/29/2020 11:29 EST by CICI DIAZ RN Primary Insurance Authorization Authorization and Policy Numbers : Insurance 1 Health Plan: [employer] Policy Number: [id number] Authorization Number: Insurance [facility] Policy Number: [id number] Authorization Status-Primary : Awaiting callback Reference Number-Primary : pend ref #[id number] Authorized Service Begin Date-Primary : 03/28/2020 EST Historical Authorization Comments-Primary : Comment 1: Clinicals submitted via [facility] for IP approval (CICI DIAZ RN 03/29/2020 11:18) CICI DIAZ RN - 03/29/2020 11:29 EST Electronically signed by [facility] Conversion Blast Setter Cerner at 09/10/2022 12:49 AM CDT documented in this encounter Plan of Treatment Upcoming Encounters Date Type Department Care Team (Late st Contact Info) Description 11/12/2025 3:30 PM EDT Office Visit [place] [facility] - [address] [place] [address] [place] [address] [place] [address] [address] [place] [address] documented as of this encounter Visit Diagnoses Not on filedocumented in this encounter Care Teams Trust And Estates Paralegal Relationship Specialty Start Date End Date Jonas Navas MD [address] [facility] [address] [place], [place] [id number] PCP - General Cardiothoracic Surgery 04/15/22 07/23/22 Marcell Uriostegui MD [address] [place] [address] [place] [address] PCP - General Adolescent Medicine 07/24/22 04/05/23 Heidi Rivers APRN [address] [place] [address] PCP - General Nurse Practitioner 04/06/23 [place] [address] [place] [address] [address] [place] [address] Hematology and Oncology 10/31/24 documented as of this encounter
--- OUTSIDE RECORDS SUMMARY | 2025-05-21 09:43 | XMS_ITS | Encounter Summary ---
Author Organization [employer] ([place], [place], [place], [place], [place]) Address [address] [place] [address] Care Team Providers Care Securities And Real Estate Director Name Role Phone Jonas Navas MD Primary Care Provider [phone] Marcell Uriostegui MD Primary Care Provider + [phone] Heidi Rivers APRN Primary Care Provider + [phone] Neptali Bergman MD Unavailable [phone] Encounter Details Date Type Department Care Team (Late st Contact Info) Description 03/29/2020 Transcribed Document [facility] Family Medicine [address] [place] [address] ProviderJennifer MD [address] [place] [address] Social History Tobacco Use Types Packs/Day Years Used Date Smoking Tobacco: Never Assessed Comments Unknown Sex and Gender Information Value Date Recorded Sex Assigned at Not on file Legal Sex Female 1:09 PM CDT Gender Identity Not on file Sexual Orientation Not on file documented as of this encounter Miscellaneous Notes * Cerner Conversion Note - Jennifer ProviderMD - 03/29/2020 11:59 AM SOAP DRIER TENDER On Going Discharge Planning Entered On: 03/29/2020 12:02 EST Performed On: 03/29/2020 11:59 EST by LORE TRONCOSO, ASHLEY-Public Health AdvisorJunior Architect Progress Note Discharge Arrangements : Patient Post-Acute Information Patient Name: ALEJANDRINA YEH Gender: Female : [birth year] Age: 64 Years No Post-Acute Placement(s) Listed No Post-Acute Service(s) Listed No [place] Referral(s) Listed Is the Patient Meeting Medical Necessity : Yes LORE TRONCOSO, RN-Public Health Advisor - 03/29/2020 11:59 EST Narrative Progress Note Narrative Progress Note : rrs high cm spoke to patient . patient is independent and denied need for hh and dme. family will transport LORE TRONCOSO RN-Public Health Advisor - 03/29/2020 11:59 EST Electronically signed by [place], [facility] Conversion Lawn Care Technician Cerner at 09/10/2022 12:32 AM CDT documented in this encounter Plan of Treatment Upcoming Encounters Date Type Department Care Team (Late st Contact Info) Description 11/12/2025 3:30 PM EDT Office Visit [place] [facility] - [address] [place] [id number] Neptali Bergman MD [address] [place] [address] [address] [place] [address] documented as of this encounter Visit Diagnoses Not on filedocumented in this encounter Care Teams Securities And Real Estate Director Relationship Specialty Start Date End Date Jonas Navas MD [address] [facility] [address] [place], [place] [address] PCP - General Cardiothoracic Surgery 04/15/22 07/23/22 Marcell Uriostegui MD [address] [place] [address] PCP - General Adolescent Medicine 07/24/22 04/05/23 Heidi Rivers, PHOTOTYPESETTING EQUIPMENT MONITOR [address] [facility] [address] [place] [address] PCP - General Nurse Practitioner 04/06/23 [place] [address] [place] [address] [address] [place] [address] Hematology and Oncology 10/31/24 documented as of this encounter
--- OUTSIDE RECORDS SUMMARY | 2025-05-21 09:43 | XMS_ITS | Encounter Summary ---
Author Organization [employer] ([place], [place], [place], [place], [place]) Address [address] [place] [address] Care Team Providers Care Folder Seamer Automatic Name Role Phone Jonas Navas MD Primary Care Provider [phone] Marcell Uriostegui MD Primary Care Provider + [phone] Heidi Rivers APRN Primary Care Provider + [phone] Neptali Bergman MD Unavailable [phone] Encounter Details Date Type Department Care Team (Late st Contact Info) Description 05/22/2020 Transcribed Document [facility] Family Medicine [address] [place] [address] ProviderJennifer MD [address] [place] [address] Social History Tobacco Use Types Packs/Day Years Used Date Smoking Tobacco: Never Assessed Comments Unknown Sex and Gender Information Value Date Recorded Sex Assigned at Not on file Legal Sex Female 1:09 PM CDT Gender Identity Not on file Sexual Orientation Not on file documented as of this encounter Miscellaneous Notes * Cerner Conversion Note - Jennifer ProviderMD - 05/22/2020 1:59 PM RESORT DESK CLERK [facility] Main OR PACU Summary Primary Physician: HEIDY GAYTAN MD-SNU Finalized Date/Time: 05/22/20 16:56:44 Pt. Name: ALEJANDRINA YEH /Sex: 1955 Female Med Rec #: [id number] Physician: HEIDY GAYTAN MD-[facility] Financial #: [id number] Pt. Type: I Room/Bed: 641/1 Admit/Disch: 05/22/20 15:58:00 - Institution: [facility] Main OR PACU I Case Times Entry 1 In PACU I 05/22/20 15:35:00 Ready for PACU 05/22/20 16:33:00 Discharge Discharge from PACU 05/22/20 16:55:00 I Last Modified By: Elza Cedeno Rn 05/22/20 16:56:34 [facility] Main OR PACU I Case Times Audit 05/22/20 16:56:34 Cork Insulation Installer: [id number] Modifier: [id number] <+> 1 Discharge from PACU I Finalized By: Elza Cedeno, Rn Document Signatures Signed By: Elza Cedeno Rn 05/22/20 16:56 Electronically signed by [facility] Conversion Early Head Start Teacher Cerner at 09/10/2022 12:47 AM CDT documented in this encounter Plan of Treatment Upcoming Encounters Date Type Department Care Team (Late st Contact Info) Description 11/12/2025 3:30 PM EDT Office Visit [place] [facility] - [address] [place] [address] Neptali Bergman MD [address] [facility] [address] [place] [address] documented as of this encounter Visit Diagnoses Not on filedocumented in this encounter Care Teams Folder Seamer Automatic Relationship Specialty Start Date End Date Jonas Navas MD [address] [facility] [address] [place] [address] PCP - General Cardiothoracic Surgery 04/15/22 07/23/22 Marcell Uriostegui MD [address] [place] [address] [place] [address] PCP - General Adolescent Medicine 07/24/22 04/05/23 Heidi Rivers, ROMERO [address] [facility] [address] [place] [address] PCP - General Nurse Practitioner 04/06/23 Neptali Bergman MD [facility] [address] [place] [address] Hematology and Oncology 10/31/24 documented as of this encounter
--- OUTSIDE RECORDS SUMMARY | 2025-05-21 09:43 | XMS_ITS | Encounter Summary ---
Author Organization [employer] ([place], [place], [place], [place], [place]) Address [address] [place] [address] Care Team Providers Care Laborer/Grade Check Name Role Phone Jonas Navas MD Primary Care Provider [phone] Marcell Uriostegui MD Primary Care Provider + [phone] Heidi Rivers APRN Primary Care Provider + [phone] Neptali Bergman MD Unavailable [phone] Encounter Details Date Type Department Care Team (Late st Contact Info) Description 03/28/2020 Transcribed Document [facility] [place] [address] [place] [address] ProviderJennifer MD [address] [place] [address] Social History Tobacco Use Types Packs/Day [...] Jennifer Arroyo MD - 03/28/2020 10:30 AM LABORER LIVESTOCK Pain Assessment Entered On: 03/28/2020 15:04 EST [...] Description 11/12/2025 3:30 PM EDT Office Visit [place] [facility] [address] [place] [phone] [place] [address] [place] [address] [address] [place] [address] documented as of this encounter Visit Diagnoses Not on filedocumented in this encounter Care Teams Laborer/Grade Check Relationship Specialty Start Date End Date Jonas Naavs MD [address] [facility] [address] [place] [address] PCP - General Cardiothoracic Surgery 04/15/22 07/23/22 Marcell Uriostegui MD [address] [place] [address] [place] [address] PCP - General Adolescent Medicine 07/24/22 04/05/23 Heidi Rivers, ROMERO [address] [place] [address] PCP - General Nurse Practitioner 04/06/23 Neptali Bergman MD [address] [facility] [address] [place] [address] Hematology and Oncology 10/31/24 documented as of this encounter
--- OUTSIDE RECORDS SUMMARY | 2025-05-21 09:43 | XMS_ITS | Encounter Summary ---
Author Organization [employer] ([place], [place], [place], [place], [place]) Address [address] [place] [address] Care Team Providers Care Uplands Division Director Name Role Phone Jonas Navas MD Primary Care Provider [phone] Marcell Uriostegui MD Primary Care Provider + [phone] Heidi Rivers APRN Primary Care Provider + [phone] Neptali Bergman MD Unavailable [phone] Encounter Details Date Type Department Care Team (Late st Contact Info) Description 03/28/2020 Transcribed Document [facility] [place] [address] [place] [address] ProviderJennifer MD [address] [place] [address] Social History Tobacco Use Types Packs/Day [...] Jennifer Arroyo MD - 03/28/2020 10:49 AM BILINGUAL EXECUTIVE ASSISTANT DATE OF PROCEDURE: 03/28/2020 SURGEON: Darryl Santamaria MD PREOPERATIVE DIAGNOSIS: History of lung cancer with left adrenal mass. POSTOPERATIVE DIAGNOSIS: History of lung cancer with left adrenal mass. PROCEDURE PERFORMED: Robotic-assisted laparoscopic left adrenalectomy. ANESTHESIA: General. USABILITY ARCHITECT: Rocio Burk MD DRAINS: None. SPECIMEN: Left [...] robotic ports were placed under visualization. The security assistant port was placed in approximately mid epigastric [...] bag and extracted through the 12 mm security assistant port. There was no significant bleeding. Pneumoperitoneum was released and the area inspected once again. All looked acceptable. The robot was undocked. The 12 mm security assistant port was closed carefully with 0 PDS. The skin was reapproximated with a 4-0 Monocryl on all incisions. The patient was converted back to supine position, awakened, extubated, transferred to postop recovery room in stable condition. /[id number] Darryl Santamaria MD TDA/AQ / TDA / MODL /[id number] CC: MD Neptali Oseguera MD Electronically signed by [facility] Conversion General Surgery Physician Assistant Cerner at 09/10/2022 12:31 AM CDT documented in this encounter Plan of Treatment Upcoming Encounters Date Type Department Care Team (Late st Contact Info) Description 11/12/2025 3:30 PM EDT Office Visit [place] [facility] [address] [place] [address] [address] [place] [address] [place] [address] [place] [address] [address] [place] [address] documented as of this encounter Visit Diagnoses Not on filedocumented in this encounter Care Teams Uplands Division Director Relationship Specialty Start Date End Date Jonas Navas MD [address] [facility] [address] [place], [place] [address] PCP - General Cardiothoracic Surgery 04/15/22 07/23/22 Marcell Uriostegui MD [address] [place] [address] PCP - General Adolescent Medicine 07/24/22 04/05/23 Heidi Rivers APRN [address] [place] [address] PCP - General Nurse Practitioner 04/06/23 [place] [address] [place] [address] [address] [place] [address] Hematology and Oncology 10/31/24 documented as of this encounter
--- OUTSIDE RECORDS SUMMARY | 2025-05-21 09:43 | XMS_ITS ---
Author Organization [employer] ([place], [place], [place], [place], [place]) Address [address] [place] [address] Care Team Providers Care Power Shovel Operator Helper Name Role Phone Heidi Rivers ROMERO Primary Care Provider [phone] Neptali Bergman MD Unavailable [phone] Active Problems Problem Noted Date Diagnosed Date Malignant neoplasm of upper lobe bronchus, left 02/03/2022 Cancer Staging:Clinical stage from 07/25/2019:Stage IA2(cT1b, cN0, cM0) - Unsigned Pathologic stage from 07/02/2020:Stage IV(pT0, pN0, pM1) - Unsigned Current Treatment and Therapy Plans [facility] LINE CARE - USE WITH INFUSIONS* Plan Start Date:10/31/2024 Linked Problems Malignant neoplasm of upper lobe bronchus, left (HCC) Treatment Medications alteplase (CATHFLO) 2 mg in SW 2 mL syringe Past Treatment and Therapy Plans ONCOLOGY TREATMENT Plan Name Start Date Discontinue Date Treatment Medications Discontinue Reason Plan Provider Cycles [facility] Lung - bevacizumab (Avastin) + [...] Date Treatment Medications Discontinue Reason Plan Provider [facility] LINE CARE - USE FOR SCHEDULED MAINTENANCE 08/03/2023 07/20/2024 alteplase (CATHFLO) 2 mg in SW 2 mL syringe Therapy Complete -
--- OUTSIDE RECORDS SUMMARY | 2025-05-21 09:43 | XMS_ITS | Encounter Summary ---
Author Organization [employer] ([place], [place], [place], [place], [place]) Address [address] [place] [address] Care Team Providers Care Civil Structural Designer Name Role Phone Jonas Navas MD Primary Care Provider [phone] Marcell Uriostegui MD Primary Care Provider + [phone] Heidi Rivers APRN Primary Care Provider + [phone] Neptali Bergman MD Unavailable [phone] Encounter Details Date Type Department Care Team (Late st Contact Info) Description 03/28/2020 Transcribed Document [facility] [place] Family Medicine [address] [place] [address] ProviderJennifer MD [address] [place] [address] Social History Tobacco Use Types Packs/Day Years Used Date Smoking Tobacco: Never Assessed Comments Unknown Sex and Gender Information Value Date Recorded Sex Assigned at Not on file Legal Sex Female 1:09 PM CDT Gender Identity Not on file Sexual Orientation Not on file documented as of this encounter Miscellaneous Notes * Cerner Conversion Note - Jennifer ProviderMD - 03/28/2020 8:55 AM CARAMEL CANDY MAKER [facility] Main OR IntraOp Summary Primary Physician: RICKY ROMANO MD-URO Finalized Date/Time: 03/30/20 16:44:05 Pt. Name: ALEJANDRINA YEH /Sex: 1955 Female Med Rec #: [id number] Physician: RICKY ROMANO MD-URO Financial #: [id number] Pt. Type: I Room/Bed: [facility] Admit/Disch: 03/28/20 06:42:00 - 03/30/20 13:18:00 Institution: [facility] IntraOp Case Attendance Entry 1 Entry 2 Entry 3 Case Attendee RICKY ROMANO, ANNI CHAPA, RESIDENT Liliya Watson RN MD-URO Role Performed Surgeon/Proceduralist, Resident Nursing Home Director, First First Time In 03/28/20 08:13:00 03/28/20 [...] ANTOINE A. MD-ANS Role Performed Anesthesiologist of PROJECT MANAGEMENT DIRECTOR/Nurse Legal Instruments Examiner Coating And Embossing Unit Operator, First Record Time In 03/28/20 08:13:00 03/28/20 [...] YANG CERDA Tracy R, Rn Role Performed Nursing Home Director, First Scrub, First Nursing Home Director, First Time In 03/28/20 08:00:00 03/28/20 08:13:00 [...] Modified By: Liliya Watson RN 03/28/20 14:55:15 [facility] IntraOp Case Attendance Audit 03/28/20 14:55:15 Battery Hand: RAFA Modifier: POJAY 1 <*> Procedure Adrenalectomy Robotic(Left) 2 <*> Procedure Adrenalectomy Robotic(Left) 3 <*> Procedure Adrenalectomy Robotic(Left) 4 <*> Procedure Adrenalectomy Robotic(Left) 5 <*> Procedure Adrenalectomy Robotic(Left) 6 <*> Procedure Adrenalectomy Robotic(Left) 7 <*> Procedure Adrenalectomy Robotic(Left) 8 <*> Procedure Adrenalectomy Robotic(Left) 9 <*> Procedure Adrenalectomy Robotic(Left) 10 <+> Time In 10 <+> Time Out 10 <*> Procedure Adrenalectomy Robotic(Left) 03/28/20 14:55:10 Battery Hand: RAFA Modifier: POFFJAN 9 <*> Time Out 03/28/20 10:34:00 9 <*> Procedure Adrenalectomy Robotic(Left) <+> 10 Case Attendee <+> 10 Role Performed <+> 10 Procedure <+> 10 Other Attendee 03/28/20 10:39:05 Battery Hand: RAFA Modifier: POBENNYJAN 1 <+> Time Out [...] 9 <*> Procedure Adrenalectomy Robotic(Left) 03/28/20 10:04:52 Battery Hand: CARMENFFSURAJ Modifier: POFFJAN <+> 1 Procedure <+> 2 Procedure <+> 3 Procedure <+> 4 Procedure <+> 5 Procedure <+> 6 Procedure <+> 7 Procedure <+> 8 Procedure <+> 9 Procedure 03/28/20 10:04:40 Battery Hand: RAFA Modifier: POFFJAN 1 <-> Procedure Adrenalectomy [...] Adrenalectomy Laparoscopic(Left) 9 <-> Procedure Adrenalectomy Laparoscopic(Left) [facility] IntraOp Case Times Entry 1 Patient In Room Time 03/28/20 08:13:00 Out Room Time 03/28/20 10:34:00 Anesthesia Start Time 03/28/20 08:13:00 Stop Time 03/28/20 10:34:00 Surgery / Procedure Times Start Time 03/28/20 08:55:00 Stop Time 03/28/20 10:21:00 Last Modified By: Liliya Watson RN 03/28/20 10:39:00 [facility] IntraOp Case Times Audit 03/28/20 10:39:00 Battery Hand: RAFA Modifier: POFFJAN <+> 1 Out Room Time <+> 1 Stop Time 03/28/20 10:21:57 Battery Hand: RAFA Modifier: POFFJAN <+> 1 Stop Time [facility] IntraOp Cautery Entry 1 ESU Identification Cautery Type Monopolar ESU ID Number [id number] ID Type Hospital Number Cautery Settings Cut Setting 3 Coag Setting 3 Bipolar Setting 3 ESU Grounding Pad Ground Pad Type Adult Grounding Pad Site Left thigh Grounding Pad Liliya Watson RN Applied By Grounding Pad Site Dry, Intact, Warm Skin Condition Before Cautery Grounding Pad Site Unchanged Skin Condition After Cautery Last Modified By: Liliya Watson RN 03/28/20 10:13:07 [facility] IntraOp Communication Entry 1 Entry 2 Communication To Family/Significant other Family/Significant other Comment PROCEDURE START UPDATE/CLOSING Communication By Liliya Watson RN Poff, Janie, RN Date and Time 03/28/20 08:36:00 03/28/20 10:00:00 Last Modified By: Liliya Watson RN Poff, Janie, RN 03/28/20 10:15:41 03/28/20 10:15:41 [facility] IntraOp Counts Verification Entry 1 Procedure Adrenalectomy Robotic(Left) Count Info Count Type Sponge, Sharps, Instrument, Miscellaneous Counts Verification Baseline/pre-procedure Sequence Count Results Not Applicable Counts Performed By Count Performed By YANG CERDA (Scrub) Count Performed By RANDY VASQUEZ RN (RN) Last Modified By: Liliya Watson RN 03/28/20 10:11:32 [facility] IntraOp Counts Final Entry 1 Procedure Adrenalectomy Robotic(Left) Final Count Info Count Type Sponge, Sharps, Miscellaneous Counts Verification Skin Closure/end of Sequence procedure Count Results Correct, surgeon notified Counts Performed By Count Performed By ASHLYN HALE (Scrub) Count Performed By Liliya Watson RN (RN) Last Modified By: Liliya Watson RN 03/28/20 10:12:28 [facility] IntraOp Cultures and Spec Summary Entry 1 Cultrures and Specimens Specimen Ordered: Yes Test(s) Routine/Path-Lab Requested/Final Disposition Last Modified By: Liliya Watson RN 03/28/20 10:16:21 General Comments: A. LEFT ADRENAL GLAND [facility] IntraOp Delays Entry 1 Delay Reason Incorrect scheduling Duration 13 Minute(s) Last Modified By: Liliya Watson RN 03/28/20 10:18:09 [facility] IntraOp Departure from OR Entry [...] Modified By: Liliya Watson RN 03/28/20 10:19:32 [facility] IntraOp Dressing and Packing Entry 1 Type Dressing Location Abdomen Wound Dressing Item Skin Closure Glue Applied By ANNI CHAPA RESIDENT Last Modified By: Liliya Watson RN 03/28/20 10:34:46 [facility] IntraOp Fire Risk Assessment Entry [...] Modified By: Liliya Watson RN 03/28/20 10:08:10 [facility] IntraOp Fire Risk Assessment Audit 03/28/20 10:08:10 Battery Hand: RAFA Modifier: RAFA 1 <*> Open O2 Source (Mask or Cannula) 1- Yes 1 <*> Fire Risk Assessment Score 2 1 <+> Fire Risk Assessment Verified Date/Time [facility] IntraOp General Case Smelter Charger 1 Case Information OR OR 03 [facility] Case Level 1 Room Verified Yes Wound Class II - Clean-Contaminated Specialty SN Urology Anesthesia Type General ASA Class 3 Diagnosis Preop Diagnosis LEFT RENAL MASS Postop Same As Preop Yes Postop Diagnosis LEFT RENAL MASS Last Modified By: Liliya Watson RN 03/28/20 10:19:59 [facility] IntraOp General Case Data Audit 03/28/20 10:19:59 Battery Hand: RAFA Modifier: RAFA 1 <+> ASA Class 1 <*> Wound Class I - Clean 1 <+> Anesthesia Type 1 <+> Postop Same As Preop 1 <+> Preop Diagnosis 1 <+> Postop Diagnosis 1 <+> Room Verified [facility] IntraOp Intraoperative Assessment Entry 1 [...] Modified By: Liliya Watson RN 03/28/20 10:10:58 [facility] IntraOp Intraoperative Equipment Entry 1 Type Monitoring Equipment Equipment Pastora Suction System ID Number [id number] Intraop Monitoring Electrocardiogram Five lead placement (ECG) Electrode Placement Blood Pressure Arterial Pressure Line Source Blood Pressure Arterial Location Antiembolic Devices Antiembolic Devices Sequential compression device, knee high Antiembolic Device Bilateral Location Antiembolic Device [id number] ID Number Scopes Photo/Video Documentation Photo No Video No Intraop Equipment SEQUENTIAL COMPRESSION Comment DEVICE ON AND IN OPERATION PRIOR TO INDUCTION. Last Modified By: Liliya Watson RN 03/28/20 10:21:16 [facility] IntraOp Patient Positioning Entry 1 Procedure Adrenalectomy [...] Modified By: Liliya Watson RN 03/28/20 10:04:53 [facility] IntraOp Patient Positioning Audit 03/28/20 10:04:53 Battery Hand: RAFA Modifier: TINYJAN <+> 1 Procedure 03/28/20 10:04:41 Battery Hand: RAFA Modifier: RAFA 1 <-> Procedure Adrenalectomy Laparoscopic(Left) [facility] IntraOp Sign In Entry 1 [...] Modified By: Liliya Watson RN 03/28/20 10:18:35 [facility] IntraOp Sign Out Entry 1 [...] Modified By: Liliya Watson RN 03/28/20 10:38:00 [facility] IntraOp Skin Prep Entry 1 Procedure Adrenalectomy Robotic(Left) Prescribed Yes Pre-Surgical Prep Completed Prep Area ABDOMEN Intraop Prep Integumentary WDL Assessment WDL Prep Agents Chloraprep Prep by Liliya Watson RN Hair Removal Methods No hair removal performed Last Modified By: Liliya Watson RN 03/28/20 10:38:50 [facility] IntraOp Surgical Procedures Entry 1 Procedure Adrenalectomy Robotic Modifiers Left Additional ROBOTIC ASSISTED Procedure LAPAROSCOPIC LEFT Description ADRENALECTOMY Primary Procedure Yes Primary Surgeon RICKY ROMANO MD-URO Start 03/28/20 08:55:00 Stop 03/28/20 10:21:00 Anesthesia Type General Specialty SN Urology Wound Class II - Clean-Contaminated Last Modified By: Liliya Watson RN 03/28/20 10:34:47 [facility] IntraOp Surgical Procedures Audit 03/28/20 10:34:47 Battery Hand: RAFA Modifier: RAFA <+> 1 Stop 03/28/20 10:04:48 Battery Hand: CARMENBENNYSURAJ Modifier: CARMENBENNYSURAJ 1 <*> Procedure Adrenalectomy Laparoscopic [facility] IntraOp Temp Regulation Devices Entry 1 Temp Regulation Temperature Warm blankets, Forced Regulation Device Air Warming device Temperature 58565 Regulation Device Serial/Unit Number Temperature Upper body Regulation Site Temperature NASIMA, ESME, PROJECT MANAGEMENT DIRECTOR Regulation Device Applied by Last Modified By: Liliya Watson RN 03/28/20 10:21:51 [facility] IntraOP Time Out Entry 1 [...] Description 11/12/2025 3:30 PM EDT Office Visit [place] [facility] - [place] [facility] [address] [place] [address] Neptali Bergman MD [address] [facility] [address] [place] [address] documented as of this encounter Visit Diagnoses Not on filedocumented in this encounter Care Teams Civil Structural Designer Relationship Specialty Start Date End Date Jonas Navas MD [address] [facility] [address] [place] [address] PCP - General Cardiothoracic Surgery 04/15/22 07/23/22 Marcell Uriostegui MD [address] [facility] [address] [address] [place] [address] PCP - General Adolescent Medicine 07/24/22 04/05/23 Heidi Rivers, BLOWER FEEDER DYED RAW STOCK [address] [place] [address] PCP - General Nurse Practitioner 04/06/23 Neptali Bergman MD [address] [facility] [address] [place] [address] Hematology and Oncology 10/31/24 documented as of this encounter
--- OUTSIDE RECORDS SUMMARY | 2025-05-21 09:43 | XMS_ITS | Encounter Summary ---
Author Organization [employer] ([place], [place], [place], [place], [place]) Address [address] [place] [address] Care Team Providers Care Canvas Goods Fabricator Name Role Phone Jonas Navas MD Primary Care Provider [phone] Marcell Uriostegui MD Primary Care Provider + [phone] Heidi Rivers APRN Primary Care Provider + [phone] Neptali Bergman MD Unavailable [phone] Encounter Details Date Type Department Care Team (Late st Contact Info) Description 03/29/2020 Transcribed Document [facility] [place] [facility] [place] [address] ProviderJennifer MD [address] [place] [address] Social History Tobacco Use Types Packs/Day Years Used Date Smoking Tobacco: Never Assessed Comments Unknown Sex and Gender Information Value Date Recorded Sex Assigned at Not on file Legal Sex Female 1:09 PM CDT Gender Identity Not on file Sexual Orientation Not on file documented as of this encounter Miscellaneous Notes * Cerner Conversion Note - Jennifer ProviderMD - 03/29/2020 5:00 PM VEHICLE MODIFICATION TECHNICIAN Chart Check - Review Order Profile Entered On: 03/29/2020 18:57 EST Performed On: 03/29/2020 17:00 EST by Raheem Baird, RN Chart Check All Active Orders Reviewed : Yes Raheem Baird, RN - 03/29/2020 18:57 EST Electronically signed by [facility] Conversion Patient Care Technician Cerner at 09/10/2022 12:32 AM CDT documented in this encounter Plan of Treatment Upcoming Encounters Date Type Department Care Team (Late st Contact Info) Description 11/12/2025 3:30 PM EDT Office Visit [place] [facility] - [address] [facility] [address] [place] [phone] Neptali Bergman MD [address] [facility] [address] [place] [address] documented as of this encounter Visit Diagnoses Not on filedocumented in this encounter Care Teams Canvas Goods Fabricator Relationship Specialty Start Date End Date Jonas Navas MD [address] [facility] [address] [place] [address] PCP - General Cardiothoracic Surgery 04/15/22 07/23/22 Marcell Uriostegui MD [address] [place] [address] PCP - General Adolescent Medicine 07/24/22 04/05/23 Heidi Rivers, ROMERO [address] [place] [address] PCP - General Nurse Practitioner 04/06/23 Neptali Bergman MD [address] [facility] [address] [place] [address] Hematology and Oncology 10/31/24 documented as of this encounter
--- OUTSIDE RECORDS SUMMARY | 2025-05-21 09:43 | XMS_ITS | Encounter Summary ---
Author Organization [employer] ([place], [place], [place], [place], [place]) Address [address] [place] [address] Care Team Providers Care Child Care Centre Director Name Role Phone Jonas Navas MD Primary Care Provider [phone] Marcell Uriostegui MD Primary Care Provider + [phone] Heidi Rievrs APRN Primary Care Provider + [phone] Neptali Bergman MD Unavailable [phone] Encounter Details Date Type Department Care Team (Late st Contact Info) Description 05/15/2020 Transcribed Document [facility] [place] [address] ProviderJennifer MD [address] [place] [address] Social History Tobacco Use Types Packs/Day Years Used Date Smoking Tobacco: Never Assessed Comments Unknown Sex and Gender Information Value Date Recorded Sex Assigned at Not on file Legal Sex Female 1:09 PM CDT Gender Identity Not on file Sexual Orientation Not on file documented as of this encounter Miscellaneous Notes * Cerner Conversion Note - Jennifer ProviderMD - 05/15/2020 10:48 AM LINE CREWMAN PAT Adult Entered On: 05/15/2020 10:51 EST [...] Source : Measured Height Entry Format : [place] Height, Feet : 0 ft(Converted to: 0 cm, 0 Inch) Height, Inches : 61 Inch(Converted to: 5 ft 1 Inch, 154.94 cm) Clinical Height : 154.94 cm Weight Source : Standing scale Weight Entry Format : [place] Clinical Dosing Weight : 79.09 kg Weight, Pounds : 174 lb Body Surface Area (BSA) : 1.78 m2 Body Mass Index : 32.9 kg/m2 (HI) [place] Body Weight : 47 kg Radha Rizvi RN - 05/20/2020 11:45 EST Health Histories Smoking Status : Former smoker, quit more than 30 days ago Smokeless Tobacco Status : Never Implant/Device Type, Night Court Magistrate and Model : none Olvin Leach Rn [...] : Living will, Medical durable power of criminal defense attorney (proxy) Medical Durable Power of In Home Baby Sitter Name : Yayo Olvin Lynn Rn - 05/15/2020 10:48 EST Spiritual/Cultural Needs Any Spiritual/Cultural Needs or Requests : Yes Spiritual/Cultural Needs Comment : 05/22/2020 Spiritism Preference : Yazidism ([employer] of [employer]) Spiritual/Cultural Needs Comment : 05/22/2020 Olvin Leach Rn - 05/15/2020 10:48 EST [place] Suicide Severity Rating Scale (C-SSRS) CSSRS Past [...] Spouse Legal Guardian : No Support Person/Patient Cost Estimating Manager : Yes Support Person/Pt Rep Name : Ti Garcíason - spouse Support Person/Pt Rep Contact Information : [phone] Want Family/Rep/Phys Notified of Admit : No Olvin Leach Rn - 05/15/2020 10:48 EST Emergency Contact #1 : Ti Yeh Emergency Contact #1 ` Emergency Contact #1 Relationship : spouse` Emergency Contact #2 : none` Emergency Contact #2 Phone Number : none` Emergency Contact #2 Relationship : none` Radha Rizvi RN - 05/20/2020 11:45 EST Information Obtained From : Patient Primary Language : Montenegrin Communication Barrier : None Wax Ball Knock Out Worker Needed : No Olvin Leach Rn - [...] - 05/15/2020 10:48 EST Electronically signed by [facility] Conversion Sanitation Worker Cleaning Machinery Cerner at 09/10/2022 12:43 AM CDT documented in this encounter Plan of Treatment Upcoming Encounters Date Type Department Care Team (Late st Contact Info) Description 11/12/2025 3:30 PM EDT Office Visit [place] [facility] - [facility] [address] [place] [address] [address] [place] [address] Neptali Bergman MD [address] [facility] [address] [place] [address] documented as of this encounter Visit Diagnoses Not on filedocumented in this encounter Care Teams Child Care Centre Director Relationship Specialty Start Date End Date Jonas Navas MD [address] [facility] [address] [place], [place] [id number] PCP - General Cardiothoracic Surgery 04/15/22 07/23/22 Marcell Uriostegui MD [address] [place] [address] [place] [address] PCP - General Adolescent Medicine 07/24/22 04/05/23 Heidi Rivers, ROMERO 2017 [facility] [address] [place] [address] PCP - General Nurse Practitioner 04/06/23 Neptali Bergman MD [facility] [address] [address] Hematology and Oncology 10/31/24 documented as of this encounter
--- OUTSIDE RECORDS SUMMARY | 2025-05-21 09:43 | XMS_ITS | Encounter Summary ---
Author Organization [employer] ([place], [place], [place], [place], [place]) Address [address] [place] [address] Care Team Providers Care Services Manager Name Role Phone Jonas Navas MD Primary Care Provider [phone] Marcell Uriostegui MD Primary Care Provider + [phone] Heidi Rivers APRN Primary Care Provider + [phone] Neptali Bergman MD Unavailable [phone] Encounter Details Date Type Department Care Team (Late st Contact Info) Description 03/28/2020 Transcribed Document [facility] [place] [facility] [place] [address] ProviderJennifer MD [address] [place] [address] Social History Tobacco Use Types Packs/Day [...] Jennifer Arroyo MD - 03/28/2020 7:30 AM AIR EXPORT COORDINATOR Procedural Documentation Entered On: 03/28/2020 8:05 EST Performed On: 03/28/2020 7:30 EST by ALEXUS LINN, ela teacher Documentation All Activity Suspended : Yes Team [...] Anesthesiologist Procedure Case Attendee Role 2 : ela teacher Case Attendee 2 : ALEXUS LINN RN [...] Description 11/12/2025 3:30 PM EDT Office Visit [place] [facility] - [place] [address] [place] [address] Neptali Bergman MD [address] [facility] [address] [place] [address] documented as of this encounter Visit Diagnoses Not on filedocumented in this encounter Care Teams Services Manager Relationship Specialty Start Date End Date Jonas Navas MD [address] [facility] [address] [place] [address] PCP - General Cardiothoracic Surgery 04/15/22 07/23/22 Marcell Uriostegui MD [address] [facility] [address] [place] [address] PCP - General Adolescent Medicine 07/24/22 04/05/23 Heidi Rivers, ROMERO 2017 [facility] [address] [place] [address] PCP - General Nurse Practitioner 04/06/23 Neptali Bergman MD [address] [facility] [address] [place] [address] Hematology and Oncology 10/31/24 documented as of this encounter
--- OUTSIDE RECORDS SUMMARY | 2025-05-21 09:43 | XMS_ITS | Encounter Summary ---
Author Organization [employer] ([place], [place], [place], [place], [place]) Address [address] [place] [address] Care Team Providers Care Photoengraving Photographer Name Role Phone Jonas Navas MD Primary Care Provider [phone] Marcell Uriostegui MD Primary Care Provider + [phone] Heidi Rivers APRN Primary Care Provider + [phone] Neptali Bergman MD Unavailable Encounter Details Date Type Department Care Team (Late st Contact Info) Description 08/07/2019 Transcribed Document [facility] [place] [facility] [place] [address] ProviderJennifer MD [address] [place] [address] Social History Tobacco Use Types Packs/Day [...] Lung cancer, COPD 07/25 PN, Dr. Jonas Navas: Nicotine dependence with withdrawal Present Treatments Results and Location in Medical Record [ X ] Chest tube 07/24 Op Report, Dr. Jonas Navas: 32-[place] chest tube was placed through a separate anterior stab incision [ X ] Oxygen Therapy 07/24-08/01 Respiratory therapy results review: nasal cannula, 4L/min Therapy Site Coordinator Signature: Ellen Xiong CCS Phone #: [phone] Date/Time: 08/07/2019 / 10:25 CT This is a permanent part of the Medical Record Q48 2019 [facility] Updated: documented in this encounter Plan of Treatment Upcoming Encounters Date Type Department Care Team (Late st Contact Info) Description 11/12/2025 3:30 PM EDT Office Visit [place] [facility] - [place] [address] [facility] [address] [place] [address] Neptali Bergman MD [address] [facility] [address] [place] [address] documented as of this encounter Visit Diagnoses Not on filedocumented in this encounter Care Teams Photoengraving Photographer Relationship Specialty Start Date End Date Jonas Navas MD [address] [facility] [address] [place] [address] PCP - General Cardiothoracic Surgery 04/15/22 07/23/22 Marcell Uriostegui MD [address] [facility] [address] [place], [place] [id number] PCP - General Adolescent Medicine 07/24/22 04/05/23 Heidi Rivers, ROMERO [address] [place] [address] PCP - General Nurse Practitioner 04/06/23 Neptali Bergman MD [address] [facility] [address] [place] [address] Hematology and Oncology 10/31/24 documented as of this encounter
--- OUTSIDE RECORDS SUMMARY | 2025-05-21 09:44 | XMS_ITS | Encounter Summary ---
Author Organization [employer] ([place], [place], [place], [place], [place]) Address [address] [place] [address] Care Team Providers Care Director Of Property Management Name Role Phone Jonas Navas MD Primary Care Provider [phone] Marcell Uriostegui MD Primary Care Provider + [phone] Heidi Rivers APRN Primary Care Provider + [phone] Neptali Bergman MD Unavailable Encounter Details Date Type Department Care Team (Late st Contact Info) Description 05/22/2020 Transcribed Document [facility] [place] [facility] [place] [address] ProviderJennifer MD [address] [place] [address] Social History Tobacco Use Types Packs/Day Years Used Date Smoking Tobacco: Never Assessed Comments Unknown Sex and Gender Information Value Date Recorded Sex Assigned at Not on file Legal Sex Female 1:09 PM CDT Gender Identity Not on file Sexual Orientation Not on file documented as of this encounter Miscellaneous Notes * Cerner Conversion Note - Jennifer ProviderMD - 05/22/2020 3:21 PM WASTE PAPER HAMMERMILL OPERATOR Evaluation, Physical Therapy Entered On: 05/23/2020 12:51 [...] WFL Left UE Strength : WFL Tanesha Mcmaahn PHYSICAL THERAPIST - 05/23/2020 12:27 EST Lower [...] Mcmahan PHYSICAL THERAPIST - 05/23/2020 12:27 EST [facility] Goals Mobility/Bed Mobility LTG PT Grid Goal [...] Mcmahan PHYSICAL THERAPIST - 05/23/2020 12:27 EST [place] PT Charges PT Ther Activities Ea 15 Min : 2 PT Eval Low Complexity : 1 Tanesha Mcmahan PHYSICAL THERAPIST - 05/23/2020 12:27 EST Electronically signed by Hossein, [facility] Conversion Ship Rigger Apprentice Cerner at 09/10/2022 12:47 AM CDT documented in this encounter Plan of Treatment Upcoming Encounters Date Type Department Care Team (Late st Contact Info) Description 11/12/2025 3:30 PM EDT Office Visit [place] [facility] - [place] [id number] [facility] [address] [place] [address] Neptali Bergman MD [address] [facility] [address] [place] [address] documented as of this encounter Visit Diagnoses Not on filedocumented in this encounter Care Teams Director Of Property Management Relationship Specialty Start Date End Date Jonas Navas MD 14[address] [facility] [address] [place], [place] [address] PCP - General Cardiothoracic Surgery 04/15/22 07/23/22 Marcell Uriostegui MD [address] [place] [address] [place] [address] PCP - General Adolescent Medicine 07/24/22 04/05/23 Heidi Rivers, ROMERO [address] [place] [address] PCP - General Nurse Practitioner 04/06/23 Neptali Bergman MD [address] [address] Hematology and Oncology 10/31/24 documented as of this encounter
--- OUTSIDE RECORDS SUMMARY | 2025-05-21 09:44 | XMS_ITS | Encounter Summary ---
Author Organization [employer] ([place], [place], [place], [place], [place]) Address [address] [place] [address] Care Team Providers Care Poultry Hatchery Laborer Name Role Phone Jonas Navas MD Primary Care Provider [phone] Marcell Uriostegui MD Primary Care Provider + [phone] Heidi Rivers APRN Primary Care Provider + [phone] Neptali Bergman MD Unavailable [phone] Encounter Details Date Type Department Care Team (Late st Contact Info) Description 05/22/2020 Transcribed Document [facility] [place] [facility] [place] [address] ProviderJennifer MD [address] [place] [address] Social History Tobacco Use Types Packs/Day Years Used Date Smoking Tobacco: Never Assessed Comments Unknown Sex and Gender Information Value Date Recorded Sex Assigned at Not on file Legal Sex Female 1:09 PM CDT Gender Identity Not on file Sexual Orientation Not on file documented as of this encounter Miscellaneous Notes * Cerner Conversion Note - Jennifer ProviderMD - 05/22/2020 3:21 PM DIABETES MANAGER Pain Assessment Entered On: 05/22/2020 21:44 EST [...] version of the form. Electronically signed by Kolby Catalan Conversion Hospital Wellness Coordinator Cerner at 09/10/2022 12:48 AM CDT documented in this encounter Plan of Treatment Upcoming Encounters Date Type Department Care Team (Late st Contact Info) Description 11/12/2025 3:30 PM EDT Office Visit [place] [facility] - [facility] [address] [place] [address] [address] [place] [address] Neptali Bergman MD [address] [facility] [address] [place] [address] documented as of this encounter Visit Diagnoses Not on filedocumented in this encounter Care Teams Poultry Hatchery Laborer Relationship Specialty Start Date End Date Jonas Navas MD 1401 [facility] [address] [place], [place] [id number] PCP - General Cardiothoracic Surgery 04/15/22 07/23/22 Marcell Uriostegui MD [address] [place] [address] PCP - General Adolescent Medicine 07/24/22 04/05/23 Heidi Rivers APRN [address] [place] [address] PCP - General Nurse Practitioner 04/06/23 [place] [address] [place] [address] [address] [place] [address] Hematology and Oncology 10/31/24 documented as of this encounter
--- OUTSIDE RECORDS SUMMARY | 2025-05-21 09:44 | XMS_ITS | Encounter Summary ---
Author Organization [employer] ([place], [place], [place], [place], [place]) Address [address] [place] [address] Care Team Providers Care Hide Trimmer Name Role Phone Jonas Navas MD Primary Care Provider [phone] Marcell Uriostegui MD Primary Care Provider + [phone] Heidi Rivers APRN Primary Care Provider + [phone] Neptali Bergman MD Unavailable [phone] Encounter Details Date Type Department Care Team (Late st Contact Info) Description 05/23/2020 Transcribed Document [facility] [place] [facility] [place] [address] ProviderJennifer MD [address] [place] [address] Social History Tobacco Use Types Packs/Day Years Used Date Smoking Tobacco: Never Assessed Comments Unknown Sex and Gender Information Value Date Recorded Sex Assigned at Not on file Legal Sex Female 1:09 PM CDT Gender Identity Not on file Sexual Orientation Not on file documented as of this encounter Miscellaneous Notes * Cerner Conversion Note - Jennifer ProviderMD - 05/23/2020 12:55 PM RHIA Stroke/Warfarin Instructions Entered On: 05/23/2020 12:55 EST Performed On: 05/23/2020 12:55 EST by MEENAKSHI GONZALEZ, RN Stroke/Warfarin Instructions Stroke/TIA Discharge Ins : N/A Warfarin Discharge Ins : N/A MEENAKSHI GONZALEZ RN - 05/23/2020 12:55 EST Electronically signed by [facility] Conversion Diesel Powerplant Mechanic Cerner at 09/10/2022 12:39 AM CDT documented in this encounter Plan of Treatment Upcoming Encounters Date Type Department Care Team (Late st Contact Info) Description 11/12/2025 3:30 PM EDT Office Visit [place] [facility] - [place] [address] [place] [address] Neptali Bergman MD [address] [facility] [address] [place] [address] documented as of this encounter Visit Diagnoses Not on filedocumented in this encounter Care Teams Hide Trimmer Relationship Specialty Start Date End Date Jonas Navas MD [address] [facility] [address] [place] [address] PCP - General Cardiothoracic Surgery 04/15/22 07/23/22 Marcell Uriostegui MD 12[address] [facility] [address] [place] [address] PCP - General Adolescent Medicine 07/24/22 04/05/23 Heidi Rivers, ROMERO [address] [place], [place] [address] PCP - General Nurse Practitioner 04/06/23 Neptali Bergman MD [address] [facility] [address] [place] [address] Hematology and Oncology 10/31/24 documented as of this encounter
--- OUTSIDE RECORDS SUMMARY | 2025-05-21 09:44 | XMS_ITS | Encounter Summary ---
Author Organization [employer] ([place], [place], [place], [place], [place]) Address [address] [place] [address] Care Team Providers Care School Counsellor Name Role Phone Jonas Navas MD Primary Care Provider [phone] Marcell Uriostegui MD Primary Care Provider + [phone] Heidi Rivers APRN Primary Care Provider + [phone] Neptali Bergman MD Unavailable [phone] Encounter Details Date Type Department Care Team (Late st Contact Info) Description 05/23/2020 Transcribed Document [facility] Radiology [address] [place] [address] Dolores Batista MD [address] [place] [address] Social History Tobacco Use Types Packs/Day Years [...] is a 64 yo female admitted to [facility] per Dr. Mendez for an L5-S1 TLIF. [...] Bedtime fluticasone 50 mcg/inh nasal spray 2 [place], PRN, Nasal, Daily hydroCHLOROthiazide-lisinopril 25 mg-20 mg [...] 05/23/2020 04:17 Blood Urea Nitrogen 23 mg/dL [place] 05/23/2020 04:24 Glucose Level 154 mg/dL [place] 05/23/2020 04:24 Calcium Level 8.9 mg/dL 05/23/2020 04:17 Creatinine Level 1.10 mg/dL [place] 05/23/2020 04:24 Cardiac Markers (Current Encounter/Past 24 Hours) No Cardiac Marker Results Found (Past 24 Hours) CBC Results (Current Encounter/Past 24 Hours) WBC 13.9 K/uL [place] 05/23/2020 04:02 Hct 30.3 % LOW 05/23/2020 04:02 Hgb 9.4 g/dL LOW 05/23/2020 04:02 Platelet Count 263 K/uL 05/23/2020 03:53 CMP Results (Current Encounter/Past 24 Hours) eGFR NonAfrican 50 mL/min/1.73m2 LOW 05/23/2020 04:17 Bun/Creatinine 20.9 NH 05/23/2020 04:24 Creatinine Level 1.10 mg/dL NH 05/23/2020 04:24 eGFR NonAfrican 50 mL/min/1.73m2 LOW 05/23/2020 04:24 Creatinine Level 1.10 mg/dL NH 05/23/2020 04:17 Bun/Creatinine 20.9 NH 05/23/2020 04:17 eGFR >60 mL/min/1.73m2 05/23/2020 04:17 Sodium Level 136 mmol/L 05/23/2020 04:17 Potassium Level 4.2 mmol/L 05/23/2020 04:17 Chloride Level 103 mmol/L 05/23/2020 04:17 Carbon Dioxide Level 27 mmol/L 05/23/2020 04:17 Anion Gap 10 05/23/2020 04:17 Blood Urea Nitrogen 23 mg/dL NH 05/23/2020 04:24 Glucose Level 154 mg/dL NH 05/23/2020 04:24 Calcium Level 8.9 mg/dL 05/23/2020 04:17 Coagulation Results (Current Encounter/Past 24 Hours) No Coagulation Results Found (Past 24 Hours) Creatinine Clearance (Current Encounter/Past 24 Hours) Creatinine Level 1.10 mg/dL HI 05/23/2020 04:24 Bun/Creatinine 20.9 HI 05/23/2020 04:24 Estimated Creatinine Clearance 38.99 mL/Min 05/23/2020 04:17 Radiology Results (Last 48 hours) [id number] -- 05/22/2020 15:58 CR Fluoro in OR [...] Description 11/12/2025 3:30 PM EDT Office Visit [place] [facility] - [place] [address] [place] [address] Neptali Bergman MD [address] [facility] [address] [place] [address] documented as of this encounter Visit Diagnoses Not on filedocumented in this encounter Care Teams School Counsellor Relationship Specialty Start Date End Date Jonas Navas MD [address] [facility] [address] [place] [address] PCP - General Cardiothoracic Surgery 04/15/22 07/23/22 Marcell Uriostegui MD [address] [facility] [address] [place] [address] PCP - General Adolescent Medicine 07/24/22 04/05/23 Heidi Rivers APRN 2017 [facility] [address] [place] [address] PCP - General Nurse Practitioner 04/06/23 Neptali Bergman MD [address] [facility] [address] [place] [address] Hematology and Oncology 10/31/24 documented as of this encounter
--- OUTSIDE RECORDS SUMMARY | 2025-05-21 09:44 | XMS_ITS | Encounter Summary ---
Author Organization [employer] ([place], [place], [place], [place], [place]) Address [address] [place] [address] Care Team Providers Care Marine Fuel Dock Attendant Name Role Phone Jonas Navas MD Primary Care Provider [phone] Marcell Uriostegui MD Primary Care Provider + [phone] Heidi Rivers APRN Primary Care Provider + [phone] Neptali Bergman MD Unavailable [phone] Encounter Details Date Type Department Care Team (Late st Contact Info) Description 05/22/2020 Transcribed Document [facility] Family Medicine [address] [place] [address] Provider, MD Jennifer [address] [place] [address] Social History Tobacco Use Types Packs/Day Years Used Date Smoking Tobacco: Never Assessed Comments Unknown Sex and Gender Information Value Date Recorded Sex Assigned at Not on file Legal Sex Female 1:09 PM CDT Gender Identity Not on file Sexual Orientation Not on file documented as of this encounter Miscellaneous Notes * Cerner Conversion Note - Jennifer ProviderMD - 05/22/2020 1:59 PM COMPUTER FORENSICS TECHNICIAN [facility] Main OR IntraOp Summary Primary Physician: HEIDY GAYTAN MD-SNU Finalized Date/Time: 05/23/20 12:10:35 Pt. Name: ALEJANDRINA YEH /Sex: 1955 Female Med Rec #: [id number] Physician: HEIDY GAYTAN MD-SNU Financial #: [id number] Pt. Type: I Room/Bed: [facility] Admit/Disch: 05/22/20 15:58:00 - Institution: [facility] IntraOp Case Attendance Entry 1 Entry 2 Entry 3 Case Attendee HEIDY GAYTAN Byrd, Charlie D, RN Azul Daigle Rn MD-SNU Role Performed Surgeon/Proceduralist, Store Receiving Specialist, First Store Receiving Specialist, Second First Time In 05/22/20 13:27:00 05/22/20 [...] APRN TECH Role Performed Scrub, First Physician product safety technical assistant BUSINESS UNIT DIRECTOR/Nurse Elastic Attacher Chainstitch Time In 05/22/20 13:27:00 05/22/20 13:27:00 05/22/20 [...] OTHER, ATTENDEE #1 Role Performed Anesthesiologist of Ductfixing Plumber Vendor Record Time In 05/22/20 13:27:00 05/22/20 [...] Case Attendee Kiah Lima RN Role Performed Store Receiving Specialist, Third Time In 05/22/20 14:00:00 Time Out 05/22/20 15:34:[address] Procedure MIS [address] CT Guided Other Attendee Superficial Wound Closed By: Last Modified By: Kiah Lima RN 05/22/20 15:34:23 [facility] IntraOp Case Attendance Audit 05/22/20 15:34:23 Parts Product Analyst: STANTON Modifier: [email or web address] 1 <+> Time Out [...] MIS Posterior Fusion CT Guided 05/22/20 15:22:13 Parts Product Analyst: [email or web address] Modifier: LAURYNKAMALABERNARDELENEMILEE 2 <+> Time Out 2 <*> Procedure MIS Posterior Fusion CT Guided 3 <+> Time Out 3 <*> Procedure MIS Posterior Fusion CT Guided 10 <*> Procedure MIS Posterior Fusion CT Guided 05/22/20 14:51:48 Parts Product Analyst: [email or web address] Modifier: [email or web address] 9 <*> Procedure MIS Posterior Fusion CT Guided 9 <*> Other Attendee OMER KENYON 05/22/20 14:19:12 Parts Product Analyst: CHAPARRO Modifier: [email or web address] 8 <*> Case Attendee Mag Zamora, Diagnostic Department Coordinator 8 <*> Procedure MIS Posterior Fusion CT Guided 05/22/20 14:02:07 Parts Product Analyst: [id number] Modifier: [email or web address] <+> 10 Case Attendee <+> 10 Role Performed <+> 10 Time In <+> 10 Procedure 05/22/20 13:27:51 Parts Product Analyst: [id number] Modifier: [id number] 1 <+> Time In 1 <*> Procedure [...] <*> Procedure MIS Posterior Fusion CT Guided [facility] IntraOp Case Times Entry 1 Patient In Room Time 05/22/20 13:27:00 Out Room Time 05/22/20 15:34:00 Anesthesia Start Time 05/22/20 13:27:00 Stop Time 05/22/20 15:34:00 Surgery / Procedure Times Start Time 05/22/20 13:59:00 Stop Time 05/22/20 15:28:00 Last Modified By: Kiah Lima RN 05/22/20 15:34:16 [facility] IntraOp Case Times Audit 05/22/20 15:34:16 Parts Product Analyst: STANTON Modifier: STANTON <+> 1 Out Room Time <+> 1 Stop Time 05/22/20 15:26:27 Parts Product Analyst: CHAPARRO Modifier: STANTON <+> 1 Stop Time 05/22/20 13:59:15 Parts Product Analyst: [id number] Modifier: CHAPARRO <+> 1 Start Time [facility] IntraOp Cautery Entry 1 ESU Identification Cautery [...] Modified By: Navid Anand RN 05/22/20 14:06:37 [facility] IntraOp Communication Entry 1 Communication To Family/Significant other Comment START Communication By Kiah Lima RN Date and Time 05/22/20 14:01:00 Last Modified By: Navid Anand RN 05/22/20 14:02:14 [facility] IntraOp Communication Audit 05/22/20 14:02:14 Parts Product Analyst: CHAPARRO Modifier: [email or web address] <+> 1 Communication By [facility] IntraOp Counts Verification Entry 1 Procedure MIS Posterior Fusion CT Guided Count Info Count Type Sponge, Sharps, Miscellaneous Counts Verification Baseline/pre-procedure Sequence Count Results Not Applicable Counts Performed By Count Performed By SHARON BENITEZ SCRUB (Scrub) TECH Count Performed By Azul Daigle Rn (RN) Last Modified By: Azul Daigle Rn 05/22/20 13:28:28 [facility] IntraOp Counts Final Entry 1 Procedure MIS Posterior Fusion CT Guided Final Count Info Count Type Sponge, Sharps, Miscellaneous Counts Verification Skin Closure/end of Sequence procedure Count Results Correct, surgeon notified Counts Performed By Count Performed By SHARON BENITEZ SCRUB (Scrub) TECH Count Performed By Navid Anand, RN (RN) Last Modified By: Navid Anand RN 05/22/20 15:04:34 [facility] IntraOp Departure from OR Entry 1 Integumentary Assessment Integumentary WDL Assessment WDL Transfer/Handoff Transfer to PACU Phase I Handoff Method Bedside/Face to face, Phone call Post-op Transport Stretcher/Wil Via Patient Transport FLORENCE SHEPHERD, Accompanied by JENNIE ABERNATHY APRN Last Modified By: Navid Anand RN 05/22/20 14:19:34 [facility] IntraOp Dressing and Packing Entry 1 Type Dressing Location OP SITE Wound Dressing Item Occlusive dressing, Other Applied By FLORENCE SHEPHERD Last Modified By: Navid Anand RN 05/22/20 14:50:42 [facility] IntraOp Fire Risk Assessment Entry 1 Fire [...] Modified By: Azul Daigle Rn 05/22/20 13:28:54 [facility] IntraOp Fire Risk Assessment Audit 05/22/20 13:28:54 Parts Product Analyst: [id number] Modifier: [id number] <+> 1 Fire Risk Assessment Complete <+> 1 Fire Risk Assessment Verified By <+> 1 Fire Risk Assessment Verified Date/Time <+> 1 Standard Fire Safety Precautions Followed [facility] Intra General Case Animal Control Specialist 1 Case Information OR OR 09 [facility] Case Level 1 Room Verified Yes Wound Class I - Clean Specialty SN Neurosurgery Anesthesia Type General ASA Class 3 Diagnosis Preop Diagnosis LUMBAR SPONDYLOLISTHESIS Postop Same As Preop No Postop Diagnosis SEE MD POST OP NOTE Last Modified By: Azul Daigle Rn 05/22/20 13:32:05 [facility] IntraOp General Case Data Audit 05/22/20 13:32:05 Parts Product Analyst: [id number] Modifier: [id number] <+> 1 ASA Class [facility] IntraOp Implant Log Entry 1 Entry 2 Entry 3 Type Implant (Synthetic) Implant (Synthetic) Implant (Synthetic) Implant Log Implant Type Other Hardware Hardware Tissue Implant Type Implant BONE VIVIGEN FORMABLE CONCORDE BUL YAO MIS ELENI PLY SCRW SET Identification CELL [id number] Description Implant Quantity 1 1 4 Implant Site OPERATIVE SITE L5-S1 OP SITE OP SITE Implant Identification Model Number Implant ID [id number] Identification Serial Number Implant Identification Lot Number Implant Lifenet:Lifenet J&J:Depuy:Depuy Spine J&J:Depuy:Depuy Spine Identification Transplant Srv Forensics Team Director Name: Implant [id number] Identification Catalog Number Implant Size Implant Has an Yes Expiration Date Implant Expiration 03/08/21 Date Wasted Radioactive Material Time Implanted Tissue Implant Continue for Tissue Implant Documentation Tissue Identification Number Graft Prep Per Forensics Team Director Instructions: Tissue Preparation Method: Reconstitution Solution: Reconstitution Solution Lot Number Reconstitution Solution Expiration Date: Thawing Solution Thawing Solution Lot Number Thawing Solution Expiration Date Preparation Materials, Other Preparation Materials, Other Lot Number Preparation Materials, Other Expiration Date Tissue Prepared/Processed By Forensics Team Director Paperwork Completed Implant Type Comment Last Modified By: Navid Anand RN Byrd, Charlie D, RN Byrd, Charlie D, RN 05/22/20 14:09:38 05/22/20 14:42:22 05/22/20 14:42:22 Entry 4 Entry 5 Type Implant (Synthetic) Implant (Synthetic) Implant Log Implant Type Hardware Hardware Tissue Implant Type Implant PRM-SCREW 6X45MM VIPER NATTY SPINE VIPER Identification PRIM POLYAX EXTEND TAB [id number] Description FEN DAVID TI [id number] Implant Quantity 4 2 Implant Site OP SITE OP SITE Implant Identification Model Number Implant Identification Serial Number Implant Identification Lot Number Implant DEPUY SPINE J&J:Depuy:Depuy Spine Identification Forensics Team Director Name: Implant [id number] Identification Catalog Number Implant Size Implant Has an Expiration Date Implant Expiration Date Wasted Radioactive Material Time Implanted Tissue Implant Continue for Tissue Implant Documentation Tissue Identification Number Graft Prep Per Forensics Team Director Instructions: Tissue Preparation Method: Reconstitution Solution: Reconstitution Solution Lot Number Reconstitution Solution Expiration Date: Thawing Solution Thawing Solution Lot Number Thawing Solution Expiration Date Preparation Materials, Other Preparation Materials, Other Lot Number Preparation Materials, Other Expiration Date Tissue Prepared/Processed By Forensics Team Director Paperwork Completed Implant Type Comment Last Modified By: Navid Anand RN Byrd, Charlie D, RN 05/22/20 14:42:22 05/22/20 14:51:22 [facility] IntraOp Implant Log Audit 05/22/20 14:51:22 Parts Product Analyst: CHAPARRO Modifier: CHAPARRO <+> 5 Implant Identification Description <+> 5 Implant Identification Forensics Team Director Name: <+> 5 Implant Site <+> 5 Implant Quantity <+> 5 Implant Identification Catalog Number <+> 5 Implant Type <+> 5 Type 05/22/20 14:42:22 Parts Product Analyst: CHAPARRO Modifier: CHAPARRO <+> 2 Implant Identification Description <+> 2 Implant Identification Forensics Team Director Name: <+> 2 Implant Site <+> 2 Implant Quantity <+> 2 Implant Identification Catalog Number <+> 2 Implant Type <+> 2 Type <+> 3 Implant Identification Description <+> 3 Implant Identification Forensics Team Director Name: <+> 3 Implant Site <+> 3 Implant Quantity <+> 3 Implant Identification Catalog Number <+> 3 Implant Type <+> 3 Type <+> 4 Implant Identification Description <+> 4 Implant Identification Forensics Team Director Name: <+> 4 Implant Site <+> 4 Implant Quantity <+> 4 Implant Identification Catalog Number <+> 4 Implant Type <+> 4 Type [facility] IntraOp Intraoperative Assessment Entry 1 Handoff Method [...] Modified By: Azul Daigle Rn 05/22/20 13:33:15 [facility] IntraOp Intraoperative Equipment Entry 1 Type Equipment Equipment Equipment Pastora Suction System ID Number [id number] Setting 200 MM HG Intraop Monitoring Electrocardiogram Five lead placement (ECG) Electrode Placement Blood Pressure Non-Invasive BP Device Source Blood Pressure Arm, right upper Location Pulse Oximeter Hand, left Probe Site Antiembolic Devices Antiembolic Devices Sequential compression device, knee high Antiembolic Device Bilateral Location Antiembolic Device 48575 ID Number Scopes Photo/Video Documentation Photo No Video No Last Modified By: Azul Daigle Rn 05/22/20 13:35:25 [facility] IntraOp Medication Admin Entry 1 Entry 2 Entry 3 Medication/Irrigant Bacitracin 50,00units lidocaine 1% w/ SPNG SURGFOAM powder vial epinephrine 1:100,000 [id number] 30ml vial - [id number] Combo Med List Time Administered Route of ADDED TO NS IRRIGATION LOCAL TOPICAL Administration Dose Dose 27321 10 1 Unit of Measure units ml pkt Volume Administered By LUKAS, HEIDY HAJA, LUKASHEIDY TUTT, MATTHEW PAIGE, MD-SNU MD-SNU MD-SNU Procedure Irrigation Irrigant Volume In Irrigant Volume Out Last Modified By: Navid Anand RN Byrd, Charlie D, RN Byrd, Charlie D, RN 05/22/20 14:18:31 05/22/20 14:18:31 05/22/20 14:18:31 Entry 4 Medication/Irrigant thrombin 5000units topical powder - [id number] Combo Med List Time Administered Route of TOPICAL Administration Dose Dose 5000 Unit of Measure units Volume Administered By HEIDY GAYTAN MD-SNU Procedure Irrigation Irrigant Volume In Irrigant Volume Out Last Modified By: Navid Anand RN 05/22/20 14:18:31 General Comments: LUKAS LOCAL COMBO KENALOG 40MG, TORADOL 15MG, MARCAINE 0.25% PLAIN 30ML [facility] IntraOp Patient Positioning Entry 1 Procedure MIS [...] Anand, ASHLEY, Azul Daigle Rn, EMMANUEL, SHARON, PROP DRAWER, MICHELA, JENNIE, ROMERO Position Verified Positioning Yes Verified by Anesthesia Positioning Yes Verified by Surgeon Last Modified By: Navid Anand RN 05/22/20 14:04:12 [facility] IntraOp Sign In Entry 1 Patient, Site, [...] Modified By: Azul Daigle Rn 05/22/20 13:36:02 [facility] IntraOp Sign Out Entry 1 RN Confirmation [...] Modified By: Kiah Lima RN 05/22/20 15:34:20 [facility] IntraOp Sign Out Audit 05/22/20 15:34:20 Parts Product Analyst: [email or web address] Modifier: PUNEETON <+> 1 RN Sign Out Signature Date/Time [facility] IntraOp Skin Prep Entry 1 Procedure MIS Posterior Fusion CT Guided Prescribed N/A Pre-Surgical Prep Completed Intraop Prep Prep Agents Chloraprep Prep by Azul Daigle, Rn Hair Removal Last Modified By: Navid Anand RN 05/22/20 14:02:37 [facility] IntraOp Surgical Procedures Entry 1 Procedure MIS Posterior Fusion CT Guided Additional (L5-S1 MIS TLIF USING Procedure DALILA) Description Primary Procedure Yes Primary Surgeon HEIDY GAYTAN MD-SNU Start 05/22/20 13:59:00 Stop 05/22/20 15:28:00 Anesthesia Type General Specialty SN Neurosurgery Wound Class I - Clean Last Modified By: Kiah Lima RN 05/22/20 15:26:31 [facility] IntraOp Surgical Procedures Audit 05/22/20 15:26:31 Parts Product Analyst: [email or web address] Modifier: KIELY 1 <*> Procedure MIS Posterior Fusion CT Guided 1 <+> Stop 05/22/20 14:14:06 Parts Product Analyst: [id number] Modifier: [email or web address] <+> 1 Start [facility] IntraOp Temp Regulation Devices Entry 1 Temp Regulation Temperature Forced Air Warming Regulation Device device, Warm blankets Temperature 54821 Regulation Device Serial/Unit Number Temperature Upper body Regulation Site Temperature Device 43 C Setting Temperature JENNIE ABERNATHY APRN Regulation Device Applied by Last Modified By: Navid Anand RN 05/22/20 14:18:52 [facility] IntraOP Time Out Entry 1 Procedure to [...] Modified By: Navid Anand RN 05/22/20 13:58:47 [facility] IntraOp X-Ray and Images Entry 1 X-Ray/Imaging Type Fluoroscopy Fluoroscopy Type C-Arm Site OP SITE Sock Ironer Name YOLY ADKINS Last Modified By: Navid Anand RN 05/22/20 14:19:18 [facility] IntraOp X-Ray and Images Audit 05/22/20 14:19:18 Parts Product Analyst: [email or web address] Modifier: [email or web address] <+> 1 Sock Ironer Name 05/22/20 14:19:02 Parts Product Analyst: [id number] Modifier: [email or web address] 1 <-> Sock Ironer Name Mag Zamora Diagnostic Department Coordinator Case Comments <None> Finalized By: CUONG BRAND Document Signatures Signed By: Kiah Lima RN 05/22/20 15:34 CUONG BRAND 05/23/20 12:10 Unfinalized History Date/Time Username Reason for Unfinalizing Freetext Reason for Unfinalizing 05/23/20 12:08 SILVERIO Correct Billing Electronically signed by Hossein [facility] Conversion Student Success Counselor Cerner at 09/10/2022 12:39 AM CDT documented in this encounter Plan of Treatment Upcoming Encounters Date Type Department Care Team (Late st Contact Info) Description 11/12/2025 3:30 PM EDT Office [facility] [address] [place] [address] Neptali Bergman MD [address] [place] [address] [address] [place] [address] documented as of this encounter Visit Diagnoses Not on filedocumented in this encounter Care Teams Marine Fuel Dock Attendant Relationship Specialty Start Date End Date Jonas Navas MD [address] [facility] [address] [place] [address] PCP - General Cardiothoracic Surgery 04/15/22 07/23/22 Marcell Uriostegui MD [address] [place] [address] [place] [address] PCP - General Adolescent Medicine 07/24/22 04/05/23 Heidi Rivers, RUBBER OFF [address] [place] [address] PCP - General Nurse Practitioner 04/06/23 [place] [address] [place] [address] [address] [place] [address] Hematology and Oncology 10/31/24 documented as of this encounter
--- OUTSIDE RECORDS SUMMARY | 2025-05-21 09:44 | XMS_ITS | Encounter Summary ---
Author Organization [employer] ([place], [place], [place], [place], [place]) Address [address] [place] [address] Care Team Providers Care Oyster Tonger Name Role Phone Jonas Navas MD Primary Care Provider [phone] Marcell Uriostegui MD Primary Care Provider + [phone] Heidi Rivers APRN Primary Care Provider + [phone] Neptali Bergman MD Unavailable [phone] Encounter Details Date Type Department Care Team (Late st Contact Info) Description 05/22/2020 Transcribed Document [facility] Family Medicine [address] [place] [address] ProviderJennifer MD [address] [place] [address] Social History Tobacco Use Types Packs/Day [...] Jennifer Arroyo MD - 05/22/2020 3:21 PM DIRECTOR OF CARDIAC CATH LAB Pain Assessment Entered On: 05/23/2020 6:15 EST [...] version of the form. Electronically signed by Hossein, [facility] Conversion Oracle Wms Consultant Cerner at 09/11/2022 11:53 AM CDT documented in this encounter Plan of Treatment Upcoming Encounters Date Type Department Care Team (Late st Contact Info) Description 11/12/2025 3:30 PM EDT Office Visit [facility] - [address] [place] [address] Neptali Bergman MD [address] [place] [address] [address] [place] [address] documented as of this encounter Visit Diagnoses Not on filedocumented in this encounter Care Teams Oyster Tonger Relationship Specialty Start Date End Date Jonas Navas MD [address] [facility] [address] [place], [place] [address] PCP - General Cardiothoracic Surgery 04/15/22 07/23/22 Marcell Uriostegui MD [address] [place] [address] [place] [address] PCP - General Adolescent Medicine 07/24/22 04/05/23 Heidi Rivers APRN [address] [facility] [address] [place] [address] PCP - General Nurse Practitioner 04/06/23 [place] [address] [place] [address] [address] [place] [address] Hematology and Oncology 10/31/24 documented as of this encounter
--- OUTSIDE RECORDS SUMMARY | 2025-05-21 09:44 | XMS_ITS | Encounter Summary ---
Author Organization [employer] ([place], [place], [place], [place], [place]) Address [address] [place] [address] Care Team Providers Care Chemical Compounder Name Role Phone Blaze Walden MD Primary Care Provider [phone] Marcell Uriostegui MD Primary Care Provider + [phone] Heidi Rivers APRN Primary Care Provider + [phone] Neptali Bergman MD Unavailable [phone] Encounter Details Date Type Department Care Team (Late st Contact Info) Description 07/25/2019 Transcribed Document [facility] [place] [facility] [place] [address] ProviderJennifer MD [address] [place] [address] Social History Tobacco Use Types Packs/Day Years Used Date Smoking Tobacco: Never Assessed Comments Unknown Sex and Gender Information Value Date Recorded Sex Assigned at Not on file Legal Sex Female 1:09 PM CDT Gender Identity Not on file Sexual Orientation Not on file documented as of this encounter Miscellaneous Notes * Cerner Conversion Note - Jennifer ProviderMD - 07/25/2019 8:34 AM NIGHT WAREHOUSE MANAGER [facility] Main OR Preop Summary Primary Physician: BLAZE WALDEN MD-CAT Finalized Date/Time: 07/25/19 13:44:52 Pt. Name: ALEJANDRINA YEH /Sex: 1955 Female Med Rec #: [id number] Physician: BLAZE WALDEN MD-[facility] Financial #: [id number] Pt. Type: I Room/Bed: ASA/7 Admit/Disch: 07/25/19 07:00:00 - Institution: [facility] PreOp Case Times Entry 1 In Preop 07/25/19 05:30:00 Ready for Holding n/a Room Patient Ready for 07/25/19 06:47:00 Surgery Patient Out of Preop 07/25/19 07:13:00 Patient Out of n/a Holding Room Last Modified By: BRINA CACERES 07/25/19 13:44:46 [facility] PreOp Case Times Audit 07/25/19 13:44:46 Frame Sample And Pattern Supervisor: [email or web address] Modifier: [email or web address] <+> 1 Patient Out of Preop Finalized By: BRINA CACERES Document Signatures Signed By: BRINA CACERES 07/25/19 13:44 Electronically signed by Hossein [facility] Conversion Journeyman Mechanic Cerner at 09/10/2022 12:40 AM CDT documented in this encounter Plan of Treatment Upcoming Encounters Date Type Department Care Team (Late st Contact Info) Description 11/12/2025 3:30 PM EDT Office Visit [facility] - [address] [place] [address] Neptali Bergman MD [address] [facility] [address] [place] [address] documented as of this encounter Visit Diagnoses Not on filedocumented in this encounter Care Teams Chemical Compounder Relationship Specialty Start Date End Date Blaze Walden MD [address] [facility] [address] [place], [place] [address] PCP - General Cardiothoracic Surgery 04/15/22 07/23/22 Marcell Uriostegui MD [address] [place] [address] PCP - General Adolescent Medicine 07/24/22 04/05/23 Heidi Rivers, ROMERO [address] [place] [address] PCP - General Nurse Practitioner 04/06/23 Neptali Bergman MD [address] [facility] [address] [place] [address] Hematology and Oncology 10/31/24 documented as of this encounter
--- OUTSIDE RECORDS SUMMARY | 2025-05-21 09:44 | XMS_ITS | Encounter Summary ---
Author Organization [employer] ([place], [place], [place], [place], [place]) Address [address] [place] [address] Care Team Providers Care Asphalt Engineer Name Role Phone Jonas Navas MD Primary Care Provider [phone] Marcell Uriostegui MD Primary Care Provider + [phone] Heidi Rivers APRN Primary Care Provider + [phone] Neptali Bergman MD Unavailable [phone] Encounter Details Date Type Department Care Team (Late st Contact Info) Description 07/20/2019 Transcribed Document [facility] [place] Family Medicine Formerly [facility], [facility] [place] [address] ProviderJennifer MD [address] [place] [address] Social History Tobacco Use Types Packs/Day Years Used Date Smoking Tobacco: Never Assessed Comments Unknown Sex and Gender Information Value Date Recorded Sex Assigned at Not on file Legal Sex Female 1:09 PM CDT Gender Identity Not on file Sexual Orientation Not on file documented as of this encounter Miscellaneous Notes * Cerner Conversion Note - Jennifer ProviderMD - 07/20/2019 1:00 PM POWER STATION OPERATOR PAT Adult Entered On: 07/20/2019 13:08 EST [...] : Standing scale Weight Entry Format : [place] Clinical Dosing Weight : 72.39 kg Weight, Pounds : 159 lb Weight, Ounces : 4 oz Body Surface Area (BSA) : 1.74 m2 Body Mass Index : 29.2 kg/m2 (HI) [place] Body Weight : 50 kg STEWART WILD RN - 07/20/2019 17:18 EST Height Source : Measured Height Entry Format : [place] STEWART WILD RN - 07/20/2019 13:00 EST [...] : Living will, Medical durable power of commonwealth attorney (proxy) STEWART WILD RN - 07/20/2019 13:00 EST Spiritual/Cultural Needs Any Spiritual/Cultural Needs or Requests : Yes Spiritual/Cultural Needs Comment : surgery on WedJuly 24 in at 0530 am Spiritual/Cult Concerns/Desires/Needs : Prayer Spiritual/Cultural Needs Comment : surgery on Tue March 3rd in at 0530 am STEWART WILD RN - 07/20/2019 13:00 EST [place] Suicide Severity Rating Scale (C-SSRS) CSSRS Past Month Wish to be : No CSSRS Past Month Suicidal Thoughts : No CSSRS Lifetime Suicide Behavior : No Suicide Severity Rating Score : 0 Suicide Severity Rating : No Additional Care Required at this time STEWART WILD RN - 07/20/2019 13:00 EST Psychosocial History Currently in Unsafe Situation : No STEWART WIDL RN - 07/20/2019 13:00 EST Education Topics, [...] Ambulatory Legal Guardian : Spouse Support Person/Patient Sports Umpire : Yes Support Person/Pt Rep Name : Ti yeh - spouse Support Person/Pt Rep Contact Information : [phone] Want Family/Rep/Phys Notified of Admit : No Emergency Contact #1 : Ti Yeh Emergency Contact #1 Emergency Contact #1 Relationship : spouse Emergency Contact #2 : na Emergency Contact #2 Phone Number : na Emergency Contact #2 Relationship : na Information Obtained From : Patient Primary Language : Turkmen Communication Barrier : None Objects to Sharing [...] - 07/20/2019 13:00 EST Electronically signed by [facility] Conversion Gasoline Pump Mechanic Cerner at 09/10/2022 12:44 AM CDT documented in this encounter Plan of Treatment Upcoming Encounters Date Type Department Care Team (Late st Contact Info) Description 11/12/2025 3:30 PM EDT Office Visit [facility] - [facility] [address] [place] [address] Neptali Bergman MD [address] [facility] [address] [place] [address] documented as of this encounter Visit Diagnoses Not on filedocumented in this encounter Care Teams Asphalt Engineer Relationship Specialty Start Date End Date Jonas Navas MD [address] [facility] [address] [place], [place] [id number] PCP - General Cardiothoracic Surgery 04/15/22 07/23/22 Marcell Uriostegui MD [address] [place] [address] [place] [address] PCP - General Adolescent Medicine 07/24/22 04/05/23 Heidi Rivers, RUBBER TURNER [address] [place] [address] PCP - General Nurse Practitioner 04/06/23 Neptali Bergman MD [address] [facility] [address] [place] [address] Hematology and Oncology 10/31/24 documented as of this encounter
--- OUTSIDE RECORDS SUMMARY | 2025-05-21 09:44 | XMS_ITS | Encounter Summary ---
Author Organization [employer] ([place], [place], [place], [place], [place]) Address [address] [place] [address] Care Team Providers Care Wire Preparation Worker Name Role Phone Jonas Navas MD Primary Care Provider [phone] Marcell Uriostegui MD Primary Care Provider + [phone] Heidi Rivers APRN Primary Care Provider + [phone] Neptali Bergman MD Unavailable [phone] Encounter Details Date Type Department Care Team (Late st Contact Info) Description 05/22/2020 Transcribed Document [facility] [place] Family [place] [address] ProviderJennifer MD [address] [place] [address] Social History Tobacco Use Types Packs/Day Years Used Date Smoking Tobacco: Never Assessed Comments Unknown Sex and Gender Information Value Date Recorded Sex Assigned at Not on file Legal Sex Female 1:09 PM CDT Gender Identity Not on file Sexual Orientation Not on file documented as of this encounter Miscellaneous Notes * Cerner Conversion Note - Historical ProviderMD - 05/22/2020 3:57 PM CROSSBOW MAKER Admission History, Adult Entered On: 05/22/2020 18:03 EST Performed On: 05/22/2020 18:00 EST by LATESHA KIM Advance Directive Patient has Advance Directive *Q : Yes, Advance Directive on file Advance Directive Type : Living will, Medical durable power of assembly adjuster (proxy) Medical Durable Power of Production Tester Name : Yayo Yeh Copy Advance Directive [...] Spouse Legal Guardian : No Support Person/Patient Case Management Social Worker : Yes Support Person/Pt Rep Name : Ti Yeh - spouse Contact Password : [facility] Support Person/Pt Rep Contact Information : [phone] Want Family/Rep/Phys Notified of Admit : No Emergency Contact #1 : Ti Yeh Emergency Contact #1 ` Emergency Contact #1 Relationship : spouse` Emergency Contact #2 : none` Emergency Contact #2 Phone Number : none` Emergency Contact #2 Relationship : none` Information Obtained From : Patient Primary Language : American Communication Barrier : None Labor Contract Analyst Needed : No JAMAR KIMANA LAURA [address] [...] Scale Risk Level : 25-45 Medium Risk [place] Fall Interventions : Adequate lighting, Assistive devices [...] Smokeless Tobacco Status : Never Implant/Device Type, One Piece Expansion Maker Hand and Model : none LATESHA KIM - [...] Source : Measured Height Entry Format : [place] Height, Feet : 0 ft(Converted to: 0 cm, 0 Inch) Height, Inches : 61 Inch(Converted to: 5 ft 1 Inch, 154.94 cm) Clinical Height : 154.94 cm Weight Source : Standing scale Weight Entry Format : [place] Clinical Dosing Weight : 79.09 kg Weight, Pounds : 174 lb Body Surface Area (BSA) : 1.78 m2 Body Mass Index : 32.9 kg/m2 (HI) [place] Body Weight : 47 kg LATESHA KIM [...] Risk Level : Patient not at risk JULIO LATESHA 05/22/2020 20:11 EST [place] Suicide Severity Rating Scale (C-SSRS) CSSRS Past [...] him JULIO LATESHA - 05/22/2020 20:11 EST documented in this encounter Plan of Treatment Upcoming Encounters Date Type Department Care Team (Late st Contact Info) Description 11/12/2025 3:30 PM EDT Office Visit [facility] - [place] [address] [place] [address] Neptali Bergman MD [address] [facility] [address] [place] [address] documented as of this encounter Visit Diagnoses Not on filedocumented in this encounter Care Teams Wire Preparation Worker Relationship Specialty Start Date End Date Jonas Navas MD [address] [facility] [address] [place] [address] PCP - General Cardiothoracic Surgery 04/15/22 07/23/22 Marcell Uriostegui MD [address] [place] [address] PCP - General Adolescent Medicine 07/24/22 04/05/23 Heidi Rivers APRN [address] [facility] [address] [place], [place] [address] PCP - General Nurse Practitioner 04/06/23 Neptali Bergman MD [address] [facility] [address] [place] [address] Hematology and Oncology 10/31/24 documented as of this encounter
--- OUTSIDE RECORDS SUMMARY | 2025-05-21 09:44 | XMS_ITS | Encounter Summary ---
Author Organization [employer] ([place], [place], [place], [place], [place]) Address [address] [place] [address] Care Team Providers Care Watch Dial Maker Name Role Phone Jonas Navas MD Primary Care Provider [phone] Marcell Uriostegui MD Primary Care Provider + [phone] Heidi Rivers APRN Primary Care Provider + [phone] Neptali Bergman MD Unavailable [phone] Encounter Details Date Type Department Care Team (Late st Contact Info) Description 05/22/2020 Transcribed Document [facility] [place] Family Medicine [address] [place] [address] ProviderJennifer MD [address] [place] [address] Social History Tobacco Use Types Packs/Day Years Used Date Smoking Tobacco: Never Assessed Comments Unknown Sex and Gender Information Value Date Recorded Sex Assigned at Not on file Legal Sex Female 1:09 PM CDT Gender Identity Not on file Sexual Orientation Not on file documented as of this encounter Miscellaneous Notes * Cerner Conversion Note - Jennifer ProviderMD - 05/22/2020 1:59 PM JEWELRY CONSULTANT [facility] Main OR Preop Summary Primary Physician: HEIDY GAYTAN MD-SNU Finalized Date/Time: 05/22/20 14:46:18 Pt. Name: ALEJANDRINA YEH /Sex: 1955 Female Med Rec #: [id number] Physician: HEIDY GAYTAN MD-[facility] Financial #: [id number] Pt. Type: P Room/Bed: / Admit/Disch: 03/21/20 10:45:00 - Institution: [facility] PreOp Case Times Entry 1 In Preop 05/22/20 09:59:00 Ready for Holding n/a Room Patient Ready for 05/22/20 10:51:00 Surgery Patient Out of Preop 05/22/20 13:25:00 Patient Out of n/a Holding Room Last Modified By: Cesario Arteaga Rn 05/22/20 14:46:[address] [facility] PreOp Case Times Audit 05/22/20 14:46:15 Senior Controls Technician: [id number] Modifier: [id number] <+> 1 Patient Out of Preop 05/22/20 10:54:31 Senior Controls Technician: [id number] Modifier: [id number] <+> 1 Patient Ready for Surgery Finalized By: Cesario Arteaga Rn Document Signatures Signed By: Cesario Arteaga Rn 05/22/20 14:46 Electronically signed by Hossein [facility] Conversion Fan Balancer Cerner at 09/10/2022 12:31 AM CDT documented in this encounter Plan of Treatment Upcoming Encounters Date Type Department Care Team (Late st Contact Info) Description 11/12/2025 3:30 PM EDT Office Visit [facility] - [address] [place] [phone] Neptali Bergman MD [address] [facility] [address] [place] [address] documented as of this encounter Visit Diagnoses Not on filedocumented in this encounter Care Teams Watch Dial Maker Relationship Specialty Start Date End Date Jonas Navas MD [address] [facility] [address] [place] [address] PCP - General Cardiothoracic Surgery 04/15/22 07/23/22 Marcell Uriostegui MD [address] [place] [address] PCP - General Adolescent Medicine 07/24/22 04/05/23 Heidi Rivers APRN [address] [facility] [address] [place] [address] PCP - General Nurse Practitioner 04/06/23 Neptali Bergman MD [address] [facility] [address] [place] [address] Hematology and Oncology 10/31/24 documented as of this encounter
--- OUTSIDE RECORDS SUMMARY | 2025-05-21 09:44 | XMS_ITS | Encounter Summary ---
Author Organization [employer] ([place], [place], [place], [place], [place]) Address [address] [place] [address] Care Team Providers Care Entry Clerk Name Role Phone Jonas Navas MD Primary Care Provider [phone] Marcell Uriostegui MD Primary Care Provider + [phone] Heidi Rivers APRN Primary Care Provider + [phone] Neptali Bergman MD Unavailable Encounter Details Date Type Department Care Team (Late st Contact Info) Description 07/10/2019 Transcribed Document [facility] [place] Family Medicine [address] [place] [address] ProviderJennifer MD [address] [place] [address] Social History Tobacco Use Types Packs/Day Years Used Date Smoking Tobacco: Never Assessed Comments Unknown Sex and Gender Information Value Date Recorded Sex Assigned at Not on file Legal Sex Female 1:09 PM CDT Gender Identity Not on file Sexual Orientation Not on file documented as of this encounter Miscellaneous Notes * Cerner Conversion Note - Jennifer ProviderMD - 07/10/2019 10:36 AM PROCESS COACH Patient: ALEJANDRINA YEH Age: 63 years Sex: Female : 1955 Associated Diagnoses: None Author: CHARLES JOHNSTON PA-C Pre-OP/Procedure Diagnosis: Lung mass Post-OP/Procedure Diagnosis: Same Procedure Performed: CT guided biopsy Procedural MD: Monserrat Dba Manager: Charles Johnston PA-C Sedation: Procedural Sedation Findings: Technically successful biopsy Complications: Small pneumothorax. Will obtain f/u CXR EBL: Minimal Specimen(s) Removed: FNAs and cores. Pathology is pending. Full report to follow. documented in this encounter Plan of Treatment Upcoming Encounters Date Type Department Care Team (Late st Contact Info) Description 11/12/2025 3:30 PM EDT Office Visit [facility] - [place] [address] [place] [address] Neptali Bergman MD [address] [facility] [address] [place] [address] documented as of this encounter Visit Diagnoses Not on filedocumented in this encounter Care Teams Entry Clerk Relationship Specialty Start Date End Date Jonas Navas MD [address] [facility] [address] [place] [address] PCP - General Cardiothoracic Surgery 04/15/22 07/23/22 Marcell Uriostegui MD [address] [place] [address] [place], [place] [address] PCP - General Adolescent Medicine 07/24/22 04/05/23 Heidi Rivers, DATAPOWER CONSULTANT [address] [place] [address] PCP - General Nurse Practitioner 04/06/23 Neptali Bergman MD [address] [facility] [address] [place] [address] Hematology and Oncology 10/31/24 documented as of this encounter
--- OUTSIDE RECORDS SUMMARY | 2025-05-21 09:44 | XMS_ITS | Encounter Summary ---
Author Organization [employer] ([place], [place], [place], [place], [place]) Address [address] [place] [address] Care Team Providers Care Snow Remover Name Role Phone Jonas Navas MD Primary Care Provider [phone] Marcell Uriostegui MD Primary Care Provider + [phone] Heidi Rivers APRN Primary Care Provider + [phone] Neptali Bergman MD Unavailable [phone] Encounter Details Date Type Department Care Team (Late st Contact Info) Description 05/22/2020 Transcribed Document [facility] [facility]ly [facility] [place] [address] ProviderJennifer MD [address] [place] [address] Social History Tobacco Use Types Packs/Day Years Used Date Smoking Tobacco: Never Assessed Comments Unknown Sex and Gender Information Value Date Recorded Sex Assigned at Not on file Legal Sex Female 1:09 PM CDT Gender Identity Not on file Sexual Orientation Not on file documented as of this encounter Miscellaneous Notes * Cerner Conversion Note - Jennifer ProviderMD - 05/22/2020 4:51 PM ELECTRIC WHEELCHAIR REPAIRER Family/Agency/Support Person Communication Entered On: 05/22/2020 16:52 EST Performed On: 05/22/2020 16:51 EST by Elza Cedeno, Bolt Loader/Agency/Support Person Communication Date/Time of Communication : 05/22/2020 16:51 EST Communicated with : Spouse Communication Details : debi abel, patients the new location of [facility]. Elaz Cedeno, Rn - 05/22/2020 16:51 EST Electronically signed by Hossein [facility] Conversion Supervisor Shaving And Splitting Cerner at 09/10/2022 12:39 AM CDT documented in this encounter Plan of Treatment Upcoming Encounters Date Type Department Care Team (Late st Contact Info) Description 11/12/2025 3:30 PM EDT Office Visit [facility] [facility] - [facility] [address] [facility] [address] [place] [address] Neptali Bergman MD [facility] [facility] [address] [place] [address] documented as of this encounter Visit Diagnoses Not on filedocumented in this encounter Care Teams Snow Remover Relationship Specialty Start Date End Date Jonas Navas MD [address] [facility] [address] [place] [address] PCP - General Cardiothoracic Surgery 04/15/22 07/23/22 Marcell Uriostegui MD [address] [place] [address] PCP - General Adolescent Medicine 07/24/22 04/05/23 Heidi Rivers, FIRST BEATER [address] [place] [address] PCP - General Nurse Practitioner 04/06/23 Neptali Bergman MD [address] [facility] [address] [place] [address] Hematology and Oncology 10/31/24 documented as of this encounter
--- OUTSIDE RECORDS SUMMARY | 2025-05-21 09:44 | XMS_ITS | Encounter Summary ---
Author Organization [employer] ([place], [place], [place], [place], [place]) Address [address] [place] [address] Care Team Providers Care Lead Android Developer Name Role Phone Blaze Navas MD Primary Care Provider [phone] Marcell Uriostegui MD Primary Care Provider + [phone] Heidi Rivers APRN Primary Care Provider + [phone] Neptali Bergman MD Unavailable Encounter Details Date Type Department Care Team (Late st Contact Info) Description 07/25/2019 Transcribed Document [facility] [place] [facility] [place] [address] ProviderJennifer MD [address] [place] [address] Social History Tobacco Use Types Packs/Day Years Used Date Smoking Tobacco: Never Assessed Comments Unknown Sex and Gender Information Value Date Recorded Sex Assigned at Not on file Legal Sex Female 1:09 PM CDT Gender Identity Not on file Sexual Orientation Not on file documented as of this encounter Miscellaneous Notes * Cerner Conversion Note - Jennifer ProviderMD - 07/25/2019 8:34 AM NUTRITIONIST [facility] Main OR IntraOp Summary Primary Physician: BLAZE NAVAS MD-CAT Finalized Date/Time: 07/26/19 11:44:04 Pt. Name: ALEJANDRINA YEH /Sex: 1955 Female Med Rec #: [id number] Physician: BLAZE NAVAS MD-CAT Financial #: [id number] Pt. Type: I Room/Bed: [facility] Admit/Disch: 07/25/19 07:00:00 - Institution: [facility] IntraOp Case Attendance Entry 1 Entry 2 Entry 3 Case Attendee BLAZE NAVAS MD-CAT GHANSAH, NANA DADZIE, Proffitt, Debbie, RN MD-ANS Role Performed Surgeon/Proceduralist, Anesthesiologist Pharmacist, First First Time In 07/25/19 07:20:00 07/25/19 [...] PEREZ, DIXIE BALDERAS PAUL, PA Role Performed Pharmacist, Second Scrub, First Physician assistant professor in family studies Time In 07/25/19 07:20:00 07/25/19 07:20:00 07/25/19 [...] DIXIE BALDERAS LISA E, RN Role Performed Pharmacist, First Scrub, First Pharmacist, Second Time In 07/25/19 09:22:00 07/25/19 09:51:00 07/25/19 09:51:00 Time Out 07/25/19 10:53:00 07/25/19 10:53:00 07/25/19 10:53:00 Procedure Thoracotomy/Lobectomy, Thoracotomy/Lobectomy, Thoracotomy/Lobectomy, Lymphadenectomy Lymphadenectomy Lymphadenectomy Other Attendee Superficial Wound Closed By: Last Modified By: Roxy Gunter, Roxy Amador, Roxy Amador, ASHLEY 07/25/19 10:54:03 07/25/19 10:54:03 07/25/19 10:54:03 [facility] IntraOp Case Attendance Audit 07/25/19 10:54:03 Educational Administrator: PROFITDE Modifier: PROFITDE 1 <+> Time Out [...] 12 <*> Procedure Thoracotomy/Lobectomy, Lymphadenectomy 07/25/19 10:20:12 Educational Administrator: PROFITDE Modifier: PROFITDE 1 <*> Procedure Thoracotomy/Lobectomy 2 <*> Procedure Thoracotomy/Lobectomy 3 <*> Procedure Thoracotomy/Lobectomy 4 <*> Procedure Thoracotomy/Lobectomy 5 <*> Procedure Thoracotomy/Lobectomy 6 <*> Procedure Thoracotomy/Lobectomy 7 <*> Procedure Thoracotomy/Lobectomy 8 <*> Procedure Thoracotomy/Lobectomy 9 <*> Procedure Thoracotomy/Lobectomy 10 <*> Procedure Thoracotomy/Lobectomy 11 <*> Procedure Thoracotomy/Lobectomy 12 <*> Procedure Thoracotomy/Lobectomy 07/25/19 09:53:07 Educational Administrator: PROFITDE Modifier: PROFITDE 9 <+> Time Out 9 <*> Procedure Thoracotomy/Lobectomy 07/25/19 09:51:45 Educational Administrator: PROFITDE Modifier: PROFITDE 4 <+> Time Out 4 <*> Procedure Thoracotomy/Lobectomy <+> 11 Case Attendee <+> 11 Role Performed <+> 11 Time In <+> 11 Procedure <+> 12 Case Attendee <+> 12 Role Performed <+> 12 Time In <+> 12 Procedure 07/25/19 09:23:40 Educational Administrator: PROFITDE Modifier: PROFITDE 3 <*> Procedure Thoracotomy/Lobectomy [...] Time In <+> 10 Procedure 07/25/19 09:17:45 Educational Administrator: PROFITDE Modifier: PROFITDE 2 <+> Time Out 2 <*> Procedure Thoracotomy/Lobectomy <+> 7 Case Attendee <+> 7 Role Performed <+> 7 Time In <+> 7 Procedure 07/25/19 07:46:41 Educational Administrator: PROFITDE Modifier: PROFITDE <+> 1 Procedure 2 <*> Procedure Thoracotomy/Lobectomy 3 <*> Procedure Thoracotomy/Lobectomy 4 <*> Procedure Thoracotomy/Lobectomy 5 <*> Procedure Thoracotomy/Lobectomy 6 <*> Procedure Thoracotomy/Lobectomy 07/25/19 07:41:41 Educational Administrator: PROFITDE Modifier: PROFITDE <+> 5 Procedure <+> 6 Case Attendee <+> 6 Role Performed <+> 6 Time In <+> 6 Procedure [facility] IntraOp Case Times Entry 1 Patient In Room Time 07/25/19 07:20:00 Out Room Time 07/25/19 10:53:00 Anesthesia Start Time 07/25/19 07:20:00 Stop Time 07/25/19 10:53:00 Anesthesia Ready 07/25/19 07:20:00 Surgery / Procedure Times Start Time 07/25/19 08:34:00 Stop Time 07/25/19 10:31:00 Last Modified By: Roxy Gunter RN 07/25/19 07:40:18 [facility] IntraOp Case Times Audit 07/25/19 10:53:59 Educational Administrator: PROFITDE Modifier: PROFITDE <+> 1 Out Room Time <+> 1 Stop Time 07/25/19 10:30:38 Educational Administrator: PROFITDE Modifier: PROFITDE <+> 1 Stop Time 07/25/19 08:35:00 Educational Administrator: PROFITDE Modifier: PROFITDE <+> 1 Start Time [facility] IntraOp Cautery Entry 1 ESU Identification Cautery Type Monopolar ESU Cautery Type SURGEON OPERATES Comments SETTINGS ID Number [id number] ID Type Hospital Number Cautery Settings ESU Grounding Pad Ground Pad Type Adult Grounding Pad Site Left thigh Grounding Pad Roxy Gunter RN Applied By Grounding Pad Site Warm, Dry, Intact Skin Condition Before Cautery Site Skin Condition WDL Before Comment Grounding Pad Site Unchanged Skin Condition After Cautery Site Skin Condition WDL After Comment Last Modified By: Roxy Gunter RN 07/25/19 07:43:24 [facility] IntraOp Communication Entry 1 Entry 2 [...] Modified By: Roxy Gunter RN 07/25/19 10:20:30 [facility] IntraOp Communication Audit 07/25/19 10:20:30 Educational Administrator: PROFITDE Modifier: PROFITDE <+> 4 Communication By <+> 4 Date and Time <+> 4 Communication To <+> 4 Comment 07/25/19 09:28:10 Educational Administrator: PROFITDE Modifier: PROFITDE <+> 3 Communication By <+> 3 Date and Time <+> 3 Communication To <+> 3 Comment 07/25/19 08:34:35 Educational Administrator: PROFITDE Modifier: PROFITDE <+> 2 Communication By <+> 2 Date and Time <+> 2 Communication To <+> 2 Comment [facility] IntraOp Counts Verification Entry 1 Entry [...] RN 07/25/19 07:42:29 07/25/19 07:42:29 07/25/19 10:08:36 [facility] IntraOp Counts Verification Audit 07/25/19 10:20:16 Educational Administrator: PROFITDE Modifier: PROFITDE 1 <*> Procedure Thoracotomy/Lobectomy 2 <*> Procedure Thoracotomy/Lobectomy 3 <*> Procedure Thoracotomy/Lobectomy 07/25/19 10:08:36 Educational Administrator: PROFITDE Modifier: PROFITDE <+> 3 Procedure <+> 3 Count Type <+> 3 Counts Verification Sequence <+> 3 Count Results <+> 3 Count Performed By (Scrub) <+> 3 Count Performed By (RN) [facility] IntraOp Counts Final Entry 1 Procedure Thoracotomy/Lobectomy, Lymphadenectomy Final Count Info Count Type Sponge, Sharps, Miscellaneous Counts Verification Skin Closure/end of Sequence procedure Count Results Correct, surgeon notified Counts Performed By Count Performed By DIXIE MARKS (Scrub) Count Performed By Roxy Gunter RN (RN) Last Modified By: Roxy Gunter RN 07/25/19 10:26:26 [facility] IntraOp Cultures and Spec Summary Entry 1 Cultrures and Specimens Specimen Ordered: Yes Test(s) Routine/Path-Lab Requested/Final Disposition Last Modified By: Roxy Gunter RN 07/25/19 08:36:13 [facility] IntraOp Departure from OR Entry 1 Integumentary Assessment Integumentary WDL with patient Assessment WDL specific variances Patient's Normal INCISIONS Integumentary Variance(s) Transfer/Handoff Transfer to PACU Phase I Handoff Method Bedside/Face to face Handoff Reported to NORI AKERS RN Post-op Transport Bed (including Via specialty) Patient Transport JILLIAN DIAZ, Accompanied by NOELLE BABCOCK PAUL PA Last Modified By: Roxy Gunter RN 07/25/19 10:18:35 [facility] IntraOp Departure from OR Audit 07/25/19 10:18:35 Educational Administrator: PROFITDE Modifier: PROFITDE 1 <*> Handoff Reported to LINETTE GENTILE RN [facility] IntraOp Drains and Tubes Entry 1 Device Type Chest Tube Size 32 FR Drain/Tube Activity Tube secured/stabilized, Inserted Device Location chest, operative side Method of Drainage Continuous suction Chest Tubes Water-Seal 20 cm suction Connectivity Tube Dressing Dry, Intact Condition Last Modified By: Roxy Gunter RN 07/25/19 08:40:07 [facility] IntraOp Drains and Tubes Audit 07/25/19 10:30:57 Educational Administrator: PROFITDE Modifier: PROFITDE <+> 1 Size [facility] IntraOp Dressing and Packing Entry 1 Type Dressing Wound Dressing Item Occlusive dressing Applied By ANGELIQUE DRAKE PA Other Comments AQUACEL, TEGADERM Last Modified By: Roxy Gunter RN 07/25/19 10:19:17 [facility] IntraOp Dressing and Packing Audit 07/25/19 10:31:06 Educational Administrator: PROFITDE Modifier: PROFITDE 1 <*> Wound Dressing Item 4x4's, Occlusive dressing 07/25/19 10:19:17 Educational Administrator: PROFITDE Modifier: PROFITDE 1 <*> Other Comments TEGADERM [facility] IntraOp Fire Risk Assessment Entry 1 [...] Modified By: Roxy Gunter RN 07/25/19 07:41:55 [facility] IntraOp General Case Park Landscape Architect 1 Case Information OR OR 14 [facility] Case Level 1 Room Verified Yes Wound Class II - Clean-Contaminated Specialty SN Cardio Thoracic ASA Class 3 Diagnosis Preop Diagnosis LUNG CANCER Postop Same As Preop Yes Postop Diagnosis LUNG CANCER Last Modified By: Roxy Gunter RN 07/25/19 07:42:49 [facility] IntraOp General Case Data Audit 07/25/19 07:42:49 Educational Administrator: PROFITDE Modifier: PROFITDE <+> 1 Specialty <+> 1 ASA Class <+> 1 Case Level <+> 1 Wound Class <+> 1 Postop Same As Preop <+> 1 Preop Diagnosis <+> 1 Postop Diagnosis <+> 1 Room Verified [facility] IntraOp Intraoperative Assessment Entry 1 Handoff [...] Modified By: Roxy Gunter RN 07/25/19 07:43:52 [facility] IntraOp Intraoperative Equipment Entry 1 Equipment Intraop Monitoring Electrocardiogram Five lead placement (ECG) Electrode Placement Blood Pressure Arterial Pressure Line Source Blood Pressure Arterial Location Pulse Oximeter Hand, right Probe Site Antiembolic Devices Antiembolic Devices Sequential compression device, knee high Antiembolic Device Bilateral Location Antiembolic Device [id number] ID Number Antiembolic Device LEGS Setting Scopes Photo/Video Documentation Intraop Equipment SCD'S ON AND Comment FUNCTIONING PRIOR INDUCTION OF ANESTHESIA Last Modified By: Roxy Gunter RN 07/25/19 07:52:51 [facility] IntraOp Intraoperative Equipment Audit 07/25/19 07:53:20 Educational Administrator: PROFITDE Modifier: PROFITDE <+> 1 Intraop Equipment Comment [facility] IntraOp Medication Admin Entry 1 Medication/Irrigant NICK IRR STRL H2O 1500ML [id number] Dose Dose 1000 Unit of Measure ml Administered By BLAZE NAVAS MD-CAT Procedure Irrigation Last Modified By: Roxy Gunter RN 07/25/19 07:44:24 [facility] IntraOp Patient Positioning Entry 1 Procedure [...] Verified by Surgeon Last Modified By: Roxy Gunter RN 07/25/19 07:45:26 [facility] IntraOp Patient Positioning Audit 07/25/19 10:20:16 Educational Administrator: PROFITDE Modifier: PROFITDE 1 <*> Procedure Thoracotomy/Lobectomy [facility] IntraOp Sign In Entry 1 Patient, [...] Modified By: Roxy Gunter RN 07/25/19 07:41:51 [facility] IntraOp Sign Out Entry 1 RN [...] Modified By: Roxy Gunter RN 07/25/19 08:40:46 [facility] IntraOp Sign Out Audit 07/25/19 10:54:12 Educational Administrator: PROFITDE Modifier: PROFITDE <+> 1 RN Sign Out Signature Date/Time [facility] IntraOp Skin Prep Entry 1 Procedure Thoracotomy/Lobectomy Prescribed Yes Pre-Surgical Prep Completed Prep Area Operative side, chest laterally, anterior & posterior, shoulder to waist Intraop Prep Integumentary WDL Assessment WDL Prep Agents Iodine Prep by NILSON PEREZ RN Hair Removal Last Modified By: Roxy Gunter RN 07/25/19 08:35:29 [facility] IntraOp Skin Prep Audit 07/25/19 10:20:17 Educational Administrator: PROFITDE Modifier: PROFITDE 1 <*> Procedure Thoracotomy/Lobectomy [facility] IntraOp Surgical Procedures Entry 1 Entry [...] Proffitt, Debbie, RN 07/25/19 10:26:40 07/25/19 10:20:06 [facility] IntraOp Surgical Procedures Audit 07/25/19 10:54:15 Educational Administrator: PROFITDE Modifier: PROFITDE <+> 1 Stop <+> 2 Stop 07/25/19 10:26:40 Educational Administrator: PROFITDE Modifier: PROFITDE 1 <*> Procedure Thoracotomy/Lobectomy 1 <*> Additional Procedure Description LEFT THORACOTOMY, LEFT UPPER LOBECTOMY,THORACIC LYMPHADENECTOMY 07/25/19 10:25:58 Educational Administrator: PROFITDE Modifier: PROFITDE 1 <*> Procedure Thoracotomy/Lobectomy 1 <*> Additional Procedure Description (LT THORACOTOMY, LT UPPER LOBECTOMY) 07/25/19 10:20:06 Educational Administrator: PROFITDE Modifier: PROFITDE <+> 2 Procedure <+> 2 Primary Procedure <+> 2 Primary Surgeon <+> 2 Specialty <+> 2 Start <+> 2 Wound Class <+> 2 Anesthesia Type 07/25/19 08:41:00 Educational Administrator: PROFITDE Modifier: PROFITDE <+> 1 Start [facility] IntraOp Temp Regulation Devices Entry 1 Entry 2 Temp Regulation Temperature Warm blankets Forced Air Warming Regulation Device device Temperature 79628 Regulation Device Serial/Unit Number Temperature Full body Lower body Regulation Site Temperature Device 43 DEGREES C Setting Temperature Roxy Gunter RN Proffitt, Debbie, RN Regulation Device Applied by Temperature ON ARRIVAOL AND Regulation Comment DEPARTURE FROM THE O.R. Last Modified By: Roxy Gunter RN Proffitt, Debbie, RN 07/25/19 08:42:40 07/25/19 08:42:40 [facility] IntraOP Time Out Entry 1 Procedure [...] Modified By: Roxy Gunter RN 07/25/19 10:20:17 [facility] IntraOP Time Out Audit 07/25/19 10:20:17 Educational Administrator: PROFITDE Modifier: PROFITDE 1 <*> Procedure to be Performed Thoracotomy/Lobectomy 07/25/19 08:34:01 Educational Administrator: PROFITDE Modifier: PROFITDE 1 <+> Time Out [...] Description 11/12/2025 3:30 PM EDT Office Visit [facility] - [place] [address] [place] [phone] Neptali Bergman MD [address] [facility] [address] [place] [address] documented as of this encounter Visit Diagnoses Not on filedocumented in this encounter Care Teams Lead Android Developer Relationship Specialty Start Date End Date Blaze Navas MD [address] [facility] [address] [place] [address] PCP - General Cardiothoracic Surgery 04/15/22 07/23/22 Marcell Uriostegui MD [address] [place] [address] PCP - General Adolescent Medicine 07/24/22 04/05/23 Heidi Rivers APRN [address] [place] [address] PCP - General Nurse Practitioner 04/06/23 Neptali Bergman MD [address] [facility] [address] [place] [address] Hematology and Oncology 10/31/24 documented as of this encounter
--- OUTSIDE RECORDS SUMMARY | 2025-05-21 09:44 | XMS_ITS | Encounter Summary ---
Author Organization [employer] ([place], [place], [place], [place], [place]) Address [address] [place] [address] Care Team Providers Care Yarn Cleaner Name Role Phone Jonas Navas MD Primary Care Provider [phone] Marcell Uriostegui MD Primary Care Provider + [phone] eHidi Rivers APRN Primary Care Provider + [phone] Neptali Bergman MD Unavailable [phone] Encounter Details Date Type Department Care Team (Late st Contact Info) Description 05/23/2020 Transcribed Document [facility] Neurology - [facility] [address] [address] Dexter Mendez MD [address] [place] [address] [address] [place] [address] Social History Tobacco Use Types Packs/Day Years [...] BMI: 32.9 Physical Exam A&O incision cdi myesha urena nonlabored breathing appropriate documented in this encounter Plan of Treatment Upcoming Encounters Date Type Department Care Team (Late st Contact Info) Description 11/12/2025 3:30 PM EDT Office Visit [facility] - [address] [place] [address] Neptali Bergman MD [address] [place] [address] [address] [place] [address] documented as of this encounter Visit Diagnoses Not on filedocumented in this encounter Care Teams Yarn Cleaner Relationship Specialty Start Date End Date Jonas Navas MD [address] [facility] [address] [place], [place] [id number] PCP - General Cardiothoracic Surgery 04/15/22 07/23/22 Marcell Uriostegui MD [address] [place] [address] [place] [address] PCP - General Adolescent Medicine 07/24/22 04/05/23 Heidi Rivers, INSOLE FILLER [address] [facility] [address] [place] [address] PCP - General Nurse Practitioner 04/06/23 Neptali Bergman MD [address] [address] Hematology and Oncology 10/31/24 documented as of this encounter
--- OUTSIDE RECORDS SUMMARY | 2025-05-21 09:44 | XMS_ITS | Encounter Summary ---
Author Organization [employer] ([place], [place], [place], [place], [place]) Address [address] [place] [address] Care Team Providers Care Monogram And Letter Paster Name Role Phone Jonas Navas MD Primary Care Provider [phone] Marcell Uriostegui MD Primary Care Provider + [phone] Heidi Rivers APRN Primary Care Provider + [phone] Neptali Bergman MD Unavailable [phone] Encounter Details Date Type Department Care Team (Late st Contact Info) Description 07/21/2019 Transcribed Document [facility] [place] [facility] [place] [address] ProviderJennifer MD [address] [place] [address] Social History Tobacco Use Types Packs/Day Years Used Date Smoking Tobacco: Never Assessed Comments Unknown Sex and Gender Information Value Date Recorded Sex Assigned at Not on file Legal Sex Female 1:09 PM CDT Gender Identity Not on file Sexual Orientation Not on file documented as of this encounter Miscellaneous Notes * Cerner Conversion Note - Jennifer ProviderMD - 07/21/2019 1:39 PM CREAM GATHERER UM Authorization Entered On: 07/21/2019 13:51 EST Performed On: 07/21/2019 13:39 EST by NORI VALVERDE RN-Utilization Review Primary Insurance Authorization Authorization and Policy Numbers : Insurance 1 Health Plan: [employer] Policy Number: [id number] Authorization Number: [id number] Insurance Primary Name : [facility] Policy Number: [id number] Authorization Status-Primary : Admit approved Authorization Number-Primary : [id number] Number of Days Authorized-Primary : 3 Day(s) Authorized Service Begin Date-Primary : 07/25/2019 EST Authorized Service End Date-Primary : 07/28/2019 EST Authorization Comments-Primary : [place] approved per availity for 4 days inpt Historical Authorization Comments-Primary : No Authorization Comments Found NORI VALVERDE RN-Utilization Review - 07/21/2019 13:39 EST Electronically signed by [facility] Conversion Veneer Drier Tailer Cerner at 09/10/2022 12:35 AM CDT documented in this encounter Plan of Treatment Upcoming Encounters Date Type Department Care Team (Late st Contact Info) Description 11/12/2025 3:30 PM EDT Office Visit [facility] - [address] [place] [phone] [place] [address] [place] [address] [address] [place] [address] documented as of this encounter Visit Diagnoses Not on filedocumented in this encounter Care Teams Monogram And Letter Paster Relationship Specialty Start Date End Date Jonas Navas MD [address] [facility] [address] [place] [address] PCP - General Cardiothoracic Surgery 04/15/22 07/23/22 Marcell Uriostegui MD [address] [place] [address] PCP - General Adolescent Medicine 07/24/22 04/05/23 Heidi Rivers APRN [address] [place] [address] PCP - General Nurse Practitioner 04/06/23 [place] [address] [place] [address] [address] [place] [address] Hematology and Oncology 10/31/24 documented as of this encounter
--- OUTSIDE RECORDS SUMMARY | 2025-05-21 09:44 | XMS_ITS | Encounter Summary ---
Author Organization [employer] ([place], [place], [place], [place], [place]) Address [address] [place] [address] Care Team Providers Care Equine Vet Name Role Phone Jonas Navas MD Primary Care Provider [phone] Marcell Uriostegui MD Primary Care Provider + [phone] Heidi Rivers APRN Primary Care Provider + [phone] Neptali Bergman MD Unavailable [phone] Encounter Details Date Type Department Care Team (Late st Contact Info) Description 05/23/2020 Transcribed Document [facility] [place] [address] ProviderJennifer MD [address] [place] [address] Social History Tobacco Use Types Packs/Day Years Used Date Smoking Tobacco: Never Assessed Comments Unknown Sex and Gender Information Value Date Recorded Sex Assigned at Not on file Legal Sex Female 1:09 PM CDT Gender Identity Not on file Sexual Orientation Not on file documented as of this encounter Miscellaneous Notes * Cerner Conversion Note - Jennifer ProviderMD - 05/23/2020 12:55 PM IT SERVICE DELIVERY MANAGER UM Authorization Entered On: 05/23/2020 12:57 EST Performed On: 05/23/2020 12:55 EST by Georgina Draper Rn-Utilization Review Primary Insurance Authorization Authorization and Policy Numbers : Insurance 1 Health Plan: [employer] Policy Number: [id number] Authorization Number: [id number] Insurance Primary Name : [facility] Policy Number: [id number] Authorization Status-Primary : Awaiting callback Reference Number-Primary : [id number] Authorization Number-Primary : [id number] Number of Days Authorized-Primary : 0 Day(s) Authorized Service Begin Date-Primary : 05/22/2020 EST Authorized Service End Date-Primary : 05/22/2020 EST Authorization Comments-Primary : CLINICAL FAXED FOR JUSTIN/LOS Historical Authorization Comments-Primary : Comment 1: [place] approved per availity for 1 day inpt (NORI VALVERDE, RN-Utilization Review 05/21/2020 11:15) Georgina Draper Rn-Utilization Review - 05/23/2020 12:55 EST Electronically signed by [facility] Conversion Delivery Representative Cerner at 09/10/2022 12:31 AM CDT documented in this encounter Plan of Treatment Upcoming Encounters Date Type Department Care Team (Late st Contact Info) Description 11/12/2025 3:30 PM EDT Office Visit [facility] - [address] [place] [phone] Neptali Bergman MD [address] [place] [address] [address] [place] [address] documented as of this encounter Visit Diagnoses Not on filedocumented in this encounter Care Teams Equine Vet Relationship Specialty Start Date End Date Jonas Navas MD [address] [facility] [address] [place], [place] [id number] PCP - General Cardiothoracic Surgery 04/15/22 07/23/22 Marcell Uriostegui MD [address] [place] [address] [place] [address] PCP - General Adolescent Medicine 07/24/22 04/05/23 Heidi Rivers, APPLICATION COUNSELOR [address] [facility] [address] [place] [address] PCP - General Nurse Practitioner 04/06/23 Neptali Bergman MD [address] [place] [address] [address] [place] [address] Hematology and Oncology 10/31/24 documented as of this encounter
--- OUTSIDE RECORDS SUMMARY | 2025-05-21 09:44 | XMS_ITS | Encounter Summary ---
Author Organization [employer] ([place], [place], [place], [place], [place]) Address [address] [place] [address] Care Team Providers Care Kennel Technician Name Role Phone Jonas Navas MD Primary Care Provider [phone] Marcell Uriostegui MD Primary Care Provider + [phone] Heidi Rivers APRN Primary Care Provider + [phone] Neptali Bergman MD Unavailable [phone] Encounter Details Date Type Department Care Team (Late st Contact Info) Description 05/22/2020 Transcribed Document [facility] [place] [address] [place] [address] ProviderJennifer MD [address] [place] [address] Social History Tobacco Use Types Packs/Day Years Used Date Smoking Tobacco: Never Assessed Comments Unknown Sex and Gender Information Value Date Recorded Sex Assigned at Not on file Legal Sex Female 1:09 PM CDT Gender Identity Not on file Sexual Orientation Not on file documented as of this encounter Miscellaneous Notes * Cerner Conversion Note - Jennifer ProviderMD - 05/22/2020 6:00 PM SENIOR WINDOWS SYSTEMS ENGINEER Pain Assessment Entered On: 05/22/2020 20:11 EST Performed On: 05/22/2020 18:36 EST by LATESHA KIM Intervention Information: acetaminophen Performed by LATESHA KIM on 05/22/2020 17:36:00 EST acetaminophen,650mg Oral Pain Assessment Pain Scale Goal : 3 Pain Comment : scheduled tylenol no change in pain level from previous assesmnebt LATESHA KIM - 05/22/2020 20:10 EST Electronically signed by Hossein, [facility] Conversion Electric Engine Mechanic Cerner at 09/10/2022 12:34 AM CDT documented in this encounter Plan of Treatment Upcoming Encounters Date Type Department Care Team (Late st Contact Info) Description 11/12/2025 3:30 PM EDT Office Visit [facility] [address] [place] [phone] Neptali Bergman MD [address] [place] [address] [address] [place] [address] documented as of this encounter Visit Diagnoses Not on filedocumented in this encounter Care Teams Kennel Technician Relationship Specialty Start Date End Date Jonas Navas MD [address] [facility] [address] [place], [place] [id number] PCP - General Cardiothoracic Surgery 04/15/22 07/23/22 Marcell Uriostegui MD [address] [place] [address] [place] [address] PCP - General Adolescent Medicine 07/24/22 04/05/23 Heidi Rivers, STONE GRADER [address] [place] [address] PCP - General Nurse Practitioner 04/06/23 Neptali Bergman MD [address] [facility] [address] [place] [address] Hematology and Oncology 10/31/24 documented as of this encounter
--- OUTSIDE RECORDS SUMMARY | 2025-05-21 09:44 | XMS_ITS | Encounter Summary ---
Author Organization [employer] ([place], [place], [place], [place], [place]) Address [address] [place] [address] Care Team Providers Care [address] Sweeper Operator Name Role Phone Jonas Navas MD Primary Care Provider [phone] Marcell Uriostegui MD Primary Care Provider + [phone] Heidi Rivers APRN Primary Care Provider + [phone] Neptali Bergmna MD Unavailable [phone] Encounter Details Date Type Department Care Team (Late st Contact Info) Description 07/10/2019 Transcribed Document [facility] [place] Family Medicine [address] [place] [address] ProviderJennifer MD [address] [place] [address] Social History Tobacco Use Types Packs/Day Years Used Date Smoking Tobacco: Never Assessed Comments Unknown Sex and Gender Information Value Date Recorded Sex Assigned at Not on file Legal Sex Female 1:09 PM CDT Gender Identity Not on file Sexual Orientation Not on file documented as of this encounter Miscellaneous Notes * Cerner Conversion Note - Jennifer ProviderMD - 07/10/2019 12:44 PM PRODUCTION CONTROL MANAGER Nursing Discharge Summary Entered On: 07/10/2019 12:44 EST Performed On: 07/10/2019 12:44 EST by AMARILYS DIAZ, dye weigher Documentation Discharge Date/Time : 07/10/2019 13:20 EST [...] - 07/10/2019 12:44 EST Electronically signed by [facility] Conversion Home Appraiser Cerner at 09/10/2022 12:45 AM CDT documented in this encounter Plan of Treatment Upcoming Encounters Date Type Department Care Team (Late st Contact Info) Description 11/12/2025 3:30 PM EDT Office Visit [place] [facility] - [address] [place] [address] Neptali Bergman MD [address] [place] [address] [address] [place] [address] documented as of this encounter Visit Diagnoses Not on filedocumented in this encounter Care Teams Street Sweeper Operator Relationship Specialty Start Date End Date Jonas Navas MD [address] [facility] [address] [id number] PCP - General Cardiothoracic Surgery 04/15/22 07/23/22 Marcell Uriostegui MD [address] [place] [address] PCP - General Adolescent Medicine 07/24/22 04/05/23 Heidi Rivers, ROMERO [address] [facility] [address] [place] [address] PCP - General Nurse Practitioner 04/06/23 Neptali Bergman MD [address] [facility] [address] [place] [address] Hematology and Oncology 10/31/24 documented as of this encounter
--- OUTSIDE RECORDS SUMMARY | 2025-05-21 09:44 | XMS_ITS | Encounter Summary ---
Author Organization [employer] ([place], [place], [place], [place], [place]) Address [address] [place] [address] Care Team Providers Care Gift Packer Name Role Phone Jonas Navas MD Primary Care Provider [phone] Marcell Uriostegui MD Primary Care Provider + [phone] Heidi Rivers APRN Primary Care Provider + [phone] Neptali Bergman MD Unavailable [phone] Encounter Details Date Type Department Care Team (Late st Contact Info) Description 05/22/2020 Transcribed Document [facility] [place] [address] [place] [address] ProviderJennifer MD [address] [place] [address] Social History Tobacco Use Types Packs/Day Years Used Date Smoking Tobacco: Never Assessed Comments Unknown Sex and Gender Information Value Date Recorded Sex Assigned at Not on file Legal Sex Female 1:09 PM CDT Gender Identity Not on file Sexual Orientation Not on file documented as of this encounter Miscellaneous Notes * Cerner Conversion Note - Jennifer ProviderMD - 05/22/2020 2:00 AM MANAGER ENTERPRISE CONTENT MANAGEMENT Spiritual Care Assessment Entered On: 05/22/2020 11:34 EST Performed On: 05/22/2020 11:28 EST by LINSEY ROSALES General Information Referred by : Patient Referral Reason Comment : PreSurgery prayer Ministry Provided to : Patient Catholic Preference : Baptism ([employer]) LINSEY ROSALES - 05/22/2020 11:33 EST Interventions Emotional Support : Empathic/Engaged listening, Feelings expressed Spiritual and Catholic : Prayer shared, Spiritual/Catholic support provided LINSEY ROSALES - 05/22/2020 11:33 EST Outcomes Affect/Behavior Changed : Encouraged Appreciation Expressed : Yes Thoughts, Feelings and Emotions Exp. : Yes LINSEY ROSALES - 05/22/2020 11:33 EST documented in this encounter Plan of Treatment Upcoming Encounters Date Type Department Care Team (Late st Contact Info) Description 11/12/2025 3:30 PM EDT Office Visit [place] [facility] - [place] [address] [place] [address] Neptali Bergman MD [address] [facility] [address] [place] [address] documented as of this encounter Visit Diagnoses Not on filedocumented in this encounter Care Teams Gift Packer Relationship Specialty Start Date End Date Jonas Navas MD [address] [facility] [address] [place], [place] [id number] PCP - General Cardiothoracic Surgery 04/15/22 07/23/22 Marcell Uriostegui MD [address] [place] [address] [place] [address] PCP - General Adolescent Medicine 07/24/22 04/05/23 Heidi Rivers, ROMERO [address] [place] [address] PCP - General Nurse Practitioner 04/06/23 Neptali Bermgan MD [address] [facility] [address] [place] [address] Hematology and Oncology 10/31/24 documented as of this encounter
--- OUTSIDE RECORDS SUMMARY | 2025-05-21 09:44 | XMS_ITS | Encounter Summary ---
Author Organization [employer] ([place], [place], [place], [place], [place]) Address [address] [place] [address] Care Team Providers Care Mechanical Design Technician Name Role Phone Jonas Navas MD Primary Care Provider [phone] aMrcell Uriostegui MD Primary Care Provider + [phone] Heidi Rivers APRN Primary Care Provider + [phone] Neptali Bergman MD Unavailable [phone] Encounter Details Date Type Department Care Team (Late st Contact Info) Description 05/22/2020 Transcribed Document [facility] Neurology - [facility] [address] [address] Dexter Mendez MD [address] [place] [address] [address] [place] [address] Social History Tobacco Use Types Packs/Day Years [...] chronic cough Claustrophobia Coronary artery disease s/p [place] Diabetes mellitus type II Diverticulosis GERD - [...] Bedtime fluticasone 50 mcg/inh nasal spray 2 Pet[place], PRN, Nasal, Daily hydroCHLOROthiazide-lisinopril 25 mg-20 mg [...] 11/12/2025 3:30 PM EDT Office Visit [place] [facility] - [address] [facility] [address] [place] [address] Neptali Bergman MD [address] [place] [address] [address] [place] [address] documented as of this encounter Visit Diagnoses Not on filedocumented in this encounter Care Teams Mechanical Design Technician Relationship Specialty Start Date End Date Jonas Navas MD [address] [facility] [address] [place], [place] [id number] PCP - General Cardiothoracic Surgery 04/15/22 07/23/22 Marcell Uriostegui MD [address] [place] [address] [place] [address] PCP - General Adolescent Medicine 07/24/22 04/05/23 Heidi Rivers, PUMP AND BLOWER OPERATOR [address] [place] [address] PCP - General Nurse Practitioner 04/06/23 Neptali Bergman MD [address] [place] [address] [address] [place] [address] Hematology and Oncology 10/31/24 documented as of this encounter
--- OUTSIDE RECORDS SUMMARY | 2025-05-21 09:44 | XMS_ITS | Encounter Summary ---
Author Organization [employer] ([place], [place], [place], [place], [place]) Address [address] [place] [address] Care Team Providers Care Kier Boiler Name Role Phone Jonas Navas MD Primary Care Provider [phone] Marcell Uriostegui MD Primary Care Provider + [phone] Heidi Rivers APRN Primary Care Provider + [phone] Neptali Begrman MD Unavailable [phone] Encounter Details Date Type Department Care Team (Late st Contact Info) Description 05/23/2020 Transcribed Document [facility] [place] [address] [place] [address] ProviderJennifer MD [address] [place] [address] Social History Tobacco Use Types Packs/Day Years Used Date Smoking Tobacco: Never Assessed Comments Unknown Sex and Gender Information Value Date Recorded Sex Assigned at Not on file Legal Sex Female 1:09 PM CDT Gender Identity Not on file Sexual Orientation Not on file documented as of this encounter Miscellaneous Notes * Cerner Conversion Note - Jennifer ProviderMD - 05/23/2020 12:53 PM RESTORER PAPER AND PRINTS On Going Discharge Planning Entered On: 05/23/2020 12:53 EST Performed On: 05/23/2020 12:53 EST by SUNG OWENS RN-Belt Back OperatorMarker Shipments Progress Note Discharge Arrangements : Patient Post-Acute [...] Attend Multidisciplinary Rounds? : Yes SUNG OWENS RN-Belt Back Operator - 05/23/2020 12:53 EST documented in this encounter Plan of Treatment Upcoming Encounters Date Type Department Care Team (Late st Contact Info) Description 11/12/2025 3:30 PM EDT Office Visit [place] [facility] - [address] [place] [address] Neptali Bergman MD [address] [place] [address] [address] [place] [address] documented as of this encounter Visit Diagnoses Not on filedocumented in this encounter Care Teams Kier Boiler Relationship Specialty Start Date End Date Jonas Navas MD [address] [facility] [address] [place], [place] [id number] PCP - General Cardiothoracic Surgery 04/15/22 07/23/22 Marcell Uriostegui MD [address] [place] [address] PCP - General Adolescent Medicine 07/24/22 04/05/23 Heidi Rivers, ROMERO [address] [facility] [address] [place] [address] PCP - General Nurse Practitioner 04/06/23 Neptali Bergman MD [address] [place] [address] [address] [place] [address] Hematology and Oncology 10/31/24 documented as of this encounter
--- OUTSIDE RECORDS SUMMARY | 2025-05-21 09:44 | XMS_ITS | Encounter Summary ---
Author Organization [employer] ([place], [place], [place], [place], [place]) Address [address] [place] [address] Care Team Providers Care Driver Lifter Of Sanitation Truck Name Role Phone Jonas Navas MD Primary Care Provider [phone] Marcell Uriostegui MD Primary Care Provider + [phone] Heidi Rivers APRN Primary Care Provider + [phone] Lu Bergman MD Unavailable [phone] Encounter Details Date Type Department Care Team (Late st Contact Info) Description 07/25/2019 Transcribed Document [facility] [place] [facility] [place] [address] ProviderJennifer MD [address] [place] [address] Social History Tobacco Use Types Packs/Day Years Used Date Smoking Tobacco: Never Assessed Comments Unknown Sex and Gender Information Value Date Recorded Sex Assigned at Not on file Legal Sex Female 1:09 PM CDT Gender Identity Not on file Sexual Orientation Not on file documented as of this encounter Miscellaneous Notes * Cerner Conversion Note - Historical ProviderMD - 07/25/2019 2:[address] REPORTER Spiritual Care Assessment Entered On: 07/25/2019 7:16 [...] Support : Family/Significant other supported Spiritual and Adventism : Spiritual/Adventism support provided LU GARNER P - 07/25/2019 7:15 EST Electronically signed by Hossein, [facility] Conversion Septic Technician Cerner at 09/10/2022 12:45 AM CDT documented in this encounter Plan of Treatment Upcoming Encounters Date Type Department Care Team (Late st Contact Info) Description 11/12/2025 3:30 PM EDT Office Visit [place] [facility] - [facility] [address] [place] [address] Lu Bergman MD [address] [facility] [address] [place] [address] documented as of this encounter Visit Diagnoses Not on filedocumented in this encounter Care Teams Driver Lifter Of Sanitation Truck Relationship Specialty Start Date End Date Jonas Navas MD 1401 [facility] [address] [place], [place] [id number] PCP - General Cardiothoracic Surgery 04/15/22 07/23/22 Marcell Uriostegui MD [address] [place] [address] PCP - General Adolescent Medicine 07/24/22 04/05/23 Heidi Rivers, ROMERO [address] [place] [address] PCP - General Nurse Practitioner 04/06/23 Lu Bergman MD [address] [facility] [address] [place] [address] Hematology and Oncology 10/31/24 documented as of this encounter
--- OUTSIDE RECORDS SUMMARY | 2025-05-21 09:44 | XMS_ITS | Encounter Summary ---
Author Organization [employer] ([place], [place], [place], [place], [place]) Address [address] [place] [address] Care Team Providers Care Wirer Maintenance Name Role Phone Blaze Walden MD Primary Care Provider [phone] Marcell Uriostegui MD Primary Care Provider + [phone] Heidi Rivers APRN Primary Care Provider + [phone] Neptali Bergman MD Unavailable [phone] Encounter Details Date Type Department Care Team (Late st Contact Info) Description 07/10/2019 Transcribed Document [facility] [place] [facility] [place] [address] ProviderJennifer MD [address] [place] [address] Social History Tobacco Use Types Packs/Day Years Used Date Smoking Tobacco: Never Assessed Comments Unknown Sex and Gender Information Value Date Recorded Sex Assigned at Not on file Legal Sex Female 1:09 PM CDT Gender Identity Not on file Sexual Orientation Not on file documented as of this encounter Miscellaneous Notes * Cerner Conversion Note - Jennifer ProviderMD - 07/10/2019 12:45 PM PANTOGRAPH II ENG[place] [address] ALEJANDRINA YEH :1955 Visit Time:07/10/2019 Your Visit Summary Your Care Team Admitting Physician - BLAZE WALDEN MD-CAT Attending Physician - BLAZE WALDEN MD-CAT Primary Care Physician - HEIDI RIVERS NP-RAYMON Referring Physician - BLAZE WALDEN [...] 3 days Comments for results Where: [address] [facility] [address] [place] [address]- Medications What How Much When Instructions Next Dose albuterol 2 puffs Every 6 Hours as needed for as needed for shortness of breath or wheezing prn ALPRAZolam 0.25 Milligram(s) Oral At Bedtime today aspirin 325 Milligram(s) Every Day 07/12 atorvastatin 40 Milligram(s) Oral Every Day today cetirizine (ZyrTEC) 10 Milligram(s) Oral Every Day today fluticasone nasal (fluticasone 50 mcg/ inh nasal spray) 2 [place](s) Nasal Every Day today fluticasone-salmeterol (Advair Diskus [...] your health care provider approves. ??? Take lkoo-pbj-dsqdnik and prescription medicines only as told by [...] 03/06/2008 Document Revised: 03/31/2017 Document Reviewed: 03/31/2017 [employer] Interactive Patient Education ?? 2019 [employer] Moderate Conscious Sedation, Adult, Care After [...] you are awake and alert. ??? Take abat-cmp-uwnknna and prescription medicines only as told by [...] 02/28/2014 Document Revised: 10/12/2016 Document Reviewed: 08/29/2016 [employer] Interactive Patient Education ?? 2019 [employer] Emergency Awareness and Preventative Care STROKE [...] Assistance with quitting is available by contacting 0-163-MYHSNOW. This is a free resource providing counseling, [...] was given the opportunity to ask questions. Patient/Plastic Parts Fabricator Name: Patient/Plastic Parts Fabricator Signature: Relationship to Patient: Clinician/Hospital Plastic Parts Fabricator Signature: Date: documented in this encounter Plan of Treatment Upcoming Encounters Date Type Department Care Team (Late st Contact Info) Description 11/12/2025 3:30 PM EDT Office Visit [place] [facility] - [address] [facility] [address] [place] [address] Neptali Bergman MD [address] [place] [address] documented as of this encounter Visit Diagnoses Not on filedocumented in this encounter Care Teams Wirer Maintenance Relationship Specialty Start Date End Date Blaze Walden MD [address] [facility] [address] [place], [place] [phone] PCP - General Cardiothoracic Surgery 04/15/22 07/23/22 Marcell Uriostegui MD [address] [facility] [address] [place] [address] PCP - General Adolescent Medicine 07/24/22 04/05/23 Heidi Rivers, VISION THERAPIST [address] [facility] [address] [place] [address] PCP - General Nurse Practitioner 04/06/23 Neptali Bergman MD [address] [facility] [address] [place] [address] Hematology and Oncology 10/31/24 documented as of this encounter
--- OUTSIDE RECORDS SUMMARY | 2025-05-21 09:44 | XMS_ITS | Encounter Summary ---
Author Organization [employer] ([place], [place], [place], [place], [place]) Address [address] [place] [address] Care Team Providers Care Delinquency Counselor Name Role Phone Jonas Navas MD Primary Care Provider [phone] Marcell Uriostegui MD Primary Care Provider + [phone] Heidi Rivers APRN Primary Care Provider + [phone] Neptali Bergman MD Unavailable [phone] Encounter Details Date Type Department Care Team (Late st Contact Info) Description 07/25/2019 Transcribed Document [facility] [place] [facility] [place] [address] ProviderJennifer MD [address] [place] [address] Social History Tobacco Use Types Packs/Day Years Used Date Smoking Tobacco: Never Assessed Comments Unknown Sex and Gender Information Value Date Recorded Sex Assigned at Not on file Legal Sex Female 1:09 PM CDT Gender Identity Not on file Sexual Orientation Not on file documented as of this encounter Miscellaneous Notes * Cerner Conversion Note - Historical ProviderMD - 07/25/2019 6:59 AM CHEMISTRY LABORATORY TECHNICIAN Admission History, Adult Entered On: 07/25/2019 15:46 EST Performed On: 07/25/2019 6:59 EST by Lorenzo Rowland, ASHLEY Advance Directive Patient has Advance Directive *Q : Yes, Advance Directive not with the patient Request Family/Rep to Provide Copy of AD : Yes Advance Directive Type : Living will, Medical durable power of exceptional children's teacher (proxy) Copy Advance Directive Verified/on Chart : [...] Ambulatory Legal Guardian : Spouse Support Person/Patient Rotary Shear Cutter : Yes Support Person/Pt Rep Name : Ti yeh - spouse Support Person/Pt Rep Contact Information : [phone] Want Family/Rep/Phys Notified of Admit : No Emergency Contact #1 : Ti Yeh Emergency Contact #1 Emergency Contact #1 Relationship : spouse Emergency Contact #2 : na Emergency Contact #2 Phone Number : na Emergency Contact #2 Relationship : na Information Obtained From : Patient Primary Language : Kazakh Communication Barrier : None Objects to Sharing [...] Scale Risk Level : 25-45 Medium Risk [place] Fall Interventions : Adequate lighting, Assistive devices [...] Source : Measured Height Entry Format : [place] Height, Feet : 5 ft(Converted to: 152 cm, 60 Inch) Height, Inches : 2 Inch(Converted to: 0 ft 2 Inch, 5.08 cm) Clinical Height : 157.48 cm Weight Source : Standing scale Weight Entry Format : [place] Clinical Dosing Weight : 72.39 kg Weight, Pounds : 159 lb Weight, Ounces : 4 oz Body Surface Area (BSA) : 1.74 m2 Body Mass Index : 29.2 kg/m2 (HI) [place] Body Weight : 50 kg Lorenzo Rowland [...] Lorenzo Rowland RN - 07/25/2019 15:42 EST [place] Suicide Severity Rating Scale (C-SSRS) CSSRS Past [...] Description 11/12/2025 3:30 PM EDT Office Visit [place] [facility] - [place] [place] [address] Neptali Bergman MD [address] [facility] [address] [place] [address] documented as of this encounter Visit Diagnoses Not on filedocumented in this encounter Care Teams Delinquency Counselor Relationship Specialty Start Date End Date Jonas Navas MD [address] [facility] [address] [place], [place] [id number] PCP - General Cardiothoracic Surgery 04/15/22 07/23/22 Marcell Uriostegui MD [address] [place] [address] PCP - General Adolescent Medicine 07/24/22 04/05/23 Heidi Rivers, ROMERO [address] [place] [address] PCP - General Nurse Practitioner 04/06/23 Neptali Bergman MD [address] [facility] [address] [place] [address] Hematology and Oncology 10/31/24 documented as of this encounter
--- OUTSIDE RECORDS SUMMARY | 2025-05-21 09:44 | XMS_ITS | Encounter Summary ---
Author Organization [employer] ([place], [place], [place], [place], [place]) Address [address] [place] [address] Care Team Providers Care Thermoforming Machine Operator Name Role Phone Jonas Navas MD Primary Care Provider [phone] Marcell Uriostegui MD Primary Care Provider + [phone] Heidi Rivers APRN Primary Care Provider + [phone] Neptali Bergman MD Unavailable [phone] Encounter Details Date Type Department Care Team (Late st Contact Info) Description 05/23/2020 Transcribed Document [facility] [place] [facility] [place] [address] ProviderJennifer MD [address] [place] [address] Social History Tobacco Use Types Packs/Day Years Used Date Smoking Tobacco: Never Assessed Comments Unknown Sex and Gender Information Value Date Recorded Sex Assigned at Not on file Legal Sex Female 1:09 PM CDT Gender Identity Not on file Sexual Orientation Not on file documented as of this encounter Miscellaneous Notes * Cerner Conversion Note - Jennifer ProviderMD - 05/23/2020 12:55 PM VENTILATING ENGINEER [facility] [place] [address] ALEJANDRINA YEH :1955 Visit Time:05/22/2020 Your [...] 06/27/2020 01:45 PM EST Comments xrays at [facility] at 1:45 PM prior to appointment at 2:30 PM Where: [facility] (WEDNESDAY ONLY) [place] [address]- Business (1) Follow Up with HEIDY GAYTAN When 06/06/2020 03:45 PM EST Comments staple removal Where: [address] (WEDNESDAY ONLY) [place] [address]- Business (1) Medications What How Much When Instructions Next Dose acetaminophen-hydrocodone (Henderson 10 mg-325 mg oral tablet) 1 Tablet(s) [...] (fluticasone 50 mcg/ inh nasal spray) 2 [place](s) Nasal Every Day as needed for Congestion [...] these instructions at home: Medicines ??? Take daou-qbx-fwqycjt and prescription medicines only as told by [...] cannot use soap and water, use hand conventional underwriter. ? Change your bandage as told by [...] your pee (urine) pale yellow. ? Take ylvq-gfq-tgcjyfp or prescription medicines. ? Eat foods that [...] 09/03/2011 Document Revised: 08/31/2019 Document Reviewed: 08/24/2017 [employer] Patient Education ?? 2020 [employer]. acetaminophen and hydrocodone (a SEET a MIN oh fen and kendrick droe KOE done) Hycet, Lorcet, Henderson, Verdrocet, Vicodin, Xodol, Zamicet What is the [...] may report side effects to FDA at 8-732-QTQ-6695. What other drugs will affect acetaminophen and [...] affect acetaminophen and hydrocodone, including prescription and iwti-fha-rktpqry medicines, vitamins, and herbal products. Not all [...] to ensure that the information provided by [employer]. ('[employer]') is accurate, up-to-date, and complete, but no guarantee is made to that effect. Drug information contained herein may be time sensitive. [employer] information has been compiled for use by healthcare practitioners and consumers in the [place] and therefore [employer] does not warrant that uses outside of the [place] are appropriate, unless specifically indicated otherwise. [employer] drug information does not endorse drugs, diagnose patients or recommend therapy. [employer] drug information is an informational resource designed [...] effective or appropriate for any given patient. [employer] does not assume any responsibility for any aspect of healthcare administered with the aid of information [employer] provides. The information contained herein is not intended to cover all possible uses, directions, precautions, warnings, drug interactions, allergic reactions, or adverse effects. If you have questions about the drugs you are taking, check with your doctor, nurse or pharmacist. Copyright 2212-8653 [employer]. Version: 16.01. Revision Date: 06/14/2019. cyclobenzaprine (yoly [...] may report side effects to FDA at 7-763-YVJ-4547. What other drugs will affect cyclobenzaprine? Using [...] drugs may affect cyclobenzaprine, including prescription and igxv-xmg-xhsguuy medicines, vitamins, and herbal products. Not all [...] to ensure that the information provided by [employer]. ('[employer]') is accurate, up-to-date, and complete, but no guarantee is made to that effect. Drug information contained herein may be time sensitive. [employer] information has been compiled for use by healthcare practitioners and consumers in the [place] and therefore [employer] does not warrant that uses outside of the [place] are appropriate, unless specifically indicated otherwise. [employer] drug information does not endorse drugs, diagnose patients or recommend therapy. [employer] drug information is an informational resource designed [...] effective or appropriate for any given patient. [employer] does not assume any responsibility for any aspect of healthcare administered with the aid of information [employer] provides. The information contained herein is not intended to cover all possible uses, directions, precautions, warnings, drug interactions, allergic reactions, or adverse effects. If you have questions about the drugs you are taking, check with your doctor, nurse or pharmacist. Copyright 0062-5966 [employer]. Version: 5.01. Revision Date: 02/16/2018. Emergency Awareness [...] Assistance with quitting is available by contacting 7-394-UOMANOW. This is a free resource providing counseling, support, and referral. Or you may contact your personal physician. [employer] Suicide Prevention Lifeline: The National Suicide Prevention [...] range between ( 0.0 and 7.0 ) [place] #: 0.62 K/uL -- Normal range between ( 0.16 and 1.00 ) Eos #: 0.00 x10(3)/uL -- Normal range between ( 0.00 and 0.80 ) [place] %: 4.5 % -- Normal range between [...] ) Urine Bilirubin Dipstick: Negative Urine Specific [place]: 1.014 -- Normal range between ( 1.005 [...] was given the opportunity to ask questions. Patient/Gameplay Engineer Name: Patient/Gameplay Engineer Signature: Relationship to Patient: Clinician/Hospital Gameplay Engineer Signature: Date: documented in this encounter Plan of Treatment Upcoming Encounters Date Type Department Care Team (Late st Contact Info) Description 11/12/2025 3:30 PM EDT Office Visit [facility] - [place] [facility] [address] [place] [phone] Neptali Bergman MD [address] [facility] [address] [place] [address] documented as of this encounter Visit Diagnoses Not on filedocumented in this encounter Care Teams Thermoforming Machine Operator Relationship Specialty Start Date End Date Jonas Navas MD [address] [facility] [address] [place] [address] PCP - General Cardiothoracic Surgery 04/15/22 07/23/22 Marcell Uriostegui MD [address] [place] [address] [place] [address] PCP - General Adolescent Medicine 07/24/22 04/05/23 Heidi Rivers, ROMERO [address] [facility] [address] [place], [place] [id number] PCP - General Nurse Practitioner 04/06/23 Neptali Bergman MD [address] [facility] [address] [place] [address] Hematology and Oncology 10/31/24 documented as of this encounter
--- OUTSIDE RECORDS SUMMARY | 2025-05-21 09:44 | XMS_ITS | Encounter Summary ---
Author Organization [employer] ([place], [place], [place], [place], [place]) Address [address] [place] [address] Care Team Providers Care Chief Embalmer Name Role Phone Jonas Navas MD Primary Care Provider [phone] Marcell Uriostegui MD Primary Care Provider + [phone] Heidi Rivers APRN Primary Care Provider + [phone] Neptali Bergman MD Unavailable [phone] Encounter Details Date Type Department Care Team (Late st Contact Info) Description 05/23/2020 Transcribed Document [facility] [place] Family Medicine [address] [place] [address] ProviderJennifer MD [address] [place] [address] Social History Tobacco Use Types [...] Jennifer Arroyo MD - 05/23/2020 12:51 PM CLASSICS PROFESSOR Patient Education Materials Follows: Spinal Fusion, Adult, Care After This sheet gives you information about how to care for yourself after your procedure. Your doctor may also give you more specific instructions. If you have problems or questions, contact your doctor. Follow these instructions at home: Medicines ??? Take mala-fiw-jqozbri and prescription medicines only as told by [...] cannot use soap and water, use hand tire bladder maker. ? Change your bandage as told by [...] your pee (urine) pale yellow. ? Take dhyc-jpk-ipmxsxc or prescription medicines. ? Eat foods that [...] 09/03/2011 Document Revised: 08/31/2019 Document Reviewed: 08/24/2017 [employer] Patient Education ? 2019 [employer] documented in this encounter Plan of Treatment Upcoming Encounters Date Type Department Care Team (Late st Contact Info) Description 11/12/2025 3:30 PM EDT Office Visit [facility] [facility] - [place] [address] [facility] [address] [place] [address] Neptali Bergman MD [address] [facility] [address] [place] [address] documented as of this encounter Visit Diagnoses Not on filedocumented in this encounter Care Teams Chief Embalmer Relationship Specialty Start Date End Date Jonas Navas MD [address] [facility] [address] [place] [address] PCP - General Cardiothoracic Surgery 04/15/22 07/23/22 Marcell Uriostegui MD [address] [place] [address] [place] [address] PCP - General Adolescent Medicine 07/24/22 04/05/23 Heidi Rivers APRN [address] [place] [address] PCP - General Nurse Practitioner 04/06/23 Neptali Bergman MD [address] [facility] [address] [place] [address] Hematology and Oncology 10/31/24 documented as of this encounter
--- OUTSIDE RECORDS SUMMARY | 2025-05-21 09:44 | XMS_ITS | Encounter Summary ---
Author Organization [employer] ([place], [place], [place], [place], [place]) Address [address] [place] [address] Care Team Providers Care Airport Refueling Handler Name Role Phone Jonas Navas MD Primary Care Provider [phone] Marcell Uriostegui MD Primary Care Provider + [phone] Heidi Rivers APRN Primary Care Provider + [phone] Neptali Bergman MD Unavailable [phone] Encounter Details Date Type Department Care Team (Late st Contact Info) Description 07/10/2019 Transcribed Document [facility] [place] Family Medicine [address] [place] [address] ProviderJennifer MD [address] [place] [address] Social History Tobacco Use Types Packs/Day [...] Jennifer Arroyo MD - 07/10/2019 8:54 AM PROSTHETICS ASSISTANT Patient Education Materials Follows: Needle Biopsy of [...] your health care provider approves. ??? Take vdqv-wgd-metpaft and prescription medicines only as told by [...] 03/06/2008 Document Revised: 03/31/2017 Document Reviewed: 03/31/2017 [employer] Interactive Patient Education ? 2019 [employer] Moderate Conscious Sedation, Adult, Care After [...] you are awake and alert. ??? Take cbos-pit-zjlnlzd and prescription medicines only as told by [...] 02/28/2014 Document Revised: 10/12/2016 Document Reviewed: 08/29/2016 [employer] Interactive Patient Education ? 2019 [employer]. documented in this encounter Plan of Treatment Upcoming Encounters Date Type Department Care Team (Late st Contact Info) Description 11/12/2025 3:30 PM EDT Office Visit [facility] - [address] [place] [phone] Neptali Bergman MD [address] [place] [address] [address] [place] [address] documented as of this encounter Visit Diagnoses Not on filedocumented in this encounter Care Teams Airport Refueling Handler Relationship Specialty Start Date End Date Jonas Navas MD [address] [facility] [address] [place], [place] [id number] PCP - General Cardiothoracic Surgery 04/15/22 07/23/22 Marcell Uriostegui MD [address] [facility] [address] [place] [address] PCP - General Adolescent Medicine 07/24/22 04/05/23 Heidi Rivers, RUBY RAILS DEVELOPER [address] [facility] [address] [place] [address] PCP - General Nurse Practitioner 04/06/23 Neptali Bergman MD [address] [place] [address] [address] [place] [address] Hematology and Oncology 10/31/24 documented as of this encounter
--- OUTSIDE RECORDS SUMMARY | 2025-05-21 09:44 | XMS_ITS | Encounter Summary ---
Author Organization [employer] ([place], [place], [place], [place], [place]) Address [address] [place] [address] Care Team Providers Care Slitter Scorer Name Role Phone Jonas Navas MD Primary Care Provider [phone] Marcell Uriostegui MD Primary Care Provider + [phone] Heidi Rivers APRN Primary Care Provider + [phone] Neptali Bergman MD Unavailable [phone] Encounter Details Date Type Department Care Team (Late st Contact Info) Description 05/22/2020 Transcribed Document [facility] [place] [address] ProviderJennifer MD [address] [place] [address] Social History Tobacco Use Types Packs/Day [...] Jennifer Arroyo MD - 05/22/2020 3:21 PM CARDER BLANKETS Pain Assessment Entered On: 05/22/2020 21:19 EST [...] of the form. Electronically signed by Hossein, [facility] Conversion Holistic Nutritionist Cerner at 09/10/2022 12:32 AM CDT documented in this encounter Plan of Treatment Upcoming Encounters Date Type Department Care Team (Late st Contact Info) Description 11/12/2025 3:30 PM EDT Office Visit [facility] - [address] [place] [address] Neptali Bergman MD [address] [place] [address] [address] [place] [address] documented as of this encounter Visit Diagnoses Not on filedocumented in this encounter Care Teams Slitter Scorer Relationship Specialty Start Date End Date Jonas Navas MD [address] [facility] [address] [place], [place] [address] PCP - General Cardiothoracic Surgery 04/15/22 07/23/22 Marcell Uriostegui MD [address] [place] [address] PCP - General Adolescent Medicine 07/24/22 04/05/23 Heidi Rivers APRN [address] [facility] [address] [place] [address] PCP - General Nurse Practitioner 04/06/23 [place] [address] [place] [address] [address] [place] [address] Hematology and Oncology 10/31/24 documented as of this encounter
--- OUTSIDE RECORDS SUMMARY | 2025-05-21 09:44 | XMS_ITS | Encounter Summary ---
Author Organization [employer] ([place], [place], [place], [place], [place]) Address [address] [place] [address] Care Team Providers Care Anesthesiology Medical Doctor Name Role Phone Jonas Navas MD Primary Care Provider [phone] Marcell Uriostegui MD Primary Care Provider + [phone] Heidi Rivers APRN Primary Care Provider + [phone] Neptali Bergman MD Unavailable [phone] Encounter Details Date Type Department Care Team (Late st Contact Info) Description 05/23/2020 Transcribed Document [facility] [place] [address] [place] [address] ProviderJennifer MD [address] [place] [address] Social History Tobacco Use Types Packs/Day Years Used Date Smoking Tobacco: Never Assessed Comments Unknown Sex and Gender Information Value Date Recorded Sex Assigned at Not on file Legal Sex Female 1:09 PM CDT Gender Identity Not on file Sexual Orientation Not on file documented as of this encounter Miscellaneous Notes * Cerner Conversion Note - Jennifer ProviderMD - 05/23/2020 12:54 PM NETWORK SECURITY ADMINISTRATOR Final Discharge Planning Entered On: 05/23/2020 12:54 EST Performed On: 05/23/2020 12:54 EST by SUNG OWENS RN-Background Check Coordinator Final Discharge Planning Discharge Arrangements : Patient [...] : Yes Discharge To Care Management : Home/Residential/Snf or Self Care - SUNG OWENS RN-Background Check Coordinator - 05/23/2020 12:54 EST Electronically signed by [facility], [facility] Conversion Pipe Assembly Worker Cerner at 09/10/2022 12:38 AM CDT documented in this encounter Plan of Treatment Upcoming Encounters Date Type Department Care Team (Late st Contact Info) Description 11/12/2025 3:30 PM EDT Office Visit [facility] - [facility] [address] [place], [place] [address] [address] [place] [phone] Neptali Bergman MD [address] [facility] [address] [place] [address] documented as of this encounter Visit Diagnoses Not on filedocumented in this encounter Care Teams Anesthesiology Medical Doctor Relationship Specialty Start Date End Date Jonas Navas MD [address] [facility] [address] [place], [place] [address] PCP - General Cardiothoracic Surgery 04/15/22 07/23/22 Marcell Uriostegui MD [address] [place] [address] PCP - General Adolescent Medicine 07/24/22 04/05/23 Heidi Rivers, ROMERO [address] [facility] [address] [place], [place] [address] PCP - General Nurse Practitioner 04/06/23 Neptali Begrman MD [address] [address] Hematology and Oncology 10/31/24 documented as of this encounter
[2025-05-21 09:45] LABS: VBG PCO2 89.4 mmol/L (35-51)
--- OUTSIDE RECORDS SUMMARY | 2025-05-21 09:45 | XMS_ITS | Clinical Summary ---
Author Organization [facility] Address [address] [place] [place] [address] Care Team Providers Care Drier Transfer Car Operator Name Role Phone Heidi Rivers APRN Primary Care Provider [phone] Allergies Active Allergy Reactions Criticality Noted Date [...] not know rxn details Low 08/07/2020 Tiotropium [place]-Olodaterol Unknown - Patient states they do not [...] Active fluticasone (Flonase) 50 MCG/ACT nasal spray [place] 1 spray every day by intranasal route. [...] Vaccine: 60+ Years or (1 - Risk 50-74 years 1-dose series) 12/03/2005 [id number] Vaccine ( - 2024- season) 2025 05/06/2022, 05/02/2021, 07/31/2020 [facility]-Influenza Vaccine (#1) 01/22/202503/22, 04/24/2022, 03/04/2021, Additional history exists [facility]-Zoster Vaccines Completed 10/18/2019, 9 [facility]-Pneumococcal Vaccine: 50+ Years Completed 04/24/2022, 03/04/2021 [facility]-Obesity Intervention Completed 023, 01/08/2023, 11/30/2022 HPV Vaccines (No Doses Required) Completed [facility]-HIB Vaccines Aged Out No longer e [...] patient's age to complete this topic Insurance [facility] MEDICARE Care Teams Drier Transfer Car Operator Relationship Specialty Start Date End Date Heidi Rivers APRN [id number] PCP - General 11/03/22
--- OUTSIDE RECORDS SUMMARY | 2025-05-21 09:45 | XMS_ITS | Encounter Summary ---
Author Organization [employer] ([place], [place], [place], [place], [place]) Address [address] [place] [address] Care Team Providers Care Flooring Helper Name Role Phone Jonas Navas MD Primary Care Provider [phone] Marcell Uriostegui MD Primary Care Provider + [phone] Heidi Rivers APRN Primary Care Provider + [phone] Neptali Bergman MD Unavailable [phone] Encounter Details Date Type Department Care Team (Late st Contact Info) Description 2020 Transcribed Document [facility] [place] [address] [place] [address] ProviderJennifer MD [address] [place] [address] Social History Tobacco Use Types Packs/Day [...] with lung adenocarcinoma with metastasis, [facility]. The patient was intubated on vent. Then, the patient transferred to [facility] for evaluation. The patient was brought in [...] condition. ALLERGIES: Diltiazem, Levaquin. HOME MEDICATIONS: 1. [place] as needed. 2. Albuterol as needed. 3. [...] was reviewed. Critical time spent, 55 minutes. /[id number] MD ARACELY Flaherty/LOUANN / ARACELY / JERMAINEL documented in this encounter Plan of Treatment Upcoming Encounters Date Type Department Care Team (Late st Contact Info) Description 11/12/2025 3:30 PM EDT Office Visit [facility] - [place] [address] [place] [address] Neptali Bergman MD [address] [facility] [address] [place] [address] documented as of this encounter Visit Diagnoses Not on filedocumented in this encounter Care Teams Flooring Helper Relationship Specialty Start Date End Date Jonas Navas MD [address] [facility] [address] [place], [place] [id number] PCP - General Cardiothoracic Surgery 04/15/22 07/23/22 Marcell Uriostegui MD [address] [facility] [address] [place] [address] PCP - General Adolescent Medicine 07/24/22 04/05/23 Heidi Rivers, GRADING SUPERVISOR [address] [facility] [address] [place] [address] PCP - General Nurse Practitioner 04/06/23 Neptali Bergman MD [address] [facility] [address] [place] [address] Hematology and Oncology 10/31/24 documented as of this encounter
--- OUTSIDE RECORDS SUMMARY | 2025-05-21 09:45 | XMS_ITS | Encounter Summary ---
Author Organization [employer] ([place], [place], [place], [place], [place]) Address [address] [place] [address] Care Team Providers Care Mica Patcher Name Role Phone Jonas Navas MD Primary Care Provider [phone] Marcell Uriostegui MD Primary Care Provider + [phone] Heidi Rivers APRN Primary Care Provider + [phone] Neptali Bergman MD Unavailable Encounter Details Date Type Department Care Team (Late st Contact Info) Description 05/23/2020 Transcribed Document [facility] [place] Family Medicine Replaced by [facility] [place] [address] ProviderJennifer MD [address] [place] [address] Social History Tobacco Use Types Packs/Day Years Used Date Smoking Tobacco: Never Assessed Comments Unknown Sex and Gender Information Value Date Recorded Sex Assigned at Not on file Legal Sex Female 1:09 PM CDT Gender Identity Not on file Sexual Orientation Not on file documented as of this encounter Miscellaneous Notes * Cerner Conversion Note - Jennifer ProviderMD - 05/23/2020 12:51 PM CONE CLASSIFIER TENDER Initial Discharge Planning Entered On: 05/23/2020 12:53 EST Performed On: 05/23/2020 12:51 EST by SUNG OWENS RN-Guyline Operator Initial Assessment I Previously Documented Living Environment [...] Relationship : none` Medical Durable Power of Wood Grinder Name : Yayo Yeh Legal Guardian : No SUNG OWENS RN-Guyline Operator - 05/23/2020 12:51 EST Initial Assessment II Sensory and Motor Deficits : None Current Home Treatments and Equipment : Blood glucose monitor, CPAP, Shower chair, Walker Does the Patient have a Floor to SNF Benefit? : No SUNG OWENS RN-Guyline Operator - 05/23/2020 12:51 EST Discharge Needs I Anticipated Discharge Date : 05/23/2020 EST Anticipated Discharge To, CM : Home with family care Current Home Treatment/Equipment : Current Home Treatment/Equipment No qualifying data available. Post Acute/Home Treatments : Walker Documentation Status Complete : Yes SUNG OWENS RN-Guyline Operator - 05/23/2020 12:51 EST Discharge Needs II Professional Skilled Services : Professional Skilled Services No qualifying data available. Needs Assistance with Transportation : No Discharge Options Discussed with Patient : DME, Home Health SUNG OWENS RN-Guyline Operator - 05/23/2020 12:51 EST Narrative Note Narrative Note : 64yo female pt s/p L5-S1 TLIF. Pt ambulated 360ft with PT this am. Met with pt and spouse at bedside to discuss DCP. Pt has DME at home including a rollator. PT recs FRW as it is safer. Pt has no DME provider pref. Obtained one from [facility] and it has been delivered. Pt declines HH services. Pt dc'd home with spouse assistance. SUNG OWENS RN-Guyline Operator - 05/23/2020 12:51 EST Electronically signed by Kolby Catalan Conversion Continuous Conveyor Screen Drier Cerner at 09/10/2022 12:51 AM CDT documented in this encounter Plan of Treatment Upcoming Encounters Date Type Department Care Team (Late st Contact Info) Description 11/12/2025 3:30 PM EDT Office Visit [facility] - [address] [place] [address] Neptali Bergman MD [address] [place] [address] documented as of this encounter Visit Diagnoses Not on filedocumented in this encounter Care Teams Mica Patcher Relationship Specialty Start Date End Date Jonas Navas MD [address] [facility] [address] [place] [address] PCP - General Cardiothoracic Surgery 04/15/22 07/23/22 Marcell Uriostegui MD 1210 [facility] [address] [place] [address] PCP - General Adolescent Medicine 07/24/22 04/05/23 Heidi Rivers APRN 2017 [facility] [address] [place] [address] PCP - General Nurse Practitioner 04/06/23 Neptali Bergman MD 3930 [facility] [address] [place] [address] Hematology and Oncology 10/31/24 documented as of this encounter
--- OUTSIDE RECORDS SUMMARY | 2025-05-21 09:45 | XMS_ITS | Encounter Summary ---
Author Organization [employer] ([place], [place], [place], [place], [place]) Address [address] [place] [address] Care Team Providers Care Associate Sales Manager Name Role Phone Jonas Navas MD Primary Care Provider [phone] Marcell Uriostegui MD Primary Care Provider + [phone] Heidi Rivers APRN Primary Care Provider + [phone] Neptali Bergman MD Unavailable [phone] Encounter Details Date Type Department Care Team (Late st Contact Info) Description 07/27/2019 Transcribed Document [facility] [place] [facility] [place] [address] ProviderJennifer MD [address] [place] [address] Social History Tobacco Use Types Packs/Day Years Used Date Smoking Tobacco: Never Assessed Comments Unknown Sex and Gender Information Value Date Recorded Sex Assigned at Not on file Legal Sex Female 1:09 PM CDT Gender Identity Not on file Sexual Orientation Not on file documented as of this encounter Miscellaneous Notes * Cerner Conversion Note - Jennifer ProviderMD - 07/27/2019 1:01 PM TRUST AND ESTATES ATTORNEY Pain Assessment Entered On: 07/31/2019 7:06 EDT [...] form. Electronically signed by Kolby Catalan Conversion Ultrasonic Seaming Machine Operator Cerner at 09/11/2022 11:53 AM CDT documented in this encounter Plan of Treatment Upcoming Encounters Date Type Department Care Team (Late st Contact Info) Description 11/12/2025 3:30 PM EDT Office Visit [facility] - [address] [place] [address] [place] [address] [place] [address] [address] [place] [address] documented as of this encounter Visit Diagnoses Not on filedocumented in this encounter Care Teams Associate Sales Manager Relationship Specialty Start Date End Date Jonas Navas MD [address] [facility] [address] [place], [place] [id number] PCP - General Cardiothoracic Surgery 04/15/22 07/23/22 Marcell Uriostegui MD [address] [place] [address] [place] [address] PCP - General Adolescent Medicine 07/24/22 04/05/23 Heidi Rivers APRN [address] [place] [address] PCP - General Nurse Practitioner 04/06/23 [place] [address] [place] [address] [address] [place] [address] Hematology and Oncology 10/31/24 documented as of this encounter
--- OUTSIDE RECORDS SUMMARY | 2025-05-21 09:45 | XMS_ITS | Encounter Summary ---
Author Organization [employer] ([place], [place], [place], [place], [place]) Address [address] [place] [address] Care Team Providers Care Stone Trimmer Name Role Phone Jonas Navas MD Primary Care Provider [phone] Marcell Uriostegui MD Primary Care Provider + [phone] Heidi Rivers APRN Primary Care Provider + [phone] Neptali Bergman MD Unavailable [phone] Encounter Details Date Type Department Care Team (Late st Contact Info) Description 07/26/2019 Transcribed Document [facility] [place] [facility] [place] [address] ProviderJennifer MD [address] [place] [address] Social History Tobacco Use Types Packs/Day Years Used Date Smoking Tobacco: Never Assessed Comments Unknown Sex and Gender Information Value Date Recorded Sex Assigned at Not on file Legal Sex Female 1:09 PM CDT Gender Identity Not on file Sexual Orientation Not on file documented as of this encounter Miscellaneous Notes * Cerner Conversion Note - Jennifer ProviderMD - 07/26/2019 5:00 AM LABORER STORES Chart Check - Review Order Profile Entered On: 07/26/2019 4:53 EST Performed On: 07/26/2019 5:00 EST by Vero Reveles RN Chart Check Powerplans Initiated/Discontinued as Appropriate : Yes All Active Orders Reviewed : Yes Vero Reveles RN - 07/26/2019 4:53 EST Electronically signed by Hossein [facility] Conversion Soda Flaker Cerner at 09/10/2022 12:39 AM CDT documented in this encounter Plan of Treatment Upcoming Encounters Date Type Department Care Team (Late st Contact Info) Description 11/12/2025 3:30 PM EDT Office Visit [facility] - [place] [place] [address] Neptali Bergman MD [address] [facility] [address] [place] [address] documented as of this encounter Visit Diagnoses Not on filedocumented in this encounter Care Teams Stone Trimmer Relationship Specialty Start Date End Date Jonas Navas MD 1401 [facility] [address] [place] [address] PCP - General Cardiothoracic Surgery 04/15/22 07/23/22 Marcell Uriostegui MD [address] [place] [address] [place] [address] PCP - General Adolescent Medicine 07/24/22 04/05/23 Heidi Rivers, RN CARE TRANSITION [address] [place] [address] PCP - General Nurse Practitioner 04/06/23 Neptali Bergman MD [address] [facility] [address] [place] [address] Hematology and Oncology 10/31/24 documented as of this encounter
--- OUTSIDE RECORDS SUMMARY | 2025-05-21 09:45 | XMS_ITS | Encounter Summary ---
Author Organization [employer] ([place], [place], [place], [place], [place]) Address [address] [place] [address] Care Team Providers Care Covered Button Maker Name Role Phone Jonas Navas MD Primary Care Provider [phone] Marcell Uriostegui MD Primary Care Provider + [phone] Heidi Rivers APRN Primary Care Provider + [phone] Neptali Bergman MD Unavailable Encounter Details Date Type Department Care Team (Late st Contact Info) Description 07/25/2019 Transcribed Document [facility] [place] [address] [place] [address] ProviderJennifer MD [address] [place] [address] Social History Tobacco Use Types Packs/Day [...] Jennifer Arroyo MD - 07/25/2019 10:43 AM WEB APPLICATION TESTER DATE OF PROCEDURE: 07/25/2019 SURGEON: Jonas Navas [...] 2. Left upper lobectomy. 3. Mediastinal lymphadenectomy. ELECTROTYPE MOLDER: KARL Singh. HISTORICAL NOTE: This 63-year-old female [...] for wound closure were made, and a 32-English chest tube was placed through a separate [...] patient will have a good operative result. /[id number] MD SHAQ Rhodes/LOUANN / SHAQ / MODL /[id number] CC: Jonas Navas MD Electronically signed by [facility] Conversion Continuous Vulcanizing Machine Operator Cerner at 09/10/2022 12:48 AM CDT documented in this encounter Plan of Treatment Upcoming Encounters Date Type Department Care Team (Late st Contact Info) Description 11/12/2025 3:30 PM EDT Office Visit [facility] [place] [address] [facility] [address] [place] [address] Neptali Bergman MD [address] [facility] [address] [place] [address] documented as of this encounter Visit Diagnoses Not on filedocumented in this encounter Care Teams Covered Button Maker Relationship Specialty Start Date End Date Jonas Navas MD 1401 [facility] [address] [place] [address] PCP - General Cardiothoracic Surgery 04/15/22 07/23/22 Marcell Uriostegui MD 1210 [facility] [address] [place] [address] PCP - General Adolescent Medicine 07/24/22 04/05/23 Heidi Rivers APRN 2017 [facility] [address] [place] [address] PCP - General Nurse Practitioner 04/06/23 Neptali Bergman MD 83[address] [facility] [address] [place] [address] Hematology and Oncology 10/31/24 documented as of this encounter
--- OUTSIDE RECORDS SUMMARY | 2025-05-21 09:45 | XMS_ITS | Encounter Summary ---
Author Organization [employer] ([place], [place], [place], [place], [place]) Address [address] [place] [address] Care Team Providers Care Telephone Clerks Supervisor Name Role Phone Jonas Navas MD Primary Care Provider [phone] Marcell Uriostegui MD Primary Care Provider + [phone] Heidi Rivers APRN Primary Care Provider + [phone] Neptali Bergman MD Unavailable [phone] Encounter Details Date Type Department Care Team (Late st Contact Info) Description 12/05/2020 Transcribed Document [facility] [place] [facility] [place] [address] ProviderJennifer MD [address] [place] [address] Social History Tobacco Use Types [...] Man 8 % (Low) 12/05/2020 03:35 EDT [place] Percent Man 0 % (Low) 12/05/2020 03:35 [...] ng/mL 12/05/2020 03:35 EDT Electronically signed by [facility] Conversion Heel Reducer Cerner at 09/10/2022 12:44 AM CDT documented in this encounter Plan of Treatment Upcoming Encounters Date Type Department Care Team (Late st Contact Info) Description 11/12/2025 3:30 PM EDT Office Visit [facility] - [address] [place] [address] Neptali Bergman MD [address] [facility] [address] [place] [address] documented as of this encounter Visit Diagnoses Not on filedocumented in this encounter Care Teams Telephone Clerks Supervisor Relationship Specialty Start Date End Date Jonas Navas MD 1401 [facility] [address] [place] [address] PCP - General Cardiothoracic Surgery 04/15/22 07/23/22 Marcell Uriostegui MD 1210 [facility] [address] [place] [address] PCP - General Adolescent Medicine 07/24/22 04/05/23 Heidi Rivers APRN [address] [facility] [address] [place] [address] PCP - General Nurse Practitioner 04/06/23 Neptali Bergman MD [address] [facility] [address] [place] [address] Hematology and Oncology 10/31/24 documented as of this encounter
--- OUTSIDE RECORDS SUMMARY | 2025-05-21 09:45 | XMS_ITS | Encounter Summary ---
Author Organization [employer] ([place], [place], [place], [place], [place]) Address [address] [place] [address] Care Team Providers Care Professional Athlete Name Role Phone Jonas Navas MD Primary Care Provider [phone] Marcell Uriostegui MD Primary Care Provider + [phone] Heidi Rivers APRN Primary Care Provider + [phone] Neptali Bergman MD Unavailable [phone] Encounter Details Date Type Department Care Team (Late st Contact Info) Description 2020 Transcribed Document [facility] [place] [facility] [place] [address] ProviderJennifer MD [address] [place] [address] Social History Tobacco Use Types [...] - [address] [place] [address] Neptali Bergman MD [address] [facility] [address] [place] [address] documented as of this encounter Visit Diagnoses Not on filedocumented in this encounter Care Teams Professional Athlete Relationship Specialty Start Date End Date Jonas Navas MD 1401 [facility] [address] [place] [address] PCP - General Cardiothoracic Surgery 04/15/22 07/23/22 Marcell Uriostegui MD 1210 [facility] [address] [place] [address] PCP - General Adolescent Medicine 07/24/22 04/05/23 Heidi Rivers, PILE TRIMMER [address] [place] [address] PCP - General Nurse Practitioner 04/06/23 Neptali Bergman MD [address] [facility] [address] [place] [address] Hematology and Oncology 10/31/24 documented as of this encounter
--- OUTSIDE RECORDS SUMMARY | 2025-05-21 09:45 | XMS_ITS | Encounter Summary ---
Author Organization [employer] ([place], [place], [place], [place], [place]) Address [address] [place] [address] Care Team Providers Care Geological Scout Name Role Phone Blaze Walden MD Primary Care Provider [phone] Marcell Uriostegui MD Primary Care Provider + [phone] Heidi Rivers APRN Primary Care Provider + [phone] Neptali Bergman MD Unavailable [phone] Encounter Details Date Type Department Care Team (Late st Contact Info) Description 07/25/2019 Transcribed Document [facility] [place] Family [place] [facility] [place] [address] ProviderJennifer MD [address] [place] [address] Social History Tobacco Use Types Packs/Day Years Used Date Smoking Tobacco: Never Assessed Comments Unknown Sex and Gender Information Value Date Recorded Sex Assigned at Not on file Legal Sex Female 1:09 PM CDT Gender Identity Not on file Sexual Orientation Not on file documented as of this encounter Miscellaneous Notes * Cerner Conversion Note - Jennifer ProviderMD - 07/25/2019 8:34 AM [facility] Main OR PACU Summary Primary Physician: BLAZE WALDEN MD-CAT Finalized Date/Time: 07/25/19 13:51:20 Pt. Name: ALEJANDRINA YEH /Sex: 1955 Female Med Rec #: [id number] Physician: BLAZE WALDEN MD-[facility] Financial #: [id number] Pt. Type: I Room/Bed: ASA/7 Admit/Disch: 07/25/19 07:00:00 - Institution: [facility] Main OR PACU I Case Times Entry 1 In PACU I 07/25/19 10:58:00 Ready for PACU 07/25/19 11:50:00 Discharge Discharge from PACU 07/25/19 13:35:00 I Last Modified By: Omid Sanz RN 07/25/19 13:50:47 Finalized By: Omid Sanz, RN Document Signatures Signed By: Omid Sanz RN 07/25/19 13:51 Electronically signed by Hossein [facility] Conversion Steam Shovel Oiler Cerner at 09/10/2022 12:50 AM CDT documented in this encounter Plan of Treatment Upcoming Encounters Date Type Department Care Team (Late st Contact Info) Description 11/12/2025 3:30 PM EDT Office Visit [facility] - [address] [place] [phone] Neptali Bergman MD [address] [place] [address] [address] [place] [address] documented as of this encounter Visit Diagnoses Not on filedocumented in this encounter Care Teams Geological Scout Relationship Specialty Start Date End Date Blaze Walden MD [address] [facility] [address] [place], [place] [address] PCP - General Cardiothoracic Surgery 04/15/22 07/23/22 Marcell Uriostegui MD [address] [place] [address] [place] [address] PCP - General Adolescent Medicine 07/24/22 04/05/23 Heidi Rivers, SENIOR AGRICULTURAL ASSISTANT 2017 [facility] [address] [place] [address] PCP - General Nurse Practitioner 04/06/23 Neptali Bergman MD 8920 [facility] [address] [place] [address] Hematology and Oncology 10/31/24 documented as of this encounter
--- OUTSIDE RECORDS SUMMARY | 2025-05-21 09:45 | XMS_ITS | Encounter Summary ---
Author Organization [employer] ([place], [place], [place], [place], [place]) Address [address] [place] [address] Care Team Providers Care Study Hall Supervisor Name Role Phone Jonas Navas MD Primary Care Provider [phone] Marcell Uriostegui MD Primary Care Provider + [phone] Heidi Rivers APRN Primary Care Provider + [phone] Lu Bergman MD Unavailable [phone] Encounter Details Date Type Department Care Team (Late st Contact Info) Description 07/26/2019 Transcribed Document [facility] [place] [address] [place] [address] ProviderJennifer MD [address] [place] [address] Social History Tobacco Use Types Packs/Day Years Used Date Smoking Tobacco: Never Assessed Comments Unknown Sex and Gender Information Value Date Recorded Sex Assigned at Not on file Legal Sex Female 1:09 PM CDT Gender Identity Not on file Sexual Orientation Not on file documented as of this encounter Miscellaneous Notes * Cerner Conversion Note - Historical ProviderMD - 07/26/2019 10:43 AM DIRECTOR OF BUSINESS APPLICATIONS Spiritual Care Assessment Entered On: 07/26/2019 11:43 EST Performed On: 07/26/2019 10:43 EST by LU GARNER General Information Initial Visit : No Referred by : Forest Fire Control Officer follow-up Referral Reason Comment : Post-op visit [...] other supported, Hope strengths identified Spiritual and Pentecostalism : Prayer shared, Spiritual/Pentecostalism support provided LU GARNER - 07/26/2019 11:42 EST Electronically signed by Hossein [facility] Conversion Rpg Programmer Analyst Cerner at 09/10/2022 12:38 AM CDT documented in this encounter Plan of Treatment Upcoming Encounters Date Type Department Care Team (Late st Contact Info) Description 11/12/2025 3:30 PM EDT Office Visit [facility] - [address] [place] [phone] Lu Bergman MD [address] [place] [address] [address] [place] [address] documented as of this encounter Visit Diagnoses Not on filedocumented in this encounter Care Teams Study Hall Supervisor Relationship Specialty Start Date End Date Jonas Navas MD 1401 [facility] [address] [place], [place] [address] PCP - General Cardiothoracic Surgery 04/15/22 07/23/22 Marcell Uriostegui MD [address] [place] [address] [place] [address] PCP - General Adolescent Medicine 07/24/22 04/05/23 Heidi Rivers, CLINICAL TRIAL ASSISTANT 2017 [facility] [address] [place] [address] PCP - General Nurse Practitioner 04/06/23 [place] [address] [place] [address] [address] [place] [address] Hematology and Oncology 10/31/24 documented as of this encounter
--- OUTSIDE RECORDS SUMMARY | 2025-05-21 09:45 | XMS_ITS | Encounter Summary ---
Author Organization [employer] ([place], [place], [place], [place], [place]) Address [address] [place] [address] Care Team Providers Care Slasher Operator Name Role Phone Jonas Navas MD Primary Care Provider [phone] Marcell Uriostegui MD Primary Care Provider + [phone] Heidi Rivers APRN Primary Care Provider + [phone] Neptali Bergman MD Unavailable [phone] Encounter Details Date Type Department Care Team (Late st Contact Info) Description 07/26/2019 Transcribed Document [facility] [place] [facility] [place] [address] ProviderJennifer MD [address] [place] [address] Social History Tobacco Use Types Packs/Day Years Used Date Smoking Tobacco: Never Assessed Comments Unknown Sex and Gender Information Value Date Recorded Sex Assigned at Not on file Legal Sex Female 1:09 PM CDT Gender Identity Not on file Sexual Orientation Not on file documented as of this encounter Miscellaneous Notes * Cerner Conversion Note - Historical ProviderMD - 07/26/2019 9:49 AM SIZE MIXER Initial Discharge Planning Entered On: 07/26/2019 9:53 EST Performed On: 07/26/2019 9:49 EST by ALEXUS LEON, Rn-Study Abroad Coordinator Initial Assessment I Previously Documented Living Environment [...] Listed? : Yes Medical Durable Power of Water Fitness Instructor Name : Yayo Yeh Legal Guardian : No Date Hospital Obtained Advance Directive : 07/25/2019 EST Is Guardianship Needed : No ALEXUS LEON Rn-Study Abroad Coordinator - 07/26/2019 9:49 EST Initial Assessment II Sensory and Motor Deficits : None Current Home Treatments and Equipment : Blood glucose monitor, CPAP ALEXUS LEON Rn-Study Abroad Coordinator - 07/26/2019 9:49 EST Discharge Needs I Anticipated Discharge Date : 07/28/2019 EST Anticipated Discharge To, CM : Home with family care Current Home Treatment/Equipment : Current Home Treatment/Equipment No qualifying data available. Post Acute/Home Treatments : Blood glucose monitor, CPAP Documentation Status Complete : Yes ALEXUS LEON Rn-Study Abroad Coordinator - 07/26/2019 9:49 EST Discharge Needs II Professional Skilled Services : Professional Skilled Services No qualifying data available. Needs Assistance with Transportation : No Discharge Options Discussed with Patient : Discharge transportation, DME, Home Health, Short term rehabilitation ALEXUS LEON Rn-Study Abroad Coordinator - 07/26/2019 9:49 EST Narrative Note Narrative Note : Day 1/POD 1 L Muscle Sparing Thoracotomy/LULectomy/Medial Lymphadenectomy Hx Adenocarcinoma; COPD; CAD; [place]; DM; Smoker; Htn; TIA CTS/PT 02=4L/97%; WBC 18.6 increased from 14.0; L CT; Epidural Met pt/spouse Yayo at bedside; pt with c/o of pain; lives with spouse; PLOF independent, drives, no hx of hhc or STR; has CPAP she does not wear; AD on file in chart - spouse Yayo is HCS. Anticipate pt will d/c home without needs. ALEXUS LEON Rn-Study Abroad Coordinator - 07/26/2019 9:49 EST documented in this encounter Plan of Treatment Upcoming Encounters Date Type Department Care Team (Late st Contact Info) Description 11/12/2025 3:30 PM EDT Office Visit [facility] - [address] [place] [address] Neptali Bergman MD [address] [facility] [address] [place] [address] documented as of this encounter Visit Diagnoses Not on filedocumented in this encounter Care Teams Slasher Operator Relationship Specialty Start Date End Date Jonas Navas MD [address] [facility] [address] [place] [address] PCP - General Cardiothoracic Surgery 04/15/22 07/23/22 Marcell Uriostegui MD [address] [facility] [address] [place] [address] PCP - General Adolescent Medicine 07/24/22 04/05/23 Heidi Rivers APRN [address] [facility] [address] [place] [address] PCP - General Nurse Practitioner 04/06/23 Neptali Bergman MD [address] [facility] [address] [place] [address] Hematology and Oncology 10/31/24 documented as of this encounter
--- OUTSIDE RECORDS SUMMARY | 2025-05-21 09:45 | XMS_ITS | Encounter Summary ---
Author Organization [employer] ([place], [place], [place], [place], [place]) Address [address] [place] [address] Care Team Providers Care Feeder Operator Name Role Phone Jonas Navas MD Primary Care Provider [phone] Marcell Uriostegui MD Primary Care Provider + [phone] Heidi Rivers APRN Primary Care Provider + [phone] Neptali Bergman MD Unavailable [phone] Encounter Details Date Type Department Care Team (Late st Contact Info) Description 07/26/2019 Transcribed Document [facility] [place] [address] [place] [address] ProviderJennifer MD [address] [place] [address] Social History Tobacco Use Types Packs/Day Years Used Date Smoking Tobacco: Never Assessed Comments Unknown Sex and Gender Information Value Date Recorded Sex Assigned at Not on file Legal Sex Female 1:09 PM CDT Gender Identity Not on file Sexual Orientation Not on file documented as of this encounter Miscellaneous Notes * Cerner Conversion Note - Jennifer ProviderMD - 07/26/2019 9:53 AM CD MANUFACTURING SUPERVISOR On Going Discharge Planning Entered On: 07/26/2019 9:54 EST Performed On: 07/26/2019 9:53 EST by ALEXUS LEON, Edgardo-Robotic WelderOil Burner Installer Progress Note Discharge Arrangements : Patient Post-Acute [...] Meeting Medical Necessity : Yes ALEXUS LEON Rn-Robotic Welder - 07/26/2019 9:53 EST Narrative Progress Note Narrative Progress Note : CTS encouraging pt to be up in chair OOB; anticipate possible transfer out of [facility] later today; anticipate home with spouse when stable; monitor for home oxygen need. ALEXUS LEON Rn-Robotic Welder - 07/26/2019 9:53 EST Electronically signed by Hossein [facility] Conversion Para Educator Cerner at 09/10/2022 12:44 AM CDT documented in this encounter Plan of Treatment Upcoming Encounters Date Type Department Care Team (Late st Contact Info) Description 11/12/2025 3:30 PM EDT Office Visit [facility] - [facility] [address] [facility] [address] [place] [address] Neptali Bergman MD [address] [facility] [address] [place] [address] documented as of this encounter Visit Diagnoses Not on filedocumented in this encounter Care Teams Feeder Operator Relationship Specialty Start Date End Date Jonas Navas MD [address] [facility] [address] [place], [place] [id number] PCP - General Cardiothoracic Surgery 04/15/22 07/23/22 Marcell Uriostegui MD [address] [place] [address] [place] [address] PCP - General Adolescent Medicine 07/24/22 04/05/23 Heidi Rivers APRN [address] [facility] [address] [place], [place] [id number] PCP - General Nurse Practitioner 04/06/23 Neptali Bergman MD [address] [facility] [address] [place] [address] Hematology and Oncology 10/31/24 documented as of this encounter
--- OUTSIDE RECORDS SUMMARY | 2025-05-21 09:45 | XMS_ITS | Encounter Summary ---
Author Organization [employer] ([place], [place], [place], [place], [place]) Address [address] [place] [address] Care Team Providers Care Account Manager Employee Benefits Name Role Phone Jonas Navas MD Primary Care Provider [phone] Marcell Uriostegui MD Primary Care Provider + [phone] Heidi Rivers APRN Primary Care Provider + [phone] Neptali Bergman MD Unavailable [phone] Encounter Details Date Type Department Care Team (Late st Contact Info) Description 2020 Transcribed Document [facility] Pulm & Critical Care Medicine [address] [place] [address] [address] [place] [address] [place] [address] [address] [place] [id number] Social History Tobacco Use Types Packs/Day Years [...] CAD who presents to our facility from [facility] [place]. Patient is currently intubated, sedated, and on [...] ALINA lobectomy COPD NIDDM GERD HLD HTN ND TIA CAD Past Surgical History ALINA lobectomy [...] mL: 100 mg, 50 mL/Hr, IV Piggyback, [id number] fentaNYL injection 1,000 mcg + Premix Diluent NaCl 0.9% for Drip 100 mL: Titrate, IntraVENous granisetron: 1 mg, IV Push, 1-Time granisetron: 1 mg, IV Push, 1-Time granisetron: 1 mg, IV Push, 1-Time granisetron: 1 mg, IV Push, 1-Time hydrALAZINE: 10 mg, IV Push, Q6H, PRN: Hypertension morphine: 2 mg, IV Push, Q2H, PRN: Pain (Severe 7-10) Prescriptions Prescribed [place] 10 mg-325 mg oral tablet: 1 Tab, [...] Refill(s) fluticasone 50 mcg/inh nasal spray: 2 [place], Nasal, Daily, PRN: Congestion, 0 Refill(s) hydroCHLOROthiazide-lisinopril 25 mg-20 mg oral tablet: 1 Tab, Oral, Daily, 30 Tab, 0 Refill(s) omeprazole: 20 mg, Oral, Daily, 0 Refill(s), Medications (13) Active Scheduled: (4) doxycycline hyclate + NaCl 0.9% 100 mL 100 mg, IV Piggyback, [id number] famotidine 20 mg tab 20 mg 1 [...] All Problems (Selected) Claustrophobia / SNOMED CT 00905115 / Confirmed Shortness of breath / SNOMED CT 038190699 / Confirmed GERD - Gastro-esophageal reflux disease / SNOMED CT 6930199719 / Confirmed Hiatal hernia / SNOMED CT 310328915 / Confirmed Diverticulosis / SNOMED CT 0484341708 / Confirmed Diabetes mellitus type II / SNOMED CT 79983192 / Confirmed CA - Lung cancer adenocarcinoma / SNOMED CT 0797829078 / Confirmed History of obstructive sleep apnea / IMO 93993349 / Confirmed High blood pressure / SNOMED CT 16521303 / Confirmed Hyperlipidemia / SNOMED CT 81425847 / Confirmed Coronary artery disease s/p ND / SNOMED CT 1782547916 / Confirmed 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 / SNOMED CT 57755892 / Confirmed Sinusitis / SNOMED CT 92849932 / Confirmed Sleep apnea no c-pap / SNOMED CT 508438918 / Confirmed Arthritis / SNOMED CT 8308585 / Confirmed Back pain / SNOMED CT 5195466217 / Confirmed Migraine / SNOMED CT 86856814 / Confirmed H/O: TIA / SNOMED CT 420685665 / Confirmed, Active Problems (18) Arthritis Back [...] Results Found Impression and Plan Impression: Pulmonary Ffeev-oy-dduvekc hypercapnic respiratory failure Intubated at OSH on 12/01 COPD, acute exacerbation Ventilator management encounter Smoking history No known chronic lung diseases No PFTs for review Cardiovascular CAD History of ND HTN ID Possible PNA? Negative procalcitonin, no [...] Description 11/12/2025 3:30 PM EDT Office Visit [facility] - [place] [address] [facility] [address] [place] [address] Neptali Bergman MD [address] [facility] [address] [place] [address] documented as of this encounter Visit Diagnoses Not on filedocumented in this encounter Care Teams Account Manager Employee Benefits Relationship Specialty Start Date End Date Jonas Navas MD [address] [facility] [address] [place], [place] [id number] PCP - General Cardiothoracic Surgery 04/15/22 07/23/22 Marcell Uriostegui MD [address] [place] [address] [place] [address] PCP - General Adolescent Medicine 07/24/22 04/05/23 Heidi Rivers, ROMERO [address] [facility] [address] [place] [address] PCP - General Nurse Practitioner 04/06/23 Neptali Bergman MD [address] [address] Hematology and Oncology 10/31/24 documented as of this encounter
--- OUTSIDE RECORDS SUMMARY | 2025-05-21 09:45 | XMS_ITS | Encounter Summary ---
Author Organization [employer] ([place], [place], [place], [place], [place]) Address [address] [place] [address] Care Team Providers Care Orthopedic Coder Name Role Phone Jonas Navas MD Primary Care Provider [phone] Marcell Uriostegui MD Primary Care Provider + [phone] Heidi Rivers APRN Primary Care Provider + [phone] Neptali Bergman MD Unavailable [phone] Encounter Details Date Type Department Care Team (Late st Contact Info) Description 05/23/2020 Transcribed Document [facility] [place] [facility] [place] [address] ProviderJennifer MD [address] [place] [address] Social History Tobacco Use Types Packs/Day Years Used Date Smoking Tobacco: Never Assessed Comments Unknown Sex and Gender Information Value Date Recorded Sex Assigned at Not on file Legal Sex Female 1:09 PM CDT Gender Identity Not on file Sexual Orientation Not on file documented as of this encounter Miscellaneous Notes * Cerner Conversion Note - Jennifer ProviderMD - 05/23/2020 12:54 PM METER TESTER POLYPHASE Treatment Intervention, PT Entered On: 05/23/2020 15:33 [...] Log roll precautions, Spinal Precautions [facility] 05/23/2020 15:28 EST General Status Patient Received Status : Other: sitting on couch Treatment Start Time : 05/23/2020 14:36 EST Patient Left Status : RN/PCT informed, Family/Visitors at bedside, All needs met and within reach, Other: sitting on couch RN/PCT Informed Comment : oneil Gary Treatment End Time : 05/23/2020 14:46 EST Treatment Time : 10 Minute(s) [facility] 05/23/2020 15:28 EST Cognitive Treatment, PT Orientation : Oriented x 4 [facility] 05/23/2020 15:28 EST Indication Assesessment, PT Physical Therapy Indicated : No [facility] 05/23/2020 15:28 EST Plan of Care, PT PT Tx Plan/Goals Established w Patient : Yes KEVIN [facility] 05/23/2020 15:28 EST Short Term Goals Mobility/Bed Mobility STG PT Grid Goal #1 Goal #2 Activity : Supine to sit Sit to stand Assist : Assist, minimal Supervision or set-up Equipment : Walker, four wheel Date to Meet : 05/30/2020 EST 05/30/2020 EST Goal Status : Initial goal Initial goal Comment : BLT precautions with bed flat [facility] 05/23/2020 15:28 EST [facility] 05/23/2020 15:28 EST Ambulation STG Grid Goal #1 Device : Walker, front wheel Distance : 200 ft Assist : Supervision or set-up Date to Meet : 05/30/2020 EST Goal Status : Intial Goal Comment : O2 sat >90% on room air [facility] 05/23/2020 15:28 EST Stairs STG Grid Goal #1 Device : Walker, front wheel Number of Steps : 1 Handrail(s) : No handrails Assist : Assist, minimal Date to Meet : 05/30/2020 EST Goal Status : Initial goal BROWNADRIAN CASPERLALA - 05/23/2020 15:28 EST Grant Manager Goals Mobility/Bed Mobility LTG PT Grid Goal #1 Goal #2 Activity : Supine to sit Sit to stand Assist : Supervision or set-up Independent, modified Date to Meet : 06/06/2020 EST 06/06/2020 EST Goal Status : Intial Goal Intial Goal Comment : BLT precautions with bed flat [facility] BROWN [facility] 05/23/2020 15:28 EST KEVIN [facility], [facility] 05/23/2020 15:28 EST Ambulation LTG Grid Goal #1 Device : Walker, front wheel Distance : 300 ft Assist : Independent, modified Date to Meet : 06/06/2020 EST Goal Status : Intial Goal Comment : O2 sat >90% on room air [facility]RI[facility] BROWN [facility] 05/23/2020 15:28 EST Stairs LTG Grid Goal #1 Device : Walker, front wheel Number of Steps : 1 Handrail(s) : No handrails Assist : Supervision or set-up Date to Meet : 06/06/2020 EST Goal Status : Intial Goal BROWNBECCACLARISSE [facility] 05/23/2020 15:28 EST Treatment Note Subjective Comment [...] Therapy at Discharge : Yes ADRIAN BROWN, SAFETY EQUIPMENT TESTER - 05/23/2020 15:28 EST [place] PT Charges SAFETY EQUIPMENT TESTER PT Ther Activities Ea 15 Min-SAFETY EQUIPMENT TESTER : 1 ADRIAN BROWN, SAFETY EQUIPMENT TESTER - 05/23/2020 15:28 EST Electronically signed by Interface, [facility] Conversion Automotive Instructor Cerner at 09/10/2022 12:50 AM CDT documented in this encounter Plan of Treatment Upcoming Encounters Date Type Department Care Team (Late st Contact Info) Description 11/12/2025 3:30 PM EDT Office Visit [facility] - [address] [place] [address] Neptali Bergman MD [address] [place] [address] [address] [place] [address] documented as of this encounter Visit Diagnoses Not on filedocumented in this encounter Care Teams Orthopedic Coder Relationship Specialty Start Date End Date Jonas Navas MD [address] [facility] [address] [place], [place] [address] PCP - General Cardiothoracic Surgery 04/15/22 07/23/22 Marcell Uriostegui MD [address] [place] [address] [place] [address] PCP - General Adolescent Medicine 07/24/22 04/05/23 Heidi Rivers, ROMERO [address] [place] [address] PCP - General Nurse Practitioner 04/06/23 Neptali Bergman MD [address] [facility] [address] [place] [address] Hematology and Oncology 10/31/24 documented as of this encounter
--- OUTSIDE RECORDS SUMMARY | 2025-05-21 09:45 | XMS_ITS | Encounter Summary ---
Author Organization [employer] ([place], [place], [place], [place], [place]) Address [address] [place] [address] Care Team Providers Care Refining Still Operator Name Role Phone Jonas Navas MD Primary Care Provider [phone] Marcell Uriostegui MD Primary Care Provider + [phone] Heidi Rivers APRN Primary Care Provider + [phone] Neptali Bergman MD Unavailable [phone] Encounter Details Date Type Department Care Team (Late st Contact Info) Description 07/26/2019 Transcribed Document [facility] [place] [address] [place] [address] ProviderJennifer MD [address] [place] [address] Social History Tobacco Use Types Packs/Day Years Used Date Smoking Tobacco: Never Assessed Comments Unknown Sex and Gender Information Value Date Recorded Sex Assigned at Not on file Legal Sex Female 1:09 PM CDT Gender Identity Not on file Sexual Orientation Not on file documented as of this encounter Miscellaneous Notes * Cerner Conversion Note - Historical ProviderMD - 07/26/2019 4:55 PM SENIOR BI DEVELOPER Event Note Entered On: 07/26/2019 16:56 EST Performed On: 07/26/2019 16:55 EST by Ya Gonzalez RN Event Note Description of Event : Spoke with Dr. Albarran with anesthesia due to patient in significant pain. Order to give 6cc clinician bolus, increase rate to 10 and decrease Narcan rate to 12.5 Ya Gonzalez RN - 07/26/2019 16:55 EST Electronically signed by [facility]sein [facility] Conversion Campaign Fundraiser Cerner at 09/10/2022 12:40 AM CDT documented in this encounter Plan of Treatment Upcoming Encounters Date Type Department Care Team (Late st Contact Info) Description 11/12/2025 3:30 PM EDT Office Visit [facility] - [facility] [address] [address] [place] [address] Neptali Bergman MD [address] [place] [address] [address] [place] [address] documented as of this encounter Visit Diagnoses Not on filedocumented in this encounter Care Teams Refining Still Operator Relationship Specialty Start Date End Date Jonas Navas MD [address] [facility] [address] [place] [address] PCP - General Cardiothoracic Surgery 04/15/22 07/23/22 Marcell Uriostegui MD [address] [place] [address] [place] [address] PCP - General Adolescent Medicine 07/24/22 04/05/23 Heidi Rivers, DERMATOLOGY PROCEDURAL PHYSICIAN [address] [place] [address] PCP - General Nurse Practitioner 04/06/23 Neptali Bergman MD [address] [facility] [address] [place] [address] Hematology and Oncology 10/31/24 documented as of this encounter
--- OUTSIDE RECORDS SUMMARY | 2025-05-21 09:45 | XMS_ITS | Encounter Summary ---
Author Organization [employer] ([place], [place], [place], [place], [place]) Address [address] [place] [address] Care Team Providers Care Sfdc Architect Name Role Phone Jonas Navas MD Primary Care Provider [phone] Marcell Uriostegui MD Primary Care Provider + [phone] Heidi Rivers APRN Primary Care Provider + [phone] Lu Bergman MD Unavailable [phone] Encounter Details Date Type Department Care Team (Late st Contact Info) Description 2020 Transcribed Document [facility] [place] [address] ProviderJennifer MD [address] [place] [address] Social History Tobacco Use Types Packs/Day [...] 0.9% 100 mL 100 mg, IV Piggyback, [id number] insulin lispro 1 unit/0.01 mL inj 76 [...] Description 11/12/2025 3:30 PM EDT Office Visit [facility] - [address] [facility] [address] [place] [address] Lu Bergman MD [address] [facility] [address] [place] [address] documented as of this encounter Visit Diagnoses Not on filedocumented in this encounter Care Teams Sfdc Architect Relationship Specialty Start Date End Date Jonas Navas MD [address] [facility] [address] [place], [place] [address] PCP - General Cardiothoracic Surgery 04/15/22 07/23/22 Marcell Uriostegui MD [address] [place] [address] PCP - General Adolescent Medicine 07/24/22 04/05/23 Heidi Rivers, ROMERO 2017 [facility] [address] [place] [address] PCP - General Nurse Practitioner 04/06/23 Lu Bergman MD [address] [address] Hematology and Oncology 10/31/24 documented as of this encounter
--- OUTSIDE RECORDS SUMMARY | 2025-05-21 09:45 | XMS_ITS | Encounter Summary ---
Author Organization [employer] ([place], [place], [place], [place], [place]) Address [address] [place] [address] Care Team Providers Care Outdoor Illuminating Engineer Name Role Phone Jonas Navas MD Primary Care Provider [phone] Marcell Uriostegui MD Primary Care Provider + [phone] Heidi Rivers APRN Primary Care Provider + [phone] Neptali Bergman MD Unavailable [phone] Encounter Details Date Type Department Care Team (Late st Contact Info) Description 12/05/2020 Transcribed Document [facility] Pulm & Critical Care Medicine [address] [place] [address] [address] [place] [address] [place] [address] [address] [place] [id number] Social History Tobacco Use Types Packs/Day Years [...] abdominal metastases, COPD, NIDDM, GERD, HLD, HTN, AK, TIA, and CAD who presents to our facility from [facility]. Patient is currently intubated, sedated, and [...] ALINA lobectomy COPD NIDDM GERD HLD HTN AK TIA CAD Past Surgical History ALINA lobectomy [...] mL: 100 mg, 50 mL/Hr, IV Piggyback, D49TSja fentaNYL injection 1,000 mcg + Premix Diluent [...] Refill(s) fluticasone 50 mcg/inh nasal spray: 2 [place], Nasal, Daily, PRN: Nasal Congestion, 0 Refill(s) [...] 0.9% 100 mL 100 mg, IV Piggyback, V18TIds heparin 5,000 units/1 mL inj 5,000 Units [...] - Lung cancer adenocarcinoma / SNOMED CT 2581129651 / Confirmed Claustrophobia / SNOMED CT 16561592 / Confirmed Diabetes mellitus type II / SNOMED CT 35382030 / Confirmed Diverticulosis / SNOMED CT 5146645629 / Confirmed Shortness of breath / SNOMED CT 195117269 / Confirmed GERD - Gastro-esophageal reflux disease / SNOMED CT 0887796299 / Confirmed Hiatal hernia / SNOMED CT 872250088 / Confirmed History of obstructive sleep apnea / IMO 99377099 / Confirmed Inactive: Seasonal allergies / SNOMED CT 7983101233 Canceled: Chronic cough / SNOMED CT 628871546 Canceled: History of obstructive sleep apnea - no c-pap / IMO 23715922 Canceled: History of obstructive sleep apnea / IMO 12292056 Canceled: Current every day smoker / SNOMED CT 3566850469, Active Problems (18) Arthritis Back pain CA - Lung cancer adenocarcinoma 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 Claustrophobia Coronary artery disease s/p AK Diabetes mellitus type II Diverticulosis GERD - [...] Art 39.2 12/05/2020 06:[address] 12/05/2020 06:22 HCO3 Art 28.1 HI 12/05/2020 06:[address] 12/05/2020 06:22 sO2 Art 98.9 12/05/2020 06:22 [...] 12/05/2020 06:22 Radiology Results (Last 48 hours) [id number] -- 2020 00:20 CR Chest 1 Vw [...] final transcribed report. Impression and Plan Pulmonary Chenj-ui-fkdlwuu hypercapnic respiratory failure Intubated at OSH on 12/01 COPD, acute exacerbation Ventilator management encounter Smoking history No known chronic lung diseases No PFTs for review Cardiovascular CAD History of AK HTN ID Possible PNA? Negative procalcitonin, no [...] Description 11/12/2025 3:30 PM EDT Office Visit [facility] [place] [address] [facility] [address] [place] [address] Neptali Bergman MD [address] [facility] [address] [place] [address] documented as of this encounter Visit Diagnoses Not on filedocumented in this encounter Care Teams Outdoor Illuminating Engineer Relationship Specialty Start Date End Date Jonas Navas MD [address] [facility] [address] [place] [address] PCP - General Cardiothoracic Surgery 04/15/22 07/23/22 Marcell Uriostegui MD [address] [place] [address] PCP - General Adolescent Medicine 07/24/22 04/05/23 Heidi Rivers APRN [address] [facility] [address] [place] [address] PCP - General Nurse Practitioner 04/06/23 Neptali Bergman MD [address] [facility] [address] [place] [address] Hematology and Oncology 10/31/24 documented as of this encounter
--- OUTSIDE RECORDS SUMMARY | 2025-05-21 09:45 | XMS_ITS | Encounter Summary ---
Author Organization [employer] ([place], [place], [place], [place], [place]) Address [address] [place] [address] Care Team Providers Care Mat Roller Name Role Phone Jonas Navas MD Primary Care Provider [phone] Marcell Uriostegui MD Primary Care Provider + [phone] Heidi Rivers APRN Primary Care Provider + [phone] Neptali Bergman MD Unavailable [phone] Encounter Details Date Type Department Care Team (Late st Contact Info) Description 07/27/2019 Transcribed Document [facility] [place] [address] ProviderJennifer MD [address] [place] [address] Social History Tobacco Use Types [...] - Jennifer ProviderMD - 07/27/2019 12:58 PM VETERINARY SURGEON RX Interventions Entered On: 07/27/2019 13:06 EST [...] Salome Eldridge, Pharmacist - 07/27/2019 13:05 EST documented in this encounter Plan of Treatment Upcoming Encounters Date Type Department Care Team (Late st Contact Info) Description 11/12/2025 3:30 PM EDT Office Visit [place] [facility] - [place] [address] [facility] [address] [place] [address] Neptali Bergman MD [address] [facility] [address] [place] [address] documented as of this encounter Visit Diagnoses Not on filedocumented in this encounter Care Teams Mat Roller Relationship Specialty Start Date End Date Jonas Navas MD [address] [facility] [address] [place], [place] [address] PCP - General Cardiothoracic Surgery 04/15/22 07/23/22 Marcell Uriostegui MD [address] [place] [address] [place] [address] PCP - General Adolescent Medicine 07/24/22 04/05/23 Heidi Rivers, COLOR DRUM WORKER [address] [place] [address] PCP - General Nurse Practitioner 04/06/23 Neptali Bergman MD [address] [facility] [address] [place] [address] Hematology and Oncology 10/31/24 documented as of this encounter
--- OUTSIDE RECORDS SUMMARY | 2025-05-21 09:45 | XMS_ITS | Encounter Summary ---
Author Organization [employer] ([place], [place], [place], [place], [place]) Address [address] [place] [address] Care Team Providers Care Inventory Worker Name Role Phone Jonas Navas MD Primary Care Provider [phone] Marcell Uriostegui MD Primary Care Provider + [phone] Heidi Rivers APRN Primary Care Provider + [phone] Neptali Bergman MD Unavailable [phone] Encounter Details Date Type Department Care Team (Late st Contact Info) Description 2020 Transcribed Document [facility] [place] [facility] [place] [address] ProviderJennifer MD [address] [place] [address] Social History Tobacco Use Types Packs/Day [...] On: 2020 12:58 EDT by JOSE AWAD, RN-Energy Engineer Initial Assessment I Previously Documented Living Environment : No qualifying data available. Living Situation : Home Patient Lives With : Spouse Emergency Contact #1 : Colten Yeh Emergency Contact #1 Phone Number : [phone] Emergency Contact #1 Relationship : Emergency Contact #2 : Colten Yeh Emergency Contact #2 Phone Number : [phone] cell# Emergency Contact #2 Relationship : Enter Doctors Name : Jordy Akers MD Does Patient have PCP Listed? : Yes Medical Durable Power of Biomedical Engineer Name : colten Yeh Legal Guardian : No Is Guardianship Needed : No JOSE AWAD, RN-Energy Engineer - 2020 12:58 EDT Initial Assessment II Sensory and Motor Deficits : None Current Home Treatments and Equipment : Blood glucose monitor, Oxygen therapy, Shower chair, Walker, Wheelchair Home Equipment Contact Information : [facility] [phone] Does the Patient have a Floor to SNF Benefit? : Yes JOSE AWAD, RN-Energy Engineer - 2020 12:58 EDT Discharge Needs I Anticipated Discharge Date : 12/07/2020 EDT Anticipated Discharge To, CM : Home with home health, Rehabilitation Unit, retirement facility, Other: [facility] Current Home Treatment/Equipment : Current Home Treatment/Equipment No qualifying data available. Post Acute/Home Treatments : Blood glucose monitor, Oxygen therapy, Shower chair, Walker, Wheelchair Documentation Status Complete : Yes JOSE AWAD, RN-Energy Engineer - 2020 12:58 EDT Discharge Needs II Professional Skilled Services : Professional Skilled Services No qualifying data available. Needs Assistance with Transportation : Maybe Discharge Options Discussed with Patient : Acute rehabilitation, Home Health, terminal operations manager rehabilitation, longterm JOSE AWAD, RN-Energy Engineer - 2020 12:58 EDT Narrative Note Narrative Note : admit today. elos: not recorded. RAR: low 37. BOOST: 3 from [facility]. acute resp failure. copd. lung ca-mets. pneumonia. htn. diabetes. anemia. hx: cad-[place] covid 19: negative -. mechancial ventilation. fentanyl gtt. precedex gtt. doxycycline/zosyn iv. solu medrol iv spoke with pt's spouse, Colten. they reside in [facility]. pt is adl independent. has mentioned equipment provided by [facility]. no hh or rehab stays. dcp: rehab vs home health. Colten, spouse, is legal next of kin: [phone] spoke with bedside RN, Breonna. JOSE AWAD, RN-Energy Engineer - 2020 12:58 EDT Electronically signed by Hossein [facility] Conversion Therapist'S Assistant Cerner at 09/10/2022 12:41 AM CDT documented in this encounter Plan of Treatment Upcoming Encounters Date Type Department Care Team (Late st Contact Info) Description 11/12/2025 3:30 PM EDT Office Visit [facility] [facility] - [place] [address] [place] [address] Neptali Bergman MD [address] [facility] [address] [place] [address] documented as of this encounter Visit Diagnoses Not on filedocumented in this encounter Care Teams Inventory Worker Relationship Specialty Start Date End Date Jonas Navas MD 14[address] [facility] [address] [place], [place] [address] PCP - General Cardiothoracic Surgery 04/15/22 07/23/22 Marcell Uriostegui MD [address] [place] [address] [place] [address] PCP - General Adolescent Medicine 07/24/22 04/05/23 Heidi Rivers, PIPE FITTER GAS PIPE [address] [place] [address] PCP - General Nurse Practitioner 04/06/23 Neptali Bergman MD [address] [facility] [address] [place] [address] Hematology and Oncology 10/31/24 documented as of this encounter
--- OUTSIDE RECORDS SUMMARY | 2025-05-21 09:45 | XMS_ITS | Encounter Summary ---
Author Organization [employer] ([place], [place], [place], [place], [place]) Address [address] [place] [address] Care Team Providers Care Stock Plan Administrator Name Role Phone Jonas Navas MD Primary Care Provider [phone] Marcell Uriostegui MD Primary Care Provider + [phone] Heidi Rivers APRN Primary Care Provider + [phone] Neptali Bergman MD Unavailable [phone] Encounter Details Date Type Department Care Team (Late st Contact Info) Description 07/27/2019 Transcribed Document [facility] [place] [facility] [place] [address] ProviderJennifer MD [address] [place] [address] Social History Tobacco Use Types Packs/Day [...] 07/27/2019 3:24 EST Electronically signed by Hossein [facility] Conversion Costume Director Cerner at 09/10/2022 12:41 AM CDT documented in this encounter Plan of Treatment Upcoming Encounters Date Type Department Care Team (Late st Contact Info) Description 11/12/2025 3:30 PM EDT Office Visit [place] [facility] - [place] [address] [facility] [address] [place] [address] Neptali Bergman MD [address] [facility] [address] [place] [address] documented as of this encounter Visit Diagnoses Not on filedocumented in this encounter Care Teams Stock Plan Administrator Relationship Specialty Start Date End Date Jonas Navas MD [address] [facility] [address] [place] [address] PCP - General Cardiothoracic Surgery 04/15/22 07/23/22 Marcell Uriostegui MD [address] [place] [address] PCP - General Adolescent Medicine 07/24/22 04/05/23 Heidi Rivers, ROMERO [address] [place] [address] PCP - General Nurse Practitioner 04/06/23 Neptali Bergman MD [address] [facility] [address] [place] [address] Hematology and Oncology 10/31/24 documented as of this encounter
--- OUTSIDE RECORDS SUMMARY | 2025-05-21 09:45 | XMS_ITS | Encounter Summary ---
Author Organization [employer] ([place], [place], [place], [place], [place]) Address [address] [place] [address] Care Team Providers Care Cardiovascular Specialist Name Role Phone Jonas Navas MD Primary Care Provider [phone] Marcell Uriostegui MD Primary Care Provider + [phone] Heidi Rivers APRN Primary Care Provider + [phone] Neptali Bergman MD Unavailable [phone] Encounter Details Date Type Department Care Team (Late st Contact Info) Description 07/26/2019 Transcribed Document [facility] [place] [facility] [place] [address] ProviderJennifer MD [address] [place] [address] Social History Tobacco Use Types Packs/Day Years Used Date Smoking Tobacco: Never Assessed Comments Unknown Sex and Gender Information Value Date Recorded Sex Assigned at Not on file Legal Sex Female 1:09 PM CDT Gender Identity Not on file Sexual Orientation Not on file documented as of this encounter Miscellaneous Notes * [employer] Conversion Note - Jennifer ProviderMD - 07/26/2019 2:00 AM EMS INSTRUCTOR Supervisor 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 Details Entered On: 07/26/2019 4:53 EST Performed [...] Vero Reveles, RN - 07/26/2019 4:52 EST Electronically signed by Kolby Catalan Conversion Hoop Bending Machine Operator Cerner at 09/10/2022 12:40 AM CDT documented in this encounter Plan of Treatment Upcoming Encounters Date Type Department Care Team (Late st Contact Info) Description 11/12/2025 3:30 PM EDT Office Visit [place] [facility] [place] [address] [facility] [address] [place] [address] Neptali Bergman MD [address] [place] [address] [address] [place] [address] documented as of this encounter Visit Diagnoses Not on filedocumented in this encounter Care Teams Cardiovascular Specialist Relationship Specialty Start Date End Date Jonas Navas MD [address] [facility] [address] [place] [address] PCP - General Cardiothoracic Surgery 04/15/22 07/23/22 Marcell Uriostegui MD [address] [place] [address] PCP - General Adolescent Medicine 07/24/22 04/05/23 Heidi Rivers, ROCK WOOL INSULATOR [address] [place] [address] PCP - General Nurse Practitioner 04/06/23 Neptali Bergman MD [address] [facility] [address] [place] [address] Hematology and Oncology 10/31/24 documented as of this encounter
--- OUTSIDE RECORDS SUMMARY | 2025-05-21 09:45 | XMS_ITS | Encounter Summary ---
Author Organization [employer] ([place], [place], [place], [place], [place]) Address [address] [place] [address] Care Team Providers Care National Accounts Sales Name Role Phone Jonas Navas MD Primary Care Provider [phone] Marcell Uriostegui MD Primary Care Provider + [phone] Heidi Rivers APRN Primary Care Provider + [phone] Neptali Bergman MD Unavailable [phone] Encounter Details Date Type Department Care Team (Late st Contact Info) Description 07/26/2019 Transcribed Document [facility] [place] [facility] [place] [address] ProviderJennifer MD [address] [place] [address] Social History Tobacco Use Types Packs/Day Years Used Date Smoking Tobacco: Never Assessed Comments Unknown Sex and Gender Information Value Date Recorded Sex Assigned at Not on file Legal Sex Female 1:09 PM CDT Gender Identity Not on file Sexual Orientation Not on file documented as of this encounter Miscellaneous Notes * Cerner Conversion Note - Jennifer ProviderMD - 07/26/2019 5:00 PM SNAILER Chart Check - Review Order Profile Entered On: 07/26/2019 16:27 EST Performed On: 07/26/2019 17:00 EST by Ya Gonzalez RN Chart Check Powerplans Initiated/Discontinued as Appropriate : Yes All Active Orders Reviewed : Yes Ya Gonzalez RN - 07/26/2019 16:27 EST Electronically signed by Hossein [facility] Conversion Cooler Conveyor Loader Cerner at 09/10/2022 12:31 AM CDT documented in this encounter Plan of Treatment Upcoming Encounters Date Type Department Care Team (Late st Contact Info) Description 11/12/2025 3:30 PM EDT Office Visit [place] [facility] - [place] [address] [place] [address] Neptali Bergman MD [address] [facility] [address] [place] [address] documented as of this encounter Visit Diagnoses Not on filedocumented in this encounter Care Teams National Accounts Sales Relationship Specialty Start Date End Date Jonas Navas MD [address] [facility] [address] [place] [address] PCP - General Cardiothoracic Surgery 04/15/22 07/23/22 Marcell Uriostegui MD [address] [facility] [address] [place] [address] PCP - General Adolescent Medicine 07/24/22 04/05/23 Hedii Rivers, ROMERO [address] [place] [address] PCP - General Nurse Practitioner 04/06/23 Neptali Bergman MD [address] [facility] [address] [place] [address] Hematology and Oncology 10/31/24 documented as of this encounter
--- OUTSIDE RECORDS SUMMARY | 2025-05-21 09:45 | XMS_ITS | Encounter Summary ---
Author Organization [employer] ([place], [place], [place], [place], [place]) Address [address] [place] [address] Care Team Providers Care Motor Mechanic Name Role Phone Jonas Navas MD Primary Care Provider [phone] Marcell Uriostegui MD Primary Care Provider + [phone] Heidi Rivers APRN Primary Care Provider + [phone] Neptali Bergman MD Unavailable [phone] Encounter Details Date Type Department Care Team (Late st Contact Info) Description 07/25/2019 Transcribed Document [facility] [place] [address] [place] [address] ProviderJennifer MD [address] [place] [address] Social History Tobacco Use Types Packs/Day Years Used Date Smoking Tobacco: Never Assessed Comments Unknown Sex and Gender Information Value Date Recorded Sex Assigned at Not on file Legal Sex Female 1:09 PM CDT Gender Identity Not on file Sexual Orientation Not on file documented as of this encounter Miscellaneous Notes * Cerner Conversion Note - Jennifer ProviderMD - 07/25/2019 6:05 AM FLIGHT OPERATIONS COORDINATOR Patient: ALEJANDRINA YEH Age: 63 years Sex: [...] Refill(s) fluticasone 50 mcg/inh nasal spray: 2 [place], Nasal, Daily, PRN: Congestion, 0 Refill(s) hydroCHLOROthiazide-lisinopril [...] Bedtime fluticasone 50 mcg/inh nasal spray 2 [place], PRN, Nasal, Daily hydroCHLOROthiazide-lisinopril 25 mg-20 mg [...] Current every day smoker / SNOMED CT 7606240026 / Confirmed Sleep apnea no c-pap / SNOMED CT 366178703 / Confirmed Sinusitis / SNOMED CT 45223251 / Confirmed Migraine / SNOMED CT 91588866 / Confirmed Hyperlipidemia / SNOMED CT 49168436 / Confirmed High blood pressure / SNOMED CT 40972748 / Confirmed Hiatal hernia / SNOMED CT 326852353 / Confirmed H/O: TIA / SNOMED CT 921386368 / Confirmed GERD - Gastro-esophageal reflux disease / SNOMED CT 6336025686 / Confirmed Shortness of breath / SNOMED CT 734638124 / Confirmed Diverticulosis / SNOMED CT 0707361447 / Confirmed Diabetes mellitus type II / SNOMED CT 91036432 / Confirmed Coronary artery disease s/p PR / SNOMED CT 2054095682 / Confirmed Claustrophobia / SNOMED CT 07449812 / Confirmed 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 Appendectomy ([id number]). cardiac cath with angioplasty. Colonoscopy ([id number]). Social History Social & Psychosocial Habits Alcohol [...] 24:) DBP 79 (JUL 24:) 79 (JUL 24:) 79 (JUL 24:) SpO2 L 91 (JUL [...] of motion, Normal strength. Integumentary: Warm, Dry, [place]. Neurologic: Alert, Oriented. Psychiatric: Cooperative, Appropriate mood [...] - [place] [address] [place] [address] Neptali Bergman MD [address] [facility] [address] [place] [address] documented as of this encounter Visit Diagnoses Not on filedocumented in this encounter Care Teams Motor Mechanic Relationship Specialty Start Date End Date Jonas Navas MD [address] [facility] [address] [place], [place] [address] PCP - General Cardiothoracic Surgery 04/15/22 07/23/22 Marcell Uriostegui MD [address] [facility] [address] [place] [address] PCP - General Adolescent Medicine 07/24/22 04/05/23 Heidi Rivers, ORNAMENTER [address] [place] [address] PCP - General Nurse Practitioner 04/06/23 Neptali Bergman MD [address] [facility] [address] [place] [address] Hematology and Oncology 10/31/24 documented as of this encounter
--- OUTSIDE RECORDS SUMMARY | 2025-05-21 09:45 | XMS_ITS | Encounter Summary ---
Author Organization [employer] ([place], [place], [place], [place], [place]) Address [address] [place] [address] Care Team Providers Care Property Specialist Name Role Phone Jonas Navas MD Primary Care Provider [phone] Marcell Uriostegui MD Primary Care Provider + [phone] Heidi Rivers APRN Primary Care Provider + [phone] Neptali Bergman MD Unavailable [phone] Encounter Details Date Type Department Care Team (Late st Contact Info) Description 2020 Transcribed Document [facility] [place] [facility] [address] ProviderJennifer MD [address] [place] [address] Social History Tobacco Use Types Packs/Day [...] Consult, Additional Information : [place] - [facility] 9:08 EDT documented in this encounter Plan of Treatment Upcoming Encounters Date Type Department Care Team (Late st Contact Info) Description 11/12/2025 3:30 PM EDT Office Visit [place] [facility] - [place] [address] [place] [address] Neptali Bergman MD [address] [facility] [address] [place] [address] documented as of this encounter Visit Diagnoses Not on filedocumented in this encounter Care Teams Property Specialist Relationship Specialty Start Date End Date Jonas Navas MD [address] [facility] [address] [place], [place] [address] PCP - General Cardiothoracic Surgery 04/15/22 07/23/22 Marcell Uriostegui MD [address] [place] [address] PCP - General Adolescent Medicine 07/24/22 04/05/23 Heidi Rivers, CUTTER MACHINE TENDER [address] [place] [address] PCP - General Nurse Practitioner 04/06/23 Neptali Bergman MD [address] [facility] [address] [place] [address] Hematology and Oncology 10/31/24 documented as of this encounter
--- OUTSIDE RECORDS SUMMARY | 2025-05-21 09:45 | XMS_ITS | Encounter Summary ---
Author Organization [employer] ([place], [place], [place], [place], [place]) Address [address] [place] [address] Care Team Providers Care Paid Search Marketing Strategist Name Role Phone Jonas Navas MD Primary Care Provider [phone] Marcell Uriostegui MD Primary Care Provider + [phone] Heidi Rivers APRN Primary Care Provider + [phone] Neptali Bergman MD Unavailable [phone] Encounter Details Date Type Department Care Team (Late st Contact Info) Description 07/25/2019 Transcribed Document [facility] [place] Family Medicine [facility]ly [facility], [facility] [place] [address] ProviderJennifer MD [address] [place] [address] Social History Tobacco Use Types Packs/Day Years Used Date Smoking Tobacco: Never Assessed Comments Unknown Sex and Gender Information Value Date Recorded Sex Assigned at Not on file Legal Sex Female 1:09 PM CDT Gender Identity Not on file Sexual Orientation Not on file documented as of this encounter Miscellaneous Notes * Cerner Conversion Note - Jennifer ProviderMD - 07/25/2019 10:23 AM CRIME LAB ANALYST Pain Assessment Entered On: 07/25/2019 13:44 EST Performed On: 07/25/2019 12:05 EST by Omid Sanz, RN Intervention Information: HYDROmorphone Performed by Omid Sanz, RN on 07/25/2019 11:35:00 EST HYDROmorphone,0.5mg IV Push,Right Hand,Pain (Severe 7-10) Pain Assessment Pain Assessment : Follow-up assessment Pain Scale Goal : 5 Pain Location Comment : pt asleep Omid Sanz RN - 07/25/2019 13:44 EST Electronically signed by Kolby Catalan Conversion Drug And Alcohol Treatment Specialist Cerner at 09/10/2022 12:49 AM CDT documented in this encounter Plan of Treatment Upcoming Encounters Date Type Department Care Team (Late st Contact Info) Description 11/12/2025 3:30 PM EDT Office Visit [place] [facility] - [place] [address] [place] [address] Neptali Bergman MD [address] [facility] [address] [place] [address] documented as of this encounter Visit Diagnoses Not on filedocumented in this encounter Care Teams Paid Search Marketing Strategist Relationship Specialty Start Date End Date Jonas Navas MD [address] [facility] [address] [place] [address] PCP - General Cardiothoracic Surgery 04/15/22 07/23/22 Marcell Uriostegui MD [address] [place] [address] PCP - General Adolescent Medicine 07/24/22 04/05/23 Heidi Rivers, ROMERO [address] [place] [address] PCP - General Nurse Practitioner 04/06/23 Neptali Bergman MD [address] [facility] [address] [place] [address] Hematology and Oncology 10/31/24 documented as of this encounter
--- OUTSIDE RECORDS SUMMARY | 2025-05-21 09:45 | XMS_ITS | Encounter Summary ---
Author Organization [employer] ([place], [place], [place], [place], [place]) Address [address] [place] [address] Care Team Providers Care Brim Setter Name Role Phone Jonas Navas MD Primary Care Provider [phone] Marcell Uriostegui MD Primary Care Provider + [phone] Heidi Rivers APRN Primary Care Provider + [phone] Lu Bergman MD Unavailable [phone] Encounter Details Date Type Department Care Team (Late st Contact Info) Description 12/05/2020 Transcribed Document [facility] [place] [address] [place] [address] ProviderJennifer MD [address] [place] [address] Social History Tobacco Use Types Packs/Day [...] 0.9% 100 mL 100 mg, IV Piggyback, [id number] heparin 5,000 units/1 mL inj 5,000 Units [...] be sign of progeression and poor outcome. documented in this encounter Plan of Treatment Upcoming Encounters Date Type Department Care Team (Late st Contact Info) Description 11/12/2025 3:30 PM EDT Office Visit [place] [facility] - [address] [place] [address] Lu Bergman MD 3470 [facility] [address] [place] [address] documented as of this encounter Visit Diagnoses Not on filedocumented in this encounter Care Teams Brim Setter Relationship Specialty Start Date End Date Jonas Navas MD [address] [facility] [address] [place], [place] [address] PCP - General Cardiothoracic Surgery 04/15/22 07/23/22 Marcell Uriostegui MD [address] [place] [address] PCP - General Adolescent Medicine 07/24/22 04/05/23 Heidi Rivers, CATTLE RANCHER 2017 [facility] [address] [place] [address] PCP - General Nurse Practitioner 04/06/23 Lu Bergman MD [address] [address] Hematology and Oncology 10/31/24 documented as of this encounter
--- OUTSIDE RECORDS SUMMARY | 2025-05-21 09:45 | XMS_ITS | Encounter Summary ---
Author Organization [employer] ([place], [place], [place], [place], [place]) Address [address] [place] [address] Care Team Providers Care Mobile Practice Lead Name Role Phone Jonas Navas MD Primary Care Provider [phone] Marcell Uriostegui MD Primary Care Provider + [phone] Heidi Rivers APRN Primary Care Provider + [phone] Neptali Bergman MD Unavailable [phone] Encounter Details Date Type Department Care Team (Late st Contact Info) Description 12/05/2020 Transcribed Document [facility] [place] Family Medicine Counts include 234 beds at the [facility] [place] [address] ProviderJennifer MD [address] [place] [address] Social History Tobacco Use Types [...] 12/05/2020 6:01 EDT by Yeni Lenz, PATIENT SOLAR APPLICATIONS DEVELOPMENT ENGINEER I Height and Weight, Routine Routine Weight Source : Bed scale Routine Weight Entry Format : Metric Routine Weight, Kilograms : 83.2 kg(Converted to: 183 lb 7 oz) Routine Weight Calculation : 83.2 kg Height Source : Chart Height Entry Format : [place] Height, Feet : 5 ft Height, Inches : 2 Inch Clinical Height : 157.48 cm Body Surface Area (BSA), Routine : 1.84 m2 Body Mass Index (BMI), Routine : 33.55 kg/m2 Yeni Lenz, PATIENT SOLAR APPLICATIONS DEVELOPMENT ENGINEER I - 12/05/2020 6:01 EDT Electronically signed by Hossein, [facility] Conversion Pattern Finisher Cerner at 09/10/2022 12:44 AM CDT documented in this encounter Plan of Treatment Upcoming Encounters Date Type Department Care Team (Late st Contact Info) Description 11/12/2025 3:30 PM EDT Office Visit [place] [facility] - [address] [place] [address] Neptali Bergman MD [address] [facility] [address] [place] [address] documented as of this encounter Visit Diagnoses Not on filedocumented in this encounter Care Teams Mobile Practice Lead Relationship Specialty Start Date End Date Jonas Navas MD 1401 [facility] [address] [place], [place] [id number] PCP - General Cardiothoracic Surgery 04/15/22 07/23/22 Marcell Uriostegui MD [address] [place] [address] PCP - General Adolescent Medicine 07/24/22 04/05/23 Heidi Rivers, CONCRETE STONE FINISHER [address] [place] [address] PCP - General Nurse Practitioner 04/06/23 [place] [address] [place] [address] [address] [place] [address] Hematology and Oncology 10/31/24 documented as of this encounter
--- OUTSIDE RECORDS SUMMARY | 2025-05-21 09:45 | XMS_ITS | Encounter Summary ---
Author Organization [employer] ([place], [place], [place], [place], [place]) Address [address] [place] [address] Care Team Providers Care Firearms Specialist Name Role Phone Jonas Navas MD Primary Care Provider [phone] Marcell Uriostegui MD Primary Care Provider + [phone] Heidi Rivers APRN Primary Care Provider + [phone] Lu Bergman MD Unavailable [phone] Encounter Details Date Type Department Care Team (Late st Contact Info) Description 2020 Transcribed Document [facility] [place] [facility] [place] [address] ProviderJennifer MD [address] [place] [address] Social History Tobacco Use Types Packs/Day [...] patient already being seen by Natalia Plata, [facility] - 2020 9:10 EDT documented in this encounter Plan of Treatment Upcoming Encounters Date Type Department Care Team (Late st Contact Info) Description 11/12/2025 3:30 PM EDT Office Visit [facility] - [facility] [address] [place] [address] [address] [place] [address] [place] [address] [place] [address] [address] [place] [address] documented as of this encounter Visit Diagnoses Not on filedocumented in this encounter Care Teams Firearms Specialist Relationship Specialty Start Date End Date Jonas Navas MD 1401 [facility] [address] [place], [place] [address] PCP - General Cardiothoracic Surgery 04/15/22 07/23/22 Marcell Uriostegui MD [address] [place] [address] PCP - General Adolescent Medicine 07/24/22 04/05/23 Heidi Rivers, DRY HOUSE WHEELER [address] [place] [address] PCP - General Nurse Practitioner 04/06/23 Lu Bergman MD 8410 [facility] [place] [facility] [address] [place] [address] Hematology and Oncology 10/31/24 documented as of this encounter
--- OUTSIDE RECORDS SUMMARY | 2025-05-21 09:46 | XMS_ITS | Encounter Summary ---
Author Organization [employer] ([place], [place], [place], [place], [place]) Address [address] [place] [address] Care Team Providers Care Application Infrastructure Engineer Name Role Phone Jonas Navas MD Primary Care Provider [phone] Marcell Uriostegui MD Primary Care Provider + [phone] Heidi Rivers APRN Primary Care Provider + [phone] Neptali Bergman MD Unavailable [phone] Encounter Details Date Type Department Care Team (Late st Contact Info) Description 12/07/2020 Transcribed Document [facility] [place] [facility] [place] [address] ProviderJennifer MD [address] [place] [address] Social History Tobacco Use Types Packs/Day [...] being away on vacation per Karma our correctional case manager for the day. She told me there was nothing else to do about the consult which was passed on to the pt's nurse Shalini. Riddhi English, Belt Repairer-[facility] - 12/07/2020 17:52 EDT Electronically signed by Hossein [facility] Conversion Strategy Manager Cerner at 09/10/2022 12:34 AM CDT documented in this encounter Plan of Treatment Upcoming Encounters Date Type Department Care Team (Late st Contact Info) Description 11/12/2025 3:30 PM EDT Office Visit [place] [facility] - [address] [place] [address] Neptali Bergman MD [address] [place] [address] [address] [place] [address] documented as of this encounter Visit Diagnoses Not on filedocumented in this encounter Care Teams Application Infrastructure Engineer Relationship Specialty Start Date End Date Jonas Nvaas MD 1401 [facility] [address] [place] [address] PCP - General Cardiothoracic Surgery 04/15/22 07/23/22 Marcell Uriostegui MD [address] [place] [address] PCP - General Adolescent Medicine 07/24/22 04/05/23 Heidi Rivers, BOAT CANVAS INSTALLER [address] [place] [address] PCP - General Nurse Practitioner 04/06/23 Neptali Bergman MD [address] [place] [address] [address] [place] [address] Hematology and Oncology 10/31/24 documented as of this encounter
--- OUTSIDE RECORDS SUMMARY | 2025-05-21 09:46 | XMS_ITS | Encounter Summary ---
Author Organization [employer] ([place], [place], [place], [place], [place]) Address [address] [place] [address] Care Team Providers Care Catering Staff Member Name Role Phone Jonas Navas MD Primary Care Provider [phone] Marcell Uriostegui MD Primary Care Provider + [phone] Heidi Rivers APRN Primary Care Provider + [phone] Neptali Bergman MD Unavailable Encounter Details Date Type Department Care Team (Late st Contact Info) Description 07/27/2019 Transcribed Document [facility] [place] Family [place] [facility] [place] [address] ProviderJennifer MD [address] [place] [address] Social History Tobacco Use Types Packs/Day Years Used Date Smoking Tobacco: Never Assessed Comments Unknown Sex and Gender Information Value Date Recorded Sex Assigned at Not on file Legal Sex Female 1:09 PM CDT Gender Identity Not on file Sexual Orientation Not on file documented as of this encounter Miscellaneous Notes * Cerner Conversion Note - Jennifer ProviderMD - 07/27/2019 4:59 PM FLY SETTER Treatment Intervention, PT Entered On: 08/02/2019 10:02 [...] : 07/26/2019 12:00 Atherosclerotic heart disease of [place] coronary artery without angina pectoris 07/26/2019 12:00 [...] Medina, PT Student - 08/02/2019 10:03 EDT Assisted Goals Mobility/Bed Mobility LTG PT Grid Goal [...] PTx. RN Heidi victoria PTx. Discussed with leather case finisher Mi: during ambulation, patient's SpO2 ranged from [...] Description 11/12/2025 3:30 PM EDT Office Visit [place] [facility] - [place] [place] [address] Neptali Bergman MD 6[address] [facility] [address] [place] [address] documented as of this encounter Visit Diagnoses Not on filedocumented in this encounter Care Teams Catering Staff Member Relationship Specialty Start Date End Date Jonas Navas MD 1401 [facility] [address] [place] [address] PCP - General Cardiothoracic Surgery 04/15/22 07/23/22 Marcell Uriostegui MD [address] [place] [address] PCP - General Adolescent Medicine 07/24/22 04/05/23 Heidi Rivers APRN [address] [place] [address] PCP - General Nurse Practitioner 04/06/23 Neptali Bergman MD [address] [facility] [address] [place] [address] Hematology and Oncology 10/31/24 documented as of this encounter
--- OUTSIDE RECORDS SUMMARY | 2025-05-21 09:46 | XMS_ITS | Encounter Summary ---
Author Organization [employer] ([place], [place], [place], [place], [place]) Address [address] [place] [address] Care Team Providers Care Director Of Sales Support Name Role Phone Jonas Navas MD Primary Care Provider [phone] Marcell Uriostegui MD Primary Care Provider + [phone] Heidi Rivers APRN Primary Care Provider + [phone] Neptali Bergman MD Unavailable [phone] Encounter Details Date Type Department Care Team (Late st Contact Info) Description 12/06/2020 Transcribed Document [facility] [place] [address] [place] [address] ProviderJennifer MD [address] [place] [address] Social History Tobacco Use Types Packs/Day [...] Man 5 % (Low) 12/06/2020 07:37 EDT [place] Percent Man 2 % (Low) 12/06/2020 07:37 [...] ng/mL 12/06/2020 07:37 EDT Electronically signed by [facility], [facility] Conversion Patient Financial Counselor Cerner at 09/10/2022 12:36 AM CDT documented in this encounter Plan of Treatment Upcoming Encounters Date Type Department Care Team (Late st Contact Info) Description 11/12/2025 3:30 PM EDT Office Visit [place] [facility] - [address] [facility] [address] [place] [address] Neptali Bergman MD [address] [place] [address] documented as of this encounter Visit Diagnoses Not on filedocumented in this encounter Care Teams Director Of Sales Support Relationship Specialty Start Date End Date Jonas Navas MD 1401 [facility] [address] [place] [address] PCP - General Cardiothoracic Surgery 04/15/22 07/23/22 Marcell Uriostegui MD [facility] [facility] [address] [place] [address] PCP - General Adolescent Medicine 07/24/22 04/05/23 Heidi Rivers APRN 2017 [facility] [address] [place], [place] [address] PCP - General Nurse Practitioner 04/06/23 Neptali Bergman MD [address] [facility] [address] [place] [address] Hematology and Oncology 10/31/24 documented as of this encounter
--- OUTSIDE RECORDS SUMMARY | 2025-05-21 09:46 | XMS_ITS | Encounter Summary ---
Author Organization [employer] ([place], [place], [place], [place], [place]) Address [address] [place] [address] Care Team Providers Care Evaporator Name Role Phone Jonas Navas MD Primary Care Provider [phone] Marcell Uriostegui MD Primary Care Provider + [phone] Heidi Rivers APRN Primary Care Provider + [phone] Neptali Bergman MD Unavailable [phone] Encounter Details Date Type Department Care Team (Late st Contact Info) Description 07/31/[address] [facility] [place] Family Medicine [address] [place] [address] ProviderJennifer MD [address] [place] [address] Social History Tobacco Use Types Packs/Day [...] 07/31/2019 17:45 EDT by ANASTASIA DA SILVA RN-Spinning Frame CleanerApplication Integration Specialist Progress Note Discharge Arrangements : Patient Post-Acute [...] Attend Multidisciplinary Rounds? : Yes ANASTASIA DA SILVA, RN-Spinning Frame Cleaner - 07/31/2019 17:45 EDT Narrative Progress Note [...] (760ml/24hrs), epidural and sargent remain in place, YD=801' with rwx/O2/suction. DCP: to return home with family (watch for possible O2 needs). CM will continue to follow. STEWART AYALA, Sales Team Manager - 07/28/19 16:32:45 CTS encouraging pt to be up in chair OOB; anticipate possible transfer out of [facility] later today; anticipate home with spouse when stable; monitor for home oxygen need. ALEXUS LEON, Rn-Spinning Frame Cleaner - 07/26/19 09:54:47 ANASTASIA DA SILVA RN-Spinning Frame Cleaner - 07/31/2019 17:45 EDT documented in this encounter Plan of Treatment Upcoming Encounters Date Type Department Care Team (Late st Contact Info) Description 11/12/2025 3:30 PM EDT Office Visit [place] [facility] - [address] [place] [address] Neptali Bergman MD [address] [place] [address] [place] [address] documented as of this encounter Visit Diagnoses Not on filedocumented in this encounter Care Teams Evaporator Relationship Specialty Start Date End Date Jonas Navas MD 1401 [facility] [address] [place] [address] PCP - General Cardiothoracic Surgery 04/15/22 07/23/22 Marcell Uriostegui MD [address] [facility] [address] [place] [address] PCP - General Adolescent Medicine 07/24/22 04/05/23 Heidi Rivers APRN 2017 [facility] [address] [place] [address] PCP - General Nurse Practitioner 04/06/23 Neptali Bergman MD 3470 [facility] [address] [place] [address] Hematology and Oncology 10/31/24 documented as of this encounter
--- OUTSIDE RECORDS SUMMARY | 2025-05-21 09:46 | XMS_ITS | Encounter Summary ---
Author Organization [employer] ([place], [place], [place], [place], [place]) Address [address] [place] [address] Care Team Providers Care Marketing Program Manager Name Role Phone Jonas Navas MD Primary Care Provider [phone] Marcell Uriostegui MD Primary Care Provider + [phone] Heidi Rivers APRN Primary Care Provider + [phone] Neptali Bergman MD Unavailable [phone] Encounter Details Date Type Department Care Team (Late st Contact Info) Description 07/31/2019 Transcribed Document [facility] [place] Family Medicine Replaced by [facility] [address] ProviderJennifer MD [address] [place] [address] Social History Tobacco Use Types Packs/Day [...] Jennifer ProviderMD - 07/31/2019 2:00 AM CDT Dress Marker Details Entered On: 07/31/2019 7:07 EDT Performed [...] Description 11/12/2025 3:30 PM EDT Office Visit [place] [facility] - [address] [facility] [address] [place] [address] Neptali Bergman MD [address] [place] [address] [address] [place] [address] documented as of this encounter Visit Diagnoses Not on filedocumented in this encounter Care Teams Marketing Program Manager Relationship Specialty Start Date End Date Jonas Navas MD 1401 [facility] [address] [place] [address] PCP - General Cardiothoracic Surgery 04/15/22 07/23/22 Marcell Uriostegui MD [address] [place] [address] PCP - General Adolescent Medicine 07/24/22 04/05/23 Heidi Rivers, WIDTH STRIPPER [address] [place] [address] PCP - General Nurse Practitioner 04/06/23 Neptali Bergman MD 54[address] [facility] [address] [place] [address] Hematology and Oncology 10/31/24 documented as of this encounter
--- OUTSIDE RECORDS SUMMARY | 2025-05-21 09:46 | XMS_ITS | Encounter Summary ---
Author Organization [employer] ([place], [place], [place], [place], [place]) Address [address] [place] [address] Care Team Providers Care Family Resource Coordinator Name Role Phone Jonas Navas MD Primary Care Provider [phone] Marcell Uriostegui MD Primary Care Provider + [phone] Heidi Rivers APRN Primary Care Provider + [phone] Neptali Bergman MD Unavailable [phone] Encounter Details Date Type Department Care Team (Late st Contact Info) Description 07/26/2019 Transcribed Document [facility] [place] [address] ProviderJennifer MD [address] [place] [address] Social History Tobacco Use Types Packs/Day Years Used Date Smoking Tobacco: Never Assessed Comments Unknown Sex and Gender Information Value Date Recorded Sex Assigned at Not on file Legal Sex Female 1:09 PM CDT Gender Identity Not on file Sexual Orientation Not on file documented as of this encounter Miscellaneous Notes * Cerner Conversion Note - Jennifer ProviderMD - 07/26/2019 11:26 AM RETAIL ACCOUNT SPECIALIST Patient: ALEJANDRINA YEH Age: 63 years Sex: [...] Push, Q6H fluticasone 0.05% nasal spray 2 [place], Nasal, Daily magnesium hydroxide 8% liq 30 [...] d/c epidural if she spikes a fever. documented in this encounter Plan of Treatment Upcoming Encounters Date Type Department Care Team (Late st Contact Info) Description 11/12/2025 3:30 PM EDT Office Visit [place] [facility] - [place] [place] [address] [address] [place] [address] Neptali Bergman MD 3470 [facility] [address] [place] [address] documented as of this encounter Visit Diagnoses Not on filedocumented in this encounter Care Teams Family Resource Coordinator Relationship Specialty Start Date End Date Jonas Navas MD 14[address] [facility] [address] [place], [place] [address] PCP - General Cardiothoracic Surgery 04/15/22 07/23/22 Marcell Uriostegui MD [address] [place] [address] PCP - General Adolescent Medicine 3/3/23 11/13/23 Heidi Rivers APRN 2017 [facility] [address] [place] [address] PCP - General Nurse Practitioner 04/06/23 Neptali Bergman MD 4785 [facility] [address] [place] [address] Hematology and Oncology 10/31/24 documented as of this encounter
--- OUTSIDE RECORDS SUMMARY | 2025-05-21 09:46 | XMS_ITS | Encounter Summary ---
Author Organization [employer] ([place], [place], [place], [place], [place]) Address [address] [place] [address] Care Team Providers Care Custom Shop Worker Name Role Phone Jonas Navas MD Primary Care Provider [phone] Marcell Uriostegui MD Primary Care Provider + [phone] Heidi Rivers APRN Primary Care Provider + [phone] Neptali Bergman MD Unavailable [phone] Encounter Details Date Type Department Care Team (Late st Contact Info) Description 07/29/2019 Transcribed Document [facility] [place] Family Medicine [facility] [address] ProviderJennifer MD [address] [place] [address] Social History Tobacco Use Types Packs/Day Years Used Date Smoking Tobacco: Never Assessed Comments Unknown Sex and Gender Information Value Date Recorded Sex Assigned at Not on file Legal Sex Female 1:09 PM CDT Gender Identity Not on file Sexual Orientation Not on file documented as of this encounter Miscellaneous Notes * Cerner Conversion Note - Jennifer ProviderMD - 07/29/2019 5:00 PM POWER SYSTEM DISPATCHER Chart Check - Review Order Profile Entered On: 07/29/2019 18:56 EST Performed On: 07/29/2019 17:00 EST by Lynette Malloy, RN Chart Check All Active Orders Reviewed : Yes Lynette Malloy RN - 07/29/2019 18:56 EST Electronically signed by Hossein [facility] Conversion Parliamentary Archivist Cerner at 09/10/2022 12:36 AM CDT documented in this encounter Plan of Treatment Upcoming Encounters Date Type Department Care Team (Late st Contact Info) Description 11/12/2025 3:30 PM EDT Office Visit [place] [facility] - [address] [facility] [address] [place] [phone] Neptali Bergman MD [address] [facility] [address] [place] [address] documented as of this encounter Visit Diagnoses Not on filedocumented in this encounter Care Teams Custom Shop Worker Relationship Specialty Start Date End Date Jonas Navas MD [address] [facility] [address] [place] [address] PCP - General Cardiothoracic Surgery 04/15/22 07/23/22 Marcell Uriostegui MD [address] [place] [address] PCP - General Adolescent Medicine 07/24/22 04/05/23 Heidi Rivers, ROMERO [address] [place] [address] PCP - General Nurse Practitioner 04/06/23 Neptali Bergman MD [address] [facility] [address] [place] [address] Hematology and Oncology 10/31/24 documented as of this encounter
--- OUTSIDE RECORDS SUMMARY | 2025-05-21 09:46 | XMS_ITS | Encounter Summary ---
Author Organization [employer] ([place], [place], [place], [place], [place]) Address [address] [place] [address] Care Team Providers Care Monitoring Specialist Name Role Phone Jonas Navas MD Primary Care Provider [phone] Marcell Uriostegui MD Primary Care Provider + [phone] Heidi Rivers APRN Primary Care Provider + [phone] Neptali Bergman MD Unavailable [phone] Encounter Details Date Type Department Care Team (Late st Contact Info) Description 12/06/2020 Transcribed Document [facility] Pulm & Critical Care Medicine [address] [place] [address] [address] [place] [address] [place] [address] [address] [place] [id number] Social History Tobacco Use Types Packs/Day Years [...] abdominal metastases, COPD, NIDDM, GERD, HLD, HTN, WA, TIA, and CAD who presents to our facility from [facility]. Patient is currently intubated, sedated, and [...] ALINA lobectomy COPD NIDDM GERD HLD HTN WA TIA CAD Past Surgical History ALINA lobectomy [...] mL: 100 mg, 50 mL/Hr, IV Piggyback, P00GTii fentaNYL injection 1,000 mcg + Premix Diluent [...] Refill(s) fluticasone 50 mcg/inh nasal spray: 2 [place], Nasal, Daily, PRN: Nasal Congestion, 0 Refill(s) [...] 0.9% 100 mL 100 mg, IV Piggyback, T89KHau famotidine 20 mg tab 20 mg 1 [...] - Lung cancer adenocarcinoma / SNOMED CT 3512607540 / Confirmed Claustrophobia / SNOMED CT 61777326 / Confirmed Diabetes mellitus type II / SNOMED CT 73958818 / Confirmed Diverticulosis / SNOMED CT 3179437180 / Confirmed Shortness of breath / SNOMED CT 352911120 / Confirmed GERD - Gastro-esophageal reflux disease / SNOMED CT 7053922935 / Confirmed Hiatal hernia / SNOMED CT 335309214 / Confirmed History of obstructive sleep apnea / IMO 53991662 / Confirmed Inactive: Seasonal allergies / SNOMED CT 4587470605 Canceled: Chronic cough / SNOMED CT 011016250 Canceled: History of obstructive sleep apnea - no c-pap / IMO 14696986 Canceled: History of obstructive sleep apnea / IMO 01713846 Canceled: Current every day smoker / SNOMED CT 7161998958, Active Problems (18) Arthritis Back pain CA - Lung cancer adenocarcinoma 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 Claustrophobia Coronary artery disease s/p WA Diabetes mellitus type II Diverticulosis GERD - [...] Non-distended, Normal bowel sounds. Integumentary: Warm, Dry, [place]. Neurologic: Alert, Oriented, No focal deficits, however [...] 12/05/2020 13:41 Radiology Results (Last 48 hours) [id number] -- 2020 00:20 CR Chest 1 Vw [...] final transcribed report. 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 Negative procalcitonin, no [...] Description 11/12/2025 3:30 PM EDT Office Visit [place] [facility] - [address] [place] [address] Neptali Bergman MD [address] [facility] [address] [place] [address] documented as of this encounter Visit Diagnoses Not on filedocumented in this encounter Care Teams Monitoring Specialist Relationship Specialty Start Date End Date Jonas Navas MD [address] [facility] [address] [place] [address] PCP - General Cardiothoracic Surgery 04/15/22 07/23/22 Marcell Uriostegui MD [address] [place] [address] PCP - General Adolescent Medicine 07/24/22 04/05/23 Heidi Rivers APRN [address] [facility] [address] [place], [place] [address] PCP - General Nurse Practitioner 04/06/23 Neptali Bergman MD [address] [facility] [address] [place] [address] Hematology and Oncology 10/31/24 documented as of this encounter
--- OUTSIDE RECORDS SUMMARY | 2025-05-21 09:46 | XMS_ITS | Encounter Summary ---
Author Organization [employer] ([place], [place], [place], [place], [place]) Address [address] [place] [address] Care Team Providers Care Car Examiner Name Role Phone Jonas Navas MD Primary Care Provider [phone] Marcell Uriostegui MD Primary Care Provider + [phone] Heidi Rivers APRN Primary Care Provider + [phone] Neptali Bergman MD Unavailable [phone] Encounter Details Date Type Department Care Team (Late st Contact Info) Description 12/06/2020 Transcribed Document [facility] [place] [facility] [place] [address] ProviderJennifer MD [address] [place] [address] Social History Tobacco Use Types Packs/Day [...] On: 12/06/2020 14:24 EDT by KISHORE MCKEON, RN-Manager ConcreteMaintenance Truck Driver Progress Note Discharge Arrangements : Patient Post-Acute Information Patient Name: DHAVAL YEHYCRonen Hardwick Gender: Female : 55 Age: 65 Years No Post-Acute Placement(s) Listed No Post-Acute Service(s) Listed No Curaspan Referral(s) Listed Discharge Options Discussed with Patient : Acute rehabilitation, Home Health, shelter rehabilitation, [facility] Barriers to Discharge Identified : Clinical Condition of Patient Barriers to Discharge Unresolved : Clinical Condition of Patient Is the Patient Meeting Medical Necessity : Yes Did you Attend Multidisciplinary Rounds? : Yes KISHORE MCKEON, RN-Manager Concrete - 12/06/2020 14:24 EDT Narrative Progress Note [...] evals to assist with DCP. KISHORE MCKEON RN-Manager Concrete - 12/05/20 15:13:54 KISHORE MCKEON RN-Manager Concrete - 12/06/2020 14:24 EDT documented in this encounter Plan of Treatment Upcoming Encounters Date Type Department Care Team (Late st Contact Info) Description 11/12/2025 3:30 PM EDT Office Visit [place] [facility] - [address] [facility] [address] [place] [address] Neptali Bergman MD [address] [place] [address] documented as of this encounter Visit Diagnoses Not on filedocumented in this encounter Care Teams Car Examiner Relationship Specialty Start Date End Date Jonas Navas MD [address] [facility] [address] [place], [place] [address] PCP - General Cardiothoracic Surgery 04/15/22 07/23/22 Marcell Uriostegui MD [address] [facility] [address] [place] [address] PCP - General Adolescent Medicine 07/24/22 04/05/23 Heidi Rivers, SAP MOBILITY ARCHITECT [address] [facility] [address] [place] [address] PCP - General Nurse Practitioner 04/06/23 Neptali Bergman MD [address] [facility] [address] [place] [address] Hematology and Oncology 10/31/24 documented as of this encounter
--- OUTSIDE RECORDS SUMMARY | 2025-05-21 09:46 | XMS_ITS | Encounter Summary ---
Author Organization [employer] ([place], [place], [place], [place], [place]) Address [address] [place] [address] Care Team Providers Care Software Engineer Name Role Phone Jonas Navas MD Primary Care Provider [phone] Marcell Uriostegui MD Primary Care Provider + [phone] Heidi Rivers APRN Primary Care Provider + [phone] Neptali Bergman MD Unavailable [phone] Encounter Details Date Type Department Care Team (Late st Contact Info) Description 07/29/2019 Transcribed Document [facility] [place] Family Medicine [address] [place] [address] ProviderJennifer MD [address] [place] [address] Social History Tobacco Use Types Packs/Day Years Used Date Smoking Tobacco: Never Assessed Comments Unknown Sex and Gender Information Value Date Recorded Sex Assigned at Not on file Legal Sex Female 1:09 PM CDT Gender Identity Not on file Sexual Orientation Not on file documented as of this encounter Miscellaneous Notes * Cerner Conversion Note - Jennifer ProviderMD - 07/29/2019 10:36 AM DOUBLE NEEDLE OPERATOR LOCKSTITCH Patient: ALEJANDRINA YEH Age: 63 years Sex: Female : 1955 Associated Diagnoses: None Author: ZENOBIA DE LEON PA Admission Date: \20 Discharge Date: Attending: Dr. Jonas Navas, [place] Surgery PCP: Dr. Jordy Akers ( [facility] Internal Medicine, ) Consultants: Brief [...] Lt Chest incision>> aquacell dressing Tolerates PO Sctot secondary to epidural Last BM>> 3\2 Neurologic: Alert, Oriented. Results Review General results Interpretation: Radiology Results (Last 48 hours) [id number] -- 07/25/2019 07:00 CR Chest 1 Vw [...] to a chair Encouraged IS Transfer to [facility] 07/27/19 POD#2 O2 92% on 4 [...] waterseal Begun on Lasix 40 mg daily Electronically signed by Hossein [facility] Conversion Clark Driver Cerner at 09/10/2022 12:45 AM CDT documented in this encounter Plan of Treatment Upcoming Encounters Date Type Department Care Team (Late st Contact Info) Description 11/12/2025 3:30 PM EDT Office Visit [place] [facility] - [place] [address] [facility] [address] [place] [address] Neptali Bergman MD [address] [facility] [address] [place] [address] documented as of this encounter Visit Diagnoses Not on filedocumented in this encounter Care Teams Software Engineer Relationship Specialty Start Date End Date Jonas Navas MD [address] [facility] [address] [place], [place] [address] PCP - General Cardiothoracic Surgery 04/15/22 07/23/22 Marcell Uriostegui MD [address] [place] [address] PCP - General Adolescent Medicine 07/24/22 04/05/23 Heidi Rivers APRN [address] [facility] [address] [place] [address] PCP - General Nurse Practitioner 04/06/23 Neptali Bergman MD [address] [facility] [address] [place] [address] Hematology and Oncology 10/31/24 documented as of this encounter
--- OUTSIDE RECORDS SUMMARY | 2025-05-21 09:46 | XMS_ITS | Encounter Summary ---
Author Organization [employer] ([place], [place], [place], [place], [place]) Address [address] [place] [address] Care Team Providers Care Silk Screener Name Role Phone Jonas Navas MD Primary Care Provider [phone] Marcell Uriostegui MD Primary Care Provider + [phone] Heidi Rivers APRN Primary Care Provider + [phone] Neptali Bergman MD Unavailable [phone] Encounter Details Date Type Department Care Team (Late st Contact Info) Description 2020 Transcribed Document [facility] [place] Medicine [facility] [address] ProviderJennifer MD [address] [place] [address] Social History Tobacco Use Types Packs/Day [...] Health Plan: [employer] PPO Policy Number: [id number] Authorization Number: Insurance 2 Health Plan: ANTHEM HMOPPO Policy Number: [id number] Authorization Number: Authorization Status-Primary : Awaiting callback Auth/Referral Contact Name-Primary : [employer] PPO Policy Number: [id number] Reference Number-Primary : Pend ref #[id number] Authorized Service Begin Date-Primary : 12/03/2020 EDT Authorization Comments-Primary : Pending ref no per [employer]. Clinicals faxed via [employer] for IP approval Historical Authorization Comments-Primary : Comment 1: Insurance inactive per [employer], em to [place] to verify (CICI DIAZ RN 2020 11:20) CICI DIAZ RN - 2020 14:08 EDT Electronically signed by Hossein [facility] Conversion Acid Remover Cerner at 09/10/2022 12:48 AM CDT documented in this encounter Plan of Treatment Upcoming Encounters Date Type Department Care Team (Late st Contact Info) Description 11/12/2025 3:30 PM EDT Office Visit [place] [facility] - [address] [place] [phone] Neptali Bergman MD [address] [place] [address] [address] [place] [address] documented as of this encounter Visit Diagnoses Not on filedocumented in this encounter Care Teams Silk Screener Relationship Specialty Start Date End Date Jonas Navas MD [address] [facility] [address] [place] [address] PCP - General Cardiothoracic Surgery 04/15/22 07/23/22 Marcell Uriostegui MD [address] [place] [address] PCP - General Adolescent Medicine 07/24/22 04/05/23 Heidi Rivers, CIRCUS RIDER [address] [facility] [address] [place] [address] PCP - General Nurse Practitioner 04/06/23 Neptali Bergman MD [address] [address] Hematology and Oncology 10/31/24 documented as of this encounter
--- OUTSIDE RECORDS SUMMARY | 2025-05-21 09:46 | XMS_ITS | Encounter Summary ---
Author Organization [employer] ([place], [place], [place], [place], [place]) Address [address] [place] [address] Care Team Providers Care Fixture Builder Name Role Phone Jonas Navas MD Primary Care Provider [phone] Marcell Uriostegui MD Primary Care Provider + [phone] Heidi Rivers APRN Primary Care Provider + [phone] Neptali Bergman MD Unavailable [phone] Encounter Details Date Type Department Care Team (Late st Contact Info) Description 07/27/2019 Transcribed Document [facility] [place] [address] [place] [address] ProviderJennifer MD [address] [place] [address] Social History Tobacco Use Types Packs/Day Years Used Date Smoking Tobacco: Never Assessed Comments Unknown Sex and Gender Information Value Date Recorded Sex Assigned at Not on file Legal Sex Female 1:09 PM CDT Gender Identity Not on file Sexual Orientation Not on file documented as of this encounter Miscellaneous Notes * Cerner Conversion Note - Jennifer ProviderMD - 07/27/2019 10:56 AM CISSP Patient: ALEJANDRINA YEH Age: 63 years Sex: Female : 1955 Associated Diagnoses: None Author: GALDINO GHOTRA APRN-CTS Admission Date: \ Discharge Date: Attending: Dr. Jonas Navas, CT Surgery PCP: Dr. Jordy Akers ( [facility] Internal Medicine, ) Consultants: Brief History:This [...] K/uL Interpretation: Radiology Results (Last 48 hours) [id number] -- 07/25/2019 07:00 CR Chest 1 Vw [...] to a chair Encouraged IS Transfer to [facility] 07/27/19 POD#2 O2 92% on 4 [...] Bergman or Dr. Robertson Electronically signed by [facility] Conversion Flavoring Machine Operator Cerner at 09/10/2022 12:43 AM CDT documented in this encounter Plan of Treatment Upcoming Encounters Date Type Department Care Team (Late st Contact Info) Description 11/12/2025 3:30 PM EDT Office Visit [place] [facility] - [address] [place] [address] Neptali Bergman MD [address] [place] [address] [address] [place] [address] documented as of this encounter Visit Diagnoses Not on filedocumented in this encounter Care Teams Fixture Builder Relationship Specialty Start Date End Date Jonas Navas MD [address] [facility] [address] [place], [place] [address] PCP - General Cardiothoracic Surgery 04/15/22 07/23/22 Marcell Uriostegui MD [address] [place] [address] PCP - General Adolescent Medicine 07/24/22 04/05/23 Heidi Rivers, ROMERO [address] [facility] [address] [place] [address] PCP - General Nurse Practitioner 04/06/23 Neptali Bergman MD [address] [place] [address] [address] [place] [address] Hematology and Oncology 10/31/24 documented as of this encounter
--- OUTSIDE RECORDS SUMMARY | 2025-05-21 09:46 | XMS_ITS | Encounter Summary ---
Author Organization [employer] ([place], [place], [place], [place], [place]) Address [address] [place] [address] Care Team Providers Care Sergeant Of Officers Name Role Phone Jonas Navas MD Primary Care Provider [phone] Marcell Uriostegui MD Primary Care Provider + [phone] Heidi Rivers APRN Primary Care Provider + [phone] Neptali Bergman MD Unavailable [phone] Encounter Details Date Type Department Care Team (Late st Contact Info) Description 12/05/2020 Transcribed Document [facility] [place] Family Medicine [place] [address] ProviderJennifer MD [address] [place] [address] Social History Tobacco Use Types Packs/Day [...] On: 12/05/2020 7:00 EDT by Macy Costello, Director Cardiac Primary Insurance Authorization Authorization and Policy Numbers : Insurance 1 Health Plan: [employer] CHOICE PPO Policy Number: [id number] Authorization Number: Insurance 2 Health Plan: ANTHEM HMOPPO Policy Number: [id number] Authorization Number: Insurance Primary Name : [employer] CHOICE PPO - [id number] Authorization Status-Primary : Notification only Auth/Referral Contact Name-Primary : Reference Number-Primary : [id number] Authorization Number-Primary : [id number] Authorized Service Begin Date-Primary : 12/03/2020 EDT Authorization Comments-Primary : Authorized per email from Juan Leonard RN. Historical Authorization Comments-Primary : Comment 1: Pending ref no per [employer]. Clinicals faxed via [employer] for IP approval (CICI DIAZ RN 2020 14:08) Comment 2: Insurance inactive per [employer], em to [place] to verify (CICI DIAZ RN 2020 11:20) Macy Costello, Director Cardiac - 12/05/2020 7:00 EDT Secondary Insurance Authorization Authorization and Policy Numbers : Insurance 1 Health Plan: HUMANA CHOICE PPO Policy Number: [id number] Authorization Number: Insurance 2 Health Plan: ANTHEM HMOPPO Policy Number: [id number] Authorization Number: Insurance Secondary Name : ANTHKEEGAN HMOPPO - [id number] Historical Authorization Comments-Secondary : No Authorization Comments Found Macy Costello, Director Cardiac - 12/05/2020 7:00 EDT Electronically signed by Kolby Catalan Conversion Data Analytics Chief Scientist Cerner at 09/10/2022 12:30 AM CDT documented in this encounter Plan of Treatment Upcoming Encounters Date Type Department Care Team (Late st Contact Info) Description 11/12/2025 3:30 PM EDT Office Visit [place] [facility] - [address] [place] [address] Neptali Bergman MD [address] [facility] [address] [place] [address] documented as of this encounter Visit Diagnoses Not on filedocumented in this encounter Care Teams Sergeant Of Officers Relationship Specialty Start Date End Date Jonas Navas MD [address] [facility] [address] [place] [address] PCP - General Cardiothoracic Surgery 04/15/22 07/23/22 Marcell Uriostegui MD [address] [place] [address] PCP - General Adolescent Medicine 07/24/22 04/05/23 Heidi Rivers APRN [address] [place] [address] PCP - General Nurse Practitioner 04/06/23 Neptali Bergman MD [address] [facility] [address] [place] [address] Hematology and Oncology 10/31/24 documented as of this encounter
--- OUTSIDE RECORDS SUMMARY | 2025-05-21 09:46 | XMS_ITS | Encounter Summary ---
Author Organization [employer] ([place], [place], [place], [place], [place]) Address [address] [place] [address] Care Team Providers Care Outreach Librarian Name Role Phone Jonas Navas MD Primary Care Provider [phone] Marcell Uriostegui MD Primary Care Provider + [phone] Heidi Rivers APRN Primary Care Provider + [phone] Neptali Bergman MD Unavailable [phone] Encounter Details Date Type Department Care Team (Late st Contact Info) Description 07/28/2019 Transcribed Document [facility] [place] Family Medicine [address] [place] [address] ProviderJennifer MD [address] [place] [address] Social History Tobacco Use Types Packs/Day Years Used Date Smoking Tobacco: Never Assessed Comments Unknown Sex and Gender Information Value Date Recorded Sex Assigned at Not on file Legal Sex Female 1:09 PM CDT Gender Identity Not on file Sexual Orientation Not on file documented as of this encounter Miscellaneous Notes * Cerner Conversion Note - Jennifer ProviderMD - 07/28/2019 4:29 PM FLANGE MACHINE OPERATOR On Going Discharge Planning Entered On: 07/28/2019 16:32 EST Performed On: 07/28/2019 16:29 EST by STEWART AYALA Museum Assistant Care Management Progress Note Discharge Arrangements : [...] Meeting Medical Necessity : Yes STEWART AYALA Museum Assistant - 07/28/2019 16:29 EST Narrative Progress Note Narrative Progress Note : Admission day 3, transfer from [facility], on 4 liters O2, CT remains in place (760ml/24hrs), epidural and sargent remain in place, ON=744' with rwx/O2/suction. DCP: to return home with family (watch for possible O2 needs). CM will continue to follow. Historical Progress Note : CTS encouraging pt to be up in chair OOB; anticipate possible transfer out of [facility] later today; anticipate home with spouse when stable; monitor for home oxygen need. ALEXUS LEON, Edgardo-Dextrine Mixer - 07/26/19 09:54:47 STEWART AYALA Museum Assistant - 07/28/2019 16:29 EST Electronically signed by Hossein [facility] Conversion Heating And Blending Supervisor Cerner at 09/10/2022 12:36 AM CDT documented in this encounter Plan of Treatment Upcoming Encounters Date Type Department Care Team (Late st Contact Info) Description 11/12/2025 3:30 PM EDT Office Visit [facility] - [address] [place] [address] Neptali Bergman MD [address] [facility] [address] [place] [address] documented as of this encounter Visit Diagnoses Not on filedocumented in this encounter Care Teams Outreach Librarian Relationship Specialty Start Date End Date Jonas Navas MD [address] [facility] [address] [place], [place] [address] PCP - General Cardiothoracic Surgery 04/15/22 07/23/22 Marcell Uriostegui MD [address] [place] [address] [place] [address] PCP - General Adolescent Medicine 07/24/22 04/05/23 Heidi Rivers APRN 2017 [facility] [address] [place] [address] PCP - General Nurse Practitioner 04/06/23 Neptali Bergman MD [address] [facility] [address] [place] [address] Hematology and Oncology 10/31/24 documented as of this encounter
--- OUTSIDE RECORDS SUMMARY | 2025-05-21 09:46 | XMS_ITS | Encounter Summary ---
Author Organization [employer] ([place], [place], [place], [place], [place]) Address [address] [place] [address] Care Team Providers Care Director Payment Name Role Phone Jonas Navas MD Primary Care Provider [phone] Marcell Uriostegui MD Primary Care Provider + [phone] Heidi Rivers APRN Primary Care Provider + [phone] Neptali Bergman MD Unavailable [phone] Encounter Details Date Type Department Care Team (Late st Contact Info) Description 12/07/2020 Transcribed Document [facility] [place] [facility] [place] [address] ProviderJennifer MD [address] [place] [address] Social History Tobacco Use Types [...] Description 11/12/2025 3:30 PM EDT Office Visit [facility] - [address] [place] [address] [place] [address] [place] [address] [address] [place] [address] documented as of this encounter Visit Diagnoses Not on filedocumented in this encounter Care Teams Director Payment Relationship Specialty Start Date End Date Jonas Navas MD [address] [facility] [address] [place] [address] PCP - General Cardiothoracic Surgery 04/15/22 07/23/22 Marcell Uriostegui MD [address] [place] [address] PCP - General Adolescent Medicine 07/24/22 04/05/23 Heidi Rivers, ROMERO [address] [place] [address] PCP - General Nurse Practitioner 04/06/23 [place] [address] [place] [address] [address] [place] [address] Hematology and Oncology 10/31/24 documented as of this encounter
--- OUTSIDE RECORDS SUMMARY | 2025-05-21 09:46 | XMS_ITS | Encounter Summary ---
Author Organization [employer] ([place], [place], [place], [place], [place]) Address [address] [place] [address] Care Team Providers Care Rejector Name Role Phone Jonas Navas MD Primary Care Provider [phone] Marcell Uriostegui MD Primary Care Provider + [phone] Heidi Rivers APRN Primary Care Provider + [phone] Neptali Bergman MD Unavailable [phone] Encounter Details Date Type Department Care Team (Late st Contact Info) Description 12/07/2020 Transcribed Document [facility] Pulm & Critical Care Medicine [address] [place] [address] [address] [place] [address] [place] [address] [address] [place] [id number] Social History Tobacco Use Types Packs/Day Years [...] abdominal metastases, COPD, NIDDM, GERD, HLD, HTN, UT, TIA, and CAD who presents to our facility from [facility]. Patient is currently intubated, sedated, and on [...] ALINA lobectomy COPD NIDDM GERD HLD HTN UT TIA CAD Past Surgical History ALINA lobectomy [...] mL: 100 mg, 50 mL/Hr, IV Piggyback, [id number] granisetron: 1 mg, IV Push, 1-Time granisetron: [...] Refill(s) fluticasone 50 mcg/inh nasal spray: 2 [place], Nasal, Daily, PRN: Nasal Congestion, 0 Refill(s) [...] 0.9% 100 mL 100 mg, IV Piggyback, [id number] famotidine 20 mg tab 20 mg 1 [...] - Lung cancer adenocarcinoma / SNOMED CT 1670642355 / Confirmed Claustrophobia / SNOMED CT 95024729 / Confirmed Diabetes mellitus type II / SNOMED CT 10155664 / Confirmed Diverticulosis / SNOMED CT 0438015378 / Confirmed Shortness of breath / SNOMED CT 287042906 / Confirmed GERD - Gastro-esophageal reflux disease / SNOMED CT 8122403963 / Confirmed Hiatal hernia / SNOMED CT 978845554 / Confirmed History of obstructive sleep apnea / IMO 56288028 / Confirmed Inactive: Seasonal allergies / SNOMED CT 5480514635 Canceled: Chronic cough / SNOMED CT 351809731 Canceled: History of obstructive sleep apnea - no c-pap / IMO 73058615 Canceled: History of obstructive sleep apnea / IMO 10116888 Canceled: Current every day smoker / SNOMED CT 0952553068, Active Problems (18) Arthritis Back pain CA - Lung cancer adenocarcinoma 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 Claustrophobia Coronary artery disease s/p UT Diabetes mellitus type II Diverticulosis GERD - [...] Non-distended, Normal bowel sounds. Integumentary: Warm, Dry, [place]. Neurologic: Alert, Oriented, No focal deficits. 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, chemotherapy (last treatment 11/28) Cardiovascular CAD History of UT HTN ID Acute UTI with Klebsiella pneumonia [...] Description 11/12/2025 3:30 PM EDT Office Visit [facility] - [address] [place] [address] Neptali Bergman MD [facility] [address] [place] [address] documented as of this encounter Visit Diagnoses Not on filedocumented in this encounter Care Teams Rejector Relationship Specialty Start Date End Date Jonas Navas MD [address] [facility] [address] [place] [address] PCP - General Cardiothoracic Surgery 04/15/22 07/23/22 Marcell Uriostegui MD [address] [place] [address] PCP - General Adolescent Medicine 07/24/22 04/05/23 Heidi Rivers APRN [address] [facility] [address] [place] [address] PCP - General Nurse Practitioner 04/06/23 Neptali Bergman MD [address] [facility] [address] [place] [address] Hematology and Oncology 10/31/24 documented as of this encounter
--- OUTSIDE RECORDS SUMMARY | 2025-05-21 09:46 | XMS_ITS | Encounter Summary ---
Author Organization [employer] ([place], [place], [place], [place], [place]) Address [address] [place] [address] Care Team Providers Care Judo Instructor Name Role Phone Jonas Navas MD Primary Care Provider [phone] Marcell Uriostegui MD Primary Care Provider + [phone] Heidi Rivers APRN Primary Care Provider + [phone] Neptali Bergman MD Unavailable [phone] Encounter Details Date Type Department Care Team (Late st Contact Info) Description 07/31/2019 Transcribed Document [facility] [place] Family Medicine [facility] [place] [address] ProviderJennifer MD [address] [place] [address] Social History Tobacco Use Types Packs/Day [...] 07/31/2019 7:07 EDT Electronically signed by Hossein [facility] Conversion On Call Cerner at 09/10/2022 12:46 AM CDT documented in this encounter Plan of Treatment Upcoming Encounters Date Type Department Care Team (Late st Contact Info) Description 11/12/2025 3:30 PM EDT Office Visit [facility] - [address] [facility] [address] [place] [address] Neptali Bergman MD [address] [facility] [address] [place] [address] documented as of this encounter Visit Diagnoses Not on filedocumented in this encounter Care Teams Judo Instructor Relationship Specialty Start Date End Date Jonas Navas MD [address] [facility] [address] [place] [address] PCP - General Cardiothoracic Surgery 04/15/22 07/23/22 Marcell Uriostegui MD [address] [place] [address] PCP - General Adolescent Medicine 07/24/22 04/05/23 Heidi Rivers, ROMERO [address] [place] [address] PCP - General Nurse Practitioner 04/06/23 Neptali Bergman MD [address] [facility] [address] [place] [address] Hematology and Oncology 10/31/24 documented as of this encounter
--- OUTSIDE RECORDS SUMMARY | 2025-05-21 09:46 | XMS_ITS | Encounter Summary ---
Author Organization [employer] ([place], [place], [place], [place], [place]) Address [address] [place] [address] Care Team Providers Care Finishing Manager Name Role Phone Jonas Navas MD Primary Care Provider [phone] Marcell Uriostegui MD Primary Care Provider + [phone] Heidi Rivers APRN Primary Care Provider + [phone] Neptali Bergman MD Unavailable [phone] Encounter Details Date Type Department Care Team (Late st Contact Info) Description 07/26/2019 Transcribed Document [facility] [place] Family Medicine [address] [place] [address] ProviderJennifer MD [address] [place] [address] Social History Tobacco Use Types Packs/Day Years Used Date Smoking Tobacco: Never Assessed Comments Unknown Sex and Gender Information Value Date Recorded Sex Assigned at Not on file Legal Sex Female 1:09 PM CDT Gender Identity Not on file Sexual Orientation Not on file documented as of this encounter Miscellaneous Notes * Cerner Conversion Note - Jennifer ProviderMD - 07/26/2019 9:57 AM GENERAL MANAGER Evaluation, Physical Therapy Entered On: 07/27/2019 16:59 EST Performed On: 07/27/2019 16:05 EST by TAMMY BELLE, PT General Information, PT Visit Type, PT : Initial evaluation TAMMY BELLE, PT - 07/27/2019 16:25 EST Patient Orders : Order Date Order Ordering 07/26/2019 09:57 Consult to Physical Therapy Ordered By: TIERRA VASQUEZ PA Active Diagnoses : 07/26/2019 12:00 Atherosclerotic heart disease of [place] coronary artery without angina pectoris 07/26/2019 12:00 [...] PT : 63 [address] female [address] to [facility] for SURGERY for Adenocarcinoma L UL and [...] wall suction, O2 at 4 L, IV, LICENSED DIRECT ENTRY MIDWIFE TAMMY BELLE, PT - 07/27/2019 16:25 EST Gait Training/Assessment, PT Weight Bearing Status : Full Gait Assistance Level : Supervision Walking Distance : approx 15 ft around bed Ambulatory Devices : Gait belt, Walker, front wheel, Other: IV, Scott Cath, Chest Tube, O2 at 4 L, LICENSED DIRECT ENTRY MIDWIFE Gait Deviations : Yes Left Lower Gait [...] TAMMY BELLE PT - 07/27/2019 16:25 EST Jail Goals Mobility/Bed Mobility LTG PT Grid Goal [...] : Constant Pain Comment : RN replacing LICENSED DIRECT ENTRY MIDWIFE meds TAMMY BELLE PT - 07/27/2019 16:25 EST Image 1 - Images currently included in the form version of this document have not been included in the text rendition version of the form. Anticipated Discharge Needs, OT/PT Anticipated Discharge to : Home, with family care Recommend Continued Therapy at Discharge : No TAMMY BELLE PT - 07/27/2019 16:25 EST [facility] PT Charges PT Eval Low Complexity : 1 TAMMY BELLE PT - 07/31/2019 15:46 EDT PT Ther Activities Ea 15 Min : 1 TAMMY BELLE PT - 07/27/2019 16:25 EST documented in this encounter Plan of Treatment Upcoming Encounters Date Type Department Care Team (Late st Contact Info) Description 11/12/2025 3:30 PM EDT Office Visit [facility] - [address] [place] [address] Neptali Bergman MD [address] [facility] [address] [place] [address] documented as of this encounter Visit Diagnoses Not on filedocumented in this encounter Care Teams Finishing Manager Relationship Specialty Start Date End Date Jonas Navas MD [address] [facility] [address] [place] [address] PCP - General Cardiothoracic Surgery 04/15/22 07/23/22 Marcell Uriostegui MD [address] [facility] [address] [place] [address] PCP - General Adolescent Medicine 07/24/22 04/05/23 Heidi Rivers, ROMERO [address] [place], [place] [address] PCP - General Nurse Practitioner 04/06/23 Neptali Bergman MD [address] [facility] [address] [place] [address] Hematology and Oncology 10/31/24 documented as of this encounter
--- OUTSIDE RECORDS SUMMARY | 2025-05-21 09:46 | XMS_ITS | Encounter Summary ---
Author Organization [employer] ([place], [place], [place], [place], [place]) Address [address] [place] [address] Care Team Providers Care Director Of Food And Nutrition Services Name Role Phone Jonas Navas MD Primary Care Provider [phone] Marcell Uriostegui MD Primary Care Provider + [phone] Heidi Rivers APRN Primary Care Provider + [phone] Neptali Bergman MD Unavailable [phone] Encounter Details Date Type Department Care Team (Late st Contact Info) Description 07/28/2019 Transcribed Document [facility] [place] [address] [place] [address] ProviderJennifer MD [address] [place] [address] Social History Tobacco Use Types Packs/Day Years Used Date Smoking Tobacco: Never Assessed Comments Unknown Sex and Gender Information Value Date Recorded Sex Assigned at Not on file Legal Sex Female 1:09 PM CDT Gender Identity Not on file Sexual Orientation Not on file documented as of this encounter Miscellaneous Notes * Cerner Conversion Note - Jennifer ProviderMD - 07/28/2019 9:14 AM GRANITE POLISHER MACHINE Patient: ALEJANDRINA YEH Age: 63 years Sex: Female : 1955 Associated Diagnoses: None Author: GALDINO GHOTRA APRN-CTS Admission Date: Discharge Date: Attending: Dr. Jonas Navas, CT Surgery PCP: Dr. Jordy Akers ( [facility], ) Consultants: Brief [...] K/uL Interpretation: Radiology Results (Last 48 hours) [id number] -- 07/25/2019 07:00 CR Chest 1 Vw [...] to a chair Encouraged IS [facility] 07/27/19 POD#2 O2 92% on 4 [...] Dr. Navas to sign Electronically signed by [facility] Conversion Basket Hand Weaver Cerner at 09/10/2022 12:35 AM CDT documented in this encounter Plan of Treatment Upcoming Encounters Date Type Department Care Team (Late st Contact Info) Description 11/12/2025 3:30 PM EDT Office Visit [facility] - [facility] [address] [place] [address] [address] [place] [address] Neptali Bergman MD [address] [facility] [address] [place] [address] documented as of this encounter Visit Diagnoses Not on filedocumented in this encounter Care Teams Director Of Food And Nutrition Services Relationship Specialty Start Date End Date Jonas Navas MD 1401 [facility] [address] [place], [place] [address] PCP - General Cardiothoracic Surgery 04/15/22 07/23/22 Marcell Uriostegui MD [address] [place] [address] PCP - General Adolescent Medicine 07/24/22 04/05/23 Heidi Rivers, ROMERO 2017 [facility] [address] [place] [address] PCP - General Nurse Practitioner 04/06/23 Neptali Bergman MD [facility]0 [facility] [address] [place] [address] Hematology and Oncology 10/31/24 documented as of this encounter
--- OUTSIDE RECORDS SUMMARY | 2025-05-21 09:46 | XMS_ITS | Encounter Summary ---
Author Organization [employer] ([place], [place], [place], [place], [place]) Address [address] [place] [address] Care Team Providers Care Manager System Name Role Phone Jonas Navas MD Primary Care Provider [phone] Marcell Uriostegui MD Primary Care Provider + [phone] Heidi Rivers APRN Primary Care Provider + [phone] Neptali Bergman MD Unavailable [phone] Encounter Details Date Type Department Care Team (Late st Contact Info) Description 12/07/2020 Transcribed Document [facility] [place] [address] ProviderJennifer MD [address] [place] [address] Social History Tobacco Use Types Packs/Day Years Used Date Smoking Tobacco: Never Assessed Comments Unknown Sex and Gender Information Value Date Recorded Sex Assigned at Not on file Legal Sex Female 1:09 PM CDT Gender Identity Not on file Sexual Orientation Not on file documented as of this encounter Miscellaneous Notes * Cerner Conversion Note - Jennifer ProviderMD - 12/07/2020 3:29 PM CDT Pain Assessment [...] Description 11/12/2025 3:30 PM EDT Office Visit [facility] - [address] [facility] [address] [place] [address] Neptali Bergman MD [address] [place] [address] [address] [place] [address] documented as of this encounter Visit Diagnoses Not on filedocumented in this encounter Care Teams Manager System Relationship Specialty Start Date End Date Jonas Navas MD 1401 [facility] [address] [place], [place] [address] PCP - General Cardiothoracic Surgery 04/15/22 07/23/22 Marcell Uriostegui MD [address] [place] [address] PCP - General Adolescent Medicine 07/24/22 04/05/23 Heidi Rivers, ROMERO 2017 [facility] [address] [place], [place] [address] PCP - General Nurse Practitioner 04/06/23 [place] [address] [place] [address] [address] [place] [address] Hematology and Oncology 10/31/24 documented as of this encounter
--- OUTSIDE RECORDS SUMMARY | 2025-05-21 09:46 | XMS_ITS | Encounter Summary ---
Author Organization [employer] ([place], [place], [place], [place], [place]) Address [address] [place] [address] Care Team Providers Care Traffic Superintendent Name Role Phone Jonas Navas MD Primary Care Provider [phone] Marcell Uriostegui MD Primary Care Provider + [phone] Heidi Rivers APRN Primary Care Provider + [phone] Neptali Bergman MD Unavailable [phone] Encounter Details Date Type Department Care Team (Late st Contact Info) Description 07/31/2019 Transcribed Document [facility] [place] [facility] [address] ProviderJennifer MD [address] [place] [address] Social History Tobacco Use Types Packs/Day [...] 3:48 EDT Pain Scale Intensity : 0 Celio JanisASHLEY - 08/02/2019 3:48 EDT Image 4 - Images currently included in the form version of this document have not been included in the text rendition version of the form. documented in this encounter Plan of Treatment Upcoming Encounters Date Type Department Care Team (Late st Contact Info) Description 11/12/2025 3:30 PM EDT Office Visit [facility] [address] [place] [address] [address] [place] [address] Neptali Bergman MD [address] [facility] [address] [place] [address] documented as of this encounter Visit Diagnoses Not on filedocumented in this encounter Care Teams Traffic Superintendent Relationship Specialty Start Date End Date Jonas Navas MD [address]01 [facility] [address] [place], [place] [address] PCP - General Cardiothoracic Surgery 04/15/22 07/23/22 Marcell Uriostegui MD [address] [place] [address] PCP - General Adolescent Medicine 07/24/22 04/05/23 Heidi Rivers, CLOUD SYSTEMS ARCHITECT [address] [place] [address] PCP - General Nurse Practitioner 04/06/23 Neptali Bergman MD [address] [facility] [address] [place] [address] Hematology and Oncology 10/31/24 documented as of this encounter
--- OUTSIDE RECORDS SUMMARY | 2025-05-21 09:46 | XMS_ITS | Encounter Summary ---
Author Organization [employer] ([place], [place], [place], [place], [place]) Address [address] [place] [address] Care Team Providers Care Mitochondrial Disorders Counselor Name Role Phone Jonas Navas MD Primary Care Provider [phone] Marcell Uriostegui MD Primary Care Provider + [phone] Heidi Rivers APRN Primary Care Provider + [phone] Neptali Bergman MD Unavailable [phone] Encounter Details Date Type Department Care Team (Late st Contact Info) Description 12/07/2020 Transcribed Document [facility] [place] [facility] [place] [address] ProviderJennifer MD [address] [place] [address] Social History Tobacco Use Types [...] integrated, provides some strength/resource Active in a Religious/Myrtle Group : Yes Restorationism Preference : Presbyterian Lucius Soliz Chaplain-Non Cert - 12/07/2020 5:47 EDT Spiritual Assessment Spiritual Assessment Comment/Summary Points : Pt struggling with hallucinations and difficulty trusting staff. Ski Patrol Director prayed with patient for her health, emotional distress and for the hallucinations to stop. PT stated that she has not slept in two days. Ski Patrol Director prayed for Pt to be able to sleep. Pt was receptive of pastoral care but appeared dispondant and emotionally overwhelmed by her situation. Ski Patrol Director offered future support as needed. Spirital Assessment Comment/Summary Report : SPIRITUAL ASSESSMENT COMMENT/SUMMARY No qualifying data available. Lucius Soliz Chaplain-Non Cert - 12/07/2020 5:47 EDT Interventions Emotional Support : Empathic/Engaged listening, Established trust Spiritual and Restorationism : Verify myrtle group connection, [place]/Ritual provided, Prayer shared Lucius Soliz Chaplain-Non Cert - 12/07/2020 5:47 EDT documented in this encounter Plan of Treatment Upcoming Encounters Date Type Department Care Team (Late st Contact Info) Description 11/12/2025 3:30 PM EDT Office Visit [facility] - [address] [place] [address] Neptali Bergman MD [address] [facility] [address] [place] [address] documented as of this encounter Visit Diagnoses Not on filedocumented in this encounter Care Teams Mitochondrial Disorders Counselor Relationship Specialty Start Date End Date Jonas Navas MD [address] [facility] [address] [place] [address] PCP - General Cardiothoracic Surgery 04/15/22 07/23/22 Marcell Uriostegui MD [address] [place] [address] PCP - General Adolescent Medicine 3/3/23 11/13/23 Heidi Rivers APRN [address] [facility] [address] [place] [address] PCP - General Nurse Practitioner 04/06/23 Neptali Bergman MD [address] [facility] [address] [place] [address] Hematology and Oncology 10/31/24 documented as of this encounter
--- OUTSIDE RECORDS SUMMARY | 2025-05-21 09:46 | XMS_ITS | Encounter Summary ---
Author Organization [employer] ([place], [place], [place], [place], [place]) Address [address] [place] [address] Care Team Providers Care Typer Name Role Phone Jonas Navas MD Primary Care Provider [phone] Marcell Uriostegui MD Primary Care Provider + [phone] Heidi Rivers APRN Primary Care Provider + [phone] Neptali Bergman MD Unavailable [phone] Encounter Details Date Type Department Care Team (Late st Contact Info) Description 12/06/[address] 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 Continue regular, NT liqs diet per CHICKEN BONER. RD to add [address] to send CUONG GILMANIsai. Goal: >50% meals/ONS 2. Monitor weight 1x/week Goal: no significant wt loss Risk- High ELDON KRISHNAMURTHY, RD, LD - 12/06/2020 11:50 EDT Electronically signed by Hossein [facility] Conversion Label Rewinder Cerner at 09/10/2022 12:32 AM CDT documented in this encounter Plan of Treatment Upcoming Encounters Date Type Department Care Team (Late st Contact Info) Description 11/12/2025 3:30 PM EDT Office Visit [place] - [place] [address] [place] [address] Neptali Bergman MD [address] [facility] [address] [place] [address] documented as of this encounter Visit Diagnoses Not on filedocumented in this encounter Care Teams Typer Relationship Specialty Start Date End Date Jonas Navas MD [address] [facility] [address] [place], [place] [address] PCP - General Cardiothoracic Surgery 04/15/22 07/23/22 Marcell Uriostegui MD [address] [place] [address] [place] [address] PCP - General Adolescent Medicine 07/24/22 04/05/23 Heidi Rivers, LETTER OF CREDIT DOCUMENT EXAMINER [address] [place] [address] PCP - General Nurse Practitioner 04/06/23 Neptali Bergman MD [address] [facility] [address] [place] [address] Hematology and Oncology 10/31/24 documented as of this encounter
--- OUTSIDE RECORDS SUMMARY | 2025-05-21 09:46 | XMS_ITS | Encounter Summary ---
Author Organization [employer] ([place], [place], [place], [place], [place]) Address [address] [place] [address] Care Team Providers Care Change Lead Name Role Phone Jonas Navas MD Primary Care Provider [phone] Marcell Uriostegui MD Primary Care Provider + [phone] Heidi Rivers APRN Primary Care Provider + [phone] Neptali Bergman MD Unavailable [phone] Encounter Details Date Type Department Care Team (Late st Contact Info) Description 2020 Transcribed Document [facility] Family Medicine [facility] [place] [address] ProviderJennifer MD [address] [place] [address] Social History Tobacco Use Types [...] Description 11/12/2025 3:30 PM EDT Office Visit [facility] - [facility] [address] [place] [address] [address] [place] [address] Neptali Bergman MD [address] [facility] [address] [place] [address] documented as of this encounter Visit Diagnoses Not on filedocumented in this encounter Care Teams Change Lead Relationship Specialty Start Date End Date Jonas Navas MD [address] [facility] [address] [place], [place] [address] PCP - General Cardiothoracic Surgery 04/15/22 07/23/22 Marcell Uriostegui MD [address] [place] [address] PCP - General Adolescent Medicine 07/24/22 04/05/23 Heidi Rivers, GANDY DANCER [address] [place] [address] PCP - General Nurse Practitioner 04/06/23 Neptali Bergman MD [address] [facility] [address] [place] [address] Hematology and Oncology 10/31/24 documented as of this encounter
--- OUTSIDE RECORDS SUMMARY | 2025-05-21 09:46 | XMS_ITS | Encounter Summary ---
Author Organization [email or web address] ([place], [place], [place], [place], [place]) Address [address] [place] [address] Care Team Providers Care Wood Casket Maker Name Role Phone Jonas Navas MD Primary Care Provider [phone] Marcell Uriostegui MD Primary Care Provider + [phone] Heidi Rivers APRN Primary Care Provider + [phone] Neptali Bergman MD Unavailable [phone] Encounter Details Date Type Department Care Team (Late st Contact Info) Description 12/07/2020 Transcribed Document [facility] [place] [facility] [place] [address] ProviderJennifer MD [address] [place] [address] Social History Tobacco Use Types Packs/Day [...] On: 12/07/2020 13:36 EDT by ADRIAN VALLES, Oracle Iam Consultant Care Management Progress Note Discharge Arrangements : Patient Post-Acute Information Patient Name: ALEJANDRINA YEH Gender: Female : 55 Age: 65 Years No Post-Acute Placement(s) Listed No Post-Acute Service(s) Listed No Curaspan Referral(s) Listed Discharge Options Discussed with Patient : Acute rehabilitation, Home Health, termite inspector rehabilitation, [facility] Barriers to Discharge Identified : Clinical Condition of Patient Barriers to Discharge Unresolved : Clinical Condition of Patient ADRIAN VALLES, Oracle Iam Consultant - 12/07/2020 13:36 EDT Narrative Progress Note [...] was independent with use of dme from [facility]. Inpt rehab may not be an option as Patient is on treatment for metastatic adenocarcinoma of the lung with Avastin, Alimta and carboplatin. KISHORE MCKEON RN-Instrument And Controls Technician - 12/06/20 14:24:20 RRS LOW, BOOST 4, LOS 1, ELOS 5 Acute resp failure For possible extubation this 12/05 Tube feedings DCP: TBD, PLOF was independent with use of dme from [facility]. Will need pt/ot evals to assist with DCP. KISHORE MCKEON RN-Instrument And Controls Technician - 12/05/20 15:13:54 ADRIAN VALLES Oracle Iam Consultant - 12/07/2020 13:36 EDT documented in this encounter Plan of Treatment Upcoming Encounters Date Type Department Care Team (Late st Contact Info) Description 11/12/2025 3:30 PM EDT Office Visit [facility] - [place] [address] [place] [address] Neptali Bergman MD [address] [facility] [address] [place] [address] documented as of this encounter Visit Diagnoses Not on filedocumented in this encounter Care Teams Wood Casket Maker Relationship Specialty Start Date End Date Jonas Navas MD 14[address] [facility] [address] [place] [address] PCP - General Cardiothoracic Surgery 04/15/22 07/23/22 Marcell Uriostegui MD [address] [place] [address] PCP - General Adolescent Medicine 07/24/22 04/05/23 Heidi Rivers APRN [address] [place] [address] PCP - General Nurse Practitioner 04/06/23 Neptali Bergman MD [address] [facility] [address] [place] [address] Hematology and Oncology 10/31/24 documented as of this encounter
--- OUTSIDE RECORDS SUMMARY | 2025-05-21 09:46 | XMS_ITS | Encounter Summary ---
Author Organization [employer] ([place], [place], [place], [place], [place]) Address [address] [place] [address] Care Team Providers Care Anode Adjuster Name Role Phone Jonas Navas MD Primary Care Provider [phone] Marcell Uriostegui MD Primary Care Provider + [phone] Heidi Rivers APRN Primary Care Provider + [phone] Neptali Bergman MD Unavailable [phone] Encounter Details Date Type Department Care Team (Late st Contact Info) Description 07/30/2019 Transcribed Document [facility] [place] [address] ProviderJennifer MD [address] [place] [address] Social History Tobacco Use Types Packs/Day [...] Jennifer ProviderMD - 07/30/2019 3:00 AM CDT Corporate Banking Officer Details Entered On: 07/30/2019 4:36 EDT Performed [...] Celio, August, RN - 07/30/2019 4:35 EDT Electronically signed by Kolby Catalan Conversion Cutting Machine Tender Decorative Cerner at 09/10/2022 12:31 AM CDT documented in this encounter Plan of Treatment Upcoming Encounters Date Type Department Care Team (Late st Contact Info) Description 11/12/2025 3:30 PM EDT Office Visit [facility] - [place] [place] [address] Neptali Bergman MD [address] [place] [address] [address] [place] [address] documented as of this encounter Visit Diagnoses Not on filedocumented in this encounter Care Teams Anode Adjuster Relationship Specialty Start Date End Date Jonas Navas MD [address] [facility] [address] [place] [address] PCP - General Cardiothoracic Surgery 04/15/22 07/23/22 Marcell Uriostegui MD [address] [place] [address] PCP - General Adolescent Medicine 07/24/22 04/05/23 Heidi Rivers, MANAGED CARE MANAGER [address] [place] [address] PCP - General Nurse Practitioner 04/06/23 Neptali Bergman MD [address] [facility] [address] [place] [address] Hematology and Oncology 10/31/24 documented as of this encounter
--- OUTSIDE RECORDS SUMMARY | 2025-05-21 09:46 | XMS_ITS | Referral Summary ---
Author Organization [employer] ([place], [place], [place], [place], [place]) Address [address] [place] [address] Care Team Providers Care Chief Green Officer Name Role Phone Heidi Rivers ROMERO Primary Care Provider Neptali Bergman MD Unavailable [phone] Encounters Date Type Department Care Team Description 05/14/2025 3:45 PM EST [facility]fusion [facility] - [place] [address] [place] [address] Neptali Bergman MD Malignant neoplasm of upper lobe bronchus, left (HCC) (Primary Dx) 05/14/2025 Travel 05/14/2025 8:29 AM EST - 05/14/2025 9:16 AM EST Hospital Encounter [facility] [address] [facility] [address] [place] [address] Neptali Bergman MD Malignant neoplasm of upper lobe bronchus, left (HCC) Discharge Disposition: Home or Self Care 05/14/2025 9:17 AM EST - 05/14/2025 11:59 PM EST Hospital Encounter [facility] MRI - [facility] [address] [facility] [address] [place] [address] Neptali Bergman MD Malignant neoplasm of upper lobe bronchus, left (HCC) Discharge Disposition: Home or Self Care 05/14/2025 2:15 PM EST Office Visit [facility] - [place] [address] [place] [address] Neptali Bergman MD Malignant neoplasm of upper lobe bronchus, left (HCC) (Primary Dx) from Last 3 Months Allergies Active Allergy Reactions Criticality Noted Date [...] Date Jeff rded Speak language other than Tristanian at home Not on file 06/04/2023 Want [...] Description 11/12/2025 3:30 PM EDT Office Visit [facility] - [facility] [address] [facility] [address] [place] [address] Neptali Bergman MD [address] [facility] [address] [place] [address] Procedures Procedure Name Priority Date/Time Associated Diagnosis [...] chest, abdomen, or pelvis. Neptali Bergman MD [facility] ORDERABLES Final Result * (ABNORMAL) CBC [...] Res ult [facility] - [address] [place] [address], [facility] [phone] * (ABNORMAL) Oncology Basic Metabolic Panel (05/14/2025 [...] ult [facility] - [address] [place] [address], [facility] [phone] * (ABNORMAL) Protein Electrophoresis w Rflx to DE (SENDOUT) (05/14/2025 8:14 AM EST) Total Protein, Serum 8.2 6.3 - 8.2 g/dL 05/18/2025 9:02 PM EST [facility] Albumin 4.26 3.75 - 5.01 g/dL 05/18/2025 9:02 PM EST [facility] Alpha 1 Globulin 0.43 0.19 - 0.46 g/dL 05/18/2025 9:02 PM EST [facility] Alpha 2 Globulin 1.05 0.48 - 1.05 g/dL 05/18/2025 9:02 PM EST [facility] Beta Globulin 1.13(H) 0.48 - 1.10 g/dL 05/18/2025 9:02 PM EST [facility] Gamma 1.33 0.62 - 1.51 g/dL 05/18/2025 9:02 PM EST [facility] Immunofixation Reflex Not Done 05/18/2025 9:02 PM EST [facility] Comment: Caution: Reflex to Immunofixation electrophoresis (DE)is not indicated per results of protein electrophoresis. Immunofixation electrophoresis is a more sensitive technique than serum protein electrophoresis for the identification of small M-proteins found in patients with amyloidosis, early or treated myeloma and macroglobulinemia, MGUS, solitary plasmacytoma,and extramedullary plasmacytoma. Monoclonal Protein Not Applicable <=0.00 g/dL 05/18/2025 9:02 PM EST [email or web address] SPEP/DE Interpretation See Note 05/18/2025 9:02 PM EST [email or web address] Comment:Serum protein electr ophoresis is negative for monoclonal protein. EER Serum Protein Electrophoresis Reflex See Note 05/18/2025 9:02 PM EST [email or web address] Comment: Authorized individuals can access the MedClaims Liaison Enhanced Report with an [employer]Claims Liaison Connect account using the following link. Your local lab can assist you in obtaining the patient report if you don't have a Connect account. [email or web address] Performed By: [facility] [address] [place] [address] Customs Officer: Jony Boogie MD, PhD CLIA Number: [id number] Blood Venipuncture / Unknown 05/14/2025 8:14 AM EST 05/15/2025 8:54 AM EST us Neptali Bergman MD LAB BLOOD ORDERABLES Final Res ult [email or web address] [address] [place] [address], [facility] [phone] * (ABNORMAL) [place]-Lambda Quant FLC with Ratio(SENDOUT) (05/14/2025 8:14 AM EST) [place] Qnt Free Light Chains 28.53(H) 3.30 - 19.40 mg/L 05/17/2025 9:28 AM EST [email or web address] Comment: INTERPRETIVE INFORMATION: [place] Qnt Free Light Chains Undetected antigen excess is a rare event but cannot be excluded. Free light chain results should always be interpreted in conjunction with other clinical and laboratory findings. [place] Qnt Free Light Chains 23.95 5.71 - 26.30 mg/L 05/17/2025 9:28 AM EST [email or web address] Comment: INTERPRETIVE INFORMATION: [place] Qnt Free Light Chains Undetected antigen excess is a rare event but cannot be excluded. Free light chain results should always be interpreted in conjunction with other clinical and laboratory findings. [place]/Lambda Free Light Chain Ratio 1.19 0.26 - 1.65 05/17/2025 9:28 AM EST [email or web address] Comment: Performed By: [facility] [address] [place] [address] Customs Officer: Jony Boogie MD, PhD CLIA Number: [id number] Blood Venipuncture / Unknown 05/14/2025 8:14 AM EST 05/15/2025 8:54 AM EST Neptali Bergman MD LAB BLOOD ORDERABLES Final Res ult Performing Organization Address [facility] de Phone Number [email or web address] [address] [place] [address] * TSH (05/14/2025 8:14 AM EST) Pathologist [facility] TSH 2.300 0.358 - 3.740 uIU/mL 05/15/2025 10:17 AM EST [facility] Blood Venipuncture / Unknown 05/14/2025 8:14 AM EST 05/15/2025 8:54 AM EST Narrative [facility] - 05/15/2025 10:17 AM EST Biotin supplements can cause clinically significant incorrect lab test results. The FDA has seen an increase in the number of reported adverse events related to biotin interference with lab tests. Neptali Bergman MD LAB BLOOD ORDERABLES Final Res ult Performing Organization Address City/[facility]/ZIP Co de Phone Number [facility] [address] [place] [address] * (ABNORMAL) Hepatic function panel (05/14/2025 8:14 AM EST) Protein, Total 8.6(H) 6.4 - 8.2 gm/dL 05/14/2025 9:16 AM EST [facility] Albumin 3.9 3.4 - 5.0 g/dL 05/14/2025 9:16 AM EST [facility] Total Bilirubin 0.7 0.2 - 1.3 mg/dL 05/14/2025 9:16 AM [facility] Bilirubin, Direct 0.1 0.0 - 0.2 mg/dL 05/14/2025 9:16 AM [facility] Alkaline Phosphatase 121 27 - 136 U/L 05/14/2025 9:16 AM [facility] Globulin 4.7(H) 1.5 - 4.5 g/dL 05/14/2025 9:16 AM [facility] A/G Ratio 0.8(L) 1.1 - 2.5 05/14/2025 9:16 AM [facility] AST 24 5 - 37 U/L 05/14/2025 9:16 AM [facility] Comment:[employer] has become aware of sulfasalazine and sulfapyridine [...] 12 - 78 U/L 05/14/2025 9:16 AM [facility] Comment:[employer] has become aware of sulfasalazine and sulfapyridine [...] MD LAB BLOOD ORDERABLES Final Res ult [facility] [address] [phone] * EXTERNAL CARDIOLOGY - MISC (04/30/2025 8:14 AM EST) Anatomical Region Laterality Modality Other us Historical Provider CV CARDIAC SERVICES ORDER EDUIN Final Result from Last 3 Months Insurance [facility] MEDICARE PPO [employer] MEDICARE PPO Advance Directives For more information, please contact: [phone] Documents on File Type Date Recorded Patient Sales And Service Change Leader Expl anation Advance Directives and Livin g Will 12/08/2022 8:51 AM Care Teams Chief Green Officer Relationship Specialty Start Date End Date Heidi Rivers, DISTILLER [address] [place] [address] PCP - General Nurse Practitioner 04/06/23 Neptali Bergman MD [address] [facility] [address] [place] [address] Hematology and Oncology 10/31/24
--- OUTSIDE RECORDS SUMMARY | 2025-05-21 09:46 | XMS_ITS | Encounter Summary ---
Author Organization [employer] ([place], [place], [place], [place], [place]) Address [address] [place] [address] Care Team Providers Care Java Developer Analyst Name Role Phone Jonas Navas MD Primary Care Provider [phone] Marcell Uriostegui MD Primary Care Provider + [phone] Heidi Rivers APRN Primary Care Provider + [phone] Neptali Bergman MD Unavailable [phone] Encounter Details Date Type Department Care Team (Late st Contact Info) Description 07/28/2019 Transcribed Document [facility] [place] [facility] [place] [address] ProviderJennifer MD [address] [place] [address] Social History Tobacco Use Types Packs/Day Years Used Date Smoking Tobacco: Never Assessed Comments Unknown Sex and Gender Information Value Date Recorded Sex Assigned at Not on file Legal Sex Female 1:09 PM CDT Gender Identity Not on file Sexual Orientation Not on file documented as of this encounter Miscellaneous Notes * Cerner Conversion Note - Jennifer ProviderMD - 07/28/2019 5:00 AM HAND DRY CLEANER Chart Check - Review Order Profile Entered On: 07/28/2019 5:22 EST Performed On: 07/28/2019 5:00 EST by Ishaan Gonzales RN Chart Check Powerplans Initiated/Discontinued as Appropriate : Yes All Active Orders Reviewed : Yes Ishaan Gonzales RN - 07/28/2019 5:22 EST Electronically signed by [facility] Conversion Teacher Education Director Cerner at 09/10/2022 12:48 AM CDT documented in this encounter Plan of Treatment Upcoming Encounters Date Type Department Care Team (Late st Contact Info) Description 11/12/2025 3:30 PM EDT Office Visit [facility] - [place] [address] [place] [address] Neptali Bergman MD [address] [facility] [address] [place] [address] documented as of this encounter Visit Diagnoses Not on filedocumented in this encounter Care Teams Java Developer Analyst Relationship Specialty Start Date End Date Jonas Navas MD [address] [facility] [address] [place] [address] PCP - General Cardiothoracic Surgery 04/15/22 07/23/22 Marcell Uriostegui MD [address] [facility] [address] [place] [address] PCP - General Adolescent Medicine 07/24/22 04/05/23 Heidi Rivers, ROMERO [address] [place], [place] [address] PCP - General Nurse Practitioner 04/06/23 Neptali Bergman MD [address] [facility] [address] [place] [address] Hematology and Oncology 10/31/24 documented as of this encounter
--- OUTSIDE RECORDS SUMMARY | 2025-05-21 09:46 | XMS_ITS | Encounter Summary ---
Author Organization [employer] ([place], [place], [place], [place], [place]) Address [address] [place] [address] Care Team Providers Care Manufacturing Cost Estimator Name Role Phone Jonas Navas MD Primary Care Provider [phone] Marcell Uriostegui MD Primary Care Provider + [phone] Heidi Rivers APRN Primary Care Provider + [phone] Neptali Bergman MD Unavailable [phone] Encounter Details Date Type Department Care Team (Late st Contact Info) Description 07/26/2019 Transcribed Document [facility] [place] Family Medicine [facility] [place] [address] ProviderJennifer MD [address] [place] [address] Social History Tobacco Use Types Packs/Day Years Used Date Smoking Tobacco: Never Assessed Comments Unknown Sex and Gender Information Value Date Recorded Sex Assigned at Not on file Legal Sex Female 1:09 PM CDT Gender Identity Not on file Sexual Orientation Not on file documented as of this encounter Miscellaneous Notes * Cerner Conversion Note - Jennifer ProviderMD - 07/26/2019 12:20 PM CHEMICAL LABORATORY SCIENTIST UM Authorization Entered On: 07/26/2019 12:20 EST Performed On: 07/26/2019 12:20 EST by SURENDRA FRANK Rn-Utilization Review Primary Insurance Authorization Authorization and Policy Numbers : Insurance 1 Health Plan: [email or web address] Policy Number: [id number] Authorization Number: [id number] Insurance Primary Name : [facility] Policy Number: [id number] Authorization Status-Primary : Admit approved Authorization Number-Primary : [id number] Number of Days Authorized-Primary : 3 Day(s) Authorized Service Begin Date-Primary : 07/25/2019 EST Authorized Service End Date-Primary : 07/28/2019 EST Historical Authorization Comments-Primary : Comment 1: [place] approved per availity for 4 days inpt (NORI VALVERDE RN-Utilization Review 07/21/2019 13:39) SURENDRA FRANK Rn-Utilization Review - 07/26/2019 12:20 EST Electronically signed by Hossein [facility] Conversion Outpatient Therapist Cerner at 09/10/2022 12:45 AM CDT documented in this encounter Plan of Treatment Upcoming Encounters Date Type Department Care Team (Late st Contact Info) Description 11/12/2025 3:30 PM EDT Office Visit [facility] - [address] [place] [phone] Neptali Bergman MD [address] [place] [address] [address] [place] [address] documented as of this encounter Visit Diagnoses Not on filedocumented in this encounter Care Teams Manufacturing Cost Estimator Relationship Specialty Start Date End Date Jonas Navas MD [address] [facility] [address] [place], [place] [address] PCP - General Cardiothoracic Surgery 04/15/22 07/23/22 Marcell Uriostegui MD [address] [facility] [address] [place] [address] PCP - General Adolescent Medicine 07/24/22 04/05/23 Heidi Rivers, ROMERO [address] [place] [address] PCP - General Nurse Practitioner 04/06/23 [place] [address] [place] [address] [address] [place] [address] Hematology and Oncology 10/31/24 documented as of this encounter
--- OUTSIDE RECORDS SUMMARY | 2025-05-21 09:46 | XMS_ITS | Encounter Summary ---
Author Organization [employer] ([place], [place], [place], [place], [place]) Address [address] [place] [address] Care Team Providers Care Meeting Coordinator Name Role Phone Jonas Navas MD Primary Care Provider [phone] Marcell Uriostegui MD Primary Care Provider + [phone] Heidi Rivers APRN Primary Care Provider + [phone] Neptali Bergman MD Unavailable [phone] Encounter Details Date Type Department Care Team (Late st Contact Info) Description 07/28/2019 Transcribed Document [facility] [place] Family [place] [facility] [place] [address] ProviderJennifer MD [address] [place] [address] Social History Tobacco Use Types Packs/Day Years Used Date Smoking Tobacco: Never Assessed Comments Unknown Sex and Gender Information Value Date Recorded Sex Assigned at Not on file Legal Sex Female 1:09 PM CDT Gender Identity Not on file Sexual Orientation Not on file documented as of this encounter Miscellaneous Notes * Cerner Conversion Note - Jennifer ProviderMD - 07/28/2019 5:00 PM VENEER LATHE OPERATOR Chart Check - Review Order Profile Entered On: 07/28/2019 17:33 EST Performed On: 07/28/2019 17:00 EST by CHERI MUNIZ, RN Chart Check Powerplans Initiated/Discontinued as Appropriate : Yes All Active Orders Reviewed : Yes CHERI MUNIZ RN - 07/28/2019 17:33 EST Electronically signed by Hossein [facility] Conversion Rescue Boat Operator Cerner at 09/10/2022 12:34 AM CDT documented in this encounter Plan of Treatment Upcoming Encounters Date Type Department Care Team (Late st Contact Info) Description 11/12/2025 3:30 PM EDT Office Visit [facility] - [place] [place] [address] Neptali Bergman MD [address] [facility] [address] [place] [address] documented as of this encounter Visit Diagnoses Not on filedocumented in this encounter Care Teams Meeting Coordinator Relationship Specialty Start Date End Date Jonas Navas MD [address] [facility] [address] [place] [address] PCP - General Cardiothoracic Surgery 04/15/22 07/23/22 Marcell Uriostegui MD 1210 [facility] [address] [place] [address] PCP - General Adolescent Medicine 07/24/22 04/05/23 Heidi Rivers, ROMERO [address] [place], [place] [address] PCP - General Nurse Practitioner 04/06/23 Neptali Bergman MD [address] [facility] [address] [place] [address] Hematology and Oncology 10/31/24 documented as of this encounter
--- OUTSIDE RECORDS SUMMARY | 2025-05-21 09:46 | XMS_ITS | Encounter Summary ---
Author Organization [employer] ([place], [place], [place], [place], [place]) Address [address] [place] [address] Care Team Providers Care Manager Clinical Pharmacy Name Role Phone Jonas Navas MD Primary Care Provider [phone] Marcell Uriostegui MD Primary Care Provider + [phone] Heidi Rivers APRN Primary Care Provider + [phone] Neptali Bergman MD Unavailable [phone] Encounter Details Date Type Department Care Team (Late st Contact Info) Description 2020 Transcribed Document [facility] [place] [address] ProviderJennifer MD [address] [place] [address] Social History Tobacco Use Types Packs/Day [...] Policy Numbers : Insurance 1 Health Plan: [employer] Policy Number: [id number] Authorization Number: Insurance Primary Name : [employer] Policy Number: [id number] Authorization Status-Primary : Awaiting callback Reference Number-Primary : Insurance inactive Authorized Service Begin Date-Primary : 12/03/2020 EDT Authorization Comments-Primary : Insurance inactive per Availity, em to [place] to verify Historical Authorization Comments-Primary : No Authorization Comments Found CICI DIAZ, RN - 2020 11:20 EDT Electronically signed by Hossein [facility] Conversion Teacher Visually Impaired Cerner at 09/10/2022 12:48 AM CDT documented in this encounter Plan of Treatment Upcoming Encounters Date Type Department Care Team (Late st Contact Info) Description 11/12/2025 3:30 PM EDT Office Visit [facility] - [address] [place] [address] Neptali Bergman MD [address] [place] [address] [address] [place] [address] documented as of this encounter Visit Diagnoses Not on filedocumented in this encounter Care Teams Manager Clinical Pharmacy Relationship Specialty Start Date End Date Jonas Navas MD [address] [facility] [address] [place], [place] [address] PCP - General Cardiothoracic Surgery 04/15/22 07/23/22 Marcell Uriostegui MD [address] [place] [address] [place] [address] PCP - General Adolescent Medicine 07/24/22 04/05/23 Heidi Rivers, ROMERO 2017 [facility] [address] [place] [address] PCP - General Nurse Practitioner 04/06/23 [place] [address] [place] [address] [address] [place] [address] Hematology and Oncology 10/31/24 documented as of this encounter
--- OUTSIDE RECORDS SUMMARY | 2025-05-21 09:46 | XMS_ITS | Encounter Summary ---
Author Organization [employer] ([place], [place], [place], [place], [place]) Address [address] [place] [address] Care Team Providers Care Oil Expeller Name Role Phone Jonas Navas MD Primary Care Provider [phone] Marcell Uriostegui MD Primary Care Provider + [phone] Heidi Rivers APRN Primary Care Provider + [phone] Neptali Bergman MD Unavailable [phone] Encounter Details Date Type Department Care Team (Late st Contact Info) Description 07/27/2019 Transcribed Document [facility] [place] [address] ProviderJennifer MD [address] [place] [address] Social History Tobacco Use Types Packs/Day Years Used Date Smoking Tobacco: Never Assessed Comments Unknown Sex and Gender Information Value Date Recorded Sex Assigned at Not on file Legal Sex Female 1:09 PM CDT Gender Identity Not on file Sexual Orientation Not on file documented as of this encounter Miscellaneous Notes * Cerner Conversion Note - Jennifer ProviderMD - 07/27/2019 5:00 PM BICYCLE TAXI DRIVER Chart Check - Review Order Profile Entered On: 07/27/2019 16:51 EST Performed On: 07/27/2019 17:00 EST by CHERI MUNIZ RN Chart Check Powerplans Initiated/Discontinued as Appropriate : Yes All Active Orders Reviewed : Yes CHERI MUNIZ RN - 07/27/2019 16:51 EST documented in this encounter Plan of Treatment Upcoming Encounters Date Type Department Care Team (Late st Contact Info) Description 11/12/2025 3:30 PM EDT Office Visit [facility] - [place] [address] [place] [address] Neptali Bergman MD [address] [facility] [address] [place] [address] documented as of this encounter Visit Diagnoses Not on filedocumented in this encounter Care Teams Oil Expeller Relationship Specialty Start Date End Date Jonas Navas MD 1401 [facility] [address] [place] [address] PCP - General Cardiothoracic Surgery 04/15/22 07/23/22 Marcell Uriostegui MD 1210 [facility] [address] [place] [address] PCP - General Adolescent Medicine 07/24/22 04/05/23 Heidi Rivers, ROMERO [address] [place], [place] [address] PCP - General Nurse Practitioner 04/06/23 Neptali Bergman MD [address] [facility] [address] [place] [address] Hematology and Oncology 10/31/24 documented as of this encounter
--- OUTSIDE RECORDS SUMMARY | 2025-05-21 09:46 | XMS_ITS | Encounter Summary ---
Author Organization [employer] ([place], [place], [place], [place], [place]) Address [address] [place] [address] Care Team Providers Care Textbook Associate Name Role Phone Jonas Navas MD Primary Care Provider [phone] Marcell Uriostegui MD Primary Care Provider + [phone] Heidi Rivers APRN Primary Care Provider + [phone] Lu Bergman MD Unavailable [phone] Encounter Details Date Type Department Care Team (Late st Contact Info) Description 07/27/2019 Transcribed Document [facility] [place] [address] [place] [address] ProviderJennifer MD [address] [place] [address] Social History Tobacco Use Types Packs/Day Years Used Date Smoking Tobacco: Never Assessed Comments Unknown Sex and Gender Information Value Date Recorded Sex Assigned at Not on file Legal Sex Female 1:09 PM CDT Gender Identity Not on file Sexual Orientation Not on file documented as of this encounter Miscellaneous Notes * Cerner Conversion Note - Historical ProviderMD - 07/27/2019 11:55 AM MAMMOGRAPHY TECHNOLOGIST Spiritual Care Short Form Entered On: 07/27/2019 13:09 EST Performed On: 07/27/2019 11:55 EST by LU GARNER General Information, Spiritual Care Spiritual Care Referred by : Family Reason for Visit : Referral/Consult Ministry Provided to : Patient, Family/Significant other Intervention/Comment/Summary Points : Provided supportive presence to patient and guest tray voucher for . LU GARNER - 07/27/2019 13:08 EST Electronically signed by Hossein [facility] Conversion Rotary Pump Operator Cerner at 09/10/2022 12:49 AM CDT documented in this encounter Plan of Treatment Upcoming Encounters Date Type Department Care Team (Late st Contact Info) Description 11/12/2025 3:30 PM EDT Office Visit [place] [facility] [address] [place] [address] Lu Bergman MD [address] [place] [address] [address] [place] [address] documented as of this encounter Visit Diagnoses Not on filedocumented in this encounter Care Teams Textbook Associate Relationship Specialty Start Date End Date Jonas Navas MD [address] [facility] [address] [place] [address] PCP - General Cardiothoracic Surgery 04/15/22 07/23/22 Marcell Uriostegui MD [address] [place] [address] [place] [address] PCP - General Adolescent Medicine 07/24/22 04/05/23 Heidi Rivers, INBOUND SALES MANAGER [address] [place] [address] PCP - General Nurse Practitioner 04/06/23 Lu Bergman MD [address] [place] [address] [address] [place] [address] Hematology and Oncology 10/31/24 documented as of this encounter
--- OUTSIDE RECORDS SUMMARY | 2025-05-21 09:46 | XMS_ITS | Encounter Summary ---
Author Organization [employer] ([place], [place], [place], [place], [place]) Address [address] [place] [address] Care Team Providers Care Supervisor Home Restoration Service Name Role Phone Jonas Navas MD Primary Care Provider [phone] Marcell Uriostegui MD Primary Care Provider + [phone] Heidi Rivers APRN Primary Care Provider + [phone] Neptali Bergman MD Unavailable [phone] Encounter Details Date Type Department Care Team (Late st Contact Info) Description 07/30/2019 Transcribed Document [facility] [place] [address] ProviderJennifer MD [address] [place] [address] Social History Tobacco Use Types Packs/Day [...] 07/30/2019 4:36 EDT Electronically signed by Hossein [facility] Conversion Channel Partners Cerner at 09/10/2022 12:47 AM CDT documented in this encounter Plan of Treatment Upcoming Encounters Date Type Department Care Team (Late st Contact Info) Description 11/12/2025 3:30 PM EDT Office Visit [facility] - [address] [facility] [address] [place] [address] Neptali Bergman MD [address] [facility] [address] [place] [address] documented as of this encounter Visit Diagnoses Not on filedocumented in this encounter Care Teams Supervisor Home Restoration Service Relationship Specialty Start Date End Date Jonas Navas MD 14[address] [facility] [address] [place] [address] PCP - General Cardiothoracic Surgery 04/15/22 07/23/22 Marcell Uriostegui MD [address] [place] [address] [place] [address] PCP - General Adolescent Medicine 07/24/22 04/05/23 Heidi Rivers, ROMERO [address] [place] [address] PCP - General Nurse Practitioner 04/06/23 eNptali Bergman MD [address] [facility] [address] [place] [address] Hematology and Oncology 10/31/24 documented as of this encounter
--- OUTSIDE RECORDS SUMMARY | 2025-05-21 09:46 | XMS_ITS | Encounter Summary ---
Author Organization [employer] ([place], [place], [place], [place], [place]) Address [address] [place] [address] Care Team Providers Care Transportation Security Officer Name Role Phone Jonas Navas MD Primary Care Provider [phone] Marcell Uriostegui MD Primary Care Provider + [phone] Heidi Rivers APRN Primary Care Provider + [phone] Neptali Bergman MD Unavailable [phone] Encounter Details Date Type Department Care Team (Late st Contact Info) Description 07/31/2019 Transcribed Document [facility] Family Medicine [facility] [place] [address] ProviderJennifer MD [address] [place] [address] Social History Tobacco Use Types Packs/Day [...] Bed scale Routine Weight Entry Format : [place] Routine Weight, Pounds : 162 lb Routine Weight Calculation : 73.64 kg Height Source : Measured Height Entry Format : [place] Height, Feet : 5 ft Height, Inches : 2 Inch Clinical Height : 157.48 cm Body Surface Area (BSA), Routine : 1.75 m2 Body Mass Index (BMI), Routine : 29.69 kg/m2 Cady Merlos Care Asst-Health Unit [facility] - 07/31/2019 5:05 EDT Electronically signed by Hossein, [facility] Conversion Digital Sales Representative Cerner at 09/10/2022 12:36 AM CDT documented in this encounter Plan of Treatment Upcoming Encounters Date Type Department Care Team (Late st Contact Info) Description 11/12/2025 3:30 PM EDT Office Visit [place] [facility] - [address] [place] [address] Neptali Bergman MD [address] [place] [address] [address] [place] [address] documented as of this encounter Visit Diagnoses Not on filedocumented in this encounter Care Teams Transportation Security Officer Relationship Specialty Start Date End Date Jonas Navas MD [address] [facility] [address] [place], [place] [address] PCP - General Cardiothoracic Surgery 04/15/22 07/23/22 Marcell Uriostegui MD [address] [place] [address] PCP - General Adolescent Medicine 07/24/22 04/05/23 Heidi Rivers APRN [address] [place] [address] PCP - General Nurse Practitioner 04/06/23 [place] [address] [place] [address] [address] [place] [address] Hematology and Oncology 10/31/24 documented as of this encounter
--- OUTSIDE RECORDS SUMMARY | 2025-05-21 09:46 | XMS_ITS | Encounter Summary ---
Author Organization [employer] ([place], [place], [place], [place], [place]) Address [address] [place] [address] Care Team Providers Care Silica Dry Press Helper Name Role Phone Jonas Navas MD Primary Care Provider [phone] Marcell Uriostegui MD Primary Care Provider + [phone] Heidi Rivers APRN Primary Care Provider + [phone] Neptali Bergman MD Unavailable [phone] Encounter Details Date Type Department Care Team (Late st Contact Info) Description 12/07/2020 Transcribed Document [facility] [place] Family Medicine [facility] [address] ProviderJennifer MD [address] [place] [address] Social History Tobacco Use Types Packs/Day [...] surgery, lung cancer, COPD, DM, CAD with [place]. RN asks for eval immediately due to [...] home. Plan for Treatment : DC PTx ISMAEL CARRERA, PT - 12/09/2020 14:41 EDT Pain Assessment Pain Scaled Used : 0-10 Pain scale Pain Score During-Intervention : 0 ISMAEL ACRRERA, PT - 12/09/2020 14:41 EDT Image 1 - Images currently included in the form version of this document have not been included in the text rendition version of the form. Anticipated Discharge Needs, OT/PT Anticipated Discharge to : Home, with family care ISMAEL CARRERA, PT - 12/09/2020 14:[address] [facility] PT Charges PT Eval Low Complexity : 1 ISMAEL CARRERA, PT - 12/09/2020 14:41 EDT Electronically signed by [facility], [facility] Conversion Brusher Operator Cerner at 09/10/2022 12:47 AM CDT documented in this encounter Plan of Treatment Upcoming Encounters Date Type Department Care Team (Late st Contact Info) Description 11/12/2025 3:30 PM EDT Office Visit [place] [facility] - [address] [place] [address] Neptali Bergman MD [address] [place] [address] [address] [place] [address] documented as of this encounter Visit Diagnoses Not on filedocumented in this encounter Care Teams Silica Dry Press Helper Relationship Specialty Start Date End Date Jonas Navas MD [address] [facility] [address] [place], [place] [address] PCP - General Cardiothoracic Surgery 04/15/22 07/23/22 Marcell Uriostegui MD [address] [place] [address] [place] [address] PCP - General Adolescent Medicine 07/24/22 04/05/23 Heidi Rivers, ADMINISTRATIVE SUPPORT ASSISTANT [address] [place] [address] PCP - General Nurse Practitioner 04/06/23 Neptali Bergman MD [address] [address] Hematology and Oncology 10/31/24 documented as of this encounter
--- OUTSIDE RECORDS SUMMARY | 2025-05-21 09:46 | XMS_ITS | Encounter Summary ---
Author Organization [employer] ([place], [place], [place], [place], [place]) Address [address] [place] [address] Care Team Providers Care Low Voltage Electrician Name Role Phone Jonas Navas MD Primary Care Provider [phone] Marcell Uriostegui MD Primary Care Provider + [phone] Heidi Rivers APRN Primary Care Provider + [phone] Lu Bergman MD Unavailable [phone] Encounter Details Date Type Department Care Team (Late st Contact Info) Description 2020 Transcribed Document [facility] [place] [facility] [place] [address] ProviderJennifer MD [address] [place] [address] Social History Tobacco Use Types Packs/Day [...] abdominal metastases, COPD, NIDDM, GERD, HLD, HTN, LA, TIA, and CAD who presents to our [...] chronic cough Claustrophobia Coronary artery disease s/p LA Diabetes mellitus type II Diverticulosis GERD - Gastro-esophageal reflux disease H/O: TIA Hiatal hernia High blood pressure History of obstructive sleep apnea Hyperlipidemia Migraine Seasonal allergies Shortness of breath Sinusitis Sleep apnea no c-pap Historical Pneumonia Procedure/Surgical History FUSION LUMSAC JT W INTBD FUS DEV, POST APPR A COL, OPEN (05/22/2020), MONITOR PERIPHERAL NERVOUS ELECTR ACTIVITY, INTRAOP, MANAGER OF INTERNAL (05/22/2020), RESECTION OF LUMBOSACRAL DISC, OPEN APPROACH [...] refills fluticasone 50 mcg/inh nasal spray, 2 [place], Nasal, Daily, PRN hydroCHLOROthiazide-lisinopril 25 mg-20 mg oral tablet, 1 Tab, Oral, Daily [place] 10 mg-325 mg oral tablet, 1 Tab, [...] ALYC # 2 K/uL 2020 02:00 EDT [place] Percent Man 0 % (Low) 2020 03:21 EDT [place] Percent Man 2 % (Low) 2020 02:00 [...] Appearance CLEAR2 2020 01:32 EDT Urine Specific [place] 1.013 2020 01:32 EDT Urine pH Dipstick [...] 2020 01:32 EDT Electronically signed by Hossein [facility] Conversion Bisque Ware Dipper Cerner at 09/10/2022 12:47 AM CDT documented in this encounter Plan of Treatment Upcoming Encounters Date Type Department Care Team (Late st Contact Info) Description 11/12/2025 3:30 PM EDT Office Visit [place] [facility] - [address] [facility] [address] [place] [phone] Lu Bergman MD [address] [place] [address] documented as of this encounter Visit Diagnoses Not on filedocumented in this encounter Care Teams Low Voltage Electrician Relationship Specialty Start Date End Date Jonas Navas MD [address] [facility] [address] [place] [address] PCP - General Cardiothoracic Surgery 04/15/22 07/23/22 Marcell Uriostegui MD [facility] [facility] [address] [place] [address] PCP - General Adolescent Medicine 07/24/22 04/05/23 Heidi Rivers, MIDLEVEL PROVIDER 2017 [facility] [address] [place] [address] PCP - General Nurse Practitioner 04/06/23 Lu Bergman MD [address] [facility] [address] [place] [address] Hematology and Oncology 10/31/24 documented as of this encounter
--- OUTSIDE RECORDS SUMMARY | 2025-05-21 09:46 | XMS_ITS | Encounter Summary ---
Author Organization [employer] ([place], [place], [place], [place], [place]) Address [address] [place] [address] Care Team Providers Care Watch Repair Technician Name Role Phone Jonas Navas MD Primary Care Provider [phone] Marcell Uriostegui MD Primary Care Provider + [phone] Heidi Rivers APRN Primary Care Provider + [phone] Neptali Bergman MD Unavailable [phone] Encounter Details Date Type Department Care Team (Late st Contact Info) Description 07/29/2019 Transcribed Document [facility] [place] [address] ProviderJennifer MD [address] [place] [id number] Social History Tobacco Use Types Packs/Day Years Used Date Smoking Tobacco: Never Assessed Comments Unknown Sex and Gender Information Value Date Recorded Sex Assigned at Not on file Legal Sex Female 1:09 PM CDT Gender Identity Not on file Sexual Orientation Not on file documented as of this encounter Miscellaneous Notes * Cerner Conversion Note - Jennifer ProviderMD - 07/29/2019 2:00 AM MEDICAL REIMBURSEMENT SPECIALIST Prosthetics Assistant Details Entered On: 07/29/2019 5:09 EST Performed [...] Celio, August, RN - 07/29/2019 5:09 EST documented in this encounter Plan of Treatment Upcoming Encounters Date Type Department Care Team (Late st Contact Info) Description 11/12/2025 3:30 PM EDT Office Visit [facility] - [facility] [address] [place] [address] Neptali Bergman MD [address] [place] [address] [address] [place] [address] documented as of this encounter Visit Diagnoses Not on filedocumented in this encounter Care Teams Watch Repair Technician Relationship Specialty Start Date End Date Jonas Navas MD [address] [facility] [address] [place] [address] PCP - General Cardiothoracic Surgery 04/15/22 07/23/22 Marcell Uriostegui MD [address] [place] [address] [place] [address] PCP - General Adolescent Medicine 07/24/22 04/05/23 Heidi Rivers, MICROSCOPIST [address] [place] [address] PCP - General Nurse Practitioner 04/06/23 Neptali Bergman MD [address] [facility] [address] [place] [address] Hematology and Oncology 10/31/24 documented as of this encounter
--- NOTE | 2025-05-21 09:47 | ECG_ITS ---
APPROVED REPORT Exam: Resting ECG HR:82 bpm ECG Measurements Heart Rate 82 AXES DC 173 P 67 QRSd 154 QRS 204 QT 419 T 30 QTc 457 Conclusion SINUS RHYTHM POSSIBLE LEFT ATRIAL ENLARGEMENT [-0.1mV P-WAVE IN V1/V2] INDETERMINATE AXIS RIGHT BUNDLE BRANCH BLOCK [120+ ms QRS DURATION, UPRIGHT V1, 40+ ms S IN I/aVL/V4/V5/V6] ABNORMAL ECG UNCONFIRMED REPORT Electronically signed by : Jordy Daigle, 05/21/2025 15:00:59
[2025-05-21 09:49] LABS: Albumin Level 4.3 g/dl (3.5-5.0); Albumin/Globulin Ratio 1.1 (1.1-1.8); Alkaline Phosphatase 92 U/L (38-126); Anion Gap 9.8 mEq/L (5-15); Bilirubin,Total 0.6 mg/dl (0.2-1.3); Blood Urea Nitrogen 21 mg/dl (7-17); Calcium 9.2 mg/dl (8.4-10.2); Carbon Dioxide 36 mmol/L (22.0-30.0); Chloride 95 mmol/L (98-107); Creatinine Clearance Estimated 54 mL/min (50-200); Creatinine,Serum 1.00 mg/dl (0.52-1.04); Estimated Glomerular Filt Rate 55 ml/min (>60); GFR (African American) 67 ML/MIN (>60); Globulin 3.8 g/dL (1.3-3.2); Glucose 117 mg/dl (74-100); Lipase 150 U/L (23-300); Potassium 3.8 mmoL/L (3.5-5.1); Sodium 137 mmol/L (136-145); Total Protein,Serum 8.1 g/dl (6.3-8.2)
[2025-05-21 09:51] LABS: Alanine Aminotransferase 16 U/L (12-78); Aspartate Amino Transferase 29 U/L (14-36)
[2025-05-21 09:54] LABS: D-Dimer 0.54 ug/mL (0.0-0.5)
--- NOTE | 2025-05-21 09:54 | ED_ITS ---
Discharge Plan Disposition Patient Disposition: Admitted Prescriptions Prescriptions: No Action prednisone 20 mg tablet 2.5 mg PO DAILY Patient Comments: 2.5 rommel lisinopril-hydrochlorothiazide [Zestoretic] 20-25 mg tablet 1 tab PO DAILY omeprazole 20 mg capsule,delayed release(DR/EC) 20 mg PO DAILY atorvastatin 40 mg tablet 40 mg PO DAILY alprazolam [Xanax] 0.5 mg tablet 0.5 mg PO HS PRN (Reason: Sleep) azelastine [Astepro Allergy] 205.5 mcg (0.15 %) spray,non-aerosol 2 spray intranasal HS 90 Days Qty: 30 3RF Rx Instructions: administer into each nostril fluticasone propionate [Flonase Allergy Relief] 50 mcg/actuation spray,suspension 2 spray intranasal DAILY 90 Days Qty: 16 2RF Rx Instructions: administer into each nostril ipratropium-albuterol 0.5 mg-3 mg(2.5 mg base)/3 mL solution for nebulization 3 ml inhalation QID PRN (Reason: shortness of breath or wheezing) 90 Days Qty: 90 3RF albuterol sulfate [Ventolin HFA] 90 mcg/actuation HFA aerosol inhaler 2 inh inhalation QID PRN (Reason: shortness of breath or wheezing) 90 Days Qty: 8.5 3RF azelastine 137 mcg (0.1 %) spray,non-aerosol 2 spray intranasal HS 90 Days Qty: 30 2RF Rx Instructions: administer into each nostril acetylcysteine 500 mg capsule 500 mg PO DAILY PRN (Reason: cough) Qty: 30 0RF Trelegy Ellipta 100-62.5-25 mcg blister with device See Rx Instructions .ROUTE .COMPLEX Qty: 180 2RF Dose Instruction: INHALE 1 PUFF BY MOUTH EVERY DAY DIRECTED Rx Instructions: INHALE 1 PUFF BY MOUTH EVERY DAY DIRECTED montelukast 10 mg tablet See Rx Instructions .ROUTE .COMPLEX Qty: 90 0RF Dose Instruction: TAKE 1 TABLET BY MOUTH ONCE DAILY Rx Instructions: TAKE 1 TABLET BY MOUTH ONCE DAILY aspirin 325 MG tablet 325 mg PO DAILY albuterol sulfate [Ventolin HFA] 90 mcg/actuation HFA aerosol inhaler 2 inh inhalation QID PRN (Reason: shortness of breath or wheezing) Referrals Follow up/Referrals: Heidi Rivers APRN [Primary Care Provider, Medical] - See instructions Clinical Impressions Clinical Impression: Chest pain, Acute hypercapnic respiratory failure, Acute exacerbation of chronic obstructive pulmonary disease Print Language Print Language: Uzbek Discharge ED Provider: Alla Daigle [facility] General Chief Complaint: Chest Pain Stated Complaint: chest pain Time Seen by Provider: 05/21/25 09:29 Mode of Arrival: EMS Source of Information: Patient and EMS Description of Symptoms (Recalled from ER Triage Doc. by RN): EMS was called out for pt with chest pain. EMS states the pt reports chest pain in the center of her chest that radiates to her back with an inital 10 of 10 constant pain. Pt took 2 nitro that decreased the pain to an 8 of 10. EMS gave 1 nitro, 324mg Aspirin, 25mcg Fentanyl, and 4mg Zofran enroute. pt wears 3l 02 NC at baseline. pt states the pain is now a 5 of 10. hx of lung cancer and COPD. Denies shortness of breath, nausea and vomiting. History of Present Illness HPI narrative: 69-year-old with extensive past medical history including COPD pulmonary hypertension coronary disease stage IV lung cancer in remission presents today with chest pain that began this morning radiating through to her back this initially 10 out of 10. She took nitroglycerin at home without any significant improvement was given fentanyl and route pain went at that point from 10 out of 10 to 5 out of 10. Still states she has significant pain radiating through to her back. Denies any significant shortness of breath cough wheezing etc. Wears 3 L nasal cannula at home. Prehospital twelve-lead showed right bundle rose block without any ischemic changes Related Data Home Medications ?Medication ?Instructions ?Recorded ?Confirmed atorvastatin 40 mg tablet 40 mg PO DAILY Cholesterol 0 09/21/18 05/08/25 lisinopril 20 1 tab PO DAILY Hypertension 09/21/18 05/08/25 mg-hydrochlorothiazide 25 mg tablet (Zestoretic) omeprazole 20 mg capsule,delayed 20 mg PO DAILY acid r eflux 09/21/18 05/08/25 release aspirin 325 mg tablet,delayed 325 mg PO DAILY heart he alth 12/02/20 05/08/25 release alprazolam 0.5 mg tablet (Xanax) 0.5 mg PO HS PRN Slee p 09/22/22 05/08/25 prednisone 20 mg tablet 2.5 mg PO DAILY 04/27/23 albuterol sulfate 90 mcg/actuation 2 inh inhalation QI D PRN shortness 04/06/25 05/08/25 aerosol inhaler (Ventolin HFA) of breath or wheezing Previous Rx's ?Medication ?Instructions ?Recorded azelastine 205.5 mcg (0.15 %) 2 spray intranasal HS 90 days #30 10/27/23 nasal spray (Astepro Allergy) mL montelukast 10 mg tablet See Rx Instructions .Route 0 01/12/25 .COMPLEX #90 tabs acetylcysteine 500 mg capsule 500 mg PO DAILY PRN coug h #30 caps 05/08/25 albuterol sulfate 90 mcg/actuation 2 inh inhalation QI D PRN shortness 05/08/25 aerosol inhaler (Ventolin HFA) of breath or wheezing 9 0 days #8.5 grams azelastine 137 mcg (0.1 %) nasal 2 spray intranasal HS 90 days #30 05/08/25 spray mL fluticasone fur. 100 mcg-umeclid See Rx Instructions . Route 05/08/25 62.5 mcg-vilant 25 mcg .COMPLEX #180 blisters inhalat.powder (Trelegy Ellipta) fluticasone propionate 50 2 spray intranasal DAILY 90 days 05/08/25 mcg/actuation nasal #16 grams spray,suspension (Flonase Allergy Relief) ipratropium 0.5 mg-albuterol 3 mg 3 ml inhalation QID PRN shortness 05/08/25 (2.5 mg base)/3 mL nebulization of breath or wheezing 90 days #90 soln mL Allergies Allergy/AdvReac Type Severity Reaction Status Date / Time pembrolizumab (From Keytruda) Allergy Severe Difficulty Verified 05/08/25 15:13 Breathing diltiazem (DILTIAZEM) Allergy Unknown UNKNOWN Verified 05/08/25 15:13 levofloxacin (From LEVAQUIN) Allergy Unknown NA-NAUSEA/V Verified 05/08/25 15:13 OMITING nadolol (From CORGARD) Allergy Unknown UNKNOWN Verified 05/08/25 15:13 oxycodone (From ROXICET) Allergy Unknown UNKNOWN Verified 05/08/25 15:13 umeclidinium (From Anoro AdvReac Intermediate Chest Pain Verified 05/08/25 15:13 Ellipta) vilanterol (From Anoro AdvReac Intermediate Chest Pain Verified 05/08/25 15:13 Ellipta) morphine AdvReac Hallucinati Verified 05/08/25 15:13 ng olodaterol (From Stiolto AdvReac Chest Pain Verified 05/08/25 15:13 Respimat) tiotropium (From Stiolto AdvReac Chest Pain Verified 05/08/25 15:13 Respimat) [facility] Disclaimer: The information contained in this section may have been updated after the patient was seen, as this information can be updated by other users. Medical History (Updated 05/21/25 @ 09:52 by Alla Daigle MD) COPD (chronic obstructive pulmonary disease) with emphysema History of colon polyps Allergic rhinitis Laryngeal stenosis Vocal cord paralysis Dysphagia Dyspnea on exertion COPD mixed type History of lung or bronchial cancer Smoking greater than 30 pack years Hoarseness of voice Acute respiratory failure with hypoxia History of transient ischemic attack (TIA) History of heart attack Lung cancer Surgical History H/O cataract removal with insertion of prosthetic lens History of colonoscopy History of adrenal surgery History of brain surgery History of abdominal surgery History of appendectomy History of lung surgery Family History Other Family history of cancer Family history of myocardial infarction Social History Smoking Status: Current every day smoker tobacco type: cigarettes packs per day: 1 alcohol intake: current substance use type: denies use and other current occupational status: retired Travel in the last 8 weeks?: None household members: spouse housing: house current occupational exposures/hazards: No caffeine: Yes Have you lived/traveled outside US in past 30 days?: No Contact w/someone who lives/traveled outside US past 30 days?: No Exposure to someone with infectious disease in past 14 days?: No Do you have a fever (greater than 100.4 F or 38 C)?: No Have you tested positive for COVID-19?: No Exposed to someone with COVID-19 in past 14 days?: No Do you have a sore throat?: No Do you have a cough?: No Do you have any weakness?: No Do you have any diarrhea?: No Are you experiencing any unusual bleeding?: No Do you have any muscle aches/pain?: No Do you have any abdominal pain?: No Are you experiencing loss of taste or smell?: No Other Medical History Have you received the Flu Vaccine for this season: No Have you received the Pneumonia Vaccine: Yes ROS Obtained: Yes All systems reviewed & no additional complaints except as documented Physical Exam General General appearance: in distress (Tachypneic partially breathing) Respiratory Respiratory exam: Present other (Oxygen saturations around 90% on 3 L she has pursed lip breathing with prolonged expiratory phase without any wheezing) Cardiovascular Cardiovascular exam: Present regular rate and normal rhythm Abdominal Exam Abdominal exam: Present soft; Absent distention or tenderness Neurological Exam Neurological exam: Present alert, oriented X3 and other (Nonfocal) HEART Score HEART Score HEART Score assessment performed?: Yes History (anamnesis): Moderately suspicious ECG: Non-specific disturbance Age: >65 years Risk factors: Atherosclerosis history Troponin: </= normal limit HEART Score: 6 Procedures Miscellaneous Procedure Procedure Performed: Limited cardiac ultrasound Indication: Chest pain Identified structures: The heart was visualized in the parasternal long axis, parastenal short axis, apical four chamber and subxyphiod views. The IVC was visualized in the short axis and long axis at its entry into the right atrium. Findings: Evidence of right heart strain which is consistent with recent echo no focal regional wall motion abnormalities LVEF is normal no pericardial effusion IVC is less than 2 cm with normal respirophasic variation Impression: No acute changes on bedside ultrasound heart Images were saved to permanent archive The study was technically adequate CPT: 86722-36 This study was performed by me, and I personally interpreted all images/videos. Based on my clinical judgement, these images were adequate and did not necessitate further imaging. Critical Care Critical Care Time Critical Care Time: Yes Attestation: On 05/21/25, the high probability of a clinically significant, sudden or life threatening deterioration of the following system(s) required my full and direct attention, intervention and personal management. The time I documented below is in addition to time spent performing reported procedures but includes the following listed in this critical care notation. Total Time Total Critical Care Time: 35 Medical Decision Making Adryan Inquiry Pt receiving controlled substance: No Vital Signs Vital Signs: 05/21/25 09:23 05/21/25 09:23 05/21/25 09:51 Temperature 97.9 F 97.9 F Temperature Source Oral Oral Pulse Rate 87 84 Pulse Rate [Right] 87 Respiratory Rate 22 22 Blood Pressure 138/83 Blood Pressure [Right Arm] 138/83 Blood Pressure Mean Blood Pressure Mean [Right Arm] 101 Blood Pressure Source Automatic Cuff Blood Pressure Source [Right Arm] Automatic Cuff Blood Pressure Position Supine Blood Pressure Position [Right Arm] Supine 02 Sat by Pulse Oximetry 93 L 93 L Oxygen Delivery Method Nasal Cannula Nasal Cannula Oxygen Flow Rate (LPM) 3 3 Fraction of Inspired Oxygen 05/21/25 10:00 05/21/25 10:42 05/21/25 10:42 Temperature Temperature Source Pulse Rate 76 82 Pulse Rate [Right] Respiratory Rate 21 Blood Pressure 139/87 Blood Pressure [Right Arm] Blood Pressure Mean Blood Pressure Mean [Right Arm] Blood Pressure Source Blood Pressure Source [Right Arm] Blood Pressure Position Blood Pressure Position [Right Arm] 02 Sat by Pulse Oximetry 95 Oxygen Delivery Method Room Air Oxygen Flow Rate (LPM) Fraction of Inspired Oxygen 50 05/21/25 10:51 05/21/25 11:00 05/21/25 11:30 Temperature Temperature Source Pulse Rate 81 69 77 Pulse Rate [Right] Respiratory Rate 8 L 12 18 Blood Pressure 141/72 H 122/74 123/69 Blood Pressure [Right Arm] Blood Pressure Mean 96 Blood Pressure Mean [Right Arm] Blood Pressure Source Blood Pressure Source [Right Arm] Blood Pressure Position Blood Pressure Position [Right Arm] 02 Sat by Pulse Oximetry 99 98 95 Oxygen Delivery Method BiPAP Oxygen Flow Rate (LPM) Fraction of Inspired Oxygen Lab Data Lab results reviewed: Yes I reviewed the patient's lab results. Labs: Lab Results 05/21/25 09:25: WBC 10.7, RBC 4.27, Hgb 12.6, Hct 40.8, MCV 95.6, MCH 29.5, MCHC 30.9 L, RDW 16.0, Plt Count 192, MPV 10.7 H, Neut % (Auto) 65.2, Lymph % (Auto) 23.5, [place] % (Auto) 8.4, Eos % (Auto) 2.0, Baso % (Auto) 0.6, Neut # (Auto) 7.0, Lymph # (Auto) 2.5, [place] # (Auto) 0.9, Eos # (Auto) 0.2, Baso # (Auto) 0.1, D- Dimer 0.54 H, Sodium 137, Potassium 3.8, Chloride 95 L, Carbon Dioxide 36 H, Anion Gap 9.8, BUN 21 H, Creatinine 1.00, Estimated Creat Clear 54, Estimated GFR 55 L, Est GFR ( Amer) 67, Glucose 117 H, Calcium 9.2, Total Bilirubin 0.6, AST 29, ALT 16, Alkaline Phosphatase 92, Troponin I < 0.01, NT-Pro-B Natriuret Pep 1020 H, Total Protein 8.1, Albumin 4.3, Globulin 3.8 H, Albumin/Globulin Ratio 1.1, Lipase 150, HCV Ab TANGELA w/Rflx PCR Qn Negative, HIV Ag/Ab Combo Qual Negative 05/21/25 09:33: VBG pH 7.21 L, VBG pCO2 89.4 H, VBG pO2 40.1 H, VBG HCO3 35.2 H, VBG Total CO2 37.9 H, VBG O2 Saturation 68.5, VBG Base Excess 7.4 H, VBG Lactic Acid 1.8 05/21/25 09:25 05/21/25 09:25 Response Orders (Tests/Meds): ED MEDICATIONS Discontinued Medications Generic Name Dose Route Start Last Admin Trade Name Freq PRN Reason Stop Dose Admin Albuterol/Ipratropium 3 ml 05/21/25 09:49 05/21/25 10:13 Ipratropium/Albuterol 3 Ml Neb IH 05/21/25 09:50 3 ml ONCE ONE Administration Lactated Ringer's 1,000 mls @ 999 mls/hr 05/21/25 09:30 05/21/25 11:48 Lactated Ringer's 1000 Ml Bag IV 05/21/25 10:30 Infused .Q1H1M PRASANNA Infusion Magnesium Sulfate 2 gm in 50 mls @ 50 mls/hr 05/21/25 09:49 05/21/25 11:48 Magnesium Sulfate 2gm/50ml Premix IV 05/21/25 10:48 Infused ONCE ONE Infusion Iopamidol 80 ml 05/21/25 10:25 05/21/25 10:27 Iopamidol-370 (76%);100ml Bottle IV 05/21/25 10:26 80 ml ONCE ONE Administration Methylprednisolone Sodium Succinate 125 mg 05/21/25 09:49 05/21/25 10:10 Methylprednisolone Sod Succ 125mg Vial IV 05/21/25 09:50 125 mg ONCE ONE Administration Morphine Sulfate 4 mg 05/21/25 09:45 05/21/25 10:03 Morphine 4mg/Ml Syringe IV 05/21/25 09:46 4 mg ONCE ONE Administration Sodium Chloride 50 ml 05/21/25 10:25 05/21/25 10:27 0.9 % Sodium Chloride 50 Ml Vial IV 05/21/25 10:26 50 ml ONCE ONE Administration Sodium Chloride 10 ml 05/21/25 10:25 05/21/25 10:27 Sodium Chloride 0.9% 10ml Syr (Rad Only) IV 05/21/25 10:26 10 ml ONCE ONE Administration ORDERS Category Date Time Status CT angio chest - dissection Stat Cat Scan 05/21/25 09:30 Taken POCUS Point of Care (ER Only) Stat Exams 05/21/25 09:32 Completed BNP [NT Pro Brain Natriuretic Pep.] Stat Lab 05/21/25 09:25 Completed CBC w/Auto Diff [Complete Blood Count Auto Diff] Stat Lab 05/21/25 09:25 Completed CMP [Comprehensive Metabolic Panel] Stat Lab 05/21/25 09:25 Completed D-Dimer Stat Lab 05/21/25 09:25 Completed HIV Combo Stat Lab 05/21/25 09:25 Completed Hepatitis C Ab Qual. W/ RFX Stat Lab 05/21/25 09:25 Completed Lipase Stat Lab 05/21/25 09:25 Completed Trop I [Troponin I] Stat Lab 05/21/25 09:25 Completed Troponin I Q3H Lab 05/21/25 12:45 Ordered Troponin I Q3H Lab 05/21/25 15:45 Ordered Venous Blood Gas Stat RT 05/21/25 09:33 Completed ECG Data Tracing #1: Attestation: I reviewed this ECG and interpreted as documented below: ECG Narrative: Ventricular rate of 83 left axis deviation and right bundle branch block significant pulmonary strain pattern no acute ischemic changes noted Tracing #2: Attestation: I reviewed this ECG and interpreted as documented below: ECG Narrative: Ventricular rate of 82 sinus rhythm left axis deviation right bundle branch block with pulmonary strain pattern no acute ischemic changes noted and specifically no dynamic ischemic changes noted MDM Narrative Medical Decision Narrative: 69-year-old with above history and physical chest pain radiating to her back is concerning for possible aortic dissection we will proceed with a CT angio of her chest dissection protocol. EKG x 2 given persistent chest pain demonstrated a right bundle branch block without any obvious STEMI or acute ischemic changes noted. Pulm embolism remains on the differential as there is acute coronary syndrome pancreatitis esophagitis etc. Patient was given fentanyl with some improvement prehospital will administer morphine as she continues to have chest discomfort. She did not have any relief with nitroglycerin but no other symptoms or highly concerning at the moment for acute coronary syndrome therefore not aggressively escalate nitroglycerin at the moment. Troponin and remainder of workup is pending. Patient's blood gas demonstrates acute hypercarbic respiratory failure with a pH less than 7.3 and a pCO2 that is elevated qualitatively. Will initiate the patient on BiPAP she does have some signs and symptoms of a COPD exacerbation which may be contributory to her symptoms today. Therefore nebs steroids magnesium and BiPAP will be initiated. Patient will need to be admitted for further evaluation and management regardless of the remainder of the workup. Reassessment 1156 labs unremarkable troponin less than 1 CT PE/dissection protocol was negative for dissection and pulmonary embolism no acute interpretation as well as radiology read. Patient has no alternative explanation for her chest discomfort aside from COPD exacerbation/hypercapnic respiratory failure. She was significantly improved after BiPAP and medications for symptom control. She remained somewhat somnolent likely secondary to opiates in addition to hypercapnia therefore remain on BiPAP for now. She was admitted accepted by [facility] with hospital medicine no other acute cardiopulmonary emergency identified.
[2025-05-21 10:00] LABS: NT Pro Brain Natriuretic Pep. 1020 pg/mL (0-125)
[2025-05-21 10:02] LABS: Troponin I < 0.01 ng/ml (0.00-0.034)
[2025-05-21] MEDS: LACTATED RINGERS 1000ML 1,000 ML 999 ML IV (10:02)
[2025-05-21] MEDS: MORPHINE 4MG/ML SYRINGE 4 MG IV (10:03)
[2025-05-21] MEDS: METHYLPREDNISOLONE SOD SUCC 125MG VIAL 125 MG IV (10:10)
--- NOTE | 2025-05-21 10:10 | PC.NURSE ---
respiratory called for bipap
[2025-05-21] MEDS: IPRATROPIUM/ALBUTEROL 3 ML NEB IH ×3 (10:13→22:23)
[2025-05-21] MEDS: MAGNESIUM SULFATE IN WATER 2 GM/50 ML PIGGYBACK IV (10:14)
[2025-05-21] MEDS: SODIUM CHLORIDE 0.9% 10ML SYR (RAD ONLY) 10 ML IV (10:27)
[2025-05-21] MEDS: IOPAMIDOL-370 (76%);100ML BOTTLE 80 ML IV (10:27)
[2025-05-21] MEDS: 0.9 % SODIUM CHLORIDE 50 ML VIAL IV (10:27)
[2025-05-21 10:58] LABS: Hepatitis C Ab Qual. W/ RFX NEGATIVE (Negative)
--- NOTE | 2025-05-21 12:09 | P.HP_ITS ---
<Statement entered by Jordy Akers MD - 05/21/25 19:10> Rounded on patient after nurse practitioner. Personally examined and interviewed patient. Agree with exam findings and care plan as documented. History of Present Illness *Admission Date: 05/21/25 *Reason for visit:: chest pain *History of present illness: Ms. Yeh is a 69-year-old female who presented to the emergency room today via EMS due to chest pain. Patient reports the chest pain is at the center of her chest, radiates to her back, is a 10/10 constant pain. Patient took 2 nitroglycerin tablets that reduce the pain to 8/10. She was given 1 nitro, aspirin 324 mg, fentanyl 25 mcg, and Zofran 4 mg and route to the hospital. Patient at baseline wears 3 L O2 nasal cannula. Upon arrival to the emergency department she rated the pain 5/10. Patient has a primary medical history of stage IV lung cancer with mets to the brain, currently in remission, COPD, tobacco use disorder, HTN, HLD, CAD, anxiety, and GERD. She denied shortness of breath, nausea, vomiting, diarrhea, abdominal pain, urinary symptoms, fever, cough, congestion. EKG was obtained by EMS which showed right BBB without ischemic changes. Workup in the emergency department was significant for VBG pH of 7.21, pCO2 89.4, lactic 1.8. WBC of 10.7, no anemia noted, BUN 21 with a creatinine of 1.00. BNP of 1020. Initial troponin less than 0.01. Chest CTA obtained which shows no evidence of PE or aortic dissection. Cardiomyopathy noted, left lobectomy noted. Previously described soft tissue mass in the left hemithorax is fluid density, and likely represents a chronic left pleural effusion. [facility] Disclaimer: The information contained in this section may have been updated after the patient was seen, as this information can be updated by other users. Medical History (Updated 05/21/25 @ 15:22 by KARL Hernandez) COPD (chronic obstructive pulmonary disease) with emphysema History of colon polyps Allergic rhinitis Laryngeal stenosis Vocal cord paralysis Dysphagia Dyspnea on exertion COPD mixed type History of lung or bronchial cancer Smoking greater than 30 pack years Hoarseness of voice Acute respiratory failure with hypoxia History of transient ischemic attack (TIA) History of heart attack Lung cancer Surgical History H/O cataract removal with insertion of prosthetic lens History of colonoscopy History of adrenal surgery History of brain surgery History of abdominal surgery History of appendectomy History of lung surgery Family History Other Family history of cancer Family history of myocardial infarction Social History Smoking Status: Current every day smoker tobacco type: cigarettes packs per day: 1 alcohol intake: current substance use type: denies use and other current occupational status: retired Travel in the last 8 weeks?: None household members: spouse housing: house current occupational exposures/hazards: No caffeine: Yes Have you lived/traveled outside [place] in past 30 days?: No Contact w/someone who lives/traveled outside [place] past 30 days?: No Exposure to someone with infectious disease in past 14 days?: No Do you have a fever (greater than 100.4 F or 38 C)?: No Have you tested positive for COVID-19?: No Exposed to someone with COVID-19 in past 14 days?: No Do you have a sore throat?: No Do you have a cough?: No Do you have any weakness?: No Do you have any diarrhea?: No Are you experiencing any unusual bleeding?: No Do you have any muscle aches/pain?: No Do you have any abdominal pain?: No Are you experiencing loss of taste or smell?: No Other Medical History Have you received the Flu Vaccine for this season: No Have you received the Pneumonia Vaccine: Yes Review of Systems Constitutional Constitutional: Denies chills, Denies fever(s) and Reports weakness Eyes Eyes: Denies blind spots and Denies blurry vision ENT Ears, Nose, Mouth, and Throat: Denies sinus pain, Denies sinus pressure and Denies sore throat *Cardiovascular Cardiovascular: Reports chest pain, Reports chest pain at rest, Reports dyspnea, Denies leg edema, Denies lightheadedness, Denies palpitations and Denies pedal edema *Respiratory Respiratory: Denies chest congestion, Denies cough, Reports dyspnea and Denies wheezing *Gastrointestinal Gastrointestinal: Denies nausea and Denies vomiting *Genitourinary Genitourinary: Denies dysuria, Denies urinary incontinence, Denies urinary hesitancy and Denies urinary urgency *Neurologic Neurologic: Reports weakness Endocrine Endocrine: Denies palpitations Allergic/Immunologic Allergic/Immunologic: Denies wheezing Meds Home Medications and Allergies Home Medications ?Medication ?Instructions ?Recorded ?Confirmed ?Type atorvastatin 40 mg tablet 40 mg PO DAILY 09/21/1804/24 History lisinopril 20 1 tab PO DAILY 09/21/1804/24 History mg-hydrochlorothiazide 25 mg tablet (Zestoretic) omeprazole 20 mg capsule,delayed 20 mg PO DAILY 05/21/25 History release aspirin 325 mg tablet,delayed 325 mg PO DAILY 12/02/20 05/21/25 History release alprazolam 0.5 mg tablet (Xanax) 0.5 mg PO HSP PRN Sle ep 09/22/22 05/21/25 History azelastine 137 mcg (0.1 %) nasal 2 spray intranasal HS 90 days #30 05/08/25 05/21/25 Rx spray mL fluticasone propionate 50 2 spray intranasal DAILY 90 days 05/08/25 05/21/25 Rx mcg/actuation nasal #16 grams spray,suspension (Flonase Allergy Relief) acetylcysteine 500 mg capsule 500 mg PO DAILYP PRN Cou gh 05/21/25 05/21/25 History albuterol sulfate 90 mcg/actuation 2 inh inhalation QI DP PRN 05/21/25 05/21/25 History aerosol inhaler (Ventolin HFA) shortness of breath or wheezing fluticasone fur. 100 mcg-umeclid 1 inh inhalation CHETAN Y 05/21/25 05/21/25 History 62.5 mcg-vilant 25 mcg inhalat.powder (Trelegy Ellipta) ipratropium 0.5 mg-albuterol 3 mg 3 ml inhalation QIDP PRN shortness 05/21/25 05/21/25 History (2.5 mg base)/3 mL nebulization of breath or wheezing soln montelukast 10 mg tablet 10 mg PO HS 05/21/25 5 History prednisone 2.5 mg tablet 2.5 mg PO DAILY 05/21/25 History New Prescriptions to Start Prescriptions: Allergies Allergy/AdvReac Type Severity Reaction Status Date / Time pembrolizumab (From Keytruda) Allergy Severe Difficulty Verified 05/08/25 15:13 Breathing diltiazem (DILTIAZEM) Allergy Unknown UNKNOWN Verified 05/08/25 15:13 levofloxacin (From LEVAQUIN) Allergy Unknown NA-NAUSEA/V Verified 05/08/25 15:13 OMITING nadolol (From CORGARD) Allergy Unknown UNKNOWN Verified 05/08/25 15:13 oxycodone (From ROXICET) Allergy Unknown UNKNOWN Verified 05/08/25 15:13 umeclidinium (From Anoro AdvReac Intermediate Chest Pain Verified 05/08/25 15:13 Ellipta) vilanterol (From Anoro AdvReac Intermediate Chest Pain Verified 05/08/25 15:13 Ellipta) morphine AdvReac Hallucinati Verified 05/08/25 15:13 ng olodaterol (From Stiolto AdvReac Chest Pain Verified 05/08/25 15:13 Respimat) tiotropium (From Stiolto AdvReac Chest Pain Verified 05/08/25 15:13 Respimat) Exam Data for Last 24 hours Vital signs and Labs for Last 24 Hours: Temp Pulse Resp BP Pulse Ox O2 Del Method O2 Flow Rate 97.9 F 69 20 132/65 94 L BiPAP 3 05/21/25 09:23 05/21/25 12:00 05/21/25 12:00 05/21/25 12:00 05/21/25 12:00 05/21/25 11:30 05/21/25 09:23 FiO2 50 05/21/25 10:42 Laboratory Results - last 24 hr 05/21/25 09:25: WBC 10.7, RBC 4.27, Hgb 12.6, Hct 40.8, MCV 95.6, MCH 29.5, MCHC 30.9 L, RDW 16.0, Plt Count 192, MPV 10.7 H, Neut % (Auto) 65.2, Lymph % (Auto) 23.5, [place] % (Auto) 8.4, Eos % (Auto) 2.0, Baso % (Auto) 0.6, Neut # (Auto) 7.0, Lymph # (Auto) 2.5, [place] # (Auto) 0.9, Eos # (Auto) 0.2, Baso # (Auto) 0.1, D- Dimer 0.54 H, Sodium 137, Potassium 3.8, Chloride 95 L, Carbon Dioxide 36 H, Anion Gap 9.8, BUN 21 H, Creatinine 1.00, Estimated Creat Clear 54, Estimated GFR 55 L, Est GFR ( Amer) 67, Glucose 117 H, Calcium 9.2, Total Bilirubin 0.6, AST 29, ALT 16, Alkaline Phosphatase 92, Troponin I < 0.01, NT-Pro-B Natriuret Pep 1020 H, Total Protein 8.1, Albumin 4.3, Globulin 3.8 H, Albumin/Globulin Ratio 1.1, Lipase 150, HCV Ab TANGELA w/Rflx PCR Qn Negative, HIV Ag/Ab Combo Qual Negative 05/21/25 09:33: VBG pH 7.21 L, VBG pCO2 89.4 H, VBG pO2 40.1 H, VBG HCO3 35.2 H, VBG Total CO2 37.9 H, VBG O2 Saturation 68.5, VBG Base Excess 7.4 H, VBG Lactic Acid 1.8 Temp Pulse Resp BP Pulse Ox 98.3 F 93 H 22 105/59 L 100 08/21/22 17:21 08/21/22 19:11 08/21/22 18:31 08/21/22 19:00 08/21/22 19:00 Laboratory Results - last 24 hr 08/21/22 17:56: VBG pH 7.33, VBG pCO2 51.8 H, VBG pO2 208.5 H, VBG HCO3 26.4, VBG Total CO2 28.0 H, VBG O2 Saturation 99.0 H, VBG Base Excess 0.4 08/21/22 18:18: WBC 18.5 H, RBC 4.27, Hgb 12.4, Hct 40.9, MCV 95.8, MCH 29.0, MCHC 30.3 L, RDW 15.5, Plt Count 206, MPV 8.5, Neut % (Auto) 75.9, Lymph % (Auto) 15.8, [place] % (Auto) 6.8, Eos % (Auto) 1.0, Baso % (Auto) 0.5, Neut # (Auto) 14.0 H, Lymph # (Auto) 2.9, [place] # (Auto) 1.3 H, Eos # (Auto) 0.2, Baso # (Auto) 0.1, Total Counted 100, Neutrophils % (Manual) 80 H, Lymphocytes % (Manual) 20, Platelet Estimate Normal, Stomatocytes 1+ 08/21/22 18:18: Lactate 2.0 08/21/22 18:20: SARS-CoV-2 (PCR) Not detected, Influenza A Untype (PCR) Not detected, Influenza Type B (PCR) Not detected 08/21/22 18:28: Sodium 139, Potassium 4.5, Chloride 97 L, Carbon Dioxide 35 H, Anion Gap 11.5, BUN 25 H, Creatinine 1.20 H, Estimated Creat Clear 49, Estimated GFR 45 L, Est GFR ( Amer) 54 L, Glucose 114 H, Calcium 9.6, Total Bilirubin 0.7, AST 24, ALT 16, Alkaline Phosphatase 128 H, Troponin I < 0.01, Total Protein 8.1, Albumin 4.6, Globulin 3.5 H, Albumin/Globulin Ratio 1.3 I & O for Last 24 hours: Intake & Output 05/18/25 05/19/25 05/20/25 05/21/25 23:59 23:59 23:59 23:59 Intake Total 1050 / 1050 Balance 1050 / 1050 Weight 64.864 kg Intake & Output 08/18/22 08/19/22 08/20/22 08/21/22 23:59 23:59 23:59 23:59 Weight 67.132 kg Constitutional Constitutional: mild distress, average body habitus, chronically ill appearing and cooperative *Routine HEENT Exam Head: Present normocephalic Eye: Present EOMI ENT: Present mucous membranes moist *Routine Neck Exam Neck: Present supple *Routine Respiratory Exam Respiratory: Present prolonged expiratory phase, respiratory distress and diminished air movement Comments: On BiPAP *Routine Cardiovascular Exam Cardiovascular: Present RRR, Normal S1 and Normal S2 *Routine Abdominal Exam Abdominal: Present soft and normoactive bowel sounds; Absent tenderness or distended *Routine Rectal Exam Rectal:: deferred *Routine Genitalia Exam Genitalia:: deferred *Routine Extremities Exam Extremities: Absent cyanosis, clubbing or edema *Routine Skin Exam Skin: Present intact, dry and warm; Absent rash *Routine Neurological Exam Neurological: Present alert, oriented X3 and normal speech Assessment and Plan *Assessment and plan (1) Acute hypercapnic respiratory failure: Status: Acute Category: Medical Code(s): J96.02 - Acute respiratory failure with hypercapnia (2) Acute exacerbation of chronic obstructive pulmonary disease: Status: Acute Category: Medical Code(s): J44.1 - Chronic obstructive pulmonary disease with (acute) exacerbation (3) Chest pain: Status: Acute Category: Medical Code(s): R07.9 - Chest pain, unspecified (4) NSTEMI (non-ST elevated myocardial infarction): Status: Acute Category: Medical Code(s): I21.4 - Non-ST elevation (NSTEMI) myocardial infarction (5) Stage 4 lung cancer: Status: Acute Category: Medical Code(s): C34.90 - Malignant neoplasm of unspecified part of unspecified bronchus or lung (6) Anxiety disorder: Status: Acute Category: Medical Code(s): F41.9 - Anxiety disorder, unspecified (7) Hypertension: Status: Acute Category: Medical Code(s): I10 - Essential (primary) hypertension (8) Hyperlipidemia: Status: Acute Category: Medical Code(s): E78.5 - Hyperlipidemia, unspecified (9) Tobacco use disorder: Status: Acute Category: Medical Code(s): F17.200 - Nicotine dependence, unspecified, uncomplicated Plan Ms. Yeh is a 69-year-old female with a significant medical history of stage IV lung cancer with mets to the brain, posttreatment in remission, supplemental O2 use of 3 L nasal cannula, COPD, HTN, HLD, tobacco use. She presented to the emergency department with complaints of 10/10 chest pain. Was admitted to the stepdown unit for acute respiratory failure with hypoxia and hypercapnia, acute exacerbation of COPD, and NSTEMI. Hospital medicine was consulted for admission, I agreed to admit the patient. Plan of care as follows: #Acute respiratory failure with hypoxia and hypercapnia #Acute COPD exacerbation #History of stage IV lung cancer with brain mets, in remission ?Patient has history of stage IV lung cancer with mets to the brain, currently in remission. Has had previous left lobectomy. Follows with pulmonology outpatient for COPD. Chest CTA shows left lobe postop changes and chronic left pleural effusion. Patient currently wears 3 L nasal cannula. Initial VBG shows pH 7.21 with elevated CO2, patient was placed on BiPAP?repeat VBG shows worsening respiratory acidosis with a pH of 7.14 and continued elevated CO2. Pulmonology consulted for further respiratory recommendations. Patient mentating appropriately although drowsy at this time. Patient denies cough, congestion, recent respiratory illness. Respiratory panel shows negative for viral illness. Patient received neb treatments, steroids, magnesium in the emergency department. Doxycycline 100 mg twice daily initiated by pulmonology. #NSTEMI #HTN/HLD ?Patient initial complaint was chest pain, initially 10/10 patient received multiple rounds of sublingual nitroglycerin, morphine, fentanyl?now rating chest pain /10. Initial troponin negative less than 0.01, repeat 3-hour troponin elevated at 0.59, continuing to trend. Cardiology consulted for further recommendations. Patient had echo 04/30/2025 which showed normal LV systolic function, severe RV dilation, markedly elevated RVSP greater than 60 mmHg. Limited echo ordered and pending. ?Discussed this case with cardiology who recommend stabilizing on BiPAP and LHC tomorrow. Patient and family are agreeable. ?Patient states she does have a history of LHC without JUAN. Not currently on anticoagulation. Initiated therapeutic Lovenox and aspirin 81 mg daily. Patient received aspirin 324 mg in the ED. ?EKG x 2 given persistent chest pain demonstrated sinus rhythm with RBBB without evidence of STEMI or acute ischemic changes. Patient placed on continuous cardiac telemetry in stepdown unit for continued close monitoring. ?Continuing cardiac medication lisinopril 20 mg?HCTZ 25 mg daily, atorvastatin 40 mg daily, #Tobacco use disorder: Patient states that she is a current everyday smoker, nicotine patches ordered. Counseled on smoking cessation. Full code Bed rest N.p.o. VTE?Lovenox
--- NOTE | 2025-05-21 12:10 | PC.NURSE ---
Called report to ASHLEY Alexander in the ICU.
--- NOTE | 2025-05-21 12:26 | [facility].PHAINT1 ---
Pharmacy Intervention Comments: MEDICATION RECONCILIATION COMPLETED ON PATIENT USING EXTERNAL FILL HISTORY FROM PHARMACY AND LIST FROM PULMONOLOGY OFFICE. -JENNIFER PAREDESD
--- NOTE | 2025-05-21 12:40 | PC.NURSE ---
patient arrived to room 261 via stretcher @[id number]
[2025-05-21 12:56] LABS: Hemoglobin A1C 5.7 % (4.0-6.0)
[2025-05-21 13:15] LABS: VBG HCO3 30.5 mmol/L (23-30); VBG PO2 34.2 mmol/L (28-40)
[2025-05-21 13:17] LABS: Thyroid Stimulating Hormone 2.57 uIU/mL (0.465-4.68)
[2025-05-21 13:21] LABS: Lactate Venous 2.4 mmol/L (0.4-2.0); VBG PCO2 92.6 mmol/L (35-51); VBG PH 7.14 mmol/L (7.31-7.41)
[2025-05-21 13:45] LABS: Troponin I 0.59 ng/ml (0.00-0.034)
[2025-05-21 13:52] LABS: Coronavirus 19, PCR Not Detected (NotDetected); Influenza A, PCR Not Detected (NotDetected); Influenza B, PCR Not Detected (NotDetected)
--- NOTE | 2025-05-21 14:06 | CA_ITS ---
APPROVED REPORT EXAM: Limited 2D Echocardiogram Building Equipment Operator: Alix Chairez RVT Ht: 5 ft 1 in Wt: 142lbs BSA: 1.63 BP: 128/68 mmHg Indications: EF CHECK,CHEST PAIN M-Mode Dimensions RVDd 3.42 cm (0.9-2.6) LVDd 4.67 cm (3.5-5.7) LVDs 3.12 cm (3.5-5.7) IVSd 1.14 cm (0.6-1.1) PWd 0.61 cm (0.6-1.1) EF (Teich) 61.80% FS 33.20% EDV (Teich) 100.80 mL ESV (Teich) 38.50 mL Tricuspid Valve TR P. Velocity 438.00 cm/s RAP Estimate 8.00 mmHg RVSP 84.90 mmHg Other Information Study Quality: Technically Difficult Conclusion This is a limited TTE to evaluate for biventricular systolic function. Limited windows are obtained. The left ventricle is normal in size. There is increased LV wall thickness. There is normal global LV systolic function. LVEF is 60%. The right ventricle is severely dilated. There is severe reduction in RV systolic function. Moderate TR is present. Mild MR is present. Markedly elevated RVSP > 60 mmHg. Electronically signed by : Eden Varghese MD 05/21/2025 21:00:16
--- NOTE | 2025-05-21 14:07 | EXP.PULM.CON ---
History of Present Illness History of present illness: Ms. Yeh is a 69-year-old female greater than [id number] smoking history prior history of lung cancer chemoradiation following send Kash Goddard at home Trelegy 100 inhaler presented with worsening respiratory distress and pulmonary was called for further evaluation and management. Patient admits she is at herself up until this morning she woke up complaining of chest tightness and pain that relieved after 2 doses of sublingual nitroglycerin. [facility] Disclaimer: The information contained in this section may have been updated after the patient was seen, as this information can be updated by other users. Medical History (Updated 05/21/25 @ 09:52 by Alla Daigle MD) COPD (chronic obstructive pulmonary disease) with emphysema History of colon polyps Allergic rhinitis Laryngeal stenosis Vocal cord paralysis Dysphagia Dyspnea on exertion COPD mixed type History of lung or bronchial cancer Smoking greater than 30 pack years Hoarseness of voice Acute respiratory failure with hypoxia History of transient ischemic attack (TIA) History of heart attack Lung cancer Surgical History H/O cataract removal with insertion of prosthetic lens History of colonoscopy History of adrenal surgery History of brain surgery History of abdominal surgery History of appendectomy History of lung surgery Family History Other Family history of cancer Family history of myocardial infarction Social History Smoking Status: Current every day smoker tobacco type: cigarettes packs per day: 1 alcohol intake: current substance use type: denies use and other current occupational status: retired Travel in the last 8 weeks?: None household members: spouse housing: house current occupational exposures/hazards: No caffeine: Yes Have you lived/traveled outside US in past 30 days?: No Contact w/someone who lives/traveled outside US past 30 days?: No Exposure to someone with infectious disease in past 14 days?: No Do you have a fever (greater than 100.4 F or 38 C)?: No Have you tested positive for COVID-19?: No Exposed to someone with COVID-19 in past 14 days?: No Do you have a sore throat?: No Do you have a cough?: No Do you have any weakness?: No Do you have any diarrhea?: No Are you experiencing any unusual bleeding?: No Do you have any muscle aches/pain?: No Do you have any abdominal pain?: No Are you experiencing loss of taste or smell?: No Review of Systems Constitutional Constitutional: Reports anorexia, Reports body ache(s) and Reports fatigue Eyes Eyes: Denies eye discharge, Denies dry eyes, Denies irritation and Denies itchy eyes ENT Ears, Nose, Mouth, and Throat: Denies epistaxis, Denies facial pain, Denies lip swelling and Denies throat swelling *Cardiovascular Cardiovascular: Reports chest pain at rest, Reports dyspnea and Reports dyspnea on exertion *Respiratory Respiratory: Denies change in phlegm color, Reports chest congestion, Reports cough, Reports dyspnea, Reports dyspnea on exertion, Denies excessive phlegm production, Denies hemoptysis, Denies pain on inspiration, Denies pain with cough and Denies wheezing *Gastrointestinal Gastrointestinal: Denies abdominal pain, Denies belching and Denies cramping *Musculoskeletal Musculoskeletal: Reports back pain, Reports myalgias and Reports other (No small joint swelling or Pain) Psychiatric Psychiatric: Denies homicidal ideation and Denies suicidal ideation Endocrine Endocrine: Reports fatigue and Denies heat intolerance Hematologic/Lymphatic Hematologic/Lymphatic: Denies easy bleeding and Denies lymphadenopathy Allergic/Immunologic Allergic/Immunologic: Denies itchy eyes, Denies lip swelling, Denies throat swelling and Denies wheezing Pulmonology Exam Inpatient Vital signs and Labs for Last 24 Hours: Temp Pulse Resp BP Pulse Ox O2 Del Method O2 Flow Rate 97.3 F L 84 16 123/50 L 93 L Nasal Cannula 4 05/21/25 12:49 05/21/25 12:49 05/21/25 12:49 05/21/25 12:49 05/21/25 12:49 05/21/25 13:00 05/21/25 13:00 FiO2 50 05/21/25 10:42 Laboratory Results - last 24 hr 05/21/25 09:25: WBC 10.7, RBC 4.27, Hgb 12.6, Hct 40.8, MCV 95.6, MCH 29.5, MCHC 30.9 L, RDW 16.0, Plt Count 192, MPV 10.7 H, Neut % (Auto) 65.2, Lymph % (Auto) 23.5, [place] % (Auto) 8.4, Eos % (Auto) 2.0, Baso % (Auto) 0.6, Neut # (Auto) 7.0, Lymph # (Auto) 2.5, [place] # (Auto) 0.9, Eos # (Auto) 0.2, Baso # (Auto) 0.1, D-Dimer 0.54 H, Sodium 137, Potassium 3.8, Chloride 95 L, Carbon Dioxide 36 H, Anion Gap 9.8, BUN 21 H, Creatinine 1.00, Estimated Creat Clear 54, Estimated GFR 55 L, Est GFR ( Amer) 67, Glucose 117 H, Hemoglobin A1c 5.7, Calcium 9.2, Total Bilirubin 0.6, AST 29, ALT 16, Alkaline Phosphatase 92, Troponin I < 0.01, NT-Pro-B Natriuret Pep 1020 H, Total Protein 8.1, Albumin 4.3, Globulin 3.8 H, Albumin/Globulin Ratio 1.1, Lipase 150, TSH 2.57, HCV Ab TANGELA w/Rflx PCR Qn Negative, HIV Ag/Ab Combo Qual Negative 05/21/25 09:33: VBG pH 7.21 L, VBG pCO2 89.4 H, VBG pO2 40.1 H, VBG HCO3 35.2 H, VBG Total CO2 37.9 H, VBG O2 Saturation 68.5, VBG Base Excess 7.4 H, VBG Lactic Acid 1.8 05/21/25 13:00: Troponin I 0.59 H 05/21/25 13:18: VBG pH 7.14 L, VBG pCO2 92.6 H, VBG pO2 34.2, VBG HCO3 30.5 H, VBG Total CO2 33.4 H, VBG O2 Saturation 55.8, VBG Base Excess 1.5, VBG Lactic Acid 2.4 H I & O for Labs for Last 24 Hours: Intake & Output 05/18/25 05/19/25 05/20/25 05/21/25 23:59 23:59 23:59 23:59 Intake Total 1050 / 1050 Output Total 250 / 250 Balance 800 / 800 Weight 142 lb 4 oz Microbiology Reports for the Last 24 Hours: Microbiology 08/23/22 15:10 Sputum - Expectorated Sputum Gram Stain - Final 08/23/22 15:10 Sputum - Expectorated Sputum Sputum Culture - Preliminary Constitutional: Present severe distress Head: Present normocephalic and atraumatic ENT: Present normal exam, normal oropharynx and mucous membranes moist Comment:: No stridor Neck: Present normal inspection and full ROM Respiratory: Present prolonged expiratory phase, respiratory distress, wheezes, diminished air movement and able to speak in complete sentences; Absent rhonchi, stridor or normal respiratory effort Cardiac: Present S1/S2, Tachycardia and radial pulses present GI: Present soft and distention; Absent tenderness or guarding Rectal (female): Present deferred (female): Present deferred Skin: Present intact; Absent cyanosis or jaundice Neuro: Present alert, awake and oriented x 3 Extremities: Present normal inspection; Absent clubbing or cyanosis Psychiatric: Present normal affect and cooperative Meds Home Medications and Allergies Home Medications ?Medication ?Instructions ?Recorded ?Confirmed ?Type atorvastatin 40 mg tablet 40 mg PO DAILY 09/21/18 05/21/25 History lisinopril 20 1 tab PO DAILY 09/21/18 05/21/25 History mg-hydrochlorothiazide 25 mg tablet (Zestoretic) omeprazole 20 mg capsule,delayed 20 mg PO DAILY 09/21/18 05/21/25 History release aspirin 325 mg tablet,delayed 325 mg PO DAILY 12/02/20 05/21/25 History release alprazolam 0.5 mg tablet (Xanax) 0.5 mg PO HSP PRN Sleep 09/22/22 05/21/25 History azelastine 137 mcg (0.1 %) nasal 2 spray intranasal HS 90 days #30 05/08/25 05/21/25 Rx spray mL fluticasone propionate 50 2 spray intranasal DAILY 90 days 05/08/25 05/21/25 Rx mcg/actuation nasal #16 grams spray,suspension (Flonase Allergy Relief) acetylcysteine 500 mg capsule 500 mg PO DAILYP PRN Cough 05/21/25 05/21/25 History albuterol sulfate 90 mcg/actuation 2 inh inhalation QIDP PRN 05/21/25 05/21/25 History aerosol inhaler (Ventolin HFA) shortness of breath or wheezing fluticasone fur. 100 mcg-umeclid 1 inh inhalation DAILY 05/21/25 05/21/25 History 62.5 mcg-vilant 25 mcg inhalat.powder (Trelegy Ellipta) ipratropium 0.5 mg-albuterol 3 mg 3 ml inhalation QIDP PRN shortness 05/21/25 05/21/25 History (2.5 mg base)/3 mL nebulization of breath or wheezing soln montelukast 10 mg tablet 10 mg PO HS 05/21/25 05/21/25 History prednisone 2.5 mg tablet 2.5 mg PO DAILY 05/21/25 05/21/25 History New Prescriptions to Start Prescriptions: Allergies Allergy/AdvReac Type Severity Reaction Status Date / Time pembrolizumab (From Keytruda) Allergy Severe Difficulty Verified 05/08/25 15:13 Breathing diltiazem (DILTIAZEM) Allergy Unknown UNKNOWN Verified 05/08/25 15:13 levofloxacin (From LEVAQUIN) Allergy Unknown NA-NAUSEA/V Verified 05/08/25 15:13 OMITING nadolol (From CORGARD) Allergy Unknown UNKNOWN Verified 05/08/25 15:13 oxycodone (From ROXICET) Allergy Unknown UNKNOWN Verified 05/08/25 15:13 umeclidinium (From Anoro AdvReac Intermediate Chest Pain Verified 05/08/25 15:13 Ellipta) vilanterol (From Anoro AdvReac Intermediate Chest Pain Verified 05/08/25 15:13 Ellipta) morphine AdvReac Hallucinati Verified 05/08/25 15:13 ng olodaterol (From Stiolto AdvReac Chest Pain Verified 05/08/25 15:13 Respimat) tiotropium (From Stiolto AdvReac Chest Pain Verified 05/08/25 15:13 Respimat) Results Laboratory Findings 05/21/25 09:25 05/21/25 09:25 PT/INR, D-dimer D-Dimer 0.54 ug/mL (0.0-0.5) H 05/21/25 09:25 Abnormal lab findings: Abnormal Labs 05/21/25 05/21/25 05/21/25 09:25 09:33 13:00 MCHC 30.9 L MPV 10.7 H D-Dimer 0.54 H VBG pH 7.21 L VBG pCO2 89.4 H VBG pO2 40.1 H VBG HCO3 35.2 H VBG Total CO2 37.9 H VBG Base Excess 7.4 H VBG Lactic Acid Chloride 95 L Carbon Dioxide 36 H BUN 21 H Estimated GFR 55 L Glucose 117 H Troponin I 0.59 H NT-Pro-B Natriuret Pep 1020 H Globulin 3.8 H 05/21/25 13:18 MCHC MPV D-Dimer VBG pH 7.14 L VBG pCO2 92.6 H VBG pO2 VBG HCO3 30.5 H VBG Total CO2 33.4 H VBG Base Excess VBG Lactic Acid 2.4 H Chloride Carbon Dioxide BUN Estimated GFR Glucose Troponin I NT-Pro-B Natriuret Pep Globulin Assessment and Plan *Assessment and plan (1) Acute exacerbation of chronic obstructive pulmonary disease: Status: Acute Category: Medical Code(s): J44.1 - Chronic obstructive pulmonary disease with (acute) exacerbation (2) Acute hypercapnic respiratory failure: Status: Acute Category: Medical Code(s): J96.02 - Acute respiratory failure with hypercapnia Plan Ms. Yeh is a 69-year-old female greater than [id number] smoking history prior history of lung cancer chemoradiation following send Kash Goddard at home Trelegy 100 inhaler presented with worsening respiratory distress and pulmonary was called for further evaluation and management. Patient admits she is at herself up until this morning she woke up complaining of chest tightness and pain that relieved after 2 doses of sublingual nitroglycerin. CT chest upon admission no dense consolidative/airspace changes. No pulmonary embolism. Afebrile. Hemodynamically stable. No evidence of leukocytosis. Comprehensive respiratory viral PCR within normal limits. Venous blood gas upon admission showed hypercarbic respiratory failure that got worse on her subsequent blood gas with a pCO2 of 92.6 and a pH of 7.136. Plan: DuoNebs every 4 hours along with Pulmicort every 12 schedule Methylprednisolone 40 mg IV daily Continue BiPAP therapy at 22/10 and a rate of 20. Follow with repeat venous blood gas in 2 hours. Doxycycline 100 mg twice daily x 5 days Cardiology evaluation for her concerning chest tightness/chest pain that improved with sublingual nitroglycerin.
[2025-05-21] MEDS: NICOTINE 21MG/24HR PATCH 21 MG TD (14:52)
[2025-05-21] MEDS: METHYLPREDNISOLONE SOD SUCC 40MG VIAL 40 MG IV (14:52)
[2025-05-21] MEDS: DOXYCYCLINE HYCLATE 100 MG in 0.9 % SODIUM CHLORIDE 250 ML 166.67 MG IV (14:53)
[2025-05-21 15:17] LABS: VBG HCO3 30.1 mmol/L (23-30); VBG PH 7.24 mmol/L (7.31-7.41); VBG PO2 54.7 mmol/L (28-40)
--- NOTE | 2025-05-21 15:17 | EXP.CARD.CON ---
History of Present Illness History of Present Illness Consult date: 05/21/25 Requesting physician: Nuria Irby Consult reason: chest pain and shortness of breath Chief complaint: SOA, chest pain Additional Medical History:: 1. COPD with history of tobacco use 2. CAD with prior CO/stent, 1993 A. History of follow-up cardiac cath approximately 2017 with no need for stenting 3. History of diabetes, currently controlled on medication 4. Hyperlipidemia History of present illness: Ms. Yeh is a 69-year-old female who presented to the emergency room today via EMS due to chest pain. Patient reports the chest pain is at the center of her chest, radiates to her back, is a 10/10 constant pain. Patient took 2 nitroglycerin tablets that reduce the pain to 8/10. She was given 1 nitro, aspirin 324 mg, fentanyl 25 mcg, and Zofran 4 mg and route to the hospital. Patient at baseline wears 3 L O2 nasal cannula. Upon arrival to the emergency department she rated the pain 5/10. Patient has a primary medical history of stage IV lung cancer with mets to the brain, currently in remission, COPD, tobacco use disorder, HTN, HLD, CAD, anxiety, and GERD. She denied shortness of breath, nausea, vomiting, diarrhea, abdominal pain, urinary symptoms, fever, cough, congestion. EKG was obtained by EMS which showed right BBB without ischemic changes. Workup in the emergency department was significant for VBG pH of 7.21, pCO2 89.4, lactic 1.8. WBC of 10.7, no anemia noted, BUN 21 with a creatinine of 1.00. BNP of 1020. Initial troponin less than 0.01. Chest CTA obtained which shows no evidence of PE or aortic dissection. Cardiomyopathy noted, left lobectomy noted. Previously described soft tissue mass in the left hemithorax is fluid density, and likely represents a chronic left pleural effusion. The above per Nuria Irby APRN for the hospitalist service Patient confirms events as noted above. also is in the room and confirms this story. Patient has a history of prior CO and stenting in 1993 with follow-up cath approximately 7 years ago with no need for stenting. He said this is the first time in a long time she is reached for nitroglycerin to treat her chest pain. Currently chest pain is down to about a 2 out of 10. pCO2 on most recent blood gases 92 with pH of 7.14. Repeat venous blood gases pending. [facility] Disclaimer: The information contained in this section may have been updated after the patient was seen, as this information can be updated by other users. Medical History (Updated 05/21/25 @ 15:22 by KARL Hernandez) COPD (chronic obstructive pulmonary disease) with emphysema History of colon polyps Allergic rhinitis Laryngeal stenosis Vocal cord paralysis Dysphagia Dyspnea on exertion COPD mixed type History of lung or bronchial cancer Smoking greater than 30 pack years Hoarseness of voice Acute respiratory failure with hypoxia History of transient ischemic attack (TIA) History of heart attack Lung cancer Surgical History H/O cataract removal with insertion of prosthetic lens History of colonoscopy History of adrenal surgery History of brain surgery History of abdominal surgery History of appendectomy History of lung surgery Family History Other Family history of cancer Family history of myocardial infarction Social History Smoking Status: Current every day smoker tobacco type: cigarettes packs per day: 1 alcohol intake: current substance use type: denies use and other current occupational status: retired Travel in the last 8 weeks?: None household members: spouse housing: house current occupational exposures/hazards: No caffeine: Yes Have you lived/traveled outside US in past 30 days?: No Contact w/someone who lives/traveled outside US past 30 days?: No Exposure to someone with infectious disease in past 14 days?: No Do you have a fever (greater than 100.4 F or 38 C)?: No Have you tested positive for COVID-19?: No Exposed to someone with COVID-19 in past 14 days?: No Do you have a sore throat?: No Do you have a cough?: No Do you have any weakness?: No Do you have any diarrhea?: No Are you experiencing any unusual bleeding?: No Do you have any muscle aches/pain?: No Do you have any abdominal pain?: No Are you experiencing loss of taste or smell?: No Review of Systems Review of Systems Review of systems:: pertinent systems reviewed and negative unless documented below *Cardiovascular Cardiovascular: Reports chest pain and Reports dyspnea *Respiratory Respiratory: Reports dyspnea Exam Data for Last 24 hours Vital signs and Labs for Last 24 Hours: Temp Pulse Resp BP Pulse Ox O2 Del Method O2 Flow Rate 97.3 F L 70 17 128/68 92 L BiPAP 4 05/21/25 12:49 05/21/25 14:01 05/21/25 14:01 05/21/25 14:01 05/21/25 14:01 05/21/25 14:01 05/21/25 13:00 FiO2 30 05/21/25 14:01 Laboratory Results - last 24 hr 05/21/25 09:25: WBC 10.7, RBC 4.27, Hgb 12.6, Hct 40.8, MCV 95.6, MCH 29.5, MCHC 30.9 L, RDW 16.0, Plt Count 192, MPV 10.7 H, Neut % (Auto) 65.2, Lymph % (Auto) 23.5, [place] % (Auto) 8.4, Eos % (Auto) 2.0, Baso % (Auto) 0.6, Neut # (Auto) 7.0, Lymph # (Auto) 2.5, [place] # (Auto) 0.9, Eos # (Auto) 0.2, Baso # (Auto) 0.1, D-Dimer 0.54 H, Sodium 137, Potassium 3.8, Chloride 95 L, Carbon Dioxide 36 H, Anion Gap 9.8, BUN 21 H, Creatinine 1.00, Estimated Creat Clear 54, Estimated GFR 55 L, Est GFR ( Amer) 67, Glucose 117 H, Hemoglobin A1c 5.7, Calcium 9.2, Total Bilirubin 0.6, AST 29, ALT 16, Alkaline Phosphatase 92, Troponin I < 0.01, NT-Pro-B Natriuret Pep 1020 H, Total Protein 8.1, Albumin 4.3, Globulin 3.8 H, Albumin/Globulin Ratio 1.1, Lipase 150, TSH 2.57, HCV Ab TANGELA w/Rflx PCR Qn Negative, HIV Ag/Ab Combo Qual Negative 05/21/25 09:33: VBG pH 7.21 L, VBG pCO2 89.4 H, VBG pO2 40.1 H, VBG HCO3 35.2 H, VBG Total CO2 37.9 H, VBG O2 Saturation 68.5, VBG Base Excess 7.4 H, VBG Lactic Acid 1.8 05/21/25 13:00: Troponin I 0.59 H 05/21/25 13:18: VBG pH 7.14 L, VBG pCO2 92.6 H, VBG pO2 34.2, VBG HCO3 30.5 H, VBG Total CO2 33.4 H, VBG O2 Saturation 55.8, VBG Base Excess 1.5, VBG Lactic Acid 2.4 H I & O for Last 24 hours: Intake & Output 05/19/25 05/20/25 05/21/25 05/22/25 11:59 11:59 11:59 11:59 Intake Total 1050 / 1050 Output Total 250 / 250 Balance 1050 / 1050 -250 / -250 Weight 143 lb 142 lb 4 oz Constitutional Constitutional: mild distress *Routine Respiratory Exam Respiratory: Present decreased breath sounds; Absent rhonchi or wheezes *Routine Cardiovascular Exam Cardiovascular: Present RRR; Absent murmur, gallop or rubs *Routine Extremities Exam Extremities: Absent edema *Routine Neurological Exam Neurological: Present alert, oriented X3 and CN II-XII intact Meds Home Medications and Allergies Home Medications ?Medication ?Instructions ?Recorded ?Confirmed ?Type atorvastatin 40 mg tablet 40 mg PO DAILY 09/21/18 05/21/25 History lisinopril 20 1 tab PO DAILY 09/21/18 05/21/25 History mg-hydrochlorothiazide 25 mg tablet (Zestoretic) omeprazole 20 mg capsule,delayed 20 mg PO DAILY 09/21/18 05/21/25 History release aspirin 325 mg tablet,delayed 325 mg PO DAILY 12/02/20 05/21/25 History release alprazolam 0.5 mg tablet (Xanax) 0.5 mg PO HSP PRN Sleep 09/22/22 05/21/25 History azelastine 137 mcg (0.1 %) nasal 2 spray intranasal HS 90 days #30 05/08/25 05/21/25 Rx spray mL fluticasone propionate 50 2 spray intranasal DAILY 90 days 05/08/25 05/21/25 Rx mcg/actuation nasal #16 grams spray,suspension (Flonase Allergy Relief) acetylcysteine 500 mg capsule 500 mg PO DAILYP PRN Cough 05/21/25 05/21/25 History albuterol sulfate 90 mcg/actuation 2 inh inhalation QIDP PRN 05/21/25 05/21/25 History aerosol inhaler (Ventolin HFA) shortness of breath or wheezing fluticasone fur. 100 mcg-umeclid 1 inh inhalation DAILY 05/21/25 05/21/25 History 62.5 mcg-vilant 25 mcg inhalat.powder (Trelegy Ellipta) ipratropium 0.5 mg-albuterol 3 mg 3 ml inhalation QIDP PRN shortness 05/21/25 05/21/25 History (2.5 mg base)/3 mL nebulization of breath or wheezing soln montelukast 10 mg tablet 10 mg PO HS 05/21/25 05/21/25 History prednisone 2.5 mg tablet 2.5 mg PO DAILY 05/21/25 05/21/25 History New Prescriptions to Start Prescriptions: Allergies Allergy/AdvReac Type Severity Reaction Status Date / Time pembrolizumab (From Keytruda) Allergy Severe Difficulty Verified 05/08/25 15:13 Breathing diltiazem (DILTIAZEM) Allergy Unknown UNKNOWN Verified 05/08/25 15:13 levofloxacin (From LEVAQUIN) Allergy Unknown NA-NAUSEA/V Verified 05/08/25 15:13 OMITING nadolol (From CORGARD) Allergy Unknown UNKNOWN Verified 05/08/25 15:13 oxycodone (From ROXICET) Allergy Unknown UNKNOWN Verified 05/08/25 15:13 umeclidinium (From Anoro AdvReac Intermediate Chest Pain Verified 05/08/25 15:13 Ellipta) vilanterol (From Anoro AdvReac Intermediate Chest Pain Verified 05/08/25 15:13 Ellipta) morphine AdvReac Hallucinati Verified 05/08/25 15:13 ng olodaterol (From Stiolto AdvReac Chest Pain Verified 05/08/25 15:13 Respimat) tiotropium (From Stiolto AdvReac Chest Pain Verified 05/08/25 15:13 Respimat) Assessment and Plan *Assessment and plan (1) Chest pain: Status: Acute Qualifiers: Chest pain type: unspecified Qualified Code(s): R07.9 - Chest pain, unspecified Category: Medical Code(s): R07.9 - Chest pain, unspecified (2) Acute hypercapnic respiratory failure: Status: Acute Category: Medical Code(s): J96.02 - Acute respiratory failure with hypercapnia (3) Acute exacerbation of chronic obstructive pulmonary disease: Status: Acute Category: Medical Code(s): J44.1 - Chronic obstructive pulmonary disease with (acute) exacerbation (4) NSTEMI (non-ST elevated myocardial infarction): Status: Acute Category: Medical Code(s): I21.4 - Non-ST elevation (NSTEMI) myocardial infarction (5) Tobacco use disorder: Status: Acute Category: Medical Code(s): F17.200 - Nicotine dependence, unspecified, uncomplicated (6) Hyperlipidemia: Status: Acute Qualifiers: Hyperlipidemia type: mixed hyperlipidemia Qualified Code(s): E78.2 - Mixed hyperlipidemia Category: Medical Code(s): E78.5 - Hyperlipidemia, unspecified (7) Stage 4 lung cancer: Status: Acute Qualifiers: Laterality: left Qualified Code(s): C34.92 - Malignant neoplasm of unspecified part of left bronchus or lung Category: Medical Code(s): C34.90 - Malignant neoplasm of unspecified part of unspecified bronchus or lung (8) Metastatic lung cancer (metastasis from lung to other site): Status: Chronic Qualifiers: Laterality: left Qualified Code(s): C34.92 - Malignant neoplasm of unspecified part of left bronchus or lung Category: Medical Code(s): C34.90 - Malignant neoplasm of unspecified part of unspecified bronchus or lung Plan 1. Chest pain with elevated troponin with concern for type I non-STEMI in a patient with known CAD and prior CO/stenting -Limited echocardiogram today appears to show preserved EF around 60% 2. Acute hypercapnic respiratory failure, COPD, tobacco use -Currently on BiPAP therapy with improving blood gas numbers 3. History of stage IV lung cancer status post surgery, chemotherapy and radiation, in remission -History of metastasis to brain, status postradiation -Chest CTA this admission suggest chronic left pleural effusion with chronic postsurgical changes of left lobectomy. 4. Hyperlipidemia, on statin therapy 5. History of diabetes, currently controlled with diet Venous blood gas shows improvement in the patient's CO2 as well as her lactic acid level and pH. Preliminary echocardiogram today shows preserved LV ejection fraction, same as earlier this month. Recommend continued BiPAP therapy and assess for cardiac cath tomorrow. Continue aspirin, statin and lisinopril/HCTZ
[2025-05-21 15:21] LABS: Lactate Venous 2.1 mmol/L (0.4-2.0); VBG PCO2 72.4 mmol/L (35-51)
--- NOTE | 2025-05-21 15:30 | PC.NURSE ---
Ridge Irby and Nuria Irby notified of patients VBG at this time. Ridge Irby states patient will go for a heart cath tomorrow. Continuation of care plan.
[2025-05-21] MEDS: ACETAMINOPHEN 325MG TAB 650 MG PO (15:34)
[2025-05-21 16:35] LABS: Troponin I 1.62 ng/ml (0.00-0.034)
--- NOTE | 2025-05-21 16:39 | PC.NURSE ---
Patients axillary temperature of 96.3. Nuria Irby notified. Hypothermic protocol started per Nuria Irby. Patient tolerated well. Continuation of care plan.
[2025-05-21 17:19] LABS: Reflex Lactic Add Lactic Reflex
[2025-05-21 17:35] LABS: Lactic Acid Follow Up (RFLX 1) 1.7 mmol/L (0.7-2.1)
[2025-05-21] MEDS: BUDESONIDE 0.5MG/2ML NEB 0.5 MG IH (18:10)
[2025-05-21] MEDS: PANTOPRAZOLE 40MG TABLET 40 MG PO (20:05)
[2025-05-21] MEDS: MONTELUKAST SODIUM 10MG TAB 10 MG PO (20:06)
[2025-05-21] MEDS: PROCHLORPERAZINE 10MG/2ML VIAL 10 MG IV (20:34)
[2025-05-22] VITALS (30 sets, daily range): BP systolic 98–151; BP diastolic 41–86; PULSE 68–100; RESP 12–24; TEMP 36.6–37.1; O2SAT 4–100; BMI 26.9
[2025-05-22] MEDS: DOXYCYCLINE HYCLATE 100 MG in 0.9 % SODIUM CHLORIDE 250 ML 166 MG IV ×2 (01:45→15:51)
[2025-05-22] MEDS: HYDROCODONE/APAP 5/325 MG TABLET 1 TAB PO ×2 (01:51→21:05)
[2025-05-22 01:52] LABS: Microscopic, Urine URINE MICROSCOPIC (MICROSCOPIC)
[2025-05-22 01:53] LABS: Bilirubin,Urine Negative (Negative); Color,Urine YELLOW (Yellow); Glucose,Urine (UA) Negative (Negative); Ketones,Urine Negative (Negative); Leukocyte Esterase,Urine Negative (Negative); PH,Urine 5.5 (5.0-8.5); Protein,Urine Negative (Negative); Specific Gravity, Urine 1.025 (1.005-1.030); Urobilinogen,Urine 0.2 EU/dl (0.2)
[2025-05-22] MEDS: IPRATROPIUM/ALBUTEROL 3 ML NEB IH ×2 (02:12→06:08)
[2025-05-22 02:13] LABS: Bacteria,Urine 2+ /lpf; Hyaline Casts,Urine OCC #/lpf (0); Mucus,Urine 1+ /lpf
[2025-05-22 05:54] LABS: Hematocrit 38.2 % (37.0-47.0); Immature Granulocytes % 0.5 %; Mean Corpuscular HGB Conc 29.6 g/dL (31.8-35.4); Mean Corpuscular Hemoglobin 29.1 pg (27.0-31.2); Mean Corpuscular Volume 98.5 fl (81-99); Nucleated Red Blood Cells % 0 %; Platelet Count 153 K/mm3 (142-424); Red Blood Count 3.88 M/mm3 (4.20-5.40); Red Cell Distribution Width-SD 57.2 fL; White Blood Count 8.6 K/mm3 (4.8-10.8)
[2025-05-22 05:57] LABS: Hemoglobin 11.6 g/dL (12.2-16.2)
[2025-05-22 05:59] LABS: Chloride 95 mmol/L (98-107); Potassium 5.2 mmoL/L (3.5-5.1); Sodium 134 mmol/L (136-145)
[2025-05-22 06:02] LABS: Anion Gap 10.2 mEq/L (5-15); Blood Urea Nitrogen 22 mg/dl (7-17); Calcium 9.4 mg/dl (8.4-10.2); Carbon Dioxide 34 mmol/L (22.0-30.0); Cholesterol 156 mg/dl (140-200); Creatinine Clearance Estimated 54 mL/min (50-200); Creatinine,Serum 1.00 mg/dl (0.52-1.04); Estimated Glomerular Filt Rate 55 ml/min (>60); GFR (African American) 67 ML/MIN (>60); Glucose 136 mg/dl (74-100); HDL Cholesterol 82 mg/dl (40-60); Magnesium 2.0 mg/dl (1.6-2.3); Triglycerides 116 mg/dl (30-150)
[2025-05-22] MEDS: BUDESONIDE 0.5MG/2ML NEB 0.5 MG IH (06:08)
[2025-05-22 08:17] LABS: VBG HCO3 26.5 mmol/L (23-30); VBG PCO2 47.1 mmol/L (35-51); VBG PH 7.37 mmol/L (7.31-7.41); VBG PO2 39.0 mmol/L (28-40)
[2025-05-22 08:18] LABS: Lactate Venous 3.4 mmol/L (0.4-2.0)
[2025-05-22] MEDS: METHYLPREDNISOLONE SOD SUCC 40MG VIAL 40 MG IV (08:43)
[2025-05-22] MEDS: LISINOPRIL/HCTZ 10-12.5MG TABLET 2 EACH PO (08:43)
[2025-05-22] MEDS: ASPIRIN EC 81MG TABLET 81 MG PO (08:44)
[2025-05-22] MEDS: ATORVASTATIN 40MG TABLET 40 MG PO (08:44)
[2025-05-22] MEDS: BUTALB/ACETAMINOPHEN/CAFFEINE 50MG/325MG/40MG TAB 1 EACH PO ×2 (08:48→18:18)
--- NOTE | 2025-05-22 08:51 | [facility].PHAAMS2 ---
- Antimicrobial Stewardship Review culture & sensitivity review Stewardship interventions: culture & sensitivity review, reviewed - no change Comments: URINE CX PENDING, PATIENT ON DOXYCYCLINE FOR COPD EXACERBATION/RESPIRATORY FAILURE. WBC DECREASED TO 8.6 K/mm3, AFEBRILE OVER 24 HR.
[2025-05-22 08:53] LABS: Troponin I 3.77 ng/ml (0.00-0.034)
--- NOTE | 2025-05-22 09:47 | IR_ITS ---
APPROVED REPORT Patient Location: Inpatient PROCEDURES Left heart catheterization Left ventriculogram Selective coronary angiogram Intravascular ultrasound of the left main artery LAD and circumflex artery Drug-eluting stent deployment to the proximal LAD INDICATION Acute non-ST elevation myocardial infarction, Coronary artery disease, Angiographic ambiguity, Immediate left main stenosis Informed consent was obtained prior to the procedure. COMPLICATIONS NONE Estimated Blood Loss: LESS THAN 10 ML TECHNIQUE One percent lidocaine used to anesthetize the right anterior aspect of the wrist. The right radial artery was accessed via the Seldinger technique. A 6 [place] sheath was placed in the right radial artery. 2.5 mg of Verapamil, 800 mcg of nitroglycerin, 1mg Lidocaine and 5000 U Heparin were given through the arterial sheath. The JL3 catheter was also used to perform left heart catheterization, left ventriculogram and selective coronary angiogram. At the end the diagnostic angiogram therapeutic Was administered giving a therapeutic ACT and the guide catheter was placed in left main artery followed by Choice PT extra-support wire down the circumflex artery. Intravascular ultrasound probe was advanced which demonstrated moderate atheromatous plaque in the distal left main artery which was greater than 6.5 mm???. Interrogation of the circumflex artery failed to demonstrate an MLA less than 4 mm???. The wire was pulled back and placed into the LAD where intravascular ultrasound probe was advanced which demonstrated heavy calcification in the proximal portion with an MLA of 3.6 mm???. Because of the non-STEMI and the calcification in the proximal LAD with heavy plaque burden at 3.5 x 18 mm Rice frontier stent was deployed at 14 dean reducing the stenosis. Intravascular ultrasound probe was reinserted which demonstrated underexpansion with heavy calcification in the proximal and midportion. A 3.5 x 12 mm noncompliant balloon was deployed in the proximal and midportion of the stent at 20 dean to post dilate. Excellent angiographic results were obtained. At the end the procedure the apparatus was removed the sheath was removed and hemostasis was achieved using TR banding patient was transferred to the postop holding in stable condition ANGIOGRAPHIC RESULTS The left main artery Has a distal 30 to 40% eccentric stenosis The left anterior descending artery Is calcified in the proximal segment with angiography having a 40% stenosis proving to be in excess of 70% stenosis by IVUS. There is additional 30 and 40% mid vessel stenosis The circumflex artery Large dominant with proximal 30% stenosis and a mid vessel 40 to 50% stenosis The right coronary artery Nondominant yet still large with a stent in the proximal segment which is widely patent and free of in-stent restenosis with excellent proximal distal transitioning The [place] ventriculogram reveals Preserved 60% The left ventricular end-diastolic pressure Elevated at 20 to 25 mmHg IMPRESSION Moderate distal left main stenosis as described above Severe proximal LAD calcification and stenosis which is likely the culprit for the non-STEMI Successful stenting of the proximal LAD/culprit lesion culprit stenosis reduced to 0% with 1 drug-eluting stent Persistent moderate stenosis in the mid dominant circumflex artery as described above Preserved ejection fraction Elevated LVEDP PLAN 1. Dual antiplatelet therapy 2. Cardiac rehabilitation 3. Avoidance of tobacco products 4. Risk factor modification 5. LDL less than 55 to be achieved at high intensity statin 6. Treatment of diastolic dysfunction Electronically signed by : Dexter Noonan MD 05/22/2025 13:35:53
--- NOTE | 2025-05-22 09:52 | P.PN_ITS ---
Subjective *Date: 05/22/25 *Time: 11:11 Interval history: No acute respiratory vents overnight. Pulmonology Exam Inpatient Vital signs and Labs for Last 24 Hours: Temp Pulse Resp BP Pulse Ox O2 Del Method O2 Flow Rate 98.3 F 98 H 20 114/67 95 Nasal Cannula 4 05/22/25 08:00 05/22/25 09:00 05/22/25 09:00 05/22/25 09:00 05/22/25 09:00 05/22/25 09:00 05/22/25 09:00 FiO2 30 05/22/25 05:45 Laboratory Results - last 24 hr 05/21/25 09:25: D-Dimer 0.54 H, Sodium 137, Potassium 3.8, Chloride 95 L, Carbon Dioxide 36 H, Anion Gap 9.8, BUN 21 H, Creatinine 1.00, Estimated Creat Clear 54, Estimated GFR 55 L, Est GFR ( Amer) 67, Glucose 117 H, Hemoglobin A1c 5.7, Calcium 9.2, Total Bilirubin 0.6, AST 29, ALT 16, Alkaline Phosphatase 92, Troponin I < 0.01, NT-Pro-B Natriuret Pep 1020 H, Total Protein 8.1, Albumin 4.3, Globulin 3.8 H, Albumin/Globulin Ratio 1.1, Lipase 150, TSH 2.57, HCV Ab TANGELA w/Rflx PCR Qn Negative, HIV Ag/Ab Combo Qual Negative 05/21/25 13:00: Troponin I 0.59 H 05/21/25 13:18: VBG pH 7.14 L, VBG pCO2 92.6 H, VBG pO2 34.2, VBG HCO3 30.5 H, VBG Total CO2 33.4 H, VBG O2 Saturation 55.8, VBG Base Excess 1.5, VBG Lactic Acid 2.4 H 05/21/25 13:48: SARS-CoV-2 (PCR) Not detected, Influenza Type A (PCR) Not detected, Influenza Type B (PCR) Not detected, RSV (PCR) Not detected, Rhinovirus (PCR) Not detected 05/21/25 15:10: VBG pH 7.24 L, VBG pCO2 72.4 H, VBG pO2 54.7 H, VBG HCO3 30.1 H, VBG Total CO2 32.3 H, VBG O2 Saturation 85.5 H, VBG Base Excess 2.7 H, VBG Lactic Acid 2.1 H 05/21/25 15:57: Lactate 1.7, Troponin I 1.62 H 05/22/25 01:38: Urine Color Yellow, Urine Appearance Clear, Urine pH 5.5, Ur Specific [place] 1.025, Urine Protein Negative, Urine Glucose (UA) Negative, Urine Ketones Negative, Urine Blood Trace-i, Urine Nitrate Negative, Urine Bilirubin Negative, Urine Urobilinogen 0.2, Ur Leukocyte Esterase Negative, Urine RBC 5-10, Urine WBC 3-5, Ur Squamous Epith Cells 5-10, Urine Bacteria 2+, Hyaline Casts Occ, Urine Mucus 1+ 05/22/25 04:24: WBC 8.6, RBC 3.88 L, Hgb 11.6 L, Hct 38.2, MCV 98.5, MCH 29.1, MCHC 29.6 L, RDW 15.9, Plt Count 153, MPV 10.8 H, Neut % (Auto) 87.5 H, Lymph % (Auto) 8.2 L, [place] % (Auto) 3.7, Eos % (Auto) 0.0 L, Baso % (Auto) 0.1, Neut # (Auto) 7.6, Lymph # (Auto) 0.7, [place] # (Auto) 0.3, Eos # (Auto) 0.0, Baso # (Auto) 0.0, Sodium 134 L, Potassium 5.2 H D, Chloride 95 L, Carbon Dioxide 34 H, Anion Gap 10.2, BUN 22 H, Creatinine 1.00, Estimated Creat Clear 54, Estimated GFR 55 L, Est GFR ( Amer) 67, Glucose 136 H, Calcium 9.4, Magnesium 2.0, Triglycerides 116, Cholesterol 156, LDL Cholesterol Direct 76.14 L, VLDL Cholesterol 23, HDL Cholesterol 82 H, Cholesterol/HDL Ratio 1.9 05/22/25 04:42: Troponin I 3.77 H 05/22/25 08:09: VBG pH 7.37, VBG pCO2 47.1, VBG pO2 39.0, VBG HCO3 26.5, VBG To cathy CO2 27.9 H, VBG O2 Saturation 77.9 H, VBG Base Excess 1.2, VBG Lactic Acid 3.4 H Temp Pulse Resp BP Pulse Ox O2 Del Method O2 Flow Rate 97.3 F L 84 16 123/50 L 93 L Nasal Cannula 4 05/21/25 12:49 05/21/25 12:49 05/21/25 12:49 05/21/25 12:49 05/21/25 12:49 05/21/25 13:00 05/21/25 13:00 FiO2 50 05/21/25 10:42 Laboratory Results - last 24 hr 05/21/25 09:25: WBC 10.7, RBC 4.27, Hgb 12.6, Hct 40.8, MCV 95.6, MCH 29.5, MCHC 30.9 L, RDW 16.0, Plt Count 192, MPV 10.7 H, Neut % (Auto) 65.2, Lymph % (Auto) 23.5, [place] % (Auto) 8.4, Eos % (Auto) 2.0, Baso % (Auto) 0.6, Neut # (Auto) 7.0, Lymph # (Auto) 2.5, [place] # (Auto) 0.9, Eos # (Auto) 0.2, Baso # (Auto) 0.1, D- Dimer 0.54 H, Sodium 137, Potassium 3.8, Chloride 95 L, Carbon Dioxide 36 H, Anion Gap 9.8, BUN 21 H, Creatinine 1.00, Estimated Creat Clear 54, Estimated GFR 55 L, Est GFR ( Amer) 67, Glucose 117 H, Hemoglobin A1c 5.7, Calcium 9.2, Total Bilirubin 0.6, AST 29, ALT 16, Alkaline Phosphatase 92, Troponin I < 0.01, NT-Pro-B Natriuret Pep 1020 H, Total Protein 8.1, Albumin 4.3, Globulin 3.8 H, Albumin/Globulin Ratio 1.1, Lipase 150, TSH 2.57, HCV Ab TANGELA w/Rflx PCR Qn Negative, HIV Ag/Ab Combo Qual Negative 05/21/25 09:33: VBG pH 7.21 L, VBG pCO2 89.4 H, VBG pO2 40.1 H, VBG HCO3 35.2 H, VBG Total CO2 37.9 H, VBG O2 Saturation 68.5, VBG Base Excess 7.4 H, VBG Lactic Acid 1.8 05/21/25 13:00: Troponin I 0.59 H 05/21/25 13:18: VBG pH 7.14 L, VBG pCO2 92.6 H, VBG pO2 34.2, VBG HCO3 30.5 H, VBG Total CO2 33.4 H, VBG O2 Saturation 55.8, VBG Base Excess 1.5, VBG Lactic Acid 2.4 H I & O for Labs for Last 24 Hours: Intake & Output 05/19/25 05/20/25 05/21/25 05/22/25 23:59 23:59 23:59 23:59 Intake Total 1300 / 1300 460 / 460 Output Total 750 / 750 900 / 900 Balance 550 / 550 -440 / -440 Weight 142 lb 4 oz 142 lb 10.225 oz Intake & Output 05/18/25 05/19/25 05/20/25 05/21/25 23:59 23:59 23:59 23:59 Intake Total 1050 / 1050 Output Total 250 / 250 Balance 800 / 800 Weight 142 lb 4 oz Microbiology Reports for the Last 24 Hours: Microbiology 08/23/22 15:10 Sputum - Expectorated Sputum Gram Stain - Final 08/23/22 15:10 Sputum - Expectorated Sputum Sputum Culture - Preliminary Constitutional: Present severe distress Head: Present normocephalic and atraumatic ENT: Present normal exam, normal oropharynx and mucous membranes moist Comment:: No stridor Neck: Present normal inspection and full ROM Respiratory: Present prolonged expiratory phase, respiratory distress, wheezes, diminished air movement and able to speak in complete sentences; Absent rhonchi, stridor or normal respiratory effort Cardiac: Present S1/S2, Tachycardia and radial pulses present GI: Present soft and distention; Absent tenderness or guarding Rectal (female): Present deferred (female): Present deferred Skin: Present intact; Absent cyanosis or jaundice Neuro: Present alert, awake and oriented x 3 Extremities: Present normal inspection; Absent clubbing or cyanosis Psychiatric: Present normal affect and cooperative Assessment and Plan *Assessment and plan (1) Acute exacerbation of chronic obstructive pulmonary disease: Status: Acute Category: Medical Code(s): J44.1 - Chronic obstructive pulmonary disease with (acute) exacerbation (2) Acute hypercapnic respiratory failure: Status: Acute Category: Medical Code(s): J96.02 - Acute respiratory failure with hypercapnia Plan Ms. Yeh is a 69-year-old female greater than [id number] smoking history prior history of lung cancer chemoradiation following send Kash Goddard at home Trelegy 100 inhaler presented with worsening respiratory distress and pulmonary was called for further evaluation and management. Patient admits she is at herself up until this morning she woke up complaining of chest tightness and pain that relieved after 2 doses of sublingual nitroglycerin. CT chest upon admission no dense consolidative/airspace changes. No pulmonary embolism. Afebrile. Hemodynamically stable. No evidence of leukocytosis. Comprehensive respiratory viral PCR within normal limits. Venous blood gas upon admission showed hypercarbic respiratory failure that got worse on her subsequent blood gas with a pCO2 of 92.6 and a pH of 7.136. Interval update: Improving hypercarbic respiratory failure, venous blood gas this morning 7.37 and 47.1. Plan: Reinitiate CPAP therapy for her sleep apnea per patient care historical diagnosis sleep apnea previously uses CPAP however has not been using that for the last couple of years. Will check with Ravinder to determine her current settings. Will follow as an outpatient basis repeat blood gas to admit the need for changing her CPAP to bilevel therapy. Trelegy 100 inhaler along with DuoNebs 4 times daily. Wean steroids to prednisone 40 mg daily to complete a total of 5-day course Doxycycline 100 mg twice daily x 5 days Follow with cardiology recommendation
--- NOTE | 2025-05-22 10:11 | P.PN_ITS ---
<Statement entered by Jordy Akers MD - 05/22/25 14:58> Rounded on patient after nurse practitioner. Personally examined and interviewed patient. Agree with exam findings and care plan as documented. Subjective *Date: 05/22/25 *Time: 10:11 Interval history: Patient doing well today, more interactive with conversation. Wore BiPAP overnight, repeat VBG this morning much improved. Denies current chest pain, troponin repeated this morning, continues to be quite elevated. Plans for [facility] today. Patient on 4 L O2 nasal cannula, baseline 3 L. Pulmonology and cardiology following. Medical Exam Vital signs and Labs for Last 24 Hours: Vital Signs Temp Pulse Pulse Resp BP Pulse Ox O2 Del Method 05/22/25 09:00 Nasal Cannula 05/22/25 09:00 98 H 20 114/67 95 Nasal Cannula 05/22/25 08:00 98.3 F 96 H 18 129/67 96 Nasal Cannula 05/22/25 08:00 95 H 95 Nasal Cannula 05/22/25 07:00 91 H 16 115/67 97 Nasal Cannula 05/22/25 07:00 Nasal Cannula 05/22/25 06:41 91 H 18 98 Nasal Cannula 05/22/25 06:41 119/66 05/22/25 05:45 85 05/22/25 05:45 88 05/22/25 05:45 96 Nasal Cannula 05/22/25 05:02 111/54 L 05/22/25 05:00 80 12 97 Nasal Cannula 05/22/25 05:00 Nasal Cannula 05/22/25 04:00 97.9 F 78 24 119/67 91 L BiPAP 05/22/25 04:00 70 05/22/25 03:00 Nasal Cannula 05/22/25 02:15 75 05/22/25 02:15 76 05/22/25 02:15 05/22/25 02:00 4 L Nasal Cannula 05/22/25 02:00 78 18 120/63 95 Nasal Cannula 05/22/25 01:00 Nasal Cannula 05/22/25 00:00 70 05/22/25 00:00 97.8 F 68 16 99/41 L 91 L Nasal Cannula 05/21/25 23:00 Nasal Cannula 05/21/25 22:56 96 Nasal Cannula 05/21/25 22:45 98 Nasal Cannula 05/21/25 22:25 70 05/21/25 22:25 73 05/21/25 22:25 05/21/25 22:00 84 20 135/81 93 L BiPAP 05/21/25 21:01 BiPAP 05/21/25 21:00 BiPAP 05/21/25 20:00 60 05/21/25 20:00 Nasal Cannula 05/21/25 20:00 97.0 F L 73 17 113/58 L 96 BiPAP 05/21/25 18:52 BiPAP 05/21/25 18:30 79 05/21/25 18:30 80 05/21/25 18:30 94 L BiPAP 05/21/25 18:30 05/21/25 18:28 96.9 F L 05/21/25 18:01 77 20 127/78 94 L BiPAP 05/21/25 17:00 59 L 24 113/63 94 L BiPAP 05/21/25 17:00 BiPAP 05/21/25 16:00 60 20 110/66 94 L BiPAP 05/21/25 15:41 75 05/21/25 15:00 BiPAP 05/21/25 14:01 70 17 128/68 92 L BiPAP 05/21/25 13:10 92 L BiPAP 05/21/25 13:04 75 05/21/25 13:00 Nasal Cannula 05/21/25 12:49 97.3 F L 84 16 123/50 L 93 L Nasal Cannula 05/21/25 12:49 98.3 F 61 20 128/63 Room Air 05/21/25 12:00 69 20 132/65 94 L 05/21/25 11:30 77 18 123/69 95 BiPAP 05/21/25 11:00 69 12 122/74 98 05/21/25 10:51 81 8 L 141/72 H 99 05/21/25 10:42 82 05/21/25 10:42 O2 Flow Rate FiO2 05/22/25 09:00 4 05/22/25 09:00 4.5 05/22/25 08:00 4.5 05/22/25 08:00 4 05/22/25 07:00 4.5 05/22/25 07:00 4 05/22/25 06:41 4 05/22/25 06:41 05/22/25 05:45 05/22/25 05:45 05/22/25 05:45 2.5 30 05/22/25 05:02 05/22/25 05:00 4 05/22/25 05:00 4 05/22/25 04:00 30 05/22/25 04:00 05/22/25 03:00 4 05/22/25 02:15 05/22/25 02:15 05/22/25 02:15 30 05/22/25 02:00 05/22/25 02:00 4 05/22/25 01:00 4 05/22/25 00:00 05/22/25 00:00 4 05/21/25 23:00 4 05/21/25 22:56 4 05/21/25 22:45 6 05/21/25 22:25 05/21/25 22:25 05/21/25 22:25 30 05/21/25 22:00 30 05/21/25 21:01 30 05/21/25 21:00 05/21/25 20:00 05/21/25 20:00 6 05/21/25 20:00 30 05/21/25 18:52 05/21/25 18:30 05/21/25 18:30 05/21/25 18:30 30 05/21/25 18:30 30 05/21/25 18:28 05/21/25 18:01 30 05/21/25 17:00 30 05/21/25 17:00 05/21/25 16:00 30 05/21/25 15:41 05/21/25 15:00 05/21/25 14:01 30 05/21/25 13:10 05/21/25 13:04 05/21/25 13:00 4 05/21/25 12:49 4 05/21/25 12:49 05/21/25 12:00 05/21/25 11:30 05/21/25 11:00 05/21/25 10:51 05/21/25 10:42 05/21/25 10:42 50 Intake and Output 05/21/25 05/22/25 05/22/25 23:59 07:59 15:59 Intake Total 250 / 1300 250 / 460 210 / 460 Output Total 500 / 750 700 / 900 200 / 900 Balance -250 / 550 -450 / -440 10 / -440 Intake: Intake, Oral Amount 210 / 210 Intake, Total IV Amount 250 / 1300 250 / 250 Doxycycline Hyclate 100 mg In 0 250 / 250 250 / 250 .9 % Sodium Chloride 250 ml @ 166.667 mls/hr IV Q12H [facility] Rx#: [id number] Output: Output, Urine Amount 500 / 750 700 / 900 200 / 900 Other: Number of Unmeasured Voids 0 Weight 64.7 kg Patient Weight 05/22/25 23:59 Weight 64.7 kg Laboratory Results - last 24 hr 05/21/25 09:25: Hemoglobin A1c 5.7, TSH 2.57, HCV Ab TANGELA w/Rflx PCR Qn Negative, HIV Ag/Ab Combo Qual Negative 05/21/25 13:00: Troponin I 0.59 H 05/21/25 13:18: VBG pH 7.14 L, VBG pCO2 92.6 H, VBG pO2 34.2, VBG HCO3 30.5 H, VBG Total CO2 33.4 H, VBG O2 Saturation 55.8, VBG Base Excess 1.5, VBG Lactic Acid 2.4 H 05/21/25 13:48: SARS-CoV-2 (PCR) Not detected, Influenza Type A (PCR) Not detected, Influenza Type B (PCR) Not detected, RSV (PCR) Not detected, Rhinovirus (PCR) Not detected 05/21/25 15:10: VBG pH 7.24 L, VBG pCO2 72.4 H, VBG pO2 54.7 H, VBG HCO3 30.1 H, VBG Total CO2 32.3 H, VBG O2 Saturation 85.5 H, VBG Base Excess 2.7 H, VBG Lactic Acid 2.1 H 05/21/25 15:57: Lactate 1.7, Troponin I 1.62 H 05/22/25 01:38: Urine Color Yellow, Urine Appearance Clear, Urine pH 5.5, Ur Specific [place] 1.025, Urine Protein Negative, Urine Glucose (UA) Negative, Urine Ketones Negative, Urine Blood Trace-i, Urine Nitrate Negative, Urine Bilirubin Negative, Urine Urobilinogen 0.2, Ur Leukocyte Esterase Negative, Urine RBC 5-10, Urine WBC 3-5, Ur Squamous Epith Cells 5-10, Urine Bacteria 2+, Hyaline Casts Occ, Urine Mucus 1+ 05/22/25 04:24: WBC 8.6, RBC 3.88 L, Hgb 11.6 L, Hct 38.2, MCV 98.5, MCH 29.1, MCHC 29.6 L, RDW 15.9, Plt Count 153, MPV 10.8 H, Neut % (Auto) 87.5 H, Lymph % (Auto) 8.2 L, [place] % (Auto) 3.7, Eos % (Auto) 0.0 L, Baso % (Auto) 0.1, Neut # (Auto) 7.6, Lymph # (Auto) 0.7, [place] # (Auto) 0.3, Eos # (Auto) 0.0, Baso # (Auto) 0.0, Sodium 134 L, Potassium 5.2 H D, Chloride 95 L, Carbon Dioxide 34 H, Anion Gap 10.2, BUN 22 H, Creatinine 1.00, Estimated Creat Clear 54, Estimated GFR 55 L, Est GFR ( Amer) 67, Glucose 136 H, Calcium 9.4, Magnesium 2.0, Triglycerides 116, Cholesterol 156, LDL Cholesterol Direct 76.14 L, VLDL Cholesterol 23, HDL Cholesterol 82 H, Cholesterol/HDL Ratio 1.9 05/22/25 04:42: Troponin I 3.77 H 05/22/25 08:09: VBG pH 7.37, VBG pCO2 47.1, VBG pO2 39.0, VBG HCO3 26.5, VBG Total CO2 27.9 H, VBG O2 Saturation 77.9 H, VBG Base Excess 1.2, VBG Lactic Acid 3.4 H Vital Signs Temp Pulse Pulse Resp BP Pulse Ox 08/24/22 10:42 89 L 08/24/22 07:26 98.5 F 69 18 127/67 94 L 08/24/22 06:15 85 08/24/22 06:15 87 08/24/22 04:00 98.1 F 72 17 110/71 100 08/23/22 20:00 97 08/23/22 20:00 97.9 F 69 18 114/72 97 08/23/22 19:42 79 08/23/22 19:42 88 08/23/22 19:42 98 08/23/22 15:30 98.6 F 84 17 99/64 L 96 08/23/22 14:03 95 H 08/23/22 14:03 98 H 08/23/22 14:03 93 L Intake and Output 08/23/22 08/24/22 08/24/22 23:59 07:59 15:59 Intake Total 360 / 360 Output Total 0 / 0 0 / 0 0 / 0 Balance 0 / 840 360 / 360 0 / 360 Intake: Intake, Oral Amount 360 / 360 Output: Output, Urine Amount 0 / 0 0 / 0 0 / 0 Other: Number of Unmeasured Voids 1 3 1 Weight 68.402 kg 68.855 kg Patient Weight 08/24/22 23:59 Weight 68.855 kg Laboratory Results - last 24 hr 08/23/22 07:30: Total Counted 100, Neutrophils % (Manual) 73, Lymphocytes % (M anual) 21, Monocytes % (Manual) 6, Platelet Estimate Normal, RBC Morphology Normal 08/24/22 06:28: Sodium 140, Potassium 5.1, Chloride 104, Carbon Dioxide 33 H, Anion Gap 8.1, BUN 40 H, Creatinine 1.10 H D, Estimated Creat Clear 55, Estimated GFR 50 L, Est GFR ( Amer) 60 D, Glucose 93, Calcium 9.2, Total Bilirubin 0.3, AST 19, ALT 15, Alkaline Phosphatase 71, Total Protein 6.4, Albumin 3.7 D, Globulin 2.7, Albumin/Globulin Ratio 1.4 08/24/22 06:28: WBC 14.0 H D, RBC 3.73 L, Hgb 10.6 L, Hct 36.3 L, MCV 97.3, MCH 28.4, MCHC 29.2 L, RDW 15.8, Plt Count 204, MPV 9.4, Neut % (Auto) 74.2, Lymph % (Auto) 20.2, [place] % (Auto) 4.6, Eos % (Auto) 0.8, Baso % (Auto) 0.3, Neut # (Auto) 10.4 H, Lymph # (Auto) 2.8, [place] # (Auto) 0.6, Eos # (Auto) 0.1, Baso # (Auto) 0.0 I & O for Labs for Last 24 Hours: Intake & Output 05/19/25 05/20/25 05/21/25 05/22/25 23:59 23:59 23:59 23:59 Intake Total 1300 / 1300 460 / 460 Output Total 750 / 750 900 / 900 Balance 550 / 550 -440 / -440 Weight 64.524 kg 64.7 kg Intake & Output 08/21/22 08/22/22 08/23/22 08/24/22 23:59 23:59 23:59 23:59 Intake Total 1190 / 1430 840 / 840 360 / 360 Output Total 200 / 200 200 / 200 0 / 0 0 / 0 Balance -200 / -100 990 / 1230 840 / 840 360 / 360 Weight 67.132 kg 67.631 kg 68.402 kg 68.855 kg Microbiology Reports for the Last 24 Hours: Microbiology 08/21/22 18:28 Blood Blood Culture - Preliminary NO GROWTH AFTER 48 HOURS 08/21/22 18:18 Blood Blood Culture - Preliminary NO GROWTH AFTER 48 HOURS 08/23/22 15:10 Sputum - Expectorated Sputum Gram Stain - Final Constitutional: Present no acute distress, average body habitus and chronically ill appearing Head: Present atraumatic and normocephalic ENT: Present normal exam Neck: Present normal inspection Respiratory: Present stridor (Interval improvement, minimal today) and normal respiratory effort; Absent accessory muscle use, rhonchi, wheezes or crackles Cardiac: Present Reg Rate and Rhythm GI: Present soft, distention and normal bowel sounds; Absent tenderness Extremities: Present normal inspection and full ROM Skin: Present intact; Absent erythema Neuro: Present Grossly Intact, alert, awake, oriented x 3 and moves all extremities Assessment and Plan *Assessment and plan (1) Acute hypercapnic respiratory failure: Status: Acute Category: Medical Code(s): J96.02 - Acute respiratory failure with hypercapnia (2) Acute exacerbation of chronic obstructive pulmonary disease: Status: Acute Category: Medical Code(s): J44.1 - Chronic obstructive pulmonary disease with (acute) exacerbation (3) Chest pain: Status: Acute Qualifiers: Chest pain type: unspecified Qualified Code(s): R07.9 - Chest pain, unspecified Category: Medical Code(s): R07.9 - Chest pain, unspecified (4) NSTEMI (non-ST elevated myocardial infarction): Status: Acute Category: Medical Code(s): I21.4 - Non-ST elevation (NSTEMI) myocardial infarction (5) Stage 4 lung cancer: Status: Acute Qualifiers: Laterality: left Qualified Code(s): C34.92 - Malignant neoplasm of unspecified part of left bronchus or lung Category: Medical Code(s): C34.90 - Malignant neoplasm of unspecified part of unspecified bronchus or lung (6) Anxiety disorder: Status: Acute Category: Medical Code(s): F41.9 - Anxiety disorder, unspecified (7) Hypertension: Status: Acute Category: Medical Code(s): I10 - Essential (primary) hypertension (8) Hyperlipidemia: Status: Acute Qualifiers: Hyperlipidemia type: mixed hyperlipidemia Qualified Code(s): E78.2 - Mixed hyperlipidemia Category: Medical Code(s): E78.5 - Hyperlipidemia, unspecified (9) Tobacco use disorder: Status: Acute Category: Medical Code(s): F17.200 - Nicotine dependence, unspecified, uncomplicated Plan Ms. Yeh is a 69-year-old female with a significant medical history of stage IV lung cancer with mets to the brain, posttreatment in remission, supplemental O2 use of 3 L nasal cannula, COPD, HTN, HLD, tobacco use. She presented to the emergency department with complaints of 10/10 chest pain. Was admitted to the stepdown unit for acute respiratory failure with hypoxia and hypercapnia, acute exacerbation of COPD, and NSTEMI. Hospital medicine was consulted for admission, I agreed to admit the patient. Plan of care as follows: #Acute respiratory failure with hypoxia and hypercapnia #Acute COPD exacerbation #History of stage IV lung cancer with brain mets, in remission ?Patient has history of stage IV lung cancer with mets to the brain, currently in remission. Has had previous left lobectomy. Follows with pulmonology outpatient for COPD. Chest CTA shows left lobe postop changes and chronic left pleural effusion. Patient currently wears 3 L nasal cannula. Initial VBG shows pH 7.21 with elevated CO2, patient was placed on BiPAP?repeat VBG shows worsening respiratory acidosis with a pH of 7.14 and continued elevated CO2. ?Patient continued to wear BiPAP throughout the evening and night, repeat VBG this morning very reassuring showing a pH of 7.37, pCO2 47.1, pO2 39.0. Pulmonology consulted for further respiratory recommendations. ?Pulmonology's recommendations include reinitiating patient's CPAP, patient apparently has a historical diagnosis of sleep apnea previously used CPAP but has not in a few years. They are reaching out to [facility] for current settings and will continue to follow-up on outpatient basis with the patient. Continue trilogy inhaler daily, DuoNebs 4 times daily, continue oral prednisone 40 mg daily to complete a 5-day course, doxycycline 100 mg twice daily x 5 days. ?Patient was mentating appropriately although drowsy yesterday, mentation and drowsiness improved today. Answering questions appropriately, alert and oriented during conversation. Patient denies cough, congestion, recent respiratory illness. Respiratory panel shows negative for viral illness. #NSTEMI #HTN/HLD ?Patient initial complaint was chest pain, initially 10/10 patient received multiple rounds of sublingual nitroglycerin, morphine, fentanyl. After medication yesterday chest pain became mild, patient rating it a 2/10. Initial troponin negative less than 0.01, repeat 3-hour troponin elevated at 0.59, troponin continue to trend upward. Repeated troponin this morning shows continued upward trend of 3.77. Patient currently chest pain-free. Cardiology consulted for further recommendations. Patient had echo 04/30/2025 which showed normal LV systolic function, severe RV dilation, markedly elevated RVSP greater than 60 mmHg. Limited echo obtained and shows no change from echo 3 weeks ago. ?[place] case with cardiology who recommended stabilizing on BiPAP and left heart cath the next day. LHC planned for this afternoon, patient and spouse agreeable to this plan. Patient n.p.o. for procedure. ?Patient states she does have a history of LHC without JUAN. Not currently on anticoagulation. Initiated therapeutic Lovenox and aspirin 81 mg daily. Patient received aspirin 324 mg in the ED. ?EKG x 2 given persistent chest pain demonstrated sinus rhythm with RBBB without evidence of STEMI or acute ischemic changes. Patient placed on continuous cardiac telemetry in stepdown unit for continued close monitoring. ?Continuing cardiac medication lisinopril 20 mg?HCTZ 25 mg daily, atorvastatin 40 mg daily, #Tobacco use disorder: Patient states that she is a current everyday smoker, nicotine patches ordered. Counseled on smoking cessation. #Headache: patient did complain of headache this morning, states she takes Fioricet at home as needed for headaches/migraines. Ordered Fioricet every 6 hours as needed for headache. Full code Bed rest N.p.o. VTE?Lovenox
--- NOTE | 2025-05-22 12:07 | P.PN_ITS ---
Subjective Subjective Date: 05/22/25 Time: 12:07 Principal diagnosis: NSTEMI, COPD exacerbation Interval history: 69-year-old white female in bed in the ICU in no acute distress. No chest pain overnight. Troponin increased to 3.77 overnight Breathing has improved and she is now on nasal cannula oxygen. Venous blood gas this morning pH 7.37, pCO2 47, pO2 39, lactic acid up to 3.4 Exam Data for Last 24 hours Vital signs and Labs for Last 24 Hours: Temp Pulse Resp BP Pulse Ox O2 Del Method O2 Flow Rate 98.3 F 94 H 17 112/60 96 Nasal Cannula 4 05/22/25 08:00 05/22/25 10:00 05/22/25 10:00 05/22/25 10:00 05/22/25 10:00 05/22/25 11:00 05/22/25 11:00 FiO2 30 05/22/25 05:45 Laboratory Results - last 24 hr 05/21/25 09:25: Hemoglobin A1c 5.7, TSH 2.57 05/21/25 13:00: Troponin I 0.59 H 05/21/25 13:18: VBG pH 7.14 L, VBG pCO2 92.6 H, VBG pO2 34.2, VBG HCO3 30.5 H, VBG Total CO2 33.4 H, VBG O2 Saturation 55.8, VBG Base Excess 1.5, VBG Lactic Acid 2.4 H 05/21/25 13:48: SARS-CoV-2 (PCR) Not detected, Influenza Type A (PCR) Not det ected, Influenza Type B (PCR) Not detected, RSV (PCR) Not detected, Rhinovirus (PCR) Not detected 05/21/25 15:10: VBG pH 7.24 L, VBG pCO2 72.4 H, VBG pO2 54.7 H, VBG HCO3 30.1 H, VBG Total CO2 32.3 H, VBG O2 Saturation 85.5 H, VBG Base Excess 2.7 H, VBG Lactic Acid 2.1 H 05/21/25 15:57: Lactate 1.7, Troponin I 1.62 H 05/22/25 01:38: Urine Color Yellow, Urine Appearance Clear, Urine pH 5.5, Ur Specific [place] 1.025, Urine Protein Negative, Urine Glucose (UA) Negative, Urine Ketones Negative, Urine Blood Trace-i, Urine Nitrate Negative, Urine Bilirubin Negative, Urine Urobilinogen 0.2, Ur Leukocyte Esterase Negative, Urine RBC 5-10, Urine WBC 3-5, Ur Squamous Epith Cells 5-10, Urine Bacteria 2+, Hyaline Casts Occ, Urine Mucus 1+ 05/22/25 04:24: WBC 8.6, RBC 3.88 L, Hgb 11.6 L, Hct 38.2, MCV 98.5, MCH 29.1, MCHC 29.6 L, RDW 15.9, Plt Count 153, MPV 10.8 H, Neut % (Auto) 87.5 H, Lymph % (Auto) 8.2 L, [place] % (Auto) 3.7, Eos % (Auto) 0.0 L, Baso % (Auto) 0.1, Neut # (Auto) 7.6, Lymph # (Auto) 0.7, [place] # (Auto) 0.3, Eos # (Auto) 0.0, Baso # (Auto) 0.0, Sodium 134 L, Potassium 5.2 H D, Chloride 95 L, Carbon Dioxide 34 H, Anion Gap 10.2, BUN 22 H, Creatinine 1.00, Estimated Creat Clear 54, Estimated G FR 55 L, Est GFR ( Amer) 67, Glucose 136 H, Calcium 9.4, Magnesium 2.0, Triglycerides 116, Cholesterol 156, LDL Cholesterol Direct 76.14 L, VLDL Cholesterol 23, HDL Cholesterol 82 H, Cholesterol/HDL Ratio 1.9 05/22/25 04:42: Troponin I 3.77 H 05/22/25 08:09: VBG pH 7.37, VBG pCO2 47.1, VBG pO2 39.0, VBG HCO3 26.5, VBG Total CO2 27.9 H, VBG O2 Saturation 77.9 H, VBG Base Excess 1.2, VBG Lactic Acid 3.4 H I & O for Last 24 hours: Intake & Output 05/20/25 05/21/25 05/22/25 05/23/25 11:59 11:59 11:59 11:59 Intake Total 1050 / 1050 710 / 710 Output Total 1750 / 1750 Balance 1050 / 1050 -1040 / -1040 Weight 143 lb 142 lb 10.225 oz Constitutional Constitutional: no acute distress *Routine Respiratory Exam Respiratory: Present decreased breath sounds; Absent rhonchi or wheezes *Routine Cardiovascular Exam Cardiovascular: Present RRR and murmur; Absent gallop or rubs *Routine Extremities Exam Extremities: Absent edema Progress Note: A&P Assessment and plan (1) Acute hypercapnic respiratory failure: Status: Acute (2) Acute exacerbation of chronic obstructive pulmonary disease: Status: Acute (3) Chest pain: Status: Acute (4) NSTEMI (non-ST elevated myocardial infarction): Status: Acute (5) Stage 4 lung cancer: Status: Acute (6) Anxiety disorder: Status: Acute (7) Hypertension: Status: Acute (8) Hyperlipidemia: Status: Acute (9) Tobacco use disorder: Status: Acute Assessment and Plan Assessment and Plan for All Diagnoses:: 1. Chest pain with elevated troponin with concern for type I non-STEMI in a patient with known CAD and prior NH/stenting -Limited echo this admit shows EF 60%, severe RV dilation, decreased RV function, mod TR, RVSP>60 mmHg -on ASA, lisinopril/HCT and statin -[facility] today 2. Acute hypercapnic respiratory failure, COPD, tobacco use -Currently on nocturnal BiPAP with daytime nasal cannula -IV doxycycline and methylprednisolone 3. History of stage IV lung cancer status post surgery, chemotherapy and radiation, in remission -History of metastasis to brain, status postradiation -Chest CTA this admission suggest chronic left pleural effusion with chronic postsurgical changes of left lobectomy. 4. Hyperlipidemia, on statin therapy -LDL 76 5. History of diabetes, currently controlled with diet -Hgb A1C 5.7 [facility] today due to NSTEMI and known CAD with prior stenting. Consider diuretics after cath
[2025-05-22] MEDS: FLUTICASONE/UMECLIDIN/VILANTER 100/62.5/25MCG INHALER 1 PUFF IH (12:14)
[2025-05-22 12:17] LABS: Reflex Lactic Add Lactic Reflex
[2025-05-22] MEDS: 0.9 % SODIUM CHLORIDE 500 ML 25 ML IV (12:50)
[2025-05-22] MEDS: LIDOCAINE 1% 10ML MDV 10 ML IJ (12:50)
[2025-05-22] MEDS: NITROGLYCERIN 800MCG/8ML SYR (CATH LAB) 800 MCG IA (12:50)
[2025-05-22] MEDS: HEPARIN 1,000 UNITS/500ML NS (CATH LAB) 3000 UNIT IV (12:51)
[2025-05-22] MEDS: HEPARIN 1,000 UNITS/ML 10ML VIAL (CATH LAB) 5000 UNIT IV ×2 (12:51→13:30)
[2025-05-22] MEDS: VERAPAMIL 2.5MG/ML 2ML VIAL 2.5 MG IV (12:51)
[2025-05-22] MEDS: MIDAZOLAM HCL 1MG/ML 5ML VIAL 1 MG IV (13:32)
[2025-05-22] MEDS: FENTANYL 100MCG/2ML VIAL 50 MCG IV (13:32)
--- NOTE | 2025-05-22 14:07 | PC.NURSE ---
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
[2025-05-22 15:37] LABS: CATHL Activated Clotting Time 288 SEC (74-125)
[2025-05-22] MEDS: NICOTINE 21MG/24HR PATCH 21 MG TD (15:43)
--- NOTE | 2025-05-22 16:16 | PC.NURSE ---
Attempted to remove 2 ml of air from traclet at 1540 [id number] bleeding noted from cath site, 2ml of air placed back in band at this time.
[2025-05-22] MEDS: FLUCONAZOLE 200MG TABLET 150 MG PO (18:18)
[2025-05-22] MEDS: PANTOPRAZOLE 40MG TABLET 40 MG PO (21:06)
[2025-05-22] MEDS: MONTELUKAST SODIUM 10MG TAB 10 MG PO (21:06)
--- NOTE | 2025-05-22 21:23 | PC.NURSE ---
During initial assessment patient became increasingly exerted while transferring from bed to [facility]. Comparing to last shift patient work of breathing appears increased with pursed lip breathing, and SOA with minimal exertion. Upon auscultation patient is extremely diminished. Provider Diane Oneill APRN at bedside. New orders placed for chest xray.
--- NOTE | 2025-05-22 21:44 | XR_ITS ---
PROCEDURE INFORMATION: Exam: XR Chest Exam date and time: 05/22/2025 9:43 PM Age: 69 years old Clinical indication: Shortness of breath; Additional info: SOA TECHNIQUE: Imaging protocol: Radiologic exam of the chest. Views: 1 view. COMPARISON: CT ANGIO CHEST 05/21/2025 10:23 AM FINDINGS: Tubes, catheters and devices: Port-A-Cath tip in the SVC. Lungs: No focal infiltrates. Left perihilar surgical clips. Pleural spaces: Unremarkable. No pleural effusion. No pneumothorax. Heart/Mediastinum: Mild cardiomegaly. Bones/joints: Unremarkable. IMPRESSION: 1. Mild cardiomegaly. 2. No focal infiltrates. 3. Port-A-Cath tip in the SVC. 4. Left perihilar surgical clips.
[2025-05-23] VITALS: PULSE 72
[2025-05-23] MEDS: DOXYCYCLINE HYCLATE 100 MG in 0.9 % SODIUM CHLORIDE 250 ML 167 MG IV (02:09)
[2025-05-23 04:00] VITALS: PULSE 66; BMI 27.1
[2025-05-23 04:19] VITALS: BP 114/62; PULSE 71; RESP 19; O2SAT 98
[2025-05-23 05:22] LABS: VBG HCO3 32.8 mmol/L (23-30); VBG PH 7.27 mmol/L (7.31-7.41); VBG PO2 41.2 mmol/L (28-40)
[2025-05-23 05:24] LABS: Lactate Venous 2.5 mmol/L (0.4-2.0); VBG PCO2 73.0 mmol/L (35-51)
[2025-05-23] MEDS: FLUTICASONE/UMECLIDIN/VILANTER 100/62.5/25MCG INHALER 1 PUFF IH (06:07)
[2025-05-23 06:16] LABS: Hematocrit 33.0 % (37.0-47.0); Hemoglobin 10.1 g/dL (12.2-16.2); Immature Granulocytes % 0.3 %; Mean Corpuscular HGB Conc 30.6 g/dL (31.8-35.4); Mean Corpuscular Hemoglobin 29.4 pg (27.0-31.2); Mean Corpuscular Volume 96.2 fl (81-99); Nucleated Red Blood Cells % 0.2 %; Platelet Count 166 K/mm3 (142-424); Red Blood Count 3.43 M/mm3 (4.20-5.40); Red Cell Distribution Width-SD 57.2 fL; White Blood Count 11.7 K/mm3 (4.8-10.8)
[2025-05-23 06:48] LABS: Magnesium 1.9 mg/dl (1.6-2.3)
[2025-05-23 07:12] LABS: Chloride 95 mmol/L (98-107); Potassium 5.3 mmoL/L (3.5-5.1); Sodium 134 mmol/L (136-145)
[2025-05-23 07:15] LABS: Anion Gap 9.3 mEq/L (5-15); Blood Urea Nitrogen 29 mg/dl (7-17); Calcium 9.1 mg/dl (8.4-10.2); Carbon Dioxide 35 mmol/L (22.0-30.0); Creatinine Clearance Estimated 42 mL/min (50-200); Creatinine,Serum 1.30 mg/dl (0.52-1.04); Estimated Glomerular Filt Rate 41 ml/min (>60); GFR (African American) 49 ML/MIN (>60); Glucose 107 mg/dl (74-100)
[2025-05-23 07:45] VITALS: PULSE 90; RESP 20; O2SAT 99
[2025-05-23 07:45] LABS: ABG HCO3 30.9 mmhg (22.0-26.0); ABG PH 7.36 mmol/L (7.35-7.45); ABG PO2 72.0 mmhg (80-100); ABG TCO2 32.6 mmhg (23-27)
[2025-05-23 07:49] LABS: Source R RADIAL
[2025-05-23 07:50] LABS: ABG PCO2 56.0 mmhg (35.0-45.0)
[2025-05-23 07:52] VITALS: O2SAT 96
[2025-05-23 08:00] VITALS: PULSE 93
[2025-05-23] MEDS: ASPIRIN EC 81MG TABLET 81 MG PO (08:25)
[2025-05-23] MEDS: LISINOPRIL/HCTZ 10-12.5MG TABLET 2 EACH PO (08:26)
[2025-05-23] MEDS: METHYLPREDNISOLONE SOD SUCC 40MG VIAL 40 MG IV (08:27)
[2025-05-23] MEDS: ATORVASTATIN 40MG TABLET 40 MG PO (08:28)
[2025-05-23] MEDS: CLOPIDOGREL 75MG TAB 75 MG PO (08:34)
--- NOTE | 2025-05-23 08:49 | HMH.PHAAMS2 ---
- Antimicrobial Stewardship Review culture & sensitivity review Stewardship interventions: culture & sensitivity review, reviewed - no change Comments: URINE CX PENDING, PATIENT ON DOXYCYCLINE FOR COPD EXACERBATION/RESPIRATORY FAILURE.
[2025-05-23 09:19] LABS: Reflex Lactic Add Lactic Reflex
--- NOTE | 2025-05-23 09:26 | P.PN_ITS ---
Subjective Subjective Date: 05/23/25 Time: 09:26 Principal diagnosis: NSTEMI, COPD exacerbation Interval history: 69 yo WF in bed in NAD. Breathing continues to be an issue but overall better than admission. No chest pain overnight. Exam Data for Last 24 hours Vital signs and Labs for Last 24 Hours: Temp Pulse Resp BP Pulse Ox O2 Del Method O2 Flow Rate 97.9 F 93 H 20 114/62 96 Nasal Cannula 3 05/22/25 23:56 05/23/25 08:00 05/23/25 07:45 05/23/25 04:19 05/23/25 07:52 05/23/25 08:53 05/23/25 08:53 FiO2 30 05/22/25 05:45 Laboratory Results - last 24 hr 05/22/25 14:31: Activated Clotting Time 288 H* 05/23/25 04:38: WBC 11.7 H D, RBC 3.43 L, Hgb 10.1 L, Hct 33.0 L, MCV 96.2, MCH 29.4, MCHC 30.6 L, RDW 16.2, Plt Count 166, MPV 11.1 H, Neut % (Auto) 81.7 H, Lymph % (Auto) 10.5, [place] % (Auto) 7.3, Eos % (Auto) 0.0 L, Baso % (Auto) 0.2, Neut # (Auto) 9.5 H, Lymph # (Auto) 1.2, [place] # (Auto) 0.9, Eos # (Auto) 0.0, Baso # (Auto) 0.0, Sodium 134 L, Potassium 5.3 H, Chloride 95 L, Carbon Dioxide 35 H, Anion Gap 9.3, BUN 29 H D, Creatinine 1.30 H D, Estimated Creat Clear 42, Estimated GFR 41 L, Est GFR ( Amer) 49 L D, Glucose 107 H, Calcium 9.1, Magnesium 1.9 05/23/25 04:50: VBG pH 7.27 L, VBG pCO2 73.0 H, VBG pO2 41.2 H, VBG HCO3 32.8 H, VBG Total CO2 35.0 H, VBG O2 Saturation 68.3, VBG Base Excess 5.9 H, VBG Lactic Acid 2.5 H 05/23/25 07:42: Specimen Source R radial, O2 % 3lpm, ABG pH 7.36, ABG pCO2 56.0 H, ABG pO2 72.0 L, ABG HCO3 30.9 H, ABG Total CO2 32.6 H, ABG O2 Saturation 93, ABG Base Excess 5.4 H, Giancarlo Test Acceptable I & O for Last 24 hours: Intake & Output 05/20/25 05/21/25 05/22/25 05/23/25 11:59 11:59 11:59 11:59 Intake Total 1050 / 1050 710 / 710 1930 / 1930 Output Total 1750 / 1750 2250 / 2250 Balance 1050 / 1050 -1040 / -1040 -320 / -320 Weight 143 lb 142 lb 10.225 oz 144 lb Constitutional Constitutional: no acute distress *Routine Respiratory Exam Respiratory: Present decreased breath sounds and CTA bilaterally *Routine Cardiovascular Exam Cardiovascular: Present RRR and murmur; Absent gallop or rubs *Routine Extremities Exam Extremities: Absent edema Progress Note: A&P Assessment and plan (1) Acute hypercapnic respiratory failure: Status: Acute (2) Acute exacerbation of chronic obstructive pulmonary disease: Status: Acute (3) Chest pain: Status: Acute (4) NSTEMI (non-ST elevated myocardial infarction): Status: Acute (5) Stage 4 lung cancer: Status: Acute (6) Anxiety disorder: Status: Acute (7) Hypertension: Status: Acute (8) Hyperlipidemia: Status: Acute (9) Tobacco use disorder: Status: Acute Assessment and Plan Assessment and Plan for All Diagnoses:: 1. Chest pain with elevated troponin with concern for type I non-STEMI in a patient with known CAD and prior [place]/stenting -Limited echo this admit shows EF 60%, severe RV dilation, decreased RV function, mod TR, RVSP>60 mmHg -on ASA, lisinopril/HCT and statin -[facility] 05/22/2025 with placement of JUAN to LAD -on ASA and plavix 2. Acute hypercapnic respiratory failure, COPD, tobacco use -Currently on nocturnal BiPAP with daytime nasal cannula -IV doxycycline and methylprednisolone 3. History of stage IV lung cancer status post surgery, chemotherapy and radiation, in remission -History of metastasis to brain, status postradiation -Chest CTA this admission suggest chronic left pleural effusion with chronic postsurgical changes of left lobectomy. 4. Hyperlipidemia, on statin therapy -LDL 76 5. History of diabetes, currently controlled with diet -Hgb A1C 5.7 Stable from Cardiac standpoint. Home medication recommendations: Aspirin 81 mg daily Plavix 75 mg daily Lisinopril/HCTZ 20/25 mg daily Atorvastatin 40 mg daily Follow-up in our office in 1 to 2 weeks.
[2025-05-23] MEDS: FLUCONAZOLE 100MG TABLET 150 MG PO (09:50)
--- NOTE | 2025-05-23 10:38 | P.DS_ITS ---
<Statement entered by Jordy Akers MD - 05/23/25 13:52> Rounded on patient after nurse practitioner. Personally examined and interviewed patient. Agree with exam findings and care plan as documented. General Admission date:: 05/21/25 Discharge date: 05/23/25 HPI HPI HPI: Ms. Yeh is a 69-year-old female who presented to the emergency room today via EMS due to chest pain. Patient reports the chest pain is at the center of her chest, radiates to her back, is a 10/10 constant pain. Patient took 2 nitroglycerin tablets that reduce the pain to 8/10. She was given 1 nitro, aspirin 324 mg, fentanyl 25 mcg, and Zofran 4 mg and route to the hospital. Patient at baseline wears 3 L O2 nasal cannula. Upon arrival to the emergency department she rated the pain 5/10. Patient has a primary medical history of stage IV lung cancer with mets to the brain, currently in remission, COPD, tobacco use disorder, HTN, HLD, CAD, anxiety, and GERD. She denied shortness of breath, nausea, vomiting, diarrhea, abdominal pain, urinary symptoms, fever, cough, congestion. EKG was obtained by EMS which showed right BBB without ischemic changes. Workup in the emergency department was significant for VBG pH of 7.21, pCO2 89.4, lactic 1.8. WBC of 10.7, no anemia noted, BUN 21 with a creatinine of 1.00. BNP of 1020. Initial troponin less than 0.01. Chest CTA obtained which shows no evidence of PE or aortic dissection. Cardiomyopathy noted, left lobectomy noted. Previously described soft tissue mass in the left hemithorax is fluid density, and likely represents a chronic left pleural effusion. Hospital Course Hospital Course Hospital Course: Ms. Yeh is a 69-year-old female with a significant medical history of stage IV lung cancer with mets to the brain, posttreatment in remission, supplemental O2 use of 3 L nasal cannula, COPD, HTN, HLD, tobacco use. She presented to the emergency department with complaints of 10/10 chest pain. Was admitted to the stepdown unit for acute respiratory failure with hypoxia and hypercapnia, acute exacerbation of COPD, and NSTEMI. Hospital medicine was consulted for admission, I agreed to admit the patient. Plan of care as follows: #Acute respiratory failure with hypoxia and hypercapnia #Acute COPD exacerbation #History of stage IV lung cancer with brain mets, in remission ?Patient has history of stage IV lung cancer with mets to the brain, currently in remission. Has had previous left lobectomy. Follows with pulmonology outpatient for COPD. Chest CTA shows left lobe postop changes and chronic left pleural effusion. Patient currently wears 3 L nasal cannula at baseline. Initial VBG shows pH 7.21 with elevated CO2, patient was placed on BiPAP?repeat VBG shows worsening respiratory acidosis with a pH of 7.14 and continued elevated CO2. ?Patient continued to wear BiPAP throughout the evening and night, repeat VBG following morning reassuring showing a pH of 7.37, pCO2 47.1, pO2 39.0. Pulmonology consulted for further respiratory recommendations. Patient did not wear BiPAP overnight last night, ABG obtained day of discharge pH 7.36, pCO2 56.0, PaO2 72.0. Patient will need to be discharged with BiPAP for home use. Patient will need BiPAP due to her worsening COPD and lung function, not obstructive sleep apnea. Patient BiPAP settings will be 18/10 with 3 L. Educated on importance of compliance with BiPAP. ? Will continue 5-day course of doxycycline 100 mg twice daily, prednisone 40 mg to complete a 5-day course, patient should continue home Trelegy inhaler daily, DuoNebs 4?6 times daily as needed for shortness of air. Patient wears 3 L nasal cannula continuously at home, should continue with O2 supplementation. Patient should follow-up with pulmonology within 1 week. ? Patient initially drowsy on admission, improved after BiPAP use. Patient alert and oriented day of discharge, at bedside. Discussed pulmonary plan. They are agreeable. #NSTEMI, type I #HTN/HLD ?Patient initial complaint was chest pain, initially 10/10 patient received multiple rounds of sublingual nitroglycerin, morphine, fentanyl. After medication yesterday chest pain became mild, patient rating it a 2/10. Initial troponin negative less than 0.01, repeat 3-hour troponin elevated at 0.59, troponin continue to trend upward to 3.77. Cardiology consulted for further recommendations. Patient had echo 04/30/2025 which showed normal LV systolic function, severe RV dilation, markedly elevated RVSP greater than 60 mmHg. Limited echo obtained and shows no change from echo 3 weeks ago. ?Patient states she does have a history of LHC without JUAN. Not currently on anticoagulation. Initiated therapeutic Lovenox and aspirin 81 mg daily. Patient received aspirin 324 mg in the ED. ?EKG x 2 given persistent chest pain demonstrated sinus rhythm with RBBB without evidence of STEMI or acute ischemic changes. Patient was placed on continuous cardiac telemetry in stepdown unit for continued close monitoring. ?Patient had left heart cath yesterday afternoon which showed moderate distal left main stenosis, severe proximal LAD calcification and stenosis. Successful stenting to the proximal LAD/culprit lesion culprit stenosis reduced to 0% with 1 drug-eluting stent. Preserved EF, elevated LVEDP. Patient was initiated on Plavix 75 mg and aspirin 81 mg. ?Continuing cardiac medication lisinopril 20 mg?HCTZ 25 mg daily, atorvastatin 40 mg daily, #Tobacco use disorder: Patient states that she is a current everyday smoker. Counseled on smoking cessation. #Headache: patient did complain of headache this morning, states she takes Fioricet at home as needed for headaches/migraines. Ordered Fioricet every 6 hours as needed for headache-patient states headache resolved with medication. New medications at discharge: Plavix 75 mg daily Aspirin 81 mg daily Doxycycline 100 mg twice daily x 3 days Prednisone 40 mg daily x 3 days Follow-up with PCP, pulmonology, cardiology in approximately 1 week. Total time spent on discharge 38 minutes in counseling, documentation, chart review, and direct care with patient. Exam Data for Last 24 hours Vital signs and Labs for Last 24 Hours: Temp Pulse Resp BP Pulse Ox O2 Del Method O2 Flow Rate 97.9 F 93 H 20 114/62 96 Nasal Cannula 3 05/22/25 23:56 05/23/25 08:00 05/23/25 07:45 05/23/25 04:19 05/23/25 07:52 05/23/25 08:53 05/23/25 08:53 FiO2 30 05/22/25 05:45 Laboratory Results - last 24 hr 05/22/25 14:31: Activated Clotting Time 288 H* 05/23/25 04:38: WBC 11.7 H D, RBC 3.43 L, Hgb 10.1 L, Hct 33.0 L, MCV 96.2, MCH 29.4, MCHC 30.6 L, RDW 16.2, Plt Count 166, MPV 11.1 H, Neut % (Auto) 81.7 H, Lymph % (Auto) 10.5, [place] % (Auto) 7.3, Eos % (Auto) 0.0 L, Baso % (Auto) 0.2, Neut # (Auto) 9.5 H, Lymph # (Auto) 1.2, [place] # (Auto) 0.9, Eos # (Auto) 0.0, Baso # (Auto) 0.0, Sodium 134 L, Potassium 5.3 H, Chloride 95 L, Carbon Dioxide 35 H, Anion Gap 9.3, BUN 29 H D, Creatinine 1.30 H D, Estimated Creat Clear 42, Estimated GFR 41 L, Est GFR ( Amer) 49 L D, Glucose 107 H, Calcium 9.1, Magnesium 1.9 05/23/25 04:50: VBG pH 7.27 L, VBG pCO2 73.0 H, VBG pO2 41.2 H, VBG HCO3 32.8 H, VBG Total CO2 35.0 H, VBG O2 Saturation 68.3, VBG Base Excess 5.9 H, VBG Lactic Acid 2.5 H 05/23/25 07:42: Specimen Source R radial, O2 % 3lpm, ABG pH 7.36, ABG pCO2 56.0 H, ABG pO2 72.0 L, ABG HCO3 30.9 H, ABG Total CO2 32.6 H, ABG O2 Saturation 93, ABG Base Excess 5.4 H, Giancarlo Test Acceptable I & O for Last 24 hours: Intake & Output 05/20/25 05/21/25 05/22/25 05/23/25 23:59 23:59 23:59 23:59 Intake Total 1300 / 1300 1420 / 1660 970 / 970 Output Total 750 / 750 2150 / 2150 1400 / 1400 Balance 550 / 550 -730 / -490 -430 / -430 Weight 64.524 kg 64.7 kg 65.317 kg Microbiology Reports for the Last 24 Hours: Microbiology 05/22/25 01:38 Urine,Clean Catch Urine Culture - Final Multiple organisms, suggests contamination. Constitutional Constitutional: no acute distress, average body habitus, chronically ill appearing and cooperative *Routine HEENT Exam Head: Present normocephalic Eye: Present EOMI ENT: Present mucous membranes moist *Routine Neck Exam Neck: Present supple *Routine Respiratory Exam Respiratory: Present wheezes and normal respiratory effort; Absent respiratory distress or crackles *Routine Cardiovascular Exam Cardiovascular: Present RRR *Routine Abdominal Exam Abdominal: Present soft and normoactive bowel sounds; Absent tenderness or distended *Routine Rectal Exam Patient deferred: visual exam *Routine Exam Patient deferred: external exam *Routine Extremities Exam Extremities: Present full ROM; Absent cyanosis, clubbing or edema *Routine Skin Exam Skin: Present intact, dry and warm; Absent rash *Routine Neurological Exam Neurological: Present alert, oriented X3, vision grossly intact, hearing grossly intact and normal speech Routine Psychiatric Exam Psychiatric: Present normal affect and cooperative Results Data Completed and Pending Labs on day of discharge: Labs from last 24 hours 05/23/25 05/23/25 05/23/25 07:42 04:50 04:38 WBC 11.7 H D RBC 3.43 L Hgb 10.1 L Hct 33.0 L MCV 96.2 MCH 29.4 MCHC 30.6 L RDW 16.2 Plt Count 166 MPV 11.1 H Neut % (Auto) 81.7 H Lymph % (Auto) 10.5 [place] % (Auto) 7.3 Eos % (Auto) 0.0 L Baso % (Auto) 0.2 Neut # (Auto) 9.5 H Lymph # (Auto) 1.2 [place] # (Auto) 0.9 Eos # (Auto) 0.0 Baso # (Auto) 0.0 Activated Clotting Time Specimen Source R radial O2 % 3lpm ABG pH 7.36 ABG pCO2 56.0 H ABG pO2 72.0 L ABG HCO3 30.9 H ABG Total CO2 32.6 H ABG O2 Saturation 93 ABG Base Excess 5.4 H Giancarlo Test Acceptable VBG pH 7.27 L VBG pCO2 73.0 H VBG pO2 41.2 H VBG HCO3 32.8 H VBG Total CO2 35.0 H VBG O2 Saturation 68.3 VBG Base Excess 5.9 H VBG Lactic Acid 2.5 H Sodium 134 L Potassium 5.3 H Chloride 95 L Carbon Dioxide 35 H Anion Gap 9.3 BUN 29 H D Creatinine 1.30 H D Estimated Creat Clear 42 Estimated GFR 41 L Est GFR ( Amer) 49 L D Glucose 107 H Calcium 9.1 Magnesium 1.9 05/22/25 14:31 WBC RBC Hgb Hct MCV MCH MCHC RDW Plt Count MPV Neut % (Auto) Lymph % (Auto) [place] % (Auto) Eos % (Auto) Baso % (Auto) Neut # (Auto) Lymph # (Auto) [place] # (Auto) Eos # (Auto) Baso # (Auto) Activated Clotting Time 288 H* Specimen Source O2 % ABG pH ABG pCO2 ABG pO2 ABG HCO3 ABG Total CO2 ABG O2 Saturation ABG Base Excess Giancarlo Test VBG pH VBG pCO2 VBG pO2 VBG HCO3 VBG Total CO2 VBG O2 Saturation VBG Base Excess VBG Lactic Acid Sodium Potassium Chloride Carbon Dioxide Anion Gap BUN Creatinine Estimated Creat Clear Estimated GFR Est GFR ( Amer) Glucose Calcium Magnesium DS: Diagnosis Discharge Diagnosis (1) Acute hypercapnic respiratory failure: Status: Acute Code(s): J96.02 - Acute respiratory failure with hypercapnia (2) Acute exacerbation of chronic obstructive pulmonary disease: Status: Acute Code(s): J44.1 - Chronic obstructive pulmonary disease with (acute) exacerbation (3) Chest pain: Status: Acute Code(s): R07.9 - Chest pain, unspecified Qualifiers: Chest pain type: unspecified Qualified Code(s): R07.9 - Chest pain, unspecified (4) NSTEMI (non-ST elevated myocardial infarction): Status: Acute Code(s): I21.4 - Non-ST elevation (NSTEMI) myocardial infarction (5) Stage 4 lung cancer: Status: Acute Code(s): C34.90 - Malignant neoplasm of unspecified part of unspecified bronchus or lung Qualifiers: Laterality: left Qualified Code(s): C34.92 - Malignant neoplasm of unspecified part of left bronchus or lung (6) Anxiety disorder: Status: Acute Code(s): F41.9 - Anxiety disorder, unspecified (7) Hypertension: Status: Acute Code(s): I10 - Essential (primary) hypertension (8) Hyperlipidemia: Status: Acute Code(s): E78.5 - Hyperlipidemia, unspecified Qualifiers: Hyperlipidemia type: mixed hyperlipidemia Qualified Code(s): E78.2 - Mixed hyperlipidemia (9) Tobacco use disorder: Status: Acute Code(s): F17.200 - Nicotine dependence, unspecified, uncomplicated Meds Home Medications and Allergies Home Medications ?Medication ?Instructions ?Recorded ?Confirmed ?Type atorvastatin 40 mg tablet 40 mg PO DAILY 09/21/1804/24 History lisinopril 20 1 tab PO DAILY 09/21/1804/24 History mg-hydrochlorothiazide 25 mg tablet (Zestoretic) omeprazole 20 mg capsule,delayed 20 mg PO DAILY 05/21/25 History release alprazolam 0.5 mg tablet (Xanax) 0.5 mg PO HSP PRN Sle ep 09/22/22 05/21/25 History azelastine 137 mcg (0.1 %) nasal 2 spray intranasal HS 90 days #30 05/08/25 05/21/25 Rx spray mL fluticasone propionate 50 2 spray intranasal DAILY 90 days 05/08/25 05/21/25 Rx mcg/actuation nasal #16 grams spray,suspension (Flonase Allergy Relief) acetylcysteine 500 mg capsule 500 mg PO DAILYP PRN Cou gh 05/21/25 05/21/25 History albuterol sulfate 90 mcg/actuation 2 inh inhalation QI DP PRN 05/21/25 05/21/25 History aerosol inhaler (Ventolin HFA) shortness of breath or wheezing fluticasone fur. 100 mcg-umeclid 1 inh inhalation CHETAN Y 05/21/25 05/21/25 History 62.5 mcg-vilant 25 mcg inhalat.powder (Trelegy Ellipta) ipratropium 0.5 mg-albuterol 3 mg 3 ml inhalation QIDP PRN shortness 05/21/25 05/21/25 History (2.5 mg base)/3 mL nebulization of breath or wheezing soln montelukast 10 mg tablet 10 mg PO HS 05/21/25 5 History prednisone 2.5 mg tablet 2.5 mg PO DAILY 05/21/25 History aspirin 81 mg tablet,delayed 81 mg PO DAILY 30 days #3 0 tabs 05/23/25 Rx release clopidogrel 75 mg tablet 75 mg PO DAILY 30 days #30 t abs 05/23/25 Rx doxycycline hyclate 100 mg tablet 100 mg PO DAILY #6 t abs 05/23/25 Rx prednisone 20 mg tablet 40 mg (2 x 20 mg) PO DAILY # 3 tabs 05/23/25 Rx New Prescriptions to Start Prescriptions: aspirin Nuria Irby clopidogrel Nuria Irby doxycycline hyclate Nuria Irby prednisone Nuria Irby Allergies Allergy/AdvReac Type Severity Reaction Status Date / Time pembrolizumab (From Keytruda) Allergy Severe Difficulty Verified 05/08/25 15:13 Breathing diltiazem (DILTIAZEM) Allergy Unknown UNKNOWN Verified 05/08/25 15:13 levofloxacin (From LEVAQUIN) Allergy Unknown NA-NAUSEA/V Verified 05/08/25 15:13 OMITING nadolol (From CORGARD) Allergy Unknown UNKNOWN Verified 05/08/25 15:13 oxycodone (From ROXICET) Allergy Unknown UNKNOWN Verified 05/08/25 15:13 umeclidinium (From Anoro AdvReac Intermediate Chest Pain Verified 05/08/25 15:13 Ellipta) vilanterol (From Anoro AdvReac Intermediate Chest Pain Verified 05/08/25 15:13 Ellipta) morphine AdvReac Hallucinati Verified 05/08/25 15:13 ng olodaterol (From Stiolto AdvReac Chest Pain Verified 05/08/25 15:13 Respimat) tiotropium (From Stiolto AdvReac Chest Pain Verified 05/08/25 15:13 Respimat) Discharge Plan Disposition Patient Disposition: Home, Self-Care Condition: Fair Discharge Order Discharge Orders: Discharge Order (Routine); Ordered 05/23/25 Ordered By: Nuria Irby Follow up Plan Follow up with: Ridge Irby PA [Physician Medical Receptionist, Cardiology] - 05/31/25 10:00 am Liya Moreira MD [Physician, Pulmonology] - 05/31/25 1:00 pm Heidi Rivers APRN [Primary Care Provider, Medical] - 05/28/25 12:00 pm Prescriptions/Medication Reconciliation: New clopidogrel 75 mg Tablet 75 mg PO DAILY 30 Days Qty: 30 0RF aspirin 81 mg Tablet,Delayed Release (Dr/Ec) 81 mg PO DAILY 30 Days Qty: 30 0RF doxycycline hyclate 100 mg tablet 100 mg PO DAILY Qty: 6 0RF prednisone 20 mg tablet 40 mg PO DAILY Qty: 3 0RF Continued lisinopril-hydrochlorothiazide [Zestoretic] 20-25 mg tablet 1 tab PO DAILY omeprazole 20 mg capsule,delayed release(DR/EC) 20 mg PO DAILY atorvastatin 40 mg tablet 40 mg PO DAILY alprazolam [Xanax] 0.5 mg tablet 0.5 mg PO HSP PRN (Reason: Sleep) fluticasone propionate [Flonase Allergy Relief] 50 mcg/actuation spray,suspension 2 spray intranasal DAILY 90 Days Qty: 16 2RF Rx Instructions: administer into each nostril azelastine 137 mcg (0.1 %) spray,non-aerosol 2 spray intranasal HS 90 Days Qty: 30 2RF Rx Instructions: administer into each nostril prednisone 2.5 mg tablet 2.5 mg PO DAILY ipratropium-albuterol 0.5 mg-3 mg(2.5 mg base)/3 mL solution for nebulization 3 ml inhalation QIDP PRN (Reason: shortness of breath or wheezing) montelukast 10 mg tablet 10 mg PO HS albuterol sulfate [Ventolin HFA] 90 mcg/actuation HFA aerosol inhaler 2 inh inhalation QIDP PRN (Reason: shortness of breath or wheezing) acetylcysteine 500 mg capsule 500 mg PO DAILYP PRN (Reason: Cough) Trelegy Ellipta 100-62.5-25 mcg blister with device 1 inh inhalation DAILY Discontinued aspirin 325 MG tablet 325 mg PO DAILY Problem Reconciliation Problems Reviewed?: Yes Patient Discharge Instructions ACTIVITY: Continue current activity DIET: continue same diet Patient Instructions: Chronic Obstructive Pulmonary Disease, Coronary Artery Disease, Nicotine Addiction, Reasons to Quit Smoking Print Language: E[place]re[place] Providers Primary Care Provider: Heidi Rivers Admit Provider: Jordy Akers Attending Provider: Jordy Akers
--- NOTE | 2025-05-23 12:25 | CARE MANAGER ---
Patient will require a Bi-PAP @ discharge per MD. Patient gave verbal consent for [facility] to supply DME. Order and clinical faxed. Patient is planning to stop by [facility] on the way home to have mask fitting and to shrimp picker Bi-PAP. Per Dr. Moreira, settings are to be 18/10 and 3L is what patient is on at baseline O2.
--- NOTE | 2025-05-25 10:18 | SW/DCPLANNER ---
Spoke with patient's on the phone. Patient's stated that she is doing good. Patient's stated that they are aware of her upcoming appointments. Patient's stated that they got their medicine and it was delivered to their room. Patient's stated that they have no concerns or questions at this time. Sabrina SIMS [employer]
== END 2025-05-23 12:44 | disposition home or self-care (01) | DRG 321 ==
LOC: ER 11:57 → ICU 12:02
PROVIDERS: Internal Medicine; Internal Medicine Pulmonary Disease; Physician Assistant; Admitting Provider Internal Medicine Adolescent Medicine; Emergency Provider Student in an Organized Health Care Education/Training Program; PCP Nurse Practitioner Family; Visit Provider Internal Medicine Adolescent Medicine
PROC: 4A023N7 Measurement of Cardiac Sampling and Pressure, Left Heart, Percutaneous Approach (ICD-10-PCS; CPT 93452; principal; 2025-05-22 10:50)
DX: I21.4 Non-ST elevation (NSTEMI) myocardial infarction (principal); J96.01 Acute respiratory failure with hypoxia; J96.02 Acute respiratory failure with hypercapnia; J44.1 Chronic obstructive pulmonary disease with (acute) exacerbation; I43 Cardiomyopathy in diseases classified elsewhere; J91.8 Pleural effusion in other conditions classified elsewhere; I25.10 Atherosclerotic heart disease of native coronary artery without angina pectoris; Z88.5 Allergy status to narcotic agent; Z88.8 Allergy status to other drugs, medicaments and biological substances; Z86.73 Personal history of transient ischemic attack (TIA), and cerebral infarction without residual deficits; F17.200 Nicotine dependence, unspecified, uncomplicated; F41.9 Anxiety disorder, unspecified; K21.9 Gastro-esophageal reflux disease without esophagitis; Z90.2 Acquired absence of lung [part of]; E11.9 Type 2 diabetes mellitus without complications; I11.9 Hypertensive heart disease without heart failure; I25.2 Old myocardial infarction; E78.2 Mixed hyperlipidemia; Z79.60 Long term (current) use of unspecified immunomodulators and immunosuppressants; Z92.3 Personal history of irradiation; R51.9 Headache, unspecified
CPT/HCPCS: 36415; 36600; 71045; 71275; 80048; 80053; 80061; 81001; 82803; 83036; 83605; 83690; 83735; 83880; 84443; 84484; 85025; 85347; 85378; 86803; 87086; 87389; 87631; 93005; 93308; 94640; 94760; 94761; 99152; 99153; 99285; C1725; C1769; C1874; C1887; J0780; J1200; J1644; J1650; J2003; J2250; J2270; J2919; J3010; J3475; J7040; J7050; J7120; Q9967